=== PATIENT | female | born 1985 | race Caucasian/White ===

== ENCOUNTER 2022-09-01 16:30 | Outpatient (REF) | payer OTHER, SELFPAY | END 2022-09-01 16:31 | disposition home or self-care (01) | LOC: LAB 16:30 | PROVIDERS: Visit Provider Obstetrics & Gynecology | DX: N89.8 Other specified noninflammatory disorders of vagina (principal) | CPT/HCPCS: 88305 ==

== ENCOUNTER 2022-09-01 20:27 | Outpatient (REF) | payer OTHER, SELFPAY ==
[2022-09-10 13:08] LABS: Age Gdln ACOG Testing Note (.); HPV Aptima Negative (Negative); IGP, Aptima HPV, rfx 16/18,45 Note (.)
== END 2022-09-01 20:28 | disposition home or self-care (01) ==
LOC: LAB 20:27
PROVIDERS: Visit Provider Physician Assistant
DX: Z01.419 Encounter for gynecological examination (general) (routine) without abnormal findings (principal)
CPT/HCPCS: 87624; G0145

== ENCOUNTER 2023-10-20 19:05 | Outpatient (REF) | payer OTHER, SELFPAY ==
--- OUTSIDE RECORDS SUMMARY | 2023-10-20 19:11 | XMS_ITS | CCD ---
Author Organization [facility] Care Team Providers Care Machine Coremaker Name Role Phone Rafaela Arguello Unavailable [place] [id number], [facility] Unavailable Unavailable Rafaela Arguello Unavailable Unavailable Zackary Gomez E Unavailable Unavailable Rafaela Arguello E Unavailable Unavailable Rafaela Arguello E Unavailable Unavailable Zackary Gomez E Unavailable Unavailable Rafaela Arguello E Unavailable Unavailable Unavailable KRISTEN, DR DRIVER Admitting Unavailable KRISTEN, DR DRIVER Primary Care Unavailable KRISTEN, DR DRIVER Attending Unavailable KRISTEN, DR DRIVER Consulting Unavailable NarNoemi strauss Consulting Unavailable KRISTEN, DR DRIVER Admitting Unavailable KRISTEN, DR DRIVER Attending Unavailable KRISTEN, DR DRIVER Consulting Unavailable REQUEST, DR NONE LISTED Primary Care Unavaila ble KRISTEN, DR DRIVER Primary Care Unavailable KRISTEN, DR DRIVER Admitting Unavailable KRISTEN, DR DRIVER Attending Unavailable KRISTEN, DR DRIVER Consulting Unavailable REQUEST, DR NONE LISTED Primary Care Unavaila ble KRISTEN, DR DRIVER Admitting Unavailable KRISTEN, DR DRIVER Attending Unavailable KRISTEN, DR DRIVER Consulting Unavailable AGUBOSIM, ARYA Consulting Unavailable BEL BRICENO Consulting Unavailable DORKOSKGRAZYNA PISANO Consulting Unavailable KRISTEN, DR DRIVER Admitting Unavailable KRISTEN, DR DRIVER Attending Unavailable KRISTEN, DR DRIVER Consulting Unavailable KRISTEN, DR DRIVER Primary Care Unavailable Danielle Infante Primary Care Provider DO Danielle Infante Primary Care Provider [phone] DO Kp Alvares Attending Provider [phone] Hema, Ms. Rafaela Schultz Referring Aisha Arguello, Ms. Rafaela Schultz Primary Care Aisha Arguello, Ms. Rafaela Schultz Attending Aisha Arguello, Ms. Rafaela Schultz Primary Care Aisha Arguello, MsJonathan Schultz Attending Aisha Arguello, MsJonathan Schultz Referring Azaeli labtaryn Arguello, MsJonathan Schultz Referring Azaeli labtaryn Arguello, MsJonathan Schultz Primary Care Aisha Arguello, Ms. Rafaela Schultz Attending Aisha Arguello, MsJonathan Schultz Referring Aisha Arguello, MsJonathan Schultz Primary Care Aisha Aguilar, Luz Coombs Attending Unavailable Hema, Ms. Rafaela Schultz Primary Care Aisha Aguilar, Luz Malvin Attending Unavailable Lauren, Luz Malvin Referring Unavailable Bolivar Sherman Unavailable DO Danielle Infante Primary Care Provider [phone] SCOTT Sherman Attending Provider KAROLINA MAN Referring Unavailable DONOVAN, KAROLINA Cota Primary Care Unavailable DONOVAN, KAROLINA Cota Referring Unavailable DONOVAN, KAROLINA Cota Primary Care Unavailable Donovan SORIA, Karolina Cota Primary Care Provider Jhonny Lee MD Unavailable MATT STAPLETON Attending Unavailable Donovan , Karolina Cota Unavailable KAROLINA MAN Attending Unavailable DONOVAN, KAROLINA Cota Primary Care Unavailable LUIS MANUEL, JHONNY Schroeder Attending Unavailable KAROLINA MAN Referring Unavailable DONOVAN, KAROLINA Cota Primary Care Unavailable DONOVAN, KAROLINA Cota Attending Unavailable DONOVAN, KAROLINA Cota Primary Care Unavailable LUIS MANUEL, JHONNY Schroeder Attending Unavailable DONOVAN, KAROLINA Cota Primary Care Unavailable JHONNY LEE Attending Unavailable KAROLINA MAN Primary Care Unavailable Danielle Infante DO Primary Care [facility] ROULA BLEDSOE Attending Unavailable DANIELLE INFANTE Primary Care LAYNE Reyes Attending Provider NO FAMILY, PHYSICIAN Primary Care Unavailable Swetha Andersen Attending Unavailable Swetha Andersen Admitting Unavailable Allergies Allergy Classification Reported Allergen(s) Allergy Type Date of Onset Reaction(s) Facility Cephalosporins (antibiotic) (1 source) loracarbef Drug Allergy [facility] Work Phone: Latex (1 source) natural latex rubber Substance Allergy [facility] Work Phone: NSAIDs (1 source) NSAIDs Drug Allergy [facility] Work Phone: (20 sources) loracarbef; Translations: [loracarbef] Drug Allergy 3 Unknown [facility] 2 Repository (20 sources) natural latex rubber; Translations: [LATEX] Allergy to substance (finding) 3 Rash [facility] 2 Repository (20 sources) NSAIDs; Translations: [NSAIDs] Allergy to drug (finding) Unknown [facility] Work Phone: (20 sources) Animal dander - Cats Allergy to substance (finding) [facility] [facility] Work Phone: (2 sources) Latex Drug allergy (disorder) [facility] Repository (1 source) loracarbef Drug Allergy [facility] Repository (3 sources) NSAIDs; Translations: [NSAIDS (NON-STEROIDAL ANTI-INFLAMMATO RY DRUG)] Drug allergy (disorder) 7 [facility] Repository (6 sources) Non-steroidal anti-inflammato ry agent Propensity to adverse reactions to drug 7 Other: See Comments, Other [facility] (7 sources) Latex Propensity to adverse reactions 3 Unknown, Rash [facility]ev[facility] Other (8 sources) CAT DANDER; Translations: [CAT DANDER] Propensity to adverse reactions to drug (disorder) 3 Unknown, Itching [facility] 2 Repository (3 sources) NSAIDS (Non-Steroidal Anti-Inflamma; Translations: [NSAIDS (Non-Steroidal Anti-Inflamma] Allergy to substance 4 Itching [facility] (1 source) Latex Drug allergy (disorder) 4 [facility] Repository Medications Current Medications Medication Drug Class(es) Dates Sig (Normalized) Sig (Original) buPROPion (20 sources) Aminoketone Start: 09-05-2023 Bupropion Hcl Active MG PO September 05, 2023 12:00am Start: 10-08-2021 End: 08-31-2023 take 1 tablet by mouth once daily in the morning buPROPion XL (Wellbutrin XL) 150 mg 24 hr tablet Indications: Anxiety Take 1 tablet (150 mg) by mouth once daily in the morning. Do not crush, chew, or split. 90 tablet 3 03/04/2023 08/31/2023 Active Start: 10-08-2021 take 1 tablet by didi th once daily buPROPion HCl ER (XL) 300 MG Oral Tablet Extended Release 24 Hour TAKE 1 TABLET BY MOUTH EVERY DAY Quantity: 90 Refills: 2 Ordered: 17-Mar-2022 Rafaela Mejía Start : 08-Oct-2021 Active take 1 tablet by didi th twice daily Wellbutrin 100 MG 1 tablet Orally Twice a day Active cephalexin 500 mg oral capsule (2 sources) Cephalosporin Antibacterial Start: 09-05-2023 take 500 mg by mouth twice daily Cephalexin Active 500 MG PO Twice daily 14 7 September 05, 2023 12:00am cholecalciferol 0.05 mg oral capsule (6 sources) Vitamin D take 1 capsule by mouth in the morning cholecalciferol (Vitamin D-3) 50 mcg (2,000 unit) capsule Take 1 capsule (50 mcg) by mouth early in the morning.. Active 24 hr dexmethylphenidate hydrochloride 10 mg extended release oral capsule (20 sources) Central Nervous System Stimulant Start: 09-05-2023 Dexmethylphenidate Active MG PO September 05, 2023 12:00am Start: 02-19-2023 End: 10-20-2023 take 1 capsule by mouth once daily dexmethylphenidate XR (FOCALIN XR) 10 mg biphasic capsule TAKE 1 CAPSULE BY MOUTH EVERY DAY DO NOT CRUSH/CHEW/SPLIT 0 08/07/2023 Active Start: 02-19-2023 End: 10-20-2023 take 1 tablet by mouth twice daily dexmethylphenidate (Focalin) 5 mg tablet Indications: Attention deficit hyperactivity disorder (ADHD), predominantly inattentive type Take 1 tablet (5 mg) by mouth 2 times a day. 1-0 at 3 pm, and 6 pm as needed. Do not start before June 25, 2023. 60 tablet 06/25/2023 07/22/2023 Discontinued (Reorder) drospirenone / Ethinyl Estradiol / levomefolate (4 sources) Progestin, Estrogen Start: 07-18-2010 End: 03-04-2023 take 1 tablet by mouth once daily drospirenone-e.estradioL-lm.FA (Lalitha Roberts) 3-0.02-0.451 mg (24) (4) Take 1 tablet by mouth once daily. 0 07/18/2010 03/04/2023 Discontinued (Med List Cleanup) Start: 07-18-2010 take 1 tablet by didi th once daily drospirenone-e.estradioL-lm.FA (Lalitha Roberts) 3-0.02-0.451 mg (24) (4) Take 1 tablet by mouth once daily. 0 07/18/2010 Active Start: 07-18-2010 take 1 tablet by didi th once daily drospir-eth estra-levomefol Ca (BEYAZ) 3-0.02-0.451 mg (24) ORAL Tab Take 1 tablet by mouth once daily. 0 07/18/2010 Active Comment on above: Take 1 tablet by didi th once daily. MULTI-VITAMIN ORAL (2 sources) MULTI-VITAMIN OR AL Take by mouth. 0 Active Comment on above: Take by mouth. predniSONE 20 mg oral tablet (1 source) Start: 3 take 1 tablet by mouth every twelve hours predniSONE 20 MG 1 tablet Orally twice a day for 7 Jun, Active traZODone hydrochloride 50 mg oral tablet (20 sources) Serotonin Reuptake Inhibitor Start: 2 End: 4 take 1 tablet by mouth every twenty-four hours as needed traZODone (DESYREL) 50 mg tablet Take 50 mg by mouth at bedtime as needed. 0 10/02/2021 Active Comment on above: Take 50 mg by mouth at bedtime as needed. Completed/Discontinued Medications Medication Drug Class(es) Dates Sig (Normalized) Sig (Original) albuterol 0.83 mg/ml inhalant solution (4 sources) beta2-Adrenergic Agonist Start: 05-16-2019 Albuterol Sulfate (2.5 MG/3ML) 0.083% Inhalation Nebulization Solution USE 1 UNIT DOSE EVERY 4-6 HOURS NEEDED FOR WHEEZING . Quantity: 1 Refills: 3 Rafaela Bridges Start : 16-May-2019 Active 30 x 3 ML Plas Cont Start: 05-16-2019 take 1-2 puff(s) by inhalation every four to six hours as needed Ventolin HFA 108 (90 Base) MCG/ACT Inhalation Aerosol Solution INHALE 1 TO 2 PUFFS EVERY 4 TO 6 HOURS NEEDED. Quantity: 1 Refills: 4 Rafaela Bridges Start : 16-May-2019 Active 8 GM Inhaler azithromycin 250 mg oral tablet (2 sources) Macrolide Antimicrobial Start: 05-16-2019 take 2 tablets by mouth once daily, then take 1 tablet by mouth, then take 1 tablet by mouth once daily Azithromycin 250 MG Oral Tablet TAKE 2 TABLETS ON DAY 1 THEN TAKE 1 TABLET A DAY FOR 4 DAYS. Quantity: 1 Refills: 0 Rafaela Bridges Start : 16-May-2019 Active 6 Tablet Pack Probiotic CAPS (3 sources) Probiotic CAPS Refills: 0 Active Multiple Vitamins Oral Tablet (4 sources) Start: 07-17-2017 take 1 tablet by mouth once daily Multiple Vitamins Oral Tablet TAKE 1 TABLET DAILY. Refills: 0 Start : 17-Jul-2017 Active Multiple Vitamins Oral Tablet (20 sources) Start: 07-17-2017 take 1 tablet by mouth once daily Multiple Vitamins Oral Tablet TAKE 1 TABLET DAILY. Quantity: 0 Refills: 0 Ordered: 17-Jul-2017 DO Start : 17-Jul-2017 Active Start: 07-17-2017 take 1 tablet by didi th once daily Multiple Vitamins Oral Tablet TAKE 1 TABLET DAILY. 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] Episodic Anxiety disorders (20 sources) Anxiety; Translations: [Anxiety state, unspecified] Onset: 11-28-2022 11-28-2022 Chronic Attention-deficit, conduct, and disruptive behavior disorders (3 sources) Attention deficit hyperactivity disorder, predominantly inattentive type; Translations: [Attention-deficit hyperactivity disorder, predominantly inattentive type] 02-19-2023 Chronic Attention-deficit, conduct, and disruptive behavior disorders (2 sources) Attention-deficit hyperactivity disorder, predominantly inattentive type; Translations: [Attention-deficit hyperactivity disorder, predominantly inattentive type] Onset: 07-22-2023 Chronic Endometriosis (1 source) Endometriosis of pelvic peritoneum; Translations: [ENDOMETRIOSIS OF 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 Chronic Esophageal disorders (5 sources) Gastroesophageal reflux disease; Translations: [Gastro-esophageal reflux disease without esophagitis] Onset: 08-28-2022 02-10-2023 Chronic Melanomas of skin (13 sources) H/O Malignant melanoma; Translations: [Personal history of malignant melanoma of skin] Onset: 09-15-2019 Episodic Miscellaneous mental health disorders (1 source) Globus sensation; Translations: [Other somatoform disorders] Chronic Nutritional deficiencies (20 sources) Vitamin D deficiency; Translations: [Unspecified vitamin D deficiency] Onset: 11-28-2022 11-28-2022 Chronic Other and unspecified benign neoplasm (7 sources) Fibroadenoma of breast; Translations: [Benign neoplasm of breast] Episodic Other and unspecified benign neoplasm (8 sources) Multiple benign melanocytic nevi ; Translations: [Melanocytic nevi, unspecified] Onset: 09-15-2019 Episodic Other and unspecified benign neoplasm (2 sources) Senile angioma; Translations: [Hemangioma of skin and subcutaneous tissue] Episodic Other and unspecified benign neoplasm (2 sources) Dermatofibroma; Translations: [Other benign neoplasm of skin, unspecified] Episodic Other and unspecified benign neoplasm (1 source) Lipoma (clinical); Translations: [Lipoma] Episodic Other circulatory disease (5 sources) History of clinical finding in subject; Translations: [Personal history of other diseases of circulatory system] Episodic Other connective tissue disease (1 source) Pain in right foot Episodic Other female genital disorders (20 sources) Female deep pain on intercourse; Translations: [Dyspareunia] Onset: 11-28-2022 11-28-2022 Chronic Other female genital disorders (5 sources) Unspecified dyspareunia; Translations: [UNSPECIFIED DYSPAREUNIA] Onset: 07-11-2021 Chronic Other nervous system disorders (3 sources) Disorder of brain; Translations: [Encephalopathy, unspecified] 02-19-2023 Chronic Other nutritional; endocrine; and metabolic disorders (2 sources) Overweight; Translations: [Overweight] Chronic Other nutritional; endocrine; and metabolic disorders (1 source) Obese class I; Translations: [Body mass index (BMI) 33.0-33.9, adult] Chronic Other skin disorders (2 sources) Lentiginosis; Translations: [Other melanin hyperpigmentation] Episodic Other upper respiratory disease (4 sources) Chronic nasopharyngitis; Translations: [Chronic nasopharyngitis] Onset: 08-28-2022 02-10-2023 Chronic Other upper respiratory infections (1 source) Acute pharyngitis; Translations: [Sore throat (viral) NOS] Episodic Residual codes; unclassified (2 sources) Insomnia co-occurrent and due to medical condition; Translations: [Insomnia due to medical condition] 04-27-2023 Chronic Residual codes; unclassified (1 source) Acquired absence of other specified parts of digestive tract; Translations: [ACQ ABSENCE OTH PART DIGESTV TRACT] Onset: 07-17-2021 Episodic Residual codes; unclassified (1 source) Generalized aches and pains; Translations: [Body aches] Episodic Spondylosis; intervertebral disc disorders; other back problems (20 sources) Neck pain; Translations: [Cervicalgia] Episodic Urinary tract infections (4 sources) Urinary tract infectious disease; Translations: [Urinary tract infection, site not specified] 09-05-2023 Episodic Past or Other Problems Problem Classification Problem Date Documented Da te Episodic/Chronic Abdominal pain (20 sources) Pain in female pelvis; Translations: [Unspecified symptom associated with female genital organs] Onset: 06-21-2021 Episodic Acute bronchitis (20 sources) Acute bronchitis; Translations: [Acute bronchitis] Onset: 11-28-2022 11-28-2022 Episodic Diseases of mouth; excluding dental (4 sources) Sialoadenitis; Translations: [Sialoadenitis, unspecified] Onset: 08-28-2022 02-10-2023 Episodic E Codes: Other specified and classifiable (7 sources) Exposure to tanning bed, sequela; Translations: [Late effects of other accidents] Onset: 09-15-2019 Episodic Genitourinary symptoms and ill-defined conditions (20 sources) Increased frequency of urination; Translations: [Urinary frequency] Onset: 09-06-2021 11-28-2022 Episodic Neoplasms of unspecified nature or uncertain behavior (20 sources) 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; Translations: [Neoplasm of uncertain behavior of lip, oral cavity, and pharynx] Onset: 11-28-2022 11-28-2022 Episodic Nonmalignant breast conditions (20 sources) Breast lump; Translations: [Lump or mass in breast] Onset: 11-28-2022 Episodic Other and unspecified benign neoplasm (6 sources) Skin lesion; Translations: [Hemangioma of skin and subcutaneous tissue] Onset: 09-15-2019 09-15-2019 Episodic Other and unspecified benign neoplasm (6 sources) Fibroadenoma of right breast; Translations: [Benign neoplasm of right breast] Onset: 11-28-2022 11-28-2022 Episodic Other connective tissue disease (17 sources) Pelvic floor dysfunction; Translations: [Pelvic muscle wasting] Onset: 11-28-2022 11-28-2022 Episodic Other connective tissue disease (1 source) Other specified disorders of muscle; Translations: [Other specified disorders of muscle] Onset: 09-06-2021 Episodic Other nutritional; endocrine; and metabolic disorders (20 sources) Overweight; Translations: [Overweight] Onset: 11-28-2022 11-28-2022 Episodic Other screening for suspected conditions (not mental disorders or infectious disease) (20 sources) Mammography abnormal; Translations: [Abnormal mammogram, unspecified] Onset: 03-25-2021 Episodic Other skin disorders (20 sources) Mass of neck; Translations: [Swelling, mass, or lump in head and neck] Onset: 11-28-2022 11-28-2022 Episodic Other skin disorders (20 sources) Lesion of face; Translations: [Unspecified disorder of skin and subcutaneous tissue] Onset: 11-28-2022 11-28-2022 Episodic Other skin disorders (14 sources) Localized swelling, mass and lump, right upper limb; Translations: [Mass of right axilla] Onset: 11-28-2022 11-28-2022 Episodic Other skin disorders (6 sources) Solar lentigo; Translations: [Other melanin hyperpigmentation] Onset: 09-15-2019 09-15-2019 Episodic Other skin disorders (6 sources) Skin tag; Translations: [Other hypertrophic disorders of the skin] Onset: 09-15-2019 09-15-2019 Episodic Other skin disorders (4 sources) Lesion of face; Translations: [Facial lesion] Residual codes; unclassified (20 sources) Insomnia; Translations: [Insomnia, unspecified] Onset: 11-28-2022 11-28-2022 Episodic Skin and subcutaneous tissue infections (20 sources) Cellulitis; Translations: [Cellulitis and abscess of unspecified sites] Onset: 11-28-2022 11-28-2022 Episodic Unclassified (6 sources) Onset: 12-03-2022 Resolved: 07-22-2023 12-03-2022 NEGATED: Highlighted row has not occurred!Residual codes; unclassified (20 sources) Disease Episodic Results Test Name Value Interpretation Reference Range Facility Urine Cultureon 09-05-2023 Bacteria identified Cx Nom (U) <9,000 colonies/ml mixed bacterial skin contaminants 2 Days PERFORMED BY: [place] [address] PATHOLOGIST PICKED EDGE SEWING MACHINE OPERATOR DAVID CHILD M.D. Normal [facility] Comment on above: Performed By: #### C UU #### [address] CNOVon 09-01-2023 CNOV Office Visit (AMDERM ) MICHAEL WELLER ([id number]) 1985 F Date Time Provider Department 09/01/23 11:30 AM ROULA BLEDSOE AMDERM During your visit today, we recorded the following information about you: Roula Bledsoe APRN.CNP 09/01/2023 11:42 AM Signed SKIN EXAM ESTABLISHED LAST OFFICE VISIT: 10/17/2021 CC: This patient is a 37 year old female. Patient presents with: Full Body Skin Check HPI: Location: left lower leg Appearance (size, shape, color): pink spot Duration: at least 2 years Symptoms (growing, itching, bleeding, tender): change in color Treatments: none Was noted as DF at last OV Location: right 3rd toe Appearance (size, shape, color): mole Duration: a few months Symptoms (growing, itching, bleeding, tender): new Treatments: none -Personal history of skin cancer: Yes 08/2015 Melanoma: right lower leg -History of blistering sunburns:Yes -Family history of skin cancer: No -Personal history of tanning bed use: Yes, excessive use during teenage years SOC: Social History Tobacco Use Smoking status: Never Substance Use Topics Alcohol use: Yes Comment: occasional Drug use: No MEDS: Current outpatient prescriptions: Current Outpatient Medications on File Prior to Visit Medication Sig buPROPion XL (WELLBUTRIN XL) 150 mg 24 hr tablet TAKE 1 TABLET BY MOUTH ONCE DAILY IN THE MORNING. DO NOT CRUSH, CHEW, OR SPLIT. dexmethylphenidate XR (FOCALIN XR) 10 mg biphasic capsule TAKE 1 CAPSULE BY MOUTH EVERY DAY DO NOT CRUSH/CHEW/SPLIT MULTI-VITAMIN ORAL Take by mouth. traZODone (DESYREL) 50 mg tablet Take 50 mg by mouth at bedtime as needed. drospir-eth estra-levomefol Ca (BEYAZ) 3-0.02-0.451 mg (24) ORAL Tab Take 1 tablet by mouth once daily. No current facility-administered medications on file prior to visit. ALLERGY: ALLERGIES Allergen Reactions Nsaids (Non-Steroid* Other: See Comments Pt states adverse reaction of ulcers occurs advised not to take REVIEW OF SYSTEMS: Patient feels well and denies any recent fevers, chills, or nightsweats. PHYSICAL EXAM: The patient is a pleasant female in no distress. Patient appears healthy, well developed, well nourished and in otherwise good health. Alert and oriented x 3. A skin exam was done of the Scalp, face, ears, neck, chest, back, abdomen, bilateral upper extremities, bilateral lower extremities, buttocks, nails and hair. Robert Skin Type: II IMPRESSION: Left medial knee and left lateral lower leg light brown firm sq nodule Densely scattered light lamas macules noted on all sun exposed areas Regular and symmetric hyperpigmented macules and papules throughout Small becerril red papules throughout A/P: (D23.9) Dermatofibroma - also known as histiocytomas - common benign skin lesions - often times arises at site of trauma (bug bite etc) - may be tender or pruritic - very common on women's legs - common to have multiple Treatment: - no treatment is needed unless symptomatic (L81.4) Solar lentigines (D22.9) Multiple benign nevi (D18.01) Angiomas of skin -Discussed etiology and educated. -Reassured benign nature. -Continue to monitor (Z85.820) Hx of malignant melanoma - Reassured no obvious evidence of recurrence today - Continue monthly self exams - Recommend every 12 month skin exams - Contact office with any suspicious lesions in between follow up I counseled the patient after the exam about the ABCDEs of nevus evaluation, pre-cancer,skin cancer surveillance with monthly self skin exams. Sunscreen / sunblock protection reviewed. The patient is seen and examined by Roula Bledsoe CNP and the following reflects his/her service. Scribed by Karolina Alcantara LPN /Gini Hanna MA I agree with the Chief Complaint, ROS, and Past Histories independently gathered by the clinical application support technician and the remaining scribed note accurately describes my personal service to the patient. Roula Bledsoe APRN.CNP September 01, 2023 11:26 AM Medical Decision Making: Problems: Moderate: 2+ stable chronic illnesses Risk: Low: Low risk from testing/treatment Medical Decision Making Level: 3 - Low Allergies As of Date: 09/01/2023 Noted Allergy Reaction NSAIDS (NON-STEROIDAL ANTI-INFLAM* 7 14 - Other: See Comments Comments: Pt states adverse reaction of ulcers occurs advised not to take Date Reviewed: 09/01/2023 Reviewed by: Roula Bledsoe APRN.CNP - Fully Assessed Reason for Visit: Full Body Skin Check [1445] Primary Visit Diagnosis:Dermatofibr anna [D23.9] Other Visit Diagnoses:Lentigines [L81.4] Multiple benign nevi [D22.9] 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 DO NOT CRUSH, CHEW, OR SPLIT. - dexmethylphenidate (more content not included)... Normal [facility] Drugs of abuse screen W Refl ex confirm panel (U)on 02-19-2023 Amphetamines Screen Ql (U) Negative Normal Presumptive Negative [facility] Comment on above: Order Comment: Drug screen results are presumptive and should not be used to assess compliance with prescribed medication. Definitive confirmatory drug testing has been added to this sample for any positive screen result and will be reported separately. Toxicology screening results are reported qualitatively. The concentration must be greater than or equal to the cutoff to be reported as positive. The concentration at which the screening test can detect an individual drug or metabolite varies. The absence of expected drug(s) and/or drug metabolite(s) may indicate non-compliance, inappropriate timing of specimen collection relative to drug administration, poor drug absorption, diluted/adulterated urine, or limitations of testing. For medical purposes only; not valid for forensic use. Interpretive questions should be directed to the laboratory medical directors. Result Comment: CUTO FF LEVEL: 500 NG/ML Cross-reactivity has been reported with high concentrations of the following drugs: buproprion, chloroquine, chlorpromazine, ephedrine, mephentermine, fenfluramine, phentermine, phenylpropanolamine, pseudoephedrine, and propranolol. Performed By: #### 8 7428-9 #### ALEJANDRO RAMOS ([id number]) [facility] ([facility]) [address] [place] [address] Barbiturates Screen Ql (U) Negative Normal Presumptive Negative [facility] Comment on above: Order Comment: Drug screen results are presumptive and should not be used to assess compliance with prescribed medication. Definitive confirmatory drug testing has been added to this sample for any positive screen result and will be reported separately. Toxicology screening results are reported qualitatively. The concentration must be greater than or equal to the cutoff to be reported as positive. The concentration at which the screening test can detect an individual drug or metabolite varies. The absence of expected drug(s) and/or drug metabolite(s) may indicate non-compliance, inappropriate timing of specimen collection relative to drug administration, poor drug absorption, diluted/adulterated urine, or limitations of testing. For medical purposes only; not valid for forensic use. Interpretive questions should be directed to the laboratory medical directors. Result Comment: CUTO FF LEVEL: 200 NG/ML Performed By: #### 8 7428-9 #### ALEJANDRO RAMOS ([id number]) [facility] ([facility]) [address] [place] [address] Benzodiazepines Ql (U) Negative Normal Presumptive Negative [facility] Comment on above: Order Comment: Drug screen results are presumptive and should not be used to assess compliance with prescribed medication. Definitive confirmatory drug testing has been added to this sample for any positive screen result and will be reported separately. Toxicology screening results are reported qualitatively. The concentration must be greater than or equal to the cutoff to be reported as positive. The concentration at which the screening test can detect an individual drug or metabolite varies. The absence of expected drug(s) and/or drug metabolite(s) may indicate non-compliance, inappropriate timing of specimen collection relative to drug administration, poor drug absorption, diluted/adulterated urine, or limitations of testing. For medical purposes only; not valid for forensic use. Interpretive questions should be directed to the laboratory medical directors. Result Comment: CUTO FF LEVEL: 200 NG/ML Performed By: #### 8 7428-9 #### ALEJANDRO SUERO RIO REN ([id number]) [facility] ([facility]) [address] [place] [address] Benzoylecgonine Screen Ql (U) Negative Normal Presumptive Negative [facility] Comment on above: Order Comment: Drug screen results are presumptive and should not be used to assess compliance with prescribed medication. Definitive confirmatory drug testing has been added to this sample for any positive screen result and will be reported separately. Toxicology screening results are reported qualitatively. The concentration must be greater than or equal to the cutoff to be reported as positive. The concentration at which the screening test can detect an individual drug or metabolite varies. The absence of expected drug(s) and/or drug metabolite(s) may indicate non-compliance, inappropriate timing of specimen collection relative to drug administration, poor drug absorption, diluted/adulterated urine, or limitations of testing. For medical purposes only; not valid for forensic use. Interpretive questions should be directed to the laboratory medical directors. Result Comment: CUTO FF LEVEL: 150 NG/ML Performed By: #### 8 7428-9 #### ALEJANDRO RAMOS ([id number]) [facility] ([facility]) [address] [place] [address] Cannabinoids Screen Ql (U) Negative Normal Presumptive Negative [facility] Comment on above: Order Comment: Drug screen results are presumptive and should not be used to assess compliance with prescribed medication. Definitive confirmatory drug testing has been added to this sample for any positive screen result and will be reported separately. Toxicology screening results are reported qualitatively. The concentration must be greater than or equal to the cutoff to be reported as positive. The concentration at which the screening test can detect an individual drug or metabolite varies. The absence of expected drug(s) and/or drug metabolite(s) may indicate non-compliance, inappropriate timing of specimen collection relative to drug administration, poor drug absorption, diluted/adulterated urine, or limitations of testing. For medical purposes only; not valid for forensic use. Interpretive questions should be directed to the laboratory medical directors. Result Comment: CUTO FF LEVEL: 50 NG/ML Performed By: #### 8 7428-9 #### ALEJANDRO ALINE REN ([id number]) [facility] ([facility]) [address] [place] [address] fentaNYL+Norfentanyl Screen Ql (U) Negative Normal Presumptive Negative [facility] Comment on above: Order Comment: Drug screen results are presumptive and should not be used to assess compliance with prescribed medication. Definitive confirmatory drug testing has been added to this sample for any positive screen result and will be reported separately. Toxicology screening results are reported qualitatively. The concentration must be greater than or equal to the cutoff to be reported as positive. The concentration at which the screening test can detect an individual drug or metabolite varies. The absence of expected drug(s) and/or drug metabolite(s) may indicate non-compliance, inappropriate timing of specimen collection relative to drug administration, poor drug absorption, diluted/adulterated urine, or limitations of testing. For medical purposes only; not valid for forensic use. Interpretive questions should be directed to the laboratory medical directors. Result Comment: CUTO FF LEVEL: 5 NG/ML Performed By: #### 8 7428-9 #### ALEJANDRO SUERO RIO REN ([id number]) [facility] ([facility]) [address] [place] [address] [place] [address] Opiates Screen Ql (U) Negative Normal Presum ptive Negative [facility] Comment on above: Order Comment: Drug screen results are presumptive and should not be used to assess compliance with prescribed medication. Definitive confirmatory drug testing has been added to this sample for any positive screen result and will be reported separately. Toxicology screening results are reported qualitatively. The concentration must be greater than or equal to the cutoff to be reported as positive. The concentration at which the screening test can detect an individual drug or metabolite varies. The absence of expected drug(s) and/or drug metabolite(s) may indicate non-compliance, inappropriate timing of specimen collection relative to drug administration, poor drug absorption, diluted/adulterated urine, or limitations of testing. For medical purposes only; not valid for forensic use. Interpretive questions should be directed to the laboratory medical directors. Result Comment: CUTO FF LEVEL: 300 NG/ML The opiate screen does not detect fentanyl, meperidine, or tramadol. Oxycodone is not consistently detected (refer to Oxycodone Screen, Urine result). Performed By: #### 8 7428-9 #### ALEJANDRO RAMOS ([id number]) [facility] ([facility]) [address] [place] [address] oxyCODONE+oxyMORphone Screen Ql (U) Negative Normal Presumptive Negative [facility] Comment on above: Order Comment: Drug screen results are presumptive and should not be used to assess compliance with prescribed medication. Definitive confirmatory drug testing has been added to this sample for any positive screen result and will be reported separately. Toxicology screening results are reported qualitatively. The concentration must be greater than or equal to the cutoff to be reported as positive. The concentration at which the screening test can detect an individual drug or metabolite varies. The absence of expected drug(s) and/or drug metabolite(s) may indicate non-compliance, inappropriate timing of specimen collection relative to drug administration, poor drug absorption, diluted/adulterated urine, or limitations of testing. For medical purposes only; not valid for forensic use. Interpretive questions should be directed to the laboratory medical directors. Result Comment: CUTO FF LEVEL: 100 NG/ML This test will accurately detect both oxycodone and oxymorphone. Performed By: #### 8 7428-9 #### ALEJANDRO RAMOS ([id number]) [facility] ([facility]) [address] [place] [address] Phencyclidine Ql (U) Negative Normal Presump tive Negative [facility] Comment on above: Order Comment: Drug screen results are presumptive and should not be used to assess compliance with prescribed medication. Definitive confirmatory drug testing has been added to this sample for any positive screen result and will be reported separately. Toxicology screening results are reported qualitatively. The concentration must be greater than or equal to the cutoff to be reported as positive. The concentration at which the screening test can detect an individual drug or metabolite varies. The absence of expected drug(s) and/or drug metabolite(s) may indicate non-compliance, inappropriate timing of specimen collection relative to drug administration, poor drug absorption, diluted/adulterated urine, or limitations of testing. For medical purposes only; not valid for forensic use. Interpretive questions should be directed to the laboratory medical directors. Result Comment: CUTO FF LEVEL: 25 NG/ML Cross-reactivity has been reported with dextromethorphan. Performed By: #### 8 7428-9 #### ALEJANDRO RAMOS ([id number]) [facility] ([facility]) [address] [place] [address] BI MAMMO BILATERAL DIAGNOSTI C TOMOSYNTHESISon 12-19-2022 BI MAMMO BILATERAL DIAGNOSTIC TOMOSYNTHESIS Interpreted By: Mohan Romano and Avery Ross STUDY: BI MAMMO BILATERAL DIAGNOSTIC TOMOSYNTHESIS; BI US BREAST LIMITED LEFT; 12/19/2022 9:42 am; 12/19/2022 10:52 am ACCESSION NUMBER(S): [id number]; [id number] ORDERING CLINICIAN: KAROLINA MAN INDICATION: Annual screening and patient reports tender palpable left axillary lump for 1 month. Benign right breast core biopsy. COMPARISON: 12/19/2022, 06/21/2021, 07/06/2018, 01/08/2018. FINDINGS: MAMMOGRAPHY: 2D and tomosynthesis images were reviewed at 1 mm slice thickness. Density: The breast tissue is heterogeneously dense, which may obscure small masses. A radiopaque marker was placed on the skin at the site of the patient's palpable abnormality in the left axillary region. No focal mammographic abnormality is seen underneath the radiopaque marker. A stable irregular circumscribed equal density mass with coarse calcifications and migrated tissue marker is seen in the superolateral right breast at middle depth. No suspicious masses or calcifications are identified in either breast. ULTRASOUND: A targeted ultrasound in the area of the tender palpable left axillary abnormality was performed by a registered flame burner. No sonographic abnormalities are seen in the area of the patient's reported palpable lump or pain. 3 morphologically normal lymph nodes are incidentally seen. IMPRESSION: 1. No mammographic or targeted sonographic abnormality to explain the patient's palpable left axillary abnormality. Clinical follow-up is recommended. 2. No mammographic evidence of malignancy. The patient can begin mammographic annual screening at age 40 or sooner if she is considered high risk. BI-RADS CATEGORY: BI-RADS Category: 2 Benign. Recommendation: Clinical follow-up. Recommended Date: N/A. Laterality: Left. For any future breast imaging appointments, please call [phone] ([phone]). MACRO: None Signed by: Mohan Romano 12/19/2022 11:32 AM Dictation workstation: [id number] [facility] BI US BREAST LIMITED LEFTon 12-19-2022 BI US BREAST LIMITED LEFT Interpreted By: Mohan Romano and Avery Ross STUDY: BI MAMMO BILATERAL DIAGNOSTIC TOMOSYNTHESIS; BI US BREAST LIMITED LEFT; 12/19/2022 9:42 am; 12/19/2022 10:52 am ACCESSION NUMBER(S): [id number]; [id number] ORDERING CLINICIAN: KAROLINA MAN INDICATION: Annual screening and patient reports tender palpable left axillary lump for 1 month. Benign right breast core biopsy. COMPARISON: 12/19/2022, 06/21/2021, 07/06/2018, 01/08/2018. FINDINGS: MAMMOGRAPHY: 2D and tomosynthesis images were reviewed at 1 mm slice thickness. Density: The breast tissue is heterogeneously dense, which may obscure small masses. A radiopaque marker was placed on the skin at the site of the patient's palpable abnormality in the left axillary region. No focal mammographic abnormality is seen underneath the radiopaque marker. A stable irregular circumscribed equal density mass with coarse calcifications and migrated tissue marker is seen in the superolateral right breast at middle depth. No suspicious masses or calcifications are identified in either breast. ULTRASOUND: A targeted ultrasound in the area of the tender palpable left axillary abnormality was performed by a registered flame burner. No sonographic abnormalities are seen in the area of the patient's reported palpable lump or pain. 3 morphologically normal lymph nodes are incidentally seen. IMPRESSION: 1. No mammographic or targeted sonographic abnormality to explain the patient's palpable left axillary abnormality. Clinical follow-up is recommended. 2. No mammographic evidence of malignancy. The patient can begin mammographic annual screening at age 40 or sooner if she is considered high risk. BI-RADS CATEGORY: BI-RADS Category: 2 Benign. Recommendation: Clinical follow-up. Recommended Date: N/A. Laterality: Left. For any future breast imaging appointments, please call [phone] ([phone]). MACRO: None Signed by: Mohan Romano 12/19/2022 11:32 AM Dictation workstation: [id number] [facility] DBT Breast - bilateral diagn osticon 12-19-2022 Radiology Study observation (narrative) [facility] Work Phone: No Panel Informationon 12-19 1. No mammographic o r targeted sonographic abnormality to explain the patient's palpable left axillary abnormality. Clinical follow-up is recommended. 2. No mammographic evidence of malignancy. The patient can begin mammographic annual screening at age 40 or sooner if she is considered high risk. BI-RADS CATEGORY: BI-RADS Category: 2 Benign. Recommendation: Clinical follow-up. Recommended Date: N/A. Laterality: Left. For any future breast imaging appointments, please call [phone] ([phone]). MACRO: None Signed by: Mohan Romano 12/19/2022 11:32 AM Dictation workstation: [id number] MMODAL Interpreted By: Mohan Romano, and Jakob Wei STUDY: BI MAMMO BILATERAL DIAGNOSTIC TOMOSYNTHESIS; BI US BREAST LIMITED LEFT; 12/19/2022 9:42 am; 12/19/2022 10:52 am ACCESSION NUMBER(S): [id number]; [id number] ORDERING CLINICIAN: KAROLINA MAN INDICATION: Annual screening and patient reports tender palpable left axillary lump for 1 month. Benign right breast core biopsy. COMPARISON: 12/19/2022, 06/21/2021, 07/06/2018, 01/08/2018. FINDINGS: MAMMOGRAPHY: 2D and tomosynthesis images were reviewed at 1 mm slice thickness. Density: The breast tissue is heterogeneously dense, which may obscure small masses. A radiopaque marker was placed on the skin at the site of the patient's palpable abnormality in the left axillary region. No focal mammographic abnormality is seen underneath the radiopaque marker. A stable irregular circumscribed equal density mass with coarse calcifications and migrated tissue marker is seen in the superolateral right breast at middle depth. No suspicious masses or calcifications are identified in either breast. ULTRASOUND: A targeted ultrasound in the area of the tender palpable left axillary abnormality was performed by a registered flame burner. No sonographic abnormalities are seen in the area of the patient's reported palpable lump or pain. 3 morphologically normal lymph nodes are incidentally seen. MMODAL No Panel InformationOrdered By: Mohan Romano on 12-19-2022 [facility] Work Phone: US Breast - left limitedon 1 Radiology Study observation (narrative) [facility] Work Phone: COMPREHENSIVE PANELon 2022 Albumin [Mass/Vol] 4.6 g/dL Normal 3.4 - 5.0 [facility] Comment on above: Performed By: #### C MP #### [facility] [address] [place] [address] ALP [Catalytic activity/Vol] 63 U/L Normal 33 - 110 [facility] Comment on above: Performed By: #### C MP #### [place] [address] [place] [address] ALT [Catalytic activity/Vol] 23 U/L Normal 7 - 45 [facility] Comment on above: Result Comment: Lacie ents treated with Sulfasalazine may generate falsely decreased results for ALT. Performed By: #### C MP #### [facility] [address] [place] [address] Anion gap [Moles/Vol] 14 mmol/L Normal 10 - 20 [facility] Comment on above: Performed By: #### C MP #### [facility] [address] [place] [address] AST [Catalytic activity/Vol] 22 U/L Normal 9 - 39 [facility] Comment on above: Performed By: #### C MP #### [facility] [address] [place] [address] Bilirubin [Mass/Vol] 0.3 mg/dL Normal 0.0 - 1.2 [facility] Comment on above: Performed By: #### C MP #### [facility] [address] [place] [address] Calcium [Mass/Vol] 9.2 mg/dL Normal 8.6 - 10.6 [facility] Comment on above: Performed By: #### C MP #### [facility] [address] [place] [address] Chloride [Moles/Vol] 102 mmol/L Normal 98 - 107 [facility] Comment on above: Performed By: #### C MP #### [facility] [address] [place] [address] Creatinine [Mass/Vol] 0.66 mg/dL Normal 0.50 - 1.05 [facility] Comment on above: Performed By: #### C MP #### [facility] [address] [place] [address] eGFR FEMALE >90 Normal >90 [facility] Comment on above: Result Comment: CALC ULATIONS OF ESTIMATED GFR ARE PERFORMED USING THE 2020 CKD-EPI STUDY REFIT EQUATION WITHOUT THE RACE VARIABLE FOR THE IDMS-TRACEABLE CREATININE METHODS. https://jasn.asnjournals.org/content/early/ASN.170690 4494 Performed By: #### C MP #### [facility] [address] [place] [address] Glucose [Mass/Vol] 82 mg/dL Normal 74 - 99 [facility] Comment on above: Performed By: #### C MP #### [facility] [address] [place] [address] HCO3 (Bld) [Moles/Vol] 25 mmol/L Normal 21 - 32 [facility] Comment on above: Performed By: #### C MP #### [facility] [address] [place] [address] Potassium [Moles/Vol] 3.9 mmol/L Normal 3.5 - 5.3 [facility] Comment on above: Performed By: #### C MP #### [facility] [address] [place] [address] Protein [Mass/Vol] 7.2 g/dL Normal 6.4 - 8.2 [facility] Comment on above: Performed By: #### C MP #### [facility] [address] [place] [address] Sodium [Moles/Vol] 137 mmol/L Normal 136 - 145 [facility] Comment on above: Performed By: #### C MP #### [facility] [address] [place] [address] Urea nitrogen [Mass/Vol] 17 mg/dL Normal 6 - 23 [facility] Comment on above: Performed By: #### C MP #### [facility] [address] [place] [address] VITAMIN D, 25-HYDROXYon 11-08 VITAMIN D, 25-HYDROXY 36 ng/mL Normal [facility] Comment on above: Result Comment: . DEFICIENCY: < 20 NG/ML INSUFFICIENCY: 20-29 NG/ML SUFFICIENCY: 30-100 NG/ML THIS ASSAY ACCURATELY QUANTIFIES THE SUM OF VITAMIN D3, 25-HYDROXY AND VIT D2,25-HYDROXY. Performed By: #### V TDOH #### [facility] [address] [place] [address] COMPREHENSIVE PANELon 2022 Lab Specimen Source Normal [facility] Comment on above: Performed By: #### C MP #### [facility] [address] [place] [address] Performed By: #### V TDOH #### [facility] [address] [place] [address] XR foot RT min 3V*on 04-26-2 023 XR foot RT min 3V* [facility] [employer] Other XR foot RT min 3V* [facility] Main [facility] [employer] Other XR foot RT min 3V* [address] [facility] [employer] Other XR foot RT min 3V* ALEISHA Bernstein [address] [employer] Other XR foot RT min 3V* XRay Report [employer] Other XR foot RT min 3V* Signed [employer] Other XR foot RT min 3V* Patient: Michael Weller MR#: [id number] [employer] Other XR foot RT min 3V* [id number] [employer] Other XR foot RT min 3V* : 1985 Acct:[id number] [employer] Other XR foot RT min 3V* Age/Sex: 36 / F ADM Date: 07/02/22 [employer] Other XR foot RT min 3V* Loc: [id number] Room: Type: [facility] [employer] Other XR foot RT min 3V* Attending Dr: Bolivar Sherman [employer] Other XR foot RT min 3V* Copies to: Bolivar Sherman [employer] Other XR foot RT min 3V* Ordering Provider: Bolivar Sherman [employer] Other XR foot RT min 3V* Date of Service: 07/02/22 [employer] Other XR foot RT min 3V* XR/XR foot RT min 3V*: Right foot pain [employer] Other XR foot RT min 3V* 3 views RIGHT foot [employer] Other XR foot RT min 3V* COMPARISON:None [facility] [employer] Other XR foot RT min 3V* HISTORY: RIGHT 5th metatarsal pain for one week [employer] Other XR foot RT min 3V* Acute findings: None [employer] Other XR foot RT min 3V* Degenerative change: Unremarkable [employer] Other XR foot RT min 3V* Soft tissue findings : Unremarkable [employer] Other XR foot RT min 3V* Joint effusion: None [employer] Other XR foot RT min 3V* Postop changes: None [employer] Other XR foot RT min 3V* XR/XR foot RT min 3V* [employer] Other XR foot RT min 3V* IMPRESSION:No acute findings [employer] Other XR foot RT min 3V* Impression dictated by: Roddy Villegas M.D.07/02/2022 1:27 PM [employer] Other XR foot RT min 3V* Dictation Location: [place] [address] [employer] Other XR foot RT min 3V* Transcribed By: PWS 07/02/22 1327 [employer] Other XR foot RT min 3V* Dictated By: Roddy Villegas DO 07/02/22 1325 [employer] Other XR foot RT min 3V* Signed By: [employer] Other XR foot RT min 3V* 07/02/22 1327 [facility] [employer] Other Office Visit (Primary Care F orms)on 02-10-2022 Follow-up visit Diagnosis/Problems Assessed Anxiety (300.00) (F41.9) Increase Wellbutrin as prescribed. Follow up in 1-2 months or sooner as needed. Fasting labwork is ordered for patient to complete when able. Insomnia (780.52) (G47.00) Trazodone PRN. 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 Orders Anxiety Renew: buPROPion HCl ER (XL) 300 MG Oral Tablet Extended Release 24 Hour; TAKE 1 TABLET DAILY Rx By: Rafaela Arguello; Dispense: 30 Days ; #:30 Tablet; Refill: 2;For: Anxiety; YOEL = N; Verified Transmission to [facility]2348; Last Updated By: Bowen Olmedo; 02/10/2022 3:45:08 PM Chief Complaint An interactive audio and video telecommunication system which permits real time communications between the patient (at the originating site) and provider (at the distant site) was utilized to provide this telehealth service. Verbal consent was requested and obtained from MICHAEL WELLER on this date, 02/10/2022 03:10 PM , for a telehealth visit. virtual visit to discuss anxiety follow up History of Present IllnessThe patient is being seen for follow-up of insomnia. The patient reports no change in the condition. Comorbid Illnesses: anxiety. Interval symptoms: stable difficulty falling asleep, stable difficulty staying asleep, stable unrefreshing sleep, stable daytime sleepiness and stable fatigue. Associated symptoms: no depression, no snoring, no chronic pain, no nocturnal leg cramps, no restless legs and no hot flashes. Medications: the patient is adherent to her medication regimen, but she denies medication side effects. The patient sleeps 6 hours per night. The patient is being seen for follow-up of anxiety. The patient reports no change in the condition. Comorbid Illnesses: depression. Interval symptoms: stable anxiety, stable difficulty concentrating, stable restlessness, stable panic attacks, stable sleep disruption and denies depression. Associated symptoms: racing thoughts, but no grandiosity, no periods of euphoria, no hallucinations and no suicidal ideation. Medications: the patient is adherent to her medication regimen, but she denies medication side effects. Disease management: the patient is doing well with her goals. Started Wellbutrin in November 2021. She has noticed some change for the better since starting Wellbutrin. Feels like medication is helping with anxiety and focus, but still not where she wants to be. Still seems always overwhelmed with her to-do list. Tolerating well without side effects. Sleeping has been poor, but her son has been waking her up at night. She is taking Trazodone every night over the last month and this helps when she is able to sleep uninterrupted. Saw Dr. Morrissey, breast surgery for benign fibroadenoma. Labs ordered at previous visit. She has not been able to have these done yet. Review of Systems Constitutional: not feeling tired and no fever. Eyes: no eyesight problems, no eye redness and no eye pain. ENT: no ear pain, no swollen lymph nodes, no sore throat, no nose drainage and no nose congestion. Cardiovascular: no chest pain, no palpitations and no lower extremity edema. Respiratory: no cough, no dyspnea with exertion and no dyspnea at rest. Gastrointestinal: no abdominal pain, no constipation, no diarrhea, no heartburn and no nausea. Genitourinary: normal urine frequency, no incontinence. Musculoskeletal: no joint pain, no muscle pain and no joint swelling. Integumentary: no skin lesions and no rashes. Neurological: no headache, no dizziness and no numbness or tingling. Psychiatric: no mood changes and no sleep disturbances. Endocrine: no weight change and no temperature intolerance. Hematologic/Lymphatic : no easy bruising and no swollen glands. All other systems have been reviewed and are negative for complaint. 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 Normal [facility] ULTRASOUND LIMITED BREASTon 10-14-2021 ULTRASOUND LIMITED BREAST Patient Name: MICHAEL WELLER STUDY: BREAST ULTRASOUND; 10/14/2021 3:38 pm ACCESSION NUMBER(S): [id number] ORDERING CLINICIAN: GRAZYNA MORRISSEY INDICATION: Patient presents with right axillary painful palpable mass for the last 2 years. History of benign right breast mass with unknown pathology in right breast. COMPARISON: Mammogram 06/21/2021, 07/06/2018, 01/08/2018. Breast ultrasound 06/21/2021, 04/23/2020, 07/15/2019, 02/02/2019 FINDINGS: Targeted ultrasound was performed of the right axilla by a registered flame burner using elastography. Within the right axilla, no sonographic abnormality is present. The tissues are soft on elastography. Incidental note of normal appearing right axillary lymph node. IMPRESSION: No sonographic evidence of malignancy. Recommendation is clinical follow-up for patient's symptomatology. Screening mammogram in June 2022. BI-RADS CATEGORY: Category: 2 - Benign. Recommendation: Clinical follow-up for symptomatology. For any future breast imaging appointments, please call [phone]). I personally reviewed the images/study and I agree with the findings as stated by vice president of finance Brandt Camarillo MD. Electronically signed by: JAYME STEWART MD Normal [facility] [place] Ultrasound Limited Breaston 10-14-2021 MG Breast Screening Normal [facility] Work Phone: Albumin [Mass/volume] in Ser um or PlasmaOrdered By: Kp Alvares on 10-07-2021 Albumin [Mass/Vol] 3.9 g/dL 3.2-5.5 [facility] Basophils Auto (Bld) [#/Vol] Ordered By: Kp Alvares on 10-07-2021 Basophils (Bld) [#/Vol] 0.0 10*3/uL 0.0-0.2 [facility] Basophils/100 WBC Auto (Bld) Ordered By: Kp Alvares on 10-07-2021 Basophils/100 WBC (Bld) 0.6 % . [facility] Blood hemoglobin measurement (mass/volume)Ordered By: Kp Alvares on 10-07-2021 Hemoglobin (Bld) [Mass/Vol] 12.9 g/dL 11.8-15.4 [facility] Blood leukocytes automated c ount (number/volume)Ordered By: Kp Alvares on 10-07-2021 WBC (Bld) [#/Vol] 6.7 10*3/uL 4.5-11.0 [facility] Cholesterol [Mass/volume] in Serum or PlasmaOrdered By: Kp Alvares on 10-07-2021 Cholesterol [Mass/Vol] 192 mg/dL 140-200 [facility] Comment on above: Chol less than 200 m g/dl low risk Chol 201-239 mg/dl borderline risk Chol 240 mg/dl and greater high risk Cholesterol in LDL Calc [Mas s/Vol]Ordered By: Kp Alvares on 10-07-2021 Cholesterol in LDL [Mass/Vol] 104 mg/dL 0-100 [facility] Comment on above: LDL ATP III CLASSIFI CATION LDL less than 100 mg/dL Optimal LDL 100-129 mg/dL Near or above optimal LDL 130-159 mg/dL Borderline high LDL 160-189 mg/dL High LDL greater than 189 mg/dL Very high Cholesterol in VLDL Calc [Ma ss/Vol]Ordered By: Kp Alvares on 10-07-2021 Cholesterol in VLDL [Mass/Vol] 49 mg/dL [facility] Creatinine and Glomerular fi ltration rate.predicted panel (S/P/Bld)Ordered By: Kp Alvares on 10-07-2021 Creatinine [Mass/Vol] 0.60 mg/dL 0.44-1.03 [facility] Eosinophils Auto (Bld) [#/Vo l]Ordered By: Kp Alvares on 10-07-2021 Eosinophils (Bld) [#/Vol] 0.0 10*3/uL 0.0-0.45 [facility] Eosinophils/100 WBC Auto (Bl d)Ordered By: Kp Alvares on 10-07-2021 Eosinophils/100 WBC (Bld) 0.1 % . [facility] Erythrocyte distribution wid th Auto (RBC) [Ratio]Ordered By: Kp Alvares on 10-07-2021 Erythrocyte distribution width (RBC) [Ratio] 14.1 % 11.9-15.3 [facility] Estimated glomerular filtrat ion rate (GFR) non- AmericanOrdered By: Kp Alvares on 10-07-2021 GFR/1.73 sq M.predicted among non-blacks MDRD (S/P/Bld) [Vol rate/Area] > 60 mL/Min [facility] Globulin Calc (S) [Mass/Vol] Ordered By: Kp Alvares on 10-07-2021 Globulin (S) [Mass/Vol] 2.7 g/dL [facility] Hematocrit Auto (Bld) [Volum e fraction]Ordered By: Kp Alvares on 10-07-2021 Hematocrit (Bld) [Volume fraction] 39.2 % 34.0-46.4 [facility] Laboratory - Hematology and Cell countsOrdered By: Kp Alvares on 10-07-2021 Nucleated RBC/100 WBC (Bld) [Ratio] 0.0 % 0-0.5 [facility] Lymphocytes Auto (Bld) [#/Vo l]Ordered By: Kp Alvares on 10-07-2021 Lymphocytes (Bld) [#/Vol] 2.0 10*3/uL 1.00-4.8 [facility] Lymphocytes/100 WBC Auto (Bl d)Ordered By: Kp Alvares on 10-07-2021 Lymphocytes/100 WBC (Bld) 30.2 % . [facility] MCH Auto (RBC) [Entitic mass ]Ordered By: Kp Alvares on 10-07-2021 MCH (RBC) [Entitic mass] 28.2 pg 24.7-34.3 [facility] MCHC Auto (RBC) [Mass/Vol]Or dered By: Kp Alvares on 10-07-2021 MCHC (RBC) [Mass/Vol] 33.0 g/dL 32.0-35.0 [facility] MCV Auto (RBC) [Entitic vol] Ordered By: Kp Alvares on 10-07-2021 MCV (RBC) [Entitic vol] 85.5 fL 80-100 [facility] Monocytes Auto (Bld) [#/Vol] Ordered By: Kp Alvares on 10-07-2021 Monocytes (Bld) [#/Vol] 0.4 10*3/uL 0.0-0.8 [facility] Monocytes/100 WBC Auto (Bld) Ordered By: Kp Alvares on 10-07-2021 Monocytes/100 WBC (Bld) 5.4 % . [facility] Neutrophils Auto (Bld) [#/Vo l]Ordered By: Kp Alvares on 10-07-2021 Neutrophils (Bld) [#/Vol] 4.2 10*3/uL 1.8-7.7 [facility] Neutrophils/100 WBC Auto (Bl d)Ordered By: Kp Alvares on 10-07-2021 Neutrophils/100 WBC (Bld) 63.7 % . [facility] No Panel InformationOrdered By: Kp Alvares on 10-07-2021 Estimated GFR () > 60 mL/Min [facility] Comment on above: GFR estimated refere nce range: According to KDOQI guidelines, <60 ml/min/1.73m2 is sufficient to diagnose a patient with chronic kidney disease. Pharmacy Creatinine Clearance (Chem N/A [facility] Platelet mean volume Auto (B ld) [Entitic vol]Ordered By: Kp Alvares on 10-07-2021 Platelet mean volume (Bld) [Entitic vol] 11.4 fL 6.3-10.7 [facility] Platelets Auto (Bld) [#/Vol] Ordered By: Kp Alvares on 10-07-2021 Platelets (Bld) [#/Vol] 164 10*3/uL 150-450 [facility] Protein [Mass/volume] in Ser um or PlasmaOrdered By: Kp Alvares on 10-07-2021 Protein [Mass/Vol] 6.6 g/dL 6.1-7.9 [facility] RBC Auto (Bld) [#/Vol]Ordere d By: Kp Alvares on 10-07-2021 RBC (Bld) [#/Vol] 4.59 10*6/uL 3.60-5.00 [facility] Serum or plasma alanine bynum otransferase measurement without P-5'-P (enzymatic activiOrdered By: Kp Alvares on 10-07-2021 ALT No additional P-5'-P [Catalytic activity/Vol] 16 U/L 10-60 [facility] Serum or plasma albumin/glob ulin mass ratioOrdered By: Kp Alvares on 10-07-2021 Albumin/Globulin [Mass ratio] 1.4 {ratio} [facility] Serum or plasma alkaline jenn sphatase measurement (enzymatic activity/volume)Ordered By: Kp Alvares on 10-07-2021 ALP [Catalytic activity/Vol] 55 U/L 32-92 [facility] Serum or plasma aspartate am inotransferase measurement (enzymatic activity/volume)Ordered By: Kp Alvares on 10-07-2021 AST [Catalytic activity/Vol] 16 U/L 10-42 [facility] Serum or plasma calcium marlon urement (mass/volume)Ordered By: Kp Alvares on 10-07-2021 Calcium [Mass/Vol] 9.2 mg/dL 8.2-10.2 [facility] Serum or plasma chloride any surement (moles/volume)Ordered By: Kp Alvares on 10-07-2021 Chloride [Moles/Vol] 102 mmol/L 95-114 [facility] Serum or plasma glucose marlon urement (mass/volume)Ordered By: Kp Alvares on 10-07-2021 Glucose [Mass/Vol] 86 mg/dL 70-100 [facility] Comment on above: ADA recommended refe rence range Random Glucose Reference Range is dependent on time and content of last meal. Glucose of more than 200 mg/dL in a nonstressed, ambulatory subject supports the diagnosis of Diabetes Mellitus. Serum or plasma high density lipoprotein (HDL) cholesterol measurementOrdered By: Kp Alvares on 10-07-2021 Cholesterol in HDL [Mass/Vol] 39 mg/dL 35-85 [facility] Comment on above: HDL CHOL ATP-III CLA SSIFICATION Cardiovascular Risk HDL > or equal to 60 mg/dL LOW HDL < 40 mg/dL HIGH Serum or plasma potassium me asurement (moles/volume)Ordered By: Kp Alvares on 10-07-2021 Potassium [Moles/Vol] 4.1 mmol/L 3.5-5.1 [facility] Serum or plasma sodium measu rement (moles/volume)Ordered By: Kp Alvares on 10-07-2021 Sodium [Moles/Vol] 134 mmol/L 136-146 [facility] Serum or plasma total biliru bin measurement (mass/volume)Ordered By: Kp Alvares on 10-07-2021 Bilirubin [Mass/Vol] 0.6 mg/dL 0.3-1.2 [facility] Serum or plasma total carbon dioxide measurement (moles/volume)Ordered By: Kp Alvares on 10-07-2021 CO2 [Moles/Vol] 25.9 mmol/L 22.0-30.0 [facility] Serum or plasma total choles terol/high density lipoprotein (HDL) cholesterol mass ratOrdered By: Kp Alvares on 10-07-2021 Cholesterol.total/Cho lesterol in HDL [Mass ratio] 4.9 {ratio} <5.0 [facility] Serum or plasma urea nitroge n measurement (mass/volume)Ordered By: Kp Alvares on 10-07-2021 Urea nitrogen [Mass/Vol] 10 mg/dL 9-23 [facility] TSH DL <= 0.005 mIU/L QnOrde red By: Kp Alvares on 10-07-2021 TSH Qn 2.68 m[IU]/L 0.45-5.33 [facility] Triglyceride [Mass/volume] i n Serum or PlasmaOrdered By: Kp Alvares on 10-07-2021 Triglyceride [Mass/Vol] 246 mg/dL 35-149 [facility] Comment on above: TRIG ATP III CLASSIF ICATION TRIG less than 150 mg/dL Normal TRIG 150-199 mg/dL Borderline high TRIG 200-500 mg/dL High TRIG greater than 500 mg/dL Very high Standard traceable to the Center for Disease Conrtrol and Prevention (CDC) test method. CBC AUTO DIFFon 07-12-2021 BASO # 0.0 103/ul Normal 0.0-0.1 [facility] Comment on above: Performed By: #### C BC #### [facility] [address] [place] [address] Dr. Kalyn Gutierrez Basophils/100 WBC (Bld) 0.4 % Normal 0.2-2.0 [facility] Comment on above: Performed By: #### C BC #### [facility] [address] [place] [address] Dr. Kalyn Gutierrez EO # 0.0 103/ul Normal 0.0-0.7 [facility] Comment on above: Performed By: #### C BC #### [facility] [address] [place] [address] Dr. Kalyn Gutierrez Eosinophils/100 WBC (Bld) 0.0 % Critically low 0.9-7.0 [facility] Comment on above: Performed By: #### C BC #### [facility] [address] [place] [address] Dr. Kalyn Gutierrez Erythrocyte distribution width (RBC) [Ratio] 12.8 % Normal 11.0-15.0 [facility] Comment on above: Performed By: #### C BC #### [facility] [address] [place] [address] Dr. Kalyn Gutierrez Hematocrit (Bld) [Volume fraction] 38.8 % Normal 36.0-48.0 [facility] Comment on above: Performed By: #### C BC #### [facility] [address] [place] [address] Dr. Kalyn Gutierrez Hemoglobin (Bld) [Mass/Vol] 12.4 g/dL Normal 12.0-16.0 [facility] Comment on above: Performed By: #### C BC #### [facility] [address] [place] [address] Dr. Kalyn Gutierrez IG # 0.02 10e3/ul Normal 0.00-0.03 [facility] Comment on above: Performed By: #### C BC #### [facility] [address] [place] [address] Dr. Kalyn Gutierrez IG % 0.3 % Normal 0.0-0.5 [facility] Comment on above: Performed By: #### C BC #### [facility] [address] [place] [address] Dr. Kalyn Gutierrez LYMPH # 1.8 103/ul Normal 1.2-3.8 [facility] Comment on above: Performed By: #### C BC #### [facility] [address] [place] [address] Dr. Kalyn Gutierrez Lymphocytes/100 WBC (Bld) 25.0 % Normal 20.5-60.0 [facility] Comment on above: Performed By: #### C BC #### [facility] [address] [place] [address] Dr. Kalyn Gutierrez MANUAL DIFF REQ NO Normal [facility] Comment on above: Performed By: #### C BC #### [facility] [address] [place] [address] Dr. Kalyn Gutierrez MCH (RBC) [Entitic mass] 28.2 pg Normal 26.7-34.0 [facility] Comment on above: Performed By: #### C BC #### [facility] [address] [place] [address] Dr. Kalyn Gutierrez MCHC (RBC) [Mass/Vol] 32.0 g/dL Normal 29.9-35.2 [facility] Comment on above: Performed By: #### C BC #### [facility] [address] [place] [address] Dr. Kalyn Gutierrez MCV (RBC) [Entitic vol] 88.4 fL Normal 81.0-99.0 [facility] Comment on above: Performed By: #### C BC #### [facility] [address] [place] [address] Dr. Kalyn Gutierrez MONO # 0.6 103/ul Normal 0.3-0.8 [facility] Comment on above: Performed By: #### C BC #### [facility] [address] [place] [address] Dr. Kalyn Gutierrez Monocytes/100 WBC (Bld) 8.7 % Normal 1.7-12.0 [facility] Comment on above: Performed By: #### C BC #### [facility] [address] [place] [address] Dr. Kalyn Gutierrez NEUT # 4.8 103/ul Normal 1.4-6.5 [facility] Comment on above: Performed By: #### C BC #### [facility] [address] [place] [address] Dr. Kalyn Gutierrez Neutrophils/100 WBC (Bld) 65.6 % Normal 43.0-75.0 [facility] Comment on above: Performed By: #### C BC #### [facility] [address] [place] [address] Dr. Kalyn Gutierrez Platelet mean volume (Bld) [Entitic vol] 12.3 fL Normal 9.5-13.5 [facility] Comment on above: Performed By: #### C BC #### [facility] [address] [place] [address] Dr. Kalyn Gutierrez PLT 183 103/ul Normal 150-450 [facility] Comment on above: Performed By: #### C BC #### [facility] [address] [place] [address] Dr. Kalyn Gutierrez RBC 4.39 106/ul Normal 4.20-5.40 [facility] Comment on above: Performed By: #### C BC #### [facility] [address] [place] [address] Dr. Kalyn Gutierrez WBC 7.3 103/ul Normal 4.0-11.0 [facility] Comment on above: Performed By: #### C BC #### [facility] [address] [address] [address] Kalyn Gutierrez PREG QUANT HCGon 07-12-2021 HCG QUANT <1 Normal [facility] Comment on above: Performed By: #### P REGQNT #### [facility] [address] [address] [address] Kalyn Gutierrez HCG RANGE SEE BELOW Normal [facility] Comment on above: Result Comment: 5-50 0-1 WEEK 40-300 1-2 WEEKS 100-1,000 2-3 WEEKS 500-6,000 3-4 WEEKS 5,000-200,000 1-2 MONTHS 10,000-100,000 2-3 MONTHS 3,000-50,000 2ND TRIMESTER 1,000-50,000 3RD TRIMESTER Performed By: #### P REGQNT #### [facility] [address] [address] [address] Kalyn Gutierrez US PELVIS AND TRANSVAGon US PELVIS AND TRANSVAG EXAM: US PELVIS AND TRANSVAG HISTORY: Dyspareunia COMPARISON: None. TECHNIQUE: Pelvic sonography was performed utilizing both transabdominal and transvaginal techniques. FINDINGS: Anteverted uterus measures 8.1 cm in sagittal diameter x 5.7 cm in anteroposterior diameter x 4.2 cm in transverse diameter. Uterine endometrial stripe measures 0.7 cm in thickness. Small nabothian cysts. Right ovary measures 2.8 x 2.3 x 2.8 cm. Normal Doppler evaluation. No suspicious adnexal mass. Left ovary measures 3.1 x 2.5 x 2.8 cm. Normal Doppler evaluation. No suspicious adnexal mass. No sonographic evidence of free fluid within the pelvis. IMPRESSION: 1. Unremarkable sonographic evaluation of the uterus and ovaries. 2. No significant pelvic free fluid. 3. Thin endometrial stripe, likely due to phase of menstruation. Electronically authenticated by: NOEMI KRISHNA Date: 2021-06-22 09:10 Normal [facility] DIGITAL DIAG MAMM BILAT WITH TOMOon 06-21-2021 DIGITAL DIAG MAMM BILAT WITH SUSANA Patient Name: MICHAEL WELLER STUDY: DIGITAL DIAG MAMM BILAT WITH SUSANA; BREAST ULTRASOUND; 06/21/2021 3:05 pm; 06/21/2021 3:31 pm ACCESSION NUMBER(S): [id number]; [id number] ORDERING CLINICIAN: RAFAELA ARGUELLO INDICATION: Right breast palpable mass which was previously biopsied at an outside institution. Pathology is unknown. The patient notices recent growth. COMPARISON: 01/08/2018, 07/06/2018 FINDINGS: MAMMOGRAPHY: 2D and tomosynthesis images were reviewed at 1 mm slice thickness. The breast tissue is heterogeneously dense, which may obscure small masses. There is an irregular circumscribed equal density mass with coarse calcifications and an associated slightly migrated tissue marker in the upper outer right breast at middle depth consistent with the patient's enlarging palpable abnormality. On mammogram the mass measures approximately 3.2 x 1.7 x 3.1 cm in savana posterior, craniocaudal and transverse dimension. On the prior mammogram from 2018 the mass measures approximately 3.1 x 1.2 x 2.5 cm. No suspicious masses or calcifications are identified. ULTRASOUND: Targeted right breast ultrasound was performed by a registered flame burner utilizing elastography. The irregular hypoechoic parallel mass and palpable abnormality at the 10 o'clock position 4 cm from the nipple measures 3.0 x 1.1 x 1.8 cm. It demonstrates internal vascularity and intermediate elastography. Size comparison on prior ultrasounds is difficult given variability in scan technique. For instance on ultrasound 07/06/2018 it measures 3.0 x 1.0 x 1.3 cm and on the most recent prior ultrasound 04/23/2020 it measures 3.1 x 1.2 x 1.8 cm. No suspicious findings are noted. IMPRESSION: Benign previously biopsied right breast mass demonstrating overall interval growth when compared to prior studies on different modalities. Surgical consultation for possible excision is recommended. No mammographic or targeted sonographic evidence of malignancy in either breast. BI-RADS CATEGORY: Category: 2 - Benign. Recommendation: Surgical consultation. For any future breast imaging appointments, please call [phone]). Patient letter sent SAAP[facility] Electronically signed by: MOHAN ROMANO MD Normal [facility] [place] IO UA (automated w/o microsc opy)on 06-21-2021 Protein (U) [Mass/Vol] Negative [facility] Work Phone: IO UA (automated w/o microscopy) Negative [facility] Work Phone: IO UA (automated w/o microscopy) Normal (0.2-1.0 mg/dl) [facility] Work Phone: IO UA (automated w/o microscopy) 6.5 1 [facility] Work Phone: IO UA (automated w/o microscopy) 1.025 1 [facility] Work Phone: IO UA (automated w/o microscopy) Clear [facility] Work Phone: IO UA (automated w/o microscopy) Yellow [facility] Work Phone: IO Ultrasound, measurement p ost-void resid urine and/or bl cap; no imagon 06-21-2021 IO Ultrasound, measurement post-void resid urine and/or bl cap; no imag 0 mL [facility] Work Phone: Radiologyon 06-21-2021 MG Breast Diagnostic Please click on the link to view the study images Normal [facility] Work Phone: MG Breast Diagnostic Normal [facility] [address] Work Phone: Tobacco Screening.on 022 Fall risk assessment a) No falls within the last year [facility] Work Phone: Tobacco use status CPHS b) No [facility] Work Phone: ULTRASOUND LIMITED BREASTon 06-21-2021 ULTRASOUND LIMITED BREAST Patient Name: MICHAEL WELLER STUDY: DIGITAL DIAG MAMM BILAT WITH SUSANA; BREAST ULTRASOUND; 06/21/2021 3:05 pm; 06/21/2021 3:31 pm ACCESSION NUMBER(S): [id number]; [id number] ORDERING CLINICIAN: RAFAELA ARGUELLO INDICATION: Right breast palpable mass which was previously biopsied at an outside institution. Pathology is unknown. The patient notices recent growth. COMPARISON: 01/08/2018, 07/06/2018 FINDINGS: MAMMOGRAPHY: 2D and tomosynthesis images were reviewed at 1 mm slice thickness. The breast tissue is heterogeneously dense, which may obscure small masses. There is an irregular circumscribed equal density mass with coarse calcifications and an associated slightly migrated tissue marker in the upper outer right breast at middle depth consistent with the patient's enlarging palpable abnormality. On mammogram the mass measures approximately 3.2 x 1.7 x 3.1 cm in savana posterior, craniocaudal and transverse dimension. On the prior mammogram from 2018 the mass measures approximately 3.1 x 1.2 x 2.5 cm. No suspicious masses or calcifications are identified. ULTRASOUND: Targeted right breast ultrasound was performed by a registered flame burner utilizing elastography. The irregular hypoechoic parallel mass and palpable abnormality at the 10 o'clock position 4 cm from the nipple measures 3.0 x 1.1 x 1.8 cm. It demonstrates internal vascularity and intermediate elastography. Size comparison on prior ultrasounds is difficult given variability in scan technique. For instance on ultrasound 07/06/2018 it measures 3.0 x 1.0 x 1.3 cm and on the most recent prior ultrasound 04/23/2020 it measures 3.1 x 1.2 x 1.8 cm. No suspicious findings are noted. IMPRESSION: Benign previously biopsied right breast mass demonstrating overall interval growth when compared to prior studies on different modalities. Surgical consultation for possible excision is recommended. No mammographic or targeted sonographic evidence of malignancy in either breast. BI-RADS CATEGORY: Category: 2 - Benign. Recommendation: Surgical consultation. For any future breast imaging appointments, please call [phone]). Patient letter sent SAAPPR Electronically signed by: MOHAN ROMANO MD Normal [facility] [place] Ultrasound Limited Breaston 06-21-2021 MG Breast Screening Normal MP-WS -[facility] 200 Work Phone: IO UA (automated w/o microsc opy)on 06-04-2021 Protein (U) [Mass/Vol] Negative YC-WGSV-Qwmjai ke 200 Work Phone: IO UA (automated w/o microscopy) Negative IZ-OEDA-Zssops ke 200 Work Phone: IO UA (automated w/o microscopy) Normal TN-OQYA-Hmdgtb ke 200 Work Phone: IO UA (automated w/o microscopy) 7.0 1 OU-OVDW-Iyncnt ke 200 Work Phone: IO UA (automated w/o microscopy) 1.020 1 WE-AILF-Juhtsd ke 200 Work Phone: IO UA (automated w/o microscopy) Clear TN-ROKN-Ihalcd ke 200 Work Phone: IO UA (automated w/o microscopy) Yellow HR-UHRC-Gxwgoq ke 200 Work Phone: Tobacco Screening.on 022 Adult depression screening assessment No MP-WSPC-Luiz tla ke 200 Work Phone: Fall risk assessment a) No falls within the last year TR-WKEK-Ojphvm ke 200 Work Phone: Last menstrual period start date 14May2021 FY-GNFJ-Ilxqvm ke 200 Work Phone: Tobacco use status CPHS b) No RK-ILHQ-Srrcmw ke 200 Work Phone: PAP ACOG PANEL 2: 30 to 65on 03-28-2021 . . Normal [facility] Comment on above: Result Comment: Perf ormed at: WB Performed By: #### [id number] #### [facility] [address] [place] [address] Dr. Kalyn Gutierrez Age Gdln ACOG Testing - Normal [facility] Comment on above: Performed By: #### [id number] #### [facility] [address] [place] [address] Dr. Kalyn Gutierrez DIAGNOSIS: Comment Normal [facility] Comment on above: Result Comment: NEGA TIVE FOR INTRAEPITHELIAL LESION OR MALIGNANCY. Performed at: WB Performed By: #### [id number] #### [facility] [address] [address] [address] Kalyn Gutierrez HPV Aptima Negative Normal Negative [facility] Comment on above: Result Comment: This nucleic acid amplification test detects fourteen high-risk HPV types (16,18,31,33,35,39,45,51,52,56,58,59,66,68) without differentiation. Performed at: =G Performed By: #### [id number] #### [facility] [address] [place] [address] Dr. Kalyn Gutierrez Methodology: Comment Normal [facility] Comment on above: Result Comment: This liquid based ThinPrep(R) pap test was screened with the use of an image guided system. Performed at: WB Performed By: #### [id number] #### [facility] [address] [place] [address] Dr. Kalyn Gutierrez Note: Comment Normal [facility] Comment on above: Result Comment: The Pap smear is a screening test designed to aid in the detection of premalignant and malignant conditions of the uterine cervix. It is not a diagnostic procedure and should not be used as the sole means of detecting cervical cancer. Both false-positive and false-negative reports do occur. . Performed at: WB Performed By: #### [id number] #### [facility] [address] [place] [address] Dr. Kalyn Gutierrez Performed by: Comment Normal [facility] Comment on above: Result Comment: Tawnya Del Rio, Roller Stitcher (ASCP) Performed at: WB Performed By: #### [id number] #### [facility] [address] [place] [address] Dr. Kalyn Gutierrez Specimen adequacy: Comment Normal [facility] Comment on above: Result Comment: Sati sfactory for evaluation. Endocervical and/or squamous metaplastic cells (endocervical component) are present. Performed at: WB Performed By: #### [id number] #### [facility] [address] [place] [address] Dr. Kalyn Gutierrez Vital Signs Date Time Vital Sign Value Performing Clinician Facility 09-05-2023 13:24040 Body height 165.1 cm [facility] 09-05-2023 13: Body mass index (BMI) [Ratio] 29.2 kg/m2 [facility] 09-05-2023 13:24040 Body temperature 97.9 [degF] [facility] 09-05-2023 13:24 Body weight 79.83 kg [facility] 09-05-2023 13:24-0400 Diastolic blood pressure 85 mm[Hg] [facility] 09-05-2023 13:24-0400 Heart rate 106 /min [facility] 09-05-2023 13:24-0400 Respiratory rate 18 /min [facility] 09-05-2023 13:24-0400 SaO2% (BldA) [Mass fraction] 96 % [facility] 09-05-2023 13:24-0400 Systolic blood pressure 120 mm[Hg] [facility] 07-22-2023 14:37-0400 Body height 165.1 cm Jhonny Lee MD Work Phone: [facility] 07-22-2023 14:37-0400 Body mass index (BMI) [Ratio] 30.72 kg/m2 Jhonny Lee MD Work Phone: [facility] 07-22-2023 14:37-0400 Body weight 83.73 kg Jhonny Lee MD Work Phone: [facility] 07-22-2023 14:37-0400 Diastolic blood pressure 78 mm[Hg] Jhonny Lee MD Work Phone: [facility] 07-22-2023 14:37-0400 Heart rate 111 /min Jhonny Lee MD Work Phone: [facility] 07-22-2023 14:37-0400 Systolic blood pressure 118 mm[Hg] Jhonny Lee MD Work Phone: [facility] 04-27-2023 15:40-0500 Body height 165.1 cm Jhonny Lee MD Work Phone: [facility] 04-27-2023 15:40-0500 Body mass index (BMI) [Ratio] 34.15 kg/m2 Jhonny Lee MD Work Phone: [facility] 04-27-2023 15:40-0500 Body weight 93.08 kg Jhonny Lee MD Work Phone: [facility] 04-27-2023 15:40-0500 Diastolic blood pressure 60 mm[Hg] Jhonny Lee MD Work Phone: [facility] 04-27-2023 15:40-0500 Heart rate 123 /min Jhonny Lee MD Work Phone: [facility] 04-27-2023 15:40-0500 Respiratory rate 14 /min Jhonny Lee MD Work Phone: [facility] 04-27-2023 15:40-0500 Systolic blood pressure 104 mm[Hg] Jhonny Lee MD Work Phone: [facility] 02-19-2023 10:39-0500 Body height 165.1 cm Jhonny Lee MD Work Phone: [facility] 02-19-2023 10:39-0500 Body mass index (BMI) [Ratio] 36.08 kg/m2 Jhonny Lee MD Work Phone: [facility] 02-19-2023 10:39-0500 Body weight 98.34 kg Jhonny Lee MD Work Phone: [facility] 02-19-2023 10:39-0500 Diastolic blood pressure 83 mm[Hg] Jhonny Lee MD Work Phone: [facility] 02-19-2023 10:39-0500 Heart rate 94 /min Jhonny Lee MD Work Phone: [facility] 02-19-2023 10:39-0500 Systolic blood pressure 117 mm[Hg] Jhonny Lee MD Work Phone: [facility] 07-02-2022 13:20-0400 Body height 165.1 cm Bolivar Sherman Other [employer] Other 07-02-2022 13:20-0400 Body mass index (BMI) [Ratio] 33.28 kg/m2 Bolivar Sherman Other [employer] Other 07-02-2022 13:20-0400 Body weight 90.72 kg Bolivar Sherman Other [employer] Other 07-02-2022 13:20-0400 Diastolic blood pressure 78 mm[Hg] Bolivar Sherman Other [employer] Other 07-02-2022 13:20-0400 Respiratory rate 18 /min Bolivar Sherman Other [employer] Other 07-02-2022 13:20-0400 SaO2% (BldA) [Mass fraction] 99 % Bolivar Sherman Other [employer] Other 07-02-2022 13:20-0400 Systolic blood pressure 117 mm[Hg] Bolivar Sherman Other [employer] Other 10-14-2021 15:07-0400 Diastolic blood pressure 98 mm[Hg] Rafaela Arguello Work Phone: [facility] [employer] Work Phone: 10-14-2021 15:07-0400 Heart rate 103 /min Rafaela Arguello Work Phone: [facility] [place] Work Phone: 10-14-2021 15:07-0400 Systolic blood pressure 132 mm[Hg] Rafaela Arguello Work Phone: [facility] [place] Work Phone: 06-21-2021 08:13-0400 Body height 165.1 cm Rafaela Arguello Work Phone: [facility] Work Phone: 06-21-2021 08:13-0400 Body mass index (BMI) [Ratio] 33.28 kg/m2 Rafaela Arguello Work Phone: [facility] Work Phone: 06-21-2021 08:13-0400 Body surface area Derived from formula 1.98 m2 Rafaela Arguello Work Phone: [facility] Work Phone: 06-21-2021 08:13-0400 Body temperature 97.2 [degF] Rafaela Arguello Work Phone: 4(973)171-855699 [place] [address] Work Phone: 06-21-2021 08:13-0400 Body weight 90.72 kg Rafaelalaron Arguello Work Phone: 6(088)398-031599 [place] [address] Work Phone: 06-21-2021 08:13-0400 Diastolic blood pressure 82 mm[Hg] Rafaela Arguello Work Phone: 2(209)589-624299 [place] [address] Work Phone: 06-21-2021 08:13-0400 Heart rate 89 /min Rafaela Arguello Work Phone: 9(726)587-406399 [place] [address] Work Phone: 06-21-2021 08:13-0400 Systolic blood pressure 115 mm[Hg] Rafaela Arguello Work Phone: [facility] Work Phone: 06-04-2021 13:05-0400 Body height 167.64 cm Rafaelalaron Arguello Work Phone: OI-XDJP-Vxtujiqr 200 Work Phone: 06-04-2021 13:05-0400 Body mass index (BMI) [Ratio] 32.77 kg/m2 Rafaelalaron Arguello Work Phone: TS-WYND-Jypigceh 200 Work Phone: 06-04-2021 13:05-0400 Body surface area Derived from formula 2.01 m2 Rafaelalaron Arguello Work Phone: GS-IXJO-Fuaysdoh 200 Work Phone: 06-04-2021 13:05-0400 Body temperature 98.2 [degF] Rafaela Arguello Work Phone: XD-OBDD-Avcjfvyw 200 Work Phone: 06-04-2021 13:05-0400 Body weight 92.08 kg Rafaela Arguello Work Phone: CC-YFHB-Lhtwzybu 200 Work Phone: 06-04-2021 13:05-0400 Diastolic blood pressure 76 mm[Hg] Rafaela Arguello Work Phone: NB-KSCY-Bubdsmsd 200 Work Phone: 06-04-2021 13:05-0400 Heart rate 80 /min Rafaela Arguello Work Phone: UO-KOMI-Vxmdtxcx 200 Work Phone: 06-04-2021 13:05-0400 Respiratory rate 16 /min Rafaela Arguello Work Phone: HO-VAHA-Bapsvhjk 200 Work Phone: 06-04-2021 13:05-0400 Systolic blood pressure 122 mm[Hg] Rafaela Arguello Work Phone: IR-VXBU-Ihueclpm 200 Work Phone: 12-07-2019 11:03-0400 BMI (Body Mass Index) 31.95 kg/m2 Rafaela Arguello ZS-XWYG-Zlxucdvu 200 Work Phone: 12-07-2019 11:03-0400 Body Temperature 98.3 [degF] Rafaela Arguello RC-MASE-Hxgjjna e 200 Work Phone: Comment on above: Method: 12-07-2019 11:03-0400 Body weight 87.77 kg Rafaela Arguello LB-SVQI-Hbvsgxwd 200 Work Phone: 12-07-2019 11:03-0400 BP Diastolic 74 mm[Hg] Rafaela Arguello AR-SGVT-Ildqpvcq 200 Work Phone: 12-07-2019 11:03-0400 BP Systolic 118 mm[Hg] Rafaela Arguello MP-WSPC-[place] 200 Work Phone: 12-07-2019 11:03-0400 BSA (Body Surface Area) 1.96 m2 Rafaela Arguello AY-GNSD-Plnluono 200 Work Phone: 12-07-2019 11:03-0400 Height 165.74 cm Rafaela Arguello HW-AHJB-Waehjvpg 200 Work Phone: 12-07-2019 11:03-0400 Pulse (Heart Rate) 84 /min Rafaela Arguello MP-WSPC-West[place] mayur 200 Work Phone: 12-07-2019 11:03-0400 Respiratory Rate 16 /min Rafaela Arguello MP-WSPC-[place] 200 Work Phone: 05-16-2019 18:12-0400 BMI (Body Mass Index) 33.45 kg/m2 Rafaelalaron Arguello MP-WSPC-[place] [address] [facility] Work Phone: 05-16-2019 18:12-0400 Body Temperature 98.3 [degF] Rafaela Arguello MP-WSPC-[place] [address] [facility] Work Phone: 05-16-2019 18:12-0400 Body weight 91.17 kg Rafaelalaron Arguello MP-WSPC-[place] [address] [facility] Work Phone: 05-16-2019 18:12-0400 BP Diastolic 76 mm[Hg] Rafaela Hema ALCANTARMO-LVSQ-Bqhl [address] [facility] Work Phone: 05-16-2019 18:12-0400 BP Systolic 122 mm[Hg] Rafaelalaron Arguello MP-WSPC-[place] [address] [facility] Work Phone: 05-16-2019 18:12-0400 BSA (Body Surface Area) 1.98 m2 Rafaelalaron Arguello MP-WSPC-[place] [address] [facility] Work Phone: 05-16-2019 18:12-0400 Pulse (Heart Rate) 88 /min Rafaela Arguello OV-JXRF-Bykh [address] [facility] Work Phone: 05-16-2019 18:12-0400 Pulse Oximetry 98 % Rafaela Arguello GU-PFWD-Ktky [address] [facility] Work Phone: 05-16-2019 18:12-0400 Respiratory Rate 18 /min Rafaela Arguello ED-JWWG-Ysel 25 [address] [facility] Work Phone: Encounters Encounter Date Encounter Type Care Provider Facility Start: 09-05-2023 End: 09-05-2023 Departed Referred ENVIRONMENTAL ANALYST Swetha Andersen Work Phone: [facility] 250 Start: 09-05-2023 End: 09-05-[address] [facility] Work Phone: Start: 09-05-2023 End: 09-05-2023 Patient encounter procedure [facility] Amandeep Work Phone: Start: 09-01-2023 End: 09-01-2023 ambulatory ROULA BLEDSOE Facility:[facility] Start: 09-01-2023 End: 09-01-2023 Patient encounter procedure Roula Bledsoe ENVIRONMENTAL ANALYSTJonathanTELEPHONE CLEANER Work Phone: [facility] Comment on above: Dermatofibroma (Prim ottoniel Dx); Lentigines; Multiple benign nevi; Becerril angioma; Hx of malignant melanoma Start: 07-22-2023 End: 07-22-2023 ambulatory [facility] Start: 07-22-2023 End: 07-22-2023 Office outpatient visit 25 minutes Jhonny Lee MD Work Phone: [facility] Comment on above: Encephalopathy (Prim ottoniel Dx); Attention deficit hyperactivity disorder (ADHD), predominantly inattentive type; Insomnia due to medical condition; Anxiety Start: 07-02-2023 End: 07-02-2023 ambulatory MATT STAPLETON Not Available Start: 04-27-2023 End: 04-27-2023 ambulatory [facility] Start: 04-27-2023 End: 04-27-2023 Office outpatient visit 25 minutes Jhonny Lee MD Work Phone: [facility] Comment on above: Encephalopathy (Prim ottoniel Dx); Attention deficit hyperactivity disorder (ADHD), predominantly inattentive type; Insomnia due to medical condition; Anxiety Start: 03-04-2023 End: 03-04-2023 ambulatory KAROLINA Cota [facility] Ambulatory Start: 03-04-2023 End: 03-04-2023 Office outpatient visit 15 minutes Karolina Man DO Work Phone: [facility] Comment on above: Anxiety Start: 02-19-2023 End: 02-19-2023 ambulatory JHONNY Schroeder LEE [facility] Ambulatory Start: 02-19-2023 End: 02-19-2023 Office outpatient new 60 minutes Jhonny Lee MD Work Phone: [facility] Comment on above: Encephalopathy (Prim ottoniel Dx); Anxiety; Attention deficit hyperactivity disorder (ADHD), predominantly inattentive type Start: 12-19-2022 End: 12-20-2022 ambulatory KAROLINA Cota [facility] Start: 12-19-2022 End: 12-19-2022 ambulatory KAROLINA Cota [facility] Start: 12-19-2022 End: 12-19-2022 Subsequent hospital visit by physician Martha Breast Ultrasound 1 [facility] Comment on above: Lump in female breas t Start: 12-19-2022 End: 12-19-2022 Subsequent hospital visit by physician Martha Mammo 1 [facility] Comment on above: Abnormal mammogram Start: 12-03-2022 End: 12-03-2022 ambulatory KAROLINA Cota [facility] Ambulatory Start: 10-16-[address] Work Phone: [facility] Work Phone: Start: 07-02-2022 Office outpatient vi sit [facility] Start: 07-02-2022 End: 07-02-2022 ambulatory DO Danielle Infante Work Phone: [facility] Work Phone: Start: 07-02-2022 End: 07-02-2022 Patient encounter procedure DO Danielle Infante Work Phone: [facility] 250 Start: 04-14-2022 Rx Renewal Rafaela [address]abria rd Work Phone: YO-NPWO-Mzbomfig 200 Work Phone: Start: 03-17-2022 Rx Renewal Rafaela Sanabria rd Work Phone: CK-MUGU-Nheeslfz 200 Work Phone: Start: 02-10-2022 ambulatory Ms. Rafaela Arguello Facility:[id number] Start: 02-10-2022 Office outpatient vi sit 25 minutes Rafaela Arguello Work Phone: GF-OCWR-Nhevjsgz 200 Work Phone: Start: 10-30-2021 Rx Renewal Rafaela Sanabria rd Work Phone: EV-CZYB-Jlugdxge 200 Work Phone: Start: 10-17-2021 End: 10-17-2021 Patient encounter procedure Roula Bledsoe APRN.CNP Work Phone: [facility] [place] Comment on above: Lentigines (Primary Dx); Multiple benign nevi; Becerril angioma; Exposure to tanning bed, sequela; Hx of malignant melanoma; Dermatofibroma Start: 10-14-2021 Office consultation new/estab patient 60 min Rafaela Arguello Work Phone: [employer] Work Phone: Start: 10-14-2021 Patient encounter procedure Rafaela Arguello Work Phone: MP-FriendsEAT-Armando Work Phone: Start: 10-08-2021 Office outpatient vi sit 25 minutes Rafaela Arguello Work Phone: KP-BRHE-Lnqnvjue 200 Work Phone: Start: 10-08-2021 ambulatory Ms. Rafaela Arguello Facility:[id number] Start: 10-07-2021 End: 10-07-2021 Departed Referred DO Danielle Infante Work Phone: [facility] Start: 10-02-2021 Rx Renewal Rafaela Sanabria rd Work Phone: NA-TCRY-Dysjozen 200 Work Phone: Start: 09-06-2021 Patient encounter procedure Rafaela E Hema Work Phone: [facility] Work Phone: Start: 09-06-2021 ambulatory Ms. Rafaela Arguello Facility:[id number] Start: 07-12-2021 End: 07-12-[address] SHASHANK BARAJAS Facility:H1 Start: 07-11-2021 Encounter for preprocedural cardiovascular examination DR MATT STAPLETON [facility] Start: 07-10-2021 End: 07-11-[address] MATT STAPLETON Facility:H1 Start: 07-10-2021 End: 07-11-2021 Encounter for preprocedural cardiovascular examination DR MATT STAPLETON Facility:H1 Start: 07-09-[address] MATT STAPLETON Facility :H1 Start: 07-01-[address] Work Phone: KL-OCFE-Lemwucid 200 Work Phone: Start: 06-28-2021 Chart Update Rafaela Sanabria rd Work Phone: BI-CEBO-Zffncsxc 200 Work Phone: Start: 06-27-[address] Work Phone: AC-IFBZ-Hranelzo 200 Work Phone: Start: 06-21-2021 End: 06-22-[address] MATT STAPLETON Facility:H1 Start: 06-04-2021 Office outpatient vi sit 25 minutes Rafaela Arguello Work Phone: NF-NIEX-Gqfxyuto 200 Work Phone: Start: 06-04-2021 Patient encounter procedure Rafaela Arguello Work Phone: ME-RAGU-Fkupkmkb 200 Work Phone: Start: 06-04-2021 ambulatory Ms. Rafaela Arguello Facility:[id number] Start: 03-25-2021 End: 03-25-[address] MATT STAPLETON Facility:H1 Start: 12-07-2019 Patient encounter procedure Rafaela Arguello MH-SJAA-Uvhejwmy 200 Work Phone: Start: 05-16-2019 Patient encounter procedure Rafaela Arguello NG-LKZT-Tafn [facility] Work Phone: Start: 09-27-2018 Patient encounter procedure Rafaela Arguello JY-EESD-Vmlm [address] [facility] Work Phone: Start: 09-14-2018 Patient encounter procedure Rafaela Arguello VA-JNOL-Ykis [address] [facility] Work Phone: Start: 07-17-2017 Patient encounter procedure Rafaela Arguello BL-XUQA-Qufv [address] [facility] Work Phone: Procedures Date Procedure Procedure Detail Performing Clinician Start: 04-27-2023 Follow-up visit Follow-up JHONNY LEE Start: 02-19-2023 DRUG SCREEN, URINE W ITH REFLEX TO CONFIRMATION KAROLINA MAN Start: 02-19-2023 AMB REFERRAL TO NEUROLOGY KAROLINA MAN Start: 12-19-2022 BI US BREAST LIMITED LEFT KAROLINA MAN Start: 12-19-2022 BI MAMMO BILATERAL DIAGNOSTIC TOMOSYNTHESIS KAROLINA MAN Start: 12-19-2022 Us breast uni real t sharath with image limited Karolina Man DO Work Phone: Start: 12-19-2022 Diagnostic mammograp hy computer-aided detcj bi Karolina Man DO Work Phone: Start: 12-03-2022 Comprehensive metabo lic 2000 panel - Serum or Plasma KAROLINA MAN Start: 12-03-2022 VITAMIN D 25-HYDROXY,TOTAL KAROLINA MAN Start: 10-17-2022 Microscopic observat ion [Identifier] in Cervix by Cyto stain Jhonny Lee MD Work Phone: Start: 07-02-2022 X-ray of right foot DO Danielle Infante Work Phone: Start: 03-25-2021 Microscopic observat ion [Identifier] in Cervix by Cyto stain Stj 1 Start: 04-23-2020 Lipid 1996 panel - S mehul or Plasma Stj 1 Start: 12-07-2019 25 hydroxy includes fractions if performed Rafaela Arguello Start: 12-07-2019 CBC W Auto Different ial panel - Blood Rafaela Arguello Start: 12-07-2019 Comprehensive metabo lic 2000 panel Rafaela Arguello Start: 12-07-2019 FFD mammogram Breast screening Rafaela Arguello Start: 12-07-2019 Lipid panel Rafaela Kay chavira Start: 12-07-2019 TSH WITH REFLEX TO F REE T4 IF ABNORMAL Rafaela Arguello Adenoidectomy withou t tonsillectomy Rafaela Arguello History of Gallbl[place] er Surgery Rafaela Arguello Hyperlipidemia screening Tho francesca Sherman Other Procedure on back Rafaela croft Work Phone: Removal of suture Bolivar For anabell Other Tonsillectomy Rafaela Arguello Total replacement of hip Keaton Arguello Plan of Treatment Date Care Activity Detail Author Start: 10-26-2037 Zoster Vaccines (1 o f 2) Zoster Vaccines (1 of 2) [facility] Start: 10-17-2025 Screening for malignant neoplasm of cervix [facility] Start: 04-23-2025 Lipid panel Lipid Panel [facility] Start: 03-25-2024 Screening for malignant neoplasm of cervix [facility] Start: 11-08-2023 Influenza vaccination Influenz a Vaccine (Season Ended) [facility] Start: 10-14-2023 End: 10-14-2023 Patient encounter procedure 10/14/2023 3:15 PM EDT Office Visit [facility] [address] [place] [address] Jhonny Lee MD [address] [facility], [facility] [address] [place] [address] [facility] Start: 09-05-2023 Bacteria identified in Urine by Culture [facility] Start: 07-22-2023 End: 07-22-2023 Patient encounter procedure 07/22/2023 3:15 PM EDT Office Visit [facility] [address] [facility] [address] [place] [id number] Jhonny Lee MD [address] [facility], [facility] [address] [place], [place] [address] [facility] Start: 04-27-2023 End: 04-27-2023 Patient encounter procedure 04/27/2023 3:15 PM EST Office Visit [facility] [address] [id number] Jhonny Lee MD [address] [facility], [address] [id number] [facility] Start: 03-09-2023 Behavioral Health Screening Behavioral Health Screening [facility] Start: 03-04-2023 End: 03-04-2023 Patient encounter procedure 03/04/2023 8:40 AM EST Office Visit [facility] [id number] [address] [place] [address] [address] [facility] Start: 02-19-2023 End: 02-20-2024 Drugs of abuse screen W Reflex confirm panel - Urine [facility] Service Area Work Phone: Comment on above: Expected: 02/19/2023 (Approximate), Expires: 02/20/2024 Start: 02-19-2023 End: 02-19-2023 Patient encounter procedure 02/19/2023 10:15 AM EST Office Visit [facility] [address] [place] [address] Jhonny Lee MD [address] [facility], [address] [place] [address] [facility] Start: 11-07-2022 COVID-19 Vaccine () COVID-19 Vaccine () [facility] Start: 11-07-2022 Influenza vaccination Influenza Vacc ine (#1) [facility] Start: 01-21-2022 FUV, Provider: Luz Aguilar, Status: Pen, Time: 3:40 PM FUV, Provider: Luz Aguilar, Status: Pen, Time: 3:40 PM [id number] Work Phone: Start: 01-20-2022 [id number], Provider: Bisi Prabhakar, Status: Pen, Time: 5:00 PM [id number], Provider: Bisi Prabhakar, Status: Pen, Time: 5:00 PM [facility] Work Phone: Start: 01-13-2022 [id number], Provider: Bisi Prabhakar, Status: Pen, Time: 5:00 PM [id number], Provider: Bisi Prabhakar, Status: Pen, Time: 5:00 PM [facility] Work Phone: Start: 01-08-2022 [id number], Provider: Bisi Prabhakar, Status: Pen, Time: 4:00 PM [id number], Provider: Bisi Prabhakar, Status: Pen, Time: 4:00 PM [facility] Work Phone: Start: 01-01-2022 [id number], Provider: Bisi Prabhakar, Status: Pen, Time: 4:00 PM [id number], Provider: Bisi Prabhakar, Status: Pen, Time: 4:00 PM [facility] Work Phone: Start: 12-25-2021 [id number], Provider: Bisi Prabhakar, Status: Pen, Time: 4:00 PM [id number], Provider: Bisi Prabhakar, Status: Pen, Time: 4:00 PM [facility] Work Phone: Start: 12-17-2021 [id number], Provider: Bisi Prabhakar, Status: Pen, Time: 5:00 PM [id number], Provider: Bisi Prabhakar, Status: Pen, Time: 5:00 PM [facility] Work Phone: Start: 11-07-2021 Influenza vaccination INFLUENZA (#1) [facility] Start: 10-16-2021 NPV, Provider: Nafisa Bermudez, Status: Pen, Time: 1:00 PM NPV, Provider: Nafisa Bermudez, Status: Pen, Time: 1:00 PM [id number] Work Phone: Start: 10-08-2021 VIRFUVHOME, Provider : Rafaela Arguello, Status: Pen, Time: 11:40 AM VIRFUVHOME, Provider: Rafaela Arguello, Status: Pen, Time: 11:40 AM [id number] 200 Work Phone: Start: 09-30-2021 FUV, Provider: Luz Aguilar, Status: Pen, Time: 1:40 PM FUV, Provider: Luz Aguilar, Status: Pen, Time: 1:40 PM [facility] [place] [facility] Work Phone: Start: 09-18-2021 [id number], Provider: Bisi Prabhakar, Status: Pen, Time: 10:00 AM [id number], Provider: Bisi Prabhakar, Status: Pen, Time: 10:00 AM [facility] Work Phone: Start: 09-06-2021 [id number], Provider: Bisi Prabhakar, Status: Pen, Time: 8:00 AM [id number], Provider: Bisi Prabhakar, Status: Pen, Time: 8:00 AM [facility] Work Phone: Start: 08-02-2021 FUV, Provider: Luz Aguilar, Status: Pen, Time: 8:20 AM FUV, Provider: Luz Aguilar, Status: Pen, Time: 8:20 AM [facility] Work Phone: Start: 06-21-2021 NPV, Provider: Luz Aguilar, Status: Pen, Time: 8:00 AM NPV, Provider: Luz Aguilar, Status: Pen, Time: 8:00 AM [facility] Work Phone: Start: 03-27-2021 COVID-19 VACCINE (3 - Booster for Pfizer series) COVID-19 VACCINE (3 - Booster for Pfizer series) [facility] Start: 12-20-2020 COVID-19 Vaccine (3 - Pfizer series) COVID-19 Vaccine (3 - Pfizer series) [facility] Start: 01-09-2020 FFD mammogram Breast screening Mamm - Ultrasound of Breast [facility] 200 Work Phone: Start: 10-26-2017 HPV TESTING HPV TESTING [facility] Start: 10-26-2009 DTaP/Tdap/Td Vaccine s (1 - Tdap) DTaP/Tdap/Td Vaccines (1 - Tdap) [facility] Start: 10-26-2008 PAP TESTING PAP TESTING [facility] Start: 10-26-2008 Screening for malignant neoplasm of cervix [facility] Start: 10-26-2006 Hepatitis B Vaccine (1 of 3 - 19+ 3-dose series) Hepatitis B Vaccine (1 of 3 - 19+ 3-dose series) [facility] Start: 10-26-2006 Hepatitis B Vaccines (1 of 3 - 19+ 3-dose series) Hepatitis B Vaccines (1 of 3 - 19+ 3-dose series) [facility] Start: 10-26-2006 Urine microalbumin profile [facility] Start: 10-26-2005 HEPATITIS C SCREENING HEPATITIS C [facility] Start: 10-26-2005 Hepatitis C screening Hepatitis C [facility] Start: 10-26-2005 HIV SCREENING HIV SCREENING [facility] Start: 10-26-2005 HIV screening HIV Screening [facility] Start: 10-26-2000 Varicella vaccination Varicell a Vaccines (1 of 2 - 13+ 2-dose series) [facility] Start: 1999 Adult depression screening assessment DEPRESSION SCREENING [facility] Start: 10-26-1988 MMR Vaccines (1 of 1 - Standard series) MMR Vaccines (1 of 1 - Standard series) [facility] Start: 10-26-1988 Varicella vaccination Varicell a Vaccines (1 of 2 - 2-dose childhood series) [facility] Start: 1987 HEPATITIS B (1 of 3 - 3-dose series) HEPATITIS B (1 of 3 - 3-dose series) [facility] Start: 1987 Hepatitis B Vaccines (1 of 3 - 3-dose series) Hepatitis B Vaccines (1 of 3 - 3-dose series) [facility] Start: 1987 HIV screening HIV Screening [facility] Start: 1987 Yearly Adult Physical Yearly Adult P hysical [facility] [id number] 200 Work Phone: NEGATED: Highlighted row has been ruled out! Planned Goals not documented [id number] 200 Work Phone: Immunizations Immunization Date Immunization Notes Care Provider Elina flores 10-25-2020 Pfizer-BioNTech COVI D-19 Vacc 30 MCG/0.3ML Intramuscular Suspension Rafaela Arguello Work Phone: [id number] 200 Work Phone: 10-04-2020 Pfizer-BioNTech COVI D-19 Vacc 30 MCG/0.3ML Intramuscular Suspension Rafaela Arguello Work Phone: [id number] 200 Work Phone: Payers Date Payer Category Payer Self-pay [id number] 2020 Unknown 1987 Unknown [id number] 2.16.84 [id number] 1987 Unknown [id number] 2.16.84 [id number] 1987 Unknown [id number] 2.16.84 0.1.395066.3.579.2.593 1987 Unknown [id number] 2.16.84 0.1.640676.3.579.2.593 1987 Unknown [id number] 2.16.84 0.1.103644.3.579.2.593 1987 Unknown [id number] 2.16. 840.1.973884.3.579.2.356 1987 Unknown [id number] 2.16. 840.1.505830.3.579.2.356 1987 Unknown [id number] 2.16. 840.1.157237.3.579.2.356 1987 Unknown [id number] 2.16. 840.1.076382.3.579.2.356 1987 Unknown [id number] 2.16. 840.1.667865.3.579.2.356 1987 Unknown [id number] 2.16.84 0.1.530521.3.579.2.1243 1987 Unknown [id number] 2.16.84 0.1.579696.3.579.2.1243 1987 Unknown [id number] 2.16.84 0.1.639692.3.579.2.1259 1987 Unknown [id number] 2.16.8 40.1.907125.3.579.2.1244 1987 Unknown [id number] 2.16.8 40.1.917577.3.579.2.1244 1987 Unknown [id number] 2.16.8 40.1.861716.3.579.2.1244 1987 Unknown [id number] 2.16.8 40.1.133509.3.579.2.1244 1987 Unknown [id number] 2.16.8 40.1.823397.3.579.2.1244 1959 Unknown [id number] Unknown [id number] 2.16.8 40.1.931406.3.579.2.531 Social History Date Type Detail Facility Assertion Tobacco smoking consumption unknown (finding) [id number] Work Phone: Start: 12-03-2022 End: 09-01-2023 Non-smoker Non-smoker [facility] Start: 02-19-2023 End: 09-05-2023 Tobacco smoking status NHIS Never smoked tobacco [facility] Start: 10-17-2021 End: 09-01-2023 Alcohol intake Current drinker of alcohol (finding) [facility] Start: 05-14-2010 History SDOH Alcohol Comment occasional [facility] Start: 1987 Sex Assigned At Not on file C [facility] Start: 1987 Sex Assigned At Female F [facility] Start: 12-03-2022 End: 09-01-2023 Sex Assigned At [facility] Tobacco smoking stat us NHIS Tobacco smoking consumption unknown [facility] Work Phone: Start: 12-09-2022 End: 07-22-2023 Exposure to SARS-CoV-2 (event) Not sure [facility] Start: 02-19-2023 Tobacco use and exposure Smokeless tobacco non-user [facility] Work Phone: Start: 02-19-2023 End: 07-22-2023 Alcohol intake Defer [facility] Work Phone: National Score (1-100), lower number is lower risk 52 [facility] Functional Status Date Assessment Result Facility NEGATED: Highlighted row Functional performance Functional status health issues are not documented Disease [id number] Work Phone: Mental Status Date Assessment Result Facility NEGATED: Highlighted row Cognitive function [Interpretation] Cognitive status health issues are not documented Disease [id number] Work Phone: Clinical Notes 03-04-2012 to 09-01-2023 Roula Bledsoe APRN.TELEPHONE CLEANER - 09/01/2023 11:20 AM Miri Lee MD - 07/22/2023 3:15 PM Miri Lee MD - 04/27/2023 3:15 PM Elizabeth Cota DO [place] - 03/04/2023 8:40 AM EST Note Date & Type Note Facility 09-01-2023 Note HNO ID: [id number] Author: ROULA BLEDSOE APRN.TELEPHONE CLEANER Service: ? Author Type: Nurse Practitioner Type: Progress Notes Filed: 09/01/2023 11:42 Note Text: SKIN EXAM ESTABLISHED LAST OFFICE VISIT: 10/17/2021 CC: This patient is a 37 year old female. Patient presents with: Full Body Skin Check HPI: Location: left lower leg Appearance (size, shape, color): pink spot Duration: at least 2 years Symptoms (growing, itching, bleeding, tender): change in color Treatments: none Was noted as DF at last OV Location: right 3rd toe Appearance (size, shape, color): mole Duration: a few months Symptoms (growing, itching, bleeding, tender): new Treatments: none -Personal history of skin cancer: Yes 08/2015 Melanoma: right lower leg -History of blistering sunburns:Yes -Family history of skin cancer: No -Personal history of tanning bed use: Yes, excessive use during teenage years SOC: Social History Tobacco Use Smoking status: Never Substance Use Topics Alcohol use: Yes Comment: occasional Drug use: No MEDS: Current outpatient prescriptions: Current Outpatient Medications on File Prior to Visit Medication Sig buPROPion XL (WELLBUTRIN XL) 150 mg 24 hr tablet TAKE 1 TABLET BY MOUTH ONCE DAILY IN THE MORNING. DO NOT CRUSH, CHEW, OR SPLIT. dexmethylphenidate XR (FOCALIN XR) 10 mg biphasic capsule TAKE 1 CAPSULE BY MOUTH EVERY DAY DO NOT CRUSH/CHEW/SPLIT MULTI-VITAMIN ORAL Take by mouth. traZODone (DESYREL) 50 mg tablet Take 50 mg by mouth at bedtime as needed. drospir-eth estra-levomefol Ca (BEYAZ) 3-0.02-0.451 mg (24) ORAL Tab Take 1 tablet by mouth once daily. No current facility-administered medications on file prior to visit. ALLERGY: ALLERGIES Allergen Reactions Nsaids (Non-Steroid* Other: See Comments Pt states adverse reaction of ulcers occurs advised not to take REVIEW OF SYSTEMS: Patient feels well and denies any recent fevers, chills, or nightsweats. PHYSICAL EXAM: The patient is a pleasant female in no distress. Patient appears healthy, well developed, well nourished and in otherwise good health. Alert and oriented x 3. A skin exam was done of the Scalp, face, ears, neck, chest, back, abdomen, bilateral upper extremities, bilateral lower extremities, buttocks, nails and hair. Robert Skin Type: II IMPRESSION: Left medial knee and left lateral lower leg light brown firm sq nodule Densely scattered light lamas macules noted on all sun exposed areas Regular and symmetric hyperpigmented macules and papules throughout Small becerril red papules throughout A/P: (D23.9) Dermatofibroma - also known as histiocytomas - common benign skin lesions - often times arises at site of trauma (bug bite etc) - may be tender or pruritic - very common on women's legs - common to have multiple Treatment: - no treatment is needed unless symptomatic (L81.4) Solar lentigines (D22.9) Multiple benign nevi (D18.01) Angiomas of skin -Discussed etiology and educated. -Reassured benign nature. -Continue to monitor (Z85.820) Hx of malignant melanoma - Reassured no obvious evidence of recurrence today - Continue monthly self exams - Recommend every 12 month skin exams - Contact office with any suspicious lesions in between follow up I counseled the patient after the exam about the ABCDEs of nevus evaluation, pre-cancer,skin cancer surveillance with monthly self skin exams. Sunscreen / sunblock protection reviewed. The patient is seen and examined by Roula Bledsoe CNP and the following reflects his/her service. Scribed by Karolina Alcantara LPN /Gini Hanna MA I agree with the Chief Complaint, ROS, and Past Histories independently gathered by the clinical application support technician and the remaining scribed note accurately describes my personal service to the patient. Roula Bledsoe APRN.MARCELINA September 01, 2023 11:26 AM Medical Decision Making: Problems: Moderate: 2+ stable chronic illnesses Risk: Low: Low risk from testing/treatment Medical Decision Making Level: 3 - Low [facility] 09-01-2023 History of Present illness Narrative SKIN EXAM ESTABLISHED LAST OFFICE VISIT: 10/17/2021 CC: This patient is a 37 year old female. Patient presents with: Full Body Skin Check HPI: Location: left lower leg Appearance (size, shape, color): pink spot Duration: at least 2 years Symptoms (growing, itching, bleeding, tender): change in color Treatments: none Was noted as DF at last OV Location: right 3rd toe Appearance (size, shape, color): mole Duration: a few months Symptoms (growing, itching, bleeding, tender): new Treatments: none -Personal history of skin cancer: Yes 08/2015 Melanoma: right lower leg -History of blistering sunburns:Yes -Family history of skin cancer: No -Personal history of tanning bed use: Yes, excessive use during teenage years SOC: Social History Tobacco Use Smoking status: Never Substance Use Topics Alcohol use: Yes Comment: occasional Drug use: No MEDS: Current outpatient prescriptions: Current Outpatient Medications on File Prior to Visit Medication Sig buPROPion XL (WELLBUTRIN XL) 150 mg 24 hr tablet TAKE 1 TABLET BY MOUTH ONCE DAILY IN THE MORNING. DO NOT CRUSH, CHEW, OR SPLIT. dexmethylphenidate XR (FOCALIN XR) 10 mg biphasic capsule TAKE 1 CAPSULE BY MOUTH EVERY DAY DO NOT CRUSH/CHEW/SPLIT MULTI-VITAMIN ORAL Take by mouth. traZODone (DESYREL) 50 mg tablet Take 50 mg by mouth at bedtime as needed. drospir-eth estra-levomefol Ca (BEYAZ) 3-0.02-0.451 mg (24) ORAL Tab Take 1 tablet by mouth once daily. No current facility-administered medications on file prior to visit. ALLERGY: ALLERGIES Allergen Reactions Nsaids (Non-Steroid* Other: See Comments Pt states adverse reaction of ulcers occurs advised not to take REVIEW OF SYSTEMS: Patient feels well and denies any recent fevers, chills, or nightsweats. PHYSICAL EXAM: The patient is a pleasant female in no distress. Patient appears healthy, well developed, well nourished and in otherwise good health. Alert and oriented x 3. A skin exam was done of the Scalp, face, ears, neck, chest, back, abdomen, bilateral upper extremities, bilateral lower extremities, buttocks, nails and hair. Robert Skin Type: II IMPRESSION: Left medial knee and left lateral lower leg light brown firm sq nodule Densely scattered light lamas macules noted on all sun exposed areas Regular and symmetric hyperpigmented macules and papules throughout Small becerril red papules throughout A/P: (D23.9) Dermatofibroma - also known as histiocytomas - common benign skin lesions - often times arises at site of trauma (bug bite etc) - may be tender or pruritic - very common on women's legs - common to have multiple Treatment: - no treatment is needed unless symptomatic (L81.4) Solar lentigines (D22.9) Multiple benign nevi (D18.01) Angiomas of skin -Discussed etiology and educated. -Reassured benign nature. -Continue to monitor (Z85.820) Hx of malignant melanoma - Reassured no obvious evidence of recurrence today - Continue monthly self exams - Recommend every 12 month skin exams - Contact office with any suspicious lesions in between follow up I counseled the patient after the exam about the ABCDEs of nevus evaluation, pre-cancer,skin cancer surveillance with monthly self skin exams. Sunscreen / sunblock protection reviewed. The patient is seen and examined by Roula Bledsoe CNP and the following reflects his/her service. Scribed by Karolina Alcantara LPN /Gini Hanna MA I agree with the Chief Complaint, ROS, and Past Histories independently gathered by the clinical application support technician and the remaining scribed note accurately describes my personal service to the patient. Roula Bledsoe APRN.CNP September 01, 2023 11:26 AM Medical Decision Making: Problems: Moderate: 2+ stable chronic illnesses Risk: Low: Low risk from testing/treatment Medical Decision Making Level: 3 - Low documented in this encounter [facility] 07-22-2023 History of Present illness Narrative Michael Weller 37 y.o. SUBJECTIVE Encephalopathy Presenting symptoms: no confusion Associated symptoms: no abdominal pain, no agitation, no fever, no hallucinations, no headaches, no light-headedness, no nausea, no palpitations, no rash, no seizures, no vomiting and no weakness Michael is a 37-year-old young lady who was seen today for follow-up of her encephalopathy due to attention deficit disorder with a history of anxiety disorder. Since last seen she has been doing very well on Focalin XR 10 in the morning and takes 5 in the afternoon and evening as needed when she has long hours. She can tell a big difference when she is on medicine compared to off medicine. No side effects of medication. Today her physical and neurological examination was normal. I would like to continue her medicine the way she is taking and have discussed the controlled substance policy, visit potential risk benefit and see her back in 3 months. I did review the medication list. Due to technical limitations of voice recognition and human error, this note may not accurately reflect the care of the patient. Review of Systems Constitutional: Negative for fatigue, fever and unexpected weight change. HENT: Negative for dental problem, ear pain, hearing loss, sinus pressure, tinnitus and trouble swallowing. Eyes: Negative for photophobia, pain and visual disturbance. Respiratory: Negative for cough, shortness of breath and wheezing. Cardiovascular: Negative for chest pain, palpitations and leg swelling. Gastrointestinal: Negative for abdominal pain, nausea and vomiting. Genitourinary: Negative for difficulty urinating, enuresis and frequency. Musculoskeletal: Negative for arthralgias, back pain, joint swelling, neck pain and neck stiffness. Skin: Negative for pallor and rash. Allergic/Immunologic: Negative for food allergies. Neurological: Negative for dizziness, tremors, seizures, syncope, facial asymmetry, speech difficulty, weakness, light-headedness, numbness and headaches. Hematological: Negative for adenopathy. Does not bruise/bleed easily. Psychiatric/Behavioral: Negative for agitation, behavioral problems, confusion, hallucinations and sleep disturbance. The patient is not hyperactive. 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 Overweight Pelvic floor dysfunction Pelvic pain in female Vitamin D deficiency Angioma of skin Chronic nasopharyngitis Exposure to tanning bed Multiple benign nevi Personal history of malignant melanoma of skin Reflux esophagitis Skin tag Solar lentigo Submandibular gland infection Past Medical History: Diagnosis Date Personal history of malignant melanoma of skin History of malignant melanoma of skin Personal history of other diseases of the circulatory system History of cardiac murmur Past Surgical History: Procedure Laterality Date ADENOIDECTOMY 07/17/2017 Adenoidectomy GALLBLADDER SURGERY 07/17/2017 Gallbladder Surgery OTHER SURGICAL HISTORY 10/22/2021 Back surgery TONSILLECTOMY 07/17/2017 Tonsillectomy TOTAL HIP ARTHROPLASTY 07/17/2017 Hip Replacement reports that she has never smoked. She has never used smokeless tobacco. Alcohol use questions deferred to the physician. She reports that she does not use drugs. BP 118/78 (BP Location: Left arm, Patient Position: Sitting, BP Cuff Size: Large adult) Pulse (!) 111 Ht 1.651 m (5' 5 ) Wt 83.7 kg (184 lb 9.6 oz) BMI 30.72 kg/m OBJECTIVE Physical Exam/Neurological Exam Constitutional: General appearance: no acute distress Auscultation of Heart: Regular rate and rhythm, no murmurs, normal S1 and S2. Carotid Arteries: Intact without any bruits. Neck is supple. No lymph adenopathy. Peripheral Vascular Exam: Pulses +2 and equal in all extremities. No swelling, varicosities, edema or tenderness to palpations. Abdomen is soft, nondistended. No organomegaly. Mental status: The patient was in no distress, alert, interactive and cooperative. Affect is appropriate. Orientation: oriented to person, oriented to place and oriented to time. Memory: recent memory intact and remote memory intact. Attention: normal attention span and normal concentrating ability. Language: normal comprehension and no difficulty naming common objects. Fund of knowledge: Patient displays adequate knowledge of current events, adequate fund of knowledge regarding past history and adequate fund of knowledge regarding vocabulary. Eyes: The ophthalmoscopic examination was normal. The fundi are visualized with normal disc margins and without. Cranial nerve II: Visual corrales full to confrontation. Cranial nerves III, IV, and : Pupils round, equally reactive to light; no ptosis. EOMs intact. No nystagmus. Cranial Nerve V: Facial sensation intact bilaterally. Cranial nerve VII: Normal and symmetric facial strength. Cranial nerve VIII: Hearing is intact bilaterally to finger rub / whisper. Cranial nerves IX and X: Palate elevates symmetrically. Cranial nerve XI: Shoulder shrug and neck rotation strength are intact. Cranial nerve XII: Tongue midline with normal strength. Motor: Motor exam was normal. Muscle bulk was normal in both upper and lower extremities. Muscle tone was normal in both upper and lower extremities. Muscle strength was 5/5 throughout. no abnormal or adventitious movements were present. Deep Tendon Reflexes: left biceps 2+ , right biceps 2+, left triceps 2+, right triceps 2+, left brachioradialis 2+, right brachioradialis 2+, left patella 2+, right patella 2+, left ankle jerk 2+, right ankle jerk 2+ Plantar Reflex: Toes downgoing to plantar stimulation on the left. Toes downgoing to plantar stimulation on the right. Sensory Exam: Normal to light touch. Coordination: There is no limb dystaxia and rapid alternating movements are intact. Gait: Gait is normal without spasticity, ataxia or bradykinesia. Stance is stable with a negative Romberg. ASSESSMENT/PLAN Diagnoses and all orders for this visit: Encephalopathy Attention deficit hyperactivity disorder (ADHD), predominantly inattentive type - dexmethylphenidate XR (Focalin XR) 10 mg 24 hr capsule; Take 1 capsule (10 mg) by mouth once daily. Do not crush, chew, or split. - dexmethylphenidate XR (Focalin XR) 10 mg 24 hr capsule; Take 1 capsule (10 mg) by mouth once daily. Do not crush, chew, or split. Do not fill before August 21, 2023. - dexmethylphenidate XR (Focalin XR) 10 mg 24 hr capsule; Take 1 capsule (10 mg) by mouth once daily. Do not crush, chew, or split. Do not fill before September 20, 2023. - dexmethylphenidate (Focalin) 5 mg tablet; Take 1 tablet (5 mg) by mouth 2 times a day. At 3 pm and 6 pm as needed. - dexmethylphenidate (Focalin) 5 mg tablet; Take 1 tablet (5 mg) by mouth 2 times a day. 1-0 at 3 pm, and 6 pm as needed. Do not fill before August 21, 2023. - dexmethylphenidate (Focalin) 5 mg tablet; Take 1 tablet (5 mg) by mouth 2 times a day. At 3 pm and 6 pm as needed. Do not fill before September 20, 2023. Insomnia due to medical condition Anxiety Jhonny Lee MD 07/22/2023 3:01 PM documented in this encounter [facility] Work Phone: 04-27-2023 History of Present illness Narrative Michael Weller 37 y.o. SUBJECTIVE HPI Michael is a 37-year-old young lady who was seen today for follow-up of her encephalopathy due to attention deficit disorder with difficulty at work at home. Since last seen after starting her on Focalin XR 10 in the morning and 5 in the afternoon evening she is doing very well and has been sleeping a lot better. She was started on multiple other medication including Wellbutrin which she did not like and was keeping her up at night. Today her physical and neurological examination was normal. I would like to continue her Focalin the way she is taking and have discussed the controlled substance policy, abusive potential, risk benefit and the precautions to be taken and depending on how she does I might make future recommendation when she comes back to see me in 3 months. I did review the medication list. Due to technical limitations of voice recognition and human error, this note may not accurately reflect the care of the patient. Review of Systems Constitutional: Negative for fatigue, fever and unexpected weight change. HENT: Negative for dental problem, ear pain, hearing loss, sinus pressure, tinnitus and trouble swallowing. Eyes: Negative for photophobia, pain and visual disturbance. Respiratory: Negative for cough, shortness of breath and wheezing. Cardiovascular: Negative for chest pain, palpitations and leg swelling. Gastrointestinal: Negative for abdominal pain, nausea and vomiting. Genitourinary: Negative for difficulty urinating, enuresis and frequency. Musculoskeletal: Negative for arthralgias, back pain, joint swelling, neck pain and neck stiffness. Skin: Negative for pallor and rash. Allergic/Immunologic: Negative for food allergies. Neurological: Negative for dizziness, tremors, seizures, syncope, facial asymmetry, speech difficulty, weakness, light-headedness, numbness and headaches. Hematological: Negative for adenopathy. Does not bruise/bleed easily. Psychiatric/Behavioral: Negative for agitation, behavioral problems, confusion, hallucinations and sleep disturbance. The patient is not hyperactive. 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 Overweight Pelvic floor dysfunction Pelvic pain in female Vitamin D deficiency Angioma of skin Chronic nasopharyngitis Exposure to tanning bed Multiple benign nevi Personal history of malignant melanoma of skin Reflux esophagitis Skin tag Solar lentigo Submandibular gland infection Past Medical History: Diagnosis Date Personal history of malignant melanoma of skin History of malignant melanoma of skin Personal history of other diseases of the circulatory system History of cardiac murmur Past Surgical History: Procedure Laterality Date ADENOIDECTOMY 07/17/2017 Adenoidectomy GALLBLADDER SURGERY 07/17/2017 Gallbladder Surgery OTHER SURGICAL HISTORY 10/22/2021 Back surgery TONSILLECTOMY 07/17/2017 Tonsillectomy TOTAL HIP ARTHROPLASTY 07/17/2017 Hip Replacement reports that she has never smoked. She has never used smokeless tobacco. Alcohol use questions deferred to the physician. She reports that she does not use drugs. BP 104/60 (BP Location: Left arm, Patient Position: Sitting, BP Cuff Size: Large adult) Pulse (!) 123 Resp 14 Ht 1.651 m (5' 5 ) Wt 93.1 kg (205 lb 3.2 oz) BMI 34.15 kg/m OBJECTIVE Physical Exam/Neurological Exam Constitutional: General appearance: no acute distress Auscultation of Heart: Regular rate and rhythm, no murmurs, normal S1 and S2. Carotid Arteries: Intact without any bruits. Neck is supple. No lymph adenopathy. Peripheral Vascular Exam: Pulses +2 and equal in all extremities. No swelling, varicosities, edema or tenderness to palpations. Abdomen is soft, nondistended. No organomegaly. Mental status: The patient was in no distress, alert, interactive and cooperative. Affect is appropriate. Orientation: oriented to person, oriented to place and oriented to time. Memory: recent memory intact and remote memory intact. Attention: normal attention span and normal concentrating ability. Language: normal comprehension and no difficulty naming common objects. Fund of knowledge: Patient displays adequate knowledge of current events, adequate fund of knowledge regarding past history and adequate fund of knowledge regarding vocabulary. Eyes: The ophthalmoscopic examination was normal. The fundi are visualized with normal disc margins and without. Cranial nerve II: Visual corrales full to confrontation. Cranial nerves III, IV, and : Pupils round, equally reactive to light; no ptosis. EOMs intact. No nystagmus. Cranial Nerve V: Facial sensation intact bilaterally. Cranial nerve VII: Normal and symmetric facial strength. Cranial nerve VIII: Hearing is intact bilaterally to finger rub / whisper. Cranial nerves IX and X: Palate elevates symmetrically. Cranial nerve XI: Shoulder shrug and neck rotation strength are intact. Cranial nerve XII: Tongue midline with normal strength. Motor: Motor exam was normal. Muscle bulk was normal in both upper and lower extremities. Muscle tone was normal in both upper and lower extremities. Muscle strength was 5/5 throughout. no abnormal or adventitious movements were present. Deep Tendon Reflexes: left biceps 2+ , right biceps 2+, left triceps 2+, right triceps 2+, left brachioradialis 2+, right brachioradialis 2+, left patella 2+, right patella 2+, left ankle jerk 2+, right ankle jerk 2+ Plantar Reflex: Toes downgoing to plantar stimulation on the left. Toes downgoing to plantar stimulation on the right. Sensory Exam: Normal to light touch. Coordination: There is no limb dystaxia and rapid alternating movements are intact. Gait: Gait is normal without spasticity, ataxia or bradykinesia. Stance is stable with a negative Romberg. ASSESSMENT/PLAN Diagnoses and all orders for this visit: Encephalopathy Attention deficit hyperactivity disorder (ADHD), predominantly inattentive type - dexmethylphenidate XR (Focalin XR) 10 mg 24 hr capsule; Take 1 capsule (10 mg) by mouth once daily. Do not crush, chew, or split. - dexmethylphenidate XR (Focalin XR) 10 mg 24 hr capsule; Take 1 capsule (10 mg) by mouth once daily. Do not crush, chew, or split. Do not start before May 26, 2023. - dexmethylphenidate XR (Focalin XR) 10 mg 24 hr capsule; Take 1 capsule (10 mg) by mouth once daily. Do not crush, chew, or split. Do not start before June 26, 2023. - dexmethylphenidate (Focalin) 5 mg tablet; Take 1 tablet (5 mg) by mouth 2 times a day. At 3 pm and 6 pm as needed. - dexmethylphenidate (Focalin) 5 mg tablet; Take 1 tablet (5 mg) by mouth 2 times a day. At 3 pm and 6 pm as needed. Do not start before May 26, 2023. - dexmethylphenidate (Focalin) 5 mg tablet; Take 1 tablet (5 mg) by mouth 2 times a day. 1-0 at 3 pm, and 6 pm as needed. Do not start before June 25, 2023. Insomnia due to medical condition Anxiety Jhonny Lee MD 04/27/2023 4:18 PM documented in this encounter [facility] Work Phone: 03-04-2023 History of Present illness Narrative Subjective Patient ID: Michael Weller is a 37 y.o. female who presents for No chief complaint on file.. Virtual or Telephone Consent An interactive audio and video telecommunication system which permits real time communications between the patient (at the originating site) and provider (at the distant site) was utilized to provide this telehealth service. Verbal consent was requested and obtained from Michael Weller on this date, 03/04/23 for a telehealth visit. Pt presents for follow up: Exercise 3 days/ week, pilates, strength training Needs Wellbutrin refilled Feels well Denies SI/HI Review of Systems Constitutional: Negative. Psychiatric/Behavioral: Negative. Objective There were no vitals taken for this visit. Physical Exam Constitutional: Appearance: Normal appearance. Pulmonary: Effort: Pulmonary effort is normal. Neurological: General: No focal deficit present. Mental Status: She is alert and oriented to person, place, and time. Psychiatric: Mood and Affect: Mood normal. Behavior: Behavior normal. Thought Content: Thought content normal. Judgment: Judgment normal. Virtual Visit Duration: 8 min Assessment/Plan Diagnoses and all orders for this visit: Anxiety - buPROPion XL (Wellbutrin XL) 150 mg 24 hr tablet; Take 1 tablet (150 mg) by mouth once daily in the morning. Do not crush, chew, or split. History of axillary LAD Reviewed Breast US from 2021 and 2022 w/ pt Recc she follow up with breast surgeon, she has established with Follow up for well woman exam Spring 2023 Advised pt to call sooner with any questions or concerns Karolina Man DO documented in this encounter [facility] Work Phone: 02-19-2023 History of Present illness Narrative Michael Weller 37 y.o. SUBJECTIVE HPI Michael 37-year-old young lady who was seen today for evaluation of a possible attention deficit disorder difficulty at work at home. 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 On the diagnostic checklist is suggestive of inattentive type of ADHD. Today her physical and neurological examination was normal and I would like to try her on Focalin XR 10 mg in the morning and take 5 in the afternoon and in the evening as needed since she is still having issues falling asleep or when she is working long hours. I discussed the controlled substance policy, abuse potential, risk benefit and the precautions to be taken and depending on how she does I might make future recommendation when she comes back to see me in 2 to 3 months As you recall, Devaughn is a 37-year-old young lady has been having difficulty at work as well as at home according to her she is having hard time with her attention span concentration and focusing. She is having hard time falling asleep and has tried high energy drink which does seem to be helping her when she is working in the evening or even falling asleep. 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 Her sister had history of ADHD and anxiety and mom and dad only had 12 education She was diagnosed anxiety after she was going through some medical issues and with multiple surgeries and has been doing well on Wellbutrin. Due to technical limitations of voice recognition and human error, this note may not accurately reflect the care of the patient. Review of Systems Constitutional: Negative for fatigue, fever and unexpected weight change. HENT: Negative for dental problem, ear pain, hearing loss, sinus pressure, tinnitus and trouble swallowing. Eyes: Negative for photophobia, pain and visual disturbance. Respiratory: Negative for cough, shortness of breath and wheezing. Cardiovascular: Negative for chest pain, palpitations and leg swelling. Gastrointestinal: Negative for abdominal pain, nausea and vomiting. Genitourinary: Negative for difficulty urinating, enuresis and frequency. Musculoskeletal: Negative for arthralgias, back pain, joint swelling, neck pain and neck stiffness. Skin: Negative for pallor and rash. Allergic/Immunologic: Negative for food allergies. Neurological: Negative for dizziness, tremors, seizures, syncope, facial asymmetry, speech difficulty, weakness, light-headedness, numbness and headaches. Hematological: Negative for adenopathy. Does not bruise/bleed easily. Psychiatric/Behavioral: Positive for decreased concentration and sleep disturbance. Negative for agitation, behavioral problems, confusion and hallucinations. The patient is nervous/anxious. The patient is not hyperactive. 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 Overweight Pelvic floor dysfunction Pelvic pain in female Vitamin D deficiency Angioma of skin Chronic nasopharyngitis Exposure to tanning bed Multiple benign nevi Personal history of malignant melanoma of skin Reflux esophagitis Skin tag Solar lentigo Submandibular gland infection Past Medical History: Diagnosis Date Personal history of malignant melanoma of skin History of malignant melanoma of skin Personal history of other diseases of the circulatory system History of cardiac murmur Past Surgical History: Procedure Laterality Date ADENOIDECTOMY 07/17/2017 Adenoidectomy GALLBLADDER SURGERY 07/17/2017 Gallbladder Surgery OTHER SURGICAL HISTORY 10/22/2021 Back surgery TONSILLECTOMY 07/17/2017 Tonsillectomy TOTAL HIP ARTHROPLASTY 07/17/2017 Hip Replacement reports that she has never smoked. She has never used smokeless tobacco. Alcohol use questions deferred to the physician. She reports that she does not use drugs. BP 117/83 Pulse 94 Ht 1.651 m (5' 5 ) Wt 98.3 kg (216 lb 12.8 oz) BMI 36.08 kg/m OBJECTIVE Physical Exam/Neurological Exam Constitutional: General appearance: no acute distress Auscultation of Heart: Regular rate and rhythm, no murmurs, normal S1 and S2. Carotid Arteries: Intact without any bruits. Neck is supple. No lymph adenopathy. Peripheral Vascular Exam: Pulses +2 and equal in all extremities. No swelling, varicosities, edema or tenderness to palpations. Abdomen is soft, nondistended. No organomegaly. Mental status: The patient was in no distress, alert, interactive and cooperative. Affect is appropriate. Orientation: oriented to person, oriented to place and oriented to time. Memory: recent memory intact and remote memory intact. Attention: normal attention span and normal concentrating ability. Language: normal comprehension and no difficulty naming common objects. Fund of knowledge: Patient displays adequate knowledge of current events, adequate fund of knowledge regarding past history and adequate fund of knowledge regarding vocabulary. Eyes: The ophthalmoscopic examination was normal. The fundi are visualized with normal disc margins and without. Cranial nerve II: Visual corrales full to confrontation. Cranial nerves III, IV, and : Pupils round, equally reactive to light; no ptosis. EOMs intact. No nystagmus. Cranial Nerve V: Facial sensation intact bilaterally. Cranial nerve VII: Normal and symmetric facial strength. Cranial nerve VIII: Hearing is intact bilaterally to finger rub / whisper. Cranial nerves IX and X: Palate elevates symmetrically. Cranial nerve XI: Shoulder shrug and neck rotation strength are intact. Cranial nerve XII: Tongue midline with normal strength. Motor: Motor exam was normal. Muscle bulk was normal in both upper and lower extremities. Muscle tone was normal in both upper and lower extremities. Muscle strength was 5/5 throughout. no abnormal or adventitious movements were present. Deep Tendon Reflexes: left biceps 2+ , right biceps 2+, left triceps 2+, right triceps 2+, left brachioradialis 2+, right brachioradialis 2+, left patella 2+, right patella 2+, left ankle jerk 2+, right ankle jerk 2+ Plantar Reflex: Toes downgoing to plantar stimulation on the left. Toes downgoing to plantar stimulation on the right. Sensory Exam: Normal to light touch. Coordination: There is no limb dystaxia and rapid alternating movements are intact. Gait: Gait is normal without spasticity, ataxia or bradykinesia. Stance is stable with a negative Romberg. ASSESSMENT/PLAN Diagnoses and all orders for this visit: Encephalopathy Anxiety - Referral to Neurology - Drug Screen, Urine With Reflex to Confirmation; Future Attention deficit hyperactivity disorder (ADHD), predominantly inattentive type - dexmethylphenidate XR (Focalin XR) 10 mg 24 hr capsule; Take 1 capsule (10 mg) by mouth once daily. Do not crush, chew, or split. - dexmethylphenidate XR (Focalin XR) 10 mg 24 hr capsule; Take 1 capsule (10 mg) by mouth once daily. Do not crush, chew, or split. Do not start before March 21, 2023. - dexmethylphenidate XR (Focalin XR) 10 mg 24 hr capsule; Take 1 capsule (10 mg) by mouth once daily. Do not crush, chew, or split. Do not start before April 20, 2023. - dexmethylphenidate (Focalin) 5 mg tablet; Take 1 tablet (5 mg) by mouth 2 times a day. 1-0 at 3 pm, and 6 pm as needed. - dexmethylphenidate (Focalin) 5 mg tablet; Take 1 tablet (5 mg) by mouth 2 times a day. At 3 pm and 6 pm as needed. Do not start before March 21, 2023. - dexmethylphenidate (Focalin) 5 mg tablet; Take 1 tablet (5 mg) by mouth 2 times a day. At 3 pm and 6 pm as needed. Do not start before April 20, 2023. Jhonny Lee MD 02/19/2023 11:36 AM documented in this encounter [facility] Work Phone: 10-16-2022 Note Discharge Summary PHYSICAL THERAPY Referral/Discharge Information: Date of Discharge: 10-16-22 Date of Last Visit: 09-06-21 Date of Evaluation: 09-06-21 Reason for Discharge: Failed to schedule and/or to keep follow-up appointment(s). Signatures Electronically signed by : Bisi Prabhakar PT Reynold [facility]; Oct 16 2022 10:12AM EST (Author) [place] 07-02-2022 Evaluation note Encounter Date Diagnosis Assessment Notes Jun, Right foot pain (ICD-10 - M79.381) Rest, ice your foot for 15 minutes every hour, keep your foot elevated. Take the prednisone as prescribed. If your symptoms worsen or do not improve in 5-7 days, then follow up with sports medicine. I personally reviwed and interpreuted all of the xray images. There are no appreciable fractures. I suspect that she has an overuse injury in her foot, possible tendonitis in her foot. Will prescribe course of prednisone. Advised to RICE foot. She may need to follow up with pcp in 7-10 days if no improvement of pain. Given return precautions. Zevia Other 12-05-2022 Chief complaint Narrative - Reported* An interactive audio and video telecommunication system which permits real time communications between the patient (at the originating site) and provider (at the distant site) was utilized to providethis telehealth service. * Verbal consent was requested and obtained from MCIHAEL WELLER on this date, 02/10/2022 03:10 PM , for a telehealth visit. * virtual visit to discuss anxiety follow up [id number] Work Phone: [phone]) 660-173208-11-2022 History of Present illness Narrative* Roula Bledsoe APRN.TELEPHONE CLEANER - 10/17/2021 12:40 PM EDT SKIN EXAM ESTABLISHED LAST OFFICE VISIT: 07/06/2020 CC: This patient is a 35 year old female. Patient presents with: Full Body Skin Check HPI: Location: left calf Appearance (size, shape, color): bump Duration: months Symptoms (growing, itching, bleeding, tender): flaking Treatments: none Also complaining of : red spot Location scalp Present x months Itches: No Has been getting more raised -Personal history of skin cancer: Yes- right lower leg melanoma -History of blistering sunburns:Yes -Family history of skin cancer: No -Personal history of tanning bed use: Yes, excessive use during teenage years SOC: Social History Tobacco Use Smoking status: Never Substance Use Topics Alcohol use: Yes Comment: occasional Drug use: No MEDS: Current outpatient prescriptions: Current Outpatient Medications on File Prior to Visit Medication Sig traZODone (DESYREL) 50 mg tablet Take 50 mg by mouth at bedtime as needed. MULTI-VITAMIN ORAL Take by mouth. drospir-eth estra-levomefol Ca (BEYAZ) 3-0.02-0.451 mg (24) ORAL Tab Take 1 tablet by mouth once daily. No current facility-administered medications on file prior to visit. ALLERGY: ALLERGIES Allergen Reactions Nsaids (Non-Steroid* Other: See Comments Pt states adverse reaction of ulcers occurs advised not to take REVIEW OF SYSTEMS: Patient feels well and denies any recent fevers, chills, or nightsweats. PHYSICAL EXAM: The patient is a pleasant female in no distress. Patient appears healthy, well developed, well nourished and in otherwise good health. Alert and oriented x 3. A skin exam was done of the Scalp, face, ears, neck, chest, back, abdomen, bilateral upper extremities, bilateral lower extremities, buttocks, nails and hair. Robert Skin Type: II IMPRESSION: Densely scattered light lamas macules noted on all sun exposed areas Regular and symmetric hyperpigmented macules and papules throughout Small becerril red papules throughout Left medial knee and left lateral lower leg light brown firm sq nodule A/P: (L81.4) Solar lentigines (D22.9) Multiple benign nevi (D18.01) Angiomas of skin -Discussed etiology and educated. -Reassured benign nature. -Continue to monitor (W89.1XXA) Exposure to tanning bed, initial encounter (Z85.820) Personal history of malignant melanoma of skin - Reassured no obvious evidence of recurrence today - Continue monthly self exams - Recommend every 12 month skin exams - Contact office with any suspicious lesions in between follow up (D23.9) Dermatofibroma - also known as histiocytomas - common benign skin lesions - often times arises at site of trauma (bug bite etc) - may be tender or pruritic - very common on women's legs - common to have multiple Treatment: - no treatment is needed unless symptomatic I spent 25 minutes counseling patient after exam about the ABCDEs of nevus evaluation, pre-cancer,skin cancer surveillance with monthly self skin exams. I counseled the patient after the exam about the ABCDEs of nevus evaluation, pre-cancer,skin cancersurveillance with monthly self skin exams. The patient is seen and examined by Roula Bledsoe CNP and the following reflects his/her service. Scribed by Gini Hanna MA I agree with the Chief Complaint, ROS, and Past Histories independently gathered by the clinical application support technician and the remaining scribed note accurately describes my personal service to the patient. Roula Bledsoe APRN.CNP October 17, 2021 1:05 PM I spent a total of 15 minutes on the date of the service which included preparing to see the patient, [id number] patient care, completing clinical documentation, performing a medically appropriate examination, and counseling and educating the patient/family/caregiver. [facility] History of Present illness Narrative* MICHAEL WELLER is a 35 year female who presents today at the request of Rafaela Arguello with a right breast mass. * Patient has a mass in the right breast which had been biopsied in the past at revealing a benign per report. * Mass has enlarged in size on clinical exam and U/S recommended. * at 10:00 4cmFN there is a mass now measuring 3cm x 1.1cm x 1.8cm. Surgical consultation for possible excision recommended given interval growth. * Michael endorses pain in the breast mostly further in the axillary region. Historically, this region has been imaged with U/S with no underlying suspicious mass. * Targeted U/S performed for the patients area of palpable concern in her axilla revealing a normal appearing lymph node. * She denies any additional breast masses, skin thickening, erythema, nipple retraction or nipple discharge. * Prior breast history includes: * - breast biopsy: right breast biopsy 2018 at [facility]- fibroepithelial lesion consistent with fibroadenoma * - breast surgery: no * - breast cancer:no * Menarche: 15 * AFLB: 20 * Menopause: no * HRT:no * Family history: both grandfathers with lung cancer * no history of breast or ovarian cancer [facility] Work Phone: [phone]) 954-201508-08-2022 History of Present illness Narrative* MICHAEL WELLER is a 35 year female who presents today at the request of Rafaela Arguello with a right breast mass. * Patient has a mass in the right breast which had been biopsied in the past at revealing a benign per report. * Mass has enlarged in size on clinical exam and U/S recommended. * at 10:00 4cmFN there is a mass now measuring 3cm x 1.1cm x 1.8cm. Surgical consultation for possible excision recommended given interval growth. * She denies any additional breast masses, skin thickening, erythema, nipple retraction or nipple discharge. * Prior breast history includes: * - breast biopsy: right breast biopsy 2018 at [facility]- fibroepithelial lesion consistent with fibroadenoma * - breast surgery: no * - breast cancer:no * Menarche: 15 * AFLB: 22 * Menopause: no * HRT:no * Family history: both grandfathers with lung cancer * no history of breast or ovarian cancer Jori Laura Work Phone: [phone]) 949-321208-02-2022 Chief complaint Narrative - Reported* An interactive audio and video telecommunication system which permits real time communications between the patient (at the originating site) and provider (at the distant site) was utilized to providethis telehealth service. * Verbal consent was requested and obtained from MICHAEL WELLER on this date, 10/08/2021 11:40 AM , for a telehealth visit. * virtual visit to discuss insomnia, trazodone not helping [address] Work Phone: [phone]) 452-976108-02-2022 Chief complaint Narrative - Reported* An interactive audio and video telecommunication system which permits real time communications between the patient (at the originating site) and provider (at the distant site) was utilized to providethis telehealth service. * Verbal consent was requested and obtained from MICHAEL WELLER on this date, 10/08/2021 11:40 AM , for a telehealth visit. * virtual visit to discuss insomnia, trazodone not helping [facility] Work Phone: [phone]) [phone] [place]The [place], [place] NAME: MICHAEL WELLER Alexandre DATE OF : MEDICAL REC#: [id number] WOODWORKING MACHINIST: Addy [facility] DATE: 07/12/2021 09:46:00 PET NUTRITION SPECIALIST DATE: 07/13/2021 21:00 DICTATING PHYSICIAN: MATT STAPLETON DICTATION DATE: 07/12/2021 12:00 OPERATIVE NOTE OPERATION DATE: 07/12/2021 PROCEDURE: Diagnostic laparoscopy. PREOPERATIVE DIAGNOSIS: Dyspareunia. POSTOPERATIVE DIAGNOSIS: Dyspareunia. ANESTHESIA: General. SURGEON: Matt Stapleton D.O. FOURDRINIER MACHINE TENDER: CLIFF Durán URINE OUTPUT: Yellow and clear. BLOOD LOSS: 500 mL. FINDINGS: Normal appearing ovaries and tubes, slightly erythematous uterus and evidence of endometriosis in the posterior cul-de-sac. SPECIMEN: None. PROCEDURE: The patient was taken back to the Operating Room where she was placed in dorsal lithotomy position after given general anesthesia. The patient was prepped and draped in normal sterile fashion. A sponge stick was placed into the patient's vagina. Attention was turned to the patient's abdomen, where a small umbilical incision was made. The fascia was tented using Deanna clamps and the fascia was entered sharply. Confirmation of intraabdominal placement of the 10 mm port was confirmed under direct visualization using a laparoscope. The patient's abdomen was then insufflated using CO2 gas with approximately 4 liters. A second port was placed left laterally, this was done under direct visualization with a 5 mm port. Survey of the patient's abdomen demonstrated normal liver and gallbladder. Survey of the patient's pelvic anatomy demonstrated normal appearing ovaries and tubes as well as normal appearing uterus. No endometrial implants could be noted, no evidence of any pelvic disease was seen, normal appearing pelvic cavity. All instruments were removed from the patient's abdomen. The patient's abdomen was deinsufflated of CO2 gas. The patient tolerated the procedure well. Sponge stick was removed from the patient's vagina. The patient's infraumbilical fascia was closed using #0 Vicryl on a GI needle. The patient's skin was closed laterally and infraumbilically using 4-0 Vicryl. The patient tolerated the procedure well. Sponge, lap and needle counts were correct x 2. The patient taken to Recovery Room in stable condition. Electronically Authenticated and Edited by: Matt Stapleton DO on 07/15/2021 03:07 PM EDT IF Signed and Approved by: DR MATT STAPLETON . 07/15/2021 15:07:00[place] [id number] History general Narrative - Reported* Type Description Date Medical History 03-04-12 Pathology Report [facility] Surgical History left hip surgery Surgical History tonsillectomy and adenoidectomy Surgical History cholecystectomy Surgical History wisdom teeth Surgical History tumor Zevia Other Evaluation note* Diagnosis Lentigines- Primary Other dyschromia Multiple benign nevi Benign neoplasm of skin, site unspecified Becerril angioma Nevus, non-neoplastic Exposure to tanning bed, sequela Hx of malignant melanoma Personal history of malignant melanoma of skin Dermatofibroma Benign neoplasm of skin, site unspecified [facility] Work Phone: Evaluation note* Diagnosis Abnormal mammogram Abnormal mammogram, unspecified documented in this encounter [facility] Work Phone: Evaluation note* Diagnosis Lump in female breast Lump or mass in breast documented in this encounter [facility] Work Phone: Evaluation note* Diagnosis Encephalopathy- Primary Unspecified encephalopathy Anxiety Anxiety state, unspecified Attention deficit hyperactivity disorder (ADHD), predominantly inattentive type documented in this encounter [facility] Work Phone: Evaluation note* Diagnosis Anxiety Anxiety state, unspecified documented in this encounter [facility] Work Phone: Evaluation note* Diagnosis Encephalopathy- Primary Unspecified encephalopathy Attention deficit hyperactivity disorder (ADHD), 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, unspecified Anxiety Anxiety state, unspecified documented in this encounter [facility] Work Phone: Evaluation note* Diagnosis Dermatofibroma- Primary Benign neoplasm of skin, site unspecified Lentigines Other dyschromia Multiple benign nevi Benign neoplasm of skin, site unspecified Becerril angioma Nevus, non-neoplastic Hx of malignant melanoma Personal history of malignant melanoma of skin [facility] Diagnosis Onset Date Resolution Status UTI (urinary tract infection) [facility] Work Phone: History of Present illness Narrative* The last health maintenance visit was 2 year(s) ago. Concerns raised today include: urology referral. The patient's health since the last visit is described as good. There are no interval changes in the patient's PMH, PSH, and current medications. There are no interval changes in the patient's social and family history. She has regular dental visits. She denies vision problems. She denies hearingloss. Immunizations status: up to date. * Lifestyle: She consumes a diverse and healthy diet. She does not have any weight concerns. She exercises regularly. She does not use tobacco. She consumes alcohol. * Reproductive health: she reports abnormal menses. she uses no contraception. she is sexually active. * History: 3 full term. * Cervical cancer screening: cancer screening reviewed and current. * Breast cancer screening:. 2019. * Metabolic screening: lipid profile performed within the past five years. * Right breast lumps have been monitored with ultrasound and stable for 2 years. * No additional imaging needed, but the area has become more painful over the last 3-4 months. * OBGYN did a breast exam recently without new concerns. * Sometimes constant pain, but always worse with palpation or when the area gets bumped. * Sees OBGYN through [facility], who has ordered an ultrasound for evaluation of pelvic pain. Recommended urology referral to rule out bladder causes of pain. * Painful intercourse and suprapubic pain. Manipulation around her bladder causes her excessive discomfort. * No pain or burning with urination. * She has seen urologist in the past for recurrent UTIs. She was told she was allergic to latex. 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 * Now she is working one job and kids are older and more self sufficient. * Poor sleep quality. Mind racing. Having difficulty concentrating and fixating on one thing. * Having difficulty organizing tasks for her work and with 3 kids. * History of anxiety. She has done counseling for this. Usually more health related anxiety. * She has not taken any medications for anxiety. * No thoughts of hurting herself or others. * Feeling exhausted because she can't shut her mind. * She has always had difficulty sleeping. * She has tried Melatonin in the past, but this made her sleep worse. * Likes to go for walks, read books. No regular exercise. [id number] Work Phone: History of Present illness Narrative* The last health maintenance visit was 2 year(s) ago. Concerns raised today include: urology referral. The patient's health since the last visit is described as good. There are no interval changes in the patient's PMH, PSH, and current medications. There are no interval changes in the patient's social and family history. She has regular dental visits. She denies vision problems. She denies hearingloss. Immunizations status: up to date. * Lifestyle: She consumes a diverse and healthy diet. She does not have any weight concerns. She exercises regularly. She does not use tobacco. She consumes alcohol. * Reproductive health: she reports abnormal menses. she uses no contraception. she is sexually active. * History: 3 full term. * Cervical cancer screening: cancer screening reviewed and current. * Breast cancer screening:. 2019. * Metabolic screening: lipid profile performed within the past five years. * Right breast lumps have been monitored with ultrasound and stable for 2 years. * No additional imaging needed, but the area has become more painful over the last 3-4 months. * OBGYN did a breast exam recently without new concerns. * Sometimes constant pain, but always worse with palpation or when the area gets bumped. * Sees OBGYN through [facility], who has ordered an ultrasound for evaluation of pelvic pain. Recommended urology referral to rule out bladder causes of pain. * Painful intercourse and suprapubic pain. Manipulation around her bladder causes her excessive discomfort. * No pain or burning with urination. * She has seen urologist in the past for recurrent UTIs. She was told she was allergic to latex. 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 * Now she is working one job and kids are older and more self sufficient. * Poor sleep quality. Mind racing. Having difficulty concentrating and fixating on one thing. * Having difficulty organizing tasks for her work and with 3 kids. * History of anxiety. She has done counseling for this. Usually more health related anxiety. * She has not taken any medications for anxiety. * No thoughts of hurting herself or others. * Feeling exhausted because she can't shut her mind. * She has always had difficulty sleeping. * She has tried Melatonin in the past, but this made her sleep worse. * Likes to go for walks, read books. No regular exercise. [facility] Work Phone: History of Present illness Narrative* The last health maintenance visit was 2 year(s) ago. Concerns raised today include: urology referral. The patient's health since the last visit is described as good. There are no interval changes in the patient's PMH, PSH, and current medications. There are no interval changes in the patient's social and family history. She has regular dental visits. She denies vision problems. She denies hearingloss. Immunizations status: up to date. * Lifestyle: She consumes a diverse and healthy diet. She does not have any weight concerns. She exercises regularly. She does not use tobacco. She consumes alcohol. * Reproductive health: she reports abnormal menses. she uses no contraception. she is sexually active. * History: 3 full term. * Cervical cancer screening: cancer screening reviewed and current. * Breast cancer screening:. 2019. * Metabolic screening: lipid profile performed within the past five years. * Right breast lumps have been monitored with ultrasound and stable for 2 years. * No additional imaging needed, but the area has become more painful over the last 3-4 months. * OBGYN did a breast exam recently without new concerns. * Sometimes constant pain, but always worse with palpation or when the area gets bumped. * Sees OBGYN through [facility], who has ordered an ultrasound for evaluation of pelvic pain. Recommended urology referral to rule out bladder causes of pain. * Painful intercourse and suprapubic pain. Manipulation around her bladder causes her excessive discomfort. * No pain or burning with urination. * She has seen urologist in the past for recurrent UTIs. She was told she was allergic to latex. 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 * Now she is working one job and kids are older and more self sufficient. * Poor sleep quality. Mind racing. Having difficulty concentrating and fixating on one thing. * Having difficulty organizing tasks for her work and with 3 kids. * History of anxiety. She has done counseling for this. Usually more health related anxiety. * She has not taken any medications for anxiety. * No thoughts of hurting herself or others. * Feeling exhausted because she can't shut her mind. * She has always had difficulty sleeping. * She has tried Melatonin in the past, but this made her sleep worse. * Likes to go for walks, read books. No regular exercise. [id number] Work Phone: History of Present illness Narrative* The last health maintenance visit was 2 year(s) ago. Concerns raised today include: urology referral. The patient's health since the last visit is described as good. There are no interval changes in the patient's PMH, PSH, and current medications. There are no interval changes in the patient's social and family history. She has regular dental visits. She denies vision problems. She denies hearingloss. Immunizations status: up to date. * Lifestyle: She consumes a diverse and healthy diet. She does not have any weight concerns. She exercises regularly. She does not use tobacco. She consumes alcohol. * Reproductive health: she reports abnormal menses. she uses no contraception. she is sexually active. * History: 3 full term. * Cervical cancer screening: cancer screening reviewed and current. * Breast cancer screening:. 2019. * Metabolic screening: lipid profile performed within the past five years. * History of right breast lumps that have been monitored with ultrasound and stable for 2 years. * No additional imaging was recommended at last ultrasound, but the area has become more painful overthe last 3-4 months. * OBGYN did a breast exam recently without new concerns. * Sometimes constant pain, but always worse with palpation or when the area gets bumped. * Now she is having difficulty putting her arm down because of discomfort. * No redness or discharge from lumps. * Sees OBGYN through [facility], who has ordered an ultrasound for evaluation of pelvic pain. Recommended urology referral to rule out bladder causes of pain. * Painful intercourse and suprapubic pain. Manipulation around her bladder causes her excessive discomfort. * No pain or burning with urination. * She has seen urologist in the past for recurrent UTIs. She was told this was related to a latex allergy. 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 * Now she is working one job and kids are older and more self sufficient. * She is noticing more anxiety and sleep concerns since she has had more free time. * Having difficulty concentrating and fixating on one thing. * Having difficulty organizing tasks for her work and 3 kids. * History of anxiety, but in the past this has generally been focused around her health. She has donecounseling for this. * She has not taken any medications for anxiety. * No thoughts of hurting herself or others. * Likes to go for walks, read books. No regular exercise. * Complains of poor sleep quality. Mind racing. Feeling exhausted because she can't shut her mind off. * She has always had difficulty sleeping. * She has tried Melatonin in the past, but this made her sleep worse. [id number] Work Phone: History of Present illness Narrative* The last health maintenance visit was 2 year(s) ago. Concerns raised today include: urology referral. The patient's health since the last visit is described as good. There are no interval changes in the patient's PMH, PSH, and current medications. There are no interval changes in the patient's social and family history. She has regular dental visits. She denies vision problems. She denies hearingloss. Immunizations status: up to date. * Lifestyle: She consumes a diverse and healthy diet. She does not have any weight concerns. She exercises regularly. She does not use tobacco. She consumes alcohol. * Reproductive health: she reports abnormal menses. she uses no contraception. she is sexually active. * History: 3 full term. * Cervical cancer screening: cancer screening reviewed and current. * Breast cancer screening:. 2019. * Metabolic screening: lipid profile performed within the past five years. * History of right breast lumps that have been monitored with ultrasound and stable for 2 years. * No additional imaging was recommended at last ultrasound, but the area has become more painful overthe last 3-4 months. * OBGYN did a breast exam recently without new concerns. * Sometimes constant pain, but always worse with palpation or when the area gets bumped. * Now she is having difficulty putting her arm down because of discomfort. * No redness or discharge from lumps. * Sees OBGYN through [facility], who has ordered an ultrasound for evaluation of pelvic pain. Recommended urology referral to rule out bladder causes of pain. * Painful intercourse and suprapubic pain. Manipulation around her bladder causes her excessive discomfort. * No pain or burning with urination. * She has seen urologist in the past for recurrent UTIs. She was told this was related to a latex allergy. 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 * Now she is working one job and kids are older and more self sufficient. * She is noticing more anxiety and sleep concerns since she has had more free time. * Having difficulty concentrating and fixating on one thing. * Having difficulty organizing tasks for her work and 3 kids. * History of anxiety, but in the past this has generally been focused around her health. She has donecounseling for this. * She has not taken any medications for anxiety. * No thoughts of hurting herself or others. * Likes to go for walks, read books. No regular exercise. * Complains of poor sleep quality. Mind racing. Feeling exhausted because she can't shut her mind off. * She has always had difficulty sleeping. * She has tried Melatonin in the past, but this made her sleep worse. [facility] Work Phone: History of Present illness Narrative* Patient presents to clinic with complaints of pain during sex and mild Ricardo. Her assessment was significant for mild strength deficits and decreased movement of her pelvic floor. Patient will benefit from skilled PT to address these impairments. * Clinical Presentation: Stable and/or uncomplicated characteristics. * Level of Complexity: low [facility] Work Phone: History of Present illness Narrative* The patient is being seen for a routine clinic follow-up of insomnia. Symptoms: difficulty falling asleep, difficulty staying asleep, unrefreshing sleep, daytime sleepiness and anxiety upon awakening. The patient is currently experiencing symptoms. Associated symptoms: difficulty concentrating, butno irritability, no chronic pain, no alcohol abuse, no drug abuse, no restless legs, no periodic limb movements during sleep, no nocturnal leg cramps, no nightmares, no night terrors and no sleepwalking. Current treatment includes trazodone. By report, there is good compliance with treatment and poor symptom control. * Tried Trazodone for insomnia after last visit. * States the medication will eventually get her to sleep but takes hours to work. Still waking up around 4am and unable to fall back asleep due to racing thoughts and anxiety. * She is tolerating medication well without side effects. * Still having difficulty with mind racing and feeling overwhelmed with tasks. * has been supportive of her taking breaks and making more time for herself, but still feeling persistent anxiety. * She is currently attending grad school. * She has been off of work for the summer but starting back to school in her role as a school counselor in 2 weeks. * Complains of low motivation and fatigue, but no loss of interest or thoughts of hurting herself or others. * Having difficulty focusing and completing tasks because she is constantly feeling overwhelmed. * No panic attacks. * Saw urology for painful intercourse. Planning physical therapy. [id number] Work Phone: History of Present illness Narrative* The patient is being seen for a routine clinic follow-up of insomnia. Symptoms: difficulty falling asleep, difficulty staying asleep, unrefreshing sleep, daytime sleepiness and anxiety upon awakening. The patient is currently experiencing symptoms. Associated symptoms: difficulty concentrating, butno irritability, no chronic pain, no alcohol abuse, no drug abuse, no restless legs, no periodic limb movements during sleep, no nocturnal leg cramps, no nightmares, no night terrors and no sleepwalking. Current treatment includes trazodone. By report, there is good compliance with treatment and poor symptom control. * Tried Trazodone for insomnia after last visit. * States the medication will eventually get her to sleep but takes hours to work. Still waking up around 4am and unable to fall back asleep due to racing thoughts and anxiety. * She is tolerating medication well without side effects. * Still having difficulty with mind racing and feeling overwhelmed with tasks. * has been supportive of her taking breaks and making more time for herself, but still feeling persistent anxiety. * She is currently attending grad school. * She has been off of work for the summer but starting back to school in her role as a school counselor in 2 weeks. * Complains of low motivation and fatigue, but no loss of interest or thoughts of hurting herself or others. * Having difficulty focusing and completing tasks because she is constantly feeling overwhelmed. * No panic attacks. * Saw urology for painful intercourse. Planning physical therapy. [facility] Work Phone: History of Present illness Narrative* The patient is being seen for follow-up of insomnia. The patient reports no change in the condition. Comorbid Illnesses: anxiety. * Interval symptoms: stable difficulty falling asleep, stable difficulty staying asleep, stable unrefreshing sleep, stable daytime sleepiness and stable fatigue. * Associated symptoms: no depression, no snoring, no chronic pain, no nocturnal leg cramps, no restless legs and no hot flashes. * Medications: the patient is adherent to her medication regimen, but she denies medication side effects. The patient sleeps 6 hours per night. * The patient is being seen for follow-up of anxiety. The patient reports no change in the condition.Comorbid Illnesses: depression. * Interval symptoms: stable anxiety, stable difficulty concentrating, stable restlessness, stable panic attacks, stable sleep disruption and denies depression. * Associated symptoms: racing thoughts, but no grandiosity, no periods of euphoria, no hallucinationsand no suicidal ideation. * Medications: the patient is adherent to her medication regimen, but she denies medication side effects. * Disease management: the patient is doing well with her goals. * Started Wellbutrin in November 2021. * She has noticed some change for the better since starting Wellbutrin. * Feels like medication is helping with anxiety and focus, but still not where she wants to be. * Still seems always overwhelmed with her to-do list. * Tolerating well without side effects. * Sleeping has been poor, but her son has been waking her up at night. * She is taking Trazodone every night over the last month and this helps when she is able to sleep uninterrupted. * Saw Dr. Morrissey, breast surgery for benign fibroadenoma. * Labs ordered at previous visit. She has not been able to have these done yet. [facility] Work Phone: Instructions* Name Dates Details Instructions not documented [id number] Work Phone: Family History No Family History Records FoundUnknown Family Member Name Dates Details No pertinent family history( V49.89, Z78.9) Comments:Other Status:Active Unknown Family Member Name Dates Details No pertinent family history( V49.89, Z78.9) Comments:Other Status:Active Grandfather Name Dates Details Family history of diabetes m ellitus(V18.0, Z83.3) Status:Active Unknown Family Member Name Dates Details No pertinent family history( V49.89, Z78.9) Comments:Other Status:Active Grandfather Name Dates Details Family history of diabetes m ellitus(V18.0, Z83.3) Status:Active Unknown Family Member Name Dates Details No pertinent family history( V49.89, Z78.9) Comments:Other Status:Active Grandfather Name Dates Details Family history of diabetes m ellitus(V18.0, Z83.3) Status:Active Unknown Family Member Name Dates Details No pertinent family history: Other(V49.89, Z78.9) Status:Active Family history of diabetes m ellitus: Maternal Grandfather(V18.0, Z83.3) Status:Active Unknown Family Member Name Dates Details No pertinent family history: Other(V49.89, Z78.9) Status:Active Family history of diabetes m ellitus: Maternal Grandfather(V18.0, Z83.3) Status:Active Unknown Family Member Name Dates Details No pertinent family history: Other(V49.89, Z78.9) Status:Active Family history of diabetes m ellitus: Maternal Grandfather(V18.0, Z83.3) Status:Active Unknown Family Member Name Dates Details No pertinent family history: Other(V49.89, Z78.9) Status:Active Family history of diabetes m ellitus: Maternal Grandfather(V18.0, Z83.3) Status:Active Unknown Family Member Name Dates Details No pertinent family history: Other(V49.89, Z78.9) Status:Active Family history of diabetes m ellitus: Maternal Grandfather(V18.0, Z83.3) Status:Active Unknown Family Member Name Dates Details No pertinent family history: Other(V49.89, Z78.9) Status:Active Family history of diabetes m ellitus: Maternal Grandfather(V18.0, Z83.3) Status:Active Unknown Family Member Name Dates Details No pertinent family history: Other(V49.89, Z78.9) Status:Active Family history of diabetes m ellitus: Maternal Grandfather(V18.0, Z83.3) Status:Active Unknown Family Member Name Dates Details No pertinent family history: Other(V49.89, Z78.9) Status:Active Family history of diabetes m ellitus: Maternal Grandfather(V18.0, Z83.3) Status:Active Unknown Family Member Name Dates Details No pertinent family history: Other(V49.89, Z78.9) Status:Active Family history of diabetes m ellitus: Maternal Grandfather(V18.0, Z83.3) Status:Active Unknown Family Member Name Dates Details No pertinent family history: Other(V49.89, Z78.9) Status:Active Family history of diabetes m ellitus: Maternal Grandfather(V18.0, Z83.3) Status:Active Unknown Family Member Name Dates Details No pertinent family history: Other(V49.89, Z78.9) Status:Active Family history of diabetes m ellitus: Maternal Grandfather(V18.0, Z83.3) Status:Active Unknown Family Member Name Dates Details No pertinent family history: Other(V49.89, Z78.9) Status:Active Family history of diabetes m ellitus: Maternal Grandfather(V18.0, Z83.3) Status:Active Unknown Family Member Name Dates Details No pertinent family history: Other(V49.89, Z78.9) Status:Active Family history of diabetes m ellitus: Maternal Grandfather(V18.0, Z83.3) Status:Active Unknown Family Member Name Dates Details No pertinent family history: Other(V49.89, Z78.9) Status:Active Family history of diabetes m ellitus: Maternal Grandfather(V18.0, Z83.3) Status:Active Unknown Family Member Name Dates Details Family history of diabetes m ellitus: Maternal Grandfather(V18.0, Z83.3) Status:Active Family history of lung cance r: Maternal Grandfather, Paternal Grandfather(V16.1, Z80.1) Status:Active No pertinent family history: Other(V49.89, Z78.9) Status:Active Unknown Family Member Name Dates Details No pertinent family history: Other(V49.89, Z78.9) Status:Active Family history of diabetes m ellitus: Maternal Grandfather(V18.0, Z83.3) Status:Active Family history of lung cance r: Maternal Grandfather, Paternal Grandfather(V16.1, Z80.1) Status:Active Unknown Family Member Name Dates Details No pertinent family history: Other(V49.89, Z78.9) Status:Active Family history of diabetes m ellitus: Maternal Grandfather(V18.0, Z83.3) Status:Active Family history of lung cance r: Maternal Grandfather, Paternal Grandfather(V16.1, Z80.1) Status:Active Unknown Family Member Name Dates Details No pertinent family history: Other(V49.89, Z78.9) Status:Active Family history of diabetes m ellitus: Maternal Grandfather(V18.0, Z83.3) Status:Active Family history of lung cance r: Maternal Grandfather, Paternal Grandfather(V16.1, Z80.1) Status:Active Relationship Condition Age at Onset Recorded Date/T sharath grandparent Unknown Diabetes mellitus Unknown grandparent Family history of lung cancer Unknown Unknown Chief Complaint pt here for annual wellness exampt here for annual wellness exampt here for annual wellness exampt here for annual wellness exampt here with multiple concernspt here with multiple concernsright breast massright breast mass Summary Purpose Advance Directives No Advanced Directives Records Found Advance Directive Response Recorded Date/ Time Advance Directives No October 09 019 2:01pm Chief Complaint and Reason for Visit Chief Complaint Health Screening Chief Complaint foot pain Chief Complaint possible uti Reason for Visit UTI (urinary tract i nfection) Reason for Referral Specialty Diagnoses / Procedures Referred By Contsingh t Referred To Contact Radiology Diagnoses Lump in female breast Procedures [place] [address] [place] [address] Referral ID Status Reason Start Date Expiration Date Visits Requested Visits Authorized [id number] Pending Review Perform Procedure 3 06/17/2023 1 1 Additional Source Comments INFORMATION SOURCE (unrecogn ized section and content) DATE CREATED AUTHOR 07/19/2021 [facility] DATE CREATED AUTHOR AUTHOR'S ORGANIZ ATION 10/16/2021 [facility] DATE CREATED AUTHOR AUTHOR'S ORGANIZ ATION 03/02/2022 [facility] DATE CREATED AUTHOR AUTHOR'S ORGANIZ ATION 10/17/2022 [facility] DATE CREATED AUTHOR AUTHOR'S ORGANIZ ATION 12/11/2022 [facility] DATE CREATED AUTHOR AUTHOR'S ORGANIZ ATION 01/09/2023 [facility] DATE CREATED AUTHOR AUTHOR'S ORGANIZ ATION 07/03/2023 [facility] EPIC DATE CREATED AUTHOR AUTHOR'S ORGANIZ ATION 07/25/2023 [facility] DATE CREATED AUTHOR AUTHOR'S ORGANIZ ATION 09/03/2023 [facility] DATE CREATED AUTHOR AUTHOR'S ORGANIZ ATION 09/07/2023 [facility] Reason for Visit (unrecogniz ed section and content) Reason Comments Full Body Skin Check Specialty Diagnoses / Procedures Referred By Contac t Referred To Contact Radiology Diagnoses Abnormal mammogram Procedures BI mammo bilateral diagnostic tomosynthesis [place] [address] [place] [address] Referral ID Status Reason Start Date Expiration Date Visits Requested Visits Authorized [id number] Pending Review Perform Procedure 12/03/2022 06/01/2023 1 1 Specialty Diagnoses / Procedures Referred By Contac t Referred To Contact Radiology Diagnoses Lump in female breast Procedures BI [place] [address] [facility] [address] [place] [address] Referral ID Status Reason Start Date Expiration Date Visits Requested Visits Authorized [id number] Pending Review Perform Procedure 3 06/17/2023 1 1 Reason Comments New Patient Visit NPV- ADHD Specialty Diagnoses / Procedures Referred By Contsingh t Referred To Contact Neurology Diagnoses Anxiety Procedures RI OFFICE/OUTPATIENT NEW HIGH MDM 60-[place] [address] [place] [address] Jhonny Lee MD [address] [facility], [address] [place] [address] Referral ID Status Reason Start Date Expiration Date Visits Requested Visits Authorized [id number] Pending Review Specialty Services Required 12/03/2022 06/01/2023 1 1 Reason Comments Follow-up 3 month FU. Reason Comments Encephalopathy FU. Source Comments (unrecognize d section and content) In the event this informatio n is protected by the Federal Confidentiality of Alcohol and Drug Abuse Patient Records regulations: The Federal rules restrict any use of the information to criminally investigate or prosecute any alcohol or drug abuse patient.[facility] the event this information is protected by the Federal Confidentiality of Alcohol and Drug Abuse Patient Records regulations: The Federal rules restrict any use of the information to criminally investigate or prosecute any alcohol or drug abuse patient.[facility] Care Teams (unrecognized sec tion and content) Machine Coremaker Relationship Specialty Start Date End Date Danielle Infante [address] [place] [address] PCP - General Family Practice 06/10/16 Team Status: Inactive Member Role Status Dates Danielle Infante , Primary Care Provider Active Kp Alvares , DO [facility] Attending Provider Active Team Status: Active Member Role Status Dates Danielle Infante , Primary Care Provider Active Team Status: Inactive Member Role Status Dates Danielle Infante , Primary Care Provider Active Bolivar Sherman , [employer]-C Attending Provider Activ e Machine Coremaker Relationship Specialty [place] [address] [address] PCP - General Family Medicine 10/29/22 Machine Coremaker Relationship Specialty [place] [address] [address] PCP - General Family Medicine 10/29/22 Machine Coremaker Relationship Specialty [place] [address] [address] PCP - General Family Medicine 10/29/22 Machine Coremaker Relationship Specialty [place] [address] [address] PCP - General Family Medicine 10/29/22 Jhonny Lee MD [address] [facility], [address] [place] [address] Consulting Physician Neurology 02/19/23 Machine Coremaker Relationship Specialty [place] [address] [address] PCP - General Family Medicine 10/29/22 Jhonny Lee MD [address] [facility], [address] [place] [address] Consulting Physician Neurology 02/19/23 Machine Coremaker Relationship Specialty [place] [address] [facility] [address] [place] [address] PCP - General Family Medicine 10/29/22 [place] [address] [facility] [address] [place] [address] PCP - MMO ACO PCP 03/09/23 Jhonny Lee MD [address] [facility], [address] [place] [address] Consulting Physician Neurology 02/19/23 Machine Coremaker Relationship Specialty Start Date End Date Danielle Infante DO [address] [place] [address] PCP - General Family Medicine 06/10/16 Team Status: Inactive Member Role Status Dates Danielle Infante DO Primary Care Provider Active Start: September 05, 2023 End: September 05, 2023 Swetha Andersen APRN Attending Provider Active S tart: September 05, 2023 End: September 05, 2023 Team Status: Inactive Member Role Status Dates Swetha Andersen APRN Attending Provider Active S tart: September 05, 2023 End: September 05, 2023 Goals (unrecognized section and content) Goals may be documented in a n alternate sectionNo InformationGoals may be documented in an alternate sectionGoals may be documented in an alternate sectionGoals may be documented in an alternate section FOR RECORDS PERTAINING TO PATIENTS WHO ARE OR HAVE BEEN ENROLLED IN A CHEMICAL DEPENDENCY/SUBSTANCEABUSE PROGRAM, SOME INFORMATION MAY BE OMITTED. This clinical summary was aggregated from multiple sources. Caution should be exercised in using it in the provision of clinical care. This summary normalizes information from multiple sources, and as a consequence, information in this document may materially change the coding, format and clinical context of patient data. In addition, data may be omitted in some cases. CLINICAL DECISIONS SHOULD BE BASED ON THE PRIMARY CLINICAL RECORDS. [facility] [employer] [facility]. provides no warranty or guarantee of the accuracy or completeness of information in this document.
== END 2023-10-20 19:06 | disposition home or self-care (01) ==
LOC: LAB 19:05
PROVIDERS: Visit Provider Obstetrics & Gynecology
DX: Z01.419 Encounter for gynecological examination (general) (routine) without abnormal findings (principal)
CPT/HCPCS: 87624; 88175

== ENCOUNTER 2023-11-21 08:11 | Outpatient (OUT) | payer OTHER, SELFPAY ==
--- NOTE | 2023-11-21 | US_ITS ---
The [address] [address] Patient Name: MICHAEL ROQUE MRN: [id number] date: 1985 Sex: F Assigned Patient Location: Current Patient Location: Accession/Order Number: [id number] Exam Date: 11/21/2023 08:14 Report Date: 11/21/2023 09:17 At the request of: NEISHA PETERSON Procedure: US pelvis w/ transvaginal EXAMINATION: US pelvis w/ transvaginal HISTORY: Irregular menses N92.6 COMPARISON: No relevant comparison available. TECHNIQUE: Transabdominal and/or transvaginal sonographic examination was performed as indicated by examination type. FINDINGS: UTERUS: Normal size and appearance. Uterus size: 9.5 x 4.5 x 5.1 cm ENDOMETRIUM: Normal homogeneous appearance. Endometrial thickness: 8 mm RIGHT OVARY: Normal size and appearance. Duplex Doppler demonstrates normal waveform and flow; resistive index 0.6. Ovary size: 2.7 x 3.0 x 2.4 cm LEFT OVARY: Normal size and appearance. Duplex Doppler demonstrates normal waveform and flow; resistive index 0.5. Ovary size: 3.0 x 1.9 x 2.5 cm CUL-DE-SAC: Unremarkable. No significant free fluid. BLADDER: Unremarkable. OTHER: None. US/US pelvis w/ transvaginal IMPRESSION: 1. No abnormal or suspicious findings to account for patient's symptoms. Electronically authenticated by: NOEMI LOU Date: 11/21/2023 09:17
--- OUTSIDE RECORDS SUMMARY | 2023-11-21 08:14 | XMS_ITS | CCD ---
Author Organization [facility] Care Team Providers Care Employment Educational Coord Name Role Phone Rafaela Arguello Unavailable Unavailable [facility] [place] [id number], [employer] Unavailable Unavailable Rafaela Arguello Unavailable Unavailable Zackary Gomez Unavailable Unavailable Rafaela Arguello Unavailable Unavailable Rafaela Arguello Unavailable Unavailable Zackary Gomez Unavailable Unavailable Rafaela Arguello Unavailable Unavailable Unavailable KRISTEN, DR DRIVER Admitting Unavailable KRISTEN, DR DRIVER Primary Care Unavailable KRISTEN, DR DRIVER Attending Unavailable KRISTEN, DR DRIVER Consulting Unavailable Nardini Noemi Consulting Unavailable KRISTEN, DR DRIVER Admitting Unavailable [...] DRIVER Consulting Unavailable AGUBOSIM, ARYA Consulting Unavailable ANITA BRICENOREN Consulting Unavailable GRAZYNA MEZA Consulting Unavailable KRISTEN, DR DRIVER Admitting Unavailable KRISTEN, DR DRIVER Attending Unavailable KRISTEN, DR DRIVER Consulting Unavailable KRISTEN, DR DRIVER Primary Care Unavailable Danielle Infante Primary Care Provider DO Danielle Infante Primary Care Provider DO Kp Alvares Attending Provider [phone] Hema, Ms. Rafaela Schultz Referring Aisha Arguello, Ms. Rafaela Schultz Primary Care Aisha Arguello, Ms. Rafaela Schultz Attending Aisha Arguello, MsJonathan Schultz Primary Care Unavai labtaryn Arguello, MsJonathan Schultz Attending Yohanavai labtaryn Arguello, MsJonathan Schultz Referring Unavai labtaryn Arguello, MsJonathan Schultz Referring Unavai labtaryn Arguello, MsJonathan Schultz Primary Care Yohanavai labtaryn Arguello, MsJonathan Schultz Attending Aisha Arguello, MsJonathan Schultz Referring Yohanavai labtaryn Arguello, MsJonathan Schultz Primary Care Aisha Aguilar, Luz Coombs Attending Unavailable Arguello, MsJonathan Schultz Primary Care Aisha Aguilar, Luz Niharikaella Attending Unavailable Lauren, Luz Niharikaella Referring Unavailable Bolivar Sherman Unavailable DO Danielle Infante Primary Care Provider SCOTT Sherman Attending Provider Karolina Man DO Primary Care Provider Jhonny Lee MD Unavailable Karolina Man DO Unavailable KAROLINA MAN Attending Unavailable KAROLINA MAN Primary Care Unavailable JHONNY LEE Attending Unavailable KAROLINA MAN Referring Unavailable KAROLINA MAN Primary Care Unavailable KAROLINA MAN Attending Unavailable KAROLINA MAN Primary Care Unavailable JHONNY LEE Attending Unavailable KAROLINA MAN Primary Care Unavailable JHONNY LEE Attending Unavailable KAROLINA MAN Primary Care Unavailable Danielle Infante DO Primary Care Provid er ROULA BLEDSOE Attending Unavailable DANIELLE INFANTE Primary Care LAYNE Reyes Attending Provider [phone] NO FAMILY, PHYSICIAN Primary Care Unavailable Swetha Andersen Attending Unavailable Swetha Andersen Admitting Unavailable MATT STAPLETON Attending Unavailable MATT STAPLETON Attending Unavailable KAROLINA MAN Referring Unavailable KAROLINA MAN Primary Care Unavailable KAROLINA MAN Referring Unavailable KAROLINA MAN Primary Care Unavailable Allergies Allergy Classification Reported Allergen(s) Allergy Type Date of Onset Reaction(s) Facility Cephalosporins (antibiotic) (1 source) loracarbef Drug Allergy [facility] Work Phone: Latex (1 source) natural latex rubber Substance Allergy [facility] Work Phone: NSAIDs (1 source) NSAIDs Drug Allergy [facility] Work Phone: (20 sources) loracarbef; Translations: [loracarbef] Drug Allergy 08-29-19 23 Unknown [id number] [facility] Work Phone: (20 sources) natural latex rubber; Translations: [LATEX] Allergy to substance (finding) 08-29-19 [facility] 3 Repository (20 sources) NSAIDs; Translations: [NSAIDs] Allergy to drug (finding) Unknown [id number] [facility] Work Phone: (20 sources) Animal dander - Cats Allergy to substance (finding) [id number] [facility] Work Phone: (2 sources) Latex Drug allergy (disorder) [facility] Repository (1 source) loracarbef Drug Allergy [facility] Repository (4 sources) NSAIDs; Translations: [NSAIDS (NON-STEROIDAL ANTI-INFLAMMATOR Y DRUG)] Drug allergy (disorder) 06-11-19 17 [facility] Repository (6 sources) Non-steroidal anti-inflammator y agent Propensity to adverse reactions to drug 06-11-19 Other: See Comments, Other [facility] (7 sources) Latex Propensity to adverse reactions 08-29-19 23 Unknown, Rash [facility] Other (8 sources) Cat Dander; Translations: [CAT DANDER] Allergy to substance 11-29-19 23 Unknown, Itching [facility] (3 sources) NSAIDS (Non-Steroidal Anti-Inflamma; Translations: [NSAIDS (Non-Steroidal Anti-Inflamma] Allergy to substance 09-05-19 [facility] (1 source) Latex Drug allergy (disorder) 09-05-19 [facility] Repository (1 source) CAT HAIR STANDARDIZED ALLERGENIC EXTRACT; Translations: [CAT HAIR STANDARDIZED ALLERGENIC EXTRACT] Propensity to adverse reactions to drug (disorder) 11-29-19 [facility] 2 Repository Medications Current Medications Medication Drug Class(es) [...] FOR WHEEZING . Quantity: 1 Refills: 3 Hema Rafaela MARTINEZ Start : 16-May-2019 Active 30 x 3 ML Plas Cont Start: 05-16-2019 take 1-2 puff(s) by inhalation every four to six hours as needed Ventolin HFA 108 (90 Base) MCG/ACT Inhalation Aerosol Solution INHALE 1 TO 2 PUFFS EVERY 4 TO 6 HOURS NEEDED. Quantity: 1 Refills: 4 Arguello Rafaela MARTINEZ Start : 16-May-2019 Active 8 GM Inhaler azithromycin 250 mg oral tablet (2 sources) Macrolide Antimicrobial Start: 05-16-2019 take 2 tablets by mouth once daily, then take 1 tablet by mouth, then take 1 tablet by mouth once daily Azithromycin 250 MG Oral Tablet TAKE 2 TABLETS ON DAY 1 THEN TAKE 1 TABLET A DAY FOR 4 DAYS. Quantity: 1 Refills: 0 Hema Rafaela MARTINEZ Start : 16-May-2019 Active 6 Tablet Pack [...] [Lump or mass in breast] Onset: 11-28-2022 11-28-2022 Episodic Other and unspecified benign neoplasm [...] bacterial skin contaminants 2 Days PERFORMED BY: [place] [address] PATHOLOGIST JOINT SETTER DAVID CHILD M.D. Normal [facility] Comment on above: Performed By: #### C UU #### [address] CNOVon 09-01-2023 CNOV Office Visit (AMDERM ) MICHAEL WELLER ([id number]) 1985 F Date Time Provider Department 09/01/23 11:30 AM ROULA BLEDSOE During your visit today, we recorded the following information about you: Ayesha RoulaXU curran 09/01/2023 11:42 AM Signed SKIN EXAM ESTABLISHED [...] brown firm sq nodule Densely scattered light lamsa macules noted on all sun exposed areas [...] service. Scribed by Karolina Alcantara LPN /Gini Hanan MA I agree with the Chief Complaint, ROS, and Past Histories independently gathered by the clinical ict customer support officer and the remaining scribed note accurately describes [...] - dexmethylphenidate (more content not included)... Normal [facility] Drugs of abuse screen W Refl ex confirm panel (U)on 02-19-2023 Amphetamines Screen Ql (U) Negative Normal Presumptive Negative [facility] Comment on above: Order Comment: [...] By: #### 8 7428-9 #### ALEJANDRO RAMOS ([id number]) [facility] ([facility]) [address] [place] [address] Barbiturates Screen Ql (U) Negative Normal Presumptive Negative [facility] Comment on above: Order Comment: [...] By: #### 8 7428-9 #### ALEJANDRO RAMOS ([id number]) [facility] ([facility]) [address] [place] [address] Benzodiazepines Ql (U) Negative Normal Presumptive Negative [facility] Comment on above: Order Comment: [...] By: #### 8 7428-9 #### ALEJANDRO RAMOS ([id number]) [facility] ([facility]) [address] [place] [address] Benzoylecgonine Screen Ql (U) Negative Normal Presumptive Negative [facility] Comment on above: Order Comment: [...] By: #### 8 7428-9 #### ALEJANDRO RAMOS ([id number]) [facility] ([facility]) [address] [place] [address] Cannabinoids Screen Ql (U) Negative Normal Presumptive Negative [facility] Comment on above: Order Comment: [...] By: #### 8 7428-9 #### ALEJANDRO RAMOS ([id number]) [facility] ([facility]) [address] [place] [address] fentaNYL+Norfentanyl Screen Ql (U) Negative Normal Presumptive Negative [facility] Comment on above: Order Comment: [...] By: #### 8 7428-9 #### ALEJANDRO RAMOS ([id number]) [facility] (EM) [address] [place] [address] Opiates Screen Ql (U) Negative Normal Presum ptive Negative [facility] Comment on above: Order Comment: [...] By: #### 8 7428-9 #### ALEJANDRO RAMOS ([id number]) [facility] ([facility]) [address] [place] [address] oxyCODONE+oxyMORphone Screen Ql (U) Negative Normal Presumptive Negative [facility] Comment on above: Order Comment: [...] By: #### 8 7428-9 #### ALEJANDRO RAMOS ([id number]) [facility] ([facility]) [address] [place] [address] Phencyclidine Ql (U) Negative Normal Presump tive Negative [facility] Comment on above: Order Comment: [...] By: #### 8 7428-9 #### ALEJANDRO RAMOS ([id number]) [facility] ([facility]) [address] [place] [address] BI MAMMO BILATERAL DIAGNOSTI C TOMOSYNTHESISon 12-19-2022 BI MAMMO BILATERAL DIAGNOSTIC TOMOSYNTHESIS Interpreted By: Mohan Romano and Jakob Wei STUDY: BI MAMMO BILATERAL DIAGNOSTIC TOMOSYNTHESIS; BI US BREAST LIMITED LEFT; 12/19/2022 9:42 am; 12/19/2022 10:52 am ACCESSION NUMBER(S): [id number]; [id number] ORDERING CLINICIAN: KAROLINA MAN INDICATION: Annual screening [...] axillary abnormality was performed by a registered oil lease operator. No sonographic abnormalities are seen in the [...] any future breast imaging appointments, please call [phone] ([phone]). MACRO: None Signed by: Mohan Romano 12/19/2022 11:32 AM Dictation workstation: [id number] [facility] BI US BREAST LIMITED LEFTon 12-19-2022 BI US BREAST LIMITED LEFT Interpreted By: Mohan Romano, and Jakob Wei STUDY: BI MAMMO BILATERAL DIAGNOSTIC TOMOSYNTHESIS; BI US BREAST LIMITED LEFT; 12/19/2022 9:42 am; 12/19/2022 10:52 am ACCESSION NUMBER(S): [id number]; [id number] ORDERING CLINICIAN: KAROLINA MAN INDICATION: Annual screening [...] axillary abnormality was performed by a registered oil lease operator. No sonographic abnormalities are seen in the [...] any future breast imaging appointments, please call [phone] ([phone]). MACRO: None Signed by: Mohan Romano 12/19/2022 11:32 AM Dictation workstation: [id number] [facility] DBT Breast - bilateral diagn osticon 12-19-2022 Radiology Study observation (narrative) [facility] Work Phone: No Panel Informationon 12-19 [...] any future breast imaging appointments, please call [phone] ([phone]). MACRO: None Signed by: Mohan Romano 12/19/2022 11:32 AM Dictation workstation: [id number] MMODAL Interpreted By: Mohan Romano, and Jakob Wei STUDY: BI MAMMO BILATERAL DIAGNOSTIC TOMOSYNTHESIS; BI US BREAST LIMITED LEFT; 12/19/2022 9:42 am; 12/19/2022 10:52 am ACCESSION NUMBER(S): [id number]; [id number] ORDERING CLINICIAN: KAROLINA MAN INDICATION: Annual screening [...] axillary abnormality was performed by a registered oil lease operator. No sonographic abnormalities are seen in the area of the patient's reported palpable lump or pain. 3 morphologically normal lymph nodes are incidentally seen. MMODAL No Panel InformationOrdered By: Mohan Romano on 12-19-2022 [facility] Work Phone: US Breast - left limitedon 1 Radiology Study observation (narrative) [facility] Work Phone: COMPREHENSIVE PANELon 2022 Albumin [Mass/Vol] 4.6 g/dL Normal 3.4 - 5.0 [facility] Comment on above: Performed By: #### C MP #### [facility] [address] [place] [address] ALP [Catalytic activity/Vol] 63 U/L Normal 33 - 110 [facility] Comment on above: Performed By: #### C MP #### [facility] [address] [place] [address] ALT [Catalytic activity/Vol] 23 U/L Normal 7 - 45 [facility] Comment on above: Result Comment: Lacie ents treated with Sulfasalazine may generate falsely decreased results for ALT. Performed By: #### C MP #### [facility] [address] [place] [address] Anion gap [Moles/Vol] 14 mmol/L Normal 10 - 20 [facility] Comment on above: Performed By: #### C MP #### [facility] [address] [place] [address] AST [Catalytic activity/Vol] 22 U/L Normal 9 - 39 [facility] Comment on above: Performed By: #### C MP #### [place] [address] [place] [address] Bilirubin [Mass/Vol] 0.3 mg/dL Normal 0.0 - 1.2 [facility] Comment on above: Performed By: #### C MP #### [place] [address] [place] [address] Calcium [Mass/Vol] 9.2 mg/dL Normal 8.6 - 10.6 [facility] Comment on above: Performed By: #### C MP #### [facility] [address] [place] [address] Chloride [Moles/Vol] 102 mmol/L Normal 98 - 107 [facility] Comment on above: Performed By: #### C MP #### [facility] [address] [place] [address] Creatinine [Mass/Vol] 0.66 mg/dL Normal 0.50 - 1.05 [facility] Comment on above: Performed By: #### C MP #### [facility] [address] [place] [address] eGFR FEMALE >90 Normal >90 [facility] Comment on above: Result Comment: CALC ULATIONS OF ESTIMATED GFR ARE PERFORMED USING THE 2020 CKD-EPI STUDY REFIT EQUATION WITHOUT THE RACE VARIABLE FOR THE IDMS-TRACEABLE CREATININE METHODS. https://jasn.asnjournals.org/content//ASN.292778 3896 Performed By: #### C MP #### [facility] [address] [place] [address] Glucose [Mass/Vol] 82 mg/dL Normal 74 - 99 [facility] Comment on above: Performed By: #### C MP #### [facility] [address] [place] [address] HCO3 (Bld) [Moles/Vol] 25 mmol/L Normal 21 - 32 [facility] Comment on above: Performed By: #### C MP #### [facility] [address] [place] [address] Potassium [Moles/Vol] 3.9 mmol/L Normal 3.5 - 5.3 [facility] Comment on above: Performed By: #### C MP #### [facility] [address] [place] [address] Protein [Mass/Vol] 7.2 g/dL Normal 6.4 - 8.2 [facility] Comment on above: Performed By: #### C MP #### [facility] [address] [place] [address] Sodium [Moles/Vol] 137 mmol/L Normal 136 - 145 [facility] Comment on above: Performed By: #### C MP #### [facility] [address] [place] [address] Urea nitrogen [Mass/Vol] 17 mg/dL Normal 6 - 23 [facility] Comment on above: Performed By: #### C MP #### [facility] [address] [place] [address] VITAMIN D, 25-HYDROXYon 11-08 VITAMIN D, 25-HYDROXY 36 ng/mL Normal [facility] Comment on above: Result Comment: . DEFICIENCY: < 20 NG/ML INSUFFICIENCY: 20-29 NG/ML SUFFICIENCY: 30-100 NG/ML THIS ASSAY ACCURATELY QUANTIFIES THE SUM OF VITAMIN D3, 25-HYDROXY AND VIT D2,25-HYDROXY. Performed By: #### V TDOH #### [facility] [address] [place] [address] COMPREHENSIVE PANELon 2022 Lab Specimen Source Normal [facility] Comment on above: Performed By: #### C MP #### [facility] [address] [place] [address] Performed By: #### V TDOH #### [facility] [address] [place] [address] XR foot RT min 3V*on 023 XR foot RT min 3V* [facility] Other XR foot RT min 3V* [facility] [employer] Other XR foot RT min 3V* [address] [place] [address] [facility] Other XR foot RT min 3V* [place] [address] [facility] Other XR foot RT min 3V* XRay Report [facility] Other XR foot RT min 3V* Signed [facility] Other XR foot RT min 3V* Patient: Michael Weller MR#: [id number] [facility] Other XR foot RT min 3V* [id number] [facility] Other XR foot RT min 3V* : 1985 Acct:[id number] [facility] Other XR foot RT min 3V* Age/Sex: 36 / F ADM Date: 07/02/22 [facility] Other XR foot RT min 3V* Loc: [id number] Room: Type: [facility] Other XR foot RT min 3V* Attending Dr: Bolivar Sherman NPAmira [facility] Other XR foot RT min 3V* Cop[facility]: Bolivar Sherman [facility] Other XR foot RT min 3V* Ordering Provider: Bolivar Sherman MANAGER [employer] [facility] Other XR foot RT min 3V* Date of Service: 07/02/22 [facility] Other XR foot RT min 3V* XR/XR foot RT min 3V*: Right foot pain [facility] Other XR foot RT min 3V* 3 views RIGHT foot [facility] Other XR foot RT min 3V* COMPARISON:None N [facility] [employer] Other XR foot RT min 3V* HISTORY: RIGHT 5th metatarsal pain for one week [facility] Other XR foot RT min 3V* Acute findings: None [facility] Other XR foot RT min 3V* Degenerative change: Unremarkable [facility] Other XR foot RT min 3V* Soft tissue findings : Unremarkable [facility] Other XR foot RT min 3V* Joint effusion: None [facility] Other XR foot RT min 3V* Postop changes: None [facility] Other XR foot RT min 3V* XR/XR foot RT min 3V* [facility] Other XR foot RT min 3V* IMPRESSION:No acute findings [facility] Other XR foot RT min 3V* Impression dictated by: Roddy Villegas M.D.07/02/2022 1:27 PM [facility] Other XR foot RT min 3V* Dictation Location: [place] [address] [facility] Other XR foot RT min 3V* Transcribed By: LENY 07/02/22 [facility] [employer] [facility] Other XR foot RT min 3V* Dictated By: Roddy Villegas DO 07/02/22 [facility] Other XR foot RT min 3V* Signed By: [facility] [employer] Other XR foot RT min 3V* 07/02/22 1327 [facility] [employer] Other Office Visit (Primary Care F orms)on [...] Anxiety; YOEL = N; Verified Transmission to [id number]; Last Updated By: Shara[employer] [place]; 02/10/2022 3:45:08 PM Chief Complaint An interactive [...] BREAST ULTRASOUND; 10/14/2021 3:38 pm ACCESSION NUMBER(S): [id number] ORDERING CLINICIAN: GRAZYNA MORRISSEY INDICATION: Patient presents with right axillary painful palpable mass for the last 2 years. History of benign right breast mass with unknown pathology in right breast. COMPARISON: Mammogram 06/21/2021, 07/06/2018, 01/08/2018. Breast ultrasound 06/21/2021, 04/23/2020, 07/15/2019, 02/02/2019 FINDINGS: Targeted ultrasound was performed of the right axilla by a registered oil lease operator using elastography. Within the right axilla, no sonographic abnormality is present. The tissues are soft on elastography. Incidental note of normal appearing right axillary lymph node. IMPRESSION: No sonographic evidence of malignancy. Recommendation is clinical follow-up for patient's symptomatology. Screening mammogram in June 2022. BI-RADS CATEGORY: Category: 2 - Benign. Recommendation: Clinical follow-up for symptomatology. For any future breast imaging appointments, please call [phone]). I personally reviewed the images/study and I agree with the findings as stated by family medicine resident Brandt Camairllo MD. Electronically signed by: JAYME STEWART MD Normal [facility] Ultrasound Limited [place] 10-14-2021 MG Breast Screening Normal [facility] Work Phone: Albumin [Mass/volume] in Ser um or PlasmaOrdered By: Kp Alvares on 10-07-2021 Albumin [Mass/Vol] 3.9 g/dL 3.2-5.5 [facility] Basophils Auto (Bld) [#/Vol] Ordered By: Kp Alvares on 10-07-2021 Basophils (Bld) [#/Vol] 0.0 10*3/uL 0.0-0.2 [facility] Basophils/100 WBC Auto (Bld) Ordered By: Kp Alvares on 10-07-2021 Basophils/100 WBC (Bld) 0.6 % . [facility] Blood hemoglobin measurement (mass/volume)Ordered By: Kp Alvares on 10-07-2021 Hemoglobin (Bld) [Mass/Vol] 12.9 g/dL 11.8-15.4 [facility] Blood leukocytes automated c ount (number/volume)Ordered By: Kp Alvares on 10-07-2021 WBC (Bld) [#/Vol] 6.7 10*3/uL 4.5-11.0 [facility] Cholesterol [Mass/volume] in Serum or PlasmaOrdered By: Kp Alvares on 10-07-2021 Cholesterol [Mass/Vol] 192 mg/dL 140-200 [facility] Comment on above: Chol less than 200 m g/dl low risk Chol 201-239 mg/dl borderline risk Chol 240 mg/dl and greater high risk Cholesterol in LDL Calc [Mas s/Vol]Ordered By: Kp Alvares on 10-07-2021 Cholesterol in LDL [Mass/Vol] 104 mg/dL 0-100 [facility] Comment on above: LDL ATP III CLASSIFI CATION LDL less than 100 mg/dL Optimal LDL 100-129 mg/dL Near or above optimal LDL 130-159 mg/dL Borderline high LDL 160-189 mg/dL High LDL greater than 189 mg/dL Very high Cholesterol in VLDL Calc [Ma ss/Vol]Ordered By: Kp Alvares on 10-07-2021 Cholesterol in VLDL [Mass/Vol] 49 mg/dL [facility] Creatinine and Glomerular fi ltration rate.predicted panel (S/P/Bld)Ordered By: Kp Alvares on 10-07-2021 Creatinine [Mass/Vol] 0.60 mg/dL 0.44-1.03 [facility] Eosinophils Auto (Bld) [#/Vo l]Ordered By: Kp Alvares on 10-07-2021 Eosinophils (Bld) [#/Vol] 0.0 10*3/uL 0.0-0.45 [facility] Eosinophils/100 WBC Auto (Bl d)Ordered By: Kp Alvares on 10-07-2021 Eosinophils/100 WBC (Bld) 0.1 % . [facility] Erythrocyte distribution wid th Auto (RBC) [Ratio]Ordered By: Kp Alvares on 10-07-2021 Erythrocyte distribution width (RBC) [Ratio] 14.1 % 11.9-15.3 [facility] Estimated glomerular filtrat ion rate (GFR) non- AmericanOrdered By: Kp Alvares on 10-07-2021 GFR/1.73 sq M.predicted among non-blacks MDRD (S/P/Bld) [Vol rate/Area] > 60 mL/Min [facility] Globulin Calc (S) [Mass/Vol] Ordered By: Kp Alvares on 10-07-2021 Globulin (S) [Mass/Vol] 2.7 g/dL [facility] Hematocrit Auto (Bld) [Volum e fraction]Ordered By: Kp Alvares on 10-07-2021 Hematocrit (Bld) [Volume fraction] 39.2 % 34.0-46.4 [facility] Laboratory - Hematology and Cell countsOrdered By: Kp Alvares on 10-07-2021 Nucleated RBC/100 WBC (Bld) [Ratio] 0.0 % 0-0.5 [facility] Lymphocytes Auto (Bld) [#/Vo l]Ordered By: Kp Alvarse on 10-07-2021 Lymphocytes (Bld) [#/Vol] 2.0 10*3/uL 1.00-4.8 [facility] Lymphocytes/100 WBC Auto (Bl d)Ordered By: Kp Alvares on 10-07-2021 Lymphocytes/100 WBC (Bld) 30.2 % . [facility] MCH Auto (RBC) [Entitic mass ]Ordered By: Kp Alvares on 10-07-2021 MCH (RBC) [Entitic mass] 28.2 pg 24.7-34.3 [facility] MCHC Auto (RBC) [Mass/Vol]Or dered By: Kp Alvares on 10-07-2021 MCHC (RBC) [Mass/Vol] 33.0 g/dL 32.0-35.0 [facility] MCV Auto (RBC) [Entitic vol] Ordered By: Kp Alvares on 10-07-2021 MCV (RBC) [Entitic vol] 85.5 fL 80-100 [facility] Monocytes Auto (Bld) [#/Vol] Ordered By: Kp Alvares on 10-07-2021 Monocytes (Bld) [#/Vol] 0.4 10*3/uL 0.0-0.8 [facility] [facility] Monocytes/100 WBC Auto (Bld) Ordered By: Kp Alvares on 10-07-2021 Monocytes/100 WBC (Bld) 5.4 % . [facility] Neutrophils Auto (Bld) [#/Vo l]Ordered By: Kp Alvares on 10-07-2021 Neutrophils (Bld) [#/Vol] 4.2 10*3/uL 1.8-7.7 [facility] Neutrophils/100 WBC Auto (Bl d)Ordered By: Kp Alvares on 10-07-2021 Neutrophils/100 WBC (Bld) 63.7 % . [facility] No Panel InformationOrdered By: Kp Alvares on 10-07-2021 Estimated GFR () > 60 mL/Min [facility] Comment on above: GFR estimated refere nce range: According to KDOQI guidelines, <60 ml/min/1.73m2 is sufficient to diagnose a patient with chronic kidney disease. Pharmacy Creatinine Clearance (Chem N/A [facility] Platelet mean volume Auto (B ld) [Entitic vol]Ordered By: Kp Alvares on 10-07-2021 Platelet mean volume (Bld) [Entitic vol] 11.4 fL 6.3-10.7 [facility] Platelets Auto (Bld) [#/Vol] Ordered By: Kp Alvares on 10-07-2021 Platelets (Bld) [#/Vol] 164 10*3/uL 150-450 [facility] Protein [Mass/volume] in Ser um or PlasmaOrdered By: Kp Alvares on 10-07-2021 Protein [Mass/Vol] 6.6 g/dL 6.1-7.9 [facility] RBC Auto (Bld) [#/Vol]Ordere d By: Kp Alvares on 10-07-2021 RBC (Bld) [#/Vol] 4.59 10*6/uL 3.60-5.00 [facility] Serum or plasma alanine bynum otransferase measurement without P-5'-P (enzymatic activiOrdered By: Kp Alvares on 10-07-2021 ALT No additional P-5'-P [Catalytic activity/Vol] 16 U/L 10-60 [facility] Serum or plasma albumin/glob ulin mass ratioOrdered By: Kp Alvares on 10-07-2021 Albumin/Globulin [Mass ratio] 1.4 {ratio} [facility] Serum or plasma alkaline jenn sphatase measurement (enzymatic activity/volume)Ordered By: Kp Alvares on 10-07-2021 ALP [Catalytic activity/Vol] 55 U/L 32-92 [facility] Serum or plasma aspartate am inotransferase measurement (enzymatic activity/volume)Ordered By: Kp Alvares on 10-07-2021 AST [Catalytic activity/Vol] 16 U/L 10-42 [facility] Serum or plasma calcium marlon urement (mass/volume)Ordered By: Kp Alvares on 10-07-2021 Calcium [Mass/Vol] 9.2 mg/dL 8.2-10.2 [facility] Serum or plasma chloride any surement (moles/volume)Ordered By: Kp Alvares on 10-07-2021 Chloride [Moles/Vol] 102 mmol/L 95-114 [facility] Serum or plasma glucose marlon urement (mass/volume)Ordered By: Kp Alvares on 10-07-2021 Glucose [Mass/Vol] 86 mg/dL 70-100 [facility] Comment on above: ADA recommended refe rence range Random Glucose Reference Range is dependent on time and content of last meal. Glucose of more than 200 mg/dL in a nonstressed, ambulatory subject supports the diagnosis of Diabetes Mellitus. Serum or plasma high density lipoprotein (HDL) cholesterol measurementOrdered By: Kp Alvares on 10-07-2021 Cholesterol in HDL [Mass/Vol] 39 mg/dL 35-85 [facility] Comment on above: HDL CHOL ATP-III CLA SSIFICATION Cardiovascular Risk HDL > or equal to 60 mg/dL LOW HDL < 40 mg/dL HIGH Serum or plasma potassium me asurement (moles/volume)Ordered By: Kp Alvares on 10-07-2021 Potassium [Moles/Vol] 4.1 mmol/L 3.5-5.1 [facility] Serum or plasma sodium measu rement (moles/volume)Ordered By: Kp Alvares on 10-07-2021 Sodium [Moles/Vol] 134 mmol/L 136-146 [facility] Serum or plasma total biliru bin measurement (mass/volume)Ordered By: Kp Alvares on 10-07-2021 Bilirubin [Mass/Vol] 0.6 mg/dL 0.3-1.2 [facility] Serum or plasma total carbon dioxide measurement (moles/volume)Ordered By: Kp Alvares on 10-07-2021 CO2 [Moles/Vol] 25.9 mmol/L 22.0-30.0 [facility] Serum or plasma total choles terol/high density lipoprotein (HDL) cholesterol mass ratOrdered By: Kp Alvares on 10-07-2021 Cholesterol.total/Cho lesterol in HDL [Mass ratio] 4.9 {ratio} <5.0 [facility] Serum or plasma urea nitroge n measurement (mass/volume)Ordered By: Kp Alvares on 10-07-2021 Urea nitrogen [Mass/Vol] 10 mg/dL 9-23 [facility] TSH DL <= 0.005 mIU/L QnOrde red By: Kp Alvares on 10-07-2021 TSH Qn 2.68 m[IU]/L 0.45-5.33 [facility] Triglyceride [Mass/volume] i n Serum or PlasmaOrdered By: Kp Alvares on 10-07-2021 Triglyceride [Mass/Vol] 246 mg/dL 35-149 [facility] Comment on above: TRIG ATP III CLASSIF ICATION TRIG less than 150 mg/dL Normal TRIG 150-199 mg/dL Borderline high TRIG 200-500 mg/dL High TRIG greater than 500 mg/dL Very high Standard traceable to the Center for Disease Conrtrol and Prevention (CDC) test method. CBC AUTO DIFFon 07-12-2021 BASO # 0.0 103/ul Normal 0.0-0.[address] [facility] Comment on above: Performed By: #### C BC #### [facility] [address] [place] [address] Dr. Kalyn Gutierrez Basophils/100 WBC (Bld) 0.4 % Normal 0.2-2.[address] [facility] Comment on above: Performed By: #### C BC #### [facility] [address] [place] [address] Dr. Kalyn Gutierrez EO # 0.0 103/ul Normal 0.0-0.[address] [facility] Comment on above: Performed By: #### C BC #### [facility] [address] [address] [address] Kalyn Gutierrez Eosinophils/100 WBC (Bld) 0.0 % Critically low 0.9-7.0 [facility] Comment on above: Performed By: #### C BC #### [facility] [address] [address] [address] Kalyn Gutierrez Erythrocyte distribution width (RBC) [Ratio] 12.8 % Normal 11.0-15.[address] [facility] Comment on above: Performed By: #### C BC #### [facility] [address] [place] [address] Dr. Kalyn Gutierrez Hematocrit (Bld) [Volume fraction] 38.8 % Normal 36.0-48.[address] [facility] Comment on above: Performed By: #### C BC #### [facility] [address] [place] [address] Dr. Kalyn Gutierrez Hemoglobin (Bld) [Mass/Vol] 12.4 g/dL Normal 12.0-16.0 [facility] Comment on above: Performed By: #### C BC #### [facility] [address] [place] [address] Dr. Kalyn Gutierrez IG # 0.02 10e3/ul Normal 0.00-0.[address] [facility] Comment on above: Performed By: #### C BC #### [facility] [address] [place] [address] Dr. Kalyn Gutierrez IG % 0.3 % Normal 0.0-0.[address] [facility] Comment on above: Performed By: #### C BC #### [facility] [address] [place] [address] Dr. aKlyn Gutierrez LYMPH # 1.8 103/ul Normal 1.2-3.8 [facility] Comment on above: Performed By: #### C BC #### [facility] [address] [place] [address] Dr. Kalyn Gutierrez Lymphocytes/100 WBC (Bld) 25.0 % Normal 20.5-60.[address] [facility] Comment on above: Performed By: #### C BC #### [facility] [address] [place] [address] Dr. Kalyn Gutierrez MANUAL DIFF REQ NO Normal [facility] Comment on above: Performed By: #### C BC #### [facility] [address] [place] [address] Dr. Kalyn Gutierrez MCH (RBC) [Entitic mass] 28.2 pg Normal 26.7-34.[address] [facility] Comment on above: Performed By: #### C BC #### [facility] [address] [place] [address] Dr. Kalyn Gutierrez MCHC (RBC) [Mass/Vol] 32.0 g/dL Normal 29.9-35.[address] [facility] Comment on above: Performed By: #### C BC #### [facility] [address] [place] [address] Dr. Kalyn Gutierrez MCV (RBC) [Entitic vol] 88.4 fL Normal 81.0-99.[address] [facility] Comment on above: Performed By: #### C BC #### [facility] [address] [address] [address] Kalyn Gutierrez MONO # 0.6 103/ul Normal 0.3-0.[address] [facility] Comment on above: Performed By: #### C BC #### [facility] [address] [place] [address] Dr. Kalyn Gutierrez Monocytes/100 WBC (Bld) 8.7 % Normal 1.7-12.[address] [facility] Comment on above: Performed By: #### C BC #### [facility] [address] [place] [address] Dr. Kalyn Gutierrez NEUT # 4.8 103/ul Normal 1.4-6.[address] [facility] Comment on above: Performed By: #### C BC #### [facility] [address] [place] [address] Dr. Kalyn Gutierrez Neutrophils/100 WBC (Bld) 65.6 % Normal 43.0-75.[address] [facility] Comment on above: Performed By: #### C BC #### [facility] [address] [place] [address] Dr. Kalyn Gutierrez Platelet mean volume (Bld) [Entitic vol] 12.3 fL Normal 9.5-13.5 [facility] Comment on above: Performed By: #### C BC #### [facility] [address] [place] [address] Dr. Kalyn Gutierrez PLT 183 103/ul Normal 150-450 [facility] Comment on above: Performed By: #### C BC #### [facility] [address] [place] [address] Dr. Kalyn Gutierrez RBC 4.39 106/ul Normal 4.20-5.[address] [facility] Comment on above: Performed By: #### C BC #### [facility] [address] [address] [address] Kalyn Gutierrez WBC 7.3 103/ul Normal 4.0-11.[address] [facility] Comment on above: Performed By: #### C BC #### [facility] [address] [place], [place] [address] Dr. Kalyn Gutierrez PREG QUANT HCGon 07-12-2021 HCG QUANT <[address] [facility] Comment on above: Performed By: #### P REGQNT #### [facility] [address] [address] [address] Kalyn Gutierrez HCG RANGE SEE BELOW Normal [facility] Comment on above: Result Comment: 5-50 0-1 WEEK 40-300 1-2 WEEKS 100-1,000 2-3 WEEKS 500-6,000 3-4 WEEKS 5,000-200,000 1-2 MONTHS 10,000-100,000 2-3 MONTHS 3,000-50,000 2ND TRIMESTER 1,000-50,000 3RD TRIMESTER Performed By: #### P REGQNT #### [facility] [id number] Kalyn Gutierrez US PELVIS AND TRANSVAGon [...] NOEMI KRISHNA Date: 2021-06-22 09:10 Normal [facility] DIGITAL DIAG MAMM BILAT WITH TOMOon 06-21-2021 DIGITAL DIAG MAMM BILAT WITH SUSANA Patient Name: MICHAEL WELLER STUDY: DIGITAL DIAG MAMM BILAT WITH SUSANA; BREAST ULTRASOUND; 06/21/2021 3:05 pm; 06/21/2021 3:31 pm ACCESSION NUMBER(S): [id number]; [id number] ORDERING CLINICIAN: RAFAELA ARGUELLO INDICATION: Right breast [...] transverse dimension. On the prior mammogram from 2019 the mass measures approximately 3.1 x 1.2 x 2.5 cm. No suspicious masses or calcifications are identified. ULTRASOUND: Targeted right breast ultrasound was performed by a registered oil lease operator utilizing elastography. The irregular hypoechoic parallel mass [...] any future breast imaging appointments, please call [phone] ([phone]). Patient letter sent SAAPPR Electronically signed by: MOHAN ROMANO MD Normal [facility] IO UA (automated w/o microsc opy)on 06-21-2021 Protein (U) [Mass/Vol] Negative [facility] Work Phone: IO UA (automated w/o microscopy) Negative [facility] Work Phone: IO UA (automated w/o microscopy) Normal (0.2-1.0 mg/dl) [facility] Work Phone: IO UA (automated w/o microscopy) 6.[address] [facility] Work Phone: IO UA (automated w/o microscopy) 1.[address] [facility] Work Phone: IO UA (automated w/o microscopy) Clear [facility] Work Phone: IO UA (automated w/o microscopy) Yellow [facility] Work Phone: IO Ultrasound, measurement p ost-void resid urine and/or bl cap; no imagon 06-21-2021 IO Ultrasound, measurement post-void resid urine and/or bl cap; no imag [address] [facility] Work Phone: Radiologyon 06-21-2021 MG Breast Diagnostic Please click on the link to view the study images Normal [facility] Work Phone: MG Breast Diagnostic Normal MP-W SPC-[place] [facility] 200 Work Phone: Tobacco Screening.on 022 Fall risk assessment a) No falls within the last year [facility] Work Phone: Tobacco use status CPHS b) No [facility] Work Phone: ULTRASOUND LIMITED BREASTon 06-21-2021 ULTRASOUND LIMITED BREAST Patient Name: MICHAEL WELLER STUDY: DIGITAL DIAG MAMM BILAT WITH SUSANA; BREAST ULTRASOUND; 06/21/2021 3:05 pm; 06/21/2021 3:31 pm ACCESSION NUMBER(S): [id number]; [id number] ORDERING CLINICIAN: RAFAELA ARGUELLO INDICATION: Right breast [...] transverse dimension. On the prior mammogram from 2019 the mass measures approximately 3.1 x 1.2 x 2.5 cm. No suspicious masses or calcifications are identified. ULTRASOUND: Targeted right breast ultrasound was performed by a registered oil lease operator utilizing elastography. The irregular hypoechoic parallel mass [...] any future breast imaging appointments, please call [phone] ([phone]). Patient letter sent SAAPPR Electronically signed by: MOHAN ROMANO MD Normal [facility] Ultrasound Limited Breaston 06-21-2021 MG Breast Screening Normal MP-WS -[facility] ke 200 Work Phone: IO UA (automated w/o microsc opy)on 06-04-2021 Protein (U) [Mass/Vol] Negative JL-QXVE-Jfjxfo ke 200 Work Phone: IO UA (automated w/o microscopy) Negative WE-TTJJ-Dciuut ke 200 Work Phone: IO UA (automated w/o microscopy) Normal ZV-MYUB-Gcxnkw ke 200 Work Phone: IO UA (automated w/o microscopy) 7.0 1 GE-SDSV-Dmqwbu ke 200 Work Phone: IO UA (automated w/o microscopy) 1.020 1 QS-CVWB-Xbgauc ke 200 Work Phone: IO UA (automated w/o microscopy) Clear VG-GQHT-Csmkaz ke 200 Work Phone: IO UA (automated w/o microscopy) Yellow UB-HXJB-Avgrqd ke 200 Work Phone: Tobacco Screening.on 022 Adult depression screening assessment No MP-WSPC-Luiz tla ke 200 Work Phone: Fall risk assessment a) No falls within the last year IK-THIP-Nvxwsd ke 200 Work Phone: Last menstrual period start date 14May2021 FJ-GDXR-Zposie ke 200 Work Phone: Tobacco use status CPHS b) No OM-OFVD-Nbtsch ke 200 Work Phone: PAP ACOG PANEL 2: 30 to 65on 03-28-2021 . . Normal [facility] Comment on above: Result Comment: Perf ormed at: WB Performed By: #### [id number] #### [facility] [address] [place] [address] Dr. Kalyn Gutierrez Age Gdln ACOG Testing 30-[address] [facility] Comment on above: Performed By: #### [id number] #### [facility] [address] [place] [address] Dr. Kalyn Gutierrez DIAGNOSIS: Comment Normal [facility] Comment on above: Result Comment: NEGA TIVE FOR INTRAEPITHELIAL LESION OR MALIGNANCY. Performed at: WB Performed By: #### [id number] #### [facility] [address] [place] [address] Dr. Kalyn Gutierrez HPV Aptima Negative Normal Negative [facility] Comment on above: Result Comment: This nucleic acid amplification test detects fourteen high-risk HPV types (16,18,31,33,35,39,45,51,52,56,58,59,66,68) without differentiation. Performed at: =G Performed By: #### [id number] #### [facility] [address] [place] [address] Dr. Kalyn Gutierrez Methodology: Comment Normal [facility] Comment on above: Result Comment: This liquid based ThinPrep(R) pap test was screened with the use of an image guided system. Performed at: WB Performed By: #### [id number] #### [facility] [address] [place] [address] Dr. Kalyn Gutierrez Note: Comment Normal [facility] Comment on above: Result Comment: The Pap smear is a screening test designed to aid in the detection of premalignant and malignant conditions of the uterine cervix. It is not a diagnostic procedure and should not be used as the sole means of detecting cervical cancer. Both false-positive and false-negative reports do occur. . Performed at: WB Performed By: #### [id number] #### [facility] [address] [place] [address] Dr. Kalyn Gutierrez Performed by: Comment Normal [facility] Comment on above: Result Comment: Tawnya Del Rio, Marine Electronics Repairer (ASCP) Performed at: WB Performed By: #### [id number] #### [facility] [address] [place] [address] Dr. Kalyn Gutierrez Specimen adequacy: Comment Normal [facility] Comment on above: Result Comment: Sati sfactory for evaluation. Endocervical and/or squamous metaplastic cells (endocervical component) are present. Performed at: WB Performed By: #### [id number] #### [facility] [address] [place] [address] Dr. Kalyn Gutierrez Vital Signs Date Time Vital Sign Value Performing Clinician Facility 09-05-2023 13:24-0400 Body height 165.1 cm [facility] 09-05-2023 13:24-0400 Body mass index (BMI) [Ratio] 29.2 kg/m2 [facility] 09-05-2023 13:24-0400 Body temperature 97.9 [degF] [facility] 09-05-2023 13:24-0400 Body weight 79.83 kg [facility] 09-05-2023 13:24-0400 Diastolic blood pressure 85 mm[Hg] [facility] 09-05-2023 13:24-0400 Heart rate 106 /min [facility] 09-05-2023 13:24-0400 Respiratory rate 18 /min [facility] 09-05-2023 13:24-0400 SaO2% (BldA) [Mass fraction] 96 % [facility] 09-05-2023 13:24-0400 Systolic blood pressure 120 mm[Hg] [facility] 07-22-2023 14:37-0400 Body height 165.1 cm Jhonny Lee MD Work Phone: [facility] 07-22-2023 14:37-0400 Body mass index (BMI) [Ratio] 30.72 kg/m2 Jhonny Lee MD Work Phone: [facility] 07-22-2023 14:37-0400 Body weight 83.73 kg Jhonny Lee MD Work Phone: [facility] 07-22-2023 14:37-0400 Diastolic blood pressure 78 mm[Hg] Jhonny Lee MD Work Phone: [facility] 07-22-2023 14:37-0400 Heart rate 111 /min Jhonny Lee MD Work Phone: [facility] 07-22-2023 14:37-0400 Systolic blood pressure 118 mm[Hg] Jhonny Lee MD Work Phone: [facility] 04-27-2023 15:40-0500 Body height 165.1 cm Jhonny Lee MD Work Phone: [facility] 04-27-2023 15:40-0500 Body mass index (BMI) [Ratio] 34.15 kg/m2 Jhonny Lee MD Work Phone: [facility] 04-27-2023 15:40-0500 Body weight 93.08 kg Jhonny Lee MD Work Phone: [facility] 04-27-2023 15:40-0500 Diastolic blood pressure 60 mm[Hg] Jhonny Lee MD Work Phone: [facility] 04-27-2023 15:40-0500 Heart rate 123 /min Jhonny Lee MD Work Phone: [facility] 04-27-2023 15:40-0500 Respiratory rate 14 /min Jhonny Lee MD Work Phone: [facility] 04-27-2023 15:40-0500 Systolic blood pressure 104 mm[Hg] Jhonny Lee MD Work Phone: [facility] 02-19-2023 10:39-0500 Body height 165.1 cm Jhonny Lee MD Work Phone: [facility] 02-19-2023 10:39-0500 Body mass index (BMI) [Ratio] 36.08 kg/m2 Jhonny Lee MD Work Phone: [facility] 02-19-2023 10:39-0500 Body weight 98.34 kg Jhonny Lee MD Work Phone: [facility] 02-19-2023 10:39-0500 Diastolic blood pressure 83 mm[Hg] Jhonny Lee MD Work Phone: [facility] 02-19-2023 10:39-0500 Heart rate 94 /min Jhonny Lee MD Work Phone: [facility] 02-19-2023 10:39-0500 Systolic blood pressure 117 mm[Hg] Jhonny Lee MD Work Phone: [phone] [place] [address] 07-02-2022 13:20-0400 Body height 165.1 cm Bolivar Sherman Other [employer] Other 07-02-2022 13:20-0400 Body mass index (BMI) [Ratio] 33.28 kg/m2 Bolivar Sherman Other [employer] Other 07-02-2022 13:20-0400 Body weight 90.72 kg Bolivar Sherman Other [employer] Other 07-02-2022 13:20-0400 Diastolic blood pressure 78 mm[Hg] Bolivar Sherman Other [employer] Other 07-02-2022 13:20-0400 Respiratory rate 18 /min Bolivar Sherman Other [employer] Other 07-02-2022 13:20-0400 SaO2% (BldA) [Mass fraction] 99 % Bolivar Sherman Other [employer] Other 07-02-2022 13:20-0400 Systolic blood pressure 117 mm[Hg] Bolivar Sherman Other [employer] Other 10-14-2021 15:07-0400 Diastolic blood pressure 98 mm[Hg] Rafaela Arguello Work Phone: [employer] Work Phone: 10-14-2021 15:07-0400 Heart rate 103 /min Rafaela Arguello Work Phone: [employer] Work Phone: 10-14-2021 15:07-0400 Systolic blood pressure 132 mm[Hg] Rafaela Arguello Work Phone: [employer] Work Phone: 06-21-2021 08:13-0400 Body height 165.1 cm Rafaela Silva Hema Work Phone: [facility] Work Phone: 06-21-2021 08:13-0400 Body mass index (BMI) [Ratio] 33.28 kg/m2 Rafaela Silva Arguello Work Phone: [facility] Work Phone: 06-21-2021 08:13-0400 Body surface area Derived from formula 1.98 m2 Rafaela Silva Arguello Work Phone: [facility] Work Phone: 06-21-2021 08:13-0400 Body temperature 97.2 [degF] Rafaela Silva Arguello Work Phone: [phone] [place] [address] Work Phone: 06-21-2021 08:13-0400 Body weight 90.72 kg Rafaela Silva Arguello Work Phone: [facility] Work Phone: 06-21-2021 08:13-0400 Diastolic blood pressure 82 mm[Hg] Rafaela Silva Arguello Work Phone: [facility] Work Phone: 06-21-2021 08:13-0400 Heart rate 89 /min Rafaela Silva Arguello Work Phone: [facility] Work Phone: 06-21-2021 08:13-0400 Systolic blood pressure 115 mm[Hg] Rafaela Silva Arguello Work Phone: [facility] Work Phone: 06-04-2021 13:05-0400 Body height 167.64 cm Rafaela Arguello Work Phone: BD-LLTA-Tqbmfxzb 200 Work Phone: 06-04-2021 13:05-0400 Body mass index (BMI) [Ratio] 32.77 kg/m2 Rafaela Arguello Work Phone: [place]-ANBS-Hdsdhjdi 200 Work Phone: 06-04-2021 13:05-0400 Body surface area Derived from formula 2.01 m2 Rafaela Arguello Work Phone: KB-ZOHC-Modjvvqh 200 Work Phone: 06-04-2021 13:05-0400 Body temperature 98.2 [degF] Rafaela Arguello Work Phone: JK-SRDR-Cpenrqtj 200 Work Phone: 06-04-2021 13:05-0400 Body weight 92.08 kg Rafaela Arguello Work Phone: FV-OWDI-Sworctwh 200 Work Phone: 06-04-2021 13:05-0400 Diastolic blood pressure 76 mm[Hg] Rafaela Arguello Work Phone: GQ-ZEDX-Ziruexza 200 Work Phone: 06-04-2021 13:05-0400 Heart rate 80 /min Rafaela Arguello Work Phone: PC-KXNK-Tqlqurst 200 Work Phone: 06-04-2021 13:05-0400 Respiratory rate 16 /min Rafaela Arguello Work Phone: UJ-VMJR-Pbrugvlj 200 Work Phone: 06-04-2021 13:05-0400 Systolic blood pressure 122 mm[Hg] Rafaela Arguello Work Phone: HS-DCFA-Zbcpiunh 200 Work Phone: 12-07-2019 11:03-0400 BMI (Body Mass Index) 31.95 kg/m2 Rafaela Arguello XQ-IWYP-Iglpsygy 200 Work Phone: 12-07-2019 11:03-0400 Body Temperature 98.3 [degF] Rafaela Arguello OG-ZAJX-Wcjxriw e 200 Work Phone: Comment on above: Method: Temporal 12-07-2019 11:03-0400 Body weight 87.77 kg Rafaela Arguello QA-LQHW-Ldeooogh 200 Work Phone: 12-07-2019 11:03-0400 BP Diastolic 74 mm[Hg] Rafaela Arguello CR-KKPJ-Qswkwvmt 200 Work Phone: 12-07-2019 11:03-0400 BP Systolic 118 mm[Hg] Rafaela Arguello MP-WSPC-[place] 200 Work Phone: 12-07-2019 11:03-0400 BSA (Body Surface Area) 1.96 m2 Rafaela Arguello GL-HDIR-Gaktegzh 200 Work Phone: 12-07-2019 11:03-0400 Height 165.74 cm Rafaela Arguello QT-RNMH-Etxrhfyi 200 Work Phone: 12-07-2019 11:03-0400 Pulse (Heart Rate) 84 /min Rafaela Arguello KF-ZMHE-Uhzlr mayur 200 Work Phone: 12-07-2019 11:03-0400 Respiratory Rate 16 /min Rafaela Arguello MP-WSPC-[place] 200 Work Phone: 05-16-2019 18:12-0400 BMI (Body Mass Index) 33.45 kg/m2 Rafaela Arguello MP-WSPC-[place] [facility] [facility] Work Phone: 05-16-2019 18:12-0400 Body Temperature 98.3 [degF] Rafaela Arguello MP-WSPC-[place] 25 [address] [facility] Work Phone: 05-16-2019 18:12-0400 Body weight 91.17 kg Rafaela Arguello MP-WSPC-[place] 253 [address] [facility] Work Phone: 05-16-2019 18:12-0400 BP Diastolic 76 mm[Hg] Rafaela Arguello MP-WSPC-[place] [address] [facility] Work Phone: 05-16-2019 18:12-0400 BP Systolic 122 mm[Hg] Rafaela Arguello MP-WSPC-[place] [address] [facility] Work Phone: 05-16-2019 18:12-0400 BSA (Body Surface Area) 1.98 m2 Rafaela Arguello JC-GIPQ-Rjdt [address] [facility] Work Phone: 05-16-2019 18:12-0400 Pulse (Heart Rate) 88 /min Rafaela Arguello MP-WSPC-[place] [facility] [facility] Work Phone: 05-16-2019 18:12-0400 Pulse Oximetry 98 % Rafaela Arguello LT-VEBV-Cwww 253 [address] [facility] Work Phone: 05-16-2019 18:12-0400 Respiratory Rate 18 /min Rafaela Arguello MP-WSPC-[place] 25 [address] [facility] Work Phone: Encounters Encounter Date Encounter Type Care Provider Facility Start: 10-20-2023 End: 10-20-2023 ambulatory MATT STAPLETON Not Available Start: 09-05-2023 End: 09-05-2023 Departed Referred COMMERCIAL REAL ESTATE ASSISTANT Swetha Andersen Work Phone: [facility] 250 Start: 09-05-2023 End: 09-05-2023 ambulatory PHYSICIAN [facility] Work Phone: Start: 09-05-2023 End: 09-05-2023 Patient encounter procedure [facility] Physician [facility] Amandeep Work Phone: Start: 09-01-2023 End: 09-01-2023 ambulatory ROULA BLEDSOE Facility:[facility] Start: 09-01-2023 End: 09-01-2023 Patient encounter procedure Roula Bledsoe COMMERCIAL REAL ESTATE ASSISTANT.VAULT CLERK Work Phone: [facility] [place] Comment on above: Dermatofibroma (Prim ottoniel Dx); Lentigines; Multiple benign nevi; Becerril angioma; Hx of malignant melanoma Start: 07-22-2023 End: 07-22-[address] [facility] Ambulatory Start: 07-22-2023 End: 07-22-2023 Office outpatient visit 25 minutes Jhonny Lee MD Work Phone: [facility] Comment on above: Encephalopathy (Prim ottoniel Dx); Attention deficit hyperactivity disorder (ADHD), predominantly inattentive type; Insomnia due to medical condition; Anxiety Start: 07-02-2023 End: 07-02-2023 ambulatory MATT STAPLETON Not Available Start: 04-27-2023 End: 04-27-2023 ambulatory [facility] Ambulatory Start: 04-27-2023 End: 04-27-2023 Office outpatient visit 25 minutes Jhonny Lee MD Work Phone: [facility] Comment on above: Encephalopathy (Prim ottoniel Dx); Attention deficit hyperactivity disorder (ADHD), predominantly inattentive type; Insomnia due to medical condition; Anxiety Start: 03-04-2023 End: 03-04-2023 ambulatory [facility] Ambulatory Start: 03-04-2023 End: 03-04-2023 Office outpatient visit 15 minutes Karolina Man DO Work Phone: [facility] Comment on above: Anxiety Start: 02-19-2023 End: 02-19-2023 ambulatory [facility] Ambulatory Start: 02-19-2023 End: 02-19-2023 Office outpatient new 60 minutes Jhonny Lee MD Work Phone: [facility] Comment on above: Encephalopathy (Prim ottoniel Dx); Anxiety; Attention deficit hyperactivity disorder (ADHD), predominantly inattentive type Start: 12-19-2022 End: 12-19-2022 Subsequent hospital visit by physician Martha Breast Ultrasound 1 [facility] Comment on above: Lump in female breas t Start: 12-19-2022 End: 12-19-2022 ambulatory KAROLINA Cota [facility] Start: 12-19-2022 End: 12-19-2022 ambulatory KAROLINA Cota [facility] Start: 12-19-2022 End: 12-19-2022 Subsequent hospital visit by physician Martha Mammo 1 [facility] Comment on above: Abnormal mammogram Start: 12-03-2022 End: 12-03-2022 ambulatory [facility] Ambulatory Start: 10-16-[address] Work Phone: [facility] Work Phone: Start: 07-02-2022 Office outpatient vi sit 25 minutes Bolivar [facility] [address] Start: 07-02-2022 End: 07-02-2022 ambulatory DO Danielle Infante Work Phone: [facility] Work Phone: Start: 07-02-2022 End: 07-02-2022 Patient encounter procedure DO Danielle Infante Work Phone: [facility] 250 Start: 04-14-2022 Rx Renewal Rafaela Sanabria rd Work Phone: OT-PRLC-Wjfyprgw 200 Work Phone: Start: 03-17-2022 Rx Renewal Rafaela Sanabria rd Work Phone: RI-NLIK-Wnumjmyi 200 Work Phone: Start: 02-10-2022 ambulatory Ms. Rafaela Norton edmar Arguello Facility:[id number] Start: 02-10-2022 Office outpatient vi sit 25 minutes Rafaela Arguello Work Phone: BP-WAVO-Exwgjriw 200 Work Phone: Start: 10-30-2021 Rx Renewal Rafaela Sanabria rd Work Phone: XX-MRES-Rvpmkfnz 200 Work Phone: Start: 10-17-2021 End: 10-17-2021 Patient encounter procedure Roula Bledsoe VAULT CLERK Work Phone: [facility] [place] Comment on above: Lentigines (Primary Dx); Multiple benign nevi; Becerril angioma; Exposure to tanning bed, sequela; Hx of malignant melanoma; Dermatofibroma Start: 10-14-2021 Office consultation new/estab patient 60 min Rafaela Arguello Work Phone: -[facility] Work Phone: Start: 10-14-2021 Patient encounter procedure Rafaela Shira Hema Work Phone: -[facility] Work Phone: Start: 10-08-2021 Office outpatient vi sit 25 minutes Rafaela Arguello Work Phone: CE-NHOS-Ahxjdufb 200 Work Phone: Start: 10-08-2021 ambulatory Ms. Rafaela Arguello Facility:[id number] Start: 10-07-2021 End: 10-07-2021 Departed Referred DO Danielle Infante Work Phone: [facility] Start: 10-02-2021 Rx Renewal Rafaela Sanabria rd Work Phone: RS-ZIAW-Xkhsrilc 200 Work Phone: Start: 09-06-2021 Patient encounter procedure [facility] E Hema [facility] Work Phone: Start: 09-06-2021 ambulatory Ms. Rafaela Arguello Facility:[id number] Start: 07-12-2021 End: 07-12-[address] SHASHANK BARAJAS Facility:H1 Start: 07-11-2021 Encounter for preprocedural cardiovascular examination DR MATT STAPLETON [facility] Start: 07-10-2021 End: 07-11-[address] MATT STAPLETON Facility:H1 Start: 07-10-2021 End: 07-11-2021 Encounter for preprocedural cardiovascular examination DR MATT STAPLETON Facility:H1 Start: 07-09-[address] MATT STAPLETON Facility :H1 Start: 07-01-[address] Work Phone: DY-MIHJ-Ugrucehj 200 Work Phone: Start: 06-28-2021 Chart Update Rafaela Sanabria rd Work Phone: AH-TUAR-Cqkagrks 200 Work Phone: Start: 06-27-[address] Work Phone: FW-OMZK-Oyiccsuc 200 Work Phone: Start: 06-21-2021 End: 06-22-[address] MATT STAPLETON Facility:H1 Start: 06-04-2021 Office outpatient vi sit 25 minutes Rafaela Silva Hema Work Phone: GV-JOCG-Pbmtukhi 200 Work Phone: Start: 06-04-2021 Patient encounter procedure Rafaela Arguello Work Phone: HV-BFMB-Eihtyssp 200 Work Phone: Start: 06-04-2021 ambulatory Ms. Rafaela Arguello Facility:[id number] Start: 03-25-2021 End: 03-25-[address] MATT STAPLETON Facility:H1 Start: 12-07-2019 Patient encounter procedure Rafaela Arguello PT-RAQJ-Xxsfhxuz 200 Work Phone: Start: 05-16-2019 Patient encounter procedure Rafaela Arguello JD-RKDA-Kpju [facility] [facility] Work Phone: Start: 09-27-2018 Patient encounter procedure Rafaela Arguello KY-JPEN-Nhzj [address] [facility] Work Phone: Start: 09-14-2018 Patient encounter procedure Rafaela Arguello AE-LJRC-Gpfw [address] [facility] Work Phone: Start: 07-17-2017 Patient encounter procedure Rafaela Arguello JG-QYUB-Wdxv [address] [facility] Work Phone: Procedures Date [...] Surgery Rafaela Arguello Hyperlipidemia screening Tho francesca [place] Other Procedure on back Rafaela croft Work Phone: Removal of suture Bolivar For anabell Other Tonsillectomy Rafaela Arguello Total replacement of hip Keaton Arguello Plan of Treatment Date Care Activity Detail Author Start: 10-26-2037 Zoster Vaccines (1 o f 2) Zoster Vaccines (1 of 2) [facility] Start: 10-17-2025 Screening for malignant neoplasm of cervix [facility] Start: 04-23-2025 Lipid panel Lipid Panel [facility] Start: 03-25-2024 Screening for malignant neoplasm of cervix [facility] Start: 11-08-2023 Influenza vaccination Influenz a Vaccine (Season Ended) [facility] Start: 10-14-2023 End: 10-14-2023 Patient encounter procedure 10/14/2023 3:15 PM EDT Office Visit [facility] [address] [place] Tessy [facility] [place] [id number] Jhonny Lee MD [address] [facility], [address] [id number] [facility] Start: 09-05-2023 Bacteria identified in Urine by Culture [facility] Start: 07-22-2023 End: 07-22-2023 Patient encounter procedure 07/22/2023 3:15 PM EDT Office Visit [facility] [address] [place] Tess[place] [facility] [place] [phone] Jhonny Lee MD [address] [facility], [address] [address] [facility] Start: 04-27-2023 End: 04-27-2023 Patient encounter procedure 04/27/2023 3:15 PM EST Office Visit [facility] [address] [facility] Tessy [facility] [place] [phone] Jhonny Lee MD [address] [facility], [address] [id number] [facility] Start: 03-09-2023 Behavioral Health Screening Behavioral Health Screening [facility] Start: 03-04-2023 End: 03-04-2023 Patient encounter procedure 03/04/2023 8:40 AM EST Office Visit [facility] [id number] [facility] [address] [place] [address] [place] [address] [facility] [address] [place] [address] [facility] Start: 02-19-2023 End: 02-20-2024 Drugs of abuse screen W Reflex confirm panel - Urine [facility] Service Area Work Phone: Comment on above: Expected: 02/19/2023 (Approximate), Expires: 02/20/2024 Start: 02-19-2023 End: 02-19-2023 Patient encounter procedure 02/19/2023 10:15 AM EST Office Visit [facility] [address] [facility] [address] [facility] [place] [address] Jhonny Lee MD [address] [facility], [facility] [address] [place] [address] [facility] Start: 11-07-2022 COVID-19 Vaccine ( season) COVID-19 Vaccine ( season) [facility] Start: 11-07-2022 Influenza vaccination Influenza Vacc ine (#1) [facility] Start: 01-21-2022 FUV, Provider: Luz Aguilar, Status: Pen, Time: 3:40 PM FUV, Provider: Luz Aguilar, Status: Pen, Time: 3:40 PM TW-RNLG-Boxbkvzb 200 Work Phone: Start: 01-20-2022 [id number], Provider: Bisi Prabhakar, Status: Pen, Time: 5:00 PM [id number], Provider: Bisi Prabhakar, Status: Pen, Time: 5:00 PM [facility] Work Phone: Start: 01-13-2022 [id number], Provider: Bisi Prabhakar, Status: Pen, Time: 5:00 PM [id number], Provider: Bisi Prabhakar, Status: Pen, Time: 5:00 PM [facility] Work Phone: Start: 01-08-2022 [id number], Provider: Bisi Prabhakar, Status: Pen, Time: 4:00 PM [id number], Provider: Bisi Prabhakar, Status: Pen, Time: 4:00 PM [facility] [facility] Work Phone: Start: 01-01-2022 [id number], Provider: Bisi Prabhakar, Status: Pen, Time: 4:00 PM [id number], Provider: Bisi Prabhakar, Status: Pen, Time: 4:00 PM [facility] [facility] Work Phone: Start: 12-25-2021 [id number], Provider: Bisi Prabhakar, Status: Pen, Time: 4:00 PM [id number], Provider: Bisi Prabhakar, Status: Pen, Time: 4:00 PM [facility] Work Phone: Start: 12-17-2021 [id number], Provider: Bisi Prabhakar, Status: Pen, Time: 5:00 PM [id number], Provider: Bisi Prabhakar, Status: Pen, Time: 5:00 PM [facility] Work Phone: Start: 11-07-2021 Influenza vaccination INFLUENZA (#1) [facility] Start: 10-16-2021 NPV, Provider: Nafisa Bermudez, Status: Pen, Time: 1:00 PM NPV, Provider: Nafisa Bermudez, Status: Pen, Time: 1:00 PM EV-ZFOV-Uwrjwilf 200 Work Phone: Start: 10-08-2021 VIRFUVHOME, Provider : Rafaela Arguello, Status: Pen, Time: 11:40 AM VIRFUVHOME, Provider: Rafaela Arguello, Status: Pen, Time: 11:40 AM PW-SRXH-Xjnlhlna 200 Work Phone: Start: 09-30-2021 FUV, Provider: Luz Aguilar, Status: Pen, Time: 1:40 PM FUV, Provider: Luz Aguilar, Status: Pen, Time: 1:40 PM [facility] Work Phone: Start: 09-18-2021 [id number], Provider: Bisi Prabhakar, Status: Pen, Time: 10:00 AM [id number], Provider: Bisi Prabhakar, Status: Pen, Time: 10:00 AM [facility] Work Phone: Start: 09-06-2021 [id number], Provider: Bisi Prabhakar, Status: Pen, Time: 8:00 AM [id number], Provider: Bisi Prabhakar, Status: Pen, Time: 8:[address] [facility] Work Phone: Start: 08-02-2021 FUV, Provider: Luz Aguilar, Status: Pen, Time: 8:20 AM FUV, Provider: Luz Aguilar, Status: Pen, Time: 8:[address] [facility] Work Phone: Start: 06-21-2021 NPV, Provider: Luz Aguilar, Status: Pen, Time: 8:00 AM NPV, Provider: Luz Aguilar, Status: Pen, Time: 8:[address] [facility] Work Phone: Start: 03-27-2021 COVID-19 VACCINE (3 - Booster for Pfizer series) COVID-19 VACCINE (3 - Booster for Pfizer series) [facility] Start: 12-20-2020 COVID-19 Vaccine (3 - Pfizer series) COVID-19 Vaccine (3 - Pfizer series) [facility] Start: 01-09-2020 FFD mammogram Breast screening Mamm - Ultrasound of Breast [place] [address] Work Phone: Start: 10-26-2017 HPV TESTING HPV TESTING [facility] Start: 10-26-2009 DTaP/Tdap/Td Vaccine s (1 - Tdap) DTaP/Tdap/Td Vaccines (1 - Tdap) [facility] Start: 10-26-2008 PAP TESTING PAP TESTING [facility] Start: 10-26-2008 Screening for malignant neoplasm of cervix [facility] Start: 10-26-2006 Hepatitis B Vaccine (1 of 3 - 19+ 3-dose series) Hepatitis B Vaccine (1 of 3 - 19+ 3-dose series) [facility] Start: 10-26-2006 Hepatitis B Vaccines (1 of 3 - 19+ 3-dose series) Hepatitis B Vaccines (1 of 3 - 19+ 3-dose series) [facility] Start: 10-26-2006 Urine microalbumin profile [facility] Start: 10-26-2005 HEPATITIS C SCREENING HEPATITIS C [facility] Start: 10-26-2005 Hepatitis C screening Hepatitis C [facility] Start: 10-26-2005 HIV SCREENING HIV SCREENING [facility] Start: 10-26-2005 HIV screening HIV Screening [facility] Start: 10-26-2000 Varicella vaccination Varicell a Vaccines (1 of 2 - 13+ 2-dose series) [facility] Start: 1999 Adult depression screening assessment DEPRESSION SCREENING [facility] Start: 10-26-1988 MMR Vaccines (1 of 1 - Standard series) MMR Vaccines (1 of 1 - Standard series) [facility] Start: 10-26-1988 Varicella vaccination Varicell a Vaccines (1 of 2 - 2-dose childhood series) [facility] Start: 1987 HEPATITIS B (1 of 3 - 3-dose series) HEPATITIS B (1 of 3 - 3-dose series) [facility] Start: 1987 Hepatitis B Vaccines (1 of 3 - 3-dose series) Hepatitis B Vaccines (1 of 3 - 3-dose series) [facility] Start: 1987 HIV screening HIV Screening [facility] Start: 1987 Yearly Adult Physical Yearly Adult P hysical [facility] PX-OGEX-Axdcyox e 200 Work Phone: NEGATED: Highlighted row has been ruled out! Planned Goals not documented PB-HFYW-Uydiqfuj 200 Work Phone: Immunizations Immunization Date Immunization Notes Care Provider Fa cility 10-25-2020 Pfizer-BioNTech COVI D-19 Vacc 30 MCG/0.3ML Intramuscular Suspension Rafaela Arguello Work Phone: [employer] [address] Work Phone: 10-04-2020 Pfizer-BioNTech COVI D-19 Vacc 30 MCG/0.3ML Intramuscular Suspension Rafaela Arguello Work Phone: [employer] [address] Work Phone: Payers Date Payer Category Payer Self-pay [id number] 2020 Unknown 1987 Unknown [id number] 2.16.84 [id number] 1987 Unknown [id number] 2.16.84 0.1.253628.3.579.2.593 1987 Unknown [id number] 2.16.84 0.1.900375.3.579.2.593 1987 Unknown [id number] 2.16.84 0.1.971171.3.579.2.593 1987 Unknown [id number] 2.16.84 0.1.004879.3.579.2.593 1987 Unknown [id number] 2.16. 840.1.811096.3.579.2.356 1987 Unknown [id number] 2.16. 840.1.378886.3.579.2.356 1987 Unknown [id number] 2.16. 840.1.404283.3.579.2.356 1987 Unknown [id number] 2.16. 840.1.353492.3.579.2.356 1987 Unknown [id number] 2.16. 840.1.124488.3.579.2.356 1987 Unknown [id number] 2.16.8 40.1.046422.3.579.2.1244 1987 Unknown [id number] .16.8 40.1.193119.3.579.2.1244 1987 Unknown [id number] 2.16.8 40.1.414898.3.579.2.1244 1987 Unknown [id number] 2.16.8 40.1.286438.3.579.2.1244 1987 Unknown [id number] 2.16.8 40.1.374011.3.579.2.1244 1987 Unknown [id number] 2.16.84 0.1.607506.3.579.2.1259 1987 Unknown [id number] 2.16.84 0.1.503414.3.579.2.1259 1987 Unknown [id number] 2.16.8 40.1.189471.3.579.2.1243 1987 Unknown [id number] 2.16.8 40.1.951955.3.579.2.1243 1959 Unknown [id number] Unknown [id number] 2.16.8 40.1.804072.3.579.2.531 Social History Date Type Detail Facility Assertion Tobacco smoking consumption unknown (finding) [id number] [id number] [facility] Work Phone: Start: 12-03-2022 End: 09-01-2023 Non-smoker Non-smoker [facility] Start: 02-19-2023 End: 09-05-2023 Tobacco smoking status NHIS Never smoked tobacco [facility] Start: 10-17-2021 End: 09-01-2023 Alcohol intake Current drinker of alcohol (finding) [facility] Start: 05-14-2010 History SDOH Alcohol Comment occasional [facility] Start: 1987 Sex Assigned At Not on file [facility] Start: 1987 Sex Assigned At Female F [facility] Start: 12-03-2022 End: 09-01-2023 Sex Assigned At [facility] Tobacco smoking stat us NHIS Tobacco smoking consumption unknown [facility] Work Phone: Start: 12-09-2022 End: 07-22-2023 Exposure to SARS-CoV-2 (event) Not sure [facility] Start: 02-19-2023 Tobacco use and exposure Smokeless tobacco non-user [facility] Work Phone: Start: 02-19-2023 End: 07-22-2023 Alcohol intake Defer [facility] Work Phone: National Score (1-100), lower number is lower risk 52 [facility] Functional Status Date Assessment Result Facility NEGATED: Highlighted row Functional performance Functional status health issues are not documented Disease HW-DIYQ-Lkqs [facility] [facility] Work Phone: Mental Status Date Assessment Result Facility NEGATED: Highlighted row Cognitive function [Interpretation] Cognitive status health issues are not documented Disease XV-NEPK-[place] [address] [facility] Work Phone: Clinical Notes 03-04-2012 to 09-01-2023 Roula Bledsoe APRN.VAULT CLERK - 09/01/2023 11:20 AM Miri Lee MD - 07/22/2023 3:15 PM Miri Lee MD - 04/27/2023 3:15 PM Elizabeth Man DO - 03/04/2023 8:40 AM EST Note Date & Type Note Facility 09-01-2023 Note HNO ID: [id number] Author: ROULA BLEDSOE APRN.VAULT CLERK Service: ? Author Type: Nurse Practitioner Type: [...] Past Histories independently gathered by the clinical ict customer support officer and the remaining scribed note accurately describes my personal service to the patient. Roula Bledsoe APRN.MARCELINA September 01, 2023 11:26 AM Medical Decision Making: Problems: Moderate: 2+ stable chronic illnesses Risk: Low: Low risk from testing/treatment Medical Decision Making Level: 3 - Low [facility] 09-01-2023 History of Present illness Narrative SKIN [...] Past Histories independently gathered by the clinical ict customer support officer and the remaining scribed note accurately describes my personal service to the patient. Roula Bledsoe APRN.MARCELINA September 01, 2023 11:26 AM Medical Decision Making: Problems: Moderate: 2+ stable chronic illnesses Risk: Low: Low risk from testing/treatment Medical Decision Making Level: 3 - Low documented in this encounter [facility] 07-22-2023 History of Present illness [...] 07/22/2023 3:01 PM documented in this encounter [facility] Work Phone: 04-27-2023 History of Present illness Narrative Michael Schroeder Janee 37 y.o. SUBJECTIVE HPI Michael is a [...] 04/27/2023 4:18 PM documented in this encounter [facility] Work Phone: 03-04-2023 History of Present [...] Karolina Man DO documented in this encounter [facility] Work Phone: 02-19-2023 History of Present illness Narrative Michael Weller 37 y.o. SUBJECTIVE HPI Michael 37-year-old young lady who was seen today for evaluation of a possible attention deficit disorder difficulty at work at home. 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 Signatures Electronically signed by : Bisi Prabhakar PT [facility]; Oct 16 2022 10:12AM EST (Author) [employer] 07-02-2022 Evaluation note Encounter Date Diagnosis Assessment Notes Jun, Right foot pain (ICD-10 - M79.671) Rest, ice your foot for 15 minutes [...] no improvement of pain. Given return precautions. [employer] Other 12-05-2022 Chief complaint Narrative - Reported* [...] virtual visit to discuss anxiety follow up [facility] 200 Work Phone: 1(622) 712-388408-11-2022 History of Present illness Narrative* Roula Bledsoe, COMMERCIAL REAL ESTATE ASSISTANT.VAULT CLERK - 10/17/2021 12:40 PM EDT SKIN EXAM [...] Past Histories independently gathered by the clinical ict customer support officer and the remaining scribed note accurately describes my personal service to the patient. Roula Bledsoe APRN.CNP October 17, 2021 1:05 PM I spent a total of 15 minutes on the date of the service which included preparing to see the patient, mngi-rr-grmt patient care, completing clinical documentation, performing a medically appropriate examination, and counseling and educating the patient/family/caregiver. [facility] History of Present illness Narrative* [...] breast biopsy: right breast biopsy 2018 at [facility]- fibroepithelial lesion consistent with fibroadenoma * - breast surgery: no * - breast cancer:no * Menarche: 15 * AFLB: 20 * Menopause: no * HRT:no * Family history: both grandfathers with lung cancer * no history of breast or ovarian cancer [facility] Work Phone: 1(162) 340-822208-08-2022 History of Present illness Narrative* MICHAEL WELLER [...] breast biopsy: right breast biopsy 2018 at [facility]- fibroepithelial lesion consistent with fibroadenoma * - breast surgery: no * - breast cancer:no * Menarche: 15 * AFLB: 20 * Menopause: no * HRT:no * Family history: both grandfathers with lung cancer * no history of breast or ovarian cancer [facility] Work Phone: 1(998) 979-302208-02-2022 Chief complaint Narrative - Reported* An interactive [...] visit to discuss insomnia, trazodone not helping [id number]-[id number] 200 Work Phone: 1(367) 327-563008-02-2022 Chief complaint Narrative - Reported* An interactive audio and video telecommunication system which permits real time communications between the patient (at the originating site) and provider (at the distant site) was utilized to providethis telehealth service. * Verbal consent was requested and obtained from MICHAEL WELLER on this date, 10/08/2021 11:40 AM , for a telehealth visit. * virtual visit to discuss insomnia, dimitrisroberte not [facility] Work Phone: [phone]) 197-124305-06-2022 [place], [place] NAME: MICHAEL WELLER DATE OF : MEDICAL REC#: [id number] EXHIBITION ORGANISER: 1602 [facility], TRANSADMIT DATE: 07/12/2021 09:46:00 BARBER INSTRUCTOR DATE: 07/13/2021 21:00 DICTATING PHYSICIAN: MATT STAPLETON DICTATION DATE: 07/12/2021 12:00 OPERATIVE NOTE OPERATION DATE: 07/12/2021 PROCEDURE: Diagnostic laparoscopy. PREOPERATIVE DIAGNOSIS: Dyspareunia. POSTOPERATIVE DIAGNOSIS: Dyspareunia. ANESTHESIA: General. SURGEON: Matt Stapleton D.O. RETAIL INTERIOR DESIGNER: CLIFF Durán URINE OUTPUT: Yellow and clear. [...] was made. The fascia was tented using Edanna clamps and the fascia was entered sharply. [...] Stapleton DO on 07/15/2021 03:07 PM EDT [facility] Signed and Approved by: DR MATT STAPLETON . 07/15/2021 15:07:00[facility]12-27-2012 History general Narrative - Reported* Type Description Date Medical History 03-04-12 Pathology [place] [facility] [place] History left hip surgery Surgical History tonsillectomy and adenoidectomy Surgical History cholecystectomy Surgical History wisdom teeth Surgical History tumor The [employer] Other Evaluation note* Diagnosis Lentigines- Primary Other dyschromia Multiple benign nevi Benign neoplasm of skin, site unspecified Becerril angioma Nevus, non-neoplastic Exposure to tanning bed, sequela Hx of malignant melanoma Personal history of malignant melanoma of skin Dermatofibroma Benign neoplasm of skin, site unspecified [facility] Work Phone: Evaluation note* Diagnosis Abnormal mammogram Abnormal mammogram, unspecified documented in this encounter [facility] Work Phone: Evaluation note* Diagnosis Lump in female breast Lump or mass in breast documented in this encounter [facility] Work Phone: Evaluation note* Diagnosis Encephalopathy- Primary Unspecified encephalopathy Anxiety Anxiety state, unspecified Attention deficit hyperactivity disorder (ADHD), predominantly inattentive type documented in this encounter [facility] Work Phone: Evaluation note* Diagnosis Anxiety Anxiety state, unspecified documented in this encounter [facility] Work Phone: Evaluation note* Diagnosis Encephalopathy- Primary Unspecified encephalopathy Attention deficit hyperactivity disorder (ADHD), 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, unspecified Anxiety Anxiety state, unspecified documented in this encounter [facility] Work Phone: Evaluation note* Diagnosis Dermatofibroma- Primary Benign neoplasm of skin, site unspecified Lentigines Other dyschromia Multiple benign nevi Benign neoplasm of skin, site unspecified Becerril angioma Nevus, non-neoplastic Hx of malignant melanoma Personal history of malignant melanoma of skin [facility] encounter [facility] Diagnosis Onset Date Resolution Status UTI (urinary tract infection) [facility] Work Phone: History of Present illness Narrative* [...] area gets bumped. 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 [...] for walks, read books. No regular exercise. [id number] 200 Work Phone: History of Present illness [...] area gets bumped. 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 [...] for walks, read books. No regular exercise. [facility] Work Phone: History of Present illness [...] reviewed and current. * Breast cancer screening:. 2020. * Metabolic screening: lipid profile performed within [...] area gets bumped. 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 [...] for walks, read books. No regular exercise. [id number] 200 Work Phone: History of Present illness [...] discharge from lumps. 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 [...] past, but this made her sleep worse. IF-IQQI-Xiakatet 200 Work Phone: History of Present illness [...] reviewed and current. * Breast cancer screening:. 2020. * Metabolic screening: lipid profile performed within [...] discharge from lumps. 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 [...] past, but this made her sleep worse. [facility] Work Phone: History of Present illness Narrative* Patient presents to clinic with complaints of pain during sex and mild Ricardo. Her assessment was significant for mild strength deficits and decreased movement of her pelvic floor. Patient will benefit from skilled PT to address these impairments. * Clinical Presentation: Stable and/or uncomplicated characteristics. * Level of Complexity: low [facility] Work Phone: History of Present [...] urology for painful intercourse. Planning physical therapy. XC-LULL-Vmcqllih 200 Work Phone: History of Present illness [...] urology for painful intercourse. Planning physical therapy. [facility] Work Phone: History of Present illness [...] been able to have these done yet. KG-ECOA-Eydwesep 200 Work Phone: Instructions* Name Dates Details Instructions not documented [id number]-Hjmhblds Work Phone: Family History No Family History [...] Date/ Time Advance Directives No October 09 2:01pm Chief Complaint and Reason for Visit Chief Complaint Health Screening Chief Complaint foot pain Chief Complaint possible uti Reason for Visit UTI (urinary tract i nfection) Reason for Referral Specialty Diagnoses / Procedures Referred By Kezia gooden Referred To Contact Radiology Diagnoses Lump in female breast Procedures [place] [id number] [facility] [address] [place] [address] Referral ID Status Reason Start Date Expiration Date Visits Requested Visits Authorized [id number] Pending Review Perform Procedure 3 06/17/2023 1 1 Additional Source Comments INFORMATION SOURCE (unrecogn ized section and content) DATE CREATED AUTHOR 07/19/2021 [facility] DATE CREATED AUTHOR AUTHOR'S ORGANIZ ATION 10/16/2021 [facility] DATE CREATED AUTHOR AUTHOR'S ORGANIZ ATION 03/02/2022 [facility] DATE CREATED AUTHOR AUTHOR'S ORGANIZ ATION 10/17/2022 [facility] DATE CREATED AUTHOR AUTHOR'S ORGANIZ ATION 12/11/2022 [facility] DATE CREATED AUTHOR AUTHOR'S ORGANIZ ATION 07/25/2023 [facility] DATE CREATED AUTHOR AUTHOR'S ORGANIZ ATION 09/03/[address] [facility] DATE CREATED AUTHOR AUTHOR'S ORGANIZ ATION 09/07/2023 [facility] DATE CREATED AUTHOR AUTHOR'S ORGANIZ ATION 10/21/2023 [facility] EPIC DATE CREATED AUTHOR AUTHOR'S ORGANIZ ATION 11/14/2023 [facility] Reason for Visit (unrecogniz ed section and content) Reason Comments Full Body Skin Check Specialty Diagnoses / Procedures Referred By Contac t Referred To Contact Radiology Diagnoses Abnormal mammogram Procedures BI mammo bilateral diagnostic tomosynthesis BI [place] [id number] [facility] [address] [place] [address] Referral ID Status Reason Start Date Expiration Date Visits Requested Visits Authorized [id number] Pending Review Perform Procedure 12/03/2022 06/01/2023 1 1 Specialty Diagnoses / Procedures Referred By Contac t Referred To Contact Radiology Diagnoses Lump in female breast Procedures BI [place] [id number] [facility] [address] [place] [address] Referral ID Status Reason Start Date Expiration Date Visits Requested Visits Authorized [id number] Pending Review Perform Procedure 3 06/17/2023 1 1 Reason Comments New Patient Visit NPV- ADHD Specialty Diagnoses / Procedures Referred By Contac t Referred To Contact Neurology Diagnoses Anxiety Procedures MA OFFICE/OUTPATIENT NEW HIGH MDM 60-74 [place] [id number] [facility] [address] [place] [address] Jhonny Lee MD [address] [facility] [place] [address] [place] [address] Referral ID Status Reason Start Date Expiration Date Visits Requested Visits Authorized [id number] Pending Review Specialty Services Required 12/03/2022 06/01/2023 [...] or prosecute any alcohol or drug abuse patient.[facility] CenterIn the event this information is protected by the Federal Confidentiality of Alcohol and Drug Abuse Patient Records regulations: The Federal rules restrict any use of the information to criminally investigate or prosecute any alcohol or drug abuse patient.[facility] Care Teams (unrecognized sec tion and content) Employment Educational Coord Relationship Specialty Start Date End Date Danielle Infante [address] [facility] [address] [place] [address] PCP - General Family Practice 06/10/16 Team Status: Inactive Member Role Status Dates Danielle Infante , Primary Care Provider Active Kp Alvares DO [facility] Attending Provider Active Team Status: Active Member Role Status Dates Danielle Infante DO Primary Care Provider Active Team Status: Inactive Member Role Status Dates Danielle Infante , Primary Care Provider Active Bolivar Sherman , ADVERTISING COORDINATOR-C Attending Provider Activ e Employment Educational Coord Relationship Specialty [place] [id number] [facility] [address] [place] [address] PCP - General Family Medicine 10/29/22 Employment Educational Coord Relationship Specialty [place] [id number] [facility] [address] [place] [address] PCP - General Family Medicine 10/29/22 Employment Educational Coord Relationship Specialty [place] [id number] [facility] [address] [place] [address] PCP - General Family Medicine 10/29/22 Employment Educational Coord Relationship Specialty [place] [id number] [facility] [address] [place] [address] PCP - General Family Medicine 10/29/22 Jhonny Lee MD [address] [facility], [facility] [address] [place] [address] Consulting Physician Neurology 02/19/23 Employment Educational Coord Relationship Specialty [place] [address] [facility] [address] [place] [address] PCP - General Family Medicine 10/29/22 Jhonny Lee MD [address] [facility], [facility] [address] [place] [address] Consulting Physician Neurology 02/19/23 Employment Educational Coord Relationship Specialty Start [place] [id number] [facility] [address] [place] [address] PCP - General Family Medicine 10/29/22 [place] [id number] [facility] [address] [place] [address] PCP - MMO ACO PCP 03/09/23 Jhonny Lee MD [address] [facility], [address] [address] Consulting Physician Neurology 02/19/23 Employment Educational Coord Relationship Specialty Start Date End Date Danielle Infante DO [address] [facility] [address] [place] [address] PCP - General Family Medicine 06/10/16 Team Status: Inactive Member Role Status Dates Danielle Infante DO Primary Care Provider Active Start: September 05, 2023 End: September 05, 2023 Swetha M Nathaly , COMMERCIAL REAL ESTATE ASSISTANT Attending Provider Active S tart: September 05, 2023 End: September 05, 2023 Team Status: Inactive Member Role Status Dates Swetha Avila Nathaly , COMMERCIAL REAL ESTATE ASSISTANT Attending Provider Active S tart: September 05, [...] BE BASED ON THE PRIMARY CLINICAL RECORDS. [facility]. provides no warranty or guarantee of the accuracy or completeness of information in this document.
== END 2023-11-21 08:12 | disposition home or self-care (01) ==
LOC: US 08:11
PROVIDERS: Visit Provider Obstetrics & Gynecology
DX: N92.6 Irregular menstruation, unspecified (principal)
CPT/HCPCS: 76830; 76856

== ENCOUNTER 2024-01-26 16:14 | Outpatient (RCR) | payer OTHER, MEDICAID, SELFPAY ==
[2024-01-26 18:29] LABS: HCG Quantitative 5650 mIU/mL
[2024-01-28 17:11] LABS: HCG Quantitative 10499 mIU/mL
== END 2024-03-08 23:59 | disposition home or self-care (01) ==
LOC: LAB 16:14
PROVIDERS: Visit Provider Obstetrics & Gynecology
DX: Z34.91 Encounter for supervision of normal pregnancy, unspecified, first trimester (principal); N92.6 Irregular menstruation, unspecified
CPT/HCPCS: 36415; 84702

== ENCOUNTER 2024-01-29 16:01 | Outpatient (OUT) | payer OTHER, SELFPAY ==
--- NOTE | 2024-01-29 16:03 | US_ITS ---
[address] [address] Patient Name: MICHAEL ROQUE MRN: [id number] date: 1985 Sex: F Assigned Patient Location: US Current Patient Location: Accession/Order Number: [id number] Exam Date: 01/29/2024 16:10 Report Date: 01/30/2024 07:28 At the request of: NEISHA PETERSON Procedure: US OB transvaginal EXAMINATION: US OB transvaginal HISTORY: Missed Menses N92.6, History of miscarriage Z87.59 COMPARISON: No relevant comparison available. FINDINGS: GESTATIONAL SAC: Present YOLK SAC: Present POLE: Absent CARDIAC: Absent UTERUS: Normal size and appearance. OVARIES: Right: Slightly hypoechoic 1.3 cm area which may represent a corpus lutein cyst or complex cyst. Left: 0.9 cm cystic fluid collection adjacent to the left ovary, likely an incidental exophytic cyst. CERVIX: 3.6 cm in length and closed. CUL-DE-SAC: Normal. OTHER: None. AGE BY LMP: 6 weeks 0 days AMALIA BY LMP: 09/23/2024 AGE BY US SAC SIZE: 5 weeks 2 days AMALIA BY US SAC SIZE: 09/28/2024 US/US OB transvaginal IMPRESSION: 1. Very early intrauterine with no visible pole this time. Follow-up recommended. Electronically authenticated by: NOEMI LOU Date: 01/30/2024 07:28
--- OUTSIDE RECORDS SUMMARY | 2024-01-29 16:11 | XMS_ITS | CCD ---
Author Organization [facility] Care Team Providers Care Sales Representative [employer]ing Supplies Name Role Phone Rafaela Arguello Un[place] [id number], [facility] Unavailable Unavailable Rafaela Arguello Unavailable Unavailable Zackary Gomez Unavailable Unavailable Rafaela Arguello Unavailable Unavailable Rafaela Arguello Unavailable Unavailable Zackary Gomez Unavailable Unavailable Rafaela Arguello Unavailable Unavailable Unavailable DAYA, DR DRIVER Admitting Unavailable DAYA, DR DRIVER Primary Care Unavailable DAYA, DR DRIVER Attending Unavailable DAYA, DR DRIVER Consulting Unavailable NardiniNoemi Consulting Unavailable DAYA, DR DRIVER Admitting Unavailable DAYA, DR DRIVER Attending Unavailable DAYA, DR DRIVER Consulting Unavailable REQUEST, DR NONE LISTED Primary Care Unavaila ble DAYA, DR DRIVER Primary Care Unavailable DAYA, DR DRIVER Admitting Unavailable DAYA, DR DRIVER Attending Unavailable DAYA, DR DRIVER Consulting Unavailable REQUEST, DR SHASHANK LISTED Primary Care Unavaila ble DAYA, DR DRIVER Admitting Unavailable DAYA, DR DRIVER Attending Unavailable DAYA, DR DRIVER Consulting Unavailable AGUBOSIM, ARYA Consulting Unavailable BEL BRICENO Consulting Unavailable GRAZYNA MEZA Consulting Unavailable DAYA, DR DRIVER Admitting Unavailable DAYA, DR DRIVER Attending Unavailable DAYA, DR DRIVER Consulting Unavailable DAYA, DR DRIVER Primary Care Unavailable Danielle Infante Primary Care Provider DO Danielle Infante Primary Care Provider DO Kp Alvares Attending Provider Hema, Ms. Rafaela Schultz Referring Aisha Arguello, Ms. Rafaela Schultz Primary Care Unavai labtaryn Arguello, Ms. Rafaela Schultz Attending Unavai labtaryn Arguello, MsJonathan Schultz Primary Care Unavai lable Hema, MsJonathan Schultz Attending Unavai lable Hema, Ms. Rafaela Schultz Referring Unavai lable Arguello, MsJonathan Schultz Referring Unavai lable Arguello, Ms. Rafaela Schultz Primary Care Unavai labtaryn Arguello, Ms. Rafaela Schultz Attending Yohanavai kaye Arguello, MsJonathan Schultz Referring Unavai labtaryn Arguello, Ms. Rafaela Schultz Primary Care Unavaliliana Aguilar, Luz Coombs Attending Unavailable Hema, MsJonathan Schultz Primary Care Aisha Aguilar, Luzcipriano Coombs Attending Unavailable Lauren, Luz Coombs Referring Unavailable Bolivar Sherman Unavailable DO Danielle Infante Primary Care Provider [phone] SCOTT Sherman Attending Provider Karolina Man DO Primary Care Provider [phone] Jhonny Lee MD Unavailable Donovan SORIA, Karolina Cota Unavailable KAROLINA MAN Attending Unavailable KAROLINA MAN [...] INFANTE Primary Care LAYNE Reyes Attending Provider [phone] NO FAMILY, PHYSICIAN Primary Care Unavailable Swetha Andersen Attending Unavailable Swetha Andersen Admitting Unavailable MATT STAPLETON Attending Unavailable MATT STAPLETON Attending Unavailable KAROLINA MAN Referring Unavailable KAROLINA MAN Primary Care Unavailable KAROLINA MAN Referring Unavailable KAROLINA MAN Primary Care Unavailable MARYANN LEAL Attending Unava ilable Danielle Infante DO Primary Care Provider Allergies Allergy Classification Reported Allergen(s) Allergy Type Date of Onset Reaction(s) Facility Cephalosporins (antibiotic) (1 source) loracarbef Drug Allergy [facility] Work Phone: Latex (1 source) natural latex rubber Substance Allergy [facility] Work Phone: NSAIDs (1 source) NSAIDs Drug Allergy [facility] Work Phone: (20 sources) loracarbef; Translations: [loracarbef] Drug Allergy 08-29-19 23 Unknown [id number] Work Phone: (20 sources) natural latex rubber; Translations: [LATEX] Allergy to substance (finding) 08-29-19 [place] [address] Repository (20 sources) NSAIDs; Translations: [NSAIDs] Allergy to drug (finding) Unknown [id number] Work Phone: (20 sources) Animal dander - Cats Allergy to substance (finding) [id number] [facility] Work Phone: (2 sources) Latex Drug allergy (disorder) [facility] Repository (1 source) loracarbef Drug Allergy [facility] Repository (5 sources) NSAIDs; Translations: [NSAIDS (NON-STEROIDAL ANTI-INFLAMMATOR Y DRUG)] Drug allergy (disorder) 06-11-19 17 [facility] Repository (7 sources) Non-steroidal anti-inflammator y agent Propensity to adverse reactions to drug 06-11-19 Other: See Comments, Other [facility] (8 sources) Latex Propensity to adverse reactions 08-29-19 Unknown, Rash [employer] Other (10 sources) Cat Dander; Translations: [CAT DANDER] Allergy to substance 11-29-19 23 Unknown, Itching [facility] (3 sources) NSAIDS (Non-Steroidal Anti-Inflamma; Translations: [NSAIDS (Non-Steroidal Anti-Inflamma] Allergy to substance 09-05-19 Itching [facility] (1 source) Latex Drug allergy (disorder) 09-05-19 [facility] Repository (3 sources) CAT HAIR STANDARDIZED ALLERGENIC EXTRACT; Translations: [CAT HAIR STANDARDIZED ALLERGENIC EXTRACT] Propensity to adverse reactions to drug (disorder) 11-29-19 Itching [facility] Repository (1 source) Latex Allergy to substance 08-29-19 Rash [facility] (1 source) Non-steroidal anti-inflammator y agent Drug Allergy 06-11-19 Other, Unknown, Itching [facility] (1 source) Cat Hair Extract Allergy to substance 11-29-19 Itching [facility] Medications Current Medications Medication Drug Class(es) Dates Sig (Normalized) Sig (Original) buPROPion (20 sources) Aminoketone Start: 09-05-2023 Bupropion Hcl Active MG PO September 05, 2023 12:00am Start: 06-27-2022 take 1 tablet by didi th every twenty-four hours in the morning buPROPion XL (Wellbutrin XL) 300 MG 24 hr tablet Take 300 mg by mouth in the morning. 06/27/2022 Active Start: 10-08-2021 End: 08-31-2023 take 1 tablet by mouth once daily in the morning buPROPion XL (Wellbutrin XL) 150 mg 24 hr tablet Indications: Anxiety Take 1 tablet (150 mg) by mouth once daily in the morning. Do not crush, chew, or split. 90 tablet 3 03/04/2023 Active Start: 10-08-2021 take 1 tablet by mouth once da torres buPROPion HCl ER (XL) 300 MG Oral Tablet Extended Release 24 Hour TAKE 1 TABLET BY MOUTH EVERY DAY Quantity: 90 Refills: 2 Ordered: 17-Mar-2022 Rafaela Mejía Start : 08-Oct-2021 Active take 1 tablet by mouth twice melissa ly Wellbutrin 100 MG 1 tablet Orally Twice a day Active cephalexin 500 mg oral capsule (3 sources) Cephalosporin Antibacterial Start: 09-05-2023 take 1 capsule by mouth every twelve hours cephalexin (Keflex) 500 mg capsule Take 1 capsule (500 mg) by mouth every 12 hours. 09/05/2023 Active Start: 09-05-2023 take 500 mg by mouth twice daily Cephalexin Active 500 MG PO Twice daily 14 7 September 05, 2023 12:00am cholecalciferol 0.05 mg oral capsule (7 sources) Vitamin D take 1 capsule by mouth in the morning cholecalciferol (Vitamin D-3) 50 mcg (2,000 unit) capsule Take 1 capsule (50 mcg) by mouth early in the morning.. Active ciprofloxacin 500 mg oral tablet (1 source) Quinolone Antimicrobial Start: 2023 take 1 tablet by mouth at bedtime ciprofloxacin (Cipro) 500 mg tablet TAKE 1 TABLET (500 MG) BY MOUTH IN THE MORNING AND BEFORE BEDTIME FOR 7 DAYS 11/11/2023 Active dexmethylphenidate hydrochloride 5 mg oral tablet (20 sources) Central Nervous System Stimulant Start: 2023 Dexmethylphenidate Active MG PO September 05, 2023 12:00am Start: 02-19-2023 End: 10-20-2023 take 1 capsule by mouth once daily dexmethylphenidate XR (Focalin XR) 10 mg 24 hr capsule Indications: Attention deficit hyperactivity disorder (ADHD), predominantly inattentive type Take 1 capsule (10 mg) by mouth once daily. Do not crush, chew, or split. Do not fill before September 20, 2023. 30 capsule 09/20/2023 Active Start: 02-19-2023 End: 10-20-2023 take 1 tablet by mouth twice daily in the evening dexmethylphenidate (Focalin) 5 mg tablet Indications: Attention deficit hyperactivity disorder (ADHD), predominantly inattentive type Take 1 tablet (5 mg) by mouth 2 times a day. At 3 pm and 6 pm as needed. Do not fill before September 20, 2023. 60 tablet 09/20/2023 Active drospirenone / Ethinyl Estradiol / levomefolate (4 sources) Progestin, Estrogen Start: 07-18-2010 End: 03-04-2023 take 1 tablet by mouth once daily drospirenone-e.estradioL-lm.FA (Lalitha Roberts) 3-0.02-0.451 mg (24) (4) Take 1 tablet by mouth once daily. 0 07/18/2010 03/04/2023 Discontinued (Med List Cleanup) Start: 07-18-2010 take 1 tablet by didi once daily drospirenone-e.estradioL-lm.FA (Armando, Lalitha) 3-0.02-0.451 mg (24) (4) Take 1 tablet [...] Active Comment on above: Take by mouth. nitrofurantoin, macrocrystals 25 mg / nitrofurantoin, monohydrate 75 mg oral capsule (2 sources) Nitrofuran Antibacterial Start: 01-20-20 End: 01-27-20 take 1 capsule by mouth in the morning nitrofurantoin, macrocrystal-monohy drate, (Macrobid) 100 MG capsule Indications: Urinary tract infection without hematuria, site unspecified Take 1 capsule (100 mg) by mouth in the morning and 1 capsule (100 mg) before bedtime. Do all this for 7 days. 14 capsule 01/20/2024 01/27/2024 Active Start: 01-05-2024 End: 01-12-2024 take 1 capsule by mouth twice daily nitrofurantoin, macrocrystal-monohydrate , (Macrobid) 100 mg capsule Indications: Acute lower UTI Take 1 capsule (100 mg) by mouth 2 times a day for 7 days. 14 capsule 01/05/2024 01/12/2024 Active predniSONE 20 mg oral tablet (1 source) Start: 07-02-2022 take 1 tablet by mouth every twelve hours predniSONE 20 MG 1 tablet Orally twice a day for 7 Jun, Active Progesterone 200 MG suppository (1 source) Start: 01-26-2024 End: 02-25-2024 Progesterone 200 MG suppository Indications: History of miscarriage Insert 200 mg into the vagina at bedtime Insert suppository vaginally every night at bedtime until 12 weeks gestation 30 suppository 3 01/26/2024 02/25/2024 Active traZODone hydrochloride 50 mg oral tablet (20 sources) Serotonin Reuptake Inhibitor Start: 06-04-2021 End: 07-22-2023 traZODone (Desyrel) 50 MG tablet Take 50 mg by mouth as needed at bedtime. 06/27/2022 Active Comment on above: Take 50 mg [...] 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 Chronic Esophageal disorders (7 sources) Gastroesophageal reflux disease; Translations: [Gastro-esophageal reflux disease without esophagitis] Onset: 08-28-2022 02-10-2023 Chronic Genitourinary symptoms and ill-defined conditions (20 sources) Increased frequency of urination; Translations: [Urinary frequency] Onset: 09-06-2021 11-28-2022 Episodic Miscellaneous mental health disorders (1 source) Globus sensation; Translations: [Other somatoform disorders] Chronic Nutritional deficiencies (20 sources) Vitamin D deficiency; Translations: [Unspecified vitamin D deficiency] Onset: 11-28-2022 11-28-2022 Chronic Other and unspecified benign neoplasm (7 sources) Fibroadenoma of breast; Translations: [Benign neoplasm of breast] Episodic Other and unspecified benign neoplasm (2 [...] melanin hyperpigmentation] Episodic Other upper respiratory disease (6 sources) Chronic nasopharyngitis; Translations: [Chronic nasopharyngitis] Onset: [...] pain; Translations: [Cervicalgia] Episodic Urinary tract infections (6 sources) Urinary tract infectious disease; Translations: [Urinary tract infection, site not specified] Onset: 01-05-2024 09-05-2023 Episodic Past or Other Problems Problem Classification Problem Date Documented Da te Episodic/Chronic Abdominal pain (20 sources) Pain in female pelvis; Translations: [Unspecified symptom associated with female genital organs] Onset: 06-21-2021 Episodic Acute bronchitis (20 sources) Acute bronchitis; Translations: [Acute bronchitis] Onset: 11-28-2022 11-28-2022 Episodic Diseases of mouth; excluding dental (6 sources) Sialoadenitis; Translations: [Sialoadenitis, unspecified] Onset: 08-28-2022 02-10-2023 Episodic E Codes: Other specified and classifiable (8 sources) Exposure to tanning bed, sequela; Translations: [Late effects of other accidents] Onset: 09-15-2019 Episodic Melanomas of skin (14 sources) H/O Malignant melanoma; Translations: [Personal history of malignant melanoma of skin] Onset: 09-15-2019 Episodic Neoplasms of unspecified nature or uncertain behavior (20 sources) 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; Translations: [Neoplasm of uncertain behavior of lip, oral cavity, and pharynx] Onset: 11-28-2022 11-28-2022 Episodic Nonmalignant breast conditions (20 sources) Breast lump; Translations: [Lump or mass in breast] Onset: 11-28-2022 11-28-2022 Episodic Other and unspecified benign neoplasm (9 sources) Multiple benign melanocytic nevi ; Translations: [Melanocytic nevi, unspecified] Onset: 09-15-2019 Episodic Other and unspecified benign neoplasm (7 sources) Skin lesion; Translations: [Hemangioma of skin and subcutaneous tissue] Onset: 09-15-2019 09-15-2019 Episodic Other and unspecified benign neoplasm (7 sources) Fibroadenoma of right breast; Translations: [Benign neoplasm of right breast] Onset: 11-28-2022 11-28-2022 Episodic Other connective tissue disease (18 sources) Pelvic floor dysfunction; Translations: [Pelvic muscle [...] Onset: 11-28-2022 11-28-2022 Episodic Other skin disorders (15 sources) Localized swelling, mass and lump, right upper limb; Translations: [Mass of right axilla] Onset: 11-28-2022 11-28-2022 Episodic Other skin disorders (7 sources) Solar lentigo; Translations: [Other melanin hyperpigmentation] Onset: 09-15-2019 09-15-2019 Episodic Other skin disorders (7 sources) Skin tag; Translations: [Other hypertrophic disorders of the skin] Onset: 09-15-2019 09-15-2019 Episodic Other skin disorders (4 sources) Lesion of face; Translations: [Facial lesion] Residual codes; unclassified (20 sources) Insomnia; Translations: [Insomnia, unspecified] Onset: 11-28-2022 11-28-2022 Episodic Skin and subcutaneous tissue infections (20 sources) Cellulitis; Translations: [Cellulitis and abscess of unspecified sites] Onset: 11-28-2022 11-28-2022 Episodic Unclassified (7 sources) Onset: 12-03-2022 Resolved: 01-05-2024 12-03-2022 NEGATED: Highlighted row has not occurred!Residual codes; unclassified (20 sources) Disease Episodic Results Test Name Value Interpretation Reference Range Facility [facility] PREG QUANT HCGon 024 HCG QUANTITATIVE 5650 mIU/mL [facility] Comment on above: 5-50 0.2-1 WEEK 50-500 1-2 WEEKS 100-5,000 2-3 WEEKS 500-10,000 3-4 WEEKS 1,000-50,000 4-5 WEEKS 10,000-100,000 5-6 WEEKS 15,000-200,000 6-8 WEEKS 10,000-100,000 2-3 MONTHS [facility] HCG ( test) Ql (U)o n 01-05-2024 Interpretation and review of laboratory results [facility] Work Phone: Preg Test, Ur Negative Negative [facility] Work Phone: [facility] Work Phone: POCT UA Automated manually r esultedon 01-05-2024 Appearance (U) Cloudy Abnormal Clear [facility] Work Phone: Glucose Test strip (U) [Mass/Vol] Negative NEGATIVE mg/dl [facility] Work Phone: Hemoglobin Ql (U) Negative NEGATIVE [facility] Work Phone: Interpretation and review of laboratory results Abnormal [facility] Work Phone: Leukocyte esterase Test strip Ql (U) SMALL (1+) Abnormal NEGATIVE [facility] Work Phone: Nitrite Ql (U) Positive Abnormal NEGATIVE [facility] Work Phone: pH (U) 7.5 [pH] No Reference Range Established [facility] Work Phone: POC Bilirubin, Urine Negative NEGATIVE Univ [facility] Work Phone: POC Color, Urine Yellow Straw, [place] ow, Light-Yellow [facility] Work Phone: POC Ketones, Urine Negative NEGATIVE mg/dl [facility] Work [facility]: POC Protein, Urine Negative NEGATIVE, 30 (1+) mg/dl [facility] Work Phone: POC Specific [place], Urine 1.010 1.005 - 1.035 [facility] Work Phone: POC Urobilinogen, Urine 0.2 0.2, 1.0 EU/DL [facility] Work Phone: [facility] Work Phone: Urine Cultureon 09-05-2023 Bacteria identified Cx Nom (U) <9,000 colonies/ml mixed bacterial skin contaminants 2 Days PERFORMED BY: [place] [id number] PATHOLOGIST DIRECTOR REGULATORY AGENCY DAVID CHILD M.D. Normal [facility] Comment on above: Performed By: #### C UU #### [place] [id number] [facility] CNOVon 09-01-2023 CNOV Office Visit (AMDERM ) MICHAEL WELLER ([id number]) 1985 F Date Time Provider Department 09/01/23 [...] Past Histories independently gathered by the clinical production support supervisor and the remaining scribed note accurately describes [...] Date Reviewed: 09/01/2023 Reviewed by: Roula Bledsoe APRN.TECHNOLOGY DIRECTOR - Fully Assessed Reason for Visit: Full [...] - dexmethylphenidate (more content not included)... Normal [facility] Drugs of abuse screen W Refl ex confirm panel (U)on 02-19-2023 Amphetamines Screen Ql (U) Negative Normal Presumptive Negative [facility] Comment on above: Order Comment: Drug [...] By: #### 8 7428-9 #### ALEJANDRO RAMOS ([id number]) [facility] ([facility]) [address] [place] [address] Barbiturates Screen Ql (U) Negative Normal Presumptive Negative [facility] Comment on above: Order Comment: Drug [...] By: #### 8 7428-9 #### ALEJANDRO RAMOS ([id number]) [facility] ([facility]) [address] [place] [address] Benzodiazepines Ql (U) Negative Normal Presumptive Negative [facility] Comment on above: Order Comment: Drug [...] Performed By: #### 8 7428-9 #### ALEJANDRO [facility] ([id number]) [facility] ([facility]) [address] [place] [address] Benzoylecgonine Screen Ql (U) Negative Normal Presumptive Negative [facility] Comment on above: Order Comment: Drug [...] By: #### 8 7428-9 #### ALEJANDRO SUERO [facility] ([id number]) [facility] ([facility]) [address] [place] [address] Cannabinoids Screen Ql (U) Negative Normal Presumptive Negative [facility] Comment on above: Order Comment: Drug [...] Performed By: #### 8 7428-9 #### ALEJANDRO [facility] ([id number]) [facility] ([facility]) [address] [place] [address] fentaNYL+Norfentanyl Screen Ql (U) Negative Normal Presumptive Negative [facility] Comment on above: Order Comment: Drug [...] Performed By: #### 8 7428-9 #### ALEJANDRO [facility] ([id number]) [facility] ([facility]) [address] [place] [address] Opiates Screen Ql (U) Negative Normal Presum ptive Negative [facility] Comment on above: Order Comment: Drug [...] By: #### 8 7428-9 #### ALEJANDRO SUERO [facility] ([id number]) [facility] ([facility]) [address] [place] [address] oxyCODONE+oxyMORphone Screen Ql (U) Negative Normal Presumptive Negative [facility] Comment on above: Order Comment: Drug [...] By: #### 8 7428-9 #### ALEJANDRO SUERO [facility] ([id number]) [facility] ([facility]) [address] [place] [address] Phencyclidine Ql (U) Negative Normal Presump tive Negative [facility] Comment on above: Order Comment: Drug [...] dextromethorphan. Performed By: #### 8 7428-9 #### OCTAVIANOMERLINE RAMOS ([id number]) [facility] ([facility]) [address] [place] [address] BI MAMMO BILATERAL DIAGNOSTI C TOMOSYNTHESISon 12-19-2022 BI MAMMO BILATERAL DIAGNOSTIC TOMOSYNTHESIS Interpreted By: Mohan Romano, Jenn Wei STUDY: BI MAMMO BILATERAL DIAGNOSTIC TOMOSYNTHESIS; BI US BREAST LIMITED LEFT; 12/19/2022 9:42 am; 12/19/2022 10:52 am ACCESSION NUMBER(S): [id number]; [id number] ORDERING CLINICIAN: KAROLINA MAN INDICATION: Annual screening [...] axillary abnormality was performed by a registered wood heel cementer. No sonographic abnormalities are seen in the [...] any future breast imaging appointments, please call [phone] ([phone]). MACRO: None Signed by: Mohan Romano 12/19/2022 11:32 AM Dictation workstation: [id number] [facility] BI US BREAST LIMITED LEFTon 12-19-2022 BI US BREAST LIMITED LEFT Interpreted By: Mohan Romano, and Jakob Wei STUDY: BI MAMMO BILATERAL DIAGNOSTIC TOMOSYNTHESIS; BI US BREAST LIMITED LEFT; 12/19/2022 9:42 am; 12/19/2022 10:52 am ACCESSION NUMBER(S): [id number]; [id number] ORDERING CLINICIAN: KAROLINA MAN INDICATION: Annual screening [...] axillary abnormality was performed by a registered wood heel cementer. No sonographic abnormalities are seen in the [...] any future breast imaging appointments, please call [phone] ([phone]). MACRO: None Signed by: Mohan Romano 12/19/2022 11:32 AM Dictation workstation: [id number] [facility] DBT Breast - bilateral diagn osticon 12-19-2022 Radiology Study observation (narrative) [facility] Work Phone: No Panel Informationon 12-19 1. [...] any future breast imaging appointments, please call [phone] ([phone]). MACRO: None Signed by: Mohan Romano 12/19/2022 11:32 AM Dictation workstation: [id number] [facility]AL Interpreted By: Mohan Romano, and Jakob Wei STUDY: BI MAMMO BILATERAL DIAGNOSTIC TOMOSYNTHESIS; BI US BREAST LIMITED LEFT; 12/19/2022 9:42 am; 12/19/2022 10:52 am ACCESSION NUMBER(S): [id number]; [id number] ORDERING CLINICIAN: KAROLINA MAN INDICATION: Annual screening [...] axillary abnormality was performed by a registered wood heel cementer. No sonographic abnormalities are seen in the area of the patient's reported palpable lump or pain. 3 morphologically normal lymph nodes are incidentally seen. MMODAL No Panel InformationOrdered By: Mohan Romano on 12-19-2022 [facility] Work Phone: US Breast - left limitedon 1 Radiology Study observation (narrative) [facility] Work Phone: COMPREHENSIVE PANELon 2022 Albumin [Mass/Vol] 4.6 g/dL Normal 3.4 - 5.0 [facility] Comment on above: Performed By: #### C MP #### [facility] [address] [place] [address] ALP [Catalytic activity/Vol] 63 U/L Normal 33 - 110 [facility] Comment on above: Performed By: #### C MP #### [facility] [address] [place] [address] ALT [Catalytic activity/Vol] 23 U/L Normal 7 - 45 [facility] Comment on above: Result Comment: Lacie ents treated with Sulfasalazine may generate falsely decreased results for ALT. Performed By: #### C MP #### [facility] [address] [place] [address] Anion gap [Moles/Vol] 14 mmol/L Normal 10 - 20 [facility] Comment on above: Performed By: #### C MP #### [facility] [address] [place] [address] AST [Catalytic activity/Vol] 22 U/L Normal 9 - 39 [facility] Comment on above: Performed By: #### C MP #### [facility] [address] [place] [address] Bilirubin [Mass/Vol] 0.3 mg/dL Normal 0.0 - 1.[address] [facility] Comment on above: Performed By: #### C MP #### [facility] [address] [place] [address] Calcium [Mass/Vol] 9.2 mg/dL Normal 8.6 - 10.6 [facility] Comment on above: Performed By: #### C MP #### [facility] [address] [place] [address] Chloride [Moles/Vol] 102 mmol/L Normal 98 - 107 [facility] Comment on above: Performed By: #### C MP #### [facility] [address] [place] [address] Creatinine [Mass/Vol] 0.66 mg/dL Normal 0.50 - 1.05 [facility] Comment on above: Performed By: #### C MP #### [facility] [address] [place] [address] eGFR FEMALE >90 Normal >90 [facility] Comment on above: Result Comment: CALC ULATIONS OF ESTIMATED GFR ARE PERFORMED USING THE 2020 CKD-EPI STUDY REFIT EQUATION WITHOUT THE RACE VARIABLE FOR THE IDMS-TRACEABLE CREATININE METHODS. https://jasn.asnjournals.org/content//ASN.809719 6625 Performed By: #### C MP #### [facility] [address] [place] [address] Glucose [Mass/Vol] 82 mg/dL Normal 74 - 99 [facility] Comment on above: Performed By: #### C MP #### [facility] [address] [place] [address] HCO3 (Bld) [Moles/Vol] 25 mmol/L Normal 21 - 32 [facility] Comment on above: Performed By: #### C MP #### [facility] [address] [place] [address] Potassium [Moles/Vol] 3.9 mmol/L Normal 3.5 - 5.3 [facility] Comment on above: Performed By: #### C MP #### [facility] [address] [place] [address] Protein [Mass/Vol] 7.2 g/dL Normal 6.4 - 8.2 [facility] Comment on above: Performed By: #### C MP #### [facility] [address] [place] [address] Sodium [Moles/Vol] 137 mmol/L Normal 136 - 145 [facility] Comment on above: Performed By: #### C MP #### [facility] [address] [place] [address] Urea nitrogen [Mass/Vol] 17 mg/dL Normal 6 - 23 [facility] Comment on above: Performed By: #### C MP #### [facility] [address] [place] [address] VITAMIN D, 25-HYDROXYon 11-08 VITAMIN D, 25-HYDROXY 36 ng/mL Normal [facility] Comment on above: Result Comment: . DEFICIENCY: < 20 NG/ML INSUFFICIENCY: 20-29 NG/ML SUFFICIENCY: 30-100 NG/ML THIS ASSAY ACCURATELY QUANTIFIES THE SUM OF VITAMIN D3, 25-HYDROXY AND VIT D2,25-HYDROXY. Performed By: #### V TDOH #### [facility] [address] [place] [address] COMPREHENSIVE PANELon 2022 Lab Specimen Source Normal [facility] Comment on above: Performed By: #### C MP #### [facility] [address] [place] [address] Performed By: #### V TDOH #### [facility] [address] [place] [address] XR foot RT min 3V*on 023 XR foot RT min 3V* [facility] [employer] Other XR foot RT min 3V* [facility] [employer] Other XR foot RT min 3V* [address] [place] [address] [employer] Other XR foot RT min 3V* [place] [address] [employer] Other XR foot RT min 3V* XRay Report [employer] Other XR foot RT min 3V* Signed [employer] Other XR foot RT min 3V* Patient: Michael Weller MR#: [id number] [employer] Other XR foot RT min 3V* [id number] [employer] Other XR foot RT min 3V* : 1985 Acct:[id number] [employer] Other XR foot RT min 3V* Age/Sex: 36 / F ADM Date: 07/02/22 [employer] Other XR foot RT min 3V* Loc: [id number] Room: Type: [facility] [employer] Other XR foot RT min 3V* Attending Dr: Bolivar Sherman HAT LINER-C [employer] Other XR foot RT min 3V* Copies to: Bolivar Pereyra Lane [facility] [employer] Other XR foot RT min 3V* Ordering Provider: Bolivar Sherman WATER POLLUTION CONTROL INSPECTORQuickPlay Media Other XR foot RT min 3V* Date of Service: 07/02/22 [employer] Other XR foot RT min 3V* XR/XR foot RT min 3V*: Right foot pain [employer] Other XR foot RT min 3V* 3 views RIGHT foot [employer] Other XR foot RT min 3V* COMPARISON:None [employer] Other XR foot RT min 3V* HISTORY: RIGHT 5th metatarsal pain for one week [employer] Other XR foot RT min 3V* Acute findings: None [employer] Other XR foot RT min 3V* Degenerative change: Unremarkable [employer] Other XR foot RT min 3V* Soft tissue findings : Unremarkable [employer] Other XR foot RT min 3V* Joint effusion: None [employer] Other XR foot RT min 3V* Postop changes: None [employer] Other XR foot RT min 3V* XR/XR foot RT min 3V* [employer] Other XR foot RT min 3V* IMPRESSION:No acute findings [employer] Other XR foot RT min 3V* Impression dictated by: Roddy Villegas M.D.07/02/2022 1:27 PM [employer] Other XR foot RT min 3V* Dictation Location: [place] [address] [employer] Other XR foot RT min 3V* Transcribed By: LENY 07/02/22 1327 [employer] Other XR foot RT min 3V* Dictated By: Roddy Villegas DO 07/02/22 1323 [employer] Other XR foot RT min 3V* Signed By: [employer] Other XR foot RT min 3V* 07/02/22 1325 [facility] [employer] Other Office Visit (Primary Care F orms)on [...] YOEL = N; Verified Transmission to [id number]; Last Updated By: Bowen Olmedo; 02/10/2022 3:45:08 [...] Grandfather Famil (more content not included)... Normal [facility] ULTRASOUND LIMITED BREASTon 10-14-2021 ULTRASOUND LIMITED BREAST Patient Name: MICHAEL WELLER STUDY: BREAST ULTRASOUND; 10/14/2021 3:38 pm ACCESSION NUMBER(S): [id number] ORDERING CLINICIAN: GRAZYNA MORRISSEY INDICATION: Patient presents with right axillary painful palpable mass for the last 2 years. History of benign right breast mass with unknown pathology in right breast. COMPARISON: Mammogram 06/21/2021, 07/06/2018, 01/08/2018. Breast ultrasound 06/21/2021, 04/23/2020, 07/15/2019, 02/02/2019 FINDINGS: Targeted ultrasound was performed of the right axilla by a registered wood heel cementer using elastography. Within the right axilla, no sonographic abnormality is present. The tissues are soft on elastography. Incidental note of normal appearing right axillary lymph node. IMPRESSION: No sonographic evidence of malignancy. Recommendation is clinical follow-up for patient's symptomatology. Screening mammogram in June 2022. BI-RADS CATEGORY: Category: 2 - Benign. Recommendation: Clinical follow-up for symptomatology. For any future breast imaging appointments, please call [phone]). I personally reviewed the images/study and I agree with the findings as stated by radiology physician assistant Brandt Camarillo MD. Electronically signed by: JAYME STEWART MD Normal [facility] Ultrasound Limited Breaston 10-14-2021 MG Breast Screening [facility] Center[facility]idy merchant Work Phone: Albumin [Mass/volume] in Ser um or PlasmaOrdered By: Kp Alvares on 10-07-2021 Albumin [Mass/Vol] 3.9 g/dL 3.2-5.5 [facility] Basophils Auto (Bld) [#/Vol] Ordered By: Kp Alvares on 10-07-2021 Basophils (Bld) [#/Vol] 0.0 10*3/uL 0.0-0.2 [facility] Basophils/100 WBC Auto (Bld) Ordered By: Kp Alvares on 10-07-2021 Basophils/100 WBC (Bld) 0.6 % . [facility] Blood hemoglobin measurement (mass/volume)Ordered By: Kp Alvares on 10-07-2021 Hemoglobin (Bld) [Mass/Vol] 12.9 g/dL 11.8-15.4 [facility] Blood leukocytes automated c ount (number/volume)Ordered By: Kp Alvares on 10-07-2021 WBC (Bld) [#/Vol] 6.7 10*3/uL 4.5-11.0 [facility] Cholesterol [Mass/volume] in Serum or PlasmaOrdered By: Kp Alvares on 10-07-2021 Cholesterol [Mass/Vol] 192 mg/dL 140-200 [facility] Comment on above: Chol less than 200 m g/dl low risk Chol 201-239 mg/dl borderline risk Chol 240 mg/dl and greater high risk Cholesterol in LDL Calc [Mas s/Vol]Ordered By: Kp Alvares on 10-07-2021 Cholesterol in LDL [Mass/Vol] 104 mg/dL 0-100 [facility] Comment on above: LDL ATP III CLASSIFI CATION LDL less than 100 mg/dL Optimal LDL 100-129 mg/dL Near or above optimal LDL 130-159 mg/dL Borderline high LDL 160-189 mg/dL High LDL greater than 189 mg/dL Very high Cholesterol in VLDL Calc [Ma ss/Vol]Ordered By: pK Alvares on 10-07-2021 Cholesterol in VLDL [Mass/Vol] 49 mg/dL [facility] Creatinine and Glomerular fi ltration rate.predicted panel (S/P/Bld)Ordered By: Kp lAvares on 10-07-2021 Creatinine [Mass/Vol] 0.60 mg/dL 0.44-1.03 [facility] Eosinophils Auto (Bld) [#/Vo l]Ordered By: Kp Alvares on 10-07-2021 Eosinophils (Bld) [#/Vol] 0.0 10*3/uL 0.0-0.45 [facility] Eosinophils/100 WBC Auto (Bl d)Ordered By: Kp Alvares on 10-07-2021 Eosinophils/100 WBC (Bld) 0.1 % . [facility] Erythrocyte distribution wid th Auto (RBC) [Ratio]Ordered By: Kp Alvares on 10-07-2021 Erythrocyte distribution width (RBC) [Ratio] 14.1 % 11.9-15.3 [facility] Estimated glomerular filtrat ion rate (GFR) non- AmericanOrdered By: Kp Alvares on 10-07-2021 GFR/1.73 sq M.predicted among non-blacks MDRD (S/P/Bld) [Vol rate/Area] > 60 mL/Min [facility] Globulin Calc (S) [Mass/Vol] Ordered By: Kp Alvares on 10-07-2021 Globulin (S) [Mass/Vol] 2.7 g/dL [facility] Hematocrit Auto (Bld) [Volum e fraction]Ordered By: Kp Alvares on 10-07-2021 Hematocrit (Bld) [Volume fraction] 39.2 % 34.0-46.4 [facility] Laboratory - Hematology and Cell countsOrdered By: Kp Alvares on 10-07-2021 Nucleated RBC/100 WBC (Bld) [Ratio] 0.0 % 0-0.5 [facility] Lymphocytes Auto (Bld) [#/Vo l]Ordered By: Kp Alvares on 10-07-2021 Lymphocytes (Bld) [#/Vol] 2.0 10*3/uL 1.00-4.8 [facility] Lymphocytes/100 WBC Auto (Bl d)Ordered By: Kp Alvares on 10-07-2021 Lymphocytes/100 WBC (Bld) 30.2 % . [facility] MCH Auto (RBC) [Entitic mass ]Ordered By: Kp Alvares on 10-07-2021 MCH (RBC) [Entitic mass] 28.2 pg 24.7-34.3 [facility] MCHC Auto (RBC) [Mass/Vol]Or dered By: Kp Alvares on 10-07-2021 MCHC (RBC) [Mass/Vol] 33.0 g/dL 32.0-35.0 [facility] MCV Auto (RBC) [Entitic vol] Ordered By: Kp Alvares on 10-07-2021 MCV (RBC) [Entitic vol] 85.5 fL 80-100 [facility] Monocytes Auto (Bld) [#/Vol] Ordered By: Kp Alvares on 10-07-2021 Monocytes (Bld) [#/Vol] 0.4 10*3/uL 0.0-0.8 [facility] Monocytes/100 WBC Auto (Bld) Ordered By: Kp Alvares on 10-07-2021 Monocytes/100 WBC (Bld) 5.4 % . [facility] Neutrophils Auto (Bld) [#/Vo l]Ordered By: Kp Alvares on 10-07-2021 Neutrophils (Bld) [#/Vol] 4.2 10*3/uL 1.8-7.7 [facility] Neutrophils/100 WBC Auto (Bl d)Ordered By: Kp Alvares on 10-07-2021 Neutrophils/100 WBC (Bld) 63.7 % . [facility] No Panel InformationOrdered By: Kp Alvares on 10-07-2021 Estimated GFR () > 60 mL/Min [facility] Comment on above: GFR estimated refere nce range: According to KDOQI guidelines, <60 ml/min/1.73m2 is sufficient to diagnose a patient with chronic kidney disease. Pharmacy Creatinine Clearance (Chem N/A [facility] Platelet mean volume Auto (B ld) [Entitic vol]Ordered By: Kp Alvares on 10-07-2021 Platelet mean volume (Bld) [Entitic vol] 11.4 fL 6.3-10.7 [facility] Platelets Auto (Bld) [#/Vol] Ordered By: Kp Alvares on 10-07-2021 Platelets (Bld) [#/Vol] 164 10*3/uL 150-450 [facility] Protein [Mass/volume] in Ser um or PlasmaOrdered By: Kp Alvares on 10-07-2021 Protein [Mass/Vol] 6.6 g/dL 6.1-7.9 [facility] RBC Auto (Bld) [#/Vol]Ordere d By: Kp Alvares on 10-07-2021 RBC (Bld) [#/Vol] 4.59 10*6/uL 3.60-5.00 [facility] Serum or plasma alanine bynum otransferase measurement without P-5'-P (enzymatic activiOrdered By: Kp Alvares on 10-07-2021 ALT No additional P-5'-P [Catalytic activity/Vol] 16 U/L 10-60 [facility] Serum or plasma albumin/glob ulin mass ratioOrdered By: pK Alvares on 10-07-2021 Albumin/Globulin [Mass ratio] 1.4 {ratio} [facility] Serum or plasma alkaline jenn sphatase measurement (enzymatic activity/volume)Ordered By: Kp Alvares on 10-07-2021 ALP [Catalytic activity/Vol] 55 U/L 32-92 [facility] Serum or plasma aspartate am inotransferase measurement (enzymatic activity/volume)Ordered By: Kp Alvares on 10-07-2021 AST [Catalytic activity/Vol] 16 U/L 10-42 [facility] Serum or plasma calcium marlon urement (mass/volume)Ordered By: Kp Alvares on 10-07-2021 Calcium [Mass/Vol] 9.2 mg/dL 8.2-10.2 [facility] Serum or plasma chloride any surement (moles/volume)Ordered By: Kp Alvares on 10-07-2021 Chloride [Moles/Vol] 102 mmol/L 95-114 [facility] Serum or plasma glucose marlon urement (mass/volume)Ordered By: Kp Alvares on 10-07-2021 Glucose [Mass/Vol] 86 mg/dL 70-100 [facility] Comment on above: ADA recommended refe rence range Random Glucose Reference Range is dependent on time and content of last meal. Glucose of more than 200 mg/dL in a nonstressed, ambulatory subject supports the diagnosis of Diabetes Mellitus. Serum or plasma high density lipoprotein (HDL) cholesterol measurementOrdered By: Kp Alvares on 10-07-2021 Cholesterol in HDL [Mass/Vol] 39 mg/dL 35-85 [facility] Comment on above: HDL CHOL ATP-III CLA SSIFICATION Cardiovascular Risk HDL > or equal to 60 mg/dL LOW HDL < 40 mg/dL HIGH Serum or plasma potassium me asurement (moles/volume)Ordered By: Kp Alvares on 10-07-2021 Potassium [Moles/Vol] 4.1 mmol/L 3.5-5.1 [facility] Serum or plasma sodium measu rement (moles/volume)Ordered By: Kp Alvares on 10-07-2021 Sodium [Moles/Vol] 134 mmol/L 136-146 [facility] Serum or plasma total biliru bin measurement (mass/volume)Ordered By: Kp Alvares on 10-07-2021 Bilirubin [Mass/Vol] 0.6 mg/dL 0.3-1.2 [facility] Serum or plasma total carbon dioxide measurement (moles/volume)Ordered By: Kp Alvares on 10-07-2021 CO2 [Moles/Vol] 25.9 mmol/L 22.0-30.0 [facility] Serum or plasma total choles terol/high density lipoprotein (HDL) cholesterol mass ratOrdered By: Kp Alvares on 10-07-2021 Cholesterol.total/Cho lesterol in HDL [Mass ratio] 4.9 {ratio} <5.0 [facility] Serum or plasma urea nitroge n measurement (mass/volume)Ordered By: Kp Alvares on 10-07-2021 Urea nitrogen [Mass/Vol] 10 mg/dL 9-23 [facility] TSH DL <= 0.005 mIU/L QnOrde red By: Kp Alvares on 10-07-2021 TSH Qn 2.68 m[IU]/L 0.45-5.33 [facility] Triglyceride [Mass/volume] i n Serum or PlasmaOrdered By: Kp Alvares on 10-07-2021 Triglyceride [Mass/Vol] 246 mg/dL 35-149 [facility] Comment on above: TRIG ATP III CLASSIF ICATION TRIG less than 150 mg/dL Normal TRIG 150-199 mg/dL Borderline high TRIG 200-500 mg/dL High TRIG greater than 500 mg/dL Very high Standard traceable to the Center for Disease Conrtrol and Prevention (CDC) test method. CBC AUTO DIFFon 07-12-2021 BASO # 0.0 103/ul Normal 0.0-0.1 [facility] Comment on above: Performed By: #### C BC #### [facility] [address] [place] [address] [address] Kalyn Gutierrez Basophils/100 WBC (Bld) 0.4 % Normal 0.2-2.0 [facility] Comment on above: Performed By: #### C BC #### [facility] [address] [address] [address] Kalyn Gutierrez EO # 0.0 103/ul Normal 0.0-0.7 [facility] Comment on above: Performed By: #### C BC #### [facility] [address] [place] [address] Dr. Kalyn Gutierrez Eosinophils/100 WBC (Bld) 0.0 % Critically low 0.9-7.0 [facility] Comment on above: Performed By: #### C BC #### [facility] [address] [place] [address] Dr. Kalyn Gutierrez Erythrocyte distribution width (RBC) [Ratio] 12.8 % Normal 11.0-15.0 [facility] Comment on above: Performed By: #### C BC #### [facility] [address] [place] [address] Dr. Kalyn Gutierrez Hematocrit (Bld) [Volume fraction] 38.8 % Normal 36.0-48.0 [facility] Comment on above: Performed By: #### C BC #### [facility] [address] [place] [address] Dr. Kalyn Gutierrez Hemoglobin (Bld) [Mass/Vol] 12.4 g/dL Normal 12.0-16.0 [facility] Comment on above: Performed By: #### C BC #### [facility] [address] [place] [address] Dr. Kalyn Gutierrez IG # 0.02 10e3/ul Normal 0.00-0.03 [facility] Comment on above: Performed By: #### C BC #### [facility] [address] [place] [address] Dr. Kalyn Gutierrez IG % 0.3 % Normal 0.0-0.5 [facility] Comment on above: Performed By: #### C BC #### [facility] [address] [place] [address] Dr. Kalyn Gutierrez LYMPH # 1.8 103/ul Normal 1.2-3.8 [facility] Comment on above: Performed By: #### C BC #### [facility] [address] [place] [address] Dr. Kalyn Gutierrez Lymphocytes/100 WBC (Bld) 25.0 % Normal 20.5-60.0 [facility] Comment on above: Performed By: #### C BC #### [facility] [address] [place] [address] Dr. Kalyn Gutierrez MANUAL DIFF REQ NO Normal [facility] Comment on above: Performed By: #### C BC #### [facility] [address] [place] [address] Dr. Kalyn Gutierrez MCH (RBC) [Entitic mass] 28.2 pg Normal 26.7-34.0 [facility] Comment on above: Performed By: #### C BC #### [facility] [address] [place] [address] Dr. Kalyn Gutierrez MCHC (RBC) [Mass/Vol] 32.0 g/dL Normal 29.9-35.2 [facility] Comment on above: Performed By: #### C BC #### [facility] [address] [place] [address] Dr. Kalyn Gutierrez MCV (RBC) [Entitic vol] 88.4 fL Normal 81.0-99.0 [facility] Comment on above: Performed By: #### C BC #### [facility] [address] [place] [address] Dr. Kalyn Gutierrez MONO # 0.6 103/ul Normal 0.3-0.8 [facility] Comment on above: Performed By: #### C BC #### [facility] [address] [place] [address] Dr. Kalyn Gutierrez Monocytes/100 WBC (Bld) 8.7 % Normal 1.7-12.0 [facility] Comment on above: Performed By: #### C BC #### [facility] [address] [place] [address] Dr. Kalyn Gutierrez NEUT # 4.8 103/ul Normal 1.4-6.5 [facility] Comment on above: Performed By: #### C BC #### [facility] [address] [place] [address] Dr. Kalyn Gutierrez Neutrophils/100 WBC (Bld) 65.6 % Normal 43.0-75.0 [facility] Comment on above: Performed By: #### C BC #### [facility] [address] [place] [address] Dr. Kalyn Gutierrez Platelet mean volume (Bld) [Entitic vol] 12.3 fL Normal 9.5-13.5 [facility] Comment on above: Performed By: #### C BC #### [facility] [address] [place] [address] Dr. Kalyn Gutierrez PLT 183 103/ul Normal 150-450 [facility] Comment on above: Performed By: #### C BC #### [facility] [address] [place] [address] Dr. Kalyn Gutierrez RBC 4.39 106/ul Normal 4.20-5.40 [facility] Comment on above: Performed By: #### C BC #### [facility] [address] [place] [address] Dr. Kalyn Gutierrez WBC 7.3 103/ul Normal 4.0-11.0 [facility] Comment on above: Performed By: #### C BC #### [facility] [address] [place] [address] Dr. Kalyn Gutierrez PREG QUANT HCGon 07-12-2021 HCG QUANT <1 Normal [facility] Comment on above: Performed By: #### P REGQNT #### [facility] [address] [place] [address] Dr. Kalyn Gutierrez HCG RANGE SEE BELOW Normal [facility] Comment on above: Result Comment: 5-50 0-1 WEEK 40-300 1-2 WEEKS 100-1,000 2-3 WEEKS 500-6,000 3-4 WEEKS 5,000-200,000 1-2 MONTHS 10,000-100,000 2-3 MONTHS 3,000-50,000 2ND TRIMESTER 1,000-50,000 3RD TRIMESTER Performed By: #### P REGQNT #### [facility] [address] [place] [address] Dr. Kalyn Gutierrez US PELVIS AND TRANSVAGon [...] by: NOEMI KRISHNA Date: 2021-06-22 09:10 Normal [facility] DIGITAL DIAG MAMM BILAT WITH TOMOon 06-21-2021 DIGITAL DIAG MAMM BILAT WITH SUSANA Patient Name: MICHAEL WELLER STUDY: DIGITAL DIAG MAMM BILAT WITH SUSANA; BREAST ULTRASOUND; 06/21/2021 3:05 pm; 06/21/2021 3:31 pm ACCESSION NUMBER(S): [id number]; [id number] ORDERING CLINICIAN: RAFAELA ARGUELLO INDICATION: Right breast [...] breast ultrasound was performed by a registered wood heel cementer utilizing elastography. The irregular hypoechoic parallel mass [...] any future breast imaging appointments, please call [phone] ([phone]). Patient letter sent SAAPPR Electronically signed by: MOHAN ROMANO MD Normal [facility] IO UA (automated w/o microsc opy)on 06-21-2021 Protein (U) [Mass/Vol] Negative [facility] Work Phone: IO UA (automated w/o microscopy) Negative [facility] Work Phone: IO UA (automated w/o microscopy) Normal (0.2-1.0 mg/dl) [facility] Work Phone: IO UA (automated w/o microscopy) 6.5 1 [facility] Work Phone: IO UA (automated w/o microscopy) 1.025 1 [facility] Work Phone: IO UA (automated w/o microscopy) Clear [facility] Work Phone: IO UA (automated w/o microscopy) Yellow [facility] Work Phone: IO Ultrasound, measurement p ost-void resid urine and/or bl cap; no imagon 06-21-2021 IO Ultrasound, measurement post-void resid urine and/or bl cap; no imag 0 mL [facility] Work Phone: Radiologyon 06-21-2021 MG Breast Diagnostic Please click on the link to view the study images Normal [facility] Work Phone: MG Breast Diagnostic Normal MP-W [facility] [address] Work Phone: Tobacco Screening.on 022 Fall risk assessment a) No falls within the last year [facility] Work Phone: Tobacco use status CPHS b) No [facility] Work Phone: ULTRASOUND LIMITED BREASTon 06-21-2021 ULTRASOUND LIMITED BREAST Patient Name: MICHAEL WELLER STUDY: DIGITAL DIAG MAMM BILAT WITH SUSANA; BREAST ULTRASOUND; 06/21/2021 3:05 pm; 06/21/2021 3:31 pm ACCESSION NUMBER(S): [id number]; [id number] ORDERING CLINICIAN: RAFAELA ARGUELLO INDICATION: Right breast [...] breast ultrasound was performed by a registered wood heel cementer utilizing elastography. The irregular hypoechoic parallel mass [...] any future breast imaging appointments, please call [phone] ([phone]). Patient letter sent SAAPPR Electronically signed by: MOHAN ROMANO MD Normal [facility] Ultrasound Limited Breaston 06-21-2021 MG Breast Screening Normal MP-WS [facility] [address] Work Phone: IO UA (automated w/o microsc opy)on 06-04-2021 Protein (U) [Mass/Vol] Negative CV-ZMTH-Mdwtri ke [address] Work Phone: IO UA (automated w/o microscopy) Negative EV-MMUF-Kdmkxa [address] Work Phone: IO UA (automated w/o microscopy) Normal FJ-IBVC-Pmlpzk ke [address] Work Phone: IO UA (automated w/o microscopy) 7.0 1 QP-UDNW-Szsuxe [address] Work Phone: IO UA (automated w/o microscopy) 1.020 1 GU-XKMJ-Wwyatl [address] Work Phone: IO UA (automated w/o microscopy) Clear JH-HBCG-Udruaj [address] Work Phone: IO UA (automated w/o microscopy) Yellow QG-YOHK-Sfckua ke 200 Work Phone: Tobacco Screening.on 022 Adult depression screening assessment No MP-WSPC-Luiz tla [address] Work Phone: Fall risk assessment a) No falls within the last year JK-SAHS-Pbkyng [address] Work Phone: Last menstrual period start date 14May2021 RT-ZGBZ-Uqcybp ke [address] Work Phone: Tobacco use status CPHS b) No GY-YHDG-[place] [address] Work Phone: PAP ACOG PANEL 2: 30 to 65on 03-28-2021 . . Normal [facility] Comment on above: Result Comment: Perf ormed at: WB Performed By: #### [id number] #### [facility] [address] [place] [address] Dr. Kalyn Gutierrez Age Gdln ACOG Testing 30-65 [facility] Comment on above: Performed By: #### [id number] #### [facility] [address] [place] [address] Dr. Kalyn Gutierrez DIAGNOSIS: Comment [facility] Comment on above: Result Comment: NEGA TIVE FOR INTRAEPITHELIAL LESION OR MALIGNANCY. Performed at: WB Performed By: #### [id number] #### [facility] [address] [place] [address] Dr. Kalyn Gutierrez HPV Aptima Negative Normal [facility] Comment on above: Result Comment: This nucleic acid amplification test detects fourteen high-risk HPV types (16,18,31,33,35,39,45,51,52,56,58,59,66,68) without differentiation. Performed at: =G Performed By: #### [id number] #### [facility] [address] [place] [address] Dr. Kalyn Gutierrez Methodology: Comment [facility] Comment on above: Result Comment: This liquid based ThinPrep(R) pap test was screened with the use of an image guided system. Performed at: WB Performed By: #### [id number] #### [facility] [address] [place] [address] Dr. Kalyn Gutierrez Note: Comment [facility] Comment on above: Result Comment: The Pap smear is a screening test designed to aid in the detection of premalignant and malignant conditions of the uterine cervix. It is not a diagnostic procedure and should not be used as the sole means of detecting cervical cancer. Both false-positive and false-negative reports do occur. . Performed at: WB Performed By: #### [id number] #### [facility] [address] [place] [address] Dr. Kalyn Gutierrez Performed by: Comment Normal [facility] Comment on above: Result Comment: Tawnya Del Rio, Core Shaper (ASCP) Performed at: WB Performed By: #### [id number] #### [facility] [address] [address] [address] Kalyn Gutierrez Specimen adequacy: Comment Normal [facility] Comment on above: Result Comment: Sati sfactory for evaluation. Endocervical and/or squamous metaplastic cells (endocervical component) are present. Performed at: WB Performed By: #### [id number] #### [facility] [address] [address] [address] Kalyn Gutierrez Vital Signs Date Time Vital Sign Value Performing Clinician Facility 01-05-2024 11:51-0400 Body mass index (BMI) [Ratio] 30.45 kg/m2 Maryann Leal Work Phone: 0(703)[phone] [place] [address] 01-05-2024 11:51-0400 Body temperature 98.2 [degF] Maryann Leal Work Phone: 7(415)786-852953 [place] [address] 01-05-2024 11:51-0400 Body weight 83.01 kg Maryann Leal Work Phone: 5(982)096-760353 [place] [address] 01-05-2024 11:51-0400 Diastolic blood pressure 76 mm[Hg] Maryann Leal Work Phone: 3(003)[phone] [place] [address] 01-05-2024 11:51-0400 Heart rate 74 /min Maryannphuong Leal Work Phone: 7(279)843-305053 [place] [address] 01-05-2024 11:51-0400 Respiratory rate 18 /min Maryann Leal Work Phone: 5(769)[phone] [place] [address] 01-05-2024 11:51-0400 SaO2% (BldA) [Mass fraction] 98 % Maryann Leal Work Phone: 4(025)439-113483 [place] [address] 01-05-2024 11:51-0400 Systolic blood pressure 119 mm[Hg] Maryann MicMayank Work Phone: [facility] 09-05-2023 13:24-0400 Body height 165.1 cm [facility] 09-05-2023 13:24-0400 Body mass index (BMI) [Ratio] 29.2 kg/m2 [facility] 09-05-2023 13:24-0400 Body temperature 97.9 [degF] [facility] 09-05-2023 13:24-0400 Body weight 79.83 kg [facility] 09-05-2023 13:24-0400 Diastolic blood pressure 85 mm[Hg] [facility] 09-05-2023 13:24-0400 Heart rate 106 /min [facility] 09-05-2023 13:24-0400 Respiratory rate 18 /min [facility] 09-05-2023 13:24-0400 SaO2% (BldA) [Mass fraction] 96 % [facility] 09-05-2023 13:24-0400 Systolic blood pressure 120 mm[Hg] [facility] 07-22-2023 14:37-0400 Body height 165.1 cm Jhonny Lee MD Work Phone: [facility] 07-22-2023 14:37-0400 Body mass index (BMI) [Ratio] 30.72 kg/m2 Jhonny Lee MD Work Phone: [facility] 07-22-2023 14:37-0400 Body weight 83.73 kg Jhonny Lee MD Work Phone: [facility] 07-22-2023 14:37-0400 Diastolic blood pressure 78 mm[Hg] Jhonny Lee MD Work Phone: [facility] 07-22-2023 14:37-0400 Heart rate 111 /min Jhonny Lee MD Work Phone: [facility] 07-22-2023 14:37-0400 Systolic blood pressure 118 mm[Hg] Jhonny Lee MD Work Phone: [facility] 04-27-2023 15:40-0500 Body height 165.1 cm Jhonny Lee MD Work Phone: [facility] 04-27-2023 15:40-0500 Body mass index (BMI) [Ratio] 34.15 kg/m2 Jhonny Lee MD Work Phone: [facility] 04-27-2023 15:40-0500 Body weight 93.08 kg Jhonny Lee MD Work Phone: [facility] 04-27-2023 15:40-0500 Diastolic blood pressure 60 mm[Hg] Jhonny Lee MD Work Phone: [facility] 04-27-2023 15:40-0500 Heart rate 123 /min Jhonny Lee MD Work Phone: [facility] 04-27-2023 15:40-0500 Respiratory rate 14 /min Jhonny Lee MD Work Phone: [facility] 04-27-2023 15:40-0500 Systolic blood pressure 104 mm[Hg] Jhonny Lee MD Work Phone: [facility] 02-19-2023 10:39-0500 Body height 165.1 cm Jhonny Lee MD Work Phone: [facility] 02-19-2023 10:39-0500 Body mass index (BMI) [Ratio] 36.08 kg/m2 Jhonny Lee MD Work Phone: [facility] 02-19-2023 10:39-0500 Body weight 98.34 kg Jhonny Lee MD Work Phone: 4(425)[phone] [place] [address] 02-19-2023 10:39-0500 Diastolic blood pressure 83 mm[Hg] Jhonny Lee MD Work Phone: [facility] 02-19-2023 10:39-0500 Heart rate 94 /min Jhonny Lee MD Work Phone: [facility] 02-19-2023 10:39-0500 Systolic blood pressure 117 mm[Hg] Jhonny Lee MD Work Phone: [facility] 07-02-2022 13:20-0400 Body height 165.1 cm Bolivar Sherman Other [employer] Other 07-02-2022 13:20-0400 Body mass index (BMI) [Ratio] 33.28 kg/m2 Bolivar Sherman Other [employer] Other 07-02-2022 13:20-0400 Body weight 90.72 kg Bolivar Sherman Other [employer] Other 07-02-2022 13:20-0400 Diastolic blood pressure 78 mm[Hg] Bolivar Lane Other [employer] Other 07-02-2022 13:20-0400 Respiratory rate 18 /min Bolivar Sherman Other [employer] Other 07-02-2022 13:20-0400 SaO2% (BldA) [Mass fraction] 99 % Bolivar Sherman Other [employer] Other 07-02-2022 13:20-0400 Systolic blood pressure 117 mm[Hg] Bolivar Lane Other [employer] Other 10-14-2021 15:07-0400 Diastolic blood pressure 98 mm[Hg] Rafaela Arguello Work Phone: [facility] Work Phone: 10-14-2021 15:07-0400 Heart rate 103 /min Rafaela Arguello Work Phone: [facility] Work Phone: 10-14-2021 15:07-0400 Systolic blood pressure 132 mm[Hg] Rafaela Arguello Work Phone: [facility] Work Phone: 06-21-2021 08:13-0400 Body height 165.1 cm Rafaela Arguello Work Phone: [facility] Work Phone: 06-21-2021 08:13-0400 Body mass index (BMI) [Ratio] 33.28 kg/m2 Rafaela Arguello Work Phone: [facility] Work Phone: 06-21-2021 08:13-0400 Body surface area Derived from formula 1.98 m2 Rafaela Arguello Work Phone: [facility] Work Phone: 06-21-2021 08:13-0400 Body temperature 97.2 [degF] Rafaela Arguello Work Phone: [facility] Work Phone: 06-21-2021 08:13-0400 Body weight 90.72 kg Rafaela Arguello Work Phone: [facility] Work Phone: 06-21-2021 08:13-0400 Diastolic blood pressure 82 mm[Hg] Rafaela Arguello Work Phone: [facility] Work Phone: 06-21-2021 08:13-0400 Heart rate 89 /min Rafaela Arguello Work Phone: [facility] Work Phone: 06-21-2021 08:13-0400 Systolic blood pressure 115 mm[Hg] Rafaela Arguello Work Phone: [facility] Work Phone: 06-04-2021 13:05-0400 Body height 167.64 cm Rafaela Arguello Work Phone: GP-RHQZ-Htdilbtz 200 Work Phone: 06-04-2021 13:05-0400 Body mass index (BMI) [Ratio] 32.77 kg/m2 Rafaela Arguello Work Phone: SD-YLVA-Yozllpzf 200 Work Phone: 06-04-2021 13:05-0400 Body surface area Derived from formula 2.01 m2 Rafaela Arguello Work Phone: ZI-IJRH-Qkwzbiii 200 Work Phone: 06-04-2021 13:05-0400 Body temperature 98.2 [degF] Rafaela Arguello Work Phone: DD-RCJT-Hfhpvyii 200 Work Phone: 06-04-2021 13:05-0400 Body weight 92.08 kg Rafaela Arguello Work Phone: BU-UAPP-Inknjvlc 200 Work Phone: 06-04-2021 13:05-0400 Diastolic blood pressure 76 mm[Hg] Rafaela Arguello Work Phone: HH-EHJZ-Ikjgeidu 200 Work Phone: 06-04-2021 13:05-0400 Heart rate 80 /min Rafaela Arguello Work Phone: LW-VHOL-Ewpktoko 200 Work Phone: 06-04-2021 13:05-0400 Respiratory rate 16 /min Rafaela Arguello Work Phone: SC-NPZR-Bbxhsxvf 200 Work Phone: 06-04-2021 13:05-0400 Systolic blood pressure 122 mm[Hg] Rafaela Arguello Work Phone: GK-XNOO-Rsgcaksp 200 Work Phone: 12-07-2019 11:03-0400 BMI (Body Mass Index) 31.95 kg/m2 Rafaela Arguello SK-FGMJ-Fntklvbb 200 Work Phone: 12-07-2019 11:03-0400 Body Temperature 98.3 [degF] Rafaela Arguello MP-WSPC-[place] 200 Work Phone: Comment on above: Method: Temporal 12-07-2019 11:03-0400 Body weight 87.77 kg Rafaela Arguello RQ-BDGA-Zkswzskq 200 Work Phone: 12-07-2019 11:03-0400 BP Diastolic 74 mm[Hg] Rafaela Arguello VY-ODND-Jzoshxos 200 Work Phone: 12-07-2019 11:03-0400 BP Systolic 118 mm[Hg] Rafaela Arguello BG-HWHR-Axezeuno 200 Work Phone: 12-07-2019 11:03-0400 BSA (Body Surface Area) 1.96 m2 Rafaela Arguello MP-WSPC-[place] 200 Work Phone: 12-07-2019 11:03-0400 Height 165.74 cm Rafaela Arguello MP-WSPC-[place] 200 Work Phone: 12-07-2019 11:03-0400 Pulse (Heart Rate) 84 /min Rafaela Arguello MP-WSPC-West[place] mayur 200 Work Phone: 12-07-2019 11:03-0400 Respiratory Rate 16 /min Rafaela Arguello MP-WSPC-[place] 200 Work Phone: 05-16-2019 18:12-0400 BMI (Body Mass Index) 33.45 kg/m2 Rafaela Arguello MP-[facility]SP[facility]-[place] [facility] Work Phone: 05-16-2019 18:12-0400 Body Temperature 98.3 [degF] Rfaaela Arguello MP-[facility] [address] [facility] Work Phone: 05-16-2019 18:12-0400 Body weight 91.17 kg Rafaela Arguello MP-[facility]SP[facility]-[place] [address] [facility] Work Phone: 05-16-2019 18:12-0400 BP Diastolic 76 mm[Hg] Rafaela Arguello MP-[facility] [address] [facility] Work Phone: 05-16-2019 18:12-0400 BP Systolic 122 mm[Hg] Rafaela Arguello VJ-VVFQ-Mpos [address] [facility] Work Phone: 05-16-2019 18:12-0400 BSA (Body Surface Area) 1.98 m2 Rafaela Arguello MP-[facility] [facility] Work Phone: 05-16-2019 18:12-0400 Pulse (Heart Rate) 88 /min Rafaela Arguello MP-[facility] [facility] [facility] Work Phone: 05-16-2019 18:12-0400 Pulse Oximetry 98 % Rafaela Arguello MP-[facility] [address] [facility] Work Phone: 05-16-2019 18:12-0400 Respiratory Rate 18 /min Rafaela Arguello MP-[facility] [address] [facility] Work Phone: Encounters Encounter Date Encounter Type Care Provider Facility Start: 01-26-2024 End: 01-26-2024 Clinisync Result Encounter Matt Daya DO Work Phone: [facility] External [facility] Unsolicited Start: 01-26-2024 End: 01-26-2024 Clinisync Result Encounter Matt Daya DO Work Phone: [facility] External Department Unsolicited Start: 01-05-2024 End: 01-05-2024 Office outpatient visit 25 minutes Maryann Leal Work Phone: [facility] Comment on above: Acute lower UTI (Adrianna eulogio Dx); Urine frequency Start: 10-20-2023 End: 10-20-2023 ambulatory MATT DAYA Not Available Start: 09-05-2023 End: 09-05-2023 Departed Referred LAYNE Andersen Work Phone: [facility] 250 Start: 09-05-2023 End: 09-05-2023 ambulatory PHYSICIAN [facility] Work Phone: Start: 09-05-2023 End: 09-05-2023 Patient encounter procedure [facility] Amandeep Work Phone: Start: 09-01-2023 End: 09-01-2023 ambulatory ROULA BLEDSOE Facility:[facility] Start: 09-01-2023 End: 09-01-2023 Patient encounter procedure Roula Bledsoe AUTOMATIC [employer]AB[employer]IC CUTTER.TECHNOLOGY DIRECTOR Work Phone: [facility] [place] Comment on above: Dermatofibroma (Prim ottoniel Dx); Lentigines; Multiple benign nevi; Becerril angioma; Hx of malignant melanoma Start: 07-22-2023 End: 07-22-2023 ambulatory [facility] Start: 07-22-2023 End: 07-22-2023 Office outpatient visit 25 minutes Jhonny Lee MD Work Phone: [facility] Comment on above: Encephalopathy (Prim ottoniel Dx); Attention deficit hyperactivity disorder (ADHD), predominantly inattentive type; Insomnia due to medical condition; Anxiety Start: 07-02-2023 End: 07-02-2023 ambulatory MATT DAYA Not Available Start: 04-27-2023 End: 04-27-2023 ambulatory [facility] Start: 04-27-2023 End: 04-27-2023 Office outpatient visit 25 minutes Jhonny Lee MD Work Phone: [facility] Comment on above: Encephalopathy (Prim ottoniel Dx); Attention deficit hyperactivity disorder (ADHD), predominantly inattentive type; Insomnia due to medical condition; Anxiety Start: 03-04-2023 End: 03-04-2023 ambulatory [facility] Start: 03-04-2023 End: 03-04-2023 Office outpatient visit 15 minutes Karolina Man DO Work Phone: [facility] Comment on above: Anxiety Start: 02-19-2023 End: 02-19-2023 ambulatory [facility] Start: 02-19-2023 End: 02-19-2023 Office outpatient new 60 minutes Jhonny Lee MD Work Phone: [facility] Comment on above: Encephalopathy (Prim ottoniel Dx); Anxiety; Attention deficit hyperactivity disorder (ADHD), predominantly inattentive type Start: 12-19-2022 End: 12-19-2022 Subsequent hospital visit by physician Martha Breast Ultrasound 1 [facility] Comment on above: Lump in female breas t Start: 12-19-2022 End: 12-19-2022 ambulatory KAROLINA Cota [facility] Start: 12-19-2022 End: 12-19-2022 ambulatory KAROLINA Cota [facility] Start: 12-19-2022 End: 12-19-2022 Subsequent hospital visit by physician Martha Mammo 1 [facility] Comment on above: Abnormal mammogram Start: 12-03-2022 End: 12-03-2022 ambulatory KAROLINA Cota [facility] Ambulatory Start: 10-16-[address] Work Phone: [facility] Work Phone: Start: 07-02-2022 Office outpatient vi sit 25 minutes [facility] Start: 07-02-2022 End: 07-02-2022 ambulatory DO Danielle Infante Work Phone: [facility] Work Phone: Start: 07-02-2022 End: 07-02-2022 Patient encounter procedure DO Danielle Keenanzain Work Phone: [facility] 250 Start: 04-14-2022 Rx Renewal [address] Work Phone: [employer] 200 Work Phone: Start: 03-17-2022 Rx Renewal Rafaela Sanabria rd Work Phone: [employer] 200 Work Phone: Start: 02-10-2022 ambulatory Ms. Russo Cierra edmar Arguello Facility:[id number] Start: 02-10-2022 Office outpatient vi sit 25 minutes Rafaela Arguello Work Phone: YQ-FMEB-Craooych 200 Work Phone: Start: 10-30-2021 Rx Renewal Rafaela Sanabria rd Work Phone: TA-PXXW-Emtvxwbh 200 Work Phone: Start: 10-17-2021 End: 10-17-2021 Patient encounter procedure oRula Bledsoe LAYNE.TECHNOLOGY DIRECTOR Work Phone: [facility] [place] Comment on above: Lentigines (Primary Dx); Multiple benign nevi; Becerril angioma; Exposure to tanning bed, sequela; Hx of malignant melanoma; Dermatofibroma Start: 10-14-2021 Office consultation new/estab patient 60 min Rafaela Arguello Work Phone: [facility] Work Phone: Start: 10-14-2021 Patient encounter procedure Rafaela Arguello Work Phone: [facility] Work Phone: Start: 10-08-2021 Office outpatient vi sit 25 minutes Rafaela Arugello Work Phone: YW-PINL-Xgfytzrn 200 Work Phone: Start: 10-08-2021 ambulatory Ms. Russo Cierra Arguello Facility:[id number] Start: 10-07-2021 End: 10-07-2021 Departed Referred DO Danielle Infante Work Phone: [facility] Start: 10-02-2021 Rx Renewal Rafaela Sanabria rd Work Phone: AR-WQTR-Kxuknwaw 200 Work Phone: Start: 09-06-2021 Patient encounter procedure Rafaela Arguello Work Phone: [facility] Work Phone: Start: 09-06-2021 ambulatory Ms. Russo Cierra Arguello Facility:[id number] Start: 07-12-2021 End: 07-12-[address] ENCARNACION LISTED REQUEST Facility:H1 Start: 07-11-2021 Encounter for preprocedural cardiovascular examination DR MATT STAPLETON [facility] Start: 07-10-2021 End: 07-11-[address] MATT STAPLETON Facility:H1 Start: 07-10-2021 End: 07-11-2021 Encounter for preprocedural cardiovascular examination DR MATT STAPLETON Facility:H1 Start: 07-09-[address] MATT STAPLETON Facility :H1 Start: 07-01-[address] Work Phone: QR-ACYB-Saaytchx 200 Work Phone: Start: 06-28-2021 Chart Update Rafaela Sanabria rd Work Phone: ZN-NYZM-Snvuqzob 200 Work Phone: Start: 06-27-[address] Work Phone: UP-KPMN-Akkjertp 200 Work Phone: Start: 06-21-2021 End: 06-22-[address] MTAT STAPLETON Facility:H1 Start: 06-04-2021 Office outpatient vi sit 25 minutes Rafaela Arguello Work Phone: NG-LIHH-Mpwodqcg 200 Work Phone: Start: 06-04-2021 Patient encounter procedure Rafaela Arguello Work Phone: WB-NMBP-Rxuuyach 200 Work Phone: Start: 06-04-2021 ambulatory Rafaela Arguello Facility:[id number] Start: 03-25-2021 End: 03-25-[address] MATT STAPLETON Facility:H1 Start: 12-07-2019 Patient encounter procedure Rafaela Arguello TE-IDFT-Axrlmeyj 200 Work Phone: Start: 05-16-2019 Patient encounter procedure Rafaela Arguello ET-CDXB-Ffdw [facility] Work Phone: Start: 09-27-2018 Patient encounter procedure Rafaela Arguello MP-WSPC-[place] [facility] Work Phone: Start: 09-14-2018 Patient encounter procedure Rafaela Arguello LB-YUVY-Fejg [facility] Work Phone: Start: 07-17-2017 Patient encounter procedure Rafaela Arguello MP-WSPC-[place] [facility] Work Phone: Procedures Date Procedure Procedure Detail Performing Clinician Start: 01-26-2024 [facility] PREG QUANT HCG Core y Daya DO Work Phone: Start: 01-05-2024 End: 01-05-2024 Urine test visual color cmprsn meths Maryann Leal Work Phone: Start: 10-20-2023 Microscopic observat ion [Identifier] in Cervix by Cyto stain Maryann Leal Work Phone: Start: 04-27-2023 Follow-up visit Follow-up JHONNY LEE Start: 02-19-2023 DRUG SCREEN, URINE W ITH REFLEX TO CONFIRMATION KAROLINA MAN Start: 02-19-2023 AMB REFERRAL TO NEUROLOGY KAROLINA MAN Start: 12-19-2022 BI US BREAST LIMITED LEFT KAROLINA MAN Start: 12-19-2022 BI MAMMO BILATERAL DIAGNOSTIC TOMOSYNTHESIS KAROLINA MAN Start: 12-19-2022 Us breast uni real t sharath with image limited Karolina Cipriano Donovan DO Work Phone: Start: 12-19-2022 Diagnostic mammograp hy computer-aided detcj bi Karolina Man Work Phone: Start: 12-03-2022 Comprehensive metabo lic [...] Surgery Rafaela Arguello Hyperlipidemia screening Tho francesca Louisa Other Procedure on back Rafaela Silva Ingrid croft Work Phone: Removal of suture Bolivar For anabell Other Tonsillectomy Rafaela Arguello Total replacement of hip Keaton Arguello Plan of Treatment Date Care Activity Detail Author Start: 10-26-2037 Zoster Vaccines (1 o f 2) Zoster Vaccines (1 of 2) [facility] Start: 10-19-2028 Screening for malignant neoplasm of cervix [facility] Start: 10-19-2026 Screening for malignant neoplasm of cervix [facility] Start: 10-17-2025 Screening for malignant neoplasm of cervix [facility] Start: 04-23-2025 Lipid panel Lipid Panel [facility] Start: 10-26-2024 End: 10-26-2024 Patient encounter procedure 10/26/2024 4:00 PM EDT Office Visit [facility] [address] [place] [address] Matt Stapleton, DO [address] [place] [address] [facility] Start: 03-25-2024 Screening for malignant neoplasm of cervix [facility] Start: 02-16-2024 End: 02-16-2024 ambulatory 02/16/2024 8:30 AM EST Initial [facility] [address] [place] [phone] [facility] Start: 02-16-2024 End: 02-16-2024 Professional / ancillary services management 02/16/2024 8:00 AM EST Ancillary Procedure [facility] [address] [place] [phone] [facility] Start: 11-08-2023 COVID-19 Vaccine ( season) COVID-19 Vaccine () [facility] Start: 11-08-2023 Influenza vaccination U [facility] Start: 10-14-2023 End: 10-14-2023 Patient encounter procedure 10/14/2023 3:15 PM EDT Office Visit [facility] [address] [place] [phone] Jhonny Lee MD [address] [facility], [address] [id number] [facility] Start: 09-05-2023 Bacteria identified in Urine by Culture [facility] Start: 07-22-2023 End: 07-22-2023 Patient encounter procedure 07/22/2023 3:15 PM EDT Office Visit [facility] [address] [place] [address], [place] [phone] Jhonny Lee MD [address] [facility], [address] [phone] [facility] Start: 04-27-2023 End: 04-27-2023 Patient encounter procedure 04/27/2023 3:15 PM EST Office Visit [facility] [address] [place] [address], [place] [phone] Jhonny Lee MD [address] [facility], [address] [address] [facility] Start: 03-09-2023 Behavioral Health Screening Behavioral Health Screening [facility] Start: 03-04-2023 End: 03-04-2023 Patient encounter procedure 03/04/2023 8:40 AM EST Office Visit [facility] [address] [facility] [address] [place] [phone] [place] [address] [facility] [address] [place] [address] [facility] Start: 02-19-2023 End: 02-20-2024 Drugs of abuse screen W Reflex confirm panel - Urine [facility] Service Area Work Phone: Comment on above: Expected: 02/19/2023 (Approximate), Expires: 02/20/2024 Start: 02-19-2023 End: 02-19-2023 Patient encounter procedure 02/19/2023 10:15 AM EST Office Visit [facility] [address] [place] [phone] Jhonny Lee MD [address] [facility], [address] [address] [facility] Start: 11-07-2022 COVID-19 Vaccine ( season) COVID-19 Vaccine ( season) [facility] Start: 11-07-2022 Influenza vaccination Influenza Vacc ine (#1) [facility] Start: 01-21-2022 FUV, Provider: Luz Aguilar, Status: Pen, Time: 3:40 PM FUV, Provider: Luz Aguilar, Status: Pen, Time: 3:40 PM MB-GDNV-Ocfmlbpv 200 Work Phone: Start: 01-20-2022 [id number], Provider: Bisi Prabhakar, Status: Pen, Time: 5:00 PM [id number], Provider: Bisi Prabhakar, Status: Pen, Time: 5:00 PM [facility] Work Phone: Start: 01-13-2022 [id number], Provider: Bisi Prabhakar, Status: Pen, Time: 5:00 PM [id number], Provider: Bisi Prabhakar, Status: Pen, Time: 5:00 PM [facility] Work Phone: Start: 01-08-2022 [id number], Provider: Bisi Prabhakar, Status: Pen, Time: 4:00 PM [id number], Provider: Bisi Prabhakar, Status: Pen, Time: 4:00 PM [facility] Work Phone: Start: 01-01-2022 [id number], Provider: Bisi Prabhakar, Status: Pen, Time: 4:00 PM [id number], Provider: Bisi Prabhakar, Status: Pen, Time: 4:00 PM [facility] Work Phone: Start: 12-25-2021 [id number], Provider: Bisi Prabhakar, Status: Pen, Time: 4:00 PM [id number], Provider: Bisi Prabhakar, Status: Pen, Time: 4:00 PM [facility] Work Phone: Start: 12-17-2021 [id number], Provider: Bisi Prabhakar, Status: Pen, Time: 5:00 PM [id number], Provider: Bisi Prabhakar, Status: Pen, Time: 5:00 PM [facility] Work Phone: Start: 11-07-2021 Influenza vaccination INFLUENZA (#1) [facility] Start: 10-16-2021 NPV, Provider: Nafisa Bermudez, Status: Pen, Time: 1:00 PM NPV, Provider: Nafisa Bermudez, Status: Pen, Time: 1:00 PM [id number] 200 Work Phone: Start: 10-08-2021 [id number], Provider : Rafaela Arguello, Status: Pen, Time: 11:40 AM VIRFUVHOME, Provider: Rafaela Arguello, Status: Pen, Time: 11:40 AM [id number]-[id number] 200 Work Phone: Start: 09-30-2021 FUV, Provider: Luz Aguilar, Status: Pen, Time: 1:40 PM FUV, Provider: Luz Aguilar, Status: Pen, Time: 1:40 PM [facility] Work Phone: Start: 09-18-2021 [id number], Provider: Bisi Prabhakar, Status: Pen, Time: 10:00 AM [id number], Provider: Bisi Prabhakar, Status: Pen, Time: 10:00 AM [facility] Work Phone: Start: 09-06-2021 [id number], Provider: Bisi Prabhakar, Status: Pen, Time: 8:00 AM [id number], Provider: Bisi Prabhakar, Status: Pen, Time: 8:00 AM [facility] Work Phone: Start: 08-02-2021 FUV, Provider: Luz Aguilar, Status: Pen, Time: 8:20 AM FUV, Provider: Luz Aguilar, Status: Pen, Time: 8:20 AM [facility] Work Phone: Start: 06-21-2021 NPV, Provider: Luz Aguilar, Status: Pen, Time: 8:00 AM NPV, Provider: Luz Aguilar, Status: Pen, Time: 8:00 AM [facility] Work Phone: Start: 03-27-2021 COVID-19 VACCINE (3 - Booster for Pfizer series) COVID-19 VACCINE (3 - Booster for Pfizer series) [facility] Start: 12-20-2020 COVID-19 Vaccine (3 - Pfizer series) COVID-19 Vaccine (3 - Pfizer series) [facility] Start: 01-09-2020 FFD mammogram Breast screening Mamm - Ultrasound of Breast [id number] 200 Work Phone: Start: 10-26-2017 HPV TESTING HPV TESTING [facility] Start: 10-26-2009 DTaP/Tdap/Td Vaccine s (1 - Tdap) DTaP/Tdap/Td Vaccines (1 - Tdap) [facility] Start: 10-26-2008 PAP TESTING PAP TESTING [facility] Start: 10-26-2008 Screening for malignant neoplasm of cervix [facility] Start: 10-26-2006 Hepatitis B Vaccine (1 of 3 - 19+ 3-dose series) Hepatitis B Vaccine (1 of 3 - 19+ 3-dose series) [facility] Start: 10-26-2006 Hepatitis B Vaccines (1 of 3 - 19+ 3-dose series) Hepatitis B Vaccines (1 of 3 - 19+ 3-dose series) [facility] Start: 10-26-2006 Urine microalbumin profile [facility] Start: 10-26-2005 HEPATITIS C SCREENING HEPATITIS C [facility] Start: 10-26-2005 Hepatitis C screening Hepatitis C [place] Start: 10-26-2005 HIV SCREENING HIV SCREENING [facility] Start: 10-26-2005 HIV screening HIV Screening [facility] Start: 10-26-2000 Varicella vaccination Varicell a Vaccines (1 of 2 - 13+ 2-dose series) [facility] Start: 1999 Adult depression screening assessment DEPRESSION SCREENING [facility] Start: 10-26-1988 MMR Vaccines (1 of 1 - Standard series) MMR Vaccines (1 of 1 - Standard series) [facility] Start: 10-26-1988 Varicella vaccination Varicell a Vaccines (1 of 2 - 2-dose childhood series) [facility] Start: 1987 HEPATITIS B (1 of 3 - 3-dose series) HEPATITIS B (1 of 3 - 3-dose series) [facility] Start: 1987 Hepatitis B Vaccines (1 of 3 - 3-dose series) Hepatitis B Vaccines (1 of 3 - 3-dose series) [facility] Start: 1987 HIV screening HIV Screening [facility] Start: 1987 Yearly Adult Physical Yearly Adult P hysical [facility] [id number] e 200 Work Phone: NEGATED: Highlighted row has been ruled out! Planned Goals not documented [id number]-[id number] 200 Work Phone: Immunizations Immunization Date Immunization Notes Care Provider Elina flores 10-25-2020 Pfizer-BioNTech COVI D-19 Vacc 30 MCG/0.3ML Intramuscular Suspension Rafaela Arguello Work Phone: [id number]-[id number] 200 Work Phone: 10-04-2020 Pfizer-BioNTech COVI D-19 Vacc 30 MCG/0.3ML Intramuscular Suspension Rafaela Arguello Work Phone: [id number]-[id number] 200 Work Phone: Payers Date Payer Category Payer Self-pay [id number] [phone] [id number] 2022 Managed Care (Private) [facility] [id number] 2022 Private [facility] Insurance [place] [place] [id number] 2020 Unknown 1987 Unknown [id number] 2.16.840.1.222440.3.579.2. 593 1987 Unknown [id number] 2.16.840.1.340100.3.579.2. 593 1987 Unknown [id number] 2.16.840.1.837133.3.579.2. 593 1987 Unknown [id number] 2..840.1.570849.3.579.2. 593 1987 Unknown [id number] 2.16.840.1.292243.3.579.2. 593 1987 Unknown [id number] 2.840.1.663032.3.579.2. 356 1987 Unknown [id number] 2.840.1.078408.3.579.2. 356 1987 Unknown [id number] 2.840.1.409599.3.579.2. 356 1987 Unknown [id number] 2.840.1.270390.3.579.2. 356 1987 Unknown [id number] 2.840.1.339830.3.579.2. 356 1987 Unknown [id number] 2.840.1.616249.3.579.2. 1244 1987 Unknown [id number] 2.840.1.168652.3.579.2. 124 1987 Unknown [id number] 2.840.1.180457.3.579.2. 1244 1987 Unknown [id number] 2.840.1.591157.3.579.2. 1243 1987 Unknown [id number] 2.16840.1.152128.3.579.2. 1244 1987 Unknown [id number] 2.840.1.972965.3.579.2. 1259 1987 Unknown [id number] 2.16.840.1.105902.3.579.2. 1259 1987 Unknown [id number] 2.16.840.1.233986.3.579.2. 1243 1987 Unknown [id number] 2.16.840.1.689944.3.579.2. 1243 1987 Unknown [id number] 2.16.840.1.575852.3.579.2. 1243 1959 Unknown [id number] Unknown [id number] 2.16.840.1.183866.3.579.2. 531 Social History Date Type Detail Facility Assertion Tobacco smoking consumption unknown (finding) [id number] Work Phone: Start: 12-03-2022 End: 07-22-2023 Non-smoker Non-smoker [facility] Start: 02-19-2023 End: 09-05-2023 Tobacco smoking status OKIS Never smoked tobacco [facility] Start: 10-17-2021 End: 09-01-2023 Alcohol intake Current drinker of alcohol (finding) [facility] Start: 05-14-2010 History SDOH Alcohol Comment occasional [facility] Start: 1987 Sex Assigned At Not on file C [facility] Start: 1987 Sex Assigned At Female F [facility] Start: 12-03-2022 End: 07-22-2023 Sex Assigned At [facility] Tobacco smoking stat us NHIS Tobacco smoking consumption unknown [facility] Start: 12-09-2022 End: 01-05-2024 Exposure to SARS-CoV-2 (event) Not sure [facility] Start: 02-19-2023 Tobacco use and exposure Smokeless tobacco non-user [facility] Work Phone: Start: 02-19-2023 End: 01-05-2024 Alcohol intake Defer [facility] Work Phone: National Score (1-100), lower number is lower risk 52 [facility] Functional Status Date Assessment Result Facility NEGATED: Highlighted row Functional performance Functional status health issues are not documented Disease [id number] Work Phone: Mental Status Date Assessment Result Facility NEGATED: Highlighted row Cognitive function [Interpretation] Cognitive status health issues are not documented Disease [id number]-[id number] [facility] Work Phone: Clinical Notes 03-04-2012 to 01-05-2024 Maryann Leal - 01/05/2024 11:45 AM EDTPatient Roula Kaplan APRN.CNP - 09/01/2023 11:20 AM Miri Lee MD - 07/22/2023 3:15 PM EDT Note Date & Type Note Facility 01-05-2024 History of Present illness Narrative Subjective Patient ID: Michael Weller is a 38 y.o. female. They present today with a chief complaint of UTI (2 days). History of Present Illness HPI Patient describes her symptoms as odor in her urine, frequency and slight dysuria. No STI concerns. Patient states she did not take Azo but has some at home. Patient states she gets frequent UTIs. Past Medical History Allergies as of 01/05/2024 - Reviewed 01/05/2024 Allergen Reaction Noted Cat dander Itching 11/28/2022 Cat hair standardized allergenic extract Itching 11/28/2022 Latex Rash 08/28/2022 Loracarbef Unknown 08/28/2022 Nsaids (non-steroidal anti-inflammatory drug) Other 06/10/2016 (Not in a hospital admission) Past Medical History: Diagnosis Date Personal history [...] reports that she does not use drugs. Review of Systems Review of Systems Objective Vitals: 01/05/24 1151 BP: 119/76 Pulse: 74 Resp: 18 Temp: 36.8 C (98.2 F) SpO2: 98% Weight: 83 kg (183 lb) No LMP recorded. Physical Exam Constitutional: Vital signs reviewed. Well developed and well nourished. Patient alert and without distress. Abdomen: Normal bowel sounds. Non-distended, soft, mild left suprapubic tenderness without rebound or guarding. Bladder is nondistended. Negative CVA tenderness. Neurologic: Cortical function: Normal Lymphatic: Palpation of lymph nodes in groin: Normal. Procedures Point of Care Test & Imaging Results from this visit Results for orders placed or performed in visit on 01/05/24 POCT UA Automated manually resulted Result Value Ref Range POC Color, Urine Yellow Straw, Yellow, Light-Yellow POC Appearance, Urine Cloudy (A) Clear POC Glucose, Urine NEGATIVE NEGATIVE mg/dl POC Bilirubin, Urine NEGATIVE NEGATIVE POC Ketones, Urine NEGATIVE NEGATIVE mg/dl POC Specific [place], Urine 1.010 1.005 - 1.035 POC Blood, Urine NEGATIVE NEGATIVE POC PH, Urine 7.5 No Reference Range Established PH POC Protein, Urine NEGATIVE NEGATIVE, 30 (1+) mg/dl POC Urobilinogen, Urine 0.2 0.2, 1.0 EU/DL Poc Nitrite, Urine POSITIVE (A) NEGATIVE POC Leukocytes, Urine SMALL (1+) (A) NEGATIVE POCT , urine manually resulted Result Value Ref Range Preg Test, Ur Negative Negative No results found. Diagnostic study results (if any) were reviewed by Maryann Leal. Assessment/Plan Allergies, medications, history, and pertinent labs/EKGs/Imaging reviewed by Maryann Leal. Medical Decision Making No signs of acute pyelonephritis, Macrobid prescribed. She will take Azo [id number], acetaminophen, fluids, etc. Follow-up as needed. Patient declined urine culture after counseling. Orders and Diagnoses Diagnoses and all orders for this visit: Acute lower UTI - nitrofurantoin, macrocrystal-monohydrate, (Macrobid) 100 mg capsule; Take 1 capsule (100 mg) by mouth 2 times a day for 7 days. Urine frequency - POCT UA Automated manually resulted - POCT , urine manually resulted Medical Admin Record Patient disposition: Home documented in this encounter [facility] Work Phone: 01-05-2024 Instructions Maryann Leal - 01/05/2024 11:45 AM EDT No signs of acute pyelonephritis, Macrobid prescribed. She will take Azo rzjd-ipi-fqxwrpp, acetaminophen, fluids, etc. Follow-up as needed. Patient declined urine culture after counseling. documented in this encounter [facility] Work Phone: 09-01-2023 Note HNO ID: [id number] Author: ROULA BLEDSOE APRN.TECHNOLOGY DIRECTOR Service: ? Author Type: Nurse Practitioner Type: [...] Past Histories independently gathered by the clinical production support supervisor and the remaining scribed note accurately describes my personal service to the patient. Roula Bledsoe APRN.MARCELINA September 01, 2023 11:26 AM Medical Decision Making: Problems: Moderate: 2+ stable chronic illnesses Risk: Low: Low risk from testing/treatment Medical Decision Making Level: 3 - Low [facility] 09-01-2023 History of Present illness Narrative SKIN [...] Past Histories independently gathered by the clinical production support supervisor and the remaining scribed note accurately describes my personal service to the patient. Roula Bledsoe APRN.MARCELINA September 01, 2023 11:26 AM Medical Decision Making: Problems: Moderate: 2+ stable chronic illnesses Risk: Low: Low risk from testing/treatment Medical Decision Making Level: 3 - Low documented in this encounter [facility] 07-22-2023 History of Present illness Narrative Michael [...] 07/22/2023 3:01 PM documented in this encounter [facility] Work Phone: 04-27-2023 History of Present illness [...] 04/27/2023 4:18 PM documented in this encounter [facility] Work Phone: 03-04-2023 History of Present illness [...] Karolina Man DO documented in this encounter [facility] Work Phone: 02-19-2023 History of Present illness Narrative Michael Weller 37 y.o. SUBJECTIVE HPI Michael 37-year-old young lady who was seen today for evaluation of a possible attention deficit disorder difficulty at work at home. 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 Signatures Electronically signed by : Bisi Prabhakar PT T [facility]; Oct 16 2022 10:12AM EST (Author) [facility] 07-02-2022 Evaluation note Encounter Date Diagnosis Assessment [...] no improvement of pain. Given return precautions. [employer] Other 12-05-2022 Chief complaint Narrative - Reported* [...] anxiety follow up [address] 200 Work Phone: 1(416) 199-312408-11-2022 History of Present illness Narrative* Roula Ayesha, AUTOMATIC FABRIC CUTTER.TECHNOLOGY DIRECTOR - 10/17/2021 12:40 PM EDT SKIN EXAM [...] Past Histories independently gathered by the clinical production support supervisor and the remaining scribed note accurately describes my personal service to the patient. Roula Bledsoe APRN.CNP October 17, 2021 1:05 PM I spent a total of 15 minutes on the date of the service which included preparing to see the patient, xxnz-wo-evol patient care, completing clinical documentation, performing a medically appropriate examination, and counseling and educating the patient/family/caregiver. [facility] History of Present illness Narrative* MICHAEL WELLER [...] breast biopsy: right breast biopsy 2018 at [facility]- fibroepithelial lesion consistent with fibroadenoma * - breast surgery: no * - breast cancer:no * Menarche: 15 * AFLB: 22 * Menopause: no * HRT:no * Family history: both grandfathers with lung cancer * no history of breast or ovarian cancer [employer] [employer] Work Phone: [phone]) [phone] History of Present illness Narrative* MICHAEL WELLER [...] breast biopsy: right breast biopsy 2018 at [facility]- fibroepithelial lesion consistent with fibroadenoma * - breast surgery: no * - breast cancer:no * Menarche: 15 * AFLB: 22 * Menopause: no * HRT:no * Family history: both grandfathers with lung cancer * no history of breast or ovarian cancer [facility] Work Phone: 1([phone]) [phone] Chief complaint Narrative - Reported* An interactive [...] visit to discuss insomnia, trazodone not helping [facility] 200 Work Phone: 1(856) 803-934208-02-2022 Chief complaint Narrative - Reported* An interactive [...] visit to discuss insomnia, trazodone not helping [facility] Work Phone: 1(230) [phone] [place]The [place], [place] NAME: MICHAEL WELLER DATE OF : MEDICAL REC#: [id number] RESOURCE MANAGER FORESTER: [id number] DATE: 07/12/2021 09:46:00 ASSISTANT FOREMAN DATE: 07/13/2021 21:00 DICTATING PHYSICIAN: MATT STAPLETON DICTATION DATE: 07/12/2021 12:00 OPERATIVE NOTE OPERATION DATE: 07/12/2021 PROCEDURE: Diagnostic laparoscopy. PREOPERATIVE DIAGNOSIS: Dyspareunia. POSTOPERATIVE DIAGNOSIS: Dyspareunia. ANESTHESIA: General. SURGEON: Matt Stapleton D.O. COLLEGE SERVICE OFFICER: CLIFF Durán URINE OUTPUT: Yellow and clear. [...] Approved by: DR MATT STAPLETON . 07/15/2021 15:07:00[facility]12-27-2012 History general Narrative - Reported* Type Description Date Medical History 03-04-12 [place] [facility] [place] History left hip surgery Surgical History tonsillectomy and adenoidectomy Surgical History cholecystectomy Surgical History wisdom teeth Surgical History tumor [employer] Other Evaluation note* Diagnosis Lentigines- Primary Other dyschromia Multiple benign nevi Benign neoplasm of skin, site unspecified Becerril angioma Nevus, non-neoplastic Exposure to tanning bed, sequela Hx of malignant melanoma Personal history of malignant melanoma of skin Dermatofibroma Benign neoplasm of skin, site unspecified [facility] Work Phone: Evaluation note* Diagnosis Abnormal mammogram Abnormal mammogram, unspecified documented in this encounter [facility] Work Phone: Evaluation note* Diagnosis Lump in female breast Lump or mass in breast documented in this encounter [facility] Work Phone: Evaluation note* Diagnosis Encephalopathy- Primary Unspecified encephalopathy Anxiety Anxiety state, unspecified Attention deficit hyperactivity disorder (ADHD), predominantly inattentive type documented in this encounter [facility] Work Phone: Evaluation note* Diagnosis Anxiety Anxiety state, unspecified documented in this encounter [facility] Work Phone: Evaluation note* Diagnosis Encephalopathy- Primary Unspecified encephalopathy Attention deficit hyperactivity disorder (ADHD), 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, unspecified Anxiety Anxiety state, unspecified documented in this encounter [facility] Work Phone: Evaluation note* Diagnosis Dermatofibroma- Primary Benign neoplasm of skin, site unspecified Lentigines Other dyschromia Multiple benign nevi Benign neoplasm of skin, site unspecified Becerril angioma Nevus, non-neoplastic Hx of malignant melanoma Personal history of malignant melanoma of skin [facility] Diagnosis Onset Date Resolution Status UTI (urinary tract infection) acute [facility] Work Phone: Evaluation note* Diagnosis Acute lower UTI- Primary Urinary tract infection, site not specified Urine frequency documented in this encounter [facility] Work Phone: History of Present [...] area gets bumped. 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 [...] for walks, read books. No regular exercise. [employer] Work Phone: History of Present illness Narrative* [...] area gets bumped. 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 [...] for walks, read books. No regular exercise. [facility] Work Phone: History of Present illness Narrative* [...] area gets bumped. 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 [...] for walks, read books. No regular exercise. [id number]-YDIT-Pbfwissh 200 Work Phone: History of Present illness [...] discharge from lumps. 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 [...] past, but this made her sleep worse. OU-IOKH-Dhmlixso 200 Work Phone: History of Present illness [...] discharge from lumps. 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 [...] past, but this made her sleep worse. [facility] Work Phone: History of Present illness Narrative* Patient presents to clinic with complaints of pain during sex and mild Ricardo. Her assessment was significant for mild strength deficits and decreased movement of her pelvic floor. Patient will benefit from skilled PT to address these impairments. * Clinical Presentation: Stable and/or uncomplicated characteristics. * Level of Complexity: low [facility] Work Phone: History of Present illness [...] urology for painful intercourse. Planning physical therapy. GN-VDIZ-Jomkakhv 200 Work Phone: History of Present illness [...] urology for painful intercourse. Planning physical therapy. [facility] Work Phone: History of Present illness Narrative* [...] been able to have these done yet. BH-CXNG-Huippehn 200 Work Phone: Instructions* Name Dates Details Instructions not documented YR-Gufduaqufomfvi-Ojzalvfu Work Phone: Family History Unknown Family Member Name Dates Details No [...] massright breast mass Summary Purpose Advance Directives Advance Directive Response Recorded Date/ Time Advance Directives No October 09 019 2:01pm Chief Complaint and Reason for Visit Chief Complaint Health Screening Chief Complaint foot pain Chief Complaint possible uti Reason for Visit UTI (urinary tract i nfection) Reason for Referral Specialty Diagnoses / Procedures Referred By Contac t Referred To Contact Radiology Diagnoses Lump in female breast Procedures [place] [id number] [facility] [address] [id number] Referral ID Status Reason Start Date Expiration Date Visits Requested Visits Authorized [id number] Pending Review Perform Procedure 3 06/17/2023 1 1 Additional Source Comments INFORMATION SOURCE (unrecogn ized section and content) DATE CREATED AUTHOR 07/19/2021 [facility] DATE CREATED AUTHOR AUTHOR'S ORGANIZ ATION 10/16/2021 [facility] DATE CREATED AUTHOR AUTHOR'S ORGANIZ ATION 03/02/2022 [facility] DATE CREATED AUTHOR AUTHOR'S ORGANIZ ATION 10/17/2022 [employer] DATE CREATED AUTHOR AUTHOR'S ORGANIZ ATION 12/11/2022 [facility] DATE CREATED AUTHOR AUTHOR'S ORGANIZ ATION 07/25/2023 [facility] DATE CREATED AUTHOR AUTHOR'S ORGANIZ ATION 09/03/2023 [facility] DATE CREATED AUTHOR AUTHOR'S ORGANIZ ATION 09/07/2023 [facility] DATE CREATED AUTHOR AUTHOR'S ORGANIZ ATION 10/21/2023 [facility] EPIC DATE CREATED AUTHOR AUTHOR'S ORGANIZ ATION 11/14/2023 [facility] DATE CREATED AUTHOR AUTHOR'S ORGANIZ ATION 01/06/2024 Urgent Care Reason for Visit (unrecogniz ed section and content) Reason Comments Full Body Skin Check Specialty Diagnoses / Procedures Referred By Contac t Referred To Contact Radiology Diagnoses Abnormal mammogram Procedures BI mammo bilateral diagnostic tomosynthesis BI [place] [id number] [facility] [address] [place] [address] Referral ID Status Reason Start Date Expiration Date Visits Requested Visits Authorized [id number] Pending Review Perform Procedure 12/03/2022 06/01/2023 1 1 Specialty Diagnoses / Procedures Referred By Contac t Referred To Contact Radiology Diagnoses Lump in female breast Procedures [place] [address] [place] [facility] [address] [place] [address] Referral ID Status Reason Start Date Expiration Date Visits Requested Visits Authorized [id number] Pending Review Perform Procedure 3 06/17/2023 1 1 Reason Comments New Patient Visit NPV- ADHD Specialty Diagnoses / Procedures Referred By Contac t Referred To Contact Neurology Diagnoses Anxiety Procedures NH OFFICE/OUTPATIENT NEW HIGH MDM 60-74 MINUTES Karolina Man, [address] [facility] [address] [place] [address] Jhonny Lee MD [address] [facility], [address] [place] [address] Referral ID Status Reason Start Date Expiration Date Visits Requested Visits Authorized [id number] Pending Review Specialty Services Required 12/03/2022 06/01/2023 1 1 Reason Comments Follow-up 3 month FU. Reason Comments Encephalopathy FU. Reason Comments UTI 2 days Source Comments (unrecognize d section and content) In the event this informatio n is protected by the Federal Confidentiality of Alcohol and Drug Abuse Patient Records regulations: The Federal rules restrict any use of the information to criminally investigate or prosecute any alcohol or drug abuse patient.[facility] the event this information is protected by the Federal Confidentiality of Alcohol and Drug Abuse Patient Records regulations: The Federal rules restrict any use of the information to criminally investigate or prosecute any alcohol or drug abuse patient.[facility] Care Teams (unrecognized sec tion and content) Sales Representative [employer] Supp[employer] Relationship Specialty Start Date End Date Danielle Infante [address] [facility] [address] [place] [address] PCP - General Family Practice 06/10/16 Team Status: Inactive Member Role Status Dates Danielle Infante DO Primary Care Provider Active Kp Alvares DO [facility] Attending Provider Active Team Status: Active Member Role Status Dates Danielle Infante DO Primary Care Provider Active Team Status: Inactive Member Role Status Dates Danielle Infante DO Primary Care Provider Active Bolivar Sherman , ASHLY-C Attending Provider Activ e Sales Representative [employer] Relationship Specialty [place] [address] [facility] [address] [place] [address] PCP - General Family Medicine 10/29/22 Sales Representative [employer] Relationship Specialty [place] [address] [facility] [address] [place] [address] PCP - General Family Medicine 10/29/22 Sales Representative [employer] Relationship Specialty [place] [address] [facility] [address] [place] [address] PCP - General Family Medicine 10/29/22 Sales Representative [employer] Relationship Specialty [place] [address] [facility] [address] [place] [address] PCP - General Family Medicine 10/29/22 Jhonny Lee MD [address] [facility], [address] [address] Consulting Physician Neurology 02/19/23 Sales Representative [employer] Relationship Specialty [place] [address] [address] PCP - General Family Medicine 10/29/22 Jhonny Lee MD [address] [facility], [address] [address] Consulting Physician Neurology 02/19/23 Sales Representative [employer] Relationship Specialty [place] [address] [address] PCP - General Family Medicine 10/29/22 [place] [address] [address] PCP - MMO ACO PCP 03/09/23 Jhonny Lee MD [address] [facility], [address] [address] Consulting Physician Neurology 02/19/23 Sales Representative [employer] Relationship Specialty Start Date End Date Danielle Infante DO [address] [address] PCP - General Family Medicine 06/10/16 Team [...] September 05, 2023 End: September 05, 2023 Sales Representative [employer] Relationship Specialty Start Date End Date Jhonny Lee MD [address] [facility], [address] [place] [address] Consulting Physician Neurology 02/19/23 Sales Representative [employer] Relationship Specialty Start Date End Date Danielle Infante DO [address] [place] [address] PCP - General Family Medicine 07/15/22 Goals (unrecognized section and content) Goals may [...] BE BASED ON THE PRIMARY CLINICAL RECORDS. [facility] [employer] provides no warranty or guarantee of the accuracy or completeness of information in this document.
== END 2024-01-29 16:02 | disposition home or self-care (01) ==
LOC: US 16:01
PROVIDERS: Visit Provider Obstetrics & Gynecology
DX: R10.9 Unspecified abdominal pain (principal); Z87.59 Personal history of other complications of pregnancy, childbirth and the puerperium; Z3A.01 Less than 8 weeks gestation of pregnancy; N92.6 Irregular menstruation, unspecified
CPT/HCPCS: 76817

== ENCOUNTER 2024-02-09 09:01 | Outpatient (OUT) | payer OTHER, SELFPAY ==
--- NOTE | 2024-02-09 09:05 | US_ITS ---
[address] [address] Patient Name: MICHAEL ROQUE MRN: [id number] date: 1985 Sex: F Assigned Patient Location: [facility] Current Patient Location: [facility] Accession/Order Number: [id number] Exam Date: 02/09/2024 09:06 Report Date: 02/09/2024 10:09 At the request of: NEISHA PETERSON Procedure: US OB transvaginal EXAMINATION: US OB transvaginal HISTORY: VIABILITY COMPARISON: 01/29/2024 FINDINGS: Transvaginal images George intrauterine gestation Gestational sac: Normal morphology. 2.67 cm, 7 weeks 3 days CRL: 6.4 mm, 6 weeks 3 days Yolk sac: 3.7 mm Heart rate: 144 minute Cervix: Closed, 3.8 cm The uterus is normal, anteverted, anteflexed The ovaries are normal. Clinical age: 7 weeks 4 days Clinical AMALIA: 09/23/2024 Ultrasound age: 6 weeks 3 days Ultrasound AMALIA: 10/01/2024 US/US OB transvaginal IMPRESSION: Viable single intrauterine gestation measuring 6 weeks 3 days Electronically authenticated by: TREMAYNE OHARA Date: 02/09/2024 10:09
--- OUTSIDE RECORDS SUMMARY | 2024-02-09 09:17 | XMS_ITS | CCD ---
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 [...] Unavailable DO Danielle Infante Primary Care Provider [phone] SCOTT Sherman Attending Provider Karolina Man DO Primary Care Provider [phone] Jhonny Issa MD Unavailable Donovan SORIA, Karolina Cota Unavailable KAROLINA MAN Attending Unavailable KAROLINA MAN Primary Care Unavailable JHONNY ISSA Attending Unavailable KAROLINA MAN Referring Unavailable KAROLINA MAN Primary Care Unavailable KAROLINA MAN Attending Unavailable KAROLINA MAN Primary Care Unavailable JHONNY ISSA Attending Unavailable KAROLINA MAN Primary Care Unavailable JHONNY ISSA Attending Unavailable KAROLINA MAN Primary Care Unavailable Danielle Infante DO Primary Care Provid er ROULA BLEDSOE Attending Unavailable DANIELLE INFANTE Primary Care LAYNE Reyes Attending Provider [phone] NO FAMILY, PHYSICIAN Primary Care Unavailable Swetha Andersen Attending Unavailable Swetha Andersen Admitting Unavailable MATT STAPLETON Attending Unavailable MATT STAPLETON Attending Unavailable KAROLINA MAN Referring Unavailable KAROLINA MAN Primary Care Unavailable KAROLINA MAN Referring Unavailable KAROLINA MAN Primary Care Unavailable MARYANN DAVISON Attending Unava ilable Danielle Infante DO Primary Care Provider Allergies Allergy Classification Reported Allergen(s) Allergy Type Date of Onset Reaction(s) Facility Cephalosporins (antibiotic) (1 source) loracarbef Drug Allergy [facility] Work Phone: Latex (1 source) natural latex rubber Substance Allergy [facility] Work Phone: NSAIDs (1 source) NSAIDs Drug Allergy [facility] Work Phone: (20 sources) loracarbef; Translations: [loracarbef] Drug Allergy 08-29-19 23 Unknown [id number] Work Phone: (20 sources) natural latex rubber; Translations: [LATEX] Allergy to substance (finding) 08-29-19 [place] [address] Repository (20 sources) NSAIDs; Translations: [NSAIDs] Allergy to drug (finding) Unknown [id number] Work Phone: (20 sources) Animal dander - Cats Allergy to substance (finding) [id number]-ENBE-Bctv [facility] Work Phone: (2 sources) Latex Drug allergy (disorder) [facility] Repository (1 source) loracarbef Drug Allergy [facility] Repository (5 sources) NSAIDs; Translations: [NSAIDS (NON-STEROIDAL ANTI-INFLAMMATOR Y DRUG)] Drug allergy (disorder) 06-11-19 17 [facility] Repository (7 sources) Non-steroidal anti-inflammator y agent Propensity to adverse reactions to drug 06-11-19 Other: See Comments, Other [facility] (8 sources) Latex Propensity to adverse reactions 08-29-19 Unknown, Rash [employer] Other (10 sources) Cat Dander; Translations: [CAT DANDER] Allergy to substance 11-29-19 23 Unknown, Itching [facility] (3 sources) NSAIDS (Non-Steroidal Anti-Inflamma; Translations: [NSAIDS (Non-Steroidal Anti-Inflamma] Allergy to substance 09-05-19 Itching [facility] (1 source) Latex Drug allergy (disorder) 09-05-19 [facility] Repository (3 sources) CAT HAIR STANDARDIZED ALLERGENIC EXTRACT; Translations: [CAT HAIR STANDARDIZED ALLERGENIC EXTRACT] Propensity to adverse reactions to drug (disorder) 11-29-19 Itching [facility] Repository (2 sources) Latex Allergy to substance 08-29-19 Rash [facility] Healthcare (2 sources) Non-steroidal anti-inflammator y agent Drug Allergy 06-11-19 Other, Unknown, Itching [facility] Healthcare (2 sources) Cat Hair Extract Allergy to substance 11-29-19 Itching [facility] Medications Current Medications Medication Drug Class(es) Dates [...] 7 Jun, Active Progesterone 200 MG suppository (2 sources) Start: 01-26-2024 End: 02-25-2024 Progesterone 200 MG [...] 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 Chronic Esophageal disorders (8 sources) Gastroesophageal reflux disease; Translations: [Gastro-esophageal reflux [...] melanin hyperpigmentation] Episodic Other upper respiratory disease (7 sources) Chronic nasopharyngitis; Translations: [Chronic nasopharyngitis] Onset: [...] 11-28-2022 Episodic Diseases of mouth; excluding dental (7 sources) Sialoadenitis; Translations: [Sialoadenitis, unspecified] Onset: 08-28-2022 [...] Test Name Value Interpretation Reference Range Facility [facility] PREG QUANT HCGon 024 HCG QUANTITATIVE 65312 mIU/mL [facility] Comment on above: 5-50 0.2-1 WEEK 50-500 1-2 WEEKS 100-5,000 2-3 WEEKS 500-10,000 3-4 WEEKS 1,000-50,000 4-5 WEEKS 10,000-100,000 5-6 WEEKS 15,000-200,000 6-8 WEEKS 10,000-100,000 2-3 MONTHS [facility] PREG QUANT HCGon 024 HCG QUANTITATIVE 5650 mIU/mL [facility] Comment on above: 5-50 0.2-1 WEEK 50-500 1-2 WEEKS 100-5,000 2-3 WEEKS 500-10,000 3-4 WEEKS 1,000-50,000 4-5 WEEKS 10,000-100,000 5-6 WEEKS 15,000-200,000 6-8 WEEKS 10,000-100,000 2-3 MONTHS [facility] HCG ( test) Ql (U)o n 01-05-2024 Interpretation and review of laboratory results Normal [facility] Work Phone: Preg Test, Ur Negative Negative [facility] Work Phone: [facility] Work Phone: POCT UA Automated manually r esultedon 01-05-2024 Appearance (U) Cloudy Abnormal Clear [facility] Work Phone: Glucose Test strip (U) [Mass/Vol] Negative NEGATIVE mg/dl [facility] Work Phone: Hemoglobin Ql (U) Negative NEGATIVE [facility] Work Phone: Interpretation and review of laboratory results Abnormal [facility] Work Phone: Leukocyte esterase Test strip Ql (U) SMALL (1+) Abnormal NEGATIVE [facility] Work Phone: Nitrite Ql (U) Positive Abnormal NEGATIVE [facility] Work Phone: pH (U) 7.5 [pH] No Reference Range Established [facility] Work Phone: POC Bilirubin, Urine Negative NEGATIVE Univ [facility] Work Phone: POC Color, Urine Yellow Straw, [place] ow, Light-Yellow [facility] Work Phone: POC Ketones, Urine Negative NEGATIVE mg/dl Un [facility] Work Phone: POC Protein, Urine Negative NEGATIVE, 30 (1+) mg/dl [facility] Work Phone: POC Specific [place], Urine 1.010 1.005 - 1.035 [facility] Work Phone: POC Urobilinogen, Urine 0.2 0.2, 1.0 EU/DL [facility] Work Phone: [facility] Work Phone: Urine Cultureon 09-05-2023 Bacteria identified Cx Nom (U) <9,000 colonies/ml mixed bacterial skin contaminants 2 Days PERFORMED BY: [place] [address] PATHOLOGIST LUMP RECEIVER DAVID CHILD M.D. Normal [facility] Comment on above: Performed By: #### C UU #### [address] CNOVon 09-01-2023 CNOV Office Visit (AMDERM ) MICHAEL WELLER ([id number]) 1985 F Date Time Provider Department 09/01/23 11:30 AM ROULA BLEDSOE AMDERM During your visit today, we recorded the following information about you: Roula Bledsoe APRN.[facility] 09/01/2023 11:42 AM Signed SKIN EXAM ESTABLISHED [...] symmetric hyperpigmented macules and papules throughout [place] red papules throughout A/P: (D23.9) Dermatofibroma - [...] Past Histories independently gathered by the clinical support clerk and the remaining scribed note accurately describes [...] Visit Diagnoses:Lentigines [L81.4] Multiple benign nevi [D22.9] Valles angioma [D18.01] Hx of malignant melanoma [Z85.820] Prescriptions as of 09/01/2023 - buPROPion XL (WELLBUTRIN XL) 150 mg 24 hr tablet TAKE 1 TABLET BY MOUTH ONCE DAILY IN THE MORNING. DO NOT CRUSH, CHEW, OR SPLIT. - dexmethylphenidate (more content not included)... Normal [facility] Drugs of abuse screen W Refl ex confirm panel (U)on 02-19-2023 Amphetamines Screen Ql (U) Negative Normal Presumptive Negative [facility] Comment on above: Order Comment: Drug [...] By: #### 8 7428-9 #### ALEJANDRO RAMOS ([id number]) [facility] ([facility]) [address] [place] [address] Barbiturates Screen Ql (U) Negative Normal Presumptive Negative [facility] Comment on above: Order Comment: Drug [...] By: #### 8 7428-9 #### ALEJANDRO RAMOS ([id number]) [facility] ([facility]) [address] [place] [address] Benzodiazepines Ql (U) Negative Normal Presumptive Negative [facility] Comment on above: Order Comment: Drug [...] Performed By: #### 8 7428-9 #### [facility] ([id number]) [facility] ([facility]) [address] [place] [address] Benzoylecgonine Screen Ql (U) Negative Normal Presumptive Negative [facility] Comment on above: Order Comment: Drug [...] NG/ML Performed By: #### 8 7428-9 #### ANAIBELIMERLINE RAMOS ([id number]) [facility] ([facility]) [address] [place] [address] Cannabinoids Screen Ql (U) Negative Normal Presumptive Negative [facility] Comment on above: Order Comment: Drug [...] By: #### 8 7428-9 #### ALEJANDRO RAMOS ([id number]) [facility] ([facility]) [address] [place] [address] fentaNYL+Norfentanyl Screen Ql (U) Negative Normal Presumptive Negative [facility] Comment on above: Order Comment: Drug [...] By: #### 8 7428-9 #### ALEJANDRO RAMOS ([id number]) [facility] ([facility]) [address] [place] [address] Opiates Screen Ql (U) Negative Normal Presum ptive Negative [facility] Comment on above: Order Comment: Drug [...] By: #### 8 7428-9 #### ALEJANDRO RAMOS ([id number]) [facility] ([facility]) [address] [place] [address] oxyCODONE+oxyMORphone Screen Ql (U) Negative Normal Presumptive Negative [facility] Comment on above: Order Comment: Drug [...] By: #### 8 7428-9 #### ALEJANDRO RAMOS ([id number]) [facility] ([facility] [address] [place] [address] Phencyclidine Ql (U) Negative Normal Presump tive Negative [facility] Comment on above: Order Comment: Drug [...] By: #### 8 7428-9 #### ALEJANDRO RAMOS ([id number]) [facility] ([facility]) [address] [place] [address] BI MAMMO BILATERAL DIAGNOSTI C TOMOSYNTHESISon 12-19-2022 BI MAMMO BILATERAL DIAGNOSTIC TOMOSYNTHESIS Interpreted By: Mohan Romano and Avery Ross STUDY: BI MAMMO BILATERAL DIAGNOSTIC TOMOSYNTHESIS; BI US BREAST LIMITED LEFT; 12/19/2022 9:42 am; 12/19/2022 10:52 am ACCESSION NUMBER(S): [id number]; [id number] ORDERING CLINICIAN: KAROLINA MAN INDICATION: Annual screening [...] axillary abnormality was performed by a registered gas cutting machine operator. No sonographic abnormalities are seen in [...] any future breast imaging appointments, please call [phone] ([phone]). MACRO: None Signed by: Mohan Romano 12/19/2022 11:32 AM Dictation workstation: [id number] [facility] BI US BREAST LIMITED LEFTon 12-19-2022 BI US BREAST LIMITED LEFT Interpreted By: Mohan Romano, and Jakob Wei STUDY: BI MAMMO BILATERAL DIAGNOSTIC TOMOSYNTHESIS; BI US BREAST LIMITED LEFT; 12/19/2022 9:42 am; 12/19/2022 10:52 am ACCESSION NUMBER(S): [id number]; [id number] ORDERING CLINICIAN: KAROLINA MAN INDICATION: Annual screening [...] axillary abnormality was performed by a registered gas cutting machine operator. No sonographic abnormalities are seen in [...] any future breast imaging appointments, please call [phone] ([phone]). MACRO: None Signed by: Mohan Romano 12/19/2022 11:32 AM Dictation workstation: [id number] [facility] DBT Breast - bilateral diagn osticon 12-19-2022 Radiology Study observation (narrative) [facility] Work Phone: No Panel Informationon [...] any future breast imaging appointments, please call [phone]). MACRO: None Signed by: Mohan Romano 12/19/2022 11:32 AM Dictation workstation: [id number] MMODAL Interpreted By: Mohan Romano and Avery Ross STUDY: BI MAMMO BILATERAL DIAGNOSTIC TOMOSYNTHESIS; BI US BREAST LIMITED LEFT; 12/19/2022 9:42 am; 12/19/2022 10:52 am ACCESSION NUMBER(S): [id number]; [id number] ORDERING CLINICIAN: KAROLINA MAN INDICATION: Annual screening [...] axillary abnormality was performed by a registered gas cutting machine operator. No sonographic abnormalities are seen in the area of the patient's reported palpable lump or pain. 3 morphologically normal lymph nodes are incidentally seen. MMODAL No Panel InformationOrdered By: Mohan Romano on 12-19-2022 [facility] Work Phone: US Breast - left limitedon 1 Radiology Study observation (narrative) [facility] Work Phone: COMPREHENSIVE PANELon 2022 Albumin [Mass/Vol] 4.6 g/dL Normal 3.4 - 5.0 [facility] Comment on above: Performed By: #### C MP #### [facility] [address] [place] [address] ALP [Catalytic activity/Vol] 63 U/L Normal 33 - 110 [facility] Comment on above: Performed By: #### C MP #### [facility] [address] [place] [address] ALT [Catalytic activity/Vol] 23 U/L Normal 7 - 45 [facility] Comment on above: Result Comment: Lacie ents treated with Sulfasalazine may generate falsely decreased results for ALT. Performed By: #### C MP #### [facility] [address] [place] [address] Anion gap [Moles/Vol] 14 mmol/L Normal 10 - 20 [facility] Comment on above: Performed By: #### C MP #### [facility] [address] [place] [address] AST [Catalytic activity/Vol] 22 U/L Normal 9 - 39 [facility] Comment on above: Performed By: #### C MP #### [facility] [address] [place] [address] Bilirubin [Mass/Vol] 0.3 mg/dL Normal 0.0 - 1.2 [facility] Comment on above: Performed By: #### C MP #### [facility] [address] [place] [address] Calcium [Mass/Vol] 9.2 mg/dL Normal 8.6 - 10.6 [facility] Comment on above: Performed By: #### C MP #### [facility] [address] [place] [address] Chloride [Moles/Vol] 102 mmol/L Normal 98 - 107 [facility] Comment on above: Performed By: #### C MP #### [facility] [address] [place] [address] Creatinine [Mass/Vol] 0.66 mg/dL Normal 0.50 - 1.05 [facility] Comment on above: Performed By: #### C MP #### [facility] [address] [place] [address] eGFR FEMALE >90 Normal >90 [facility] Comment on above: Result Comment: CALC ULATIONS OF ESTIMATED GFR ARE PERFORMED USING THE 2020 CKD-EPI STUDY REFIT EQUATION WITHOUT THE RACE VARIABLE FOR THE IDMS-TRACEABLE CREATININE METHODS. https://jasn.asnjournals.org/content/early/ASN.703580 8393 Performed By: #### C MP #### [facility] [address] [place] [address] Glucose [Mass/Vol] 82 mg/dL Normal 74 - 99 [facility] Comment on above: Performed By: #### C MP #### [facility] [address] [place] [address] HCO3 (Bld) [Moles/Vol] 25 mmol/L Normal 21 - 32 [facility] Comment on above: Performed By: #### C MP #### [facility] [address] [place] [address] Potassium [Moles/Vol] 3.9 mmol/L Normal 3.5 - 5.3 [facility] Comment on above: Performed By: #### C MP #### [facility] [address] [place] [address] Protein [Mass/Vol] 7.2 g/dL Normal 6.4 - 8.2 [facility] Comment on above: Performed By: #### C MP #### [facility] [address] [place] [address] Sodium [Moles/Vol] 137 mmol/L Normal 136 - 145 [facility] Comment on above: Performed By: #### C MP #### [facility] [address] [place] [address] Urea nitrogen [Mass/Vol] 17 mg/dL Normal 6 - 23 [facility] Comment on above: Performed By: #### C MP #### [facility] [address] [place] [address] VITAMIN D, 25-HYDROXYon 11-08 VITAMIN D, 25-HYDROXY 36 ng/mL Normal [facility] Comment on above: Result Comment: . DEFICIENCY: < 20 NG/ML INSUFFICIENCY: 20-29 NG/ML SUFFICIENCY: 30-100 NG/ML THIS ASSAY ACCURATELY QUANTIFIES THE SUM OF VITAMIN D3, 25-HYDROXY AND VIT D2,25-HYDROXY. Performed By: #### V TDOH #### [facility] [address] [place] [address] COMPREHENSIVE PANELon 2022 Lab Specimen Source Normal [facility] Comment on above: Performed By: #### C MP #### [facility] [address] [place] [address] Performed By: #### V TDOH #### [facility] [address] [place] [address] XR foot RT min 3V*on 023 XR foot RT min 3V* [facility] [employer] Other XR foot RT min 3V* [facility] [employer] Other XR foot RT min 3V* [address] [place] [address] [employer] Other XR foot RT min 3V* [place] [address] [facility] [employer] Other XR foot RT min 3V* XRcarmen Mcclure [facility] [employer] Other XR foot RT min 3V* Signed [employer] Other XR foot RT min 3V* Patient: Michael Weller MR#: [id number] [employer] Other XR foot RT min 3V* [id number] [employer] Other XR foot RT min 3V* : 1985 Acct:[id number] [employer] Other XR foot RT min 3V* Age/Sex: 36 / F ADM Date: 07/02/22 [employer] Other XR foot RT min 3V* Loc: [id number] Room: Type: [facility] [employer] Other XR foot RT min 3V* Attending Dr: Bolivar Sherman [employer] Other XR foot RT min 3V* Copies to: Bolivar Sherman [employer] Other XR foot RT min 3V* Ordering Provider: Bolivar Sherman [employer] Other XR foot RT min 3V* Date of Service: 07/02/22 [employer] Other XR foot RT min 3V* XR/XR foot RT min 3V*: Right foot pain [employer] Other XR foot RT min 3V* 3 views RIGHT foot [employer] Other XR foot RT min 3V* COMPARISON:None [employer] Other XR foot RT min 3V* HISTORY: RIGHT 5th metatarsal pain for one week [employer] Other XR foot RT min 3V* Acute findings: None [employer] Other XR foot RT min 3V* Degenerative change: Unremarkable [employer] Other XR foot RT min 3V* Soft tissue findings : Unremarkable [employer] Other XR foot RT min 3V* Joint effusion: None [employer] Other XR foot RT min 3V* Postop changes: None [employer] Other XR foot RT min 3V* XR/XR foot RT min 3V* [employer] Other XR foot RT min 3V* IMPRESSION:No acute findings [employer] Other XR foot RT min 3V* Impression dictated by: Roddy Villegas M.D.07/02/2022 1:27 PM [employer] Other XR foot RT min 3V* Dictation Location: [place] [address] [employer] Other XR foot RT min 3V* Transcribed By: PWS 07/02/22 1327 [employer] Other XR foot RT min 3V* Dictated By: Roddy Villegas DO 07/02/22 1325 [employer] Other XR foot RT min 3V* Signed By: [employer] Other XR foot RT min 3V* 07/02/[address] [place] [address] [employer] Other Office Visit (Primary Care F orms)on [...] Hour; TAKE 1 TABLET DAILY Rx By: Arguello, Rafaela; Dispense: 30 Days ; #:30 Tablet; Refill: 2;For: Anxiety; YOEL = N; Verified [facility] to [id number]; Last Updated By: Bowen Olmedo; 02/10/2022 3:45:08 [...] is able to sleep uninterrupted. Saw Dr. Romano, breast surgery for benign fibroadenoma. Labs ordered [...] Grandfather Famil (more content not included)... Normal [facility] ULTRASOUND LIMITED BREASTon 10-14-2021 ULTRASOUND LIMITED BREAST Patient Name: MICHAEL WELLER STUDY: BREAST ULTRASOUND; 10/14/2021 3:38 pm ACCESSION NUMBER(S): [id number] ORDERING CLINICIAN: GRAZYNA ROMANO INDICATION: Patient presents with right axillary painful palpable mass for the last 2 years. History of benign right breast mass with unknown pathology in right breast. COMPARISON: Mammogram 06/21/2021, 07/06/2018, 01/08/2018. Breast ultrasound 06/21/2021, 04/23/2020, 07/15/2019, 02/02/2019 FINDINGS: Targeted ultrasound was performed of the right axilla by a registered gas cutting machine operator using elastography. Within the right axilla, [...] any future breast imaging appointments, please call [phone] ([phone]). I personally reviewed the images/study and I agree with the findings as stated by certified residential medication aide Brandt Camarillo MD. Electronically signed by: JAYME STEWART MD Normal [facility] Ultrasound Limited [place] 10-14-2021 MG Breast Screening Normal [facility] [employer] Work Phone: Albumin [Mass/volume] in Ser um or PlasmaOrdered By: Kp Alvares on 10-07-2021 Albumin [Mass/Vol] 3.9 g/dL 3.2-5.5 [facility] Basophils Auto (Bld) [#/Vol] Ordered By: Kp Alvares on 10-07-2021 Basophils (Bld) [#/Vol] 0.0 10*3/uL 0.0-0.2 [facility] Basophils/100 WBC Auto (Bld) Ordered By: Kp Alvares on 10-07-2021 Basophils/100 WBC (Bld) 0.6 % . [facility] Blood hemoglobin measurement (mass/volume)Ordered By: Kp Alvares on 10-07-2021 Hemoglobin (Bld) [Mass/Vol] 12.9 g/dL 11.8-15.4 [facility] Blood leukocytes automated c ount (number/volume)Ordered By: Kp Alvares on 10-07-2021 WBC (Bld) [#/Vol] 6.7 10*3/uL 4.5-11.0 [facility] Cholesterol [Mass/volume] in Serum or PlasmaOrdered By: Kp Alvares on 10-07-2021 Cholesterol [Mass/Vol] 192 mg/dL 140-200 [facility] Comment on above: Chol less than 200 m g/dl low risk Chol 201-239 mg/dl borderline risk Chol 240 mg/dl and greater high risk Cholesterol in LDL Calc [Mas s/Vol]Ordered By: Kp Alvares on 10-07-2021 Cholesterol in LDL [Mass/Vol] 104 mg/dL 0-100 [facility] Comment on above: LDL ATP III CLASSIFI CATION LDL less than 100 mg/dL Optimal LDL 100-129 mg/dL Near or above optimal LDL 130-159 mg/dL Borderline high LDL 160-189 mg/dL High LDL greater than 189 mg/dL Very high Cholesterol in VLDL Calc [Ma ss/Vol]Ordered By: Kp Alvares on 10-07-2021 Cholesterol in VLDL [Mass/Vol] 49 mg/dL [facility] Creatinine and Glomerular fi ltration rate.predicted panel (S/P/Bld)Ordered By: Kp Alvares on 10-07-2021 Creatinine [Mass/Vol] 0.60 mg/dL 0.44-1.03 [facility] Eosinophils Auto (Bld) [#/Vo l]Ordered By: Kp Alvares on 10-07-2021 Eosinophils (Bld) [#/Vol] 0.0 10*3/uL 0.0-0.45 [facility] Eosinophils/100 WBC Auto (Bl d)Ordered By: Kp Alvares on 10-07-2021 Eosinophils/100 WBC (Bld) 0.1 % . [facility] System Erythrocyte distribution wid th Auto (RBC) [Ratio]Ordered By: Kp Alvares on 10-07-2021 Erythrocyte distribution width (RBC) [Ratio] 14.1 % 11.9-15.3 [facility] Estimated glomerular filtrat ion rate (GFR) non- AmericanOrdered By: Kp Alvares on 10-07-2021 GFR/1.73 sq M.predicted among non-blacks MDRD (S/P/Bld) [Vol rate/Area] > 60 mL/Min [facility] Globulin Calc (S) [Mass/Vol] Ordered By: Kp Alvares on 10-07-2021 Globulin (S) [Mass/Vol] 2.7 g/dL [facility] Hematocrit Auto (Bld) [Volum e fraction]Ordered By: Kp Alvares on 10-07-2021 Hematocrit (Bld) [Volume fraction] 39.2 % 34.0-46.4 [facility] Laboratory - Hematology and Cell countsOrdered By: Kp Alvares on 10-07-2021 Nucleated RBC/100 WBC (Bld) [Ratio] 0.0 % 0-0.5 [facility] Lymphocytes Auto (Bld) [#/Vo l]Ordered By: Kp Alvares on 10-07-2021 Lymphocytes (Bld) [#/Vol] 2.0 10*3/uL 1.00-4.8 [facility] Lymphocytes/100 WBC Auto (Bl d)Ordered By: Kp Alvares on 10-07-2021 Lymphocytes/100 WBC (Bld) 30.2 % . [facility] MCH Auto (RBC) [Entitic mass ]Ordered By: Kp Alvares on 10-07-2021 MCH (RBC) [Entitic mass] 28.2 pg 24.7-34.3 [facility] MCHC Auto (RBC) [Mass/Vol]Or dered By: Kp Alvares on 10-07-2021 MCHC (RBC) [Mass/Vol] 33.0 g/dL 32.0-35.0 [facility] MCV Auto (RBC) [Entitic vol] Ordered By: Kp Alvares on 10-07-2021 MCV (RBC) [Entitic vol] 85.5 fL 80-100 [facility] Monocytes Auto (Bld) [#/Vol] Ordered By: Kp Alvares on 10-07-2021 Monocytes (Bld) [#/Vol] 0.4 10*3/uL 0.0-0.8 [facility] Monocytes/100 WBC Auto (Bld) Ordered By: Kp Alvares on 10-07-2021 Monocytes/100 WBC (Bld) 5.4 % . [facility] Neutrophils Auto (Bld) [#/Vo l]Ordered By: Kp Alvares on 10-07-2021 Neutrophils (Bld) [#/Vol] 4.2 10*3/uL 1.8-7.7 [facility] Neutrophils/100 WBC Auto (Bl d)Ordered By: Kp Alvares on 10-07-2021 Neutrophils/100 WBC (Bld) 63.7 % . [facility] No Panel InformationOrdered By: Kp Alvares on 10-07-2021 Estimated GFR () > 60 mL/Min [facility] Comment on above: GFR estimated refere nce range: According to KDOQI guidelines, <60 ml/min/1.73m2 is sufficient to diagnose a patient with chronic kidney disease. Pharmacy Creatinine Clearance (Chem N/A [facility] Platelet mean volume Auto (B ld) [Entitic vol]Ordered By: Kp Alvares on 10-07-2021 Platelet mean volume (Bld) [Entitic vol] 11.4 fL 6.3-10.7 [facility] Platelets Auto (Bld) [#/Vol] Ordered By: Kp Alvares on 10-07-2021 Platelets (Bld) [#/Vol] 164 10*3/uL 150-450 [facility] Protein [Mass/volume] in Ser um or PlasmaOrdered By: Kp Alvares on 10-07-2021 Protein [Mass/Vol] 6.6 g/dL 6.1-7.9 [facility] RBC Auto (Bld) [#/Vol]Ordere d By: Kp Alvares on 10-07-2021 RBC (Bld) [#/Vol] 4.59 10*6/uL 3.60-5.00 [facility] Serum or plasma alanine bynum otransferase measurement without P-5'-P (enzymatic activiOrdered By: Kp Alvares on 10-07-2021 ALT No additional P-5'-P [Catalytic activity/Vol] 16 U/L 10-60 [facility] Serum or plasma albumin/glob ulin mass ratioOrdered By: Kp Alvares on 10-07-2021 Albumin/Globulin [Mass ratio] 1.4 {ratio} [facility] Serum or plasma alkaline jenn sphatase measurement (enzymatic activity/volume)Ordered By: Kp Alvares on 10-07-2021 ALP [Catalytic activity/Vol] 55 U/L 32-92 [facility] Serum or plasma aspartate am inotransferase measurement (enzymatic activity/volume)Ordered By: Kp Alvares on 10-07-2021 AST [Catalytic activity/Vol] 16 U/L 10-42 [facility] Serum or plasma calcium marlon urement (mass/volume)Ordered By: Kp Alvares on 10-07-2021 Calcium [Mass/Vol] 9.2 mg/dL 8.2-10.2 [facility] Serum or plasma chloride any surement (moles/volume)Ordered By: Kp Alvares on 10-07-2021 Chloride [Moles/Vol] 102 mmol/L 95-114 [facility] Serum or plasma glucose marlon urement (mass/volume)Ordered By: Kp Alvares on 10-07-2021 Glucose [Mass/Vol] 86 mg/dL 70-100 [facility] Comment on above: ADA recommended refe rence range Random Glucose Reference Range is dependent on time and content of last meal. Glucose of more than 200 mg/dL in a nonstressed, ambulatory subject supports the diagnosis of Diabetes Mellitus. Serum or plasma high density lipoprotein (HDL) cholesterol measurementOrdered By: Kp Alvares on 10-07-2021 Cholesterol in HDL [Mass/Vol] 39 mg/dL 35-85 [facility] Comment on above: HDL CHOL ATP-III CLA SSIFICATION Cardiovascular Risk HDL > or equal to 60 mg/dL LOW HDL < 40 mg/dL HIGH Serum or plasma potassium me asurement (moles/volume)Ordered By: Kp Alvares on 10-07-2021 Potassium [Moles/Vol] 4.1 mmol/L 3.5-5.1 [facility] Serum or plasma sodium measu rement (moles/volume)Ordered By: Kp Alvares on 10-07-2021 Sodium [Moles/Vol] 134 mmol/L 136-146 [facility] Serum or plasma total biliru bin measurement (mass/volume)Ordered By: Kp Alvares on 10-07-2021 Bilirubin [Mass/Vol] 0.6 mg/dL 0.3-1.2 [facility] Serum or plasma total carbon dioxide measurement (moles/volume)Ordered By: Kp Alvares on 10-07-2021 CO2 [Moles/Vol] 25.9 mmol/L 22.0-30.0 [facility] Serum or plasma total choles terol/high density lipoprotein (HDL) cholesterol mass ratOrdered By: Kp Alvares on 10-07-2021 Cholesterol.total/Cho lesterol in HDL [Mass ratio] 4.9 {ratio} <5.0 [facility] Serum or plasma urea nitroge n measurement (mass/volume)Ordered By: Kp Alvares on 10-07-2021 Urea nitrogen [Mass/Vol] 10 mg/dL 9-23 [facility] TSH DL <= 0.005 mIU/L QnOrde red By: Kp Alvares on 10-07-2021 TSH Qn 2.68 m[IU]/L 0.45-5.33 [facility] Triglyceride [Mass/volume] i n Serum or PlasmaOrdered By: Kp Alvares on 10-07-2021 Triglyceride [Mass/Vol] 246 mg/dL 35-149 [facility] Comment on above: TRIG ATP III CLASSIF ICATION TRIG less than 150 mg/dL Normal TRIG 150-199 mg/dL Borderline high TRIG 200-500 mg/dL High TRIG greater than 500 mg/dL Very high Standard traceable to the Center for Disease Conrtrol and Prevention (CDC) test method. CBC AUTO DIFFon 05-06-2022 BASO # 0.0 103/ul Normal 0.0-0.1 [facility] Comment on above: Performed By: #### C BC #### [facility] [address] [place] [address] Dr. Kalyn Gutierrez Basophils/100 WBC (Bld) 0.4 % Normal 0.2-2.0 [facility] Comment on above: Performed By: #### C BC #### [facility] [address] [place] [address] Dr. Kalyn Gutierrez EO # 0.0 103/ul Normal 0.0-0.7 [facility] Comment on above: Performed By: #### C BC #### [facility] [address] [place] [address] Dr. Kalyn Gutierrez Eosinophils/100 WBC (Bld) 0.0 % Critically low 0.9-7.0 [facility] Comment on above: Performed By: #### C BC #### [facility] [address] [place] [address] Dr. Kalyn Gutierrez Erythrocyte distribution width (RBC) [Ratio] 12.8 % Normal 11.0-15.0 [facility] Comment on above: Performed By: #### C BC #### [facility] [address] [place] [address] Dr. Kalyn Gutierrez Hematocrit (Bld) [Volume fraction] 38.8 % Normal 36.0-48.0 [facility] Comment on above: Performed By: #### C BC #### [facility] [address] [place] [address] Dr. Kalyn Gutierrez Hemoglobin (Bld) [Mass/Vol] 12.4 g/dL Normal 12.0-16.0 [facility] Comment on above: Performed By: #### C BC #### [facility] [address] [place] [address] Dr. Kalyn Gutierrez IG # 0.02 10e3/ul Normal 0.00-0.03 [facility] Comment on above: Performed By: #### C BC #### [facility] [address] [place] [address] Dr. Kalyn Gutierrez IG % 0.3 % Normal 0.0-0.5 [facility] Comment on above: Performed By: #### C BC #### [facility] [address] [place] [address] Dr. Kalyn Gutierrez LYMPH # 1.8 103/ul Normal 1.2-3.8 [facility] Comment on above: Performed By: #### C BC #### [facility] [address] [place] [address] Dr. Kalyn Gutierrez Lymphocytes/100 WBC (Bld) 25.0 % Normal 20.5-60.0 [facility] Comment on above: Performed By: #### C BC #### [facility] [address] [place] [address] Dr. Kalyn Gutierrez MANUAL DIFF REQ NO Normal [facility] Comment on above: Performed By: #### C BC #### [facility] [address] [place] [address] Dr. Kalyn Gutierrez MCH (RBC) [Entitic mass] 28.2 pg Normal 26.7-34.0 [facility] Comment on above: Performed By: #### C BC #### [facility] [address] [place] [address] Dr. Kalyn Gutierrez MCHC (RBC) [Mass/Vol] 32.0 g/dL Normal 29.9-35.2 [facility] Comment on above: Performed By: #### C BC #### [facility] [address] [place] [address] Dr. Kalyn Gutierrez MCV (RBC) [Entitic vol] 88.4 fL Normal 81.0-99.0 [facility] Comment on above: Performed By: #### C BC #### [facility] [address] [place] [address] Dr. Kalyn Gutierrez MONO # 0.6 103/ul Normal 0.3-0.8 [facility] Comment on above: Performed By: #### C BC #### [facility] [address] [place] [address] Dr. Kalyn Gutierrez Monocytes/100 WBC (Bld) 8.7 % Normal 1.7-12.0 [facility] Comment on above: Performed By: #### C BC #### [facility] [address] [address] [address] Kalyn Gutierrez NEUT # 4.8 103/ul Normal 1.4-6.5 [facility] Comment on above: Performed By: #### C BC #### [facility] [address] [place] [address] Dr. Kalyn Gutierrez Neutrophils/100 WBC (Bld) 65.6 % Normal 43.0-75.0 [facility] Comment on above: Performed By: #### C BC #### [facility] [address] [place] [address] Dr. Kalyn Gutierrez Platelet mean volume (Bld) [Entitic vol] 12.3 fL Normal 9.5-13.5 [facility] Comment on above: Performed By: #### C BC #### [facility] [address] [place] [address] Dr. Kalyn Gutierrez PLT 183 103/ul Normal 150-450 [facility] Comment on above: Performed By: #### C BC #### [facility] [address] [place] [address] Dr. Kalyn Gutierrez RBC 4.39 106/ul Normal 4.20-5.40 [facility] Comment on above: Performed By: #### C BC #### [facility] [address] [place] [address] Dr. Kalyn Gutierrez WBC 7.3 103/ul Normal 4.0-11.0 [facility] Comment on above: Performed By: #### C BC #### [facility] [address] [place] [address] Dr. Kalyn Gutierrez PREG QUANT HCGon 07-12-2021 HCG QUANT <1 Normal [facility] Comment on above: Performed By: #### P REGQNT #### [facility] [address] [place] [address] Dr. Kalyn Gutierrez HCG RANGE SEE BELOW Normal [facility] Comment on above: Result Comment: 5-50 0-1 WEEK 40-300 1-2 WEEKS 100-1,000 2-3 WEEKS 500-6,000 3-4 WEEKS 5,000-200,000 1-2 MONTHS 10,000-100,000 2-3 MONTHS 3,000-50,000 2ND TRIMESTER 1,000-50,000 3RD TRIMESTER Performed By: #### P REGQNT #### [facility] [address] [address] [address] Kalyn Gutierrez US PELVIS AND TRANSVAGon [...] NOEMI KRISHNA Date: 2021-06-22 09:10 Normal [facility] DIGITAL DIAG MAMM BILAT WITH TOMOon 06-21-2021 DIGITAL DIAG MAMM BILAT WITH SUSANA Patient Name: MICHAEL WELLER STUDY: DIGITAL DIAG MAMM BILAT WITH SUSANA; BREAST ULTRASOUND; 06/21/2021 3:05 pm; 06/21/2021 3:31 pm ACCESSION NUMBER(S): [id number]; [id number] ORDERING CLINICIAN: RAFAELA ARGUELLO INDICATION: Right breast [...] breast ultrasound was performed by a registered gas cutting machine operator utilizing elastography. The irregular hypoechoic parallel [...] any future breast imaging appointments, please call [phone] ([phone]). Patient letter sent SAAPPR Electronically signed by: MOHAN ROMANO MD Normal [facility] IO UA (automated w/o microsc opy)on 06-21-2021 Protein (U) [Mass/Vol] Negative [facility] Work Phone: IO UA (automated w/o microscopy) Negative [facility] Work Phone: IO UA (automated w/o microscopy) Normal (0.2-1.0 mg/dl) [facility] Work Phone: IO UA (automated w/o microscopy) 6.5 1 [facility] Work Phone: IO UA (automated w/o microscopy) 1.025 1 [facility] Work Phone: IO UA (automated w/o microscopy) Clear [facility] Work Phone: IO UA (automated w/o microscopy) Yellow [facility] Work Phone: IO Ultrasound, measurement p ost-void resid urine and/or bl cap; no imagon 06-21-2021 IO Ultrasound, measurement post-void resid urine and/or bl cap; no imag 0 mL [facility] Work Phone: Radiologyon 06-21-2021 MG Breast Diagnostic Please click on the link to view the study images Normal [facility] Work Phone: MG Breast Diagnostic Normal MP-W SPC-Westla ke 200 Work Phone: Tobacco Screening.on 022 Fall risk assessment a) No falls within the last year [facility] Work Phone: Tobacco use status [facility]PHS b) [facility] Work Phone: ULTRASOUND LIMITED BREASTon 06-21-2021 ULTRASOUND LIMITED BREAST Patient Name: MICHAEL WELLER STUDY: DIGITAL DIAG MAMM BILAT WITH SUSANA; BREAST ULTRASOUND; 06/21/2021 3:05 pm; 06/21/2021 3:31 pm ACCESSION NUMBER(S): [id number]; [id number] ORDERING CLINICIAN: RAFAELA ARGUELLO INDICATION: Right breast [...] breast ultrasound was performed by a registered gas cutting machine operator utilizing elastography. The irregular hypoechoic parallel [...] any future breast imaging appointments, please call [phone] ([phone]). Patient letter sent SAAPPR Electronically signed by: MOHAN ROMANO MD Normal [facility] Ultrasound Limited Breaston 06-21-2021 MG Breast Screening Normal MP-WS PC-[facility]la ke [address] Work Phone: IO UA (automated w/o microsc opy)on 06-04-2021 Protein (U) [Mass/Vol] Negative PZ-YDXC-Qvkxzp ke 200 Work Phone: IO UA (automated w/o microscopy) Negative WC-OZOW-Igtsqn ke 200 Work Phone: IO UA (automated w/o microscopy) Normal WH-TQBN-Cwmswf ke 200 Work Phone: IO UA (automated w/o microscopy) 7.0 1 CE-QLRD-Ptbljx ke 200 Work Phone: IO UA (automated w/o microscopy) 1.020 1 JA-LDHA-Rsvlon ke 200 Work Phone: IO UA (automated w/o microscopy) Clear ET-IODL-Qyqylm ke 200 Work Phone: IO UA (automated w/o microscopy) Yellow BN-MFBC-Tgywfj ke 200 Work Phone: Tobacco Screening.on 022 Adult depression screening assessment No MP-WSPC-Luiz tla ke 200 Work Phone: Fall risk assessment a) No falls within the last year YF-EDHU-Iurdcg ke 200 Work Phone: Last menstrual period start date 14May2021 PQ-KPGN-Puwiky ke 200 Work Phone: Tobacco use status CPHS b) No SC-AJWS-Hwapfi ke 200 Work Phone: PAP ACOG PANEL 2: 30 to 65on 03-28-2021 . . Normal [facility] Comment on above: Result Comment: Perf ormed at: WB Performed By: #### [id number] #### [facility] [address] [place] [address] Dr. Kalyn Gutierrez Age Gdln ACOG Testing - [facility] Comment on above: Performed By: #### [id number] #### [facility] [address] [place] [address] Dr. Kalyn Gutierrez DIAGNOSIS: Comment Normal [facility] Comment on above: Result Comment: NEGA TIVE FOR INTRAEPITHELIAL LESION OR MALIGNANCY. Performed at: WB Performed By: #### [id number] #### [facility] [address] [place] [address] Dr. Kalyn Gutierrez HPV Aptima Negative Normal Negative [facility] Comment on above: Result Comment: This nucleic acid amplification test detects fourteen high-risk HPV types (16,18,31,33,35,39,45,51,52,56,58,59,66,68) without differentiation. Performed at: =G Performed By: #### [id number] #### [facility] [address] [place] [address] Dr. Kalyn Gutierrez Methodology: Comment Normal [facility] Comment on above: Result Comment: This liquid based ThinPrep(R) pap test was screened with the use of an image guided system. Performed at: WB Performed By: #### [id number] #### [facility] [address] [place] [address] Dr. Kalyn Gutierrez Note: Comment Normal [facility] Comment on above: Result Comment: The Pap smear is a screening test designed to aid in the detection of premalignant and malignant conditions of the uterine cervix. It is not a diagnostic procedure and should not be used as the sole means of detecting cervical cancer. Both false-positive and false-negative reports do occur. . Performed at: WB Performed By: #### [id number] #### [facility] [address] [address] [address] Kalyn Gutierrez Performed by: Comment Normal [facility] Comment on above: Result Comment: Tawnya Del Rio, Retrimmer (ASCP) Performed at: WB Performed By: #### [id number] #### [facility] [address] [address] [address] Kalyn Gutierrez Specimen adequacy: Comment Normal [facility] Comment on above: Result Comment: Sati sfactory for evaluation. Endocervical and/or squamous metaplastic cells (endocervical component) are present. Performed at: WB Performed By: #### [id number] #### [facility] [address] [address] [address] Kalyn Gutierrez Vital Signs Date Time Vital Sign Value Performing Clinician Facility 01-05-2024 11:51-0400 Body mass index (BMI) [Ratio] 30.45 kg/m2 Maryann Davison Work Phone: [facility] 01-05-2024 11:51-0400 Body temperature 98.2 [degF] Maryann Davison Work Phone: [facility] 01-05-2024 11:51-0400 Body weight 83.01 kg Maryann Davison Work Phone: [facility] 01-05-2024 11:51-0400 Diastolic blood pressure 76 mm[Hg] Maryann Davison Work Phone: [facility] 01-05-2024 11:51-0400 Heart rate 74 /min Maryann Davison Work Phone: [facility] 01-05-2024 11:51-0400 Respiratory rate 18 /min Maryann Nairdayo Work Phone: [facility] 01-05-2024 11:51-0400 SaO2% (BldA) [Mass fraction] 98 % Maryann Davison Work Phone: [facility] 01-05-2024 11:51-0400 Systolic blood pressure 119 mm[Hg] Maryann Davison Work Phone: [facility] 09-05-2023 13:24-0400 Body height 165.1 cm [facility] 09-05-2023 13:24-0400 Body mass index (BMI) [Ratio] 29.2 kg/m2 [facility] 09-05-2023 13:24-0400 Body temperature 97.9 [degF] [facility] 09-05-2023 13:24-0400 Body weight 79.83 kg [facility] 09-05-2023 13:24-0400 Diastolic blood pressure 85 mm[Hg] [facility] 09-05-2023 13:24-0400 Heart rate 106 /min [facility] 09-05-2023 13:24-0400 Respiratory rate 18 /min [facility] 09-05-2023 13:24-0400 SaO2% (BldA) [Mass fraction] 96 % [facility] 09-05-2023 13:24-0400 Systolic blood pressure 120 mm[Hg] [facility] 07-22-2023 14:37-0400 Body height 165.1 cm Jhonny Issa MD Work Phone: [facility] 07-22-2023 14:37-0400 Body mass index (BMI) [Ratio] 30.72 kg/m2 Jhonny Issa MD Work Phone: [facility] 07-22-2023 14:37-0400 Body weight 83.73 kg Jhonny Issa MD Work Phone: [facility] 07-22-2023 14:37-0400 Diastolic blood pressure 78 mm[Hg] Jhonny Issa MD Work Phone: [facility] 07-22-2023 14:37-0400 Heart rate 111 /min Jhonny Issa MD Work Phone: [facility] 07-22-2023 14:37-0400 Systolic blood pressure 118 mm[Hg] Jhonny Issa MD Work Phone: 7(485)264-292710 [place] [address] 04-27-2023 15:40-0500 Body height 165.1 cm Jhonny Issa MD Work Phone: 7(229)188-689810 [place] [address] 04-27-2023 15:40-0500 Body mass index (BMI) [Ratio] 34.15 kg/m2 Jhonny Issa MD Work Phone: 5(962)801-064610 [place] [address] 04-27-2023 15:40-0500 Body weight 93.08 kg Jhonny Issa MD Work Phone: 1(521)179-826910 [place] [address] 04-27-2023 15:40-0500 Diastolic blood pressure 60 mm[Hg] Jhonny Issa MD Work Phone: 3(667)961-366810 [place] [address] 04-27-2023 15:40-0500 Heart rate 123 /min Jhonny Issa MD Work Phone: 3(284)047-285710 [place] [address] 04-27-2023 15:40-0500 Respiratory rate 14 /min Jhonny Issa MD Work Phone: 8(709)475-946510 [place] [address] 04-27-2023 15:40-0500 Systolic blood pressure 104 mm[Hg] Jhonny Issa MD Work Phone: 8(851)693-746410 [place] [address] 02-19-2023 10:39-0500 Body height 165.1 cm Jhonny Issa MD Work Phone: 0(120)337-644310 [place] [address] 02-19-2023 10:39-0500 Body mass index (BMI) [Ratio] 36.08 kg/m2 Jhonny Issa MD Work Phone: [facility] 02-19-2023 10:39-0500 Body weight 98.34 kg Jhonny Issa MD Work Phone: [facility] 02-19-2023 10:39-0500 Diastolic blood pressure 83 mm[Hg] Jhonny Issa MD Work Phone: [facility] 02-19-2023 10:39-0500 Heart rate 94 /min Jhonny Issa MD Work Phone: [facility] 02-19-2023 10:39-0500 Systolic blood pressure 117 mm[Hg] Jhonny Issa MD Work Phone: [facility] 07-02-2022 13:20-0400 Body height 165.1 cm Bolivar Sherman Other [employer] Other 07-02-2022 13:20-0400 Body mass index (BMI) [Ratio] 33.28 kg/m2 Bolivar Sherman Other [employer] Other 07-02-2022 13:20-0400 Body weight 90.72 kg Bolivar Sherman Other [employer] Other 07-02-2022 13:20-0400 Diastolic blood pressure 78 mm[Hg] Bolivar Sherman Other [employer] Other 07-02-2022 13:20-0400 Respiratory rate 18 /min Bolivar Sherman Other [employer] Other 07-02-2022 13:20-0400 SaO2% (BldA) [Mass fraction] 99 % Bolivar Sherman Other [employer] Other 07-02-2022 13:20-0400 Systolic blood pressure 117 mm[Hg] [address] Other [facility] [employer] Other 10-14-2021 15:07-0400 Diastolic blood pressure 98 mm[Hg] Rafaela Arguello Work Phone: [facility] Work Phone: 10-14-2021 15:07-0400 Heart rate 103 /min Rafaela Arguello Work Phone: [facility] Work Phone: 10-14-2021 15:07-0400 Systolic blood pressure 132 mm[Hg] Rafaela Arguello Work Phone: [facility] Work Phone: 06-21-2021 08:13-0400 Body height 165.1 cm Rafaela Arguello Work Phone: [facility] Work Phone: 06-21-2021 08:13-0400 Body mass index (BMI) [Ratio] 33.28 kg/m2 Rafaela Arguello Work Phone: [facility] Work Phone: 06-21-2021 08:13-0400 Body surface area Derived from formula 1.98 m2 Rafaela Arguello Work Phone: [facility] Work Phone: 06-21-2021 08:13-0400 Body temperature 97.2 [degF] Rafaela Arguello Work Phone: [facility] Work Phone: 06-21-2021 08:13-0400 Body weight 90.72 kg Rafaela Arguello Work Phone: [facility] Work Phone: 06-21-2021 08:13-0400 Diastolic blood pressure 82 mm[Hg] Rafaela Arguello Work Phone: [facility] Work Phone: 06-21-2021 08:13-0400 Heart rate 89 /min Rafaela Arguello Work Phone: [facility] Work Phone: 06-21-2021 08:13-0400 Systolic blood pressure 115 mm[Hg] Rafaela Arguello Work Phone: [facility] Work Phone: 06-04-2021 13:05-0400 Body height 167.64 cm Rafaelalaron Arguello Work Phone: [facility]-Pjqaukxk 200 Work Phone: 06-04-2021 13:05-0400 Body mass index (BMI) [Ratio] 32.77 kg/m2 Rafaelalaron Arguello Work Phone: GL-CJTT-Bbbstkse 200 Work Phone: 06-04-2021 13:05-0400 Body surface area Derived from formula 2.01 m2 Rafaelalaron Arguello Work Phone: FF-TRYB-Daywbalh 200 Work Phone: 06-04-2021 13:05-0400 Body temperature 98.2 [degF] Rafaela Arguello Work Phone: WU-YOWW-Kmbseqqm 200 Work Phone: 06-04-2021 13:05-0400 Body weight 92.08 kg Rafaela Arguello Work Phone: TI-UCLK-Ditxkmty 200 Work Phone: 06-04-2021 13:05-0400 Diastolic blood pressure 76 mm[Hg] Rafaelalaron Arguello Work Phone: IK-QOOQ-Susxevrg 200 Work Phone: 06-04-2021 13:05-0400 Heart rate 80 /min Rafaelalaron Arguello Work Phone: GC-ZWMD-Yknpblyz 200 Work Phone: 06-04-2021 13:05-0400 Respiratory rate 16 /min Rafaela Shira Arguello Work Phone: YI-MKWL-Eljjnobq 200 Work Phone: 06-04-2021 13:05-0400 Systolic blood pressure 122 mm[Hg] Rafaela Arguello Work Phone: YG-YKRH-Pgjrqnsm 200 Work Phone: 12-07-2019 11:03-0400 BMI (Body Mass Index) 31.95 kg/m2 Rafaela Arguello VO-VMLQ-Wlnzatxe 200 Work Phone: 12-07-2019 11:03-0400 Body Temperature 98.3 [degF] Rafaela Arguello HI-PVFE-Wahoghd e 200 Work Phone: Comment on above: Method: Temporal 12-07-2019 11:03-0400 Body weight 87.77 kg Rafaela Arguello JY-PTMW-Rfidntac 200 Work Phone: 12-07-2019 11:03-0400 BP Diastolic 74 mm[Hg] Rafaela Arguello TV-POMT-Ikneljaq 200 Work Phone: 12-07-2019 11:03-0400 BP Systolic 118 mm[Hg] Rafaela Arguello QU-ONXR-Lrrbvojw 200 Work Phone: 12-07-2019 11:03-0400 BSA (Body Surface Area) 1.96 m2 Rafaela Arguello MP-WSPC-[place] 200 Work Phone: 12-07-2019 11:03-0400 Height 165.74 cm Rafaela Arguello EG-TRQW-Orrssagl 200 Work Phone: 12-07-2019 11:03-0400 Pulse (Heart Rate) 84 /min Rafaela Arguello MP-WSPC-West[place] mayur 200 Work Phone: 12-07-2019 11:03-0400 Respiratory Rate 16 /min Rafaela Arguello MP-WSPC-[place] 200 Work Phone: 05-16-2019 18:12-0400 BMI (Body Mass Index) 33.45 kg/m2 Rafaela Arguello MP-WSPC-[place] [facility] Work Phone: 05-16-2019 18:12-0400 Body Temperature 98.3 [degF] Rafaela Arguello VZ-UUJS-Wqjd 25 [facility] Work Phone: 05-16-2019 18:12-0400 Body weight 91.17 kg Rafaela Arguello ZP-XNLF-Iqvz 253 [facility] Work Phone: 05-16-2019 18:12-0400 BP Diastolic 76 mm[Hg] Rafaela Arguello CA-EDMA-Etop [address] [facility] Work Phone: 05-16-2019 18:12-0400 BP Systolic 122 mm[Hg] Rafaela Arguello EG-QGUY-Mdnl [address] [facility] Work Phone: 05-16-2019 18:12-0400 BSA (Body Surface Area) 1.98 m2 Rafaela Arguello MP-[facility] [facility] Work Phone: 05-16-2019 18:12-0400 Pulse (Heart Rate) 88 /min Rafaela Arguello MP-[facility]SPC[facility] [facility] Work Phone: 05-16-2019 18:12-0400 Pulse Oximetry 98 % Rafaela Arguello ER-VVDK-Sukp [address] [facility] Work Phone: 05-16-2019 18:12-0400 Respiratory Rate 18 /min Rafaela Arguello MP-WSPC-[place] [address] [facility] Work Phone: Encounters Encounter Date Encounter Type Care Provider Facility Start: 01-28-2024 End: 01-28-2024 Clinisync Result Encounter Matt Daya DO Work Phone: [facility] External [facility] Unsolicited Start: 01-28-2024 End: 01-28-2024 Clinisync Result Encounter Matt Daya DO Work Phone: [facility] External [facility] Unsolicited Start: 01-26-2024 End: 01-26-2024 Clinisync Result Encounter Matt Daya DO Work Phone: [facility] External Department Unsolicited Start: 01-26-2024 End: 01-26-2024 Clinisync Result Encounter Matt Daya DO Work Phone: [facility] External Department Unsolicited Start: 01-05-2024 End: 01-05-2024 Office outpatient visit 25 minutes Maryann Davison Work Phone: [facility] Comment on above: Acute lower UTI (Adrianna eulogio Dx); Urine frequency Start: 10-20-2023 End: 10-20-2023 ambulatory MATT DAYA Not Available Start: 09-05-2023 End: 09-05-2023 Departed Referred [employer]PER[employer]OR Swetha Andersen Work Phone: [facility] 250 Start: 09-05-2023 End: 09-05-2023 ambulatory PHYSICIAN [facility] Work Phone: Start: 09-05-2023 End: 09-05-2023 Patient encounter procedure On License Of [facility] Amandeep Work Phone: Start: 09-01-2023 End: 09-01-2023 ambulatory ROULA BLEDSOE Facility:[facility] Start: 09-01-2023 End: 09-01-2023 Patient encounter procedure Roula Bledsoe APRN.CNP Work Phone: [facility] [place] Comment on above: Dermatofibroma (Prim ottoniel Dx); Lentigines; Multiple benign nevi; Valles angioma; Hx of malignant melanoma Start: 07-22-2023 End: 07-22-2023 ambulatory JHONNY [facility] Ambulatory Start: 07-22-2023 End: 07-22-2023 Office outpatient visit 25 minutes Jhonny Issa MD Work Phone: [facility] Comment on above: Encephalopathy (Prim ottoniel Dx); Attention deficit hyperactivity disorder (ADHD), predominantly inattentive type; Insomnia due to medical condition; Anxiety Start: 07-02-2023 End: 07-02-2023 ambulatory MATT DAYA Not Available Start: 04-27-2023 End: 04-27-2023 ambulatory [facility] Ambulatory Start: 04-27-2023 End: 04-27-2023 Office outpatient visit 25 minutes Jhonny Issa MD Work Phone: [facility] Comment on above: Encephalopathy (Prim ottoniel Dx); Attention deficit hyperactivity disorder (ADHD), predominantly inattentive type; Insomnia due to medical condition; Anxiety Start: 03-04-2023 End: 03-04-2023 ambulatory KAROLINA Cota [facility] Ambulatory Start: 03-04-2023 End: 03-04-2023 Office outpatient visit 15 minutes Karolina Man Work Phone: [facility] Comment on above: Anxiety Start: 02-19-2023 End: 02-19-2023 ambulatory [facility] Ambulatory Start: 02-19-2023 End: 02-19-2023 Office outpatient new 60 minutes Jhonny Issa MD Work Phone: [facility] Comment on above: Encephalopathy (Prim ottoniel Dx); Anxiety; Attention deficit hyperactivity disorder (ADHD), predominantly inattentive type Start: 12-19-2022 End: 12-19-2022 Subsequent hospital visit by physician Martha Breast Ultrasound 1 [facility] Comment on above: Lump in female breas t Start: 12-19-2022 End: 12-19-2022 ambulatory KAROLINA Cota [facility] Start: 12-19-2022 End: 12-19-2022 ambulatory KAROLINA Cota [facility] Start: 12-19-2022 End: 12-19-2022 Subsequent hospital visit by physician Martha Mammo 1 [facility] Comment on above: Abnormal mammogram Start: 12-03-2022 End: 12-03-2022 ambulatory [place] Cipriano [facility] Ambulatory Start: 10-16-[address] Work Phone: [facility] Work Phone: Start: 07-02-2022 Office outpatient vi sit [facility] Start: 07-02-2022 End: 07-02-2022 ambulatory DO Danielle Infante Work Phone: [facility] Work Phone: Start: 07-02-2022 End: 07-02-2022 Patient encounter procedure DO Danielle Infante Work Phone: [facility] 250 Start: 04-14-2022 Rx Renewal Rafaela Sanabria rd Work Phone: BB-JYYE-Qzfhowhb 200 Work Phone: Start: 03-17-2022 Rx Renewal Rafaela Sanabria rd Work Phone: PY-QODP-Iiopimut 200 Work Phone: Start: 02-10-2022 ambulatory Ms. Rafaela Arguello Facility:[id number] Start: 02-10-2022 Office outpatient vi sit 25 minutes Rafaela Arguello Work Phone: XU-LLUH-Mcjdwpcp 200 Work Phone: Start: 10-30-2021 Rx Renewal Rafaela Sanabria rd Work Phone: HN-TVAQ-Bdazpobp 200 Work Phone: Start: 10-17-2021 End: 10-17-2021 Patient encounter procedure Roula Bledsoe OVERHEAD CLEANER Work Phone: [facility] [place] Comment on above: Lentigines (Primary Dx); Multiple benign nevi; Valles angioma; Exposure to tanning bed, sequela; Hx of malignant melanoma; Dermatofibroma Start: 10-14-2021 Office consultation new/estab patient 60 min Rafaela Arguello Work Phone: [employer] Work Phone: Start: 10-14-2021 Patient encounter procedure Rafaela Arguello Work Phone: [employer] Work Phone: Start: 10-08-2021 Office outpatient vi sit 25 minutes Rafaela Arguello Work Phone: FO-VVSS-Cbboqmix 200 Work Phone: Start: 10-08-2021 ambulatory Ms. Rafaela Arguello Facility:[id number] Start: 10-07-2021 End: 10-07-2021 Departed Referred DO Danielle Husseinochoanoble Work Phone: [facility] Start: 10-02-2021 Rx Renewal Rafaela Sanabria rd Work Phone: QT-TLTD-Wvsxgmay 200 Work Phone: Start: 09-06-2021 Patient encounter procedure Rafaela E Hema Work Phone: [facility] Work Phone: Start: 09-06-2021 ambulatory Ms. Rafaela Arguello Facility:[id number] Start: 07-12-2021 End: 07-12-[address] SHASHANK BARAJAS Facility:H1 Start: 07-11-2021 Encounter for preprocedural cardiovascular examination DR MATT STAPLETON [facility] Start: 07-10-2021 End: 07-11-[address] MATT STAPLETON Facility:H1 Start: 07-10-2021 End: 07-11-2021 Encounter for preprocedural cardiovascular examination DR MATT STAPLETON Facility:H1 Start: 07-09-[address] MATT STAPLETON Facility :H1 Start: 07-01-[address] Work Phone: FH-WUAN-Hcbtlmgy 200 Work Phone: Start: 06-28-2021 Chart Update Rafaela Sanabria rd Work Phone: SN-KFOS-Slgjlgrc 200 Work Phone: Start: 06-27-[address] Work Phone: YR-FKNW-Qtwigljh 200 Work Phone: Start: 06-21-2021 End: 06-22-[address] MATT STAPLETON Facility:H1 Start: 06-04-2021 Office outpatient vi sit 25 minutes Rafaela Arguello Work Phone: YG-XLLE-Nuukbyta 200 Work Phone: Start: 06-04-2021 Patient encounter procedure Rafaela Arguello Work Phone: LL-IFDO-Vbenajbs 200 Work Phone: Start: 06-04-2021 ambulatory Ms. Rafaela Arguello Facility:[id number] Start: 03-25-2021 End: 03-25-[address] MATT STAPLETON Facility:H1 Start: 12-07-2019 Patient encounter procedure Rafaela Arguello DQ-QXXQ-Lanxgjsv 200 Work Phone: Start: 05-16-2019 Patient encounter procedure Rafaela Arguello MP-WSPC-[place] [facility] Work Phone: Start: 09-27-2018 Patient encounter procedure Rafaela Arguello EH-EBLA-Hbag [facility] Work Phone: Start: 09-14-2018 Patient encounter procedure Rafaela Arguello LC-ELVR-Vhxx [facility] Work Phone: Start: 07-17-2017 Patient encounter procedure Rafaela Arguello NO-XZDN-Yqkr [facility] Work Phone: Procedures Date Procedure Procedure Detail Performing Clinician Start: 01-28-2024 [facility] PREG QUANT HCG Core y Daya DO Work Phone: Start: 01-26-2024 [facility] PREG QUANT HCG Core y Daya DO Work Phone: Start: 01-05-2024 End: 01-05-2024 Urine test visual color cmprsn meths Maryann Davison Work Phone: Start: 10-20-2023 Microscopic observat ion [Identifier] in Cervix by Cyto stain Maryann Davison Work Phone: Start: 04-27-2023 Follow-up visit Follow-up JHONNY ISSA Start: 02-19-2023 DRUG SCREEN, URINE W ITH [...] [Identifier] in Cervix by Cyto stain Jhonny Issa MD Work Phone: Start: 07-02-2022 X-ray of [...] croft Work Phone: Removal of suture Bolivar hung Other Tonsillectomy Rafaela Arguello Total replacement of hip Keaton Arguello Plan of Treatment Date Care Activity Detail Author Start: 10-26-2037 Zoster Vaccines (1 o f 2) Zoster Vaccines (1 of 2) [facility] Start: 10-19-2028 Screening for malignant neoplasm of cervix [facility] Start: 10-19-2026 Screening for malignant neoplasm of cervix [facility] Start: 10-17-2025 Screening for malignant neoplasm of cervix [facility] Start: 04-23-2025 Lipid panel Lipid Panel [facility] Start: 10-26-2024 End: 10-26-2024 Patient encounter procedure 10/26/2024 4:00 PM EDT Office Visit [facility] OB [address] [place] [address] [place] [phone] Matt Stapleton, DO [address] [place], [place] [address] [address] [facility] OB Start: 03-25-2024 Screening for malignant neoplasm of cervix [facility] Start: 02-16-2024 End: 02-16-2024 ambulatory 02/16/2024 8:30 AM EST Initial [facility] OB [address] [place], [place] [address] [place] [phone] [facility] Start: 02-16-2024 End: 02-16-2024 Professional / ancillary services management 02/16/2024 8:00 AM EST Ancillary Procedure [facility] OB [address] [place], [place] [address] [place] [phone] [facility] Start: 11-08-2023 COVID-19 Vaccine ( season) COVID-19 Vaccine ( season) [facility] Start: 11-08-2023 Influenza vaccination [facility] Start: 10-14-2023 End: 10-14-2023 Patient encounter procedure 10/14/2023 3:15 PM EDT Office Visit [facility] [address] [place] [phone] Jhonny Issa MD [address] [facility], [facility] [address] [place], [place] [phone] [facility] Start: 09-05-2023 Bacteria identified in Urine by Culture [facility] Start: 07-22-2023 End: 07-22-2023 Patient encounter procedure 07/22/2023 3:15 PM EDT Office Visit [facility] [address] [place] [phone] Jhonny Issa MD [address] [facility], [address] [id number] [facility] Start: 04-27-2023 End: 04-27-2023 Patient encounter procedure 04/27/2023 3:15 PM EST Office Visit [facility] [address] [place] [address] Jhonny Issa MD [address] [facility], [address] [address] [facility] Start: 03-09-2023 Behavioral Health Screening Behavioral Health Screening [facility] Start: 03-04-2023 End: 03-04-2023 Patient encounter procedure 03/04/2023 8:40 AM EST Office Visit [facility] [address] [phone] [place] [address] [phone] [facility] Start: 02-19-2023 End: 02-20-2024 Drugs of abuse screen W Reflex confirm panel - Urine [facility] Service Area Work Phone: Comment on above: Expected: 02/19/2023 (Approximate), Expires: 02/20/2024 Start: 02-19-2023 End: 02-19-2023 Patient encounter procedure 02/19/2023 10:15 AM EST Office Visit [facility] [address] [place] [address] Jhonny Issa MD [address] [facility], [address] [place] [address] [facility] Start: 11-07-2022 COVID-19 Vaccine ( season) COVID-19 Vaccine ( season) [facility] Start: 11-07-2022 Influenza vaccination Influenza Vacc ine (#1) [facility] Start: 01-21-2022 FUV, Provider: Luz Aguilar, Status: Pen, Time: 3:40 PM FUV, Provider: Luz Aguilar, Status: Pen, Time: 3:40 PM BU-LQPL-Ulzsghwc 200 Work Phone: Start: 01-20-2022 [id number], Provider: [...] Prabhakar, Status: Pen, Time: 4:00 PM [facility] Work Phone: Start: 01-01-2022 [id number], Provider: Bisi Prabhakar, Status: Pen, Time: 4:00 PM [id number], Provider: Bisi Prabhakar, Status: Pen, Time: 4:00 PM [facility] Work Phone: Start: 12-25-2021 [id number], Provider: Bisi Prabhakar, Status: Pen, Time: 4:00 PM [id number], Provider: Bisi Prabhakar, Status: Pen, Time: 4:00 PM [facility] Work Phone: Start: 12-17-2021 [id number], Provider: Bisi Prabhakar, Status: Pen, Time: 5:00 PM [id number], Provider: Bisi Prabhakar, Status: Pen, Time: 5:00 PM [facility] Work Phone: Start: 11-07-2021 Influenza vaccination INFLUENZA (#1) [facility] Start: 10-16-2021 NPV, Provider: Nafisa Bermudez, Status: Pen, Time: 1:00 PM NPV, Provider: Nafisa Bermudez, Status: Pen, Time: 1:00 PM BK-MMMH-Oogcdivy 200 Work Phone: Start: 10-08-2021 VIRFUVHOME, Provider : Rafaela Arguello, Status: Pen, Time: 11:40 AM VIRFUVHOME, Provider: Rafaela Arguello, Status: Pen, Time: 11:40 AM KU-TSIF-Eqozbzqs 200 Work Phone: Start: 09-30-2021 FUV, Provider: Luz Aguilar, Status: Pen, Time: 1:40 PM FUV, Provider: Luz Aguilar, Status: Pen, Time: 1:40 PM [facility] Work Phone: Start: 09-18-2021 [id number], Provider: Bisi Prabhakar, Status: Pen, Time: 10:00 AM [id number], Provider: Bisi Prabhakar, Status: Pen, Time: 10:00 AM [facility] Work Phone: Start: 09-06-2021 [id number], Provider: Bisi Prabhakar, Status: Pen, Time: 8:00 AM [id number], Provider: Bisi Prabhakar, Status: Pen, Time: 8:00 AM [facility] Work Phone: Start: 08-02-2021 FUV, Provider: Luz Aguilar, Status: Pen, Time: 8:20 AM FUV, Provider: Luz Aguilar, Status: Pen, Time: 8:20 AM [facility] Work Phone: Start: 06-21-2021 NPV, Provider: Luz Aguilar, Status: Pen, Time: 8:00 AM NPV, Provider: Luz Aguilar, Status: Pen, Time: 8:00 AM [facility] Work Phone: Start: 03-27-2021 COVID-19 VACCINE (3 - Booster for Pfizer series) COVID-19 VACCINE (3 - Booster for Pfizer series) [facility] Start: 12-20-2020 COVID-19 Vaccine (3 - Pfizer series) COVID-19 Vaccine (3 - Pfizer series) [facility] Start: 01-09-2020 FFD mammogram Breast screening Mamm - Ultrasound of Breast [facility] 200 Work Phone: Start: 10-26-2017 HPV TESTING HPV TESTING [facility] Start: 10-26-2009 DTaP/Tdap/Td Vaccine s (1 - Tdap) DTaP/Tdap/Td Vaccines (1 - Tdap) [facility] Start: 10-26-2008 PAP TESTING PAP TESTING [facility] Start: 10-26-2008 Screening for malignant neoplasm of cervix [facility] Start: 10-26-2006 Hepatitis B Vaccine (1 of 3 - 19+ 3-dose series) Hepatitis B Vaccine (1 of 3 - 19+ 3-dose series) [facility] Start: 10-26-2006 Hepatitis B Vaccines (1 of 3 - 19+ 3-dose series) Hepatitis B Vaccines (1 of 3 - 19+ 3-dose series) [facility] Start: 10-26-2006 Urine microalbumin profile [facility] Start: 10-26-2005 HEPATITIS C SCREENING HEPATITIS C [facility] Start: 10-26-2005 Hepatitis C screening Hepatitis C [facility] Start: 10-26-2005 HIV SCREENING HIV SCREENING [facility] Start: 10-26-2005 HIV screening HIV Screening [facility] Start: 10-26-2000 Varicella vaccination Varicell a Vaccines (1 of 2 - 13+ 2-dose series) [facility] Start: 1999 Adult depression screening assessment DEPRESSION SCREENING [facility] Start: 10-26-1988 MMR Vaccines (1 of 1 - Standard series) MMR Vaccines (1 of 1 - Standard series) [facility] Start: 10-26-1988 Varicella vaccination Varicell a Vaccines (1 of 2 - 2-dose childhood series) [facility] Start: 1987 HEPATITIS B (1 of 3 - 3-dose series) HEPATITIS B (1 of 3 - 3-dose series) [facility] Start: 1987 Hepatitis B Vaccines (1 of 3 - 3-dose series) Hepatitis B Vaccines (1 of 3 - 3-dose series) [facility] Start: 1987 HIV screening HIV Screening [facility] Start: 1987 Yearly Adult Physical Yearly Adult P hysical [facility] SV-FWTP-Ndtlacv e 200 Work Phone: NEGATED: Highlighted row has been ruled out! Planned Goals not documented IQ-ASAJ-Chnjrmez 200 Work Phone: Immunizations Immunization Date Immunization Notes Care Provider Fa ameenaty 10-25-2020 Pfizer-BioNTech COVI D-19 Vacc 30 MCG/0.3ML Intramuscular Suspension Rafaela Arguello Work Phone: DJ-KJYB-Gkrszthh 200 Work Phone: 10-04-2020 Pfizer-BioNTech COVI D-19 Vacc 30 MCG/0.3ML Intramuscular Suspension Rafaela Arguello Work Phone: PD-STWY-Solmtxsl 200 Work Phone: Payers Date Payer Category Payer Self-pay [id number] [phone] [id number] 2022 Managed Care (Private) [facility]ICAL [facility] [id number] 2022 Private Health Insurance [employer] [id number] 2020 Unknown 1987 Unknown [id number] 2.840.1.084542.3.579.2. 593 1987 Unknown [id number] 2.840.1.325568.3.579.2. 593 1987 Unknown [id number] 2.840.1.771056.3.579.2. 593 1987 Unknown [id number] 2.840.1.289793.3.579.2. 593 1987 Unknown [id number] 2.840.1.661472.3.579.2. 593 1987 Unknown [id number] 2.840.1.853189.3.579.2. 356 1987 Unknown [id number] 2.16840.1.864082.3.579.2. 356 1987 Unknown [id number] 2.16840.1.052666.3.579.2. 356 1987 Unknown [id number] 2.16840.1.049638.3.579.2. 356 1987 Unknown [id number] 2.16.840.1.402058.3.579.2. 356 1987 Unknown [id number] 2.16.840.1.922680.3.579.2. 4 1987 Unknown [id number] 2.16.840.1.089410.3.579.2. 1243 1987 Unknown [id number] 2.16.840.1.430716.3.579.2. 1243 1987 Unknown [id number] 2.16.840.1.573808.3.579.2. 1243 1987 Unknown [id number] 2.16.840.1.701451.3.579.2. 1243 1987 Unknown [id number] 2.16.840.1.181913.3.579.2. 9 1987 Unknown [id number] 2.16.840.1.053732.3.579.2. 9 1987 Unknown [id number] 2.16.840.1.387869.3.579.2. 1242 1987 Unknown [id number] 2.16.840.1.337315.3.579.2. 3 1987 Unknown [id number] 2.16.840.1.003939.3.579.2. 1243 1959 Unknown [id number] Unknown [id number] 2.16.840.1.584003.3.579.2. 531 Social History Date Type Detail Facility Assertion Tobacco smoking consumption unknown (finding) [id number] [id number] [facility] Work Phone: Start: 12-03-2022 End: 07-22-2023 Non-smoker Non-smoker [facility] Start: 02-19-2023 End: 09-05-2023 Tobacco smoking status NHIS Never smoked tobacco [facility] Start: 10-17-2021 End: 06-25-2024 Alcohol intake Current drinker of alcohol (finding) [facility] Start: 05-14-2010 History SDOH Alcohol Comment occasional [facility] Start: 1987 Sex Assigned At Not on file [facility] Start: 1987 [facility] Assigned At [facility] Start: 12-03-2022 End: 07-22-2023 Sex Assigned At [facility] Tobacco smoking stat us NHIS Tobacco smoking consumption unknown [facility] Start: 12-09-2022 End: 01-05-2024 Exposure to SARS-CoV-2 (event) Not sure [facility] Start: 02-19-2023 Tobacco use and exposure Smokeless tobacco non-user [facility] Work Phone: Start: 02-19-2023 End: 01-05-2024 Alcohol intake Defer [facility] Work Phone: National Score (1-100), lower number is lower risk 52 [facility] Functional Status Date Assessment Result Facility NEGATED: Highlighted row Functional performance Functional status health issues are not documented Disease [id number] [facility] Work Phone: Mental Status Date Assessment Result Facility NEGATED: Highlighted row Cognitive function [Interpretation] Cognitive status health issues are not documented Disease [id number] [facility] Work Phone: Clinical Notes 03-04-2012 to 01-05-2024 Maryann Davison - 01/05/2024 11:45 AM EDTPatient Roula Kaplan APRN.MARCELINA - 09/01/2023 11:20 AM Miri Issa MD - 07/22/2023 3:15 PM EDT Note [...] Ketones, Urine NEGATIVE NEGATIVE mg/dl POC Specific [place], Urine 1.010 1.005 - 1.035 POC Blood, [...] results (if any) were reviewed by Maryann Davison. Assessment/Plan Allergies, medications, history, and pertinent labs/EKGs/Imaging reviewed by Maryann Davison. Medical Decision Making No signs of acute pyelonephritis, Macrobid prescribed. She will take Azo [id number]-[id number], acetaminophen, fluids, etc. Follow-up as needed. Patient [...] resulted Medical Admin Record Patient disposition: Home Electronically signed by Maryann Davison 12:46 PM documented in this encounter [facility] Work Phone: 01-05-2024 Instructions Maryann Davison - 01/05/2024 11:45 AM EDT No signs of acute pyelonephritis, Macrobid prescribed. She will take Azo cujp-kmp-djbkrsk, acetaminophen, fluids, etc. Follow-up as needed. Patient declined urine culture after counseling. documented in this encounter [facility] Work Phone: 09-01-2023 Note HNO ID: [id number] Author: ROULA BLEDSOE APRN.OVERHEAD CLEANER Service: ? Author Type: Nurse Practitioner [...] symmetric hyperpigmented macules and papules throughout Small valles red papules throughout A/P: (D23.9) Dermatofibroma - [...] Past Histories independently gathered by the clinical support clerk and the remaining scribed note accurately describes my personal service to the patient. Roula Bledsoe APRN.MARCELINA September 01, 2023 11:26 AM Medical Decision Making: Problems: Moderate: 2+ stable chronic illnesses Risk: Low: Low risk from testing/treatment Medical Decision Making Level: 3 - Low [facility] 09-01-2023 History of Present illness Narrative [...] symmetric hyperpigmented macules and papules throughout [place] v[place]es red papules throughout A/P: (D23.9) Dermatofibroma - [...] Past Histories independently gathered by the clinical support clerk and the remaining scribed note accurately describes my personal service to the patient. Roula Bledsoe APRN.CNP September 01, 2023 11:26 AM Medical Decision Making: Problems: Moderate: 2+ stable chronic illnesses Risk: Low: Low risk from testing/treatment Medical Decision Making Level: 3 - Low documented in this encounter [facility] 07-22-2023 History of Present illness Narrative Michael [...] Insomnia due to medical condition Anxiety Jhonny Issa MD 07/22/2023 3:01 PM documented in this encounter [facility] Work Phone: 04-27-2023 History of Present illness Narrative Michael Alexandre Weller 37 y.o. SUBJECTIVE HPI Michael is [...] Insomnia due to medical condition Anxiety Jhonny Issa MD 04/27/2023 4:18 PM documented in this encounter [facility] Work Phone: 03-04-2023 History of [...] Karolina Man DO documented in this encounter [facility] Work Phone: 02-19-2023 History of Present illness Narrative Michael Weller 37 y.o. SUBJECTIVE HPI Michael 37-year-old young lady who was seen today for evaluation of a possible attention deficit disorder difficulty at work at home. 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 Jhonny Issa MD 02/19/2023 11:36 AM documented in this encounter [facility] Work Phone: 10-16-2022 Note Discharge Summary PHYSICAL THERAPY Referral/Discharge Information: Date of Discharge: 10-16-22 Date of Last Visit: 09-06-21 Date of Evaluation: 09-06-21 Reason for Discharge: Failed to schedule and/or to keep follow-up appointment(s). Signatures Electronically signed by : Bisi Prabhakar PT [facility]; Oct 16 2022 10:12AM EST (Author) [facility] 07-02-2022 Evaluation note Encounter Date Diagnosis Assessment [...] no improvement of pain. Given return precautions. [employer] Other 12-05-2022 Chief complaint Narrative - Reported* [...] virtual visit to discuss anxiety follow up [id number] 200 Work Phone: 1(937) 404-993108-11-2022 History of Present illness Narrative* Roula Bledsoe APRN.OVERHEAD CLEANER - 10/17/2021 12:40 PM EDT SKIN [...] symmetric hyperpigmented macules and papules throughout [place] valles red papules throughout Left medial knee and [...] Past Histories independently gathered by the clinical support clerk and the remaining scribed note accurately describes my personal service to the patient. Roula Bledsoe APRN.CNP October 17, 2021 1:05 PM I spent a total of 15 minutes on the date of the service which included preparing to see the patient, dnnc-pj-dxhj patient care, completing clinical documentation, performing a medically appropriate examination, and counseling and educating the patient/family/caregiver. [facility] History of Present illness Narrative* MICHAEL WELLER [...] * - breast biopsy: right breast biopsy 2017 at [facility]- fibroepithelial lesion consistent with fibroadenoma * - breast surgery: no * - breast cancer:no * Menarche: 15 * AFLB: 20 * Menopause: no * HRT:no * Family history: both grandfathers with lung cancer * no history of breast or ovarian cancer -[facility] Work Phone: 1(418) 977-689008-08-2022 History of Present illness Narrative* MICHALE WELLER is a 35 year female who [...] * - breast biopsy: right breast biopsy 2017 at [facility]- fibroepithelial lesion consistent with fibroadenoma * - breast surgery: no * - breast cancer:no * Menarche: 15 * AFLB: 20 * Menopause: no * HRT:no * Family history: both grandfathers with lung cancer * no history of breast or ovarian cancer [facility] Work Phone: 1(447) 933-238108-02-2022 Chief complaint Narrative - Reported* An interactive [...] visit to discuss insomnia, trazodone not helping [facility] [address] Work Phone: 1(272) 103-971608-02-2022 Chief complaint Narrative - Reported* An interactive [...] visit to discuss insomnia, trazodone not helping [facility] Work Phone: 1(510) 583-801405-06-2022 NoteThe [place], [place] NAME: MICHAEL WELLER DATE OF : MEDICAL REC#: [id number] TELEVISION ANNOUNCER: [address] [facility], TRANS[facility]MIT DATE: 07/12/2021 09:46:00 LIMOUSINE DRIVER DATE: 07/13/2021 21:00 DICTATING PHYSICIAN: MATT STAPLETON DICTATION DATE: 07/12/2021 12:00 OPERATIVE NOTE OPERATION DATE: 07/12/2021 PROCEDURE: Diagnostic laparoscopy. PREOPERATIVE DIAGNOSIS: Dyspareunia. POSTOPERATIVE DIAGNOSIS: Dyspareunia. ANESTHESIA: General. SURGEON: Matt Stapleton D.O. [employer]: [employer] [place] URINE OUTPUT: Yellow and clear. [...] Stapleton DO on 07/15/2021 03:07 PM EDT [facility] Signed and Approved by: DR MATT STAPLETON . 07/15/2021 15:07:00[facility]12-27-2012 History general Narrative - Reported* Type Description Date Medical History 03-04-12 [place]ology [place] [facility] [place] History left hip surgery Surgical History tonsillectomy and adenoidectomy Surgical History cholecystectomy Surgical History wisdom teeth Surgical History tumor [employer] Other Evaluation note* Diagnosis Lentigines- Primary Other dyschromia Multiple benign nevi Benign neoplasm of skin, site unspecified Valles angioma Nevus, non-neoplastic Exposure to tanning bed, sequela Hx of malignant melanoma Personal history of malignant melanoma of skin Dermatofibroma Benign neoplasm of skin, site unspecified [facility] Work Phone: Evaluation note* Diagnosis Abnormal mammogram Abnormal mammogram, unspecified documented in this encounter [facility] Work Phone: Evaluation note* Diagnosis Lump in female breast Lump or mass in breast documented in this encounter [facility] Work Phone: Evaluation note* Diagnosis Encephalopathy- Primary Unspecified encephalopathy Anxiety Anxiety state, unspecified Attention deficit hyperactivity disorder (ADHD), predominantly inattentive type documented in this encounter [facility] Work Phone: Evaluation note* Diagnosis Anxiety Anxiety state, unspecified documented in this encounter [facility] Work Phone: Evaluation note* Diagnosis Encephalopathy- Primary Unspecified encephalopathy Attention deficit hyperactivity disorder (ADHD), 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, unspecified Anxiety Anxiety state, unspecified documented in this encounter [facility] Work Phone: Evaluation note* Diagnosis Dermatofibroma- Primary Benign neoplasm of skin, site unspecified Lentigines Other dyschromia Multiple benign nevi Benign neoplasm of skin, site unspecified Valles angioma Nevus, non-neoplastic Hx of malignant melanoma Personal history of malignant melanoma of skin [facility] Diagnosis Onset Date Resolution Status UTI (urinary tract infection) [facility] Work Phone: Evaluation note* Diagnosis Acute lower UTI- Primary Urinary tract infection, site not specified Urine frequency documented in this encounter [facility] Work Phone: History of Present [...] area gets bumped. 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 [...] for walks, read books. No regular exercise. [id number] 200 Work Phone: History of Present illness [...] area gets bumped. 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 [...] for walks, read books. No regular exercise. [facility] Work Phone: History of Present illness Narrative* [...] area gets bumped. 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 [...] for walks, read books. No regular exercise. [id number]-[id number] 200 Work Phone: History of Present illness [...] discharge from lumps. 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 [...] past, but this made her sleep worse. PN-TWDB-Pzqinjeo momondo Work Phone: History of Present illness Narrative* [...] discharge from lumps. 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 [...] past, but this made her sleep worse. [facility] Work Phone: History of Present illness Narrative* Patient presents to clinic with complaints of pain during sex and mild Ricardo. Her assessment was significant for mild strength deficits and decreased movement of her pelvic floor. Patient will benefit from skilled PT to address these impairments. * Clinical Presentation: Stable and/or uncomplicated characteristics. * Level of Complexity: low [facility] Work Phone: History of Present illness Narrative* [...] urology for painful intercourse. Planning physical therapy. [place] [address] Work Phone: History of Present illness Narrative* [...] urology for painful intercourse. Planning physical therapy. [facility] Work Phone: History of Present illness Narrative* [...] able to sleep uninterrupted. * Saw Dr. Romano, breast surgery for benign fibroadenoma. * Labs ordered at previous visit. She has not been able to have these done yet. [id number]-[id number] 200 Work Phone: Instructions* Name Dates Details Instructions not documented [id number]-Vzkwoufn Work Phone: Family History Unknown Family Member [...] [place] [address] [place] [address] Referral ID Status Reason Start Date Expiration Date Visits Requested Visits Authorized [id number] Pending Review Perform Procedure 3 06/17/2023 1 1 Additional Source Comments INFORMATION SOURCE (unrecogn ized section and content) DATE CREATED AUTHOR 07/19/2021 Tameka sheikh DATE CREATED AUTHOR AUTHOR'S ORGANIZ ATION 10/16/2021 [facility] DATE CREATED AUTHOR AUTHOR'S ORGANIZ ATION 03/02/2022 [facility] DATE CREATED AUTHOR AUTHOR'S ORGANIZ ATION 10/17/2022 [employer] DATE CREATED AUTHOR AUTHOR'S ORGANIZ ATION 12/11/2022 [facility] DATE CREATED AUTHOR AUTHOR'S ORGANIZ ATION 07/25/2023 [facility] DATE CREATED AUTHOR AUTHOR'S ORGANIZ ATION 09/03/2023 [facility] DATE CREATED AUTHOR AUTHOR'S ORGANIZ ATION 09/07/2023 [facility] DATE CREATED AUTHOR AUTHOR'S ORGANIZ ATION 10/21/2023 [facility] DATE CREATED AUTHOR AUTHOR'S ORGANIZ ATION 11/14/2023 [facility] DATE CREATED AUTHOR AUTHOR'S ORGANIZ ATION 01/06/2024 Urgent Care Reason for Visit (unrecogniz ed section and content) Reason Comments Full Body Skin Check Specialty Diagnoses / Procedures Referred By Contac t Referred To Contact Radiology Diagnoses Abnormal mammogram Procedures BI mammo bilateral diagnostic tomosynthesis BI [place] [address] [place] [address] Referral ID Status Reason Start Date Expiration Date Visits Requested Visits Authorized [id number] Pending Review Perform Procedure 12/03/2022 06/01/2023 1 1 Specialty Diagnoses / Procedures Referred By Contac t Referred To Contact Radiology Diagnoses Lump in female breast Procedures BI [place] [address] [address] Referral ID Status Reason Start Date Expiration Date Visits Requested Visits Authorized [id number] Pending Review Perform Procedure 3 06/17/2023 1 1 Reason Comments New Patient Visit NPV- ADHD Specialty Diagnoses / Procedures Referred By Contac t Referred To Contact Neurology Diagnoses Anxiety Procedures NE OFFICE/OUTPATIENT NEW HIGH MDM 60-74 [place] [address] [address] Jhonny Issa MD [address] [facility], [place] [address] [place] [address] Referral ID Status Reason Start Date Expiration Date Visits Requested Visits Authorized [id number] Pending Review Specialty Services Required 12/03/2022 06/01/2023 [...] or prosecute any alcohol or drug abuse patient.[facility] the event this information is protected by the Federal Confidentiality of Alcohol and Drug Abuse Patient Records regulations: The Federal rules restrict any use of the information to criminally investigate or prosecute any alcohol or drug abuse patient.[facility] Care Teams (unrecognized sec tion and content) 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 Start Date End Date Danielle Infante [address] [address] PCP - General Family Practice 06/10/16 Team Status: Inactive Member Role Status Dates Danielle Infante DO Primary Care Provider Active Kp Alvares DO [facility] Attending Provider Active Team Status: Active Member Role Status Dates Danielle Infante DO Primary Care Provider Active Team Status: Inactive Member Role Status Dates Danielle Infante DO Primary Care Provider Active Bolivar Sherman , NURSING INFORMATION SYSTEMS COORDINATOR-C Attending Provider Activ e 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 [place] [address] [facility] [address] [place] [address] PCP - General Family Medicine 10/29/22 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 [place] [address] [address] PCP - General Family Medicine 10/29/22 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 [place] [address] [address] PCP - General Family Medicine 10/29/22 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 Start [place] [address] [address] PCP - General Family Medicine 10/29/22 Jhonny Issa MD [address] [facility], [address] [address] Consulting Physician Neurology 02/19/23 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 Start [place] [address] [address] PCP - General Family Medicine 10/29/22 Jhonny Issa MD [address] [facility], [address] [address] Consulting Physician Neurology 02/19/23 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 Start [place] [address] [address] PCP - General Family Medicine 10/29/22 [place] [address] [place] [address] [place] [address] PCP - MMO ACO PCP 03/09/23 Jhonny Issa MD [address] [facility], [facility] [address] [place] [address] Consulting Physician Neurology 02/19/23 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 Start Date End Date Danielle Infante DO [address] [facility] [place] [address] [place] [address] PCP - General Family Medicine 06/10/16 Team [...] September 05, 2023 End: September 05, 2023 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 Start Date End Date Jhonny Issa MD [address] [facility], [facility] [address] [place] [address] Consulting Physician Neurology 02/19/23 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 [employer] provides no warranty or guarantee of the accuracy or completeness of information in this document.
== END 2024-02-09 09:02 | disposition home or self-care (01) ==
LOC: NOMS 09:02
PROVIDERS: Visit Provider Obstetrics & Gynecology
DX: O36.80X0 Pregnancy with inconclusive fetal viability, not applicable or unspecified (principal); Z3A.08 8 weeks gestation of pregnancy
CPT/HCPCS: 76817

== ENCOUNTER 2024-02-26 17:12 | Emergency (ER) | payer OTHER, SELFPAY ==
[2024-02-26 17:16] VITALS: BP 129/77; PULSE 126; TEMP 37.7; O2SAT 97; BMI 33.3
--- OUTSIDE RECORDS SUMMARY | 2024-02-26 17:19 | XMS_ITS | CCD ---
Author Organization [facility] Care Team Providers Care Trip Motor Operator Name Role Phone Rafaela Arguello Unavailable Unavailable [facility] [place] [id number], WSP[facility] Unavailable Unavailable Rafaela Arguello Unavailable Unavailable [...] Unavai lable Arguello, MsJonathan Schultz Referring Unavai labtaryn Arguello, Ms. Rafaela Schultz Primary Care Unavai labtaryn Arguello, Ms. Rafaela Schultz Attending Yohanavai kaye Arguello, MsJonathan Schultz Referring Unavai labtaryn Arguello, Ms. Rafaela Schultz Primary Care Unavaliliana Aguilar, Luz Coombs Attending Unavailable Hema, MsJonathan Schultz Primary Care Aisha Aguilar, Luz Malvin Attending Unavailable Lauren, Luzcipriano Coombs Referring Unavailable Bolivar Sherman Unavailable DO Danielle Infante Primary Care Provider SCOTT Sherman Attending Provider Karolina Man DO Primary Care Provider [phone] Jhonny Issa MD Unavailable Donovan SORIA, Karolina [...] [place] Attending Unavailable DANIELLE INFANTE Primary Care Azael LAYNE Robles Attending Provider [phone] NO FAMILY, PHYSICIAN Primary Care Unavailable Swetha Andersen Attending Unavailable Swetha Andersen Admitting Unavailable KAROLINA MAN Referring Unavailable KAROLINA MAN Primary Care Unavailable KAROLINA MAN Referring Unavailable KAROLINA MAN Primary Care Unavailable MARYANN DAVISON Attending Unava ilable Danielle Infante DO Primary Care Provider MATT STAPLETON Attending Unavailable MATT STAPLETON Attending Unavailable Allergies Allergy Classification Reported Allergen(s) Allergy Type Date of Onset Reaction(s) Facility Cephalosporins (antibiotic) (1 source) loracarbef Drug Allergy [facility] Work Phone: Latex (1 source) natural latex rubber Substance Allergy [facility] Work Phone: NSAIDs (1 source) NSAIDs Drug Allergy [facility] Work Phone: (20 sources) loracarbef; Translations: [loracarbef] Drug Allergy 08-29-19 23 Unknown [id number] Work Phone: (20 sources) natural latex rubber; Translations: [LATEX] Allergy to substance (finding) 08-29-19 [place] [address] Repository (20 sources) NSAIDs; Translations: [NSAIDs] Allergy to drug (finding) Unknown [id number] Work Phone: (20 sources) Animal dander - Cats Allergy to substance (finding) [id number] Work Phone: (2 sources) Latex Drug allergy (disorder) [facility] Repository (1 source) loracarbef Drug Allergy [facility] Repository (5 sources) NSAIDs; Translations: [NSAIDS (NON-STEROIDAL ANTI-INFLAMMATOR Y DRUG)] Drug allergy (disorder) 06-11-19 17 [facility] Repository (7 sources) Non-steroidal anti-inflammator y agent Propensity to adverse reactions to drug 06-11-19 Other: See Comments, Other [facility] (8 sources) Latex Propensity to adverse reactions 08-29-19 Unknown, Rash [facility] Other (10 sources) Cat Dander; Translations: [CAT DANDER] Allergy to substance 11-29-19 23 Unknown, Itching [facility] (3 sources) NSAIDS (Non-Steroidal Anti-Inflamma; Translations: [NSAIDS (Non-Steroidal Anti-Inflamma] Allergy to substance 09-05-19 Itching [facility] (1 source) Latex Drug allergy (disorder) 09-05-19 [facility] Repository (3 sources) CAT HAIR STANDARDIZED ALLERGENIC EXTRACT; Translations: [CAT HAIR STANDARDIZED ALLERGENIC EXTRACT] Propensity to adverse reactions to drug (disorder) 11-29-19 [facility] (4 sources) Latex Allergy to substance 08-29-19 Rash [facility] (4 sources) Non-steroidal anti-inflammator y agent Drug Allergy 06-11-19 Other, Unknown, Itching [facility] (4 sources) Cat Hair Extract Allergy to substance 11-29-19 Itching [facility] Medications Current Medications Medication Drug Class(es) Dates Sig (Normalized) Sig (Original) buPROPion (20 sources) Aminoketone Start: 09-05-2023 Bupropion Hcl Active MG PO September 05, 2023 12:00am Start: 06-27-2022 End: 02-16-2024 take 1 tablet by mouth every twenty-four hours in the morning buPROPion XL (Wellbutrin XL) 300 MG 24 hr tablet Take 300 mg by mouth in the morning. 06/27/2022 02/16/2024 Discontinued (Other) Start: 10-08-2021 End: 08-31-2023 take 1 tablet [...] tablet by didi th once daily drospirenone-e.estradioL-lm.FA (Armando, Lalitha) 3-0.02-0.451 mg [...] 7 days. 14 capsule 01/05/2024 01/12/2024 Active ondansetron 4 mg disintegrating oral tablet (1 source) Serotonin-3 Receptor Antagonist Start: 02-12-2024 End: 03-13-2024 take 1 tablet by mouth every six hours for nausea ondansetron ODT (Zofran-ODT) 4 MG disintegrating tablet Indications: Nausea and vomiting in Take 1 tablet (4 mg) by mouth every 6 (six) hours if needed for nausea or vomiting 30 tablet 2 02/12/2024 03/13/2024 Active predniSONE 20 mg oral tablet (1 source) Start: 07-02-2022 take 1 tablet by mouth every twelve hours predniSONE 20 MG 1 tablet Orally twice a day for 7 Jun, Active Progesterone 200 MG suppository (3 sources) Start: 01-26-2024 End: 02-25-2024 Progesterone 200 MG suppository Indications: History of miscarriage Insert 200 mg into the vagina at bedtime Insert suppository vaginally every night at bedtime until 12 weeks gestation 30 suppository 3 01/26/2024 02/25/2024 Active traZODone hydrochloride 50 mg oral tablet (20 sources) Serotonin Reuptake Inhibitor Start: 06-04-2021 End: 02-16-2024 traZODone (Desyrel) 50 MG tablet Take 50 [...] 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 Chronic Esophageal disorders (10 sources) Gastroesophageal reflux disease; Translations: [Gastro-esophageal reflux disease without esophagitis] Onset: 08-28-2022 02-10-2023 Chronic Genitourinary symptoms and ill-defined conditions (20 sources) Increased frequency of urination; Translations: [Urinary frequency] Onset: 09-06-2021 11-28-2022 Episodic Menstrual disorders (1 source) Missed period; Translations: [Irregular menstruation, unspecified] 02-16-2024 Chronic Miscellaneous mental health disorders (1 source) Globus [...] mass index (BMI) 33.0-33.9, adult] Chronic Other and delivery including normal (2 sources) ; Translations: [Encounter for supervision of normal , unspecified, unspecified trimester] 02-16-2024 Episodic Other skin disorders (2 sources) Lentiginosis; Translations: [Other melanin hyperpigmentation] Episodic Other upper respiratory disease (9 sources) Chronic nasopharyngitis; Translations: [Chronic nasopharyngitis] Onset: [...] 11-28-2022 Episodic Diseases of mouth; excluding dental (9 sources) Sialoadenitis; Translations: [Sialoadenitis, unspecified] Onset: 08-28-2022 [...] Test Name Value Interpretation Reference Range Facility HCG ( test) Ql (U)o n 02-16-2024 Interpretation and review of laboratory results Abnormal [facility] Preg Test, Ur Positive Negative [facility] Urinalysis macro (dipstick) panel (U)on 02-16-2024 Bilirubin, UA Negative Negative - 4(70) +++ mg/dL [facility] Blood, UA Negative Negative - 50 Shaun/mcL [facility] Clarity, UA Clear [facility] Color, UA Yellow [facility] Glucose, UA Negative Negative - 1999(110) ++++ mg/dL [facility] Interpretation and review of laboratory results Normal [facility] Ketones, UA Negative Negative - 160(16) ++++ mg/dL [facility] Leukocytes, UA Negative Negative - 500+++ Denys/mcL [facility] Nitrite, UA Negative Negative - Positive [facility] pH, UA 6.5 5 - 9 [facility] Protein, UA Negative Negative - 1999(20) ++++ mg/dL [facility] Spec Grav, UA 1.02 1 - 1.03 [facility] Urobilinogen, UA 1.0 0.2 - 12 mg/dL [facility] TBH PREG QUANT HCGon 024 HCG QUANTITATIVE 94023 mIU/mL [facility] Comment on above: 5-50 0.2-1 WEEK 50-500 1-2 WEEKS 100-5,000 2-3 WEEKS 500-10,000 3-4 WEEKS 1,000-50,000 4-5 WEEKS 10,000-100,000 5-6 WEEKS 15,000-200,000 6-8 WEEKS 10,000-100,000 2-3 MONTHS [facility] PREG QUANT HCGon 024 HCG QUANTITATIVE 5650 mIU/mL [facility] Comment on above: 5-50 0.2-1 WEEK 50-500 1-2 WEEKS 100-5,000 2-3 WEEKS 500-10,000 3-4 WEEKS 1,000-50,000 4-5 WEEKS 10,000-100,000 5-6 WEEKS 15,000-200,000 6-8 WEEKS 10,000-100,000 2-3 MONTHS [facility] HCG ( test) Ql (U)o n [...] Work Phone: Hemoglobin Ql (U) Negative NEGATIVE [facility] Work Phone: Interpretation and review of laboratory [...] Phone: POC Bilirubin, Urine Negative NEGATIVE Univ [facility] Work Phone: POC Color, Urine Yellow Straw, [place] ow, Light-Yellow [facility] Work Phone: POC Ketones, Urine Negative NEGATIVE mg/dl [facility] Work Phone: POC Protein, Urine Negative NEGATIVE, 30 (1+) mg/dl [facility] Work Phone: POC Specific [place], Urine 1.010 1.005 - 1.035 [facility] Work Phone: POC Urobilinogen, Urine 0.2 0.2, 1.0 EU/DL [facility] Work Phone: [facility] Work Phone: IGP,APTIMA HPV,AGE GDLNon AGE GDLN ACOG TESTING Note . [facility] Comment on above: TESTS RESULT FLAG UN ITS REF RANGE LAB Clinician Provided Cytology Information Source.............Cervix;Endocervix No. of containers..01 ThinPrep Vial Age Algo ACOG Katherin... FLAG LEGEND: L-Low Normal,H-High Normal,LL-Alert Low,HH-Alert High <-Panic Low,>-Panic High,A-Abnormal,AA-Critical Abnormal Performed at: 01 =[address] [place] [address] Lacy Perez MD, HPV APTIMA Negative Negative [facility] Comment on above: This nucleic acid am plification test detects fourteen high- risk HPV types (16,18,31,33,35,39,45,51,52,56,58,59,66,68) without differentiation. Performed at: =[facility] [address] [id number] [employer] Boiler: Lacy Perez MD, Phone: [phone] Performed at: [address] [id number] [employer]: Lacy Perez MD, Phone: [phone] IGP, APTIMA HPV, RFX 16/18,45 Note . [facility] Comment on above: TESTS RESULT FLAG UN ITS REF RANGE LAB DIAGNOSIS: 02 NEGATIVE FOR INTRAEPITHELIAL LESION OR MALIGNANCY. Specimen adequacy: 02 Satisfactory for evaluation. Endocervical and/or squamous metaplastic cells (endocervical component) are present. Performed by: 02 Maryse Tang, Brokerage Office Manager (ASCP) . 02 Note: Note 02 The Pap smear is a screening test designed to aid in the detection of premalignant and malignant conditions of the uterine cervix. It is not a diagnostic procedure and should not be used as the sole means of detecting cervical cancer. Both false-positive and false-negative reports do occur. Test Methodology: Note 02 This liquid based ThinPrep(R) pap test was screened with the use of an image guided system. HPV Genotype Reflex Note 02 Criteria not met, HPV Genotype not performed. FLAG LEGEND: L-Low Normal,H-High Normal,LL-Alert Low,HH-Alert High <-Panic Low,>-Panic High,A-Abnormal,AA-Critical Abnormal Performed at: [address] [address] Lacy Perez MD, BRUSH-SPATULA CERVIX ENDOCERVIX [facility] Urine Cultureon 09-05-2023 Bacteria identified Cx Nom (U) <9,000 colonies/ml mixed bacterial skin contaminants 2 Days PERFORMED BY: [place] [id number] PATHOLOGIST MEDICAL ASST DAVID CHILD M.D. Normal [facility] Comment on above: Performed By: #### C UU #### [place] [id number] [facility] CNOVon 09-01-2023 CNOV Office Visit (AMDERM ) MICHAEL WELLER ([id number]) 1985 F Date Time Provider Department 09/01/23 [...] Past Histories independently gathered by the clinical community support associate and the remaining scribed note accurately describes [...] - dexmethylphenidate (more content not included)... Normal [facility] Drugs of abuse screen W Refl ex confirm panel (U)on 02-19-2023 Amphetamines Screen Ql (U) Negative Normal Presumptive Negative [facility] Comment on above: Order Comment: [...] 8 7428-9 #### ALEJANDRO SUERO RIO REN ([id number]) [facility] ([facility]) [address] [place] [address] Barbiturates Screen Ql (U) Negative Normal Presumptive Negative [facility] Comment on above: Order Comment: [...] By: #### 8 7428-9 #### ALEJANDRO RAMOS ([id number]) [facility] ([facility]) [address] [place] [address] Benzodiazepines Ql (U) Negative Normal Presumptive Negative [facility] Comment on above: Order Comment: [...] 8 7428-9 #### ALEJANDRO SUERO RIO REN ([id number]) [facility] ([facility]) [address] [place] [address] Benzoylecgonine Screen Ql (U) Negative Normal Presumptive Negative [facility] Comment on above: Order Comment: [...] 8 7428-9 #### ALEJANDRO SUERO RIO REN ([id number]) [facility] ([facility]) [address] [place] [address] Cannabinoids Screen Ql (U) Negative Normal Presumptive Negative [facility] Comment on above: Order Comment: [...] By: #### 8 7428-9 #### ALEJANDRO SUERO [facility] ([id number]) [facility] ([facility]) [address] [place] [address] fentaNYL+Norfentanyl Screen Ql (U) Negative Normal Presumptive Negative [facility] Comment on above: Order Comment: [...] 8 7428-9 #### ALEJANDRO SUERO RIO REN ([id number]) [facility] ([facility]) [address] [place] [address] Opiates Screen Ql (U) Negative Normal Presum ptive Negative [facility] Comment on above: Order Comment: [...] 8 7428-9 #### ALEJANDRO SUERO RIO REN ([id number]) [facility] ([facility]) [address] [place] [address] oxyCODONE+oxyMORphone Screen Ql (U) Negative Normal Presumptive Negative [facility] Comment on above: Order Comment: [...] Performed By: #### 8 7428-9 #### ALEJANDRO [facility] ([id number]) [facility] ([facility]) [address] [place] [address] Phencyclidine Ql (U) Negative Normal Presump tive Negative [facility] Comment on above: Order Comment: [...] Performed By: #### 8 7428-9 #### ALEJANDRO PIO MCCLURE ([id number]) [facility] ([facility]) [address] [place] [address] BI MAMMO BILATERAL DIAGNOSTI C TOMOSYNTHESISon 12-19-2022 BI MAMMO BILATERAL DIAGNOSTIC TOMOSYNTHESIS Interpreted By: Mohan Romano and Avery Ross STUDY: BI MAMMO BILATERAL DIAGNOSTIC TOMOSYNTHESIS; BI US BREAST LIMITED LEFT; 12/19/2022 9:42 am; 12/19/2022 10:52 am ACCESSION NUMBER(S): [id number]; [id number] ORDERING CLINICIAN: KAROLINA MAN INDICATION: Annual screening [...] axillary abnormality was performed by a registered account consultant. No sonographic abnormalities are seen in the [...] any future breast imaging appointments, please call [phone] ([phone]). MACRO: None Signed by: Mohan Romano 12/19/2022 11:32 AM Dictation workstation: [id number] [facility] BI US BREAST LIMITED LEFTon 12-19-2022 BI US BREAST LIMITED LEFT Interpreted By: Mohan Romano and Avery Ross STUDY: BI MAMMO BILATERAL DIAGNOSTIC TOMOSYNTHESIS; BI US BREAST LIMITED LEFT; 12/19/2022 9:42 am; 12/19/2022 10:52 am ACCESSION NUMBER(S): [id number]; [id number] ORDERING CLINICIAN: KAROLINA MAN INDICATION: Annual screening [...] axillary abnormality was performed by a registered account consultant. No sonographic abnormalities are seen in the [...] any future breast imaging appointments, please call [phone] ([phone]). MACRO: None Signed by: oMhan Romano 12/19/2022 11:32 AM Dictation workstation: [id number] [facility] DBT Breast - bilateral diagn osticon [...] any future breast imaging appointments, please call [phone] ([phone]). MACRO: None Signed by: Mohan Romano 12/19/2022 11:32 AM Dictation workstation: [id number] Interpreted By: Mohan Romano, and Jakob Wei STUDY: BI MAMMO BILATERAL DIAGNOSTIC TOMOSYNTHESIS; BI US BREAST LIMITED LEFT; 12/19/2022 9:42 am; 12/19/2022 10:52 am ACCESSION NUMBER(S): [id number]; [id number] ORDERING CLINICIAN: KAROLINA MAN INDICATION: Annual screening [...] axillary abnormality was performed by a registered account consultant. No sonographic abnormalities are seen in the [...] [Mass/Vol] 4.6 g/dL Normal 3.4 - 5.0 [facility] Comment on above: Performed By: #### C MP #### [facility] [address] [place] [address] ALP [Catalytic activity/Vol] 63 U/L Normal 33 - 110 [facility] Comment on above: Performed By: #### C MP #### [facility] [address] [place] [address] ALT [Catalytic activity/Vol] 23 U/L Normal 7 - 45 [facility] Comment on above: Result Comment: Lacie ents treated with Sulfasalazine may generate falsely decreased results for ALT. Performed By: #### C MP #### [facility] [address] [place] [address] Anion gap [Moles/Vol] 14 mmol/L Normal 10 - 20 [facility] Comment on above: Performed By: #### C MP #### [facility] [address] [place] [address] AST [Catalytic activity/Vol] 22 U/L Normal 9 - 39 [facility] Comment on above: Performed By: #### C MP #### [facility] [address] [place] [address] Bilirubin [Mass/Vol] 0.3 mg/dL Normal 0.0 - 1.2 [facility] Comment on above: Performed By: #### C MP #### [facility] [address] [place] [address] Calcium [Mass/Vol] 9.2 mg/dL Normal 8.6 - 10.6 [facility] Comment on above: Performed By: #### C MP #### [facility] [address] [place] [address] Chloride [Moles/Vol] 102 mmol/L Normal 98 - 107 [facility] Comment on above: Performed By: #### C MP #### [facility] [address] [place] [address] Creatinine [Mass/Vol] 0.66 mg/dL Normal 0.50 - 1.05 [facility] Comment on above: Performed By: #### C MP #### [facility] [address] [place] [address] eGFR FEMALE >90 Normal >90 [facility] Comment on above: Result Comment: CALC ULATIONS OF ESTIMATED GFR ARE PERFORMED USING THE 2020 CKD-EPI STUDY REFIT EQUATION WITHOUT THE RACE VARIABLE FOR THE IDMS-TRACEABLE CREATININE METHODS. https://jasn.asnjournals.org/content//ASN.935077 3268 Performed By: #### C MP #### [facility] [address] [place] [address] Glucose [Mass/Vol] 82 mg/dL Normal 74 - 99 [facility] Comment on above: Performed By: #### C MP #### [facility] [address] [place] [address] HCO3 (Bld) [Moles/Vol] 25 mmol/L Normal 21 - 32 [facility] Comment on above: Performed By: #### C MP #### [facility] [address] [place] [address] Potassium [Moles/Vol] 3.9 mmol/L Normal 3.5 - 5.3 [facility] Comment on above: Performed By: #### C MP #### [facility] [address] [place] [address] Protein [Mass/Vol] 7.2 g/dL Normal 6.4 - 8.2 [facility] Comment on above: Performed By: #### C MP #### [facility] [address] [place] [address] Sodium [Moles/Vol] 137 mmol/L Normal 136 - 145 [facility] Comment on above: Performed By: #### C MP #### [facility] [address] [place] [address] Urea nitrogen [Mass/Vol] 17 mg/dL Normal 6 - 23 [facility] Comment on above: Performed By: #### C MP #### [facility] [address] [place] [address] VITAMIN D, 25-HYDROXYon 11-08 VITAMIN D, 25-HYDROXY 36 ng/mL Normal [facility] Comment on above: Result Comment: . DEFICIENCY: < 20 NG/ML INSUFFICIENCY: 20-29 NG/ML SUFFICIENCY: 30-100 NG/ML THIS ASSAY ACCURATELY QUANTIFIES THE SUM OF VITAMIN D3, 25-HYDROXY AND VIT D2,25-HYDROXY. Performed By: #### V TDOH #### [facility] [address] [place] [address] COMPREHENSIVE PANELon 2022 Lab Specimen Source Normal [facility] Comment on above: Performed By: #### C MP #### [facility] [address] [place] Performed By: #### V TDOH #### [facility] [address] [place] [address] XR foot RT min 3V*on 023 XR foot RT min 3V* [facility] DNP [employer] Other XR foot RT min 3V* [facility] DNP [employer] Other XR foot RT min 3V* [address] [place] [address] DNP [employer] Other XR foot RT min 3V* [place] [address] [facility] D[facility] [employer] Other XR foot RT min 3V* XRay Report Directed Edge [facility] DNP [employer] Other XR foot RT min 3V* Signed [employer] Other XR foot RT min 3V* Patient: Michael Weller MR#: [id number] [facility] DNP [employer] Other XR foot RT min 3V* [id number] [place] [employer] Other XR foot RT min 3V* : 1985 Acct:[id number] [employer] Other XR foot RT min 3V* Age/Sex: 36 / F ADM Date: 07/02/22 [employer] Other XR foot RT min 3V* Loc: [id number] Room: Type: [facility] [employer] Other XR foot RT min 3V* Attending Dr: Bolivar Sherman [employer] Other XR foot RT min 3V* Copies to: Bolivar Pereyra Lane [employer] Other XR foot RT min 3V* Ordering Provider: Bolivar Pereyra [employer] Other XR foot RT min 3V* Date of Service: 07/02/22 [employer] Other XR foot RT min 3V* XR/XR foot RT min 3V*: Right foot pain [employer] Other XR foot RT min 3V* 3 views RIGHT foot [employer] Other XR foot RT min 3V* COMPARISON:None N [employer] Other XR foot RT min 3V* HISTORY: RIGHT 5th metatarsal pain for one week [employer] Other XR foot RT min 3V* Acute findings: None [employer] Other XR foot RT min 3V* Degenerative change: Unremarkable [employer] Other XR foot RT min 3V* Soft tissue findings : Unremarkable [employer] Other XR foot RT min 3V* Joint effusion: None [employer] Other XR foot RT min 3V* Postop changes: None [employer] Other XR foot RT min 3V* XR/XR foot RT min 3V* [employer] Other XR foot RT min 3V* IMPRESSION:No acute findings [employer] Other XR foot RT min 3V* Impression dictated by: Roddy Villegas M.D.07/02/2022 1:27 PM [employer] Other XR foot RT min 3V* Dictation Location: [place] [address] [employer] Other XR foot RT min 3V* Transcribed By: PWS 07/02/22 1327 [employer] Other XR foot RT min 3V* Dictated By: Roddy Villegas DO 07/02/22 1320 [employer] Other XR foot RT min 3V* Signed By: [employer] Other XR foot RT min 3V* 07/02/22 1325 [facility] [employer] Other Office Visit (Primary Care F orms)on [...] Anxiety; YOEL = N; Verified Transmission to [id number]; Last Updated By: Bowen Olmedo; 02/10/2022 3:45:08 [...] BREAST ULTRASOUND; 10/14/2021 3:38 pm ACCESSION NUMBER(S): [id number] ORDERING CLINICIAN: GRAZYNA ROMANO INDICATION: Patient presents with right axillary painful palpable mass for the last 2 years. History of benign right breast mass with unknown pathology in right breast. COMPARISON: Mammogram 06/21/2021, 07/06/2018, 01/08/2018. Breast ultrasound 06/21/2021, 04/23/2020, 07/15/2019, 02/02/2019 FINDINGS: Targeted ultrasound was performed of the right axilla by a registered account consultant using elastography. Within the right axilla, no sonographic abnormality is present. The tissues are soft on elastography. Incidental note of normal appearing right axillary lymph node. IMPRESSION: No sonographic evidence of malignancy. Recommendation is clinical follow-up for patient's symptomatology. Screening mammogram in June 2022. BI-RADS CATEGORY: Category: 2 - Benign. Recommendation: Clinical follow-up for symptomatology. For any future breast imaging appointments, please call [phone] ([phone]). I personally reviewed the images/study and I agree with the findings as stated by resident assistant Brandt Camarillo MD. Electronically signed by: JAYME STEWART MD Normal [facility] Ultrasound Limited [place] 10-14-2021 MG Breast Screening Normal - ljmd [employer] Work Phone: Albumin [Mass/volume] in Ser um or PlasmaOrdered By: Kp Alvares on 10-07-2021 Albumin [Mass/Vol] 3.9 g/dL 3.2-5.5 [facility] Basophils Auto (Bld) [#/Vol] Ordered By: Kp Alvares on 10-07-2021 Basophils (Bld) [#/Vol] 0.0 10*3/uL 0.0-0.2 [facility] Basophils/100 WBC Auto (Bld) Ordered By: Kp Alvares on 10-07-2021 Basophils/100 WBC (Bld) 0.6 % . [facility] Blood hemoglobin measurement (mass/volume)Ordered By: Kp Alvares on 10-07-2021 Hemoglobin (Bld) [Mass/Vol] 12.9 g/dL 11.8-15.4 [facility] Blood leukocytes automated c ount (number/volume)Ordered By: Kp Alvares on 10-07-2021 WBC (Bld) [#/Vol] 6.7 10*3/uL 4.5-11.0 [facility] Cholesterol [Mass/volume] in Serum or PlasmaOrdered By: Kp Alvares on 10-07-2021 Cholesterol [Mass/Vol] 192 mg/dL 140-200 [facility] Comment on above: Chol less than 200 m g/dl low risk Chol 201-239 mg/dl borderline risk Chol 240 mg/dl and greater high risk Cholesterol in LDL Calc [Mas s/Vol]Ordered By: Kp Alvares on 10-07-2021 Cholesterol in LDL [Mass/Vol] 104 mg/dL 0-100 [facility] Comment on above: LDL ATP III CLASSIFI CATION LDL less than 100 mg/dL Optimal LDL 100-129 mg/dL Near or above optimal LDL 130-159 mg/dL Borderline high LDL 160-189 mg/dL High LDL greater than 189 mg/dL Very high Cholesterol in VLDL Calc [Ma ss/Vol]Ordered By: Kp Alvares on 10-07-2021 Cholesterol in VLDL [Mass/Vol] 49 mg/dL [facility] Creatinine and Glomerular fi ltration rate.predicted panel (S/P/Bld)Ordered By: Kp Alvares on 10-07-2021 Creatinine [Mass/Vol] 0.60 mg/dL 0.44-1.03 [facility] Eosinophils Auto (Bld) [#/Vo l]Ordered By: Kp Alvares on 10-07-2021 Eosinophils (Bld) [#/Vol] 0.0 10*3/uL 0.0-0.45 [facility] Eosinophils/100 WBC Auto (Bl d)Ordered By: Kp Alvares on 10-07-2021 Eosinophils/100 WBC (Bld) 0.1 % . [facility] Erythrocyte distribution wid th Auto (RBC) [Ratio]Ordered By: Kp Alvares on 10-07-2021 Erythrocyte distribution width (RBC) [Ratio] 14.1 % 11.9-15.3 [facility] Estimated glomerular filtrat ion rate (GFR) non- AmericanOrdered By: Kp Alvares on 10-07-2021 GFR/1.73 sq M.predicted among non-blacks MDRD (S/P/Bld) [Vol rate/Area] > 60 mL/Min [facility] Globulin Calc (S) [Mass/Vol] Ordered By: Kp Alvares on 10-07-2021 Globulin (S) [Mass/Vol] 2.7 g/dL [facility] Hematocrit Auto (Bld) [Volum e fraction]Ordered By: Kp Alvares on 10-07-2021 Hematocrit (Bld) [Volume fraction] 39.2 % 34.0-46.4 [facility] Laboratory - Hematology and Cell countsOrdered By: Kp Alvares on 10-07-2021 Nucleated RBC/100 WBC (Bld) [Ratio] 0.0 % 0-0.5 [facility] Lymphocytes Auto (Bld) [#/Vo l]Ordered By: Kp Alvares on 10-07-2021 Lymphocytes (Bld) [#/Vol] 2.0 10*3/uL 1.00-4.8 [facility] Lymphocytes/100 WBC Auto (Bl d)Ordered By: Kp Alvares on 10-07-2021 Lymphocytes/100 WBC (Bld) 30.2 % . [facility] MCH Auto (RBC) [Entitic mass ]Ordered By: Kp Alvares on 10-07-2021 MCH (RBC) [Entitic mass] 28.2 pg 24.7-34.3 [facility] MCHC Auto (RBC) [Mass/Vol]Or dered By: Kp Alvares on 10-07-2021 MCHC (RBC) [Mass/Vol] 33.0 g/dL 32.0-35.0 [facility] MCV Auto (RBC) [Entitic vol] Ordered By: Kp Alvares on 10-07-2021 MCV (RBC) [Entitic vol] 85.5 fL 80-100 [facility] Monocytes Auto (Bld) [#/Vol] Ordered By: Kp Alvares on 10-07-2021 Monocytes (Bld) [#/Vol] 0.4 10*3/uL 0.0-0.8 [facility] Monocytes/100 WBC Auto (Bld) Ordered By: Kp Alvares on 10-07-2021 Monocytes/100 WBC (Bld) 5.4 % . [facility] Neutrophils Auto (Bld) [#/Vo l]Ordered By: Kp Alvares on 10-07-2021 Neutrophils (Bld) [#/Vol] 4.2 10*3/uL 1.8-7.7 [facility] Neutrophils/100 WBC Auto (Bl d)Ordered By: Kp Alvares on 10-07-2021 Neutrophils/100 WBC (Bld) 63.7 % . [facility] No Panel InformationOrdered By: Kp Alvares on 10-07-2021 Estimated GFR () > 60 mL/Min [facility] Comment on above: GFR estimated refere nce range: According to KDOQI guidelines, <60 ml/min/1.73m2 is sufficient to diagnose a patient with chronic kidney disease. Pharmacy Creatinine Clearance (Chem N/A [facility] Platelet mean volume Auto (B ld) [Entitic vol]Ordered By: Kp Alvares on 10-07-2021 Platelet mean volume (Bld) [Entitic vol] 11.4 fL 6.3-10.7 [facility] Platelets Auto (Bld) [#/Vol] Ordered By: Kp Alvares on 10-07-2021 Platelets (Bld) [#/Vol] 164 10*3/uL 150-450 [facility] Protein [Mass/volume] in Ser um or PlasmaOrdered By: Kp Alvares on 10-07-2021 Protein [Mass/Vol] 6.6 g/dL 6.1-7.9 [facility] RBC Auto (Bld) [#/Vol]Ordere d By: Kp Alvares on 10-07-2021 RBC (Bld) [#/Vol] 4.59 10*6/uL 3.60-5.00 [facility] Serum or plasma alanine bynum otransferase measurement without P-5'-P (enzymatic activiOrdered By: Kp Alvares on 10-07-2021 ALT No additional P-5'-P [Catalytic activity/Vol] 16 U/L 10-60 [facility] Serum or plasma albumin/glob ulin mass ratioOrdered By: Kp Alvares on 10-07-2021 Albumin/Globulin [Mass ratio] 1.4 {ratio} [facility] Serum or plasma alkaline jenn sphatase measurement (enzymatic activity/volume)Ordered By: Kp Alvares on 10-07-2021 ALP [Catalytic activity/Vol] 55 U/L 32-92 [facility] Serum or plasma aspartate am inotransferase measurement (enzymatic activity/volume)Ordered By: Kp Alvares on 10-07-2021 AST [Catalytic activity/Vol] 16 U/L 10-42 [facility] Serum or plasma calcium marlon urement (mass/volume)Ordered By: Kp Alvares on 10-07-2021 Calcium [Mass/Vol] 9.2 mg/dL 8.2-10.2 [facility] Serum or plasma chloride any surement (moles/volume)Ordered By: Kp Alvares on 10-07-2021 Chloride [Moles/Vol] 102 mmol/L 95-114 [facility] Serum or plasma glucose marlon urement (mass/volume)Ordered By: Kp Alvares on 10-07-2021 Glucose [Mass/Vol] 86 mg/dL 70-100 [facility] Comment on above: ADA recommended refe rence range Random Glucose Reference Range is dependent on time and content of last meal. Glucose of more than 200 mg/dL in a nonstressed, ambulatory subject supports the diagnosis of Diabetes Mellitus. Serum or plasma high density lipoprotein (HDL) cholesterol measurementOrdered By: Kp Alvares on 10-07-2021 Cholesterol in HDL [Mass/Vol] 39 mg/dL 35-85 [facility] Comment on above: HDL CHOL ATP-III CLA SSIFICATION Cardiovascular Risk HDL > or equal to 60 mg/dL LOW HDL < 40 mg/dL HIGH Serum or plasma potassium me asurement (moles/volume)Ordered By: Kp Alvares on 10-07-2021 Potassium [Moles/Vol] 4.1 mmol/L 3.5-5.1 [facility] Serum or plasma sodium measu rement (moles/volume)Ordered By: Kp Alvares on 10-07-2021 Sodium [Moles/Vol] 134 mmol/L 136-146 [facility] Serum or plasma total biliru bin measurement (mass/volume)Ordered By: Kp Alvares on 10-07-2021 Bilirubin [Mass/Vol] 0.6 mg/dL 0.3-1.2 [facility] Serum or plasma total carbon dioxide measurement (moles/volume)Ordered By: Kp Alvares on 10-07-2021 CO2 [Moles/Vol] 25.9 mmol/L 22.0-30.0 [facility] Serum or plasma total choles terol/high density lipoprotein (HDL) cholesterol mass ratOrdered By: Kp Alvares on 10-07-2021 Cholesterol.total/Cho lesterol in HDL [Mass ratio] 4.9 {ratio} <5.0 [facility] Serum or plasma urea nitroge n measurement (mass/volume)Ordered By: Kp Alvares on 10-07-2021 Urea nitrogen [Mass/Vol] 10 mg/dL 9-23 [facility] TSH DL <= 0.005 mIU/L QnOrde red By: Kp Alvares on 10-07-2021 TSH Qn 2.68 m[IU]/L 0.45-5.33 [facility] Triglyceride [Mass/volume] i n Serum or PlasmaOrdered By: Kp Alvares on 10-07-2021 Triglyceride [Mass/Vol] 246 mg/dL 35-149 [facility] Comment on above: TRIG ATP III CLASSIF ICATION TRIG less than 150 mg/dL Normal TRIG 150-199 mg/dL Borderline high TRIG 200-500 mg/dL High TRIG greater than 500 mg/dL Very high Standard traceable to the Center for Disease Conrtrol and Prevention (CDC) test method. CBC AUTO DIFFon 07-12-2021 BASO # 0.0 103/ul Normal 0.0-0.1 [facility] Comment on above: Performed By: #### C BC #### [facility] [address] [place], [place] [address] Dr. Kalyn Gutierrez Basophils/100 WBC (Bld) 0.4 % Normal 0.2-2.0 [facility] Comment on above: Performed By: #### C BC #### [facility] [address] [place] [address] Dr. Kalyn Gutierrez EO # 0.0 103/ul Normal 0.0-0.7 [facility] Comment on above: Performed By: #### C BC #### [facility] [address] [place] [address] Dr. Kalyn Gutierrez Eosinophils/100 WBC (Bld) 0.0 % Critically low 0.9-7.0 [facility] Comment on above: Performed By: #### C BC #### [facility] [address] [place] [address] Dr. Kalyn Gutierrez Erythrocyte distribution width (RBC) [Ratio] 12.8 % Normal 11.0-15.0 [facility] Comment on above: Performed By: #### C BC #### [facility] [address] [place] [address] Dr. Kalyn Gutierrez Hematocrit (Bld) [Volume fraction] 38.8 % Normal 36.0-48.0 [facility] Comment on above: Performed By: #### C BC #### [facility] [address] [place] [address] Dr. Kalyn Gutierrez Hemoglobin (Bld) [Mass/Vol] 12.4 g/dL Normal 12.0-16.0 [facility] Comment on above: Performed By: #### C BC #### [facility] [address] [place] [address] Dr. Kalyn Gutierrez IG # 0.02 10e3/ul Normal 0.00-0.03 [facility] Comment on above: Performed By: #### C BC #### [facility] [address] [place] [address] Dr. Kalyn Gutierrez IG % 0.3 % Normal 0.0-0.5 [facility] Comment on above: Performed By: #### C BC #### [facility] [address] [place] [address] Dr. Kalyn Gutierrez LYMPH # 1.8 103/ul Normal 1.2-3.8 [facility] Comment on above: Performed By: #### C BC #### [facility] [address] [place] [address] Dr. Kalyn Gutierrez Lymphocytes/100 WBC (Bld) 25.0 % Normal 20.5-60.0 [facility] Comment on above: Performed By: #### C BC #### [facility] [address] [place] [address] Dr. Kalyn Gutierrez MANUAL DIFF REQ NO Normal The [facility] Comment on above: Performed By: #### C BC #### [facility] [address] [place] [address] Dr. Kalyn Gutierrez MCH (RBC) [Entitic mass] 28.2 pg Normal 26.7-34.0 [facility] Comment on above: Performed By: #### C BC #### [facility] [address] [place] [address] Dr. Kalyn Gutierrez MCHC (RBC) [Mass/Vol] 32.0 g/dL Normal 29.9-35.2 [facility] Comment on above: Performed By: #### C BC #### [facility] [address] [place] [address] Dr. Kalyn Gutierrez MCV (RBC) [Entitic vol] 88.4 fL Normal 81.0-99.0 [facility] Comment on above: Performed By: #### C BC #### [facility] [address] [place] [address] Dr. Kalyn Gutierrez MONO # 0.6 103/ul Normal 0.3-0.8 [facility] Comment on above: Performed By: #### C BC #### [facility] [address] [place] [address] Dr. Kalyn Gutierrez Monocytes/100 WBC (Bld) 8.7 % Normal 1.7-12.0 [facility] Comment on above: Performed By: #### C BC #### [facility] [address] [place] [address] Dr. Kalyn Gutierrez NEUT # 4.8 103/ul Normal 1.4-6.5 [facility] Comment on above: Performed By: #### C BC #### [facility] [address] [place] [address] Dr. Kalyn Gutierrez Neutrophils/100 WBC (Bld) 65.6 % Normal 43.0-75.0 [facility] Comment on above: Performed By: #### C BC #### [facility] [address] [place] [address] Dr. Kalyn Gutierrez Platelet mean volume (Bld) [Entitic vol] 12.3 fL Normal 9.5-13.5 [facility] Comment on above: Performed By: #### C BC #### [facility] [address] [place] [address] Dr. Kalyn Gutierrez PLT 183 103/ul Normal 150-450 [facility] Comment on above: Performed By: #### C BC #### [facility] [address] [place] [address] Dr. Kalyn Gutierrez RBC 4.39 106/ul Normal 4.20-5.40 [facility] Comment on above: Performed By: #### C BC #### [facility] [address] [place] [address] Dr. Kalyn Gutierrez WBC 7.3 103/ul Normal 4.0-11.0 [facility] Comment on above: Performed By: #### C BC #### [facility] [address] [place] [address] Dr. Kalyn Gutierrez PREG QUANT HCGon 07-12-2021 HCG QUANT <1 Normal [facility] Comment on above: Performed By: #### P REGQNT #### [facility] [address] [place] [address] Dr. Kalyn Gutierrez HCG RANGE SEE BELOW Normal [facility] Comment on above: Result Comment: 5-50 0-1 WEEK 40-300 1-2 WEEKS 100-1,000 2-3 WEEKS 500-6,000 3-4 WEEKS 5,000-200,000 1-2 MONTHS 10,000-100,000 2-3 MONTHS 3,000-50,000 2ND TRIMESTER 1,000-50,000 3RD TRIMESTER Performed By: #### P REGQNT #### [facility] [address] [place] [address] Dr. Kalyn Gutierrez US PELVIS AND TRANSVAGon [...] by: NOEMI KRISHNA Date: 2021-06-22 09:10 Normal [facility] DIGITAL DIAG MAMM BILAT WITH TOMOon 06-21-2021 DIGITAL DIAG MAMM BILAT WITH SUSANA Patient Name: MICHAEL WELLER STUDY: DIGITAL DIAG MAMM BILAT WITH SUSANA; BREAST ULTRASOUND; 06/21/2021 3:05 pm; 06/21/2021 3:31 pm ACCESSION NUMBER(S): [id number]; [id number] ORDERING CLINICIAN: RAFAELA ARGUELLO INDICATION: Right breast [...] breast ultrasound was performed by a registered account consultant utilizing elastography. The irregular hypoechoic parallel mass [...] any future breast imaging appointments, please call [phone] ([phone]). Patient letter sent SAAPPR Electronically signed by: MOHAN ROMANO MD [facility] IO UA (automated w/o microsc opy)on 06-21-2021 Protein (U) [Mass/Vol] Negative [facility] Work Phone: IO UA (automated w/o microscopy) Negative [facility] Work Phone: IO UA (automated w/o microscopy) Normal (0.2-1.0 mg/dl) [facility] Work Phone: IO UA (automated w/o microscopy) 6.5 1 [facility] Work Phone: IO UA (automated w/o microscopy) 1.025 1 [facility] Work Phone: IO UA (automated w/o microscopy) Clear [facility] Work Phone: IO UA (automated w/o microscopy) Yellow [facility] Work Phone: IO Ultrasound, measurement p ost-void resid urine and/or bl cap; no imagon 06-21-2021 IO Ultrasound, measurement post-void resid urine and/or bl cap; no imag 0 mL [facility] Work Phone: Radiologyon 06-21-2021 MG Breast Diagnostic Please click on the link to view the study images Normal [facility] Work Phone: MG Breast Diagnostic Normal MP-W SPC-Westla ke [address] Work Phone: Tobacco Screening.on 022 Fall risk assessment a) No falls within the last year [facility] Work Phone: Tobacco use status CPHS b) No [facility] Work Phone: ULTRASOUND LIMITED BREASTon 06-21-2021 ULTRASOUND LIMITED BREAST Patient Name: MICHAEL WELLER STUDY: DIGITAL DIAG MAMM BILAT WITH SUSANA; BREAST ULTRASOUND; 06/21/2021 3:05 pm; 06/21/2021 3:31 pm ACCESSION NUMBER(S): [id number]; [id number] ORDERING CLINICIAN: RAFAELA ARGUELLO INDICATION: Right breast [...] breast ultrasound was performed by a registered account consultant utilizing elastography. The irregular hypoechoic parallel mass [...] any future breast imaging appointments, please call [phone] ([phone]). Patient letter sent SAAPPR Electronically signed by: MOHAN ROMANO MD Normal [facility] Ultrasound Limited [place] 06-21-2021 MG Breast Screening Normal MP-WS PC-[facility]la [address] Work Phone: IO UA (automated w/o microsc opy)on 06-04-2021 Protein (U) [Mass/Vol] Negative ED-LJND-Icqcqj ke [address] Work Phone: IO UA (automated w/o microscopy) Negative AY-MAOE-Lymddo ke [address] Work Phone: IO UA (automated w/o microscopy) Normal WR-ICRO-Menabu ke [address] Work Phone: IO UA (automated w/o microscopy) 7.0 1 PL-KWGK-Hloqlm ke [address] Work Phone: IO UA (automated w/o microscopy) 1.020 1 OB-RYXO-Iijvbb ke 200 Work Phone: IO UA (automated w/o microscopy) Clear BE-GUGP-Sdabni ke [address] Work Phone: IO UA (automated w/o microscopy) Yellow TG-KQHA-Xdcapy ke 200 Work Phone: Tobacco Screening.on 022 Adult depression screening assessment No MP-WSPC-Luiz tla ke [address] Work Phone: Fall risk assessment a) No falls within the last year KS-TUSX-Odwims ke [address] Work Phone: Last menstrual period start date 14May2021 PH-NVQX-Ubfxty ke 200 Work Phone: Tobacco use status CPHS b) No RY-IGZR-Glbwov ke 200 Work Phone: PAP ACOG PANEL 2: 30 to 65on 03-28-2021 . . Normal [facility] Comment on above: Result Comment: Perf ormed at: WB Performed By: #### [id number] #### [facility] [address] [place] [address] [address] Kalyn Gutierrez Age Gdln ACOG Testing 30-65 [facility] Comment on above: Performed By: #### [id number] #### [facility] [address] [place] [address] [address] Kalyn Gutierrez DIAGNOSIS: Comment Normal [facility] Comment on above: Result Comment: NEGA TIVE FOR INTRAEPITHELIAL LESION OR MALIGNANCY. Performed at: WB Performed By: #### [id number] #### [facility] [address] [place] [address] Dr. Kalyn Gutierrez HPV Aptima Negative Normal Negative [facility] Comment on above: Result Comment: This nucleic acid amplification test detects fourteen high-risk HPV types (16,18,31,33,35,39,45,51,52,56,58,59,66,68) without differentiation. Performed at: =G Performed By: #### [id number] #### [facility] [address] [place] [address] Dr. Kalyn Gutierrez Methodology: Comment [facility] Comment on above: Result Comment: This liquid based ThinPrep(R) pap test was screened with the use of an image guided system. Performed at: WB Performed By: #### [id number] #### [facility] [address] [place] [address] Dr. Kalyn Gutierrez Note: Comment [facility] Comment on above: Result Comment: The Pap smear is a screening test designed to aid in the detection of premalignant and malignant conditions of the uterine cervix. It is not a diagnostic procedure and should not be used as the sole means of detecting cervical cancer. Both false-positive and false-negative reports do occur. . Performed at: WB Performed By: #### [id number] #### [facility] [address] [place] [address] [address] Kalyn Gutierrez Performed by: Comment Normal [facility] Comment on above: Result Comment: Tawnya Del Rio, Brokerage Office Manager (ASCP) Performed at: WB Performed By: #### [id number] #### [facility] [address] [place] [address] [address] Kalyn Gutierrez Specimen adequacy: Comment Normal [facility] Comment on above: Result Comment: Sati sfactory for evaluation. Endocervical and/or squamous metaplastic cells (endocervical component) are present. Performed at: WB Performed By: #### [id number] #### [facility] [address] [place], [place] [address] Dr. Kalyn Gutierrez Vital Signs Date Time Vital Sign Value Performing Clinician Facility 01-05-2024 11:51-0400 Body mass index (BMI) [Ratio] 30.45 kg/m2 Maryann Davison Work Phone: [phone] [place] [address] 01-05-2024 11:51-0400 Body temperature 98.2 [degF] Maryann Davison Work Phone: 6(360)[phone] [place] [address] 01-05-2024 11:51-0400 Body weight 83.01 kg Maryann Davison Work Phone: 7(672)[phone] [place] [address] 01-05-2024 11:51-0400 Diastolic blood pressure 76 mm[Hg] Maryann Davison Work Phone: 3([phone])[phone] [place] [address] 01-05-2024 11:51-0400 Heart rate 74 /min Maryann Elvis Work Phone: [phone] [place] [address] 01-05-2024 11:51-0400 Respiratory rate 18 /min Maryanncipriano Davisno Work Phone: [phone])[phone] [place] [address] 01-05-2024 11:51-0400 SaO2% (BldA) [Mass fraction] 98 % Maryann Davison Work Phone: 0([phone] [place] [address] 01-05-2024 11:51-0400 Systolic blood pressure 119 mm[Hg] Maryann LemusSachin Work Phone: [facility] 09-05-2023 13:24-0400 Body height 165.1 cm [facility] 09-05-2023 13:24-0400 Body mass index (BMI) [Ratio] 29.2 kg/m2 [facility] 09-05-2023 13:24-0400 Body temperature 97.9 [degF] [facility] 09-05-2023 13:24-0400 Body weight 79.83 kg [facility] 09-05-2023 13:24-0400 Diastolic blood pressure 85 mm[Hg] [facility] 09-05-2023 13:24-0400 Heart rate 106 /min [facility] 09-05-2023 13:24-0400 Respiratory rate 18 /min [facility] 09-05-2023 13:24-0400 SaO2% (BldA) [Mass fraction] 96 % [facility] 09-05-2023 13:24-0400 Systolic blood pressure 120 mm[Hg] [facility] 07-22-2023 14:37-0400 Body height 165.1 cm Jhonny [...] 118 mm[Hg] Jhonny Issa MD Work Phone: [facility] 04-27-2023 15:40-0500 Body height 165.1 cm Jhonny Issa MD Work Phone: [facility] 04-27-2023 15:40-0500 Body mass index (BMI) [Ratio] 34.15 kg/m2 Jhonny Isas MD Work Phone: [facility] 04-27-2023 15:40-0500 Body weight 93.08 kg Jhonny Issa MD Work Phone: [facility] 04-27-2023 15:40-0500 Diastolic blood pressure 60 mm[Hg] Jhonny Issa MD Work Phone: [facility] 04-27-2023 15:40-0500 Heart rate 123 /min Jhonny Issa MD Work Phone: [facility] 04-27-2023 15:40-0500 Respiratory rate 14 /min Jhonny Issa MD Work Phone: [facility] 04-27-2023 15:40-0500 Systolic blood pressure 104 mm[Hg] Jhonny Issa MD Work Phone: [facility] 02-19-2023 10:39-0500 Body height 165.1 cm Jhonny Issa MD Work Phone: [facility] 02-19-2023 10:39-0500 Body mass index [...] Body height 165.1 cm Bolivar Sherman Other [employer] Other 07-02-2022 13:20-0400 Body mass index (BMI) [Ratio] 33.28 kg/m2 Bolivar Sherman Other [employer] Other 07-02-2022 13:20-0400 Body weight 90.72 kg Bolivar Sherman Other [employer] Other 07-02-2022 13:20-0400 Diastolic blood pressure 78 mm[Hg] [address] Other [employer] Other 07-02-2022 13:20-0400 Respiratory rate 18 /min Bolivar Sherman Other [employer] Other 07-02-2022 13:20-0400 SaO2% (BldA) [Mass fraction] 99 % [address] Other [employer] Other 07-02-2022 13:20-0400 Systolic blood pressure 117 mm[Hg] [address] Other [employer] Other 10-14-2021 15:07-0400 Diastolic blood pressure 98 mm[Hg] Rafaela Arguello [facility] Phone: [facility] Work Phone: 10-14-2021 15:07-0400 Heart rate 103 /min Rafaela Arguello Work Phone: [facility] Work Phone: 10-14-2021 15:07-0400 Systolic blood pressure 132 mm[Hg] Rafaela Arguello Work Phone: [facility] Work Phone: 06-21-2021 08:13-0400 Body height 165.1 cm Rafaela Arguello Work Phone: [facility] Work Phone: 06-21-2021 08:13-0400 Body mass index (BMI) [Ratio] 33.28 kg/m2 Rafaela Arguello Work Phone: [facility] Work Phone: 06-21-2021 08:13-0400 Body surface area Derived from formula 1.98 m2 Rafaela Arguello Work Phone: [facility] Work Phone: 06-21-2021 08:13-0400 Body temperature 97.2 [degF] Rafaela Arguello Work Phone: [facility] Work Phone: 06-21-2021 08:13-0400 Body weight 90.72 kg Rafaela Arguello Work Phone: [facility] Work Phone: 06-21-2021 08:13-0400 Diastolic blood pressure 82 mm[Hg] Rafaela Arguello Work Phone: [facility] Work Phone: 06-21-2021 08:13-0400 Heart rate 89 /min Rafaela Arguello Work Phone: [facility] Work Phone: 06-21-2021 08:13-0400 Systolic blood pressure 115 mm[Hg] Rafaela Arguello Work Phone: [facility] Work Phone: 06-04-2021 13:05-0400 Body height 167.64 cm Rafaela Arguello Work Phone: WT-MHJL-Xulwkxuq 200 Work Phone: 06-04-2021 13:05-0400 Body mass index (BMI) [Ratio] 32.77 kg/m2 Rafaela Arguello Work Phone: FZ-FYRI-Axduxjyd 200 Work Phone: 06-04-2021 13:05-0400 Body surface area Derived from formula 2.01 m2 Rafaela Arguello Work Phone: VY-VTZP-Kbpvdshc 200 Work Phone: 06-04-2021 13:05-0400 Body temperature 98.2 [degF] Rafaela Arguello Work Phone: YU-YLMD-Tysccjks 200 Work Phone: 06-04-2021 13:05-0400 Body weight 92.08 kg Rafaelalaron Arguello Work Phone: KK-PMQO-Devhtrpw 200 Work Phone: 06-04-2021 13:05-0400 Diastolic blood pressure 76 mm[Hg] Rafaela Arguello Work Phone: BF-CXZX-Qizczdqp 200 Work Phone: 06-04-2021 13:05-0400 Heart rate 80 /min Rafaela Arguello Work Phone: KV-FTJO-Jxevldou 200 Work Phone: 06-04-2021 13:05-0400 Respiratory rate 16 /min Rafaela Arguello Work Phone: KZ-UYUW-Aorgqkan 200 Work Phone: 06-04-2021 13:05-0400 Systolic blood pressure 122 mm[Hg] Rafaela Arguello Work Phone: SL-GPKH-Blyhtwnc 200 Work Phone: 12-07-2019 11:03-0400 BMI (Body Mass Index) 31.95 kg/m2 Rafaelalaron Arguello RC-VVYD-Zuuiahps 200 Work Phone: 12-07-2019 11:03-0400 Body Temperature 98.3 [degF] Rafaela Arguello MP-WSPC-[place] 200 Work Phone: Comment on above: Method: Temporal 12-07-2019 11:03-0400 Body weight 87.77 kg Rafaela Arguello MP-WSPC-[place] 200 Work Phone: 12-07-2019 11:03-0400 BP Diastolic 74 mm[Hg] Rafaela Arguello MP-[facility] 200 Work Phone: 12-07-2019 11:03-0400 BP Systolic [...] 18:12-0400 BP Diastolic 76 mm[Hg] Rafaela Arguello JB-BLVR-Gcqn 253 [facility] Work Phone: 05-16-2019 18:12-0400 BP Systolic 122 mm[Hg] Rafaela Arguello HH-IYDB-Twkz [address] [facility] Work Phone: 05-16-2019 18:12-0400 BSA (Body Surface Area) 1.98 m2 Rafaela Arguello MP-[facility] [facility] Work Phone: 05-16-2019 18:12-0400 Pulse (Heart Rate) 88 /min Rafaela Arguello KP-CZNZ-Ozgg [facility] Work Phone: 05-16-2019 18:12-0400 Pulse Oximetry 98 % Rafaela rAguello MP-[facility] [facility] Work Phone: 05-16-2019 18:12-0400 Respiratory Rate 18 /min Rafaela Arguello MP-[facility] 25 [facility] Work Phone: Encounters Encounter Date Encounter Type Care Provider Facility Start: 02-16-2024 End: 02-16-2024 Office outpatient visit 5 minutes [facility] Daya Nurse [facility] Comment on above: GA: 7w3d Start: 02-16-2024 End: 02-16-2024 ambulatory MATT DAYA Not Available Start: 01-28-2024 End: 01-28-2024 Clinisync Result Encounter [...] minutes Maryann Davison Work Phone: [facility] Comment on above: Acute lower UTI (Adrianna eulogio Dx); Urine frequency Start: 10-20-2023 End: 10-26-2023 Clinisync Result Encounter Matt Daya DO Work Phone: [facility] External Department Unsolicited Start: 10-20-2023 End: 10-26-2023 Clinisync Result Encounter Matt Daya DO Work Phone: [facility] External Department Unsolicited Start: 10-20-2023 End: 10-20-2023 ambulatory MATT DAYA Not Available Start: 09-05-2023 End: 09-05-2023 Departed Referred HAIR SPECIALIST Swetha Andersen Work Phone: [facility] 250 Start: 09-05-2023 End: 09-05-2023 ambulatory PHYSICIAN [facility] Work Phone: Start: 09-05-2023 End: 09-05-2023 Patient encounter procedure [facility] Physician [facility] Amandeep Work Phone: Start: 09-01-2023 End: 09-01-2023 ambulatory ROULA BLEDSOE Facility:[facility] Start: 09-01-2023 End: 09-01-2023 Patient encounter procedure Roula Bledsoe HAIR SPECIALIST.STONE CARRIAGE OPERATOR Work Phone: [facility] Comment on above: Dermatofibroma (Prim ottoniel Dx); Lentigines; Multiple benign nevi; Valles angioma; Hx of malignant melanoma Start: 07-22-2023 End: 07-22-2023 ambulatory [facility] Start: 07-22-2023 End: 07-22-2023 Office outpatient visit 25 minutes Jhonny Issa MD Work Phone: [facility] Comment on above: Encephalopathy (Prim ottoniel Dx); Attention deficit hyperactivity disorder (ADHD), predominantly inattentive type; Insomnia due to medical condition; Anxiety Start: 07-02-2023 End: 07-02-2023 ambulatory MATT STAPLETON Not Available Start: 04-27-2023 End: 04-27-2023 ambulatory [facility] Start: 04-27-2023 End: 04-27-2023 Office outpatient visit 25 minutes Jhonny Issa MD Work Phone: [facility] Comment on above: Encephalopathy (Prim ottoniel Dx); Attention deficit hyperactivity disorder (ADHD), predominantly inattentive type; Insomnia due to medical condition; Anxiety Start: 03-04-2023 End: 03-04-2023 ambulatory PRENTICE Cipriano [facility] Ambulatory Start: 03-04-2023 End: 03-04-2023 Office outpatient visit 15 minutes Karolina Man Work Phone: [facility] Comment on above: Anxiety Start: 02-19-2023 End: 02-19-2023 ambulatory [facility] Start: 02-19-2023 End: 02-19-2023 Office outpatient new 60 minutes Jhonny Issa MD Work Phone: [facility] Comment on above: Encephalopathy (Prim ottoniel Dx); Anxiety; Attention deficit hyperactivity disorder (ADHD), predominantly inattentive type Start: 12-19-2022 End: 12-19-2022 Subsequent hospital visit by physician Martha Breast Ultrasound 1 [facility] Comment on above: Lump in female breas t Start: 12-19-2022 End: 12-19-2022 ambulatory KAROLINA Cota [facility] Start: 12-19-2022 End: 12-19-2022 ambulatory KAROLINA Cota [facility] Start: 12-19-2022 End: 12-19-2022 Subsequent hospital visit by physician Martha Mammo 1 [facility] Comment on above: Abnormal mammogram Start: 12-03-2022 End: 12-03-2022 ambulatory PRENTICE Cipriano [facility] Ambulatory Start: 10-16-[address] Work Phone: [facility] Work Phone: Start: 07-02-2022 Office outpatient vi sit 25 minutes Bolivar Sherman [facility] [address] Start: 07-02-2022 End: 07-02-2022 ambulatory DO Danielle Infante Work Phone: [facility] Work Phone: Start: 07-02-2022 End: 07-02-2022 Patient encounter procedure DO Danielle Infnate Work Phone: [facility] 250 Start: 04-14-2022 Rx Renewal Rafaela [address]abria [address] Work Phone: OJ-PUGC-Pijwlfwt 200 Work Phone: Start: 03-17-2022 Rx Renewal Rafaela Sanabria rd Work Phone: OB-JRHZ-Gpkrjbbu 200 Work Phone: Start: 02-10-2022 ambulatory Ms. Rafaela hyatt Hema Facility:[id number] Start: 02-10-2022 Office outpatient vi sit 25 minutes Rafaela Arguello Work Phone: TO-PHJB-Mopcyzze 200 Work Phone: Start: 10-30-2021 Rx Renewal Rafaela Sanabria rd Work Phone: YM-YBKI-Fvcqbmmt 200 Work Phone: Start: 10-17-2021 End: 10-17-2021 Patient encounter procedure Roula Ayesha TILLMAN.STONE CARRIAGE OPERATOR Work Phone: [facility] Comment on above: Lentigines (Primary Dx); Multiple benign nevi; Valles angioma; Exposure to tanning bed, sequela; Hx of malignant melanoma; Dermatofibroma Start: 10-14-2021 Office consultation new/estab patient 60 min Rafaela Arguello Work Phone: [facility] Work Phone: Start: 10-14-2021 Patient encounter procedure Rafaela Arguello Work Phone: [facility] Work Phone: Start: 10-08-2021 Office outpatient vi sit 25 minutes Rafaela Shira Hema Work Phone: KZ-UVJR-Qolrknvo 200 Work Phone: Start: 10-08-2021 ambulatory Ms. Rafaela Arguello Facility:[id number] Start: 10-07-2021 End: 10-07-2021 Departed Referred DO Danielle Infante Work Phone: [facility] Start: 10-02-2021 Rx Renewal Rafaela Sanabria rd Work Phone: GY-FKIY-Utixzmon 200 Work Phone: Start: 09-06-2021 Patient encounter procedure Rafaela Shira Hema Work Phone: [facility] Work Phone: Start: 09-06-2021 ambulatory Ms. Rafaela Arguello Facility:[id number] Start: 07-12-2021 End: 07-12-[address] SHASHANK BARAJAS Facility:H1 Start: 07-11-2021 Encounter for preprocedural cardiovascular examination DR MATT STAPLETON [facility] Start: 07-10-2021 End: 07-11-[address] MATT STAPLETON Facility:H1 Start: 07-10-2021 End: 07-11-2021 Encounter for preprocedural cardiovascular examination DR MATT STAPLETON Facility:H1 Start: 07-09-[address] MATT STAPLETON Facility :H1 Start: 07-01-[address] Work Phone: ZF-WATJ-Ankobkeg 200 Work Phone: Start: 06-28-2021 Chart Update Rafaela Sanabria rd Work Phone: HS-JTYL-Gofyhuvv 200 Work Phone: Start: 06-27-[address] Work Phone: WF-INEA-Ytmsdgim 200 Work Phone: Start: 06-21-2021 End: 06-22-[address] MATT STAPLETON Facility:H1 Start: 06-04-2021 Office outpatient vi sit 25 minutes Rafaela E Hema Work Phone: SJ-QBYL-Lmajkogy 200 Work Phone: Start: 06-04-2021 Patient encounter procedure Rafaela Arguello Work Phone: AM-DQQA-Kqcaxpih 200 Work Phone: Start: 06-04-2021 ambulatory Ms. Rafaela Arguello Facility:[id number] Start: 03-25-2021 End: 03-25-[address] MATT STAPLETON Facility:H1 Start: 12-07-2019 Patient encounter procedure Rafaela Arguello DP-CLRL-Ynmachhg 200 Work Phone: Start: 05-16-2019 Patient encounter procedure Rafaela Arguello UA-GFOY-Zcle [facility] Work Phone: Start: 09-27-2018 Patient encounter procedure Rafaela Arguello BQ-NFET-Qsce [facility] Work Phone: Start: 09-14-2018 Patient encounter procedure Rafaela Arguello DC-TIOJ-Argl [facility] Work Phone: Start: 07-17-2017 Patient encounter procedure Rafaela Arguello AS-XDYY-Nmhu [facility] Work Phone: Procedures Date Procedure Procedure Detail Performing Clinician Start: 02-16-2024 Urnls dip stick/tabl et rgnt non-auto w/o micrscp Matt Daya DO Work Phone: Start: 01-28-2024 [facility] PREG QUANT HCG Core y Daya DO Work Phone: Start: 01-26-2024 [facility] PREG QUANT HCG Core y Daya DO Work Phone: Start: 01-05-2024 End: 01-05-2024 Urine test visual color cmprsn meths Maryann Davison Work Phone: Start: 10-20-2023 IGP,APTIMA HPV,AGE GDLN Matt Gambinoo DO Work Phone: Start: 10-20-2023 Microscopic observat ion [Identifier] in Cervix by Cyto stain Maryannphuong Davison Work Phone: Start: 04-27-2023 Follow-up visit [...] Rafaela Arguello Start: 12-07-2019 Lipid panel Rafaela chavira Start: 12-07-2019 TSH WITH REFLEX TO F REE T4 IF ABNORMAL Rafaela Arguello Adenoidectomy withou t tonsillectomy Rafaela Arguello History of [place] Surgery Rafaela Arguello Hyperlipidemia screening Tho mas [place] Other Procedure on back Rafaela yehfan Work Phone: Removal of suture [place] For [facility] Other Tonsillectomy Rafaela Arguello Total replacement of hip Keaton laron Arguello Plan of Treatment Date Care Activity Detail Author Start: 10-26-2037 Zoster Vaccines (1 o f 2) Zoster Vaccines (1 of 2) [facility] Start: 10-19-2028 Screening for malignant neoplasm of cervix [facility] Start: 10-18-2027 Screening for malignant neoplasm of cervix [facility] Start: 10-19-2026 Screening for malignant neoplasm of cervix [facility] Start: 10-17-2025 Screening for malignant neoplasm of cervix [facility] Start: 04-23-2025 Lipid panel Lipid Panel [facility] Start: 10-26-2024 End: 10-26-2024 Patient encounter procedure 10/26/2024 4:00 PM EDT [facility] [address] [facility] [place] [phone] aMtt [place], [address] [place] [address] [facility] Start: 03-25-2024 Screening for malignant neoplasm of cervix [facility] Start: 03-16-2024 End: 03-16-2024 Patient encounter procedure 03/16/2024 3:30 PM EST Routine [facility] [address] [place] [phone] Matt [place], [address], [place] [id number] [facility] Start: 02-16-2024 End: 02-15-2025 ABO/Rh ABO/Rh Lab Routine Missed menses , unspecified gestational age Expected: 02/16/2024 (Approximate), Expires: 02/15/2025 [facility] Comment on above: Expected: 02/16/2024 (Approximate), Expires: 02/15/2025 Start: 02-16-2024 End: 02-15-2025 Blood type and Indirect antibody screen panel - Blood Type and screen Lab Routine Missed menses , unspecified gestational age Expected: 02/16/2024 (Approximate), Expires: 02/15/2025 [facility] Work Phone: Comment on above: Expected: 02/16/2024 (Approximate), Expires: 02/15/2025 Start: 02-16-2024 End: 02-15-2025 Drugs of abuse panel - Urine by Screen method Rapid drug screen, urine Lab Routine , unspecified gestational age Encounter for supervision of normal first in first trimester Expected: 02/16/2024 (Approximate), Expires: 02/15/2025 [facility] Comment on above: Expected: 02/16/2024 (Approximate), Expires: 02/15/2025 Start: 02-16-2024 End: 02-16-2024 ambulatory 02/16/2024 8:30 AM EST Initial [facility] [address] [facility] [place] [address] [facility] Start: 02-16-2024 End: 02-16-2024 Professional / ancillary services management 02/16/2024 8:00 AM EST Ancillary Procedure [facility] [address] [facility] [address] [place] [address] [facility] Start: 11-08-2023 COVID-19 Vaccine ( season) COVID-19 Vaccine ( season) [facility] Start: 11-08-2023 Influenza vaccination [facility] Start: 10-14-2023 End: 10-14-2023 Patient encounter procedure 10/14/2023 3:15 PM EDT Office Visit [facility] [address] [place] [phone] Jhonny Issa MD [address] [facility], [facility] [address] [place] [address] [facility] Start: 09-05-2023 Bacteria identified in Urine by Culture [facility] Start: 07-22-2023 End: 07-22-2023 Patient encounter procedure 07/22/2023 3:15 PM EDT Office Visit [facility] [address] [place] [phone] Jhonny Issa MD [address] [facility], [facility] [address] [place], [place] [phone] [facility] Start: 04-27-2023 End: 04-27-2023 Patient encounter procedure 04/27/2023 3:15 PM EST Office Visit [facility] [address] [phone] Jhonny Issa MD [address] [facility], [facility] [address] [place], [place] [phone] [facility] Start: 03-09-2023 Behavioral Health Screening Behavioral Health Screening [facility] Start: 03-04-2023 End: 03-04-2023 Patient encounter procedure 03/04/2023 8:40 AM EST Office Visit [facility] [address] [phone] [place] [address] [address] [facility] Start: 02-19-2023 End: 02-20-2024 Drugs of abuse screen W Reflex confirm panel - Urine [facility] Service Area Work Phone: Comment on above: Expected: 02/19/2023 (Approximate), Expires: 02/20/2024 Start: 02-19-2023 End: 02-19-2023 Patient encounter procedure 02/19/2023 10:15 AM EST Office Visit [facility] [address] [facility] [address] [place] [address] Jhonny Issa MD [address] [facility], [place] [address] [place] [address] [facility] Start: 11-07-2022 COVID-19 Vaccine ( season) COVID-19 Vaccine () [facility] Start: 11-07-2022 Influenza vaccination Influenza Vacc ine (#1) [facility] Start: 01-21-2022 FUV, Provider: Luz Aguilar, Status: Pen, Time: 3:40 PM FUV, Provider: Luz Aguilar, Status: Pen, Time: 3:40 PM QM-[id number]-Biwpqwlt 200 Work Phone: Start: 01-20-2022 [id number], Provider: Bisi Prabhakar, Status: Pen, Time: 5:00 PM [id number], Provider: Bisi Prabhakar, Status: Pen, Time: 5:00 PM [facility] Work Phone: Start: 01-13-2022 [id number], Provider: Bisi Prabhakar, Status: Pen, Time: 5:00 PM [id number], Provider: Bisi Prabhakar, Status: Pen, Time: 5:00 PM [facility] Work Phone: Start: 01-08-2022 [id number], Provider: Bisi Prabhakar, Status: Pen, Time: 4:00 PM [id number], Provider: Bisi Prabhakar, Status: Pen, Time: 4:00 PM [facility] Work Phone: Start: 01-01-2022 [id number], Provider: Bisi Prabhakar, Status: Pen, Time: 4:00 PM [id number], Provider: Bisi Prabhakar, Status: Pen, Time: 4:00 PM [facility] Work Phone: Start: 12-25-2021 [id number], Provider: Bisi Prabhakar, Status: Pen, Time: 4:00 PM [id number], Provider: Bisi Prabhakar, Status: Pen, Time: 4:00 PM [facility] Work Phone: Start: 12-17-2021 [id number], Provider: Bisi Prabhakar, Status: Pen, Time: 5:00 PM [id number], Provider: Bisi Prabhakar, Status: Pen, Time: 5:00 PM [facility] Work Phone: Start: 11-07-2021 Influenza vaccination INFLUENZA (#1) [facility] Start: 10-16-2021 NPV, Provider: Nafisa Bermudez, Status: Pen, Time: 1:00 PM NPV, Provider: Nafisa Bermudez, Status: Pen, Time: 1:00 PM AO-QIEU-Ffdpyyii 200 Work Phone: Start: 10-08-2021 VIRFUVHOME, Provider : Rafaela Arguello, Status: Pen, Time: 11:40 AM VIRFUVHOME, Provider: Rafaela Arguello, Status: Pen, Time: 11:40 AM GZ-APEV-Sfpkthjk 200 Work Phone: Start: 09-30-2021 FUV, Provider: Luz Aguilar, Status: Pen, Time: 1:40 PM FUV, Provider: Luz Aguilar, Status: Pen, Time: 1:40 PM [facility] Work Phone: Start: 09-18-2021 [id number], Provider: Bisi Prabhakar, Status: Pen, Time: 10:00 AM [id number], Provider: Bisi Prabhakar, Status: Pen, Time: 10:00 AM [facility] Work Phone: Start: 09-06-2021 [id number], Provider: Bisi Prabhakar, Status: Pen, Time: 8:00 AM [id number], Provider: Bisi Prabhakar, Status: Pen, Time: 8:00 AM [facility] Work Phone: Start: 08-02-2021 FUV, Provider: Luz Aguilar, Status: Pen, Time: 8:20 AM FUV, Provider: Luz Aguilar, Status: Pen, Time: 8:20 AM [facility] Work Phone: Start: 06-21-2021 NPV, Provider: Luz Aguilar, Status: Pen, Time: 8:00 AM NPV, Provider: Luz Aguilar, Status: Pen, Time: 8:00 AM [facility] Work Phone: Start: 03-27-2021 COVID-19 VACCINE (3 - Booster for Pfizer series) COVID-19 VACCINE (3 - Booster for Pfizer series) [facility] Start: 12-20-2020 COVID-19 Vaccine (3 - Pfizer series) COVID-19 Vaccine (3 - Pfizer series) [facility] Start: 01-09-2020 FFD mammogram Breast screening Mamm - Ultrasound of Breast [place] [address] Work Phone: Start: 10-26-2017 HPV TESTING HPV TESTING [facility] Start: 10-26-2009 DTaP/Tdap/Td Vaccine s (1 - Tdap) DTaP/Tdap/Td Vaccines (1 - Tdap) [facility] Start: 10-26-2008 PAP TESTING PAP TESTING [facility] Start: 10-26-2008 Screening for malignant neoplasm of cervix [facility] Start: 10-26-2006 Hepatitis B Vaccine (1 of 3 - 19+ 3-dose series) Hepatitis B Vaccine (1 of 3 - 19+ 3-dose series) [facility] Start: 10-26-2006 Hepatitis B Vaccines (1 of 3 - 19+ 3-dose series) Hepatitis B Vaccines (1 of 3 - 19+ 3-dose series) [facility] Start: 10-26-2006 Urine microalbumin profile [facility] Start: 10-26-2005 HEPATITIS C SCREENING HEPATITIS C [facility] Start: 10-26-2005 Hepatitis C screening Hepatitis C [facility] Start: 10-26-2005 HIV SCREENING HIV SCREENING [facility] Start: 10-26-2005 [facility] Start: 10-26-2000 Varicella vaccination Varicell a Vaccines (1 of 2 - 13+ 2-dose series) [facility] Start: 1999 Adult depression screening assessment DEPRESSION SCREENING [facility] Start: 10-26-1988 MMR Vaccines (1 of 1 - Standard series) MMR Vaccines (1 of 1 - Standard series) [facility] Start: 10-26-1988 Varicella vaccination Varicell a Vaccines (1 of 2 - 2-dose childhood series) [facility] Start: 1987 HEPATITIS B (1 of 3 - 3-dose series) HEPATITIS B (1 of 3 - 3-dose series) [facility] Start: 1987 Hepatitis B Vaccines (1 of 3 - 3-dose series) Hepatitis B Vaccines (1 of 3 - 3-dose series) [facility] Start: 1987 HIV screening HIV Screening [facility] Start: 1987 Yearly Adult Physical Yearly Adult P hysical [facility] Bacteria identified in Urine by Culture Urine culture Microbiology Routine Missed menses Ordered: 02/16/2024 [facility] Comment on above: Ordered: 02/16/2024 CBC W Auto Differential panel - Blood CBC and differential Lab Routine Missed menses , unspecified gestational age Ordered: 02/16/2024 [facility] Comment on above: Ordered: 02/16/2024 Hemoglobin A1c/Hemoglobin.total in Blood Hemoglobin A1c Lab Routine Missed menses , unspecified gestational age Ordered: 02/16/2024 [facility] Comment on above: Ordered: 02/16/2024 Hepatitis B virus surface Ag [Presence] in Serum or Plasma by Immunoassay Hepatitis B surface antigen Lab Routine Missed menses , unspecified gestational age Ordered: 02/16/2024 [facility] Comment on above: Ordered: 02/16/2024 Hepatitis C virus Ab [Presence] in Serum or Plasma by Immunoassay Hepatitis C antibody Lab Routine Missed menses , unspecified gestational age Ordered: 02/16/2024 [facility] Comment on above: Ordered: 02/16/2024 HIV-1/HIV-2 antigen/antibody combination immunoassay HIV-1 and HIV-2 antibodies Lab Routine Missed menses , unspecified gestational age Ordered: 02/16/2024 [facility] Comment on above: Ordered: 02/16/2024 Reagin Ab [Presence] in Serum by RPR RPR Lab Routine Missed menses , unspecified gestational age Ordered: 02/16/2024 [facility] Comment on above: Ordered: 02/16/2024 Rubella antibody, IgG Rubella an tibody, IgG Lab Routine Missed menses , unspecified gestational age Ordered: 02/16/2024 [facility] Comment on above: Ordered: 02/16/2024 [id number]-Dcrhjry e 200 Work Phone: NEGATED: Highlighted row has been ruled out! Planned Goals not documented MT-EVYT-Ajcuvckn 200 Work Phone: Immunizations Immunization Date Immunization Notes Care Provider Elina flores 10-25-2020 Pfizer-BioNTech COVI D-19 Vacc 30 MCG/0.3ML Intramuscular Suspension Rafaela Arguello Work Phone: HM-PGYT-Sihrdmcu 200 Work Phone: 10-04-2020 Pfizer-BioNTech COVI D-19 Vacc 30 MCG/0.3ML Intramuscular Suspension Rafaela Arguello Work Phone: [id number]-RFCB-Ecdtbxpl 200 Work Phone: Payers Date Payer Category Payer Self-pay [id number] [phone] [id number] 2022 Managed Care ([facility]) [facility] [id number]. [id number] 2022 Private Health Insurance [employer] [id number]. [id number] 2020 Unknown 1987 Unknown [id number] 2.16840.1.332422.3.579.2. 593 1987 Unknown [id number] 2.16840.1.314358.3.579.2. 593 1987 Unknown [id number] 2.16840.1.436735.3.579.2. 593 1987 Unknown [id number] 2.16840.1.429813.3.579.2. 593 1987 Unknown [id number] 2.16840.1.794432.3.579.2. 593 1987 Unknown [id number] 2.16.840.1.378313.3.579.2. 356 1987 Unknown [id number] 2.16840.1.217871.3.579.2. 356 1987 Unknown [id number] 2.16.840.1.453915.3.579.2. 356 1987 Unknown [id number] 2.16840.1.434657.3.579.2. 356 1987 Unknown [id number] 2.16.840.1.239248.3.579.2. 356 1987 Unknown [id number] 2.16.840.1.496525.3.579.2. 1244 1987 Unknown [id number] 2.16.840.1.554538.3.579.2. 1244 1987 Unknown [id number] 2.16.840.1.905337.3.579.2. 1244 1987 Unknown [id number] 2.16.840.1.168300.3.579.2. 1244 1987 Unknown [id number] 2.16.840.1.844814.3.579.2. 1244 1987 Unknown [id number] 2.16.840.1.912167.3.579.2. 1243 1987 Unknown [id number] 2.16.840.1.632541.3.579.2. 1243 1987 Unknown [id number] 2.16.840.1.335749.3.579.2. 1243 1987 Unknown [id number] 2.16.840.1.376174.3.579.2. 9 1987 Unknown [id number] 2.16.840.1.349743.3.579.2. 9 1987 Unknown [id number] 2.16.840.1.945629.3.579.2. 1259 1959 Unknown [id number] Unknown [id number] 2.16.840.1.576399.3.579.2. 531 Social History Date Type Detail Facility Assertion Tobacco smoking consumption unknown (finding) [facility] [address] Work Phone: Start: 12-03-2022 End: 07-22-2023 Non-smoker Non-smoker [facility] Start: 02-19-2023 End: 09-05-2023 Tobacco smoking status NHIS Never smoked tobacco [facility] Start: 10-17-2021 End: 09-01-2023 Alcohol intake Current drinker of alcohol (finding) [facility] Start: 05-14-2010 History SDOH Alcohol Comment occasional [facility] Start: 1985 Sex Assigned At Not on file [facility] Start: 1985 Sex Assigned At Female F [facility] Start: 12-03-2022 End: 07-22-2023 Sex Assigned At [facility] Tobacco smoking stat us NHIS Tobacco smoking consumption unknown [facility] Start: 12-09-2022 End: 01-05-2024 Exposure to SARS-CoV-2 (event) Not sure [facility] Start: 02-19-2023 Tobacco use and exposure Smokeless tobacco non-user [facility] Work Phone: Start: 02-19-2023 End: 01-05-2024 Alcohol intake Defer [facility] Work Phone: National Score (1-100), lower number is lower risk 52 [facility] Start: 01-09-2024 [facility] Functional Status Date Assessment Result Facility NEGATED: Highlighted row Functional performance Functional status health issues are not documented Disease [id number] [address] Work Phone: Mental Status Date Assessment Result Facility NEGATED: Highlighted row Cognitive function [Interpretation] Cognitive status health issues are not documented Disease [id number] [address] Work Phone: Clinical Notes 03-04-2012 to 02-16-2024 Cathy Dick LPN - 02/16/2024 8:30 AM Renuka Davison - 01/05/2024 11:45 AM EDTPatient Roula Kaplan APRN.CNP - 09/01/2023 11:20 AM EDT Note Date & Type Note Facility 02-16-2024 History of Present illness Narrative Reason for Appointment: Patient ID: Michael Weller is a 38 y.o. female who presents for Amenorrhea Patient presents today for a Nurse OB Intake appointment. Patient is 7w3d with a Estimated Date of Delivery: 10/01/24 OB History Para Term AB Living 6 3 2 3 SAB IAB Ectopic Multiple Live Births 2 # Outcome Date GA Lbr Abdiaziz/2nd Weight Sex Type Anes PTL Lv 6 Current 5 SAB 4 SAB 3 Para 2 Para 1 Para Current Medications: has a current medication list which includes the following prescription(s): ondansetron odt and progesterone. Medical History: Active Ambulatory Problems Diagnosis Date Noted Chronic nasopharyngitis 08/28/2022 Reflux esophagitis 08/28/2022 Submandibular gland infection 08/28/2022 Resolved Ambulatory Problems Diagnosis Date Noted No Resolved Ambulatory Problems Past Medical History: Diagnosis Date Cervicitis Coxsackieviruses Cystitis Dyspareunia in female Lump of breast Pap smear abnormality of cervix with ASCUS favoring dysplasia Vaginal bleeding No family history on file. Social History Tobacco Use Smoking status: Not on file Smokeless tobacco: Not on file Substance Use Topics Alcohol use: Not on file Drug use: Not on file Past Surgical History: Procedure Laterality Date CHOLECYSTECTOMY 2009 CYST REMOVAL [address] IMAGING MELANOMA TONSILLECTOMY 1992 Allergies Allergen Reactions Cat Hair Extract Itching Latex Rash Loracarbef Unknown Other Reaction(s): Unknown Nsaids Other, Unknown and Itching Pt states adverse reaction of ulcers occurs advised not to take Other Reaction(s): Other Vitals: Estimated body mass index is 30.45 kg/m as calculated from the following: Height as of 05/30/21: 5' 5 . Weight as of 10/20/23: 183 lb. BP: Patient's last menstrual period was 12/18/2023. Assessment/Plan Diagnoses and all orders for this visit: Missed menses - Type and screen; Future - ABO/Rh; Future - CBC and differential - Hemoglobin A1c - RPR - Rubella antibody, IgG - Hepatitis B surface antigen - Hepatitis C antibody - HIV-1 and HIV-2 antibodies - Urine culture - POCT , urine manually resulted - POCT urinalysis dipstick manually resulted , unspecified gestational age - Type and screen; Future - ABO/Rh; Future - CBC and differential - Hemoglobin A1c - RPR - Rubella antibody, IgG - Hepatitis B surface antigen - Hepatitis C antibody - HIV-1 and HIV-2 antibodies - Rapid drug screen, urine; Future Encounter for supervision of normal first in first trimester - Rapid drug screen, urine; Future Nurse Note: OB Intake: Patient presents today for first OB visit. Patients history has been reviewed in great detail including any potential risks. Patient signed consent forms and patient desires testing in both trimesters. Patient currently has no complaints and has been advised to drink 6-8 glasses of water a day, eat no raw or undercooked meat, and stay away from [facility]. Patient has also been advised to not change litter boxes and eat 6 small meals a day. Patient has been consulted regarding the do's and don'ts of . Patient was given labs and all questions and concerns were answered. Follow Up: Patient is to return in 4 weeks for routine OB appointment. Follow Up: Patient is to have labs drawn at directed and return to office for initial OB appointment with provider. Patient may call office as needed with any concerns or questions. Nurse Visit Completed by: Cathy Dick LPN documented in this encounter [facility] 01-05-2024 History of Present illness Narrative Subjective [...] Ketones, Urine NEGATIVE NEGATIVE mg/dl POC Specific [place], Urine 1.010 1.005 - 1.035 POC Blood, [...] pyelonephritis, Macrobid prescribed. She will take Azo kxwm-bjo-btjyjbk, acetaminophen, fluids, etc. Follow-up as needed. Patient [...] [facility] Work Phone: 01-05-2024 Instructions Maryann Choudhuryselinatiff - 01/05/2024 11:45 AM EDT No signs of acute pyelonephritis, Macrobid prescribed. She will take Azo cvzn-qmc-zwqfmlb, acetaminophen, fluids, etc. Follow-up as needed. Patient declined urine culture after counseling. documented in this encounter [facility] Work Phone: 09-01-2023 Note HNO ID: [id number] Author: ROULA BLEDSOE APRN.STONE CARRIAGE OPERATOR Service: ? Author Type: Nurse Practitioner Type: [...] Past Histories independently gathered by the clinical community support associate and the remaining scribed note accurately describes my personal service to the patient. Roula Bledsoe APRN.STONE CARRIAGE OPERATOR September 01, 2023 11:26 AM Medical Decision Making: Problems: Moderate: 2+ stable chronic illnesses Risk: Low: Low risk from testing/treatment Medical Decision Making Level: 3 - Low [facility] 09-01-2023 History of Present illness [...] Past Histories independently gathered by the clinical community support associate and the remaining scribed note accurately describes my personal service to the patient. Roula Bledsoe APRN.CNP September 01, 2023 11:26 AM Medical Decision Making: Problems: Moderate: 2+ stable chronic illnesses Risk: Low: Low risk from testing/treatment Medical Decision Making Level: 3 - Low documented in this encounter [facility] 07-22-2023 History of Present illness Narrative Michael Fengelias 37 y.o. SUBJECTIVE Encephalopathy Presenting symptoms: no [...] 04-27-2023 History of Present illness Narrative Michael Fengelias 37 y.o. 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 Given return precautions. [employer] Other 12-05-2022 Chief complaint Narrative - Reported* [...] anxiety follow up [address] Work Phone: 1(748) 702-935808-11-2022 History of Present illness Narrative* Roula Bledsoe, HAIR SPECIALIST.STONE CARRIAGE OPERATOR - 10/17/2021 12:40 PM EDT SKIN EXAM [...] Past Histories independently gathered by the clinical community support associate and the remaining scribed note accurately describes my personal service to the patient. Roula Bledsoe APRN.CNP October 17, 2021 1:05 PM I spent a total of 15 minutes on the date of the service which included preparing to see the patient, gxkw-lz-wopm patient care, completing clinical documentation, performing a medically appropriate examination, and counseling and educating the patient/family/caregiver. [facility] History of Present illness Narrative* MICHAEL [...] breast biopsy: right breast biopsy 2018 at [facility]- fibroepithelial lesion consistent with fibroadenoma * - breast surgery: no * - breast cancer:no * Menarche: 15 * AFLB: 20 * Menopause: no * HRT:no * Family history: both grandfathers with lung cancer * no history of breast or ovarian cancer [facility] Work Phone: 1(699) 878-945908-08-2022 History of Present illness Narrative* MICHAEL WELLER [...] breast biopsy: right breast biopsy 2018 at [facility]- fibroepithelial lesion consistent with fibroadenoma * - breast surgery: no * - breast cancer:no * Menarche: 15 * AFLB: 20 * Menopause: no * HRT:no * Family history: both grandfathers with lung cancer * no history of breast or ovarian cancer [facility] Work Phone: 1(390) 979-497008-02-2022 Chief complaint Narrative - Reported* An interactive [...] visit to discuss insomnia, trazodone not helping [facility] [address] Work Phone: 1(556) 987-490908-02-2022 Chief complaint Narrative - Reported* An interactive [...] visit to discuss insomnia, trazodone not helping [facility] Work Phone: 1(752) 167-473805-06-2022 [place], [place] NAME: MICHAEL WELLER DATE OF : MEDICAL REC#: [id number] WHEEL INSPECTOR: [address], TRANSADMIT DATE: 07/12/2021 09:46:00 AIRCRAFT NAVIGATOR DATE: 07/13/2021 21:00 DICTATING PHYSICIAN: MATT STAPLETON DICTATION DATE: 07/12/2021 12:00 OPERATIVE NOTE OPERATION DATE: 07/12/2021 PROCEDURE: Diagnostic laparoscopy. PREOPERATIVE DIAGNOSIS: Dyspareunia. POSTOPERATIVE DIAGNOSIS: Dyspareunia. ANESTHESIA: General. SURGEON: Matt Stapleton D.O. CHAIN HOOKER: CLIFF Durán URINE OUTPUT: Yellow and clear. [...] Approved by: DR MATT STAPLETON . 07/15/2021 15:07:00[facility]12-27-2012 History general Narrative - Reported* Type Description Date Medical History 03-04-12 Pathology Report [facility] Surgical History left hip surgery Surgical History tonsillectomy and adenoidectomy Surgical History cholecystectomy Surgical History wisdom teeth Surgical History tumor [employer] Other Evaluation note* Diagnosis Lentigines- Primary Other dyschromia Multiple benign nevi Benign neoplasm of skin, site unspecified Valles angioma Nevus, non-neoplastic Exposure to tanning bed, sequela Hx of malignant melanoma Personal history of malignant melanoma of skin Dermatofibroma Benign neoplasm of skin, site unspecified [facility] Work [facility]: Evaluation note* Diagnosis Abnormal [...] melanoma of skin [facility] Diagnosis Onset Date Resolution Status UTI (urinary tract infection) acute [facility] Work Phone: Evaluation note* Diagnosis Acute lower UTI- Primary Urinary tract infection, site not specified Urine frequency documented in this encounter [facility] Work Phone: Evaluation note* Diagnosis Missed menses , unspecified gestational age Encounter for supervision of normal first in first trimester documented [facility]* The last health [...] area gets bumped. 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 [...] for walks, read books. No regular exercise. [facility] Work Phone: History of Present illness [...] area gets bumped. 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 [...] for walks, read books. No regular exercise. 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 [...] for walks, read books. No regular exercise. [facility] [address] Work Phone: History of Present illness [...] discharge from lumps. 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 [...] past, but this made her sleep worse. [facility] [address] Work Phone: History of Present illness [...] discharge from lumps. 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 [...] past, but this made her sleep worse. [facility] Work Phone: History of Present illness Narrative* Patient presents to clinic with complaints of pain during sex and mild Ricardo. Her assessment was significant for mild strength deficits and decreased movement of her pelvic floor. Patient will benefit from skilled PT to address these impairments. * Clinical Presentation: Stable and/or uncomplicated characteristics. * Level of Complexity: low [facility] Work Phone: History of Present [...] urology for painful intercourse. Planning physical therapy. ZQ[facility]ZTPW[facility]Obxnkcud [facility] Work Phone: History of Present illness [...] urology for painful intercourse. Planning physical therapy. [facility] Work Phone: History of Present illness [...] been able to have these done yet. FN-RYKS[facility]Pllgdsws [address] Work Phone: Instructions* Name Dates Details Instructions not documented [facility]xcd[facility]fc[facility]Ttyrszpb Work Phone: Family History Unknown Family Member [...] Recorded Date/ Time Advance Directives No October 09, 2 019 2:01pm Chief Complaint and Reason for Visit Chief Complaint Health Screening Chief Complaint foot pain Chief Complaint possible uti Reason for Visit UTI (urinary tract i nfection) Reason for Referral Specialty Diagnoses / Procedures Referred By Contac t Referred To Contact Radiology Diagnoses Lump in female breast Procedures [place] [address] [facility] [place] [address] [place] [id number] Referral ID Status Reason Start Date Expiration Date Visits Requested Visits Authorized [id number] Pending Review Perform Procedure 3 06/17/2023 1 1 Additional Source Comments INFORMATION SOURCE (unrecogn ized section and content) DATE CREATED AUTHOR 07/19/2021 [facility] DATE CREATED AUTHOR AUTHOR'S ORGANIZ ATION 10/16/2021 [facility] DATE CREATED AUTHOR AUTHOR'S ORGANIZ ATION 03/02/2022 [facility] DATE CREATED AUTHOR AUTHOR'S ORGANIZ ATION 10/17/2022 [facility] DATE CREATED AUTHOR AUTHOR'S ORGANIZ ATION 12/11/2022 [facility] DATE CREATED AUTHOR AUTHOR'S ORGANIZ ATION 07/25/2023 [facility] DATE CREATED AUTHOR AUTHOR'S ORGANIZ ATION 09/03/2023 [facility] DATE CREATED AUTHOR AUTHOR'S ORGANIZ ATION 09/07/2023 [facility] DATE CREATED AUTHOR AUTHOR'S ORGANIZ ATION 11/14/2023 [facility] DATE CREATED AUTHOR AUTHOR'S ORGANIZ ATION 01/06/2024 Urgent Care DATE CREATED AUTHOR AUTHOR'S ORGANIZ ATION 02/19/2024 [facility] EPIC Reason for Visit (unrecogniz ed section and content) Reason Comments Full Body Skin Check Specialty Diagnoses / Procedures Referred By Contac t Referred To Contact Radiology Diagnoses Abnormal mammogram Procedures BI mammo bilateral diagnostic tomosynthesis BI [place] [address] [facility] [place] [address] [place] [address] Referral ID Status Reason Start Date Expiration Date Visits Requested Visits Authorized [id number] Pending Review Perform Procedure 12/03/2022 06/01/2023 1 1 Specialty Diagnoses / Procedures Referred By Contac t Referred To Contact Radiology Diagnoses Lump in female breast Procedures [place] [address] [facility] [place] [address] [place] [address] Referral ID Status Reason Start Date Expiration Date Visits Requested Visits Authorized [id number] Pending Review Perform Procedure 3 06/17/2023 1 1 Reason Comments New Patient Visit NPV- ADHD Specialty Diagnoses / Procedures Referred By Contac t Referred To Contact Neurology Diagnoses Anxiety Procedures LA OFFICE/OUTPATIENT NEW HIGH MDM 60-[place] [address] [facility] [place] [address] [place] [address] Jhonny Issa MD [address] [facility] [place] [address] [place] [address] Referral ID Status Reason Start Date Expiration Date Visits Requested Visits Authorized [id number] Pending Review Specialty Services Required 12/03/2022 06/01/2023 1 1 Reason Comments Follow-up 3 month FU. Reason Comments Encephalopathy FU. Reason Comments UTI 2 days Reason Comments Amenorrhea Source Comments (unrecognize d section and content) In the event this informatio n is protected by the Federal Confidentiality of Alcohol and Drug Abuse Patient Records regulations: The Federal rules restrict any use of the information to criminally investigate or prosecute any alcohol or drug abuse patient.[facility] Hospital[facility] the event this information is protected by the Federal Confidentiality of Alcohol and Drug Abuse Patient Records regulations: The Federal rules restrict any use of the information to criminally investigate or prosecute any alcohol or drug abuse patient.[facility] Care Teams (unrecognized sec tion and content) Trip Motor Operator Relationship Specialty Start Date End Date Danielle Infante [address] [facility] [address] [place] [address] PCP - General Family Practice 06/10/16 Team Status: Inactive Member Role Status Dates Danielle Infante , Primary Care Provider Active Kp Alvares DO [facility] Attending Provider Active Team Status: Active Member Role Status Dates Danielle Infante DO Primary Care Provider Active Team Status: Inactive Member Role Status Dates Danielle Infante , Primary Care Provider Active Bolivar Sherman , SCHEDULE CLERK-C Attending Provider Activ e Trip Motor Operator Relationship Specialty [place] [address] [facility] [address] [place] [address] PCP - General Family Medicine 10/29/22 Trip Motor Operator Relationship Specialty [place] [address] [address] PCP - General Family Medicine 10/29/22 Trip Motor Operator Relationship Specialty [place] [address] [address] PCP - General Family Medicine 10/29/22 Trip Motor Operator Relationship Specialty [place] [address] [address] PCP - General Family Medicine 10/29/22 Jhonny Issa MD [address] [facility], [address] [address] Consulting Physician Neurology 02/19/23 Trip Motor Operator Relationship Specialty [place] [address] [address] PCP - General Family Medicine 10/29/22 Jhonny Issa MD [address] [facility], [address] [address] Consulting Physician Neurology 02/19/23 Trip Motor Operator Relationship Specialty Start [place] [address] [address] PCP - General Family Medicine 10/29/22 [place] [address] [address] PCP - MMO ACO PCP 03/09/23 Jhonny Issa MD [address] [facility], [address] [address] Consulting Physician Neurology 02/19/23 Trip Motor Operator Relationship Specialty Start Date End Date Danielle Infante DO [address] [address] PCP - General Family Medicine 06/10/16 Team [...] September 05, 2023 End: September 05, 2023 Trip Motor Operator Relationship Specialty Start Date End Date Jhonny Issa MD [address] [facility] [place] [address] [place] [address] Consulting Physician Neurology 02/19/23 Trip Motor Operator Relationship Specialty Start Date End Date Danielle Infante DO [address] [facility] [address] [place] [address] PCP - General Family Medicine 07/15/22 Trip Motor Operator Relationship Specialty Start Date End Date Danielle Infante DO [address] [facility] [address] [place] [address] PCP - General Family Medicine 07/15/22 Trip Motor Operator Relationship Specialty Start Date End Date Danielle Infante DO [address] [facility] [address] [place] [address] PCP - General Family Medicine 07/15/22 Trip Motor Operator Relationship Specialty Start Date End Date Danielle Infante DO [address] [facility] [address] [place] [address] PCP - General Family Medicine 07/15/22 Goals [...] BE BASED ON THE PRIMARY CLINICAL RECORDS. [employer] [facility]. provides no warranty or guarantee of the accuracy or completeness of information in this document.
[2024-02-26] MEDS: ONDANSETRON 4 MG RAPDIS TABLET SL (17:45)
[2024-02-26 18:02] LABS: Bilirubin Urine NEGATIVE (NEGATIVE); Blood Urine NEGATIVE (NEGATIVE); Clarity Urine CLEAR (CLEAR); Color Urine LT. YELLOW (YELLOW); Glucose Urine UA NEGATIVE (NEGATIVE); Ketones Urine NEGATIVE (NEGATIVE); Leukocyte Esterase Urine NEGATIVE (NEGATIVE); Nitrite Urine NEGATIVE (NEGATIVE); Protein Urine NEGATIVE (NEG/TRACE); Urobilinogen Urine 0.2 EU/dL (0.2-1.0)
--- NOTE | 2024-02-26 18:10 | ECG_ITS ---
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
[2024-02-26 18:12] LABS: Bacteria Urine TRACE #/HPF (NONE SEEN); Mucus Urine TRACE (NONE SEEN); RBC Urine 0-2 #/HPF (0-2); WBC Urine NONE SEEN #/HPF (NONE SEEN)
[2024-02-26 18:13] LABS: Cast Seen? NONE SEEN #/LPF (NONE SEEN); Crystals Seen? None Seen #/HPF (None Seen); Influenza Virus A Antigen Negative; Influenza Virus B Antigen Negative; Internal Control Within Normal Limits; Squamous Epithelial Cell Urine FEW #/LPF (NONE/RARE)
[2024-02-26 18:14] LABS: SARS-CoV-2 Ag POSITIVE (NEGATIVE)
--- NOTE | 2024-02-26 18:23 | ED_ITS ---
HPI HPI - General Adult General Chief complaint: Upper Respiratory Infection Stated complaint: body aches, sob, 9 weeks preg Time Seen by Provider: 02/26/24 17:14 Source: patient Mode of arrival: walk-in Limitations: no limitations History of Present Illness HPI narrative: Patient is a who is presenting today with chief complaint of myalgia, arthralgias, right-sided frontal parietal occipital headache along with right- sided neck pain. Patient has been having almost daily nausea and vomiting throughout this . Patient has been on several different antiemetics from Dr. Stapleton, her [employer]. Patient is currently using Phenergan at home. 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 No significant stressors at this time. Patient has a fever, she been using Tylenol to help with her fever, aches and pains today. Patient was in the shower, she was using a lot of warm water hot water in her back because it felt good initially. Then patient became short of breath, had an episode of nausea and vomiting and shower, and then turned the water off and the shortness of breath episode only lasted for a minute or 2. Patient was also coming to the ER with her mother, the car was warm, patient felt warm, flushed, and again had another episode of shortness of breath that lasted for few minutes, patient rolled the windows down, and the shortness of breath improved. Patient has no sick contacts. Patient has no history of blood clots. Patient's sister had blood clots but she is uncertain how or when or why. Patient does not have any shortness of breath here. Patient has shortness of breath at home in the shower and then sitting in the car on the way here during the episodes explained above. Patient did not have any shortness of breath with short exertion today. Patient had a mild right earache last night when she went to bed, felt slightly achy last night but no significant findings. Patient has 3 live children, 2 miscarriages, this is her 8 . No head injury. No recent trauma. All systems are negative except as noted/marked. All systems reviewed and otherwise negative. Nurses note and vital signs reviewed and patient is not hypoxic. General: The patient appears well and in no apparent distress. Patient is resting comfortably on cart. Patient is not toxic, lethargic, or listless Skin: Warm, dry, no pallor noted. There is no rash noted. No petechiae, purpura. Head: Normocephalic, atraumatic, patient is having photophobia, patient has no significant tenderness palpation to bilateral frontal and maxillary sinuses. Patient does have mild tenderness to palpation that is reproducible to the right paracervical muscle/soft tissue. Patient has full rotation and sidebending flexion extension with no significant difficulty, no meningeal signs or symptoms. Eye: Normal conjunctiva, no drainage, EOMI. PERRL pupils are 4/2, equal, bilateral.. Ears, Nose, Mouth, and Throat: oral mucosa is moist. Nares patent. Mouth without vesicles. Cardiovascular: Regular Rate and Rhythm, no murmur, gallop, rub Respiratory: Patient is in no distress, no accessory muscle use, lungs are clear to auscultation, no wheezing, rales or rhonchi Back: non-tender, no CVA tenderness bilaterally to percussion. No CT LS midline pain GI: no tenderness to palpation, no masses appreciated. No rebound, guarding, or rigidity noted. No distention. Minimal periumbilical tenderness to palpation. No peritoneal signs. Musculoskeletal: Patient has full range of motion of all of the extremities, no motor, sensory, or focal neurological deficits. No pitting edema noted. No unilateral swelling. Neurological: A&O x4, normal speech Psychiatric: Cooperative Related Data Previous Rx's ?Medication ?Instructions ?Recorded promethazine 25 mg rectal 25 mg MN Q6H PRN nausea and 02/26/24 suppository vomiting #6 ea Allergies Allergy/AdvReac Type Severity Reaction Status Date / Time loracarbef (From Lorabid) Allergy Severe infection Verified 02/26/24 17:23 in hip NSAIDS (Non-Steroidal AdvReac Severe medical Verified 02/26/24 17:23 Anti-Inflamma Opioid HPI Opioid Management Most Recent Opioid Data: No Data to Display PFSH PFSH Social History Little interest or pleasure in doing things: not at all Feeling down, depressed, or hopeless: not at all Exam Constitutional Vital Signs, click to edit/add: Last Vital Signs Temp 99.8 F 02/26/24 17:16 Pulse 109 H 02/26/24 19:25 Resp 16 02/26/24 19:25 BP 118/72 02/26/24 19:25 Pulse Ox 96 02/26/24 19:25 O2 Del Method Room Air 02/26/24 19:25 Course Vital Signs Vital signs: Vital Signs Temperature 99.8 F 02/26/24 17:16 Pulse Rate 126 H 02/26/24 17:16 Respiratory Rate 20 02/26/24 17:16 Blood Pressure 129/77 02/26/24 17:16 Pulse Oximetry 97 02/26/24 17:16 Oxygen Delivery Method Room Air 02/26/24 17:16 Temperature 99.8 F 02/26/24 17:16 Pulse Rate 109 H 02/26/24 19:25 Respiratory Rate 16 02/26/24 19:25 Blood Pressure 118/72 02/26/24 19:25 Pulse Oximetry 96 02/26/24 19:25 Oxygen Delivery Method Room Air 02/26/24 19:25 Medical Decision Making MDM Narrative Medical decision making narrative: Patient is COVID-positive. I discussed at length with performing CT of the head because of right sided unilateral headache and also CTA of the chest secondary to acute shortness of breath at rest. Risk and benefits were discussed of performing CAT scan while she is . Patient did not have any shortness of breath with exertion today, she only had the 2 episodes in the shower and of the car ride here where she was very warm and hot and flushed. Patient did not have any shortness of breath with exertion. Patient is not hypoxic. Patient is tachycardic. Patient also did have a fever at home earlier today. Shared decision making was done at bedside with patient, myself and mother. Austin fletcher has elected not to have any CT scans at this time, she would rather do a [id number] approach to see what lab testing shows, and how her symptoms are in the next day or 2. Patient was given Zofran ODT initially. Patient will be given IV Compazine to help with nausea vomiting and headache as well. Patient had a nonrebreather that was placed at 15 L for 20 minutes to help with her headache as well. Patient did have IV, lab work, urine check. Patient had influenza and COVID done. Patient was tachycardic when she initially arrived. Patient was given IV fluids. Patient urine shows no signs of infection, no significant signs of dehydration, ketones negative. Lab work shows no significant abnormalities, her COVID test was positive. Does not have any significant agitation, anxiety since Compazine was given, however she stated that she felt like this when she entered the ER. Patient does have endings history of anxiety. Patient was given Benadryl to help more with the headache. The oxygen did not help. IV fluids and a help. Patient wanted to be discharged. After Benadryl was given, patient wanted the IV out and she wanted to be discharged. Patient did not want additional medication to help with her headache, she wanted to be discharged. Patient has Phenergan tablets at home. She was prescribed Phenergan suppositories to help. No questions at discharge. Lab Data Labs: Lab Results 02/26/24 02/26/24 Range/Units 17:50 18:20 WBC 6.8 (4.0-11.0) 10^3/uL RBC 3.95 L (4.20-5.40) 10^6/uL Hgb 11.2 L (12.0-16.0) g/dL Hct 34.3 L (36.0-48.0) % MCV 86.8 (81.0-99.0) fL MCH 28.4 (26.7-34.0) pg MCHC 32.7 (29.9-35.2) g/dL RDW 13.1 (11.0-15.0) % Plt Count 139 L (150-450) 10^3/uL MPV 12.1 (9.5-13.5) fL Seg Neuts % (Manual) 88.0 H (43.0-75.0) Lymphocytes % (Manual) 5.0 L (20.5-60.0) % Monocytes % (Manual) 7.0 (1.7-12.0) % Eosinophils % (Manual) 0.0 L (0.9-7.0) % Basophils % (Manual) 0.0 L (0.2-2.0) % Neutrophils # (Manual) 5.98 (1.4-6.5) 10^3/uL Lymphocytes # (Manual) 0.34 L (1.20-3.80) 10^3/uL Monocytes # (Manual) 0.47 (0.30-0.80) 10^3/uL Eosinophils # (Manual) 0.00 (0.00-0.70) 10^3/uL Basophils # (Manual) 0.00 (0.00-0.10) 10^3/uL Sodium 135 L (136-145) mmol/L Potassium 3.9 (3.5-5.1) mmol/L Chloride 100 (98-107) mmol/L Carbon Dioxide 24.5 (21.0-32.0) mmol/L Anion Gap 14.4 BUN 10.0 (7.0-18.0) mg/dL Creatinine 0.53 L (0.55-1.02) mg/dL Est GFR ( Amer) >60 (>=60 mL/min/1.73m^2) Est GFR (Non-Af Amer) >60 (>=60 mL/min/1.73m^2) BUN/Creatinine Ratio 18.9 Glucose 88 (74-106) mg/dL Calcium 8.6 (8.5-10.1) mg/dL Total Bilirubin 0.3 (0.2-1.0) mg/dL AST 28 (15-37) U/L ALT 42 (14-59) U/L Alkaline Phosphatase 56 (46-116) U/L Total Creatine Kinase 39 (26-192) U/L Troponin I High Sens 9.6 (4.0-51.3) pg/mL Total Protein 6.6 (6.4-8.2) g/dL Albumin 3.0 L (3.4-5.0) g/dL Globulin 3.6 g/dL Albumin/Globulin Ratio 0.8 Urine Color Lt. yellow (YELLOW) Urine Clarity Clear (CLEAR) Urine pH 7.0 (5.0-9.0) Ur Specific [place] 1.020 (1.005-1.025) Urine Protein Negative (NEG/TRACE) mg/dL Urine Glucose (UA) Negative (NEGATIVE) mg/dL Urine Ketones Negative (NEGATIVE) mg/dL Urine Occult Blood Negative (NEGATIVE) Urine Nitrite Negative (NEGATIVE) Urine Bilirubin Negative (NEGATIVE) Urine Urobilinogen 0.2 (0.2-1.0) EU/dL Ur Leukocyte Esterase Negative (NEGATIVE) Urine RBC 0-2 (0-2) #/HPF Urine WBC None seen (NONE SEEN) #/HPF Ur Squamous Epith Cells Few A (NONE/RARE) #/LPF Urine Crystals None seen (None Seen) #/HPF Urine Bacteria Trace A (NONE SEEN) #/HPF Urine Casts None seen (NONE SEEN) #/LPF Urine Mucus Trace A (NONE SEEN) Influenza Type A Ag Negative Influenza Type B Ag Negative SARS-CoV-2 Ag (CV2AG) Positive A (NEGATIVE) ECG Data Attestation: I personally reviewed and interpreted this ECG as follows: (EKG interpretation. Sinus tachycardia at 116. Normal axis deviation. No acute ST elevation, no acute ectopy. QTc of 391.) Discharge Plan Discharge Chief Complaint: Upper Respiratory Infection Clinical Impression: COVID, Dyspnea, Mild dehydration, Headache Patient Disposition: Home, Self-Care Time of Disposition Decision: 19:09 Condition: Fair Mode of Transportation: Private Vehicle Prescriptions / Home Meds: New promethazine 25 mg suppository 25 mg MN Q6H PRN (Reason: nausea and vomiting) Qty: 6 0RF Print Language: Urdu Instructions: Nausea and Vomiting in (ED), Acute Headache (ED), Cold Symptoms (ED), Face Coverings (Masks) and COVID-19 (ED) Additional Instructions: Increase fluids at home, Gatorade, Powerade, water. Continue symptomatic treatment for flulike symptoms, COVID at home. Follow-up with Dr. Stapleton next week if Phenergan is not helping. I did prescribe Phenergan suppositories to use if needed. Use Tylenol as needed for body aches, headache, myalgia and arthralgia. Return back to the ER for intractable nausea, vomiting, or any other acute complaints Referrals: Physician,Non-Staff, MD [Primary Care Provider] - 1 week Discharge Date/Time: 02/26/24 19:30
[2024-02-26] MEDS: 0.9 % SODIUM CHLORIDE 500 ML IV (18:29)
[2024-02-26] MEDS: ACETAMINOPHEN 500 MG TABLET PO (18:30)
[2024-02-26] MEDS: PROCHLORPERAZINE 10 MG/2 ML VIAL IV (18:31)
[2024-02-26 18:35] LABS: Hematocrit 34.3 % (36.0-48.0); Hemoglobin 11.2 g/dL (12.0-16.0); Mean Corpuscular HGB Conc 32.7 g/dL (29.9-35.2); Mean Corpuscular Hemoglobin 28.4 pg (26.7-34.0); Mean Corpuscular Volume 86.8 fL (81.0-99.0); Mean Platelet Volume 12.1 fL (9.5-13.5); Platelet Count 139 10^3/uL (150-450); Red Blood Count 3.95 10^6/uL (4.20-5.40); Red Cell Distribution Width 13.1 % (11.0-15.0); White Blood Count 6.8 10^3/uL (4.0-11.0)
[2024-02-26 18:40] VITALS: PULSE 121
[2024-02-26 18:50] VITALS: PULSE 114
[2024-02-26 18:56] LABS: Alanine Aminotransferase 42 U/L (14-59); Albumin Globulin Ratio 0.8; Alkaline Phosphatase 56 U/L (46-116); Anion Gap 14.4; Aspartate Amino Transferase 28 U/L (15-37); BUN Creatinine Ratio 18.9; Bilirubin Total 0.3 mg/dL (0.2-1.0); Calcium 8.6 mg/dL (8.5-10.1); Carbon Dioxide 24.5 mmol/L (21.0-32.0); Chloride 100 mmol/L (98-107); Creatine Kinase 39 U/L (26-192); Estimated GFR (African America >60 (>=60 mL/min/1.73m^2); Estimated GFR (Non-African Ame >60 (>=60 mL/min/1.73m^2); Globulin 3.6 g/dL; Glucose 88 mg/dL (74-106); Lymphocytes Absolute Manual 0.34 10^3/uL (1.20-3.80); Monocytes Absolute Manual 0.47 10^3/uL (0.30-0.80); Potassium 3.9 mmol/L (3.5-5.1); Segmented Neut Absolute Manual 5.98 10^3/uL (1.4-6.5); Sodium 135 mmol/L (136-145); Total Protein 6.6 g/dL (6.4-8.2); Troponin I High Sensitivity 9.6 pg/mL (4.0-51.3)
[2024-02-26] MEDS: DIPHENHYDRAMINE HCL 50 MG/ML VIAL 25 MG IV (19:12)
[2024-02-26 19:25] VITALS: BP 118/72; PULSE 109; O2SAT 96
== END 2024-02-26 19:30 | disposition home or self-care (01) ==
PROVIDERS: Emergency Provider Emergency Medicine
DX: O98.511 Other viral diseases complicating pregnancy, first trimester (principal); U07.1 COVID-19; Z3A.09 9 weeks gestation of pregnancy; R06.00 Dyspnea, unspecified; E86.0 Dehydration; R51.9 Headache, unspecified
CPT/HCPCS: 36415; 80053; 81001; 82550; 84484; 85007; 85027; 87804; 87811; 93005; 96374; 96375; 99285; J0780; J1200; Q0162

== ENCOUNTER 2024-03-08 11:28 | Outpatient (OUT) | payer OTHER, SELFPAY ==
--- OUTSIDE RECORDS SUMMARY | 2024-03-08 11:55 | XMS_ITS | CCD ---
Author Organization [facility] Care Team Providers Care Shot Peen Operator Name Role Phone Rafaela Arguello Un[place] [id number], [facility] Unavailable Unavailable Rafaela Arguello Unavailable Unavailable [...] Unavaliliana Aguilar, Luz Coombs Attending Unavailable Hema, MsJoanthan Schultz Primary Care Aisha Aguilar, Luz Malvin Attending Unavailable Lauren, Luzcipriano Coombs Referring Unavailable Bolivar Sherman Unavailable DO Danielle Infante Primary Care Provider SCOTT Sherman Attending Provider Karolina Man DO Primary Care Provider Jhonny Issa MD Unavailable [phone] Donovan SORIA, Karolina Cota Unavailable KAROLINA MAN [...] Primary Care Azael LAYNE Robles Attending Provider [phone] NO FAMILY, PHYSICIAN Primary Care Unavailable Swetha Andersen Attending Unavailable Swetha Andersen Admitting Unavailable KAROLINA MAN Referring Unavailable KAROLINA MAN Primary Care Unavailable KAROLINA MAN Referring Unavailable KAROLINA MAN Primary Care Unavailable MARYANN DAVSION Attending Unava ilable Danielle Infante DO Primary Care Provider MATT STAPLETON Attending Unavailable MATT STAPLETON Attending Unavailable Allergies Allergy Classification Reported Allergen(s) Allergy Type Date of Onset Reaction(s) Facility Cephalosporins (antibiotic) (1 source) loracarbef Drug Allergy [facility] Work Phone: Latex (1 source) natural latex rubber Substance Allergy [facility] Work Phone: NSAIDs (1 source) NSAIDs Drug Allergy [facility] Work Phone: (20 sources) loracarbef; Translations: [loracarbef] Drug Allergy 08-29-19 23 Unknown [id number] Work Phone: (20 sources) natural latex rubber; Translations: [LATEX] Allergy to substance (finding) 08-29-19 [place] [address] Repository (20 sources) NSAIDs; Translations: [NSAIDs] Allergy to drug (finding) Unknown [id number] Work Phone: (20 sources) Animal dander - Cats Allergy to substance (finding) [id number] Work Phone: (2 sources) Latex Drug allergy (disorder) [facility] Repository (1 source) loracarbef Drug Allergy [facility] Repository (5 sources) NSAIDs; Translations: [NSAIDS (NON-STEROIDAL ANTI-INFLAMMATOR Y DRUG)] Drug allergy (disorder) 06-11-19 17 [facility] Repository (7 sources) Non-steroidal anti-inflammator y agent Propensity to adverse reactions to drug 06-11-19 Other: See Comments, Other [facility] (8 sources) Latex Propensity to adverse reactions 08-29-19 Unknown, Rash [facility] Other (10 sources) Cat Dander; Translations: [CAT DANDER] Allergy to substance 11-29-19 23 Unknown, Itching [facility] (3 sources) NSAIDS (Non-Steroidal Anti-Inflamma; Translations: [NSAIDS (Non-Steroidal Anti-Inflamma] Allergy to substance 09-05-19 Itching [facility] (1 source) Latex Drug allergy (disorder) 09-05-19 [facility] Repository (3 sources) CAT HAIR STANDARDIZED ALLERGENIC EXTRACT; Translations: [CAT HAIR STANDARDIZED ALLERGENIC EXTRACT] Propensity to adverse reactions to drug (disorder) 11-29-19 [facility] Rep[facility] (4 sources) Latex Allergy to substance 08-29-19 Rash [facility] (4 sources) Non-steroidal anti-inflammator y agent Drug Allergy 06-11-19 Other, Unknown, Itching [facility] Healthcare (4 sources) Cat Hair Extract Allergy to substance 11-29-19 Itching [facility] Medications Current Medications Medication Drug Class(es) Dates [...] Interpretation and review of laboratory results Abnormal [facility] Preg Test, Ur Positive Negative [facility] Urinalysis macro (dipstick) panel (U)on 02-16-2024 Bilirubin, UA Negative Negative - 4(70) +++ mg/dL [facility] Blood, UA Negative Negative - 50 Shaun/mcL [facility] Clarity, UA Clear [facility] Color, UA Yellow [facility] Glucose, UA Negative Negative - 1999(110) ++++ mg/dL [facility] Interpretation and review of laboratory results Normal [facility] Ketones, UA Negative Negative - 160(16) ++++ mg/dL [facility] Leukocytes, UA Negative Negative - 500+++ Denys/mcL [facility] Nitrite, UA Negative Negative - Positive [facility] pH, UA 6.5 5 - 9 [facility] Protein, UA Negative Negative - 1999(20) ++++ mg/dL [facility] Spec Grav, UA 1.02 1 - 1.03 [facility] Urobilinogen, UA 1.0 0.2 - 12 mg/dL [facility] PREG QUANT HCGon 024 HCG QUANTITATIVE 57026 mIU/mL [facility] Comment on above: 5-50 0.2-1 WEEK 50-500 1-2 WEEKS 100-5,000 2-3 WEEKS 500-10,000 3-4 WEEKS 1,000-50,000 4-5 WEEKS 10,000-100,000 5-6 WEEKS 15,000-200,000 6-8 WEEKS 10,000-100,000 2-3 MONTHS [facility] PREG QUANT HCGon 024 HCG QUANTITATIVE 5650 mIU/mL [facility] Comment on above: 5-50 0.2-1 WEEK 50-500 1-2 WEEKS 100-5,000 2-3 WEEKS 500-10,000 3-4 WEEKS 1,000-50,000 4-5 WEEKS 10,000-100,000 5-6 WEEKS 15,000-200,000 6-8 WEEKS 10,000-100,000 2-[address] [facility] HCG ( test) Ql (U)o n 01-05-2024 Interpretation and review of laboratory results Normal [facility] Work Phone: Preg Test, Ur Negative Negative [facility] Work Phone: [facility] Work Phone: POCT UA Automated manually r esultedon 01-05-2024 Appearance (U) Cloudy Abnormal Clear [facility] Work Phone: Glucose Test strip (U) [Mass/Vol] Negative NEGATIVE mg/dl [facility] Work Phone: Hemoglobin Ql (U) Negative NEGATIVE [facility] Work Phone: Interpretation and review of laboratory results Abnormal [facility] Work Phone: Leukocyte esterase Test strip Ql (U) SMALL (1+) Abnormal NEGATIVE [facility] Work Phone: Nitrite Ql (U) Positive Abnormal NEGATIVE [facility] Work Phone: pH (U) 7.5 [pH] No Reference Range Established [facility] Work Phone: POC Bilirubin, Urine Negative NEGATIVE [facility] Work Phone: POC Color, Urine Yellow Straw, [place] ow, Light-Yellow [facility] Work Phone: POC Ketones, Urine Negative NEGATIVE mg/dl [facility] Work [facility]: POC Protein, Urine Negative NEGATIVE, 30 (1+) mg/dl [facility] Work Phone: POC Specific [place], Urine 1.010 1.005 - 1.035 [facility] Work Phone: POC Urobilinogen, Urine 0.2 0.2, 1.0 EU/DL [facility] Work Phone: [facility] Work Phone: IGP,APTIMA HPV,AGE GDLNon AGE GDLN ACOG TESTING Note . [facility] Comment on above: TESTS RESULT FLAG UN ITS REF RANGE LAB Clinician Provided Cytology Information Source.............Cervix;Endocervix No. of containers..01 ThinPrep Vial Age Algo ACOG Katherin... FLAG LEGEND: L-Low Normal,H-High Normal,LL-Alert Low,HH-Alert High <-Panic Low,>-Panic High,A-Abnormal,AA-Critical Abnormal Performed at: 01 =[address] [place] [address] Lacy Perez MD, HPV APTIMA Negative Negative [facility] Comment on above: This nucleic acid am plification test detects fourteen high- risk HPV types (16,18,31,33,35,39,45,51,52,56,58,59,66,68) without differentiation. Performed at: =[facility] [address] [id number] Supervisor Cloth Winding: Lacy Perez MD, Phone: [phone] Performed at: [address] [id number] Supervisor Cloth Winding: Lacy Perez MD, Phone: [phone] IGP, APTIMA HPV, RFX 16/18,45 Note . [facility] Comment on above: TESTS RESULT FLAG UN ITS REF RANGE LAB DIAGNOSIS: 02 NEGATIVE FOR INTRAEPITHELIAL LESION OR MALIGNANCY. Specimen adequacy: 02 Satisfactory for evaluation. Endocervical and/or squamous metaplastic cells (endocervical component) are present. Performed by: 02 Maryse Tang, Tower Observer (ASCP) . 02 Note: Note 02 The [...] Low,>-Panic High,A-Abnormal,AA-Critical Abnormal Performed at: [address] [address] Lacy Perez MD, BRUSH-SPATULA CERVIX ENDOCERVIX [facility] Urine Cultureon 09-05-2023 Bacteria identified Cx Nom (U) <9,000 colonies/ml mixed bacterial skin contaminants 2 Days PERFORMED BY: [place] [id number] PATHOLOGIST COUNSELING CASE MANAGER ADVID CHILD M.D. Normal [facility] Comment on above: Performed By: #### C UU #### [place] [id number] [facility] CNOVon 09-01-2023 CNOV Office Visit (AMDERM ) MICHAEL WELLER ([id number]) 1985 F Date Time Provider Department 09/01/23 [...] Past Histories independently gathered by the clinical senior technical support analyst and the remaining scribed note accurately describes [...] - dexmethylphenidate (more content not included)... Normal [facility] Drugs of abuse screen W Refl ex confirm panel (U)on 02-19-2023 Amphetamines Screen Ql (U) Negative Normal Presumptive Negative [facility] Comment on above: Order Comment: [...] 8 7428-9 #### ALEJANDRO SUERO RIO REN ([id number]) [facility] ([facility]) [address] [place] [address] Barbiturates Screen Ql (U) Negative Normal Presumptive Negative [facility] Comment on above: Order Comment: [...] By: #### 8 7428-9 #### ALEJANDRO RAMOS ([id number]) [facility] ([facility]) [address] [place] [address] Benzodiazepines Ql (U) Negative Normal Presumptive Negative [facility] Comment on above: Order Comment: [...] 8 7428-9 #### ALEJANDRO SUERO RIO REN ([id number]) [facility] ([facility]) [address] [place] [address] Benzoylecgonine Screen Ql (U) Negative Normal Presumptive Negative [facility] Comment on above: Order Comment: [...] 8 7428-9 #### ALEJANDRO SUERO RIO REN ([id number]) [facility] ([facility]) [address] [place] [address] Cannabinoids Screen Ql (U) Negative Normal Presumptive Negative [facility] Comment on above: Order Comment: [...] By: #### 8 7428-9 #### ALEJANDRO SUERO [facility] ([id number]) [facility] ([facility]) [address] [place] [address] fentaNYL+Norfentanyl Screen Ql (U) Negative Normal Presumptive Negative [facility] Comment on above: Order Comment: [...] 8 7428-9 #### ALEJANDRO SUERO RIO REN ([id number]) [facility] ([facility]) [address] [place] [address] Opiates Screen Ql (U) Negative Normal Presum ptive Negative [facility] Comment on above: Order Comment: [...] 8 7428-9 #### ALEJANDRO SUERO RIO REN ([id number]) [facility] ([facility]) [address] [place] [address] oxyCODONE+oxyMORphone Screen Ql (U) Negative Normal Presumptive Negative [facility] Comment on above: Order Comment: [...] Performed By: #### 8 7428-9 #### ALEJANDRO [facility] ([id number]) [facility] ([facility]) [address] [place] [address] Phencyclidine Ql (U) Negative Normal Presump tive Negative [facility] Comment on above: Order Comment: [...] #### 8 7428-9 #### ALEJANDRO PIO MCCLURE ([id number]) [facility] ([facility]) [address] [place] [address] BI MAMMO BILATERAL DIAGNOSTI C TOMOSYNTHESISon 12-19-2022 BI MAMMO BILATERAL DIAGNOSTIC TOMOSYNTHESIS Interpreted By: Mohan Romano and Avery Ross STUDY: BI MAMMO BILATERAL DIAGNOSTIC TOMOSYNTHESIS; BI US BREAST LIMITED LEFT; 12/19/2022 9:42 am; 12/19/2022 10:52 am ACCESSION NUMBER(S): [id number]; [id number] ORDERING CLINICIAN: KAROLINA MAN INDICATION: Annual screening [...] axillary abnormality was performed by a registered plan manager. No sonographic abnormalities are seen in the [...] any future breast imaging appointments, please call [phone] ([phone]). MACRO: None Signed by: Mohan Romano 12/19/2022 11:32 AM Dictation workstation: [id number] [facility] BI US BREAST LIMITED LEFTon 12-19-2022 BI US BREAST LIMITED LEFT Interpreted By: Mohan Romano and Avery Ross STUDY: BI MAMMO BILATERAL DIAGNOSTIC TOMOSYNTHESIS; BI US BREAST LIMITED LEFT; 12/19/2022 9:42 am; 12/19/2022 10:52 am ACCESSION NUMBER(S): [id number]; [id number] ORDERING CLINICIAN: KAROLINA MAN INDICATION: Annual screening [...] axillary abnormality was performed by a registered plan manager. No sonographic abnormalities are seen in the [...] any future breast imaging appointments, please call [phone] ([phone]). MACRO: None Signed by: Mohan Romano 12/19/2022 11:32 AM Dictation workstation: [id number] [facility] DBT Breast - bilateral diagn osticon 12-19-2022 Radiology Study observation (narrative) [facility] Work Phone: No Panel Informationon 12-19 1. [...] any future breast imaging appointments, please call [phone]). MACRO: None Signed by: Mohan Romano 12/19/2022 11:32 AM Dictation workstation: [id number] [facility] Interpreted By: Mohan Romano, and Jakob Wei STUDY: BI MAMMO BILATERAL DIAGNOSTIC TOMOSYNTHESIS; BI US BREAST LIMITED LEFT; 12/19/2022 9:42 am; 12/19/2022 10:52 am ACCESSION NUMBER(S): [id number]; [id number] ORDERING CLINICIAN: KAROLINA MAN INDICATION: Annual screening [...] axillary abnormality was performed by a registered plan manager. No sonographic abnormalities are seen in the area of the patient's reported palpable lump or pain. 3 morphologically normal lymph nodes are incidentally seen. MMODAL No Panel InformationOrdered By: Mohan Romano on 12-19-2022 [facility] Work Phone: US Breast - left limitedon 1 Radiology Study observation (narrative) [facility] Work Phone: COMPREHENSIVE PANELon 2022 Albumin [Mass/Vol] 4.6 g/dL Normal 3.4 - 5.0 [facility] Comment on above: Performed By: #### C MP #### [facility] [address] [place] [address] ALP [Catalytic activity/Vol] 63 U/L Normal 33 - 110 [facility] Comment on above: Performed By: #### C MP #### [facility] [address] [place] [address] ALT [Catalytic activity/Vol] 23 U/L Normal 7 - 45 [facility] Comment on above: Result Comment: Lacie ents treated with Sulfasalazine may generate falsely decreased results for ALT. Performed By: #### C MP #### [facility] [address] [place] [address] Anion gap [Moles/Vol] 14 mmol/L Normal 10 - 20 [facility] Comment on above: Performed By: #### C MP #### [facility] [address] [place] [address] AST [Catalytic activity/Vol] 22 U/L Normal 9 - 39 [facility] Comment on above: Performed By: #### C MP #### [facility] [address] [place] [address] Bilirubin [Mass/Vol] 0.3 mg/dL Normal 0.0 - 1.2 [facility] Comment on above: Performed By: #### C MP #### [facility] [address] [place] [address] Calcium [Mass/Vol] 9.2 mg/dL Normal 8.6 - 10.6 [facility] Comment on above: Performed By: #### C MP #### [facility] [address] [place] [address] Chloride [Moles/Vol] 102 mmol/L Normal 98 - 107 [facility] Comment on above: Performed By: #### C MP #### [facility] [address] [place] [address] Creatinine [Mass/Vol] 0.66 mg/dL Normal 0.50 - 1.05 [facility] Comment on above: Performed By: #### C MP #### [facility] [address] [place] [address] eGFR FEMALE >90 Normal >90 [facility] Comment on above: Result Comment: CALC ULATIONS OF ESTIMATED GFR ARE PERFORMED USING THE 2020 CKD-EPI STUDY REFIT EQUATION WITHOUT THE RACE VARIABLE FOR THE IDMS-TRACEABLE CREATININE METHODS. https://jasn.asnjournals.org/content//ASN.321224 1479 Performed By: #### C MP #### [facility] [address] [place] [address] Glucose [Mass/Vol] 82 mg/dL Normal 74 - 99 [facility] Comment on above: Performed By: #### C MP #### [facility] [address] [place] [address] HCO3 (Bld) [Moles/Vol] 25 mmol/L Normal 21 - 32 [facility] Comment on above: Performed By: #### C MP #### [facility] [address] [place] [address] Potassium [Moles/Vol] 3.9 mmol/L Normal 3.5 - 5.3 [facility] Comment on above: Performed By: #### C MP #### [facility] [address] [place] [address] Protein [Mass/Vol] 7.2 g/dL Normal 6.4 - 8.2 [facility] Comment on above: Performed By: #### C MP #### [facility] [address] [place] [address] Sodium [Moles/Vol] 137 mmol/L Normal 136 - 145 [facility] Comment on above: Performed By: #### C MP #### [facility] [address] [place] [address] Urea nitrogen [Mass/Vol] 17 mg/dL Normal 6 - 23 [facility] Comment on above: Performed By: #### C MP #### [facility] [address] [place] [address] VITAMIN D, 25-HYDROXYon 11-08 VITAMIN D, 25-HYDROXY 36 ng/mL Normal [facility] Comment on above: Result Comment: . DEFICIENCY: < 20 NG/ML INSUFFICIENCY: 20-29 NG/ML SUFFICIENCY: 30-100 NG/ML THIS ASSAY ACCURATELY QUANTIFIES THE SUM OF VITAMIN D3, 25-HYDROXY AND VIT D2,25-HYDROXY. Performed By: #### V TDOH #### [facility] [address] [place] [address] COMPREHENSIVE PANELon 2022 Lab Specimen Source Normal [facility] Comment on above: Performed By: #### C MP #### [facility] [address] [place], [place] Performed By: #### V TDOH #### [facility] [address] [place] [address] XR foot RT min 3V*on 023 XR foot RT min 3V* [facility] Other XR foot RT min 3V* [facility] Other XR foot RT min 3V* [address] [place] [address] [facility] Other XR foot RT min 3V* [place] [address] [facility] [employer] Other XR foot RT min 3V* XRay Report [facility] Other XR foot RT min 3V* Signed [employer] Other XR foot RT min 3V* Patient: Michael Weller MR#: [id number] [facility] [employer] Other XR foot RT min 3V* [id number] [place] [employer] Other XR foot RT min 3V* : 1985 Acct:[id number] [employer] Other XR foot RT min 3V* Age/Sex: 36 / F ADM Date: 07/02/22 [employer] Other XR foot RT min 3V* Loc: [id number] Room: Type: [facility] [employer] Other XR foot RT min 3V* Attending Dr: Bolivar Sherman [employer] Other XR foot RT min 3V* Copies to: Bolivar Pereyra Lane STATE MANAGERProximetry Other XR foot RT min 3V* Ordering Provider: Bolivar Pereyra [place] [employer] Other XR foot RT min 3V* Date of Service: 07/02/22 [employer] Other XR foot RT min 3V* XR/XR foot RT min 3V*: Right foot pain [employer] Other XR foot RT min 3V* 3 views RIGHT foot [employer] Other XR foot RT min 3V* COMPARISON:None N [employer] Other XR foot RT min 3V* HISTORY: RIGHT 5th metatarsal pain for one week [employer] Other XR foot RT min 3V* Acute findings: None [employer] Other XR foot RT min 3V* Degenerative change: Unremarkable [employer] Other XR foot RT min 3V* Soft tissue findings : Unremarkable [employer] Other XR foot RT min 3V* Joint effusion: None [employer] Other XR foot RT min 3V* Postop changes: None [employer] Other XR foot RT min 3V* XR/XR foot RT min 3V* [employer] Other XR foot RT min 3V* IMPRESSION:No acute findings [employer] Other XR foot RT min 3V* Impression dictated by: Roddy Villegas M.D.07/02/2022 1:27 PM [employer] Other XR foot RT min 3V* Dictation Location: [place] [address] [employer] Other XR foot RT min 3V* Transcribed By: PWS 07/02/22 1327 [employer] Other XR foot RT min 3V* Dictated By: Roddy Villegas DO 07/02/22 1328 [employer] Other XR foot RT min 3V* Signed By: [employer] Other XR foot RT min 3V* 07/02/22 1320 [facility] [employer] Other Office Visit (Primary Care F orms)on [...] Anxiety; YOEL = N; Verified Transmission to [id number]; Last Updated By: Bowen Olmedo; 02/10/2022 3:45:08 [...] BREAST ULTRASOUND; 10/14/2021 3:38 pm ACCESSION NUMBER(S): [id number] ORDERING CLINICIAN: GRAZYNA ROMANO INDICATION: Patient presents with right axillary painful palpable mass for the last 2 years. History of benign right breast mass with unknown pathology in right breast. COMPARISON: Mammogram 06/21/2021, 07/06/2018, 01/08/2018. Breast ultrasound 06/21/2021, 04/23/2020, 07/15/2019, 02/02/2019 FINDINGS: Targeted ultrasound was performed of the right axilla by a registered plan manager using elastography. Within the right axilla, no sonographic abnormality is present. The tissues are soft on elastography. Incidental note of normal appearing right axillary lymph node. IMPRESSION: No sonographic evidence of malignancy. Recommendation is clinical follow-up for patient's symptomatology. Screening mammogram in June 2022. BI-RADS CATEGORY: Category: 2 - Benign. Recommendation: Clinical follow-up for symptomatology. For any future breast imaging appointments, please call [phone]). I personally reviewed the images/study and I agree with the findings as stated by radiology special procedure tech Brandt Camarillo MD. Electronically signed by: JAYME STEWART MD Normal [facility] [place] 10-14-2021 MG Breast Screening Normal - ljmt [employer] Work Phone: Albumin [Mass/volume] in Ser um or PlasmaOrdered By: Kp Alvares on 10-07-2021 Albumin [Mass/Vol] 3.9 g/dL 3.2-5.5 [facility] Basophils Auto (Bld) [#/Vol] Ordered By: Kp Alvares on 10-07-2021 Basophils (Bld) [#/Vol] 0.0 10*3/uL 0.0-0.2 [facility] Basophils/100 WBC Auto (Bld) Ordered By: Kp Alvares on 10-07-2021 Basophils/100 WBC (Bld) 0.6 % . [facility] Blood hemoglobin measurement (mass/volume)Ordered By: Kp Alvares on 10-07-2021 Hemoglobin (Bld) [Mass/Vol] 12.9 g/dL 11.8-15.4 [facility] Blood leukocytes automated c ount (number/volume)Ordered By: Kp Alvares on 10-07-2021 WBC (Bld) [#/Vol] 6.7 10*3/uL 4.5-11.0 [facility] Cholesterol [Mass/volume] in Serum or PlasmaOrdered By: Kp Alvares on 10-07-2021 Cholesterol [Mass/Vol] 192 mg/dL 140-200 [facility] Comment on above: Chol less than 200 m g/dl low risk Chol 201-239 mg/dl borderline risk Chol 240 mg/dl and greater high risk Cholesterol in LDL Calc [Mas s/Vol]Ordered By: Kp Alvares on 10-07-2021 Cholesterol in LDL [Mass/Vol] 104 mg/dL 0-100 [facility] Comment on above: LDL ATP III CLASSIFI CATION LDL less than 100 mg/dL Optimal LDL 100-129 mg/dL Near or above optimal LDL 130-159 mg/dL Borderline high LDL 160-189 mg/dL High LDL greater than 189 mg/dL Very high Cholesterol in VLDL Calc [Ma ss/Vol]Ordered By: Kp Alvares on 10-07-2021 Cholesterol in VLDL [Mass/Vol] 49 mg/dL [facility] Creatinine and Glomerular fi ltration rate.predicted panel (S/P/Bld)Ordered By: Kp Alvares on 10-07-2021 Creatinine [Mass/Vol] 0.60 mg/dL 0.44-1.03 [facility] Eosinophils Auto (Bld) [#/Vo l]Ordered By: Kp Alvares on 10-07-2021 Eosinophils (Bld) [#/Vol] 0.0 10*3/uL 0.0-0.45 [facility] Eosinophils/100 WBC Auto (Bl d)Ordered By: Kp Alvares on 10-07-2021 Eosinophils/100 WBC (Bld) 0.1 % . [facility] Erythrocyte distribution wid th Auto (RBC) [Ratio]Ordered By: Kp Alvares on 10-07-2021 Erythrocyte distribution width (RBC) [Ratio] 14.1 % 11.9-15.3 [facility] Estimated glomerular filtrat ion rate (GFR) non- AmericanOrdered By: Kp Alvares on 10-07-2021 GFR/1.73 sq M.predicted among non-blacks MDRD (S/P/Bld) [Vol rate/Area] > 60 mL/Min [facility] Globulin Calc (S) [Mass/Vol] Ordered By: Kp Alvares on 10-07-2021 Globulin (S) [Mass/Vol] 2.7 g/dL [facility] Hematocrit Auto (Bld) [Volum e fraction]Ordered By: Kp Alvares on 10-07-2021 Hematocrit (Bld) [Volume fraction] 39.2 % 34.0-46.4 [facility] - Hematology and Cell countsOrdered By: Kp Alvares on 10-07-2021 Nucleated RBC/100 WBC (Bld) [Ratio] 0.0 % 0-0.5 [facility] Lymphocytes Auto (Bld) [#/Vo l]Ordered By: Kp Alvares on 10-07-2021 Lymphocytes (Bld) [#/Vol] 2.0 10*3/uL 1.00-4.8 [facility] Lymphocytes/100 WBC Auto (Bl d)Ordered By: Kp Alvares on 10-07-2021 Lymphocytes/100 WBC (Bld) 30.2 % . [facility] MCH Auto (RBC) [Entitic mass ]Ordered By: Kp Alvares on 10-07-2021 MCH (RBC) [Entitic mass] 28.2 pg 24.7-34.3 [facility] MCHC Auto (RBC) [Mass/Vol]Or dered By: Kp Alvares on 10-07-2021 MCHC (RBC) [Mass/Vol] 33.0 g/dL 32.0-35.0 [facility] MCV Auto (RBC) [Entitic vol] Ordered By: Kp Alvares on 10-07-2021 MCV (RBC) [Entitic vol] 85.5 fL 80-100 [facility] Monocytes Auto (Bld) [#/Vol] Ordered By: Kp Alvares on 10-07-2021 Monocytes (Bld) [#/Vol] 0.4 10*3/uL 0.0-0.8 [facility] Monocytes/100 WBC Auto (Bld) Ordered By: Kp Alvares on 10-07-2021 Monocytes/100 WBC (Bld) 5.4 % . [facility] Neutrophils Auto (Bld) [#/Vo l]Ordered By: Kp Alvares on 10-07-2021 Neutrophils (Bld) [#/Vol] 4.2 10*3/uL 1.8-7.7 [facility] Neutrophils/100 WBC Auto (Bl d)Ordered By: Kp Alvares on 10-07-2021 Neutrophils/100 WBC (Bld) 63.7 % . [facility] No Panel InformationOrdered By: Kp Alvares on 10-07-2021 Estimated GFR () > 60 mL/Min [facility] Comment on above: GFR estimated refere nce range: According to KDOQI guidelines, <60 ml/min/1.73m2 is sufficient to diagnose a patient with chronic kidney disease. Pharmacy Creatinine Clearance (Chem N/A [facility] Platelet mean volume Auto (B ld) [Entitic vol]Ordered By: Kp Alvares on 10-07-2021 Platelet mean volume (Bld) [Entitic vol] 11.4 fL 6.3-10.7 [facility] Platelets Auto (Bld) [#/Vol] Ordered By: Kp Alvares on 10-07-2021 Platelets (Bld) [#/Vol] 164 10*3/uL 150-450 [facility] Protein [Mass/volume] in Ser um or PlasmaOrdered By: Kp Alvares on 10-07-2021 Protein [Mass/Vol] 6.6 g/dL 6.1-7.9 [facility] RBC Auto (Bld) [#/Vol]Ordere d By: Kp Alvares on 10-07-2021 RBC (Bld) [#/Vol] 4.59 10*6/uL 3.60-5.00 [facility] Serum or plasma alanine bynum otransferase measurement without P-5'-P (enzymatic activiOrdered By: Kp Alvares on 10-07-2021 ALT No additional P-5'-P [Catalytic activity/Vol] 16 U/L 10-60 [facility] Serum or plasma albumin/glob ulin mass ratioOrdered By: Kp Alvares on 10-07-2021 Albumin/Globulin [Mass ratio] 1.4 {ratio} [facility] Serum or plasma alkaline jenn sphatase measurement (enzymatic activity/volume)Ordered By: Kp Alvares on 10-07-2021 ALP [Catalytic activity/Vol] 55 U/L 32-92 [facility] Serum or plasma aspartate am inotransferase measurement (enzymatic activity/volume)Ordered By: Kp Alvares on 10-07-2021 AST [Catalytic activity/Vol] 16 U/L 10-42 [facility] Serum or plasma calcium marlon urement (mass/volume)Ordered By: Kp Alvares on 10-07-2021 Calcium [Mass/Vol] 9.2 mg/dL 8.2-10.2 [facility] Serum or plasma chloride any surement (moles/volume)Ordered By: Kp Alvares on 10-07-2021 Chloride [Moles/Vol] 102 mmol/L 95-114 [facility] Serum or plasma glucose amrlon urement (mass/volume)Ordered By: Kp Alvares on 10-07-2021 Glucose [Mass/Vol] 86 mg/dL 70-100 [facility] Comment on above: ADA recommended refe rence range Random Glucose Reference Range is dependent on time and content of last meal. Glucose of more than 200 mg/dL in a nonstressed, ambulatory subject supports the diagnosis of Diabetes Mellitus. Serum or plasma high density lipoprotein (HDL) cholesterol measurementOrdered By: Kp Alvares on 10-07-2021 Cholesterol in HDL [Mass/Vol] 39 mg/dL 35-85 [facility] Comment on above: HDL CHOL ATP-III CLA SSIFICATION Cardiovascular Risk HDL > or equal to 60 mg/dL LOW HDL < 40 mg/dL HIGH Serum or plasma potassium me asurement (moles/volume)Ordered By: Kp Alvares on 10-07-2021 Potassium [Moles/Vol] 4.1 mmol/L 3.5-5.1 [facility] Serum or plasma sodium measu rement (moles/volume)Ordered By: Kp Alvares on 10-07-2021 Sodium [Moles/Vol] 134 mmol/L 136-146 [facility] Serum or plasma total biliru bin measurement (mass/volume)Ordered By: Kp Alvares on 10-07-2021 Bilirubin [Mass/Vol] 0.6 mg/dL 0.3-1.2 [facility] Serum or plasma total carbon dioxide measurement (moles/volume)Ordered By: Kp Alvares on 10-07-2021 CO2 [Moles/Vol] 25.9 mmol/L 22.0-30.0 [facility] Serum or plasma total choles terol/high density lipoprotein (HDL) cholesterol mass ratOrdered By: Kp Alvares on 10-07-2021 Cholesterol.total/Cho lesterol in HDL [Mass ratio] 4.9 {ratio} <5.0 [facility] Serum or plasma urea nitroge n measurement (mass/volume)Ordered By: Kp Alvares on 10-07-2021 Urea nitrogen [Mass/Vol] 10 mg/dL 9-23 [facility] TSH DL <= 0.005 mIU/L QnOrde red By: Kp Alvares on 10-07-2021 TSH Qn 2.68 m[IU]/L 0.45-5.33 [facility] Triglyceride [Mass/volume] i n Serum or PlasmaOrdered By: Kp Alvares on 10-07-2021 Triglyceride [Mass/Vol] 246 mg/dL 35-149 [facility] Comment on above: TRIG ATP III CLASSIF ICATION TRIG less than 150 mg/dL Normal TRIG 150-199 mg/dL Borderline high TRIG 200-500 mg/dL High TRIG greater than 500 mg/dL Very high Standard traceable to the Center for Disease Conrtrol and Prevention (CDC) test method. CBC AUTO DIFFon 07-12-2021 BASO # 0.0 103/ul Normal 0.0-0.1 [facility] Comment on above: Performed By: #### C BC #### [facility] [address] [place], [place] [address] Dr. Kalyn Gutierrez Basophils/100 WBC (Bld) 0.4 % Normal 0.2-2.0 [facility] Comment on above: Performed By: #### C BC #### [facility] [address] [place] [address] Dr. Kalyn Gutierrez EO # 0.0 103/ul Normal 0.0-0.7 [facility] Comment on above: Performed By: #### C BC #### [facility] [address] [place] [address] Dr. Kalyn Gutierrez Eosinophils/100 WBC (Bld) 0.0 % Critically low 0.9-7.0 [facility] Comment on above: Performed By: #### C BC #### [facility] [address] [place] [address] Dr. Kalyn Gutierrez Erythrocyte distribution width (RBC) [Ratio] 12.8 % Normal 11.0-15.0 [facility] Comment on above: Performed By: #### C BC #### [facility] [address] [place] [address] Dr. Kalyn Gutierrez Hematocrit (Bld) [Volume fraction] 38.8 % Normal 36.0-48.0 [facility] Comment on above: Performed By: #### C BC #### [facility] [address] [place] [address] Dr. aKlyn Gutierrez Hemoglobin (Bld) [Mass/Vol] 12.4 g/dL Normal 12.0-16.0 [facility] Comment on above: Performed By: #### C BC #### [facility] [address] [place] [address] Dr. Kalyn Gutierrez IG # 0.02 10e3/ul Normal 0.00-0.03 [facility] Comment on above: Performed By: #### C BC #### [facility] [address] [place] [address] Dr. Kalyn Gutierrez IG % 0.3 % Normal 0.0-0.5 [facility] Comment on above: Performed By: #### C BC #### [facility] [address] [place] [address] Dr. Kalyn Gutierrez LYMPH # 1.8 103/ul Normal 1.2-3.8 [facility] Comment on above: Performed By: #### C BC #### [facility] [address] [place] [address] Dr. Kalyn Gutierrez Lymphocytes/100 WBC (Bld) 25.0 % Normal 20.5-60.0 [facility] Comment on above: Performed By: #### C BC #### [facility] [address] [place] [address] Dr. Kalyn Gutierrez MANUAL DIFF REQ NO Normal [facility] Comment on above: Performed By: #### C BC #### [facility] [address] [place] [address] Dr. Kalyn Gutierrez MCH (RBC) [Entitic mass] 28.2 pg Normal 26.7-34.0 [facility] Comment on above: Performed By: #### C BC #### [facility] [address] [place] [address] Dr. Kalyn Gutierrez MCHC (RBC) [Mass/Vol] 32.0 g/dL Normal 29.9-35.2 [facility] Comment on above: Performed By: #### C BC #### [facility] [address] [place] [address] Dr. Kalyn Gutierrez MCV (RBC) [Entitic vol] 88.4 fL Normal 81.0-99.0 [facility] Comment on above: Performed By: #### C BC #### [facility] [address] [place] [address] Dr. Kalyn Gutierrez MONO # 0.6 103/ul Normal 0.3-0.8 [facility] Comment on above: Performed By: #### C BC #### [facility] [address] [place] [address] Dr. Kalyn Gutierrez Monocytes/100 WBC (Bld) 8.7 % Normal 1.7-12.0 [facility] Comment on above: Performed By: #### C BC #### [facility] [address] [place] [address] Dr. Kalyn Gutierrez NEUT # 4.8 103/ul Normal 1.4-6.5 [facility] Comment on above: Performed By: #### C BC #### [facility] [address] [place] [address] Dr. Kalyn Gutierrez Neutrophils/100 WBC (Bld) 65.6 % Normal 43.0-75.0 [facility] Comment on above: Performed By: #### C BC #### [facility] [address] [place] [address] Dr. Kalyn Gutierrez Platelet mean volume (Bld) [Entitic vol] 12.3 fL Normal 9.5-13.5 [facility] Comment on above: Performed By: #### C BC #### [facility] [address] [place] [address] Dr. Kalyn Gutierrez PLT 183 103/ul Normal 150-450 [facility] Comment on above: Performed By: #### C BC #### [facility] [address] [place] [address] Dr. Kalyn Gutierrez RBC 4.39 106/ul Normal 4.20-5.40 [facility] Comment on above: Performed By: #### C BC #### [facility] [address] [place] [address] Dr. Kalyn Gutierrez WBC 7.3 103/ul Normal 4.0-11.0 [facility] Comment on above: Performed By: #### C BC #### [facility] [address] [place] [address] Dr. Kalyn Gutierrez PREG QUANT HCGon 07-12-2021 HCG QUANT <1 Normal [facility] Comment on above: Performed By: #### P REGQNT #### [facility] [address] [place] [address] Dr. Kalyn Gutierrez HCG RANGE SEE BELOW Normal [facility] Comment on above: Result Comment: 5-50 0-1 WEEK 40-300 1-2 WEEKS 100-1,000 2-3 WEEKS 500-6,000 3-4 WEEKS 5,000-200,000 1-2 MONTHS 10,000-100,000 2-3 MONTHS 3,000-50,000 2ND TRIMESTER 1,000-50,000 3RD TRIMESTER Performed By: #### P REGQNT #### [facility] [address] [place] [address] Dr. Kalyn Gutierrez US PELVIS AND TRANSVAGon [...] by: NOEMI KRISHNA Date: 2021-06-22 09:10 Normal [facility] DIGITAL DIAG MAMM BILAT WITH TOMOon 06-21-2021 DIGITAL DIAG MAMM BILAT WITH SUSANA Patient Name: MICHAEL WELLER STUDY: DIGITAL DIAG MAMM BILAT WITH SUSANA; BREAST ULTRASOUND; 06/21/2021 3:05 pm; 06/21/2021 3:31 pm ACCESSION NUMBER(S): [id number]; [id number] ORDERING CLINICIAN: RAFAELA ARGUELLO INDICATION: Right breast [...] 3.2 x 1.7 x 3.1 cm in savnaa posterior, craniocaudal and transverse dimension. On the prior mammogram from 2019 the mass measures approximately 3.1 x 1.2 x 2.5 cm. No suspicious masses or calcifications are identified. ULTRASOUND: Targeted right breast ultrasound was performed by a registered plan manager utilizing elastography. The irregular hypoechoic parallel mass [...] any future breast imaging appointments, please call [phone] ([phone]). Patient letter sent SAAPPR Electronically signed by: MOHAN ROMANO MD [facility] IO UA (automated w/o microsc opy)on 06-21-2021 Protein (U) [Mass/Vol] Negative [facility] Work Phone: IO UA (automated w/o microscopy) Negative [facility] Work Phone: IO UA (automated w/o microscopy) Normal (0.2-1.0 mg/dl) [facility] Work Phone: IO UA (automated w/o microscopy) 6.[address] [facility] Work Phone: IO UA (automated w/o microscopy) 1.[address] [facility] Work Phone: IO UA (automated w/o microscopy) Clear [facility] Work Phone: IO UA (automated w/o microscopy) Yellow [facility] Work Phone: IO Ultrasound, measurement p ost-void resid urine and/or bl cap; no imagon 06-21-2021 IO Ultrasound, measurement post-void resid urine and/or bl cap; no imag [address] [facility] Work Phone: Radiologyon 06-21-2021 MG Breast Diagnostic Please click on the link to view the study images Normal [facility] Work Phone: MG Breast Diagnostic Normal MP-W SPC-Westla ke 200 Work Phone: Tobacco Screening.on 022 Fall risk assessment a) No falls within the last year [facility] Work Phone: Tobacco use status CPHS b) No [facility] Work Phone: ULTRASOUND LIMITED BREASTon 06-21-2021 ULTRASOUND LIMITED BREAST Patient Name: MICHAEL WELLER STUDY: DIGITAL DIAG MAMM BILAT WITH SUSANA; BREAST ULTRASOUND; 06/21/2021 3:05 pm; 06/21/2021 3:31 pm ACCESSION NUMBER(S): [id number]; [id number] ORDERING CLINICIAN: RAFAELA ARGUELLO INDICATION: Right breast [...] breast ultrasound was performed by a registered plan manager utilizing elastography. The irregular hypoechoic parallel mass [...] any future breast imaging appointments, please call [phone] ([phone]). Patient letter sent SAAPPR Electronically signed by: MOHAN ROMANO MD Normal [facility] Ultrasound Limited Breaston 06-21-2021 MG Breast Screening Normal MP-WS PC-Westla [address] Work Phone: IO UA (automated w/o microsc opy)on 06-04-2021 Protein (U) [Mass/Vol] Negative QM-HCNV-Nltzdt ke [address] Work Phone: IO UA (automated w/o microscopy) Negative RD-MOLX-Yeymso ke [address] Work Phone: IO UA (automated w/o microscopy) Normal HW-QGGU-Jzpztp ke [address] Work Phone: IO UA (automated w/o microscopy) 7.0 1 XT-SMQL-Xowghx ke [address] Work Phone: IO UA (automated w/o microscopy) 1.020 1 YM-VTQJ-Oeydsy ke [address] Work Phone: IO UA (automated w/o microscopy) Clear SK-NPQV-Efdsoq ke [address] Work Phone: IO UA (automated w/o microscopy) Yellow IK-NVLQ-Sqbggi ke 200 Work Phone: Tobacco Screening.on 022 Adult depression screening assessment No MP-WSPC-Luiz tla ke [address] Work Phone: Fall risk assessment a) No falls within the last year LJ-KHYO-Ewytwf ke [address] Work Phone: Last menstrual period start date 14May2021 EL-IBKD-Jkvpzh ke 200 Work Phone: Tobacco use status CPHS b) No PC-HLFN-Qhkoyq ke 200 Work Phone: PAP ACOG PANEL 2: 30 to 65on 03-28-2021 . . Normal [facility] Comment on above: Result Comment: Perf ormed at: WB Performed By: #### [id number] #### [facility] [address] [place] [address] [address] Kalyn Gutierrez Age Gdln ACOG Testing 30-65 [facility] Comment on above: Performed By: #### [id number] #### [facility] [address] [address] [address] Kalyn Gutierrez DIAGNOSIS: Comment Normal [facility] Comment on above: Result Comment: NEGA TIVE FOR INTRAEPITHELIAL LESION OR MALIGNANCY. Performed at: WB Performed By: #### [id number] #### [facility] [address] [place] [address] Dr. Kalyn Gutierrez HPV Aptima Negative Normal Negative [facility] Comment on above: Result Comment: This nucleic acid amplification test detects fourteen high-risk HPV types (16,18,31,33,35,39,45,51,52,56,58,59,66,68) without differentiation. Performed at: =G Performed By: #### [id number] #### [facility] [address] [place] [address] Dr. Kalyn Gutierrez Methodology: Comment [facility] Comment on above: Result Comment: This liquid based ThinPrep(R) pap test was screened with the use of an image guided system. Performed at: WB Performed By: #### [id number] #### [facility] [address] [place] [address] Dr. Kalyn Gutierrez Note: Comment [facility] Comment on above: Result Comment: The Pap smear is a screening test designed to aid in the detection of premalignant and malignant conditions of the uterine cervix. It is not a diagnostic procedure and should not be used as the sole means of detecting cervical cancer. Both false-positive and false-negative reports do occur. . Performed at: WB Performed By: #### [id number] #### [facility] [address] [address] [address] Kalyn Gutierrez Performed by: Comment Normal [facility] Comment on above: Result Comment: Tawyna Del Rio, Tower Observer (ASCP) Performed at: WB Performed By: #### [id number] #### [facility] [address] [address] [address] Kalyn Gutierrez Specimen adequacy: Comment Normal [facility] Comment on above: Result Comment: Sati sfactory for evaluation. Endocervical and/or squamous metaplastic cells (endocervical component) are present. Performed at: WB Performed By: #### [id number] #### [facility] [address] [place], [place] [address] Dr. Kalyn Gutierrez Vital Signs Date Time Vital Sign Value Performing Clinician Facility 01-05-2024 11:51-0400 Body mass index (BMI) [Ratio] 30.45 kg/m2 Maryann Davison Work Phone: 4(018)[phone] [place] [address] 01-05-2024 11:51-0400 Body temperature 98.2 [degF] Maryann Davison Work Phone: [phone])[phone] [place] [address] 01-05-2024 11:51-0400 Body weight 83.01 kg Maryann Davison Work Phone: 4(716)[phone] [place] [address] 01-05-2024 11:51-0400 Diastolic blood pressure 76 mm[Hg] Maryann Davison Work Phone: 0(267)[phone] [place] [address] 01-05-2024 11:51-0400 Heart rate 74 /min Maryann Elvis Work Phone: 9(171)[phone] [place] [address] 01-05-2024 11:51-0400 Respiratory rate 18 /min Maryanncipriano Davison Work Phone: 3(766)[phone] [place] [address] 01-05-2024 11:51-0400 SaO2% (BldA) [Mass fraction] 98 % Maryann Davison Work Phone: 1(013)[phone] [place] [address] 01-05-2024 11:51-0400 Systolic blood pressure 119 mm[Hg] Maryann LemusSachin Work Phone: [facility] 09-05-2023 13:24-0400 Body height 165.1 cm [facility] 09-05-2023 13:24-0400 Body mass index (BMI) [Ratio] 29.2 kg/m2 [facility] 09-05-2023 13:24-0400 Body temperature 97.9 [degF] [facility] [place] 09-05-2023 13:24-0400 Body weight 79.83 kg [facility] 09-05-2023 13:24-0400 Diastolic blood pressure 85 mm[Hg] [facility] 09-05-2023 13:24-0400 Heart rate 106 /min [facility] 09-05-2023 13:24-0400 Respiratory rate 18 /min [facility] [place] 09-05-2023 13:24-0400 SaO2% (BldA) [Mass fraction] 96 % [facility] 09-05-2023 13:24-0400 Systolic blood pressure 120 mm[Hg] [facility] 07-22-2023 14:37-0400 Body height 165.1 cm Jhonny Issa MD Work Phone: [facility] 07-22-2023 14:37-0400 Body mass index (BMI) [Ratio] 30.72 kg/m2 Jhonny Issa MD Work Phone: [facility] 07-22-2023 14:37-0400 Body weight 83.73 kg Jhonny Issa MD Work Phone: [facility] 07-22-2023 14:37-0400 Diastolic blood pressure 78 mm[Hg] Jhonny Issa MD Work Phone: [facility] 07-22-2023 14:37-0400 Heart rate 111 /min Jhonny Issa MD Work Phone: [facility] 07-22-2023 14:37-0400 Systolic blood pressure 118 mm[Hg] Jhonny Issa MD Work Phone: [facility] 04-27-2023 15:40-0500 Body height 165.1 cm Jhonny Issa MD Work Phone: [facility] 04-27-2023 15:40-0500 Body mass index (BMI) [Ratio] 34.15 kg/m2 Jhonny Issa MD Work Phone: [facility] 04-27-2023 15:40-0500 Body weight 93.08 kg Jhonny Issa MD Work Phone: [facility] 04-27-2023 15:40-0500 Diastolic blood pressure 60 mm[Hg] Jhonny Issa MD Work Phone: [facility] 04-27-2023 15:40-0500 Heart rate 123 /min Jhonny Issa MD Work Phone: [facility] 04-27-2023 15:40-0500 Respiratory rate 14 /min Jhonny Issa MD Work Phone: [facility] 04-27-2023 15:40-0500 Systolic blood pressure 104 mm[Hg] Jhonny Issa MD Work Phone: [facility] 02-19-2023 10:39-0500 Body height 165.1 cm Jhonny Issa MD Work Phone: [facility] 02-19-2023 10:39-0500 Body mass index (BMI) [Ratio] 36.08 kg/m2 Jhonny Issa MD Work Phone: [facility] 02-19-2023 10:39-0500 Body weight 98.34 kg Jhonny Issa MD Work Phone: [facility] 02-19-2023 10:39-0500 Diastolic blood pressure 83 mm[Hg] Jhonny Issa MD Work Phone: [facility] 02-19-2023 10:39-0500 Heart rate 94 /min Jhonny Issa MD Work Phone: [facility] 02-19-2023 10:39-0500 Systolic blood pressure 117 mm[Hg] Jhonny Issa MD Work Phone: [facility] 07-02-2022 13:20-0400 Body height 165.1 cm Bolivar Sherman Other [facility] Other 07-02-2022 13:20-0400 Body mass index (BMI) [Ratio] 33.28 kg/m2 Bolivar Sherman Other [facility] Other 07-02-2022 13:20-0400 Body weight 90.72 kg Bolivar Sherman Other [facility] Other 07-02-2022 13:20-0400 Diastolic blood pressure 78 mm[Hg] [address] Other [facility] Other 07-02-2022 13:20-0400 Respiratory rate 18 /min Bolivar Sherman Other [facility] Other 07-02-2022 13:20-0400 SaO2% (BldA) [Mass fraction] 99 % [address] Other [facility] Other 07-02-2022 13:20-0400 Systolic blood pressure 117 mm[Hg] [address] Other [place] Other 10-14-2021 15:07-0400 Diastolic blood pressure 98 mm[Hg] Rafaela [facility]guello [facility] Work Phone: 10-14-2021 15:07-0400 Heart rate 103 /min Rafaela Arguello Work Phone: [facility] Work Phone: 10-14-2021 15:07-0400 Systolic blood pressure 132 mm[Hg] Rafaela Arguello Work Phone: [facility] Work Phone: 06-21-2021 08:13-0400 Body height 165.1 cm Rafaela Arguello Work Phone: [facility] Work Phone: 06-21-2021 08:13-0400 Body mass index (BMI) [Ratio] 33.28 kg/m2 Rafaela Arguello Work Phone: [facility] Work Phone: 06-21-2021 08:13-0400 Body surface area Derived from formula 1.98 m2 Rafaela Arguello Work Phone: [facility] Work Phone: 06-21-2021 08:13-0400 Body temperature 97.2 [degF] Rafaela Arguello Work Phone: [facility] Work Phone: 06-21-2021 08:13-0400 Body weight 90.72 kg Rafaela Arguello Work Phone: [facility] Work Phone: 06-21-2021 08:13-0400 Diastolic blood pressure 82 mm[Hg] Rafaela Arguello Work Phone: [facility] Work Phone: 06-21-2021 08:13-0400 Heart rate 89 /min Rafaela Arguello Work Phone: [facility] Work Phone: 06-21-2021 08:13-0400 Systolic blood pressure 115 mm[Hg] Rafaela Arguello Work Phone: [facility] Work Phone: 06-04-2021 13:05-0400 Body height 167.64 cm Rafaela Arguello Work Phone: ZX-DRWL-Kvulclib 200 Work Phone: 06-04-2021 13:05-0400 Body mass index (BMI) [Ratio] 32.77 kg/m2 Rafaela Arguello Work Phone: KN-JBFB-Qztpebrp 200 Work Phone: 06-04-2021 13:05-0400 Body surface area Derived from formula 2.01 m2 Rafaela Arguello Work Phone: AT-VDAP-Jxvwgcrs 200 Work Phone: 06-04-2021 13:05-0400 Body temperature 98.2 [degF] Rafaela Arguello Work Phone: RE-EDPY-Czczgorn 200 Work Phone: 06-04-2021 13:05-0400 Body weight 92.08 kg Rafaelalaron Arguello Work Phone: DF-JEFE-Zarwlibt 200 Work Phone: 06-04-2021 13:05-0400 Diastolic blood pressure 76 mm[Hg] Rafaela Arguello Work Phone: TP-ZFCU-Brviojjb 200 Work Phone: 06-04-2021 13:05-0400 Heart rate 80 /min Rafaela Arguello Work Phone: HB-IBEJ-Iabcuofl 200 Work Phone: 06-04-2021 13:05-0400 Respiratory rate 16 /min Rafaela Arguello Work Phone: SR-MEPW-Gsreelwv 200 Work Phone: 06-04-2021 13:05-0400 Systolic blood pressure 122 mm[Hg] Rafaela Arguello Work Phone: SH-LQVO-Rfmfvkwq 200 Work Phone: 12-07-2019 11:03-0400 BMI (Body Mass Index) 31.95 kg/m2 Rafaelalaron Arguello YW-ASXT-Hnuwujam 200 Work Phone: 12-07-2019 11:03-0400 Body Temperature [...] Phone: 05-16-2019 18:12-0400 Body Temperature 98.3 [degF] Rafaeal Arguello MP-[facility]SP[facility]-[place] [address] [facility] Work Phone: 05-16-2019 18:12-0400 Body weight 91.17 kg Rafaela Arguello MP-[facility]SP[facility]-[place] [address] [facility] Work Phone: 05-16-2019 18:12-0400 BP Diastolic 76 mm[Hg] Rafaela Arguello KY-CWJG-Qdar [address] [facility] Work Phone: 05-16-2019 18:12-0400 BP Systolic 122 mm[Hg] Rafaela Arguello MI-LMBA-Ngwz [address] [facility] Work Phone: 05-16-2019 18:12-0400 BSA (Body Surface Area) 1.98 m2 Rafaela Arguello MP-[facility]SP[facility] [address] [facility] Work Phone: 05-16-2019 18:12-0400 Pulse (Heart Rate) 88 /min Rafaela Arguello VX-AHLL-Ysly [address] [facility] Work Phone: 05-16-2019 18:12-0400 [...] minutes Maryann Davison Work Phone: [facility] Comment on above: Acute lower UTI (Adrianna eulogio Dx); Urine frequency Start: 10-20-2023 End: 10-26-2023 Clinisync Result Encounter Matt Daya DO Work Phone: [facility] External [facility] Unsolicited Start: 10-20-2023 End: 10-26-2023 Clinisync Result Encounter Matt Daya DO Work Phone: [facility] External Department Unsolicited Start: 10-20-2023 End: 10-20-2023 ambulatory MATT DAYA Not Available Start: 09-05-2023 End: 09-05-2023 Departed Referred EMPLOYEE BENEFITS ATTORNEY Swetha Andersen Work Phone: [facility] 250 Start: 09-05-2023 End: 09-05-2023 ambulatory PHYSICIAN [facility] Work Phone: Start: 09-05-2023 End: 09-05-2023 Patient encounter procedure [facility] Amandeep Work Phone: Start: 09-01-2023 End: 09-01-2023 ambulatory ROULA BLEDSOE Facility:[facility] Start: 09-01-2023 End: 09-01-2023 Patient encounter procedure Roula Bledsoe EMPLOYEE BENEFITS ATTORNEY.COSMETIC MANAGER Work Phone: [facility] [place] Comment on above: Dermatofibroma (Prim ottoniel Dx); Lentigines; Multiple benign nevi; Valles angioma; Hx of malignant melanoma Start: 07-22-2023 End: 07-22-2023 ambulatory [facility] Ambulatory Start: 07-22-2023 End: 07-22-2023 Office outpatient visit 25 minutes Jhonny Issa MD Work Phone: [facility] Comment on above: Encephalopathy (Prim ottoniel Dx); Attention deficit hyperactivity disorder (ADHD), predominantly inattentive type; Insomnia due to medical condition; Anxiety Start: 07-02-2023 End: 07-02-2023 ambulatory MATT STAPLETON Not Available Start: 04-27-2023 End: 04-27-2023 ambulatory [facility] Ambulatory Start: 04-27-2023 End: 04-27-2023 Office outpatient visit 25 minutes Jhonny Issa MD Work Phone: [facility] Comment on above: Encephalopathy (Prim ottoniel Dx); Attention deficit hyperactivity disorder (ADHD), predominantly inattentive type; Insomnia due to medical condition; Anxiety Start: 03-04-2023 End: 03-04-2023 ambulatory [place] Cipriano [facility] Ambulatory Start: 03-04-2023 End: 03-04-2023 Office outpatient visit 15 minutes Karolina Man Work Phone: [facility] Comment on above: Anxiety Start: 02-19-2023 End: 02-19-2023 ambulatory [facility] Ambulatory Start: 02-19-2023 End: 02-19-2023 Office outpatient new 60 minutes Jhonny Issa MD Work Phone: [facility] Comment on above: Encephalopathy (Prim ottoniel Dx); Anxiety; Attention deficit hyperactivity disorder (ADHD), predominantly inattentive type Start: 12-19-2022 End: 12-19-2022 Subsequent hospital visit by physician [place] [facility] [place] on above: Lump in female breas t Start: 12-19-2022 End: 12-19-2022 ambulatory KAROLINA Cota [facility] Start: 12-19-2022 End: 12-19-2022 ambulatory KAROLINA Cota [facility] Start: 12-19-2022 End: 12-19-2022 Subsequent hospital visit by physician [place] [facility] [place] on above: Abnormal mammogram Start: 12-03-2022 End: 12-03-2022 ambulatory [place] Cipriano [facility] Ambulatory Start: 10-16-[address] Work Phone: [facility] Work Phone: Start: 07-02-2022 Office outpatient vi sit 25 minutes Bolivar Sherman [facility] [address] Start: 07-02-2022 End: 07-02-2022 ambulatory DO Danielle Infante Work Phone: [facility] Work Phone: Start: 07-02-2022 End: 07-02-2022 Patient encounter procedure DO Danielle Infante Work Phone: [facility] 250 Start: 04-14-2022 Rx Renewal [address]a Sanabria [address] Work Phone: QG-SYNO-Sycnosei 200 Work Phone: Start: 03-17-2022 Rx Renewal Rafaela Sanabria rd Work Phone: RA-IJPU-Nqvdzmuk 200 Work Phone: Start: 02-10-2022 ambulatory Ms. Rafaela hyatt Hema Facility:[id number] Start: 02-10-2022 Office outpatient vi sit 25 minutes Rafaela Arguello Work Phone: SH-GOGI-Lbewcnxp 200 Work Phone: Start: 10-30-2021 Rx Renewal Rafaela Sanabria rd Work Phone: ZP-BULX-Qpztfhjc 200 Work Phone: Start: 10-17-2021 End: 10-17-2021 Patient encounter procedure Roula Ayesha TILLMAN.COSMETIC MANAGER Work Phone: [facility] [place] Comment on above: Lentigines (Primary Dx); Multiple benign nevi; Valles angioma; Exposure to tanning bed, sequela; Hx of malignant melanoma; Dermatofibroma Start: 10-14-2021 Office consultation new/estab patient 60 min Rafaela Arguello Work Phone: [employer] [facility] Work Phone: Start: 10-14-2021 Patient encounter procedure Rafaela Arguello Work Phone: [facility] Work Phone: Start: 10-08-2021 Office outpatient vi sit 25 minutes Rafaela Shira Hema Work Phone: JN-LRTH-Ladzvjsz 200 Work Phone: Start: 10-08-2021 ambulatory Ms. Rafaela Arguello Facility:[id number] Start: 10-07-2021 End: 10-07-2021 Departed Referred DO Danielle Infante Work Phone: [facility] Start: 10-02-2021 Rx Renewal Rafaela Sanabria rd Work Phone: TK-MJAI-Uendudht 200 Work Phone: Start: 09-06-2021 Patient encounter procedure Rafaela Shira Hema Work Phone: [facility] Work Phone: Start: 09-06-2021 ambulatory Ms. Rafaela Arguello Facility:[id number] Start: 07-12-2021 End: 07-12-[address] SHASHANK BARAJAS Facility:H1 Start: 07-11-2021 Encounter for preprocedural cardiovascular examination DR MATT STAPLETON [facility] Start: 07-10-2021 End: 07-11-[address] MATT STAPLETON Facility:H1 Start: 07-10-2021 End: 07-11-2021 Encounter for preprocedural cardiovascular examination DR MATT STAPLETON Facility:H1 Start: 07-09-[address] MATT STAPLETON Facility :H1 Start: 07-01-[address] Work Phone: WX-PVCX-Hrsypslt 200 Work Phone: Start: 06-28-2021 Chart Update Rafaela Sanabria rd Work Phone: WP-BEYE-Dvdcjaco 200 Work Phone: Start: 06-27-[address] Work Phone: XJ-IVJO-Xzkgjqme 200 Work Phone: Start: 06-21-2021 End: 06-22-[address] MATT STAPLETON Facility:H1 Start: 06-04-2021 Office outpatient vi sit 25 minutes Rafaela E Hema Work Phone: JT-LAMG-Ymmzyxmc 200 Work Phone: Start: 06-04-2021 Patient encounter procedure Rafaela Arguello Work Phone: FK-RTYN-Cskyesga 200 Work Phone: Start: 06-04-2021 ambulatory Ms. Rafaela Arguello Facility:[id number] Start: 03-25-2021 End: 03-25-[address] MATT STAPLETON Facility:H1 Start: 12-07-2019 Patient encounter procedure Rafaela Arguello FX-COPJ-Fzwmtohd 200 Work Phone: Start: 05-16-2019 Patient encounter procedure Rafaela Arguello RI-FKEA-Fmpz [facility] [facility] Work Phone: Start: 09-27-2018 Patient encounter procedure Rafaela Arguello EC-KAXQ-Psxy [address] [facility] Work Phone: Start: 09-14-2018 Patient encounter procedure Rafaela Arguello BO-FHUX-Dzzn [address] [facility] Work Phone: Start: 07-17-2017 Patient encounter procedure Rafaela Arguello RG-APUW-Rgvy [address] [facility] Work Phone: Procedures Date [...] Surgery Rafaela Arguello Hyperlipidemia screening Tho mas [place] Other Procedure on back Rafaela yehfan Work Phone: Removal of suture Bolivar For anabell Other Tonsillectomy Rafaela Arguello Total replacement of hip Keaton laron Arguello Plan of Treatment Date Care Activity Detail Author Start: 10-26-2037 Zoster Vaccines (1 o f 2) Zoster Vaccines (1 of 2) [facility] Start: 10-19-2028 Screening for malignant neoplasm of cervix [facility] Start: 10-18-2027 Screening for malignant neoplasm of cervix [facility] Start: 10-19-2026 Screening for malignant neoplasm of cervix [facility] Start: 10-17-2025 Screening for malignant neoplasm of cervix [facility] Start: 04-23-2025 Lipid panel Lipid Panel [facility] Start: 10-26-2024 End: 10-26-2024 Patient encounter procedure 10/26/2024 4:00 PM EDT Office Visit [facility] [address] [facility] [place] [id number] Matt Stapleton, [address] [place] [address] [facility] Start: 03-25-2024 Screening for malignant neoplasm of cervix [facility] Start: 03-16-2024 End: 03-16-2024 Patient encounter procedure 03/16/2024 3:30 PM EST Routine [facility] [address] [place] [id number] Matt Stapleton, [address] [place], [place] [id number] [facility] Start: 02-16-2024 End: 02-15-2025 ABO/Rh ABO/Rh Lab Routine Missed menses , unspecified gestational age Expected: 02/16/2024 (Approximate), Expires: 02/15/2025 [facility] Comment on above: Expected: 02/16/2024 (Approximate), [...] AM EST Initial [facility] [address] [facility] [address] [facility] Start: 02-16-2024 End: 02-16-2024 Professional / ancillary services management 02/16/2024 8:00 AM EST Ancillary Procedure [facility] [address] [facility] [place] [address] [address] [facility] Start: 11-08-2023 COVID-19 Vaccine ( season) COVID-19 Vaccine ( season) [facility] Start: 11-08-2023 Influenza vaccination [facility] Start: 10-14-2023 End: 10-14-2023 Patient encounter procedure 10/14/2023 3:15 PM EDT Office Visit [facility] [address] [place] [id number] Jhonny Issa MD [address] [facility], [address] [place] [address] [facility] Start: 09-05-2023 Bacteria identified in Urine by Culture [facility] Start: 07-22-2023 End: 07-22-2023 Patient encounter procedure 07/22/2023 3:15 PM EDT Office Visit [facility] [address] [place] [phone] Jhonny Issa MD [address] [facility], [address] [place], [place] [id number] [facility] Start: 04-27-2023 End: 04-27-2023 Patient encounter procedure 04/27/2023 3:15 PM EST Office Visit [facility] [address] [phone] Jhonny Issa MD [address] [facility], [address] [place], [place] [id number] [facility] Start: 03-09-2023 Behavioral Health Screening Behavioral Health Screening [facility] Start: 03-04-2023 End: 03-04-2023 Patient encounter procedure 03/04/2023 8:40 AM EST Office Visit [facility] [address] [address] [place] [address] [address] [facility] Start: 02-19-2023 End: 02-20-2024 Drugs of abuse screen W Reflex confirm panel - Urine [facility] Service Area Work Phone: Comment on above: Expected: 02/19/2023 (Approximate), Expires: 02/20/2024 Start: 02-19-2023 End: 02-19-2023 Patient encounter procedure 02/19/2023 10:15 AM EST Office Visit [facility] [address] [facility] [place] [address] Jhonny Issa MD [address] [facility], [place] [address] [place] [address] [facility] Start: 11-07-2022 COVID-19 Vaccine ( season) COVID-19 Vaccine () [facility] Start: 11-07-2022 Influenza vaccination Influenza Vacc ine (#1) [facility] Start: 01-21-2022 FUV, Provider: Luz Aguilar, Status: Pen, Time: 3:40 PM FUV, Provider: Luz Aguilar, Status: Pen, Time: 3:40 PM [id number]-Jpnmngeo 200 Work Phone: Start: 01-20-2022 [id number], Provider: Bisi Prabhakar, Status: Pen, Time: 5:00 PM [id number], Provider: Bisi Prabhakar, Status: Pen, Time: 5:00 PM [facility] Work Phone: Start: 01-13-2022 [id number], Provider: Bisi Prabhakar, Status: Pen, Time: 5:00 PM [id number], Provider: Bisi Prabhakar, Status: Pen, Time: 5:00 PM [facility] Work Phone: Start: 01-08-2022 [id number], Provider: Bsii Prabhakar, Status: Pen, Time: 4:00 PM [id number], Provider: Bisi Prabhakar, Status: Pen, Time: 4:00 PM [facility] Work Phone: Start: 01-01-2022 [id number], Provider: Bisi Prabhakar, Status: Pen, Time: 4:00 PM [id number], Provider: Bisi Prabhakar, Status: Pen, Time: 4:00 PM [facility] Work Phone: Start: 12-25-2021 [id number], Provider: Bisi Prabhakar, Status: Pen, Time: 4:00 PM [id number], Provider: Bisi Prabhakar, Status: Pen, Time: 4:00 PM [facility] Work Phone: Start: 12-17-2021 [id number], Provider: Bisi Prabhakar, Status: Pen, Time: 5:00 PM [id number], Provider: Bisi Prabhakar, Status: Pen, Time: 5:00 PM [facility] Work Phone: Start: 11-07-2021 Influenza vaccination INFLUENZA (#1) [facility] Start: 10-16-2021 NPV, Provider: Nafisa Bermudez, Status: Pen, Time: 1:00 PM NPV, Provider: Nafisa Bermudez, Status: Pen, Time: 1:00 PM MQ-TBIN-Ankjhcck 200 Work Phone: Start: 10-08-2021 VIRFUVHOME, Provider : Rafaela Arguello, Status: Pen, Time: 11:40 AM VIRFUVHOME, Provider: Rafaela Arguello, Status: Pen, Time: 11:40 AM KV-ZWLJ-Wgnjuxyo 200 Work Phone: Start: 09-30-2021 FUV, Provider: Luz Aguilar, Status: Pen, Time: 1:40 PM FUV, Provider: Luz Aguilar, Status: Pen, Time: 1:40 PM [facility] Work Phone: Start: 09-18-2021 [id number], Provider: Bisi Prabhakar, Status: Pen, Time: 10:00 AM [id number], Provider: Bisi Prabhakar, Status: Pen, Time: 10:00 AM [facility] Work Phone: Start: 09-06-2021 [id number], Provider: Bisi Prabhakar, Status: Pen, Time: 8:00 AM [id number], Provider: Bisi Prabhakar, Status: Pen, Time: 8:[address] [facility] Work Phone: Start: 08-02-2021 FUV, Provider: Luz Aguilar, Status: Pen, Time: 8:20 AM FUV, Provider: Luz Aguilar, Status: Pen, Time: 8:[address] [facility] Work Phone: Start: 06-21-2021 NPV, Provider: Luz Aguilar, Status: Pen, Time: 8:00 AM NPV, Provider: Luz Aguilar, Status: Pen, Time: 8:[address] [facility] Work Phone: Start: 03-27-2021 COVID-19 VACCINE (3 - Booster for Pfizer series) COVID-19 VACCINE (3 - Booster for Pfizer series) [facility] Start: 12-20-2020 COVID-19 Vaccine (3 - Pfizer series) COVID-19 Vaccine (3 - Pfizer series) [facility] Start: 01-09-2020 FFD mammogram Breast screening Mamm - Ultrasound of Breast [place] [address] Work Phone: Start: 10-26-2017 HPV TESTING HPV TESTING [facility] Start: 10-26-2009 DTaP/Tdap/Td Vaccine s (1 - Tdap) DTaP/Tdap/Td Vaccines (1 - Tdap) [facility] Start: 10-26-2008 PAP TESTING PAP TESTING [facility] Start: 10-26-2008 Screening for malignant neoplasm of cervix [facility] Start: 10-26-2006 Hepatitis B Vaccine (1 of 3 - 19+ 3-dose series) Hepatitis B Vaccine (1 of 3 - 19+ 3-dose series) [facility] Start: 10-26-2006 Hepatitis B Vaccines (1 of 3 - 19+ 3-dose series) Hepatitis B Vaccines (1 of 3 - 19+ 3-dose series) [facility] Start: 10-26-2006 Urine microalbumin profile [facility] Start: 10-26-2005 HEPATITIS C SCREENING HEPATITIS C [facility] Start: 10-26-2005 Hepatitis C screening Hepatitis C [facility] Start: 10-26-2005 HIV SCREENING HIV SCREENING [facility] Start: 10-26-2005 HIV screening [facility] Start: 10-26-2000 Varicella vaccination Varicell a Vaccines (1 of 2 - 13+ 2-dose series) [facility] Start: 1999 Adult depression screening assessment DEPRESSION SCREENING [facility] Start: 10-26-1988 MMR Vaccines (1 of 1 - Standard series) MMR Vaccines (1 of 1 - Standard series) [facility] Start: 10-26-1988 Varicella vaccination Varicell a Vaccines (1 of 2 - 2-dose childhood series) [facility] Start: 1987 HEPATITIS B (1 of 3 - 3-dose series) HEPATITIS B (1 of 3 - 3-dose series) [facility] Start: 1987 Hepatitis B Vaccines (1 of 3 - 3-dose series) Hepatitis B Vaccines (1 of 3 - 3-dose series) [facility] Start: 1987 HIV screening HIV Screening [facility] Start: 1987 Yearly Adult Physical Yearly Adult P hysical [facility] Bacteria identified in Urine by Culture Urine culture Microbiology Routine Missed menses Ordered: 02/16/2024 [facility] Comment on above: Ordered: 02/16/2024 CBC W Auto Differential panel - Blood CBC and differential Lab Routine Missed menses , unspecified gestational age Ordered: 02/16/2024 [facility] Comment on above: Ordered: 02/16/2024 Hemoglobin A1c/Hemoglobin.total in Blood Hemoglobin A1c Lab Routine Missed menses , unspecified gestational age Ordered: 02/16/2024 [facility] Comment on above: Ordered: 02/16/2024 Hepatitis B virus surface Ag [Presence] in Serum or Plasma by Immunoassay Hepatitis B surface antigen Lab Routine Missed menses , unspecified gestational age Ordered: 02/16/2024 [facility] Comment on above: Ordered: 02/16/2024 Hepatitis C virus Ab [Presence] in Serum or Plasma by Immunoassay Hepatitis C antibody Lab Routine Missed menses , unspecified gestational age Ordered: 02/16/2024 [facility] Comment on above: Ordered: 02/16/2024 HIV-1/HIV-2 antigen/antibody combination immunoassay HIV-1 and HIV-2 antibodies Lab Routine Missed menses , unspecified gestational age Ordered: 02/16/2024 [facility] Comment on above: Ordered: 02/16/2024 Reagin Ab [Presence] in Serum by RPR RPR Lab Routine Missed menses , unspecified gestational age Ordered: 02/16/2024 [facility] Comment on above: Ordered: 02/16/2024 Rubella antibody, IgG Rubella an tibody, IgG Lab Routine Missed menses , unspecified gestational age Ordered: 02/16/2024 [facility] Comment on above: Ordered: 02/16/2024 TC-JMUW-Jjpylke e 200 Work Phone: NEGATED: Highlighted row has been ruled out! Planned Goals not documented SB-BYCB-Kuvnntmu 200 Work Phone: Immunizations Immunization Date Immunization Notes Care Provider Elina flores 10-25-2020 Pfizer-BioNTech COVI D-19 Vacc 30 MCG/0.3ML Intramuscular Suspension Rafaela Arguello Work Phone: WM-RHMQ-Rruwgojv 200 Work Phone: 10-04-2020 Pfizer-BioNTech COVI D-19 Vacc 30 MCG/0.3ML Intramuscular Suspension Rafaela Arguello Work Phone: QZ-IZXN-Vwknkspn 200 Work Phone: Payers Date Payer Category Payer Self-pay [id number] [id number] 2022 Managed Care ([facility]) [facility] [id number] 2022 Private Health Insurance [employer] [id number] 2020 Unknown 1987 Unknown [id number] 2.16840.1.862123.3.579.2. 593 1987 Unknown [id number] 2.16840.1.196774.3.579.2. 593 1987 Unknown [id number] 2.16840.1.165740.3.579.2. 593 1987 Unknown [id number] 2.16840.1.749539.3.579.2. 593 1987 Unknown [id number] 2.16840.1.196848.3.579.2. 593 1987 Unknown [id number] 2.16.840.1.204914.3.579.2. 356 1987 Unknown [id number] 2.16840.1.911498.3.579.2. 356 1987 Unknown [id number] 2.16.840.1.069691.3.579.2. 356 1987 Unknown [id number] 2.16840.1.181026.3.579.2. 356 1987 Unknown [id number] 2.16.840.1.337907.3.579.2. 356 1987 Unknown [id number] 2.16.840.1.444542.3.579.2. 1244 1987 Unknown [id number] 2.16.840.1.061201.3.579.2. 1244 1987 Unknown [id number] 2.16.840.1.784200.3.579.2. 1244 1987 Unknown [id number] 2.16.840.1.146936.3.579.2. 1244 1987 Unknown [id number] 2.16.840.1.538197.3.579.2. 1244 1987 Unknown [id number] 2.16.840.1.515763.3.579.2. 1243 1987 Unknown [id number] 2.16.840.1.137086.3.579.2. 1243 1987 Unknown [id number] 2.16.840.1.466710.3.579.2. 1243 1987 Unknown [id number] 2.16.840.1.061452.3.579.2. 9 1987 Unknown [id number] 2.16.840.1.279365.3.579.2. 9 1987 Unknown [id number] 2.16.840.1.276581.3.579.2. 1259 1959 Unknown [id number] Unknown [id number] 2.16.840.1.111404.3.579.2. 531 Social History Date Type Detail Facility Assertion Tobacco smoking consumption unknown (finding) [facility] [address] [facility] Work Phone: Start: 12-03-2022 End: 07-22-2023 Non-smoker Non-smoker [facility] Start: 02-19-2023 End: 09-05-2023 Tobacco smoking status NHIS Never smoked tobacco [facility] Start: 10-17-2021 End: 09-01-2023 Alcohol intake Current drinker of alcohol (finding) [facility] Start: 05-14-2010 History SDOH Alcohol Comment occasional [facility] Start: 1985 Sex Assigned At Not on file [facility] Start: 1985 Sex Assigned At Female F [facility] Start: 12-03-2022 End: 07-22-2023 Sex Assigned At [facility] Tobacco smoking stat us NHIS Tobacco smoking consumption unknown [facility] Start: 12-09-2022 End: 01-05-2024 Exposure to SARS-CoV-2 (event) Not sure [facility] Start: 02-19-2023 Tobacco use and exposure Smokeless tobacco non-user [facility] Work Phone: Start: 02-19-2023 End: 01-05-2024 Alcohol intake Defer [facility] Work Phone: National Score (1-100), lower number is lower risk 52 [facility] Start: 01-09-2024 [facility] Functional Status Date Assessment Result Facility NEGATED: Highlighted row Functional performance Functional status health issues are not documented Disease [id number] Work Phone: Mental Status Date Assessment Result Facility NEGATED: Highlighted row Cognitive function [Interpretation] Cognitive status health issues are not documented Disease UV[facility]IHAZ[facility] Work Phone: Clinical Notes 03-04-2012 to 02-16-2024 Cathy Dick LPN - 02/16/2024 8:30 AM Renuka Davison - 01/05/2024 11:45 AM EDTPatient Roual Kaplan APRN.CNP - 09/01/2023 11:20 AM EDT [...] or undercooked meat, and stay away from formerly [facility]. Patient has also been advised to not [...] Cathy Dick LPN documented in this encounter [facility] 01-05-2024 History of Present illness Narrative Subjective [...] Ketones, Urine NEGATIVE NEGATIVE mg/dl POC Specific [place], Urine 1.010 1.005 - 1.035 POC Blood, [...] pyelonephritis, Macrobid prescribed. She will take Azo [id number], acetaminophen, fluids, etc. Follow-up as needed. Patient [...] Davison 12:46 PM documented in this encounter [facility] Work Phone: 01-05-2024 Instructions Maryann Choudhuryselinatiff - 01/05/2024 11:45 AM EDT No signs of acute pyelonephritis, Macrobid prescribed. She will take Azo [id number]-[id number], acetaminophen, fluids, etc. Follow-up as needed. Patient declined urine culture after counseling. documented in this encounter [facility] Work Phone: 09-01-2023 Note HNO ID: [id number] Author: ROULA BLEDSOE APRN.COSMETIC MANAGER Service: ? Author Type: Nurse Practitioner Type: [...] Past Histories independently gathered by the clinical senior technical support analyst and the remaining scribed note accurately describes my personal service to the patient. Roula Bledsoe APRN.COSMETIC MANAGER September 01, 2023 11:26 AM Medical Decision Making: Problems: Moderate: 2+ stable chronic illnesses Risk: Low: Low risk from testing/treatment Medical Decision Making Level: 3 - Low [facility] 09-01-2023 History of Present illness Narrative [...] Past Histories independently gathered by the clinical senior technical support analyst and the remaining scribed note accurately describes my personal service to the patient. Roula Bledsoe APRN.CNP September 01, 2023 11:26 AM Medical Decision Making: Problems: Moderate: 2+ stable chronic illnesses Risk: Low: Low risk from testing/treatment Medical Decision Making Level: 3 - Low documented in this encounter [facility] 07-22-2023 History of Present illness Narrative [...] 07/22/2023 3:01 PM documented in this encounter [facility] Work Phone: 04-27-2023 History of Present illness [...] 04/27/2023 4:18 PM documented in this encounter [facility] Work Phone: 03-04-2023 History of Present illness [...] Karolina Man DO documented in this encounter [facility] Work Phone: 02-19-2023 History of Present illness Narrative Michael Weller 37 y.o. SUBJECTIVE HPI Michael 37-year-old young lady who was seen today for evaluation of a possible attention deficit disorder difficulty at work at home. 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 Signatures Electronically signed by : Bisi Prabhakar PT [facility]; Oct 16 2022 10:12AM EST (Author) [facility] Evaluation note Encounter Date Diagnosis Assessment [...] no improvement of pain. Given return precautions. [facility] Other 12-05-2022 Chief complaint Narrative - Reported* An interactive audio and video telecommunication system which permits real time communications between the patient (at the originating site) and provider (at the distant site) was utilized to providethis telehealth service. * Verbal consent was requested and obtained from MICHAEL WELLRE on this date, 02/10/2022 03:10 PM , for a telehealth visit. * virtual visit to discuss anxiety follow up [facility] [address] Work Phone: 1(320) 528-334708-11-2022 History of Present illness Narrative* Roula Bledsoe, EMPLOYEE BENEFITS ATTORNEY.COSMETIC MANAGER - 10/17/2021 12:40 PM EDT SKIN EXAM [...] Past Histories independently gathered by the clinical senior technical support analyst and the remaining scribed note accurately describes my personal service to the patient. Roula Bledsoe APRN.CNP October 17, 2021 1:05 PM I spent a total of 15 minutes on the date of the service which included preparing to see the patient, hbdu-nz-[id number] patient care, completing clinical documentation, performing a medically appropriate examination, and counseling and educating the patient/family/caregiver. [facility] History of Present illness Narrative* MICHAEL [...] breast biopsy: right breast biopsy 2018 at [facility]- fibroepithelial lesion consistent with fibroadenoma * - breast surgery: no * - breast cancer:no * Menarche: 15 * AFLB: 20 * Menopause: no * HRT:no * Family history: both grandfathers with lung cancer * no history of breast or ovarian cancer [facility] Work Phone: 1(504) 852-979908-08-2022 History of Present illness Narrative* MICHAEL WELLER [...] breast biopsy: right breast biopsy 2018 at [facility]- fibroepithelial lesion consistent with fibroadenoma * - breast surgery: no * - breast cancer:no * Menarche: 15 * AFLB: 20 * Menopause: no * HRT:no * Family history: both grandfathers with lung cancer * no history of breast or ovarian cancer [facility] Work Phone: 1(300) 524-414108-02-2022 Chief complaint Narrative - Reported* An interactive [...] visit to discuss insomnia, trazodone not helping [facility] [address] Work Phone: 1(898) 963-285108-02-2022 Chief complaint Narrative - Reported* An interactive [...] visit to discuss insomnia, trazodone not helping [facility] Work Phone: 1(303) 361-445305-06-2022 NoteThe [place], [place] NAME: MICHAEL WELLER DATE OF : MEDICAL REC#: [id number] CREW LEADER: [address]ORE, TRANSADMIT DATE: 07/12/2021 09:46:00 IRRADIATED FUEL HANDLER DATE: 07/13/2021 21:00 DICTATING PHYSICIAN: MATT STAPLETON DICTATION DATE: 07/12/2021 12:00 OPERATIVE NOTE OPERATION DATE: 07/12/2021 PROCEDURE: Diagnostic laparoscopy. PREOPERATIVE DIAGNOSIS: Dyspareunia. POSTOPERATIVE DIAGNOSIS: Dyspareunia. ANESTHESIA: General. SURGEON: Matt Stapleton D.O. COMMERCIAL INSURANCE UNDERWRITER: CLIFF Durán URINE OUTPUT: Yellow and clear. [...] by: DR MATT STAPLETON . 07/15/2021 15:07:00[facility]12-27-2012 History general Narrative - Reported* Type Description Date Medical History 03-04-12 Pathology Report [facility] Surgical History left hip surgery Surgical History tonsillectomy and adenoidectomy Surgical History cholecystectomy Surgical History wisdom teeth Surgical History tumor [facility] Other Evaluation note* Diagnosis Lentigines- Primary Other dyschromia Multiple benign nevi Benign neoplasm of skin, site unspecified Valles angioma Nevus, non-neoplastic Exposure to tanning bed, sequela Hx of malignant melanoma Personal history of malignant melanoma of skin Dermatofibroma Benign neoplasm of skin, site unspecified [facility] Work Phone: Evaluation note* Diagnosis Abnormal mammogram Abnormal mammogram, unspecified documented in this encounter [facility] Work Phone: Evaluation note* Diagnosis Lump in female breast Lump or mass in breast documented in this encounter [facility] Work Phone: Evaluation note* Diagnosis Encephalopathy- Primary Unspecified encephalopathy Anxiety Anxiety state, unspecified Attention deficit hyperactivity disorder (ADHD), predominantly inattentive type documented in this encounter [facility] Work Phone: Evaluation note* Diagnosis Anxiety Anxiety state, unspecified documented in this encounter [facility] Work Phone: Evaluation note* Diagnosis Encephalopathy- Primary Unspecified encephalopathy Attention deficit hyperactivity disorder (ADHD), 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, unspecified Anxiety Anxiety state, unspecified documented in this encounter [facility] Work Phone: Evaluation note* Diagnosis Dermatofibroma- Primary Benign neoplasm of skin, site unspecified Lentigines Other dyschromia Multiple benign nevi Benign neoplasm of skin, site unspecified Valles angioma Nevus, non-neoplastic Hx of malignant melanoma Personal history of malignant melanoma of skin [facility] Onset Date Resolution Status UTI (urinary tract infection) acute [facility] Work Phone: Evaluation note* Diagnosis Acute lower UTI- Primary Urinary tract infection, site not specified Urine frequency documented in this encounter [facility] Work Phone: Evaluation note* Diagnosis Missed menses [...] area gets bumped. 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 [...] for walks, read books. No regular exercise. [id number] Work Phone: History of Present illness [...] area gets bumped. 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 [...] for walks, read books. No regular exercise. 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 [...] for walks, read books. No regular exercise. [id number] Work Phone: History of Present illness [...] discharge from lumps. 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 [...] past, but this made her sleep worse. [id number] [facility] Work Phone: History of Present illness [...] discharge from lumps. 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 [...] past, but this made her sleep worse. [facility] Work Phone: History of Present illness Narrative* Patient presents to clinic with complaints of pain during sex and mild Ricardo. Her assessment was significant for mild strength deficits and decreased movement of her pelvic floor. Patient will benefit from skilled PT to address these impairments. * Clinical Presentation: Stable and/or uncomplicated characteristics. * Level of Complexity: low [facility] Work Phone: History of Present illness [...] urology for painful intercourse. Planning physical therapy. [facility] Work Phone: History of Present illness [...] urology for painful intercourse. Planning physical therapy. [facility] Work Phone: History of Present illness [...] been able to have these done yet. [id number] [address] Work Phone: Instructions* Name Dates Details Instructions not documented BX-Jctwlhwzvnoflz-Bdonoajq Work Phone: Family History Unknown Family Member [...] [place] [address] [facility] [address] [place] [id number] Referral ID Status Reason Start Date Expiration Date Visits Requested Visits Authorized [id number] Pending Review Perform Procedure 3 06/17/2023 1 1 Additional Source Comments INFORMATION SOURCE (unrecogn ized section and content) DATE CREATED AUTHOR 07/19/2021 [facility] DATE CREATED AUTHOR AUTHOR'S ORGANIZ ATION 10/16/2021 [facility] DATE CREATED AUTHOR AUTHOR'S ORGANIZ ATION 03/02/2022 [facility] DATE CREATED AUTHOR AUTHOR'S ORGANIZ ATION 10/17/2022 [facility] DATE CREATED AUTHOR AUTHOR'S ORGANIZ ATION 12/11/2022 [facility] DATE CREATED AUTHOR AUTHOR'S ORGANIZ ATION 07/25/2023 [facility] DATE CREATED AUTHOR AUTHOR'S ORGANIZ ATION 09/03/2023 [facility] DATE CREATED AUTHOR AUTHOR'S ORGANIZ ATION 09/07/2023 [facility] DATE CREATED AUTHOR AUTHOR'S ORGANIZ ATION 11/14/2023 [facility] DATE CREATED AUTHOR AUTHOR'S ORGANIZ ATION 01/06/2024 [facility] DATE CREATED AUTHOR AUTHOR'S ORGANIZ ATION 02/19/2024 [facility] EPIC Reason for Visit (unrecogniz ed section and content) Reason Comments Full Body Skin Check Specialty Diagnoses / Procedures Referred By Contac t Referred To Contact Radiology Diagnoses Abnormal mammogram Procedures BI mammo bilateral diagnostic tomosynthesis [place] [address] [facility] [address] [place] [address] Referral ID Status Reason Start Date Expiration Date Visits Requested Visits Authorized [id number] Pending Review Perform Procedure 12/03/2022 06/01/2023 1 1 Specialty Diagnoses / Procedures Referred By Contac t Referred To Contact Radiology Diagnoses Lump in female breast Procedures [place] [address] [facility] [address] [place] [address] Referral ID Status Reason Start Date Expiration Date Visits Requested Visits Authorized [id number] Pending Review Perform Procedure 3 06/17/2023 1 1 Reason Comments New Patient Visit NPV- ADHD Specialty Diagnoses / Procedures Referred By Contac t Referred To Contact Neurology Diagnoses Anxiety Procedures OR OFFICE/OUTPATIENT NEW HIGH MDM 60-74 [place] [address] [facility] [address] [place] [address] Jhonny Issa MD [address] [facility], [address] [place] [address] Referral ID Status Reason Start Date Expiration Date Visits Requested Visits Authorized [id number] Pending Review Specialty Services Required 12/03/2022 06/01/2023 [...] or prosecute any alcohol or drug abuse patient.[facility] the event this information is protected by the Federal Confidentiality of Alcohol and Drug Abuse Patient Records regulations: The Federal rules restrict any use of the information to criminally investigate or prosecute any alcohol or drug abuse patient.[facility] Care Teams (unrecognized sec tion and content) Shot Peen Operator Relationship Specialty Start Date End Date Danielle Infante [address] [facility] [address] [place] [address] PCP - General Family Practice 06/10/16 Team Status: Inactive Member Role Status Dates Danielle Infante , Primary Care Provider Active Kp Alvares DO [facility] Attending Provider Active Team Status: Active Member Role Status Dates Danielle Infante DO Primary Care Provider Active Team Status: Inactive Member Role Status Dates Danielle Infante , Primary Care Provider Active Bolivar Sherman , VETERINARY TECHNICIAN-C Attending Provider Activ e Shot Peen Operator Relationship Specialty [place] [address] [facility] [address] [place] [address] PCP - General Family Medicine 10/29/22 Shot Peen Operator Relationship Specialty [place] [address] [address] PCP - General Family Medicine 10/29/22 Shot Peen Operator Relationship Specialty [place] [address] [address] PCP - General Family Medicine 10/29/22 Shot Peen Operator Relationship Specialty [place] [address] [address] PCP - General Family Medicine 10/29/22 Jhonny Issa MD [address] [facility], [address] [address] Consulting Physician Neurology 02/19/23 Shot Peen Operator Relationship Specialty Start [place] [address] [address] PCP - General Family Medicine 10/29/22 Jhonny Issa MD [address] [facility], [address] [address] Consulting Physician Neurology 02/19/23 Shot Peen Operator Relationship Specialty Start [place] [address] [address] PCP - General Family Medicine 10/29/22 [place] [address] [address] PCP - MMO ACO PCP 03/09/23 Jhonny Issa MD [address] [facility], [address] [address] Consulting Physician Neurology 02/19/23 Shot Peen Operator Relationship Specialty Start Date End Date Danielle Infante DO [address] [address] PCP - General Family Medicine 06/10/16 Team [...] September 05, 2023 End: September 05, 2023 Shot Peen Operator Relationship Specialty Start Date End Date Jhonny Issa MD [address] [facility], [address] [place] [address] Consulting Physician Neurology 02/19/23 Shot Peen Operator Relationship Specialty Start Date End Date Danielle Infante DO [address] [facility] [address] [place] [address] PCP - General Family Medicine 07/15/22 Shot Peen Operator Relationship Specialty Start Date End Date Danielle Infante DO [address] [facility] [address] [place] [address] PCP - General Family Medicine 07/15/22 Shot Peen Operator Relationship Specialty Start Date End Date Danielle Infante DO [address] [facility] [address] [place] [address] PCP - General Family Medicine 07/15/22 Shot Peen Operator Relationship Specialty Start Date End Date Danielle Infante DO [address] [facility] [address] [place] [address] PCP - General Family Medicine 07/15/22 Goals [...] BE BASED ON THE PRIMARY CLINICAL RECORDS. [employer] [facility]. provides no warranty or guarantee of the accuracy or completeness of information in this document.
[2024-03-08 12:32] LABS: Estimated Average Glucose 105 mg/dL; Glycohemoglobin A1C 5.3 % (4.5-6.2)
[2024-03-08 12:33] LABS: BOX Test Reference Lab FIRELANDS
[2024-03-08 12:33] LABS: BOX Test Reference Lab UNITY; BOX Test Sent Out UNITY
[2024-03-08 13:11] LABS: Amphetamine Screen Urine NEGATIVE (NEGATIVE); Barbiturates Screen Urine NEGATIVE (NEGATIVE); Benzodiazepines Screen Urine NEGATIVE (NEGATIVE); Buprenorphine Screen Urine NEGATIVE (NEGATIVE); Cannabinoid Screen Urine NEGATIVE (NEGATIVE); Cocaine Screen Urine NEGATIVE (NEGATIVE); Methadone Screen Urine NEGATIVE (NEGATIVE); Methamphetamines Screen Urine NEGATIVE (NEGATIVE); Opiate Screen Urine NEGATIVE (NEGATIVE); Oxycodone Screen Urine NEGATIVE (NEGATIVE); Phencyclidine Screen Urine NEGATIVE (NEGATIVE); Tricyclic Antidepressant Urine NEGATIVE (NEGATIVE)
[2024-03-08 13:12] LABS: Basophils Percent Auto 0.4 % (0.2-2.0); Hematocrit 38.7 % (36.0-48.0); Hemoglobin 12.6 g/dL (12.0-16.0); Immature Granulocytes Abs Auto 0.05 10^3/uL (0.00-0.03); Immature Granulocytes Pct Auto 0.6 % (0.0-0.5); Lymphocytes Absolute Auto 1.5 10^3/uL (1.2-3.8); Lymphocytes Percent Auto 18.2 % (20.5-60.0); Mean Corpuscular HGB Conc 32.6 g/dL (29.9-35.2); Mean Corpuscular Hemoglobin 27.7 pg (26.7-34.0); Mean Corpuscular Volume 85.1 fL (81.0-99.0); Mean Platelet Volume 11.8 fL (9.5-13.5); Monocytes Absolute Auto 0.4 10^3/uL (0.3-0.8); Monocytes Percent Auto 5.3 % (1.7-12.0); Neutrophils Absolute Auto 6.2 10^3/uL (1.4-6.5); Neutrophils Percent Auto 75.5 % (43.0-75.0); Platelet Count 200 10^3/uL (150-450); Red Blood Count 4.55 10^6/uL (4.20-5.40); Red Cell Distribution Width 12.9 % (11.0-15.0); White Blood Count 8.2 10^3/uL (4.0-11.0)
[2024-03-09 06:17] LABS: HBsAg Screen Negative (Negative); HCV Ab Non Reactive (Non Reactive); HIV Ab/p24 Ag Screen Non Reactive (Non Reactive)
[2024-03-09 11:07] LABS: Rapid Plasma Reagin, Quant Non Reactive titer (NonRea<1:1)
== END 2024-03-08 11:29 | disposition home or self-care (01) ==
PROVIDERS: Visit Provider Obstetrics & Gynecology
DX: Z34.01 Encounter for supervision of normal first pregnancy, first trimester (principal); Z36.0 Encounter for antenatal screening for chromosomal anomalies; N92.6 Irregular menstruation, unspecified
CPT/HCPCS: 36415; 80307; 83036; 85025; 86592; 86762; 86803; 86850; 86900; 86901; 87086; 87340; 87389

== ENCOUNTER 2024-03-31 16:54 | Emergency (ER) | payer OTHER, SELFPAY ==
[2024-03-31 17:18] VITALS: BP 132/74; PULSE 98; TEMP 36.6; O2SAT 97; BMI 25.0
--- OUTSIDE RECORDS SUMMARY | 2024-03-31 17:20 | XMS_ITS | CCD ---
Author Organization [facility] Care Team Providers Care User Experience Lead Name Role Phone Rafaela Arguello Unavailable [id number], [facility] Unavailable Unavailable Rafaela Arguello Unavailable Unavailable [...] Ms. Rafaela Schultz Primary Care Unavai labtaryn Argeullo, Ms. Rafaela Schultz Attending Unavai lable Hema, MsJonathan Schultz Primary Care Unavai lable Hema, [...] Aguilar, Luz Malvin Attending Unavailable Lauren, Luz Coombs Referring Unavailable Bolivar Sherman Unavailable DO Danielle Infante Primary Care Provider [phone] SCOTT Sherman Attending Provider Karolina Man DO Primary Care Provider [phone] Jhonny Issa MD Unavailable Donovan SORIA, Karolina [...] Attending Unavailable DANIELLE INFANTE Primary Care Azael kaye Andersen, LAYNE Avila Attending Provider [phone] KAROLINA MAN Referring Unavailable KAROLINA MAN Primary Care Unavailable KAROLINA MAN Referring Unavailable KAROLINA MAN Primary Care Unavailable MARYANN DAVISNO Attending Unava ilDanielle Villalobos DO Primary Care Provider Matt Stapleton Attending Unavailable Matt Stapleton Admitting Unavailable NO FAMILY, PHYSICIAN Primary Care Unavailable Swetha Andersen Attending Unavailable Swetha Andersen Admitting Unavailable Matt Stapleton DO Attending Provider MATT STAPLETON Attending Unavailable MATT STAPLETON Attending Unavailable MATT STAPLETON Attending Unavailable Allergies Allergy Classification Reported Allergen(s) Allergy Type Date of Onset Reaction(s) Facility Cephalosporins (antibiotic) (1 source) loracarbef Drug Allergy [facility] Work Phone: Latex (1 source) natural latex rubber Substance Allergy [facility] Work Phone: NSAIDs (1 source) NSAIDs Drug Allergy [facility] Work Phone: (20 sources) loracarbef; Translations: [loracarbef] Drug Allergy 08-29-19 23 Unknown [id number] Work Phone: (20 sources) natural latex rubber; Translations: [LATEX] Allergy to substance (finding) 08-29-19 [place] [address] Repository (20 sources) NSAIDs; Translations: [NSAIDs] Allergy to drug (finding) Unknown [id number] Work Phone: (20 sources) Animal dander - Cats Allergy to substance (finding) [id number][id number] Work Phone: (2 sources) Latex Drug allergy (disorder) [facility] Repository (1 source) loracarbef Drug Allergy [facility] Repository (5 sources) NSAIDs; Translations: [NSAIDS (NON-STEROIDAL ANTI-INFLAMMATOR Y DRUG)] Drug allergy (disorder) 06-11-19 17 [facility] Repository (7 sources) Non-steroidal anti-inflammator y agent Propensity to adverse reactions to drug 06-11-19 Other: See Comments, Other [facility] (8 sources) Latex Propensity to adverse reactions 08-29-19 Unknown, Rash [facility] Other (13 sources) Cat Dander; Translations: [CAT DANDER] Allergy to substance 09-22-20 23 Unknown, Itching [facility] (4 sources) NSAIDS (Non-Steroidal Anti-Inflamma; Translations: [NSAIDS (Non-Steroidal Anti-Inflamma] Allergy to substance 09-05-19 Itching [facility] (3 sources) CAT HAIR STANDARDIZED ALLERGENIC EXTRACT; Translations: [CAT HAIR STANDARDIZED ALLERGENIC EXTRACT] Propensity to adverse reactions to drug (disorder) 11-29-19 Itching [place] [address] Repository (8 sources) Latex Allergy to substance 08-29-19 23 Rash [facility] (8 sources) Non-steroidal anti-inflammator y agent Drug Allergy 06-11-19 Other, Unknown, Itching [facility] (5 sources) Cat Hair Extract Allergy to substance 11-29-19 Itching [facility] (1 source) Latex Drug allergy (disorder) 09-05-19 [facility] Repository Medications Current Medications Medication Drug Class(es) Dates Sig (Normalized) Sig (Original) 12 hr buPROPion hydrochloride 150 mg extended release oral tablet (20 sources) Aminoketone Start: 09-05-2023 take 1 tablet by mouth every twenty-four hours Bupropion Hcl 150 mg tablet extended release 24 hr Active MG PO September 04, 2023 11:00pm Start: 09-05-2023 Bupropion Hcl Active MG PO [...] DAY Quantity: 90 Refills: 2 Ordered: 17-Mar-2022 Hernan CARTOGRAPHY TECHNICIAN-PROJECT MANAGEMENT IT SPECIALIST, Rafaela Start : 08-Oct-2021 Active take 1 tablet by didi twice daily Wellbutrin 100 MG 1 tablet Orally Twice a day Active cephalexin 500 mg oral capsule (4 sources) Cephalosporin Antibacterial Start: 09-05-2023 take 1 capsule by mouth every twelve hours cephalexin (Keflex) 500 mg capsule Take 1 capsule (500 mg) by mouth every 12 hours. 09/05/2023 Active Start: 09-05-2023 take 1 capsule by mo [facility] twice daily Cephalexin 500 mg capsule Active 500 MG PO Twice daily 14 September 04, 2023 11:00pm cholecalciferol 0.05 mg oral capsule (7 sources) [...] BEFORE BEDTIME FOR 7 DAYS 11/11/2023 Active 24 hr dexmethylphenidate hydrochloride 10 mg extended release oral capsule (20 sources) Central Nervous System Stimulant Start: 2023 Dexmethylphenidate 10 mg capsule,ER biphasic 50-50 Active MG PO September 04, 2023 11:00pm Start: 02-19-2023 End: 10-20-2023 take 1 capsule [...] 1 tablet by mouth once daily drospirenone-e.estradioL-lm.FA (RonakazLalitha) 3-0.02-0.451 mg (24) (4) Take 1 tablet by mouth once daily. 0 07/18/2010 03/04/2023 Discontinued (Med List Cleanup) Start: 07-18-2010 take 1 tablet by didi th once daily drospirenone-e.estradioL-lm.FA (Ronakaz, Lalitha) 3-0.02-0.451 mg (24) (4) Take 1 [...] Active ondansetron 4 mg disintegrating oral tablet (6 sources) Serotonin-3 Receptor Antagonist Start: 02-12-2024 End: 03-13-2024 take 1 tablet by mouth every six hours for nausea ondansetron ODT (Zofran-ODT) 4 MG disintegrating tablet Indications: Nausea and vomiting in Take 1 tablet (4 mg) by mouth every 6 (six) hours if needed for nausea or vomiting for up to 30 doses 30 tablet 2 02/29/2024 Active predniSONE 20 mg oral tablet (1 [...] gestation 30 suppository 3 01/26/2024 02/25/2024 Active promethazine hydrochloride 12.5 mg oral tablet (8 sources) Phenothiazine Start: 02-16-2024 End: 05-16-2024 take 1 tablet by mouth every six hours as needed for nausea and nausea, then take 1 tablet by mouth every six hours as needed for nausea and nausea promethazine (Phenergan) 12.5 MG tablet Indications: Nausea and vomiting in Take 1 tablet (12.5 mg) by mouth every 6 (six) hours if needed for nausea or vomiting for up to 30 doses Take 1 tablet by mouth every 6 hours as needed for nausea. 30 tablet 2 02/29/2024 Active traZODone hydrochloride 50 mg oral tablet [...] 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 Chronic Esophageal disorders (14 sources) Gastroesophageal reflux disease; Translations: [Gastro-esophageal reflux disease without esophagitis] Onset: 08-28-2022 02-10-2023 Chronic Menstrual disorders (1 source) Missed period; Translations: [...] other diseases of circulatory system] Episodic Other complications of (2 sources) Multigravida of advanced maternal age; Translations: [Supervision of elderly multigravida, unspecified trimester] 03-16-2024 Episodic Other connective tissue disease (1 source) [...] adult] Chronic Other and delivery including normal (4 sources) ; Translations: [Encounter for supervision of normal , unspecified, unspecified trimester] 02-16-2024 Episodic Other skin disorders (2 sources) Lentiginosis; Translations: [Other melanin hyperpigmentation] Episodic Other upper respiratory disease (13 sources) Chronic nasopharyngitis; Translations: [Chronic nasopharyngitis] Onset: [...] aches and pains; Translations: [Body aches] Episodic Residual codes; unclassified (2 sources) Gestation period, 11 weeks; Translations: [11 weeks gestation of ] 03-16-2024 Episodic Spondylosis; intervertebral disc disorders; other back problems (20 sources) Neck pain; Translations: [Cervicalgia] Episodic Urinary tract infections (7 sources) Urinary tract infectious disease; Translations: [Urinary [...] 11-28-2022 Episodic Diseases of mouth; excluding dental (13 sources) Sialoadenitis; Translations: [Sialoadenitis, unspecified] Onset: 08-28-2022 02-10-2023 Episodic E Codes: Other specified and classifiable (8 sources) Exposure to tanning bed, sequela; Translations: [Late effects of other accidents] Onset: 09-15-2019 Episodic Genitourinary symptoms and ill-defined conditions (20 sources) Increased frequency of urination; Translations: [Urinary frequency] Onset: 09-06-2021 11-28-2022 Episodic Melanomas of skin (14 sources) H/O [...] Test Name Value Interpretation Reference Range Facility Urinalysis macro (dipstick) panel (U)on 03-16-2024 Bilirubin, UA Negative Negative - 4(70) +++ mg/dL [facility] Blood, UA Negative Negative - 50 Shaun/mcL [facility] Clarity, UA Clear [facility] Color, UA Yellow [facility] Glucose, UA Negative Negative - 2000(110) ++++ mg/dL [facility] Interpretation and review of laboratory results Normal [facility] Ketones, UA Negative Negative - 160(16) ++++ mg/dL [facility] Leukocytes, UA Negative Negative - 500+++ Denys/mcL [facility] Nitrite, UA Negative Negative - Positive [facility] pH, UA 5.5 5 - 9 [facility] Protein, UA Negative Negative - 1999(20) ++++ mg/dL [facility] Spec Grav, UA 1.025 1 - 1.03 [facility] Urobilinogen, UA 1.0 0.2 - 12 mg/dL [facility] MLR HEMOGLOBIN A1Con 024 Glucose [Mass/Vol] 105 mg/dL [facility] HbA1c (Bld) [Mass fraction] 5.3 % 4.5 - 6.2 % [facility] Comment on above: ADA RECOMMENDED LIMI T 4.0 - 6.0 ADA THERAPEUTIC TARGET < 7.0 ACTION SUGGESTED > 7.0 [facility] Urine Cultureon 03-08-2024 Bacteria identified Cx Nom (U) 75,000 colonies/ml mixed bacterial skin contaminants 2 Days PERFORMED BY: [place] [address] PATHOLOGIST CEMETERY MANAGER LASHONDA HARMON M.D. Normal [facility] Comment on above: Performed By: #### C UU #### [address] HCG ( test) Ql (U)o n 02-16-2024 Interpretation and review of laboratory results Abnormal [facility] Preg Test, Ur Positive Negative [facility] Urinalysis macro (dipstick) panel (U)on 02-16-2024 Bilirubin, UA Negative Negative - 4(70) +++ mg/dL [facility] Blood, UA Negative Negative - 50 Shaun/mcL [facility] Clarity, UA Clear [facility] Color, UA Yellow [facility] Glucose, UA Negative Negative - 1999(110) ++++ mg/dL [facility] Interpretation and review of laboratory results Normal [facility] Ketones, UA Negative Negative - 160(16) ++++ mg/dL [facility] Leukocytes, UA Negative Negative - 500+++ Denys/mcL [facility] Nitrite, UA Negative Negative - Positive [facility] pH, UA 6.5 5 - 9 [facility] Protein, UA Negative Negative - 1999(20) ++++ mg/dL [facility] Spec Grav, UA 1.02 1 - 1.03 [facility] Urobilinogen, UA 1.0 0.2 - 12 mg/dL [facility] PREG QUANT HCGon 01-27- 024 HCG QUANTITATIVE 97608 mIU/mL [facility] Comment on above: 5-50 0.2-1 WEEK 50-500 1-2 WEEKS 100-5,000 2-3 WEEKS 500-10,000 3-4 WEEKS 1,000-50,000 4-5 WEEKS 10,000-100,000 5-6 WEEKS 15,000-200,000 6-8 WEEKS 10,000-100,000 2-[facility]REG QUANT HCGon 024 HCG QUANTITATIVE 5650 mIU/mL [facility] Comment on above: 5-50 0.2-1 WEEK 50-500 1-2 WEEKS 100-5,000 2-3 WEEKS 500-10,000 3-4 WEEKS 1,000-50,000 4-5 WEEKS 10,000-100,000 5-6 WEEKS 15,000-200,000 6-8 WEEKS 10,000-100,000 2[facility] test[facility] Ql (U)o n 01-05-2024 Interpretation and review of laboratory results Normal [facility] Work Phone: Preg Test, Ur Negative Negative [facility] Work Phone: [facility] Work Phone: POCT UA Automated manually r esultedon 01-05-2024 Appearance (U) Cloudy Abnormal Clear [facility] Work Phone: Glucose Test strip (U) [Mass/Vol] Negative NEGATIVE mg/dl [facility] Work Phone: Hemoglobin Ql (U) Negative NEGATIVE [facility] Work Phone: Interpretation and review of laboratory results Abnormal [facility] Work Phone: Leukocyte esterase Test strip Ql (U) SMALL (1+) Abnormal NEGATIVE [facility] Work Phone: Nitrite Ql (U) Positive Abnormal NEGATIVE [facility] Work Phone: pH (U) 7.5 [pH] No Reference Range Established [facility] Work Phone: POC Bilirubin, Urine Negative NEGATIVE [facility] Work Phone: POC Color, Urine Yellow Straw, [place] ow, Light-Yellow [facility] Work Phone: POC Ketones, Urine Negative NEGATIVE mg/dl Un [facility] Work Phone: POC Protein, Urine Negative NEGATIVE, 30 (1+) mg/dl [facility] Work Phone: POC Specific [place], Urine 1.010 1.005 - 1.035 [facility] Work Phone: POC Urobilinogen, Urine 0.2 0.2, 1.0 EU/DL [facility] Work Phone: [facility] Work Phone: IGP,APTIMA HPV,AGE GDLNon AGE GDLN ACOG TESTING Note . [facility] Comment on above: TESTS RESULT FLAG UN ITS REF RANGE LAB Clinician Provided Cytology Information Source.............Cervix;Endocervix No. of containers..01 ThinPrep Vial Age Algo ACOG Katherin... 32 FLAG LEGEND: L-Low Normal,H-High Normal,LL-Alert Low,HH-Alert High <-Panic Low,>-Panic High,A-Abnormal,AA-Critical Abnormal Performed at: 01 =[address] [place] [address] Lacy Perez MD, HPV APTIMA Negative Negative [facility] Comment on above: This nucleic acid am plification test detects fourteen high- risk HPV types (16,18,31,33,35,39,45,51,52,56,58,59,66,68) without differentiation. Performed at: =[facility] [id number] Professional Nursing Assistant: Lacy Perez MD, Phone: [phone] Performed at: [address] [id number] Professional Nursing Assistant: Lacy Perez MD, Phone: [phone] IGP, APTIMA HPV, RFX 16/18,45 Note . [facility] Comment on above: TESTS RESULT FLAG UN ITS REF RANGE LAB DIAGNOSIS: 02 NEGATIVE FOR INTRAEPITHELIAL LESION OR MALIGNANCY. Specimen adequacy: 02 Satisfactory for evaluation. Endocervical and/or squamous metaplastic cells (endocervical component) are present. Performed by: Jose Maria Tang, Sheet Metal Assembler (ASCP) . 02 Note: Note 02 The [...] Low,>-Panic High,A-Abnormal,AA-Critical Abnormal Performed at: 02 [facility] [address] [place] [address] Lacy Perez MD, BRUSH-SPATULA CERVIX ENDOCERVIX [facility] Urine Cultureon 09-05-2023 Bacteria identified Cx Nom (U) <9,000 colonies/ml mixed bacterial skin contaminants 2 Days PERFORMED BY: [facility] [address] [place] [address] PATHOLOGIST CEMETERY MANAGER DAVID CHILD M.D. Normal [facility] Comment on above: Performed By: #### C UU #### [facility] [address] CNOVon 09-01-2023 CNOV Office Visit (AMDERM ) MICHAEL WELLER ([id number]) 1985 F Date Time Provider Department 09/01/23 [...] Past Histories independently gathered by the clinical family support worker and the remaining scribed note accurately describes [...] - dexmethylphenidate (more content not included)... Normal [facility] Drugs of abuse screen W Refl ex confirm panel (U)on 02-19-2023 Amphetamines Screen Ql (U) Negative Normal Presumptive Negative [facility] Comment on above: Order [...] By: #### 8 7428-9 #### ALEJANDRO RAMOS ([id number]) [facility] ([facility] [address] [place] [address] Barbiturates Screen Ql (U) Negative Normal Presumptive Negative [facility] Comment on above: Order [...] NG/ML Performed By: #### 8 7428-9 #### ALEAJNDRO SUERO RIO REN ([id number]) [facility] ([facility] [address] [place] [address] Benzodiazepines Ql (U) Negative Normal Presumptive Negative [facility] Comment on above: Order [...] By: #### 8 7428-9 #### ALEJANDRO RAMOS ([id number]) [facility] ([facility] [address] [place] [address] Benzoylecgonine Screen Ql (U) Negative Normal Presumptive Negative [facility] Comment on above: Order [...] By: #### 8 7428-9 #### ALEJANDRO RAMOS ([id number]) [facility] ([facility] [address] [place] [address] Cannabinoids Screen Ql (U) Negative Normal Presumptive Negative [facility] Comment on above: Order [...] By: #### 8 7428-9 #### ALEJANDRO RAMOS ([id number]) [facility] ([facility] [address] [place] [address] fentaNYL+Norfentanyl Screen Ql (U) Negative Normal Presumptive Negative [facility] Comment on above: Order [...] By: #### 8 7428-9 #### ALEJANDRO RAMOS ([id number]) [facility] ([facility]) [address] [place] [address] Opiates Screen Ql (U) Negative Normal Presum ptive Negative [facility] Comment on above: Order [...] By: #### 8 7428-9 #### ALEJANDRO RAMOS ([id number]) [facility] ([facility]) [address] [place] [address] oxyCODONE+oxyMORphone Screen Ql (U) Negative Normal Presumptive Negative [facility] Comment on above: Order [...] By: #### 8 7428-9 #### ALEJANDRO RAMOS ([id number]) [facility] ([facility]) [address] [place] [address] Phencyclidine Ql (U) Negative Normal Presump tive Negative [facility] Comment on above: Order [...] By: #### 8 7428-9 #### ALEJANDRO RAMOS ([id number]) [facility] ([facility]) [address] [place] [address] BI MAMMO BILATERAL DIAGNOSTI C TOMOSYNTHESISon 12-19-2022 BI MAMMO BILATERAL DIAGNOSTIC TOMOSYNTHESIS Interpreted By: Mohan Romano and Avery Ross STUDY: BI MAMMO BILATERAL DIAGNOSTIC TOMOSYNTHESIS; BI US BREAST LIMITED LEFT; 12/19/2022 9:42 am; 12/19/2022 10:52 am ACCESSION NUMBER(S): [id number]; [id number] ORDERING CLINICIAN: KAROLINA MAN INDICATION: Annual screening [...] axillary abnormality was performed by a registered net programmer. No sonographic abnormalities are seen in the [...] any future breast imaging appointments, please call [phone] ([phone]). MACRO: None Signed by: Mohan Romano 12/19/2022 11:32 AM Dictation workstation: [id number] [facility] BI US BREAST LIMITED LEFTon 12-19-2022 BI US BREAST LIMITED LEFT Interpreted By: Mohan Romano and Avery Ross STUDY: BI MAMMO BILATERAL DIAGNOSTIC TOMOSYNTHESIS; BI US BREAST LIMITED LEFT; 12/19/2022 9:42 am; 12/19/2022 10:52 am ACCESSION NUMBER(S): [id number]; [id number] ORDERING CLINICIAN: KAROLINA MAN INDICATION: Annual screening [...] axillary abnormality was performed by a registered net programmer. No sonographic abnormalities are seen in the [...] any future breast imaging appointments, please call [phone] ([phone]). MACRO: None Signed by: Mohan Romano 12/19/2022 11:32 AM Dictation workstation: [id number] [facility] DBT Breast - bilateral diagn osticon 12-19-2022 Radiology Study observation (narrative) [facility] Work Phone: No Panel Informationon 12-19 1. [...] any future breast imaging appointments, please call [phone] ([phone]). MACRO: None Signed by: Mohan Romano 12/19/2022 11:32 AM Dictation workstation: [id number] [facility] Interpreted By: Mohan Romano and Avery Ross STUDY: BI MAMMO BILATERAL DIAGNOSTIC TOMOSYNTHESIS; BI US BREAST LIMITED LEFT; 12/19/2022 9:42 am; 12/19/2022 10:52 am ACCESSION NUMBER(S): [id number]; [id number] ORDERING CLINICIAN: KAROLINA MAN INDICATION: Annual screening [...] axillary abnormality was performed by a registered net programmer. No sonographic abnormalities are seen in the area of the patient's reported palpable lump or pain. 3 morphologically normal lymph nodes are incidentally seen. MMODAL No Panel InformationOrdered By: Mohan Romano on 12-19-2022 [facility] Work Phone: US Breast - left limitedon 1 Radiology Study observation (narrative) [facility] Work Phone: COMPREHENSIVE PANELon 2022 Albumin [Mass/Vol] 4.6 g/dL Normal 3.4 - 5.0 [facility] Comment on above: Performed By: #### C MP #### [facility] [address] [place] [address] ALP [Catalytic activity/Vol] 63 U/L Normal 33 - 110 [facility] Comment on above: Performed By: #### C MP #### [facility] [address] [place] [address] ALT [Catalytic activity/Vol] 23 U/L Normal 7 - 45 [facility] Comment on above: Result Comment: Lacie ents treated with Sulfasalazine may generate falsely decreased results for ALT. Performed By: #### C MP #### [facility] [address] [place] [address] Anion gap [Moles/Vol] 14 mmol/L Normal 10 - 20 [facility] Comment on above: Performed By: #### C MP #### [facility] [address] [place] [address] AST [Catalytic activity/Vol] 22 U/L Normal 9 - 39 [facility] Comment on above: Performed By: #### C MP #### [facility] [address] [place] [address] Bilirubin [Mass/Vol] 0.3 mg/dL Normal 0.0 - 1.2 [facility] Comment on above: Performed By: #### C MP #### [facility] [address] [place] [address] Calcium [Mass/Vol] 9.2 mg/dL Normal 8.6 - 10.6 [facility] Comment on above: Performed By: #### C MP #### [facility] [address] [place] [address] Chloride [Moles/Vol] 102 mmol/L Normal 98 - 107 [facility] Comment on above: Performed By: #### C MP #### [facility] [address] [place] [address] Creatinine [Mass/Vol] 0.66 mg/dL Normal 0.50 - 1.05 [facility] Comment on above: Performed By: #### C MP #### [facility] [address] [place] [address] eGFR FEMALE >90 Normal >90 [facility] Comment on above: Result Comment: CALC ULATIONS OF ESTIMATED GFR ARE PERFORMED USING THE 2020 CKD-EPI STUDY REFIT EQUATION WITHOUT THE RACE VARIABLE FOR THE IDMS-TRACEABLE CREATININE METHODS. https://jasn.asnjournals.org/content/early//ASN.192329 4313 Performed By: #### C MP #### [facility] [address] [place] [address] Glucose [Mass/Vol] 82 mg/dL Normal 74 - 99 [facility] Comment on above: Performed By: #### C MP #### [facility] [address] [place] [address] HCO3 (Bld) [Moles/Vol] 25 mmol/L Normal 21 - 32 [facility] Comment on above: Performed By: #### C MP #### [facility] [address] [place] [address] Potassium [Moles/Vol] 3.9 mmol/L Normal 3.5 - 5.3 [facility] Comment on above: Performed By: #### C MP #### [facility] [address] [place] [address] Protein [Mass/Vol] 7.2 g/dL Normal 6.4 - 8.2 [facility] Comment on above: Performed By: #### C MP #### [facility] [address] [place] [address] Sodium [Moles/Vol] 137 mmol/L Normal 136 - 145 [facility] Comment on above: Performed By: #### C MP #### [facility] [address] [place] [address] Urea nitrogen [Mass/Vol] 17 mg/dL Normal 6 - 23 [facility] Comment on above: Performed By: #### C MP #### [facility] [address] [place] [address] VITAMIN D, 25-HYDROXYon 11-08 VITAMIN D, 25-HYDROXY 36 ng/mL Normal [facility] Comment on above: Result Comment: . DEFICIENCY: < 20 NG/ML INSUFFICIENCY: 20-29 NG/ML SUFFICIENCY: 30-100 NG/ML THIS ASSAY ACCURATELY QUANTIFIES THE SUM OF VITAMIN D3, 25-HYDROXY AND VIT D2,25-HYDROXY. Performed By: #### V TDOH #### [facility] [address] [place] [address] COMPREHENSIVE PANELon 2022 Lab Spec[address] Normal [facility] Comment on above: Performed By: #### C MP #### [facility] [facility] [address] [place] [address] Performed By: #### V TDOH #### [facility] [address] [place] [address] XR foot RT min 3V*on 023 XR foot RT min 3V* [facility] Jascha Other XR foot RT min 3V* [facility] Main [place] [employer] Other XR foot RT min 3V* [address] [facility] [employer] Other XR foot RT min 3V* ALEISHA Guzman [address] [employer] Other XR foot RT min 3V* XRay Report [employer] Other XR foot RT min 3V* Signed [employer] Other XR foot RT min 3V* Patient: Michael Weller MR#: [id number] [employer] Other XR foot RT min 3V* [id number] [employer] Other XR foot RT min 3V* : 1985 Acct:[id number] [employer] Other XR foot RT min 3V* Age/Sex: 36 / F ADM Date: 07/02/22 [employer] Other XR foot RT min 3V* Loc: [id number] Room: Type: [facility] [employer] Other XR foot RT min 3V* Attending Dr: Bolivar Sherman CAP MAKER-C [employer] Other XR foot RT min 3V* Copies to: Bolivar Sherman PER DIEM NURSEThird Age Other XR foot RT min 3V* Ordering Provider: Bolivar Sherman [employer] Other XR foot RT min 3V* Date of Service: 07/02/22 [employer] Other XR foot RT min 3V* XR/XR foot RT min 3V*: Right foot pain [employer] Other XR foot RT min 3V* 3 views RIGHT foot [employer] Other XR foot RT min 3V* COMPARISON:None N [facility] [employer] Other XR foot RT min 3V* HISTORY: RIGHT 5th metatarsal pain for one week [employer] Other XR foot RT min 3V* Acute findings: None [employer] Other XR foot RT min 3V* Degenerative change: Unremarkable [employer] Other XR foot RT min 3V* Soft tissue findings : Unremarkable [employer] Other XR foot RT min 3V* Joint effusion: None [employer] Other XR foot RT min 3V* Postop changes: None [employer] Other XR foot RT min 3V* XR/XR foot RT min 3V* [employer] Other XR foot RT min 3V* IMPRESSION:No acute findings [employer] Other XR foot RT min 3V* Impression dictated by: Roddy Villegas M.D.07/02/2022 1:27 PM [employer] Other XR foot RT min 3V* Dictation Location: [place] [address] [employer] Other XR foot RT min 3V* Transcribed By: PWS 07/02/22 [address] [employer] Other XR foot RT min 3V* Dictated By: Roddy Villegas DO 07/02/22 1325 [employer] Other XR foot RT min 3V* Signed By: [employer] Other XR foot RT min 3V* 07/02/[address] [place] [address] [employer] Other Office Visit (Primary Care F orms)on [...] Anxiety; YOEL = N; Verified Transmission to [id number]; Last Updated By: Shara AOBiome; 02/10/2022 3:45:08 PM Chief Complaint An interactive [...] Grandfather Famil (more content not included)... Normal [facility] ULTRASOUND LIMITED BREASTon 10-14-2021 ULTRASOUND LIMITED BREAST Patient Name: MICHAEL WELLER STUDY: BREAST ULTRASOUND; 10/14/2021 3:38 pm ACCESSION NUMBER(S): [id number] ORDERING CLINICIAN: GRAZYNA ROMANO INDICATION: Patient presents with right axillary painful palpable mass for the last 2 years. History of benign right breast mass with unknown pathology in right breast. COMPARISON: Mammogram 06/21/2021, 07/06/2018, 01/08/2018. Breast ultrasound 06/21/2021, 04/23/2020, 07/15/2019, 02/02/2019 FINDINGS: Targeted ultrasound was performed of the right axilla by a registered net programmer using elastography. Within the right axilla, no sonographic abnormality is present. The tissues are soft on elastography. Incidental note of normal appearing right axillary lymph node. IMPRESSION: No sonographic evidence of malignancy. Recommendation is clinical follow-up for patient's symptomatology. Screening mammogram in June 2022. BI-RADS CATEGORY: Category: 2 - Benign. Recommendation: Clinical follow-up for symptomatology. For any future breast imaging appointments, please call [phone]). I personally reviewed the images/study and I agree with the findings as stated by residential worker rBandt Camarillo MD. Electronically signed by: JAYME STEWART MD [facility] Ultrasound Limited Breaston 10-14-2021 MG Breast Screening Normal [facility] Work Phone: Albumin [Mass/volume] in Ser um or PlasmaOrdered By: Kp Alvares on 10-07-2021 Albumin [Mass/Vol] 3.9 g/dL 3.2-5.5 [facility] Basophils Auto (Bld) [#/Vol] Ordered By: Kp Alvares on 10-07-2021 Basophils (Bld) [#/Vol] 0.0 10*3/uL 0.0-0.2 [facility] Basophils/100 WBC Auto (Bld) Ordered By: Kp Alvares on 10-07-2021 Basophils/100 WBC (Bld) 0.6 % . [facility] Blood hemoglobin measurement (mass/volume)Ordered By: Kp Alvares on 10-07-2021 Hemoglobin (Bld) [Mass/Vol] 12.9 g/dL 11.8-15.4 [facility] Blood leukocytes automated c ount (number/volume)Ordered By: Kp Alvares on 10-07-2021 WBC (Bld) [#/Vol] 6.7 10*3/uL 4.5-11.0 [facility] Cholesterol [Mass/volume] in Serum or PlasmaOrdered By: Kp Alvares on 10-07-2021 Cholesterol [Mass/Vol] 192 mg/dL 140-200 [facility] Comment on above: Chol less than 200 m g/dl low risk Chol 201-239 mg/dl borderline risk Chol 240 mg/dl and greater high risk Cholesterol in LDL Calc [Mas s/Vol]Ordered By: Kp Alvares on 10-07-2021 Cholesterol in LDL [Mass/Vol] 104 mg/dL 0-100 [facility] Comment on above: LDL ATP III CLASSIFI CATION LDL less than 100 mg/dL Optimal LDL 100-129 mg/dL Near or above optimal LDL 130-159 mg/dL Borderline high LDL 160-189 mg/dL High LDL greater than 189 mg/dL Very high Cholesterol in VLDL Calc [Ma ss/Vol]Ordered By: Kp Alvares on 10-07-2021 Cholesterol in VLDL [Mass/Vol] 49 mg/dL [facility] Creatinine and Glomerular fi ltration rate.predicted panel (S/P/Bld)Ordered By: Kp Alvares on 10-07-2021 Creatinine [Mass/Vol] 0.60 mg/dL 0.44-1.[address] [facility] Eosinophils Auto (Bld) [#/Vo l]Ordered By: Kp Alvares on 10-07-2021 Eosinophils (Bld) [#/Vol] 0.0 10*3/uL 0.0-0.45 [facility] Eosinophils/100 WBC Auto (Bl d)Ordered By: Kp Alvares on 10-07-2021 Eosinophils/100 WBC (Bld) 0.1 % . [facility] Erythrocyte distribution wid th Auto (RBC) [Ratio]Ordered By: Kp Alvares on 10-07-2021 Erythrocyte distribution width (RBC) [Ratio] 14.1 % 11.9-15.3 [facility] Estimated glomerular filtrat ion rate (GFR) non- AmericanOrdered By: Kp Alvares on 10-07-2021 GFR/1.73 sq M.predicted among non-blacks MDRD (S/P/Bld) [Vol rate/Area] > 60 mL/Min [facility] Globulin Calc (S) [Mass/Vol] Ordered By: Kp Alvares on 10-07-2021 Globulin (S) [Mass/Vol] 2.7 g/dL [facility] Hematocrit Auto (Bld) [Volum e fraction]Ordered By: Kp Alvares on 10-07-2021 Hematocrit (Bld) [Volume fraction] 39.2 % 34.0-46.4 [facility] Laboratory - Hematology and Cell countsOrdered By: Kp Alvares on 10-07-2021 Nucleated RBC/100 WBC (Bld) [Ratio] 0.0 % 0-0.5 [facility] Lymphocytes Auto (Bld) [#/Vo l]Ordered By: Kp Alvares on 10-07-2021 Lymphocytes (Bld) [#/Vol] 2.0 10*3/uL 1.00-4.8 [facility] Lymphocytes/100 WBC Auto (Bl d)Ordered By: Kp Alvares on 10-07-2021 Lymphocytes/100 WBC (Bld) 30.2 % . [facility] MCH Auto (RBC) [Entitic mass ]Ordered By: Kp Alvares on 10-07-2021 MCH (RBC) [Entitic mass] 28.2 pg 24.7-34.3 [facility] MCHC Auto (RBC) [Mass/Vol]Or dered By: Kp Alvares on 10-07-2021 MCHC (RBC) [Mass/Vol] 33.0 g/dL 32.0-35.[address] [facility] MCV Auto (RBC) [Entitic vol] Ordered By: Kp Alvares on 10-07-2021 MCV (RBC) [Entitic vol] 85.5 fL 80-100 [facility] Monocytes Auto (Bld) [#/Vol] Ordered By: Kp Alvares on 10-07-2021 Monocytes (Bld) [#/Vol] 0.4 10*3/uL 0.0-0.8 [facility] Monocytes/100 WBC Auto (Bld) Ordered By: Kp Alvares on 10-07-2021 Monocytes/100 WBC (Bld) 5.4 % . [facility] Neutrophils Auto (Bld) [#/Vo l]Ordered By: Kp Alvares on 10-07-2021 Neutrophils (Bld) [#/Vol] 4.2 10*3/uL 1.8-7.7 [facility] Neutrophils/100 WBC Auto (Bl d)Ordered By: Kp Alvares on 10-07-2021 Neutrophils/100 WBC (Bld) 63.7 % . [facility] No Panel InformationOrdered By: Kp Alvares on 10-07-2021 Estimated GFR () > 60 mL/Min [facility] Comment on above: GFR estimated refere nce range: According to KDOQI guidelines, <60 ml/min/1.73m2 is sufficient to diagnose a patient with chronic kidney disease. Pharmacy Creatinine Clearance (Chem N/A [facility] Platelet mean volume Auto (B ld) [Entitic vol]Ordered By: Kp Alvares on 10-07-2021 Platelet mean volume (Bld) [Entitic vol] 11.4 fL 6.3-10.7 [facility] Platelets Auto (Bld) [#/Vol] Ordered By: Kp Alvares on 10-07-2021 Platelets (Bld) [#/Vol] 164 10*3/uL 150-450 [facility] Protein [Mass/volume] in Ser um or PlasmaOrdered By: Kp Alvares on 10-07-2021 Protein [Mass/Vol] 6.6 g/dL 6.1-7.9 [facility] RBC Auto (Bld) [#/Vol]Ordere d By: Kp Alvares on 10-07-2021 RBC (Bld) [#/Vol] 4.59 10*6/uL 3.60-5.00 [facility] Serum or plasma alanine bynum otransferase measurement without P-5'-P (enzymatic activiOrdered By: Kp Alvares on 10-07-2021 ALT No additional P-5'-P [Catalytic activity/Vol] 16 U/L 10-60 [facility] Serum or plasma albumin/glob ulin mass ratioOrdered By: Kp Alvares on 10-07-2021 Albumin/Globulin [Mass ratio] 1.4 {ratio} [facility] Serum or plasma alkaline jenn sphatase measurement (enzymatic activity/volume)Ordered By: Kp Alvares on 10-07-2021 ALP [Catalytic activity/Vol] 55 U/L 32-92 [facility] Serum or plasma aspartate am inotransferase measurement (enzymatic activity/volume)Ordered By: Kp Alvares on 10-07-2021 AST [Catalytic activity/Vol] 16 U/L 10-42 [facility] Serum or plasma calcium marlon urement (mass/volume)Ordered By: Kp Alvares on 10-07-2021 Calcium [Mass/Vol] 9.2 mg/dL 8.2-10.2 [facility] Serum or plasma chloride any surement (moles/volume)Ordered By: Kp Alvares on 10-07-2021 Chloride [Moles/Vol] 102 mmol/L 95-[address] [facility] Serum or plasma glucose marlon urement (mass/volume)Ordered By: Kp Alvares on 10-07-2021 Glucose [Mass/Vol] 86 mg/dL 70-100 [facility] Comment on above: ADA recommended refe rence range Random Glucose Reference Range is dependent on time and content of last meal. Glucose of more than 200 mg/dL in a nonstressed, ambulatory subject supports the diagnosis of Diabetes Mellitus. Serum or plasma high density lipoprotein (HDL) cholesterol measurementOrdered By: Kp Alvares on 10-07-2021 Cholesterol in HDL [Mass/Vol] 39 mg/dL 35-85 [facility] Comment on above: HDL CHOL ATP-III CLA SSIFICATION Cardiovascular Risk HDL > or equal to 60 mg/dL LOW HDL < 40 mg/dL HIGH Serum or plasma potassium me asurement (moles/volume)Ordered By: Kp Alvares on 10-07-2021 Potassium [Moles/Vol] 4.1 mmol/L 3.5-5.[address] [facility] Serum or plasma sodium measu rement (moles/volume)Ordered By: Kp Alvares on 10-07-2021 Sodium [Moles/Vol] 134 mmol/L 136-146 [facility] Serum or plasma total biliru bin measurement (mass/volume)Ordered By: Kp Alvares on 10-07-2021 Bilirubin [Mass/Vol] 0.6 mg/dL 0.3-1.[address] [facility] Serum or plasma total carbon dioxide measurement (moles/volume)Ordered By: Kp Alvares on 10-07-2021 CO2 [Moles/Vol] 25.9 mmol/L 22.0-30.0 [facility] Serum or plasma total choles terol/high density lipoprotein (HDL) cholesterol mass ratOrdered By: Kp Alvares on 10-07-2021 Cholesterol.total/Cho lesterol in HDL [Mass ratio] 4.9 {ratio} <5.0 [facility] Serum or plasma urea nitroge n measurement (mass/volume)Ordered By: Kp Alvares on 10-07-2021 Urea nitrogen [Mass/Vol] 10 mg/dL 9- [facility] TSH DL <= 0.005 mIU/L QnOrde red By: Kp Alvares on 10-07-2021 TSH Qn 2.68 m[IU]/L 0.45-5.33 [facility] Triglyceride [Mass/volume] i n Serum or PlasmaOrdered By: Kp Alvares on 10-07-2021 Triglyceride [Mass/Vol] 246 mg/dL 35-149 [facility] Comment on above: TRIG ATP III CLASSIF ICATION TRIG less than 150 mg/dL Normal TRIG 150-199 mg/dL Borderline high TRIG 200-500 mg/dL High TRIG greater than 500 mg/dL Very high Standard traceable to the Center for Disease Conrtrol and Prevention (CDC) test method. CBC AUTO DIFFon 07-12-2021 BASO # 0.0 103/ul Normal 0.0-0.1 [facility] Comment on above: Performed By: #### C BC #### [facility] [address] [place] [address] Dr. Kalyn Gutierrez Basophils/100 WBC (Bld) 0.4 % Normal 0.2-2.0 [facility] Comment on above: Performed By: #### C BC #### [facility] [address] [place] [address] Dr. Kalyn Gutierrez EO # 0.0 103/ul Normal 0.0-0.7 [facility] Comment on above: Performed By: #### C BC #### [facility] [address] [place] [address] Dr. Kalyn Gutierrez Eosinophils/100 WBC (Bld) 0.0 % Critically low 0.9-7.0 [facility] Comment on above: Performed By: #### C BC #### [facility] [address] [place] [address] Dr. Kalyn Gutierrez Erythrocyte distribution width (RBC) [Ratio] 12.8 % Normal 11.0-15.0 [facility] Comment on above: Performed By: #### C BC #### [facility] [address] [place] [address] Dr. Kalyn Gutierrez Hematocrit (Bld) [Volume fraction] 38.8 % Normal 36.0-48.0 [facility] Comment on above: Performed By: #### C BC #### [facility] [address] [place] [address] Dr. Kalyn Gutierrez Hemoglobin (Bld) [Mass/Vol] 12.4 g/dL Normal 12.0-16.0 [facility] Comment on above: Performed By: #### C BC #### [facility] [address] [place] [address] Dr. Kalyn Gutierrez IG # 0.02 10e3/ul Normal 0.00-0.03 [facility] Comment on above: Performed By: #### C BC #### [facility] [address] [place] [address] Dr. Kalyn Gutierrez IG % 0.3 % Normal 0.0-0.5 [facility] Comment on above: Performed By: #### C BC #### [facility] [address] [place] [address] Dr. Kalyn Gutierrez LYMPH # 1.8 103/ul Normal 1.2-3.8 [facility] Comment on above: Performed By: #### C BC #### [facility] [address] [place] [address] Dr. Kalyn Gutierrez Lymphocytes/100 WBC (Bld) 25.0 % Normal 20.5-60.0 [facility] Comment on above: Performed By: #### C BC #### [facility] [address] [place] [address] Dr. Kalyn Gutierrez MANUAL DIFF REQ NO Normal [facility] Comment on above: Performed By: #### C BC #### [facility] [address] [place] [address] Dr. Kalyn Gutierrez MCH (RBC) [Entitic mass] 28.2 pg Normal 26.7-34.0 [facility] Comment on above: Performed By: #### C BC #### [facility] [address] [place] [address] Dr. Kalyn Gutierrez MCHC (RBC) [Mass/Vol] 32.0 g/dL Normal 29.9-35.2 [facility] Comment on above: Performed By: #### C BC #### [facility] [address] [place] [address] Dr. Kalyn Gutierrez MCV (RBC) [Entitic vol] 88.4 fL Normal 81.0-99.0 [facility] Comment on above: Performed By: #### C BC #### [facility] [address] [place] [address] [address] Kalyn Gutierrez MONO # 0.6 103/ul Normal 0.3-0.8 [facility] Comment on above: Performed By: #### C BC #### [facility] [address] [place] [address] Dr. Kalyn Gutierrez Monocytes/100 WBC (Bld) 8.7 % Normal 1.7-12.0 [facility] Comment on above: Performed By: #### C BC #### [facility] [address] [place] [address] Dr. Kalyn Gutierrez NEUT # 4.8 103/ul Normal 1.4-6.5 [facility] Comment on above: Performed By: #### C BC #### [facility] [address] [place] [address] Dr. Kalyn Gutierrez Neutrophils/100 WBC (Bld) 65.6 % Normal 43.0-75.0 [facility] Comment on above: Performed By: #### C BC #### [facility] [address] [place] [address] Dr. Kalyn Gutierrez Platelet mean volume (Bld) [Entitic vol] 12.3 fL Normal 9.5-13.5 [facility] Comment on above: Performed By: #### C BC #### [facility] [address] [place] [address] Dr. Kalyn Gutierrez PLT 183 103/ul Normal 150-450 [facility] Comment on above: Performed By: #### C BC #### [facility] [address] [place] [address] Dr. Kalyn Gutierrez RBC 4.39 106/ul Normal 4.20-5.40 [facility] Comment on above: Performed By: #### C BC #### [facility] [address] [place] [address] Dr. Kalyn Gutierrez WBC 7.3 103/ul Normal 4.0-11.0 [facility] Comment on above: Performed By: #### C BC #### [facility] [address] [place], [place] [address] Dr. Kalyn Gutierrez PREG QUANT HCGon 07-12-2021 HCG QUANT <1 Normal [facility] Comment on above: Performed By: #### P REGQNT #### [facility] [id number] Kalyn Gutierrez HCG RANGE SEE BELOW Normal [facility] Comment on above: Result Comment: 5-50 0-1 WEEK 40-300 1-2 WEEKS 100-1,000 2-3 WEEKS 500-6,000 3-4 WEEKS 5,000-200,000 1-2 MONTHS 10,000-100,000 2-3 MONTHS 3,000-50,000 2ND TRIMESTER 1,000-50,000 3RD TRIMESTER Performed By: #### P REGQNT #### [facility] [id number] Kalyn Gutierrez US PELVIS AND TRANSVAGon [...] NOEMI KRISHNA Date: 2021-06-22 09:10 Normal [facility] DIGITAL DIAG MAMM BILAT WITH TOMOon 06-21-2021 DIGITAL DIAG MAMM BILAT WITH SUSANA Patient Name: MICHAEL WELLER STUDY: DIGITAL DIAG MAMM BILAT WITH SUSANA; BREAST ULTRASOUND; 06/21/2021 3:05 pm; 06/21/2021 3:31 pm ACCESSION NUMBER(S): [id number]; [id number] ORDERING CLINICIAN: RAFAELA ARGUELLO INDICATION: Right breast [...] breast ultrasound was performed by a registered net programmer utilizing elastography. The irregular hypoechoic parallel mass [...] any future breast imaging appointments, please call [phone] ([phone]). Patient letter sent SAAPPR Electronically signed by: MOHAN ROMANO MD Normal [facility] IO UA (automated w/o microsc opy)on 06-21-2021 Protein (U) [Mass/Vol] Negative [facility] Work Phone: IO UA (automated w/o microscopy) Negative [facility] Work Phone: IO UA (automated w/o microscopy) Normal (0.2-1.0 mg/dl) [facility] Work Phone: IO UA (automated w/o microscopy) 6.5 1 [facility] Work Phone: IO UA (automated w/o microscopy) 1.025 1 [facility] Work Phone: IO UA (automated w/o microscopy) Clear [facility] Work Phone: IO UA (automated w/o microscopy) Yellow [facility] Work Phone: IO Ultrasound, measurement p ost-void resid urine and/or bl cap; no imagon 06-21-2021 IO Ultrasound, measurement post-void resid urine and/or bl cap; no imag 0 mL [facility] Work Phone: Radiologyon 06-21-2021 MG Breast Diagnostic Please click on the link to view the study images Normal [facility] Work Phone: MG Breast Diagnostic Normal [facility] [address] Work Phone: Tobacco Screening.on 022 Fall risk assessment a) No falls within the last year [facility] Work Phone: Tobacco use status CPHS b) No [facility] Work Phone: ULTRASOUND LIMITED BREASTon 06-21-2021 ULTRASOUND LIMITED BREAST Patient Name: MICHAEL WELLER STUDY: DIGITAL DIAG MAMM BILAT WITH SUSANA; BREAST ULTRASOUND; 06/21/2021 3:05 pm; 06/21/2021 3:31 pm ACCESSION NUMBER(S): [id number]; [id number] ORDERING CLINICIAN: RAFAELA ARGUELLO INDICATION: Right breast [...] breast ultrasound was performed by a registered net programmer utilizing elastography. The irregular hypoechoic parallel mass [...] any future breast imaging appointments, please call [phone] ([phone]). Patient letter sent SAAPPR Electronically signed by: MOHAN ROMANO MD Normal [facility] Ultrasound Limited Breaston 06-21-2021 MG Breast Screening Normal [facility] [address] Work Phone: IO UA (automated w/o microsc opy)on 06-04-2021 Protein (U) [Mass/Vol] Negative LU-ALLZ-Anfsiz [address] Work Phone: IO UA (automated w/o microscopy) Negative JI-OVZV-Fvvzcc ke [address] Work Phone: IO UA (automated w/o microscopy) Normal RG-GZLR-Xjluao ke [address] Work Phone: IO UA (automated w/o microscopy) 7.0 1 QR-SOHV-Tsdphw ke [address] Work Phone: IO UA (automated w/o microscopy) 1.020 1 NS-BEHR-Tmtxxi ke [address] Work Phone: IO UA (automated w/o microscopy) Clear UQ-KGNP-Xmzqto ke [address] Work Phone: IO UA (automated w/o microscopy) Yellow NS-KIBT-Ysdvfw ke [address] Work Phone: Tobacco Screening.on 022 Adult depression screening assessment No MP-WSPC-[facility] tla [address] Work Phone: Fall risk assessment a) No falls within the last year ZX-NYQE-Qzmphf ke [address] Work Phone: Last menstrual period start date 14May2021 FS-RUGL-Vlhokn ke [address] Work Phone: Tobacco use status CPHS b) No JQ-OORZ-Qrldqt ke 200 Work Phone: PAP ACOG PANEL 2: 30 to 65on 03-28-2021 . . Normal [facility] Comment on above: Result Comment: Perf ormed at: WB Performed By: #### [id number] #### [facility] [address] [address] [address] Kalyn Gutierrez Age Gdln ACOG Testing 30-65 Normal [facility] Comment on above: Performed By: #### [id number] #### [facility] [address] [address] [address] Kalyn Gutierrez DIAGNOSIS: Comment Normal [facility] Comment on above: Result Comment: NEGA TIVE FOR INTRAEPITHELIAL LESION OR MALIGNANCY. Performed at: WB Performed By: #### [id number] #### [facility] [address] [address] [address] Kalyn Gutierrez HPV Aptima Negative Normal Negative [facility] Comment on above: Result Comment: This nucleic acid amplification test detects fourteen high-risk HPV types (16,18,31,33,35,39,45,51,52,56,58,59,66,68) without differentiation. Performed at: =G Performed By: #### [id number] #### [facility] [address] [place] [address] Dr. Kalyn Gutierrez Methodology: Comment Normal [facility] Comment on above: Result Comment: This liquid based ThinPrep(R) pap test was screened with the use of an image guided system. Performed at: WB Performed By: #### [id number] #### [facility] [address] [place] [address] Dr. Kalyn Gutierrez Note: Comment Normal [facility] Comment on above: Result Comment: The Pap smear is a screening test designed to aid in the detection of premalignant and malignant conditions of the uterine cervix. It is not a diagnostic procedure and should not be used as the sole means of detecting cervical cancer. Both false-positive and false-negative reports do occur. . Performed at: WB Performed By: #### [id number] #### [facility] [address] [place] [address] Dr. Kalyn Gutierrez Performed by: Comment Normal [facility] Comment on above: Result Comment: Tawnya Del Rio, Sheet Metal Assembler (ASCP) Performed at: WB Performed By: #### [id number] #### [facility] [address] [place] [address] Dr. Kalyn Gutierrez Specimen adequacy: Comment Normal [facility] Comment on above: Result Comment: Sati sfactory for evaluation. Endocervical and/or squamous metaplastic cells (endocervical component) are present. Performed at: [facility] Performed By: #### [id number] #### [facility] [address] [place] [address] Dr. Kalyn Gutierrez Vital Signs Date Time Vital Sign Value Performing Clinician Facility 03-16-2024 16:18-0500 Body mass index (BMI) [Ratio] 34.58 kg/m2 [facility] Work Phone: [facility] 03-16-2024 16:18-0500 Body weight 94.26 kg [facility] Work Phone: [facility] 03-16-2024 16:18-0500 Diastolic blood pressure 72 mm[Hg] [facility] Work Phone: [facility] 03-16-2024 16:18-0500 Systolic blood pressure 116 mm[Hg] Matt Stapleton DO Work Phone: [facility] 01-05-2024 11:51-0400 Body mass index (BMI) [Ratio] 30.45 kg/m2 Maryann Haile-Sachin Work Phone: 4(988)619-032401 [place] [address] 01-05-2024 11:51-0400 Body temperature 98.2 [degF] Maryann Haile-Sachin Work Phone: 7(931)[phone] [place] [address] 01-05-2024 11:51-0400 Body weight 83.01 kg Maryann Haile-Sachin Work Phone: 7(628)469-080201 [place] [address] 01-05-2024 11:51-0400 Diastolic blood pressure 76 mm[Hg] Maryann Mic-Sachin Work Phone: 5(791)622-882001 [place] [address] 01-05-2024 11:51-0400 Heart rate 74 /min Maryann Haile-Sachin Work Phone: 1(744)567-049501 [place] [address] 01-05-2024 11:51-0400 Respiratory rate 18 /min Maryann Haile-Sachin Work Phone: 0(700)293-482501 [place] [address] 01-05-2024 11:51-0400 SaO2% (BldA) [Mass fraction] 98 % Maryann Haile-Sachin Work Phone: 0(026)938-293701 [place] [address] 01-05-2024 11:51-0400 Systolic blood pressure 119 mm[Hg] Maryann Mic-Sachin Work Phone: 4(817)328-000701 [place] [address] 09-05-2023 13:24-0400 Body height 165.1 cm [facility] 09-05-2023 13:24-0400 Body mass index (BMI) [Ratio] 29.2 kg/m2 [facility] 09-05-2023 13:24-0400 Body temperature 97.9 [degF] [facility] 09-05-2023 13:24-0400 Body weight 79.83 kg [facility] 09-05-2023 13:24-0400 Diastolic blood pressure 85 mm[Hg] [facility] 09-05-2023 13:24-0400 Heart rate 106 /min [facility] 09-05-2023 13:24-0400 Respiratory rate 18 /min [facility] 09-05-2023 13:24-0400 SaO2% (BldA) [Mass fraction] 96 % [facility] 09-05-2023 13:24-0400 Systolic blood pressure 120 mm[Hg] [facility] 07-22-2023 14:37-0400 Body height 165.1 cm Jhonny Issa MD Work Phone: [facility] 07-22-2023 14:37-0400 Body mass index (BMI) [Ratio] 30.72 kg/m2 Jhonny Issa MD Work Phone: [facility] 07-22-2023 14:37-0400 Body weight 83.73 kg Jhonny Issa MD Work Phone: [facility] 07-22-2023 14:37-0400 Diastolic blood pressure 78 mm[Hg] Jhonny Issa MD Work Phone: [facility] 07-22-2023 14:37-0400 Heart rate 111 /min Jhonny Issa MD Work Phone: [facility] 07-22-2023 14:37-0400 Systolic blood pressure 118 mm[Hg] Jhonny Issa MD Work Phone: [facility] 04-27-2023 15:40-0500 Body height 165.1 cm Jhonny Issa MD Work Phone: [facility] 04-27-2023 15:40-0500 Body mass index (BMI) [Ratio] 34.15 kg/m2 Jhonny Issa MD Work Phone: [facility] 04-27-2023 15:40-0500 Body weight 93.08 kg Jhonny Issa MD Work Phone: [facility] 04-27-2023 15:40-0500 Diastolic blood pressure 60 mm[Hg] Jhonny Issa MD Work Phone: [facility] 04-27-2023 15:40-0500 Heart rate 123 /min Jhonny Issa MD Work Phone: [facility] 04-27-2023 15:40-0500 Respiratory rate 14 /min Jhonny Issa MD Work Phone: [facility] 04-27-2023 15:40-0500 Systolic blood pressure 104 mm[Hg] Jhonny Issa MD Work Phone: [facility] 02-19-2023 10:39-0500 Body height 165.1 cm Jhonny Issa MD Work Phone: [facility] 02-19-2023 10:39-0500 Body mass index (BMI) [Ratio] 36.08 kg/m2 Jhonny Issa MD Work Phone: [facility] 02-19-2023 10:39-0500 Body weight 98.34 kg Jhonny Issa MD Work Phone: [facility] 02-19-2023 10:39-0500 Diastolic blood pressure 83 mm[Hg] Jhonny Issa MD Work Phone: [facility] 02-19-2023 10:39-0500 Heart rate 94 /min Jhonny Issa MD Work Phone: [facility] 02-19-2023 10:39-0500 Systolic blood pressure 117 mm[Hg] Jhonny Issa MD Work Phone: [facility] 07-02-2022 13:20-0400 Body height 165.1 cm [facility] Other [employer] Other 07-02-2022 13:20-0400 Body mass index (BMI) [Ratio] 33.28 kg/m2 Bolivar Sherman Other [employer] Other 07-02-2022 13:20-0400 Body weight 90.72 kg Bolivar Sherman Other [employer] Other 07-02-2022 13:20-0400 Diastolic blood pressure 78 mm[Hg] Bolivar Sherman Other [employer] Other 07-02-2022 13:20-0400 Respiratory rate 18 /min Bolivar Sherman Other [employer] Other 07-02-2022 13:20-0400 SaO2% (BldA) [Mass fraction] 99 % Bolivar Sherman Other [employer] Other 07-02-2022 13:20-0400 Systolic blood pressure 117 mm[Hg] Bolivar Sherman Other [employer] Other 10-14-2021 15:07-0400 Diastolic blood pressure 98 mm[Hg] Rafaela Arguello Work Phone: [employer] Work Phone: 10-14-2021 15:07-0400 Heart rate 103 /min Rafaela Arguello Work Phone: [employer] Work Phone: 10-14-2021 15:07-0400 Systolic blood pressure 132 mm[Hg] Rafaela Arguello Work Phone: [employer] Work Phone: 06-21-2021 08:13-0400 Body height 165.1 cm Rafaela Arguello Work Phone: [facility] Work Phone: 06-21-2021 08:13-0400 Body mass index (BMI) [Ratio] 33.28 kg/m2 Rafaela Silva Hema Work Phone: [facility] Work Phone: 06-21-2021 08:13-0400 Body surface area Derived from formula 1.98 m2 Rafaela Silva Hema Work Phone: 4(243)[phone] [address] [place] [address] Work Phone: 06-21-2021 08:13-0400 Body temperature 97.2 [degF] Rafaela Silva Hema Work Phone: 1(462)983-230259 [place] [address] Work Phone: 06-21-2021 08:13-0400 Body weight 90.72 kg Rafaela Silva Hema Work Phone: 1(138)403-822359 [place] [address] Work Phone: 06-21-2021 08:13-0400 Diastolic blood pressure 82 mm[Hg] Rafaela Silva Hema Work Phone: 6(006)916-731292 [address] [place] [address] Work Phone: 06-21-2021 08:13-0400 Heart rate 89 /min Rafaela Silva Hema Work Phone: 7(977)656-743659 [place] [address] Work Phone: 06-21-2021 08:13-0400 Systolic blood pressure 115 mm[Hg] Rafaela Silva Hema Work Phone: 9(044)070-670292 [address] [place] [address] Work Phone: 06-04-2021 13:05-0400 Body height 167.64 cm Rafaela Arguello Work Phone: KC-MTPZ-Droetxuq 200 Work Phone: 06-04-2021 13:05-0400 Body mass index (BMI) [Ratio] 32.77 kg/m2 Rafaela Silva Arguello Work Phone: ZP-UOGV-Xifkifvx 200 Work Phone: 06-04-2021 13:05-0400 Body surface area Derived from formula 2.01 m2 Rafaela Arguello Work Phone: GF-ABOG-Tcbxhekm 200 Work Phone: 06-04-2021 13:05-0400 Body temperature 98.2 [degF] Rafaela Arguello Work Phone: DI-PIEB-Qugmdyzc 200 Work Phone: 06-04-2021 13:05-0400 Body weight 92.08 kg Rafaela Arguello Work Phone: WJ-XBZW-Ntqlvlpz 200 Work Phone: 06-04-2021 13:05-0400 Diastolic blood pressure 76 mm[Hg] Rafaela Agruello Work Phone: OP-YSES-Hvcsshtn 200 Work Phone: 06-04-2021 13:05-0400 Heart rate 80 /min Rafaela Arguello Work Phone: RH-EBJP-Bkowohwz 200 Work Phone: 06-04-2021 13:05-0400 Respiratory rate 16 /min Rafaela Arguello Work Phone: YU-YFRK-Qzzanftb 200 Work Phone: 06-04-2021 13:05-0400 Systolic blood pressure 122 mm[Hg] Rafaela Arguello Work Phone: HC-KRPR-Xnaozjxn 200 Work Phone: 12-07-2019 11:03-0400 BMI (Body Mass Index) 31.95 kg/m2 Rafaela Arguello MV-UDII-Ogrluhtm 200 Work Phone: 12-07-2019 11:03-0400 Body Temperature 98.3 [degF] Rafaela Arguello AI-XELM-Nshzooq e 200 Work Phone: Comment on above: Method: Temporal 12-07-2019 11:03-0400 Body weight 87.77 kg Rafaela Arguello FM-LHSX-Iafgmukh 200 Work Phone: 12-07-2019 11:03-0400 BP Diastolic 74 mm[Hg] Rafaela Arguello QI-WFGI-Vhsnhthd 200 Work Phone: 12-07-2019 11:03-0400 BP Systolic 118 mm[Hg] Rafaela Arguello HC-TFAU-Fppzbcja 200 Work Phone: 12-07-2019 11:03-0400 BSA (Body Surface Area) 1.96 m2 Rafaela Arguello MJ-EVNG-Fxugmnpe 200 Work Phone: 12-07-2019 11:03-0400 Height 165.74 cm Rafaela Arguello TU-DMFD-Njxrvdks 200 Work Phone: 12-07-2019 11:03-0400 Pulse (Heart Rate) 84 /min Rafaela Arguello OA-ABUA-Lbxvz mayur 200 Work Phone: 12-07-2019 11:03-0400 Respiratory [...] Pulse (Heart Rate) 88 /min Rafaela Arguello PF-IYFK-Toub [facility] Work Phone: 05-16-2019 18:12-0400 Pulse Oximetry 98 % Rafaela Arguello RM-UUXD-Iflg 253 [facility] Work Phone: 05-16-2019 18:12-0400 Respiratory Rate 18 /min Rafaela Arguello MP-WSPC-[place] [address] [facility] Work Phone: Encounters Encounter Date Encounter Type Care Provider Facility Start: 03-16-2024 End: 03-16-2024 flow sheet Matt Daya DO Work Phone: [facility] Comment on above: First trimester preg isabella; 11 weeks gestation of ; Antepartum multigravida of advanced maternal age Start: 03-16-2024 End: 03-16-2024 ambulatory MATT DAYA Not Available Start: 03-16-2024 End: 03-16-2024 Bamboo flowsheet Matt Daya DO Work Phone: [facility] Start: 03-16-2024 End: 03-16-2024 Bamboo flowsheet Matt Daya DO Work Phone: [facility] Start: 03-08-2024 End: 03-08-2024 Clinisync Result Encounter Matt Daya DO Work Phone: [facility] Unsolicited Start: 03-08-2024 End: 03-08-2024 Clinisync Result Encounter Matt Daya DO Work Phone: [facility] Unsolicited Start: 03-08-2024 End: 03-08-2024 ambulatory Matt Daya Facility:[facility] Start: 03-08-2024 End: 03-08-2024 Departed Referred Matt Daya DO Work Phone: [facility] Start: 02-16-2024 End: 02-16-2024 Office outpatient visit [...] minutes Maryann Davison Work Phone: [facility] Comment on above: Acute lower UTI (Adrianna eulogio Dx); Urine frequency Start: 10-20-2023 End: 10-26-2023 Clinisync Result Encounter Matt Daya DO Work Phone: [facility] Unsolicited Start: 10-20-2023 End: 10-26-2023 Clinisync Result Encounter Matt Daya DO Work Phone: [facility] Unsolicited Start: 10-20-2023 End: 10-20-2023 ambulatory MATT DAYA Not Available Start: 09-05-2023 End: 09-05-2023 Departed Referred LAYNE Andersen Work Phone: [facility] 250 Start: 09-05-2023 End: 09-05-2023 ambulatory PHYSICIAN NO [facility] Work Phone: Start: 09-05-2023 End: 09-05-2023 Patient encounter procedure [facility] Amandeep Work Phone: Start: 09-01-2023 End: 09-01-2023 ambulatory ROULA BLEDSOE Facility:[facility] Start: 09-01-2023 End: 09-01-2023 Patient encounter procedure Roula Bledsoe CARTOGRAPHY TECHNICIAN.PROJECT MANAGEMENT IT SPECIALIST Work Phone: [facility] Comment on above: Dermatofibroma (Prim ottoniel Dx); Lentigines; Multiple benign nevi; Valles angioma; Hx of malignant melanoma Start: 07-22-2023 End: 07-22-2023 ambulatory [facility] Ambulatory Start: 07-22-2023 End: 07-22-2023 Office outpatient visit 25 minutes Jhonny Issa MD Work Phone: [facility] Comment on above: Encephalopathy (Prim ottoniel Dx); Attention deficit hyperactivity disorder (ADHD), predominantly inattentive type; Insomnia due to medical condition; Anxiety Start: 07-02-2023 End: 07-02-2023 ambulatory MATT STAPLETON Not Available Start: 04-27-2023 End: 04-27-2023 ambulatory [facility] Ambulatory Start: 04-27-2023 End: 04-27-2023 Office outpatient visit 25 minutes Jhonny Issa MD Work Phone: [facility] Comment on above: Encephalopathy (Prim ottoniel Dx); Attention deficit hyperactivity disorder (ADHD), predominantly inattentive type; Insomnia due to medical condition; Anxiety Start: 03-04-2023 End: 03-04-2023 ambulatory KAROLINA Cota [facility] Ambulatory Start: 03-04-2023 End: 03-04-2023 Office outpatient visit 15 minutes Karolina Man DO Work Phone: [facility] Comment on above: Anxiety Start: 02-19-2023 End: 02-19-2023 ambulatory [facility] Ambulatory Start: 02-19-2023 End: 02-19-2023 Office outpatient new 60 minutes Jhonny Issa MD Work Phone: [facility] Comment on above: Encephalopathy (Prim ottoniel Dx); Anxiety; Attention deficit hyperactivity disorder (ADHD), predominantly inattentive type Start: 12-19-2022 End: 12-19-2022 Subsequent hospital visit by physician Martha Breast Ultrasound 1 [facility] Comment on above: Lump in female breas t Start: 12-19-2022 End: 12-19-2022 ambulatory KAROLINA Cota [facility] Start: 12-19-2022 End: 12-19-2022 ambulatory KAROLINA Cota [facility] Start: 12-19-2022 End: 12-19-2022 Subsequent hospital visit by physician Martha Mammo 1 [facility] Comment on above: Abnormal mammogram Start: 12-03-2022 End: 12-03-2022 ambulatory KAROLINA Cota [facility] Ambulatory Start: 10-16-[address] Work Phone: [facility] Work Phone: Start: 07-02-2022 Office outpatient vi sit 25 minutes Bolivar [facility] Start: 07-02-2022 End: 07-02-2022 ambulatory DO Danielle Infante Work Phone: [facility] Work Phone: Start: 07-02-2022 End: 07-02-2022 Patient encounter procedure DO Danielle Infante Work Phone: [facility] 250 Start: 04-14-2022 Rx Renew[address] Work Phone: JC-ATMK-Uebijzth 200 Work Phone: Start: 03-17-2022 Rx Renewal Rafaela Sanabria rd Work Phone: FG-LOIY-Rswdeeqc 200 Work Phone: Start: 02-10-2022 ambulatory Rafaela Cierra Arguello Facility:[id number] Start: 02-10-2022 Office outpatient vi sit 25 minutes Rafaela Arguello Work Phone: KI-PLQS-Npyjbomn 200 Work Phone: Start: 10-30-2021 Rx Renewal Rafaela Sanabria rd Work Phone: QM-LYSW-Bidhytdd 200 Work Phone: Start: 10-17-2021 End: 10-17-2021 Patient encounter procedure Roula Bledsoe PROJECT MANAGEMENT IT SPECIALIST Work Phone: [facility] [place] Comment on above: Lentigines (Primary Dx); Multiple benign nevi; Valles angioma; Exposure to tanning bed, sequela; Hx of malignant melanoma; Dermatofibroma Start: 10-14-2021 Office consultation new/estab patient 60 min [facility]: Start: 10-14-2021 Patient encounter procedure [facility]gu[facility] Work [facility]: Start: 10-08-2021 Office outpatient vi sit 25 minutes Rafaela Arguello Work Phone: VG-OBNC-Xcsnapgs 200 Work Phone: Start: 10-08-2021 ambulatory Rafaela Arguello Facility:[id number] Start: 10-07-2021 End: 10-07-2021 Departed Referred DO Danielle Infante Work Phone: [facility] Start: 10-02-2021 Rx Renewal Rafaela Sanabria rd Work Phone: PO-RWTM-Jjhwkiia 200 Work Phone: Start: 09-06-2021 Patient encounter procedure Rafaela Arguello Work Phone: [facility] Work Phone: Start: 09-06-2021 ambulatory Ms. Russo Cierra Arguello Facility:[id number] Start: 07-12-2021 End: 07-12-2021 ambulatory NONE LISTED REQUEST Facility:H1 Start: 07-11-2021 Encounter for preprocedural cardiovascular examination DR MATT STAPLETON [facility] Start: 07-10-2021 End: 07-11-[address] MATT STAPLETON Facility:H1 Start: 07-10-2021 End: 07-11-2021 Encounter for preprocedural cardiovascular examination DR MATT STAPLETON Facility:H1 Start: 07-09-[address] MATT STAPLETON Facility :[facility]1 Start: 07-01-[address] Work Phone: CH-DIUU-Wqnllwdi 200 Work Phone: Start: 06-28-2021 Chart Update Rafaela Sanabria rd Work Phone: AU-TQYR-Oprprvyo 200 Work Phone: Start: 06-27-[address] Work Phone: AK-VKLJ-Ctucaltb 200 Work Phone: Start: 06-21-2021 End: 06-22-[address] MATT STAPLETON Facility:H1 Start: 06-04-2021 Office outpatient vi sit 25 minutes Rafaela Arguello Work Phone: OA-MZRJ-Xbjdvznr 200 Work Phone: Start: 06-04-2021 Patient encounter procedure Rafaela Arguello Work Phone: GV-FMTU-Jlynqrhk 200 Work Phone: Start: 06-04-2021 ambulatory Rafaela Arguello Facility:[id number] Start: 03-25-2021 End: 03-25-[address] MATT STAPLETON Facility:H1 Start: 12-07-2019 Patient encounter procedure Rafaela Arguello SM-ROEZ-Rrjnctkh 200 Work Phone: Start: 05-16-2019 Patient encounter procedure Rafaela Arguello VH-HRGH-Pbdb [facility] Work Phone: Start: 09-27-2018 Patient encounter procedure Rafaela Arguello MP-WSPC-[place] [facility] Work Phone: Start: 09-14-2018 Patient encounter procedure Rafaela Arguello MP-WSPC-[place] [facility] Work Phone: Start: 07-17-2017 Patient encounter procedure Rafaela Arguello ZC-CDNN-Vuyx [facility] Work Phone: Procedures Date Procedure Procedure Detail Performing Clinician Start: 03-16-2024 Urnls dip stick/tabl et rgnt non-auto w/o micrscp Matt Daya DO Work Phone: Start: 03-08-2024 MLR HEMOGLOBIN A1C Core y Daya DO Work Phone: Start: 02-16-2024 Urnls dip stick/tabl et rgnt non-auto w/o micrscp Matt Daya DO Work Phone: Start: 01-28-2024 [facility] PREG QUANT HCG Core y Daya DO Work Phone: Start: 01-26-2024 [facility] PREG QUANT HCG Core y Daya DO Work Phone: Start: 01-05-2024 End: 01-05-2024 Urine test visual color cmprsn meths Maryann Davison Work Phone: Start: 10-20-2023 IGP,APTIMA HPV,AGE GDLN Matt Daya DO Work Phone: Start: 10-20-2023 Microscopic observat [...] Surgery Rafaela Arguello Hyperlipidemia screening Tho francesca King Other Procedure on back Rafaela croft Work Phone: Removal of suture Bolivar For anabell Other Tonsillectomy Rafaela Arguello Total replacement of hip Keaton Arguello Plan of Treatment Date Care Activity Detail Author Start: 10-26-2037 Zoster Vaccines (1 o f 2) Zoster Vaccines (1 of 2) [facility] Start: 10-19-2028 Screening for malignant neoplasm of cervix [facility] Start: 10-18-2027 Screening for malignant neoplasm of cervix [facility] Start: 10-19-2026 Screening for malignant neoplasm of cervix [facility] Start: 10-17-2025 Screening for malignant neoplasm of cervix [facility] Start: 04-23-2025 Lipid panel Lipid Panel [facility] Start: 10-26-2024 End: 10-26-2024 Patient encounter procedure 10/26/2024 4:00 PM EDT Office Visit [facility] [address] [place] [phone] Matt Stapleton DO [address] [place], [place] [address] [facility] Start: 04-14-2024 End: 04-14-2024 Patient encounter procedure 04/14/2024 3:50 PM EST Routine [facility] [address] [place] [phone] Merary Wilcox PA [address] [place], [place] [phone] [facility] Start: 03-25-2024 Screening for malignant neoplasm of cervix [facility] Start: 03-16-2024 End: 03-16-2024 Patient encounter procedure [facility] Comment on above: Arrived Start: 03-08-2024 Bacteria identified in Urine by Culture Urine Culture [facility] Start: 03-08-2024 Urine culture [facility] Start: 02-16-2024 End: 02-15-2025 ABO/Rh ABO/Rh Lab [...] AM EST Initial [facility] [address] [facility] [place] [address] [facility] Start: 02-16-2024 End: 02-16-2024 Professional / ancillary services management 02/16/2024 8:00 AM EST Ancillary Procedure [facility] [address] [facility] [place] [address] [facility] Start: 11-08-2023 COVID-19 Vaccine ( season) COVID-19 Vaccine ( season) [facility] Start: 11-08-2023 Influenza vaccination [facility] Start: 10-14-2023 End: 10-14-2023 Patient encounter procedure 10/14/2023 3:15 PM EDT Office Visit [facility] [address] [place] [phone] Jhonny Issa MD [address] [facility], [address] [address] [facility] Start: 09-05-2023 Bacteria identified in Urine by Culture [facility] Start: 07-22-2023 End: 07-22-2023 Patient encounter procedure 07/22/2023 3:15 PM EDT Office Visit [facility] [address] [phone] Jhonny Issa MD [address] [facility], [facility] [address] [facility] [place] [address] [facility] Start: 04-27-2023 End: 04-27-2023 Patient encounter procedure 04/27/2023 3:15 PM EST Office Visit [facility] [address] [phone] Jhonny Issa MD [address] [facility], [facility] [address] [place] [address] [facility] Start: 03-09-2023 Behavioral Health Screening Behavioral Health Screening [facility] Start: 03-04-2023 End: 03-04-2023 Patient encounter procedure 03/04/2023 8:40 AM EST Office Visit [facility] [address] [facility] [address] [place] [phone] [place] [address] [facility] [address] [place], [place] [phone] [facility] Start: 02-19-2023 End: 02-20-2024 Drugs of abuse screen W Reflex confirm panel - Urine [facility] Service Area Work Phone: Comment on above: Expected: 02/19/2023 (Approximate), Expires: 02/20/2024 Start: 02-19-2023 End: 02-19-2023 Patient encounter procedure 02/19/2023 10:15 AM EST Office Visit [facility] [address] [place] [address] Jhonny Issa MD [address] [facility], [facility] [address] [facility] [place] [address] [facility] Start: 11-07-2022 COVID-19 Vaccine () COVID-19 Vaccine () [facility] Start: 11-07-2022 Influenza vaccination Influenza Vacc ine (#1) [facility] Start: 01-21-2022 FUV, Provider: Luz Aguilar, Status: Pen, Time: 3:40 PM FUV, Provider: Luz Aguilar, Status: Pen, Time: 3:40 PM XY-PNTE-Sfdgdjly 200 Work Phone: Start: 01-20-2022 [id number], Provider: Bisi Prabhakar, Status: Pen, Time: 5:00 PM [id number], Provider: Bisi Prabhakar, Status: Pen, Time: 5:00 PM [facility] Work Phone: Start: 01-13-2022 [id number], Provider: Bisi Prabhakar, Status: Pen, Time: 5:00 PM [id number], Provider: Bisi Prabhakar, Status: Pen, Time: 5:00 PM [facility] Work Phone: Start: 01-08-2022 [id number], Provider: Bisi Prabhakar, Status: Pen, Time: 4:00 PM [id number], Provider: Bisi Prabhakar, Status: Pen, Time: 4:00 PM [facility] Work Phone: Start: 01-01-2022 [id number], Provider: [...] Prabhakar, Status: Pen, Time: 5:00 PM [facility] Work Phone: Start: 11-07-2021 Influenza vaccination INFLUENZA (#1) [facility] Start: 10-16-2021 NPV, Provider: Nafisa Bermudez, Status: Pen, Time: 1:00 PM NPV, Provider: Nafisa Bermudez, Status: Pen, Time: 1:00 PM UU-HMHD-Gnokmjyp 200 Work Phone: Start: 10-08-2021 VIRFUVHOME, Provider : Rafaela Arguello, Status: Pen, Time: 11:40 AM VIRFUVHOME, Provider: Rafaela Arguello, Status: Pen, Time: 11:40 AM VL-NYGN-Nmcncphe 200 Work Phone: Start: 09-30-2021 FUV, Provider: Luz Aguilar, Status: Pen, Time: 1:40 PM FUV, Provider: Luz Aguilar, Status: Pen, Time: 1:40 PM [facility] Work Phone: Start: 09-18-2021 [id number], Provider: Bisi Prabhakar, Status: Pen, Time: 10:00 AM [id number], Provider: Bisi Prabhakar, Status: Pen, Time: 10:00 AM [facility] Work Phone: Start: 09-06-2021 [id number], Provider: Bisi Prabhakar, Status: Pen, Time: 8:00 AM [id number], Provider: Bisi Prabhakar, Status: Pen, Time: 8:00 AM [facility] Work Phone: Start: 08-02-2021 FUV, Provider: Luz Aguilar, Status: Pen, Time: 8:20 AM FUV, Provider: Luz Aguilar, Status: Pen, Time: 8:20 AM [facility] Work Phone: Start: 06-21-2021 NPV, Provider: Luz Aguilar, Status: Pen, Time: 8:00 AM NPV, Provider: Luz Aguilar, Status: Pen, Time: 8:00 AM [facility] Work Phone: Start: 03-27-2021 COVID-19 VACCINE (3 - Booster for Pfizer series) COVID-19 VACCINE (3 - Booster for Pfizer series) [facility] Start: 12-20-2020 COVID-19 Vaccine (3 - Pfizer series) COVID-19 Vaccine (3 - Pfizer series) [facility] Start: 01-09-2020 FFD mammogram Breast screening Mamm - Ultrasound of Breast [id number]-[id number] 200 Work Phone: Start: 10-26-2017 HPV TESTING HPV TESTING [facility] Start: 10-26-2009 DTaP/Tdap/Td Vaccine s (1 - Tdap) DTaP/Tdap/Td Vaccines (1 - Tdap) [facility] Start: 10-26-2008 PAP TESTING PAP TESTING [facility] Start: 10-26-2008 Screening for malignant neoplasm of cervix [facility] Start: 10-26-2006 Hepatitis B Vaccine (1 of 3 - 19+ 3-dose series) Hepatitis B Vaccine (1 of 3 - 19+ 3-dose series) [facility] Start: 10-26-2006 Hepatitis B Vaccines (1 of 3 - 19+ 3-dose series) Hepatitis B Vaccines (1 of 3 - 19+ 3-dose series) [facility] Start: 10-26-2006 Urine microalbumin profile [facility] Start: 10-26-2005 HEPATITIS C SCREENING HEPATITIS C [facility] Start: 10-26-2005 Hepatitis C screening Hepatitis C [facility] Start: 10-26-2005 HIV SCREENING HIV SCREENING [facility] Start: 10-26-2005 HIV screening HIV Screening [facility] Start: 10-26-2000 Varicella vaccination Varicell a Vaccines (1 of 2 - 13+ 2-dose series) [facility] Start: 1999 Adult depression screening assessment DEPRESSION SCREENING [facility] Start: 10-26-1988 MMR Vaccines (1 of 1 - Standard series) MMR Vaccines (1 of 1 - Standard series) [facility] Start: 10-26-1988 Varicella vaccination Varicell a Vaccines (1 of 2 - 2-dose childhood series) [facility] Start: 1987 HEPATITIS B (1 of 3 - 3-dose series) HEPATITIS B (1 of 3 - 3-dose series) [facility] Start: 1987 Hepatitis B Vaccines (1 of 3 - 3-dose series) Hepatitis B Vaccines (1 of 3 - 3-dose series) [facility] Start: 1987 HIV screening HIV Screening [facility] Start: 1987 Yearly Adult Physical Yearly Adult P [facility] Bacteria identified in Urine by Culture Urine culture Microbiology Routine Missed menses Ordered: 02/16/2024 [facility] Comment on above: Ordered: 02/16/2024 CBC W Auto Differential panel - Blood CBC and differential Lab Routine Missed menses , unspecified gestational age Ordered: 02/16/2024 [facility] Comment on above: Ordered: 02/16/2024 Hemoglobin A1c/Hemoglobin.total in Blood Hemoglobin A1c Lab Routine Missed menses , unspecified gestational age Ordered: 02/16/2024 [facility] Comment on above: Ordered: 02/16/2024 Hepatitis B virus surface Ag [Presence] in Serum or Plasma by Immunoassay Hepatitis B surface antigen Lab Routine Missed menses , unspecified gestational age Ordered: 02/16/2024 [facility] Comment on above: Ordered: 02/16/2024 Hepatitis C virus Ab [Presence] in Serum or Plasma by Immunoassay Hepatitis C antibody Lab Routine Missed menses , unspecified gestational age Ordered: 02/16/2024 [facility] Comment on above: Ordered: 02/16/2024 HIV-1/HIV-2 antigen/antibody combination immunoassay HIV-1 and HIV-2 antibodies Lab Routine Missed menses , unspecified gestational age Ordered: 02/16/2024 [facility] Comment on above: Ordered: 02/16/2024 Reagin Ab [Presence] in Serum by RPR RPR Lab Routine Missed menses , unspecified gestational age Ordered: 02/16/2024 [facility] Comment on above: Ordered: 02/16/2024 Rubella antibody, IgG Rubella an tibody, IgG Lab Routine Missed menses , unspecified gestational age Ordered: 02/16/2024 [facility] Comment on above: Ordered: 02/16/2024 UL-HHHQ-Umzonok e 200 Work Phone: NEGATED: Highlighted row has been ruled out! Planned Goals not documented JP-[id number]-Dmmudvyb 200 Work Phone: Immunizations Immunization Date Immunization Notes Care Provider Elina flores 10-25-2020 Pfizer-BioNTech COVI D-19 Vacc 30 MCG/0.3ML Intramuscular Suspension Rafaela Arguello Work Phone: [id number]-Yanutscs 200 Work Phone: 10-04-2020 Pfizer-BioNTech COVI D-19 Vacc 30 MCG/0.3ML Intramuscular Suspension Rafaela Arguello Work Phone: [id number]-Ywneppzh 200 Work Phone: Payers Date Payer Category Payer Self-pay [id number] [phone] [id number] 2022 Managed Care (Private) [facility] [id number] 2022 Private [facility] Insurance [employer] [place] [id number] 2020 Unknown 1987 Unknown [id number] 2.16.840.1.152662.3.579.2. 593 1987 Unknown [id number] 2.16.840.1.777326.3.579.2. 593 1987 Unknown [id number] 2.16.840.1.088231.3.579.2. 593 1987 Unknown [id number] 2.16.840.1.247104.3.579.2. 593 1987 Unknown [id number] 2.16.840.1.446259.3.579.2. 593 1987 Unknown [id number] 2.840.1.360725.3.579.2. 356 1987 Unknown [id number] 2.840.1.428529.3.579.2. 356 1987 Unknown [id number] 2.840.1.571872.3.579.2. 356 1987 Unknown [id number] 2.840.1.717811.3.579.2. 356 1987 Unknown [id number] 2.840.1.204618.3.579.2. 356 1987 Unknown [id number] 2.16.840.1.739677.3.579.2. 1244 1987 Unknown [id number] 2.840.1.394449.3.579.2. 124 1987 Unknown [id number] 2.840.1.927577.3.579.2. 1244 1987 Unknown [id number] 2.16840.1.363911.3.579.2. 1243 1987 Unknown [id number] 2.16840.1.341455.3.579.2. 1244 1987 Unknown [id number] 2.16840.1.504724.3.579.2. 124 1987 Unknown [id number] 2.16.840.1.981503.3.579.2. 1243 1987 Unknown [id number] 2.16.840.1.172042.3.579.2. 1243 1987 Unknown [id number] 2.16.840.1.837298.3.579.2. 1259 1987 Unknown [id number] 2.16.840.1.122412.3.579.2. 1259 1987 Unknown [id number] 2.16.840.1.783123.3.579.2. 1259 1987 Unknown [id number] 2.16.840.1.179833.3.579.2. 1259 1959 Unknown [id number] Unknown [id number] 2.16.840.1.073155.3.579.2. 531 Unknown [id number] 2.16.840.1.342128.3.579.2. 531 Social History Date Type Detail Facility Assertion Tobacco smoking consumption unknown (finding) [facility] [address] Work Phone: Start: 12-03-2022 End: 07-22-2023 Non-smoker Non-smoker [facility] Start: 02-19-2023 End: 09-05-2023 Tobacco smoking status NHIS Never smoked tobacco [facility] Start: 10-17-2021 End: 09-01-2023 Alcohol intake Current drinker of alcohol (finding) [facility] Start: 05-14-2010 History SDOH Alcohol Comment occasional [facility] Start: 1987 Sex Assigned At Not on file [facility] Start: 1987 Sex Assigned At Female [facility] Start: 12-03-2022 End: 07-22-2023 Sex Assigned At [facility] Tobacco smoking stat us NHIS Tobacco smoking consumption unknown [facility] Start: 12-09-2022 End: 01-05-2024 Exposure to SARS-CoV-2 (event) Not sure [facility] Start: 02-19-2023 Tobacco use and exposure Smokeless tobacco non-user [facility] Work Phone: Start: 02-19-2023 End: 01-05-2024 Alcohol intake Defer [facility] Work Phone: National Score (1-100), lower number is lower risk 52 [facility] Start: 01-09-2024 [facility] Start: 03-09-2024 Sex Female (finding) [facility] Functional Status Date Assessment Result Facility NEGATED: Highlighted row Functional performance Functional status health issues are not documented Disease [id number]-[id number]-Bpkg [address] [facility] Work Phone: Mental Status Date Assessment Result Facility NEGATED: Highlighted row Cognitive function [Interpretation] Cognitive status health issues are not documented Disease PS-NBIS-Sdmy [address] Work Phone: Clinical Notes 03-04-2012 to 03-16-2024 Bisi Nixon, SUZY - 03/16/2024 3:30 PM Filemon Dick, STABLE HELPER - 02/16/2024 8:30 AM Renuka Davison - 01/05/2024 11:45 AM EDTPatient Anil Man DO - 03/04/2023 8:40 AM EST Note Date & Type Note Facility 03-16-2024 History of Present illness Narrative Reason for Appointment: Patient ID: Michael Weller is a 38 y.o. female who presents for Routine Visit Patient presents today for Return OB appointment. MEDICATIONS Current Outpatient Medications Medication Instructions ondansetron ODT (ZOFRAN-ODT) 4 mg, Oral, Every 6 hours PRN promethazine (PHENERGAN) 12.5 mg, Oral, Every 6 hours PRN promethazine (PHENERGAN) 12.5 mg, Oral, Every 6 hours PRN, Take 1 tablet by mouth every 6 hours as needed for nausea. 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 SURGICAL HISTORY Past Surgical History: Procedure Laterality Date CHOLECYSTECTOMY 2009 CYST REMOVAL [address] IMAGING MELANOMA TONSILLECTOMY 1992 REVIEW OF SYSTEMS Review of Systems: Review of Systems Constitutional: Negative. HENT: Negative. Eyes: Negative. Respiratory: Negative. Cardiovascular: Negative. Gastrointestinal: Negative. Genitourinary: Negative. Musculoskeletal: Negative. Skin: Negative. Neurological: Negative. All other systems reviewed and are negative. Hematological: Negative. Endocrine: Negative. Allergic/Immunologic: Negative. OBJECTIVE Objective: Physical Exam Constitutional: Appearance: Normal appearance. She is well-developed. Cardiovascular: Rate and Rhythm: Normal rate and regular rhythm. Pulmonary: Effort: Pulmonary effort is normal. Breath sounds: Normal breath sounds. Abdominal: General: Bowel sounds are normal. There is no distension. Palpations: Abdomen is soft. Tenderness: There is no abdominal tenderness. There is no guarding or rebound. Musculoskeletal: General: No swelling. Normal range of motion. Right lower leg: No edema. Left lower leg: No edema. Neurological: Mental Status: She is alert and oriented to person, place, and time. Skin: General: Skin is warm and dry. Psychiatric: Mood and Affect: Mood normal. Behavior: Behavior normal. Vitals and nursing note reviewed. Exam conducted with a on line csr present. Vitals: Estimated body mass index is 34.58 kg/m as calculated from the following: Height as of 05/30/21: 5' 5 . Weight as of this encounter: 207 lb 12.8 oz. BP: 116/72 Patient's last menstrual period was 12/18/2023. ASSESSMENT & PLAN ICD-10-CM 1. First trimester Z34.91 POCT urinalysis dipstick manually resulted 2. 11 weeks gestation of Z3A.11 POCT urinalysis dipstick manually resulted 3. Antepartum multigravida of advanced maternal age O09.529 New OB: Patient presents today for 1st time obstetrics appointment with provider. Patient is currently 11w4d . Patients history has been reviewed in great detail including any potential risks. Patient stated she currently has no complaints. Expectations throughout regarding labs, ultrasounds, and appointments have been discussed with the patient in detail. It was reiterated that the patient is to drink 6-8 glasses of water a day, eat 6 small meals a day, do not consume raw or undercooked meat, and stay away from [facility]. Patient has been consulted regarding any further do's and don'ts of . Patient voiced understanding and all questions and concerns were answered. Pt was offered M referral for AMA, pt considering. Orders Placed This Encounter Procedures POCT urinalysis dipstick manually resulted Follow Up: Patient is to return in 4 weeks for routine OB appointment. Documented by Bisi Nixon LPN on behalf of: Matt Stapleton DO documented in this encounter [facility] 02-16-2024 History of Present illness Narrative Reason [...] [address]ING MELANOMA TONSILLECTOMY 1993 Allergies Allergen Reactions Cat Hair Extract Itching [...] or undercooked meat, and stay away from [facility]. Patient has also been advised to [...] Cathy Dick LPN documented in this encounter [facility] 01-05-2024 History of Present illness Narrative [...] Ketones, Urine NEGATIVE NEGATIVE mg/dl POC Specific [place], Urine 1.010 1.005 - 1.035 POC Blood, [...] pyelonephritis, Macrobid prescribed. She will take Azo beuh-aku-edcyrzk, acetaminophen, fluids, etc. Follow-up as needed. Patient [...] Davison 12:46 PM documented in this encounter [facility] Work Phone: 01-05-2024 Instructions Maryann Davison - 01/05/2024 11:45 AM EDT No signs of acute pyelonephritis, Macrobid prescribed. She will take Azo rsdr-yfi-rqvdflt, acetaminophen, fluids, etc. Follow-up as needed. Patient declined urine culture after counseling. documented in this encounter [facility] Work Phone: 09-01-2023 Note HNO ID: [id number] Author: ROULA BLEDSOE APRN.PROJECT MANAGEMENT IT SPECIALIST Service: ? Author Type: Nurse Practitioner Type: [...] Past Histories independently gathered by the clinical family support worker and the remaining scribed note accurately describes my personal service to the patient. Roula Bledsoe APRN.MARCELINA September 01, 2023 11:26 AM Medical Decision Making: Problems: Moderate: 2+ stable chronic illnesses Risk: Low: Low risk from testing/treatment Medical Decision Making Level: 3 - Low [facility] 09-01-2023 History of Present illness Narrative [...] brown firm sq nodule Densely scattered light almas macules noted on all sun exposed areas [...] Past Histories independently gathered by the clinical family support worker and the remaining scribed note accurately describes my personal service to the patient. Roula Bledsoe APRN.CNP September 01, 2023 11:26 AM Medical Decision Making: Problems: Moderate: 2+ stable chronic illnesses Risk: Low: Low risk from testing/treatment Medical Decision Making Level: 3 - Low documented in this encounter [facility] 07-22-2023 History of Present illness Narrative [...] 07/22/2023 3:01 PM documented in this encounter [facility] Work Phone: 04-27-2023 History of Present illness [...] 04/27/2023 4:18 PM documented in this encounter [facility] Work Phone: 03-04-2023 History of Present illness [...] LAD Reviewed Breast US from 2021 and 2023 w/ pt Recc she follow up with breast surgeon, she has established with Follow up for well woman exam Spring 2023 Advised pt to call sooner with any questions or concerns Karolina Man DO documented in this encounter [facility] Work Phone: 02-19-2023 History of Present illness Narrative Michael Weller 37 y.o. SUBJECTIVE HPI Michael 37-year-old young lady who was seen today for evaluation of a possible attention deficit disorder difficulty at work at home. 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 Signatures Electronically signed by : Bisi Prabhakar PT Reynold [facility]; Oct 16 2022 10:12AM EST (Author) [employer] 07-02-2022 Evaluation note Encounter Date Diagnosis Assessment [...] no improvement of pain. Given return precautions. [employer] Other 12-05-2022 Chief complaint Narrative - Reported* [...] virtual visit to discuss anxiety follow up CO-NYBY-Kzzviknx 200 Work Phone: 1(957) 749-338408-11-2022 History of Present illness Narrative* Roula Bledsoe APRN.PROJECT MANAGEMENT IT SPECIALIST - 10/17/2021 12:40 PM EDT SKIN EXAM [...] Past Histories independently gathered by the clinical family support worker and the remaining scribed note accurately describes my personal service to the patient. Roula Bledsoe APRN.CNP October 17, 2021 1:05 PM I spent a total of 15 minutes on the date of the service which included preparing to see the patient, khpb-ro-vloj patient care, completing clinical documentation, performing a medically appropriate examination, and counseling and educating the patient/family/caregiver. [facility] History of Present illness Narrative* MICHAEL [...] breast biopsy: right breast biopsy 2018 at [facility]- fibroepithelial lesion consistent with fibroadenoma * - breast surgery: no * - breast cancer:no * Menarche: 15 * AFLB: 22 * Menopause: no * HRT:no * Family history: both grandfathers with lung cancer * no history of breast or ovarian cancer [facility] Work Phone: 1(649) 972-547508-08-2022 History of Present illness Narrative* MICHAEL WELLER [...] breast biopsy: right breast biopsy 2018 at [facility]- fibroepithelial lesion consistent with fibroadenoma * - breast surgery: no * - breast cancer:no * Menarche: 15 * AFLB: 22 * Menopause: no * HRT:no * Family history: both grandfathers with lung cancer * no history of breast or ovarian cancer [facility] Work Phone: 1(884) 524-264608-02-2022 Chief complaint Narrative - Reported* An interactive [...] trazodone not helping Jose [address] Work Phone: 1(916) 964-888808-02-2022 Chief complaint Narrative - Reported* An interactive [...] visit to discuss insomnia, trazodone not helping [facility] Work Phone: 1([phone]) 612-638605-06-2022 [place]The [place], [place] NAME: JANEE MICHAEL Schroeder DATE OF : MEDICAL REC#: [id number] CATTLE BROKER: Addy [facility] DATE: 07/12/2021 09:46:00 VISUAL BASIC PROGRAMMER DATE: 07/13/2021 21:00 DICTATING PHYSICIAN: MATT STAPLETON DICTATION DATE: 07/12/2021 12:00 OPERATIVE NOTE OPERATION DATE: 07/12/2021 PROCEDURE: Diagnostic laparoscopy. PREOPERATIVE DIAGNOSIS: Dyspareunia. POSTOPERATIVE DIAGNOSIS: Dyspareunia. ANESTHESIA: General. SURGEON: Matt Stapleton D.O. SPLITTER HAND: CLIFF Durán URINE OUTPUT: Yellow and clear. [...] Stapleton DO on 07/15/2021 03:07 PM EDT [facility] Signed and Approved by: DR MATT STAPLETON . 07/15/2021 15:07:00[facility]12-27-2012 History general Narrative - Reported* Type Description Date Medical History 03-04-12 Pathology Report [facility] Surgical History left hip surgery Surgical History tonsillectomy and adenoidectomy Surgical History cholecystectomy Surgical History wisdom teeth Surgical History tumor [employer] Other Evaluation note* Diagnosis Lentigines- Primary Other dyschromia Multiple benign nevi Benign neoplasm of skin, site unspecified Valles angioma Nevus, non-neoplastic Exposure to tanning bed, sequela Hx of malignant melanoma Personal history of malignant melanoma of skin Dermatofibroma Benign neoplasm of skin, site unspecified documented in this encounter [facility]No assessment [facility] Work Phone: Evaluation note* Diagnosis Abnormal mammogram Abnormal mammogram, unspecified documented in this encounter [facility] Work Phone: Evaluation note* Diagnosis Lump in female breast Lump or mass in breast documented in this encounter [facility] Work Phone: Evaluation note* Diagnosis Encephalopathy- Primary Unspecified encephalopathy Anxiety Anxiety state, unspecified Attention deficit hyperactivity disorder (ADHD), predominantly inattentive type documented in this encounter [facility] Work Phone: Evaluation note* Diagnosis Anxiety Anxiety state, unspecified documented in this encounter [facility] Work Phone: Evaluation note* Diagnosis Encephalopathy- Primary Unspecified encephalopathy Attention deficit hyperactivity disorder (ADHD), 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, unspecified Anxiety Anxiety state, unspecified documented in this encounter [facility] Work Phone: Evaluation note* Diagnosis Dermatofibroma- Primary Benign neoplasm of skin, site unspecified Lentigines Other dyschromia Multiple benign nevi Benign neoplasm of skin, site unspecified Valles angioma Nevus, non-neoplastic Hx of malignant melanoma Personal history of malignant melanoma of skin [facility] Diagnosis Onset Date Resolution Status UTI (urinary tract infection) [facility] Work Phone: Evaluation note* Diagnosis Acute lower UTI- Primary Urinary tract infection, site not specified Urine frequency documented in this encounter [facility] Work Phone: Evaluation note* Diagnosis Missed menses , unspecified gestational age Encounter for supervision of normal first in first trimester [facility] Diagnosis First trimester state, incidental 11 weeks gestation of Antepartum multigravida of advanced maternal age documented in this encounter [facility] Healthcare[facility] of [...] area gets bumped. 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 [...] for walks, read books. No regular exercise. UH-IIGU-Mogcginr 200 Work Phone: History of Present illness [...] area gets bumped. 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 [...] for walks, read books. No regular exercise. [facility] Work Phone: History of Present [...] area gets bumped. 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 [...] for walks, read books. No regular exercise. [employer] Work Phone: History of Present illness Narrative* [...] redness or discharge from lumps. 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 [...] past, but this made her sleep worse. IG-IPAI-Puwcmzov 200 Work Phone: History of Present illness [...] discharge from lumps. 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 [...] past, but this made her sleep worse. [facility] Work Phone: History of Present illness Narrative* Patient presents to clinic with complaints of pain during sex and mild Ricardo. Her assessment was significant for mild strength deficits and decreased movement of her pelvic floor. Patient will benefit from skilled PT to address these impairments. * Clinical Presentation: Stable and/or uncomplicated characteristics. * Level of Complexity: low [facility] Work Phone: History of Present illness [...] urology for painful intercourse. Planning physical therapy. II-TTWD-Lvvigoow 200 Work Phone: History of Present illness [...] urology for painful intercourse. Planning physical therapy. [facility] Work Phone: History of Present [...] been able to have these done yet. VD-BBKB-Fgissren 200 Work Phone: Instructions* Name Dates Details Instructions not documented LP-Ttkuuhkwwdfiiu-Clnttynw Work Phone: Family History No Family History [...] Time Advance Directives No October 09 2:01pm Advance Directive Response Recorded Date/ Time Advance Directives No October 09 1:01pm Chief Complaint and Reason for Visit Chief Complaint Health Screening Chief Complaint foot pain Chief Complaint possible uti Reason for Visit UTI (urinary tract i nfection) Chief Complaint Admit Date Unknown March 08, 2024 11:35am Reason for Referral Specialty Diagnoses / Procedures Referred By Contac t Referred To Contact Radiology Diagnoses Lump in female breast Procedures [place] [address] [place] [address] Referral ID Status Reason Start Date Expiration Date Visits Requested Visits Authorized [id number] Pending Review Perform Procedure 3 06/17/2023 1 1 Additional Source Comments INFORMATION SOURCE (unrecogn ized section and content) DATE CREATED AUTHOR [facility]/19/2021 [facility] DATE CREATED AUTHOR AUTHOR'S ORGANIZ ATION 10/16/2021 [facility] DATE CREATED AUTHOR AUTHOR'S ORGANIZ ATION 03/02/2022 [facility] DATE CREATED AUTHOR AUTHOR'S ORGANIZ ATION 10/17/2022 [facility] DATE CREATED AUTHOR AUTHOR'S ORGANIZ ATION 12/11/2022 [facility] DATE CREATED AUTHOR AUTHOR'S ORGANIZ ATION 07/25/2023 [facility] DATE CREATED AUTHOR AUTHOR'S ORGANIZ ATION 09/03/2023 [facility] DATE CREATED AUTHOR AUTHOR'S ORGANIZ ATION 11/14/2023 [facility] DATE CREATED AUTHOR AUTHOR'S ORGANIZ ATION 01/06/2024 [facility] DATE CREATED AUTHOR AUTHOR'S ORGANIZ ATION 03/10/2024 [facility] DATE CREATED AUTHOR AUTHOR'S ORGANIZ ATION 03/22/2024 [facility] EPIC Reason for Visit (unrecogniz ed section and content) Reason Comments Full Body Skin Check Specialty Diagnoses / Procedures Referred By Contac t Referred To Contact Radiology Diagnoses Abnormal mammogram Procedures BI mammo bilateral diagnostic tomosynthesis [place] [address] [facility] [address] [place] [address] Referral ID Status Reason Start Date Expiration Date Visits Requested Visits Authorized [id number] Pending Review Perform Procedure 12/03/2022 06/01/2023 1 1 Specialty Diagnoses / Procedures Referred By Contac t Referred To Contact Radiology Diagnoses Lump in female breast Procedures [place] [address] [facility] [address] [place] [id number] Referral ID Status Reason Start Date Expiration Date Visits Requested Visits Authorized [id number] Pending Review Perform Procedure 3 06/17/2023 1 1 Reason Comments New Patient Visit NPV- ADHD Specialty Diagnoses / Procedures Referred By Contac t Referred To Contact Neurology Diagnoses Anxiety Procedures SD OFFICE/OUTPATIENT NEW HIGH MDM 60-[place] [address] [place] [phone] Jhonny Issa MD [address] [facility], [address] [place] [address] Referral ID Status Reason Start Date Expiration Date Visits Requested Visits Authorized [id number] Pending Review Specialty Services Required 12/03/2022 06/01/2023 1 1 Reason Comments Follow-up 3 month FU. Reason Comments Encephalopathy FU. Reason Comments UTI 2 days Reason Comments Amenorrhea Reason Comments Routine Visit Source Comments (unrecognize d section and content) In the event this informatio n is protected by the Federal Confidentiality of Alcohol and Drug Abuse Patient Records regulations: The Federal rules restrict any use of the information to criminally investigate or prosecute any alcohol or drug abuse patient.[facility] the event this information is protected by the Federal Confidentiality of Alcohol and Drug Abuse Patient Records regulations: The Federal rules restrict any use of the information to criminally investigate or prosecute any alcohol or drug abuse patient.[facility] Care Teams (unrecognized sec tion and content) User Experience Lead Relationship Specialty Start Date End Date Danielle Infante [address] [facility] [address] [place] [address] PCP - General Family Practice 06/10/16 Team Status: Inactive Member Role Status Dates Danielle Infante DO Primary Care Provider Active Kp Alvares DO [facility] Attending Provider Active Team Status: Active Member Role Status Dates Danielle Infante DO Primary Care Provider Active Team Status: Inactive Member Role Status Dates Danielle Infante , Primary Care Provider Active Bolivar Sherman , ASHLY-C Attending Provider Activ e User Experience Lead Relationship Specialty [place] [address] [facility] [address] [place] [address] PCP - General Family Medicine 10/29/22 User Experience Lead Relationship Specialty [place] [id number] [facility] [address] [place] [address] PCP - General Family Medicine 10/29/22 User Experience Lead Relationship Specialty [place] [address] [facility] [address] [place] [address] PCP - General Family Medicine 10/29/22 User Experience Lead Relationship Specialty [place] [address] [facility] [address] [place] [address] PCP - General Family Medicine 10/29/22 Jhonny Issa MD [address] [facility], [address] [address] Consulting Physician Neurology 02/19/23 User Experience Lead Relationship Specialty [place] [address] [facility] [address] [place] [address] PCP - General Family Medicine 10/29/22 Jhonny Issa MD [address] [facility], [address] [address] Consulting Physician Neurology 02/19/23 User Experience Lead Relationship Specialty [place] [address] [facility] [address] [place] [address] PCP - General Family Medicine 10/29/22 [place] [address] [facility] [address] [place] [address] PCP - MMO ACO PCP 03/09/23 Jhonny Issa MD [address] [facility], [address] [address] Consulting Physician Neurology 02/19/23 User Experience Lead Relationship Specialty Start Date End Date Danielle Infante, [address] [facility] [address] [place] [address] PCP - General Family Medicine 06/10/16 Team [...] September 05, 2023 End: September 05, 2023 User Experience Lead Relationship Specialty Start Date End Date Jhonny Issa MD [address] [facility], [address] [place] [address] Consulting Physician Neurology 02/19/23 User Experience Lead Relationship Specialty Start Date End Date Danielle Infante DO [address] [facility] [address] [place] [address] PCP - General Family Medicine 07/15/22 User Experience Lead Relationship Specialty Start Date End Date Danielle Infante DO [address] [facility] [address] [place] [address] PCP - General Family Medicine 07/15/22 User Experience Lead Relationship Specialty Start Date End Date Danielle Infante DO [address] [facility] [address] [place] [address] PCP - General Family Medicine 07/15/22 User Experience Lead Relationship Specialty Start Date End Date Danielle Infante DO [address] [facility] [address] [place] [address] PCP - General Family Medicine 07/15/22 User Experience Lead Relationship Specialty Start Date End Date Danielle Infante DO [address] [facility] [address] [place] [address] PCP - General Family Medicine 07/15/22 User Experience Lead Relationship Specialty Start Date End Date Danielle Infante DO [address] [place] [address] PCP - General Family Medicine 07/15/22 Team Status: Inactive Member Role Status Dates Matt Stapleton DO Attending Provider Active Start : March 08, 2024 End: March 08, 2024 User Experience Lead Relationship Specialty Start Date End Date Danielle Infante DO [address] [place] [address] PCP - General Family Medicine 07/15/22 Goals [...] BE BASED ON THE PRIMARY CLINICAL RECORDS. [employer] provides no warranty or guarantee of the accuracy or completeness of information in this document.
--- NOTE | 2024-03-31 17:31 | US_ITS ---
The [address] [address] Patient Name: MICHAEL ROQUE MRN: [id number] date: 1985 Sex: F Assigned Patient Location: ER Current Patient Location: ER Accession/Order Number: [id number] Exam Date: 03/31/2024 18:09 Report Date: 03/31/2024 20:23 At the request of: BRANDEN COURTNEY Procedure: US OB <= 14 weeks fetus EXAMINATION: US OB <= 14 weeks fetus HISTORY: Abd pain; 14 wks COMPARISON: No relevant comparison available. FINDINGS: GESTATIONAL SAC: Present and normal appearing. YOLK SAC: Absent POLE: Present and normal appearing. CARDIAC: 155 bpm UTERUS: Normal size and appearance. Unremarkable placenta; no abruption or subchorionic hematoma. OVARIES: Right: Not seen. Left: Not seen. CUL-DE-SAC: Normal. OTHER: None. AGE BY LMP: 13 weeks 5 days AMALIA BY LMP: 10/01/2024 AGE BY US CRL: 14 weeks 1 day AMALIA BY US CRL: 09/28/2024 US/US OB <= 14 weeks fetus IMPRESSION: 1. Single live intrauterine . 2. No acute or suspicious findings to account for patient's symptoms. Electronically authenticated by: NOEMI LOU Date: 03/31/2024 20:23
--- NOTE | 2024-03-31 17:32 | US_ITS ---
[address] [address] Patient Name: MICHAEL ROQUE MRN: [id number] date: 1985 Sex: F Assigned Patient Location: ER Current Patient Location: [facility] Accession/Order Number: [id number] Exam Date: 03/31/2024 18:09 Report Date: 03/31/2024 20:19 At the request of: BRANDEN COURTNEY Procedure: US right upper quadrant EXAMINATION: US right upper quadrant HISTORY: RUQ pain; hx cholecystectomy COMPARISON: No relevant comparison available. TECHNIQUE: Transabdominal evaluation of the right upper quadrant. FINDINGS: LIVER: Incidental 1.2 cm cyst within right hepatic lobe. Color Doppler demonstrates patent hepatic veins. PORTAL VEIN: Duplex Doppler demonstrates normal hepatopetal flow pattern with flow velocity averaging 56 cm/s. GALLBLADDER: Cholecystectomy. BILIARY: No abnormal dilation or stones. Common bile duct diameter is within normal limits. PANCREAS: Limited evaluation. No visible mass, abnormal atrophy, or duct dilation. KIDNEY: No hydronephrosis. No visible mass or stones. Size: 11.8 x 5.7 x 4.9 cm US/US right upper quadrant IMPRESSION: 1. No acute or suspicious findings to account for patient's symptoms. 2. Prior cholecystectomy. No abnormal duct dilation. Electronically authenticated by: NOEMI LOU Date: 03/31/2024 20:19
--- NOTE | 2024-03-31 17:36 | ED.ABDPAIN1 ---
HPI - Abdominal Pain General Chief Complaint: Abdominal Pain Stated Complaint: 14 wks,cramping/gallbladder type pain-d.w. [facility] ed seen Time Seen by Provider: 03/31/24 17:28 Source: patient Mode of arrival: walk-in History of Present Illness HPI narrative: 38 year old female presents to the ED for RUQ pain. Onset was this afternoon. States it feels like a gallbladder attack. She has had a cholecystectomy. Reports she is 14 weeks . She is . Denies fever, chills, injury, diarrhea, urinary sx. Denies vaginal bleeding or discharge. Reports intermittent N/V which has been ongoing with this . Related Data Home Medications ?Medication ?Instructions ?Recorded ?Confirmed ondansetron 4 mg disintegrating mg PO Q6H PRN nausea and vomiting 03/31/24 tablet promethazine 12.5 mg tablet 12.5 mg PO Q6H PRN nausea and 03/31/24 03/31/24 vomiting Allergies Allergy/AdvReac Type Severity Reaction Status Date / Time loracarbef (From Lorabid) Allergy Severe infection Verified 02/26/24 17:23 in hip NSAIDS (Non-Steroidal AdvReac Severe medical Verified 02/26/24 17:23 Anti-Inflamma Review of Systems ROS Constitutional Denies: fever or chills Ears, nose, mouth, and throat Denies: neck pain Cardiovascular Denies: chest pain Respiratory Denies: shortness of breath Gastrointestinal Reports: abdominal pain, nausea and vomiting; Denies: diarrhea Genitourinary Denies: painful urination, urinary frequency, urinary urgency, urinary incontinence, blood in urine, vaginal bleeding or vaginal discharge Musculoskeletal Denies: back pain or neck pain Integumentary/Breast Denies: rash Neurological Denies: headache, weakness in extremities or dizziness PFSH PFSH Social History Little interest or pleasure in doing things: not at all Feeling down, depressed, or hopeless: not at all Exam Constitutional Vital Signs, click to edit/add: Last Vital Signs Temp 97.9 F 03/31/24 17:18 Pulse 96 H 03/31/24 20:41 Resp 16 03/31/24 20:41 BP 137/63 03/31/24 20:41 Pulse Ox 99 03/31/24 20:41 O2 Del Method Room Air 03/31/24 20:41 Common normals: no apparent distress and oriented x3 General appearance: cooperative Eye Common normals: conjunctivae normal and no scleral icterus Neck & C-Spine Common normals: supple Chest Chest: symmetrical chest wall rise Respiratory Common normals: normal respiratory effort Effort & inspection: able to speak in complete sentences and symmetric chest movement Auscultation: no wheezes Cardio Common normals: regular rate and regular rhythm GI Common normals: soft to palpation and non-tender Neuro Common normals: oriented x3 and moves all extremities Sensorium/orientation: awake and alert Course Vital Signs Vital signs: Vital Signs Temperature 97.9 F 03/31/24 17:18 Pulse Rate 98 H 03/31/24 17:18 Respiratory Rate 18 03/31/24 17:18 Blood Pressure 132/74 03/31/24 17:18 Pulse Oximetry 97 03/31/24 17:18 Oxygen Delivery Method Room Air 03/31/24 17:18 Temperature 97.9 F 03/31/24 17:18 Pulse Rate 96 H 03/31/24 20:41 Respiratory Rate 16 03/31/24 20:41 Blood Pressure 137/63 03/31/24 20:41 Pulse Oximetry 99 03/31/24 20:41 Oxygen Delivery Method Room Air 03/31/24 20:41 MDM - Abdominal Pain MDM Narrative Medical decision making narrative: Urinalysis, CBC, and CMP were unremarkable. heart tones were obtained and were unremarkable. RUQ and OB ultrasound showed no acute or suspicious findings to account for patient's symptoms. Findings were discussed. She was encouraged to follow up with her INSURANCE ASSOCIATE for a recheck, further evaluation and treatment. Differential Diagnosis Differential diagnosis: Likely abdominal pain and other Medical Records Attestation: I reviewed the patient's medical records. Lab Data Attestation: I reviewed the patient's lab results. Labs: Lab Results 03/31/24 03/31/24 Range/Units 17:40 17:43 WBC 11.4 H (4.0-11.0) 10^3/uL RBC 4.00 L (4.20-5.40) 10^6/uL Hgb 11.4 L (12.0-16.0) g/dL Hct 34.2 L (36.0-48.0) % MCV 85.5 (81.0-99.0) fL MCH 28.5 (26.7-34.0) pg MCHC 33.3 (29.9-35.2) g/dL RDW 13.3 (11.0-15.0) % Plt Count 178 (150-450) 10^3/uL MPV 12.3 (9.5-13.5) fL Neut % (Auto) 77.9 H (43.0-75.0) % Lymph % (Auto) 16.1 L (20.5-60.0) % Castro % (Auto) 5.3 (1.7-12.0) % Eos % (Auto) 0.0 L (0.9-7.0) % Baso % (Auto) 0.3 (0.2-2.0) % Neut # (Auto) 8.8 H (1.4-6.5) 10^3/uL Lymph # (Auto) 1.8 (1.2-3.8) 10^3/uL Castro # (Auto) 0.6 (0.3-0.8) 10^3/uL Eos # (Auto) 0.0 (0.0-0.7) 10^3/uL Baso # (Auto) 0.0 (0.0-0.1) 10^3/uL Abs Immat Gran (auto) 0.05 H (0.00-0.03) 10^3/uL Imm/Tot Granulo (auto) 0.4 (0.0-0.5) % Sodium 136 (136-145) mmol/L Potassium 3.6 (3.5-5.1) mmol/L Chloride 100 (98-107) mmol/L Carbon Dioxide 27.7 (21.0-32.0) mmol/L Anion Gap 11.9 BUN 7.0 (7.0-18.0) mg/dL Creatinine 0.51 L (0.55-1.02) mg/dL Est GFR ( Amer) >60 (>=60 mL/min/1.73m^2) Est GFR (Non-Af Amer) >60 (>=60 mL/min/1.73m^2) BUN/Creatinine Ratio 13.7 Glucose 110 H (74-106) mg/dL Calcium 8.5 (8.5-10.1) mg/dL Total Bilirubin 0.2 (0.2-1.0) mg/dL AST 16 (15-37) U/L ALT 29 (14-59) U/L Alkaline Phosphatase 60 (46-116) U/L Total Protein 6.7 (6.4-8.2) g/dL Albumin 2.9 L (3.4-5.0) g/dL Globulin 3.8 g/dL Albumin/Globulin Ratio 0.8 Lipase 31.0 (16.0-77.0) U/L Urine Color Yellow (YELLOW) Urine Clarity Clear (CLEAR) Urine pH 6.0 (5.0-9.0) Ur Specific [place] 1.025 (1.005-1.025) Urine Protein Negative (NEG/TRACE) mg/dL Urine Glucose (UA) Negative (NEGATIVE) mg/dL Urine Ketones Negative (NEGATIVE) mg/dL Urine Occult Blood Negative (NEGATIVE) Urine Nitrite Negative (NEGATIVE) Urine Bilirubin Negative (NEGATIVE) Urine Urobilinogen 0.2 (0.2-1.0) EU/dL Ur Leukocyte Esterase Negative (NEGATIVE) Urine RBC 0-2 (0-2) #/HPF Urine WBC None seen (NONE SEEN) #/HPF Ur Squamous Epith Cells Few A (NONE/RARE) #/LPF Urine Crystals None seen (None Seen) #/HPF Urine Bacteria Trace A (NONE SEEN) #/HPF Urine Casts None seen (NONE SEEN) #/LPF Urine Mucus Trace A (NONE SEEN) Imaging Data US: Attestation: I have reviewed the pertinent imaging results. Radiologist's impression: ITS Impressions Ultrasound 03/31/24 17:31 IMPRESSION: 1. Single live intrauterine . 2. No acute or suspicious findings to account for patient's symptoms. Electronically authenticated by: NOEMI LOU Date: 03/31/2024 20:23 Upper Quadrant Ultrasound 03/31/24 17:32 IMPRESSION: 1. No acute or suspicious findings to account for patient's symptoms. 2. Prior cholecystectomy. No abnormal duct dilation. Electronically authenticated by: NOEMI LOU Date: 03/31/2024 20:19 Discharge Plan Discharge Chief Complaint: Abdominal Pain Clinical Impression: Abdominal pain during Patient Disposition: Home, Self-Care Time of Disposition Decision: 20:35 Condition: Good Mode of Transportation: Private Vehicle Prescriptions / Home Meds: No Action promethazine 12.5 mg tablet 12.5 mg PO Q6H PRN (Reason: nausea and vomiting) ondansetron 4 mg tablet,disintegrating PO Q6H PRN (Reason: nausea and vomiting) Print Language: Japanese Instructions: Abdominal Pain in (ED) Additional Instructions: Return to the ER for worsening symptoms. Referrals: Matt Stapleton DO [Primary Care Provider] - 1 week Physician,Non-Staff, [Physician] - 1 week Discharge Date/Time: 03/31/24 20:42
[2024-03-31] MEDS: 0.9 % SODIUM CHLORIDE 1,000 ML 1000 ML IV (17:49)
[2024-03-31 18:06] LABS: Bilirubin Urine NEGATIVE (NEGATIVE); Blood Urine NEGATIVE (NEGATIVE); Clarity Urine CLEAR (CLEAR); Color Urine YELLOW (YELLOW); Glucose Urine UA NEGATIVE (NEGATIVE); Ketones Urine NEGATIVE (NEGATIVE); Leukocyte Esterase Urine NEGATIVE (NEGATIVE); Nitrite Urine NEGATIVE (NEGATIVE); Protein Urine NEGATIVE (NEG/TRACE); Specific Gravity Urine 1.025 (1.005-1.025); Urobilinogen Urine 0.2 EU/dL (0.2-1.0)
[2024-03-31 18:06] LABS: Basophils Percent Auto 0.3 % (0.2-2.0); Hematocrit 34.2 % (36.0-48.0); Hemoglobin 11.4 g/dL (12.0-16.0); Immature Granulocytes Abs Auto 0.05 10^3/uL (0.00-0.03); Immature Granulocytes Pct Auto 0.4 % (0.0-0.5); Lymphocytes Absolute Auto 1.8 10^3/uL (1.2-3.8); Lymphocytes Percent Auto 16.1 % (20.5-60.0); Mean Corpuscular HGB Conc 33.3 g/dL (29.9-35.2); Mean Corpuscular Hemoglobin 28.5 pg (26.7-34.0); Mean Corpuscular Volume 85.5 fL (81.0-99.0); Mean Platelet Volume 12.3 fL (9.5-13.5); Monocytes Absolute Auto 0.6 10^3/uL (0.3-0.8); Monocytes Percent Auto 5.3 % (1.7-12.0); Neutrophils Absolute Auto 8.8 10^3/uL (1.4-6.5); Neutrophils Percent Auto 77.9 % (43.0-75.0); Platelet Count 178 10^3/uL (150-450); Red Cell Distribution Width 13.3 % (11.0-15.0); White Blood Count 11.4 10^3/uL (4.0-11.0)
[2024-03-31 18:15] LABS: Bacteria Urine TRACE #/HPF (NONE SEEN); Cast Seen? NONE SEEN #/LPF (NONE SEEN); Crystals Seen? None Seen #/HPF (None Seen); Mucus Urine TRACE (NONE SEEN); RBC Urine 0-2 #/HPF (0-2); Squamous Epithelial Cell Urine FEW #/LPF (NONE/RARE); WBC Urine NONE SEEN #/HPF (NONE SEEN)
[2024-03-31 18:21] LABS: Alanine Aminotransferase 29 U/L (14-59); Albumin Globulin Ratio 0.8; Albumin Level 2.9 g/dL (3.4-5.0); Alkaline Phosphatase 60 U/L (46-116); Anion Gap 11.9; Aspartate Amino Transferase 16 U/L (15-37); BUN Creatinine Ratio 13.7; Bilirubin Total 0.2 mg/dL (0.2-1.0); Calcium 8.5 mg/dL (8.5-10.1); Carbon Dioxide 27.7 mmol/L (21.0-32.0); Chloride 100 mmol/L (98-107); Estimated GFR (African America >60 (>=60 mL/min/1.73m^2); Estimated GFR (Non-African Ame >60 (>=60 mL/min/1.73m^2); Globulin 3.8 g/dL; Glucose 110 mg/dL (74-106); Potassium 3.6 mmol/L (3.5-5.1); Sodium 136 mmol/L (136-145); Total Protein 6.7 g/dL (6.4-8.2)
[2024-03-31 19:08] VITALS: BP 115/44; PULSE 61; O2SAT 97
[2024-03-31 20:41] VITALS: BP 137/63; PULSE 96; O2SAT 99
== END 2024-03-31 20:42 | disposition home or self-care (01) ==
PROVIDERS: Nurse Practitioner Family; Emergency Provider Emergency Medicine; PCP Obstetrics & Gynecology
DX: O99.891 Other specified diseases and conditions complicating pregnancy (principal); R10.11 Right upper quadrant pain; Z3A.14 14 weeks gestation of pregnancy; Z90.49 Acquired absence of other specified parts of digestive tract
CPT/HCPCS: 36415; 76705; 76801; 80053; 81001; 83690; 85025; 99285

== ENCOUNTER 2024-05-03 16:31 | Outpatient (OUT) | payer OTHER, MEDICAID, SELFPAY ==
--- OUTSIDE RECORDS SUMMARY | 2024-05-03 16:39 | XMS_ITS | CCD ---
Author Organization [facility] Care Team Providers Care Clin Nurse Name Role Phone Rafaela Arguello Unavailable [place] [id number], [facility] Unavailable Unavailable Rafaela Arguello Unavailable Unavailable Zackary Goemz Unavailable Unavailable Rafaela Arguello Unavailable Unavailable Rafaela [...] Care Provider DO Kp Alvares Attending Provider [phone] Hema, Ms. Rafaela Schultz Referring Aisha Arguello, Ms. Rafaela Schultz Primary Care Unavai labtaryn Arguello, Ms. Rafaela Schultz Attending Unavai lable Hema, [...] Aguilar, Luz Coombs Attending Unavailable Hema, MsJonathan Schulzt Primary Care Aisha Aguilar, Luz Malvin Attending Unavailable Lauren, Luz Coombs Referring Unavailable Bolivar Sherman Unavailable DO Danielle Infante Primary Care Provider SCOTT Sherman Attending Provider Karolina Man DO Primary Care Provider Jhonny Issa MD Unavailable Donovan SORIA, Karolina [...] Azael kaye Andersen, LAYNE Avila Attending Provider [phone] KAROLINA MAN Referring Unavailable KAROLINA MAN Primary Care Unavailable KAROLINA MAN Referring Unavailable KAROLINA MAN Primary Care Unavailable MARYANN DAVISON Attending Unava ilDanielle Villalobos DO Primary Care Provider Matt Stapleton Attending Unavailable Matt Stapleton Admitting Unavailable NO FAMILY, PHYSICIAN Primary Care Unavailable Swetha Andersen Attending Unavailable Swetha Andersen Admitting Unavailable Matt Stapleton DO Attending Provider MERARY WILCOX Attending Unavailable MATT STAPLETON Attending Unavailable MATT STAPLETON Attending Unavailable MATT STAPLETON Attending Unavailable Allergies Allergy Classification Reported Allergen(s) Allergy Type Date of Onset Reaction(s) Facility Cephalosporins (antibiotic) (1 source) loracarbef Drug Allergy [facility] Work Phone: Latex (1 source) natural latex rubber Substance Allergy [facility] Work Phone: NSAIDs (1 source) NSAIDs Drug Allergy [facility] Work Phone: (20 sources) loracarbef; Translations: [loracarbef] Drug Allergy 08-29-19 23 Unknown [id number] Work Phone: (20 sources) natural latex rubber; Translations: [LATEX] Allergy to substance (finding) 08-29-19 23 [facility] 3 Repository (20 sources) NSAIDs; Translations: [NSAIDs] Allergy to drug (finding) Unknown [id number] [facility] Work Phone: (20 sources) Animal dander - Cats Allergy to substance (finding) [id number] Work Phone: (2 sources) Latex Drug allergy (disorder) [facility] Repository (1 source) loracarbef Drug Allergy [facility] Repository (5 sources) NSAIDs; Translations: [NSAIDS (NON-STEROIDAL ANTI-INFLAMMATOR Y DRUG)] Drug allergy (disorder) 06-11-19 17 [facility] Repository (7 sources) Non-steroidal anti-inflammator y agent Propensity to adverse reactions to drug 06-11-19 17 Other: See Comments, Other [facility] (8 sources) Latex Propensity to adverse reactions 08-29-19 23 Unknown, Rash [employer] Other (16 sources) Cat Dander; Translations: [CAT DANDER] Allergy to substance 11-29-19 Unknown, Itching [facility] (4 sources) NSAIDS (Non-Steroidal Anti-Inflamma; Translations: [NSAIDS (Non-Steroidal Anti-Inflamma] Allergy to substance 09-05-19 Itching [facility] (3 sources) CAT HAIR STANDARDIZED ALLERGENIC EXTRACT; Translations: [CAT HAIR STANDARDIZED ALLERGENIC EXTRACT] Propensity to adverse reactions to drug (disorder) 11-29-19 Itching [place] [address] Repository (11 sources) Latex Allergy to substance 08-29-19 Rash [facility] (11 sources) Non-steroidal anti-inflammator y agent Drug Allergy 06-11-19 Other, Unknown, Itching [facility] (5 sources) Cat Hair Extract Allergy to substance 11-29-19 Itching [facility] (1 source) Latex Drug allergy (disorder) 09-05-19 [facility] Repository Medications Current Medications Medication Drug Class(es) [...] DAY Quantity: 90 Refills: 2 Ordered: 17-Mar-2022 [id number] LAYNE-MARCELINARafaela Start : 08-Oct-2021 Active take 1 tablet [...] Start: 09-05-2023 take 1 capsule by mo uth twice daily Cephalexin 500 mg capsule Active [...] 1 tablet by mouth once daily drospirenone-e.estradioL-lm.FA (Ronakaz, Lalitha) 3-0.02-0.451 mg (24) (4) Take 1 tablet by mouth once daily. 0 07/18/2010 03/04/2023 Discontinued (Med List Cleanup) Start: 07-18-2010 take 1 tablet by didi th once daily drospirenone-e.estradioL-lm.FA (Bayaz, Lalitha) 3-0.02-0.451 mg (24) (4) Take 1 tablet by mouth once daily. 0 07/18/2010 Active Start: 07-18-2010 take 1 tablet by didi th once daily drospir-eth estra-levomefol Ca (BEYAZ) 3-0.02-0.451 mg (24) ORAL Tab Take 1 tablet by mouth once daily. 0 07/18/2010 Active Comment on above: Take 1 tablet by diid th once daily. metoclopramide 10 mg oral tablet (2 sources) Dopamine-2 Receptor Antagonist Start: End: metoclopramide (Reglan) 10 MG tablet Indications: Nausea Take 1 tablet (10 mg) by mouth in the morning and 1 tablet (10 mg) at noon and 1 tablet (10 mg) in the evening. Take before meals. Take 1 tablet by mouth 30 minutes prior to meals 3 times daily as needed for nausea.. 90 tablet 3 04/14/2024 05/14/2024 Active MULTI-VITAMIN ORAL (2 sources) MULTI-VITAMIN OR AL Take by mouth. 0 Active Comment on above: Take by mouth. nitrofurantoin, macrocrystals 25 mg / nitrofurantoin, monohydrate 75 mg oral capsule (2 sources) Nitrofuran Antibacterial Start: End: take 1 capsule by mouth in the morning nitrofurantoin, macrocrystal-monohydr ate, (Macrobid) 100 MG capsule Indications: Urinary tract [...] DAILY. Refills: 0 Start : 17-Jul-2017 Active ondansetron 4 mg disintegrating oral tablet (9 sources) Serotonin-3 Receptor Antagonist Start: 02-12-2024 End: 04-14-2024 take 1 tablet by mouth every six hours for nausea ondansetron ODT (Zofran-ODT) 4 MG disintegrating tablet Indications: Nausea and vomiting in Take 1 tablet (4 mg) by mouth every 6 (six) hours if needed for nausea or vomiting for up to 30 doses 30 tablet 2 02/29/2024 04/14/2024 Discontinued Probiotic CAPS (20 sources) Probiotic CAPS Quantity: 0 Refills: 0 Ordered: 07-Dec-2019 DO Active promethazine hydrochloride 12.5 mg oral tablet (14 sources) Phenothiazine Start: 02-16-2024 End: 05-16-2024 take [...] needed for nausea. 30 tablet 2 02/29/2024 04/14/2024 Discontinued Vitamin E GEL (2 sources) Vitamin E GEL Refills: 0 Active Vitamin E GEL (20 sources) Vitamin E GEL Quantity: 0 Refills: 0 Ordered: 07-Dec-2019 DO Active [...] 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 Chronic Esophageal disorders (17 sources) Gastroesophageal reflux disease; Translations: [Gastro-esophageal reflux disease without esophagitis] Onset: 08-28-2022 02-10-2023 Chronic Immunizations and screening for infectious disease (2 sources) Exposure to sexually transmissible disorder; Translations: [Contact with and (suspected) exposure to infections with a predominantly sexual mode of transmission] 04-14-2024 Episodic Menstrual disorders (1 source) Missed period; Translations: [Irregular menstruation, unspecified] 02-16-2024 Chronic Miscellaneous mental health disorders (1 source) Globus sensation; Translations: [Other somatoform disorders] Chronic Nausea and vomiting (2 sources) Nausea; Translations: [Nausea] 04-14-2024 Episodic Nutritional deficiencies (20 sources) Vitamin D deficiency; [...] Translations: [UNSPECIFIED DYSPAREUNIA] Onset: 07-11-2021 Chronic Other female genital disorders (2 sources) Vaginal discharge; Translations: [Other specified noninflammatory disorders of vagina] 04-14-2024 Episodic Other nervous system disorders (3 sources) Disorder of brain; Translations: [Encephalopathy, unspecified] 02-19-2023 Chronic Other nutritional; endocrine; and metabolic disorders (2 sources) Overweight; Translations: [Overweight] Chronic Other nutritional; endocrine; and metabolic disorders (1 source) Obese class I; Translations: [Body mass index (BMI) 33.0-33.9, adult] Chronic Other and delivery including normal (6 sources) ; Translations: [Encounter for supervision of normal , unspecified, unspecified trimester] 02-16-2024 Episodic Other screening for suspected conditions (not mental disorders or infectious disease) (20 sources) Mammography abnormal; Translations: [Abnormal mammogram, unspecified] Onset: 03-25-2021 Episodic Other skin disorders (2 sources) Lentiginosis; Translations: [Other melanin hyperpigmentation] Episodic Other upper respiratory disease (16 sources) Chronic nasopharyngitis; Translations: [Chronic nasopharyngitis] Onset: [...] [11 weeks gestation of ] 03-16-2024 Episodic Residual codes; unclassified (2 sources) Gestation period, 15 weeks; Translations: [15 weeks gestation of ] 04-14-2024 Episodic Spondylosis; intervertebral disc disorders; other back problems (20 sources) Neck pain; Translations: [Cervicalgia] Episodic Unclassified (3 sources) OB Reminders Onset: 04-14-2024 04-14-2024 Urinary tract infections (7 sources) Urinary tract [...] 11-28-2022 Episodic Diseases of mouth; excluding dental (16 sources) Sialoadenitis; Translations: [Sialoadenitis, unspecified] Onset: 08-28-2022 [...] Translations: [Overweight] Onset: 11-28-2022 11-28-2022 Episodic Other skin disorders (20 sources) Mass [...] Range Facility Urinalysis macro (dipstick) panel (U)on 04-14-2024 Bilirubin, UA Negative Negative - 4(70) +++ mg/dL [facility] Blood, UA Positive Negative - 50 Shaun/mcL [facility] Comment on above: trace-intact Clarity, UA Clear [facility] Color, UA Yellow [facility] Glucose, UA Positive Negative - 1999(110) ++++ mg/dL [facility] Comment on above: 100 Interpretation and review of laboratory results Abnormal [facility] Ketones, UA Negative Negative - 160(16) ++++ mg/dL [facility] Leukocytes, UA Trace Negative - 500+++ Denys/mcL [facility] Nitrite, UA Negative Negative - Positive [facility] pH, UA 5.5 5 - 9 [facility] Protein, UA Negative Negative - 2000(20) ++++ mg/dL [facility] Spec Grav, UA 1.025 1 - 1.03 [facility] Urobilinogen, UA 0.2 0.2 - 12 mg/dL [facility] Urinalysis macro (dipstick) panel (U)on 03-16-2024 Bilirubin, UA Negative Negative - 4(70) +++ mg/dL [facility] Blood, UA Negative Negative - 50 Shaun/mcL [facility] Clarity, UA Clear [facility] Color, UA Yellow [facility] Glucose, UA Negative Negative - 2000(110) ++++ mg/dL [facility] Interpretation and review of laboratory results Normal [facility] Ketones, UA Negative Negative - 160(16) ++++ mg/dL [facility] Leukocytes, UA Negative Negative - 500+++ Denys/mcL [facility] Nitrite, UA Negative Negative - Positive [facility] pH, UA 5.5 5 - 9 [facility] Protein, UA Negative Negative - 1999(20) ++++ mg/dL [facility] Spec Grav, UA 1.025 1 - 1.03 [facility] Urobilinogen, UA 1.0 0.2 - 12 mg/dL [facility] HEMOGLOBIN A1Con 024 Glucose [Mass/Vol] 105 mg/dL [facility] HbA1c (Bld) [Mass fraction] 5.3 % 4.5 - 6.2 % [facility] Comment on above: ADA RECOMMENDED LIMI T 4.0 - 6.0 ADA THERAPEUTIC TARGET < 7.0 ACTION SUGGESTED > 7.0 [facility] Urine Cultureon 03-08-2024 Bacteria identified Cx Nom (U) 75,000 colonies/ml mixed bacterial skin contaminants 2 Days PERFORMED BY: [place] [address] PATHOLOGIST BRICK SETTER LASHONDA HARMON M.D. Normal [facility] Comment on above: Performed By: #### C UU #### [facility] [address] HCG ( test) Ql (U)o n 02-16-2024 Interpretation and review of laboratory results Abnormal [facility] Preg Test, Ur Positive Negative [facility] Urinalysis macro (dipstick) panel (U)on 02-16-2024 Bilirubin, UA Negative Negative - (70) +++ mg/dL [facility] Blood, UA Negative Negative - 50 Shaun/mcL [facility] Clarity, UA Clear [facility] Color, UA Yellow [facility] Glucose, UA Negative Negative - 1999(110) ++++ mg/dL [facility] Interpretation and review of laboratory results Normal [facility] Ketones, UA Negative Negative - 160(16) ++++ mg/dL [facility] Leukocytes, UA Negative Negative - 500+++ Denys/mcL [facility] Nitrite, UA Negative Negative - Positive [facility] pH, UA 6.5 5 - 9 [facility] Protein, UA Negative Negative - 1999(20) ++++ mg/dL [facility] Spec Grav, UA 1.02 1 - 1.03 [facility] Urobilinogen, UA 1.0 0.2 - 12 mg/dL [facility] PREG QUANT HCGon 024 HCG QUANTITATIVE 72478 mIU/mL [facility] Comment on above: 5-50 0.2-1 WEEK 50-500 1-2 WEEKS 100-5,000 2-3 WEEKS 500-10,000 3-4 WEEKS 1,000-50,000 4-5 WEEKS 10,000-100,000 5-6 WEEKS 15,000-200,000 6-8 WEEKS 10,000-100,000 2-3 MONTHS [facility] PREG QUANT HCGon 024 HCG QUANTITATIVE 5650 mIU/mL [facility] Comment on above: 5-50 0.2-1 WEEK 50-500 1-2 WEEKS 100-5,000 2-3 WEEKS 500-10,000 3-4 WEEKS 1,000-50,000 4-5 WEEKS 10,000-100,000 5-6 WEEKS 15,000-200,000 6-8 WEEKS 10,000-100,000 2-3 MONTHS [facility] HCG ( test) Ql (U)o n 01-05-2024 Interpretation and review of laboratory results Normal [facility] Work Phone: Preg Test, Ur Negative Negative [facility] Work Phone: [facility] Work Phone: POCT UA Automated manually r esultedon 01-05-2024 Appearance (U) Cloudy Abnormal Clear [facility] Work Phone: Glucose Test strip (U) [Mass/Vol] Negative NEGATIVE mg/dl [facility] Work Phone: Hemoglobin Ql (U) Negative NEGATIVE [facility] Work Phone: Interpretation and review of laboratory results Abnormal [facility] Work Phone: Leukocyte esterase Test strip Ql (U) SMALL (1+) Abnormal NEGATIVE [facility] Work Phone: Nitrite Ql (U) Positive Abnormal NEGATIVE [facility] Work Phone: pH (U) 7.5 [pH] No Reference Range Established [facility] Work Phone: POC Bilirubin, Urine Negative NEGATIVE [facility] Work Phone: POC Color, Urine Yellow Straw, [place] ow, Light-Yellow [facility] Work Phone: POC Ketones, Urine Negative NEGATIVE mg/dl [facility] Work Phone: POC Protein, Urine Negative NEGATIVE, 30 (1+) mg/dl [facility] Work Phone: POC Specific [place], Urine 1.010 1.005 - 1.035 [facility] Work Phone: POC Urobilinogen, Urine 0.2 0.2, 1.0 EU/DL [facility] Work Phone: [facility] Work Phone: IGP,APTIMA HPV,AGE GDLNon -2023 AGE GDLN ACOG TESTING Note . [facility] Comment on above: TESTS RESULT FLAG UN ITS REF RANGE LAB Clinician Provided Cytology Information Source.............Cervix;Endocervix No. of containers..01 ThinPrep Vial Age Algo ACOG Katherin... 32 FLAG LEGEND: L-Low Normal,H-High Normal,LL-Alert Low,HH-Alert High <-Panic Low,>-Panic High,A-Abnormal,AA-Critical Abnormal Performed at: 01 =[address] [place] [address] Lacy Perez MD, HPV APTIMA Negative Negative [facility] Comment on above: This nucleic acid am plification test detects fourteen high- risk HPV types (16,18,31,33,35,39,45,51,52,56,58,59,66,68) without differentiation. Performed at: =[address] [id number] Tubing Machine Operator: Lacy Perez MD, Phone: [phone] Performed at: [address] [id number] Tubing Machine Operator: Lacy Perez MD, Phone: [phone] IGP, APTIMA HPV, RFX 16/18,45 Note . [facility] Comment on above: TESTS RESULT FLAG UN ITS REF RANGE LAB DIAGNOSIS: 02 NEGATIVE FOR INTRAEPITHELIAL LESION OR MALIGNANCY. Specimen adequacy: 02 Satisfactory for evaluation. Endocervical and/or squamous metaplastic cells (endocervical component) are present. Performed by: 02 Maryse Tang, Stringed Instrument Repairer (ASCP) . 02 Note: Note 02 The [...] High,A-Abnormal,AA-Critical Abnormal Performed at: [address] [facility] [address] [address] Lacy Perez MD, BRUSH-SPATULA CERVIX ENDOCERVIX [facility] Urine Cultureon 09-05-2023 Bacteria identified Cx Nom (U) <9,000 colonies/ml mixed bacterial skin contaminants 2 Days PERFORMED BY: [facility] [address] [place] [address] PATHOLOGIST BRICK SETTER DAVID CHILD M.D. Normal [facility] Comment on above: Performed By: #### C UU #### [address] CNOVon 09-01-2023 CNOV Office Visit (AMDERM ) MICHAEL WELLER ([id number]) 1985 F Date Time Provider Department 09/01/23 [...] Past Histories independently gathered by the clinical academic support director and the remaining scribed note accurately describes [...] - dexmethylphenidate (more content not included)... Normal [facility] Drugs of abuse screen W Refl ex confirm panel (U)on 02-19-2023 Amphetamines Screen Ql (U) Negative Normal Presumptive Negative [facility] Comment on above: Order [...] By: #### 8 7428-9 #### ALEJANDRO RAMOS ([id number]) [facility]) [address] [place] [address] Barbiturates Screen Ql (U) Negative Normal Presumptive Negative [facility] Comment on above: Order [...] By: #### 8 7428-9 #### ALEJANDRO RAMOS ([id number]) [facility] ([facility] [address] [place] [address] Benzodiazepines Ql (U) Negative Normal Presumptive Negative [facility] Comment on above: Order [...] By: #### 8 7428-9 #### ALEJANDRO RAMOS ([id number]) [facility] ([facility] [address] [place] [address] Benzoylecgonine Screen Ql (U) Negative Normal Presumptive Negative [facility] Comment on above: Order [...] 8 7428-9 #### ALEJANDRO SUERO RIO REN ([id number]) [facility] ([facility] [address] [place] [address] Cannabinoids Screen Ql (U) Negative Normal Presumptive Negative [facility] Comment on above: Order [...] 8 7428-9 #### ALEJANDRO SUERO RIO REN ([id number]) [facility] ([facility] [address] [place] [address] fentaNYL+Norfentanyl Screen Ql (U) Negative Normal Presumptive Negative [facility] Comment on above: Order [...] 8 7428-9 #### ALEJANDRO SUERO RIO REN ([id number]) [facility] ([facility] [address] [place] [address] Opiates Screen Ql (U) Negative Normal Presum ptive Negative [facility] Comment on above: Order [...] By: #### 8 7428-9 #### ALEJANDRO RAMOS ([id number]) [facility] ([facility] [address] [place] [address] oxyCODONE+oxyMORphone Screen Ql (U) Negative Normal Presumptive Negative [facility] Comment on above: Order [...] By: #### 8 7428-9 #### ALEJANDRO RAMOS ([id number]) [facility]) [address] [place] [address] Phencyclidine Ql (U) Negative Normal Presump tive Negative [facility] Comment on above: Order [...] By: #### 8 7428-9 #### ALEJANDRO RAMOS ([id number]) [facility]) [address] [place] [address] BI MAMMO BILATERAL DIAGNOSTI C TOMOSYNTHESISon 12-19-2022 BI MAMMO BILATERAL DIAGNOSTIC TOMOSYNTHESIS Interpreted By: Mohan Romano and Avery Ross STUDY: BI MAMMO BILATERAL DIAGNOSTIC TOMOSYNTHESIS; BI US BREAST LIMITED LEFT; 12/19/2022 9:42 am; 12/19/2022 10:52 am ACCESSION NUMBER(S): [id number]; [id number] ORDERING CLINICIAN: KAROLINA MAN INDICATION: Annual screening [...] axillary abnormality was performed by a registered supervisor blasting. No sonographic abnormalities are seen in the [...] any future breast imaging appointments, please call [phone] ([phone]). MACRO: None Signed by: Mohan Romano 12/19/2022 11:32 AM Dictation workstation: [id number] [facility] BI US BREAST LIMITED LEFTon 12-19-2022 BI US BREAST LIMITED LEFT Interpreted By: Mohan Romano, and Jakob Wei STUDY: BI MAMMO BILATERAL DIAGNOSTIC TOMOSYNTHESIS; BI US BREAST LIMITED LEFT; 12/19/2022 9:42 am; 12/19/2022 10:52 am ACCESSION NUMBER(S): [id number]; [id number] ORDERING CLINICIAN: KAROLINA MAN INDICATION: Annual screening [...] axillary abnormality was performed by a registered supervisor blasting. No sonographic abnormalities are seen in the [...] any future breast imaging appointments, please call [phone] ([phone]). MACRO: None Signed by: Mohan Romano 12/19/2022 11:32 AM Dictation workstation: [id number] [facility] DBT Breast - bilateral diagn osticon 12-19-2022 Radiology Study observation (narrative) [facility] Work Phone: No Panel Informationon 12-19 1. [...] any future breast imaging appointments, please call [phone] ([phone]). MACRO: None Signed by: Mohan Romano 12/19/2022 11:32 AM Dictation workstation: [id number] MM[facility]AL Interpreted By: Mohan Romano and Avery Ross STUDY: BI MAMMO BILATERAL DIAGNOSTIC TOMOSYNTHESIS; BI US BREAST LIMITED LEFT; 12/19/2022 9:42 am; 12/19/2022 10:52 am ACCESSION NUMBER(S): [id number]; [id number] ORDERING CLINICIAN: KAROLINA MAN INDICATION: Annual screening [...] axillary abnormality was performed by a registered supervisor blasting. No sonographic abnormalities are seen in the area of the patient's reported palpable lump or pain. 3 morphologically normal lymph nodes are incidentally seen. MMODAL No Panel InformationOrdered By: Mohan Romano on 12-19-2022 [facility] Work Phone: US Breast - left limitedon 1 Radiology Study observation (narrative) [facility] Work Phone: COMPREHENSIVE PANELon 2022 Albumin [Mass/Vol] 4.6 g/dL Normal 3.4 - 5.0 [facility] Comment on above: Performed By: #### C MP #### [facility] [address] [place] [address] ALP [Catalytic activity/Vol] 63 U/L Normal 33 - 110 [facility] Comment on above: Performed By: #### C MP #### [facility] [address] [place] [address] ALT [Catalytic activity/Vol] 23 U/L Normal 7 - 45 [facility] Comment on above: Result Comment: Lacie ents treated with Sulfasalazine may generate falsely decreased results for ALT. Performed By: #### C MP #### [facility] [address] [place] [address] Anion gap [Moles/Vol] 14 mmol/L Normal 10 - 20 [facility] Comment on above: Performed By: #### C MP #### [facility] [address] [place] [address] AST [Catalytic activity/Vol] 22 U/L Normal 9 - 39 [facility] Comment on above: Performed By: #### C MP #### [facility] [address] [place] [address] Bilirubin [Mass/Vol] 0.3 mg/dL Normal 0.0 - 1.2 [facility] Comment on above: Performed By: #### C MP #### [facility] [address] [place] [address] Calcium [Mass/Vol] 9.2 mg/dL Normal 8.6 - 10.6 [facility] Comment on above: Performed By: #### C MP #### [facility] [address] [place] [address] Chloride [Moles/Vol] 102 mmol/L Normal 98 - 107 [facility] Comment on above: Performed By: #### C MP #### [facility] [address] [place] [address] Creatinine [Mass/Vol] 0.66 mg/dL Normal 0.50 - 1.05 [facility] Comment on above: Performed By: #### C MP #### [facility] [address] [place] [address] eGFR FEMALE >90 Normal >90 [facility] Comment on above: Result Comment: CALC ULATIONS OF ESTIMATED GFR ARE PERFORMED USING THE 2020 CKD-EPI STUDY REFIT EQUATION WITHOUT THE RACE VARIABLE FOR THE IDMS-TRACEABLE CREATININE METHODS. https://jasn.asnjournals.org/content/early//ASN.949821 2823 Performed By: #### C MP #### [facility] [address] [place] [address] Glucose [Mass/Vol] 82 mg/dL Normal 74 - 99 [facility] Comment on above: Performed By: #### C MP #### [facility] [address] [place] [address] HCO3 (Bld) [Moles/Vol] 25 mmol/L Normal 21 - 32 [facility] Comment on above: Performed By: #### C MP #### [facility] [address] [place] [address] Potassium [Moles/Vol] 3.9 mmol/L Normal 3.5 - 5.3 [facility] Comment on above: Performed By: #### C MP #### [facility] [address] [place] [address] Protein [Mass/Vol] 7.2 g/dL Normal 6.4 - 8.2 [facility] Comment on above: Performed By: #### C MP #### [facility] [address] [place] [address] Sodium [Moles/Vol] 137 mmol/L Normal 136 - 145 [facility] Comment on above: Performed By: #### C MP #### [facility] [address] [place] [address] Urea nitrogen [Mass/Vol] 17 mg/dL Normal 6 - 23 [facility] Comment on above: Performed By: #### C MP #### [facility] [address] [place] [address] VITAMIN D, 25-HYDROXYon 11-08 VITAMIN D, 25-HYDROXY 36 ng/mL Normal [facility] Comment on above: Result Comment: . DEFICIENCY: < 20 NG/ML INSUFFICIENCY: 20-29 NG/ML SUFFICIENCY: 30-100 NG/ML THIS ASSAY ACCURATELY QUANTIFIES THE SUM OF VITAMIN D3, 25-HYDROXY AND VIT D2,25-HYDROXY. Performed By: #### V TDOH #### [facility] [address] [place] [address] COMPREHENSIVE PANELon 2022 Lab Specimen Source Normal [facility] Comment on above: Performed By: #### C MP #### [facility] [address] [place] [address] Performed By: #### V TDOH #### [facility] [address] [place] XR foot RT min 3V*on 023 XR foot RT min 3V* [facility] [employer] Other XR foot RT min 3V* [facility] [employer] Other XR foot RT min 3V* [facility] [facility] [employer] Other XR foot RT min 3V* AELISHA Guzman [address] [employer] Other XR foot RT min 3V* XRay Report [employer] Other XR foot RT min 3V* Signed [employer] Other XR foot RT min 3V* Patient: Michael Weller MR#: [id number] [employer] Other XR foot RT min 3V* [id number] [employer] Other XR foot RT min 3V* : 1985 Acct:[id number] [employer] Other XR foot RT min 3V* Age/Sex: 36 / F ADM Date: 07/02/22 [employer] Other XR foot RT min 3V* Loc: [id number] Room: Type: [facility] [employer] Other XR foot RT min 3V* Attending Dr: Bolivar Sherman [facility] [employer] Other XR foot RT min 3V* Copies to: Bolivar Sherman [employer] Other XR foot RT min 3V* Ordering Provider: Bolivar Sherman [employer] Other XR foot RT min 3V* Date of Service: 07/02/22 [employer] Other XR foot RT min 3V* XR/XR foot RT min 3V*: Right foot pain [employer] Other XR foot RT min 3V* 3 views RIGHT foot [employer] Other XR foot RT min 3V* COMPARISON:None [facility] [employer] Other XR foot RT min 3V* HISTORY: RIGHT 5th metatarsal pain for one week [employer] Other XR foot RT min 3V* Acute findings: None [employer] Other XR foot RT min 3V* Degenerative change: Unremarkable [employer] Other XR foot RT min 3V* Soft tissue findings : Unremarkable [employer] Other XR foot RT min 3V* Joint effusion: None [employer] Other XR foot RT min 3V* Postop changes: None [employer] Other XR foot RT min 3V* XR/XR foot RT min 3V* [employer] Other XR foot RT min 3V* IMPRESSION:No acute findings [employer] Other XR foot RT min 3V* Impression dictated by: Roddy Villegas M.D.07/02/2022 1:27 PM [employer] Other XR foot RT min 3V* Dictation Location: [place] [address] [employer] Other XR foot RT min 3V* Transcribed By: PWS 07/02/22 [facility] [employer] Other XR foot RT min 3V* Dictated By: Roddy Villegas DO 07/02/22 1325 [employer] Other XR foot RT min 3V* Signed By: [employer] Other XR foot RT min 3V* 07/02/[address] [place] [address] [employer] Other Office Visit (Primary Care F orms)on [...] Anxiety; YOEL = N; Verified Transmission to [id number]; Last Updated By: Bowen Olmedo; 02/10/2022 3:45:08 [...] BREAST ULTRASOUND; 10/14/2021 3:38 pm ACCESSION NUMBER(S): [id number] ORDERING CLINICIAN: GRAZYNA ROMANO INDICATION: Patient presents with right axillary painful palpable mass for the last 2 years. History of benign right breast mass with unknown pathology in right breast. COMPARISON: Mammogram 06/21/2021, 07/06/2018, 01/08/2018. Breast ultrasound 06/21/2021, 04/23/2020, 07/15/2019, 02/02/2019 FINDINGS: Targeted ultrasound was performed of the right axilla by a registered supervisor blasting using elastography. Within the right axilla, no sonographic abnormality is present. The tissues are soft on elastography. Incidental note of normal appearing right axillary lymph node. IMPRESSION: No sonographic evidence of malignancy. Recommendation is clinical follow-up for patient's symptomatology. Screening mammogram in June 2022. BI-RADS CATEGORY: Category: 2 - Benign. Recommendation: Clinical follow-up for symptomatology. For any future breast imaging appointments, please call [phone] ([phone]). I personally reviewed the images/study and I agree with the findings as stated by human resources vice president Brandt Camarillo MD. Electronically signed by: JAYME STEWART MD Normal [facility] Ultrasound Limited Breaston 10-14-2021 MG Breast Screening Normal [facility] Work Phone: Albumin [Mass/volume] in Ser um or PlasmaOrdered By: Kp Alvares on 10-07-2021 Albumin [Mass/Vol] 3.9 g/dL 3.2-5.5 [facility] Basophils Auto (Bld) [#/Vol] Ordered By: Kp Alvares on 10-07-2021 Basophils (Bld) [#/Vol] 0.0 10*3/uL 0.0-0.2 [facility] Basophils/100 WBC Auto (Bld) Ordered By: Kp Alvares on 10-07-2021 Basophils/100 WBC (Bld) 0.6 % . [facility] Blood hemoglobin measurement (mass/volume)Ordered By: Kp Alvares on 10-07-2021 Hemoglobin (Bld) [Mass/Vol] 12.9 g/dL 11.8-15.4 [facility] Blood leukocytes automated c ount (number/volume)Ordered By: Kp Alvares on 10-07-2021 WBC (Bld) [#/Vol] 6.7 10*3/uL 4.5-11.0 [facility] Cholesterol [Mass/volume] in Serum or PlasmaOrdered By: Kp Alvares on 10-07-2021 Cholesterol [Mass/Vol] 192 mg/dL 140-200 [facility] Comment on above: Chol less than 200 m g/dl low risk Chol 201-239 mg/dl borderline risk Chol 240 mg/dl and greater high risk Cholesterol in LDL Calc [Mas s/Vol]Ordered By: Kp Alvares on 10-07-2021 Cholesterol in LDL [Mass/Vol] 104 mg/dL 0-100 [facility] Comment on above: LDL ATP III CLASSIFI CATION LDL less than 100 mg/dL Optimal LDL 100-129 mg/dL Near or above optimal LDL 130-159 mg/dL Borderline high LDL 160-189 mg/dL High LDL greater than 189 mg/dL Very high Cholesterol in VLDL Calc [Ma ss/Vol]Ordered By: Kp Alvares on 10-07-2021 Cholesterol in VLDL [Mass/Vol] 49 mg/dL [facility] Creatinine and Glomerular fi ltration rate.predicted panel (S/P/Bld)Ordered By: Kp Alvares on 10-07-2021 Creatinine [Mass/Vol] 0.60 mg/dL 0.44-1.03 [facility] Eosinophils Auto (Bld) [#/Vo l]Ordered By: Kp Alvares on 10-07-2021 Eosinophils (Bld) [#/Vol] 0.0 10*3/uL 0.0-0.45 [facility] Eosinophils/100 WBC Auto (Bl d)Ordered By: Kp Alvares on 10-07-2021 Eosinophils/100 WBC (Bld) 0.1 % . [facility] Erythrocyte distribution wid th Auto (RBC) [Ratio]Ordered By: Kp Alvares on 10-07-2021 Erythrocyte distribution width (RBC) [Ratio] 14.1 % 11.9-15.3 [facility] Estimated glomerular filtrat ion rate (GFR) non- AmericanOrdered By: Kp Alvares on 10-07-2021 GFR/1.73 sq M.predicted among non-blacks MDRD (S/P/Bld) [Vol rate/Area] > 60 mL/Min [facility] Globulin Calc (S) [Mass/Vol] Ordered By: Kp Alvares on 10-07-2021 Globulin (S) [Mass/Vol] 2.7 g/dL [facility] Hematocrit Auto (Bld) [Volum e fraction]Ordered By: Kp Alvares on 10-07-2021 Hematocrit (Bld) [Volume fraction] 39.2 % 34.0-46.4 [facility] Laboratory - Hematology and Cell countsOrdered By: Kp Alvares on 10-07-2021 Nucleated RBC/100 WBC (Bld) [Ratio] 0.0 % 0-0.5 [facility] Lymphocytes Auto (Bld) [#/Vo l]Ordered By: Kp Alvares on 10-07-2021 Lymphocytes (Bld) [#/Vol] 2.0 10*3/uL 1.00-4.8 [facility] Lymphocytes/100 WBC Auto (Bl d)Ordered By: Kp Alvares on 10-07-2021 Lymphocytes/100 WBC (Bld) 30.2 % . [facility] MCH Auto (RBC) [Entitic mass ]Ordered By: Kp Alvares on 10-07-2021 MCH (RBC) [Entitic mass] 28.2 pg 24.7-34.3 [facility] MCHC Auto (RBC) [Mass/Vol]Or dered By: Kp Alvares on 10-07-2021 MCHC (RBC) [Mass/Vol] 33.0 g/dL 32.0-35.0 [facility] MCV Auto (RBC) [Entitic vol] Ordered By: Kp Alvares on 10-07-2021 MCV (RBC) [Entitic vol] 85.5 fL 80-100 [facility] Monocytes Auto (Bld) [#/Vol] Ordered By: Kp Alvares on 10-07-2021 Monocytes (Bld) [#/Vol] 0.4 10*3/uL 0.0-0.8 [facility] Monocytes/100 WBC Auto (Bld) Ordered By: Kp Alvares on 10-07-2021 Monocytes/100 WBC (Bld) 5.4 % . [facility] Neutrophils Auto (Bld) [#/Vo l]Ordered By: Kp Alvares on 10-07-2021 Neutrophils (Bld) [#/Vol] 4.2 10*3/uL 1.8-7.7 [facility] Neutrophils/100 WBC Auto (Bl d)Ordered By: Kp Alvares on 10-07-2021 Neutrophils/100 WBC (Bld) 63.7 % . [facility] No Panel InformationOrdered By: Kp Alvares on 10-07-2021 Estimated GFR () > 60 mL/Min [facility] Comment on above: GFR estimated refere nce range: According to KDOQI guidelines, <60 ml/min/1.73m2 is sufficient to diagnose a patient with chronic kidney disease. Pharmacy Creatinine Clearance (Chem N/A [facility] Platelet mean volume Auto (B ld) [Entitic vol]Ordered By: Kp Alvares on 10-07-2021 Platelet mean volume (Bld) [Entitic vol] 11.4 fL 6.3-10.7 [facility] Platelets Auto (Bld) [#/Vol] Ordered By: Kp Alvares on 10-07-2021 Platelets (Bld) [#/Vol] 164 10*3/uL 150-450 [facility] Protein [Mass/volume] in Ser um or PlasmaOrdered By: Kp Alvares on 10-07-2021 Protein [Mass/Vol] 6.6 g/dL 6.1-7.9 [facility] RBC Auto (Bld) [#/Vol]Ordere d By: Kp Alvares on 10-07-2021 RBC (Bld) [#/Vol] 4.59 10*6/uL 3.60-5.00 [facility] Serum or plasma alanine bynum otransferase measurement without P-5'-P (enzymatic activiOrdered By: Kp Alvares on 10-07-2021 ALT No additional P-5'-P [Catalytic activity/Vol] 16 U/L 10-60 [facility] Serum or plasma albumin/glob ulin mass ratioOrdered By: Kp Alvares on 10-07-2021 Albumin/Globulin [Mass ratio] 1.4 {ratio} [facility] Serum or plasma alkaline jenn sphatase measurement (enzymatic activity/volume)Ordered By: Kp Alvares on 10-07-2021 ALP [Catalytic activity/Vol] 55 U/L 32-92 [facility] Serum or plasma aspartate am inotransferase measurement (enzymatic activity/volume)Ordered By: Kp Alvares on 10-07-2021 AST [Catalytic activity/Vol] 16 U/L 10-42 [facility] Serum or plasma calcium marlon urement [...] Cholesterol in HDL [Mass/Vol] 39 mg/dL 35-85 [facility] Comment on above: HDL CHOL ATP-III CLA SSIFICATION Cardiovascular Risk HDL > or equal to 60 mg/dL LOW HDL < 40 mg/dL HIGH Serum or plasma potassium me asurement (moles/volume)Ordered By: Kp Alvares on 10-07-2021 Potassium [Moles/Vol] 4.1 mmol/L 3.5-5.1 [facility] Serum or plasma sodium measu rement (moles/volume)Ordered By: Kp Alvares on 10-07-2021 Sodium [Moles/Vol] 134 mmol/L 136-146 [facility] Serum or plasma total biliru bin measurement (mass/volume)Ordered By: Kp Alvares on 10-07-2021 Bilirubin [Mass/Vol] 0.6 mg/dL 0.3-1.2 [facility] Serum or plasma total carbon dioxide measurement (moles/volume)Ordered By: Kp Alvares on 10-07-2021 CO2 [Moles/Vol] 25.9 mmol/L 22.0-30.0 [facility] Serum or plasma total choles terol/high density lipoprotein (HDL) cholesterol mass ratOrdered By: Kp Alvares on 10-07-2021 Cholesterol.total/Cho lesterol in HDL [Mass ratio] 4.9 {ratio} <5.0 [facility] Serum or plasma urea nitroge n measurement (mass/volume)Ordered By: Kp Alvares on 10-07-2021 Urea nitrogen [Mass/Vol] 10 mg/dL 9-23 [facility] TSH DL <= 0.005 mIU/L QnOrde red By: Kp Alvares on 10-07-2021 TSH Qn 2.68 m[IU]/L 0.45-5.33 [facility] Triglyceride [Mass/volume] i n Serum or PlasmaOrdered By: Kp Alvares on 10-07-2021 Triglyceride [Mass/Vol] 246 mg/dL 35-149 [facility] Comment on above: TRIG ATP III CLASSIF ICATION TRIG less than 150 mg/dL Normal TRIG 150-199 mg/dL Borderline high TRIG 200-500 mg/dL High TRIG greater than 500 mg/dL Very high Standard traceable to the Center for Disease Conrtrol and Prevention (CDC) test method. CBC AUTO DIFFon 07-12-2021 BASO # 0.0 103/ul Normal 0.0-0.1 [facility] Comment on above: Performed By: #### C BC #### [facility] [address] [place] [address] Dr. Kalyn Gutierrez Basophils/100 WBC (Bld) 0.4 % Normal 0.2-2.0 [facility] Comment on above: Performed By: #### C BC #### [facility] [address] [place] [address] Dr. Kalyn Gutierrez EO # 0.0 103/ul Normal 0.0-0.7 [facility] Comment on above: Performed By: #### C BC #### [facility] [address] [place] [address] Dr. Kalyn Gutierrez Eosinophils/100 WBC (Bld) 0.0 % Critically low 0.9-7.0 [facility] Comment on above: Performed By: #### C BC #### [facility] [address] [place] [address] Dr. Kalyn Gutierrez Erythrocyte distribution width (RBC) [Ratio] 12.8 % Normal 11.0-15.0 [facility] Comment on above: Performed By: #### C BC #### [facility] [address] [place] [address] Dr. Kalyn Gutierrez Hematocrit (Bld) [Volume fraction] 38.8 % Normal 36.0-48.0 [facility] Comment on above: Performed By: #### C BC #### [facility] [address] [place] [address] Dr. Kalyn Gutierrez Hemoglobin (Bld) [Mass/Vol] 12.4 g/dL Normal 12.0-16.0 [facility] Comment on above: Performed By: #### C BC #### [facility] [address] [place] [address] Dr. Kalyn Gutierrez IG # 0.02 10e3/ul Normal 0.00-0.03 [facility] Comment on above: Performed By: #### C BC #### [facility] [address] [place] [address] Dr. Kalyn Gutierrez IG % 0.3 % Normal 0.0-0.5 [facility] Comment on above: Performed By: #### C BC #### [facility] [address] [place] [address] Dr. Kalyn Gutierrez LYMPH # 1.8 103/ul Normal 1.2-3.8 [facility] Comment on above: Performed By: #### C BC #### [facility] [address] [place] [address] Dr. Kalyn Gutierrez Lymphocytes/100 WBC (Bld) 25.0 % Normal 20.5-60.0 [facility] Comment on above: Performed By: #### C BC #### [facility] [address] [place] [address] Dr. Kalyn Gutierrez MANUAL DIFF REQ NO Normal [facility] Comment on above: Performed By: #### C BC #### [facility] [address] [place] [address] Dr. Kalyn Gutierrez MCH (RBC) [Entitic mass] 28.2 pg Normal 26.7-34.0 [facility] Comment on above: Performed By: #### C BC #### [facility] [address] [place] [address] Dr. Kalyn Gutierrez MCHC (RBC) [Mass/Vol] 32.0 g/dL Normal 29.9-35.2 [facility] Comment on above: Performed By: #### C BC #### [facility] [address] [place] [address] Dr. Kalyn Gutierrez MCV (RBC) [Entitic vol] 88.4 fL Normal 81.0-99.0 [facility] Comment on above: Performed By: #### C BC #### [facility] [address] [place] [address] Dr. Kalyn Gutierrez MONO # 0.6 103/ul Normal 0.3-0.8 [facility] Comment on above: Performed By: #### C BC #### [facility] [address] [place] [address] Dr. Kalyn Gutierrez Monocytes/100 WBC (Bld) 8.7 % Normal 1.7-12.0 [facility] Comment on above: Performed By: #### C BC #### [facility] [address] [place] [address] Dr. Kalyn Gutierrez NEUT # 4.8 103/ul Normal 1.4-6.5 [facility] Comment on above: Performed By: #### C BC #### [facility] [address] [place] [address] Dr. Kalyn Gutierrez Neutrophils/100 WBC (Bld) 65.6 % Normal 43.0-75.0 [facility] Comment on above: Performed By: #### C BC #### [facility] [address] [place] [address] Dr. Kalyn Gutierrez Platelet mean volume (Bld) [Entitic vol] 12.3 fL Normal 9.5-13.5 [facility] Comment on above: Performed By: #### C BC #### [facility] [address] [place] [address] Dr. Kalyn Gutierrez PLT 183 103/ul Normal 150-450 [facility] Comment on above: Performed By: #### C BC #### [facility] [address] [place] [address] Dr. Kalyn Gutierrez RBC 4.39 106/ul Normal 4.20-5.40 [facility] Comment on above: Performed By: #### C BC #### [facility] [address] [place] [address] Dr. Kalyn Gutierrez WBC 7.3 103/ul Normal 4.0-11.0 [facility] Comment on above: Performed By: #### C BC #### [facility] [address] [place] [address] [address] Kalyn Gutierrez PREG QUANT HCGon 07-12-2021 HCG QUANT <1 [facility] Comment on above: Performed By: #### P REGQNT #### [facility] [address] [place] [address] [address] Kalyn Gutierrez HCG RANGE SEE BELOW Normal [facility] Comment on above: Result Comment: 5-50 0-1 WEEK 40-300 1-2 WEEKS 100-1,000 2-3 WEEKS 500-6,000 3-4 WEEKS 5,000-200,000 1-2 MONTHS 10,000-100,000 2-3 MONTHS 3,000-50,000 2ND TRIMESTER 1,000-50,000 3RD TRIMESTER Performed By: #### P REGQNT #### [facility] [address] [place] [address] [address] Kalyn Gutierrez US PELVIS AND TRANSVAGon [...] NOEMI KRISHNA Date: 2021-06-22 09:10 Normal [facility] DIGITAL DIAG MAMM BILAT WITH TOMOon 06-21-2021 DIGITAL DIAG MAMM BILAT WITH SUSANA Patient Name: MICHAEL WELLER STUDY: DIGITAL DIAG MAMM BILAT WITH SUSANA; BREAST ULTRASOUND; 06/21/2021 3:05 pm; 06/21/2021 3:31 pm ACCESSION NUMBER(S): [id number]; [id number] ORDERING CLINICIAN: RAFAELA ARGUELLO INDICATION: Right breast [...] breast ultrasound was performed by a registered supervisor blasting utilizing elastography. The irregular hypoechoic parallel mass [...] any future breast imaging appointments, please call [phone] ([phone]). Patient letter sent SAAPPR Electronically signed by: MOHAN ROMANO MD Normal [facility] IO UA (automated w/o microsc opy)on 06-21-2021 Protein (U) [Mass/Vol] Negative [facility] Work Phone: IO UA (automated w/o microscopy) Negative [facility] Work Phone: IO UA (automated w/o microscopy) Normal (0.2-1.0 mg/dl) [facility] Work Phone: IO UA (automated w/o microscopy) 6.5 1 [facility] Work Phone: IO UA (automated w/o microscopy) 1.025 1 [facility] Work Phone: IO UA (automated w/o microscopy) Clear [facility] Work Phone: IO UA (automated w/o microscopy) Yellow [facility] Work Phone: IO Ultrasound, measurement p ost-void resid urine and/or bl cap; no imagon 06-21-2021 IO Ultrasound, measurement post-void resid urine and/or bl cap; no imag 0 mL [facility] Work Phone: Radiologyon 06-21-2021 MG Breast Diagnostic Please click on the link to view the study images Normal [facility] Work Phone: MG Breast Diagnostic Normal [facility] [address] Work Phone: Tobacco Screening.on 022 Fall risk assessment a) No falls within the last year [facility] Work Phone: Tobacco use status [facility] b) No [facility] Work Phone: ULTRASOUND LIMITED BREASTon 06-21-2021 ULTRASOUND LIMITED BREAST Patient Name: MICHAEL WELLER STUDY: DIGITAL DIAG MAMM BILAT WITH SUSANA; BREAST ULTRASOUND; 06/21/2021 3:05 pm; 06/21/2021 3:31 pm ACCESSION NUMBER(S): [id number]; [id number] ORDERING CLINICIAN: RAFAELA ARGUELLO INDICATION: Right breast [...] breast ultrasound was performed by a registered supervisor blasting utilizing elastography. The irregular hypoechoic parallel mass [...] any future breast imaging appointments, please call [phone] ([phone]). Patient letter sent SAAPPR Electronically signed by: MOHAN ROMANO MD Normal [facility] Ultrasound Limited [place] 06-21-2021 MG Breast Screening Normal [facility] [address] Work Phone: IO UA (automated w/o microsc opy)on 06-04-2021 Protein (U) [Mass/Vol] Negative DL-JMBT-Mzvudq ke 200 Work Phone: IO UA (automated w/o microscopy) Negative CT-TBXD-Uotqfw ke 200 Work Phone: IO UA (automated w/o microscopy) Normal EU-GRTQ-[facility]ox ke [address] Work Phone: IO UA (automated w/o microscopy) 7.0 1 FW-NSEC-Hyimny ke [address] Work Phone: IO UA (automated w/o microscopy) 1.020 1 PR-VONO-Pdadfm ke 200 Work Phone: IO UA (automated w/o microscopy) Clear HH-LQIQ-Faburd ke [address] Work Phone: IO UA (automated w/o microscopy) Yellow WK-ZGQL-Tavexf ke 200 Work Phone: Tobacco Screening.on 022 Adult depression screening assessment No MP-WSPC-Luiz tla ke [address] Work Phone: Fall risk assessment a) No falls within the last year PU-HUOM-Darblx ke [address] Work Phone: Last menstrual period start date 14May2021 ML-XGMV-Jwailf ke 200 Work Phone: Tobacco use status CPHS b) No JJ-RPPQ-Jzsuvf ke 200 Work Phone: PAP ACOG PANEL 2: 30 to 65on 03-28-2021 . . Normal [facility] Comment on above: Result Comment: Perf ormed at: WB Performed By: #### [id number] #### [facility] [address] [place] [address] Dr. Kalyn Gutierrez Age Gdln ACOG Testing 30-65 Normal [facility] Comment on above: Performed By: #### [id number] #### [facility] [address] [place] [address] Dr. Kalyn Gutierrez DIAGNOSIS: Comment Normal [facility] Comment on above: Result Comment: NEGA TIVE FOR INTRAEPITHELIAL LESION OR MALIGNANCY. Performed at: WB Performed By: #### [id number] #### [facility] [address] [place] [address] Dr. Kalyn Gutierrez HPV Aptima Negative Normal Negative [facility] Comment on above: Result Comment: This nucleic acid amplification test detects fourteen high-risk HPV types (16,18,31,33,35,39,45,51,52,56,58,59,66,68) without differentiation. Performed at: =G Performed By: #### [id number] #### [facility] [address] [place] [address] Dr. Kalyn Gutierrez Methodology: Comment Normal [facility] Comment on above: Result Comment: This liquid based ThinPrep(R) pap test was screened with the use of an image guided system. Performed at: WB Performed By: #### [id number] #### [facility] [address] [place] [address] Dr. Kalyn Gutierrez Note: Comment Normal [facility] Comment on above: Result Comment: The Pap smear is a screening test designed to aid in the detection of premalignant and malignant conditions of the uterine cervix. It is not a diagnostic procedure and should not be used as the sole means of detecting cervical cancer. Both false-positive and false-negative reports do occur. . Performed at: WB Performed By: #### [id number] #### [facility] [address] [place] [address] Dr. Kalyn Gutierrez Performed by: Comment Normal [facility] Comment on above: Result Comment: Tawnya Del Rio, Stringed Instrument Repairer (ASCP) Performed at: WB Performed By: #### [id number] #### [facility] [address] [place] [address] Dr. Kalyn Gutierrez Specimen adequacy: Comment Normal [facility] Comment on above: Result Comment: Sati sfactory for evaluation. Endocervical and/or squamous metaplastic cells (endocervical component) are present. Performed at: WB Performed By: #### [id number] #### [facility] [address] [place] [address] Dr. Kalyn Gutierrez Vital Signs Date Time Vital Sign Value Performing Clinician Facility 04-14-2024 15:19-0500 Body mass index (BMI) [Ratio] 35.91 kg/m2 Merary MCBRIDE Work Phone: [facility] 04-14-2024 15:19-0500 Body weight 97.89 kg Merary MCBRIDE Work Phone: [facility] 04-14-2024 15:19-0500 Diastolic blood pressure 70 mm[Hg] Merary MCBRIDE Work Phone: [facility] 04-14-2024 15:19-0500 Systolic blood pressure 110 mm[Hg] Merary MCBRIDE Work Phone: [facility] 03-16-2024 16:18-0500 Body mass index (BMI) [Ratio] 34.58 kg/m2 Matt Daya DO Work Phone: [facility] 03-16-2024 16:18-0500 Body weight 94.26 kg Matt Daya DO Work Phone: [facility] 03-16-2024 16:18-0500 Diastolic blood pressure 72 mm[Hg] Matt Daya DO Work Phone: [facility] 03-16-2024 16:18-0500 Systolic blood pressure 116 mm[Hg] Matt Daya DO Work Phone: [facility] 01-05-2024 11:51-0400 Body mass index (BMI) [Ratio] 30.45 kg/m2 Maryann Mic-Sachin Work Phone: 3(870)853-477667 [place] [address] 01-05-2024 11:51-0400 Body temperature 98.2 [degF] Maryann Mic-Baciliowicz Work Phone: [facility] 01-05-2024 11:51-0400 Body weight 83.01 kg Maryann Mic-Sachin Work Phone: 3(415)291-640767 [place] [address] 01-05-2024 11:51-0400 Diastolic blood pressure 76 mm[Hg] Maryann Mic-Fletchersharmeetcz Work Phone: 7(320)430-069167 [place] [address] 01-05-2024 11:51-0400 Heart rate 74 /min Maryann Mic-Lobocz Work Phone: [facility] 01-05-2024 11:51-0400 Respiratory rate 18 /min Maryann Mic-Sachin Work Phone: 9(536)822-084267 [place] [address] 01-05-2024 11:51-0400 SaO2% (BldA) [Mass fraction] 98 % Maryann LemusSachin Work Phone: [facility] 01-05-2024 11:51-0400 Systolic blood pressure 119 mm[Hg] Maryann LemusSachin Work Phone: [facility] 09-05-2023 13:24-0400 Body height 165.1 cm [facility] 09-05-2023 13:24-0400 Body mass index (BMI) [Ratio] 29.2 kg/m2 [facility] 09-05-2023 13:24-0400 Body temperature 97.9 [degF] [facility] 09-05-2023 13:24-0400 Body weight 79.83 kg [facility] 09-05-2023 13:24-0400 Diastolic blood pressure 85 mm[Hg] [facility] 09-05-2023 13:24-0400 Heart rate 106 /min [facility] 09-05-2023 13:24-0400 Respiratory rate 18 /min [facility] 09-05-2023 13:24-0400 SaO2% (BldA) [Mass fraction] 96 % [facility] 09-05-2023 13:24-0400 Systolic blood pressure 120 mm[Hg] [facility] 07-22-2023 14:37-0400 Body height 165.1 cm Jhonny Issa MD Work Phone: [facility] 07-22-2023 14:37-0400 Body mass index (BMI) [Ratio] 30.72 kg/m2 Jhonny Issa MD Work Phone: [facility] 07-22-2023 14:37-0400 Body weight 83.73 kg Jhonny Issa MD Work Phone: [facility] 07-22-2023 14:37-0400 Diastolic blood pressure 78 mm[Hg] Jhonny Issa MD Work Phone: 4(175)737-913830 [place] [address] 07-22-2023 14:37-0400 Heart rate 111 /min Jhonny Issa MD Work Phone: 2(585)063-404630 [place] [address] 07-22-2023 14:37-0400 Systolic blood pressure 118 mm[Hg] Jhonny Issa MD Work Phone: 1(913)858-087630 [place] [address] 04-27-2023 15:40-0500 Body height 165.1 cm Jhonny Issa MD Work Phone: 9(748)275-958130 [place] [address] 04-27-2023 15:40-0500 Body mass index (BMI) [Ratio] 34.15 kg/m2 Jhonny Issa MD Work Phone: 6(925)851-877830 [place] [address] 04-27-2023 15:40-0500 Body weight 93.08 kg Jhonny Issa MD Work Phone: 7(529)942-870030 [place] [address] 04-27-2023 15:40-0500 Diastolic blood pressure 60 mm[Hg] Jhonny Issa MD Work Phone: 8(020)738-808430 [place] [address] 04-27-2023 15:40-0500 Heart rate 123 /min Jhonny Issa MD Work Phone: 1(444)804-048930 [place] [address] 04-27-2023 15:40-0500 Respiratory rate 14 /min Jhonny Issa MD Work Phone: 3(541)180-398930 [place] [address] 04-27-2023 15:40-0500 Systolic blood pressure 104 mm[Hg] Jhonny Issa MD Work Phone: 3(652)552-523330 [place] [address] 02-19-2023 10:39-0500 Body height 165.1 cm Jhonny Issa MD Work Phone: 6(661)278-053230 [place] [address] 02-19-2023 10:39-0500 Body mass index (BMI) [Ratio] 36.08 kg/m2 Jhonny Issa MD Work Phone: 1(220)376-688630 [place] [address] 02-19-2023 10:39-0500 Body weight 98.34 kg Jhonny Issa MD Work Phone: 7(942)757-800630 [place] [address] 02-19-2023 10:39-0500 Diastolic blood pressure 83 mm[Hg] Jhonny Issa MD Work Phone: [facility] 02-19-2023 10:39-0500 Heart rate 94 /min Jhonny Issa MD Work Phone: [facility] 02-19-2023 10:39-0500 Systolic blood pressure 117 mm[Hg] Jhonny Issa MD Work Phone: [facility] 07-02-2022 13:20-0400 Body height 165.1 cm Bolivar Sherman Other [employer] Other 07-02-2022 13:20-0400 Body mass index (BMI) [Ratio] 33.28 kg/m2 Bolivar Sherman Other [employer] Other 07-02-2022 13:20-0400 Body weight 90.72 kg Bolivar Sherman Other [employer] Other 07-02-2022 13:20-0400 Diastolic blood pressure 78 mm[Hg] Bolivar [address] Other [employer] Other 07-02-2022 13:20-0400 Respiratory rate 18 /min Bolivar Sherman Other [employer] Other 07-02-2022 13:20-0400 SaO2% (BldA) [Mass fraction] 99 % [address] Other [employer] Other 07-02-2022 13:20-0400 Systolic blood pressure 117 mm[Hg] Bolivar Sherman Other [employer] Other 10-14-2021 15:07-0400 Diastolic blood pressure 98 mm[Hg] Rafaela Arguello Work Phone: [facility] Work Phone: 10-14-2021 15:07-0400 Heart rate 103 /min Rafaela Arguello Work Phone: [facility] Work Phone: 10-14-2021 15:07-0400 Systolic blood pressure 132 mm[Hg] Rafaela Arguello Work Phone: [facility] Work Phone: 06-21-2021 08:13-0400 Body height 165.1 cm Rafaela Arguello Work Phone: [facility] Work Phone: 06-21-2021 08:13-0400 Body mass index (BMI) [Ratio] 33.28 kg/m2 Rafaela Arguello Work Phone: [facility] Work Phone: 06-21-2021 08:13-0400 Body surface area Derived from formula 1.98 m2 Rafaela Arguello Work Phone: [facility] Work Phone: 06-21-2021 08:13-0400 Body temperature 97.2 [degF] Rafaela Arguello Work Phone: [facility] Work Phone: 06-21-2021 08:13-0400 Body weight 90.72 kg Rafaela Arguello Work Phone: [facility] Work Phone: 06-21-2021 08:13-0400 Diastolic blood pressure 82 mm[Hg] Rafaela Arguello Work Phone: [facility] Work Phone: 06-21-2021 08:13-0400 Heart rate 89 /min Rafaela Arguello Work Phone: [facility] Work Phone: 06-21-2021 08:13-0400 Systolic blood pressure 115 mm[Hg] Rafaela Arguello Work Phone: [facility] Work Phone: 06-04-2021 13:05-0400 Body height 167.64 cm Rafaela Silva Arguello Work Phone: XG-JOHQ-Bufuwqcd 200 Work Phone: 06-04-2021 13:05-0400 Body mass index (BMI) [Ratio] 32.77 kg/m2 Rafaela Silva Arguello Work Phone: ZM-IEVO-Zcyqpwps 200 Work Phone: 06-04-2021 13:05-0400 Body surface area Derived from formula 2.01 m2 Rafaela Arguello Work Phone: QU-VQJZ-Mabeyiox 200 Work Phone: 06-04-2021 13:05-0400 Body temperature 98.2 [degF] Rafaela Arguello Work Phone: VE-FXCO-Mdmturql 200 Work Phone: 06-04-2021 13:05-0400 Body weight 92.08 kg Rafaela Silva Arguello Work Phone: VQ-CZXK-Gkzobulr 200 Work Phone: 06-04-2021 13:05-0400 Diastolic blood pressure 76 mm[Hg] Rafaela Arguello Work Phone: US-NVPY-Bhrxtacj 200 Work Phone: 06-04-2021 13:05-0400 Heart rate 80 /min Rafaela Silva Arguello Work Phone: NK-WODU-Lztziczc 200 Work Phone: 06-04-2021 13:05-0400 Respiratory rate 16 /min Rafaela Arguello Work Phone: AS-YXQJ-Ibdxgvne 200 Work Phone: 06-04-2021 13:05-0400 Systolic blood pressure 122 mm[Hg] Rafaela Arguello Work Phone: HC-JLTS-Cbkccscw 200 Work Phone: 12-07-2019 11:03-0400 BMI (Body Mass Index) 31.95 kg/m2 Rafaela Arguello MP-WSPC-[place] 200 Work Phone: 12-07-2019 11:03-0400 Body Temperature 98.3 [degF] Rafaela Arguello MP-WSPC-[place] 200 Work Phone: Comment on above: Method: Temporal 12-07-2019 11:03-0400 Body weight 87.77 kg Rafaela Arguello KW-ZHTZ-Ggvkulja 200 Work Phone: 12-07-2019 11:03-0400 BP Diastolic 74 mm[Hg] Rafaela Arguello OA-GZJY-Icqhvcoj 200 Work Phone: 12-07-2019 11:03-0400 BP Systolic [...] 05-16-2019 18:12-0400 Body Temperature 98.3 [degF] Rafaela [facility] [facility] Work Phone: 05-16-2019 [...] Date Encounter Type Care Provider Facility Start: 04-14-2024 End: 04-14-2024 ambulatory MERARY WILCOX Not Available Start: 04-14-2024 End: 04-14-2024 Patient encounter procedure Merary MCBRIDE Work Phone: [facility] Start: 04-14-2024 End: 04-14-2024 Periodic preventive med est patient 18-39 yrs Merary MCBRIDE Work Phone: [facility] Comment on above: 15 weeks gestation o f ; Second trimester ; Well woman exam with routine gynecological exam; Screening, , for anatomic survey; Exposure to STD; Vaginal discharge; Nausea Start: 04-14-2024 End: 04-14-2024 Bamboo flowsheet Merary MCBRIDE Work Phone: [facility] Start: 04-14-2024 End: 04-14-2024 Bamboo flowsheet Merary Wilcox PA Work Phone: [facility] Start: 03-16-2024 End: 03-16-2024 flow sheet Matt [...] Start: 03-08-2024 End: 03-08-2024 ambulatory Matt Daya Facility:[facility] Start: 03-08-2024 End: 03-08-2024 Departed Referred Matt Daya DO Work Phone: [facility] Start: 02-16-2024 End: 02-16-2024 Office outpatient visit 5 minutes [facility] Daya Nurse [facility] Comment on above: GA: 7w3d Start: 02-16-2024 End: 02-16-2024 ambulatory MERARY WILCOX Not Available Start: 01-28-2024 End: 01-28-2024 Clinisync [...] minutes Maryann Davison Work Phone: [facility] [place] Comment on above: Acute lower UTI (Adrianna eulogio Dx); Urine frequency Start: 10-20-2023 End: 10-26-2023 Clinisync Result Encounter Matt Daya DO Work Phone: [facility] Unsolicited Start: 10-20-2023 End: 10-26-2023 Clinisync Result Encounter Matt Daya DO Work Phone: [facility] Unsolicited Start: 10-20-2023 End: 10-20-2023 ambulatory MATT DAYA Not Available Start: 09-05-2023 End: 09-05-2023 Departed Referred AUTOMATION DEVELOPER Swetha Andersen Work Phone: [facility] 250 Start: 09-05-2023 End: 09-05-2023 ambulatory PHYSICIAN NO [facility] Work Phone: Start: 09-05-2023 End: 09-05-2023 Patient encounter procedure [facility] Physician [facility] Amandeep Work Phone: Start: 09-01-2023 End: 09-01-2023 ambulatory ROULA BLEDSOE Facility:[facility] Start: 09-01-2023 End: 09-01-2023 Patient encounter procedure Roula Bledsoe AUTOMATION DEVELOPER.MARCELINA Work Phone: [facility] [place] Comment on above: Dermatofibroma (Prim ottoniel Dx); Lentigines; Multiple benign nevi; Valles angioma; Hx of malignant melanoma Start: 07-22-2023 End: 07-22-2023 ambulatory [facility] Start: 07-22-2023 End: 07-22-2023 Office outpatient visit 25 minutes Jhonny Issa MD Work Phone: [facility] Comment on above: Encephalopathy (Prim ottoniel Dx); Attention deficit hyperactivity disorder (ADHD), predominantly inattentive type; Insomnia due to medical condition; Anxiety Start: 07-02-2023 End: 07-02-2023 ambulatory MATT STAPLETON Not Available Start: 04-27-2023 End: 04-27-2023 ambulatory [facility] Start: 04-27-2023 End: 04-27-2023 Office outpatient visit 25 minutes Jhonny Issa MD Work Phone: [facility] Comment on above: Encephalopathy (Prim ottoniel Dx); Attention deficit hyperactivity disorder (ADHD), predominantly inattentive type; Insomnia due to medical condition; Anxiety Start: 03-04-2023 End: 03-04-2023 ambulatory [facility] Start: 03-04-2023 End: 03-04-2023 Office outpatient visit 15 minutes Karolina Cipriano Donovan SORIA Work Phone: [facility] Comment on above: Anxiety Start: 02-19-2023 End: 02-19-2023 ambulatory [facility] Start: 02-19-2023 End: 02-19-2023 Office outpatient new 60 minutes Jhonny Issa MD Work Phone: [facility] Comment on above: Encephalopathy (Prim ottoniel Dx); Anxiety; Attention deficit hyperactivity disorder (ADHD), predominantly inattentive type Start: 12-19-2022 End: 12-19-2022 Subsequent hospital visit by physician Martha Breast Ultrasound 1 [facility] Comment on above: Lump in female breas t Start: 12-19-2022 End: 12-19-2022 ambulatory [facility] Start: 12-19-2022 End: 12-19-2022 ambulatory KAROLINA Cota [facility] Start: 12-19-2022 End: 12-19-2022 Subsequent hospital visit by physician Martha Harris 1 [facility] Comment on above: Abnormal mammogram Start: 12-03-2022 End: 12-03-2022 ambulatory KAROLINA Cota [facility] Start: 10-16-[address] Work Phone: [facility] Work Phone: Start: 07-02-2022 Office outpatient vi sit 25 minutes [facility] Start: 07-02-2022 End: 07-02-2022 ambulatory DO Dnaielle Infante Work Phone: [facility] Work Phone: Start: 07-02-2022 End: 07-02-2022 Patient encounter procedure DO Danielle Infante Work Phone: [facility] 250 Start: 04-14-2022 Rx Renewal [address] Work Phone: XU-UEMD-Rrbxnoto 200 Work Phone: Start: 03-17-2022 Rx Renewal Rafaela Sanabria rd Work Phone: SB-UQRM-Oguhlugh 200 Work Phone: Start: 02-10-2022 ambulatory Ms. Rafaela Norton edmar Arguello Facility:[id number] Start: 02-10-2022 Office outpatient vi sit 25 minutes Rafaela Arguello Work Phone: OG-OLMU-Xapaunur 200 Work Phone: Start: 10-30-2021 Rx Renewal Rafaela Sanabria rd Work Phone: NW-UEJE-Cjmxtboh 200 Work Phone: Start: 10-17-2021 End: 10-17-2021 Patient encounter procedure Roula Bledsoe APRN.BETTING AGENCY MANAGER Work Phone: [facility] [place] Comment on above: Lentigines (Primary Dx); Multiple benign nevi; Valles angioma; Exposure to tanning bed, sequela; Hx of malignant melanoma; Dermatofibroma Start: 10-14-2021 Office consultation new/estab patient 60 min Rafaela Arguello Work Phone: [facility] Work Phone: Start: 10-14-2021 Patient encounter procedure Rafael[facility]guello [facility] Work Phone: Start: 10-08-2021 Office outpatient vi sit 25 minutes Rafaela Arguello Work Phone: [facility] 200 Work Phone: Start: 10-08-2021 ambulatory Ms. Russo Cierra Arguello Facility:[id number] Start: 10-07-2021 End: 10-07-2021 Departed Referred DO Danielle Infante Work Phone: [facility] Start: 10-02-2021 Rx Renewal Rafaela Sanabria rd Work Phone: DG-JINC-Ycbuycwc 200 Work Phone: Start: 09-06-2021 Patient encounter procedure Rafaela Arguello Work Phone: [facility] Work Phone: Start: 09-06-2021 ambulatory Ms. Rafaela hyatt Hema Facility:[id number] Start: 07-12-2021 End: 07-12-2021 ambulatory NONE LISTED REQUEST Facility:H1 Start: 07-11-2021 Encounter for preprocedural cardiovascular examination DR MATT [facility]AP[facility] Start: 07-10-2021 End: 07-11-[address] MATT STAPLETON Facility:H1 Start: 07-10-2021 End: 07-11-2021 Encounter for preprocedural cardiovascular examination DR MATT STAPLETON Facility:H1 Start: 07-09-[address] MATT STAPLETON Facility :H1 Start: 07-01-[address] Work Phone: MY-CJWU-Srhkzteh 200 Work Phone: Start: 06-28-2021 Chart Update Rafaela E Elly avalos Work Phone: BG-STQU-Sdgdvzlj 200 Work Phone: Start: 06-27-[address] Work Phone: US-XUCC-Hspqovos 200 Work Phone: Start: 06-21-2021 End: 06-22-[address] MATT STAPLETON Facility:H1 Start: 06-04-2021 Office outpatient vi sit 25 minutes Rafaela Arguello Work Phone: GS-MNXF-Yibyzisl 200 Work Phone: Start: 06-04-2021 Patient encounter procedure Rafaela Arguello Work Phone: TK-LXNG-Tygznrfe 200 Work Phone: Start: 06-04-2021 ambulatory Rafaela Arguello Facility:[id number] Start: 03-25-2021 End: 03-25-[address] MATT STAPLETON Facility:H1 Start: 12-07-2019 Patient encounter procedure Rafaela Arguello PI-EUUS-Vlrgyyzs 200 Work Phone: Start: 05-16-2019 Patient encounter procedure Rafaela Arguello UY-IIXN-Fwwb [facility] Work Phone: Start: 09-27-2018 Patient encounter procedure Rafaela Arguello BF-ZTKQ-Wvti [facility] Work Phone: Start: 09-14-2018 Patient encounter procedure Rafaela Hema YJ-CPNJ-Sify [facility] Work Phone: Start: 07-17-2017 Patient encounter procedure Rafaela Arguello KY-ZOVN-Ujgg [facility] Work Phone: Procedures Date Procedure Procedure Detail Performing Clinician Start: 04-14-2024 Urnls dip stick/tabl et rgnt non-auto w/o micrscp Merary MCBRIDE Work Phone: Start: 03-16-2024 Urnls dip stick/tabl et rgnt [...] Start: 12-19-2022 Diagnostic mammograp hy computer-aided detcj gopal Man DO Work Phone: Start: 12-03-2022 Comprehensive metabo lic 1999 panel - Serum or Plasma KAROLINA MAN [...] Surgery Rafaela Arguello Hyperlipidemia screening Tho francesca [place] Other Procedure on back Rafaela crotf Work Phone: Removal of suture Bolivar For anabell Other Tonsillectomy Rafaela Arguello Total replacement of hip Keaton Arguello Plan of Treatment Date Care Activity Detail Author Start: 10-26-2037 Zoster Vaccines (1 o f 2) Zoster Vaccines (1 of 2) [facility] Start: 10-19-2028 Screening for malignant neoplasm of cervix [facility] Start: 10-18-2027 Screening for malignant neoplasm of cervix [facility] Start: 10-19-2026 Screening for malignant neoplasm of cervix [facility] Start: 10-17-2025 Screening for malignant neoplasm of cervix [facility] Start: 04-23-2025 Lipid panel Lipid Panel [facility] Start: 10-26-2024 End: 10-26-2024 Patient encounter procedure 10/26/2024 4:00 PM EDT Office Visit [facility] [address] [place] [address] Matt Stapleton, DO [address] [place] [address] [facility] Start: 05-23-2024 End: 05-23-2024 Patient encounter procedure 05/23/2024 8:50 AM EDT Routine [facility] [address] [place] [address] Matt Stapleton, DO [address] [place] [address] [facility] Start: 05-23-2024 End: 05-23-2024 Professional / ancillary services management 05/23/2024 8:00 AM EDT Ancillary Procedure [facility] [address] [place] [address] [facility] Start: 04-14-2024 End: 04-14-2024 Patient encounter procedure 04/14/2024 3:50 PM EST Routine [facility] [address] [place] [id number] Merary Wilcox PA [address] [place] [address] [facility] Start: 04-14-2024 End: 05-12-2024 Alpha fetoprotein, maternal Alpha fetoprotein, maternal Lab Routine 15 weeks gestation of Second trimester Expected: 04/14/2024 (Approximate), Expires: 05/12/2024 [facility] Comment on above: Expected: 04/14/2024 (Approximate), Expires: 05/12/2024 Start: 04-14-2024 End: 04-14-2025 US for US OB 14+ weeks anatomy scan Imaging Routine Screening, , for anatomic survey Expected: 04/14/2024, Expires: 04/14/2025 [facility] Comment on above: Expected: 04/14/2024 , Expires: 04/14/2025 Start: 03-25-2024 Screening for malignant neoplasm of cervix [facility] Start: 03-16-2024 End: 03-16-2024 Patient encounter procedure [facility] Comment on above: Arrived Start: 03-08-2024 Bacteria identified in Urine by Culture Urine Culture [facility] Start: 03-08-2024 Urine culture [facility] Start: 02-16-2024 End: 02-15-2025 ABO/Rh ABO/Rh Lab Routine Missed menses , unspecified gestational age Expected: 02/16/2024 (Approximate), Expires: 02/15/2025 [facility] Comment on above: Expected: 02/16/2024 (Approximate), Expires: 02/15/2025 Start: 02-16-2024 End: 02-15-2025 Blood type and Indirect antibody screen panel - Blood Type and screen Lab Routine Missed menses , unspecified gestational age Expected: 02/16/2024 (Approximate), Expires: 02/15/2025 [facility] Work Phone: Comment on above: Expected: 02/16/2024 (Approximate), Expires: 02/15/2025 Start: 02-16-2024 End: 02-15-2025 Drugs of abuse panel - Urine by Screen method Rapid drug screen, urine Lab Routine , unspecified gestational age Encounter for supervision of normal first in first trimester Expected: 02/16/2024 (Approximate), Expires: 02/15/2025 [facility] Comment on above: Expected: 02/16/2024 (Approximate), Expires: 02/15/2025 Start: 02-16-2024 End: 02-16-2024 ambulatory 02/16/2024 8:30 AM EST Initial [facility] [address] [place] [address] [facility] Start: 02-16-2024 End: 02-16-2024 Professional / ancillary services management 02/16/2024 8:00 AM EST Ancillary Procedure [facility] [address] [place] [address] [facility] Start: 11-08-2023 COVID-19 Vaccine ( season) COVID-19 Vaccine () [facility] Start: 11-08-2023 Influenza vaccination [facility] Start: 10-14-2023 End: 10-14-2023 Patient encounter procedure 10/14/2023 3:15 PM EDT Office Visit [facility] [address] [place] [id number] Jhonny Issa MD [address] [facility] [address] [place], [place] [id number] [facility] Start: 09-05-2023 Bacteria identified in Urine by Culture [facility] Start: 07-22-2023 End: 07-22-2023 Patient encounter procedure 07/22/2023 3:15 PM EDT Office Visit [facility] [address] [place] [phone] Jhonny Issa MD [address] [facility] [address] [place], [place] [id number] [facility] Start: 04-27-2023 End: 04-27-2023 Patient encounter procedure 04/27/2023 3:15 PM EST Office Visit [facility] [address] [place] [phone] Jhonny Issa MD [address] [facility] [address] [place], [place] [phone] [facility] Start: 03-09-2023 Behavioral Health Screening Behavioral Health Screening [facility] Start: 03-04-2023 End: 03-04-2023 Patient encounter procedure 03/04/2023 8:40 AM EST Office Visit [facility] [address] [address] Karolina Man DO [address] [place] [address] [facility] Start: 02-19-2023 End: 02-20-2024 Drugs of abuse screen W Reflex confirm panel - Urine [facility] Service Area Work Phone: Comment on above: Expected: 02/19/2023 (Approximate), Expires: 02/20/2024 Start: 02-19-2023 End: 02-19-2023 Patient encounter procedure 02/19/2023 10:15 AM EST Office Visit [facility] [address] [facility] [address] [facility] [place] [id number] Jhonny Issa MD [address] [facility], [facility] [address] [place], [place] [id number] [facility] Start: 11-07-2022 COVID-19 Vaccine ( season) COVID-19 Vaccine ( season) [facility] Start: 11-07-2022 Influenza vaccination Influenza Vacc ine (#1) [facility] Start: 01-21-2022 FUV, Provider: Luz Aguilar, Status: Pen, Time: 3:40 PM FUV, Provider: Luz Aguilar, Status: Pen, Time: 3:40 PM [id number] 200 Work Phone: Start: 01-20-2022 [id number], Provider: Bisi Prabhakar, Status: Pen, Time: 5:00 PM [id number], Provider: Bisi Prabhakar, Status: Pen, Time: 5:00 PM [facility] Work Phone: Start: 01-13-2022 [id number], Provider: Bisi Prabhakar, Status: Pen, Time: 5:00 PM [id number], Provider: Bisi Prabhakar, Status: Pen, Time: 5:00 PM [facility] Work Phone: Start: 01-08-2022 [id number], Provider: Bisi Prabhakar, Status: Pen, Time: 4:00 PM [id number], Provider: Bisi Prabhakar, Status: Pen, Time: 4:00 PM [facility] Work Phone: Start: 01-01-2022 [id number], Provider: Bisi Prabhakar, Status: Pen, Time: 4:00 PM [id number], Provider: Bisi Prabhakar, Status: Pen, Time: 4:00 PM [facility] Work Phone: Start: 12-25-2021 [id number], Provider: Bisi Prabhakar, Status: Pen, Time: 4:00 PM [id number], Provider: Bisi Prabhakar, Status: Pen, Time: 4:00 PM [facility] Work Phone: Start: 12-17-2021 [id number], Provider: Bisi Prabhakar, Status: Pen, Time: 5:00 PM [id number], Provider: Bisi Prabhakar, Status: Pen, Time: 5:00 PM [facility] Work Phone: Start: 11-07-2021 Influenza vaccination INFLUENZA (#1) [facility] Start: 10-16-2021 NPV, Provider: Nafisa Bermudez, Status: Pen, Time: 1:00 PM NPV, Provider: Nafisa Bermudez, Status: Pen, Time: 1:00 PM [id number] 200 Work Phone: Start: 10-08-2021 [id number], Provider : Rafaela Arguello, Status: Pen, Time: 11:40 AM VIRFUVHOME, Provider: Rafaela Arguello, Status: Pen, Time: 11:40 AM [id number] 200 Work Phone: Start: 09-30-2021 FUV, Provider: Luz Aguilar, Status: Pen, Time: 1:40 PM FUV, Provider: Luz Aguilar, Status: Pen, Time: 1:40 PM [facility] Work Phone: Start: 09-18-2021 [id number], Provider: Bisi Prabhakar, Status: Pen, Time: 10:00 AM [id number], Provider: Bisi Prabhakar, Status: Pen, Time: 10:[address] [facility] Work Phone: Start: 09-06-2021 [id number], Provider: Biis Prabhakar, Status: Pen, Time: 8:00 AM [id number], Provider: Bisi Prabhakar, Status: Pen, Time: 8:00 AM [facility] Work Phone: Start: 08-02-2021 FUV, Provider: Luz Aguilar, Status: Pen, Time: 8:20 AM FUV, Provider: Luz Aguilar, Status: Pen, Time: 8:20 AM [facility] Work Phone: Start: 06-21-2021 NPV, Provider: Luz Aguilar, Status: Pen, Time: 8:00 AM NPV, Provider: Luz Aguilar, Status: Pen, Time: 8:00 AM [facility] Work Phone: Start: 03-27-2021 COVID-19 VACCINE (3 - Booster for Pfizer series) COVID-19 VACCINE (3 - Booster for Pfizer series) [facility] Start: 12-20-2020 COVID-19 Vaccine (3 - Pfizer series) COVID-19 Vaccine (3 - Pfizer series) [facility] Start: 01-09-2020 FFD mammogram Breast screening Mamm - Ultrasound of Breast [place] [id number] Work Phone: Start: 10-26-2017 HPV TESTING HPV TESTING [facility] Start: 10-26-2009 DTaP/Tdap/Td Vaccine s (1 - Tdap) DTaP/Tdap/Td Vaccines (1 - Tdap) [facility] Start: 10-26-2008 PAP TESTING PAP TESTING [facility] Start: 10-26-2008 Screening for malignant neoplasm of cervix [facility] Start: 10-26-2006 Hepatitis B Vaccine (1 of 3 - 19+ 3-dose series) Hepatitis B Vaccine (1 of 3 - 19+ 3-dose series) [facility] Start: 10-26-2006 Hepatitis B Vaccines (1 of 3 - 19+ 3-dose series) Hepatitis B Vaccines (1 of 3 - 19+ 3-dose series) [facility] Start: 10-26-2006 Urine microalbumin profile [facility] Start: 10-26-2005 HEPATITIS C SCREENING HEPATITIS C [facility] Start: 10-26-2005 Hepatitis C screening Hepatitis C [facility] Start: 10-26-2005 HIV [facility] Start: 10-26-2005 HIV screening [facility] Start: 10-26-2000 Varicella vaccination Varicell a Vaccines (1 of 2 - 13+ 2-dose series) [facility] Start: 1999 Adult depression screening assessment DEPRESSION SCREENING [facility] Start: 10-26-1988 MMR Vaccines (1 of 1 - Standard series) MMR Vaccines (1 of 1 - Standard series) [facility] Start: 10-26-1988 Varicella vaccination Varicell a Vaccines (1 of 2 - 2-dose childhood series) [facility] Start: 1987 HEPATITIS B (1 of 3 - 3-dose series) HEPATITIS B (1 of 3 - 3-dose series) [facility] Start: 1987 Hepatitis B Vaccines (1 of 3 - 3-dose series) Hepatitis B Vaccines (1 of 3 - 3-dose series) [facility] Start: 1987 HIV screening HIV Screening [facility] Start: 1987 Yearly Adult Physical Yearly Adult P hysical [facility] Bacteria identified in Urine by Culture Urine culture Microbiology Routine Missed menses Ordered: 02/16/2024 [facility] Comment on above: Ordered: 02/16/2024 CBC W Auto Differential panel - Blood CBC and differential Lab Routine Missed menses , unspecified gestational age Ordered: 02/16/2024 [facility] Comment on above: Ordered: 02/16/2024 CHLAMYDIA TRACHOMATI S (GENITO/STI) CHLAMYDIA TRACHOMATIS (GENITO/STI) Lab Routine Exposure to STD Ordered: 04/14/2024 [facility] Comment on above: Ordered: 04/14/2024 Hemoglobin A1c/Hemoglobin.total in Blood Hemoglobin A1c Lab Routine Missed menses , unspecified gestational age Ordered: 02/16/2024 [facility] Comment on above: Ordered: 02/16/2024 Hepatitis B virus surface Ag [Presence] in Serum or Plasma by Immunoassay Hepatitis B surface antigen Lab Routine Missed menses , unspecified gestational age Ordered: 02/16/2024 [facility] Comment on above: Ordered: 02/16/2024 Hepatitis C virus Ab [Presence] in Serum or Plasma by Immunoassay Hepatitis C antibody Lab Routine Missed menses , unspecified gestational age Ordered: 02/16/2024 [facility] Comment on above: Ordered: 02/16/2024 HIV-1/HIV-2 antigen/antibody combination immunoassay HIV-1 and HIV-2 antibodies Lab Routine Missed menses , unspecified gestational age Ordered: 02/16/2024 [facility] Comment on above: Ordered: 02/16/2024 Human papilloma viru s DNA [Presence] in Unspecified specimen by Probe with amplification HPV DNA probe, amplified Microbiology Routine Well woman exam with routine gynecological exam Ordered: 04/14/2024 [facility] Work Phone: Comment on above: Ordered: 04/14/2024 Neisseria gonorrhoea e DNA [Presence] in Unspecified specimen by GENTRY with probe detection Neisseria gonorrhea DNA probe, direct Lab Routine Exposure to STD Ordered: 04/14/2024 [facility] Comment on above: Ordered: 04/14/2024 Reagin Ab [Presence] in Serum by RPR RPR Lab Routine Missed menses , unspecified gestational age Ordered: 02/16/2024 [facility] Comment on above: Ordered: 02/16/2024 Rubella antibody, IgG Rubella an tibody, IgG Lab Routine Missed menses , unspecified gestational age Ordered: 02/16/2024 [facility] Comment on above: Ordered: 02/16/2024 SURESWAB(R) ADVANCED VAGINITIS PLUS, TMA SURESWAB(R) ADVANCED VAGINITIS PLUS, TMA Pathology and Cytology Routine Vaginal discharge Ordered: 04/14/2024 [facility] Comment on above: Ordered: 04/14/2024 [id number] e 200 Work Phone: NEGATED: Highlighted row has been ruled out! Planned Goals not documented [id number] 200 Work Phone: Immunizations Immunization Date Immunization Notes Care Provider Fa cility 10-25-2020 Pfizer-BioNTech COVI D-19 Vacc 30 MCG/0.3ML Intramuscular Suspension Rafaela Shira Arguello Work Phone: [id number] 200 Work Phone: 10-04-2020 Pfizer-BioNTech COVI D-19 Vacc 30 MCG/0.3ML Intramuscular Suspension Rafaela E Hema Work Phone: [id number] 200 Work Phone: Payers Date Payer Category Payer Self-pay [id number] [phone] [id number] 2022 Managed Care (Private) [facility] [id number] 2022 Private [facility] Insurance [employer] [id number] 2020 Unknown 1987 Unknown [id number] 2.16840.1.055484.3.579.2. 593 1987 Unknown [id number] 2.16.840.1.908406.3.579.2. 593 1987 Unknown [id number] 2.16.840.1.703756.3.579.2. 593 1987 Unknown [id number] 2.16840.1.469603.3.579.2. 593 1987 Unknown [id number] 2.16.840.1.164829.3.579.2. 593 1987 Unknown [id number] 2.840.1.718366.3.579.2. 356 1987 Unknown [id number] 2.840.1.410237.3.579.2. 356 1987 Unknown [id number] 2.0.1.498378.3.579.2. 356 1987 Unknown [id number] 2.840.1.689004.3.579.2. 356 1987 Unknown [id number] 2.840.1.600367.3.579.2. 356 1987 Unknown [id number] 2.840.1.927477.3.579.2. 1244 1987 Unknown [id number] 2.840.1.293352.3.579.2. 1243 1987 Unknown [id number] 2.840.1.458408.3.579.2. 1244 1987 Unknown [id number] 2.840.1.479908.3.579.2. 1243 1987 Unknown [id number] 2.840.1.876290.3.579.2. 124 1987 Unknown [id number] 2.840.1.515295.3.579.2. 1242 1987 Unknown [id number] 2.16.840.1.043629.3.579.2. 1243 1987 Unknown [id number] 2.16.840.1.334864.3.579.2. 1243 1987 Unknown [id number] 2.16.840.1.325309.3.579.2. 1259 1987 Unknown [id number] 2.16.840.1.716784.3.579.2. 1259 1987 Unknown [id number] 2.16.840.1.262803.3.579.2. 1259 1987 Unknown [id number] 2.16.840.1.626061.3.579.2. 1259 1987 Unknown [id number] 2.16.840.1.899331.3.579.2. 1259 1959 Unknown [id number] Unknown [id number] 2.16.840.1.723817.3.579.2. 531 Unknown [id number] 2.16.840.1.691571.3.579.2. 531 Social History Date Type Detail Facility Assertion Tobacco smoking consumption unknown (finding) [id number] Work Phone: Start: 12-03-2022 End: 07-22-2023 Non-smoker Non-smoker [facility] Start: 02-19-2023 End: 09-05-2023 Tobacco smoking status ILIS Never smoked tobacco [facility] Start: 10-17-2021 End: 09-01-2023 Alcohol intake Current drinker of alcohol (finding) [facility] Start: 05-14-2010 History SDOH Alcohol Comment occasional [facility] Start: 1987 Sex Assigned At Not on file [facility] Start: 1987 Sex Assigned At Female F [facility] Start: 12-03-2022 End: 07-22-2023 Sex Assigned At [facility] consumption unknown [facility] Start: 12-09-2022 End: 01-05-2024 Exposure to SARS-CoV-2 (event) Not sure [facility] Start: 02-19-2023 Tobacco use and exposure Smokeless tobacco non-user [facility] Work Phone: Start: 02-19-2023 End: 01-05-2024 Alcohol intake Defer [facility] Work Phone: National Score (1-100), lower number is lower risk 52 [facility] Start: 01-09-2024 [facility] Start: 03-09-2024 Sex Female (finding) [facility] Goals Date Patient Goal Desired Activity /State Personal health goal Functional Status Date Assessment Result Facility NEGATED: Highlighted row Functional performance Functional status health issues are not documented Disease [id number] [facility] Work Phone: Mental Status Date Assessment Result Facility NEGATED: Highlighted row Cognitive function [Interpretation] Cognitive status health issues are not documented Disease [id number] [facility] [facility] Work Phone: Clinical Notes 03-04-2012 to 04-14-2024 Keren Hopper, SUZY - 04/14/2024 2:50 PM Sandra Nixon LPN - 03/16/2024 3:30 PM Filemon Dick, NUMERICAL CONTROL MACHINE TOOL OPERATOR - 02/16/2024 8:30 AM Renuka Davison - 01/05/2024 11:45 AM EDTPatient Instructions Note Date & Type Note Facility 04-14-2024 History of Present illness Narrative Reason for Appointment: Patient ID: Michael Weller is a 38 y.o. female who presents for Routine Visit Patient presents today for Return OB appointment. MEDICATIONS Current Outpatient Medications Medication Instructions promethazine (PHENERGAN) 12.5 mg, Oral, Every 6 hours PRN ALLERGIES Allergies Allergen Reactions Cat Dander Itching [...] SYSTEMS Review of Systems: Review of Systems All other systems reviewed and are negative. OBJECTIVE Objective: Physical Exam Constitutional: Appearance: Normal [...] nursing note reviewed. Exam conducted with a dyeing machine tender present. Vitals: Estimated body mass index is 35.91 kg/m as calculated from the following: Height as of 05/30/21: 5' 5 . Weight as of this encounter: 215 lb 12.8 oz. BP: 110/70 Patient's last menstrual period was 12/18/2023. ASSESSMENT & PLAN ICD-10-CM 1. 15 weeks gestation of Z3A.15 POCT urinalysis dipstick manually resulted Alpha fetoprotein, maternal Alpha fetoprotein, maternal CANCELED: POCT urinalysis dipstick manually resulted 2. Second trimester Z34.92 POCT urinalysis dipstick manually resulted Alpha fetoprotein, maternal Alpha fetoprotein, maternal CANCELED: POCT urinalysis dipstick manually resulted 3. Well woman exam with routine gynecological exam Z01.419 HPV DNA probe, amplified CANCELED: Pap Smear 4. Screening, , for anatomic survey Z36.89 US OB 14+ weeks anatomy scan 5. Exposure to STD Z20.2 CHLAMYDIA TRACHOMATIS (GENITO/STI) Neisseria gonorrhea DNA probe, direct 6. Vaginal discharge N89.8 SURESWAB(R) ADVANCED VAGINITIS PLUS, TMA Return OB: Return OB/Annual Exam: Patient presents today for an annual exam/routine obstetrics appointment. Patient is currently 15w5d . Patient is doing well and states she has no complaints. Cultures was obtained without difficulty and patient was given [facility] order to have obtained. Orders Placed This Encounter Procedures HPV DNA probe, amplified US OB 14+ weeks anatomy scan CHLAMYDIA TRACHOMATIS (GENITO/STI) Neisseria gonorrhea DNA probe, direct Alpha fetoprotein, maternal POCT urinalysis dipstick manually resulted Follow Up: Patient is to return to our office in 4 weeks for routine OB appointment Documented by Keren Hopper LPN on behalf of: RAE Teixeira documented in this encounter [facility] 03-16-2024 History of Present illness Narrative Reason [...] nursing note reviewed. Exam conducted with a dyeing machine tender present. Vitals: Estimated body mass index is [...] or undercooked meat, and stay away from [facility]. Patient has been consulted regarding any further do's and don'ts of . Patient voiced understanding and all questions and concerns were answered. Pt was offered [facility] referral for AMA, pt considering. Orders Placed This Encounter Procedures POCT urinalysis dipstick manually resulted Follow Up: Patient is to return in 4 weeks for routine OB appointment. Documented by Bisi Nixon LPN on behalf of: Matt Stapleton DO documented in this encounter [facility] 02-16-2024 History of Present illness Narrative Reason [...] or undercooked meat, and stay away from [facility]. Patient has also been advised to [...] Cathy Dick LPN documented in this encounter [facility] 01-05-2024 History of Present illness Narrative Subjective [...] Ketones, Urine NEGATIVE NEGATIVE mg/dl POC Specific [place], Urine 1.010 1.005 - 1.035 POC Blood, [...] pyelonephritis, Macrobid prescribed. She will take Azo uwdh-frn-qrxozqh, acetaminophen, fluids, etc. Follow-up as needed. Patient [...] Davison 12:46 PM documented in this encounter [facility] Work Phone: 01-05-2024 Instructions Maryann Davison - 01/05/2024 11:45 AM EDT No signs of acute pyelonephritis, Macrobid prescribed. She will take Azo xirm-iqp-yyvnxsc, acetaminophen, fluids, etc. Follow-up as needed. Patient declined urine culture after counseling. documented in this encounter [facility] Work Phone: 09-01-2023 Note HNO ID: [id number] Author: ROULA BLEDSOE APRN.BETTING AGENCY MANAGER Service: ? Author Type: Nurse Practitioner [...] Past Histories independently gathered by the clinical academic support director and the remaining scribed note accurately describes my personal service to the patient. Roula Bledsoe APRN.MARCELINA September 01, 2023 11:26 AM Medical Decision Making: Problems: Moderate: 2+ stable chronic illnesses Risk: Low: Low risk from testing/treatment Medical Decision Making Level: 3 - Low [facility] 09-01-2023 History of Present illness Narrative [...] The patient is seen and examined by oRula Bledsoe CNP and the following reflects his/her service. Scribed by Karolina Alcantara LPN /Gini Hanna MA I agree with the Chief Complaint, ROS, and Past Histories independently gathered by the clinical academic support director and the remaining scribed note accurately describes my personal service to the patient. Roula Bledsoe APRN.CNP September 01, 2023 11:26 AM Medical Decision Making: Problems: Moderate: 2+ stable chronic illnesses Risk: Low: Low risk from testing/treatment Medical Decision Making Level: 3 - Low documented in this encounter [facility] 07-22-2023 History of Present illness Narrative [...] 07/22/2023 3:01 PM documented in this encounter [facility] Work Phone: 04-27-2023 History of Present illness [...] 04/27/2023 4:18 PM documented in this encounter [facility] Work Phone: 03-04-2023 History of Present illness [...] sooner with any questions or concerns Karolina A Donovan, DO documented in this encounter [facility] Work Phone: 02-19-2023 History of Present illness Narrative Michael Weller 37 y.o. SUBJECTIVE HPI Michael 37-year-old young lady who was seen today for evaluation of a possible attention deficit disorder difficulty at work at home. She has been having the symptoms since offc spec but was never diagnosed completely she is [...] 02/19/2023 11:36 AM documented in this encounter [facility] Work Phone: 10-16-2022 Note Discharge Summary PHYSICAL THERAPY Referral/Discharge Information: Date of Discharge: 10-16-22 Date of Last Visit: 09-06-21 Date of Evaluation: 09-06-21 Reason for Discharge: Failed to schedule and/or to keep follow-up appointment(s). Signatures Electronically signed by : Bisi Prabhakar PT Reynold [facility]; Oct 16 2022 10:12AM EST (Author) [employer] 07-02-2022 Evaluation note Encounter Date Diagnosis Assessment [...] no improvement of pain. Given return precautions. [employer] Other 12-05-2022 Chief complaint Narrative - Reported* [...] visit to discuss anxiety follow up [facility] Work Phone: 1(377) 143-934508-11-2022 History of Present illness Narrative* Roula Bledsoe, LAYNE.BETTING AGENCY MANAGER - 10/17/2021 12:40 PM EDT SKIN [...] Past Histories independently gathered by the clinical academic support director and the remaining scribed note accurately describes my personal service to the patient. Roula Bledsoe APRN.CNP October 17, 2021 1:05 PM I spent a total of 15 minutes on the date of the service which included preparing to see the patient, kfje-gs-ntdu patient care, completing clinical documentation, performing a medically appropriate examination, and counseling and educating the patient/family/caregiver. [facility] History of Present illness Narrative* MICHAEL [...] breast biopsy: right breast biopsy 2018 at [facility]- fibroepithelial lesion consistent with fibroadenoma * - breast surgery: no * - breast cancer:no * Menarche: 15 * AFLB: 22 * Menopause: no * HRT:no * Family history: both grandfathers with lung cancer * no history of breast or ovarian cancer [facility] Work Phone: 1(663) 273-345608-08-2022 History of Present illness Narrative* MICHAEL WELLER [...] breast biopsy: right breast biopsy 2018 at [facility]- fibroepithelial lesion consistent with fibroadenoma * - breast surgery: no * - breast cancer:no * Menarche: 15 * AFLB: 22 * Menopause: no * HRT:no * Family history: both grandfathers with lung cancer * no history of breast or ovarian cancer [facility] Work Phone: 1(394) 446-137508-02-2022 Chief complaint Narrative - Reported* An interactive [...] visit to discuss insomnia, trazodone not helping [id number] 200 Work Phone: 1(830) 870-151708-02-2022 Chief complaint Narrative - Reported* An interactive [...] visit to discuss insomnia, trazodone not helping [facility] Work Phone: 1(631) 782-379305-06-2022 [place], [place] NAME: JUDEMICHAEL DATE OF : MEDICAL REC#: [id number] PROGRAM DIRECTOR: [id number], TRANSADMIT DATE: 07/12/2021 09:46:00 INTERVENTIONIST DATE: 07/13/2021 21:00 DICTATING PHYSICIAN: MATT STAPLETON DICTATION DATE: 07/12/2021 12:00 OPERATIVE NOTE OPERATION DATE: 07/12/2021 PROCEDURE: Diagnostic laparoscopy. PREOPERATIVE DIAGNOSIS: Dyspareunia. POSTOPERATIVE DIAGNOSIS: Dyspareunia. ANESTHESIA: General. SURGEON: Matt Stapleton D.O. CAGE CLERK: CLIFF Durán URINE OUTPUT: Yellow and clear. [...] Approved by: DR MATT STAPLETON . 07/15/2021 15:07[facility]00[facility] History general Narrative - Reported* Type Description Date Medical History 03-04-12 Pathology Report [facility] Surgical History left hip surgery Surgical History tonsillectomy and adenoidectomy Surgical History cholecystectomy Surgical History wisdom teeth Surgical History tumor [employer] Other Evaluation note* Diagnosis Lentigines- Primary Other dyschromia Multiple benign nevi Benign neoplasm of skin, site unspecified Valles angioma Nevus, non-neoplastic Exposure to tanning bed, sequela Hx of malignant melanoma Personal history of malignant melanoma of skin Dermatofibroma Benign neoplasm of skin, site unspecified [facility] noteNo assessment [facility] Work Phone: Evaluation note* Diagnosis Abnormal mammogram Abnormal mammogram, unspecified documented in this encounter [facility] Work Phone: Evaluation note* Diagnosis Lump in female breast Lump or mass in breast documented in this encounter [facility] Work Phone: Evaluation note* Diagnosis Encephalopathy- Primary Unspecified encephalopathy Anxiety Anxiety state, unspecified Attention deficit hyperactivity disorder (ADHD), predominantly inattentive type documented in this encounter [facility] Work Phone: Evaluation note* Diagnosis Anxiety Anxiety state, unspecified documented in this encounter [facility] Work Phone: Evaluation note* Diagnosis Encephalopathy- Primary Unspecified encephalopathy Attention deficit hyperactivity disorder (ADHD), 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, unspecified Anxiety Anxiety state, unspecified documented in this encounter [facility] Work Phone: Evaluation note* Diagnosis Dermatofibroma- Primary Benign neoplasm of skin, site unspecified Lentigines Other dyschromia Multiple benign nevi Benign neoplasm of skin, site unspecified Valles angioma Nevus, non-neoplastic Hx of malignant melanoma Personal history of malignant melanoma of skin documented in this encounter [facility] Diagnosis Onset Date Resolution Status UTI (urinary tract infection) acute [facility] Work Phone: Evaluation note* Diagnosis Acute lower UTI- Primary Urinary tract infection, site not specified Urine frequency documented in this encounter [facility] Work Phone: Evaluation note* Diagnosis Missed menses , unspecified gestational age Encounter for supervision of normal first in first trimester [facility] Diagnosis First trimester state, incidental 11 weeks gestation of Antepartum multigravida of advanced maternal age documented in this encounter [facility]* Diagnosis 15 weeks gestation of Second trimester state, incidental Well woman exam with routine gynecological exam Routine gynecological examination Screening, , for anatomic survey Encounter for anatomic survey Exposure to STD Vaginal discharge Leukorrhea, not specified as infective Nausea Nausea alone documented in this encounter [facility] [...] area gets bumped. 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 [...] for walks, read books. No regular exercise. [id number] 200 Work Phone: History of Present illness [...] area gets bumped. * Sees OBGYN through 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 [...] for walks, read books. No regular exercise. [facility] Work Phone: History of Present [...] area gets bumped. 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 [...] for walks, read books. No regular exercise. [id number] 200 Work Phone: History of Present illness [...] discharge from lumps. 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 [...] past, but this made her sleep worse. [id number] 200 Work Phone: History of Present illness [...] discharge from lumps. 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 [...] past, but this made her sleep worse. [facility] Work Phone: History of Present illness Narrative* Patient presents to clinic with complaints of pain during sex and mild Ricardo. Her assessment was significant for mild strength deficits and decreased movement of her pelvic floor. Patient will benefit from skilled PT to address these impairments. * Clinical Presentation: Stable and/or uncomplicated characteristics. * Level of Complexity: low [facility] Work Phone: History of Present illness [...] urology for painful intercourse. Planning physical therapy. [id number] 200 Work Phone: History of Present illness [...] urology for painful intercourse. Planning physical therapy. [facility] Work Phone: History of Present [...] been able to have these done yet. [id number] 200 Work Phone: Instructions* Name Dates Details Instructions not documented [id number] Work Phone: Family History Unknown Family Member [...] Referral Specialty Diagnoses / Procedures Referred By Kezai gooden Referred To Contact Radiology Diagnoses Lump in female breast Procedures [place] [address] [facility] [address] [place] [address] Referral ID Status Reason Start Date Expiration Date Visits Requested Visits Authorized [id number] Pending Review Perform Procedure 3 06/17/2023 1 1 Additional Source Comments INFORMATION SOURCE (unrecogn ized section and content) DATE CREATED AUTHOR 07/19/2021 [facility] DATE CREATED AUTHOR AUTHOR'S ORGANIZ ATION 10/16/2021 [facility] DATE CREATED AUTHOR AUTHOR'S ORGANIZ ATION 03/02/2022 [facility] DATE CREATED AUTHOR AUTHOR'S ORGANIZ ATION 10/17/2022 [facility] DATE CREATED AUTHOR AUTHOR'S ORGANIZ ATION 12/11/2022 [facility] DATE CREATED AUTHOR AUTHOR'S ORGANIZ ATION 07/25/2023 [facility] DATE CREATED AUTHOR AUTHOR'S ORGANIZ ATION 09/03/2023 [facility] DATE CREATED AUTHOR AUTHOR'S ORGANIZ ATION 11/14/2023 [facility] DATE CREATED AUTHOR AUTHOR'S ORGANIZ ATION 01/06/2024 [facility] DATE CREATED AUTHOR AUTHOR'S ORGANIZ ATION 03/10/2024 [facility] DATE CREATED AUTHOR AUTHOR'S ORGANIZ ATION 04/17/2024 [facility] EPIC Reason for Visit (unrecogniz ed section and content) Reason Comments Full Body Skin Check Specialty Diagnoses / Procedures Referred By Contsingh t Referred To Contact Radiology Diagnoses Abnormal mammogram Procedures BI mammo bilateral diagnostic tomosynthesis [place] [address] [facility] [address] [place] [address] Referral ID Status Reason Start Date Expiration Date Visits Requested Visits Authorized [id number] Pending Review Perform Procedure 12/03/2022 06/01/2023 1 1 Specialty Diagnoses / Procedures Referred By Contac t Referred To Contact Radiology Diagnoses Lump in female breast Procedures [place] [address] [facility] [address] [place] [id number] Referral ID Status Reason Start Date Expiration Date Visits Requested Visits Authorized [id number] Pending Review Perform Procedure 3 06/17/2023 1 1 Reason Comments New Patient Visit NPV- ADHD Specialty Diagnoses / Procedures Referred By Contac t Referred To Contact Neurology Diagnoses Anxiety Procedures [place] OFFICE/OUTPATIENT NEW HIGH MDM 60-74 [place] [address] [place] [address] Jhonny Issa MD [address] [facility], [address] [place] [address] Referral ID Status Reason Start Date Expiration Date Visits Requested Visits Authorized [id number] Pending Review Specialty Services Required 12/03/2022 06/01/2023 [...] or prosecute any alcohol or drug abuse patient.[facility] HospitalIn the event this information is protected by the Federal Confidentiality of Alcohol and Drug Abuse Patient Records regulations: The Federal rules restrict any use of the information to criminally investigate or prosecute any alcohol or drug abuse patient.[facility] Care Teams (unrecognized sec tion and content) Clin Nurse Relationship Specialty Start Date End Date Danielle Infante [address] [facility] [address] [place] [address] PCP - General Family Practice 06/10/16 Team Status: Inactive Member Role Status Dates Danielle Infante , Primary Care Provider Active Kp Alvares DO [facility] Attending Provider Active Team Status: Active Member Role Status Dates Danielle Infante , Primary Care Provider Active Team Status: Inactive Member Role Status Dates Danielle Infante , Primary Care Provider Active HINA ReddyC Attending Provider Activ e Clin Nurse Relationship Specialty [place] [address] [facility] [address] [place] [address] PCP - General Family Medicine 10/29/22 Clin Nurse Relationship Specialty [place] [address] [facility] [address] [place] [address] PCP - General Family Medicine 10/29/22 Clin Nurse Relationship Specialty [place] [address] [facility] [address] [place] [address] PCP - General Family Medicine 10/29/22 Clin Nurse Relationship Specialty [place] [address] [facility] [address] [place] [address] PCP - General Family Medicine 10/29/22 Jhonny Issa MD [address] [facility], [address] [address] Consulting Physician Neurology 02/19/23 Clin Nurse Relationship Specialty [place] [address] [facility] [address] [place] [address] PCP - General Family Medicine 10/29/22 Jhonny Issa MD [address] [facility], [address] [address] Consulting Physician Neurology 02/19/23 Clin Nurse Relationship Specialty [place] [address] [facility] [address] [place] [address] PCP - General Family Medicine 10/29/22 [place] [address] [address] PCP - MMO ACO PCP 03/09/23 Jhonny Issa MD [address] [facility], [address] [address] Consulting Physician Neurology 02/19/23 Clin Nurse Relationship Specialty Start Date End Date Danielle Infante DO [address] [facility] [address] [place] [address] PCP - General Family Medicine 06/10/16 Team [...] September 05, 2023 End: September 05, 2023 Clin Nurse Relationship Specialty Start Date End Date Jhonny Issa MD [address] [facility], [address] [place] [address] Consulting Physician Neurology 02/19/23 Clin Nurse Relationship Specialty Start Date End Date Danielle Infante DO [address] [place], [facility] PCP - General Family Medicine 07/15/22 Clin Nurse Relationship Specialty Start Date End Date Danielle Infante DO [address] [place], [facility] PCP - General Family Medicine 07/15/22 Clin Nurse Relationship Specialty Start Date End Date Danielle Infante DO [address] [place] [address] PCP - General Family Medicine 07/15/22 Clin Nurse Relationship Specialty Start Date End Date Danielle Infante DO [address] [place], [facility] PCP - General Family Medicine 07/15/22 Clin Nurse Relationship Specialty Start Date End Date Danielle Infante DO [address] [place] [address] PCP - General Family Medicine 07/15/22 Clin Nurse Relationship Specialty Start Date End Date Danielle Infante DO [address] [place] [address] PCP - General Family Medicine 07/15/22 Team Status: Inactive Member Role Status Dates Matt Stapleton DO Attending Provider Active Start : March 08, 2024 End: March 08, 2024 Clin Nurse Relationship Specialty Start Date End Date Danielle Infante [address] [place] [address] PCP - General Family Medicine 07/15/22 Clin Nurse Relationship Specialty Start Date End Date Danielle Infante [address] [place] [address] PCP - General Family Medicine 07/15/22 Goals [...] BE BASED ON THE PRIMARY CLINICAL RECORDS. [employer] provides no warranty or guarantee of the accuracy or completeness of information in this document.
[2024-05-06 01:08] LABS: AFP Value 65.1 ng/mL (.); Gest. Age on Collection Date 18.4 weeks (.); Gestat. Age Based On Ultrasound (.); Insulin Dep Diabetes No (.); Maternal Age At EDD 36.9 yr (.); OSBR Risk 1 IN 1278 (.); Results Report (.)
== END 2024-05-03 16:32 | disposition home or self-care (01) ==
LOC: LAB 16:32
PROVIDERS: Visit Provider Physician Assistant
DX: Z34.92 Encounter for supervision of normal pregnancy, unspecified, second trimester (principal)
CPT/HCPCS: 36415; 82105

== ENCOUNTER 2024-06-30 09:19 | Outpatient (OUT) | payer OTHER, MEDICAID, SELFPAY ==
[2024-06-30 10:33] LABS: Basophils Percent Auto 0.2 % (0.2-2.0); Hematocrit 32.1 % (36.0-48.0); Hemoglobin 10.3 g/dL (12.0-16.0); Immature Granulocytes Abs Auto 0.06 10^3/uL (0.00-0.03); Immature Granulocytes Pct Auto 0.7 % (0.0-0.5); Lymphocytes Absolute Auto 1.5 10^3/uL (1.2-3.8); Lymphocytes Percent Auto 16.1 % (20.5-60.0); Mean Corpuscular HGB Conc 32.1 g/dL (29.9-35.2); Mean Corpuscular Hemoglobin 27.8 pg (26.7-34.0); Mean Corpuscular Volume 86.5 fL (81.0-99.0); Mean Platelet Volume 12.2 fL (9.5-13.5); Monocytes Absolute Auto 0.6 10^3/uL (0.3-0.8); Monocytes Percent Auto 6.2 % (1.7-12.0); Neutrophils Absolute Auto 7.1 10^3/uL (1.4-6.5); Neutrophils Percent Auto 76.8 % (43.0-75.0); Platelet Count 152 10^3/uL (150-450); Red Blood Count 3.71 10^6/uL (4.20-5.40); Red Cell Distribution Width 14.1 % (11.0-15.0); White Blood Count 9.2 10^3/uL (4.0-11.0)
[2024-06-30 10:55] LABS: Glucose 1 Hour 160 mg/dL (<130)
== END 2024-06-30 09:20 | disposition home or self-care (01) ==
LOC: LAB 09:20
PROVIDERS: Visit Provider Obstetrics & Gynecology
DX: Z13.1 Encounter for screening for diabetes mellitus (principal)
CPT/HCPCS: 36415; 82950; 85025

== ENCOUNTER 2024-08-05 15:57 | Outpatient (OUT) | payer OTHER, SELFPAY ==
[2024-08-05 16:05] VITALS: BP 141/84; PULSE 120
--- NOTE | 2024-08-05 16:42 | US_ITS ---
[facility] [place] [id number] Patient Name: MICHAEL ROQUE MRN: [id number] date: 1985 Sex: F Assigned Patient Location: US Current Patient Location: Accession/Order Number: [id number] Exam Date: 08/06/2024 12:11 Report Date: 08/06/2024 12:12 At the request of: NEISHA PETERSON DO Procedure: US OB BPP w non-stress Ultrasound biophysical profile HISTORY: Gestational diabetes There is adequate breathing movement, gross body movement, tone and amniotic fluid volume for total score of 8 out of 8. The amniotic fluid index is 14.6 cm within normal limits. The heart rate 144 bpm. US/US OB BPP w non-stress IMPRESSION: Adequate ultrasound biophysical profile Impression dictated by: Roddy Villegas M.D. 08/06/2024 12:12 PM Dictation Location: [employer] Electronically authenticated by: [id number] Date: 08/06/2024 12:12
== END 2024-08-05 17:08 | disposition home or self-care (01) ==
LOC: US 15:57 → FBC 15:59
PROVIDERS: Visit Provider Obstetrics & Gynecology
DX: O24.419 Gestational diabetes mellitus in pregnancy, unspecified control (principal); Z3A.31 31 weeks gestation of pregnancy
CPT/HCPCS: 76818

== ENCOUNTER 2024-08-09 14:13 | Outpatient (OUT) | payer OTHER, SELFPAY ==
--- OUTSIDE RECORDS SUMMARY | 2024-08-02 09:10 | XMS_ITS | Encounter Summary ---
Author Organization [facility] Address [address] [place] [address] Care Team Providers Care Analog Ic Design Architect Name Role Phone Juaquin Rae DO Primary Care Provider +1- [phone] Reason for Visit * Reason Comments Routine Visit Encounter Details Date Type Department Care Team (Late Contact Info) Description 08/02/2024 9:10 AM EDT Routine [facility] [address] [facility] [phone] Matt Stapleton DO [address] [facility] [address] [place], [facility] 31 weeks gestation of ; Third trimester [...] this encounter Progress Notes * Bisi Nixon, MANUFACTURER'S SERVICE REPRESENTATIVE - 08/02/2024 9:10 AM EDT Reason for [...] nursing note reviewed. Exam conducted with a chief of anesthesiology present. Vitals: Estimated body mass index is [...] Care Team (Late st Contact Info) Description 08/09/2024 3:00 PM EDT Ancillary Procedure [facility] [address] [facility] [place] [address] 08/17/2024 11:00 AM EDT Routine [facility] B[facility] [place] [address] [place] [address] Matt Stapleton, [address] [place] [address] 10/26/2024 4:00 PM EDT Office Visit [facility] [address] [facility] [place] [address] Matt Stapleton, [address] [place], [place] [address] [address] Scheduled Orders Name Type Priority Associated Diagnoses [...] documented as of this encounter Care Teams Analog Ic Design Architect Relationship Specialty Start Date End Date Juaquin Rae DO [address] [facility] [address] [place] [id number] PCP - General Family Medicine 07/15/22 documented as of this encounter
--- OUTSIDE RECORDS SUMMARY | 2024-08-09 10:30 | XMS_ITS | Encounter Summary ---
Author Organization [facility] tem Address [id number] [address] [place] [address] Care Team Providers Care Die Turner Name Role Phone Unavailable Primary Care Provider Unavailabl e Reason for Visit * Reason Comments Gestational Diabetes * Consultation (Routine) - Pending Review Specialty Diagnoses / Procedures Referred By Contac t Referred To Contact Maternal and Medicine Diagnoses Gestational diabetes mellitus (GDM) in third trimester, gestational diabetes method of control unspecified Matt Stapleton R, DO [address] [place] [address] [place] [address] Phone: tel: fax: Maternal- Medicine at [facility] [address] [place] [address] Phone: tel: fax: Referral ID Status Reason Start Date Expiration Date Visits Requested Visits Authorized [id number] Pending Review Specialty Services Required 08/03/2024 08/03/2025 1 1 Encounter Details Date Type Department Care Team (Late st Contact Info) Description 08/09/2024 10:30 AM EDT Support Visit Maternal- Medicine at [facility] [address] [place] [phone] Noelle Johnston RN [address] [address] Ignacia Carvalho LD [address] [place] [address] Gestational diabetes mellitus (GDM) in third trimester, gestational diabetes method of control unspecified Social History Tobacco Use Types Packs/Day Years Used Date Smoking Tobacco: Never Assessed Hunger Screening Answer Date Recorded Within the past 12 months we worried whether our food would run out before we got money to buy more. Never True 08/09/2024 Within the past 12 months th e food we bought just didn't last and we didn't have money to get more. Never True 08/09/2024 Estimated Date of Delivery Comme nts Yes 10/01/2024 Based on Ultraso und Sex and Gender Information Value Date Recorded Sex Assigned at Not on file Legal Sex Female 12:47 PM EDT Gender Identity Not on file Sexual Orientation Not on file documented as of this encounter Last Filed Vital Signs Vital Sign Reading Time Taken Comments Blood Pressure - - Pulse - - Temperature - - Respiratory Rate - - Oxygen Saturation - - Inhaled Oxygen Concentration - - Weight 104.2 kg (229 lb 12.8 oz) 2024 12:09 PM EDT Height - - Body Mass Index - - documented in this encounter Progress Notes * Noelle Johnston RN - 08/09/2024 10:30 AM EDT DIABETES AND ASSESSMENT Type of diabetes: GDM Age at onset: 38 Duration: during this Still : OB History Para Term AB Living 6 3 0 0 2 0 SAB IAB Ectopic Multiple Live Births 2 0 0 0 0 Patient's last menstrual period was 12/18/2023. 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 Matt Stapleton Name: No primary care provider on file. Name: City: City: City: Last time seen: 08/02/24 Last time seen: Last time seen: Eye Doctor Dentist Other Doctors Name: Name: Name: City: City: City: Last time seen: Last time seen: Last time seen: OB History Para Term AB Living 6 3 2 SAB IAB Ectopic Multiple Live Births 2 # Outcome Date GA Lbr Abdiaziz/2nd Weight Sex Type Anes PTL Lv 6 Current 5 SAB 4 SAB 3 Para 2 Para 1 Para Allergies Allergen Reactions Cat Dander Latex Loracarbef Nsaids (Non-Steroidal Anti-Inflammatory Drug) Current Outpatient Medications Medication Sig Dispense Refill polysaccharide iron complex 180 mg iron capsule Take 1 tablet by mouth in the morning. promethazine (PHENERGAN) 12.5 mg tablet Take 1 tablet (12.5 mg total) by mouth every 6 (six) hours as needed for nausea or vomiting. insulin NPH (HumuLIN N,NovoLIN N) 100 unit/mL injection Inject under the skin in the morning and inthe evening. Inject with meals. (Patient not taking: Reported on 08/09/2024) metoclopramide (REGLAN) 10 mg tablet Take 1 tablet (10 mg total) by mouth in the morning and 1 tablet (10 mg total) at noon and 1 tablet (10 mg total) in the evening and 1 tablet (10 mg total) beforebedtime. (Patient not taking: Reported on 08/09/2024) ondansetron ODT (ZOFRAN ODT) 4 mg disintegrating tablet Dissolve 1 tablet (4 mg total) on tongue every 8 (eight) hours as needed for nausea or vomiting. (Patient not taking: Reported on 08/09/2024) No current facility-administered medications for this visit. Previous Hospitalizations Childbirth X 3 Past Surgical History: Procedure Laterality Date CHOLECYSTECTOMY 2009 CYST REMOVAL 2012 BACK TONSILLECTOMY 1993 Personal diabetes history: Gestational Diabetes Unanswered Diabetes mellitus Unanswered Family History of diabetes: pertinent family history is not on file. ROS: Constitutional: No problems Head and Neck: Wears glasses or contact lens and Other: Spots in vision when standing/ dizziness Lungs and breathing: No problems Heart:: High cholesterol Blood disorders and other conditions: Anemia and Cancer Mental health: Depression/anxiety Kidney, Bladder, and Sexual History: Genital herpes, Fertility issues, and Other: UTIs Circulation and Nerves: Swelling and Other: stiff joints Endocrine and Diabetes Conditions: Other: Endrometriosis Stomach and Intestines: Nausea/vomiting, Abdominal pain, and Gall bladder disease Educational Level: Preferred Methods for Learning: Listening/Verbal directions, Reading, Watching someome do it first, and Hands on demonstration Is there anything about your culture, adventist, or personal beliefs we need to know about to care for you: Other None Primary Language spoken: East Timorese [22] Primary Language for learning: East Timorese Are you currently in a relationship where you are physically hurt, threatened or made to fee afraid? [] Yes [] No Public Speaking Teacher needed? [] Yes [] No Marital status/Living arrangements [] [] Single [x] Partner [] Father of baby [] Friend [] Parent(s) [x] Other family member [] Self Social History Social History Socioeconomic History Marital status: Legally Spouse name: Not on file Number of children: Not on file Years of education: Not on file Highest education level: Not on file Occupational History Not on file Tobacco Use Smoking status: Not on file Smokeless tobacco: Not on file Substance and Sexual Activity Alcohol use: Not on file Drug use: Not on file Sexual activity: Not on file Other Topics Concern Not on file Social History Narrative Not on file Social Drivers of Health Financial Resource Strain: Not on file Food Insecurity: No Food Insecurity (08/09/2024) Hunger Screening Food Insecurity - Worry: Never True Food Insecurity - Inability: Never True Transportation Needs: Not on file Physical Activity: Not on file Stress: Not on file Social Connections: Not on file Interpersonal Safety: Not on file Housing Instability: Not on file Eating Schedule - What time do you: See Schedule Work day Day off Other (including weekends) Start your day Eat breakfast Eat lunch Eat dinner Eat snacks Go to bed Exercise Everyday Stress Level Stress Scale [x] 1 Low [] 2 [] 3 [] 4 [] 5 High Stress related to: work Support systems: Good Comfort Level Are you currently experiencing any pain? [x] Yes []No If yes, where: Lower abdominal On thge following scale, modoc the number, which describes your current level of pain. [] 0 [x] 1 [] 2 [] 3 [] 4 [] 5 [] 6 [] 7 [] 8 [] 9 [] 10 No Pain Worst Pain Possible How long does the pain last?: What do you do to help the pain go away? Baby not moving PLEASE COMPLETE THE FOLLOWING QUESTIONS - IF YOU HAVE DIABETES NOW OR HAVE HAD WITH A PREVIOUS HAVE YOU HAD ANY OF THE FOLLOWING SYMPTOMS OF LOW BLOOD SUGARS - Denies Shaky [] Yes [] No Irritability [] Yes [] No Heart Palpitations [] Yes [] No Nervousness [] Yes [] No Cold sweats [] Yes [] No Headache [] Yes [] No Passed out [] Yes [] No Dizzy [] Yes [] No Confusion [] Yes [] No Seizures [] Yes [] No What do you use to treat your low blood sugars? Diabetes Testing and Medication Use Yes No Do you currently use a glucose testing meter? If yes, how often do you test? Three or four times or more daily [x] [] Did you take insulin during any of these previous pregnancies? [] [x] Have your insulin reactions (low blood sugars) changed in any way recently? N/A If yes, please describe how they have changed. [] [] Do you have a Glucagon kit and are you familiar with its use? [] [] Have you been told told that you have any complications from diabetes? If yes, please describe: [] [] Do you check your feet? If yes, how often? [] [] Do you have foot problems? If yes, what kind? [] [] Have you ever received any diabetic education? If yes, where and when: [] [x] . * IVONNE Villalobos - 08/09/2024 10:30 AM EDT Nutritional Assessment Form Date: 08/09/2024 AMALIA: Estimated Date of Delivery: 10/01/24 EGA: 32w3d History reviewed. No pertinent past medical history. OB History 6 Para 3 Term AB 2 Living SAB 2 IAB Ectopic Multiple Live Births Current Outpatient Medications Medication Sig Dispense Refill polysaccharide iron complex 180 mg iron capsule Take 1 tablet by mouth in the morning. promethazine (PHENERGAN) 12.5 mg tablet Take 1 tablet (12.5 mg total) by mouth every 6 (six) hours as needed for nausea or vomiting. insulin NPH (HumuLIN N,NovoLIN N) 100 unit/mL injection Inject under the skin in the morning and inthe evening. Inject with meals. (Patient not taking: Reported on 08/09/2024) metoclopramide (REGLAN) 10 mg tablet Take 1 tablet (10 mg total) by mouth in the morning and 1 tablet (10 mg total) at noon and 1 tablet (10 mg total) in the evening and 1 tablet (10 mg total) beforebedtime. (Patient not taking: Reported on 08/09/2024) ondansetron ODT (ZOFRAN ODT) 4 mg disintegrating tablet Dissolve 1 tablet (4 mg total) on tongue every 8 (eight) hours as needed for nausea or vomiting. (Patient not taking: Reported on 08/09/2024) No current facility-administered medications for this visit. Present MNT Therapy: Regular Insulin Therapy: Date started: Anthropometric Data: Height: Ht Readings from Last 1 Encounters: No data found for Ht Pre- Wt: Pregravid weight not on file Pre- BMI: Could not be calculated Current BMI: There is no height or weight on file to calculate BMI. Pre Wt. Category: Overweight Current Weight: Wt Readings from Last 1 Encounters: 08/09/24 104.2 kg (229 lb 12.8 oz) Weight Gain Goals: 15-25 pounds Lab Data: BP BP Readings from Last 1 Encounters: No data found for BP Hgb Hct OGCT OGTT HgA1C SMBG: Frequency : Testing Times: Glucose meter: Records Kept? [] Yes [] No Lifestyle Factors: Occupation of the mother: Substance Abuse: Living Conditions Hours worked per week 40 hours weekly Educational Level Masters Family issues stable Cultural/ethnic/methodist influences denies Exercise approved by MD? Yes Current Exercise program walking Who prepares the meal Spouse Who purchase food at your home? Both Equipment use for cooking/food storage Has everything Food Assistance(Ex.WIC, Food [place]) Declined Dining out Yes Lunch everyday during the school year, once a week Appetite/Appetite changes Eats because she has to Weight History Lost quite a bit of weight prior to but has gained weight now Do you have cats at home? Infant Feeding Plans Formula Feeding If you have cats, who cleans the litter box? Cravings/Aversions/Pica Craves IC, Aversions- eats because she has to Nutrition Assessment Worksheet: Week/Weekend Food Recall Breakfast Eggs, antunez, sausage, potatoes, water Snack Not snacking Lunch Chicken landers salad or 3 taco's water or a small pop Snack fruit Dinner Grilled chicken, salad, and baked fries, water Snack No snack Snack Time 7:30 AM Noon 4 PM 6-7 PM Jonna Weller presents for diet instruction per doctor order secondary to diagnosis of gestational diabetes insulin requiring. Food recall suggests patient typically consumes a lower carbohydratediet and is not eating a lot of vegetables. Pt has gained 69.8 pounds to date reporting her pre weight as 160 pounds. Jonna said that she had lost a lot of weight by eating healthier and exercising prior to getting . Based on patient's stated pre- weight, weight gain goalis 15-25 pounds. Nutrition diagnosis: inconsistent carbohydrate intake related to lack of nutritionknowledge as evidenced by patient's food recall. Instructed patient on a 1900 kcal meal plan of 3 meals and 3 snacks, carbohydrate counting, label reading, dining out, and portion control. Encouragedpatient to measure food for 2 days and record two day's worth of food records. Pt expressed understanding with counting carbohydrates and agreed to send RD a 2 day food log. Please refer to [facility] its for other goals. Reviewed the Diabetes Self Management Support Plan, discussed using apps/websites to help manage her diabetes. Patient understands that we will follow up weekly with a phone callto review progress. Breakfast 7-9 AM 15-25 grams of CHO, Snack 10 AM 15-30 grams of CHO, Lunch Noon 45 grams of CHO, Snack 4 PM 15-30 grams of CHO, Dinner 6-7 PM 45 grams of CHO, HS Snack 8 PM 15-30 grams of CHO. Face to face time 50 minutes. documented in this encounter Plan of Treatment Upcoming Encounters Date Type Department Care Team (Late st Contact Info) Description 08/15/2024 1:30 PM EDT Telemedicine Maternal- Medicine at [facility] [address] [place] [address] Lucretia Art PA-C [address] [address] documented as of this encounter Visit Diagnoses Diagnosis Gestational diabetes mellitus (GDM) in third trimester, gestational diabetes method of control unspecified documented in this encounter
[2024-08-09 14:18] VITALS: BP 131/78; PULSE 114
--- OUTSIDE RECORDS SUMMARY | 2024-08-09 14:18 | XMS_ITS | Encounter Summary ---
Author Organization [facility] tem Address [id number] [address] [place] [address] Care Team Providers Care Graphic Technician Name Role Phone Unavailable Primary Care Provider Unavailabl e Encounter Details Date Type Department Care Team (Late Contact Info) Description 08/03/2024 Orders Only Maternal- Medicine at [facility] [address] [place] [phone] Ref Prov, [place] [address] Social History Tobacco Use Types Packs/Day Years Used Date Smoking Tobacco: Never Assessed Estimated Date of Delivery Comme nts Yes 10/01/2024 Based on Ultraso und Sex and Gender Information Value Date Recorded Sex Assigned at Not on file Legal Sex Female 12:47 PM EDT Gender Identity Not on file Sexual Orientation Not on file documented as of this encounter Plan of Treatment Upcoming Encounters Date Type Department Care Team (Late Contact Info) Description 08/15/2024 1:30 PM EDT Telemedicine Maternal- Medicine at [facility] [address] [place] [phone] Lucretia Art PA-C [address] [phone] documented as of this encounter Procedures Procedure Name Priority Date/Time Associated Diagnosis Comments ULTRASOUND OFFICE Routine 08/03/2024 4:04 PM EDT ULTRASOUND OFFICE Routine 08/03/2024 4:02 PM EDT UNLISTED GENETIC TEST Routine 08/03/2024 4:00 PM EDT documented in this encounter Results * Ultrasound - Office (08/03/2024 4:04 PM EDT) Anatomical Region Laterality Modality AMB Ultrasound us Not In System Ref Prov IMG US ORDERABLES Final R esult * Ultrasound - Office (08/03/2024 4:02 PM EDT) Anatomical Region Laterality Modality AMB Ultrasound us Not In System Ref Prov IMG US ORDERABLES Final R esult * Unlisted Genetic Test (08/03/2024 4:00 PM EDT) us Not In System Ref Prov LAB BLOOD ORDERABLES Melanie herrera Result MANUALLY TRANSCRIBED RESULTS documented in this encounter Visit Diagnoses Not on filedocumented in this encounter
--- OUTSIDE RECORDS SUMMARY | 2024-08-09 14:18 | XMS_ITS | Clinical Summary ---
Author Organization [facility] tem Address [id number] [address] [place] [address] Care Team Providers Care Mechanics Handyman Name Role Phone Unavailable Primary Care Provider Unavailabl e Allergies Active Allergy Reactions Criticality Noted Date Comments Cat Dander 08/03/2024 Latex 08/03/2024 Loracarbef 08/03/2024 Nsaids (Non-Steroidal Anti-I nflammatory Drug) 08/03/2024 Medications promethazine (PHENERGAN) 12.5 mg tablet Take 1 tablet (12.5 mg total) by mouth every 6 (six) hours as needed for nausea or vomiting. Active insulin NPH (HumuLIN N,NovoLIN N) 100 unit/mL injection Inject under the skin in the morning and in the evening. Inject with meals. Active polysaccharide iron complex 180 mg iron capsule Take 1 tablet by mouth in the morning. Active metoclopramide (REGLAN) 10 mg tablet Take 1 tablet (10 mg total) by mouth in the morning and 1 tablet (10 mg total) at noon and 1 tablet (10 mg total) in the evening and 1 tablet (10 mg total) before bedtime. Active ondansetron ODT (ZOFRAN ODT) 4 mg disintegrating tablet Dissolve 1 tablet (4 mg total) on tongue every 8 (eight) hours as needed for nausea or vomiting. Active insulin NPH and regular human (HumuLIN 70-30,NovoLIN 70-30) 100 unit/mL (70-30) injection Inject under the skin in the morning and in the evening. Inject before meals. 025 Discontin ued(Error ) Encounters Date Type Department Care Team Description 08/09/2024 10:30 AM EDT Support Visit Maternal- Medicine at [facility] [address] [place] [address] Noelle Johnston, RN Ignacia Carvalho, IVONNE Gestational diabetes mellitus (GDM) in third trimester, gestational diabetes method of control unspecified 08/09/2024 Travel 08/04/2024 Orders Only Maternal- Medicine at [place] [address] [place] [address] Ref Prov, Not In System 08/03/2024 Orders Only Maternal- Medicine at [place] [address] [place] [address] Ref Prov, Not In System 08/03/2024 Abstract Maternal- Medicine at [address] [address] External, Scanning Provider from Last 3 Months Family History Medical History Relation Name Comments Diabetes Maternal Grandfather Diabetes Maternal Grandmother Gestational diabetes Sister Relation Name Status Comments Maternal Grandfather Maternal Grandmother Sister Social History Tobacco Use Types Packs/Day Years [...] on file Sexual Orientation Not on file Last Filed Vital Signs Vital Sign Reading Time Taken Comments Blood Pressure - - Pulse - - Temperature - - Respiratory Rate - - Oxygen Saturation - - Inhaled Oxygen Concentration - - Weight 104.2 kg (229 lb 12.8 oz) 2024 12:09 PM EDT Height - - Body Mass Index - - Plan of Treatment Upcoming Encounters Date Type Department Care Team (Late st Contact Info) Description 08/15/2024 1:30 PM EDT Telemedicine Maternal- Medicine at [facility] [address] [place] [phone] Lucretia Art PA-C [address] [place] [address] Health Maintenance Due Date Last Done Comments Depression Screening 1999 Tobacco Screening 1999 Adult BMI Screening 10/26/2005 DTaP,Tdap and Td Vaccines (1 - Tdap) 10/26/2006 COVID-19 Vaccine ( season) 2023, 10/04/2020 Influenza Vaccine 11/07/2024 Pap Smear 10/19/2026 10/20/2023 Medical Devices Not on file Procedures Procedure Name Priority Date/Time Associated Diagnosis Comments ULTRASOUND OFFICE Routine 08/04/2024 9:1 6 AM EDT ULTRASOUND OFFICE Routine 08/03/2024 4:0 4 PM EDT ULTRASOUND OFFICE Routine 08/03/2024 4:0 2 PM EDT UNLISTED GENETIC TEST Routine 08/03/2024 4:00 PM EDT PLATELET COUNT Routine 06/30/2024 from Last 3 Months Results * Ultrasound - Office (08/04/2024 9:16 AM EDT) Only the most recent of3 resultswithin the time period is included. Anatomical Region Laterality Modality AMB Ultrasound us Not In System Ref Prov IMG US ORDERABLES Final R esult * Unlisted Genetic Test (08/03/2024 4:00 PM EDT) us Not In System Ref Prov LAB BLOOD ORDERABLES Melanie l Result MANUALLY TRANSCRIBED RESULTS * Platelet count (06/30/2024) Platelets 152 MANUALLY TRANSCRIBED RESULTS Blood Venous blood / Unknown us Not In System Ref Prov LAB BLOOD ORDERABLES Melanie l Result MANUALLY TRANSCRIBED RESULTS from Last 3 Months Insurance [employer]
--- OUTSIDE RECORDS SUMMARY | 2024-08-09 14:18 | XMS_ITS | Encounter Summary ---
Author Organization [facility] tem Address [id number] [address] [place] [address] Care Team Providers Care Storage Brine Worker Name Role Phone Unavailable Primary Care Provider Unavailabl e Encounter Details Date Type Department Care Team (Late Contact Info) Description 08/04/2024 Orders Only Maternal- Medicine at [facility] [address] [place] [phone] Ref Prov, [place] [address] Social History Tobacco Use Types Packs/Day Years [...] 1:30 PM EDT Telemedicine Maternal- Medicine at [facility] [address] [place] [phone] Lucretia Art PA-C [address] [phone] documented as of this encounter Procedures Procedure Name Priority Date/Time Associated Diagnosis Comments ULTRASOUND OFFICE Routine 08/04/2024 9:16 AM EDT documented in this encounter Results * Ultrasound - Office (08/04/2024 9:16 AM EDT) Anatomical Region Laterality Modality AMB Ultrasound us Not In System Ref Prov IMG US ORDERABLES Final R esult documented in this encounter Visit Diagnoses Not on filedocumented in this encounter
--- OUTSIDE RECORDS SUMMARY | 2024-08-09 14:18 | XMS_ITS | Encounter Summary ---
[facility] tem Address [id number] [address] [place] [address] Care Team Providers Care Upper Doubler Name Role Phone Unavailable Primary Care Provider Unavailabl e Encounter Details Date Type Department Care Team (Late st Contact Info) Description 08/03/2024 Abstract Maternal- Medicine at [facility] [address] [place] [phone] External, Scanning Provider Social History Tobacco Use Types Packs/Day Years [...] 1:30 PM EDT Telemedicine Maternal- Medicine at [facility] [address] [place] [phone] Lucretia Art PA-C [address] [phone] documented as of this encounter Procedures Procedure Name Priority Date/Time Associated Diagnosis Comments PLATELET COUNT Routine 06/30/2024 HIV 1&2 AB/AG SCREEN (P24 AG) Routine 03/08/2024 RUBELLA IGG IMMUNE STATUS Routine 03/08/2024 SYPHILIS TOTAL(UNKNOWN SYPHILIS STATUS) Routine 03/08/2024 HEPATITIS C(HCV) ANTIBODY W/REFLEX TO PCR Routine 03/08/2024 DRUG SCREEN, URINE Routine 03/08/2024 HEPATITIS B SURFACE ANTIGEN Routine 03/08/2024 CBC (NO DIFF) Routine 03/08/2024 CBC (NO DIFF) Routine 03/08/2024 TYPE AND SCREEN Routine 03/08/2024 documented in this encounter Results * Platelet count (06/30/2024) Platelets 152 MANUALLY TRANSCRIBED RESULTS Blood Venous blood / Unknown us Not In System Ref Prov LAB BLOOD ORDERABLES Melanie l Result Performing Organization Address City/[facility]/ZIP Co de Phone Number MANUALLY TRANSCRIBED RESULTS * Hepatitis B surface antigen (03/08/2024) Hepatitis B Surface Antigen NEGATIVE MANUALLY TRANSCRIBED RESULTS Blood Venous blood / Unknown us Not In System Ref Prov LAB BLOOD ORDERABLES Melanie l Result MANUALLY TRANSCRIBED RESULTS * Hepatitis C(HCV) Ab w/ Reflex to PCR (03/08/2024) Hepatitis C Antibody NEGATIVE MANUALLY TRANSCRIBED RESULTS Blood Venous blood / Unknown us Not In System Ref Prov LAB BLOOD ORDERABLES Melanie l Result MANUALLY TRANSCRIBED RESULTS * Drug Screen, Urine (03/08/2024) Methadone NEGATIVE MANUALLY TRANSCRIBED RESULTS Opiates NEGATIVE MANUALLY TRANSCRIBED RESULTS Amphetamine/Methamp hetamine NEGATIVE MANUALLY TRANSCRIBED RESULTS Cocaine Metabolite NEGATIVE M ANUALLY TRANSCRIBED RESULTS Phencyclidine NEGATIVE MANUAL LY TRANSCRIBED RESULTS Thc Marijuana, Urine NEGATIVE MANUALLY TRANSCRIBED RESULTS Oxycodone NEGATIVE MANUALLY TRANSCRIBED RESULTS Barbiturates NEGATIVE MANUALL Y TRANSCRIBED RESULTS Benzodiazepines NEGATIVE MANU ALLY TRANSCRIBED RESULTS Urine us Not In System Ref Prov URINE ORDERABLES Final Re sult Performing Organization Address [facility] de Phone Number MANUALLY TRANSCRIBED RESULTS * CBC without diff (03/08/2024) Rbc Mcv (Fl) By Automated Count 85.1 MANUALLY TRANSCRIBED RESULTS Platelets 200 MANUALLY TRANSCRIBED RESULTS Blood Venous blood / Unknown us Not In System Ref Prov LAB BLOOD ORDERABLES Melanie l Result Performing Organization Address [facility] de Phone Number MANUALLY TRANSCRIBED RESULTS * HIV 1&2 AB/AG Screen (P24 AG) (03/08/2024) HIV 1&2 AB/AG NON REACTIVE MAN UALLY TRANSCRIBED RESULTS Blood Venous blood / Unknown us Not In System Ref Prov LAB BLOOD ORDERABLES Melanie l Result Performing Organization Address [facility] de Phone Number MANUALLY TRANSCRIBED RESULTS * Type and screen (03/08/2024) Abo/Rh(D) O Positive MANUALLY TRANSCRIBED RESULTS Blood Venous blood / Unknown us Not In System Ref Prov BLOOD BANK TEST ORDERABLE S Final Result Performing Organization Address [facility] de Phone Number MANUALLY TRANSCRIBED RESULTS * Rubella IGG immune status (03/08/2024) Rubella immune IgG IMMUNE MANUALLY TRANSCRIBED RESULTS Blood Venous blood / Unknown us Not In System Ref Prov LAB BLOOD ORDERABLES Melanie l Result MANUALLY TRANSCRIBED RESULTS * Syphilis Total (Unknown Syphilis Status) (03/08/2024) Syphilis NONREACTIVE MANUALLY TRANSCRIBED RESULTS Blood Venous blood / Unknown us Not In System Ref Prov LAB BLOOD ORDERABLES Melanie l Result Performing Organization Address [facility] Co de Phone Number MANUALLY TRANSCRIBED RESULTS * CBC without diff (03/08/2024) Hemoglobin 12.6 MANUALLY TRANSCRIBED RESULTS Hematocrit 38.7 MANUALLY TRANSCRIBED RESULTS Blood Venous blood / Unknown us Not In System Ref Prov LAB BLOOD ORDERABLES Melanie l Result Performing Organization Address [facility] Co de Phone Number MANUALLY TRANSCRIBED RESULTS documented in this encounter Visit Diagnoses Not on filedocumented in this encounter
--- OUTSIDE RECORDS SUMMARY | 2024-08-09 14:18 | XMS_ITS | Encounter Summary ---
Author Organization [facility] Address [address] [place] [place] [address] Care Team Providers Care Education Intern Name Role Phone Juaquin Rae Primary Care Provider [phone] Encounter Details Date Type Department Care Team (Late st Contact Info) Description 11/21/2023 Clinisync Result Encounter [facility] External Department Unsolicited Neisha Stapleton, DO [address] [place] [address] Dr [address]ett [place], [place] [phone] Social History Tobacco Use Types Packs/Day Years Used Date Smoking Tobacco: Never Assessed Comments No Sex and Gender Information Value Date Recorded Sex Assigned at Not on file Legal Sex Female 6:59 PM EDT Gender Identity Not on file Sexual Orientation Not on file documented as of this encounter Plan of Treatment Upcoming Encounters Date Type Department Care Team (Late st Contact Info) Description 08/09/2024 3:00 PM EDT Ancillary Procedure [facility] [address] [place] [phone] 08/17/2024 11:00 AM EDT Routine [facility] [address] [place] [phone] Neisha Stapleton DO [address] [place], [place] [address] [address] 10/26/2024 4:00 PM EDT Office Visit [facility] [address] [facility] [place] [address] Neisha Stapleton DO [address] [facility] [place] [address] documented as of this encounter Procedures Procedure Name Priority Date/Time Associated Diagnosis Comments US PELVIS W/ TRANSVAGINAL 11/21/2023 9:17 AM EDT documented in this encounter Results * US PELVIS W/ TRANSVAGINAL (11/21/2023 9:17 AM EDT) Anatomical Region Laterality Modality Other 11/21/2023 9:17 AM EDT Narrative 11/21/2023 9:20 AM EDT [address] [address] Ultrasound Report Signed Patient: MICHAEL WELLER MR#: [id number] : 1985 Acct:[id number] Age/Sex: 38 / F ADM Date: 11/21/23 Loc: US Attending Dr: Neisha Stapleton D.O. Ordering Physician: Neisha Stapleton D.O. Date of Service: 11/21/23 Procedure(s): US pelvis w/ transvaginal Accession Number(s): [id number] cc: Neisha Stapleton D.O.; Physician,Non-Staff M.D. The [address] [address] Patient Name: MICHAEL WELLER MRN: [id number] date: 1985 Sex: F Assigned Patient Location: US Current Patient Location: US Accession/Order Number: [id number] Exam Date: 11/21/2023 08:14 Report Date: 11/21/2023 09:17 At the request of: NEISHA STAPLETON Procedure: US pelvis w/ transvaginal EXAMINATION: US pelvis w/ transvaginal HISTORY: Irregular menses N92.6 COMPARISON: No relevant comparison available. TECHNIQUE: Transabdominal and/or transvaginal sonographic examination was performed as indicated by examination type. FINDINGS: UTERUS: Normal size and appearance. Uterus size: 9.5 x 4.5 x 5.1 cm ENDOMETRIUM: Normal homogeneous appearance. Endometrial thickness: 8 mm RIGHT OVARY: Normal size and appearance. Duplex Doppler demonstrates normal waveform and flow; resistive index 0.6. Ovary size: 2.7 x 3.0 x 2.4 cm LEFT OVARY: Normal size and appearance. Duplex Doppler demonstrates normal waveform and flow; resistive index 0.5. Ovary size: 3.0 x 1.9 x 2.5 cm CUL-DE-SAC: Unremarkable. No significant free fluid. BLADDER: Unremarkable. OTHER: None. US/US pelvis w/ transvaginal IMPRESSION: 1. No abnormal or suspicious findings to account for patient's symptoms. Electronically authenticated by: CASH WOLFF Date: 11/21/2023 09:17 Dictated By: Cash Wolff M.D. Signed By: 11/21/23919 DD/ 6 TD/TT: Irish Moss Operator: Procedure Note Radiology, Radiologist, MD - 11/21/2023 [place] [address] Ultrasound Report Signed Patient: MICHAEL WELLER RMR#: [id number] : 1985Acct:[id number] Age/Sex: 38 / FADM Date: 11/21/23 Loc: US Attending Dr: Neisha Stapleton D.O. Ordering Physician: Neisha Stapleton D.O. Date of Service: 11/21/23 Procedure(s): US pelvis w/ transvaginal Accession Number(s): [id number] cc: Neisha Stapleton D.O.; Physician,Non-Staff [place] The [place] [id number] Patient Name: MICHAEL WELLER MRN: [id number] date: 1985 Sex: F Assigned Patient Location: US Current Patient Location: US Accession/Order Number: [id number] Exam Date: 11/21/2023 08:14 Report Date: 11/21/2023 09:17 At the request of: NEISHA STAPLETON Procedure: US pelvis w/ transvaginal EXAMINATION: US pelvis w/ transvaginal HISTORY: Irregular menses N92.6 COMPARISON: No relevant comparison available. TECHNIQUE: Transabdominal and/or transvaginal sonographic examination was performed as indicated by examination type. FINDINGS: UTERUS: Normal size and appearance. Uterus size: 9.5 x 4.5 x 5.1 cm ENDOMETRIUM: Normal homogeneous appearance. Endometrial thickness: 8 mm RIGHT OVARY: Normal size and appearance. Duplex Doppler demonstratesnormal waveform and flow; resistive index 0.6. Ovary size: 2.7 x 3.0 x 2.4 cm LEFT OVARY: Normal size and appearance. Duplex Doppler demonstrates normal waveform and flow; resistive index 0.5. Ovary size: 3.0 x 1.9 x 2.5 cm CUL-DE-SAC: Unremarkable. No significant free fluid. BLADDER: Unremarkable. OTHER: None. US/US pelvis w/ transvaginal IMPRESSION: 1. No abnormal or suspicious findings to account for patient's symptoms. Electronically authenticated by: CASH WOLFF Date: 11/21/2023 09:17 Dictated By: Cash Wolff M.D. Signed By:11/21/23919 DD/ 6 TD/TT: Irish Moss Operator: us Neisha Stapleton DO [facility] Final Result documented in this encounter Visit Diagnoses Not on filedocumented in this encounter Care Teams Education Intern Relationship Specialty Start Date End Date Juaquin Rae DO [address] [facility] [address] [place] [address] PCP - General Family Medicine 07/15/22 documented as of this encounter
--- OUTSIDE RECORDS SUMMARY | 2024-08-09 14:18 | XMS_ITS | Encounter Summary ---
Author Organization [facility] Address [address] [place] [address] Care Team Providers Care Manager Meeting Name Role Phone Juaquin Rae DO Primary Care Provid er Source Comments In the event this information is protected by the Federal Confidentiality of Alcohol and Drug AbusePatient Records regulations: The Federal rules restrict any use of the information to criminally investigate or prosecute any alcohol or drug abuse patient.[facility] Encounter Details Date Type Department Care Team (Late st Contact Info) Description 10/01/2017 Patient Msg Internal Medicine [facility] [place] [address] Renee Sawyer MD [address] [place] [address] RE: Appointment Cancellation Request Social History Tobacco Use Types Packs/Day Years Used Date Smoking Tobacco: Never Alcohol Use Standard Drinks/Week Comments Yes 0 (1 standard drink = 0.6 oz pur e alcohol) occasional Comments No Sex and Gender Information Value Date Recorded Sex Assigned at Not on file Legal Sex Female 8:34 AM EST Gender Identity Not on file Sexual Orientation Not on file documented as of this encounter Plan of Treatment Not on file documented as of this encounter Visit Diagnoses Not on filedocumented in this encounter Care Teams Manager Meeting Relationship Specialty Start Date End Date Juaquin Rae DO [address] [facility] [address] [place] [address] PCP - General Family Medicine 06/10/16 documented as of this encounter
--- OUTSIDE RECORDS SUMMARY | 2024-08-09 14:18 | XMS_ITS | Clinical Summary ---
Author Organization [facility] Address [facility] [place] [address] Care Team Providers Care Roof Service Technician Name Role Phone Juaquin Rae DO Primary Care Provid er Allergies Active Allergy Reactions Criticality Noted Date Comments Nsaids (Non-Steroidal Anti-Inflammatory Drug) Other: See Comments 06/10/2016 Pt states adverse reaction of ulcers occurs advised not to take Medications drospir-eth estra-levomefol Ca (BEYAZ) 3-0.02-0.451 mg (24) ORAL Tab Take 1 tablet by mouth once daily. 0 07/18/2010 Active MULTI-VITAMIN ORAL Take by mouth. Active traZODone (DESYREL) 50 mg tablet Take 50 mg by mouth at bedtime as needed. 10/02/2021 Active buPROPion XL (WELLBUTRIN XL) 150 mg 24 hr tablet TAKE 1 TABLET BY MOUTH ONCE DAILY IN THE MORNING. DO NOT CRUSH, CHEW, OR SPLIT. Active dexmethylphenid ate XR (FOCALIN XR) 10 mg biphasic capsule TAKE 1 CAPSULE BY MOUTH EVERY DAY DO NOT CRUSH/CHEW/S PLIT 08/07/2023 Active Active Problems Problem Noted Date Diagnosed Date Personal history of malignant melanoma of skin 0 09/15/2019 Multiple benign nevi 09/15/2019 Solar lentigo 09/15/2019 Exposure to tanning bed 09/15/2019 Angioma of skin 09/15/2019 Skin tag 09/15/2019 Encounters Date Type Department Care Team Description 05/24/2024 Patient [facility] -[address] [place] [address] Sobeida Berrios RPh At your next appointment, choose [facility]. from Last 3 Months Social History Tobacco Use Types Packs/Day Years Used Date Smoking Tobacco: Never Alcohol Use Standard Drinks/Week Comments Yes 0 (1 standard drink = 0.6 oz pur e alcohol) occasional Area Deprivation Index Answer Date Renaldo rded National Score (1-100), lower number is lower ri sk 52 09/01/2023 State Score (1-10), lower number is lower risk 3 09/01/2023 Data from: https://www.neighborhoodatlas.[facility]/. Last address used for calculation [address] 09/01/2023 Comments No Sex and Gender Information Value Date Recorded Sex Assigned at Not on file Legal Sex Female 8:34 AM EST Gender Identity Not on file Sexual Orientation Not on file Last Filed Vital Signs Vital Sign Reading Time Taken Comments Blood Pressure 108/67 06/10/2016 6:16 PM EDT Pulse 82 06/10/2016 6:16 PM EDT Temperature 37.1 C (98.8 F) 12/26/2019 2:06 PM EDT Respiratory Rate 18 06/10/2016 6:16 PM EDT Oxygen Saturation 99% 06/10/2016 6:16 PM EDT Inhaled Oxygen Concentration - - Weight 88 kg (194 lb) 06/10/2016 4:20 PM EDT Height 165.1 cm (5' 5 ) 06/10/2016 4:20 PM EDT Body Mass Index 32.28 06/10/2016 4:20 PM EDT Plan of Treatment Health Maintenance Due Date Last Done Comments Anxiety Screening 10/26/2005 Depression Screening 10/26/2005 HIV Screening 10/26/2005 Hepatitis C Screening 10/26/2005 DTaP,Tdap,Td Vaccine (1 - Tdap) 10/26/2006 Hepatitis B Vaccine (1 of 3 - 19+ 3-dose series) 10/26/2006 Cervical Cancer Screening 10/26/2008 Covid-19 Vaccine (2023- season) 2023, 10/04/2020 Influenza Vaccine (Season Ended) 2024 Insurance [facility] PPO Care Teams Roof Service Technician Relationship Specialty Start Date End Date Juaquin Rae DO [address] [facility] [address] [place] [address] PCP - General Family Medicine 06/10/16
--- OUTSIDE RECORDS SUMMARY | 2024-08-09 14:18 | XMS_ITS | Encounter Summary ---
Author Organization [facility] Address [address] [place] [address] Care Team Providers Care Physical Therapist Center Manager Name Role Phone Juaquin Rae DO Primary Care Provider +1- [phone] Encounter Details Date Type Department Care Team (Late st Contact Info) Description 04/05/2024 Abstract [facility] [address] ANTHONY [address] [place] [address] Juaquin Rae, DO [address] Anthony [address] [place] [address] Social History Tobacco Use Types Packs/Day Years [...] EDT Ancillary Procedure [facility] OB [address] [place] [address] 08/17/2024 11:00 AM EDT Routine [facility] OB [address] [place] [address] Matt Stapleton, DO [address] [place] [address] 10/26/2024 4:00 PM EDT Office Visit [facility] OB [address] [facility] [place] [address] Matt Stapleton DO [address] [facility] [address] [place], [place] [id number] documented as of this encounter Visit Diagnoses Not on filedocumented in this encounter Care Teams Physical Therapist Center Manager Relationship Specialty Start Date End Date Juaquin Rae DO [address] [facility] 230 [place] [address] PCP - General Family Medicine 07/15/22 documented as of this encounter
--- OUTSIDE RECORDS SUMMARY | 2024-08-09 14:18 | XMS_ITS | Encounter Summary ---
Author Organization [facility] Address [address] [place] [address] Care Team Providers Care Consumer Attorney Name Role Phone Juaquin Rae Primary Care Provider +1- [phone] Encounter Details Date Type Department Care Team (Late st Contact Info) Description 01/30/2024 Clinisync Result Encounter [facility] External Department Unsolicited Neisha Stapleton, DO [address] [place] [address] Dr [place]ett [place], [place] [id number] Social History Tobacco Use Types Packs/Day Years [...] Ancillary Procedure [facility] OB [address] [place] [address] 08/17/2024 11:00 AM EDT Routine [facility] OB [address] [place] [address] Neisha Stapleton DO [address] [place], [place] [address] [address] 10/26/2024 4:00 PM EDT Office Visit [facility] OB [address] [facility] [place] [address] Neisha Stapleton DO [address] [place] [address] [place] [address] documented as of this encounter Procedures Procedure Name Priority Date/Time Associated Diagnosis Comments US OB TRANSVAGINAL 01/30/2024 7: 28 AM EST documented in this encounter Results * US OB TRANSVAGINAL (01/30/2024 7:28 AM EST) Anatomical Region Laterality Modality Other 01/30/2024 7:28 AM EST Narrative 01/30/2024 7:31 AM EST [address] [address] Ultrasound Report Signed Patient: MICHAEL WELLER MR#: [id number] : 1985 Acct:[id number] Age/Sex: 38 / F ADM Date: 01/29/24 Loc: US Attending Dr: Neisha Stapleton D.O. Ordering Physician: Neisha Stapleton D.O. Date of Service: 01/29/24 Procedure(s): US OB transvaginal Accession Number(s): [id number] cc: Neisha Stapleton D.O.; Physician,Non-Staff MRajeev The [address] [address] Patient Name: MICHAEL WELLER MRN: [id number] date: 1985 Sex: F Assigned Patient Location: US Current Patient Location: Accession/Order Number: [id number] Exam Date: 01/29/2024 16:10 Report Date: 01/30/2024 07:28 At the request of: NEISHA STAPLETON Procedure: US OB transvaginal EXAMINATION: US OB transvaginal HISTORY: Missed Menses N92.6, History of miscarriage Z87.59 COMPARISON: No relevant comparison available. FINDINGS: GESTATIONAL SAC: Present YOLK SAC: Present POLE: Absent CARDIAC: Absent UTERUS: Normal size and appearance. OVARIES: Right: Slightly hypoechoic 1.3 cm area which may represent a corpus lutein cyst or complex cyst. Left: 0.9 cm cystic fluid collection adjacent to the left ovary, likely an incidental exophytic cyst. CERVIX: 3.6 cm in length and closed. CUL-DE-SAC: Normal. OTHER: None. AGE BY LMP: 6 weeks 0 days AMALIA BY LMP: 09/23/2024 AGE BY US SAC SIZE: 5 weeks 2 days AMALIA BY US SAC SIZE: 09/28/2024 US/US OB transvaginal IMPRESSION: 1. Very early intrauterine with no visible pole this time. Follow-up recommended. Electronically authenticated by: CASH WOLFF Date: 01/30/2024 07:28 Dictated By: Cash Wolff M.D. Signed By: 01/30/2431 DD/ 7 TD/TT: Balancing Machine Set Up Worker: Procedure Note Radiology, Radiologist, MD - 01/30/2024 [place] [address] Ultrasound Report Signed Patient: MICHAEL WELLER RMR#: [id number] : 1985Acct:[id number] Age/Sex: 38 / FADM Date: 01/29/24 Loc: US Attending Dr: Neisha Stapleton D.O. Ordering Physician: Neisha Stapleton D.O. Date of Service: 01/29/24 Procedure(s): US OB transvaginal Accession Number(s): [id number] cc: Neisha Stapleton D.O.; Physician,Non-Staff Ramiro The [place] [address] Patient Name: MICHAEL WELLER MRN: [id number] date: 1985 Sex: F Assigned Patient Location: US Current Patient Location: Accession/Order Number: [id number] Exam Date: 01/29/2024 16:10 Report Date: 01/30/2024 07:28 At the request of: NEISHA STAPLETON Procedure: US OB transvaginal EXAMINATION: US OB transvaginal HISTORY: Missed Menses N92.6, History of miscarriage Z87.59 COMPARISON: No relevant comparison available. FINDINGS: GESTATIONAL SAC: Present YOLK SAC: Present POLE: Absent CARDIAC: Absent UTERUS: Normal size and appearance. OVARIES: Right: Slightly hypoechoic 1.3 cm area which may represent acorpus lutein cyst or complex cyst. Left: 0.9 cm cystic fluid collection adjacentto the left ovary, likely an incidental exophytic cyst. CERVIX: 3.6 cm in length and closed. CUL-DE-SAC: Normal. OTHER: None. AGE BY LMP: 6 weeks 0 days AMALIA BY LMP: 09/23/2024 AGE BY US SAC SIZE: 5 weeks 2 days AMALIA BY US SAC SIZE: 09/28/2024 US/US OB transvaginal IMPRESSION: 1. Very early intrauterine with no visible pole this time. Follow-up recommended. Electronically authenticated by: CASH WOLFF Date: 01/30/2024 07:28 Dictated By: Cash Wolff M.D. Signed By:01/30/2431 DD/ 7 TD/TT: Balancing Machine Set Up Worker: us Neisha Stapleton DO [facility] Final Result documented in this encounter Visit Diagnoses Not on filedocumented in this encounter Care Teams Consumer Attorney Relationship Specialty Start Date End Date Juaquin Rae DO [address] [address] PCP - General Family Medicine 07/15/22 documented as of this encounter
--- OUTSIDE RECORDS SUMMARY | 2024-08-09 14:18 | XMS_ITS | Encounter Summary ---
Author Organization [facility] Address [address] [place] [address] Care Team Providers Care J2Ee Java Developer Name Role Phone Juaquin Rae Primary Care Provider +1- [phone] Encounter Details Date Type Department Care Team (Late st Contact Info) Description 02/09/2024 Clinisync Result Encounter [facility] External Department Unsolicited Neisha Stapleton, DO [address] [place] [address] Dr [place]ett [place], [place] [id number] Social History Tobacco Use Types Packs/Day Years [...] EDT Ancillary Procedure [facility] [address] [facility] [place] [address] 08/17/2024 11:00 AM EDT Routine [facility] BCP OB [address] [place] [address] Neisha Stapleton DO [address] [place], [place] [address] [address] 10/26/2024 4:00 PM EDT Office Visit [facility] OB [address] [facility] [place] [address] Neisha Stapleton DO [address] [facility] [place] [address] documented as of this encounter Procedures Procedure Name Priority Date/Time Associated Diagnosis Comments US OB TRANSVAGINAL 02/09/2024 10 :09 AM EST documented in this encounter Results * US OB TRANSVAGINAL (02/09/2024 10:09 AM EST) Anatomical Region Laterality Modality Other 02/09/2024 10:0 9 AM EST Narrative 02/09/2024 10:12 AM EST [address] [address] Ultrasound Report Signed Patient: MICHAEL WELLER MR#: [id number] : 1985 Acct:[id number] Age/Sex: 38 / F ADM Date: 02/09/24 Loc: [facility]OM[facility] Attending Dr: Neisha Stapleton D.O. Ordering Physician: Neisha Stapleton D.O. Date of Service: 02/09/24 Procedure(s): US OB transvaginal Accession Number(s): [id number] cc: Neisha Stapleton D.O.; Physician,Non-Staff M.Cristal [address] [address] Patient Name: MICHAEL WELLER MRN: [id number] date: 1985 Sex: F Assigned Patient Location: [facility] Current Patient Location: [facility] Accession/Order Number: [id number] Exam Date: 02/09/2024 09:06 Report Date: 02/09/2024 10:09 At the request of: NEISHA STAPLETON Procedure: US OB transvaginal EXAMINATION: US OB transvaginal HISTORY: VIABILITY COMPARISON: 01/29/2024 FINDINGS: Transvaginal images George intrauterine gestation Gestational sac: Normal morphology. 2.67 cm, 7 weeks 3 days CRL: 6.4 mm, 6 weeks 3 days Yolk sac: 3.7 mm Heart rate: 144 minute Cervix: Closed, 3.8 cm The uterus is normal, anteverted, anteflexed The ovaries are normal. Clinical age: 7 weeks 4 days Clinical AMALIA: 09/23/2024 Ultrasound age: 6 weeks 3 days Ultrasound AMALIA: 10/01/2024 US/US OB transvaginal IMPRESSION: Viable single intrauterine gestation measuring 6 weeks 3 days Electronically authenticated by: TREMAYNE OHARA Date: 02/09/2024 10:09 Dictated By: Tremayne Ohara M.D. Signed By: 02/09/24 1012 DD/ 1009 TD/TT: Document Review Attorney: Procedure Note Radiology, Radiologist, MD - 02/09/2024 [place] [address] Ultrasound Report Signed Patient: MICHAEL WELLER RMR#: [id number] : 1985Acct:[id number] Age/Sex: 38 / FADM Date: 02/09/24 Loc: [facility] Attending Dr: Neisha Stapleton D.O. Ordering Physician: Neisha Stapleton D.O. Date of Service: 02/09/24 Procedure(s): US OB transvaginal Accession Number(s): [id number] cc: Neisha Stapleton D.O.; Physician,Non-Staff Ramiro The [place] [id number] Patient Name: MICHAEL WELLER MRN: [id number] date: 1985 Sex: F Assigned Patient Location: [facility] Current Patient Location: [facility] Accession/Order Number: [id number] Exam Date: 02/09/2024 09:06 Report Date: 02/09/2024 10:09 At the request of: NEISHA STAPLETON Procedure: US OB transvaginal EXAMINATION: US OB transvaginal HISTORY: VIABILITY COMPARISON: 01/29/2024 FINDINGS: Transvaginal images George intrauterine gestation Gestational sac: Normal morphology. 2.67 cm, 7 weeks 3 days CRL: 6.4 mm, 6 weeks 3 days Yolk sac: 3.7 mm Heart rate: 144 minute Cervix: Closed, 3.8 cm The uterus is normal, anteverted, anteflexed The ovaries are normal. Clinical age: 7 weeks 4 days Clinical AMALIA: 09/23/2024 Ultrasound age: 6 weeks 3 days Ultrasound AMALIA: 10/01/2024 US/US OB transvaginal IMPRESSION: Viable single intrauterine gestation measuring 6 weeks 3 days Electronically authenticated by: TREMAYNE OHARA Date: 02/09/2024 10:09 Dictated By: Tremayne Ohara M.D. Signed By:02/09/24 1012 DD/ 1009 TD/TT: Document Review Attorney: us Neisha Stapleton DO [facility] Final Result documented in this encounter Visit Diagnoses Not on filedocumented in this encounter Care Teams J2Ee Java Developer Relationship Specialty Start Date End Date Juaquin Rae DO [address] [place] [id number] PCP - General Family Medicine 07/15/22 documented as of this encounter
--- OUTSIDE RECORDS SUMMARY | 2024-08-09 14:18 | XMS_ITS | Encounter Summary ---
Author Organization [facility] Address [address] [place] [address] Care Team Providers Care Sander Hand Name Role Phone Juaquin Rae Primary Care Provider +1- [phone] Encounter Details Date Type Department Care Team (Late st Contact Info) Description 2023 Orders Only [facility] OB [address] [place] [address] Susi Hurtado [address] [place] [address] Social History Tobacco Use Types Packs/Day Years [...] 08/09/2024 3:00 PM EDT Ancillary Procedure [facility] OB [address] [place] [address] 08/17/2024 11:00 AM EDT Routine [facility] OB [address] [facility] [place] [address] Matt Stapleton DO [address] [place] [address] [place] [address] 10/26/2024 4:00 PM EDT Office Visit [facility] OB [address] [place] [address] Matt Stapleton DO [address] [facility] [place] [address] documented as of this encounter Procedures Procedure Name Priority Date/Time Associated Diagnosis Comments PAP SMEAR Routine 10/20/2023 12:00 AM EDT documented in this encounter Results * Pap Smear (10/20/2023 12:00 AM EDT) Swab Cervical swab / Unknown us Matt Stapleton DO LAB CYTOLOGY ORDERABLES Final Re sult EXTERNAL LAB documented in this encounter Visit Diagnoses Not on filedocumented in this encounter Care Teams Sander Hand Relationship Specialty Start Date End Date Juaquin Rae DO [address] [facility] 230 [place] [address] PCP - General Family Medicine 07/15/22 documented as of this encounter
--- OUTSIDE RECORDS SUMMARY | 2024-08-09 14:18 | XMS_ITS ---
Author Organization [facility] Source Produ ction (ClinicalSummary Clone) Address Unknown Care Team Providers Care Sign Builder Supervisor Name Role Phone Unavailable Primary Care Physician Unavailab le Results * [UNITY] ANEUPLOIDY NIPT Performed by: [employer] Value Range Date Fraction 5.2% 03/13/2024 07 :21 am [facility] Sex Chromosome Aneuploidy NOT DETECTED 07:21 am [facility] Monosomy X LOW RISK <1 in 10,000 2024 07:21 am [place] Trisomy 13 LOW RISK <1 in 10,000 2024 07:21 am [facility] Trisomy 18 LOW RISK <1 in 10,000 2024 07:21 am [place] Trisomy 21 LOW RISK <1 in 10,000 2024 07:21 am [facility] Sex MALE 03/13/2024 07:2 1 am [facility] Gestation LEON 03/13/19 07:21 am [facility] For detailed report, see PDF See PDF 03/13/2024 07:21 am [facility] 03/13/2024 07:2 1 am [facility] Social History Observation Value Start Date End Date
--- OUTSIDE RECORDS SUMMARY | 2024-08-09 14:18 | XMS_ITS | Encounter Summary ---
Author Organization [facility] Address [id number] [address] [place] [address] Care Team Providers Care Marketing Representative Name Role Phone Unavailable Primary Care Provider Unavailabl e Encounter Details Date Type Department Care Team (Latest Contact Info) Description 08/09/2024 Travel Social History Tobacco Use Types Packs/Day Years [...] 1:30 PM EDT Telemedicine Maternal- Medicine at [facility] [address] [place] [address] Lucretia Art PA-C [address] [address] documented as of this encounter Visit Diagnoses Not on filedocumented in this encounter
--- OUTSIDE RECORDS SUMMARY | 2024-08-09 14:18 | XMS_ITS | Encounter Summary ---
Author Organization [facility] Address [address] [place] [address] Care Team Providers Care Dictating Machine Mechanic Name Role Phone Juaquin Rae Amira SORIA Primary Care Provider +1- [phone] Encounter Details Date Type Department Care Team (Late st Contact Info) Description 02/16/2024 Abstract [facility] OB [address] [place] [address] Matt Stapleton [facility] [address] [place], [place] [address] Social History Tobacco Use Types Packs/Day Years [...] 08/09/2024 3:00 PM EDT Ancillary Procedure [facility] OB [facility] [place] [address] 08/17/2024 11:00 AM EDT Routine [facility] OB [address] [place] [address] Matt Stapleton DO [facility] [place] [address] 10/26/2024 4:00 PM EDT Office Visit [facility] B[facility] OB [address] [place] [address] Matt Stapleton DO [address] [facility] [address] [place], [place] [phone] documented as of this encounter Visit Diagnoses Not on filedocumented in this encounter Care Teams Dictating Machine Mechanic Relationship Specialty Start Date End Date Juaquin Rae DO [address] [facility] [address] [place] [address] PCP - General Family Medicine 07/15/22 documented as of this encounter
--- OUTSIDE RECORDS SUMMARY | 2024-08-09 14:18 | XMS_ITS | Encounter Summary ---
Author Organization [facility] Address [address] [place] [address] Care Team Providers Care Income Tax Investigator Name Role Phone Juaquin Rae Amira SORIA Primary Care Provider +1- [phone] Encounter Details Date Type Department Care Team (Late st Contact Info) Description 03/11/2024 Abstract [facility] OB [address] [place] [address] Matt Stapleton [facility] [address] [place], [place] [address] Social History Tobacco Use Types Packs/Day Years [...] 08/09/2024 3:00 PM EDT Ancillary Procedure [facility] OB [facility] [place] [address] 08/17/2024 11:00 AM EDT Routine [facility] OB [address] [place] [address] Matt Stapleton DO [facility] [place] [address] 10/26/2024 4:00 PM EDT Office Visit [facility] BCP OB [address] [facility] [place] [address] Matt Stapleton DO [address] [facility] [address] [place], [place] [address] documented as of this encounter Visit Diagnoses Not on filedocumented in this encounter Care Teams Income Tax Investigator Relationship Specialty Start Date End Date Juaquin Rae DO [address] [facility] 230 [place] [address] PCP - General Family Medicine 07/15/22 documented as of this encounter
--- OUTSIDE RECORDS SUMMARY | 2024-08-09 14:18 | XMS_ITS | Encounter Summary ---
Author Organization [facility] Address [address] [place] [address] Care Team Providers Care Music Publicist Name Role Phone Juaquin Rae DO Primary Care Provid er Source Comments In the event this information is protected by the Federal Confidentiality of Alcohol and Drug AbusePatient Records regulations: The Federal rules restrict any use of the information to criminally investigate or prosecute any alcohol or drug abuse patient.[facility] Encounter Details Date Type Department Care Team (Late st Contact Info) Description 02/08/2018 Patient Msg Dermatology [address] [place] [address] Provider, [facility] Appointment tomorrow Social History Tobacco Use Types Packs/Day Years [...] on filedocumented in this encounter Care Teams Music Publicist Relationship Specialty Start Date End Date Juaquin Rae DO [address] [facility] [address] [place] [address] PCP - General Family Medicine 06/10/16 documented as of this encounter
--- OUTSIDE RECORDS SUMMARY | 2024-08-09 14:18 | XMS_ITS | Encounter Summary ---
Author Organization [facility] Address [address] [place] [address] Care Team Providers Care Gathering Machine Feeder Name Role Phone Juaquin Rae Amira SORIA Primary Care Provider +1- [phone] Encounter Details Date Type Department Care Team (Late st Contact Info) Description 03/14/2024 Abstract [facility] OB [address] [place] [address] Matt Stapleton [facility] [address] [place], [place] [address] Social History Tobacco Use Types Packs/Day Years [...] 08/09/2024 3:00 PM EDT Ancillary Procedure [facility] OB [facility] [place] [address] 08/17/2024 11:00 AM EDT Routine [facility] OB [address] [place] [address] Matt Stapleton DO [facility] [place] [address] 10/26/2024 4:00 PM EDT Office Visit [facility] B[facility] OB [address] [facility] [address] Matt Stapleton DO [address] [facility] [address] [place], [place] [address] documented as of this encounter Visit Diagnoses Not on filedocumented in this encounter Care Teams Gathering Machine Feeder Relationship Specialty Start Date End Date Juaquin Rae DO [address] [facility] 230 [place] [address] PCP - General Family Medicine 07/15/22 documented as of this encounter
--- OUTSIDE RECORDS SUMMARY | 2024-08-09 14:19 | XMS_ITS | Encounter Summary ---
Author Organization [facility] Address [address] [place] [address] Care Team Providers Care Corporate Development Analyst Name Role Phone Juaquin Rae Primary Care Provider [phone] Encounter Details Date Type Department Care Team (Late st Contact Info) Description 08/06/2024 Clinisync Result Encounter [facility] External Department Unsolicited Neisha Stapleton, DO [address] [place] [address] [address] [place], [place] [id number] Social History Tobacco Use Types Packs/Day Years [...] EDT Ancillary Procedure [facility] [address] [place] [address] 08/17/2024 11:00 AM EDT Routine [facility] [address] [place] [id number] Neisha Stapleton [facility] [address] [place], [place] [id number] 10/26/2024 4:00 PM EDT Office Visit [facility] [address] [facility] [place] [address] Neisha Stapleton DO [address] [facility] [place] [address] documented as of this encounter Goals Goal Patient Goal Type Associated Problems Recent Progress Patient-Stated? Author Reminders Care Plan OB Reminders No Open Scheduling, Background documented as of this encounter Procedures Procedure Name Priority Date/Time Associated Diagnosis Comments US OB BPP W NON-STRESS 08/06/2024 12:12 PM EDT documented in this encounter Results * US OB BPP W NON-STRESS (08/06/2024 12:12 PM EDT) Anatomical Region Laterality Modality Other 08/06/2024 12:1 2 PM EDT Narrative 08/06/2024 12:14 [place] [address] Ultrasound Report Signed Patient: MICHAEL ROQUE MR#: [id number] : 1985 Acct:[id number] Age/Sex: 38 / F ADM Date: 08/05/24 Loc: US Attending Dr: Neisha Stapleton D.O. Ordering Physician: Neisha Stapleton D.O. Date of Service: 08/05/24 Procedure(s): US OB BPP w non-stress Accession Number(s): [id number] cc: Neisha Stapleton D.O.; Physician,Non-Staff M.DJonathan The [address] [address] Patient Name: MICHAEL ROQUE MRN: [id number] date: 1985 Sex: F Assigned Patient Location: US Current Patient Location: Accession/Order Number: [id number] Exam Date: 08/06/2024 12:11 Report Date: 08/06/2024 12:12 At the request of: NEISHA DAYA DO Procedure: US OB BPP w non-stress Ultrasound biophysical profile HISTORY: Gestational diabetes There is adequate breathing movement, gross body movement, tone and amniotic fluid volume for total score of 8 out of 8. The amniotic fluid index is 14.6 cm within normal limits. The heart rate 144 bpm. US/US OB BPP w non-stress IMPRESSION: Adequate ultrasound biophysical profile Impression dictated by: Roddy Villegas M.D. 08/06/2024 12:12 PM Dictation Location: [employer] Electronically authenticated by: [id number] Y Date: 08/06/2024 12:12 Dictated By: Roddy Villegas D.O. Signed By: 08/06/24 1214 DD/ 1212 TD/TT: Research Management Associate: Procedure Note Radiology, Radiologist, - 08/06/2024 [place] [address] Ultrasound Report Signed Patient: MICHAEL ROQUE RMR#: [id number] : 1985Acct:[id number] Age/Sex: 38 / FADM Date: 08/05/24 Loc: US Attending Dr: Neisha Stapleton D.O. Ordering Physician: Neisha Stapleton D.O. Date of Service: 08/05/24 Procedure(s): US OB BPP w non-stress Accession Number(s): [id number] cc: Neisha Stapleton D.O.; Physician,Non-Staff MRajeev [place] [id number] Patient Name: MICHAEL ROQUE MRN: [id number] date: 1985 Sex: F Assigned Patient Location: US Current Patient Location: Accession/Order Number: [id number] Exam Date: 08/06/2024 12:11 Report Date: 08/06/2024 12:12 At the request of: NEISHA STAPLETON DO Procedure: US OB BPP w non-stress Ultrasound biophysical profile HISTORY: Gestational diabetes There is adequate breathing movement, gross body movement, fetaltone and amniotic fluid volume for total score of 8 out of 8. The amnioticfluid index is 14.6 cm within normal limits. The heart rate 144 bpm. US/US OB BPP w non-stress IMPRESSION: Adequate ultrasound biophysical profile Impression dictated by: Roddy Villegas M.D. 08/06/2024 12:12 PM Dictation Location: [employer] Electronically authenticated by: [id number] Y Date: 2:12 Dictated By: Roddy Villegas D.O. Signed By:08/06/24 1214 DD/ 1212 TD/TT: Research Management Associate: us Neisha Daya DO [facility] Final Result documented in this encounter Visit Diagnoses Not on filedocumented in this encounter Additional Health Concerns Active Problems Noted Date Diagnosed Date OB Reminders 04/14/2024 documented as of this encounter Care Teams Corporate Development Analyst Relationship Specialty Start Date End Date Juaquin Rae DO [address] [address] PCP - General Family Medicine 07/15/22 documented as of this encounter
--- OUTSIDE RECORDS SUMMARY | 2024-08-09 14:19 | XMS_ITS | Encounter Summary ---
Author Organization [facility] Address [address] [place] [address] Care Team Providers Care Fiberglass Container Winding Operator Name Role Phone Juaquin Rae DO Primary Care Provid er Source Comments In the event this information is protected by the Federal Confidentiality of Alcohol and Drug AbusePatient Records regulations: The Federal rules restrict any use of the information to criminally investigate or prosecute any alcohol or drug abuse patient.[facility] Encounter Details Date Type Department Care Team (Late st Contact Info) Description 12/08/2022 Patient Msg Dermatology [place] [address] [place] [address] Roula Hodge APRN.CHIP MIXER [address] [place] [address] Appointment Request Social History Tobacco Use Types Packs/Day Years Used Date Smoking Tobacco: Never Alcohol Use Standard Drinks/Week Comments Yes 0 (1 standard drink = 0.6 oz pur e alcohol) occasional Area Deprivation Index Answer Date Renaldo rded National Score (1-100), lower number is lower ri sk 48 03/28/2022 State Score (1-10), lower number is lower risk N ot on file 03/28/2022 Data from: https://www.neighborhoodatlas.medicine.[facility].edu/. Last address used for calculation [address] [place]pp[address] Eugene Martinez 03/28/2022 Comments No Sex and Gender Information Value Date Recorded Sex Assigned at Not on file Legal Sex Female 8:34 AM EST Gender Identity Not on file Sexual Orientation Not on file documented as of this encounter Plan of Treatment Not on file documented as of this encounter Visit Diagnoses Not on filedocumented in this encounter Care Teams Fiberglass Container Winding Operator Relationship Specialty Start Date End Date Juaquin Rae DO [address] [facility] [address] [place] [id number] PCP - General Family Medicine 06/10/16 documented as of this encounter
--- OUTSIDE RECORDS SUMMARY | 2024-08-09 14:19 | XMS_ITS | Encounter Summary ---
Author Organization [facility] Address [address] [place] [address] Care Team Providers Care Special Events Assistant Name Role Phone Juaquin Rae DO Primary Care Provid er Source Comments In the event this information is protected by the Federal Confidentiality of Alcohol and Drug AbusePatient Records regulations: The Federal rules restrict any use of the information to criminally investigate or prosecute any alcohol or drug abuse patient.[facility] Encounter Details Date Type Department Care Team (Late st Contact Info) Description 05/24/2024 Patient [facility] [place] [address] Sobeida Berrios RPh At your next appointment, choose [facility]. Social History Tobacco Use Types Packs/Day Years Used Date Smoking Tobacco: Never Alcohol Use Standard Drinks/Week Comments Yes 0 (1 standard drink = 0.6 oz pur e alcohol) occasional Area Deprivation Index Answer Date Renaldo rded National Score (1-100), lower number is lower ri sk 52 09/01/2023 State Score (1-10), lower number is lower risk 3 09/01/2023 Data from: https://www.neighborhoodatlas.medicine.[facility].edu/. Last address used for calculation [address] [...] on filedocumented in this encounter Care Teams Special Events Assistant Relationship Specialty Start Date End Date Juaquin Rae DO [address] [facility] [address] [place] [address] PCP - General Family Medicine 06/10/16 documented as of this encounter
--- OUTSIDE RECORDS SUMMARY | 2024-08-09 14:19 | XMS_ITS | Encounter Summary ---
Author Organization [facility] Address [address] [place] [address] Care Team Providers Care Patrol Lady Name Role Phone Juaquin Rae DO Primary Care Provid er Source Comments In the event this information is protected by the Federal Confidentiality of Alcohol and Drug AbusePatient Records regulations: The Federal rules restrict any use of the information to criminally investigate or prosecute any alcohol or drug abuse patient.[facility] Encounter Details Date Type Department Care Team (Late st Contact Info) Description 04/20/2024 Patient Msg Dermatology [place] [address] [place] [address] Roula Hodge APRN.INTERNET MARKETING EXECUTIVE [address] [place] [address] Appointment Request Social History Tobacco Use Types Packs/Day Years Used Date Smoking Tobacco: Never Alcohol Use Standard Drinks/Week Comments Yes 0 (1 standard drink = 0.6 oz pur e alcohol) occasional Area Deprivation Index Answer Date Renaldo rded National Score (1-100), lower number is lower ri sk 52 09/01/2023 State Score (1-10), lower number is lower risk 3 09/01/2023 Data from: https://www.neighborhoodatlas.medicine.[facility].edu/. Last address used for calculation [address] Knight 09/01/2023 Comments No Sex and Gender Information Value Date Recorded Sex Assigned at Not on file Legal Sex Female 8:34 AM EST Gender Identity Not on file Sexual Orientation Not on file documented as of this encounter Plan of Treatment Not on file documented as of this encounter Visit Diagnoses Not on filedocumented in this encounter Care Teams Patrol Lady Relationship Specialty Start Date End Date Juaquin Rae DO [address] [place] [address] [place] [address] PCP - General Family Medicine 06/10/16 documented as of this encounter
--- OUTSIDE RECORDS SUMMARY | 2024-08-09 14:19 | XMS_ITS | Encounter Summary ---
Author Organization [facility] Address [address] [place] [address] Phone Care Team Providers Care Rail Signal Worker Name Role Phone Rafaela Garrido Primary Care Provider Unavailable Rafaela Garrido Unavailable Unava ilable Trever Lee MD Unavailable Gina Man DO Unavailable Encounter Details Date Type Department Care Team (Late st Contact Info) Description 10/09/2018 Orders Only [facility] [address] [place] [address] Conversion, Onbase Social History Tobacco Use Types Packs/Day Years Used Date Smoking Tobacco: Never Assessed Comments Unknown Sex and Gender Information Value Date Recorded Sex Assigned at Not on file Legal Sex Female 2:46 PM EST Gender Identity Not on file Sexual Orientation Not on file documented as of this encounter Plan of Treatment Scheduled Orders Name Type Priority Associated Diagnoses Orde r Schedule OUTSIDE LAB SCAN Lab Ordered: 10/09/2018 documented as of this encounter Visit Diagnoses Not on filedocumented in this encounter Care Teams Rail Signal Worker Relationship Specialty Start Date End Date Rafaela Garrido APRN-CNP PCP - General 07/06/18 10/28/22 Rafaela Garrido APRN-CNP Office Address Unavailable as of 08/07/2022 PCP - [facility]CO PCP 03/09/21 10/06/22 [place] [address] [facility] [address] [place] [address] PCP - MMO ACO PCP 03/09/23 10/07/23 Trever Lee MD [address] [facility], [address] [place] [address] Consulting Physician Neurology 02/19/23 documented as of this encounter
--- OUTSIDE RECORDS SUMMARY | 2024-08-09 14:19 | XMS_ITS | Encounter Summary ---
Author Organization [facility] Address [address] [place] [address] Care Team Providers Care Cyber Security Engineer Name Role Phone Juaquin Rae DO Primary Care Provid er Source Comments In the event this information is protected by the Federal Confidentiality of Alcohol and Drug AbusePatient Records regulations: The Federal rules restrict any use of the information to criminally investigate or prosecute any alcohol or drug abuse patient.[facility] Encounter Details Date Type Department Care Team (Late st Contact Info) Description 08/13/2023 Patient Msg Dermatology [place] [address] [place] [address] Roula Hodge APRN.REFRIGERATION PERSON [address] [place] [address] Appointment Request Social History Tobacco [...] N ot on file 03/28/2022 Data from: https://www.neighborhoodatlas.medicine.[facility].edu/. Last address used for calculation [place] [...] on filedocumented in this encounter Care Teams Cyber Security Engineer Relationship Specialty Start Date End Date Juaquin Rae DO [address] [facility] [address] [place] [id number] PCP - General Family Medicine 06/10/16 documented as of this encounter
--- OUTSIDE RECORDS SUMMARY | 2024-08-09 14:19 | XMS_ITS | Clinical Summary ---
Author Organization [facility] Address [address] [place] [address] Phone Care Team Providers Care Alumina Refinery Operator Name Role Phone Trever Lee MD Unavailable [phone] Allergies Active Allergy Reactions Criticality Noted Date Comments Cat Dander Itching Low 11/28/2022 Cat Hair Standardized Allergenic Extract Itching Low 11/28/2022 Latex Rash Low 08/28/2022 Loracarbef Unknown Low 08/28/2022 Other Reaction(s): Unknown Nsaids (Non-Steroidal Anti-Inflammatory Drug) Other Low 06/10/2016 Pt states adverse reaction of ulcers occurs advised not to take Medications cholecalciferol (Vitamin D-3) 50 mcg (2,000 unit) capsule Take 1 capsule (50 mcg) by mouth early in the morning.. Active buPROPion XL (Wellbutrin XL) 150 mg 24 hr tabletIndications: Anxiety Take 1 tablet (150 mg) by mouth once daily in the morning. Do not crush, chew, or split. 90 tablet 3 3 Active dexmethylphenidate XR (Focalin XR) 10 mg 24 hr capsuleIndications :Attention deficit hyperactivity disorder (ADHD), predominantly inattentive type Take 1 capsule (10 mg) by mouth once daily. Do not crush, chew, or split. 30 capsule 4 Active dexmethylphenidate XR (Focalin XR) 10 mg 24 hr capsuleIndications :Attention deficit hyperactivity disorder (ADHD), predominantly inattentive type Take 1 capsule (10 mg) by mouth once daily. Do not crush, chew, or split. Do not fill before August 21, 2023. 30 capsule 4 Active dexmethylphenidate XR (Focalin XR) 10 mg 24 hr capsuleIndications :Attention deficit hyperactivity disorder (ADHD), predominantly inattentive type Take 1 capsule (10 mg) by mouth once daily. Do not crush, chew, or split. Do not fill before September 20, 2023. 30 capsule 4 Active dexmethylphenidate (Focalin) 5 mg tabletIndications: Attention deficit hyperactivity disorder (ADHD), predominantly inattentive type Take 1 tablet (5 mg) by mouth 2 times a day. At 3 pm and 6 pm as needed. 60 tablet 4 Active dexmethylphenidate (Focalin) 5 mg tabletIndications: Attention deficit hyperactivity disorder (ADHD), predominantly inattentive type Take 1 tablet (5 mg) by mouth 2 times a day. 1-0 at 3 pm, and 6 pm as needed. Do not fill before August 21, 2023. 60 tablet 4 Active dexmethylphenidate (Focalin) 5 mg tabletIndications: Attention deficit hyperactivity disorder (ADHD), predominantly inattentive type Take 1 tablet (5 mg) by mouth 2 times a day. At 3 pm and 6 pm as needed. Do not fill before September 20, 2023. 60 tablet 4 Active cephalexin (Keflex) 500 mg capsule Take 1 capsule (500 mg) by mouth every 12 hours. 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 Overweight 11/28/2022 Pelvic floor dysfunction 11/28/2022 Pelvic pain in female 11/28/2022 Vitamin D deficiency 11/28/2022 Chronic nasopharyngitis 08/28/2022 Reflux esophagitis 08/28/2022 Submandibular gland infection 08/28/2022 Angioma of skin 09/15/2019 Exposure to tanning bed 09/15/2019 Multiple benign nevi 09/15/2019 Personal history of malignant melanoma of skin 0 09/15/2019 Skin tag 09/15/2019 Solar lentigo 09/15/2019 Social History Tobacco Use Types Packs/Day Years Used Date Smoking Tobacco: Never Smokeless Tobacco: Never Tobacco Cessation:Counseling Given: Not Answered Alcohol Use Standard Drinks/Week Comments Defer 0 (1 standard drink = 0.6 oz pur e alcohol) PHQ-2 Answer Date Recorded Patient Health Questionnaire-2 Score 0 01/05/2024 Comments No Sex and Gender Information Value Date Recorded Sex Assigned at Not on file Legal Sex Female 2:46 PM EST Gender Identity Not on file Sexual Orientation Not on file Last Filed Vital Signs Vital Sign Reading Time Taken Comments Blood Pressure 119/76 01/05/2024 11:51 AM EDT Pulse 74 01/05/2024 11:51 AM EDT Temperature 36.8 C (98.2 F) 01/05/2024 11:51 AM EDT Respiratory Rate 18 01/05/2024 11:51 AM EDT Oxygen Saturation 98% 01/05/2024 11:51 AM EDT Inhaled Oxygen Concentration - - Weight 83 kg (183 lb) 01/05/2024 11:51 AM EDT Height 165.1 cm (5' 5 ) 07/22/2023 2:37 PM EDT Body Mass Index 30.45 07/22/2023 2:37 PM EDT Plan of Treatment Health Maintenance Due Date Last Done Comments HIV Screening 1985 Yearly Adult Physical 1985 MMR Vaccines (1 of 1 - Standard series) 10/26/1988 Varicella Vaccines (1 of 2 - 13+ 2-dose series) 10/26/2000 Hepatitis C Screening 10/26/2005 Hepatitis B Vaccines (1 of 3 - 19+ 3-dose series) 10/26/2006 HPV/Cotest 10/26/2008 DTaP/Tdap/Td Vaccines (1 - Tdap) 10/26/2009 COVID-19 Vaccine (3 - season) 2023 10/25/2020, 10/04/2020 Influenza Vaccine (Season Ended) 2024 Lipid Panel 04/23/2025 04/23/2020 Cervical Cancer Screening 10/19/2026 Pap Smear 10/19/2026 10/20/2023, 10/07, 09/01/2022, Additional history exists Zoster Vaccines (1 of 2) 10/26/2037 HIB Vaccines Aged Out No longer eligi ble based on patient's age to complete this topic HPV Vaccines Aged Out No longer eligi ble based on patient's age to complete this topic Hepatitis A Vaccines Aged Out No long er eligible based on patient's age to complete this topic IPV Vaccines Aged Out No longer eligi ble based on patient's age to complete this topic Meningococcal Vaccine Aged Out No clovis benjamin eligible based on patient's age to complete this topic Pneumococcal Vaccine: Pediatrics and At-Risk Adult Patients Aged Out No longer eligible based on patient's age to complete this topic Rotavirus Vaccines Aged Out No longer eligible based on patient's age to complete this topic Procedures Procedure Name Priority Date/Time Associated Diagnosis Comments LIPID PANEL Routine 04/23/2020 10:53 AM EST from Last 3 Months or Most Recently Relevant to Health Maintenance Results * (ABNORMAL) Lipid Panel (04/23/2020 10:53 AM EST) Cholesterol 135 0 - 199 mg/dL [facility] Comment: . AGE DESIRABLE BORDERLINE HIGH HIGH 0-19 Y 0 - 169 170 - 199 >/= 200 20-24 Y 0 - 189 190 - 224 >/= 225 >24 Y 0 - 199 200 - 239 >/= 240 All ranges are based on fasting samples. Specific therapeutic targets will vary based on patient-specific cardiac risk. . Pediatric guidelines reference:Pediatrics 2011, 128(S5). Adult guidelines reference: NCEP ATPIII Guidelines, NANCY 2001, 258:2486-97 . Venipuncture immediately after or during the administration of Metamizole may lead to falsely low results. Testing should be performed immediately prior to Metamizole dosing. HDL 34.0(A) mg/dL [facility] Comment: . AGE VERY LOW LOW NORMAL HIGH 0-19 Y < 35 < 40 40-45 ---- 20-24 Y ---- < 40 >45 ---- >24 Y ---- < 40 40-60 >60 . Cholesterol/HDL Ratio 4.0 [facility] Comment: REF VALUES DESIRABLE < 3.4 HIGH RISK > 5.0 LDL 70 0 - 99 mg/dL [facility] Comment: . NEAR BORD AGE DESIRABLE OPTIMAL HIGH HIGH VERY HIGH 0-19 Y 0 - 109 --- 110-129 >/= 130 ---- 20-24 Y 0 - 119 --- 120-159 >/= 160 ---- >24 Y 0 - 99 100-129 130-159 160-189 >/=190 . VLDL 31 0 - 40 mg/dL [facility] Triglycerides 154(H) 0 - 149 mg/dL [facility] Comment: . AGE DESIRABLE BORDERLINE HIGH HIGH VERY HIGH 0 D-90 D 19 - 174 ---- ---- ---- 91 D- 9 Y 0 - 74 75 - 99 >/= 100 ---- 10-19 Y 0 - 89 90 - 129 >/= 130 ---- 20-24 Y 0 - 114 115 - 149 >/= 150 ---- >24 Y 0 - 149 150 - 199 200- 499 >/= 500 . Venipuncture immediately after or during the administration of Metamizole may lead to falsely low results. Testing should be performed immediately prior to Metamizole dosing. 04/23/2020 10:5 3 AM EST 04/23/2020 11:14 AM EST Rafaela Garrido TIE TAMPER-REVERSE LOGISTICS ANALYST LAB BLOOD ORDERABLES F inal Result [facility] from Last 3 Months or Most Recently Relevant to Health Maintenance Insurance * Guarantor: Jonna Weller Account Type Relation to Patient Date of Phone Billing Address Personal/Family Self 1985 [facility] [place] [address] [facility] Care Teams Alumina Refinery Operator Relationship Specialty Start Date End Date Trever Lee MD [address] [facility] [place] [address] Consulting Physician Neurology 02/19/23
--- OUTSIDE RECORDS SUMMARY | 2024-08-09 14:19 | XMS_ITS | Encounter Summary ---
Author Organization [facility] Address [address] [place] [address] Phone Care Team Providers Care Rapid Outsole Stitcher Name Role Phone Trever Lee MD Unavailable Encounter Details Date Type Department Care Team (Late st Contact Info) Description 11/11/2023 Patient Risk Score [facility] Care Management [address] [place] [id number] Social History Tobacco Use Types Packs/Day Years Used Date Smoking Tobacco: Never Smokeless Tobacco: Never Alcohol Use Standard Drinks/Week Comments Defer 0 (1 standard drink = 0.6 oz pur e alcohol) PHQ-2 Answer Date Recorded Patient Health Questionnaire-2 Score 0 07/22/2023 Comments No Sex and Gender Information Value Date Recorded Sex Assigned at Not on file Legal Sex Female 2:46 PM EST Gender Identity Not on file Sexual Orientation Not on file documented as of this encounter Plan of Treatment Not on file documented as of this encounter Visit Diagnoses Not on filedocumented in this encounter Additional Health Concerns Assessment Noted Time A fall risk assessment has been complete d for the patient 07/22/2023 2:38 PM EDT documented as of this encounter Care Teams Rapid Outsole Stitcher Relationship Specialty Start Date End Date Trever Lee MD [address] [facility], [address] [place] [address] Consulting Physician Neurology 02/19/23 documented as of this encounter
--- OUTSIDE RECORDS SUMMARY | 2024-08-09 14:19 | XMS_ITS | Encounter Summary ---
Author Organization [facility] Address [address] [place] [address] Care Team Providers Care Pathology Technician Name Role Phone KeenanJuaquin pittman Amira SORIA Primary Care Provider +1- [phone] Encounter Details Date Type Department Care Team (Late st Contact Info) Description 07/01/2024 Results Follow-Up [facility] [address] [facility] [place] [phone] Cathy Dick LPN [address] [facility] [place] [address] Social History Tobacco Use Types Packs/Day Years Used Date Smoking Tobacco: Never Assessed Estimated Date of Delivery Comme nts Yes 10/01/2024 Based on Ultraso und Sex and Gender Information Value Date Recorded Sex Assigned at Not on file Legal Sex Female 6:59 PM EDT Gender Identity Not on file Sexual Orientation Not on file documented as of this encounter Miscellaneous Notes * Result Encounter Note - Cathy Dick LPN - 07/01/2024 10:28 AM EDT Left detailed voicemail for pt and orders were sent documented in this encounter Plan of Treatment Upcoming Encounters Date Type Department Care Team (Late st Contact Info) Description 08/09/2024 3:00 PM EDT Ancillary Procedure [facility] [address] [place] [address] 08/17/2024 11:00 AM EDT Routine [facility] OB [address] [place] [address] [place] [address] Matt Stapleton, DO [address] [place] [address] [place] [address] 10/26/2024 4:00 PM EDT Office Visit [facility] OB [address] [place] [address] [place] [address] Matt Stapleton, DO [address] [facility] [place] [address] documented as of this encounter Goals Goal Patient Goal Type Associated Problems Recent Progress Patient-Stated? Author Reminders Care Plan OB Reminders No Open Scheduling, Background documented as of this encounter Visit Diagnoses Not on filedocumented in this encounter Additional Health Concerns Active Problems Noted Date Diagnosed Date OB Reminders 04/14/2024 documented as of this encounter Care Teams Pathology Technician Relationship Specialty Start Date End Date Juaquin Rae DO [address] [place] [address] PCP - General Family Medicine 07/15/22 documented as of this encounter
--- OUTSIDE RECORDS SUMMARY | 2024-08-09 14:19 | XMS_ITS | Encounter Summary ---
Author Organization [facility] Address [address] [place] [address] Phone Care Team Providers Care Label Fuser Tender Name Role Phone Trever Lee MD Unavailable Gina Man DO Unavailable Encounter Details Date Type Department Care Team (Late st Contact Info) Description 06/11/2023 Patient Risk Score [facility] Care Management [address] [place] [address] Social History Tobacco Use Types Packs/Day Years Used Date Smoking Tobacco: Never Smokeless Tobacco: Never Alcohol Use Standard Drinks/Week Comments Defer 0 (1 standard drink = 0.6 oz pur e alcohol) PHQ-2 Answer Date Recorded Patient Health Questionnaire-2 Score 0 04/27/2023 Comments No Sex and Gender Information Value [...] has been complete d for the patient 04/27/2023 3:41 PM EST documented as of this encounter Care Teams Label Fuser Tender Relationship Specialty [place] [address] [place] [address] PCP - MMO ACO PCP 03/09/23 10/07/23 Trever Lee MD [address] [facility], [address] [place], [place] [phone] Consulting Physician Neurology 02/19/23 documented as of this encounter
--- OUTSIDE RECORDS SUMMARY | 2024-08-09 14:19 | XMS_ITS | Encounter Summary ---
Author Organization [facility] Address [address] [place] [address] Care Team Providers Care Toll Line Repairer Name Role Phone Juaquin Rae DO Primary Care Provid er Source Comments In the event this information is protected by the Federal Confidentiality of Alcohol and Drug AbusePatient Records regulations: The Federal rules restrict any use of the information to criminally investigate or prosecute any alcohol or drug abuse patient.[facility] Encounter Details Date Type Department Care Team (Late st Contact Info) Description 08/13/2023 Patient Msg Dermatology [place] [address] [place] [address] Roula Hodge APRN.FEEDER SWITCHBOARD OPERATOR [address] [place] [address] Appointment Request Social History Tobacco [...] ot on file 03/28/2022 Data from: https://www.neighborhoodatlas.medicine.[facility].edu/. Last address used for calculation Felix Shepp[address] [...] on filedocumented in this encounter Care Teams Toll Line Repairer Relationship Specialty Start Date End Date Juaquin Rae DO [address] [facility] [address] [place] [id number] PCP - General Family Medicine 06/10/16 documented as of this encounter
--- OUTSIDE RECORDS SUMMARY | 2024-08-09 14:19 | XMS_ITS | Encounter Summary ---
Author Organization [facility] Address [address] [place] [address] Care Team Providers Care Case Monitor Name Role Phone Juaquin Rae Amira SORIA Primary Care Provider +1- [phone] Encounter Details Date Type Department Care Team (Late st Contact Info) Description 04/14/2024 Abstract [facility] OB [address] [place] [id number] Matt Stapleton [facility] [address] [place], [place] [address] Social History Tobacco Use Types Packs/Day Years [...] 08/09/2024 3:00 PM EDT Ancillary Procedure [facility] OB [facility] [place] [address] 08/17/2024 11:00 AM EDT Routine [facility] OB [address] [place] [address] Matt Stapleton DO [facility] [place] [address] 10/26/2024 4:00 PM EDT Office Visit [facility] [address] [facility] [place] [address] Matt Stapleton DO [address] [facility] [place] [address] documented as of this encounter Goals Goal Patient Goal Type Associated Problems Recent Progress Patient-Stated? Author Reminders Care Plan OB Reminders No Open Scheduling, Background documented as of this encounter Visit Diagnoses Not on filedocumented in this encounter Additional Health Concerns Active Problems Noted Date Diagnosed Date OB Reminders 04/14/2024 documented as of this encounter Care Teams Case Monitor Relationship Specialty Start Date End Date Juaquin Rae DO [address] [facility] [address] [place] [address] PCP - General Family Medicine 07/15/22 documented as of this encounter
--- OUTSIDE RECORDS SUMMARY | 2024-08-09 14:19 | XMS_ITS | Encounter Summary ---
Author Organization [facility] Address [address] [place] [address] Care Team Providers Care Tufting Supervisor Name Role Phone Juaquin Rae DO Primary Care Provid er Source Comments In the event this information is protected by the Federal Confidentiality of Alcohol and Drug AbusePatient Records regulations: The Federal rules restrict any use of the information to criminally investigate or prosecute any alcohol or drug abuse patient.[facility] Encounter Details Date Type Department Care Team (Late st Contact Info) Description 06/02/2020 Patient Msg Dermatology [place] [address] [place] [address] Roula Hodge, MAIL PROCESSING EQUIPMENT MECHANIC.MANAGER OF EXHIBITIONS AND COLLECTIONS [address] [place] [address] RE: Request an Appointment Social History Tobacco Use Types Packs/Day Years Used Date Smoking Tobacco: Never Alcohol Use Standard Drinks/Week Comments Yes 0 (1 standard drink = 0.6 oz pur e alcohol) occasional Area Deprivation Index Answer Date Renaldo rded National Score (1-100), lower number is lower ri Not on file 02/13/2020 State Score (1-10), lower number is lower risk N ot on file 02/13/2020 Data from: https://www.neighborhoodatlas.medicine.[facility].edu/. Last address used for calculation Not on file 02/13/2020 Comments No Sex and Gender Information Value Date Recorded Sex Assigned at Not on file Legal Sex Female 8:34 AM EST Gender Identity Not on file Sexual Orientation Not on file COVID-19 Exposure Response Date Recorded In the last month, have you been in contact with someone who was confirmed or suspected to have Coronavirus / COVID-19? No / Unsure 06/04/2020 7:29 AM EDT documented as of this encounter Plan of Treatment Not on file documented as of this encounter Visit Diagnoses Not on filedocumented in this encounter Care Teams Tufting Supervisor Relationship Specialty Start Date End Date Juaquin Rae DO [address] [place] [address] PCP - General Family Medicine 06/10/16 documented as of this encounter
--- OUTSIDE RECORDS SUMMARY | 2024-08-09 14:19 | XMS_ITS | Encounter Summary ---
Author Organization [facility] Address [address] [place] [address] Care Team Providers Care Design Engineer Products Name Role Phone Juaquin Rae DO Primary Care Provid er Source Comments In the event this information is protected by the Federal Confidentiality of Alcohol and Drug AbusePatient Records regulations: The Federal rules restrict any use of the information to criminally investigate or prosecute any alcohol or drug abuse patient.[facility] Encounter Details Date Type Department Care Team (Late st Contact Info) Description 02/21/2024 Patient Msg Dermatology [place] [address] [place] [address] Roula Hodge APRN.V BELT CURER [address] [place] [address] Appointment Request Social History Tobacco Use Types Packs/Day Years Used Date Smoking Tobacco: Never Alcohol Use Standard Drinks/Week Comments Yes 0 (1 standard drink = 0.6 oz pur e alcohol) occasional Area Deprivation Index Answer Date Renaldo rded National Score (1-100), lower number is lower ri sk 52 09/01/2023 State Score (1-10), lower number is lower risk 3 09/01/2023 Data from: https://www.neighborhoodatlas.medicine.[facility].edu/. Last address used for calculation Felix [address] [...] on filedocumented in this encounter Care Teams Design Engineer Products Relationship Specialty Start Date End Date Juaquin Rae DO [address] [place] [address] PCP - General Family Medicine 06/10/16 documented as of this encounter
--- OUTSIDE RECORDS SUMMARY | 2024-08-09 14:19 | XMS_ITS | Encounter Summary ---
Author Organization [facility] Address [address] [place] [address] Phone Care Team Providers Care Loader Helper Sorting Yard Name Role Phone Trever Lee MD Unavailable Gina Man DO Unavailable Encounter Details Date Type Department Care Team (Late st Contact Info) Description 02/20/2023 Scanned Document [facility] [address] [facility] [address] [place] [address] Trever Lee MD [address] [facility] [place], [facility] [address] [place] [address] Social History Tobacco Use Types Packs/Day Years Used Date Smoking Tobacco: Never Smokeless Tobacco: Never Alcohol Use Standard Drinks/Week Comments Defer 0 (1 standard drink = 0.6 oz pur e alcohol) PHQ-2 Answer Date Recorded Patient Health Questionnaire-2 Score 0 02/19/2023 Comments No Sex and Gender Information Value [...] has been complete d for the patient 02/19/2023 10:41 AM EST documented as of this encounter Care Teams Loader Helper Sorting Yard Relationship Specialty [place] [address] [facility] [address] [place], [place] [address] PCP - MMO ACO PCP 03/09/23 10/07/23 Trever Lee MD [address] [facility] [place], [address] [place] [address] Consulting Physician Neurology 02/19/23 documented as of this encounter
--- OUTSIDE RECORDS SUMMARY | 2024-08-09 14:19 | XMS_ITS | Encounter Summary ---
Author Organization [facility] Address [address] [place] [address] Care Team Providers Care Mirror Polisher Name Role Phone Juaquin Rae Primary Care Provider +1- [phone] Encounter Details Date Type Department Care Team (Late st Contact Info) Description 08/02/2024 Bamboo flowsheet [facility] OB [address] [place] [address] Matt Stapleton [facility] [address] [place], [facility]11 Social History Tobacco Use Types Packs/Day Years [...] 08/09/2024 3:00 PM EDT Ancillary Procedure [facility] OB [facility] [place] [address] 08/17/2024 11:00 AM EDT Routine [facility] [address] [place] [address] Matt Stapleton [facility] [address] [place], [facility] 10/26/2024 4:00 PM EDT Office Visit [facility] [address] [facility] [place] [address] Matt Stapleton DO [address] [facility] [place] [address] documented as of this encounter Goals Goal Patient Goal Type Associated Problems Recent Progress Patient-Stated? Author Reminders Care Plan OB Reminders No Open Scheduling, Background documented as of this encounter Visit Diagnoses Not on filedocumented in this encounter Additional Health Concerns Active Problems Noted Date Diagnosed Date OB Reminders 04/14/2024 documented as of this encounter Care Teams Mirror Polisher Relationship Specialty Start Date End Date Juaquin Rae DO [address] [facility] [address] [place] [address] PCP - General Family Medicine 07/15/22 documented as of this encounter
--- OUTSIDE RECORDS SUMMARY | 2024-08-09 14:19 | XMS_ITS | Encounter Summary ---
Author Organization [facility] Address [address] [place] [address] Phone Care Team Providers Care Photographic Artist Name Role Phone Trever Lee MD Unavailable Gina Man DO Unavailable Encounter Details Date Type Department Care Team (Late st Contact Info) Description 07/11/2023 Patient [facility] Care [facility] [address] [place] [address] Social History Tobacco Use Types [...] documented as of this encounter Care Teams Photographic Artist Relationship Specialty [place] [address] [place] [address] PCP - MMO ACO PCP 03/09/23 10/07/23 Trever Lee MD [address] [facility], [address] [place], [place] [phone] Consulting Physician Neurology 02/19/23 documented as of this encounter
--- OUTSIDE RECORDS SUMMARY | 2024-08-09 14:19 | XMS_ITS | Encounter Summary ---
Author Organization [facility] Address [address] [place] [address] Phone Care Team Providers Care Aoc Plans Intelligence Officer Chief Name Role Phone Trever Lee MD Unavailable Gina Man DO Unavailable Encounter Details Date Type Department Care Team (Late st Contact Info) Description 08/11/2023 Patient Risk Score [facility] Care Management [address] [place] [address] Social History Tobacco Use Types [...] Exposure Response Date Recorded In the last 10 days, have yo u been in contact with someone who was confirmed or suspected to have Coronavirus/COVID-19? No / Unsure 07/22/2023 2:23 PM EDT documented as of this encounter Plan of Treatment Not on file documented as of this encounter Visit Diagnoses Not on filedocumented in this encounter Additional Health Concerns Assessment Noted Time A fall risk assessment has been complete d for the patient 07/22/2023 2:38 PM EDT documented as of this encounter Care Teams Aoc Plans Intelligence Officer Chief Relationship Specialty [place] [address] [place] [address] PCP - MMO ACO PCP 03/09/23 10/07/23 Trever Lee MD [address] [facility], [address] [place] [address] Consulting Physician Neurology 02/19/23 documented as of this encounter
--- OUTSIDE RECORDS SUMMARY | 2024-08-09 14:19 | XMS_ITS | Encounter Summary ---
Author Organization [facility] Address [address] [place] [address] Phone Care Team Providers Care Enterprise Resource Analyst Name Role Phone Trever Lee MD Unavailable Gina Man DO Unavailable Encounter Details Date Type Department Care Team (Late st Contact Info) Description 11/09/2022 Patient Risk Score [facility] Care Management [address] [facility] [address] [place] [address] Social History Tobacco Use Types [...] on filedocumented in this encounter Care Teams Enterprise Resource Analyst Relationship Specialty [place] [address] [facility] [address] [place] [address] PCP - MMO ACO PCP 03/09/23 10/07/23 Trever Lee MD [address] [facility], [address] [place], [place] [phone] Consulting Physician Neurology 02/19/23 documented as of this encounter
--- OUTSIDE RECORDS SUMMARY | 2024-08-09 14:19 | XMS_ITS | Encounter Summary ---
Author Organization [facility] Address [address] [place] [address] Phone Care Team Providers Care Director Volunteer Services Name Role Phone Trever Lee MD Unavailable [phone] Encounter Details Date Type Department Care Team (Late st Contact Info) Description 10/11/2023 Patient Risk Score [facility] Care Management [address] [place] [address] Social History Tobacco Use Types Packs/Day Years [...] documented as of this encounter Care Teams Director Volunteer Services Relationship Specialty Start Date End Date Trever Lee MD [address] [facility], [address] [place] [address] Consulting Physician Neurology 02/19/23 documented as of this encounter
--- OUTSIDE RECORDS SUMMARY | 2024-08-09 14:19 | XMS_ITS | Encounter Summary ---
Author Organization [facility] Address [address] [place] [address] Phone Care Team Providers Care Quotation Clerk Name Role Phone Trever Lee MD Unavailable [phone] Gina Man DO Unavailable Encounter Details Date Type Department Care Team (Late st Contact Info) Description 02/20/2023 Scanned Document [facility] [address] [facility] [address] [place] [address] Trever Lee MD [address] [facility], [facility] [address] [place] [address] Social History Tobacco Use Types Packs/Day Years [...] documented as of this encounter Care Teams Quotation Clerk Relationship Specialty [place] [address] [facility] [address] [place], [place] [phone] PCP - MMO ACO PCP 03/09/23 10/07/23 Trever Lee MD [address] [facility], [address] [place] [address] Consulting Physician Neurology 02/19/23 documented as of this encounter
--- OUTSIDE RECORDS SUMMARY | 2024-08-09 14:19 | XMS_ITS | Encounter Summary ---
Author Organization [facility] Address [address] [place] [address] Care Team Providers Care Hat Trimmer Name Role Phone Juaquin Rae mAira SORIA Primary Care Provider [phone]- [phone] Encounter Details Date Type Department Care Team (Late st Contact Info) Description 06/06/2024 Abstract [facility] OB [address] [facility] [place] [address] Maria Victoria Zelaya LPN Social History Tobacco Use Types Packs/Day Years [...] 08/09/2024 3:00 PM EDT Ancillary Procedure [facility] OB [address] [place] [address] 08/17/2024 11:00 AM EDT Routine [facility] OB [address] [place] [address] Matt Stapleton DO [facility] [address] [place], [place] [address] 10/26/2024 4:00 PM EDT Office Visit [facility] [address] [facility] [place] [address] Matt Stapleton, DO [address] [facility] [place] [address] documented as of this encounter Goals Goal Patient Goal Type Associated Problems Recent Progress Patient-Stated? Author Reminders Care Plan OB Reminders No Open Scheduling, Background documented as of this encounter Visit Diagnoses Not on filedocumented in this encounter Additional Health Concerns Active Problems Noted Date Diagnosed Date OB Reminders 04/14/2024 documented as of this encounter Care Teams Hat Trimmer Relationship Specialty Start Date End Date Juaquin Rae DO [address] [facility] [address] [place] [address] PCP - General Family Medicine 07/15/22 documented as of this encounter
--- OUTSIDE RECORDS SUMMARY | 2024-08-09 14:19 | XMS_ITS | Clinical Summary ---
Author Organization [facility] Address [address] [place] [address] Care Team Providers Care Rnp Name Role Phone Juaquin Rae Amira SORIA Primary Care Provider [phone] Allergies Active Allergy Reactions Criticality Noted Date Comments Cat Dander Itching Low 11/28/2022 Latex Rash Low 08/28/2022 Loracarbef Unknown Low 08/28/2022 Other Reaction(s): Unknown Nsaids Other,Unknown,Itching Low 06/10/2016 Pt states adverse reaction of ulcers occurs advised not to take Other Reaction(s): Other Medications iron polysaccharides (ProFe) 391.3 (180 Fe) MG capsuleIndications :Low serum iron Take 1 capsule (391.3 mg) by mouth Daily 30 capsule 11 025 2025 Active promethazine (Phenergan) 12.5 MG tablet TAKE 1 TABLET (12.5 MG) BY MOUTH EVERY 6 HOURS IF NEEDED FOR NAUSEA OR VOMITING 025 Active Lancets Ultra Thin miscIndications:Ge stational diabetes mellitus (GDM), antepartum, gestational diabetes method of control unspecified,Elevat ed glucose tolerance test 1 each by In Vitro route Daily Use to check FSBS four times daily 150 each 3 025 2024 Active Alcohol Swabs (Alcohol Prep Pad) 70 % padsIndications:Ge stational diabetes mellitus (GDM), antepartum, gestational diabetes method of control unspecified,Elevat ed glucose tolerance test Apply 1 Pad topically Daily Use four times daily to check FSBS. 150 each 3 Active Glucose Blood (Blood Glucose Test) stripIndications:G estational diabetes mellitus (GDM), antepartum, gestational diabetes method of control unspecified,Elevat ed glucose tolerance test 1 strip by In Vitro route Daily Use in the morning prior to breakfast, 1 hour after each meal for a total of 4times daily. 150 strip 3 025 2024 Active Blood Glucose Monitoring Suppl (D-MyDocTime Glucometer) w/Device kitIndications:Ges tational diabetes mellitus (GDM), antepartum, gestational diabetes method of control unspecified,Elevat ed glucose tolerance test 1 kit Daily Use four times daily to check FSBS. In the morning prior to breakfast & 1 hour after each meal for a total of 4times daily. 1 kit 025 2025 Active insulin NPH-insulin regular (NovoLIN) (70-30) 100 UNIT/ML injectionIndicatio ns:Gestational Diabetes Inject 5 Units under the skin in the morning and 5 Units in the evening. Inject before meals. 3 mL 025 2024 Active insulin NPH, Isophane, (HumuLIN N,NovoLIN N) 100 UNIT/ML injectionIndicatio ns:Gestational Diabetes Inject 5 Units under the skin in the morning and 5 Units in the evening. Inject before meals. 3 mL 025 2024 Active insulin syringe 29G X 1/2 0.5 mL miscIndications:Ge stational diabetes mellitus (GDM), antepartum, gestational diabetes method of control unspecified Use as instructed 100 each 4 Active metoclopramide (Reglan) 10 MG tabletIndications: Nausea Take 1 tablet (10 mg) by mouth in the morning and 1 tablet (10 mg) at noon and 1 tablet (10 mg) in the evening. Take before meals. Take 1 tablet by mouth 30 minutes prior to meals 3 times daily as needed for nausea.. 90 tablet 3 025 2024 Discontinued Active Problems Problem Noted Date Diagnosed Date Chronic nasopharyngitis 08/28/2022 Reflux esophagitis 08/28/2022 Submandibular gland infection 08/28/2022 Estimated Date of Delivery Comme nts Yes 10/01/2024 Based on Ultraso und Encounters Date Type Department Care Team Description 08/06/2024 Clinisync Result Encounter [facility] External Department Unsolicited Neisha Stapleton, 08/02/2024 9:10 AM EDT Routine [facility] [address] [place] [phone] Neisha Stapleton, 31 weeks gestation of ; Third trimester ; Gestational diabetes mellitus (GDM), antepartum, gestational diabetes method of control unspecified 08/02/2024 Abstract [facility] [address] [place] [address] Neisha Stapleton, 08/02/2024 Abstract [facility] [address] [place] [address] Neisha Stapleton, DO 08/02/2024 Bamboo flowsheet [facility] [address] [place] [address] Neisha Stapleton, 07/12/2024 11:10 AM EDT Routine [facility] [address] [place] [address] Neisha Stapleton, Third trimester ; 28 weeks gestation of ; Multigravida of advanced maternal age in third trimester; Gestational diabetes mellitus (GDM), antepartum, gestational diabetes method of control unspecified; Elevated glucose tolerance test 07/12/2024 10:30 AM EDT Ancillary Procedure [facility] [address] [place] [address] Antepartum multigravida of advanced maternal age 0407/01/2024 Results Follow-Up [facility] [address] [place] [address] Cathy Dick LPN 07/01/[address] [facility] [address] [place] [address] Cathy Dikc LPN 06/30/2024 Clinisync Result Encounter [facility] External Department Unsolicited Neisha Stapleton DO 06/20/2024 9:40 AM EDT Routine [facility] [address] [place] [address] Neisha Stapleton DO Diabetes mellitus screening; 25 weeks gestation of ; Second trimester ; Antepartum multigravida of advanced maternal age 0406/20/2024 Bamboo flowsheet [facility] [address] [place] [address] Neisha Stapleton DO 06/06/2024 Abstract [facility] [address] [place] [address] Maria Victoria Zelaya LPN 06/02/[address] [facility] [address] [place] [phone] Neisha Stapleton, 05/23/2024 8:50 AM EDT Routine [facility] [address] [place] [address] Neisha Stapleton DO Second trimester ; 21 weeks gestation of 05/23/2024 8:00 AM EDT Ancillary Procedure [facility] [address] [place] [address] Screening, , for anatomic survey from Last 3 Months Social History Tobacco [...] (237 lb) 08/02/2024 9:22 AM EDT Height 165.1 cm (5' 5 ) 05/30/2021 12:00 PM EDT Body Mass Index 39.44 05/30/2021 12:00 PM EDT Plan of Treatment Upcoming Encounters Date Type Department Care Team (Late st Contact Info) Description 08/09/2024 3:00 PM EDT Ancillary Procedure [facility] [address] [place], [place] [address] [phone] 08/17/2024 11:00 AM EDT Routine [facility] [place] [address] Neisha Stapleton, DO [address] [place], [place] [id number] 10/26/2024 4:00 PM EDT Office Visit [facility] [address] [place], [place] [address] [address] Neisha Stapleton, DO [address] [place], [place] [id number] Health Maintenance Due Date Last Done Comments Influenza Vaccine (Season Ended) 2024 Cervical Cancer Screening 10/19/2028 HPV/Cotest 10/19/2028 10/17/2022, 08/27/2017 Pap Smear 10/19/2028 10/20/2023, 10/07, 03/25/2021 Goals Goal Patient Goal Type Associated Problems Recent Progress Patient-Stated? Author Reminders Care Plan OB Reminders No Open Scheduling, Background Procedures Procedure Name Priority Date/Time Associated Diagnosis Comments US OB BPP W NON-STRESS 08/06/2024 12:12 PM EDT POCT URINALYSIS DIPSTICK Routine 08/02/2024 9:27 AM EDT 31 weeks gestation of Third trimester POCT URINALYSIS DIPSTICK Routine 07/12/2024 11:33 AM EDT Third trimester US OB FOLLOW UP TRANSABDOMINAL APPROACH Routine 07/12/2024 10:42 AM EDT Antepartum multigravida of advanced maternal age GLUCOSE 1 HOUR Routine 06/30/2024 10:26 AM EDT ALL CBC WITH AUTO DIFF Routine 10:26 AM EDT POCT URINALYSIS DIPSTICK Routine 06/20/2024 10:30 AM EDT 25 weeks gestation of POCT URINALYSIS DIPSTICK Routine 05/23/2024 9:16 AM EDT Second trimester US OB 14+ WEEKS ANATOMY SCAN Routine 05/23/2024 8:56 AM EDT Screening, , for anatomic survey PAP SMEAR Routine 10/20/2023 12:00 AM EDT THINPREP PAP AND HPV MRNA E6/E7 W/RFL HPV 16,18/45 Routine 10/17/2022 8:40 AM EDT Well woman exam with routine gynecological exam from Last 3 Months or Most Recently Relevant to Health Maintenance Results * US OB BPP W NON-STRESS (08/06/2024 12:12 PM EDT) Anatomical Region Laterality Modality Other 08/06/2024 12:1 2 PM EDT Narrative 08/06/2024 12:14 [place] [address] Ultrasound Report Signed Patient: MICHAEL WELLER MR#: [id number] : 1985 Acct:[id number] Age/Sex: 38 / F ADM Date: 08/05/24 Loc: US Attending Dr: Neisha Stapleton D.O. Ordering Physician: Neisha Stapleton D.O. Date of Service: 08/05/24 Procedure(s): US OB BPP w non-stress Accession Number(s): [id number] cc: Neisha Stapleton D.O.; Physician,Non-Staff M.DJonathan The [address] [address] Patient Name: MICHAEL WELLER MRN: [id number] date: 1985 Sex: F Assigned Patient Location: US Current Patient Location: Accession/Order Number: [id number] Exam Date: 08/06/2024 12:11 Report Date: 08/06/2024 [...] Villegas M.D. 08/06/2024 12:12 PM Dictation Location: [facility] Electron[facility] authenticated by: [id number] Y Date: 08/06/2024 12:12 Dictated By: Roddy Villegas D.O. Signed By: 08/06/24 1214 DD/ 1212 TD/TT: Pond Scaler: Procedure Note Radiology, Radiologist, MD - 08/06/2024 [place] [address] Ultrasound Report Signed Patient: MICHAEL WELLER RMR#: [id number] : 1985Acct:[id number] Age/Sex: 38 / FADM Date: 08/05/24 Loc: US Attending Dr: Neisha Stapleton D.O. Ordering Physician: Neisha Stapleton D.O. Date of Service: 08/05/24 Procedure(s): US OB BPP w non-stress Accession Number(s): [id number] cc: Neisha Stapleton D.O.; Physician,Non-Staff Ramiro The [place] [id number] Patient Name: MICHAEL WELLER MRN: [id number] date: 1985 Sex: F Assigned Patient Location: US Current Patient Location: Accession/Order Number: [id number] Exam Date: 08/06/2024 12:11 Report Date: 08/06/2024 [...] Villegas M.D. 08/06/2024 12:12 PM Dictation Location: [employer] Electronically authenticated by: [id number] Y Date: 2:12 Dictated By: Roddy Villegas D.O. Signed By:08/06/24 1214 DD/ 121 TD/TT: Pond Scaler: Neisha Stapleton DO [facility] IMAG[facility] Final Result * (ABNORMAL) POCT urinalysis dipstick manually resulted (08/02/2024 9:27 AM EDT) Only the most recent of4 resultswithin the time period is included. Color, UA Straw Clarity, UA Cloudy Glucose, [...] - Positive Urine 08/02/2024 9:27 AM EDT Neisha Stapleton DO POINT OF CARE TEST ENTER/EDIT OR DERABLES Final Result * US OB follow up transabdominal approach (07/12/2024 10:42 AM EDT) Anatomical Region Laterality Modality Body Ultrasound 07/13/2024 8:44 AM EDT Narrative 07/13/2024 8:44 AM EDT EXAM: US OB FOLLOW UP TRANSABDOMINAL APPROACH HISTORY: AMA. AMALIA 10/01/2024. A2. COMPARISON: U/S Ob 05/23/2024, 03/31/2024 TECHNIQUE: Two-dimensional transabdominal grayscale ultrasound imaging of the pelvis was performed. FINDINGS: Gestation: Single Presentation: Cephalic Cardiac Activity: 158 beats per minute Placental Location: Posterior with no sonographic abnormalities identified. Distance from Placental Tip to Cervix: Not visualized Cervical Length: Obscured by overlying fetus Amniotic Fluid Index: 19.4 cm; MVP 6.4 cm MEASUREMENTS: BPD: 8.2 cm EGA: 32 weeks 5 days HC: 28.4 cm EGA: 31 weeks 1 days AC: 26.5 cm EGA: 30 weeks 4 days FL: 5.5 cm EGA: 29 weeks 0 days HC/AC Ratio: 1.07 (0.96-1.17) Gestational age by today's ultrasound is 30 weeks 6 days (+/- 14 days gestation). Estimated Weight: 1542 grams, +/- 231 grams ( 3 lb 6 oz). Weight Percentile for gestational age: 95% IMPRESSION: 1. Single, live intrauterine gestation 28 weeks, 3 days by LMP. Today's ultrasound measurements correlate with a gestational age of 30 weeks 6 days. Fetus is in the 95th percentile for weight. Interpreted by: Electronically signed by BELA HILLS II, MD, PHD at 13-Jul-2024 08:42:46 AM [facility] Procedure Note Bela Hills MD - 07/13/2024 EXAM: US OB FOLLOW UP TRANSABDOMINAL APPROACH HISTORY: AMA. AMALIA 10/01/2024. A2. COMPARISON: U/S Ob 05/23/2024, 03/31/2024 TECHNIQUE: Two-dimensional transabdominal grayscale ultrasound imaging ofthe pelvis was performed. FINDINGS: Gestation: Single Presentation: Cephalic Cardiac Activity: 158 beats per minute Placental Location: Posterior with no sonographic abnormalitiesidentified. Distance from Placental Tip to Cervix: Not visualized Cervical Length: Obscured by overlying fetus Amniotic Fluid Index: 19.4 cm; MVP 6.4 cm MEASUREMENTS: BPD: 8.2 cm EGA: 32 weeks 5 days HC: 28.4 cm EGA: 31 weeks 1 days AC: 26.5 cm EGA: 30 weeks 4 days FL: 5.5 cm EGA: 29 weeks 0 days HC/AC Ratio: 1.07 (0.96-1.17) Gestational age by today's ultrasound is 30 weeks 6 days (+/- 14 daysgestation). Estimated Weight: 1542 grams, +/- 231 grams ( 3 lb 6 oz). Weight Percentile for gestational age: 95% IMPRESSION: 1. Single, live intrauterine gestation 28 weeks, 3 days by LMP. Today'sultrasound measurements correlate with a gestational age of 30 weeks 6days. Fetus is in the 95th percentile for weight. Interpreted by: Electronically signed by BELA HILLS II, MD, PHD [id number] 08:42:46 AM [facility] us Pham Fragoso COMMUNICATIONS TECH IMG OB US PROCEDURES Final Re sult * (ABNORMAL) GLUCOSE 1 HOUR (06/30/2024 10:26 AM EDT) Pathologist [facility] GLUCOSE 1 HOUR 160(H) <130 mg/dL [facility] 06/30/2024 10:2 6 AM EDT 06/30/2024 10:30 AM EDT Narrative [facility] - 06/30/2024 11:03 AM EDT us Neisha Daya DO LAB BLOOD ORDERABLES Final Resul t [facility] * (ABNORMAL) ALL CBC WITH AUTO DIFF (06/30/2024 10:26 AM EDT) TB WBC 9.2 4.0 - 11.0 10 3/uL TBH TBH RBC 3.71(L) 4.20 - 5.40 10 6/uL TBH TBH HGB 10.3(L) 12.0 - 16.0 g/dL TBH TBH HCT 32.1(L) 36.0 - 48.0 % TBH TBH MCV 86.5 81.0 - 99.0 fL TBH TBH MCH 27.8 26.7 - 34.0 pg TBH TBH MCHC 32.1 29.9 - 35.2 g/dL TBH TBH RDW 14.1 11.0 - 15.0 % TBH TBH PLT 152 150 - 450 10 3/uL TBH TBH MPV 12.2 9.5 - 13.5 fL TBH NEUTROPHILS PERCENT AUTO 76.8(H) 43.0 - 75.0 % TBH LYMPHOCYTES PERCENT AUTO 16.1(L) 20.5 - 60.0 % TBH MONOCYTES PERCENT AUTO 6.2 1.7 - 12.0 % TBH TBH EO % 0.0(L) 0.9 - 7.0 % TBH BASOPHILS PERCENT AUTO 0.2 0.2 - 2.0 % TBH IMMATURE GRANULOCYTES PCT AUTO 0.7(H) 0.0 - 0.5 % TBH NEUTROPHILS ABSOLUTE AUTO 7.1(H) 1.4 - 6.5 10 3/uL TBH LYMPHOCYTES ABSOLUTE AUTO 1.5 1.2 - 3.8 10 3/uL TBH MONOCYTES ABSOLUTE AUTO 0.6 0.3 - 0.8 10 3/uL TBH TBH EO # 0.0 0.0 - 0.7 10 3/uL TBH BASOPHILS ABSOLUTE AUTO 0.0 0.0 - 0.1 10 3/uL TBH IMMATURE GRANULOCYTES ABS AUTO 0.06(H) 0.00 - 0.03 10 3/uL TBH 06/30/2024 10:2 6 AM EDT 06/30/2024 10:30 AM EDT Narrative [facility] - 06/30/2024 10:36 AM EDT us Neisha Daya DO [facility] Final Result [facility] TB * US OB 14+ weeks anatomy scan (05/23/2024 8:56 AM EDT) Anatomical Region Laterality Modality Body Ultrasound 05/24/2024 12:3 4 AM EDT Narrative 05/24/2024 12:34 AM EDT EXAM: US OB 14+ WEEKS ANATOMY SCAN HISTORY: anatomy. COMPARISON: None available. TECHNIQUE: Two-dimensional transabdominal grayscale ultrasound imaging of the pelvis was performed. FINDINGS: Gestation: Single Presentation: Transverse Cardiac Activity: 151 beats per minute Placental Location: Posterior with no sonographic abnormalities identified. Distance from Placental Tip to Cervix: 3.2 cm Cervical Length: 5.1 cm Amniotic Fluid: Appears adequate MEASUREMENTS: BPD: 5.4 cm EGA: 22 weeks 2 days HC: 19.8 cm EGA: 22 weeks 0 days AC: 18.0 cm EGA: 22 weeks 6 days FL: 3.7 cm EGA: 21 weeks 6 days HC/AC Ratio: 1.10 The gestational age by today's ultrasound is 22 weeks 2 days (+/- 11 days gestation). Estimated Weight: 498 grams, +/- 75 grams ( 1 lb 2 oz). Weight Percentile for gestational age: 93 % ANATOMY C-Spine: Unremarkable T-Spine: Unremarkable L-Spine: Unremarkable Sacrum: Unremarkable Four Chamber Heart: Unremarkable LVOT: Unremarkable RVOT: Unremarkable Stomach: Unremarkable Kidneys: Unremarkable Bladder: Unremarkable Diaphragm: Unremarkable Cord insertion: Unremarkable Cord vessels: Three Lateral Ventricles: Unremarkable Cerebellum: Unremarkable Cisterna Magna: Unremarkable Posterior Fossa: Unremarkable Right Femur: Unremarkable Left Femur: Unremarkable Right Tib/Fib: Unremarkable Left Tib/Fib: Unremarkable Right Rad/Ulnar: Unremarkable Left Rad/Ulnar: Unremarkable Right Humerus: Unremarkable Left Humerus: Unremarkable Nose/Lips: Unremarkable Profile: Unremarkable Orbits: Unremarkable IMPRESSION: 1. Single, live intrauterine gestation 21 weeks, 2 days by LMP. Today's ultrasound measurements correlate with a gestational age of 22 weeks 2 days. Estimated weight is 498 grams, +/- 75 grams ( 1 lb 2 oz) which correlates to 93 %. AMALIA is 09/24/2024. 2. growth is large for gestational age. 3. Unremarkable ultrasound of the anatomy. Electronically Signed:Electronically signed by BELA HILLS II, MD, PHD at 24-May-2024 12:33:10 AM [facility] Procedure Note Bela Hills MD - 05/24/2024 EXAM: US OB 14+ WEEKS ANATOMY SCAN HISTORY: anatomy. COMPARISON: None available. TECHNIQUE: Two-dimensional transabdominal grayscale ultrasound imaging ofthe pelvis was performed. FINDINGS: Gestation: Single Presentation: Transverse Cardiac Activity: 151 beats per minute Placental Location: Posterior with no sonographic abnormalitiesidentified. Distance from Placental Tip to Cervix: 3.2 cm Cervical Length: 5.1 cm Amniotic Fluid: Appears adequate MEASUREMENTS: BPD: 5.4 cm EGA: 22 weeks 2 days HC: 19.8 cm EGA: 22 weeks 0 days AC: 18.0 cm EGA: 22 weeks 6 days FL: 3.7 cm EGA: 21 weeks 6 days HC/AC Ratio: 1.10 The gestational age by today's ultrasound is 22 weeks 2 days (+/- 11 daysgestation). Estimated Weight: 498 grams, +/- 75 grams ( 1 lb 2 oz). Weight Percentile for gestational age: 93 % ANATOMY C-Spine: Unremarkable T-Spine: Unremarkable L-Spine: Unremarkable Sacrum: Unremarkable Four Chamber Heart: Unremarkable LVOT: Unremarkable RVOT: Unremarkable Stomach: Unremarkable Kidneys: Unremarkable Bladder: Unremarkable Diaphragm: Unremarkable Cord insertion: Unremarkable Cord vessels: Three Lateral Ventricles: Unremarkable Cerebellum: Unremarkable Cisterna Magna: Unremarkable Posterior Fossa: Unremarkable Right Femur: Unremarkable Left Femur: Unremarkable Right Tib/Fib: Unremarkable Left Tib/Fib: Unremarkable Right Rad/Ulnar: Unremarkable Left Rad/Ulnar: Unremarkable Right Humerus: Unremarkable Left Humerus: Unremarkable Nose/Lips: Unremarkable Profile: Unremarkable Orbits: Unremarkable IMPRESSION: 1. Single, live intrauterine gestation 21 weeks, 2 days by LMP. Today'sultrasound measurements correlate with a gestational age of 22 weeks 2days. Estimated weight is 498 grams, +/- 75 grams ( 1 lb 2 oz) whichcorrelates to 93 %. AMALIA is 09/24/2024. 2. growth is large for gestational age. 3. Unremarkable ultrasound of the anatomy. Electronically Signed:Electronically signed by BELA HILLS II, MD, PHDat 24-May-2024 12:33:10 AM [facility] us Merary MCBRIDE IMG OB US PROCEDURES Final Resul t * Pap Smear (10/20/2023 12:00 AM EDT) Swab Cervical swab / Unknown us Neisha Stapleton DO LAB CYTOLOGY ORDERABLES Final Re sult EXTERNAL LAB * THINPREP PAP AND HPV MRNA E6/E7 W/RFL HPV 16,18/45 (10/17/2022 8:40 AM EDT) us Merary Wilcox PA LAB BLOOD ORDERABLES Final Resul t EXTERNAL LAB from Last 3 Months or Most Recently Relevant to Health Maintenance Additional Health Concerns Active Problems Noted Date Diagnosed Date OB Reminders 04/14/[address] [place] [address] [employer] Care Teams Rnp Relationship Specialty Start Date End Date Juaquin Rae DO [address] [place] [address] PCP - General Family Medicine 07/15/22
--- OUTSIDE RECORDS SUMMARY | 2024-08-09 14:19 | XMS_ITS | Encounter Summary ---
Author Organization [facility] Address [address] [place] [address] Phone Care Team Providers Care Package Dyeing Machine Operator Name Role Phone Rafaela Garrido APRN-WARP SCOURING VAT TENDER Primary Care Provider Unavailable Trever Lee MD Unavailable [phone] Gina Man DO Unavailable Encounter Details Date Type Department Care Team (Late st Contact Info) Description 10/09/2022 Patient Risk Score [facility] Care Management [address] [facility] [address] [place] [phone] Social History Tobacco Use Types Packs/Day Years [...] on filedocumented in this encounter Care Teams Package Dyeing Machine Operator Relationship Specialty Start Date End Date Rafaela Garrido APRN-CNP PCP - General 07/06/18 10/28/22 [place] [address] [facility] [address] [place] [address] PCP - MMO ACO PCP 03/09/23 10/07/23 Trever Lee MD [address] [facility], [address] [place] [address] Consulting Physician Neurology 02/19/23 documented as of this encounter
--- OUTSIDE RECORDS SUMMARY | 2024-08-09 14:19 | XMS_ITS | Encounter Summary ---
Author Organization [facility] Address [address] [place] [address] Phone Care Team Providers Care Inspector Semiconductor Wafer Name Role Phone Rafaela Garrido APRN-HAIR DRESSER Primary Care Provider Unavailable Trever Lee MD Unavailable Gina Man DO Unavailable Encounter Details Date Type Department Care Team (Late st Contact Info) Description 10/16/2022 Scanned Document [facility] LEGACY [address] [place] [address] Conversion, Onbase Social History Tobacco Use Types [...] on filedocumented in this encounter Care Teams Inspector Semiconductor Wafer Relationship Specialty Start Date End Date Rafaela Garrido APRN-CNP PCP - General 07/06/18 10/28/22 [place] [address] [facility] [address] [place] [address] PCP - MMO ACO PCP 03/09/23 10/07/23 Trever Lee MD [address] [facility], [address] [place] [address] Consulting Physician Neurology 02/19/23 documented as of this encounter
--- OUTSIDE RECORDS SUMMARY | 2024-08-09 14:19 | XMS_ITS | Encounter Summary ---
Author Organization [facility] Address [address] [place] [address] Care Team Providers Care Garment Manufacturing Supervisor Name Role Phone Juaquin Rae Amira SORIA Primary Care Provider [phone] Encounter Details Date Type Department Care Team (Late st Contact Info) Description 08/02/2024 Abstract [facility] [address] [place] [phone] Matt Stapleton [facility] [address] [place], [place] [address] Social History Tobacco Use Types Packs/Day Years [...] 08/09/2024 3:00 PM EDT Ancillary Procedure [facility] [place] [address] 08/17/2024 11:00 AM EDT Routine [facility] [address] [place] [address] Matt Stapleton [place] [place] [address] 10/26/2024 4:00 PM EDT Office Visit [facility] OB [address] [facility] [place] [address] Matt Stapleton DO [address] [facility] [place] [address] documented as of this encounter Goals Goal Patient Goal Type Associated Problems Recent Progress Patient-Stated? Author Reminders Care Plan OB Reminders No Open Scheduling, Background documented as of this encounter Visit Diagnoses Not on filedocumented in this encounter Additional Health Concerns Active Problems Noted Date Diagnosed Date OB Reminders 04/14/2024 documented as of this encounter Care Teams Garment Manufacturing Supervisor Relationship Specialty Start Date End Date Juaquin Rae DO [address] [facility] [address] [place] [address] PCP - General Family Medicine 07/15/22 documented as of this encounter
--- OUTSIDE RECORDS SUMMARY | 2024-08-09 14:19 | XMS_ITS | Encounter Summary ---
Author Organization [facility] Address [address] [place] [address] Phone Care Team Providers Care Records And Information Manager Name Role Phone Rafaela Garrido Primary Care Provider Unavailable Rafaela Garrido Unavailable Unava ilable Trever Lee MD Unavailable [phone] Gina Man DO Unavailable Encounter Details Date Type Department Care Team (Late st Contact Info) Description 09/08/2022 Patient Risk Score ACO Care Management [address] [facility] [address] [place] [id number] Social History Tobacco Use Types Packs/Day Years [...] on filedocumented in this encounter Care Teams Records And Information Manager Relationship Specialty Start Date End Date Rafaela Garrido APRN-CNP PCP - General 07/06/18 10/28/22 Rafaela Garrido APRN-CNP Office Address Unavailable as of 08/07/2022 PCP - MMO ACO PCP 03/09/21 10/06/22 [place] [address] [place] [address] PCP - MMO ACO PCP 03/09/23 10/07/23 Trever Lee MD [address] [facility], [address] [place] [address] Consulting Physician Neurology 02/19/23 documented as of this encounter
--- OUTSIDE RECORDS SUMMARY | 2024-08-09 14:19 | XMS_ITS | Encounter Summary ---
Author Organization [facility] Address [address] [place] [address] Care Team Providers Care Clinical Appeals Auditor Name Role Phone Juaquin Rae DO Primary Care Provid er Source Comments In the event this information is protected by the Federal Confidentiality of Alcohol and Drug AbusePatient Records regulations: The Federal rules restrict any use of the information to criminally investigate or prosecute any alcohol or drug abuse patient.[facility] Encounter Details Date Type Department Care Team (Late st Contact Info) Description 09/02/2021 Patient Msg Dermatology [place] [address] [place] [address] Roula Hodge APRN.RECOVERY RN [address] [place] [address] Appointment Request Social History Tobacco Use Types Packs/Day Years Used Date Smoking Tobacco: Never Alcohol Use Standard Drinks/Week Comments Yes 0 (1 standard drink = 0.6 oz pur e alcohol) occasional Area Deprivation Index Answer Date Renaldo rded National Score (1-100), lower number is lower ri sk Not on file 02/13/2020 State Score (1-10), lower number is lower risk N ot on file 02/13/2020 Data from: https://www.neighborhoodatlas.medicine.[facility].edu/. Last address used for calculation Not [...] on filedocumented in this encounter Care Teams Clinical Appeals Auditor Relationship Specialty Start Date End Date Juaquin Rae DO [address] [place] [address] PCP - General Family Medicine 06/10/16 documented as of this encounter
--- OUTSIDE RECORDS SUMMARY | 2024-08-09 14:19 | XMS_ITS | Encounter Summary ---
Author Organization [facility] Address [address] [place] [address] Phone Care Team Providers Care Batch Mixer Operator Name Role Phone Trever Lee MD Unavailable Gina Man DO Unavailable Encounter Details Date Type Department Care Team (Late st Contact Info) Description 09/10/[address] [facility] [address] [place] [address] Social History Tobacco Use Types [...] documented as of this encounter Care Teams Batch Mixer Operator Relationship Specialty [place] [address] [place] [address] PCP - MMO ACO PCP 03/09/23 10/07/23 Trever Lee MD [address] [facility], [address] [place], [place] [id number] Consulting Physician Neurology 02/19/23 documented as of this encounter
--- OUTSIDE RECORDS SUMMARY | 2024-08-09 14:19 | XMS_ITS | Encounter Summary ---
Author Organization [facility] Address [address] [place] [address] Care Team Providers Care Spd Manager Name Role Phone Juaquin Rae Amira SORIA Primary Care Provider [phone] Encounter Details Date Type Department Care Team (Late st Contact Info) Description 08/02/2024 Abstract [facility] [address] [place] [id number] Matt Stapleton [facility] [address] [place], [place] [address] Social History Tobacco Use Types Packs/Day Years [...] 08/09/2024 3:00 PM EDT Ancillary Procedure [facility] OB [facility] [place] [address] 08/17/2024 11:00 AM EDT Routine [facility] [address] [place] [address] Matt Stapleton DO [facility] [place] [address] 10/26/2024 4:00 PM EDT Office Visit [facility] OB [address] [facility] [place] [address] Matt Stapleton DO [address] [place] [address] documented as of this encounter Goals Goal Patient Goal Type Associated Problems Recent Progress Patient-Stated? Author Reminders Care Plan OB Reminders No Open Scheduling, Background documented as of this encounter Visit Diagnoses Not on filedocumented in this encounter Additional Health Concerns Active Problems Noted Date Diagnosed Date OB Reminders 04/14/2024 documented as of this encounter Care Teams Spd Manager Relationship Specialty Start Date End Date Juaquin Rae DO [address] [facility] [address] [place] [address] PCP - General Family Medicine 07/15/22 documented as of this encounter
== END 2024-08-09 14:44 ==
LOC: FBCO 14:13 → FBC 14:15
PROVIDERS: Visit Provider Obstetrics & Gynecology
DX: O24.419 Gestational diabetes mellitus in pregnancy, unspecified control (principal); Z3A.32 32 weeks gestation of pregnancy
CPT/HCPCS: 59025

== ENCOUNTER 2024-08-12 15:34 | Outpatient (OUT) | payer OTHER, SELFPAY ==
[2024-08-12 15:47] LABS: Basophils Percent Auto 0.2 % (0.2-2.0); Eosinophils Percent Auto 0.1 % (0.9-7.0); Hematocrit 32.6 % (36.0-48.0); Hemoglobin 10.6 g/dL (12.0-16.0); Immature Granulocytes Abs Auto 0.07 10^3/uL (0.00-0.03); Immature Granulocytes Pct Auto 0.8 % (0.0-0.5); Lymphocytes Absolute Auto 1.4 10^3/uL (1.2-3.8); Lymphocytes Percent Auto 16.3 % (20.5-60.0); Mean Corpuscular HGB Conc 32.5 g/dL (29.9-35.2); Mean Corpuscular Hemoglobin 27.1 pg (26.7-34.0); Mean Corpuscular Volume 83.4 fL (81.0-99.0); Mean Platelet Volume 12.1 fL (9.5-13.5); Monocytes Absolute Auto 0.7 10^3/uL (0.3-0.8); Monocytes Percent Auto 7.9 % (1.7-12.0); Neutrophils Absolute Auto 6.3 10^3/uL (1.4-6.5); Neutrophils Percent Auto 74.7 % (43.0-75.0); Platelet Count 148 10^3/uL (150-450); Red Blood Count 3.91 10^6/uL (4.20-5.40); Red Cell Distribution Width 14.9 % (11.0-15.0); White Blood Count 8.5 10^3/uL (4.0-11.0)
--- NOTE | 2024-08-12 15:52 | US_ITS ---
[place] [id number] Patient Name: MICHAEL ROQUE MRN: [id number] date: 1985 Sex: F Assigned Patient Location: [facility] Current Patient Location: [facility] Accession/Order Number: [id number] Exam Date: 08/12/2024 16:37 Report Date: 08/12/2024 16:38 At the request of: NEISHA PETERSON DO Procedure: US OB BPP w non-stress Ultrasound biophysical profile HISTORY: Gestational diabetes Adequate breathing movement, gross body movement, tone and amniotic fluid volume for total score of 8 out of 8. The amniotic fluid index is 11.3 cm within normal limits. The heart rate 152 bpm. US/US OB BPP w non-stress IMPRESSION: Adequate ultrasound biophysical profile Impression dictated by: Roddy Villegas M.D. 08/12/2024 4:38 PM Dictation Location: [place] [address] Electronically authenticated by: [id number] Y Date: 08/12/2024 16:38
[2024-08-12 16:06] LABS: Partial Thromboplastin Time 27.1 sec (22.3-36.2); Prothrombin Time 9.8 sec (9.0-11.6)
[2024-08-12 16:20] LABS: INR <0.93
[2024-08-12 16:21] LABS: Aspartate Amino Transferase 13 U/L (15-37); Estimated GFR (African America >60 (>=60 mL/min/1.73m^2); Estimated GFR (Non-African Ame >60 (>=60 mL/min/1.73m^2); Lactate Dehydrogenase 131 U/L (81-234); Uric Acid 2.8 mg/dL (2.6-6.0)
[2024-08-12 16:30] VITALS: BP 140/77; PULSE 104
== END 2024-08-12 16:59 | disposition home or self-care (01) ==
LOC: US 15:34 → FBC 15:47
PROVIDERS: Visit Provider Obstetrics & Gynecology
DX: Z34.93 Encounter for supervision of normal pregnancy, unspecified, third trimester (principal); H53.9 Unspecified visual disturbance; M79.89 Other specified soft tissue disorders
CPT/HCPCS: 36415; 76818; 82565; 83615; 84450; 84520; 84550; 85025; 85610; 85730

== ENCOUNTER 2024-08-14 13:00 | Outpatient (REF) | payer OTHER, SELFPAY ==
--- OUTSIDE RECORDS SUMMARY | 2024-08-14 13:03 | XMS_ITS | CCD ---
Author Organization [facility] Care Team Providers Care Sole Tier Name Role Phone Rafaela Arguello [place] [id number], [facility] Unavailable Unavailable Rafaela Arguello Unavailable Unavailable [...] DAYA, DR DRIVER Attending Unavailable DAYA, DR DRIEVR Consulting Unavailable REQUEST, DR NONE LISTED Primary [...] Care Provider DO Kp Alvares Attending Provider [phone] Hema, Ms. Rafaela Schultz Referring Aisha [...] Provider Karolina Man DO Primary Care Provider [phone] Jhonny Issa MD Unavailable [phone] Donovan SORIA, Karolina Cota Unavailable KAROLINA MAN [...] Azael kaye Andersen, LAYNE Avila Attending Provider KAROLINA MAN Referring Unavailable KAROLINA MAN Primary Care Unavailable KAROLINA MAN Referring Unavailable KAROLINA MAN Primary Care Unavailable MARYANN DAVISON Attending Unava ilDanielle Villalobos DO Primary Care Provider Matt Stapleton Attending Unavailable Matt Stapleton Admitting Unavailable NO FAMILY, PHYSICIAN Primary Care Unavailable Swetha Andersen Attending Unavailable Swetha Andersen Admitting Unavailable Daya DO, Matt Attending Provider Unavailable Primary Care Provider UnavailIGNACIA Quiñones Attending Unavailable DAYA, MATT R Referring Unavailable NAKULMERARY GARNETT Attending Unavailable NAKULMERARY GARNETT Referring Unavailable DAYA, MATT Attending Unavailable DAYA, MATT Attending Unavailable BENTLEY FUCHS Referring Unavailable DAYA, MATT Attending Unavailable DAYA, MATT Attending Unavailable DAYA, MATT Referring Unavailable DAYA, MATT Attending Unavailable DAYA, MATT Attending Unavailable Allergies Allergy Classification Reported Allergen(s) Allergy Type Date of Onset Reaction(s) Facility Cephalosporins (antibiotic) (1 source) loracarbef Drug Allergy [facility] Work Phone: Latex (1 source) natural latex rubber Substance Allergy [facility] Work Phone: NSAIDs (1 source) NSAIDs Drug Allergy [facility] Work Phone: (20 sources) loracarbef; Translations: [loracarbef] Drug Allergy 08-29-19 23 Unknown [id number] Work Phone: (20 sources) natural latex rubber; Translations: [LATEX] Allergy to substance (finding) 08-29-19 [facility] 3 Repository (20 sources) NSAIDs; Translations: [NSAIDs] Allergy to drug (finding) Unknown [id number] Work Phone: (20 sources) Animal dander - Cats Allergy to substance (finding) [id number] Work Phone: (2 sources) Latex Drug allergy (disorder) [facility] Repository (1 source) loracarbef Drug Allergy [facility] Repository (7 sources) NSAIDs; Translations: [NSAIDS (NON-STEROIDAL ANTI-INFLAMMATOR Y DRUG)] Drug allergy (disorder) 06-11-19 17 [facility] Repository (7 sources) Non-steroidal anti-inflammator y agent Propensity to adverse reactions to drug 06-11-19 Other: See Comments, Other [facility] (9 sources) Latex Propensity to adverse reactions 08-29-19 Unknown, Rash [facility] Other (20 sources) Cat Dander; Translations: [CAT DANDER] Allergy to substance 11-29-19 Unknown, Itching [facility] (4 sources) NSAIDS (Non-Steroidal Anti-Inflamma; Translations: [NSAIDS (Non-Steroidal Anti-Inflamma] Allergy to substance 09-05-19 Itching [facility] (3 sources) CAT HAIR STANDARDIZED ALLERGENIC EXTRACT; Translations: [CAT HAIR STANDARDIZED ALLERGENIC EXTRACT] Propensity to adverse reactions to drug (disorder) 11-29-19 Itching [facility] 2 Repository (20 sources) Latex Allergy to substance 08-29-19 Rash [facility] (20 sources) Non-steroidal anti-inflammator y agent Drug Allergy 06-11-19 Other, [facility] Hair Extract Allergy to substance [facility] Latex Drug allergy (disorder) 09-05-19 [facility] Repository Medications Current Medications Medication Drug Class(es) Dates Sig (Normalized) Sig (Original) Blood Glucose Monitoring Suppl ([facility]-Care Glucometer) w/Device kit (8 sources) Start: 07-12-2024 End: 07-12-2025 Blood Glucose Monitoring Suppl ([facility]-Care Glucometer) w/Device kit Indications: Gestational diabetes mellitus (GDM), antepartum, gestational diabetes method of control unspecified , Elevated glucose tolerance test 1 kit Daily Use four times daily to check FSBS. In the morning prior to breakfast & 1 hour after each meal for a total of 4times daily. 1 kit 07/12/2024 07/12/2025 Active 12 hr buPROPion hydrochloride 150 mg extended [...] DAY Quantity: 90 Refills: 2 Ordered: 17-Mar-2022 [id number] APRN-[employer] WORKER [employer]aela Start : 08-Oct-2021 Active take 1 tablet [...] MG PO Twice daily 14 7 September 04, 2023 11:00pm cholecalciferol 0.05 mg [...] 1 tablet by didi th once daily. insulin isophane, human 100 unt/ml injectable suspension (6 sources) Start: 5 End: 5 inject 5 [IU] by subcutaneous injection in the morning insulin NPH, Isophane, (HumuLIN N,NovoLIN N) 100 UNIT/ML injection Indications: Gestational Diabetes Inject 5 Units under the skin in the morning and 5 Units in the evening. Inject before meals. 3 mL 08/02/2024 09/01/2024 Active inject 100 [IU] by s ubcutaneous injection at mealtime insulin NPH (HumuLIN N,NovoLIN N) 100 unit/mL injection Inject under the skin in the morning and in the evening. Inject with meals. Active insulin isophane, human 70 unt/ml / insulin, regular, human 30 unt/ml injectable suspension (6 sources) Insulin Start: 08-02-2024 End: 09-01-2024 inject 5 [IU] by subcutaneous injection in the morning insulin NPH-insulin regular (NovoLIN) (70-30) 100 UNIT/ML injection Indications: Gestational Diabetes Inject 5 Units under the skin in the morning and 5 Units in the evening. Inject before meals. 3 mL 08/02/2024 09/01/2024 Active insulin NPH and regular human (HumuLIN 70-30,NovoLIN 70-30) 100 unit/mL (70- 30) injection Inject under the skin in the morning and in the evening. Inject before meals. Active isopropyl alcohol 0.7 ml/ml medicated pad (8 sources) Start: 07-12-2024 Alcohol Swabs (Alcohol Prep Pad) 70 % pads Indications: Gestational diabetes mellitus (GDM), antepartum, gestational diabetes method of control unspecified , Elevated glucose tolerance test Apply 1 Pad topically Daily Use four times daily to check FSBS. 150 each 3 07/12/2024 Active MULTI-VITAMIN ORAL (2 sources) MULTI-VITAMIN OR AL Take by mouth. 0 Active Comment on above: Take by mouth. nitrofurantoin, macrocrystals 25 mg / nitrofurantoin, monohydrate 75 mg oral capsule (2 sources) Nitrofuran Antibacterial Start: 01-20-2024 End: 01-27-2024 take 1 capsule by mouth in the morning nitrofurantoin, macrocrystal-monoh ydrate, (Macrobid) 100 MG capsule Indications: Urinary tract [...] 7 days. 14 capsule 01/05/2024 01/12/2024 Active polysaccharide iron complex 391 mg oral capsule (9 sources) Start: 07-01-2024 End: 07-01-2025 take 1 capsule by mouth once daily iron polysaccharides (ProFe) 391.3 (180 Fe) MG capsule Indications: Low serum iron Take 1 capsule (391.3 mg) by mouth Daily 30 capsule 11 07/01/2024 07/01/2025 Active take 1 tablet by mouth in the mo rning polysaccharide iron complex 180 mg iron capsule Take 1 tablet by mouth in the morning. Active predniSONE 20 mg oral tablet (1 [...] Active promethazine hydrochloride 12.5 mg oral tablet (20 sources) Phenothiazine Start: 05-26-2024 take 1 tablet by mouth every six hours for nausea promethazine (Phenergan) 12.5 MG tablet TAKE 1 TABLET (12.5 MG) BY MOUTH EVERY 6 HOURS IF NEEDED FOR NAUSEA OR VOMITING 05/26/2024 Active Start: 02-16-2024 End: 05-16-2024 take 1 tablet by mouth every six hours for nausea promethazine (Phenergan) 12.5 MG tablet Indications: Nausea and vomiting in Take 1 tablet (12.5 mg) by mouth every 6 (six) hours if needed for nausea or vomiting 180 tablet 1 02/16/2024 05/16/2024 Active traZODone hydrochloride 50 mg oral tablet [...] (3 sources) Probiotic CAPS Refills: 0 Active metoclopramide 10 mg oral tablet (13 sources) Dopamine-2 Receptor Antagonist Start: 04-14-2024 End: 08-02-2024 metoclopramide (Reglan) 10 MG tablet Indications: Nausea Take 1 tablet (10 mg) by mouth in the morning and 1 tablet (10 mg) at noon and 1 tablet (10 mg) in the evening. Take before meals. Take 1 tablet by mouth 30 minutes prior to meals 3 times daily as needed for nausea.. 90 tablet 3 04/14/2024 08/02/2024 Discontinued Multiple Vitamins Oral Tablet (4 sources) Start: [...] Active ondansetron 4 mg disintegrating oral tablet (10 sources) Serotonin-3 Receptor Antagonist Start: 02-12-2024 End: 04-14-2024 take 1 tablet by mouth every six hours for nausea ondansetron ODT (Zofran-ODT) 4 MG disintegrating tablet Indications: Nausea and vomiting in Take 1 tablet (4 mg) by mouth every 6 (six) hours if needed for nausea or vomiting for up to 30 doses 30 tablet 2 02/29/2024 04/14/2024 Discontinued take 1 tablet by didi th every eight hours as needed for nausea and vomiting ondansetron ODT (ZOFRAN ODT) 4 mg disintegrating tablet Dissolve 1 tablet (4 mg total) on tongue every 8 (eight) hours as needed for nausea or vomiting. Active Probiotic CAPS (20 sources) Probiotic CAPS [...] disorder, predominantly inattentive type] Onset: 07-22-2023 Chronic Diabetes mellitus without complication (2 sources) Abnormal glucose tolerance test; Translations: [Other abnormal glucose] 07-12-2024 Episodic Diabetes or abnormal glucose tolerance complicating ; childbirth; or the puerperium (5 sources) Gestational diabetes mellitus; Translations: [Gestational diabetes mellitus in , unspecified control] Onset: 08-09-2024 07-12-2024 Episodic Endometriosis (1 source) Endometriosis of pelvic peritoneum; Translations: [ENDOMETRIOSIS OF 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 Chronic Esophageal disorders (20 sources) Gastroesophageal reflux disease; Translations: [Gastro-esophageal reflux [...] of circulatory system] Episodic Other complications of (6 sources) Multigravida of advanced maternal age; Translations: [...] adult] Chronic Other and delivery including normal (12 sources) ; Translations: [Encounter for supervision of normal , unspecified, unspecified trimester] 02-16-2024 Episodic Other screening for suspected conditions (not mental disorders or infectious disease) (20 sources) Mammography abnormal; Translations: [Abnormal mammogram, unspecified] Onset: 03-25-2021 Episodic Other skin disorders (2 sources) Lentiginosis; Translations: [Other melanin hyperpigmentation] Episodic Other upper respiratory disease (20 sources) Chronic nasopharyngitis; Translations: [Chronic nasopharyngitis] Onset: [...] [15 weeks gestation of ] 04-14-2024 Episodic Residual codes; unclassified (2 sources) Gestation period, 25 weeks; Translations: [25 weeks gestation of ] 06-20-2024 Episodic Residual codes; unclassified (2 sources) Gestation period, 28 weeks; Translations: [28 weeks gestation of ] 07-12-2024 Episodic Residual codes; unclassified (2 sources) Gestation period, 31 weeks; Translations: [31 weeks gestation of ] 08-02-2024 Episodic Spondylosis; intervertebral disc disorders; other back problems (20 sources) Neck pain; Translations: [Cervicalgia] Episodic Unclassified (16 sources) OB Reminders Onset: 04-14-2024 04-14-2024 Unclassified (1 source) Gestational Diabetes Onset: 08-09-2024 Urinary tract infections (7 sources) Urinary tract [...] 11-28-2022 Episodic Diseases of mouth; excluding dental (20 sources) Sialoadenitis; Translations: [Sialoadenitis, unspecified] Onset: 08-28-2022 [...] Test Name Value Interpretation Reference Range Facility ALL CBC WITH AUTO DIFFon BASOPHILS ABSOLUTE AUTO 0 [facility] Basophils/100 WBC (Bld) 0.2 % 0.2 - 2.0 % [facility] Eosinophils/100 WBC (Bld) 0.1 % Low 0.9 - 7.0 % [facility] Erythrocyte distribution width (RBC) [Ratio] 14.9 % 11.0 - 15.0 % [facility] Hematocrit (Bld) [Volume fraction] 32.6 % Low 36.0 - 48.0 % [facility] Hemoglobin (Bld) [Mass/Vol] 10.6 g/dL Low 12.0 - 16.0 g/dL [facility] IMMATURE GRANULOCYTES ABS AUTO 0.07 High [facility] Immature granulocytes/100 WBC (Bld) 0.8 % High 0.0 - 0.5 % [facility] Interpretation and review of laboratory results Abnormal [facility] LYMPHOCYTES ABSOLUTE AUTO 1.4 [facility] Lymphocytes/100 WBC (Bld) 16.3 % Low 20.5 - 60.0 % [facility] MCH (RBC) [Entitic mass] 27.1 pg 26.7 - 34.0 pg [facility] MCHC (RBC) [Mass/Vol] 32.5 g/dL 29.9 - 35.2 g/dL [facility] MCV (RBC) [Entitic vol] 83.4 fL 81.0 - 99.0 fL [facility] MONOCYTES ABSOLUTE AUTO 0.7 [facility] Monocytes/100 WBC (Bld) 7.9 % 1.7 - 12.0 % [facility] NEUTROPHILS ABSOLUTE AUTO 6.3 [facility] Neutrophils/100 WBC (Bld) 74.7 % 43.0 - 75.0 % [facility] Platelet mean volume (Bld) [Entitic vol] 12.1 fL 9.5 - 13.5 fL [facility] EO # 0 [facility] Healthcare TB PLT 148 Low [facility] TB RBC 3.91 Low [facility] Healthcare [facility] WBC 8.5 [facility] US OB BPP W NON-STRESS on 08-12-2024 [place] [address] Ultrasound Report Signed Patient: MICHAEL WELLER MR#: [id number] : 1985 Acct:[id number] Age/Sex: 38 / F ADM Date: 08/12/24 Loc: [facility] 254-[address]: Matt Stapleton D.O. Ordering Physician: Matt Stapleton D.O. Date of Service: 08/12/24 Procedure(s): US OB BPP w non-stress Accession Number(s): [id number] cc: Matt Stapleton D.O.; Physician,Non-Staff [facility] [place] [address] Patient Name: MICHAEL WELLER MRN: [facility]:[id number] date: 1985 Sex: F Assigned Patient Location: [facility] Current Patient Location: [facility] Accession/Order Number: [id number] Exam Date: 08/12/2024 16:37 Report Date: 08/12/2024 16:38 At the request of: MATT STAPLETON DO Procedure: US OB BPP w non-stress Ultrasound biophysical profile HISTORY: Gestational diabetes Adequate breathing movement, gross body movement, tone and amniotic fluid volume for total score of 8 out of 8. The amniotic fluid index is 11.3 cm within normal limits. The heart rate 152 bpm. US/US OB BPP w non-stress IMPRESSION: Adequate ultrasound biophysical profile Impression dictated by: Roddy Villegas M.D. 08/12/2024 4:38 PM Dictation Location: [email or web address] Electronically authenticated by: [id number] Y Date: 08/12/2024 16:38 Dictated By: Roddy Villegas D.O. Signed By: 08/12/24 1641 DD/ 37 TD/TT: Lab Support Service Tech: [facility] Radiology, Radiologist, - 08/12/2024 The [place] [id number] Ultrasound Report Signed Patient: MICHAEL WELLER MR#: [id number] : 1985 Acct:[id number] Age/Sex: 38 / F ADM Date: 08/12/24 Loc: [facility] 254-[address]: Matt Stapleton D.O. Ordering Physician: Matt Stapleton D.O. Date of Service: 08/12/24 Procedure(s): US OB BPP w non-stress Accession Number(s): [id number] cc: Matt Stapleton D.O.; Physician,Non-Staff [facility] [place] [id number] Patient Name: MICHAEL WELLER MRN: [facility]:[id number] date: 1985 Sex: F Assigned Patient Location: [facility] Current Patient Location: [facility] Accession/Order Number: [id number] Exam Date: 08/12/2024 16:37 Report Date: 08/12/2024 16:38 At the request of: MATT STAPLETON DO Procedure: US OB BPP w non-stress Ultrasound biophysical profile HISTORY: Gestational diabetes Adequate breathing movement, gross body movement, tone and amniotic fluid volume for total score of 8 out of 8. The amniotic fluid index is 11.3 cm within normal limits. The heart rate 152 bpm. US/US OB BPP w non-stress IMPRESSION: Adequate ultrasound biophysical profile Impression dictated by: Roddy Villegas M.D. 08/12/2024 4:38 PM Dictation Location: [place] [address] Electronically authenticated by: [id number] Y Date: 08/12/2024 16:38 Dictated By: Roddy Villegas D.O. Signed By: 08/12/24 1641 DD/ TD/TT: Lab Support Service Tech: [facility] Rad[facility] Study observation (narrative) [facility] US OB BPP W NON-STRESS Ordered By: Radiologist Radiology on 08-12-2024 [facility] Work Phone: US OB FOLLOW UP TRANSABDOMIN AL APPROACHon 08-09-2024 US OB FOLLOW UP TRANSABDOMINAL APPROACH EXAM: US OB FOLLOW UP TRANSABDOMINAL APPROACH [...] II, MD, PHD at 11-Aug-2024 08:51:27 AM [facility] Normal Not Available Comment on above: Order Comment: US OB SCAN FOR GROWTH Estimated Date of Delivery: 10/01/24 Gestational Age as of 07/12/2024: 28w3d US OB BPP W NON-STRESS on 08-06-[address] [address] Ultrasound Report Signed Patient: MICHAEL WELLER MR#: [id number] : 1985 Acct:[id number] Age/Sex: 38 / F ADM Date: 08/05/24 Loc: US Attending Dr: Matt Stapleton D.O. Ordering Physician: Matt Stapleton D.O. Date of Service: 08/05/24 Procedure(s): US OB BPP w non-stress Accession Number(s): [id number] cc: Matt Stapleton D.O.; Physician,Non-Staff [place] [facility] [address] [address] Patient Name: MICHAEL WELLER MRN: [facility]:[id number] date: 1985 Sex: F Assigned Patient Location: US Current Patient Location: Accession/Order Number: [id number] Exam Date: 08/06/2024 12:11 Report Date: 08/06/2024 12:12 At the request of: MATT STAPLETON DO Procedure: US OB BPP w [...] Villegas M.D. 08/06/2024 12:12 PM Dictation Location: [place] [address] Electronically authenticated by: [id number] Y Date: 08/06/2024 12:12 Dictated By: Roddy Villegas D.O. Signed By: 08/06/24 1214 DD/ 1212 TD/TT: Lab Support Service Tech: [facility] Radiology, Radiologist, MD - 08/06/2024 [facility] [place] [id number] Ultrasound Report Signed Patient: MICHAEL WELLER MR#: [id number] : 1985 Acct:[id number] Age/Sex: 38 / F ADM Date: 08/05/24 Loc: US Attending Dr: Matt Stapleton D.O. Ordering Physician: Matt Stapleton D.O. Date of Service: 08/05/24 Procedure(s): US OB BPP w non-stress Accession Number(s): [id number] cc: Matt Stapleton D.O.; Physician,Non-Staff [facility] [place] [id number] Patient Name: MICHAEL WELLER MRN: [id number]:[id number] date: 1985 Sex: F Assigned Patient Location: US Current Patient Location: Accession/Order Number: [id number] Exam Date: 08/06/2024 12:11 Report Date: 08/06/2024 12:12 At the request of: MATT STAPLETON DO Procedure: US OB BPP w [...] Villegas M.D. 08/06/2024 12:12 PM Dictation Location: [facility] Electronically authenticated by: [id number] Y Date: 08/06/2024 12:12 Dictated By: Roddy Villegas D.O. Signed By: 08/06/24 1214 DD/ 1212 TD/TT: Lab Support Service Tech: [facility] Radiology Study observation (narrative) [facility] US OB BPP W NON-STRESS Ordered By: Radiologist Radiology on 08-06-2024 [facility] Work Phone: Urinalysis macro (dipstick) panel (U)on 08-02-2024 Bilirubin, UA Negative Negative - 4(70) +++ mg/dL [facility] Blood, UA Negative Negative - 50 Shaun/mcL [facility] Clarity, UA Cloudy [facility] Color, UA Straw [facility] Glucose, UA Negative Negative - 2000(110) ++++ mg/dL [facility] Interpretation and review of laboratory results Abnormal [facility] Ketones, UA Positive Negative - 160(16) ++++ mg/dL [facility] Leukocytes, UA Negative Negative - 500+++ Denys/mcL [facility] Nitrite, UA Negative Negative - Positive [facility] pH, UA 6 5 - 9 [facility] Protein, UA Trace Negative - 1999(20) ++++ mg/dL [facility] Comment on above: 15 Spec Grav, UA 1.025 1 - 1.03 [facility] Urobilinogen, UA 0.2 0.2 - 12 mg/dL [facility] US OB FOLLOW UP TRANSABDOMIN AL APPROACHon 07-12-2024 US OB FOLLOW UP TRANSABDOMINAL APPROACH EXAM: US OB FOLLOW UP TRANSABDOMINAL APPROACH [...] weight. Interpreted by: Electronically signed by BELA MARIA II, MD, PHD at 13-Jul-2024 08:42:46 AM [facility] Normal Not Available Comment on above: Order Comment: US OB SCAN FOR GROWTH Estimated Date of Delivery: 10/01/24 Gestational Age as of 06/20/2024: 25w2d Urinalysis macro (dipstick) panel (U)on 07-12-2024 Bilirubin, UA Negative Negative - 4(70) +++ mg/dL [facility] Blood, UA Negative Negative - 50 Shaun/mcL [facility] Clarity, UA Clear [facility] Color, UA Yellow [facility] Glucose, UA Positive Negative - 1999(110) ++++ mg/dL [facility] Comment on above: 100 Interpretation and review of laboratory results Abnormal [facility] Ketones, UA Negative Negative - 160(16) ++++ mg/dL [facility] Leukocytes, UA Positive Negative - 500+++ Denys/mcL [facility] Comment on above: small Nitrite, UA Negative Negative - Positive [facility] pH, UA 6 5 - 9 [facility] Protein, UA Positive Negative - 1999(20) ++++ mg/dL [facility] Comment on above: 30 Spec Grav, UA 1.03 1 - 1.03 [facility] Urobilinogen, UA 0.2 0.2 - 12 mg/dL [facility] ALL CBC WITH AUTO DIFFon BASOPHILS ABSOLUTE AUTO 0 [facility] Basophils/100 WBC (Bld) 0.2 % 0.2 - 2.0 % [facility] Eosinophils/100 WBC (Bld) 0 % Low 0.9 - 7.0 % [facility] Erythrocyte distribution width (RBC) [Ratio] 14.1 % 11.0 - 15.0 % [facility] Hematocrit (Bld) [Volume fraction] 32.1 % Low 36.0 - 48.0 % [facility] Hemoglobin (Bld) [Mass/Vol] 10.3 g/dL Low 12.0 - 16.0 g/dL [facility] IMMATURE GRANULOCYTES ABS AUTO 0.06 High [facility] Immature granulocytes/100 WBC (Bld) 0.7 % High 0.0 - 0.5 % [facility] Interpretation and review of laboratory results Abnormal [facility] LYMPHOCYTES ABSOLUTE AUTO 1.5 [facility] Lymphocytes/100 WBC (Bld) 16.1 % Low 20.5 - 60.0 % [facility] MCH (RBC) [Entitic mass] 27.8 pg 26.7 - 34.0 pg [facility] MCHC (RBC) [Mass/Vol] 32.1 g/dL 29.9 - 35.2 g/dL [facility] MCV (RBC) [Entitic vol] 86.5 fL 81.0 - 99.0 fL [facility] MONOCYTES ABSOLUTE AUTO 0.6 [facility] Monocytes/100 WBC (Bld) 6.2 % 1.7 - 12.0 % [facility] NEUTROPHILS ABSOLUTE AUTO 7.1 High [facility] Neutrophils/100 WBC (Bld) 76.8 % High 43.0 - 75.0 % [facility] Platelet mean volume (Bld) [Entitic vol] 12.2 fL 9.5 - 13.5 fL [facility] EO # 0 [facility] PLT 152 [facility] RBC 3.71 Low [facility] WBC 9.2 [facility] No Panel Informationon 06-30 [facility] Platelet counton 06-30-2024 Platelets (Bld) [#/Vol] 152 10*3/uL [facility] Urinalysis macro (dipstick) panel (U)on 06-20-2024 Bilirubin, UA Negative Negative - 4(70) +++ mg/dL [facility] Blood, UA Negative Negative - 50 Shaun/mcL [facility] Clarity, UA Clear [facility] Color, UA Yellow [facility] Glucose, UA Positive Negative - 1999(110) ++++ mg/dL [facility] Comment on above: 100mg/dL Interpretation and review of laboratory results Abnormal [facility] Ketones, UA Negative Negative - 160(16) ++++ mg/dL [facility] Leukocytes, UA Positive Negative - 500+++ Denys/mcL [facility] Comment on above: small Nitrite, UA Negative Negative - Positive [facility] pH, UA 6 5 - 9 [facility] Protein, UA Positive Negative - 2000(20) ++++ mg/dL [facility] Comment on above: 30mg/dL Spec Grav, UA 1.03 1 - 1.03 [facility] Urobilinogen, UA 0.2 0.2 - 12 mg/dL [facility] US OB 14+ WEEKS ANATOMY SCAN on 05-23-2024 US OB 14+ WEEKS ANATOMY SCAN EXAM: US OB 14+ WEEKS ANATOMY SCAN [...] the anatomy. Electronically Signed:Electronically signed by BELA MARIA II, MD, PHD at 24-May-2024 12:33:10 AM [facility] Normal Not Available Comment on above: Order Comment: US OB ANATOMY SINGLE W US OB CERVICAL LENGTH Estimated Date of Delivery: 10/01/24 Gestational Age as of 04/14/2024: 15w5d AFP, SERUM, OPEN SPINA BIFID Aon 05-06-2024 AFP MOM 1.80 . [facility] AFP VALUE 65.1 ng/mL . [facility] COMMENT: Comment . [facility] Comment on above: Annalee Akhtar , Ph.D., [facility] Director References: Available Upon Request. Multiples Of Median Cutoffs For AFP Elevations George 2.5 Black 2.8 IDD 2.0 Twins 4.5 Abbreviation Definitions IDD - Insulin Dep Diabetes OSBR - Open Spina Bifida Risk For further inquiries contact [facility] [employer] [facility] at [phone]. This test was developed and its performance characteristics determined by [facility]. It has not been cleared or approved by the Food and Drug Administration. Performed at: [facility] RTP [address] [facility], [place], [place] [id number] Convertible Sofa Bedspring Tester: Yaneli Sandoval [facility], Phone: [phone] GEST. AGE ON COLLECTION DATE 18.4 . weeks [facility] GESTAT. AGE BASED ON Ultrasound . [facility] Comment on above: 15.7 on 04/14/2024 Recalculations are not recommended when gestational dating by LMP and ultrasound are within 10 days. INSULIN DEP DIABETES No . [facility] INTERPRETATION Comment . [facility] Comment on above: Interpretation: Scre en Negative This result is screen negative for OSB. The AFP MoM calculated is based on the gestational age provided. MS-AFP can identify up to 80% of open neural tube defects. Closed neural tube defects and some open defects may not be detected by this test. This test does not screen for Down Syndrome or Trisomy 18. If screening for Down Syndrome or Trisomy 18 is desired, contact [employer] to discuss available options. The [employer] recommends amniocentesis be offered to women age 35 and older. [age] [facility] MULTIPLE GESTATION No . [facility] OSBR RISK 1 IN 1278 . [facility] RACE . [facility] RESULTS Report . [facility] TEST RESULTS: Negative . [facility] WEIGHT 216 . lbs [facility] N N ULTRASOUND [id number] 5 15 N 1 216 N N N N N White/ [facility] Urinalysis macro (dipstick) panel (U)on 04-14-2024 Bilirubin, UA Negative Negative - 4(70) +++ mg/dL [facility] Blood, UA Positive Negative - 50 Shaun/mcL [facility] Comment on above: trace-intact Clarity, UA Clear [facility] Color, UA Yellow [facility] Glucose, UA Positive Negative - 2000(110) ++++ mg/dL [facility] Comment on above: 100 Interpretation and review of laboratory results Abnormal [facility] Ketones, UA Negative Negative - 160(16) ++++ mg/dL [facility] Leukocytes, UA Trace Negative - 500+++ Denys/mcL [facility] Nitrite, UA Negative Negative - Positive [facility] pH, UA 5.5 5 - 9 [facility] Protein, UA Negative Negative - 1999(20) ++++ mg/dL [facility] Spec Grav, UA 1.025 1 - 1.03 [facility] Urobilinogen, UA 0.2 0.2 - 12 mg/dL [facility] Urinalysis macro (dipstick) panel (U)on 03-16-2024 Bilirubin, UA Negative Negative - 4(70) +++ mg/dL [facility] Blood, UA Negative Negative - 50 Shaun/mcL [facility] Clarity, UA Clear [facility] Color, UA Yellow [facility] Glucose, UA Negative Negative - 1999(110) ++++ mg/dL [facility] Interpretation and review of laboratory results Normal [facility] Ketones, UA Negative Negative - 160(16) ++++ mg/dL [facility] Leukocytes, UA Negative Negative - 500+++ Denys/mcL [facility] Nitrite, UA Negative Negative - Positive [facility] pH, UA 5.5 5 - 9 [facility] Protein, UA Negative Negative - 1999(20) ++++ mg/dL [facility] Spec Grav, UA 1.025 1 - 1.03 [facility] Urobilinogen, UA 1.0 0.2 - 12 mg/dL [facility] CBC without diffon 4 Hematocrit (Bld) [Volume fraction] 38.7 % [facility] Hemoglobin (Bld) [Mass/Vol] 12.6 g/dL [facility] Platelets (Bld) [#/Vol] 200 10*3/uL [facility] Rbc Mcv (Fl) By Automated Count 85.[address] [facility] Drug Screen, Urineon 024 Amphetamine/Methamphe tamine Negative [facility] Barbiturates Negative [facility] Benzodiazepines Negative [facility] Cocaine Metabolite Negative [facility] Methadone Negative [facility] Opiates Negative [facility] Oxycodone Negative [facility] Phencyclidine Negative [facility] Thc Marijuana, Urine Negative [facility] HBV surface Ag IA Qlon 03-08 Hepatitis B Surface Antigen Negative [facility] HCV Ab IA Qlon 03-08-2024 HCV Ab Ql (S) Negative [facility] HIV 1+2 Ab+HIV1 p24 Ag IA Ql on 03-08-2024 HIV 1&2 AB/AG Non-Reactive [facility] MLR HEMOGLOBIN A1Con 024 Glucose [Mass/Vol] 105 mg/dL [facility] HbA1c (Bld) [Mass fraction] 5.3 % 4.5 - 6.2 % [facility] Comment on above: ADA RECOMMENDED LIMI T 4.0 - 6.0 ADA THERAPEUTIC TARGET < 7.0 ACTION SUGGESTED > 7.0 [facility] No Panel Informationon 03-08 [facility] Rubella IGG immune statuson 03-08-2024 Rubella immune IgG IMMUNE [facility] T. pallidum IgG+IgM IA Ql (S )on 03-08-2024 Syphilis Non-Reactive [facility] Type and screenon 03-08-2024 Abo/Rh(D) Positive [facility] Urine Cultureon 03-08-2024 Bacteria identified Cx Nom (U) 75,000 colonies/ml mixed bacterial skin contaminants 2 Days PERFORMED BY: [place] [address] PATHOLOGIST REDYE HAND LASHONDA HARMON M.D. Normal The Counts Include 234 Beds At [facility] Comment on above: Performed By: #### C UU #### [address] HCG ( test) Ql (U)o n 02-16-2024 Interpretation and review of laboratory results Abnormal [facility] Preg Test, Ur Positive Negative [facility] Urinalysis macro (dipstick) panel (U)on 02-16-2024 Bilirubin, UA Negative Negative - 4(70) +++ mg/dL [facility] Blood, UA Negative Negative - 50 Shaun/mcL [facility] Clarity, UA Clear [facility] Color, UA Yellow [facility] Glucose, UA Negative Negative - 2000(110) ++++ mg/dL [facility] Interpretation and review of laboratory results Normal [facility] Ketones, UA Negative Negative - 160(16) ++++ mg/dL [facility] Leukocytes, UA Negative Negative - 500+++ Denys/mcL [facility] Nitrite, UA Negative Negative - Positive [facility] pH, UA 6.5 5 - 9 [facility] Protein, UA Negative Negative - 2000(20) ++++ mg/dL [facility] Spec Grav, UA 1.02 1 - 1.03 [facility] Urobilinogen, UA 1.0 0.2 - 12 mg/dL [facility] PREG QUANT HCGon 01-27- 024 HCG QUANTITATIVE 71685 mIU/mL [facility] Comment on above: 5-50 0.2-1 WEEK 50-500 1-2 WEEKS 100-5,000 2-3 WEEKS 500-10,000 3-4 WEEKS 1,000-50,000 4-5 WEEKS 10,000-100,000 5-6 WEEKS 15,000-200,000 6-8 WEEKS 10,000-100,000 [facility] 024 HCG QUANTITATIVE 5650 mIU/mL [facility] Comment on above: 5-50 0.2-1 WEEK 50-500 1-2 WEEKS 100-5,000 2-3 WEEKS 500-10,000 3-4 WEEKS 1,000-50,000 4-5 WEEKS 10,000-100,000 5-6 WEEKS 15,000-200,000 6-8 WEEKS 10,000-100,000 2[facility] ( test) Ql (U)o n 01-05-2024 Interpretation and review of laboratory results Normal [facility] Work Phone: Preg Test, Ur Negative Negative [facility] Work Phone: [facility] Work Phone: POCT UA Automated manually r esultedon 01-05-2024 Appearance (U) Cloudy Abnormal Clear [facility] Work Phone: Glucose Test strip (U) [Mass/Vol] Negative NEGATIVE mg/dl [facility] Work Phone: Hemoglobin Ql (U) Negative NEGATIVE [facility] Work Phone: Interpretation and review of laboratory results Abnormal [facility] Work Phone: Leukocyte esterase Test strip Ql (U) SMALL (1+) Abnormal NEGATIVE [facility] Work Phone: Nitrite Ql (U) Positive Abnormal NEGATIVE [facility] Work Phone: pH (U) 7.5 [pH] No Reference Range Established [facility] Work Phone: POC Bilirubin, Urine Negative NEGATIVE [facility] Work Phone: POC Color, Urine Yellow Straw, [place] ow, Light-Yellow [facility] Work Phone: POC Ketones, Urine Negative NEGATIVE mg/dl [facility] Work Phone: POC Protein, Urine Negative NEGATIVE, 30 (1+) mg/dl [facility] Work Phone: POC Specific [place], Urine 1.010 1.005 - 1.035 [facility] Work Phone: POC Urobilinogen, Urine 0.2 0.2, 1.0 EU/DL [facility] Work Phone: [facility] Work Phone: IGP,APTIMA HPV,AGE GDLNon AGE GDLN ACOG TESTING Note . [facility] Comment on above: TESTS RESULT FLAG UN ITS REF RANGE LAB Clinician Provided Cytology Information Source.............Cervix;Endocervix No. of containers..01 ThinPrep Vial Age Algo ACOG Katherin... FLAG LEGEND: L-Low Normal,H-High Normal,LL-Alert Low,HH-Alert High <-Panic Low,>-Panic High,A-Abnormal,AA-Critical Abnormal Performed at: 01 =[address] [address] Lacy Perez MD, HPV APTIMA Negative Negative [facility] Comment on above: This nucleic acid am plification test detects fourteen high- risk HPV types (16,18,31,33,35,39,45,51,52,56,58,59,66,68) without differentiation. Performed at: =[address] [id number] Convertible Sofa Bedspring Tester: Lacy Perez MD, Phone: [phone] Performed at: [address] [id number] Convertible Sof[employer] Bedspring Tester: Lacy Perez MD, Phone: [phone] IGP, APTIMA HPV, RFX 16/18,45 Note . [facility] Comment on above: TESTS RESULT FLAG UN ITS REF RANGE LAB DIAGNOSIS: 02 NEGATIVE FOR INTRAEPITHELIAL LESION OR MALIGNANCY. Specimen adequacy: 02 Satisfactory for evaluation. Endocervical and/or squamous metaplastic cells (endocervical component) are present. Performed by: 02 Maryse Tang Senior Clinical Data Manager (OMIDP) . 02 Note: Note 02 The Pap [...] High,A-Abnormal,AA-Critical Abnormal Performed at: 02 [address] [facility] [address] [address] Lacy Perez MD, BRUSH-SPATULA CERVIX ENDOCERVIX [facility] Urine Cultureon 09-05-2023 Bacteria identified Cx Nom (U) <9,000 colonies/ml mixed bacterial skin contaminants 2 Days PERFORMED BY: [place] [address] PATHOLOGIST REDYE HAND DAVID CHILD M.D. Normal The Counts Include 234 Beds At [facility] Comment on above: Performed By: #### C UU #### [address] CNOVon 09-01-2023 CNOV Office Visit (AMDERM ) MICHAEL WELLER ([id number]) 1985 F Date Time Provider Department 09/01/23 [...] Past Histories independently gathered by the clinical business support associate and the remaining scribed note [...] Date Reviewed: 09/01/2023 Reviewed by: Roula Bledsoe APRN.[employer] - Fully Assessed Reason for Visit: Full [...] - dexmethylphenidate (more content not included)... Normal [facility] Drugs of abuse screen W Refl ex confirm panel (U)on 02-19-2023 Amphetamines Screen Ql (U) Negative Normal Presumptive Negative [facility] Comment on above: Order Comment: [...] By: #### 8 7428-9 #### ALEJANDRO RAMOS ([id number]) [facility] ([facility]) [address] [place] [address] Barbiturates Screen Ql (U) Negative Normal Presumptive Negative [facility] Comment on above: Order Comment: [...] By: #### 8 7428-9 #### ALEJANDRO RAMOS ([id number]) [facility] ([facility] [address] [place] [address] Benzodiazepines Ql (U) Negative Normal Presumptive Negative [facility] Comment on above: Order Comment: [...] By: #### 8 7428-9 #### ALEJANDRO RAMOS ([id number]) [facility] (EM) [address] [place] [address] Benzoylecgonine Screen Ql (U) Negative Normal Presumptive Negative [facility] Comment on above: Order Comment: [...] By: #### 8 7428-9 #### ALEJANDRO RAMOS ([id number]) [facility] ([facility] [address] [place] [address] Cannabinoids Screen Ql (U) Negative Normal Presumptive Negative [facility] Comment on above: Order Comment: [...] By: #### 8 7428-9 #### ALEJANDRO RAMOS ([id number]) [facility] ([facility] [address] [place] [address] fentaNYL+Norfentanyl Screen Ql (U) Negative Normal Presumptive Negative [facility] Comment on above: Order Comment: [...] By: #### 8 7428-9 #### ALEJANDRO RAMOS ([id number]) [facility] ([facility] [address] [place], [place] [id number] Opiates Screen Ql (U) Negative Normal Presum ptive Negative [facility] Comment on above: Order Comment: [...] By: #### 8 7428-9 #### ALEJANDRO RAMOS ([id number]) [facility] ([facility] [address] [place] [address] oxyCODONE+oxyMORphone Screen Ql (U) Negative Normal Presumptive Negative [facility] Comment on above: Order Comment: [...] By: #### 8 7428-9 #### ALEJANDRO RAMOS ([id number]) [facility] ([facility]) [address] [place] [address] Phencyclidine Ql (U) Negative Normal Presump tive Negative [facility] Comment on above: Order Comment: [...] By: #### 8 7428-9 #### ALEJANDRO RAMOS ([id number]) [facility] ([facility]) [address] [place], [place] [address] BI MAMMO BILATERAL DIAGNOSTI C TOMOSYNTHESISon 12-19-2022 BI MAMMO BILATERAL DIAGNOSTIC TOMOSYNTHESIS Interpreted By: Mohan Romano and Jakob Wei STUDY: BI MAMMO BILATERAL DIAGNOSTIC TOMOSYNTHESIS; BI US BREAST LIMITED LEFT; 12/19/2022 9:42 am; 12/19/2022 10:52 am ACCESSION NUMBER(S): [id number]; [id number] ORDERING CLINICIAN: KAROLINA MAN INDICATION: Annual screening [...] axillary abnormality was performed by a registered trailer steerer. No sonographic abnormalities are seen in the [...] any future breast imaging appointments, please call [phone] ([phone]). MACRO: None Signed by: Mohan Romano 12/19/2022 11:32 AM Dictation workstation: [id number] [facility] BI US BREAST LIMITED LEFTon 12-19-2022 BI US BREAST LIMITED LEFT Interpreted By: Mohan Romano, and Jakob Wei STUDY: BI MAMMO BILATERAL DIAGNOSTIC TOMOSYNTHESIS; BI US BREAST LIMITED LEFT; 12/19/2022 9:42 am; 12/19/2022 10:52 am ACCESSION NUMBER(S): [id number]; [id number] ORDERING CLINICIAN: KAROLINA MAN INDICATION: Annual screening [...] axillary abnormality was performed by a registered trailer steerer. No sonographic abnormalities are seen in the [...] any future breast imaging appointments, please call [phone] ([phone]). MACRO: None Signed by: Mohan Romano 12/19/2022 11:32 AM Dictation workstation: [id number] [facility] DBT Breast - bilateral diagn osticon 12-19-2022 Radiology Study observation ([facility]) [facility] Work Phone: No Panel Informationon 12-19 1. [...] any future breast imaging appointments, please call [phone] ([phone]). MACRO: None Signed by: Mohan Romano 12/19/2022 11:32 AM Dictation workstation: [id number] [facility]AL Interpreted By: Mohan Romano, and Jakob Wei STUDY: BI MAMMO BILATERAL DIAGNOSTIC TOMOSYNTHESIS; BI US BREAST LIMITED LEFT; 12/19/2022 9:42 am; 12/19/2022 10:52 am ACCESSION NUMBER(S): [id number]; [id number] ORDERING CLINICIAN: KAROLINA MAN INDICATION: Annual screening [...] axillary abnormality was performed by a registered trailer steerer. No sonographic abnormalities are seen in the area of the patient's reported palpable lump or pain. 3 morphologically normal lymph nodes are incidentally seen. MMODAL No Panel InformationOrdered By: Mohan Romano on 12-19-2022 [facility] Work Phone: US Breast - left limitedon 1 Radiology Study observation (narrative) [facility] Work Phone: COMPREHENSIVE PANELon 2022 Albumin [Mass/Vol] 4.6 g/dL Normal 3.4 - 5.0 [facility] Comment on above: Performed By: #### C MP #### [facility] [address] [place] [address] ALP [Catalytic activity/Vol] 63 U/L Normal 33 - 110 [facility] Comment on above: Performed By: #### C MP #### [facility] [address] [place] [address] ALT [Catalytic activity/Vol] 23 U/L Normal 7 - 45 [facility] Comment on above: Result Comment: Lacie ents treated with Sulfasalazine may generate falsely decreased results for ALT. Performed By: #### C MP #### [facility] [address] [place] [address] Anion gap [Moles/Vol] 14 mmol/L Normal 10 - 20 [facility] Comment on above: Performed By: #### C MP #### [facility] [address] [place] [address] AST [Catalytic activity/Vol] 22 U/L Normal 9 - 39 [facility] Comment on above: Performed By: #### C MP #### [facility] [address] [place] [address] Bilirubin [Mass/Vol] 0.3 mg/dL Normal 0.0 - 1.2 [facility] Comment on above: Performed By: #### C MP #### [facility] [address] [place] [address] Calcium [Mass/Vol] 9.2 mg/dL Normal 8.6 - 10.6 [facility] Comment on above: Performed By: #### C MP #### [facility] [address] [place] [address] Chloride [Moles/Vol] 102 mmol/L Normal 98 - 107 [facility] Comment on above: Performed By: #### C MP #### [facility] [address] [place] [address] Creatinine [Mass/Vol] 0.66 mg/dL Normal 0.50 - 1.05 [facility] Comment on above: Performed By: #### C MP #### [facility] [address] [place] [address] eGFR FEMALE >90 Normal >90 [facility] Comment on above: Result Comment: CALC ULATIONS OF ESTIMATED GFR ARE PERFORMED USING THE 2020 CKD-EPI STUDY REFIT EQUATION WITHOUT THE RACE VARIABLE FOR THE IDMS-TRACEABLE CREATININE METHODS. https://jasn.asnjournals.org/content//ASN.933706 4132 Performed By: #### C MP #### [facility] [address] [place] [address] Glucose [Mass/Vol] 82 mg/dL Normal 74 - 99 [facility] Comment on above: Performed By: #### C MP #### [facility] [address] [place] [address] HCO3 (Bld) [Moles/Vol] 25 mmol/L Normal 21 - 32 [facility] Comment on above: Performed By: #### C MP #### [facility] [address] [place] [address] Potassium [Moles/Vol] 3.9 mmol/L Normal 3.5 - 5.3 [facility] Comment on above: Performed By: #### C MP #### [facility] [address] [place] [address] Protein [Mass/Vol] 7.2 g/dL Normal 6.4 - 8.2 [facility] Comment on above: Performed By: #### C MP #### [facility] [address] [place] [address] Sodium [Moles/Vol] 137 mmol/L Normal 136 - 145 [facility] Comment on above: Performed By: #### C MP #### [facility] [address] [place] [address] Urea nitrogen [Mass/Vol] 17 mg/dL Normal 6 - 23 [facility] Comment on above: Performed By: #### C MP #### [facility] [address] [place] [address] VITAMIN D, 25-HYDROXYon 11-08 VITAMIN D, 25-HYDROXY 36 ng/mL Normal [facility] Comment on above: Result Comment: . DEFICIENCY: < 20 NG/ML INSUFFICIENCY: 20-29 NG/ML SUFFICIENCY: 30-100 NG/ML THIS ASSAY ACCURATELY QUANTIFIES THE SUM OF VITAMIN D3, 25-HYDROXY AND VIT D2,25-HYDROXY. Performed By: #### V TDOH #### [facility] [address] [place] [address] COMPREHENSIVE PANELon 2022 Lab Specimen Source Normal [facility] Comment on above: Performed By: #### C MP #### [facility] [address] [place] [address] Performed By: #### V TDOH #### [facility] [address] [place] [address] XR foot RT min 3V*on 023 XR foot RT min 3V* [facility] [employer] Other XR foot RT min 3V* [facility] [place] [employer] Other XR foot RT min 3V* [address] [place] [address] [employer] Other XR foot RT min 3V* [place] [address] [employer] Other XR foot RT min 3V* XRay Report [employer] Other XR foot RT min 3V* Signed [employer] Other XR foot RT min 3V* Patient: Michael Weller MR#: [id number] [employer] Other XR foot RT min 3V* [id number] [employer] Other XR foot RT min 3V* : 1985 Acct:[id number] [employer] Other XR foot RT min 3V* Age/Sex: 36 / F ADM Date: 07/02/22 [employer] Other XR foot RT min 3V* Loc: [id number] Room: Type: [facility] [employer] Other XR foot RT min 3V* Attending Dr: Bolivar Sherman NP-C [employer] Other XR foot RT min 3V* Copies to: Bolivar KRISHNAN-C [employer] Other XR foot RT min 3V* Ordering Provider: Bolivar PALOMARESC [employer] Other XR foot RT min 3V* Date of Service: 07/02/22 [employer] Other XR foot RT min 3V* XR/XR foot RT min 3V*: Right foot pain [employer] Other XR foot RT min 3V* 3 views RIGHT foot [employer] Other XR foot RT min 3V* COMPARISON:None N [facility] [employer] Other XR foot RT min 3V* HISTORY: RIGHT 5th metatarsal pain for one week [employer] Other XR foot RT min 3V* Acute findings: None [employer] Other XR foot RT min 3V* Degenerative change: Unremarkable [employer] Other XR foot RT min 3V* Soft tissue findings : Unremarkable [employer] Other XR foot RT min 3V* Joint effusion: None [employer] Other XR foot RT min 3V* Postop changes: None [employer] Other XR foot RT min 3V* XR/XR foot RT min 3V* [employer] Other XR foot RT min 3V* IMPRESSION:No acute findings [employer] Other XR foot RT min 3V* Impression dictated by: Roddy Villegas M.D.07/02/2022 1:27 PM [employer] Other XR foot RT min 3V* Dictation Location: [place] [address] [employer] Other XR foot RT min 3V* Transcribed By: LENY 07/02/22 1327 [employer] Other XR foot RT min 3V* Dictated By: Roddy Villegas DO 07/02/22 1325 [facility] [employer] Other XR foot RT min 3V* Signed By: [place] [employer] Other XR foot RT min 3V* 07/02/[address] [facility] Other Office Visit (Primary Care F orms)on [...] YOEL = N; Verified Transmission to [id number]; Last Updated By: [facility]; 02/10/2022 3:45:08 PM Chief Complaint An interactive [...] BREAST ULTRASOUND; 10/14/2021 3:38 pm ACCESSION NUMBER(S): [id number] ORDERING CLINICIAN: GRAZYNA ROMANO INDICATION: Patient presents with right axillary painful palpable mass for the last 2 years. History of benign right breast mass with unknown pathology in right breast. COMPARISON: Mammogram 06/21/2021, 07/06/2018, 01/08/2018. Breast ultrasound 06/21/2021, 04/23/2020, 07/15/2019, 02/02/2019 FINDINGS: Targeted ultrasound was performed of the right axilla by a registered trailer steerer using elastography. Within the right axilla, no sonographic abnormality is present. The tissues are soft on elastography. Incidental note of normal appearing right axillary lymph node. IMPRESSION: No sonographic evidence of malignancy. Recommendation is clinical follow-up for patient's symptomatology. Screening mammogram in June 2022. BI-RADS CATEGORY: Category: 2 - Benign. Recommendation: Clinical follow-up for symptomatology. For any future breast imaging appointments, please call [phone] ([phone]). I personally reviewed the images/study and I agree with the findings as stated by microarray operations vice president Brandt Camarillo MD. Electronically signed by: JAYME STEWART MD Normal [facility] Limited [place] 10-14-2021 MG Breast Screening Normal [facility] Work Phone: Albumin [Mass/volume] in Ser um or PlasmaOrdered By: Kp Alvares on 10-07-2021 Albumin [Mass/Vol] 3.9 g/dL 3.2-5.[address] [facility] Basophils Auto (Bld) [#/Vol] Ordered By: Kp Alvares on 10-07-2021 Basophils (Bld) [#/Vol] 0.0 10*3/uL 0.0-0.2 [facility] Basophils/100 WBC Auto (Bld) Ordered By: Kp Alvares on 10-07-2021 Basophils/100 WBC (Bld) 0.6 % . [facility] Blood hemoglobin measurement (mass/volume)Ordered By: Kp Alvares on 10-07-2021 Hemoglobin (Bld) [Mass/Vol] 12.9 g/dL 11.8-15.4 [facility] Blood leukocytes automated c ount (number/volume)Ordered By: Kp Alvares on 10-07-2021 WBC (Bld) [#/Vol] 6.7 10*3/uL 4.5-11.[address] [facility] Cholesterol [Mass/volume] in Serum or PlasmaOrdered By: Kp Alvares on 10-07-2021 Cholesterol [Mass/Vol] 192 mg/dL 140-200 [facility] Comment on above: Chol less than 200 m g/dl low risk Chol 201-239 mg/dl borderline risk Chol 240 mg/dl and greater high risk Cholesterol in LDL Calc [Mas s/Vol]Ordered By: Kp Alvares on 10-07-2021 Cholesterol in LDL [Mass/Vol] 104 mg/dL 0-100 [facility] Comment on above: LDL ATP III CLASSIFI CATION LDL less than 100 mg/dL Optimal LDL 100-129 mg/dL Near or above optimal LDL 130-159 mg/dL Borderline high LDL 160-189 mg/dL High LDL greater than 189 mg/dL Very high Cholesterol in VLDL Calc [Ma ss/Vol]Ordered By: Kp Alvares on 10-07-2021 Cholesterol in VLDL [Mass/Vol] 49 mg/dL [facility] Creatinine and Glomerular fi ltration rate.predicted panel (S/P/Bld)Ordered By: Kp Alvares on 10-07-2021 Creatinine [Mass/Vol] 0.60 mg/dL 0.44-1.03 [facility] Eosinophils Auto (Bld) [#/Vo l]Ordered By: Kp Alvares on 10-07-2021 Eosinophils (Bld) [#/Vol] 0.0 10*3/uL 0.0-0.45 [facility] Eosinophils/100 WBC Auto (Bl d)Ordered By: Kp Alvares on 10-07-2021 Eosinophils/100 WBC (Bld) 0.1 % . [facility] Erythrocyte distribution wid th Auto (RBC) [Ratio]Ordered By: Kp Alvares on 10-07-2021 Erythrocyte distribution width (RBC) [Ratio] 14.1 % 11.9-15.3 [facility] Estimated glomerular filtrat ion rate (GFR) non- AmericanOrdered By: Kp Alvares on 10-07-2021 GFR/1.73 sq M.predicted among non-blacks MDRD (S/P/Bld) [Vol rate/Area] > 60 mL/Min [facility] Globulin Calc (S) [Mass/Vol] Ordered By: Kp Alvares on 10-07-2021 Globulin (S) [Mass/Vol] 2.7 g/dL [facility] Hematocrit Auto (Bld) [Volum e fraction]Ordered By: Kp Alvares on 10-07-2021 Hematocrit (Bld) [Volume fraction] 39.2 % 34.0-46.4 [facility] Laboratory - Hematology and Cell countsOrdered By: Kp Alvares on 10-07-2021 Nucleated RBC/100 WBC (Bld) [Ratio] 0.0 % 0-0.5 [facility] Lymphocytes Auto (Bld) [#/Vo l]Ordered By: Kp Alvares on 10-07-2021 Lymphocytes (Bld) [#/Vol] 2.0 10*3/uL 1.00-4.8 [facility] Lymphocytes/100 WBC Auto (Bl d)Ordered By: Kp Alvares on 10-07-2021 Lymphocytes/100 WBC (Bld) 30.2 % . [facility] MCH Auto (RBC) [Entitic mass ]Ordered By: Kp Alvares on 10-07-2021 MCH (RBC) [Entitic mass] 28.2 pg 24.7-34.3 [facility] MCHC Auto (RBC) [Mass/Vol]Or dered By: Kp Alvares on 10-07-2021 MCHC (RBC) [Mass/Vol] 33.0 g/dL 32.0-35.0 [facility] MCV Auto (RBC) [Entitic vol] Ordered By: Kp Alvares on 10-07-2021 MCV (RBC) [Entitic vol] 85.5 fL 80-100 [facility] Monocytes Auto (Bld) [#/Vol] Ordered By: Kp Alvares on 10-07-2021 Monocytes (Bld) [#/Vol] 0.4 10*3/uL 0.0-0.8 [facility] Monocytes/100 WBC Auto (Bld) Ordered By: Kp Alvares on 10-07-2021 Monocytes/100 WBC (Bld) 5.4 % . [facility] Neutrophils Auto (Bld) [#/Vo l]Ordered By: Kp Alvares on 10-07-2021 Neutrophils (Bld) [#/Vol] 4.2 10*3/uL 1.8-7.7 [facility] Neutrophils/100 WBC Auto (Bl d)Ordered By: Kp Alvares on 10-07-2021 Neutrophils/100 WBC (Bld) 63.7 % . [facility] No Panel InformationOrdered By: Kp Alvares on 10-07-2021 Estimated GFR () > 60 mL/Min [facility] Comment on above: GFR estimated refere nce range: According to KDOQI guidelines, <60 ml/min/1.73m2 is sufficient to diagnose a patient with chronic kidney disease. Pharmacy Creatinine Clearance (Chem N/A [facility] Platelet mean volume Auto (B ld) [Entitic vol]Ordered By: Kp Alvares on 10-07-2021 Platelet mean volume (Bld) [Entitic vol] 11.4 fL 6.3-10.7 [facility] Platelets Auto (Bld) [#/Vol] Ordered By: Kp Alvares on 10-07-2021 Platelets (Bld) [#/Vol] 164 10*3/uL 150-450 [facility] Protein [Mass/volume] in Ser um or PlasmaOrdered By: Kp Alvares on 10-07-2021 Protein [Mass/Vol] 6.6 g/dL 6.1-7.[address] [facility] RBC Auto (Bld) [#/Vol]Ordere d By: Kp Alvares on 10-07-2021 RBC (Bld) [#/Vol] 4.59 10*6/uL 3.60-5.00 [facility] Serum or plasma alanine bynum otransferase measurement without P-5'-P (enzymatic activiOrdered By: Kp Alvares on 10-07-2021 ALT No additional P-5'-P [Catalytic activity/Vol] 16 U/L 10-60 [facility] Serum or plasma albumin/glob ulin mass ratioOrdered By: Kp Alvares on 10-07-2021 Albumin/Globulin [Mass ratio] 1.4 {ratio} [facility] Serum or plasma alkaline jenn sphatase measurement (enzymatic activity/volume)Ordered By: Kp Alvares on 10-07-2021 ALP [Catalytic activity/Vol] 55 U/L 32-92 [facility] Serum or plasma aspartate am inotransferase measurement (enzymatic activity/volume)Ordered By: Kp Alvares on 10-07-2021 AST [Catalytic activity/Vol] 16 U/L 10-42 [facility] Serum or plasma calcium marlon urement (mass/volume)Ordered By: Kp Alvares on 10-07-2021 Calcium [Mass/Vol] 9.2 mg/dL 8.2-10.[address] [facility] Serum or plasma chloride any surement (moles/volume)Ordered By: Kp Alvares on 10-07-2021 Chloride [Moles/Vol] 102 mmol/L 95-114 [facility] Serum or plasma glucose marlon urement (mass/volume)Ordered By: Kp Alvares on 10-07-2021 Glucose [Mass/Vol] 86 mg/dL 70-[address] [facility] Comment on above: ADA recommended refe rence range Random Glucose Reference Range is dependent on time and content of last meal. Glucose of more than 200 mg/dL in a nonstressed, ambulatory subject supports the diagnosis of Diabetes Mellitus. Serum or plasma high density lipoprotein (HDL) cholesterol measurementOrdered By: Kp Alvares on 10-07-2021 Cholesterol in HDL [Mass/Vol] 39 mg/dL 35-85 [facility] Comment on above: HDL CHOL ATP-III CLA SSIFICATION Cardiovascular Risk HDL > or equal to 60 mg/dL LOW HDL < 40 mg/dL HIGH Serum or plasma potassium me asurement (moles/volume)Ordered By: Kp Alvares on 10-07-2021 Potassium [Moles/Vol] 4.1 mmol/L 3.5-5.1 [facility] Serum or plasma sodium measu rement (moles/volume)Ordered By: Kp Alvares on 10-07-2021 Sodium [Moles/Vol] 134 mmol/L 136-[address] [facility] Serum or plasma total biliru bin measurement (mass/volume)Ordered By: Kp Alvares on 10-07-2021 Bilirubin [Mass/Vol] 0.6 mg/dL 0.3-1.2 [facility] Serum or plasma total carbon dioxide measurement (moles/volume)Ordered By: Kp Alvares on 10-07-2021 CO2 [Moles/Vol] 25.9 mmol/L 22.0-30.0 [facility] Serum or plasma total choles terol/high density lipoprotein (HDL) cholesterol mass ratOrdered By: Kp Alvares on 10-07-2021 Cholesterol.total/Cho lesterol in HDL [Mass ratio] 4.9 {ratio} <5.0 [facility] Serum or plasma urea nitroge n measurement (mass/volume)Ordered By: Kp Alvares on 10-07-2021 Urea nitrogen [Mass/Vol] 10 mg/dL 9-23 [facility] TSH DL <= 0.005 mIU/L QnOrde red By: Kp Alvares on 10-07-2021 TSH Qn 2.68 m[IU]/L 0.45-5.33 [facility] Triglyceride [Mass/volume] i n Serum or PlasmaOrdered By: Kp Alvares on 10-07-2021 Triglyceride [Mass/Vol] 246 mg/dL 35-149 [facility] Comment on above: TRIG ATP III CLASSIF ICATION TRIG less than 150 mg/dL Normal TRIG 150-199 mg/dL Borderline high TRIG 200-500 mg/dL High TRIG greater than 500 mg/dL Very high Standard traceable to the Center for Disease Conrtrol and Prevention (CDC) test method. CBC AUTO DIFFon 07-12-2021 BASO # 0.0 103/ul Normal 0.0-0.1 [facility] Comment on above: Performed By: #### C BC #### [facility] [address] [place] [address] Dr. Kalyn Gutierrez Basophils/100 WBC (Bld) 0.4 % Normal 0.2-2.0 [facility] Comment on above: Performed By: #### C BC #### [facility] [address] [address] [address] Kalyn Gutierrez EO # 0.0 103/ul Normal 0.0-0.7 [facility] Comment on above: Performed By: #### C BC #### [facility] [address] [address] [address] Kalyn Gutierrez Eosinophils/100 WBC (Bld) 0.0 % Critically low 0.9-7.0 [facility] Comment on above: Performed By: #### C BC #### [facility] [address] [place] [address] Dr. Kalyn Gutierrez Erythrocyte distribution width (RBC) [Ratio] 12.8 % Normal 11.0-15.0 [facility] Comment on above: Performed By: #### C BC #### [facility] [address] [place] [address] Dr. Kalyn Gutierrez Hematocrit (Bld) [Volume fraction] 38.8 % Normal 36.0-48.0 [facility] Comment on above: Performed By: #### C BC #### [facility] [address] [place] [address] Dr. Kalyn Gutierrez Hemoglobin (Bld) [Mass/Vol] 12.4 g/dL Normal 12.0-16.0 [facility] Comment on above: Performed By: #### C BC #### [facility] [address] [place] [address] Dr. Kalyn Gutierrez IG # 0.02 10e3/ul Normal 0.00-0.03 [facility] Comment on above: Performed By: #### C BC #### [facility] [address] [place] [address] Dr. Kalyn Gutierrez IG % 0.3 % Normal 0.0-0.5 [facility] Comment on above: Performed By: #### C BC #### [facility] [address] [place] [address] Dr. Kalyn Gutierrez LYMPH # 1.8 103/ul Normal 1.2-3.8 [facility] Comment on above: Performed By: #### C BC #### [facility] [address] [place] [address] Dr. Kalyn Gutierrez Lymphocytes/100 WBC (Bld) 25.0 % Normal 20.5-60.0 [facility] Comment on above: Performed By: #### C BC #### [facility] [address] [place] [address] Dr. Kalyn Gutierrez MANUAL DIFF REQ NO Normal [facility] Comment on above: Performed By: #### C BC #### [facility] [address] [place] [address] Dr. Kalyn Gutierrez MCH (RBC) [Entitic mass] 28.2 pg Normal 26.7-34.0 [facility] Comment on above: Performed By: #### C BC #### [facility] [address] [place] [address] Dr. Kalyn Gutierrez MCHC (RBC) [Mass/Vol] 32.0 g/dL Normal 29.9-35.2 [facility] Comment on above: Performed By: #### C BC #### [facility] [address] [place] [address] Dr. Kalyn Gutierrez MCV (RBC) [Entitic vol] 88.4 fL Normal 81.0-99.0 [facility] Comment on above: Performed By: #### C BC #### [facility] [address] [place] [address] Dr. Kalyn Gutierrez MONO # 0.6 103/ul Normal 0.3-0.8 [facility] Comment on above: Performed By: #### C BC #### [facility] [address] [place] [address] Dr. Kalyn Gutierrez Monocytes/100 WBC (Bld) 8.7 % Normal 1.7-12.0 [facility] Comment on above: Performed By: #### C BC #### [facility] [address] [place] [address] Dr. Kalyn Gutierrez NEUT # 4.8 103/ul Normal 1.4-6.5 [facility] Comment on above: Performed By: #### C BC #### [facility] [address] [place] [address] Dr. Kalyn Gutierrez Neutrophils/100 WBC (Bld) 65.6 % Normal 43.0-75.0 [facility] Comment on above: Performed By: #### C BC #### [facility] [address] [place] [address] Dr. Kalyn Gutierrez Platelet mean volume (Bld) [Entitic vol] 12.3 fL Normal 9.5-13.5 [facility] Comment on above: Performed By: #### C BC #### [facility] [address] [place] [address] Dr. Kalyn Gutierrez PLT 183 103/ul Normal 150-450 [facility] Comment on above: Performed By: #### C BC #### [facility] [address] [place] [address] Dr. Kalyn Gutierrez RBC 4.39 106/ul Normal 4.20-5.40 [facility] Comment on above: Performed By: #### C BC #### [facility] [address] [address] [address] Kalyn Gutierrez WBC 7.3 103/ul Normal 4.0-11.0 [facility] Comment on above: Performed By: #### C BC #### [facility] [address] [address] [address] Kalyn Gutierrez PREG QUANT HCGon 07-12-2021 HCG QUANT <1 Normal [facility] Comment on above: Performed By: #### P REGQNT #### [facility] [address] [address] [address] Kalyn Gutierrez HCG RANGE SEE BELOW Normal [facility] Comment on above: Result Comment: 5-50 0-1 WEEK 40-300 1-2 WEEKS 100-1,000 2-3 WEEKS 500-6,000 3-4 WEEKS 5,000-200,000 1-2 MONTHS 10,000-100,000 2-3 MONTHS 3,000-50,000 2ND TRIMESTER 1,000-50,000 3RD TRIMESTER Performed By: #### P REGQNT #### [facility] [address] [place] [address] Dr. Kalyn Gutierrez US PELVIS AND TRANSVAGon [...] NOEMI KRISHNA Date: 2021-06-22 09:10 Normal [facility] DIGITAL DIAG MAMM BILAT WITH TOMOon 06-21-2021 DIGITAL DIAG MAMM BILAT WITH SUSANA Patient Name: MICHAEL WELLER STUDY: DIGITAL DIAG MAMM BILAT WITH SUSANA; BREAST ULTRASOUND; 06/21/2021 3:05 pm; 06/21/2021 3:31 pm ACCESSION NUMBER(S): [id number]; [id number] ORDERING CLINICIAN: RAFAELA ARGUELLO INDICATION: Right breast [...] breast ultrasound was performed by a registered trailer steerer utilizing elastography. The irregular hypoechoic parallel mass [...] any future breast imaging appointments, please call [phone] ([phone]). Patient letter sent SAAPPR Electronically signed by: MOHAN ROMANO MD Normal [facility] IO UA (automated w/o microsc opy)on 06-21-2021 Protein (U) [Mass/Vol] Negative [facility] Work Phone: IO UA (automated w/o microscopy) Negative [facility] Work Phone: IO UA (automated w/o microscopy) Normal (0.2-1.0 mg/dl) [facility] Work Phone: IO UA (automated w/o microscopy) 6.5 1 [facility] Work Phone: IO UA (automated w/o microscopy) 1.025 1 [facility] Work Phone: IO UA (automated w/o microscopy) Clear [facility] Work Phone: IO UA (automated w/o microscopy) Yellow [facility] Work Phone: IO Ultrasound, measurement p ost-void resid urine and/or bl cap; no imagon 06-21-2021 IO Ultrasound, measurement post-void resid urine and/or bl cap; no imag 0 mL [facility] Work Phone: Radiologyon 06-21-2021 MG Breast Diagnostic Please click on the link to view the study images Normal [facility] Work Phone: MG Breast Diagnostic Normal [facility] 200 Work Phone: Tobacco Screening.on 022 Fall risk assessment a) No falls within the last year [facility] Work Phone: Tobacco use status CPHS b) No [facility] Work Phone: ULTRASOUND LIMITED BREASTon 06-21-2021 ULTRASOUND LIMITED BREAST Patient Name: MICHAEL WELLER STUDY: DIGITAL DIAG MAMM BILAT WITH SUSANA; BREAST ULTRASOUND; 06/21/2021 3:05 pm; 06/21/2021 3:31 pm ACCESSION NUMBER(S): [id number]; [id number] ORDERING CLINICIAN: RAFAELA ARGUELLO INDICATION: Right breast [...] breast ultrasound was performed by a registered trailer steerer utilizing elastography. The irregular hypoechoic parallel mass [...] any future breast imaging appointments, please call [phone] ([phone]). Patient letter sent SAAPPR Electronically signed by: MOHAN ROMANO MD Normal [facility] [place] 06-21-2021 MG Breast Screening Normal [facility] Work Phone: IO UA (automated w/o microsc opy)on 06-04-2021 Protein (U) [Mass/Vol] Negative IT-WNTG-Hdvxbb ke 200 Work Phone: IO UA (automated w/o microscopy) Negative KI-OQLN-Pnwhwo ke 200 Work Phone: IO UA (automated w/o microscopy) Normal [facility]-Pwhnbg ke 200 Work Phone: IO UA (automated w/o microscopy) 7.0 1 GD-SXNP-Ihimnu ke 200 Work Phone: IO UA (automated w/o microscopy) 1.020 1 UX-ONMU-Mqladt ke 200 Work Phone: IO UA (automated w/o microscopy) Clear VL-XCFT-Ocngqq ke 200 Work Phone: IO UA (automated w/o microscopy) Yellow KB-IZPR-Dzvwbx ke 200 Work Phone: Tobacco Screening.on 022 Adult depression screening assessment No [facility]-Luiz broussarda ke [address] Work Phone: Fall risk assessment a) No falls within the last year KG-EHLB-Vmdncb ke 200 Work Phone: Last menstrual period start date 14May2021 FE-ZXXL-Umdhlf ke 200 Work Phone: Tobacco use status CPHS b) No BR-OSBV-Rdmmea ke 200 Work Phone: PAP ACOG PANEL 2: 30 to 65on 03-28-2021 . . Normal [facility] Comment on above: Result Comment: Perf ormed at: WB Performed By: #### [id number] #### [facility] [address] [place] [address] Dr. Kalyn Gutierrez Age Gdln ACOG Testing 30-65 Normal [facility] Comment on above: Performed By: #### [id number] #### [facility] [address] [place] [address] Dr. Kalyn Gutierrez DIAGNOSIS: Comment [facility] Comment on above: Result Comment: NEGA TIVE FOR INTRAEPITHELIAL LESION OR MALIGNANCY. Performed at: WB Performed By: #### [id number] #### [facility] [address] [place] [address] Dr. Kalyn Gutierrez HPV Aptima Negative Normal Negative [facility] Comment on above: Result Comment: This nucleic acid amplification test detects fourteen high-risk HPV types (16,18,31,33,35,39,45,51,52,56,58,59,66,68) without differentiation. Performed at: =G Performed By: #### [id number] #### [facility] [address] [place] [address] Dr. Kalyn Gutierrez Methodology: Comment Normal [facility] Comment on above: Result Comment: This liquid based ThinPrep(R) pap test was screened with the use of an image guided system. Performed at: WB Performed By: #### [id number] #### [facility] [address] [place] [address] Dr. Kalyn Gutierrez Note: Comment Normal [facility] Comment on above: Result [...] Performed at: WB Performed By: #### [id number] #### [facility] [address] [place] [address] Dr. Kalyn Gutierrez Performed by: Comment Normal [facility] Comment on above: Result Comment: Tawnya Del Rio, Senior Clinical Data Manager (ASCP) Performed at: WB Performed By: #### [id number] #### [facility] [address] [place] [address] Dr. Kalyn Gutierrez Specimen adequacy: Comment Normal [facility] Comment on above: Result Comment: Sati sfactory for evaluation. Endocervical and/or squamous metaplastic cells (endocervical component) are present. Performed at: WB Performed By: #### [id number] #### [facility] [address] [place] [address] Dr. Kalyn Gutierrez Vital Signs Date Time Vital Sign Value Performing Clinician Facility 08-02-2024 09:22-0400 Body mass index (BMI) [Ratio] 39.44 kg/m2 Matt Daya DO Work Phone: [facility] 08-02-2024 09:22-0400 Body weight 107.5 kg Matt Daya DO Work Phone: [facility] 08-02-2024 09:22-0400 Diastolic blood pressure 82 mm[Hg] Matt Daya DO Work Phone: [facility] 08-02-2024 09:22-0400 Systolic blood pressure 120 mm[Hg] Matt Daya DO Work Phone: [facility] 07-12-2024 11:14-0400 Body mass index (BMI) [Ratio] 39.61 kg/m2 Matt Daya DO Work Phone: [facility] 07-12-2024 11:14-0400 Body weight 107.96 kg Matt Daya DO Work Phone: [facility] 07-12-2024 11:14-0400 Diastolic blood pressure 74 mm[Hg] Matt Daya DO Work Phone: [facility] 07-12-2024 11:14-0400 Systolic blood pressure 122 mm[Hg] Matt Daay DO Work Phone: [facility] 06-20-2024 10:21-0400 Body mass index (BMI) [Ratio] 39.11 kg/m2 Matt Daya DO Work Phone: [facility] 06-20-2024 10:21-0400 Body weight 106.59 kg Matt Daya DO Work Phone: [facility] 06-20-2024 10:21-0400 Diastolic blood pressure 72 mm[Hg] Matt Daya DO Work Phone: [facility] 06-20-2024 10:21-0400 Systolic blood pressure 120 mm[Hg] Matt Daya DO Work Phone: [facility] 04-14-2024 15:19-0500 Body mass index (BMI) [Ratio] 35.91 kg/m2 Merary Wilcox PA Work Phone: [facility] 04-14-2024 15:19-0500 Body weight 97.89 kg Merary Wilcox PA Work Phone: [facility] 04-14-2024 15:19-0500 Diastolic blood pressure 70 mm[Hg] Merary Wilcox PA Work Phone: [facility] 04-14-2024 15:19-0500 Systolic blood pressure 110 mm[Hg] Merary Wilcox PA Work Phone: [facility] 03-16-2024 16:18-0500 Body mass index (BMI) [Ratio] 34.58 kg/m2 Matt Daya DO Work Phone: [facility] 03-16-2024 16:18-0500 Body weight 94.26 kg Matt Daya DO Work Phone: [facility] 03-16-2024 16:18-0500 Diastolic blood pressure 72 mm[Hg] Matt Daya DO Work Phone: [facility] 03-16-2024 16:18-0500 Systolic blood pressure 116 mm[Hg] Matt Daya DO Work Phone: [facility] 01-05-2024 11:51-0400 Body mass index (BMI) [Ratio] 30.45 kg/m2 Maryann Davison Work Phone: [facility] 01-05-2024 11:51-0400 Body temperature 98.2 [degF] Maryann Mic-Sachin Work Phone: [facility] 01-05-2024 11:51-0400 Body weight 83.01 kg Maryann Mic-Sachin Work Phone: [facility] 01-05-2024 11:51-0400 Diastolic blood pressure 76 mm[Hg] Maryann Mic-Sachin Work Phone: [facility] 01-05-2024 11:51-0400 Heart rate 74 /min Maryann Davison Work Phone: [facility] 01-05-2024 11:51-0400 Respiratory rate 18 /min Maryann Davison Work Phone: [facility] 01-05-2024 11:51-0400 SaO2% (BldA) [Mass fraction] 98 % Maryann Davison Work Phone: [facility] 01-05-2024 11:51-0400 Systolic blood pressure 119 mm[Hg] Maryann Davison Work Phone: [facility] 09-05-2023 13:24-0400 Body height 165.1 cm [facility] 09-05-2023 13:24-0400 Body mass index (BMI) [Ratio] 29.2 kg/m2 [facility] 09-05-2023 13:24-0400 Body temperature 97.9 [degF] [facility] 09-05-2023 13:24-0400 Body weight 79.83 kg [facility] 09-05-2023 13:24-0400 Diastolic blood pressure 85 mm[Hg] [facility] 09-05-2023 13:24-0400 Heart rate 106 /min [facility] 09-05-2023 13:24-0400 Respiratory rate 18 /min [facility] 09-05-2023 13:24-0400 SaO2% (BldA) [Mass fraction] 96 % [facility] 09-05-2023 13:24-0400 Systolic blood pressure 120 mm[Hg] [facility] 07-22-2023 14:37-0400 Body height 165.1 cm Jhonny Issa MD Work Phone: [facility] 07-22-2023 14:37-0400 Body mass index (BMI) [Ratio] 30.72 kg/m2 Jhonny Issa MD Work Phone: [facility] 07-22-2023 14:37-0400 Body weight 83.73 kg Jhonny Issa MD Work Phone: [facility] 07-22-2023 14:37-0400 Diastolic blood pressure 78 mm[Hg] Jhonny Issa MD Work Phone: [facility] 07-22-2023 14:37-0400 Heart rate 111 /min Jhonny Issa MD Work Phone: [facility] 07-22-2023 14:37-0400 Systolic blood pressure 118 mm[Hg] Jhonny Issa MD Work Phone: [facility] 04-27-2023 15:40-0500 Body height 165.1 cm Jhonny Issa MD Work Phone: [facility] 04-27-2023 15:40-0500 Body mass index (BMI) [Ratio] 34.15 kg/m2 Jhonny Issa MD Work Phone: [facility] 04-27-2023 15:40-0500 Body weight 93.08 kg Jhonny Issa MD Work Phone: [facility] 04-27-2023 15:40-0500 Diastolic blood pressure 60 mm[Hg] Jhonny Issa MD Work Phone: [facility] 04-27-2023 15:40-0500 Heart rate 123 /min Jhonny Issa MD Work Phone: [facility] 04-27-2023 15:40-0500 Respiratory rate 14 /min Jhonny Issa MD Work Phone: [facility] 04-27-2023 15:40-0500 Systolic blood pressure 104 mm[Hg] Jhonny Issa MD Work Phone: [facility] 02-19-2023 10:39-0500 Body height 165.1 cm Jhonny Issa MD Work Phone: [facility] 02-19-2023 10:39-0500 Body mass index (BMI) [Ratio] 36.08 kg/m2 Jhonny Issa MD Work Phone: [facility] 02-19-2023 10:39-0500 Body weight 98.34 kg Jhonny Issa MD Work Phone: [facility] 02-19-2023 10:39-0500 Diastolic blood pressure 83 mm[Hg] Jhonny Issa MD Work Phone: [facility] 02-19-2023 10:39-0500 Heart rate 94 /min Jhonny Issa MD Work Phone: [facility] 02-19-2023 10:39-0500 Systolic blood pressure 117 mm[Hg] Jhonny Issa MD Work Phone: [facility] 07-02-2022 13:20-0400 Body height 165.1 cm Bolivar Sherman Other [employer] Other 07-02-2022 13:20-0400 Body mass index (BMI) [Ratio] 33.28 kg/m2 Bolivar Sherman Other [employer] Other 07-02-2022 13:20-0400 Body weight 90.72 kg Bolivar Sherman Other [employer] Other 07-02-2022 13:20-0400 Diastolic blood pressure 78 mm[Hg] Bolivar Sherman Other [employer] Other 07-02-2022 13:20-0400 Respiratory rate 18 /min Bolivar Sherman Other [employer] Other 07-02-2022 13:20-0400 SaO2% (BldA) [Mass fraction] 99 % Bolivar Sherman Other [employer] Other 07-02-2022 13:20-0400 Systolic blood pressure 117 mm[Hg] Bolivar Sherman Other [employer] Other 10-14-2021 15:07-0400 Diastolic blood pressure 98 mm[Hg] [facility] Work Phone: 10-14-2021 15:07-0400 Heart rate 103 /min [facility] Work Phone: 10-14-2021 15:07-0400 Systolic blood pressure 132 mm[Hg] [facility] Work Phone: 06-21-2021 08:13-0400 Body height 165.1 cm Rafaela Arguello Work Phone: [facility] Work Phone: 06-21-2021 08:13-0400 Body mass index (BMI) [Ratio] 33.28 kg/m2 Rafaela Arguello Work Phone: [facility] Work Phone: 06-21-2021 08:13-0400 Body surface area Derived from formula 1.98 m2 Rafaela Arguello Work Phone: [facility] Work Phone: 06-21-2021 08:13-0400 Body temperature 97.2 [degF] Rafaela Arguello Work Phone: [facility] Work Phone: 06-21-2021 08:13-0400 Body weight 90.72 kg Rafaela Arguello Work Phone: [facility] Work Phone: 06-21-2021 08:13-0400 Diastolic blood pressure 82 mm[Hg] Rafaela Arguello Work Phone: [facility] Work Phone: 06-21-2021 08:13-0400 Heart rate 89 /min Rafaela Arguello Work Phone: [facility] Work Phone: 06-21-2021 08:13-0400 Systolic blood pressure 115 mm[Hg] Rafaela Arguello Work Phone: [facility] Work Phone: 06-04-2021 13:05-0400 Body height 167.64 cm Rafaela Arguello Work Phone: CC-KBMB-Lzokaixd 200 Work Phone: 06-04-2021 13:05-0400 Body mass index (BMI) [Ratio] 32.77 kg/m2 Rafeala Arguello Work Phone: ZS-CKJG-Hjnzonvo 200 Work Phone: 06-04-2021 13:05-0400 Body surface area Derived from formula 2.01 m2 Rafaela Arguello Work Phone: AC-HVJL-Kvsfukzb 200 Work Phone: 06-04-2021 13:05-0400 Body temperature 98.2 [degF] Rafaela Arguello Work Phone: VC-SHLD-Piyhncnt 200 Work Phone: 06-04-2021 13:05-0400 Body weight 92.08 kg Rafaela Arguello Work Phone: PD-VMAM-Ffcnyhqe 200 Work Phone: 06-04-2021 13:05-0400 Diastolic blood pressure 76 mm[Hg] Rafaela Arguello Work Phone: UX-HSUQ-Wkermham 200 Work Phone: 06-04-2021 13:05-0400 Heart rate 80 /min Rafaelalaron Arguello Work Phone: PR-TSVQ-Kkvrgmhr 200 Work Phone: 06-04-2021 13:05-0400 Respiratory rate 16 /min Rafaela Arguello Work Phone: QL-LQZG-Vfjxqmte 200 Work Phone: 06-04-2021 13:05-0400 Systolic blood pressure 122 mm[Hg] Rafaela Arguello Work Phone: UG-ERUE-Ylszujof 200 Work Phone: 12-07-2019 11:03-0400 BMI (Body Mass Index) 31.95 kg/m2 Rafaela Arguello FN-ETXW-Sezdrhah 200 Work Phone: 12-07-2019 11:03-0400 Body Temperature 98.3 [degF] Rafaela Arguello XE-IJTW-Bndemiy e 200 Work Phone: Comment on above: Method: 12-07-2019 11:03-0400 Body weight 87.77 kg Rafaela Arguello ZA-FREV-Aeayzywl 200 Work Phone: 12-07-2019 11:03-0400 BP Diastolic 74 mm[Hg] Rafaela Arguello LK-SBEJ-Rawqmxuv 200 Work Phone: 12-07-2019 11:03-0400 BP Systolic 118 mm[Hg] Rafaela Arguello NG-WRQP-Bmtvxhgh 200 Work Phone: 12-07-2019 11:03-0400 BSA (Body Surface Area) 1.96 m2 Rafaela Arguello BG-CQJC-Itblwsfx 200 Work Phone: 12-07-2019 11:03-0400 Height 165.74 cm Rafaela Arguello RP-ARSD-Qefwazyc 200 Work Phone: 12-07-2019 11:03-0400 Pulse (Heart Rate) 84 /min Rafaela Arguello CZ-JWPI-Uepqo mayur 200 Work Phone: 12-07-2019 11:03-0400 Respiratory [...] Date Encounter Type Care Provider Facility Start: 08-12-2024 End: 08-12-2024 Clinisync Result Encounter Matt Daya DO Work Phone: [facility] External [facility] Unsolicited Start: 08-12-2024 End: 08-12-2024 Clinisync Result Encounter Matt Daya DO Work Phone: [facility] External Department Unsolicited Start: 08-09-2024 End: 08-09-2024 ambulatory MATT DAYA Not Available Start: 08-09-2024 End: 08-09-2024 ambulatory IGNACIA DAVE [facility] Start: 08-06-2024 End: 08-06-2024 Clinisync Result Encounter Matt Daya DO Work Phone: [facility] External Department Unsolicited Start: 08-06-2024 End: 08-06-2024 Clinisync Result Encounter Matt Daya DO Work Phone: [facility] External Department Unsolicited Start: 08-03-2024 End: 08-04-2024 Chart abstracting Scanning Provider External [facility]- Medicine at [facility] Start: 08-02-2024 End: 08-02-2024 Bamboo flowsheet Matt Daya DO Work Phone: [facility] Start: 08-02-2024 End: 08-02-2024 Bamboo flowsheet Matt Daya DO Work Phone: [facility] Start: 08-02-2024 End: 08-02-2024 flow sheet Matt Daya DO Work Phone: [facility] Comment on above: 31 weeks gestation o f ; Third trimester ; Gestational diabetes mellitus (GDM), antepartum, gestational diabetes method of control unspecified Start: 08-02-2024 End: 08-02-2024 ambulatory MATT DAYA Not Available Start: 07-12-2024 End: 07-12-2024 flow sheet Matt Daya DO Work Phone: [facility] Comment on above: Third trimester preg isabella; 28 weeks gestation of ; Multigravida of advanced maternal age in third trimester; Gestational diabetes mellitus (GDM), antepartum, gestational diabetes method of control unspecified; Elevated glucose tolerance test Start: 07-12-2024 End: 07-12-2024 ambulatory MATT DAYA Not Available Start: 06-30-2024 End: 06-30-2024 Clinisync Result Encounter Matt Daya DO Work Phone: [facility] External Department Unsolicited Start: 06-30-2024 End: 06-30-2024 Clinisync Result Encounter Matt Daya DO Work Phone: [facility] External Department Unsolicited Start: 06-20-2024 End: 06-20-2024 Bamboo flowsheet Matt Daya DO Work Phone: [facility] Start: 06-20-2024 End: 06-20-2024 Bamboo flowsheet Matt Daya DO Work Phone: [facility] Start: 06-20-2024 End: 06-20-2024 ambulatory MATT DAYA Not Available Start: 06-20-2024 End: 06-20-2024 flow sheet Matt Daya DO Work Phone: [facility] Comment on above: Diabetes mellitus sc reening; 25 weeks gestation of ; Second trimester ; Antepartum multigravida of advanced maternal age Start: 05-23-2024 End: 05-23-2024 ambulatory MATT DAYA Not Available Start: 05-03-2024 End: 05-06-2024 Clinisync Result Encounter Merary MCBRIDE Work Phone: [facility] External Department Unsolicited Start: 05-03-2024 End: 05-06-2024 Clinisync Result Encounter Merary MCBRIDE Work Phone: [facility] External Department Unsolicited Start: 04-14-2024 End: 04-14-2024 ambulatory MERARY WILCOX Not Available Start: 04-14-2024 End: 04-14-2024 Patient encounter procedure Merary MCBRIDE Work Phone: [facility] Start: 04-14-2024 End: 04-14-2024 Periodic preventive med est patient 18-39 yrs Merary MCBRIDE Work Phone: [facility] Comment on above: 15 weeks gestation o f ; Second trimester ; Well woman exam with routine gynecological exam; Screening, , for anatomic survey; Exposure to STD; Vaginal discharge; Nausea Start: 04-14-2024 End: 04-14-2024 Bamboo flowsheet Merary MCBRIDE Work Phone: [facility] Start: 04-14-2024 End: 04-14-2024 Bamboo flowsheet Merary MCBRIDE Work Phone: [facility] Start: 03-16-2024 [...] Start: 03-08-2024 End: 03-08-2024 ambulatory Matt Daya Facility:[facility] Start: 03-08-2024 End: 03-08-2024 Departed Referred Matt Daya DO Work Phone: [facility] Start: [...] minutes Maryann Davison Work Phone: [facility] [place] Comment on above: Acute lower UTI (Adrianna eulogio Dx); Urine frequency Start: 10-20-2023 End: 10-26-2023 Clinisync Result Encounter Matt Daya DO Work Phone: [facility] External [facility] Unsolicited Start: 10-20-2023 End: 10-26-2023 Clinisync Result Encounter Matt Daya DO Work Phone: [facility] External Department Unsolicited Start: 10-20-2023 End: 10-20-2023 ambulatory MATT DAYA Not Available Start: 09-05-2023 End: 09-05-2023 Departed Referred DISH ROOM WORKER Swetha Andersen Work Phone: [facility] 250 Start: 09-05-2023 End: 09-05-2023 ambulatory PHYSICIAN NO [facility] Work Phone: Start: 09-05-2023 End: 09-05-2023 Patient encounter procedure Counts Include [facility] Amandeep Work Phone: Start: 09-01-2023 End: 09-01-2023 ambulatory ROULA BLEDSOE Facility:[facility] Start: 09-01-2023 End: 09-01-2023 Patient encounter procedure Roula Bledsoe [employer] Work Phone: [facility] [place] Comment on above: Dermatofibroma (Prim ottoniel Dx); Lentigines; Multiple benign nevi; Valles angioma; Hx of malignant melanoma Start: 07-22-2023 End: 07-22-2023 ambulatory [facility] Ambulatory Start: 07-22-2023 End: 07-22-2023 Office outpatient visit 25 minutes Jhonny Issa MD Work Phone: [facility] Comment on above: Encephalopathy (Prim ottoniel Dx); Attention deficit hyperactivity disorder (ADHD), predominantly inattentive type; Insomnia due to medical condition; Anxiety Start: 04-27-2023 End: 04-27-2023 ambulatory [facility] Ambulatory Start: 04-27-2023 End: 04-27-2023 Office outpatient visit 25 minutes Jhonny Issa MD Work Phone: [facility] Comment on above: Encephalopathy (Prim ottoniel Dx); Attention deficit hyperactivity disorder (ADHD), predominantly inattentive type; Insomnia due to medical condition; Anxiety Start: 03-04-2023 End: 03-04-2023 ambulatory [facility] Ambulatory Start: 03-04-2023 End: 03-04-2023 Office outpatient visit 15 minutes Karolina Man DO Work Phone: [facility] Comment on above: Anxiety Start: 02-19-2023 End: 02-19-2023 ambulatory [facility] Ambulatory Start: 02-19-2023 End: 02-19-2023 Office outpatient new 60 minutes Jhonny Issa MD Work Phone: [facility] Comment on above: Encephalopathy (Prim ottoniel Dx); Anxiety; Attention deficit hyperactivity disorder (ADHD), predominantly inattentive type Start: 12-19-2022 End: 12-19-2022 Subsequent hospital visit by physician Martha Breast Ultrasound [facility] Comment on above: Lump in female breas t Start: 12-19-2022 End: 12-19-2022 ambulatory [facility] Start: 12-19-2022 End: 12-19-2022 ambulatory KAROLINA Cota [facility] Start: 12-19-2022 End: 12-19-2022 Subsequent hospital visit by physician Martha Harris 1 [facility] Comment on above: Abnormal mammogram Start: 12-03-2022 End: 12-03-2022 ambulatory KAROLINA Cota [facility] Ambulatory Start: 10-16-[address] Work Phone: [facility] Work Phone: Start: 07-02-2022 Office outpatient vi sit 25 minutes [facility] Start: 07-02-2022 End: 07-02-2022 ambulatory DO Danielle Infante Work Phone: [facility] Work Phone: Start: 07-02-2022 End: 07-02-2022 Patient encounter procedure DO Danielle Infante Work Phone: [facility] 250 Start: 04-14-2022 Rx Renew[address] Work Phone: ZH-OXJP-Hrlmdbbh 200 Work Phone: Start: 03-17-2022 Rx Renewal Rafaela [address]abria rd Work Phone: KC-KIFB-Iyopwezz 200 Work Phone: Start: 02-10-2022 ambulatory Ms. Rafaela hyatt Hema Facility:[id number] Start: 02-10-2022 Office outpatient vi sit 25 minutes Rafaela Arguello Work Phone: FT-HRLY-Xbetzzrq 200 Work Phone: Start: 10-30-2021 Rx Renewal Rafaela Sanabria rd Work Phone: TO-XNOC-Hnvkzcje 200 Work Phone: Start: 10-17-2021 End: 10-17-2021 Patient encounter procedure Roula Bledsoe APRN.[employer] Work Phone: [facility] [place] Comment on above: Lentigines (Primary Dx); Multiple benign nevi; Valles angioma; Exposure to tanning bed, sequela; Hx of malignant melanoma; Dermatofibroma Start: 10-14-2021 Office consultation new/estab patient 60 min Rafalea Arguello Work Phone: [facility] Work Phone: Start: 10-14-2021 Patient encounter procedure Rafaela Arguello Work Phone: [facility] Work Phone: Start: 10-08-2021 Office outpatient vi sit 25 minutes Rafaela Arguello Work Phone: [facility] 200 Work Phone: Start: 10-08-2021 ambulatory Ms. Russo Cierra Arguello Facility:[id number] Start: 10-07-2021 End: 10-07-2021 Departed Referred DO Danielle Infante Work Phone: [facility] Start: 10-02-2021 Rx Renewal Rafaela Sanabria rd Work Phone: TA-FLRT-Dwbdudit 200 Work Phone: Start: 09-06-2021 Patient encounter procedure [facility]guello [facility] Work Phone: Start: 09-06-2021 ambulatory Ms. Rafaela Norton edmar Arguello Facility:[id number] Start: 07-12-2021 End: 07-12-2021 ambulatory NONE LISTED REQUEST Facility:H1 Start: 07-11-2021 Encounter for preprocedural cardiovascular examination DR MATT STAPLETON [facility] Start: 07-10-2021 End: 07-11-[address] MATT STAPLETON Facility:H1 Start: 07-10-2021 End: 07-11-2021 Encounter for preprocedural cardiovascular examination DR MATT STAPLETON Facility:H1 Start: 07-09-[address] MATT STAPLETON Facility :H1 Start: 07-01-[address] Work Phone: JN-DZCM-Ypwxevcv 200 Work Phone: Start: 06-28-2021 Chart Update Rafaela E Elly avalos Work Phone: EA-WAPH-Jqcyyxwd 200 Work Phone: Start: 06-27-2021 AUDIT Rafaela Shira Elly avalos Work Phone: AJ-OXSO-Xmiimcuo 200 Work Phone: Start: 06-21-2021 End: 06-22-[address] MATT STAPLETON Facility:H1 Start: 06-04-2021 Office outpatient vi sit 25 minutes Rafaela Arguello Work Phone: BA-ZCMT-Rgpzskob 200 Work Phone: Start: 06-04-2021 Patient encounter procedure Rafaela Arguello Work Phone: BH-JLOG-Awunnutx 200 Work Phone: Start: 06-04-2021 ambulatory Ms. Rafaela hyatt Hema Facility:[id number] Start: 03-25-2021 End: 03-25-[address] MATT STAPLETON Facility:H1 Start: 12-07-2019 Patient encounter procedure Rafaela Hema JR-QOOK-Mepsuxvw 200 Work Phone: Start: 05-16-2019 Patient encounter procedure Rafaela Arguello JH-YPVH-Puch [facility] Work Phone: Start: 09-27-2018 Patient encounter procedure Rafaelalaron Arguello HG-GOTM-Zvkx [facility] Work Phone: Start: 09-14-2018 Patient encounter procedure Rafaela Arguello GB-TVWZ-Gnin [facility] Work Phone: Start: 07-17-2017 Patient encounter procedure Rafaela Arguello XB-HXOM-Iiej [facility] Work Phone: Procedures Date Procedure Procedure Detail Performing Clinician Start: 08-12-2024 OB BPP W NON-STRESS Matt Daya DO Work Phone: Start: 08-12-2024 ALL CBC WITH AUTO DIFF Matt Daya DO Work Phone: Start: 08-06-2024 OB BPP W NON-STRESS Matt Daya DO Work Phone: Start: 08-02-2024 Urnls dip stick/tabl et rgnt non-auto w/o micrscp Matt Daya DO Work Phone: Start: 07-12-2024 Urnls dip stick/tabl et rgnt non-auto w/o micrscp Matt Daya DO Work Phone: Start: 06-30-2024 Blood count platelet automated Not In System Ref Prov Start: 06-30-2024 ALL CBC WITH AUTO DIFF Matt Daya DO Work Phone: Start: 06-20-2024 Urnls dip stick/tabl et rgnt non-auto w/o micrscp Matt Daya DO Work Phone: Start: 05-03-2024 AFP, SERUM, OPEN SPI NA BIFIDA Merary MCBRIDE Work Phone: Start: 04-14-2024 Urnls dip stick/tabl et rgnt non-auto w/o micrscp Merary MCBRIDE Work Phone: Start: 03-16-2024 Urnls dip stick/tabl et rgnt non-auto w/o micrscp Matt Daya DO Work Phone: Start: 03-08-2024 Blood count complete automated Not In System Ref Prov Start: 03-08-2024 Drug scrn 1+ class nonchromo Not In System Ref Prov Start: 03-08-2024 Hepatitis c antibody No t In System Ref Prov Start: 03-08-2024 HIV 1&2 AB/AG SCREEN (P24 AG) Not In System Ref Prov Start: 03-08-2024 Iaad ia hepatitis b surface antigen Not In System Ref Prov Start: 03-08-2024 SYPHILIS TOTAL(UNKNO WN SYPHILIS STATUS) Not In System Ref Prov Start: 03-08-2024 TYPE AND SCREEN Not In System Ref Prov Start: 03-08-2024 MLR HEMOGLOBIN A1C Core y [...] Start: 12-19-2022 Diagnostic mammograp hy computer-aided detcj ogpal Man DO Work Phone: Start: 12-03-2022 Comprehensive [...] f 2) Zoster Vaccines (1 of 2) [facility] Start: 10-19-2028 Screening for malignant neoplasm [facility] cervix [facility] Start: 10-18-2027 Screening for malignant neoplasm of cervix [facility] Start: 10-19-2026 Screening for malignant neoplasm of cervix [facility] Start: 10-17-2025 Screening for malignant neoplasm of cervix [facility] Start: 04-23-2025 Lipid panel Lipid Panel [facility] Start: 11-07-2024 Influenza vaccination [facility] Start: 10-26-2024 End: 10-26-2024 Patient encounter procedure 10/26/2024 4:00 PM EDT Office Visit [facility] [address] [place] [address] Matt Stapleton, DO [address] [place] [address] [facility] Start: 08-17-2024 End: 08-17-2024 Patient encounter procedure 08/17/2024 11:00 AM EDT Routine [facility] [address] [facility] [address] [place] [id number] Matt Stapleton, [address] [place] [address] [facility] Start: 08-09-2024 End: 08-09-2024 Professional / ancillary services management 08/09/2024 3:00 PM EDT Ancillary Procedure [facility] [address] [phone] [facility] Start: 08-09-2024 End: 08-09-2024 ambulatory 08/09/2024 10:30 AM EDT Support Visit Maternal- Medicine at [facility] [address] [place] [address] Noelle Johnston RN [address] [place] [address] Ignacia Dave, [place] [address] [place] [address] [facility] at [facility] Start: 08-02-2024 End: 02-02-2025 US biophysical profile w non stress test US biophysical profile w non stress test Imaging Routine Gestational diabetes mellitus (GDM), antepartum, gestational diabetes method of control unspecified Expected: 08/02/2024 (Approximate), Expires: 02/02/2025 [facility] Work Phone: Comment on above: Expected: 08/02/2024 (Approximate), Expires: 02/02/2025 Start: 08-02-2024 End: 08-02-2024 Patient encounter procedure [facility] Comment on above: Arrived Start: 07-12-2024 End: 11-12-2024 US for US OB follow up transabdominal approach Imaging Routine 28 weeks gestation of Multigravida of advanced maternal age in third trimester Expected: 07/12/2024 (Approximate), Expires: 11/12/2024 [facility] Work Phone: Comment on above: Expected: 07/12/2024 (Approximate), Expires: 11/12/2024 Start: 07-12-2024 End: 07-12-2024 Patient encounter procedure 07/12/2024 11:10 AM EDT Routine [facility] [address] [place] [address] Matt Stapleton, [address] [place], [place] [id number] [facility] Start: 07-12-2024 End: 07-12-2024 Professional / ancillary services management 07/12/2024 10:30 AM EDT Ancillary Procedure [facility] [address] [place] [address] [facility] Start: 06-20-2024 End: 06-20-2025 CBC panel - Blood by Automated count CBC Lab Routine Diabetes mellitus screening Expected: 06/20/2024 (Approximate), Expires: 06/20/2025 [facility] Healthcare Work Phone: Comment on above: Expected: 06/20/2024 (Approximate), Expires: 06/20/2025 Start: 06-20-2024 End: 06-20-2025 Measurement of glucose 1 hour after glucose challenge for glucose tolerance test Glucose tolerance, 1 hour Lab Routine Diabetes mellitus screening Expected: 06/20/2024 (Approximate), Expires: 06/20/2025 [facility] Comment on above: Expected: 06/20/2024 (Approximate), Expires: 06/20/2025 Start: 06-20-2024 End: 10-20-2024 US for US OB follow up transabdominal approach Imaging Routine Antepartum multigravida of advanced maternal age Expected: 06/20/2024, Expires: 10/20/2024 [facility] Work Phone: Comment on above: Expected: 06/20/2024 , Expires: 10/20/2024 Start: 05-23-2024 End: 05-23-2024 Patient encounter procedure 05/23/2024 8:50 AM EDT Routine [facility] [address] [place] [address] Matt Stapleton DO [address] [facility] [address] [place], [place] [id number] [facility] Start: 05-23-2024 End: 05-23-2024 Professional / ancillary services management 05/23/2024 8:00 AM EDT Ancillary Procedure [facility] [address] [place] [address] [facility] Start: 04-14-2024 End: 04-14-2024 Patient encounter procedure 04/14/2024 3:50 PM EST Routine [facility] [address] [place] [address] Merary Wilcox PA [address] [place] [address] [facility] Start: 04-14-2024 End: 05-12-2024 [...] 03-25-2024 Screening for malignant neoplasm of cervix [facility] Start: 03-16-2024 End: 03-16-2024 Patient encounter procedure [facility] Comment on above: Arrived Start: 03-08-2024 Bacteria identified in Urine by Culture Urine Culture [facility] Start: 03-08-2024 Urine culture [facility] Start: 02-16-2024 End: 02-15-2025 ABO/Rh ABO/Rh Lab Routine Missed menses , unspecified gestational age Expected: 02/16/2024 (Approximate), Expires: 02/15/2025 [facility] Comment on above: Expected: 02/16/2024 (Approximate), Expires: 02/15/2025 Start: 02-16-2024 End: 02-15-2025 Blood type and Indirect antibody screen panel - Blood Type and screen Lab Routine Missed menses , unspecified gestational age Expected: 02/16/2024 (Approximate), Expires: 02/15/2025 [facility] Healthcare Work Phone: Comment on above: Expected: [...] Initial [facility] [address] [place] [address] [facility] Start: 02-16-2024 End: 02-16-2024 Professional / ancillary services management 02/16/2024 8:00 AM EST Ancillary Procedure [facility] [address] [place] [address] [facility] Start: 11-08-2023 COVID-19 Vaccine (3 - 2024-25 season) COVID-19 Vaccine ( season) [facility] Start: 11-08-2023 Influenza vaccination [facility] Start: 10-14-2023 End: 10-14-2023 Patient encounter procedure 10/14/2023 3:15 PM EDT Office Visit [facility] [address] [place] [phone] Jhonny Issa MD [address] [facility], [facility] [address] [place], [place] [phone] [facility] Start: 09-05-2023 Bacteria identified in Urine by Culture [facility] Start: 07-22-2023 End: 07-22-2023 Patient encounter procedure 07/22/2023 3:15 PM EDT Office Visit [facility] [address] [place] [phone] Jhonny Issa MD [address] [facility], [facility] [address] [place], [place] [phone] [facility] Start: 04-27-2023 End: 04-27-2023 Patient encounter procedure 04/27/2023 3:15 PM EST Office Visit [facility] [address] [facility] [address] [place] [phone] Jhonny Issa MD [address] [facility], [facility] [address] [place], [place] [phone] [facility] Start: 03-09-2023 Behavioral Health Screening Behavioral Health Screening [facility] Start: 03-04-2023 End: 03-04-2023 Patient encounter procedure 03/04/2023 8:40 AM EST Office Visit [facility] [id number] [phone] [place] [address] [facility] [address] [place] [address] [facility] Start: 02-19-2023 End: 02-20-2024 Drugs of abuse screen W Reflex confirm panel - Urine [facility] Service Area Work Phone: Comment on above: Expected: 02/19/2023 (Approximate), Expires: 02/20/2024 Start: 02-19-2023 End: 02-19-2023 Patient encounter procedure 02/19/2023 10:15 AM EST Office Visit [facility] [address] [facility] [address] [place] [address] Jhonny Issa MD [address] [facility], [facility] [address] [place], [place] [phone] [facility] Start: 11-07-2022 COVID-19 Vaccine ( season) COVID-19 Vaccine ( season) [facility] Start: 11-07-2022 Influenza vaccination Influenza Vacc ine (#1) [facility] Start: 01-21-2022 FUV, Provider: Luz Aguilar, Status: Pen, Time: 3:40 PM FUV, Provider: Luz Aguilar, Status: Pen, Time: 3:40 PM [id number] 200 Work Phone: Start: 01-20-2022 [id number], Provider: Bisi Prabhakar, Status: Pen, Time: 5:00 PM [id number], Provider: Bisi Prabhakar, Status: Pen, Time: 5:00 PM [facility] Work Phone: Start: 01-13-2022 [id number], Provider: Bisi Prabhakar, Status: Pen, Time: 5:00 PM [id number], Provider: Bisi Prabhakar, Status: Pen, Time: 5:00 PM [facility] [facility] Work Phone: Start: 01-08-2022 [id number], Provider: Bisi Prabhakar, Status: Pen, Time: 4:00 PM [id number], Provider: Bisi Prabhakar, Status: Pen, Time: 4:00 PM [facility] [facility] Work Phone: Start: 01-01-2022 [id number], Provider: [...] Phone: Start: 11-07-2021 Influenza vaccination INFLUENZA (#1) [facility] Start: 10-16-2021 NPV, Provider: Nafisa Bermudez, Status: Pen, Time: 1:00 PM NPV, Provider: Nafisa Bermudez, Status: Pen, Time: 1:00 PM [id number] 200 Work Phone: Start: 10-08-2021 [id number], Provider : Rafaela Arguello, Status: Pen, Time: 11:40 AM VIRFUVHOME, Provider: Rafaela Arguello, Status: Pen, Time: 11:40 AM [id number] 200 Work Phone: Start: 09-30-2021 FUV, Provider: Luz Aguilar, Status: Pen, Time: 1:40 PM FUV, Provider: Luz Aguilar, Status: Pen, Time: 1:40 PM [facility]hab [facility] Work Phone: Start: 09-18-2021 [id number], Provider: Bisi Prabhakar, Status: Pen, Time: 10:00 AM [id number], Provider: Bisi Prabhakar, Status: Pen, Time: 10:00 AM [facility] Work Phone: Start: 09-06-2021 [id number], Provider: Bisi Prabhakar, Status: Pen, Time: 8:00 AM [id number], Provider: Bisi Prabhakar, Status: Pen, Time: 8:00 AM [facility] Work Phone: Start: 08-02-2021 FUV, Provider: Luz Aguilar, Status: Pen, Time: 8:20 AM FUV, Provider: Luz Aguilar, Status: Pen, Time: 8:20 AM [facility] Work Phone: Start: 06-21-2021 NPV, Provider: Luz Aguilar, Status: Pen, Time: 8:00 AM NPV, Provider: Luz Aguilar, Status: Pen, Time: 8:00 AM [facility] Work Phone: Start: 03-27-2021 COVID-19 VACCINE (3 - Booster for Pfizer series) COVID-19 VACCINE (3 - Booster for Pfizer series) [facility] Start: 12-20-2020 COVID-19 Vaccine (3 - Pfizer series) COVID-19 Vaccine (3 - Pfizer series) [facility] Start: 01-09-2020 FFD mammogram Breast screening Mamm - Ultrasound of Breast [place] [address] Work Phone: Start: 10-26-2017 HPV TESTING HPV TESTING [facility] Start: 10-26-2009 DTaP/Tdap/Td Vaccine s (1 - Tdap) DTaP/Tdap/Td Vaccines (1 - Tdap) [facility] Start: 10-26-2008 PAP TESTING PAP TESTING [facility] Start: 10-26-2008 Screening for malignant neoplasm of cervix [facility] Start: 10-26-2006 DTaP,Tdap and Td Vaccines (1 - Tdap) DTaP,Tdap and Td Vaccines (1 - Tdap) [facility] Start: 10-26-2006 Hepatitis B Vaccine (1 of 3 - 19+ 3-dose series) Hepatitis B Vaccine (1 of 3 - 19+ 3-dose series) [facility] Start: 10-26-2006 Hepatitis B Vaccines (1 of 3 - 19+ 3-dose series) Hepatitis B Vaccines (1 of 3 - 19+ 3-dose series) [facility] Start: 10-26-2006 Urine microalbumin profile [facility] Start: 10-26-2005 Adult BMI Screening Adult BMI Screen ing [facility] Start: 10-26-2005 HEPATITIS C SCREENING HEPATITIS C [facility] Start: 10-26-2005 Hepatitis C screening Hepatitis C [facility] Start: 10-26-2005 HIV SCREENING HIV SCREENING [facility] Start: 10-26-2005 HIV screening HIV Screening [facility] Start: 10-26-2000 Varicella vaccination Varicell a Vaccines (1 of 2 - 13+ 2-dose series) [facility] Start: 1999 Adult depression screening assessment DEPRESSION SCREENING [facility] Start: 1999 Tobacco Screening Tobacco Screening [facility] Start: 10-26-1988 MMR Vaccines (1 of 1 - Standard series) MMR Vaccines (1 of 1 - Standard series) [facility] Start: 10-26-1988 Varicella vaccination Varicell a Vaccines (1 of 2 - 2-dose childhood series) [facility] Start: 1987 HEPATITIS B (1 of 3 - 3-dose series) HEPATITIS B (1 of 3 - 3-dose series) [facility] Start: 1987 Hepatitis B Vaccines (1 of 3 - 3-dose series) Hepatitis B Vaccines (1 of 3 - 3-dose series) [facility] Start: 1987 HIV screening HIV Screening [facility] Start: 1987 Yearly Adult Physical Yearly Adult P [facility] Bacteria identified in Urine by Culture Urine culture Microbiology Routine Missed menses Ordered: 02/16/2024 [facility] Comment on above: Ordered: 02/16/2024 CBC W Auto Differential panel - Blood CBC and differential Lab Routine Missed menses , unspecified gestational age Ordered: 02/16/2024 [facility] Comment on above: Ordered: 02/16/2024 CHLAMYDIA TRACHOMATI S (GENITO/STI) CHLAMYDIA TRACHOMATIS (GENITO/STI) Lab Routine Exposure to STD Ordered: 04/14/2024 [facility] Comment on above: Ordered: 04/14/2024 Hemoglobin A1c/Hemoglobin.total in Blood Hemoglobin A1c Lab Routine Missed menses , unspecified gestational age Ordered: 02/16/2024 [facility] Comment on above: Ordered: 02/16/2024 Hepatitis B virus surface Ag [Presence] in Serum or Plasma by Immunoassay Hepatitis B surface antigen Lab Routine Missed menses , unspecified gestational age Ordered: 02/16/2024 [facility] Comment on above: Ordered: 02/16/2024 Hepatitis C virus Ab [Presence] in Serum or Plasma by Immunoassay Hepatitis C antibody Lab Routine Missed menses , unspecified gestational age Ordered: 02/16/2024 [facility] Comment on above: Ordered: 02/16/2024 HIV-1/HIV-2 antigen/antibody combination immunoassay HIV-1 and HIV-2 antibodies Lab Routine Missed menses , unspecified gestational age Ordered: 02/16/2024 [facility] Comment on above: Ordered: 02/16/2024 Human papilloma viru s DNA [Presence] in Unspecified specimen by Probe with amplification HPV DNA probe, amplified Microbiology Routine Well woman exam with routine gynecological exam Ordered: 04/14/2024 [facility] Work Phone: Comment on above: Ordered: 04/14/2024 Neisseria gonorrhoea e DNA [Presence] in Unspecified specimen by GENTRY with probe detection Neisseria gonorrhea DNA probe, direct Lab Routine Exposure to STD Ordered: 04/14/2024 [facility] Comment on above: Ordered: 04/14/2024 Reagin Ab [Presence] in Serum by RPR RPR Lab Routine Missed menses , unspecified gestational age Ordered: 02/16/2024 [facility] Comment on above: Ordered: 02/16/2024 Rubella antibody, IgG Rubella an tibody, IgG Lab Routine Missed menses , unspecified gestational age Ordered: 02/16/2024 [facility] Comment on above: Ordered: 02/16/2024 SURESWAB(R) ADVANCED VAGINITIS PLUS, TMA SURESWAB(R) ADVANCED VAGINITIS PLUS, TMA Pathology and Cytology Routine Vaginal discharge Ordered: 04/14/2024 [facility] Healthcare Comment on above: Ordered: 04/14/2024 [id number] e 200 Work Phone: NEGATED: Highlighted row has been ruled out! Planned Goals not documented [id number]-[id number] 200 Work Phone: Immunizations Immunization Date Immunization Notes Care Provider Fa mark 10-25-2020 Pfizer-BioNTech COVI D-19 Vacc 30 MCG/0.3ML Intramuscular Suspension Rafaela Arguello Work Phone: [id number] 200 Work Phone: 10-04-2020 Pfizer-BioNTech COVI D-19 Vacc 30 MCG/0.3ML Intramuscular Suspension Rafaela Arguello Work Phone: [id number] 200 Work Phone: Payers Date Payer Category Payer Medicaid [id number] 2023 Medicaid [place]ICA[place] [id number] 2023 Medicaid [id number] 2023 Self-pay [id number] [id number] 2022 Managed Care (Private) [facility] Member Subscriber Plan / Payer (Effective 2022-Present) Name: Michael Weller Relation to Subscriber: Self Name: Michael Weller Payer ID: Not on file Type: Not on file Address: [address] [place] [address] [id number] 2022 Private Health Insurance [id number] 2020 Unknown 1987 Unknown [id number] 2.16840.1.722985.3.579.2. 593 1987 Unknown [id number] 2.16840.1.964967.3.579.2. 593 1987 Unknown [id number] 2.16840.1.977940.3.579.2. 593 1987 Unknown [id number] 2.840.1.204960.3.579.2. 593 1987 Unknown [id number] 2.840.1.879600.3.579.2. 593 1987 Unknown [id number] 2.16840.1.544883.3.579.2. 356 1987 Unknown [id number] 2.16840.1.270281.3.579.2. 356 1987 Unknown [id number] 2.16840.1.366746.3.579.2. 356 1987 Unknown [id number] 2.16840.1.087023.3.579.2. 356 1987 Unknown [id number] 2.16840.1.508579.3.579.2. 356 1987 Unknown [id number] 2.16840.1.338458.3.579.2. 1244 1987 Unknown [id number] 2.16840.1.948345.3.579.2. 1244 1987 Unknown [id number] 2.16.840.1.558906.3.579.2. 1244 1987 Unknown [id number] 2.16.840.1.441122.3.579.2. 4 1987 Unknown [id number] 2.16.840.1.134670.3.579.2. 1244 1987 Unknown [id number] 2.16840.1.750881.3.579.2. 1243 1987 Unknown [id number] 2.16.840.1.480652.3.579.2. 124 1987 Unknown [id number] 2.840.1.890094.3.579.2. 1242 1987 Unknown [id number] 2.16840.1.522511.3.579.2. 1286 1987 Unknown [id number] 2.840.1.902952.3.579.2. 1258 1987 Unknown [id number] 2.840.1.371361.3.579.2. 1258 1987 Unknown [id number] 2.840.1.758220.3.579.2. 1258 1987 Unknown [id number] 2.840.1.000849.3.579.2. 1258 1987 Unknown [id number] 2.840.1.680635.3.579.2. 9 1987 Unknown [id number] 2.16840.1.714364.3.579.2. 1259 1987 Unknown [id number] 2.16840.1.994202.3.579.2. 1258 1987 Unknown [id number] 2.16840.1.675046.3.579.2. 9 1987 Unknown [id number] 2.16840.1.632054.3.579.2. 1259 1987 Unknown [id number] 2.16.840.1.433592.3.579.2. 1259 1987 Unknown [id number] 2.16.840.1.793778.3.579.2. 1259 1959 Unknown [id number] Unknown [id number] 2.16.840.1.510563.3.579.2. 531 Unknown [id number] 2.16.840.1.278735.3.579.2. 531 Social History Date Type Detail Facility Assertion Tobacco smoking consumption unknown (finding) [id number] [facility] Work Phone: Start: 12-03-2022 End: 07-22-2023 Non-smoker Non-smoker [facility] Start: 02-19-2023 End: 09-05-2023 Tobacco smoking status NHIS Never smoked tobacco [facility] Start: 10-17-2021 End: 09-01-2023 Alcohol intake Current drinker of alcohol (finding) [facility] Start: 05-14-2010 History SDOH Alcohol Comment occasional [facility] Start: 1987 Sex Assigned At Not on file C [facility] Start: 1987 Sex Assigned At Female F [facility] Start: 12-03-2022 End: 07-22-2023 Sex Assigned At [facility] Tobacco smoking stat NHIS Tobacco smoking consumption unknown [facility] Start: 12-09-2022 End: 01-05-2024 Exposure to SARS-CoV-2 (event) Not sure [facility] Start: 02-19-2023 Tobacco use and exposure Smokeless tobacco non-user [facility] Work Phone: Start: 02-19-2023 End: 01-05-2024 Alcohol intake Defer [facility] Work Phone: National Score (1-100), lower number is lower risk 52 [facility] Start: 01-09-2024 [facility] Start: 03-09-2024 End: 08-03-2024 Sex Female (finding) [facility] Medical Equipment Procedure Code Equipment Code Equipment Origin al Text Equipment Identifier Dates 1 strip by In Vi tro route Daily Use in the morning prior to breakfast, 1 hour after each meal for a total of 4times daily. [id number] Start: 07-12-2024 End: 08-11-2024 1 each by In Vit ro route Daily Use to check FSBS four times daily [id number] Start: 07-12-2024 End: 08-11-2024 Use as instructed [id number] Start: 08-02-2024 Goals Date Patient Goal Desired Activity /State Personal health goal Functional Status Date Assessment Result Facility NEGATED: Highlighted row Functional performance Functional status health issues are not documented Disease [id number] [address] [facility] Work Phone: Mental Status Date Assessment Result Facility NEGATED: Highlighted row Cognitive function [Interpretation] Cognitive status health issues are not documented Disease [id number] [facility] Work Phone: Clinical Notes 03-04-2012 to 08-02-2024 Bisi Nixon, [employer] - 08/02/2024 9:10 AM Elfego Nixon, [facility] - 07/12/2024 11:10 AM Gerardo Zelaya, [facility] - 06/20/2024 9:40 AM Nohemy Hopper [facility] - 04/14/2024 2:50 PM ESTPatient Instructions Note Date & Type Note Facility 08-02-2024 History of Present illness Narrative Reason for [...] nursing note reviewed. Exam conducted with a loading checker present. Vitals: Estimated body mass index is 39.44 kg/m as calculated from the following: Height [...] Matt Stapleton DO documented in this encounter [facility] 07-12-2024 History of Present illness Narrative Reason for [...] Use to check FSBS four times daily metoclopramide (REGLAN) 10 mg, Oral, 3 times daily before meals, Take 1 tablet by mouth 30 minutes prior to meals 3 times daily as needed for nausea. promethazine (Phenergan) 12.5 MG tablet TAKE 1 [...] Laterality Date CHOLECYSTECTOMY 2009 CYST REMOVAL [address] IMAGING MELANOMA TONSILLECTOMY 1992 [...] nursing note reviewed. Exam conducted with a loading checker present. Vitals: Estimated body mass index is 39.61 kg/m as calculated from the following: Height as of 05/30/21: 5' 5 . Weight as of this encounter: 238 lb. BP: 122/74 Patient's last menstrual period was 12/18/2023. ASSESSMENT & PLAN ICD-10-CM 1. Third trimester Z34.93 POCT urinalysis dipstick manually resulted 2. 28 weeks gestation of Z3A.28 US OB follow up transabdominal approach 3. Multigravida of advanced maternal age in third trimester O09.523 US OB follow up transabdominal approach 4. Gestational diabetes mellitus (GDM), antepartum, gestational diabetes method of control unspecified O24.419 Lancets Ultra Thin misc Alcohol Swabs (Alcohol Prep Pad) 70 % pads Glucose Blood (Blood Glucose Test) strip Blood Glucose Monitoring Suppl (D-Care Glucometer) w/Device kit 5. Elevated glucose tolerance test R73.09 Lancets Ultra Thin misc Alcohol Swabs (Alcohol Prep Pad) 70 % pads Glucose Blood (Blood Glucose Test) strip Blood Glucose Monitoring Suppl (D-Care Glucometer) w/Device kit Return OB: Patient presents today for a routine obstetrics appointment. Patient is currently 28w3d . Patient states she is doing well but has complaints of being tired due to current . Patient has verbalizes frequent movement. labor precautions was discussed/given and patient was instructed to perform kick counts three times a day. Orders Placed This Encounter Procedures US OB follow up transabdominal approach POCT urinalysis dipstick manually resulted Follow Up: Patient is to return to office in 2 week for routine OB appointment. Documented by Bisi Nixon LPN on behalf of: Matt Stapleton DO documented in this encounter [facility] 06-20-2024 History of Present illness Narrative Reason for Appointment: Patient ID: Michael Weller is a 38 y.o. female who presents for Routine Visit Patient presents today for Return OB appointment. MEDICATIONS Current Outpatient Medications Medication Instructions metoclopramide (REGLAN) 10 mg, Oral, 3 times daily before meals, Take 1 tablet by mouth 30 minutes prior to meals 3 times daily as needed for nausea. ALLERGIES Allergies Allergen [...] Laterality Date CHOLECYSTECTOMY 2009 CYST REMOVAL [address] IMAGING MELANOMA TONSILLECTOMY 1992 [...] nursing note reviewed. Exam conducted with a loading checker present. Vitals: Estimated body mass index is 39.11 kg/m as calculated from the following: Height as of 05/30/21: 5' 5 . Weight as of this encounter: 235 lb. BP: 120/72 Patient's last menstrual period was 12/18/2023. ASSESSMENT & PLAN ICD-10-CM 1. Diabetes mellitus screening Z13.1 CBC Glucose tolerance, 1 hour CBC Glucose tolerance, 1 hour 2. 25 weeks gestation of Z3A.25 POCT urinalysis dipstick manually resulted 3. Second trimester Z34.92 4. Antepartum multigravida of advanced maternal age O09.529 Patient presents today for a routine obstetrics appointment. Patient is currently 25w2d with a Estimated Date of Delivery: 10/01/24. Patient complaints of occasional lower extremity swelling. Patient voiced some spots with vision and dizziness. Discussed increasing oral hydration & slow movements. Patient voiced that when she was younger she had spells of passing out (around 8th grade). Ordered growth scan to have obtained at 28 weeks gestation. Patient to return to clinic for routine OB appointment in 2-3 weeks. Documented by Maria Victoria Zelaya LPN on behalf of: ARIELLA Duran documented in this encounter [facility] 04-14-2024 History of Present illness Narrative Reason [...] Laterality Date CHOLECYSTECTOMY 2009 CYST REMOVAL [address] IMAGING MELANOMA TONSILLECTOMY 1992 [...] nursing note reviewed. Exam conducted with a loading checker present. Vitals: Estimated body mass index is [...] obtained without difficulty and patient was given [facility] order to have obtained. Orders Placed This [...] of: RAE Teixeira documented in this encounter [facility] 03-16-2024 History of Present illness Narrative Reason [...] nursing note reviewed. Exam conducted with a loading checker present. Vitals: Estimated body mass index is [...] or undercooked meat, and stay away from [facility]. Patient has been consulted regarding any further do's and don'ts of . Patient voiced understanding and all questions and concerns were answered. Pt was offered [facility] referral for AMA, pt considering. Orders Placed This Encounter Procedures POCT urinalysis dipstick manually resulted Follow Up: Patient is to return in 4 weeks for routine OB appointment. Documented by Bisi Nixon LPN on behalf of: Matt Stapleton DO documented in this encounter [facility] 02-16-2024 History of Present illness Narrative [...] or undercooked meat, and stay away from [facility]. Patient has also been advised to [...] Cathy Dick LPN documented in this encounter [facility] 01-05-2024 History of Present illness Narrative [...] Ketones, Urine NEGATIVE NEGATIVE mg/dl POC Specific [place], Urine 1.010 1.005 - 1.035 POC Blood, [...] pyelonephritis, Macrobid prescribed. She will take Azo [id number]-gpxqjcr, acetaminophen, fluids, etc. Follow-up as needed. Patient [...] Davison 12:46 PM documented in this encounter [facility] Work Phone: 01-05-2024 Instructions Maryann HaileMayank - 01/05/2024 11:45 AM EDT No signs of acute pyelonephritis, Macrobid prescribed. She will take Azo ihaw-dxa-tymwhiq, acetaminophen, fluids, etc. Follow-up as needed. Patient declined urine culture after counseling. documented in this encounter [facility] Work Phone: 09-01-2023 Note HNO ID: [id number] Author: ROULA BLEDSOE APRN.[employer] Service: ? Author Type: Nurse Practitioner Type: [...] Past Histories independently gathered by the clinical business support associate and the remaining scribed note accurately describes my personal service to the patient. Roula Bledsoe APRN.[employer] September 01, 2023 11:26 AM Medical Decision Making: Problems: Moderate: 2+ stable chronic illnesses Risk: Low: Low risk from testing/treatment Medical Decision Making Level: 3 - Low [facility] 09-01-2023 History of Present illness Narrative [...] Past Histories independently gathered by the clinical business support associate and the remaining scribed note accurately describes my personal service to the patient. Roula Bledsoe APRN.CNP September 01, 2023 11:26 AM Medical Decision Making: Problems: Moderate: 2+ stable chronic illnesses Risk: Low: Low risk from testing/treatment Medical Decision Making Level: 3 - Low documented in this encounter [facility] 07-22-2023 History of Present illness [...] 07/22/2023 3:01 PM documented in this encounter [facility] Work Phone: 04-27-2023 History of Present illness [...] 04/27/2023 4:18 PM documented in this encounter [facility] Work Phone: 03-04-2023 History of Present illness [...] Karolina Man DO documented in this encounter [facility] Work Phone: 02-19-2023 History of Present illness Narrative Michael Weller 37 y.o. SUBJECTIVE HPI Michael 37-year-old young lady who was seen today for evaluation of a possible attention deficit disorder difficulty at work at home. 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 Signatures Electronically signed by : Bisi Prabhakar PT [facility]; Aug 10 2023 10:12AM EST (Author) Aracel[facility] 07-02-2022 Evaluation note [...] no improvement of pain. Given return precautions. PlastiPure Other 12-05-2022 Chief complaint Narrative - Reported* [...] virtual visit to discuss anxiety follow up [id number] Work Phone: 1(450) 585-130008-11-2022 History of Present illness Narrative* Roula Donahuetz, [employer] - 10/17/2021 12:40 PM EDT SKIN EXAM [...] Past Histories independently gathered by the clinical business support associate and the remaining scribed note accurately describes my personal service to the patient. Roula Bledsoe APRN.CNP October 17, 2021 1:05 PM I spent a total of 15 minutes on the date of the service which included preparing to see the patient, [id number] patient care, completing clinical documentation, performing a medically appropriate examination, and counseling and educating the patient/family/caregiver. documented in this encounter[facility]08-[facility] History of Present illness Narrative* [...] breast biopsy: right breast biopsy 2018 at [facility]- fibroepithelial lesion consistent with fibroadenoma * - breast surgery: no * - breast cancer:no * Menarche: 15 * AFLB: 22 * Menopause: no * HRT:no * Family history: both grandfathers with lung cancer * no history of breast or ovarian cancer [facility] [place] Work Phone: [phone]) [phone] History of Present illness Narrative* MICHAEL WELLER [...] breast biopsy: right breast biopsy 2018 at [facility]- fibroepithelial lesion consistent with fibroadenoma * - breast surgery: no * - breast cancer:no * Menarche: 15 * AFLB: 20 * Menopause: no * HRT:no * Family history: both grandfathers with lung cancer * no history of breast or ovarian cancer [facility] Work Phone: 1(481) 848-335408-02-2022 Chief complaint Narrative - Reported* An interactive [...] visit to discuss insomnia, trazodone not helping [facility] 200 Work Phone: 1(550) 668-597908-02-2022 Chief complaint Narrative - Reported* An interactive [...] visit to discuss insomnia, trazodone not helping [facility] Work Phone: 1(798) 688-617105-06-2022 [place]The [place], [place] NAME: MICHAEL WELLER DATE OF : MEDICAL REC#: [id number] FAMILY SERVICE ASSISTANT: [address], TRANSADMIT DATE: 07/12/2021 09:46:00 RADIATION ONCOLOGY MANAGER DATE: 07/13/2021 21:00 DICTATING PHYSICIAN: MATT STAPLETON DICTATION DATE: 07/12/2021 12:00 OPERATIVE NOTE OPERATION DATE: 07/12/2021 PROCEDURE: Diagnostic laparoscopy. PREOPERATIVE DIAGNOSIS: Dyspareunia. POSTOPERATIVE DIAGNOSIS: Dyspareunia. ANESTHESIA: General. SURGEON: Matt Stapleton D.O. NEUROSURGERY SPINE PHYSICIAN: CLIFF Durán URINE OUTPUT: Yellow and clear. [...] Stapleton DO on 07/15/2021 03:07 PM EDT [facility] Signed and Approved by: DR MATT STAPLETON . 07/15/2021 15:07:00[facility]12-27-2012 History general Narrative - Reported* Type Description Date Medical History 03-04-12 Pathology Report [facility] Surgical History left hip surgery Surgical History tonsillectomy and adenoidectomy Surgical History cholecystectomy Surgical History wisdom teeth Surgical History tumor PlastiPure Other Evaluation note* Diagnosis Lentigines- Primary Other dyschromia Multiple benign nevi Benign neoplasm of skin, site unspecified Valles angioma Nevus, non-neoplastic Exposure to tanning bed, sequela Hx of malignant melanoma Personal history of malignant melanoma of skin Dermatofibroma Benign neoplasm of skin, site unspecified documented [facility] this encounter [facility] [place] noteNo assessment information availableOhio[facility] Work Phone: Evaluation note* Diagnosis Abnormal mammogram Abnormal mammogram, unspecified documented in this encounter [facility] Work Phone: Evaluation note* Diagnosis Lump in female breast Lump or mass in breast documented in this encounter [facility] Work Phone: Evaluation note* Diagnosis Encephalopathy- Primary Unspecified encephalopathy Anxiety Anxiety state, unspecified Attention deficit hyperactivity disorder (ADHD), predominantly inattentive type documented in this encounter [facility] Work Phone: Evaluation note* Diagnosis Anxiety Anxiety state, unspecified documented in this encounter [facility] Work Phone: Evaluation note* Diagnosis Encephalopathy- Primary Unspecified encephalopathy Attention deficit hyperactivity disorder (ADHD), 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, unspecified Anxiety Anxiety state, unspecified documented in this encounter [facility] Work Phone: Evaluation note* Diagnosis Dermatofibroma- Primary Benign neoplasm of skin, site unspecified Lentigines Other dyschromia Multiple benign nevi Benign neoplasm of skin, site unspecified Valles angioma Nevus, non-neoplastic Hx of malignant melanoma Personal history of malignant melanoma of skin [facility] Diagnosis Onset Date Resolution Status UTI (urinary tract infection) acute [facility] Work Phone: Evaluation note* Diagnosis Acute lower UTI- Primary Urinary tract infection, site not specified Urine frequency documented in this encounter [facility] Work Phone: Evaluation note* Diagnosis Missed menses [...] Nausea alone [facility] Diagnosis Diabetes mellitus screening Screening for diabetes mellitus 25 weeks gestation of Second trimester state, incidental Antepartum multigravida of advanced maternal age [facility] Diagnosis Third trimester state, incidental 28 weeks gestation of Multigravida of advanced maternal age in third trimester Gestational diabetes mellitus (GDM), antepartum, gestational diabetes method of control unspecified Elevated glucose tolerance test Impaired glucose tolerance test [facility] Diagnosis 31 weeks gestation of Third trimester state, incidental Gestational diabetes mellitus (GDM), antepartum, gestational diabetes method of control unspecified documented in this encounter [facility] [...] area gets bumped. 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 No regular exercise. [id number] Work Phone: History of Present illness [...] area gets bumped. 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 No regular exercise. [facility] Work Phone: History of Present illness [...] area gets bumped. 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 No regular exercise. [facility] Work Phone: History of Present illness [...] discharge from lumps. 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 [id number] 200 Work Phone: History of Present illness [...] discharge from lumps. 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 [facility] Work Phone: History of Present illness Narrative* Patient presents to clinic with complaints of pain during sex and mild Ricardo. Her assessment was significant for mild strength deficits and decreased movement of her pelvic floor. Patient will benefit from skilled PT to address these impairments. * Clinical Presentation: Stable and/or uncomplicated characteristics. * Level of Complexity: low [facility] Work Phone: History of Present illness Narrative* [...] urology for painful intercourse. Planning physical therapy. [place] [address] Work Phone: History of Present illness Narrative* [...] urology for painful intercourse. Planning physical therapy. [facility] Work Phone: History of Present illness [...] been able to have these done yet. [facility] 200 Work Phone: Instructions* Name Dates Details Instructions not documented [facility] Work Phone: InstructionsNot on filedocumented in this encounter [facility] Family History Unknown Family Member Name Dates [...] Specialty Diagnoses / Procedures Referred By Kezia t Referred To Contact Radiology Diagnoses Lump in female breast Procedures [place] [id number] [facility] [address] [place] [id number] Referral ID Status Reason Start Date Expiration Date Visits Requested Visits Authorized [id number] Pending Review Perform Procedure 3 06/17/2023 1 1 Additional Source Comments INFORMATION SOURCE (unrecogn ized section and content) DATE CREATED AUTHOR 07/19/2021 Tameka sheikh DATE CREATED AUTHOR AUTHOR'S ORGANIZ ATION 10/16/2021 [facility] DATE CREATED AUTHOR AUTHOR'S ORGANIZ ATION 03/02/2022 [facility] DATE CREATED AUTHOR AUTHOR'S ORGANIZ ATION 10/17/2022 [facility] DATE CREATED AUTHOR AUTHOR'S ORGANIZ ATION 12/11/2022 [facility] DATE CREATED AUTHOR AUTHOR'S ORGANIZ ATION 07/25/2023 [facility] DATE CREATED AUTHOR AUTHOR'S ORGANIZ ATION 09/03/2023 [facility] DATE CREATED AUTHOR AUTHOR'S ORGANIZ ATION 11/14/2023 [facility] DATE CREATED AUTHOR AUTHOR'S ORGANIZ ATION 01/06/2024 [facility] DATE CREATED AUTHOR AUTHOR'S ORGANIZ ATION 03/10/2024 [facility] DATE CREATED AUTHOR AUTHOR'S ORGANIZ ATION 08/10/2024 [facility] DATE CREATED AUTHOR AUTHOR'S ORGANIZ ATION 08/12/2024 [facility] Special[facility] EPIC Reason for Visit (unrecogniz ed section and content) Reason Comments Full Body Skin Check Specialty Diagnoses / Procedures Referred By Contac t Referred To Contact Radiology Diagnoses Abnormal mammogram Procedures BI mammo bilateral diagnostic tomosynthesis [place] [address] [place] [address] Referral ID Status Reason Start Date Expiration Date Visits Requested Visits Authorized [id number] Pending Review Perform Procedure 12/03/2022 06/01/2023 1 1 Specialty Diagnoses / Procedures Referred By Contac t Referred To Contact Radiology Diagnoses Lump in female breast Procedures BI [place] [address] [place] [address] Referral ID Status Reason Start Date Expiration Date Visits Requested Visits Authorized [id number] Pending Review Perform Procedure 3 06/17/2023 1 1 Reason Comments New Patient Visit NPV- ADHD Specialty Diagnoses / Procedures Referred By Contac t Referred To Contact Neurology Diagnoses Anxiety Procedures VA OFFICE/OUTPATIENT NEW HIGH MDM 60-74 [place] [address] [facility] [address] [phone] Jhonny Issa MD [address] [facility], [address] [place] [address] Referral ID Status Reason Start Date Expiration Date Visits Requested Visits Authorized [id number] Pending Review Specialty Services Required 12/03/2022 06/01/2023 [...] or prosecute any alcohol or drug abuse patient.[facility] HospitalIn the event this information is protected by the Federal Confidentiality of Alcohol and Drug Abuse Patient Records regulations: The Federal rules restrict any use of the information to criminally investigate or prosecute any alcohol or drug abuse patient.[facility] Care Teams (unrecognized sec tion and content) Sole Tier Relationship Specialty Start Date End Date Danielle Infante [address] [facility] [address] [place] [address] PCP - General Family Practice 06/10/16 Team Status: Inactive Member Role Status Dates Danielle Infante , DO Primary Care Provider Active Kp Alvares DO [facility] Attending Provider Active Team Status: Active Member Role Status Dates Danielle Infante DO Primary Care Provider Active Team Status: Inactive Member Role Status Dates Danielle Infante DO Primary Care Provider Active Bolivar Sherman , MAILROOM PERSONNEL-C Attending Provider Activ e Sole Tier Relationship Specialty [place] [address] [facility] [address] [place] [address] PCP - General Family Medicine 10/29/22 Sole Tier Relationship Specialty [place] [address] [facility] [address] [place] [address] PCP - General Family Medicine 10/29/22 Sole Tier Relationship Specialty [place] [address] [address] PCP - General Family Medicine 10/29/22 Sole Tier Relationship Specialty [place] [address] [address] PCP - General Family Medicine 10/29/22 Jhonny Issa MD [address] [facility], [address] [address] Consulting Physician Neurology 02/19/23 Sole Tier Relationship Specialty [place] [address] [address] PCP - General Family Medicine 10/29/22 Jhonny Issa MD [address] [facility], [address] [address] Consulting Physician Neurology 02/19/23 Sole Tier Relationship Specialty [place] [address] [facility] [address] [place] [address] PCP - General Family Medicine 10/29/22 [place] [address] [facility] [address] [place] [address] PCP - MMO ACO PCP 03/09/23 Jhonny Issa MD [address] [facility], [facility] [address] [place] [address] Consulting Physician Neurology 02/19/23 Sole Tier Relationship Specialty Start Date End Date Danielle Infante DO [address] [facility] [address] [place] [address] PCP - General Family Medicine 06/10/16 Team [...] September 05, 2023 End: September 05, 2023 Sole Tier Relationship Specialty Start Date End Date Jhonny Issa MD [address] [facility], [facility] [address] [place] [address] Consulting Physician Neurology 02/19/23 Sole Tier Relationship Specialty Start Date End Date Danielle Infante DO [address] [facility] [address] [place] [address] PCP - General Family Medicine 07/15/22 Sole Tier Relationship Specialty Start Date End Date Danielle Infante DO [address] [place] [address] PCP - General Family Medicine 07/15/22 Sole Tier Relationship Specialty Start Date End Date Danielle Infante DO [address] [place] [address] PCP - General Family Medicine 07/15/22 Sole Tier Relationship Specialty Start Date End Date Danielle Infante DO [address] [place] [address] PCP - General Family Medicine 07/15/22 Sole Tier Relationship Specialty Start Date End Date Danielle Infante DO [address] [place] [address] PCP - General Family Medicine 07/15/22 Sole Tier Relationship Specialty Start Date End Date Danielle Infante DO [address] [place] [address] PCP - General Family Medicine 07/15/22 Team Status: Inactive Member Role Status Christoph Stapleton DO Attending Provider Active Start : March 08, 2024 End: March 08, 2024 Sole Tier Relationship Specialty Start Date End Date Danielle Infante DO [address] [place] [address] PCP - General Family Medicine 07/15/22 Sole Tier Relationship Specialty Start Date End Date Danielle Infante DO [address] [place] [address] PCP - General Family Medicine 07/15/22 Sole Tier Relationship Specialty Start Date End Date Danielle Infante, DO [address] [place] [address] PCP - General Family Medicine 07/15/22 Sole Tier Relationship Specialty Start Date End Date Danielle Infante, DO [address] [place] [address] PCP - General Family Medicine 07/15/22 Sole Tier Relationship Specialty Start Date End Date Danielle Infante, DO [address] [place] [address] PCP - General Family Medicine 07/15/22 Sole Tier Relationship Specialty Start Date End Date Danielle Infante DO [address] [place] [address] PCP - General Family Medicine 07/15/22 Sole Tier Relationship Specialty Start Date End Date Danielle Infante DO [address] [place] [address] PCP - General Family Medicine 07/15/22 Sole Tier Relationship Specialty Start Date End Date Danielle Infante DO [address] [place] [address] PCP - General Family Medicine 07/15/22 Sole Tier Relationship Specialty Start Date End Date Danielle Infante DO [address] [place] [address] PCP - General Family Medicine 07/15/22 Goals (unrecognized section and content) Goals may be documented in a n alternate sectionNo InformationGoals may be documented in an alternate sectionGoals may be documented in an alternate sectionGoals may be documented in an alternate sectionGoals may be documented in an alternate sectionNot on filedocumented as of this encounter FOR RECORDS PERTAINING TO PATIENTS WHO ARE [...] BE BASED ON THE PRIMARY CLINICAL RECORDS. [facility]. provides no warranty or guarantee of the accuracy or completeness of information in this document.
[2024-08-14 13:19] LABS: Total Protein Urine Random 20.8 mg/dL (<=11.9)
[2024-08-14 13:38] LABS: Total Protein 24 Hour Urine 322.4 mg/24hr (<=149.1); Total Volume 24 Hour Urine 1550 mL/24hr
== END 2024-08-14 13:01 | disposition home or self-care (01) ==
LOC: LAB 13:00
PROVIDERS: Visit Provider Obstetrics & Gynecology
DX: Z34.93 Encounter for supervision of normal pregnancy, unspecified, third trimester (principal); M79.89 Other specified soft tissue disorders; H53.9 Unspecified visual disturbance
CPT/HCPCS: 84156

== ENCOUNTER 2024-08-15 16:16 | Observation (INO) | payer OTHER, SELFPAY ==
--- OUTSIDE RECORDS SUMMARY | 2024-08-02 09:10 | XMS_ITS | Encounter Summary ---
Author Organization [facility] Address [address] [place] [address] Care Team Providers Care High School Science Tutor Name Role Phone Juaquin Rae DO Primary Care Provider +1- [phone] Reason for Visit * Reason Comments Routine Visit Encounter Details Date Type Department Care Team (Late Contact Info) Description 08/02/2024 9:10 AM EDT Routine [facility] [address] [facility] [place] [phone] Matt Stapleton DO [address] [facility] [address] [place], [facility] 31 weeks gestation of ; Third trimester ; Gestational diabetes mellitus (GDM), antepartum, gestational diabetes method of control unspecified Social History Tobacco Use Types Packs/Day Years Used Date Smoking Tobacco: Never Assessed Estimated Date of Delivery Comme nts Yes 10/01/2024 Based on Ultraso und Sex and Gender Information Value Date Recorded Sex Assigned at Not on file Legal Sex Female 6:59 PM EDT Gender Identity Not on file Sexual Orientation Not on file documented as of this encounter Last Filed Vital Signs Vital Sign Reading Time Taken Comments Blood Pressure 120/82 08/02/2024 9:22 AM EDT Pulse - - Temperature - - Respiratory Rate - - Oxygen Saturation - - Inhaled Oxygen Concentration - - Weight 108 kg (237 lb) 08/02/2024 9:22 AM EDT Height - - Body Mass Index 39.44 05/30/2021 12:00 PM EDT documented in this encounter Progress Notes * Bisi Nixon, PASTRYCOOK - 08/02/2024 9:10 AM EDT Reason for Appointment: Patient ID: Jonna Weller is a 38 y.o. female who presents for Routine Visit Patient presents today for Return OB appointment. MEDICATIONS Current Outpatient Medications Medication Instructions Alcohol Swabs (Alcohol Prep Pad) 70 % pads 1 Pad, Topical, Daily, Use four times daily to check FSBS. Blood Glucose Monitoring Suppl (D-Care Glucometer) w/Device kit 1 kit, Does not apply, Daily, Use four times daily to check FSBS. In the morning prior to breakfast & 1 hour after each meal for a total of 4times daily. Glucose Blood (Blood Glucose Test) strip 1 strip, In Vitro, Daily, Use in the morning prior to breakfast, 1 hour after each meal for a total of 4times daily. iron polysaccharides (PROFE) 391.3 mg, Oral, Daily Lancets Ultra Thin misc 1 each, In Vitro, Daily, Use to check FSBS four times daily promethazine (Phenergan) 12.5 MG tablet TAKE 1 TABLET (12.5 MG) BY MOUTH EVERY 6 HOURS IF NEEDED FOR NAUSEA OR VOMITING ALLERGIES Allergies Allergen Reactions Cat Dander Itching [...] back [place] LN IMAGING MELANOMA TONSILLECTOMY 1993 REVIEW OF SYSTEMS Review of Systems: Review [...] nursing note reviewed. Exam conducted with a interior paneler present. Vitals: Estimated body mass index is 39.44 kg/m?? as calculated from the following: Height as of 05/30/21: 5' 5 . Weight as of this encounter: 237 lb. BP: 120/82 Patient's last menstrual period was 12/18/2023. ASSESSMENT & PLAN ICD-10-CM 1. 31 weeks gestation of Z3A.31 POCT urinalysis dipstick manually resulted 2. Third trimester Z34.93 POCT urinalysis dipstick manually resulted Return OB: Patient presents today for a routine obstetrics appointment. Patient is currently 31w3d . Patient states she is doing well but has complaints of being tired due to current . Patient has verbalizes frequent movement. labor precautions was discussed/given and patient was instructed to perform kick counts three times a day. Pt being referred to [facility] for insulin instruction. Pt to start 5units NPH and regular in am and pm. Pt given NST/BPP. Orders Placed This Encounter Procedures POCT urinalysis dipstick manually resulted Follow Up: Patient is to return to office in 2 week for routine OB appointment. Documented by Bisi Nixon LPN on behalf of: Matt Stapleton DO documented in this encounter Plan of Treatment Upcoming Encounters Date Type Department Care Team (Late st Contact Info) Description 08/17/2024 11:00 AM EDT Routine [facility] [address] [place] [address] Matt Stapleton, [address] [place] [address] 10/26/2024 4:00 PM EDT Office Visit [facility] [address] [place] [phone] Matt Stapleton, DO [address] [place], [place] [id number] Scheduled Orders Name Type Priority Associated Diagnoses Orde r Schedule US biophysical profile w non stress test Imaging Routine Gestational diabetes mellitus (GDM), antepartum, gestational diabetes method of control unspecified Expected: 08/02/2024 (Approximate), Expires: 02/02/2025 documented as of this encounter Goals Goal Patient Goal Type Associated Problems Recent Progress Patient-Stated? Author Reminders Care Plan OB Reminders No Open Scheduling, Background documented as of this encounter Procedures Procedure Name Priority Date/Time Associated Diagnosis Comments POCT URINALYSIS DIPSTICK Routine 08/02/2024 9:27 AM EDT 31 weeks gestation of Third trimester documented in this encounter Results * (ABNORMAL) POCT urinalysis dipstick manually resulted (08/02/2024 9:27 AM EDT) Color, UA Straw Clarity, UA Cloudy Glucose, UA Negative Negative - 2000(110) ++++ mg/dL Bilirubin, UA Negative Negative - 4(70) +++ mg/dL Ketones, UA Positive Negative - 160(16) ++++ mg/dL Spec Grav, UA 1.025 1 - 1.03 Blood, UA Negative Negative - 50 Shaun/mcL pH, UA 6.0 5 - 9 Protein, UA Trace Negative - 2000(20) ++++ mg/dL Comment:15 Urobilinogen, UA 0.2 0.2 - 12 mg/dL Leukocytes, UA Negative Negative - 500+++ Denys/mcL Nitrite, UA Negative Negative - Positive Urine 08/02/2024 9:27 AM EDT Matt Stapleton DO POINT OF CARE TEST ENTER/EDIT OR DERABLES Final Result documented in this encounter Visit Diagnoses Diagnosis 31 weeks gestation of Third trimester state, incidental Gestational diabetes mellitus (GDM), antepartum, gestational diabetes method of control unspecified documented in this encounter Additional Health Concerns Active Problems Noted Date Diagnosed Date OB Reminders 04/14/2024 documented as of this encounter Care Teams High School Science Tutor Relationship Specialty Start Date End Date Juaquin Rae DO [address] [facility] [address] [place] [address] PCP - General Family Medicine 07/15/22 documented as of this encounter
--- OUTSIDE RECORDS SUMMARY | 2024-08-09 10:30 | XMS_ITS | Encounter Summary ---
Author Organization [facility] tem Address [facility] [id number] [address] [place] [address] Care Team Providers Care Computer Programming Manager Name Role Phone Unavailable Primary Care Provider Unavailabl e Reason for Visit * Reason Comments Gestational Diabetes * Consultation (Routine) - Pending Review Specialty Diagnoses / Procedures Referred By Contac t Referred To Contact Maternal and Medicine Diagnoses Gestational diabetes mellitus (GDM) in third trimester, gestational diabetes method of control unspecified Matt Stapleton R, DO [address] [place] [address] [place] [address] Phone: tel: fax: Maternal- Medicine at [facility] [address] [place] [address] Phone: tel: fax: Referral ID Status Reason Start Date Expiration Date Visits Requested Visits Authorized [id number] Pending Review Specialty Services Required 08/03/2024 08/03/2025 1 1 Encounter Details Date Type Department Care Team (Late st Contact Info) Description 08/09/2024 10:30 AM EDT Support Visit Maternal- Medicine at [facility] [address] [place] [phone] Noelle Johnston RN [address] [address] Ignacia Carvalho LD [address] [place] [address] Gestational diabetes mellitus (GDM) in third trimester, [...] Index - - documented in this encounter Patient Instructions * Patient Instructions* Noelle Johnston RN - 08/09/2024 10:30 AM EDT Daily Schedule - Diet and Insulin [] GET UP 5:30 am - 8 am [] Check sugar and record 5:30 am - 8 am [] EAT BREAKFAST 7 am - 9 am [] Check sugar 1 hour after start of meal and record 8 am - 10 am [] Eat morning snack (10 am) only if more than 4 hours between meals [] EAT LUNCH 12 pm [] Check sugar 1 hour after start of meal and record 1 pm [] Eat afternoon snack 4 pm [] Take insulin Lantus 5 pm [] EAT DINNER 6 pm - 7 pm [] Check sugar 1 hour after start of meal and record 7 pm - 8 pm [] Eat bedtime snack (HS) 8 pm BLOOD SUGAR GOALS: Before breakfast: 60-95 1 hours after meals 60-130 REMEMBER: EAT EVERY 3- 4 HOURS WHILE AWAKE documented in this encounter Progress Notes * [...] Testing: Results A1C results and date: 5.3% 03/08/24 Pre- BMI: Could not be calculated Calorie [...] care for you: OB Provider Family Doctor Bottom Sander Name: Dr. Matt Stapleton Name: No primary [...] Procedure Laterality Date CHOLECYSTECTOMY 2009 CYST REMOVAL 2011 BACK TONSILLECTOMY 1992 Personal diabetes history: Gestational Diabetes Unanswered Diabetes [...] demonstration Is there anything about your culture, religious, or personal beliefs we need to know about to care for you: Other None Primary Language spoken: Cook Islander [22] Primary Language for learning: Cook Islander Are you currently in a relationship where you are physically hurt, threatened or made to fee afraid? [] Yes [] No Registered Safety Engineer needed? [] Yes [] No Marital status/Living [...] where: Lower abdominal On thge following scale, three affiliated the number, which describes your current level [...] describe how they have changed. [] [] Have you ever received any diabetic education? If yes, where and when: [] [x] Patient and significant other present for Diabetes Education. Given schedule to spread meals and snacks out throughout the day. Glucometer brought to appointment; demonstrated good knowledge base using glucometer and reviewed proper sharps disposal. Reviewed BG log from 08/04/24-08/09/24; noted 4 of 4FBS and 3 of 6 PP elevated. Recently diagnosed with GDM; currently managed blood sugars with diet and physical activity. Prescribed insulin by Dr. Allen Stapleton; however, has not obtained insulin vials and syringes from pharmacy. Requesting insulin pen and pen needles in place of insulin vials and syringes. Reported family history of diabetes. Discussed complications for mom and baby related to GDM. Ra ndom BG 75 today 08/09/24. Reviewed rapid and long acting insulin action times and recommended administration sites, timing and site rotation. Demonstrated and reviewed insulin pen and vial and syringeadministration steps. Able to demonstrate correct insulin pen administration steps. Referred to Diabetes Self- Management Support Plan in folder. Discussed plan to check blood sugar four times daily, fasting and 1 hour after meals including sending them to weekly on Thursday night/Thursday and being active 30 minutes most days of the week with logging this on BG log weekly. Noted will contact weekly regarding BG log being reviewed and instructions/recommendations. Face to face time 75 minutes. . * IVONNE Villalobos - 08/09/2024 10:30 [...] weekly Educational Level Masters Family issues stable Cultural/ethnic/yazdanism influences denies Exercise approved by MD? Yes Current Exercise program walking Who prepares the meal Spouse Who purchase food at your home? Both Equipment use for cooking/food storage Has everything Food Assistance(Ex.WIC, Food [place]) Declined Dining out Yes Lunch everyday during the school year, once a week Appetite/Appetite changes Eats because she has to Weight History Lost quite a bit of weight prior to but has gained weight now Do you have cats at home? Feeding Plans Formula Feeding If you have [...] reporting her pre weight as 160 pounds. oJnna said that she had lost a lot [...] 2 day food log. Please refer to [employer] its for other goals. Reviewed the Diabetes [...] documented in this encounter Plan of Treatment Not on file documented as of this encounter Visit Diagnoses Diagnosis Gestational diabetes mellitus (GDM) in third trimester, gestational diabetes method of control unspecified documented in this encounter
--- OUTSIDE RECORDS SUMMARY | 2024-08-09 15:00 | XMS_ITS | Encounter Summary ---
Author Organization [facility] Address [address] [place] [address] Care Team Providers Care Switch Tender Name Role Phone Juaquin Rae Amira SORIA Primary Care Provider [phone] Encounter Details Date Type Department Care Team (Latest Contact Info) Description 08/09/2024 3:00 PM EDT Ancillary Procedure [facility] [address] [place] [address] 28 weeks gestation of ; Multigravida of advanced maternal age in third trimester Social History Tobacco Use Types Packs/Day Years [...] Description 08/17/2024 11:00 AM EDT Routine [facility] [address] [place] [address] Matt Stapleton DO [facility] [address] [place], [place] [id number] 10/26/2024 4:00 PM EDT Office Visit [facility] [address] [place] [address] Matt Stapleton, DO [address] [facility] [place] [address] documented as of this encounter Goals Goal Patient Goal Type Associated Problems Recent Progress Patient-Stated? Author Reminders Care Plan OB Reminders No Open Scheduling, Background documented as of this encounter Procedures Procedure Name Priority Date/Time Associated Diagnosis Comments US OB FOLLOW UP TRANSABDOMINAL APPROACH Routine 08/09/2024 3:32 PM EDT 28 weeks gestation of Multigravida of advanced maternal age in third trimester documented in this encounter Results * US OB follow up transabdominal approach (08/09/2024 3:32 PM EDT) Anatomical Region Laterality Modality Body Ultrasound 08/11/2024 8:53 AM EDT Narrative 08/11/2024 8:53 AM EDT EXAM: US OB FOLLOW UP TRANSABDOMINAL APPROACH HISTORY: AMA. COMPARISON: Ob ultrasound 07/12/2024. TECHNIQUE: Two-dimensional transabdominal grayscale ultrasound imaging of the pelvis was performed. FINDINGS: Gestation: Single Presentation: Cephalic Cardiac Activity: 145 beats per minute Amniotic Fluid Index: 16.6 cm MEASUREMENTS: BPD: 9.1 cm EGA: 36 weeks 6 days HC: 31.8 cm EGA: 35 weeks 5 days AC: 32.6 cm EGA: 36 weeks 4 days FL: 6.3 cm EGA: 32 weeks 5 days HC/AC Ratio: 0.97 The gestational age by today's ultrasound is 35 weeks 3 days (+/- 17 days gestation). Estimated Weight: 2695 grams, +/- 404 grams ( 5 lb 15 oz). Weight Percentile for gestational age: > 97 % IMPRESSION: 1. Single, live intrauterine gestation 32 weeks, 3 days by LMP. Today's ultrasound measurements correlate with a gestational age of 35 weeks 3 days. Estimated weight is 2695 grams, +/- 404 grams ( 5 lb 15 oz) which correlates to > 97 %. AMALIA is 09/10/2024. 2. growth is large for gestational age. Interpreted by: Electronically signed by BELA MARIA II, MD, PHD at 11-Aug-2024 08:51:27 AM [facility] Procedure Note Bela Maria MD - 08/11/2024 EXAM: US OB FOLLOW UP TRANSABDOMINAL APPROACH HISTORY: AMA. COMPARISON: Ob ultrasound 07/12/2024. TECHNIQUE: Two-dimensional transabdominal grayscale ultrasound imaging ofthe pelvis was performed. FINDINGS: Gestation: Single Presentation: Cephalic Cardiac Activity: 145 beats per minute Amniotic Fluid Index: 16.6 cm MEASUREMENTS: BPD: 9.1 cm EGA: 36 weeks 6 days HC: 31.8 cm EGA: 35 weeks 5 days AC: 32.6 cm EGA: 36 weeks 4 days FL: 6.3 cm EGA: 32 weeks 5 days HC/AC Ratio: 0.97 The gestational age by today's ultrasound is 35 weeks 3 days (+/- 17 daysgestation). Estimated Weight: 2695 grams, +/- 404 grams ( 5 lb 15 oz). Weight Percentile for gestational age: > 97 % IMPRESSION: 1. Single, live intrauterine gestation 32 weeks, 3 days by LMP. Today'sultrasound measurements correlate with a gestational age of 35 weeks 3days. Estimated weight is 2695 grams, +/- 404 grams ( 5 lb 15 oz)which correlates to > 97 %. AMALIA is 09/10/2024. 2. growth is large for gestational age. Interpreted by: Electronically signed by BELA MARIA II, MD, PHD [id number] 08:51:27 AM [facility] Matt Stapleton DO [facility] OB US PROCEDURES Final Resul t documented in this encounter Visit Diagnoses Diagnosis 28 weeks gestation of Multigravida of advanced maternal age in third trimester documented in this encounter Additional Health Concerns Active Problems Noted Date Diagnosed Date OB Reminders 04/14/2024 documented as of this encounter Care Teams Switch Tender Relationship Specialty Start Date End Date Juaquin Rae DO [address] [place] [address] PCP - General Family Medicine 07/15/22 documented as of this encounter
--- OUTSIDE RECORDS SUMMARY | 2024-08-15 13:30 | XMS_ITS | Encounter Summary ---
Author Organization [facility] tem Address [id number] [address] [place] [address] Care Team Providers Care Grades 9 12 Tutor Name Role Phone Unavailable Primary Care Provider Unavailabl e Encounter Details Date Type Department Care Team (Late st Contact Info) Description 08/15/2024 1:30 PM EDT Telemedicine Maternal- Medicine at [facility] [address] [place] [phone] Lucretia Art PA-C [address] [address] Gestational diabetes requiring insulin (Primary Dx) Social History Tobacco Use Types Packs/Day Years Used Date Smoking Tobacco: Never Smokeless Tobacco: Never Tobacco Cessation:Counseling Given: Not Answered Alcohol Use Standard Drinks/Week Comments Not Currently 0 (1 standard drink = 0.6 oz pur e alcohol) Hunger Screening Answer Date Recorded Within the [...] on file documented as of this encounter Progress Notes * Lucretia Art PA-C - 08/15/2024 1:30 PM EDT Maternal- Medicine Consultation VIDEO Patient is present at work, provider present at [facility] HISTORY OF PRESENT ILLNESS: Jonna Weller is a 38 y.o. female at 33w2d due on Estimated Date of Delivery: 10/01/24 complicated by GDMA2, and recently elevated BP in . Patient is feeling well today. She denies contractions, vaginal bleeding, leaking fluid. She appreciates movement. Patient has been having intermittent headaches, also having spots in eyes. Has noticed increasing swelling in her feet/legs, also some tightness in her fingers. No chest pain, SOB. Had elevated BP of140 at her NST Thursday, had pre-e labs drawn by her OB today and reports that her 24hr urine proteinwas 322, Plts were 148, Cr 0.4, AST 13, unable to find ALT, uric acid 2.8 BG log review since starting insulin: F: 95-99 PPB:156-187 - had breakfast burrito with eggs, meat PPL: 99, 178 PPD: 138, 119 Denies any values <60 day or night Now taking PO Fe LMP 12/18/2023 PAST OBSTETRICAL HISTORY: OB History 6 Para 3 Term 3 AB 2 Living SAB 2 IAB Ectopic Multiple Live Births SURGICAL HISTORY: Past Surgical History: Procedure Laterality Date CHOLECYSTECTOMY 2009 CYST REMOVAL 2012 BACK TONSILLECTOMY 1992 ALLERGIES: Allergies Allergen Reactions Cat Dander Latex Loracarbef Nsaids (Non-Steroidal Anti-Inflammatory Drug) CURRENT MEDICATIONS: Current Outpatient Medications: insulin glargine (LANTUS SOLOSTAR U-100 INSULIN) 100 unit/mL (3 mL) insulin pen, Inject 10 units, subq, every evening. Prime with 2 units before each injection., Disp: 15 mL, Rfl: 2 metoclopramide (REGLAN) 10 mg tablet, Take 1 tablet (10 mg total) by mouth in the morning and 1 tablet (10 mg total) at noon and 1 tablet (10 mg total) in the evening and 1 tablet (10 mg total) before bedtime. (Patient not taking: Reported on 08/09/2024), Disp: , Rfl: ondansetron ODT (ZOFRAN ODT) 4 mg disintegrating tablet, Dissolve 1 tablet (4 mg total) on tongue every 8 (eight) hours as needed for nausea or vomiting. (Patient not taking: Reported on 08/09/2024), Disp: , Rfl: pen needle, diabetic 32 gauge x needle, Use to inject insulin once daily as prescribed. Use anew pen needle for each insulin pen injection., Disp: 100 each, Rfl: 1 polysaccharide iron complex 180 mg iron capsule, Take 1 tablet by mouth in the morning., Disp: , Rfl: promethazine (PHENERGAN) 12.5 mg tablet, Take 1 tablet (12.5 mg total) by mouth every 6 (six) hoursas needed for nausea or vomiting., Disp: , Rfl: LABS: No results found for: TSH , T3 , TOTALT4 , THYROIDAB No components found for: UPRC No results found for: CREATININE , BUN , NA , K , CL , CO2 No results found for: ALT , AST , GGT , ALKPHOS , LABBILI No results found for: HGBA1C No components found for: POCA1C REVIEW OF SYSTEMS: Head and Neck: Negative for any dizziness and headaches. Cardiovascular and Respiratory System: Denies any chest pain, shortness of breath, and coughing. Abdominal and System: Denies any abdominal pain, nausea, vomiting, vaginal bleeding, and vaginaldischarge PHYSICAL EXAMINATION: Gen: NAD DISCUSSION Gestational diabetes is a is a state of carbohydrate intolerance with subsequently insulin resistance and hyperglycemia. This is a malfunction or dysfunction of glucose sensors in the liver with inappropriate release of glucose followed by hyperinsulinemia followed by normal insulin secretion and th en relatively deficiency in insulin secretion resulting in both hyperglycemia and associated hypertriglyceridemia. This along with placental hormones such as human placental lactogen and TNF alpha cause hyperglycemia. The patient eventually develops insulin resistance and hyperglycemia Thus the patient's insulin is not sufficient to achieve a normal glycemic state. I informed the patient that maternal hyperglycemia results in hyperglycemia leading to adverse outcomes in the growth and development. We reviewed the implications and risks of diabetes in . Diabetes in is associated with poorer outcomes if blood glucose levels are not well controlled. Potential effects of uncontrolled diabetes , or hyperglycemia, include: macrosomia, hypoglycemia, shoulder dystocia, delivery by section, polyhydramnios, and demise. In addition, women with diabetes in are at increased risk of developing hypertension diseases in ,such as gestational hypertension, or preeclampsia. Patient was explained that the high risk of shoulder dystocia in fetuses with EFW 4500 gm or higher. Long-term risk to offspring from poor maternal glycemic control include: obesity, cardiovascular disease, impaired glucose tolerance and Type 2 diabetes. Glucose goals in : Fasting 60 - 95: Mean fasting glucose values are important in managing diabetes in women because they provide overall glycemic estimate, and are predictive of increased fat mass in the women???s offspring. Increased fat mass has been shown to be associated with the development of childhood obesity, and diabetes. One hour postprandial 90 - 140: Postprandial measurements are important in management of diabetes in because they are associated with incidence of large for gestational age infants, and lower rates of delivery for cephalopelvic disproportion when well controlled. Discussed monitoring for hypogylcemia, signs/symptoms of hypoglycemia, and examples of treatment ofhypoglycemia (1515 rule). Discussed her current diet and her awareness of grams of carbohydrate per meal. Reviewed recommendations - 30g carbohydrate for breakfast, 45-60g carbohydrate for lunch and dinner, 15g carbohydrate for snacks, incorporating sufficient protein with each meal and ideally having half of plate be fruits and vegetables (with awareness of which fruits typically spike blood glucose). Encouraged her to be aware of carbohydrate intake and note which foods causing values above goal. Encouraged her on diet modifications. PLAN - Current blood glucose control: elevated fastings and PPB levels - Medication: - Lanuts 10 units - increase to 14 units - discussed probable need for rapid insulin with breakfast, however given my concern for her newly diagnosed preeclampsia, I recommend she focus on getting to OB triage, and we will readdress her BG levels pending her evaluation today - Labs - A1c - recommend - growth ultrasounds every 4 weeks after 28 weeks - Last growth done 08/11, EFW >97th at outside OB - Recommend the following for testing, which can be done with primary OB: - NST and SHIVANI once weekly at 32 weeks - NST twice weekly and SHIVANI once weekly at 36 weeks - Delivery recommendations : - From what patient tells me were her blood pressures and lab results, I discussed she has met criteria for preeclampsia without severe features, and recommended timing of delivery is 37 weeks. She is at risk to develop preeclampsia with severe features, which if diagnosed, would alter timing of del sheila - Discuss delivery if estimated weight is >4500g - Use 1/2 dose of insulin the night before her planned delivery - Given GDMA2, can monitor patient's BG every 4hrs during latent labor, every 1 hr during active labor with goal BG to be less than 140mg/dl. Can use insulin sliding scale prn hyperglycemia. Once delivered, checked blood glucose fasting and 1hr post prandial, with goal of 100-130mg/dl for fasting and <180mg/dl for random or post prandial blood glucose levels - Obtain a 2-hour GTT 6-8 weeks . Also recommend yearly evaluation of blood glucose as patient is at an increased risk of developing diabetes later on Patient advised to go to OB triage as soon as she can - patient has met criteria for preeclampsia without severe features per reported BP of 140 at NST on 08/12, 24hrs protein results of 322. It also appears her Plts have dropped from 200 on initial labs to 148 today. She is having LE edema,headaches, and spots in vision. Stressed importance she go to nearest OB triage - she said she would do so. Called patient's OB office - I left a voicemail Follow up with Maternal- Medicine pending patient's evaluation today I asked her to keep sending values to us weekly by e-mail to: or by fax to: [phone] Lucretia Art PA-C Maternal- Medicine Office phone: [phone] Lucretia Art PA-C 08/15/24 2905 documented in this encounter Plan of Treatment Scheduled Orders Name Type Priority Associated Diagnoses Orde r Schedule Hemoglobin A1c Lab Routine Gestational diabetes requiring insulin 1 Occurrences starting 08/15/2024 until 08/15/2025 documented as of this encounter Visit Diagnoses Diagnosis Gestational diabetes requiring insulin- Primary Abnormal maternal glucose tolerance, complicating , childbirth, or the puerperium, unspecified as to episode of care documented in this encounter
--- OUTSIDE RECORDS SUMMARY | 2024-08-15 16:19 | XMS_ITS | Encounter Summary ---
Author Organization [facility] Address [address] [place] [address] Care Team Providers Care Admitting Officer Name Role Phone Juaquin Rae DO Primary Care Provid er Source Comments In the event this information is protected by the Federal Confidentiality of Alcohol and Drug AbusePatient Records regulations: The Federal rules restrict any use of the information to criminally investigate or prosecute any alcohol or drug abuse patient.[facility] Encounter Details Date Type Department Care Team (Late st Contact Info) Description 02/08/2018 Patient Msg Dermatology [address] [place] [address] Provider, Ccf Appointment tomorrow Social [...] on filedocumented in this encounter Care Teams Admitting Officer Relationship Specialty Start Date End Date Juaquin Rae DO [address] [facility] [address] [place] [address] PCP - General Family Medicine 06/10/16 documented as of this encounter
--- OUTSIDE RECORDS SUMMARY | 2024-08-15 16:19 | XMS_ITS | Encounter Summary ---
Author Organization [facility] Address [address] [place] [address] Care Team Providers Care Crisis Nurse Name Role Phone Juaquin Rae Primary Care Provider +1- [phone] Encounter Details Date Type Department Care Team (Late st Contact Info) Description 11/21/2023 Clinisync Result Encounter [facility] External Department Unsolicited Neisha Stapleton, DO [address] [place], [facility] Social History Tobacco Use Types Packs/Day Years [...] Routine [facility] OB [address] [place] [address] Neisha Stapleton DO [address] [place], [facility] 10/26/2024 4:00 PM EDT Office Visit [facility] [address] [place] [address] Neisha Stapleton, DO [address] [place] [address] documented as of this encounter Procedures Procedure Name Priority Date/Time Associated Diagnosis Comments US PELVIS W/ TRANSVAGINAL 11/21/2023 9:17 AM EDT documented in this encounter Results * US PELVIS W/ TRANSVAGINAL (11/21/2023 9:17 AM EDT) Anatomical Region Laterality Modality Other 11/21/2023 9:17 AM EDT Narrative 11/21/2023 9:20 AM EDT [place] [id number] Ultrasound Report Signed Patient: MICHAEL ROQUE MR#: [id number] : 1985 Acct:[id number] Age/Sex: 38 / F ADM Date: 11/21/23 Loc: US Attending Dr: Neisha Stapleton D.O. Ordering Physician: Neisha Stapleton D.O. Date of Service: 11/21/23 Procedure(s): US pelvis w/ transvaginal Accession Number(s): [id number] cc: Neisha Stapleton D.O.; Physician,Non-Staff M.DJonathan [address] [address] Patient Name: MICHAEL ROQUE MRN: [id number] date: 1985 Sex: F Assigned Patient Location: US Current Patient Location: US Accession/Order Number: [id number] Exam Date: 11/21/2023 08:14 Report Date: 11/21/2023 [...] M.D. Signed By: 11/21/23919 DD/ 6 TD/TT: Customer Technical Services Manager: Procedure Note Radiology, Radiologist, MD - 11/21/2023 [place] [address] Ultrasound Report Signed Patient: MICHAEL ROQUE RMR#: [id number] : 1985Acct:[id number] Age/Sex: 38 / FADM Date: 11/21/23 Loc: US Attending Dr: Neisha Stapleton D.O. Ordering Physician: Neisha Stapleton D.O. Date of Service: 11/21/23 Procedure(s): US pelvis w/ transvaginal Accession Number(s): [id number] cc: Neisha Stapleton D.O.; Physician,Non-Staff [place] [facility] [place] [id number] Patient Name: MICHAEL ROQUE MRN: [id number] date: 1985 Sex: F Assigned Patient Location: US Current Patient Location: US Accession/Order Number: [id number] Exam Date: 11/21/2023 08:14 Report Date: 11/21/2023 [...] Wolff M.D. Signed By:11/21/23919 DD/ 6 TD/TT: Customer Technical Services Manager: us Neisha Daya DO [facility] Final Result documented in this encounter Visit Diagnoses Not on filedocumented in this encounter Care Teams Crisis Nurse Relationship Specialty Start Date End Date Juaquin Rae DO [address] [facility] [address] [place] [address] PCP - General Family Medicine 07/15/22 documented as of this encounter
--- OUTSIDE RECORDS SUMMARY | 2024-08-15 16:20 | XMS_ITS | Encounter Summary ---
Author Organization [facility] Address [address] [place] [address] Care Team Providers Care Leadership Program Internship Name Role Phone Juaquin Rae DO Primary Care Provider +1- [phone] Encounter Details Date Type Department Care Team (Late st Contact Info) Description 04/05/2024 Abstract [facility] [address] [place] [address] [place] [phone] Juaquin Rae, DO [address] [place] [address] [place] [address] Social History Tobacco Use Types Packs/Day Years [...] [facility] B[facility] OB [address] [place] [phone] Matt Stapleton DO [address] [place] [address] 10/26/2024 4:00 PM EDT Office Visit [facility] [address] [place] [address] Matt Stapleton, [address] [facility] [place] [address] documented as of this encounter Visit Diagnoses Not on filedocumented in this encounter Care Teams Leadership Program Internship Relationship Specialty Start Date End Date Juaquin Rae DO [address] [facility] [address] [place] [address] PCP - General Family Medicine 07/15/22 documented as of this encounter
--- OUTSIDE RECORDS SUMMARY | 2024-08-15 16:20 | XMS_ITS | Encounter Summary ---
Author Organization [facility] Address [address] [place] [address] Care Team Providers Care Director Of Financial Aid Name Role Phone KeenanJuaquin pittman Amira SORIA Primary Care Provider +1- [phone] Encounter Details Date Type Department Care Team (Late st Contact Info) Description 03/11/2024 Abstract [facility] OB [address] [place] [phone] Matt Stapleton [facility] [address] [place], [place] [address] Social History Tobacco Use Types Packs/Day Years [...] Description 08/17/2024 11:00 AM EDT Routine [facility] OB [address] [place] [address] Matt Stapleton DO [facility] [address] [place], [place] [address] 10/26/2024 4:00 PM EDT Office Visit [facility] [address] Matt Stapleton, [address] [facility] [place] [address] documented as of this encounter Visit Diagnoses Not on filedocumented in this encounter Care Teams Director Of Financial Aid Relationship Specialty Start Date End Date Juaquin Rae DO [address] [facility] [address] [place] [address] PCP - General Family Medicine 07/15/22 documented as of this encounter
--- OUTSIDE RECORDS SUMMARY | 2024-08-15 16:20 | XMS_ITS | Encounter Summary ---
Author Organization [facility] Address [address] [place] [address] Care Team Providers Care Credit Card Clerk Name Role Phone ButchJuaquin Amira SORIA Primary Care Provider +1- [phone] Encounter Details Date Type Department Care Team (Late st Contact Info) Description 08/11/2024 Telephone [facility] OB [address] [place] [address] [place] [phone] Maria Victoria Zelaya LPN Social History Tobacco [...] as of this encounter Miscellaneous Notes * Telephone Encounter - Maria Victoria Zelaya LPN - 08/11/2024 2:45 PM EDT 1:02pm Patient called and LMOM stating that she had a few concerns she would like to discuss and would like for a nurse to return her call. 2:46pm Called patient and patient voiced that she is having lower extremity swelling and she is no longer able to bend her ankles. Patient would like to know at what point does this become concerning? Patient stated that she is having visual changes as well with seeing spots. Patient history of BP reads have been within normal limits, but patient voiced that readings are higher than her normal. Informed patient that with the heat increasing along with humidity she will see an increase in swelling and that hydration is important. Patient voiced that she is hydrated and that would not be one ofthe causes. Informed patient that labs along with 24 hour urine could be ordered and sent to [facility] lab and [facility] scheduling. PVU and will continue to monitor symptoms and also continue with her NST/BPPs.Maria Victoria Jennings LPN documented in this encounter Plan of Treatment Upcoming Encounters Date Type Department Care Team (Late st Contact Info) Description 08/17/2024 11:00 AM EDT Routine [facility] B[facility] OB [address] [facility] [place] [address] Matt Stapleton, DO [address] [place] [address] [place] [address] 10/26/2024 4:00 PM EDT Office Visit [facility] [address] [facility] [address] Matt Stapleton, DO [address] [facility] [place] [address] Scheduled Orders Name Type Priority Associated Diagnoses Orde r Schedule Creatinine Lab Routine Localized swelling of both lower extremities Visual changes Third trimester Expected: 08/11/2024 (Approximate), Expires: 08/11/2025 Protein, urine, 24 hour Lab Routine Localized swelling of both lower extremities Visual changes Third trimester Expected: 08/11/2024 (Approximate), Expires: 08/11/2025 Pt and ptt Lab Routine Localized swelling of both lower extremities Visual changes Third trimester Expected: 08/11/2024, Expires: 08/11/2025 CBC and differential Lab Routine Localized swelling of both lower extremities Visual changes Third trimester Expected: 08/11/2024 (Approximate), Expires: 08/11/2025 Uric acid Lab Routine Localized swelling of both lower extremities Visual changes Third trimester Expected: 08/11/2024 (Approximate), Expires: 08/11/2025 Lactate dehydrogenase Lab Routine Localized swelling of both lower extremities Visual changes Third trimester Expected: 08/11/2024, Expires: 08/11/2025 ALT Lab Routine Localized swelling of both lower extremities Visual changes Third trimester Expected: 08/11/2024 (Approximate), Expires: 08/11/2025 AST Lab Routine Localized swelling of both lower extremities Visual changes Third trimester Expected: 08/11/2024 (Approximate), Expires: 08/11/2025 BUN Lab Routine Localized swelling of both lower extremities Visual changes Third trimester Expected: 08/11/2024, Expires: 08/11/2025 documented as of this encounter Goals Goal Patient Goal Type Associated Problems Recent Progress Patient-Stated? Author Reminders Care Plan OB Reminders No Open Scheduling, Background documented as of this encounter Visit Diagnoses Diagnosis Localized swelling of both lower extremities Visual changes Third trimester state, incidental documented in this encounter Additional Health Concerns Active Problems Noted Date Diagnosed Date OB Reminders 04/14/2024 documented as of this encounter Care Teams Credit Card Clerk Relationship Specialty Start Date End Date uJaquin Rae DO [address] [address] PCP - General Family Medicine 07/15/22 documented as of this encounter
--- OUTSIDE RECORDS SUMMARY | 2024-08-15 16:20 | XMS_ITS | Continuity of Care Document ---
Author Organization [facility] Address [address] [place] [address] Insurance Providers Payer Plan Claims Address Claims Phone Policy Number Group Number Relation Employer Guarantor Name Guarantor Guarantor Address Guarantor Phone [employer] [address], [place] [address] [id number] Self Jonna Rodriguez [address] [place] [id number] [employer] [place] [address] [id number] Self Jonna Rodriguez 1985 [address] [place] [address] Problems Unknown Problems Results No Results Allergies, adverse reactions, alerts No known allergies and adverse reactions Medications No administered medications reported Vital Signs Date Vital Result Comment 11/30/2022 Body Height 1.750894093150 m Body Weight 92.034417366062 kg Body Mass Index 34.11 kg/m2 Social History No smoking Hx information available
--- OUTSIDE RECORDS SUMMARY | 2024-08-15 16:20 | XMS_ITS | Encounter Summary ---
Author Organization [facility] Address [address] [place] [address] Care Team Providers Care Numerical Control Drill Press Operator Name Role Phone KeenanJuaquin pittman Amira SORIA Primary Care Provider +1- [phone] Encounter Details Date Type Department Care Team (Late st Contact Info) Description 02/16/2024 Abstract [facility] OB [address] [place] [phone] Matt Stapleton [facility] [address] [place], [place] [address] Social History Tobacco Use Types Packs/Day Years [...] Description 08/17/2024 11:00 AM EDT Routine [facility] OB [address] [place] [address] Matt Stapleton DO [facility] [address] [place], [place] [address] 10/26/2024 4:00 PM EDT Office Visit [facility] [address] Matt Stapleton, [address] [facility] [place] [address] documented as of this encounter Visit Diagnoses Not on filedocumented in this encounter Care Teams Numerical Control Drill Press Operator Relationship Specialty Start Date End Date Juaquin Rae DO [address] [facility] [address] [place] [address] PCP - General Family Medicine 07/15/22 documented as of this encounter
--- OUTSIDE RECORDS SUMMARY | 2024-08-15 16:20 | XMS_ITS | Encounter Summary ---
Author Organization [facility] Address [address] [place] [address] Care Team Providers Care Credit Reporting Clerk Name Role Phone Juaquin Rae Primary Care Provider +1- [phone] Encounter Details Date Type Department Care Team (Late st Contact Info) Description 08/14/2024 Clinisync Result Encounter [facility] External Department Unsolicited Matt Stapleton [facility] [address] [place], [place] [id number] Social History Tobacco Use Types Packs/Day Years [...] Routine [facility] BCP OB [address] [place] [address] Matt Stapleton DO [facility] [address] [place], [place] [id number] 10/26/2024 4:00 PM EDT Office Visit [facility] BCP OB [address] [place] [address] Matt Stapleton DO [address] [facility] [place] [address] documented as of this encounter Goals Goal Patient Goal Type Associated Problems Recent Progress Patient-Stated? Author Reminders Care Plan OB Reminders No Open Scheduling, Background documented as of this encounter Procedures Procedure Name Priority Date/Time Associated Diagnosis Comments TBH TOTAL PROTEIN 24 HOUR URINE Routine 08/14/2024 7:54 AM EDT documented in this encounter Results * (ABNORMAL) TBH TOTAL PROTEIN 24 HOUR URINE (08/14/2024 7:54 AM EDT) TOTAL PROTEIN URINE RANDOM 20.8(H) <=11.9 mg/dL TBH TOTAL VOLUME 24 HOUR URINE 1,550 mL/24hr TBH TBH TOTAL PROTEIN 24 HOUR URINE 322.4(H) <=149.1 mg/24hr TBH 08/14/2024 7:54 AM EDT 08/14/2024 1:02 PM EDT Narrative [facility] - 08/14/2024 1:39 PM EDT START TIME:0754 END TIME:45 TOTAL VOLUME:1550 Matt Stapleton DO [facility] Final Result [facility] documented in this encounter Visit Diagnoses Not on filedocumented in this encounter Additional Health Concerns Active Problems Noted Date Diagnosed Date OB Reminders 04/14/2024 documented as of this encounter Care Teams Credit Reporting Clerk Relationship Specialty Start Date End Date Juaquin Rae DO [address] [place] [address] PCP - General Family Medicine 07/15/22 documented as of this encounter
--- OUTSIDE RECORDS SUMMARY | 2024-08-15 16:20 | XMS_ITS | Encounter Summary ---
Author Organization [facility] Address [address] [place] [address] Care Team Providers Care Neuropsychology Medical Consultant Name Role Phone KeenanJuaquin pittman Amira SORIA Primary Care Provider +1- [phone] Encounter Details Date Type Department Care Team (Late st Contact Info) Description 03/14/2024 Abstract [facility] [address] [place] [address] Matt Stapleton [facility] [address] [place], [place] [address] Social History Tobacco Use Types Packs/Day Years [...] BEHAVIORAL HEALTH OB [address] [place] [address] Matt Stapleton DO [facility] [address] [place], [place] [address] 10/26/2024 4:00 PM EDT Office Visit [facility] [address] Matt Stapleton, [address] [facility] [place] [address] documented as of this encounter Visit Diagnoses Not on filedocumented in this encounter Care Teams Neuropsychology Medical Consultant Relationship Specialty Start Date End Date Juaquin Rae DO [address] [facility] [address] [place] [address] PCP - General Family Medicine 07/15/22 documented as of this encounter
--- OUTSIDE RECORDS SUMMARY | 2024-08-15 16:20 | XMS_ITS | Encounter Summary ---
Author Organization [facility] Address [address] [place] [address] Care Team Providers Care Steam Engineer Name Role Phone Juaquin Rae Primary Care Provider +1- [phone] Encounter Details Date Type Department Care Team (Late st Contact Info) Description 2023 Orders Only [facility] OB [address] [place] [address] Susi Hurtado [address] [place] [address] Social History Tobacco Use Types Packs/Day Years [...] Description 08/17/2024 11:00 AM EDT Routine [facility] OB [address] [place] [address] Matt Stapleton DO [address] [place], [place] [address] 10/26/2024 4:00 PM EDT Office Visit [facility] BCP OB [address] [place] [address] Matt Stapleton, [address] [place] [address] documented as of this encounter Procedures Procedure Name Priority Date/Time Associated Diagnosis Comments PAP SMEAR Routine 10/20/2023 12:00 AM EDT documented in this encounter Results * Pap Smear (10/20/2023 12:00 AM EDT) Swab Cervical swab / Unknown us Matt Stapleton DO LAB CYTOLOGY ORDERABLES Final Re sult EXTERNAL LAB documented in this encounter Visit Diagnoses Not on filedocumented in this encounter Care Teams Steam Engineer Relationship Specialty Start Date End Date Juaquin Rae DO [address] [place] [address] PCP - General Family Medicine 07/15/22 documented as of this encounter
--- OUTSIDE RECORDS SUMMARY | 2024-08-15 16:20 | XMS_ITS | Clinical Summary ---
Author Organization [facility] [employer] tem Address [id number] [address] [place] [address] Care Team Providers Care Nuclear Physics Teacher Name Role Phone Unavailable Primary Care Provider Unavailabl e Allergies Active Allergy Reactions Criticality Noted Date Comments Cat Dander 08/03/2024 Latex 08/03/2024 Loracarbef 08/03/2024 Nsaids (Non-Steroidal Anti-I nflammatory Drug) 08/03/2024 Medications promethazine (PHENERGAN) 12.5 mg tablet Take 1 tablet (12.5 mg total) by mouth every 6 (six) hours as needed for nausea or vomiting. Active polysaccharide iron complex 180 mg iron [...] needed for nausea or vomiting. Active insulin glargine (LANTUS SOLOSTAR U-100 INSULIN) 100 unit/mL (3 mL) insulin penIndications:Ins ulin controlled gestational diabetes mellitus (GDM) in third trimester Inject 10 units, subq, every evening. Prime with 2 units before each injection. 15 mL 2 Active pen needle, diabetic 32 gauge x needleIndications: Insulin controlled gestational diabetes mellitus (GDM) in third trimester Use to inject insulin once daily as prescribed. Use a new pen needle for each insulin pen injection. 100 each 1 5 Active insulin NPH (HumuLIN N,NovoLIN N) 100 unit/mL injection Inject under the skin in the morning and in the evening. Inject with meals. 025 Discontin ued(Alter eder therapy) insulin NPH and regular human (HumuLIN 70-30,NovoLIN 70-30) 100 unit/mL (70-30) injection Inject under the skin in the morning and in the evening. Inject before meals. 025 Discontin ued(Error ) insulin NPH and regular human (HumuLIN 70-30,NovoLIN 70-30) 100 unit/mL (70-30) injection Inject under the skin in the morning and in the evening. Inject before meals. Stated not taking . 025 Discontin ued(Pregn monika) Active Problems Problem Noted Date Diagnosed Date Gestational diabetes requiring insulin Estimated Date of Delivery Comme nts Yes 10/01/2024 Based on Ultraso und Encounters Date Type Department Care Team Description 08/15/2024 1:30 PM EDT Telemedicine Maternal- Medicine at [facility] [address] [place] [address] Lucretia Art PA-C Gestational diabetes requiring insulin (Primary Dx) 08/15/2024 Travel 08/09/2024 10:30 AM EDT Support Visit Maternal- Medicine at [facility] [address] [place] [address] Noelle Johnston, RN Ignacia Carvalho LD Gestational diabetes mellitus (GDM) in third trimester, gestational diabetes method of control unspecified 08/09/2024 Telephone Maternal- Medicine at [facility] [address] [place] [address] Noelle Johnston RN 08/09/2024 Orders Only Maternal- Medicine at [facility] [address] [place] [address] Noelle Johnston RN Insulin controlled gestational diabetes mellitus (GDM) in third trimester (Primary Dx) 08/09/2024 Orders Only Maternal- Medicine at [facility] [address] [place] [address] Bárbara Canas, CRATE OPENER-CNM Insulin controlled gestational diabetes mellitus (GDM) in third trimester (Primary Dx) 08/09/2024 Travel 08/04/2024 Orders Only Maternal- Medicine at [facility] [address] [place] [address] Ref Prov, Not In System 08/03/2024 Orders Only Maternal- Medicine at [facility] [address] [place] [address] Ref Prov, Not In System 08/03/2024 Abstract Maternal- Medicine at [facility] [address] [place] [address] External, Scanning Provider from Last 3 Months Family History Medical History Relation Name Comments Diabetes Maternal Grandfather Gestational diabetes Sister Relation Name Status Comments [...] Mass Index - - Plan of Treatment Health Maintenance Due Date Last Done Comments Depression Screening 1999 Tobacco Screening 1999 Adult BMI Screening 10/26/2005 DTaP,Tdap and Td Vaccines (1 - Tdap) 10/26/2006 COVID-19 Vaccine (3 - season) 2023, 10/04/2020 Influenza Vaccine 11/07/2024 Pap [...] ORDERABLES Melanie l Result Performing Organization Address City/[facility]/ZIP Co de Phone Number MANUALLY TRANSCRIBED RESULTS * Platelet count (06/30/2024) Platelets 152 MANUALLY TRANSCRIBED RESULTS Blood Venous blood / Unknown us Not In System Ref Prov LAB BLOOD ORDERABLES Melanie l Result Performing Organization Address City/[facility] Co de Phone Number MANUALLY TRANSCRIBED RESULTS from Last 3 Months Insurance [employer]
--- OUTSIDE RECORDS SUMMARY | 2024-08-15 16:20 | XMS_ITS | Encounter Summary ---
Author Organization [facility] Address [address] [place] [address] Care Team Providers Care Venetian Blind Assembler Name Role Phone KeenanJuaquin pittman Amira SORIA Primary Care Provider +1- [phone] Encounter Details Date Type Department Care Team (Late st Contact Info) Description 08/02/2024 Abstract [facility] OB [address] [place] [address] Matt Stapleton [facility] [place], [place] [address] Social History Tobacco Use Types Packs/Day Years [...] Description 08/17/2024 11:00 AM EDT Routine [facility] [address] [place] [address] Matt Stapleton DO [facility] [address] [place], [place] [address] 10/26/2024 4:00 PM EDT Office Visit [facility] [address] Matt Stapleton, DO [address] [facility] [place] [address] documented as of this encounter Goals Goal Patient Goal Type Associated Problems Recent Progress Patient-Stated? Author Reminders Care Plan OB Reminders No Open Scheduling, Background documented as of this encounter Visit Diagnoses Not on filedocumented in this encounter Additional Health Concerns Active Problems Noted Date Diagnosed Date OB Reminders 04/14/2024 documented as of this encounter Care Teams Venetian Blind Assembler Relationship Specialty Start Date End Date Juaquin Rae DO [address] [facility] [address] [place] [address] PCP - General Family Medicine 07/15/22 documented as of this encounter
--- OUTSIDE RECORDS SUMMARY | 2024-08-15 16:20 | XMS_ITS | Encounter Summary ---
Author Organization [facility] Address [id number] [address] [place] [address] Care Team Providers Care Rn Ent Name Role Phone Unavailable Primary Care Provider [...]
--- OUTSIDE RECORDS SUMMARY | 2024-08-15 16:20 | XMS_ITS | Encounter Summary ---
Author Organization [facility] Address [address] [place] [address] Care Team Providers Care Granite Setter Name Role Phone Juaquin Rae Amira SORIA Primary Care Provider +1- [phone] Encounter Details Date Type Department Care Team (Late st Contact Info) Description 02/09/2024 Clinisync Result Encounter [facility] External Department Unsolicited Neisha Stapleton, DO [address] [place], [facility] Social History Tobacco Use Types Packs/Day Years [...] Routine [facility] BCP OB [address] [place] [address] Neisha Stapleton DO [address] [place], [facility] 10/26/2024 4:00 PM EDT Office Visit [facility] BCP OB [address] [place] [address] Neisha Stapleton, DO [address] [place] [address] [phone] (work) documented as of this encounter Procedures Procedure Name Priority Date/Time Associated Diagnosis Comments US OB TRANSVAGINAL 02/09/2024 10 :09 AM EST documented in this encounter Results * US OB TRANSVAGINAL (02/09/2024 10:09 AM EST) Anatomical Region Laterality Modality Other 02/09/2024 10:0 9 AM EST Narrative 02/09/2024 10:12 AM EST [address] [address] Ultrasound Report Signed Patient: MICHAEL ROQUE MR#: [id number] : 1985 Acct:[id number] Age/Sex: 38 / F ADM Date: 02/09/24 Loc: [facility] Attending Dr: Neisha Stapleton D.O. Ordering Physician: Neisha Stapleton D.O. Date of Service: 02/09/24 Procedure(s): US OB transvaginal Accession Number(s): [id number] cc: Neisha Stapleton D.O.; Physician,Non-Staff M.Cristal [address] [address] Patient Name: MICHAEL ROQUE MRN: [id number] date: 1985 Sex: F Assigned Patient Location: [facility] Current Patient Location: [facility] Accession/Order Number: [id number] Exam Date: 02/09/2024 09:06 Report Date: 02/09/2024 [...] Signed By: 02/09/24 1012 DD/ 1009 TD/TT: Hub Inventory Specialist: Procedure Note Radiology, Radiologist, MD - 02/09/2024 [place] [address] Ultrasound Report Signed Patient: MICHAEL ROQUE RMR#: [id number] : 1985Acct:[id number] Age/Sex: 38 / FADM Date: 02/09/24 Loc: [facility] Attending Dr: Neisha Stapleton D.O. Ordering Physician: Neisha Stapleton D.O. Date of Service: 02/09/24 Procedure(s): US OB transvaginal Accession Number(s): [id number] cc: Neisha Stapleton D.O.; Physician,Non-Staff Ramiro The [address] [address] Patient Name: MICHAEL ROQUE MRN: [id number] date: 1985 Sex: F Assigned Patient Location: [facility] Current Patient Location: [facility] Accession/Order Number: [id number] Exam Date: 02/09/2024 09:06 Report Date: 02/09/2024 [...] M.D. Signed By:02/09/24 1012 DD/ 1009 TD/TT: Hub Inventory Specialist: us Neisha Stapleton DO [facility] Final Result documented in this encounter Visit Diagnoses Not on filedocumented in this encounter Care Teams Granite Setter Relationship Specialty Start Date End Date Juaquin Rae DO [address] [place] [address] PCP - General Family Medicine 07/15/22 documented as of this encounter
--- OUTSIDE RECORDS SUMMARY | 2024-08-15 16:20 | XMS_ITS | Encounter Summary ---
Author Organization [facility] Address [address] [place] [address] Care Team Providers Care Mold Setter Name Role Phone Juaquin Rae Primary Care Provider +1- [phone] Encounter Details Date Type Department Care Team (Late st Contact Info) Description 08/12/2024 Clinisync Result Encounter N[facility] External Department Unsolicited Neisha Stapleton [facility] [place], [place] [address] Social History Tobacco Use Types Packs/Day Years [...] Routine [facility] BCP OB [address] [place] [address] Neisha Stapleton DO [facility] [address] [place], [place] [address] 10/26/2024 4:00 PM EDT Office Visit [facility] BCP OB [address] [place] [address] Neisha Stapleton DO [address] [facility] [place] [address] documented as of this encounter Goals Goal Patient Goal Type Associated Problems Recent Progress Patient-Stated? Author Reminders Care Plan OB Reminders No Open Scheduling, Background documented as of this encounter Procedures Procedure Name Priority Date/Time Associated Diagnosis Comments US OB BPP W NON-STRESS 08/12/2024 4:38 PM EDT documented in this encounter Results * US OB BPP W NON-STRESS (08/12/2024 4:38 PM EDT) Anatomical Region Laterality Modality Other 08/12/2024 4:38 PM EDT Narrative 08/12/2024 4:41 [place] [address] Ultrasound Report Signed Patient: MICHAEL ROQUE MR#: [id number] : 1985 Acct:[id number] Age/Sex: 38 / F ADM Date: 08/12/24 Loc: [facility] 254-[address]: Neisha Stapleton D.O. Ordering Physician: Neisha Stapleton D.O. Date of Service: 08/12/24 Procedure(s): US OB BPP w non-stress Accession Number(s): [id number] cc: Neisha Stapleton D.O.; Physician,Non-Staff M.D. The [address] [address] Patient Name: MICHAEL ROQUE MRN: [id number] date: 1985 Sex: F Assigned Patient Location: [facility] Current Patient Location: [facility] Accession/Order Number: [id number] Exam Date: 08/12/2024 16:37 Report Date: 08/12/2024 16:38 At the request of: NEISHA STAPLETON DO [...] Villegas M.D. 08/12/2024 4:38 PM Dictation Location: [place] [address] Electronically authenticated by: [id number] Y Date: 08/12/2024 16:38 Dictated By: Roddy Villegas D.O. Signed By: 08/12/24 1641 DD/ 1638 TD/TT: Rehabilitation Liaison: Procedure Note Radiology, Radiologist, - 08/12/2024 [place] [address] Ultrasound Report Signed Patient: MICHAEL ROQUE RMR#: [id number] : 1985Acct:[id number] Age/Sex: 38 / FADM Date: 08/12/24 Loc: [facility] 254-[address]: Neisha Stapleton D.O. Ordering Physician: Neisha Stapleton D.O. Date of Service: 08/12/24 Procedure(s): US OB BPP w non-stress Accession Number(s): [id number] cc: Neisha Stapleton D.O.; Physician,Non-Staff Ramiro The [place] [id number] Patient Name: MICHAEL ROQUE MRN: [id number] date: 1985 Sex: F Assigned Patient Location: [facility] Current Patient Location: [facility] Accession/Order Number: [id number] Exam Date: 08/12/2024 16:37 Report Date: 08/12/2024 16:38 At the request of: NEISHA STAPLETON DO Procedure: US OB BPP w non-stress Ultrasound biophysical profile HISTORY: Gestational diabetes Adequate breathing movement, gross body movement, tone and amniotic fluid volume for total score of 8 out of 8. The amniotic fluidindex is 11.3 cm within normal limits. The heart rate 152 bpm. US/US OB BPP w non-stress IMPRESSION: Adequate ultrasound biophysical profile Impression dictated by: Roddy Villegas M.D. 08/12/2024 4:38 PM Dictation Location: [place] [address] Electronically authenticated by: [id number] Y Date: 6:38 Dictated By: Roddy Villegas D.O. Signed By:08/12/24 1641 DD/ 1638 TD/TT: Rehabilitation Liaison: us Neisha Daya DO [facility] Final Result documented in this encounter Visit Diagnoses Not on filedocumented in this encounter Additional Health Concerns Active Problems Noted Date Diagnosed Date OB Reminders 04/14/2024 documented as of this encounter Care Teams Mold Setter Relationship Specialty Start Date End Date Juaquin Rae DO [address] [place] [address] PCP - General Family Medicine 07/15/22 documented as of this encounter
--- OUTSIDE RECORDS SUMMARY | 2024-08-15 16:20 | XMS_ITS | Encounter Summary ---
Author Organization [facility] Address [address] [place] [address] Care Team Providers Care Machine Heel Sprayer Name Role Phone Juaquin Rae Primary Care Provider +1- [phone] Encounter Details Date Type Department Care Team (Late st Contact Info) Description 01/30/2024 Clinisync Result Encounter [facility] External Department Unsolicited Neisha Stapleton, DO [address] [place], [facility] Social History Tobacco Use Types [...] Routine [facility] BCP OB [address] [place] [address] Neisha Stapleton DO [address] [place], [facility] 10/26/2024 4:00 PM EDT Office Visit [facility] BCP OB [address] [place] [address] Neisha Stapleton, DO [address] [place] [address] documented as of this encounter Procedures Procedure Name Priority Date/Time Associated Diagnosis Comments US OB TRANSVAGINAL 01/30/2024 7: 28 AM EST documented in this encounter Results * US OB TRANSVAGINAL (01/30/2024 7:28 AM EST) Anatomical Region Laterality Modality Other 01/30/2024 7:28 AM EST Narrative 01/30/2024 7:31 AM EST The [address] [address] Ultrasound Report Signed Patient: MICHAEL ROQUE MR#: [id number] : 1985 Acct:[id number] Age/Sex: 38 / F ADM Date: 01/29/24 Loc: US Attending Dr: Neisha Stapleton D.O. Ordering Physician: Neisha Stapleton D.O. Date of Service: 01/29/24 Procedure(s): US OB transvaginal Accession Number(s): [id number] cc: Neisha Stapleton D.O.; Physician,Non-Staff M.Cristal The [address] [address] Patient Name: MICHAEL ROQUE MRN: [id number] date: 1985 Sex: F Assigned Patient Location: US Current Patient Location: Accession/Order Number: [id number] Exam Date: 01/29/2024 16:10 Report Date: 01/30/2024 [...] Dictated By: Cash Wolff M.D. Signed By: 01/30/24730 DD/ 7 TD/TT: Leave Coordinator: Procedure Note Radiology, Radiologist, MD - 01/30/2024 [place] [address] Ultrasound Report Signed Patient: MICHAEL ROQUE RMR#: [id number] : 1985Acct:[id number] Age/Sex: 38 / FADM Date: 01/29/24 Loc: US Attending Dr: Neisha Stapleton D.O. Ordering Physician: Neisha Stapleton D.O. Date of Service: 01/29/24 Procedure(s): US OB transvaginal Accession Number(s): [id number] cc: Neisha Stapleton D.O.; Physician,Non-Staff Ramiro The [place] [address] Patient Name: MICHAEL ROQUE MRN: [id number] date: 1985 Sex: F Assigned Patient Location: US Current Patient Location: Accession/Order Number: [id number] Exam Date: 01/29/2024 16:10 Report Date: 01/30/2024 [...] 07:28 Dictated By: Cash Wolff M.D. Signed By:01/30/24730 DD/ 7 TD/TT: Leave Coordinator: us Neisha Stapleton DO [facility] Final Result documented in this encounter Visit Diagnoses Not on filedocumented in this encounter Care Teams Machine Heel Sprayer Relationship Specialty Start Date End Date Juaquin Rae DO [address] [address] PCP - General Family Medicine 07/15/22 documented as of this encounter
--- OUTSIDE RECORDS SUMMARY | 2024-08-15 16:20 | XMS_ITS | Encounter Summary ---
Author Organization [facility] Address [address] [place] [address] Phone Care Team Providers Care Teradata Solution Architect Name Role Phone Trever Lee MD Unavailable [phone] Encounter Details Date Type Department Care Team (Late st Contact Info) Description 11/11/2023 Patient Risk Score [facility] Care Management [address] [place] [address] Social History Tobacco Use Types Packs/Day Years [...] documented as of this encounter Care Teams Teradata Solution Architect Relationship Specialty Start Date End Date Trever Lee MD [address] [facility], [address] [place] [address] Consulting Physician Neurology 02/19/23 documented as of this encounter
--- OUTSIDE RECORDS SUMMARY | 2024-08-15 16:20 | XMS_ITS | Encounter Summary ---
Author Organization [facility] tem Address [id number] [address] [place] [address] Care Team Providers Care Wheat And Oats Flake Miller Name Role Phone Unavailable Primary Care Provider Unavailabl e Encounter Details Date Type Department Care Team (Late st Contact Info) Description 08/04/2024 Orders Only Maternal- Medicine at [facility] [address] [place] [address] Ref Prov, [place] [address] Social History Tobacco Use Types Packs/Day Years [...] on file documented as of this encounter Procedures Procedure [...]
--- OUTSIDE RECORDS SUMMARY | 2024-08-15 16:20 | XMS_ITS | Encounter Summary ---
Author Organization [facility] Address [address] [place] [address] Care Team Providers Care Size Marker Name Role Phone KeenanJuaquin pittman Amira SORIA Primary Care Provider +1- [phone] Encounter Details Date Type Department Care Team (Late st Contact Info) Description 07/01/2024 Results Follow-Up [facility] [address] [place] [phone] Cathy Dick LPN [address] [place] [address] Social History Tobacco Use Types [...] AM EDT Routine [facility] [address] [facility] [place] [address] Matt Stapleton, DO [address] [facility] [place] [address] 10/26/2024 4:00 PM EDT Office Visit [facility] OB [address] [facility] [place] [phone] Matt Stapleton, DO [address] [facility] [place] [address] documented as of this encounter Goals Goal Patient Goal Type Associated Problems Recent Progress Patient-Stated? Author Reminders Care Plan OB Reminders No Open Scheduling, Background documented as of this encounter Visit Diagnoses Not on filedocumented in this encounter Additional Health Concerns Active Problems Noted Date Diagnosed Date OB Reminders 04/14/2024 documented as of this encounter Care Teams Size Marker Relationship Specialty Start Date End Date Juaquin Rae DO [address] [facility] [address] [place] [address] PCP - General Family Medicine 07/15/22 documented as of this encounter
--- OUTSIDE RECORDS SUMMARY | 2024-08-15 16:20 | XMS_ITS | Encounter Summary ---
Author Organization [facility] [employer] [facility] tem Address [id number] [address] [place] [address] Care Team Providers Care Head Doffer Name Role Phone Unavailable Primary Care Provider Unavailabl e Encounter Details Date Type Department Care Team (Late st Contact Info) Description 08/03/2024 Abstract Maternal- Medicine at [facility] [address] [place] [phone] External, Scanning Provider Social History Tobacco Use [...] l Result MANUALLY TRANSCRIBED RESULTS * Hepatitis B surface [...] ORDERABLES Final Re sult Performing Organization Address City/[facility]/[place] [employer] de Phone Number MANUALLY TRANSCRIBED RESULTS * CBC without diff (03/08/2024) Rbc Mcv (Fl) By Automated Count 85.1 MANUALLY TRANSCRIBED RESULTS Platelets 200 MANUALLY TRANSCRIBED RESULTS Blood Venous blood / Unknown us Not In System Ref Prov LAB BLOOD ORDERABLES Melanie l Result Performing Organization Address City/[facility]/[place] [employer] de Phone Number MANUALLY TRANSCRIBED RESULTS * HIV 1&2 AB/AG Screen (P24 AG) (03/08/2024) HIV 1&2 AB/AG NON REACTIVE MAN UALLY TRANSCRIBED RESULTS Blood Venous blood / Unknown us Not In System Ref Prov LAB BLOOD ORDERABLES Melanie l Result Performing Organization Address [facility]/[place] [employer] de Phone Number MANUALLY TRANSCRIBED RESULTS * Type and screen (03/08/2024) Abo/Rh(D) O Positive MANUALLY TRANSCRIBED RESULTS Blood Venous blood / Unknown us Not In System Ref Prov BLOOD BANK TEST ORDERABLE S Final Result Performing Organization Address [facility]/[place] [employer] de Phone Number MANUALLY TRANSCRIBED RESULTS [...] In System Ref Prov LAB BLOOD ORDERABLES Mleanie l Result MANUALLY TRANSCRIBED RESULTS * CBC without diff (03/08/2024) Hemoglobin 12.6 MANUALLY TRANSCRIBED RESULTS Hematocrit 38.7 MANUALLY TRANSCRIBED RESULTS Blood Venous blood / Unknown us Not In System Ref Prov LAB BLOOD ORDERABLES Melanie l Result MANUALLY TRANSCRIBED RESULTS documented in this encounter Visit Diagnoses Not on filedocumented in this encounter
--- OUTSIDE RECORDS SUMMARY | 2024-08-15 16:20 | XMS_ITS | Encounter Summary ---
Author Organization [facility] Address [address] [place] [address] Care Team Providers Care Classroom Teacher Name Role Phone Juaquin Rae Amira SORIA Primary Care Provider +1- [phone] Encounter Details Date Type Department Care Team (Late st Contact Info) Description 06/06/2024 Abstract [facility] OB [address] [place] [address] Maria Victoria Zelaya LPN Social History [...] Description 08/17/2024 11:00 AM EDT Routine [facility] OB [address] [place] [address] Matt Stapleton DO [address] [place], [id number] 10/26/2024 4:00 PM EDT Office Visit [facility] OB [address] [place] [address] Matt Stapleton, [address] [place] [address] documented as of this encounter Goals Goal Patient Goal Type Associated Problems Recent Progress Patient-Stated? Author Reminders Care Plan OB Reminders No Open Scheduling, Background documented as of this encounter Visit Diagnoses Not on filedocumented in this encounter Additional Health Concerns Active Problems Noted Date Diagnosed Date OB Reminders 04/14/2024 documented as of this encounter Care Teams Classroom Teacher Relationship Specialty Start Date End Date Juaquin Rae DO [address] [place] [address] PCP - General Family Medicine 07/15/22 documented as of this encounter
--- OUTSIDE RECORDS SUMMARY | 2024-08-15 16:20 | XMS_ITS | Encounter Summary ---
Author Organization [facility] Address [address] [place] [address] Care Team Providers Care Environmental Engineer Name Role Phone Juaquin Rae Primary Care Provider +1- [phone] Encounter Details Date Type Department Care Team (Late st Contact Info) Description 08/06/2024 Clinisync Result Encounter [facility] External Department Unsolicited Neisha Stapleton [facility] [place], [place] [id number] Social History Tobacco Use Types Packs/Day Years [...] Routine [facility] OB [address] [place] [address] Neisha Stapleton DO [facility] [address] [place], [place] [id number] 10/26/2024 4:00 PM EDT Office Visit [facility] OB [address] [place] [address] Neisha Stapleton DO [address] [facility] [address] [place] [id number] documented as of this encounter Goals Goal [...] EDT Narrative 08/06/2024 12:14 PM EDT The [address] [address] Ultrasound Report Signed Patient: MICHAEL ROQUE MR#: [id number] : 1985 Acct:[id number] Age/Sex: 38 / F ADM Date: 08/05/24 Loc: US Attending Dr: Neisha Stapleton D.O. Ordering Physician: Neisha Stapleton D.O. Date of Service: 08/05/24 Procedure(s): US OB BPP w non-stress Accession Number(s): [id number] cc: Neisha Stapleton D.O.; Physician,Non-Staff M.D. The [address] [address] Patient Name: MICHAEL ROQUE MRN: [id number] date: 1985 Sex: F Assigned Patient Location: US Current Patient Location: Accession/Order Number: [id number] Exam Date: 08/06/2024 12:11 Report Date: 08/06/2024 [...] Villegas M.D. 08/06/2024 12:12 PM Dictation Location: [place] [address] Electronically authenticated by: [id number] Y Date: 08/06/2024 12:12 Dictated By: Roddy Villegas D.O. Signed By: 08/06/24 1214 DD/ 1212 TD/TT: Route Deliverer: Procedure Note Radiology, Radiologist, MD - 08/06/2024 [place] [address] Ultrasound Report Signed Patient: MICHAEL ROQUE RMR#: [id number] : 1985Acct:[id number] Age/Sex: 38 / FADM Date: 08/05/24 Loc: US Attending Dr: Neisha Stapleton D.O. Ordering Physician: Neisha Stapleton D.O. Date of Service: 08/05/24 Procedure(s): US OB BPP w non-stress Accession Number(s): [id number] cc: Neisha Stapleton D.O.; Physician,Non-Staff Ramiro The [address] [address] Patient Name: MICHAEL ROQUE MRN: [facility]:[id number] date: 1985 Sex: F Assigned Patient Location: Current Patient Location: Accession/Order Number: [id number] Exam Date: 08/06/2024 12:11 Report Date: 08/06/2024 [...] Villegas M.D. 08/06/2024 12:12 PM [facility]ictation [facility] Electronically authenticated by: [id number] Y Date: 2:12 Dictated By: Roddy Villegas D.O. Signed By:08/06/24 1214 DD/ 1212 TD/TT: Route Deliverer: us Neisha Daya DO [facility] Final Result documented in this encounter Visit Diagnoses Not on filedocumented in this encounter Additional Health Concerns Active Problems Noted Date Diagnosed Date OB Reminders 04/14/2024 documented as of this encounter Care Teams Environmental Engineer Relationship Specialty Start Date End Date Juaquin Rae DO [address] [place] [address] PCP - General Family Medicine 07/15/22 documented as of this encounter
--- OUTSIDE RECORDS SUMMARY | 2024-08-15 16:20 | XMS_ITS | Encounter Summary ---
Author Organization [facility] Address [address] [place] [address] Care Team Providers Care Telephone Assembler Name Role Phone Juaquin Rae Primary Care Provider +1- [phone] Encounter Details Date Type Department Care Team (Late st Contact Info) Description 08/02/2024 Bamboo flowsheet [facility] OB [address] [facility] [phone] Matt Stapleton [address] [place], [id number] Social History Tobacco Use Types Packs/Day Years [...] Description 08/17/2024 11:00 AM EDT Routine [facility] OB [address] [place] [phone] Matt Stapleton [address] [place], [id number] 10/26/2024 4:00 PM EDT Office Visit [facility] [place] [address] Matt Stapleton, DO [address] [facility] [place] [address] documented as of this encounter Goals Goal Patient Goal Type Associated Problems Recent Progress Patient-Stated? Author Reminders Care Plan OB Reminders No Open Scheduling, Background documented as of this encounter Visit Diagnoses Not on filedocumented in this encounter Additional Health Concerns Active Problems Noted Date Diagnosed Date OB Reminders 04/14/2024 documented as of this encounter Care Teams Telephone Assembler Relationship Specialty Start Date End Date Juaquin Rae DO [address] [facility] [address] [place] [address] PCP - General Family Medicine 07/15/22 documented as of this encounter
--- OUTSIDE RECORDS SUMMARY | 2024-08-15 16:20 | XMS_ITS | Encounter Summary ---
Author Organization [facility] Address [address] [place] [address] Care Team Providers Care Silk Weaver Name Role Phone Juaquin Rae DO Primary Care Provid er Source Comments In the event this information is protected by the Federal Confidentiality of Alcohol and Drug AbusePatient Records regulations: The Federal rules restrict any use of the information to criminally investigate or prosecute any alcohol or drug abuse patient.[facility] Encounter Details Date Type Department Care Team (Late st Contact Info) Description 10/01/2017 Patient Msg Internal Medicine [facility] [place] [address] Renee Sawyer MD [address] [place] [address] RE: Appointment Cancellation Request Social [...] on filedocumented in this encounter Care Teams Silk Weaver Relationship Specialty Start Date End Date Juaquin Rae DO [address] [facility] [address] [place] [address] PCP - General Family Medicine 06/10/16 documented as of this encounter
--- OUTSIDE RECORDS SUMMARY | 2024-08-15 16:20 | XMS_ITS | Encounter Summary ---
Author Organization [facility] Address [address] [place] [address] Care Team Providers Care Crab Steamer Name Role Phone Juaquin aRe DO Primary Care Provid er Source Comments In the event this information is protected by the Federal Confidentiality of Alcohol and Drug AbusePatient Records regulations: The Federal rules restrict any use of the information to criminally investigate or prosecute any alcohol or drug abuse patient.[facility] Encounter Details Date Type Department Care Team (Late st Contact Info) Description 08/13/2023 Patient Msg Dermatology [place] [address] [place] [address] Roula Hodge APRN.GEOINT ANALYST [address] [place] [address] Appointment Request Social History Tobacco [...] N ot on file 03/28/2022 Data from: https://www.neighborhoodatlas.medicine.[facility].edu/. Last address used for calculation Felix [...] on filedocumented in this encounter Care Teams Crab Steamer Relationship Specialty Start Date End Date Juaquin Rae DO [address] [facility] [address] [place] [phone] PCP - General Family Medicine 06/10/16 documented as of this encounter
--- OUTSIDE RECORDS SUMMARY | 2024-08-15 16:20 | XMS_ITS | Encounter Summary ---
Author Organization [facility] Address [address] [place] [address] Care Team Providers Care Wreath Machine Tender Name Role Phone Juaquin Rae Primary Care Provider +1- [phone] Encounter Details Date Type Department Care Team (Late st Contact Info) Description 08/12/2024 Clinisync Result Encounter [facility] External Department Unsolicited Matt tSapleton [facility] [place], [place] [id number] Social History Tobacco Use Types Packs/Day Years [...] Routine [facility] B[facility] OB [address] [place] [address] Matt Stapleton DO [facility] [address] [place], [place] [id number] 10/26/2024 4:00 PM EDT Office Visit [facility] OB [address] [place] [address] Matt Stapleton, DO [address] [facility] [address] [place], [facility]11 documented as of this encounter Goals Goal Patient Goal Type Associated Problems Recent Progress Patient-Stated? Author Reminders Care Plan OB Reminders No Open Scheduling, Background documented as of this encounter Procedures Procedure Name Priority Date/Time Associated Diagnosis Comments TBH CREATININE Routine 08/12/2024 3:40 PM EDT [facility] PROTHROMBIN TIME INR W/O COUM Routine 08/12/2024 3:40 PM EDT [facility] AST Routine 08/12/2024 3:40 PM EDT [facility] APTT Routine 08/12/2024 3:40 PM EDT ALL URIC ACID Routine 08/12/2024 3:40 PM EDT ALL LDH Routine 08/12/2024 3:40 PM EDT ALL CBC WITH AUTO DIFF Routine 08/12/2024 3:40 PM EDT ALL BUN Routine 08/12/2024 3:40 PM EDT documented in this encounter Results * ALL LDH (08/12/2024 3:40 PM EDT) LACTATE DEHYDROGENASE 131 81 - 234 U/L [facility] 08/12/2024 3:40 PM EDT 08/12/2024 3:42 PM EDT Narrative [facility] - 08/12/2024 4:47 PM EDT us Matt Stapleton DO [facility] Final Result [facility] * (ABNORMAL) [facility] AST (08/12/2024 3:40 PM EDT) ASPARTATE AMINO TRANSFERASE 13(L) 15 - 37 U/L [facility] 08/12/2024 3:40 PM EDT 08/12/2024 3:42 PM EDT Narrative [facility] - 08/12/2024 4:47 PM EDT us Matt Daya DO [facility] Final Result [facility] TB * ALL URIC ACID (08/12/2024 3:40 PM EDT) URIC ACID 2.8 2.6 - 6.0 mg/dL [facility] 08/12/2024 3:40 PM EDT 08/12/2024 3:42 PM EDT Narrative [facility] - 08/12/2024 4:47 PM EDT us Matt Daya DO [facility] Final Result Performing Organization Address [facility]/ZIP Co de Phone Number [facility] * (ABNORMAL) [facility] CREATININE (08/12/2024 3:40 PM EDT) CREATININE 0.40(L) 0.55 - 1.02 mg/dL TBH TBH EGFR-AF MAURITANIAN >60 >=60 mL/min/1.7 3m 2 TBH TBH EGFR-NON AF MAURITANIAN >60 >=60 mL/min/1.7 3m 2 [facility] 08/12/2024 3:4 0 PM EDT 08/12/2024 3:42 PM EDT Narrative [facility] - 08/12/2024 4:47 PM EDT us Matt Daya DO [facility] Final Result [facility] * ALL BUN (08/12/2024 3:40 PM EDT) BLOOD UREA NITROGEN 10.0 7.0 - 18.0 mg/dL [facility] 08/12/2024 3:40 PM EDT 08/12/2024 3:42 PM EDT Narrative [facility] - 08/12/2024 4:47 PM EDT Matt Daya DO [facility] Final Result [facility] * [facility] APTT (08/12/2024 3:40 PM EDT) PARTIAL THROMBOPLASTIN TIME 27.1 22.3 - 36.2 sec TB 08/12/2024 3:40 PM EDT 08/12/2024 3:42 PM EDT Narrative [facility] - 08/12/2024 4:20 PM EDT Matt Daya DO [facility] Final Result Performing Organization Address City/[facility]/ZIP Co de Phone Number [facility] * [facility] PROTHROMBIN TIME INR W/O COUM (08/12/2024 3:40 PM EDT) PROTHROMBIN TIME 9.8 9.0 - 11.6 sec TB TBH INR <0.93 TBH Comment: DESIRED INR: 2.0-3.0 CONDITIONS NOT LISTED BELOW 2.5-3.5 FOR PROSTHETIC HEART VALVE REPLACEMENT 2.5-3.5 RECURRENT THROMBOSIS 08/12/2024 3:40 PM EDT 08/12/2024 3:42 PM EDT Narrative [facility] - 08/12/2024 4:20 PM EDT Group[employer] DO [facility] Final Result [facility] * (ABNORMAL) ALL CBC WITH AUTO DIFF (08/12/2024 3:40 PM EDT) TBH WBC 8.5 4.0 - 11.0 10 3/uL TBH TBH RBC 3.91(L) 4.20 - 5.40 10 6/uL TBH TBH HGB 10.6(L) 12.0 - 16.0 g/dL TBH TBH HCT 32.6(L) 36.0 - 48.0 % TBH TBH MCV 83.4 81.0 - 99.0 fL TBH TBH MCH 27.1 26.7 - 34.0 pg TBH TBH MCHC 32.5 29.9 - 35.2 g/dL TBH TBH RDW 14.9 11.0 - 15.0 % TBH TBH PLT 148(L) 150 - 450 10 3/uL TBH TBH MPV 12.1 9.5 - 13.5 fL TBH NEUTROPHILS PERCENT AUTO 74.7 43.0 - 75.0 % TBH LYMPHOCYTES PERCENT AUTO 16.3(L) 20.5 - 60.0 % TBH MONOCYTES PERCENT AUTO 7.9 1.7 - 12.0 % TBH TBH EO % 0.1(L) 0.9 - 7.0 % TBH BASOPHILS PERCENT AUTO 0.2 0.2 - 2.0 % TBH IMMATURE GRANULOCYTES PCT AUTO 0.8(H) 0.0 - 0.5 % TBH NEUTROPHILS ABSOLUTE AUTO 6.3 1.4 - 6.5 10 3/uL TBH LYMPHOCYTES ABSOLUTE AUTO 1.4 1.2 - 3.8 10 3/uL TBH MONOCYTES ABSOLUTE AUTO 0.7 0.3 - 0.8 10 3/uL TBH TBH EO # 0.0 0.0 - 0.7 10 3/uL TBH BASOPHILS ABSOLUTE AUTO 0.0 0.0 - 0.1 10 3/uL TBH IMMATURE GRANULOCYTES ABS AUTO 0.07(H) 0.00 - 0.03 10 3/uL [facility] 08/12/2024 3:40 PM EDT 08/12/2024 3:42 PM EDT Narrative [facility] - 08/12/2024 3:56 PM EDT us Matt Stapleton DO [facility] Final Result [facility] documented in this encounter Visit Diagnoses Not on filedocumented in this encounter Additional Health Concerns Active Problems Noted Date Diagnosed Date OB Reminders 04/14/2024 documented as of this encounter Care Teams Wreath Machine Tender Relationship Specialty Start Date End Date Juaquin Rae DO [address] [facility] [address] [place] [address] PCP - General Family Medicine 07/15/22 documented as of this encounter
--- OUTSIDE RECORDS SUMMARY | 2024-08-15 16:20 | XMS_ITS | Clinical Summary ---
Author Organization [facility] Address [facility] [place] [address] Care Team Providers Care Circus Artist Name Role Phone Juaquin Rae DO Primary [...] Type Department Care Team Description 05/24/2024 Patient [facility] -[facility] [address] [place] [address] Sobeida Berrios RPh At your next appointment, choose [facility]. from Last 3 Months Social History [...] is lower risk 3 09/01/2023 Data from: https://www.neighborhoodatlas.[facility]/. Last address used for calculation [address] [...] Influenza Vaccine (Season Ended) 2024 Insurance [facility] Care Teams Circus Artist Relationship Specialty Start Date End Date Juaquin Rae DO [address] [address] [place] [address] PCP - General Family Medicine 06/10/16
--- OUTSIDE RECORDS SUMMARY | 2024-08-15 16:20 | XMS_ITS | Clinical Summary ---
Author Organization [facility] Address [address] [place] [address] Care Team Providers Care Furnace Maintenance Name Role Phone Juaquin Rae Amira SORIA Primary Care Provider +1- [phone] Allergies Active Allergy Reactions Criticality Noted Date [...] NEEDED FOR NAUSEA OR VOMITING 025 Active Alcohol Swabs (Alcohol Prep Pad) 70 % padsIndications:Ge stational diabetes mellitus (GDM), antepartum, gestational diabetes method of control unspecified,Elevat ed glucose tolerance test Apply 1 Pad topically Daily Use four times daily to check FSBS. 150 each 3 025 Active Blood Glucose Monitoring Suppl (D-Care Glucometer) w/Device kitIndications:Ges tational diabetes mellitus (GDM), [...] nausea.. 90 tablet 3 025 2024 Discontinued Lancets Ultra Thin miscIndications:Ge stational diabetes mellitus (GDM), antepartum, gestational diabetes method of control unspecified,Elevat ed glucose tolerance test 1 each by In Vitro route Daily Use to check FSBS four times daily 150 each 3 025 2024 Glucose Blood (Blood Glucose Test) stripIndications:G estational diabetes mellitus (GDM), antepartum, gestational diabetes method of control unspecified,Elevat ed glucose tolerance test 1 strip by In Vitro route Daily Use in the morning prior to breakfast, 1 hour after each meal for a total of 4times daily. 150 strip 3 025 2024 Active Problems Problem Noted Date Diagnosed Date Chronic nasopharyngitis 08/28/2022 Reflux esophagitis 08/28/2022 Submandibular gland infection 08/28/2022 Estimated Date of Delivery Comme nts Yes 10/01/2024 Based on Ultraso und Encounters Date Type Department Care Team Description 08/14/2024 Clinisync Result Encounter [facility] External Department Unsolicited Neisha Stapleton, DO 08/12/2024 Clinisync Result Encounter NOMS External Department Unsolicited Neisha Stapleton, DO 08/12/2024 Clinisync Result Encounter [facility]OMS External Department Unsolicited Neisha Stapleton, DO 08/11/2024 Telephone [facility] [address] [place] [address] Maria Victoria Zelaya LPN 08/09/2024 3:00 PM EDT Ancillary Procedure [facility] [address] [place] [address] 28 weeks gestation of ; Multigravida of advanced maternal age in third trimester 08/06/2024 Clinisync Result Encounter NOMS External Department Unsolicited Neisha Stapleton, DO 08/02/2024 9:10 AM EDT Routine [facility] [address] [place] [address] Neisha Stapleton, 31 weeks gestation of ; Third trimester ; Gestational diabetes mellitus (GDM), antepartum, gestational diabetes method of control unspecified 08/02/2024 Abstract [facility] [address] [place] [address] Neisha Stapleton, DO 08/02/2024 Abstract [facility] [address] [place] [address] Neisha Stapleton, DO 08/02/2024 Bamboo flowsheet [facility] [address] [place] [address] Neisha Stapleton, DO 07/12/2024 11:10 AM EDT Routine [facility] [address] [place] [address] Neisha Stapleton, Third trimester ; 28 weeks gestation of ; Multigravida of advanced maternal age in third trimester; Gestational diabetes mellitus (GDM), antepartum, gestational diabetes method of control unspecified; Elevated glucose tolerance test 07/12/2024 10:30 AM EDT Ancillary Procedure [facility] [address] [place] [address] Antepartum multigravida of advanced maternal age 0407/01/2024 Results Follow-Up [facility] [address] [place] [address] Cathy Dick, CHIEF CRNA 07/01/2024 Telephone [facility] [address] [place] [address] Cathy Dick, CHIEF CRNA 06/30/2024 Clinisync Result Encounter NOMS External Department Unsolicited Neisha Stapleton, 06/20/2024 9:40 AM EDT Routine [facility] [address] [place] [address] Neisha Stapleton, Diabetes mellitus screening; 25 weeks gestation of ; Second trimester ; Antepartum multigravida of advanced maternal age 0406/20/2024 Bamboo flowsheet [facility] [address] [place] [address] Neisha Stapleton, 06/06/2024 Abstract [facility] [address] [place] [address] Maria Victoria Zelaya, CHIEF CRNA 06/02/2024 Telephone [facility] [address] [place] [address] Neisha Stapleton, 05/23/2024 8:50 AM EDT Routine [facility] [address] [place] [address] Neisha Stapleton DO Second trimester ; 21 weeks gestation of 05/23/2024 8:00 AM EDT Ancillary Procedure [facility] [address] [place] [address] Screening, , for anatomic survey from Last [...] Description 08/17/2024 11:00 AM EDT Routine [facility] [address] [facility] [place] [address] Neisha Stapleton, [address] [place] [address] 10/26/2024 4:00 PM EDT Office Visit [facility] OB [address] [place] [address] [place] [address] Neisha Stapleton, [address] [place], [place] [address] Health Maintenance Due Date Last Done Comments [...] HOUR URINE Routine 08/14/2024 7:54 AM EDT US OB BPP W NON-STRESS 08/12/2024 4:38 PM EDT ALL LDH Routine 08/12/2024 3:40 PM EDT CCF AST Routine 08/12/2024 3:40 PM EDT ALL URIC ACID Routine 08/12/2024 3:40 PM EDT TBH CREATININE Routine 08/12/2024 3:40 PM EDT ALL BUN Routine 08/12/2024 3:40 PM EDT CCF APTT Routine 08/12/2024 3:40 PM EDT SRMCO[facility] PROTHROMBIN TIME INR W/O COUM Routine 08/12/2024 3:40 PM EDT ALL CBC WITH AUTO DIFF Routine 3:40 PM EDT US OB FOLLOW UP TRANSABDOMINAL APPROACH Routine 08/09/2024 3:32 PM EDT 28 weeks gestation of Multigravida of advanced maternal age in third trimester US OB BPP W NON-STRESS 08/06/2024 12:12 [...] Relevant to Health Maintenance Results * (ABNORMAL) TBH TOTAL PROTEIN 24 HOUR URINE (08/14/2024 7:54 AM EDT) TOTAL PROTEIN URINE RANDOM 20.8(H) <=11.9 mg/dL TBH TOTAL VOLUME 24 HOUR URINE 1,550 mL/24hr TBH TBH TOTAL PROTEIN 24 HOUR URINE 322.4(H) <=149.1 mg/24hr TBH 08/14/2024 7:54 AM EDT 08/14/2024 1:02 PM EDT Narrative CLINISYNC - 08/14/2024 1:39 PM EDT START TIME:0754 END TIME:0745 TOTAL VOLUME:1550 us Neisha Daya DO CLINISYNC Final Result [facility] * US OB BPP W NON-STRESS (08/12/2024 4:38 PM EDT) Only the most recent of2 resultswithin the time period is included. Anatomical Region Laterality Modality Other 08/12/2024 4:38 PM EDT Narrative 08/12/2024 4:41 [place] [address] Ultrasound Report Signed Patient: MICHAEL WELLER MR#: [id number] : 1985 Acct:[id number] Age/Sex: 38 / F ADM Date: 08/12/24 Loc: [facility] 254-[address]: Neisha Stapleton D.O. Ordering Physician: Neisha Stapleton D.O. Date of Service: 08/12/24 Procedure(s): US OB BPP w non-stress Accession Number(s): [id number] cc: Neisha Stapleton D.O.; Physician,Non-Staff [place] [id number] Patient Name: MICHAEL WELLER MRN: [id number] date: 1985 Sex: F Assigned Patient Location: [facility] Current Patient Location: [facility] Accession/Order Number: [id number] Exam Date: 08/12/2024 16:37 Report Date: 08/12/2024 [...] Villegas M.D. 08/12/2024 4:38 PM Dictation Location: [place] [address] Electronically authenticated by: [id number] Y Date: 08/12/2024 16:38 Dictated By: Roddy Villegas D.O. Signed By: 08/12/24 1643 DD/ 1638 TD/TT: Inspector Filter Tip: Procedure Note Radiology, Radiologist, - 08/12/2024 The [place] [id number] Ultrasound Report Signed Patient: MICHAEL WELLER RMR#: [id number] : 1985Acct:[id number] Age/Sex: 38 / FADM Date: 08/12/24 Loc: [facility] 254-[address]: Neisha Stapleton D.O. Ordering Physician: Neisha Stapleton D.O. Date of Service: 08/12/24 Procedure(s): US OB BPP w non-stress Accession Number(s): [id number] cc: Neisha Stapleton D.O.; Physician,Non-Staff [place] [address] Patient Name: MICHAEL WELLER MRN: [facility]:[id number] date: 1985 Sex: F Assigned Patient Location: [facility] Current Patient Location: [facility] Accession/Order Number: [id number] Exam Date: 08/12/2024 16:37 Report Date: 08/12/2024 [...] Villegas M.D. 08/12/2024 4:38 PM Dictation Location: [place] [address] Electronically authenticated by: [id number] Y Date: 6:38 Dictated By: Roddy Villegas D.O. Signed By:08/12/24 1641 DD/ 1638 TD/TT: Inspector Filter Tip: us Neisha Stapleton DO CLINIS[facility]NC [facility] Final Result * (ABNORMAL) TB CREATININE (08/12/2024 3:40 PM EDT) CREATININE 0.40(L) 0.55 - 1.02 mg/dL TBH TBH EGFR-AF DUTCH >60 >=60 mL/min/1.7 3m 2 TBH TBH EGFR-NON AF DUTCH >60 >=60 mL/min/1.7 3m 2 TBH 08/12/2024 3:40 PM EDT 08/12/2024 3:42 PM EDT Narrative CLINISYNC - 08/12/2024 4:47 PM EDT [facility] Final Result Performing Organization Address [facility]/ZIP Co de Phone Number [facility] * [facility] PROTHROMBIN TIME INR W/O COUM (08/12/2024 3:40 PM EDT) PROTHROMBIN TIME 9.8 9.0 - 11.6 sec TBH TBH INR <0.93 TBH Comment: DESIRED INR: 2.0-3.0 CONDITIONS NOT LISTED BELOW 2.5-3.5 FOR PROSTHETIC HEART VALVE REPLACEMENT 2.5-3.5 RECURRENT THROMBOSIS 08/12/2024 3:40 PM EDT 08/12/2024 3:42 PM EDT Narrative CLINISYNC - 08/12/2024 4:20 PM EDT Neisha Daya DO CLINISYNC Final Result Performing Organization Address [facility] Co de Phone Number [facility] * (ABNORMAL) [facility] AST (08/12/2024 3:40 PM EDT) ASPARTATE AMINO TRANSFERASE 13(L) 15 - 37 U/L TBH 08/12/2024 3:40 PM EDT 08/12/2024 3:42 PM EDT Narrative CLINISYNC - 08/12/2024 4:47 PM EDT Neisha Daya DO CLINISYNC Final Result Performing Organization Address [facility]/ZIP Co de Phone Number [facility] * [facility]CF APTT (08/12/2024 3:40 PM EDT) [facility] PARTIAL THROMBOPLASTIN TIME 27.1 22.3 - 36.2 sec TB 08/12/2024 3:40 PM EDT 08/12/2024 3:42 PM EDT Narrative CLINISYNC - 08/12/2024 4:20 PM EDT [facility] Final Result Performing Organization Address [facility]/ZIP Co de Phone Number [facility] * ALL URIC ACID (08/12/2024 3:40 PM EDT) [facility] URIC ACID 2.8 2.6 - 6.0 mg/dL TB 08/12/2024 3:40 PM EDT 08/12/2024 3:42 PM EDT Narrative CLINISYNC - 08/12/2024 4:47 PM EDT [facility] Final Result Performing Organization Address [facility] Co de Phone Number [facility] * ALL LDH (08/12/2024 3:40 PM EDT) [facility] LACTATE DEHYDROGENASE 131 81 - 234 U/L TB 08/12/2024 3:40 PM EDT 08/12/2024 3:42 PM EDT Narrative CLINISYNC - 08/12/2024 4:47 PM EDT [facility] Final Result Performing Organization Address [facility] Co de Phone Number [facility] * (ABNORMAL) ALL CBC WITH AUTO DIFF (08/12/2024 3:40 PM EDT) Only the most recent of2 resultswithin the time period is included. [facility] WBC 8.5 4.0 - 11.0 10 3/uL [...] Narrative CLINISYNC - 08/12/2024 3:56 PM EDT Neisha Stapleton DO CLINISYNC Final Result [facility] * ALL BUN (08/12/2024 3:40 PM EDT) BLOOD UREA NITROGEN 10.0 7.0 - 18.0 mg/dL TBH 08/12/2024 3:40 PM EDT 08/12/2024 3:42 PM EDT Narrative CLINISYNC - 08/12/2024 4:47 PM EDT us Neisha Daya DO CLINISYLOIDA Final Result [facility] * US OB follow up transabdominal approach (08/09/2024 3:32 PM EDT) Only the most recent of2 resultswithin the time period is included. Anatomical Region Laterality Modality Body Ultrasound 08/11/2024 [...] age. Interpreted by: Electronically signed by BELA HILLS II, MD, PHD at 11-Aug-2024 08:51:27 AM [facility] Procedure Note Bela Hills MD - 08/11/2024 EXAM: US OB FOLLOW [...] age. Interpreted by: Electronically signed by BELA HILLS II, MD, PHD [id number] 08:51:27 AM [facility] us Neisha Stapleton DO [facility] OB US PROCEDURES Final Resul t * (ABNORMAL) POCT urinalysis dipstick manually resulted [...] - 9 Protein, UA Trace Negative - 1999(20) ++++ mg/dL Comment:15 Urobilinogen, UA 0.2 0.2 - 12 mg/dL Leukocytes, UA Negative Negative - 500+++ Denys/mcL Nitrite, UA Negative Negative - Positive Urine 08/02/2024 9:27 AM EDT us Neisha Daya DO POINT OF CARE TEST ENTER/EDIT OR DERABLES Final Result * (ABNORMAL) GLUCOSE 1 HOUR (06/30/2024 10:26 AM EDT) GLUCOSE 1 HOUR 160(H) <130 mg/dL TB 06/30/2024 10:2 6 AM EDT 06/30/2024 10:30 AM EDT Narrative [facility] - 06/30/2024 11:03 AM EDT Neisha Daya DO LAB BLOOD ORDERABLES Final Resul t [facility] * US OB 14+ weeks anatomy scan [...] II, MD, PHD at 24-May-2024 12:33:10 AM [facility] Procedure Note Bela Hills MD - [...] HILLS II, MD, PHDat 24-May-2024 12:33:10 AM [facility] us [facility] OB US PROCEDURES Final Resul t * Pap Smear (10/20/2023 12:00 AM EDT) Swab Cervical swab / Unknown us Neisha Stapleton DO LAB CYTOLOGY ORDERABLES Final Re sult EXTERNAL LAB * THINPREP PAP AND HPV MRNA E6/E7 W/RFL HPV 16,18/45 (10/17/2022 8:40 AM EDT) us Merary [facility] LAB BLOOD ORDERABLES Final Resul t EXTERNAL LAB from Last 3 Months or Most Recently Relevant to Health Maintenance Additional Health Concerns Active Problems Noted Date Diagnosed Date OB Reminders 04/14/2024 Insurance [employer] Care Teams Furnace Maintenance Relationship Specialty Start Date End Date Juaquin Rae DO [address] [facility] [address] [place] [address] PCP - General Family Medicine 07/15/22
--- OUTSIDE RECORDS SUMMARY | 2024-08-15 16:20 | XMS_ITS | Encounter Summary ---
Author Organization [facility] tem Address [facility] [address] [place] [address] Care Team Providers Care Guide Name Role Phone Unavailable Primary Care Provider Unavailabl e Encounter Details Date Type Department Care Team (Late st Contact Info) Description 08/03/2024 Orders Only Maternal- Medicine at [facility] [address] [place] [address] Ref Prov, [place] [address] Social History Tobacco Use Types Packs/Day Years [...]
--- OUTSIDE RECORDS SUMMARY | 2024-08-15 16:20 | XMS_ITS | Encounter Summary ---
Author Organization [facility] Address [address] [place] [address] Phone Care Team Providers Care Employment Program Representative Name Role Phone Rafaela Garrido Primary Care Provider Unavailable Rafaela Garrido Unavailable Unava ilable Trever Lee MD Unavailable Gina Man DO Unavailable Encounter Details Date Type Department Care Team (Late st Contact Info) Description 10/09/2018 Orders Only [facility] [address] [place] [address] Conversion, Onbase Social History Tobacco Use Types [...] on filedocumented in this encounter Care Teams Employment Program Representative Relationship Specialty Start Date End Date Rafaela Garrido APRN-CNP PCP - General 07/06/18 10/28/22 Rafaela Garrido APRN-CNP Office Address Unavailable as of 08/07/2022 PCP - MMO ACO PCP 03/09/21 10/06/22 [place] [address] [facility] [address] [place] [address] PCP - MMO ACO PCP 03/09/23 10/07/23 Trever Lee MD [address] [facility] [address] [place] [address] Consulting Physician Neurology 02/19/23 documented as of this encounter
--- OUTSIDE RECORDS SUMMARY | 2024-08-15 16:20 | XMS_ITS | Encounter Summary ---
Author Organization [facility] Address [address] [place] [address] Care Team Providers Care Ophthalmic Assistant Name Role Phone KeenanJuaquin pittman Amira SORIA Primary Care Provider [phone]- [phone] Encounter Details Date Type Department Care Team (Late st Contact Info) Description 08/02/2024 Abstract [facility] [address] [place] [address] Matt Stapleton [facility] [address] [place], [place] [address] Social History Tobacco Use Types Packs/Day Years [...] Description 08/17/2024 11:00 AM EDT Routine [facility] [address] [place] [address] Matt Stapleton DO [facility] [address] [place], [place] [address] 10/26/2024 4:00 PM EDT Office Visit [facility] [address] Matt Stapleton, DO [address] [facility] [place] [address] documented as of this encounter Goals Goal Patient Goal Type Associated Problems Recent Progress Patient-Stated? Author Reminders Care Plan OB Reminders No Open Scheduling, Background documented as of this encounter Visit Diagnoses Not on filedocumented in this encounter Additional Health Concerns Active Problems Noted Date Diagnosed Date OB Reminders 04/14/2024 documented as of this encounter Care Teams Ophthalmic Assistant Relationship Specialty Start Date End Date Juaquin Rae DO [address] [facility] [address] [place] [address] PCP - General Family Medicine 07/15/22 documented as of this encounter
--- OUTSIDE RECORDS SUMMARY | 2024-08-15 16:20 | XMS_ITS | Encounter Summary ---
Author Organization [facility] Address [address] [place] [address] Care Team Providers Care Trench Shovel Operator Name Role Phone KeenanJuaquin pittman Amira SORIA Primary Care Provider [phone]- [phone] Encounter Details Date Type Department Care Team (Late st Contact Info) Description 04/14/[address] [facility] OB [address] [place] [address] Matt Stapleton [employer] [address] [place], [place] [address] Social History Tobacco Use Types Packs/Day Years [...] Description 08/17/2024 11:00 AM EDT [facility]ine [facility] OB [address] [place] [address] Matt Stapleton DO [facility] [address] [place], [place] [address] 10/26/2024 4:00 PM EDT Office Visit [facility] [address] Matt Stapleton, DO [address] [facility] [place] [address] documented as of this encounter Goals Goal Patient Goal Type Associated Problems Recent Progress Patient-Stated? Author Reminders Care Plan OB Reminders No Open Scheduling, Background documented as of this encounter Visit Diagnoses Not on filedocumented in this encounter Additional Health Concerns Active Problems Noted Date Diagnosed Date OB Reminders 04/14/2024 documented as of this encounter Care Teams Trench Shovel Operator Relationship Specialty Start Date End Date Juaquin Rae DO [address] [facility] [address] [place] [address] PCP - General Family Medicine 07/15/22 documented as of this encounter
--- OUTSIDE RECORDS SUMMARY | 2024-08-15 16:21 | XMS_ITS | Encounter Summary ---
Author Organization [facility] Address [address] [place] [address] Phone Care Team Providers Care Lineman A Class Name Role Phone Trever Lee MD Unavailable [phone] Gina Man DO Unavailable Encounter Details Date Type Department Care Team (Late st Contact Info) Description 11/09/2022 Patient Risk Score [facility] [place] Management [address] [facility] [address] [place] [address] Social History Tobacco Use Types [...] on filedocumented in this encounter Care Teams Lineman A Class Relationship Specialty [place] [address] [facility] [address] [place] [address] PCP - MMO ACO PCP 03/09/23 10/07/23 Trever Lee MD [address] [facility], [address] [place], [place] [id number] Consulting Physician Neurology 02/19/23 documented as of this encounter
--- OUTSIDE RECORDS SUMMARY | 2024-08-15 16:21 | XMS_ITS | Encounter Summary ---
Author Organization [facility] Address [address] [place] [address] Phone Care Team Providers Care Podiatry Assistant Name Role Phone Trever Lee MD Unavailable Gina Man DO Unavailable Encounter Details Date Type Department Care Team (Late st Contact Info) Description 02/20/2023 Scanned Document [facility] [address] [facility] [address] [place] [address] Trever Lee MD [address] [facility], [facility] [address] [place] [address] Social History Tobacco Use Types Packs/Day Years [...] documented as of this encounter Care Teams Podiatry Assistant Relationship Specialty [place] [address] [facility] [address] [place], [place] [id number] PCP - MMO ACO PCP 03/09/23 10/07/23 Trever Lee MD [address] [facility], [address] [place] [address] Consulting Physician Neurology 02/19/23 documented as of this encounter
--- OUTSIDE RECORDS SUMMARY | 2024-08-15 16:21 | XMS_ITS | Encounter Summary ---
Author Organization [facility] Address [address] [place] [address] Care Team Providers Care Crop Duster Name Role Phone Juaquin Rae DO Primary Care Provid er Source Comments In the event this information is protected by the Federal Confidentiality of Alcohol and Drug AbusePatient Records regulations: The Federal rules restrict any use of the information to criminally investigate or prosecute any alcohol or drug abuse patient.[facility] Encounter Details Date Type Department Care Team (Late st Contact Info) Description 09/02/2021 Patient Msg Dermatology [facility] [address] [place] [address] Roula Hodge APRN.SHOVEL MECHANIC [address] [place] [address] Appointment Request Social History Tobacco [...] N ot on file 02/13/2020 Data from: https://www.neighborhoodatlas.medicine.[facility].edu/. Last address used for calculation Not [...] on filedocumented in this encounter Care Teams Crop Duster Relationship Specialty Start Date End Date Juaquin Rae DO [address] [place] [address] [place] [address] PCP - General Family Medicine 06/10/16 documented as of this encounter
--- OUTSIDE RECORDS SUMMARY | 2024-08-15 16:21 | XMS_ITS | Encounter Summary ---
Author Organization [facility] Address [address] [place] [address] Phone Care Team Providers Care School Psychologist Name Role Phone Rafaela Garrido Primary Care Provider Unavailable Rafaela Garrido Unavailable Unava ilable Trever Lee MD Unavailable [phone] Gina Man DO Unavailable Encounter Details Date Type Department Care Team (Late st Contact Info) Description 09/08/2022 Patient Risk Score [facility]CO Care Management [address] [facility] [address] [place] [address] Social History Tobacco Use Types Packs/Day Years [...] on filedocumented in this encounter Care Teams School Psychologist Relationship Specialty Start Date End Date Rafaela Garrido APRN-CNP PCP - General 07/06/18 10/28/22 Rafaela Garrido APRN-CNP Office Address Unavailable as of 08/07/2022 PCP - MMO ACO PCP 03/09/21 10/06/22 [place] [address] [place] [address] PCP - MMO ACO PCP 03/09/23 10/07/23 Trever Lee MD [address] [facility], [address] [place] [address] Consulting Physician Neurology 02/19/23 documented as of this encounter
--- OUTSIDE RECORDS SUMMARY | 2024-08-15 16:21 | XMS_ITS | Encounter Summary ---
Author Organization [facility] Address [address] [place] [address] Care Team Providers Care University Archivist Name Role Phone Juaquin Rae DO Primary Care Provid er Source Comments In the event this information is protected by the Federal Confidentiality of Alcohol and Drug AbusePatient Records regulations: The Federal rules restrict any use of the information to criminally investigate or prosecute any alcohol or drug abuse patient.[facility] Encounter Details Date Type Department Care Team (Late st Contact Info) Description 06/02/2020 Patient Msg Dermatology [place] [address] [place] [address] Roula Hodge, OWNER/OPERATOR.EDUCATION GENERAL MANAGER [address] [place] [address] RE: Request an Appointment Social [...] N ot on file 02/13/2020 Data from: https://www.neighborhoodatlas.medicine.[facility].edu/. Last address used for calculation Not on [...] on filedocumented in this encounter Care Teams University Archivist Relationship Specialty Start Date End Date Juaquin Rae DO [address] [place] [address] PCP - General Family Medicine 06/10/16 documented as of this encounter
--- OUTSIDE RECORDS SUMMARY | 2024-08-15 16:21 | XMS_ITS | Encounter Summary ---
Author Organization [facility] Address [address] [place] [address] Care Team Providers Care Java Application Developer Name Role Phone Juaquin Rae DO Primary Care Provid er Source Comments In the event this information is protected by the Federal Confidentiality of Alcohol and Drug AbusePatient Records regulations: The Federal rules restrict any use of the information to criminally investigate or prosecute any alcohol or drug abuse patient.[facility] Encounter Details Date Type Department Care Team (Late st Contact Info) Description 08/13/2023 Patient Msg Dermatology [place] [address] [place] [address] Roula Hodge APRN.COCOA BEAN CLEANER [address] [place] [address] Appointment Request Social History Tobacco [...] on file 03/28/2022 Data from: https://www.neighborhoodatlas.medicine.[facility].edu/. Last address used for calculation Felix Shepp[address] [...] on filedocumented in this encounter Care Teams Java Application Developer Relationship Specialty Start Date End Date Juaquin Rae DO [address] [facility] [address] [place] [id number] PCP - General Family Medicine 06/10/16 documented as of this encounter
--- OUTSIDE RECORDS SUMMARY | 2024-08-15 16:21 | XMS_ITS | Encounter Summary ---
Author Organization [facility] Address [address] [place] [address] Phone Care Team Providers Care Director Of Academic Name Role Phone Trever Lee MD Unavailable [phone] Encounter Details Date Type Department Care Team (Late st Contact Info) Description 10/11/2023 Patient Risk Score [facility] [place] Care Management [address] [place] [phone] Social History Tobacco Use Types Packs/Day Years [...] as of this encounter Care Teams Director Of Academic Relationship Specialty Start Date End Date Trever Lee MD [address] [facility], [address] [place] [address] Consulting Physician Neurology 02/19/23 documented as of this encounter
--- OUTSIDE RECORDS SUMMARY | 2024-08-15 16:21 | XMS_ITS | Encounter Summary ---
Author Organization [facility] tem Address [facility] [id number] [address] [place] [address] Care Team Providers Care Bead Machine Operator Name Role Phone Unavailable Primary Care Provider Unavailabl e Encounter Details Date Type Department Care Team (Late st Contact Info) Description 08/09/2024 Telephone Maternal- Medicine at [facility] [address] [place] [phone] Noelle Johnston, RN [address] [facility], [address] [place] [address] Social History Tobacco Use Types Packs/Day Years [...] encounter Miscellaneous Notes * Telephone Encounter - Noelle Johnston RN - 08/09/2024 3:49 PM EDTSummary: MFM Blood Glucose Log & Insulin Dose Change Called and spoke with Jonna regarding Bárbara Canas CNM reviewed BG log and changed insulin orders to Lantus insulin pen 10 Units in the evening daily. Verbalized understanding. documented in this encounter Plan of Treatment Not on file documented as of this encounter Visit Diagnoses Not on filedocumented in this encounter
--- OUTSIDE RECORDS SUMMARY | 2024-08-15 16:21 | XMS_ITS | Encounter Summary ---
Author Organization [facility] Address [address] [place] [address] Phone Care Team Providers Care Early Childhood Assistant Name Role Phone Trever Lee MD Unavailable Gina Man DO Unavailable Encounter Details Date Type Department Care Team (Late st Contact Info) Description 06/11/2023 Patient Risk Score [facility] [place] [address] [place] [address] Social History Tobacco Use Types [...] documented as of this encounter Care Teams Early Childhood Assistant Relationship Specialty [place] [address] [place] [address] PCP - MMO ACO PCP 03/09/23 10/07/23 Trever Lee MD [address] [facility], [address] [place], [place] [phone] Consulting Physician Neurology 02/19/23 documented as of this encounter
--- OUTSIDE RECORDS SUMMARY | 2024-08-15 16:21 | XMS_ITS | Encounter Summary ---
Author Organization [facility] Address [address] [place] [address] Phone Care Team Providers Care Neurobiologist Name Role Phone Rafaela Garrido APRN-PASTE UP WORKER Primary Care Provider Unavailable Trever Lee MD Unavailable Gina Man DO Unavailable Encounter Details Date Type Department Care Team (Late st Contact Info) Description 10/09/2022 Patient Risk Score [facility] [place] [address] [facility] [address] [place] [phone] Social History Tobacco Use Types Packs/Day Years [...] on filedocumented in this encounter Care Teams Neurobiologist Relationship Specialty Start Date End Date Rafaela Garrido APRN-CNP PCP - General 07/06/18 10/28/22 [place] [address] [facility] [address] [place] [address] PCP - MMO ACO PCP 03/09/23 10/07/23 Trever Lee MD [address] [facility], [address] [place] [address] Consulting Physician Neurology 02/19/23 documented as of this encounter
--- OUTSIDE RECORDS SUMMARY | 2024-08-15 16:21 | XMS_ITS | Clinical Summary ---
Author Organization [facility] Address [address] [place] [address] Phone Care Team Providers Care Groundman Name Role Phone Trever Lee MD Unavailable [phone] Allergies Active Allergy Reactions Criticality Noted [...] EST) Cholesterol 135 0 - 199 mg/dL [facility] Comment: . AGE DESIRABLE BORDERLINE HIGH [...] prior to Metamizole dosing. HDL 34.0(A) mg/dL [facility] Comment: . AGE VERY LOW LOW NORMAL HIGH 0-19 Y < 35 < 40 40-45 ---- 20-24 Y ---- < 40 >45 ---- >24 Y ---- < 40 40-60 >60 . Cholesterol/HDL Ratio 4.0 [facility] Comment: REF VALUES DESIRABLE < 3.4 HIGH RISK > 5.0 LDL 70 0 - 99 mg/dL [facility] Comment: . NEAR BORD AGE DESIRABLE OPTIMAL HIGH HIGH VERY HIGH 0-19 Y 0 - 109 --- 110-129 >/= 130 ---- 20-24 Y 0 - 119 --- 120-159 >/= 160 ---- >24 Y 0 - 99 100-129 130-159 160-189 >/=190 . VLDL 31 0 - 40 mg/dL [facility] Triglycerides 154(H) 0 - 149 mg/dL [facility] Comment: . AGE DESIRABLE BORDERLINE HIGH [...] EST 04/23/2020 11:14 AM EST Rafaela Garrido NURSE AIDE EVALUATOR-PHOTOGRAPHIC REPRODUCTION TECHNICIAN LAB BLOOD ORDERABLES F inal Result [facility] from Last 3 Months or Most Recently Relevant to Health Maintenance Insurance [facility] Care Teams Groundman Relationship Specialty Start Date End Date Trever Lee MD [address] [facility], [address] [place] [address] Consulting Physician Neurology 02/19/23
--- OUTSIDE RECORDS SUMMARY | 2024-08-15 16:21 | XMS_ITS | Encounter Summary ---
Author Organization [facility] Address [address] [place] [address] Phone Care Team Providers Care Cooling Tower Technician Name Role Phone Trever Lee MD Unavailable [phone] Gina Man DO Unavailable Encounter Details Date Type Department Care Team (Late st Contact Info) Description 02/20/2023 Scanned Document [facility] [address] [facility] [address] [place] [address] Trever Lee MD [address] [facility], [facility] [address] [place] [address] Social History Tobacco Use Types Packs/Day Years [...] documented as of this encounter Care Teams Cooling Tower Technician Relationship Specialty [place] [address] [facility] [address] [place], [place] [phone] PCP - MMO ACO PCP 03/09/23 10/07/23 Trever Lee MD [address] [facility], [address] [place] [address] Consulting Physician Neurology 02/19/23 documented as of this encounter
--- OUTSIDE RECORDS SUMMARY | 2024-08-15 16:21 | XMS_ITS | Encounter Summary ---
Author Organization [facility] Address [address] [place] [address] Phone Care Team Providers Care Plug Overwrap Machine Tender Name Role Phone Trever Lee MD Unavailable Gina Man DO Unavailable Encounter Details Date Type Department Care Team (Late st Contact Info) Description 07/11/2023 Patient Risk Score [facility] Care Management [address] [place] [address] Social History Tobacco Use Types [...] documented as of this encounter Care Teams Plug Overwrap Machine Tender Relationship Specialty [place] [address] [place] [address] PCP - MMO ACO PCP 03/09/23 10/07/23 Trever Lee MD [address] [facility], [address] [place], [place] [phone] Consulting Physician Neurology 02/19/23 documented as of this encounter
--- OUTSIDE RECORDS SUMMARY | 2024-08-15 16:21 | XMS_ITS | Encounter Summary ---
Author Organization [facility] Address [address] [place] [address] Phone Care Team Providers Care Cutlet Maker Pork Name Role Phone Rafaela Garrido APRN-RECTANGULAR TANK COOPER Primary Care Provider Unavailable Trever Lee MD Unavailable Gina Man DO Unavailable Encounter Details Date Type Department Care Team (Late st Contact Info) Description 10/16/2022 Scanned Document [facility] [address] [place] [address] Conversion, Onbase Social History Tobacco Use Types [...] on filedocumented in this encounter Care Teams Cutlet Maker Pork Relationship Specialty Start Date End Date Rafaela Garrido APRN-CNP PCP - General 07/06/18 10/28/22 [place] [address] [facility] [address] [place] [address] PCP - MMO ACO PCP 03/09/23 10/07/23 Trever Lee MD [address] [facility], [address] [place] [address] Consulting Physician Neurology 02/19/23 documented as of this encounter
--- OUTSIDE RECORDS SUMMARY | 2024-08-15 16:21 | XMS_ITS | Encounter Summary ---
Author Organization [facility] Address [address] [place] [address] Care Team Providers Care Machine Operations Supervisor Name Role Phone Juaquin Rae DO Primary Care Provid er Source Comments In the event this information is protected by the Federal Confidentiality of Alcohol and Drug AbusePatient Records regulations: The Federal rules restrict any use of the information to criminally investigate or prosecute any alcohol or drug abuse patient.[facility] Encounter Details Date Type Department Care Team (Late st Contact Info) Description 04/20/2024 Patient Msg Dermatology [place] [address] [place] [address] Roula Hodge APRN.IRRIGATION DISTRICT MANAGER [address] [place] [address] Appointment Request Social History Tobacco Use Types Packs/Day Years Used Date Smoking Tobacco: Never Alcohol Use Standard Drinks/Week Comments Yes 0 (1 standard drink = 0.6 oz pur e alcohol) occasional Area Deprivation Index Answer Date Renaldo rded National Score (1-100), lower number is lower ri sk 52 09/01/2023 State Score (1-10), lower number is lower risk 3 09/01/2023 Data from: https://www.neighborhoodatlas.medicine.[facility].edu/. Last address used for calculation Felix [address] [...] filedocumented in this encounter Care Teams Machine Operations Supervisor Relationship Specialty Start Date End Date Juaquin Rae DO [address] [place] [address] PCP - General Family Medicine 06/10/16 documented as of this encounter
--- OUTSIDE RECORDS SUMMARY | 2024-08-15 16:21 | XMS_ITS | Encounter Summary ---
Author Organization [facility] Address [address] [place] [address] Phone Care Team Providers Care Bank Sales And Service Manager Name Role Phone Trever Lee MD Unavailable [phone] Gina Man DO Unavailable Encounter Details Date Type Department Care Team (Late st Contact Info) Description 09/10/2023 Patient Risk Score [facility] Care [place] [address] [place] [address] Social History Tobacco Use Types [...] documented as of this encounter Care Teams Bank Sales And Service Manager Relationship Specialty [place] [address] [place] [address] PCP - MMO ACO PCP 03/09/23 10/07/23 Trever Lee MD [address] [facility], [address] [place], [place] [phone] Consulting Physician Neurology 02/19/23 documented as of this encounter
--- OUTSIDE RECORDS SUMMARY | 2024-08-15 16:21 | XMS_ITS | Encounter Summary ---
Author Organization [facility] Address [address] [place] [address] Phone Care Team Providers Care Environmental Science Program Director Name Role Phone Trever Lee MD Unavailable [phone] Gina Man DO Unavailable Encounter Details Date Type Department Care Team (Late st Contact Info) Description 08/11/2023 Patient Risk Score [facility] Care Management [address] [place] [address] Social History Tobacco Use Types [...] as of this encounter Care Teams Environmental Science Program Director Relationship Specialty [place] [address] [place] [address] PCP - MMO ACO PCP 03/09/23 10/07/23 Trever Lee MD [address] [facility], [address] [place] [address] Consulting Physician Neurology 02/19/23 documented as of this encounter
--- OUTSIDE RECORDS SUMMARY | 2024-08-15 16:21 | XMS_ITS | Encounter Summary ---
Author Organization [facility] tem Address [id number] [address] [place] [address] Care Team Providers Care Care Professionals Name Role Phone Unavailable Primary Care Provider Unavailabl e Encounter Details Date Type Department Care Team (Late st Contact Info) Description 08/09/2024 Orders Only Maternal- Medicine at [facility] [address] [place] [phone] Noelle Johnston, RN [address] [facility], [address] [place] [address] Insulin controlled gestational diabetes mellitus (GDM) in third trimester (Primary Dx) Social History Tobacco Use Types [...] as of this encounter Visit Diagnoses Diagnosis Insulin controlled gestational diabetes mellitus (GDM) in third trimester- Primary documented in this encounter
--- OUTSIDE RECORDS SUMMARY | 2024-08-15 16:21 | XMS_ITS | Encounter Summary ---
Author Organization [facility] tem Address [id number] [address] [place] [address] Care Team Providers Care Showcase Trimmer Name Role Phone Unavailable Primary Care Provider Unavailabl e Encounter Details Date Type Department Care Team (Latest Contact Info) Description 08/15/2024 Travel Social History Tobacco Use Types Packs/Day Years Used Date Smoking Tobacco: Never Smokeless Tobacco: Never Alcohol Use Standard Drinks/Week Comments Not Currently [...]
--- OUTSIDE RECORDS SUMMARY | 2024-08-15 16:21 | XMS_ITS | Encounter Summary ---
Author Organization [facility] tem Address [id number] [address] [place] [address] Care Team Providers Care Automatic Machine Attendant Name Role Phone Unavailable Primary Care Provider Unavailabl e Encounter Details Date Type Department Care Team (Late st Contact Info) Description 08/09/2024 Orders Only Maternal- Medicine at [facility] [address] [place] [phone] Bárbara Canas, AGRICULTURE DEPARTMENT CHAIR-[facility] [address] [place] [address] Insulin controlled gestational diabetes mellitus (GDM) in [...]
--- OUTSIDE RECORDS SUMMARY | 2024-08-15 16:21 | XMS_ITS | Encounter Summary ---
Author Organization [facility] Address [address] [place] [address] Care Team Providers Care Printing Assistant Name Role Phone Juaquin Rae DO Primary Care Provid er Source Comments In the event this information is protected by the Federal Confidentiality of Alcohol and Drug AbusePatient Records regulations: The Federal rules restrict any use of the information to criminally investigate or prosecute any alcohol or drug abuse patient.[facility] Encounter Details Date Type Department Care Team (Late st Contact Info) Description 05/24/2024 Patient [facility] -[address] [place] [address] Sobeida Berrios RPh At your next appointment, choose [facility]. Social History Tobacco Use Types Packs/Day Years Used Date Smoking Tobacco: Never Alcohol Use Standard Drinks/Week Comments Yes 0 (1 standard drink = 0.6 oz pur e alcohol) occasional Area Deprivation Index Answer Date Renaldo rded National Score (1-100), lower number is lower ri sk 52 09/01/2023 State Score (1-10), lower number is lower risk 3 09/01/2023 Data from: https://www.neighborhoodatlas.medicine.[facility].edu/. Last address used for calculation [address] [...] on filedocumented in this encounter Care Teams Printing Assistant Relationship Specialty Start Date End Date Juaquin Rae DO [address] [facility] [address] [place] [address] PCP - General Family Medicine 06/10/16 documented as of this encounter
--- OUTSIDE RECORDS SUMMARY | 2024-08-15 16:21 | XMS_ITS | Encounter Summary ---
Author Organization [facility] Address [address] [place] [address] Care Team Providers Care Restaurant Front Manager Name Role Phone Juaquin Rae DO Primary Care Provid er Source Comments In the event this information is protected by the Federal Confidentiality of Alcohol and Drug AbusePatient Records regulations: The Federal rules restrict any use of the information to criminally investigate or prosecute any alcohol or drug abuse patient.[facility] Encounter Details Date Type Department Care Team (Late st Contact Info) Description 02/21/2024 Patient Msg Dermatology [place] [address] [place] [address] Roula Hodge APRN.ENGAGEMENT QUALITY CONSULTANT [address] [place] [address] Appointment Request Social History Tobacco Use Types Packs/Day Years Used Date Smoking Tobacco: Never Alcohol Use Standard Drinks/Week Comments Yes 0 (1 standard drink = 0.6 oz pur e alcohol) occasional Area Deprivation Index Answer Date Renaldo rded National Score (1-100), lower number is lower ri sk 52 09/01/2023 State Score (1-10), lower number is lower risk 3 09/01/2023 Data from: https://www.neighborhoodatlas.medicine.[facility].edu/. Last address used for calculation Felix [...] on filedocumented in this encounter Care Teams Restaurant Front Manager Relationship Specialty Start Date End Date Juaquin Rae DO [address] [place] [address] PCP - General Family Medicine 06/10/16 documented as of this encounter
--- OUTSIDE RECORDS SUMMARY | 2024-08-15 16:21 | XMS_ITS | Encounter Summary ---
Author Organization [facility] Address [address] [place] [address] Care Team Providers Care Electromechanical Assembly Technician Name Role Phone Juaquin Rae DO Primary Care Provid er Source Comments In the event this information is protected by the Federal Confidentiality of Alcohol and Drug AbusePatient Records regulations: The Federal rules restrict any use of the information to criminally investigate or prosecute any alcohol or drug abuse patient.[facility] Encounter Details Date Type Department Care Team (Late st Contact Info) Description 12/08/2022 Patient Msg Dermatology [place] [address] [place] [address] Roula Hodge APRN.ROTARY VENEER MACHINE OPERATOR [address] [place] [address] Appointment Request Social History Tobacco [...] N ot on file 03/28/2022 Data from: https://www.neighborhoodatlas.medicine.[facility].edu/. Last address used for calculation Felix [...] on filedocumented in this encounter Care Teams Electromechanical Assembly Technician Relationship Specialty Start Date End Date Juaquin Rae DO [address] [facility] [address] [place] [phone] PCP - General Family Medicine 06/10/16 documented as of this encounter
[2024-08-15 16:30] VITALS: BP 128/63; PULSE 110
[2024-08-15 16:45] LABS: Bilirubin Urine NEGATIVE (NEGATIVE); Blood Urine NEGATIVE (NEGATIVE); Clarity Urine SL CLOUDY (CLEAR); Color Urine YELLOW (YELLOW); Glucose Urine UA 100 mg/dL (NEGATIVE); Ketones Urine TRACE mg/dL (NEGATIVE); Leukocyte Esterase Urine NEGATIVE (NEGATIVE); Nitrite Urine NEGATIVE (NEGATIVE); Protein Urine TRACE mg/dL (NEG/TRACE); Specific Gravity Urine >=1.030 (1.005-1.025); Urine Microscopic Indicated NO
[2024-08-15 16:50] VITALS: BP 121/71; PULSE 100
== END 2024-08-15 17:11 | disposition home or self-care (01) ==
PROVIDERS: Admitting Provider Obstetrics & Gynecology; Visit Provider Obstetrics & Gynecology
DX: O13.3 Gestational [pregnancy-induced] hypertension without significant proteinuria, third trimester (principal); Z3A.33 33 weeks gestation of pregnancy
CPT/HCPCS: 59025; 81003; G0378; G0379

== ENCOUNTER 2024-08-16 15:03 | Outpatient (OUT) | payer OTHER, SELFPAY ==
[2024-08-16 15:12] VITALS: BP 130/68; PULSE 109
== END 2024-08-16 15:36 | disposition home or self-care (01) ==
LOC: FBCO 15:06 → FBC 15:06
PROVIDERS: Visit Provider Obstetrics & Gynecology
DX: O24.419 Gestational diabetes mellitus in pregnancy, unspecified control (principal); Z3A.33 33 weeks gestation of pregnancy
CPT/HCPCS: 59025

== ENCOUNTER 2024-08-19 15:42 | Outpatient (OUT) | payer OTHER, SELFPAY ==
[2024-08-19 16:00] VITALS: BP 110/69; PULSE 98
--- NOTE | 2024-08-19 16:17 | US_ITS ---
[place] [id number] Patient Name: MICHAEL ROQUE MRN: [id number] date: 1985 Sex: F Assigned Patient [facility]: [facility] Current Patient Location: Accession/Order Number: [id number] Exam Date: 08/19/2024 18:44 Report Date: 08/19/2024 18:46 At the request of: NEISHA PETERSON DO Procedure: US OB BPP w non-stress Ultrasound biophysical profile HISTORY: Gestational diabetes Adequate breathing movement, gross body movement, tone and amniotic fluid volume for total score of 8 out of 8. The amniotic fluid index is 11.8cm within normal limits. The heart rate 163 bpm. US/US OB BPP w non-stress IMPRESSION: Adequate ultrasound biophysical profile Impression dictated by: Roddy Villegas M.D. 08/19/2024 6:46 PM Dictation Location: [place] [address] Electronically authenticated by: [id number] Y Date: 08/19/2024 18:46
== END 2024-08-19 17:07 | disposition home or self-care (01) ==
LOC: US 15:44 → FBC 15:45
PROVIDERS: Visit Provider Obstetrics & Gynecology
DX: O24.419 Gestational diabetes mellitus in pregnancy, unspecified control (principal)
CPT/HCPCS: 59025; 76818

== ENCOUNTER 2024-08-22 09:57 | Outpatient (OUT) | payer OTHER, SELFPAY ==
--- OUTSIDE RECORDS SUMMARY | 2024-08-09 10:30 | XMS_ITS | Encounter Summary ---
Author Organization [facility] tem Address [id number] [address] [place] [address] Care Team Providers Care Templer Head Name Role Phone Unavailable Primary Care Provider Unavailabl e Reason for Visit * Reason Comments Gestational Diabetes * Consultation (Routine) - Pending Review Specialty Diagnoses / Procedures Referred By Contac t Referred To Contact Maternal and Medicine Diagnoses Gestational diabetes mellitus (GDM) in third trimester, gestational diabetes method of control unspecified Matt Stapleton R, DO [address] [place] [address] [place] [address] Phone: tel: fax: Maternal- Medicine at [facility] [address] [place] [address] Phone: tel: fax: Referral ID Status Reason Start Date Expiration Date Visits Requested Visits Authorized [id number] Pending Review Specialty Services Required 08/03/2024 08/03/2025 1 1 Encounter Details Date Type Department Care Team (Late st Contact Info) Description 08/09/2024 10:30 AM EDT Support Visit Maternal- Medicine at [facility] [address] [place] [phone] Noelle Johnston RN [address] [address] Ignacia Carvalho LD [address] [place] [address] Gestational diabetes mellitus (GDM) in third trimester, [...] care for you: OB Provider Family Doctor Supervisor Reactor Fueling Name: Dr. Matt Stapleton Name: No primary [...] demonstration Is there anything about your culture, worship, or personal beliefs we need to know about to care for you: Other None Primary Language spoken: Serbian [22] Primary Language for learning: Serbian Are you currently in a relationship where you are physically hurt, threatened or made to fee afraid? [] Yes [] No Employee Relation Manager needed? [] Yes [] No Marital status/Living [...] where: Lower abdominal On thge following scale, [place] the number, which describes your current level [...] weekly Educational Level Masters Family issues stable Cultural/ethnic/advent influences denies Exercise approved by MD? Yes Current Exercise program walking Who prepares the meal Spouse Who purchase food at your home? Both Equipment use for cooking/food storage Has everything Food Assistance(Ex.WIC, Food [place]) Declined Dining out Yes Lunch everyday during [...] 2 day food log. Please refer to [employer] its for other goals. Reviewed the Diabetes [...]
--- OUTSIDE RECORDS SUMMARY | 2024-08-09 15:00 | XMS_ITS | Encounter Summary ---
Author Organization [facility] Address [address] [place] [address] Care Team Providers Care Blood Bank Specialist Name Role Phone Juaquin Rae Amira SORIA Primary Care Provider [phone]- [phone] Encounter Details Date Type Department Care Team (Latest Contact Info) Description 08/09/2024 3:00 PM EDT Ancillary Procedure [facility] [address] [place] [address] 28 weeks gestation of ([facility]); Multigravida of advanced maternal age in third trimester ([facility]) Social History Tobacco Use Types Packs/Day Years [...] Care Team (Late st Contact Info) Description 08/31/2024 11:20 AM EDT Routine [facility] [address] [place] [address] Matt Stapleton, DO [facility] [address], [place] [address] 10/26/2024 4:00 PM EDT Office Visit [facility] [address] Matt Stapleton, DO [address] [facility] [place] [address] documented as of this encounter Goals Goal Patient Goal Type Associated Problems Recent Progress Patient-Stated? Author Reminders Care Plan OB Reminders No Open Scheduling, Background documented as of this encounter Procedures Procedure Name Priority Date/Time Associated Diagnosis Comments US OB FOLLOW UP TRANSABDOMINAL APPROACH Routine 08/09/2024 3:32 PM EDT 28 weeks gestation of ([facility]) Multigravida of advanced maternal age in third trimester ([facility]) documented in this encounter Results * US [...] II, MD, PHD at 11-Aug-2024 08:51:27 AM [facility] Procedure Note Bela Maria MD - [...] signed by BELA MARIA II, MD, PHD [id number] 08:51:27 AM [facility] Matt Stapleton DO [facility] OB US PROCEDURES Final Resul t documented in this encounter Visit Diagnoses Diagnosis 28 weeks gestation of ([facility]) Multigravida of advanced maternal age in third trimester ([facility]) documented in this encounter Additional Health Concerns Active Problems Noted Date Diagnosed Date OB Reminders 04/14/2024 documented as of this encounter Care Teams Blood Bank Specialist Relationship Specialty Start Date End Date Juaquin Rae DO [address] [place] [address] PCP - General Family Medicine 07/15/22 documented as of this encounter
--- OUTSIDE RECORDS SUMMARY | 2024-08-15 13:30 | XMS_ITS | Encounter Summary ---
Author Organization [facility] tem Address [id number] [address] [place] [address] Care Team Providers Care Audiology Assistant Name Role Phone Unavailable Primary Care Provider Unavailabl e Encounter Details Date Type Department Care Team (Late st Contact Info) Description 08/15/2024 1:30 PM EDT Telemedicine Maternal- Medicine at [facility] [address] [place] [phone] Lucretia Art PA-C [address] [address] Gestational diabetes requiring insulin (Primary Dx) Social [...] is present at work, provider present at [facility] HISTORY OF PRESENT ILLNESS: Jonna Weller is [...] by e-mail to: or by fax to: [phone] Lucretia Art PA-C Maternal- Medicine Office phone: [phone] Lucretia Art PA-C 08/15/24 8659 documented in this encounter Plan of Treatment [...]
--- OUTSIDE RECORDS SUMMARY | 2024-08-17 11:00 | XMS_ITS | Encounter Summary ---
Author Organization [facility] Address [address] [place] [address] Care Team Providers Care Vacuum Closing Machine Operator Name Role Phone Juaquin Rae DO Primary Care Provider +1- [phone] Reason for Visit * Reason Comments Routine Visit Encounter Details Date Type Department Care Team (Late Contact Info) Description 08/17/2024 11:00 AM EDT Routine [facility] [address] [place] [phone] Matt Stapleton DO [address] [facility] [address] Jett [place], [facility] Third trimester ([facility]); 33 weeks gestation of ([facility]) Social History Tobacco Use Types Packs/Day Years [...] Sign Reading Time Taken Comments Blood Pressure 116/76 08/17/2024 11:20 AM EDT Pulse - - Temperature - - Respiratory Rate - - Oxygen Saturation - - Inhaled Oxygen Concentration - - Weight 109 kg (240 lb 6.4 oz) 08/17/2024 11:20 A M EDT Height - - Body Mass Index 40 05/30/2021 12:00 PM EDT documented in this encounter Progress Notes * Bisi Nixon, COTTON BREEDER - 08/17/2024 11:00 AM EDT Reason for Appointment: Patient ID: Jonna Weller is a 38 y.o. female who presents for Routine Visit Patient presents today for Return OB appointment. MEDICATIONS Current Outpatient Medications Medication Instructions Alcohol Swabs (Alcohol Prep Pad) 70 % pads 1 Pad, Topical, Daily, Use four times daily to check FSBS. Blood Glucose Monitoring Suppl (D-Apto Glucometer) w/Device kit 1 kit, Does not apply, Daily, Use four times daily to check FSBS. In the morning prior to breakfast & 1 hour after each meal for a total of 4times daily. insulin NPH (Isophane) (HUMULIN N,NOVOLIN N) 5 Units, Subcutaneous, 2 times daily before meals insulin NPH-insulin regular (NovoLIN) (70-30) 100 UNIT/ML injection 5 Units, Subcutaneous, 2 times daily before meals insulin syringe 29G X 1/2 0.5 mL misc Use as instructed iron polysaccharides (PROFE) 391.3 mg, Oral, Daily Lantus SoloStar 14 Units promethazine (Phenergan) 12.5 MG tablet TAKE 1 TABLET (12.5 MG) BY MOUTH EVERY 6 HOURS IF NEEDED FOR NAUSEA OR VOMITING ALLERGIES Allergies Allergen Reactions Cat Dander Itching Latex Rash Loracarbef Unknown Other Reaction(s): Unknown Nsaids Itching, Other and Unknown Pt states adverse reaction of ulcers occurs [...] nursing note reviewed. Exam conducted with a erecting crane operator present. Vitals: Estimated body mass index is 40 kg/m?? as calculated from the following: Height as of 05/30/21: 5' 5 . Weight as of this encounter: 240 lb 6.4 oz. BP: 116/76 Patient's last menstrual period was 12/18/2023. ASSESSMENT & PLAN ICD-10-CM 1. Third trimester Z34.93 2. 33 weeks gestation of Z3A.33 Return OB: Patient presents today for a routine obstetrics appointment. Patient is currently 33w4d . Patient states she is doing well but has complaints of being tired due to current . Pt has elevated blood pressure, will deliver on 09/14/24. Reviewed labs with pt in detail. Patient has verbalizes frequent movement. labor precautions was discussed/given and patient was instructed to perform kick counts three times a day. Pt to come off work now until 12 weeks after delivery for elevated blood pressures and glucose control. Pt seeing M for glucose and insulin control. No orders of the defined types were placed in this encounter. Follow Up: Patient is to return to office in 2 week for routine OB appointment. Documented by iBsi Nixon LPN on behalf of: Matt Stapleton DO documented in this encounter Plan of Treatment Upcoming Encounters Date Type Department Care Team (Late st Contact Info) Description 08/31/2024 11:20 AM EDT Routine [facility] OB [address] [facility] [place] [address] Matt Stapleton DO [address] [place] [address] Dr Jett [place], [facility] 10/26/2024 4:00 PM EDT Office Visit [facility] OB [address] [facility] [place] [address] Matt Stapleton, [address] [place] [address] Dr Jett [place], [facility] documented as of this encounter Goals Goal Patient Goal Type Associated Problems Recent Progress Patient-Stated? Author Reminders Care Plan OB Reminders No Open Scheduling, Background documented as of this encounter Visit Diagnoses Diagnosis Third trimester ([facility]) state, incidental 33 weeks gestation of ([facility]) documented in this encounter Additional Health Concerns Active Problems Noted Date Diagnosed Date OB Reminders 04/14/2024 documented as of this encounter Care Teams Vacuum Closing Machine Operator Relationship Specialty Start Date End Date Juaquin Rae DO [address] [facility] [address] [place] [address] PCP - General Family Medicine 07/15/22 documented as of this encounter
--- OUTSIDE RECORDS SUMMARY | 2024-08-22 09:59 | XMS_ITS | Encounter Summary ---
Author Organization [facility] Address [address] [place] [address] Care Team Providers Care Punch Press Operator Name Role Phone Juaquin Rae DO Primary Care Provider +1- [phone] Encounter Details Date Type Department Care Team (Late st Contact Info) Description 04/05/2024 Abstract [facility] [address] [place] [address] [place] [phone] Juaquin Rae, DO [address] [place] [address] [place] [address] Social History Tobacco Use Types Packs/Day Years [...] AM EDT Routine [facility] OB [address] [place] [phone] Matt Stapleton DO [address] [place] [address] 10/26/2024 4:00 PM EDT Office Visit [facility] B[facility] OB [address] [place] [address] Matt Stapleton, [address] [facility] [place] [address] documented as of this encounter Visit Diagnoses Not on filedocumented in this encounter Care Teams Punch Press Operator Relationship Specialty Start Date End Date Juaquin Rae DO [address] [facility] [address] [place] [address] PCP - General Family Medicine 07/15/22 documented as of this encounter
--- OUTSIDE RECORDS SUMMARY | 2024-08-22 09:59 | XMS_ITS | Encounter Summary ---
Author Organization [facility] Address [address] [place] [address] Care Team Providers Care House Shorer Name Role Phone Juaquin Rae DO Primary Care Provid er Source Comments In the event this information is protected by the Federal Confidentiality of Alcohol and Drug AbusePatient Records regulations: The Federal rules restrict any use of the information to criminally investigate or prosecute any alcohol or drug abuse patient.[facility] Encounter Details Date Type Department Care Team (Late st Contact Info) Description 02/09/2018 Patient Msg Dermatology [address] [place], [place] [id number] Provider, Ccf Reschedule 02/09/2018 appointment Social History Tobacco Use Types Packs/Day Years [...] on filedocumented in this encounter Care Teams House Shorer Relationship Specialty Start Date End Date Juaquin Rae DO [address] [place] [address] PCP - General Family Medicine 06/10/16 documented as of this encounter
--- OUTSIDE RECORDS SUMMARY | 2024-08-22 09:59 | XMS_ITS | Encounter Summary ---
Author Organization [facility] Address [address] [place] [address] Care Team Providers Care Personal Service Workers Name Role Phone Juaquin Rae Primary Care Provider +1- [phone] Encounter Details Date Type Department Care Team (Late st Contact Info) Description 2023 Orders Only [facility] OB [address] [place] [address] Susi Hurtado [address] [place] [address] Social History Tobacco Use Types Packs/Day Years [...] Description 08/31/2024 11:20 AM EDT Routine [facility] OB [address] [place] [address] Matt Stapleton DO [address] [place], [place] [address] 10/26/2024 4:00 PM EDT Office Visit [facility] OB [address] [place] [address] Matt Stapleton, [address] [place] [address] documented as of this encounter Procedures Procedure Name Priority Date/Time Associated Diagnosis Comments PAP SMEAR Routine 10/20/2023 12:00 AM EDT documented in this encounter Results * Pap Smear (10/20/2023 12:00 AM EDT) Swab Cervical swab / Unknown us Matt Stapleton DO LAB CYTOLOGY ORDERABLES Final Re sult EXTERNAL LAB documented in this encounter Visit Diagnoses Not on filedocumented in this encounter Care Teams Personal Service Workers Relationship Specialty Start Date End Date Juaquin Rae DO [address] [place] [address] [place] [address] PCP - General Family Medicine 07/15/22 documented as of this encounter
--- OUTSIDE RECORDS SUMMARY | 2024-08-22 09:59 | XMS_ITS | Encounter Summary ---
Author Organization [facility] tem Address [id number] [address] [place] [address] Care Team Providers Care Collar Packer Name Role Phone Unavailable Primary Care Provider Unavailabl e Encounter Details Date Type Department Care Team (Late st Contact Info) Description 08/04/2024 Orders Only Maternal- Medicine at [facility] [address] [place] [address] Ref Prov, [place] [address] Social History Tobacco Use Types Packs/Day Years [...]
--- OUTSIDE RECORDS SUMMARY | 2024-08-22 09:59 | XMS_ITS | Encounter Summary ---
Author Organization [facility] Address [address] [place] [address] Care Team Providers Care Direct Care Staffer Name Role Phone KeenanJuaquin pittman Amira SORIA Primary Care Provider +1- [phone] Encounter Details Date Type Department Care Team (Late st Contact Info) Description 03/14/2024 Abstract [facility] OB [address] [place] [address] Matt Stapleton [facility] [address] [place], [place] [address] Social History Tobacco Use Types Packs/Day Years [...] Description 08/31/2024 11:20 AM EDT Routine [facility] OB [address] [place] [address] Matt Stapleton DO [facility] [address] [place], [place] [address] 10/26/2024 4:00 PM EDT Office Visit [facility] [address] Matt Stapleton, [address] [facility] [place] [address] documented as of this encounter Visit Diagnoses Not on filedocumented in this encounter Care Teams Direct Care Staffer Relationship Specialty Start Date End Date Juaquin Rae DO [address] [facility] [address] [place] [address] PCP - General Family Medicine 07/15/22 documented as of this encounter
--- OUTSIDE RECORDS SUMMARY | 2024-08-22 09:59 | XMS_ITS | Encounter Summary ---
Author Organization [facility] Address [address] [place] [address] Care Team Providers Care Sales Contract Administrator Name Role Phone Juaquin Rae Primary Care Provider +1- [phone] Encounter Details Date Type Department Care Team (Late st Contact Info) Description 08/15/2024 Clinisync Result Encounter N[facility] External Department Unsolicited Matt Stapleton [facility] [place], [place] [id number] Social History Tobacco Use Types Packs/Day Years [...] Routine [facility] B[facility] OB [address] [place] [address] Matt Stapleton DO [facility] Yusuf [place], [place] [address] 10/26/2024 4:00 PM EDT Office Visit [facility] OB [address] [place] [address] Matt Stapleton DO [address] [facility] [place] [address] documented as of this encounter Goals Goal Patient Goal Type Associated Problems Recent Progress Patient-Stated? Author Reminders Care Plan OB Reminders No Open Scheduling, Background documented as of this encounter Procedures Procedure Name Priority Date/Time Associated Diagnosis Comments TBH UA (CLEAN/CATCH) AGER TENDER/MICRO IF IND. Routine 08/15/2024 4:25 PM EDT documented in this encounter Results * (ABNORMAL) [facility] UA (CLEAN/CATCH) AGER TENDER/MICRO IF IND. (08/15/2024 4:25 PM EDT) COLOR URINE YELLOW YELLOW TBH CLARITY URINE SL CLOUDY CLEAR TBH SPECIFIC GRAVITY URINE >=1.030(A) 1.005 - 1.025 TBH PH URINE 6.0 5.0 - 9.0 TBH PROTEIN URINE TRACE NEG/TRACE mg/dL TBH GLUCOSE URINE UA 100(A) NEGATIVE mg/dL [facility] BILIRUBIN URINE NEGATIVE NEGATIVE TBH KETONES URINE TRACE(A) NEGATIVE mg/dL TBH BLOOD URINE NEGATIVE NEGATIVE TBH NITRITE URINE NEGATIVE NEGATIVE TBH UROBILINOGEN URINE 1.0 0.2 - 1.0 EU/dL TBH LEUKOCYTE ESTERASE URINE NEGATIVE NEGATIVE TBH URINE MICROSCOPIC INDICATED NO TBH 08/15/2024 4:25 PM EDT 08/15/2024 4:39 PM EDT Narrative [facility] - 08/15/2024 4:45 PM EDT Matt Stapleton DO [facility] Final Result [facility] documented in this encounter Visit Diagnoses Not on filedocumented in this encounter Additional Health Concerns Active Problems Noted Date Diagnosed Date OB Reminders 04/14/2024 documented as of this encounter Care Teams Sales Contract Administrator Relationship Specialty Start Date End Date Juaquin Rae DO [address] [place] [address] [place] [address] PCP - General Family Medicine 07/15/22 documented as of this encounter
--- OUTSIDE RECORDS SUMMARY | 2024-08-22 09:59 | XMS_ITS | Encounter Summary ---
Author Organization [facility] Address [address] [place] [address] Care Team Providers Care Stationary Engineer Supervisor Name Role Phone Juaquin Rae Primary Care Provider +1- [phone] Encounter Details Date Type Department Care Team (Late st Contact Info) Description 11/21/2023 Clinisync Result Encounter [facility] External Department Unsolicited Neisha Stapleton, DO [address] [place] [place], [facility] Social History Tobacco Use Types Packs/Day [...] Routine [facility] B[facility] OB [address] [place] [address] Neisha Stapleton DO [address] [place], [place] [address] 10/26/2024 4:00 PM EDT Office Visit [facility] B[facility] OB [address] [place] [address] Neisha Stapleton, DO [address] [place] [address] documented as of this encounter Procedures Procedure Name Priority Date/Time Associated Diagnosis Comments US PELVIS W/ TRANSVAGINAL 11/21/2023 9:17 AM EDT documented in this encounter Results * US PELVIS W/ TRANSVAGINAL (11/21/2023 9:17 AM EDT) Anatomical Region Laterality Modality Other 11/21/2023 9:17 AM EDT Narrative 11/21/2023 9:20 AM EDT [place] [id number] Ultrasound Report Signed Patient: MICHAEL ROQUE MR#: [id number] : 1985 Acct:[id number] Age/Sex: 38 / F ADM Date: 11/21/23 Loc: US Attending Dr: Neisha Stapleton D.O. Ordering Physician: Neisha Stapleton D.O. Date of Service: 11/21/23 Procedure(s): US pelvis w/ transvaginal Accession Number(s): [id number] cc: Neisha Stapleton D.O.; Physician,Non-Staff M.DJonathan [address] [address] Patient Name: MICHAEL ROQUE MRN: [id number] date: 1985 Sex: F Assigned Patient Location: US Current Patient Location: US Accession/Order Number: [id number] Exam Date: 11/21/2023 08:14 Report Date: 11/21/2023 [...] M.D. Signed By: 11/21/23919 DD/ 6 TD/TT: Cephalometric Analyst: Procedure Note Radiology, Radiologist, MD - 11/21/2023 [place] [address] Ultrasound Report Signed Patient: MICHAEL ROQUE RMR#: [id number] : 1985Acct:[id number] Age/Sex: 38 / FADM Date: 11/21/23 Loc: US Attending Dr: Neisha Stapleton D.O. Ordering Physician: Neisha Stapleton D.O. Date of Service: 11/21/23 Procedure(s): US pelvis w/ transvaginal Accession Number(s): [id number] cc: Neisha Stapleton D.O.; Physician,Non-Staff Ramiro The [place] [address] Patient Name: MICHAEL ROQUE MRN: [id number] date: 1985 Sex: F Assigned Patient Location: US Current Patient Location: US Accession/Order Number: [id number] Exam Date: 11/21/2023 08:14 Report Date: 11/21/2023 [...] Wolff M.D. Signed By:11/21/23919 DD/ 6 TD/TT: Cephalometric Analyst: us Neisha Daya DO [facility] Final Result documented in this encounter Visit Diagnoses Not on filedocumented in this encounter Care Teams Stationary Engineer Supervisor Relationship Specialty Start Date End Date Juaquin Rae DO [address] [facility] [address] [place] [address] PCP - General Family Medicine 07/15/22 documented as of this encounter
--- OUTSIDE RECORDS SUMMARY | 2024-08-22 09:59 | XMS_ITS | Encounter Summary ---
Author Organization [facility] tem Address [id number] [address] [place] [address] Care Team Providers Care Drama Critic Name Role Phone Unavailable Primary Care Provider Unavailabl e Encounter Details Date Type Department Care Team (Late st Contact Info) Description 08/03/2024 Orders Only Maternal- Medicine at [facility] [address] [place] [address] Ref Prov, [place] [address] Social History Tobacco Use Types Packs/Day Years [...]
--- OUTSIDE RECORDS SUMMARY | 2024-08-22 09:59 | XMS_ITS | Encounter Summary ---
Author Organization [facility] Address [facility]-[id number] [address] [place] [address] Care Team Providers Care Quoter Name Role Phone Unavailable Primary Care Provider [...]
--- OUTSIDE RECORDS SUMMARY | 2024-08-22 09:59 | XMS_ITS | Encounter Summary ---
Author Organization [facility] Address [address] [place] [address] Care Team Providers Care General Maintenance Helper Name Role Phone Juaquin Rae DO Primary Care Provid er Source Comments In the event this information is protected by the Federal Confidentiality of Alcohol and Drug AbusePatient Records regulations: The Federal rules restrict any use of the information to criminally investigate or prosecute any alcohol or drug abuse patient.[facility] Encounter Details Date Type Department Care Team (Late st Contact Info) Description 10/01/2017 Patient Msg Internal Medicine [facility] [place] [address] Renee Sawyer MD [address] [place] [address] RE: Appointment Cancellation Request Social [...] on filedocumented in this encounter Care Teams General Maintenance Helper Relationship Specialty Start Date End Date Juaquin Rae DO [address] [facility] [address] [place] [address] PCP - General Family Medicine 06/10/16 documented as of this encounter
--- OUTSIDE RECORDS SUMMARY | 2024-08-22 09:59 | XMS_ITS | Encounter Summary ---
Author Organization [facility] Address [address] [place] [address] Care Team Providers Care Supervisory Lifeguard Name Role Phone Juaquin Rae DO Primary Care Provid er Source Comments In the event this information is protected by the Federal Confidentiality of Alcohol and Drug AbusePatient Records regulations: The Federal rules restrict any use of the information to criminally investigate or prosecute any alcohol or drug abuse patient.[facility] Encounter Details Date Type Department Care Team (Late st Contact Info) Description 02/08/2018 Patient Msg Dermatology [address] [place] [address] Provider, Ccf Appointment tomorrow Social [...] on filedocumented in this encounter Care Teams Supervisory Lifeguard Relationship Specialty Start Date End Date Juaquin Rae DO [address] [facility] [address] [place] [address] PCP - General Family Medicine 06/10/16 documented as of this encounter
--- OUTSIDE RECORDS SUMMARY | 2024-08-22 09:59 | XMS_ITS | Encounter Summary ---
Author Organization [facility] Address [address] [place] [address] Care Team Providers Care Traffic Signal Repairer Name Role Phone KeenanJuaquin pittman Amira SORIA Primary Care Provider +1- [phone] Encounter Details Date Type Department Care Team (Late st Contact Info) Description 03/11/2024 Abstract [facility] OB [address] [place] [address] Matt Stapleton [facility] [address], [place] [address] Social History Tobacco Use Types Packs/Day Years [...] Description 08/31/2024 11:20 AM EDT Routine [facility] OB [address] [place] [address] Matt Stapleton DO [facility] [address] [place], [place] [address] 10/26/2024 4:00 PM EDT Office Visit [facility] [address] Matt Stapleton, [address] [facility] [place] [address] documented as of this encounter Visit Diagnoses Not on filedocumented in this encounter Care Teams Traffic Signal Repairer Relationship Specialty Start Date End Date Juaquin Rae DO [address] [facility] [address] [place] [address] PCP - General Family Medicine 07/15/22 documented as of this encounter
--- OUTSIDE RECORDS SUMMARY | 2024-08-22 10:00 | XMS_ITS | Encounter Summary ---
Author Organization [facility] Address [address] [place] [address] Care Team Providers Care Hand Ii Thermal Cutter Name Role Phone Juaquin Rae Amira SORIA Primary Care Provider +1- [phone] Encounter Details Date Type Department Care Team (Late st Contact Info) Description 06/06/2024 Abstract [facility] OB [address] [place] [address] Maria Victoria Zelaya LPN Social History [...] Description 08/31/2024 11:20 AM EDT Routine [facility] OB [address] [place] [address] Matt Stapleton DO [address] [place], [facility] 10/26/2024 4:00 PM EDT Office Visit [facility] B[facility] OB [address] [place] [address] Matt Stapleton, [address] [place] [address] documented as of this encounter Goals Goal Patient Goal Type Associated Problems Recent Progress Patient-Stated? Author Reminders Care Plan OB Reminders No Open Scheduling, Background documented as of this encounter Visit Diagnoses Not on filedocumented in this encounter Additional Health Concerns Active Problems Noted Date Diagnosed Date OB Reminders 04/14/2024 documented as of this encounter Care Teams Hand Ii Thermal Cutter Relationship Specialty Start Date End Date Juaquin Rae DO [address] [place] [address] PCP - General Family Medicine 07/15/22 documented as of this encounter
--- OUTSIDE RECORDS SUMMARY | 2024-08-22 10:00 | XMS_ITS | Encounter Summary ---
Author Organization [facility] Address [address] [place] [address] Care Team Providers Care Director Of Sports Performance Name Role Phone Juaquin Rae Amira SORIA Primary Care Provider +1- [phone] Encounter Details Date Type Department Care Team (Late st Contact Info) Description 02/09/2024 Clinisync Result Encounter [facility] External Department Unsolicited Neisha Stapleton, DO [address] [place], [facility] Social History Tobacco Use Types Packs/Day [...] BCP [place] [address] [place] [address] Neisha Stapleton DO [address] [place], [facility] 10/26/2024 4:00 PM EDT Office Visit [facility] BCP [place] [address] [place] [address] Neisha Stapleton, DO [address] [place] [address] [phone] (work) documented as of this encounter Procedures Procedure Name Priority Date/Time Associated Diagnosis Comments US OB TRANSVAGINAL 02/09/2024 10 :09 AM EST documented in this encounter Results * US OB TRANSVAGINAL (02/09/2024 10:09 AM EST) Anatomical Region Laterality Modality Other 02/09/2024 10:0 9 AM EST Narrative 02/09/2024 10:12 AM EST [address] [address] Ultrasound Report Signed Patient: MICHAEL ROQUE MR#: [id number] : 1985 Acct:[id number] Age/Sex: 38 / F ADM Date: 02/09/24 Loc: [facility] Attending Dr: Neisha Stapleton D.O. Ordering Physician: Neisha Stapleton D.O. Date of Service: 02/09/24 Procedure(s): US OB transvaginal Accession Number(s): [id number] cc: Neisha Stapleton D.O.; Physician,Non-Staff M.Cristal [address] [address] Patient Name: MICHAEL ROQUE MRN: [id number] date: 1985 Sex: F Assigned Patient Location: [facility] Current Patient Location: [facility] Accession/Order Number: [id number] Exam Date: 02/09/2024 09:06 Report Date: 02/09/2024 [...] Signed By: 02/09/24 1012 DD/ 1009 TD/TT: Collator Hand: Procedure Note Radiology, Radiologist, MD - 02/09/2024 [place] [address] Ultrasound Report Signed Patient: MICHAEL ROQUE RMR#: [id number] : 1985Acct:[id number] Age/Sex: 38 / FADM Date: 02/09/24 Loc: [facility] Attending Dr: Neisha Stapleton D.O. Ordering Physician: Neisha Stapleton D.O. Date of Service: 02/09/24 Procedure(s): US OB transvaginal Accession Number(s): [id number] cc: Neisha Stapleton D.O.; Physician,Non-Staff Ramiro The [address] [address] Patient Name: MICHAEL ROQUE MRN: [id number] date: 1985 Sex: F Assigned Patient Location: [facility] Current Patient Location: [facility] Accession/Order Number: [id number] Exam Date: 02/09/2024 09:06 Report Date: 02/09/2024 [...] Ultrasound age: 6 weeks 3 days Ultrasound AAMLIA: 10/01/2024 US/US OB transvaginal IMPRESSION: Viable single intrauterine gestation measuring 6 weeks 3 days Electronically authenticated by: TREMAYNE OHARA Date: 02/09/2024 10:09 Dictated By: Tremayne Ohara M.D. Signed By:02/09/24 1012 DD/ 1009 TD/TT: Collator Hand: us Neisha Stapleton DO [facility] Final Result documented in this encounter Visit Diagnoses Not on filedocumented in this encounter Care Teams Director Of Sports Performance Relationship Specialty Start Date End Date Juaquin Rae DO [address] [place] [address] PCP - General Family Medicine 07/15/22 documented as of this encounter
--- OUTSIDE RECORDS SUMMARY | 2024-08-22 10:00 | XMS_ITS | Encounter Summary ---
Author Organization [facility] Address [address] [place] [address] Care Team Providers Care Resist Coater Developer Name Role Phone Juaquin Rae DO Primary Care Provid er Source Comments In the event this information is protected by the Federal Confidentiality of Alcohol and Drug AbusePatient Records regulations: The Federal rules restrict any use of the information to criminally investigate or prosecute any alcohol or drug abuse patient.[facility] Encounter Details Date Type Department Care Team (Late st Contact Info) Description 09/02/2021 Patient Msg Dermatology [place] [address] [place] [address] Roula Hodge APRN.TRAILER TECHNICIAN [address] [place] [address] Appointment Request Social History Tobacco [...] N ot on file 02/13/2020 Data from: https://www.neighborhoodatlas.medicine.[facility].edu/. Last address used for calculation Not on [...] on filedocumented in this encounter Care Teams Resist Coater Developer Relationship Specialty Start Date End Date Juaquin Rae DO [address] [place] [address] PCP - General Family Medicine 06/10/16 documented as of this encounter
--- OUTSIDE RECORDS SUMMARY | 2024-08-22 10:00 | XMS_ITS | Clinical Summary ---
Author Organization [facility] Address [facility] [place] [address] Care Team Providers Care Financial Agent Name Role Phone Juaquin Rae DO Primary [...] Type Department Care Team Description 05/24/2024 Patient [facility] -[address] [place] [address] Sobeida Berrios RPh At your next appointment, choose [facility]. from Last 3 Months Social History [...] is lower risk 3 09/01/2023 Data from: https://www.neighborhoodatlas.[facility]/. Last address used for calculation [address] [...] Influenza Vaccine (Season Ended) 2024 [facility] Care Teams Financial Agent Relationship Specialty Start Date End Date Juaquin Rae DO [address] [place] [address] PCP - General Family Medicine 06/10/16
--- OUTSIDE RECORDS SUMMARY | 2024-08-22 10:00 | XMS_ITS | Encounter Summary ---
Author Organization [facility] Address [address] [place] [address] Phone Care Team Providers Care Transportation Aid Name Role Phone Trever Lee MD Unavailable Gina Man DO Unavailable Encounter Details Date Type Department Care Team (Late st Contact Info) Description 07/11/2023 Patient Risk Score [facility] Care Management [address] [place] [address] Social History Tobacco Use Types [...] documented as of this encounter Care Teams Transportation Aid Relationship Specialty [place] [address] [place] [address] PCP - MMO ACO PCP 03/09/23 10/07/23 Trever Lee MD [address] [facility], [address] [place], [place] [id number] Consulting Physician Neurology 02/19/23 documented as of this encounter
--- OUTSIDE RECORDS SUMMARY | 2024-08-22 10:00 | XMS_ITS | Encounter Summary ---
Author Organization [facility] Address [address] [place] [address] Care Team Providers Care Airborne Operations Superintendent Name Role Phone Juaquin Rae Primary Care Provider +1- [phone] Encounter Details Date Type Department Care Team (Late st Contact Info) Description 08/12/2024 Clinisync Result Encounter [facility] External Department Unsolicited Neihsa Stapleton [facility] [place] [address] [place], [place] [id number] Social History Tobacco Use Types Packs/Day Years [...] Routine [facility] BCP OB [address] [place] [address] Neisha Stapleton DO [facility] [address] [place], [place] [address] 10/26/2024 4:00 PM EDT Office Visit [facility] BCP OB [address] [place] [address] Neisha Stapleton DO [address] [facility] [place] [address] documented as of this encounter Goals Goal [...] PM EDT Narrative 08/12/2024 4:41 [place] [address] Ultrasound Report Signed Patient: MICHAEL ROQUE MR#: [id number] : 1985 Acct:[id number] Age/Sex: 38 / F ADM Date: 08/12/24 Loc: [facility] 254-[address]: Neisha Stapleton D.O. Ordering Physician: Neisha Stapleton D.O. Date of Service: 08/12/24 Procedure(s): US OB BPP w non-stress Accession Number(s): [id number] cc: Neisha Stapleton D.O.; Physician,Non-Staff M.D. The [address] [address] Patient Name: MICHAEL ROQUE MRN: [id number] date: 1985 Sex: F Assigned Patient Location: [facility] Current Patient Location: [facility] Accession/Order Number: [id number] Exam Date: 08/12/2024 16:37 Report Date: 08/12/2024 [...] Villegas M.D. 08/12/2024 4:38 PM Dictation Location: [place] [address] Electronically authenticated by: [id number] Y Date: 08/12/2024 16:38 Dictated By: Roddy Villegas D.O. Signed By: 08/12/24 1641 DD/ 1638 TD/TT: Rn Residential: Procedure Note Radiology, Radiologist, - 08/12/2024 [place] [address] Ultrasound Report Signed Patient: MICHAEL ROQUE RMR#: [id number] : 1985Acct:[id number] Age/Sex: 38 / FADM Date: 08/12/24 Loc: [facility] 254-[address]: Neisha Stapleton D.O. Ordering Physician: Neisha Stapleton D.O. Date of Service: 08/12/24 Procedure(s): US OB BPP w non-stress Accession Number(s): [id number] cc: Neisha Stapleton D.O.; Physician,Non-Staff Ramiro The [place] [id number] Patient Name: MICHAEL ROQUE MRN: [id number] date: 1985 Sex: F Assigned Patient Location: [facility] Current Patient Location: [facility] Accession/Order Number: [id number] Exam Date: 08/12/2024 16:37 Report Date: 08/12/2024 [...] Villegas M.D. 08/12/2024 4:38 PM Dictation Location: [place] [address] Electronically authenticated by: [id number] Y Date: 6:38 Dictated By: Roddy Villegas D.O. Signed By:08/12/24 1641 DD/ 1638 TD/TT: Rn Residential: us Neisha Daya DO [facility] Final Result documented in this encounter Visit Diagnoses Not on filedocumented in this encounter Additional Health Concerns Active Problems Noted Date Diagnosed Date OB Reminders 04/14/2024 documented as of this encounter Care Teams Airborne Operations Superintendent Relationship Specialty Start Date End Date Juqauin Rae DO [address] [place] [address] PCP - General Family Medicine 07/15/22 documented as of this encounter
--- OUTSIDE RECORDS SUMMARY | 2024-08-22 10:00 | XMS_ITS | Encounter Summary ---
Author Organization [facility] Address [address] [place] [address] Care Team Providers Care Food And Beverage Service Manager Name Role Phone Juaquin Rae Primary Care Provider +1- [phone] Encounter Details Date Type Department Care Team (Late st Contact Info) Description 08/14/2024 Clinisync Result Encounter [facility] External Department Unsolicited Matt Stapleton [facility] [place] [address] [place], [place] [address] Social History Tobacco Use Types Packs/Day Years [...] [facility] BCP OB [address] [place] [address] Matt Stapleton DO [facility] [address] [place], [place] [address] 10/26/2024 4:00 PM EDT Office Visit [facility] BCP OB [address] [place] [address] Matt Stapleton DO [address] [facility] [address] [place] [place] [address] documented as of this encounter Goals Goal [...] Matt Stapleton DO [facility] Final Result [facility] documented in this encounter Visit Diagnoses Not on filedocumented in this encounter Additional Health Concerns Active Problems Noted Date Diagnosed Date OB Reminders 04/14/2024 documented as of this encounter Care Teams Food And Beverage Service Manager Relationship Specialty Start Date End Date Juaquin Rae DO [address] [place] [address] PCP - General Family Medicine 07/15/22 documented as of this encounter
--- OUTSIDE RECORDS SUMMARY | 2024-08-22 10:00 | XMS_ITS | Encounter Summary ---
Author Organization [facility] Address [address] [place] [address] Care Team Providers Care Basket Weaver Name Role Phone Juaquin Rae Amira SORIA Primary Care Provider +1- [phone] Encounter Details Date Type Department Care Team (Late st Contact Info) Description 08/17/2024 Bamboo flowsheet N[facility] OB [address] [facility] [place] [address] Matt Stapleton [address] [place], [place] [address] Social History Tobacco Use Types Packs/Day Years [...] Description 08/31/2024 11:20 AM EDT Routine N[facility] OB [address] [place] [address] Matt Stapleton [address] [place], [facility] 10/26/2024 4:00 PM EDT Office Visit [facility] [place] [address] Matt Stapleton, DO [address] [facility] [place] [address] documented as of this encounter Goals Goal Patient Goal Type Associated Problems Recent Progress Patient-Stated? Author Reminders Care Plan OB Reminders No Open Scheduling, Background documented as of this encounter Visit Diagnoses Not on filedocumented in this encounter Additional Health Concerns Active Problems Noted Date Diagnosed Date OB Reminders 04/14/2024 documented as of this encounter Care Teams Basket Weaver Relationship Specialty Start Date End Date Juaquin Rae DO [address] [facility] [address] [place] [address] PCP - General Family Medicine 07/15/22 documented as of this encounter
--- OUTSIDE RECORDS SUMMARY | 2024-08-22 10:00 | XMS_ITS | Encounter Summary ---
Author Organization [facility] Address [address] [place] [address] Phone Care Team Providers Care Women'S Swim Coach Name Role Phone Trever Lee MD Unavailable Gina Man DO Unavailable Encounter Details Date Type Department Care Team (Late st Contact Info) Description 09/10/2023 Patient Risk Score [facility] [place] [place] Care Management [address] [place] [address] Social History Tobacco Use Types [...] documented as of this encounter Care Teams Women'S Swim Coach Relationship Specialty [place] [address] [place] [address] PCP - MMO ACO PCP 03/09/23 10/07/23 Trever Lee MD [address] [facility], [address] [place], [place] [address] Consulting Physician Neurology 02/19/23 documented as of this encounter
--- OUTSIDE RECORDS SUMMARY | 2024-08-22 10:00 | XMS_ITS | Encounter Summary ---
Author Organization [facility] tem Address [id number] [address] [place] [address] Care Team Providers Care Complaints Coordinator Name Role Phone Unavailable Primary Care Provider Unavailabl e Encounter Details Date Type Department Care Team (Late st Contact Info) Description 08/17/2024 Telephone Maternal- Medicine at [facility] [address] [facility] [place] [address] Charlene Nguyen CMA Social History Tobacco Use Types Packs/Day Years [...] encounter Miscellaneous Notes * Telephone Encounter - Charlene Nguyen CMA - 08/17/2024 11:31 AM EDT BUTTON STATION WORKER CALLED PATIENT. NO ANSWER. LEFT VOICEMAIL ASKING THE PATIENT TO CALL US TO GET SCHEDULED FORHER 1-2 WEEK FOLLOW UP WITH [facility]UM[facility] VILLAFA[facility] AT THE PROVIDER'S REQUEST. LEFT NUMBER [phone] AND INSTRUCTED HER TO SELECT OPTION 3 TO REACH ONE OF OUR SCHEDULERS TO GET SCHEDULED. documented in this encounter Plan of Treatment Not on file documented as of this encounter Visit Diagnoses Not on filedocumented in this encounter
--- OUTSIDE RECORDS SUMMARY | 2024-08-22 10:00 | XMS_ITS | Encounter Summary ---
Author Organization [facility] Address [address] [place] [address] Care Team Providers Care Prosthetic Lab Technician Name Role Phone Juaquin Rae DO Primary Care Provid er Source Comments In the event this information is protected by the Federal Confidentiality of Alcohol and Drug AbusePatient Records regulations: The Federal rules restrict any use of the information to criminally investigate or prosecute any alcohol or drug abuse patient.[facility] Encounter Details Date Type Department Care Team (Late st Contact Info) Description 12/08/2022 Patient Msg Dermatology [place] [address] [place] [address] Roula Hodge APRN.FURNACE OPERATOR AND TENDER [address] [place] [address] Appointment Request Social History Tobacco [...] N ot on file 03/28/2022 Data from: https://www.neighborhoodatlas.medicine.[facility].edu/. Last address used for calculation Felix Sheppard [...] on filedocumented in this encounter Care Teams Prosthetic Lab Technician Relationship Specialty Start Date End Date Juaquin Rae DO [address] [facility] [address] [place] [id number] PCP - General Family Medicine 06/10/16 documented as of this encounter
--- OUTSIDE RECORDS SUMMARY | 2024-08-22 10:00 | XMS_ITS | Clinical Summary ---
Author Organization [employer] tem Address [id number] [address] [place] [address] Care Team Providers Care Lace Pinner Name Role Phone Unavailable Primary Care Provider [...] each insulin pen injection. 100 each 1 Active insulin NPH (HumuLIN N,NovoLIN N) 100 [...] Encounters Date Type Department Care Team Description 08/17/2024 Telephone Maternal- Medicine at [facility] [address] [place] [address] Charlene Nguyen CMA 08/15/2024 1:30 PM EDT Telemedicine Maternal- Medicine at [facility] [address] [place] [address] Lucretia Art, KIYA Gestational diabetes requiring insulin (Primary Dx) 08/15/2024 Travel 08/09/2024 10:30 AM EDT Support Visit Maternal- Medicine at [facility] [address] [place] [address] Noelle Johnston, Ignacia Mayorga LD Gestational diabetes mellitus (GDM) in third trimester, gestational diabetes method of control unspecified 08/09/2024 Telephone Maternal- Medicine at [facility] [address] [place] [address] Noelle Johnston RN 08/09/2024 Orders Only Maternal- Medicine at [facility] [address] [place] [address] Noelle Johnston RN Insulin controlled gestational diabetes mellitus (GDM) in third trimester (Primary Dx) 08/09/2024 Orders Only Maternal- Medicine at [facility] [address] [place] [address] Bárbara Canas, FLATWORK PRESSER-CNM Insulin controlled gestational diabetes mellitus (GDM) in third trimester (Primary Dx) 08/09/2024 Travel 08/04/2024 Orders Only Maternal- Medicine at [facility] [address] [place] [address] Ref Prov, Not In System 08/03/2024 Orders Only Maternal- Medicine at [facility] [address] [place] [address] Ref Prov, Not In System 08/03/2024 Abstract Maternal- Medicine at [facility] [address] [place] [address] External, Scanning Provider from Last 3 Months [...] - Tdap) 10/26/2006 COVID-19 Vaccine (3 - 2023- season) 2023, 10/04/2020 Influenza Vaccine 11/07/2024 Pap [...]
--- OUTSIDE RECORDS SUMMARY | 2024-08-22 10:00 | XMS_ITS | Encounter Summary ---
Author Organization [facility] Address [address] [place] [address] Phone Care Team Providers Care Subscription Crew Leader Name Role Phone Trever Lee MD Unavailable [phone] Encounter Details Date Type Department Care Team (Late st Contact Info) Description 11/11/2023 Patient Risk Score [facility] Care Management [address] [place] [address] Social History Tobacco Use Types Packs/Day Years [...] documented as of this encounter Care Teams Subscription Crew Leader Relationship Specialty Start Date End Date Trever Lee MD [address] [facility], [address] [place] [address] Consulting Physician Neurology 02/19/23 documented as of this encounter
--- OUTSIDE RECORDS SUMMARY | 2024-08-22 10:00 | XMS_ITS | Encounter Summary ---
Author Organization [facility] Address [address] [place] [address] Care Team Providers Care Marketing Regional Consultant Name Role Phone KeenanJuaquin pittman Amira SORIA Primary Care Provider +1- [phone] Encounter Details Date Type Department Care Team (Late st Contact Info) Description 04/14/2024 Abstract [facility] OB [address] [place] [address] Matt Stapleton [facility] [address] [place], [place] [address] Social History Tobacco Use Types Packs/Day Years [...] Description 08/31/2024 11:20 AM EDT Routine [facility] OB [address] [place] [address] Matt Stapleton DO [facility] [address] [place], [place] [address] 10/26/2024 4:00 PM EDT Office Visit [facility] [address] Matt Stapleton, DO [address] [facility] [place] [address] documented as of this encounter Goals Goal Patient Goal Type Associated Problems Recent Progress Patient-Stated? Author Reminders Care Plan OB Reminders No Open Scheduling, Background documented as of this encounter Visit Diagnoses Not on filedocumented in this encounter Additional Health Concerns Active Problems Noted Date Diagnosed Date OB Reminders 04/14/2024 documented as of this encounter Care Teams Marketing Regional Consultant Relationship Specialty Start Date End Date Juaquin Rae DO [address] [facility] [address] [place] [address] PCP - General Family Medicine 07/15/22 documented as of this encounter
--- OUTSIDE RECORDS SUMMARY | 2024-08-22 10:00 | XMS_ITS | Encounter Summary ---
Author Organization [facility] Address [address] [place] [address] Care Team Providers Care Billing Department Supervisor Name Role Phone KeenanJuaquin pittman Amira SORIA Primary Care Provider +1- [phone] Encounter Details Date Type Department Care Team (Late st Contact Info) Description 07/01/2024 Results Follow-Up [facility] [address] [facility] [place] [address] Cathy Dick LPN [address] [place] [address] Social History Tobacco Use Types [...] AM EDT Routine [facility] BCP OB [address] [place] [address] Matt Stapleton, DO [address] [facility] [place] [address] 10/26/2024 4:00 PM EDT Office Visit [facility] OB [address] [place] [address] Matt Stapleton, DO [address] [facility] [place] [address] documented as of this encounter Goals Goal Patient Goal Type Associated Problems Recent Progress Patient-Stated? Author Reminders Care Plan OB Reminders No Open Scheduling, Background documented as of this encounter Visit Diagnoses Not on filedocumented in this encounter Additional Health Concerns Active Problems Noted Date Diagnosed Date OB Reminders 04/14/2024 documented as of this encounter Care Teams Billing Department Supervisor Relationship Specialty Start Date End Date Juaquin Rae DO [address] [facility] [address] [place] [address] PCP - General Family Medicine 07/15/22 documented as of this encounter
--- OUTSIDE RECORDS SUMMARY | 2024-08-22 10:00 | XMS_ITS | Encounter Summary ---
Author Organization [facility] Address [address] [place] [address] Care Team Providers Care Carpentry Instructor Name Role Phone Juaquin Rae Primary Care Provider [phone]- [phone] Encounter Details Date Type Department Care Team (Late st Contact Info) Description 08/19/2024 Clinisync Result Encounter [facility] External Department Unsolicited Neisha Stapleton [facility] [place], [place] [id number] Social History Tobacco Use Types Packs/Day Years [...] Routine [facility] [address] [place] [address] Neisha Stapleton DO [facility] [address] [place], [place] [id number] 10/26/2024 4:00 PM EDT Office Visit [facility] [address] [place] [address] Neisha Stapleton DO [address] [facility] [place] [address] documented as of this encounter Goals Goal Patient Goal Type Associated Problems Recent Progress Patient-Stated? Author Reminders Care Plan OB Reminders No Open Scheduling, Background documented as of this encounter Procedures Procedure Name Priority Date/Time Associated Diagnosis Comments US OB BPP W NON-STRESS 08/19/2024 6:46 PM EDT documented in this encounter Results * US OB BPP W NON-STRESS (08/19/2024 6:46 PM EDT) Anatomical Region Laterality Modality Other 08/19/2024 6:46 PM EDT Narrative 08/19/2024 6:49 [place] [address] Ultrasound Report Signed Patient: MICHAEL ROQUE MR#: [id number] : 1985 Acct:[id number] Age/Sex: 38 / F ADM Date: 08/19/24 Loc: US Attending Dr: Neisha Stapleton D.O. Ordering Physician: Neisha Stapleton D.O. Date of Service: 08/19/24 Procedure(s): US OB BPP w non-stress Accession Number(s): [id number] cc: Neisha Stapleton D.O.; Physician,Non-Staff M.D. The [address] [address] Patient Name: MICHAEL ROQUE MRN: [id number] date: 1985 Sex: F Assigned Patient Location: [facility] Current Patient Location: Accession/Order Number: [id number] Exam Date: 08/19/2024 18:44 Report Date: 08/19/2024 18:46 At the request of: NEISHA STAPLETON DO Procedure: US OB BPP w non-stress Ultrasound biophysical profile HISTORY: Gestational diabetes Adequate breathing movement, gross body movement, tone and amniotic fluid volume for total score of 8 out of 8. The amniotic fluid index is 11.8cm within normal limits. The heart rate 163 bpm. US/US OB BPP w non-stress IMPRESSION: Adequate ultrasound biophysical profile Impression dictated by: Roddy Villegas M.D. 08/19/2024 6:46 PM Dictation Location: [place] [address] Electronically authenticated by: [id number] Y Date: 08/19/2024 18:46 Dictated By: Roddy Villegas D.O. Signed By: 08/19/241848 DD/ 45 TD/TT: Manufacturing Engineer: Procedure Note Radiology, Radiologist, MD - 08/19/2024 [place] [address] Ultrasound Report Signed Patient: MICHAEL ROQUE RMR#: [id number] : 1985Acct:[id number] Age/Sex: 38 / FADM Date: 08/19/24 Loc: US Attending Dr: Neisha Stapleton D.O. Ordering Physician: Neisha Stapleton D.O. Date of Service: 08/19/24 Procedure(s): US OB BPP w non-stress Accession Number(s): [id number] cc: Neisha Stapleton D.O.; Physician,Non-Staff [place] The [place] [id number] Patient Name: MICHAEL ROQUE MRN: [facility]:[id number] date: 1985 Sex: F Assigned Patient Location: [facility] Current Patient Location: Accession/Order Number: [id number] Exam Date: 08/19/2024 18:44 Report Date: 08/19/2024 18:46 At the request of: NEISHA STAPLETON DO Procedure: US OB BPP w non-stress Ultrasound biophysical profile HISTORY: Gestational diabetes Adequate breathing movement, gross body movement, tone and amniotic fluid volume for total score of 8 out of 8. The amniotic fluidindex is 11.8cm within normal limits. The heart rate 163 bpm. US/US OB BPP w non-stress IMPRESSION: Adequate ultrasound biophysical profile Impression dictated by: Roddy Villegas M.D. 08/19/2024 6:46 PM [facility] by: [id number] Y Date: 8:46 Dictated By: Roddy Villegas D.O. Signed By:08/19/241848 DD/ 45 TD/TT: Manufacturing Engineer: us Neisha Daya DO [facility] Final Result documented in this encounter Visit Diagnoses Not on filedocumented in this encounter Additional Health Concerns Active Problems Noted Date Diagnosed Date OB Reminders 04/14/2024 documented as of this encounter Care Teams Carpentry Instructor Relationship Specialty Start Date End Date Juaquin Rae DO [address] [address] PCP - General Family Medicine 07/15/22 documented as of this encounter
--- OUTSIDE RECORDS SUMMARY | 2024-08-22 10:00 | XMS_ITS | Encounter Summary ---
Author Organization [facility] Address [address] [place] [address] Care Team Providers Care Vest Presser Name Role Phone ButchJuaquin Amira SORIA Primary Care Provider [phone]- [phone] Encounter Details Date Type Department Care Team (Late st Contact Info) Description 08/11/2024 Telephone [facility] OB [address] [place] [address] [place] [id number] Maria Victoria Zelaya LPN Social History Tobacco [...] urine could be ordered and sent to [facility] lab and [facility] scheduling. PVU and will continue to monitor symptoms and also continue with her NST/BPPs.Maria Victoria Jennings LPN documented in this encounter Plan of Treatment Upcoming Encounters Date Type Department Care Team (Late st Contact Info) Description 08/31/2024 11:20 AM EDT Routine [facility] OB [address] [facility] [address] Matt Stapleton, DO [address] [facility] [place] [address] 10/26/2024 4:00 PM EDT Office Visit [facility] [address] [facility] [place] [address] Matt Stapleton, DO [address] [facility] [place] [address] Scheduled Orders Name Type Priority Associated Diagnoses Orde r Schedule Creatinine Lab Routine Localized swelling of both lower extremities Visual changes Third trimester ([facility]) Expected: 08/11/2024 (Approximate), Expires: 08/11/2025 Protein, urine, 24 hour Lab Routine Localized swelling of both lower extremities Visual changes Third trimester ([facility]) Expected: 08/11/2024 (Approximate), Expires: 08/11/2025 Pt and ptt Lab Routine Localized swelling of both lower extremities Visual changes Third trimester ([facility]) Expected: 08/11/2024, Expires: 08/11/2025 CBC and differential Lab Routine Localized swelling of both lower extremities Visual changes Third trimester ([facility]) Expected: 08/11/2024 (Approximate), Expires: 08/11/2025 Uric acid Lab Routine Localized swelling of both lower extremities Visual changes Third trimester ([facility]) Expected: 08/11/2024 (Approximate), Expires: 08/11/2025 Lactate dehydrogenase Lab Routine Localized swelling of both lower extremities Visual changes Third trimester ([facility]) Expected: 08/11/2024, Expires: 08/11/2025 ALT Lab Routine Localized swelling of both lower extremities Visual changes Third trimester ([facility]) Expected: 08/11/2024 (Approximate), Expires: 08/11/2025 AST Lab Routine Localized swelling of both lower extremities Visual changes Third trimester ([facility]) Expected: 08/11/2024 (Approximate), Expires: 08/11/2025 BUN Lab Routine Localized swelling of both lower extremities Visual changes Third trimester ([facility]) Expected: 08/11/2024, Expires: 08/11/2025 documented as of this encounter Goals Goal Patient Goal Type Associated Problems Recent Progress Patient-Stated? Author Reminders Care Plan OB Reminders No Open Scheduling, Background documented as of this encounter Visit Diagnoses Diagnosis Localized swelling of both lower extremities Visual changes Third trimester ([facility]) state, incidental documented in this encounter Additional Health Concerns Active Problems Noted Date Diagnosed Date OB Reminders 04/14/2024 documented as of this encounter Care Teams Vest Presser Relationship Specialty Start Date End Date Juaquin Rae DO [address] [address] PCP - General Family Medicine 07/15/22 documented as of this encounter
--- OUTSIDE RECORDS SUMMARY | 2024-08-22 10:00 | XMS_ITS | Encounter Summary ---
Author Organization [facility] Address [address] [place] [address] Phone Care Team Providers Care Turkey Boner Name Role Phone Trever Lee MD Unavailable [phone] Gina Man DO Unavailable Encounter Details Date Type Department Care Team (Late st Contact Info) Description 02/20/2023 Scanned Document [facility] [address] [facility] [address] [place] [address] Trever Lee MD [address] [facility], [facility] [address] [place] [address] Social History Tobacco Use Types Packs/Day Years [...] documented as of this encounter Care Teams Turkey Boner Relationship Specialty [place] [address] [facility] [address] [place], [place] [id number] PCP - MMO ACO PCP 03/09/23 10/07/23 Trever Lee MD [address] [facility], [place] [address] [place] [address] Consulting Physician Neurology 02/19/23 documented as of this encounter
--- OUTSIDE RECORDS SUMMARY | 2024-08-22 10:00 | XMS_ITS | Encounter Summary ---
Author Organization [facility] Address [address] [place] [address] Care Team Providers Care Brazer Helper Induction Name Role Phone Juaquin Rae DO Primary [...] Contact Info) Description 08/13/2023 Patient Msg Dermatology [facility] [address] [place] [address] Roula Hodge APRN.ENVIRONMENTAL SOLUTIONS ENGINEER [address] [place] [address] Appointment Request Social History Tobacco [...] N ot on file 03/28/2022 Data from: [email or web address] Last address used for calculation Felix Sheppard [...] on filedocumented in this encounter Care Teams Brazer Helper Induction Relationship Specialty Start Date End Date Juaquin Rae DO [address] [facility] [address] [place] [id number] PCP - General Family Medicine 06/10/16 documented as of this encounter
--- OUTSIDE RECORDS SUMMARY | 2024-08-22 10:00 | XMS_ITS | Clinical Summary ---
Author Organization [facility] Address [address] [place] [address] Care Team Providers Care Twist Packer Name Role Phone Juaquin Rae Amira SORIA Primary Care Provider [phone]- [phone] Allergies Active Allergy Reactions Criticality Noted Date Comments Cat Dander Itching Low 11/28/2022 Latex Rash Low 08/28/2022 Loracarbef Unknown Low 08/28/2022 Other Reaction(s): Unknown Nsaids Itching,Other,Unknown Low 06/10/2016 Pt states adverse reaction of [...] antepartum, gestational diabetes method of control unspecified ([facility]HS-HCC),Elevated glucose tolerance test Apply 1 Pad topically Daily Use four times daily to check FSBS. 150 each 3 025 Active Blood Glucose Monitoring Suppl (D-Care Glucometer) w/Device kitIndications:Ges tational diabetes mellitus (GDM), antepartum, gestational diabetes method of control unspecified (HHS-HCC),Elevated glucose tolerance test 1 kit Daily Use [...] 025 2024 Active insulin syringe 29G X 1/ 0.5 mL miscIndications:Ge stational diabetes mellitus (GDM), antepartum, gestational diabetes method of control unspecified ([facility]) Use as instructed 100 each 4 Active Lantus SoloStar 100 UNIT/ML pen Inject 14 Units under the skin Active metoclopramide (Reglan) 10 MG tabletIndications: Nausea [...] antepartum, gestational diabetes method of control unspecified ([facility]),Elevated glucose tolerance test 1 each by In Vitro route Daily Use to check FSBS four times daily 150 each 3 025 2024 Glucose Blood (Blood Glucose Test) stripIndications:G estational diabetes mellitus (GDM), antepartum, gestational diabetes method of control unspecified ([facility]),Elevated glucose tolerance test 1 strip by In [...] Encounters Date Type Department Care Team Description 08/19/2024 Clinisync Result Encounter NOMS External Department Unsolicited Neisha Stapleton, DO 08/17/2024 11:00 AM EDT Routine [facility] [address] [place] [address] Neisha Stapleton, DO Third trimester ([facility]); 33 weeks gestation of ([facility]) 08/17/2024 Bamboo flowsheet [facility] [address] [place] [address] Neisha Stapleton, DO 08/15/2024 Clinisync Result Encounter NOMS External Department Unsolicited Neisha Stapleton, DO 08/14/2024 Clinisync Result Encounter NOMS External Department Unsolicited Neisha Stapleton, DO 08/12/2024 Clinisync Result Encounter NOMS External Department Unsolicited Neisha Stapleton, DO 08/12/2024 Clinisync Result Encounter NOMS External Department Unsolicited Neisha Stapleton, DO 08/11/2024 Telephone [facility] [address] [place] [address] Maria Victoria Zelaya LPN 08/09/2024 3:00 PM EDT Ancillary Procedure [facility] [address] [place] [id number] 28 weeks gestation of ([facility]); Multigravida of advanced maternal age in third trimester ([facility]) 08/06/2024 Clinisync Result Encounter NOMS External Department Unsolicited Neisha Stapleton, DO 08/02/2024 9:10 AM EDT Routine [facility] [address] [place] [address] Neisha Stapleton, DO 31 weeks gestation of ([facility]); Third trimester ([facility]); Gestational diabetes mellitus (GDM), antepartum, gestational diabetes method of control unspecified ([facility]) 08/02/2024 Abstract [facility] [address] [place] [address] Neisha Stapleton, DO 08/02/2024 Abstract [facility] [address] [place] [address] Neisha Stapleton, DO 08/02/2024 Bamboo flowsheet [facility] [address] [place] [address] Neisha Stapleton, DO 07/12/2024 11:10 AM EDT Routine [facility] [address] [place] [address] Neisha Stapleton, Third trimester ([facility]); 28 weeks gestation of ([facility]); Multigravida of advanced maternal age in third trimester ([facility]); Gestational diabetes mellitus (GDM), antepartum, gestational diabetes method of control unspecified ([facility]); Elevated glucose tolerance test 07/12/2024 10:30 AM EDT Ancillary Procedure [facility] [address] [place] [address] Antepartum multigravida of advanced maternal age ([facility]) 07/01/2024 Results Follow-Up [facility] [address] [place] [address] Cathy Dick LPN 07/01/20[address] Telephone [facility] [address] [place] [address] Cathy Dick LPN 06/30/2024 Clinisync Result Encounter NOMS External Department Unsolicited Neisha Stapleton, 06/20/2024 9:40 AM EDT Routine [facility] [address] [place] [address] Neisha Stapleton, Diabetes mellitus screening; 25 weeks gestation of ([facility]); Second trimester ([facility]); Antepartum multigravida of advanced maternal age ([facility]) 06/20/2024 Bamboo flowsheet [facility] [address] [place] [address] Neisha Stapleton DO 06/06/2024 Abstract [facility] [address] [place] [address] Maria Victoria Zelaya LPN 06/02/2024 Telephone [facility] [address] [place] [address] Neisha Stapleton DO 05/23/2024 8:50 AM EDT Routine [facility] [address] [place] [address] Neisha Stapleton DO Second trimester ([facility]); 21 weeks gestation of ([facility]) 05/23/2024 8:00 AM EDT Ancillary Procedure [facility] [address] [place] [address] Screening, , for anatomic survey ([facility]) from Last 3 Months Social History Tobacco [...] oz) 08/17/2024 11:20 A M EDT Height 165.1 cm (5' 5 ) 05/30/2021 12:00 PM EDT Body Mass Index 40 05/30/2021 12:00 PM EDT Plan of Treatment Upcoming Encounters Date Type Department Care Team (Late st Contact Info) Description 08/31/2024 11:20 AM EDT Routine [facility] OB [address] [facility] [place] [phone] Neisha Stapleton, DO [address] [place] [address] 10/26/2024 4:00 PM EDT Office Visit [facility] BCP OB [address] [facility] [place] [address] Neisha Stapleton, DO [address] [facility] [place] [address] Health Maintenance Due Date Last Done Comments Influenza Vaccine (Season Ended) 2024 Cervical Cancer Screening 10/19/2028 HPV/Cotest 10/19/2028 10/17/2022, 08/27/2017 Pap Smear 10/19/2028 10/20/2023, 10/07, 03/25/2021 Goals Goal Patient Goal Type Associated Problems Recent Progress Patient-Stated? Author Reminders Care Plan OB Reminders No Open Scheduling, Background Procedures Procedure Name Priority Date/Time Associated Diagnosis Comments US OB BPP W NON-STRESS 08/19/2024 6:46 PM EDT TBH UA (CLEAN/CATCH) ELIGIBILITY ANALYST/MICRO IF IND. Routine 08/15/2024 4:25 PM EDT TBH TOTAL PROTEIN 24 HOUR URINE Routine [...] 3:32 PM EDT 28 weeks gestation of ([facility]) Multigravida of advanced maternal age in third trimester ([facility]) US OB BPP W NON-STRESS 08/06/2024 12:12 PM EDT POCT URINALYSIS DIPSTICK Routine 08/02/2024 9:27 AM EDT 31 weeks gestation of ([facility]) Third trimester ([facility]) POCT URINALYSIS DIPSTICK Routine 07/12/2024 11:33 AM EDT Third trimester ([facility]) US OB FOLLOW UP TRANSABDOMINAL APPROACH Routine 07/12/2024 10:42 AM EDT Antepartum multigravida of advanced maternal age ([facility]-HCC) GLUCOSE 1 HOUR Routine 06/30/2024 10:26 AM EDT ALL CBC WITH AUTO DIFF Routine 10:26 AM EDT POCT URINALYSIS DIPSTICK Routine 06/20/2024 10:30 AM EDT 25 weeks gestation of ([facility]) POCT URINALYSIS DIPSTICK Routine 05/23/2024 9:16 AM EDT Second trimester ([facility]) US OB 14+ WEEKS ANATOMY SCAN Routine 05/23/2024 8:56 AM EDT Screening, , for anatomic survey ([facility]) PAP SMEAR Routine 10/20/2023 12:00 AM EDT THINPREP PAP AND HPV MRNA E6/E7 W/RFL HPV 16,18/45 Routine 10/17/2022 8:40 AM EDT Well woman exam with routine gynecological exam from Last 3 Months or Most Recently Relevant to Health Maintenance Results * US OB BPP W NON-STRESS (08/19/2024 6:46 PM EDT) Only the most recent of3 resultswithin the time period is included. Anatomical Region Laterality Modality Other 08/19/2024 6:46 PM EDT Narrative 08/19/2024 6:49 [place] [address] Ultrasound Report Signed Patient: MICHAEL WELLER MR#: [id number] : 1985 Acct:[id number] Age/Sex: 38 / F ADM Date: 08/19/24 Loc: US Attending Dr: Neisha Stapleton D.O. Ordering Physician: Neisha Stapleton D.O. Date of Service: 08/19/24 Procedure(s): US OB BPP w non-stress Accession Number(s): [id number] cc: Neisha Stapleton D.O.; Physician,Non-Staff M.D. The [address] [address] Patient Name: MICHAEL WELLER MRN: [id number] date: 1985 Sex: F Assigned Patient Location: [facility] Current Patient Location: Accession/Order Number: [id number] Exam Date: 08/19/2024 18:44 Report Date: 08/19/2024 [...] Villegas M.D. 08/19/2024 6:46 PM [facility]ictation [facility] Electronically authenticated by: [id number] Y Date: 08/19/2024 18:46 Dictated By: Roddy Villegas D.O. Signed By: 08/19/241848 DD/ 45 TD/TT: Airset Caster: Procedure Note Radiology, Radiologist, - 08/19/2024 [place] [address] Ultrasound Report Signed Patient: MICHAEL WELLER RMR#: [id number] : 1985Acct:[id number] Age/Sex: 38 / FADM Date: 08/19/24 Loc: US Attending Dr: Neisha Stapleton D.O. Ordering Physician: Neisha Stapleton D.O. Date of Service: 08/19/24 Procedure(s): US OB BPP w non-stress Accession Number(s): [id number] cc: Neisha Stapleton D.O.; Physician,Non-Staff M.Cristal The [place] [address] Patient Name: MICHAEL WELLER MRN: [id number] date: 1985 Sex: F Assigned Patient Location: [facility] Current Patient Location: Accession/Order Number: [id number] Exam Date: 08/19/2024 18:44 Report Date: 08/19/2024 [...] Villegas M.D. 08/19/2024 6:46 PM Dictation [facility] Electronically authenticated by: [id number] Y Date: 8:46 Dictated By: Roddy Villegas D.O. Signed By:08/19/241848 DD/ 45 TD/TT: Airset Caster: us Neisha Daya DO [facility] Final Result * (ABNORMAL) TBH UA (CLEAN/CATCH) ELIGIBILITY ANALYST/MICRO IF IND. (08/15/2024 4:25 PM EDT) COLOR [...] Narrative [facility] - 08/15/2024 4:45 PM EDT us Neisha Daya DO [facility] Final Result [facility] TB * (ABNORMAL) TBH TOTAL PROTEIN 24 HOUR URINE (08/14/2024 7:54 AM EDT) TOTAL PROTEIN URINE RANDOM 20.8(H) <=11.9 mg/dL TBH TOTAL VOLUME 24 HOUR URINE 1,550 mL/24hr TBH TBH TOTAL PROTEIN 24 HOUR URINE 322.4(H) <=149.1 mg/24hr TBH 08/14/2024 7:54 AM EDT 08/14/2024 1:02 PM EDT Narrative [facility] - 08/14/2024 1:39 PM EDT START TIME:4 END TIME:0745 TOTAL VOLUME:1550 Neisha Daya DO [facility] Final Result Performing Organization Address [facility] de Phone Number [facility] * (ABNORMAL) TBH CREATININE (08/12/2024 3:40 PM EDT) CREATININE 0.40(L) 0.55 - 1.02 mg/dL TBH TBH EGFR-AF PRYDEINIG >60 >=60 mL/min/1.7 3m 2 TBH TBH EGFR-NON AF PRYDEINIG >60 >=60 mL/min/1.7 3m 2 TBH 08/12/2024 3:40 PM EDT 08/12/2024 3:42 PM EDT Narrative [facility] - 08/12/2024 4:47 PM EDT Neishazhang Stapleton DO [facility] Final Result Performing Organization Address [facility] Phone Number [facility] * SRMCOH PROTHROMBIN TIME INR W/O COUM (08/12/2024 3:40 PM EDT) PROTHROMBIN TIME 9.8 9.0 - 11.6 sec TBH TBH INR <0.93 TBH Comment: DESIRED INR: 2.0-3.0 CONDITIONS NOT LISTED BELOW 2.5-3.5 FOR PROSTHETIC HEART VALVE REPLACEMENT 2.5-3.5 RECURRENT THROMBOSIS 08/12/2024 3:40 PM EDT 08/12/2024 3:42 PM EDT Narrative [facility] - 08/12/2024 4:20 PM EDT Neishazhang Gambinoo DO [facility] Final Result Performing Organization Address [facility]/State/ZIP Co de Phone Number [facility] * (ABNORMAL) [facility] AST (08/12/2024 3:40 PM EDT) ASPARTATE AMINO TRANSFERASE 13(L) 15 - 37 U/L TB 08/12/2024 3:40 PM EDT 08/12/2024 3:42 PM EDT Narrative [facility] - 08/12/2024 4:47 PM EDT us Neisha Daya DO [facility] Final Result Performing Organization Address [facility] de Phone Number [facility] * [facility] APTT (08/12/2024 3:40 PM EDT) PARTIAL THROMBOPLASTIN TIME 27.1 22.3 - 36.2 sec TB 08/12/2024 3:40 PM EDT 08/12/2024 3:42 PM EDT Narrative [facility] - 08/12/2024 4:20 PM EDT Neisha Daya DO [facility] Final Result Performing Organization Address [facility] Phone Number [facility] * ALL URIC ACID (08/12/2024 3:40 PM EDT) URIC ACID 2.8 2.6 - 6.0 mg/dL TB 08/12/2024 3:40 PM EDT 08/12/2024 3:42 PM EDT Narrative [facility] - 08/12/2024 4:47 PM EDT VinPerfectzio DO [facility] Final Result Performing Organization Address [facility] de Phone Number [facility] * ALL LDH (08/12/2024 3:40 PM EDT) LACTATE DEHYDROGENASE 131 81 - 234 U/L TB 08/12/2024 3:40 PM EDT 08/12/2024 3:42 PM EDT Narrative [facility] - 08/12/2024 4:47 PM EDT us Neisha Stapleton DO [facility] Final Result [facility] * (ABNORMAL) ALL CBC WITH AUTO DIFF (08/12/2024 3:40 PM EDT) Only the most recent of2 resultswithin the time period is included. TBH WBC 8.5 4.0 - 11.0 10 [...] [facility] - 08/12/2024 3:56 PM EDT us Neisha Daya DO [facility] Final Result Performing Organization Address [facility]/ZIP Co de Phone Number [facility] * ALL BUN (08/12/2024 3:40 PM EDT) BLOOD UREA NITROGEN 10.0 7.0 - 18.0 mg/dL TBH 08/12/2024 3:40 PM EDT 08/12/2024 3:42 PM EDT Narrative [facility] - 08/12/2024 4:47 PM EDT us Neisha Daya DO [facility] Final Result Performing Organization Address [facility] Co de Phone Number [facility] * US OB follow up transabdominal approach [...] II, MD, PHD at 11-Aug-2024 08:51:27 AM [facility] Procedure Note Bela Maria MD - [...] signed by BELA MARIA II, MD, PHD [id number] 08:51:27 AM [facility] us Neisha Daya DO IM OB US PROCEDURES Final Resul t * [...] Narrative SHAMIKA - 06/30/2024 11:03 AM EDT us Neisha Daya DO LAB BLOOD ORDERABLES Final Resul t [facility] TB * US OB 14+ weeks [...] II, MD, PHD at 24-May-2024 12:33:10 AM [facility] Procedure Note Bela Maria MD - 05/24/2024 EXAM: US OB 14+ [...] Signed:Electronically signed by BELA MARIA II, MD, PHDat 24-May-2024 12:33:10 AM [facility] us Merary MCBRIDE IMG OB US [...] Diagnosed Date OB Reminders 04/14/2024 Insurance [employer] Care Teams Twist Packer Relationship Specialty Start Date End Date Juaquin Rae DO [address] [place] [address] PCP - General Family Medicine 07/15/22
--- OUTSIDE RECORDS SUMMARY | 2024-08-22 10:00 | XMS_ITS | Encounter Summary ---
Author Organization [facility] Address [address] [place] [address] Phone Care Team Providers Care Forms Examiner Name Role Phone Rafaela Garrido Primary Care Provider Unavailable Rafaela Garrido Unavailable Unava ilable Trever Lee MD Unavailable [phone] Gina Man DO Unavailable Encounter Details Date Type Department Care Team (Late st Contact Info) Description 10/09/2018 Orders Only [facility] [address] [place] [address] Conversion, Onbase Social History Tobacco Use Types [...] on filedocumented in this encounter Care Teams Forms Examiner Relationship Specialty Start Date End Date Rafaela Garrido APRN-CNP PCP - General 07/06/18 10/28/22 Rafaela Garrido APRN-CNP Office Address Unavailable as of 08/07/2022 PCP - MMO ACO PCP 03/09/21 10/06/22 [place] [address] [facility] [address] [place] [address] PCP - MMO ACO PCP 03/09/23 10/07/23 Trever Lee MD [address] [facility], [address] [place] [address] Consulting Physician Neurology 02/19/23 documented as of this encounter
--- OUTSIDE RECORDS SUMMARY | 2024-08-22 10:00 | XMS_ITS | Encounter Summary ---
Author Organization [facility] Address [address] [place] [address] Phone Care Team Providers Care Shade Cutter Name Role Phone Trever Lee MD Unavailable Gina Man DO Unavailable Encounter Details Date Type Department Care Team (Late st Contact Info) Description 08/11/2023 Patient Risk Score ACO Care Management [address] [place] [address] Social History Tobacco Use Types [...] documented as of this encounter Care Teams Shade Cutter Relationship Specialty [place] [address] [place] [address] PCP - MMO ACO PCP 03/09/23 10/07/23 Trever Lee MD [address] [facility], [address] [place] [address] Consulting Physician Neurology 02/19/23 documented as of this encounter
--- OUTSIDE RECORDS SUMMARY | 2024-08-22 10:00 | XMS_ITS | Encounter Summary ---
Author Organization [facility] Address [address] [place] [address] Care Team Providers Care Actuarial Internship Name Role Phone Juaquin Rae Primary Care Provider [phone] Encounter Details Date Type Department Care Team (Late st Contact Info) Description 01/30/2024 Clinisync Result Encounter NOMS External Department Unsolicited Neisha Stapleton, DO [address] [place] [address] [place], [facility] Social History Tobacco Use Types Packs/Day Years [...] Routine [facility] BCP OB [address] [place] [address] Neisha Stapleton DO [address] [place], [facility] 10/26/2024 4:00 PM EDT Office Visit [facility] BCP OB [address] [place] [address] Neisha Stapleton, DO [address] [place] [address] documented as of this encounter Procedures Procedure Name Priority Date/Time Associated Diagnosis Comments US OB TRANSVAGINAL 01/30/2024 7: 28 AM EST documented in this encounter Results * US OB TRANSVAGINAL (01/30/2024 7:28 AM EST) Anatomical Region Laterality Modality Other 01/30/2024 7:28 AM EST Narrative 01/30/2024 7:31 AM EST The [address] [address] Ultrasound Report Signed Patient: MICHAEL ROQUE MR#: [id number] : 1985 Acct:[id number] Age/Sex: 38 / F ADM Date: 01/29/24 Loc: US Attending Dr: Neisha Stapleton D.O. Ordering Physician: Neisha Stapleton D.O. Date of Service: 01/29/24 Procedure(s): US OB transvaginal Accession Number(s): [id number] cc: Neisha Stapleton D.O.; Physician,Non-Staff M.Cristal The [address] [address] Patient Name: MICHAEL ROQUE MRN: [id number] date: 1985 Sex: F Assigned Patient Location: US Current Patient Location: Accession/Order Number: [id number] Exam Date: 01/29/2024 16:10 Report Date: 01/30/2024 [...] M.D. Signed By: 01/30/24730 DD/ 7 TD/TT: Sharepoint Trainer: Procedure Note Radiology, Radiologist, MD - 01/30/2024 [place] [address] Ultrasound Report Signed Patient: MICHAEL ROQUE RMR#: [id number] : 1985Acct:[id number] Age/Sex: 38 / FADM Date: 01/29/24 Loc: US Attending Dr: Neisha Stapleton D.O. Ordering Physician: Neisha Stapleton D.O. Date of Service: 01/29/24 Procedure(s): US OB transvaginal Accession Number(s): [id number] cc: Neisha Stapleton D.O.; Physician,Non-Staff Ramiro The [place] [id number] Patient Name: MICHAEL ROQUE MRN: [id number] date: 1985 Sex: F Assigned Patient Location: US Current Patient Location: Accession/Order Number: [id number] Exam Date: 01/29/2024 16:10 Report Date: 01/30/2024 [...] Wolff M.D. Signed By:01/30/24730 DD/ 7 TD/TT: Sharepoint Trainer: us Neisha Stapleton DO [facility] Final Result documented in this encounter Visit Diagnoses Not on filedocumented in this encounter Care Teams Actuarial Internship Relationship Specialty Start Date End Date Juaquin Rae DO [address] [address] PCP - General Family Medicine 07/15/22 documented as of this encounter
--- OUTSIDE RECORDS SUMMARY | 2024-08-22 10:00 | XMS_ITS | Encounter Summary ---
Author Organization [facility] Address [address] [place] [address] Phone Care Team Providers Care Student Success Counselor Name Role Phone Trever Lee MD Unavailable Gina Man DO Unavailable Encounter Details Date Type Department Care Team (Late st Contact Info) Description 02/20/2023 Scanned Document [facility] [address] [facility] [address] [place] [address] Trever Lee MD [address] [facility], [facility] [address] [place] [address] Social History Tobacco Use Types Packs/Day Years [...] documented as of this encounter Care Teams Student Success Counselor Relationship Specialty [place] [address] [facility] [address] [place], [place] [id number] PCP - MMO ACO PCP 03/09/23 10/07/23 Trever Lee MD [address] [facility], [address] [place] [address] Consulting Physician Neurology 02/19/23 documented as of this encounter
--- OUTSIDE RECORDS SUMMARY | 2024-08-22 10:00 | XMS_ITS | Encounter Summary ---
Author Organization [facility] Address [address] [place] [address] Care Team Providers Care Repairer Finished Metal Name Role Phone KeenanJuaquin pittman Amira SORIA Primary Care Provider [phone]- [phone] Encounter Details Date Type Department Care Team (Late st Contact Info) Description 02/16/2024 Abstract [facility] OB [address] [place] [id number] Matt Stapleton [facility] [address] [place], [place] [address] Social History Tobacco Use Types Packs/Day Years [...] Description 08/31/2024 11:20 AM EDT Routine [facility] OB [address] [place] [phone] Matt Stapleton DO [facility] [address] [place], [place] [id number] 10/26/2024 4:00 PM EDT Office Visit [facility] [address] Matt Stapleton, [address] [facility] [place] [address] documented as of this encounter Visit Diagnoses Not on filedocumented in this encounter Care Teams Repairer Finished Metal Relationship Specialty Start Date End Date Juaquin Rae DO [address] [facility] [address] [place] [address] PCP - General Family Medicine 07/15/22 documented as of this encounter
--- OUTSIDE RECORDS SUMMARY | 2024-08-22 10:00 | XMS_ITS ---
Author Organization [facility] Source Produ ction (ClinicalSummary Clone) Address Unknown Care Team Providers Care Manager Inside Name Role Phone Unavailable Primary Care Physician Unavailab le Results * [UNITY] ANEUPLOIDY NIPT Performed by: [facility] Component Value Range Date Fraction 5.2% 03/13/2024 07 :21 am [facility] Sex Chromosome Aneuploidy NOT DETECTED 07:21 am [facility] Monosomy X LOW RISK <1 in 10,000 2024 07:21 am [facility] Trisomy 13 LOW RISK <1 in 10,000 2024 07:21 am [facility] Trisomy 18 LOW RISK <1 in 10,000 2024 07:21 am [facility] Trisomy 21 LOW RISK <1 in 10,000 2024 07:21 am [facility] Sex MALE 03/13/2024 07:2 1 am [facility] Gestation LEON 03/13/19 07:21 am [facility] For detailed report, see PDF See PDF 03/13/2024 07:21 am [facility] 03/13/2024 07:2 1 am [facility] Social History Observation Value Start Date End Date
--- OUTSIDE RECORDS SUMMARY | 2024-08-22 10:00 | XMS_ITS | Encounter Summary ---
Author Organization [facility] Address [address] [place] [address] Phone Care Team Providers Care Stockholder Name Role Phone Trever Lee MD Unavailable Gina Man DO Unavailable Encounter Details Date Type Department Care Team (Late st Contact Info) Description 06/11/2023 Patient Risk Score [facility] Care Management [address] [place] [address] Social History Tobacco Use Types [...] documented as of this encounter Care Teams Stockholder Relationship Specialty [place] [address] [place] [address] PCP - MMO ACO PCP 03/09/23 10/07/23 Trever Lee MD [address] [facility], [address] [place], [place] [phone] Consulting Physician Neurology 02/19/23 documented as of this encounter
--- OUTSIDE RECORDS SUMMARY | 2024-08-22 10:00 | XMS_ITS | Encounter Summary ---
Author Organization [facility] Address [address] [place] [address] Care Team Providers Care Stitch Bonding Machine Drawer In Name Role Phone KeenanJuaqiun pittman Amira SORIA Primary Care Provider [phone]- [phone] Encounter Details Date Type Department Care Team (Late st Contact Info) Description 08/02/2024 Abstract [facility] [address] [place] [phone] Matt Stapleton [facility] [address] [place], [place] [address] Social History Tobacco Use Types Packs/Day Years [...] Description 08/31/2024 11:20 AM EDT Routine [facility] [address] [place] [phone] Matt Stapleton DO [facility] [address] [place], [place] [id number] 10/26/2024 4:00 PM EDT Office Visit [facility] [place] [address] Matt Stapleton, DO [address] [facility] [place] [address] documented as of this encounter Goals Goal Patient Goal Type Associated Problems Recent Progress Patient-Stated? Author Reminders Care Plan OB Reminders No Open Scheduling, Background documented as of this encounter Visit Diagnoses Not on filedocumented in this encounter Additional Health Concerns Active Problems Noted Date Diagnosed Date OB Reminders 04/14/2024 documented as of this encounter Care Teams Stitch Bonding Machine Drawer In Relationship Specialty Start Date End Date Juaquin Rae DO [address] [facility] [address] [place] [address] PCP - General Family Medicine 07/15/22 documented as of this encounter
--- OUTSIDE RECORDS SUMMARY | 2024-08-22 10:00 | XMS_ITS | Encounter Summary ---
Author Organization [facility] Address [address] [place] [address] Care Team Providers Care Surgical Clinical Reviewer Name Role Phone Juaquin Rae Primary Care Provider +1- [phone] Encounter Details Date Type Department Care Team (Late st Contact Info) Description 08/12/2024 Clinisync Result Encounter [facility] External Department Unsolicited Matt Stapleton [facility] [place], [place] [id number] Social History Tobacco Use Types Packs/Day Years [...] [place] [address] Matt Stapleton DO [facility] [address] [place], [place] [id number] 10/26/2024 4:00 PM EDT Office Visit [facility] BCP OB [address] [place] [address] Matt Stapleton, DO [address] [facility] [address] Frausto Amira [place], [facility]11 documented as of this encounter Goals Goal [...] LACTATE DEHYDROGENASE 131 81 - 234 U/L [facility] 08/12/2024 3:40 PM EDT 08/12/2024 3:42 PM EDT Narrative CLINISYNC - 08/12/2024 4:47 PM EDT us Matt Stapleton DO [facility] Final Result [facility] * (ABNORMAL) [facility] AST (08/12/2024 3:40 PM EDT) ASPARTATE AMINO TRANSFERASE 13(L) 15 - 37 U/L [facility] 08/12/2024 3:40 PM EDT 08/12/2024 3:42 PM EDT Narrative CLINISYNC - 08/12/2024 4:47 PM EDT us Matt Daya DO CLINISYNC Final Result CLINISYAK TB * ALL URIC ACID (08/12/2024 3:40 PM EDT) URIC ACID 2.8 2.6 - 6.0 mg/dL [facility] 08/12/2024 3:40 PM EDT 08/12/2024 3:42 PM EDT Narrative CLINISYNC - 08/12/2024 4:47 PM EDT us Matt Daya DO CLINISYNC Final Result Performing Organization Address [facility]/ZIP Co de Phone Number [facility] * (ABNORMAL) [facility] CREATININE (08/12/2024 3:40 PM EDT) CREATININE 0.40(L) 0.55 - 1.02 mg/dL [facility] EGFR-AF VIETNAMESE >60 >=60 mL/min/1.7 3m 2 TBH [facility]H EGFR-NON AF VIETNAMESE >60 >=60 mL/min/1.7 3m 2 [facility] 08/12/2024 3:4 0 PM EDT 08/12/2024 3:42 PM EDT Narrative CLINISYNC - 08/12/2024 4:47 PM EDT us Matt Daya DO [facility] Final [facility] * ALL BUN (08/12/2024 3:40 PM EDT) BLOOD UREA NITROGEN 10.0 7.0 - 18.0 mg/dL [facility] 08/12/2024 3:40 PM EDT 08/12/2024 3:42 PM EDT Narrative CLINISYNC - 08/12/2024 4:47 PM EDT Matt Daya DO CLINISYNC Final Result [facility] * [facility] APTT (08/12/2024 3:40 PM EDT) PARTIAL THROMBOPLASTIN TIME 27.1 22.3 - 36.2 sec TB 08/12/2024 3:40 PM EDT 08/12/2024 3:42 PM EDT Narrative CLINISYNC - 08/12/2024 4:20 PM EDT Matt Daya DO CLINISYNC Final Result Performing Organization Address City[facility]/ZIP Co de Phone Number [facility] * SRMCOH PROTHROMBIN TIME INR W/O COUM (08/12/2024 3:40 PM EDT) PROTHROMBIN TIME 9.8 9.0 - 11.6 sec TB [facility] INR <0.93 [facility] Comment: DESIRED INR: 2.0-3.0 CONDITIONS NOT LISTED BELOW 2.5-3.5 FOR PROSTHETIC HEART VALVE REPLACEMENT 2.5-3.5 RECURRENT THROMBOSIS 08/12/2024 3:40 PM EDT 08/12/2024 3:42 PM EDT Narrative CLINISYNC - 08/12/2024 4:20 PM EDT [employer] DO CLINISYNC Final Result [facility] * (ABNORMAL) ALL CBC WITH AUTO DIFF [...] us Matt Stapleton DO [facility] Final [facility] documented in this encounter Visit Diagnoses Not on filedocumented in this encounter Additional Health Concerns Active Problems Noted Date Diagnosed Date OB Reminders 04/14/2024 documented as of this encounter Care Teams Surgical Clinical Reviewer Relationship Specialty Start Date End Date Juaquin Rae DO [address] [facility] [address] [place] [address] PCP - General Family Medicine 07/15/22 documented as of this encounter
--- OUTSIDE RECORDS SUMMARY | 2024-08-22 10:00 | XMS_ITS | Encounter Summary ---
Author Organization [facility] Address [address] [place] [address] Phone Care Team Providers Care Railroad Car Painter Name Role Phone Trever Lee MD Unavailable [phone] Encounter Details Date Type Department Care Team (Late st Contact Info) Description 10/11/2023 Patient Risk Score [facility] Care Management [address] [place] [phone] Social History Tobacco Use Types Packs/Day Years [...] documented as of this encounter Care Teams Railroad Car Painter Relationship Specialty Start Date End Date Trever Lee MD [address] [facility], [address] [place] [address] Consulting Physician Neurology 02/19/23 documented as of this encounter
--- OUTSIDE RECORDS SUMMARY | 2024-08-22 10:00 | XMS_ITS | Encounter Summary ---
Author Organization [facility] Address [address] [place] [address] Care Team Providers Care Compliance Tester Name Role Phone KeenanJuaquin pittman Amira SORIA Primary Care Provider [phone]- [phone] Encounter Details Date Type Department Care Team (Late st Contact Info) Description 08/02/2024 Abstract [facility] [address] [place] [phone] Matt Stapleton [facility] [address], [place] [address] Social History Tobacco Use Types Packs/Day Years [...] Description 08/31/2024 11:20 AM EDT Routine [facility] [address] [place] [phone] Matt Stapleton DO [facility] [address] [place], [place] [id number] 10/26/2024 4:00 PM EDT Office Visit [facility] [address] Matt Stapleton, DO [address] [facility] [place] [address] documented as of this encounter Goals Goal Patient Goal Type Associated Problems Recent Progress Patient-Stated? Author Reminders Care Plan OB Reminders No Open Scheduling, Background documented as of this encounter Visit Diagnoses Not on filedocumented in this encounter Additional Health Concerns Active Problems Noted Date Diagnosed Date OB Reminders 04/14/2024 documented as of this encounter Care Teams Compliance Tester Relationship Specialty Start Date End Date Juaquin Rae DO [address] [facility] [address] [place] [address] PCP - General Family Medicine 07/15/22 documented as of this encounter
--- OUTSIDE RECORDS SUMMARY | 2024-08-22 10:00 | XMS_ITS | Encounter Summary ---
Author Organization [facility] Address [address] [place] [address] Care Team Providers Care Tooling Mechanic Name Role Phone Juaquin Rae DO Primary Care Provid er Source Comments In the event this information is protected by the Federal Confidentiality of Alcohol and Drug AbusePatient Records regulations: The Federal rules restrict any use of the information to criminally investigate or prosecute any alcohol or drug abuse patient.[facility] Encounter Details Date Type Department Care Team (Late st Contact Info) Description 08/13/2023 Patient Msg Dermatology [place] [address] [place] [address] Roula Hodge APRN.TRAVEL SPECIALIST [address] [place] [address] Appointment Request Social History Tobacco [...] N ot on file 03/28/2022 Data from: https://www.neighborhoodatlas.medicine.[facility].edu/. Last address used for calculation [...] on filedocumented in this encounter Care Teams Tooling Mechanic Relationship Specialty Start Date End Date Juaquin Rae DO [address] [facility] [address] [place] [id number] PCP - General Family Medicine 06/10/16 documented as of this encounter
--- OUTSIDE RECORDS SUMMARY | 2024-08-22 10:01 | XMS_ITS | Encounter Summary ---
Author Organization [facility] tem Address [facility]-[id number] [address] [place] [address] Care Team Providers Care Dried Fruit Washer Name Role Phone Unavailable Primary Care Provider Unavailabl e Encounter Details Date Type Department Care Team (Late st Contact Info) Description 08/09/2024 Telephone Maternal- Medicine at [facility] [address] [place] [address] Noelle Johnston, RN [address] [facility], [address] [place] [address] Social History Tobacco Use Types Packs/Day Years [...]
--- OUTSIDE RECORDS SUMMARY | 2024-08-22 10:01 | XMS_ITS | Encounter Summary ---
Author Organization [facility] Address [address] [place] [address] Phone Care Team Providers Care Manager Of Revenue Name Role Phone Trever Lee MD Unavailable Gina Man DO Unavailable Encounter Details Date Type Department Care Team (Late st Contact Info) Description 11/09/2022 Patient Risk Score [facility] Care Management [address] [facility] [address] [place] [address] Social History Tobacco Use Types [...] filedocumented in this encounter Care Teams Manager Of Revenue Relationship Specialty [place] [address] [facility] [address] [place] [address] PCP - MMO ACO PCP 03/09/23 10/07/23 Trever Lee MD [address] [facility], [address] [place], [place] [phone] Consulting Physician Neurology 02/19/23 documented as of this encounter
--- OUTSIDE RECORDS SUMMARY | 2024-08-22 10:01 | XMS_ITS | Encounter Summary ---
Author Organization [facility] Address [address] [place] [address] Care Team Providers Care Radio Division Captain Name Role Phone Juaquin Rae DO Primary Care Provid er Source Comments In the event this information is protected by the Federal Confidentiality of Alcohol and Drug AbusePatient Records regulations: The Federal rules restrict any use of the information to criminally investigate or prosecute any alcohol or drug abuse patient.[facility] Encounter Details Date Type Department Care Team (Late st Contact Info) Description 06/02/2020 Patient Msg Dermatology [place] [address] [place] [address] Roula Hodge, PRIVATE SECURITY GUARD.PHONOGRAPH CARTRIDGE ASSEMBLER [address] [place] [address] RE: Request an Appointment Social [...] N ot on file 02/13/2020 Data from: https://www.neighborhoodatlas.medicine.[facility].edu/. Last address used for calculation [...] on filedocumented in this encounter Care Teams Radio Division Captain Relationship Specialty Start Date End Date Juaquin Rae DO [address] [place] [address] PCP - General Family Medicine 06/10/16 documented as of this encounter
--- OUTSIDE RECORDS SUMMARY | 2024-08-22 10:01 | XMS_ITS | Encounter Summary ---
Author Organization [facility] tem Address [facility][id number] [address] [place] [address] Care Team Providers Care Development Administrator Name Role Phone Unavailable Primary Care Provider [...]
--- OUTSIDE RECORDS SUMMARY | 2024-08-22 10:01 | XMS_ITS | Encounter Summary ---
Author Organization [facility] Address [address] [place] [address] Phone Care Team Providers Care Broadcast Checker Name Role Phone Rafaela Garrido Primary Care Provider Unavailable Rafaela Garrido Unavailable Unava ilable Trever Lee MD Unavailable Gina Man DO Unavailable Encounter Details Date Type Department Care Team (Late st Contact Info) Description 09/08/2022 Patient Risk Score [facility] Care Management [address] [facility] [address] [place] [address] Social History Tobacco Use Types Packs/Day Years [...] on filedocumented in this encounter Care Teams Broadcast Checker Relationship Specialty Start Date End Date Rafaela Garrido APRN-CNP PCP - General 07/06/18 10/28/22 Rafaela Garrido APRN-CNP Office Address Unavailable as of 08/07/2022 PCP - MMO ACO PCP 03/09/21 10/06/22 [place] [address] [place] [address] PCP - MMO ACO PCP 03/09/23 10/07/23 Trever Lee MD [address] [facility], [address] [place] [address] Consulting Physician Neurology 02/19/23 documented as of this encounter
--- OUTSIDE RECORDS SUMMARY | 2024-08-22 10:01 | XMS_ITS | Encounter Summary ---
Author Organization [facility] Address [address] [place] [address] Phone Care Team Providers Care Communications Media Professor Name Role Phone Rafaela Garrido APRN-FRUIT COORDINATOR Primary Care Provider Unavailable Trever Lee MD Unavailable [phone] Gina Man DO Unavailable Encounter Details Date Type Department Care Team (Late st Contact Info) Description 10/09/2022 Patient Risk Score [facility] Care Management [address] [facility] [address] [place] [phone] Social History Tobacco Use Types Packs/Day Years [...] on filedocumented in this encounter Care Teams Communications Media Professor Relationship Specialty Start Date End Date Rafaela Garrido APRN-CNP PCP - General 07/06/18 10/28/22 [place] [address] [facility] [address] [place] [address] PCP - MMO ACO PCP 03/09/23 10/07/23 Trever Lee MD [address] [facility], [address] [place] [address] Consulting Physician Neurology 02/19/23 documented as of this encounter
--- OUTSIDE RECORDS SUMMARY | 2024-08-22 10:01 | XMS_ITS | Encounter Summary ---
Author Organization [facility] Address [address] [place] [address] Care Team Providers Care Firebrick Layer Helper Name Role Phone Juaquin Rae DO Primary Care Provid er Source Comments In the event this information is protected by the Federal Confidentiality of Alcohol and Drug AbusePatient Records regulations: The Federal rules restrict any use of the information to criminally investigate or prosecute any alcohol or drug abuse patient.[facility] Encounter Details Date Type Department Care Team (Late st Contact Info) Description 04/20/2024 Patient Msg Dermatology [place] [address] [place] [address] Roula Hodge APRN.CHAIRMAN OF THE BOARD [address] [place] [address] Appointment Request Social History Tobacco Use Types Packs/Day Years Used Date Smoking Tobacco: Never Alcohol Use Standard Drinks/Week Comments Yes 0 (1 standard drink = 0.6 oz pur e alcohol) occasional Area Deprivation Index Answer Date Renaldo rded National Score (1-100), lower number is lower ri sk 52 09/01/2023 State Score (1-10), lower number is lower risk 3 09/01/2023 Data from: https://www.neighborhoodatlas.medicine.[facility].edu/. Last address used for calculation [address] [...] on filedocumented in this encounter Care Teams Firebrick Layer Helper Relationship Specialty Start Date End Date Juaquin Rae DO [address] [place] [address] PCP - General Family Medicine 06/10/16 documented as of this encounter
--- OUTSIDE RECORDS SUMMARY | 2024-08-22 10:01 | XMS_ITS | Encounter Summary ---
Author Organization [facility] Address [address] [place] [address] Care Team Providers Care Uptwister Tender Name Role Phone Juaquin Rae DO Primary Care Provid er Source Comments In the event this information is protected by the Federal Confidentiality of Alcohol and Drug AbusePatient Records regulations: The Federal rules restrict any use of the information to criminally investigate or prosecute any alcohol or drug abuse patient.[facility] Encounter Details Date Type Department Care Team (Late st Contact Info) Description 05/24/2024 Patient [facility] -[address] [place] [address] Sobeida Berrios RPh At your next appointment, choose [facility]. Social History Tobacco Use Types Packs/Day Years Used Date Smoking Tobacco: Never Alcohol Use Standard Drinks/Week Comments Yes 0 (1 standard drink = 0.6 oz pur e alcohol) occasional Area Deprivation Index Answer Date Renaldo rded National Score (1-100), lower number is lower ri sk 52 09/01/2023 State Score (1-10), lower number is lower risk 3 09/01/2023 Data from: https://www.neighborhoodatlas.medicine.[facility].edu/. Last address used for calculation [address] [...] on filedocumented in this encounter Care Teams Uptwister Tender Relationship Specialty Start Date End Date Juaquin Rae DO [address] [facility] [address] [place] [address] PCP - General Family Medicine 06/10/16 documented as of this encounter
--- OUTSIDE RECORDS SUMMARY | 2024-08-22 10:01 | XMS_ITS | Encounter Summary ---
Author Organization [facility] Address [address] [place] [address] Care Team Providers Care Associate Product Manager Name Role Phone Juaquin Rae DO Primary Care Provid er Source Comments In the event this information is protected by the Federal Confidentiality of Alcohol and Drug AbusePatient Records regulations: The Federal rules restrict any use of the information to criminally investigate or prosecute any alcohol or drug abuse patient.[facility] Encounter Details Date Type Department Care Team (Late st Contact Info) Description 02/21/2024 Patient Msg Dermatology [place] [address] [place] [address] Roula Hodge APRN.MANAGEMENT INSTRUCTOR [address] [place] [address] Appointment Request Social History [...] is lower risk 3 09/01/2023 Data from: https://www.neighborhoodatlas.medicine.[facility].edu/. Last address used for calculation [...] on filedocumented in this encounter Care Teams Associate Product Manager Relationship Specialty Start Date End Date Juaquin Rae DO [address] [place] [address] PCP - General Family Medicine 06/10/16 documented as of this encounter
--- OUTSIDE RECORDS SUMMARY | 2024-08-22 10:01 | XMS_ITS | Clinical Summary ---
Author Organization [facility] Address [address] [place] [address] Phone Care Team Providers Care Pension Adviser Name Role Phone Trever Lee MD Unavailable [phone] Allergies Active Allergy Reactions Criticality Noted [...] EST) Cholesterol 135 0 - 199 mg/dL [facility] Comment: . AGE DESIRABLE BORDERLINE HIGH [...] prior to Metamizole dosing. HDL 34.0(A) mg/dL [facility] Comment: . AGE VERY LOW LOW NORMAL HIGH 0-19 Y < 35 < 40 40-45 ---- 20-24 Y ---- < 40 >45 ---- >24 Y ---- < 40 40-60 >60 . Cholesterol/HDL Ratio 4.0 [facility] Comment: REF VALUES DESIRABLE < 3.4 HIGH RISK > 5.0 LDL 70 0 - 99 mg/dL [facility] Comment: . NEAR BORD AGE DESIRABLE OPTIMAL HIGH HIGH VERY HIGH 0-19 Y 0 - 109 --- 110-129 >/= 130 ---- 20-24 Y 0 - 119 --- 120-159 >/= 160 ---- >24 Y 0 - 99 100-129 130-159 160-189 >/=190 . VLDL 31 0 - 40 mg/dL [facility] Triglycerides 154(H) 0 - 149 mg/dL [facility] Comment: . AGE DESIRABLE BORDERLINE HIGH [...] EST 04/23/2020 11:14 AM EST Rafaela Garrido ASSIGNMENT AGENT-HOT MILL OPERATOR LAB BLOOD ORDERABLES F inal Result [facility] from Last 3 Months or Most Recently Relevant to Health Maintenance Insurance [facility] Care Teams Pension Adviser Relationship Specialty Start Date End Date Trever Lee MD [address] [facility], [address] [place] [address] Consulting Physician Neurology 02/19/23
--- OUTSIDE RECORDS SUMMARY | 2024-08-22 10:01 | XMS_ITS | Encounter Summary ---
Author Organization [facility] Address [address] [place] [address] Phone Care Team Providers Care Hammerer Name Role Phone Rafaela Garrido APRN-DIGITAL CARTOGRAPHIC TECHNICIAN Primary Care Provider Unavailable Trever Lee MD Unavailable [phone] Gina Man DO Unavailable Encounter Details Date Type Department Care Team (Late st Contact Info) Description 10/16/2022 Scanned Document [facility] [address] [place] [address] Conversion, Onbase Social History Tobacco Use Types [...] on filedocumented in this encounter Care Teams Hammerer Relationship Specialty Start Date End Date Rafaela Garrido APRN-CNP PCP - General 07/06/18 10/28/22 [place] [address] [facility] [address] [place] [address] PCP - MMO ACO PCP 03/09/23 10/07/23 Trever Lee MD [address] [facility], [address] [place] [address] Consulting Physician Neurology 02/19/23 documented as of this encounter
--- OUTSIDE RECORDS SUMMARY | 2024-08-22 10:01 | XMS_ITS | Encounter Summary ---
Author Organization [facility] tem Address [facility]-[id number] [address] [place] [address] Care Team Providers Care Aircraft Structural Fitter Name Role Phone Unavailable Primary Care Provider Unavailabl e Encounter Details Date Type Department Care Team (Late st Contact Info) Description 08/09/2024 Orders Only Maternal- Medicine at [facility] [address] [place] [phone] Bárbara Canas, WILDLIFE BIOLOGY TECHNICIAN-[facility] [address] [place] [address] Insulin controlled gestational diabetes mellitus (GDM) in [...]
--- OUTSIDE RECORDS SUMMARY | 2024-08-22 10:01 | XMS_ITS | Encounter Summary ---
Author Organization [facility] tem Address [id number] [address] [place] [address] Care Team Providers Care Information Management Specialist Name Role Phone Unavailable Primary Care Provider Unavailabl e Encounter Details Date Type Department Care Team (Late st Contact Info) Description 08/09/2024 Orders Only Maternal- Medicine at [facility], [place] [address] [place] [id number] Noelle Johnston, RN [address] [facility], [address] [place] [id number] Insulin controlled gestational diabetes mellitus (GDM) in [...]
[2024-08-22 10:09] VITALS: BP 134/85; PULSE 130
--- OUTSIDE RECORDS SUMMARY | 2024-08-22 10:21 | XMS_ITS | CCD ---
Author Organization [facility] Care Team Providers Care Interior Decorator Name Role Phone Rafaela Arguelol [place] [address], [facility] Unavailable Unavailable Rafaela Arguello Unavailable Unavailable [...] Admitting Unavailable DAYA, DR DRIVER Attending Unavailable DYAA, DR DRIVER Consulting Unavailable REQUEST, DR SHASHANK LISTED Primary Care Unavaila ble DAYA, DR DRIVER Admitting Unavailable DAYA, DR DRIVER Attending Unavailable DAYA, DR DRIVER Consulting Unavailable AGUBOSIM, ARYA Consulting Unavailable BEL BRIECNO Consulting Unavailable GRAZYNA MEZA Consulting Unavailable DAYA, DR DRIVER Admitting Unavailable DAYA, DR DRIVER Attending Unavailable DAYA, DR DRIVER Consulting Unavailable DAYA, DR DRIVER Primary Care Unavailable Danielle Infante Primary Care Provider DO Danielle Infante Primary Care Provider [phone] DO Kp Alvares Attending Provider Hema, Ms. [...] Azael kaye Andersen, LAYNE Avila Attending Provider [phone] KAROLINA MAN Referring Unavailable KAROLINA MAN Primary Care Unavailable KAROLINA MAN Referring Unavailable KAROLINA MAN Primary Care Unavailable MARYANN DAVISON Attending Unava ilDanielle Villalobos DO Primary Care Provider [phone] Matt Stapleton Attending Unavailable Matt Stapleton Admitting Unavailable NO FAMILY, PHYSICIAN Primary Care Unavailable Nathaly, Sewtha M Attending Unavailable Swetha Andersen M Admitting Unavailable Daya DO, Matt Attending Provider Unavailable Primary Care Provider UnavailIGNACIA Quiñones Attending Unavailable DAYA, MATT R Referring Unavailable LUCRETIA VILLAFANA Attending Unavailable DAYA, MATT R Referring Unavailable MERARY WILCOX Attending Unavailable NAKUL, MERARY Referring Unavailable DAYA, MATT Attending Unavailable DAYA, MATT Attending Unavailable BENTLEY FUCHS Referring Unavailable DAYA, MATT Attending Unavailable DAYA, MATT Attending Unavailable DAYA, MATT Referring Unavailable DAYA, MATT Attending Unavailable DAYA, MATT Attending Unavailable DAYA, MATT Attending Unavailable Allergies Allergy Classification Reported Allergen(s) Allergy Type Date of Onset Reaction(s) Facility Cephalosporins (antibiotic) (1 source) loracarbef Drug Allergy [facility] Work Phone: Latex (1 source) natural latex rubber Substance Allergy [facility] Work Phone: NSAIDs (1 source) NSAIDs Drug Allergy [facility] Work Phone: (20 sources) loracarbef; Translations: [loracarbef] Drug Allergy 08-29-19 23 Unknown [id number] Work Phone: (20 sources) natural latex rubber; Translations: [LATEX] Allergy to substance (finding) 08-29-19 [facility] 3 Repository (20 sources) NSAIDs; Translations: [NSAIDs] Allergy to drug (finding) Unknown [id number] Work Phone: (20 sources) Animal dander - Cats Allergy to substance (finding) [id number] Work Phone: (2 sources) Latex Drug allergy (disorder) [facility] Repository (1 source) loracarbef Drug Allergy [facility] Repository (9 sources) NSAIDs; Translations: [NSAIDS (NON-STEROIDAL ANTI-INFLAMMATOR Y DRUG)] Drug allergy (disorder) 06-11-19 [facility] Repository (7 sources) Non-steroidal anti-inflammator y agent Propensity to adverse reactions to drug 06-11-19 Other: See Comments, Other [facility] (11 sources) Latex Propensity to adverse reactions 08-29-19 23 Unknown, Rash 0-[facility] Other (20 sources) Cat Dander; Translations: [CAT DANDER] Allergy to substance 11-29-19 Unknown, Itching [facility] (4 sources) NSAIDS (Non-Steroidal Anti-Inflamma; Translations: [NSAIDS (Non-Steroidal Anti-Inflamma] Allergy to substance 09-05-19 Itching [facility] (3 sources) CAT HAIR STANDARDIZED ALLERGENIC EXTRACT; Translations: [CAT HAIR STANDARDIZED ALLERGENIC EXTRACT] Propensity to adverse reactions to drug (disorder) 11-29-19 Itching [facility] 2 Repository (20 sources) Latex Allergy to substance 08-29-[address] [facility] (20 sources) Non-steroidal anti-inflammator y agent Drug Allergy 06-11-19 Other, Unknown, Itching [facility] (5 sources) Cat Hair Extract Allergy to substance 11-29-[address] [facility] (1 source) Latex Drug allergy (disorder) 09-05-19 [facility] Repository Medications Current Medications Medication Drug Class(es) Dates Sig (Normalized) Sig (Original) Blood Glucose Monitoring Suppl ([facility]-Care Glucometer) w/Device kit (14 sources) Start: 07-12-2024 End: 07-12-2025 Blood Glucose Monitoring Suppl (D-Care Glucometer) w/Device kit Indications: Gestational diabetes mellitus (GDM), antepartum, gestational diabetes method of control unspecified ([facility]) , Elevated glucose tolerance test 1 kit Daily Use four times daily to check FSBS. In the morning prior to breakfast & 1 hour after each meal for a total of 4times daily. 1 kit 07/12/2024 07/12/2025 Active Start: 07-12-2024 End: 07-12-2025 [address] Monitoring Sup pl (D-Care Glucometer) w/Device kit Indications: Gestational diabetes [...] Start: 10-08-2021 take 1 tablet by didi once daily buPROPion HCl ER (XL) 300 [...] Start: 09-05-2023 take 1 capsule by mo [facility] twice daily Cephalexin 500 mg capsule Active [...] 1 tablet by didi th once daily. 3 ml insulin glargine 100 unt/ml pen injector (5 sources) Insulin Analog Start: 08-09-2024 Lantus SoloStar 100 UNIT/ML pen Inject 14 Units under the skin 08/09/2024 Active Start: 08-09-2024 insulin glargi ne (LANTUS SOLOSTAR U-100 INSULIN) 100 unit/mL (3 mL) insulin pen Indications: Insulin controlled gestational diabetes mellitus (GDM) in third trimester Inject 10 units, subq, every evening. Prime with 2 units before each injection. 15 mL 2 08/09/2024 Active insulin isophane, human 100 unt/ml injectable suspension (12 sources) Start: 08-02-2024 End: 09-01-2024 inject 5 [IU] [...] insulin, regular, human 30 unt/ml injectable suspension (12 sources) Insulin Start: 08-02-2024 End: 09-01-2024 inject [...] Active isopropyl alcohol 0.7 ml/ml medicated pad (14 sources) Start: 07-12-2024 Alcohol Swabs (Alcohol Prep Pad) 70 % pads Indications: Gestational diabetes mellitus (GDM), antepartum, gestational diabetes method of control unspecified ([facility]) , Elevated glucose tolerance test Apply 1 [...] polysaccharide iron complex 391 mg oral capsule (17 sources) Start: 07-01-2024 End: 07-01-2025 take 1 [...] 0 Active metoclopramide 10 mg oral tablet (15 sources) Dopamine-2 Receptor Antagonist Start: 04-14-2024 End: [...] Active ondansetron 4 mg disintegrating oral tablet (12 sources) Serotonin-3 Receptor Antagonist Start: 02-12-2024 End: [...] tolerance complicating ; childbirth; or the puerperium (8 sources) Gestational diabetes mellitus; Translations: [Gestational diabetes [...] adult] Chronic Other and delivery including normal (14 sources) ; Translations: [Encounter for supervision of [...] [31 weeks gestation of ] 08-02-2024 Episodic Residual codes; unclassified (2 sources) Gestation period, 33 weeks; Translations: [33 weeks gestation of ] 08-17-2024 Episodic Spondylosis; intervertebral disc disorders; other back problems (20 sources) Neck pain; Translations: [Cervicalgia] Episodic Unclassified (20 sources) OB Reminders Onset: 04-14-2024 04-14-2024 Unclassified [...] Test Name Value Interpretation Reference Range Facility US OB BPP W NON-STRESS on 08-19-[address] [address] Ultrasound Report Signed Patient: MICHAEL WELLER MR#: [id number] : 1985 Acct:[id number] Age/Sex: 38 / F ADM Date: 08/19/24 Loc: US Attending Dr: Matt Stapleton D.O. Ordering Physician: Matt Stapleton D.O. Date of Service: 08/19/24 Procedure(s): US OB BPP w non-stress Accession Number(s): [id number] cc: Matt Stapleton D.O.; Physician,Non-Staff [facility] The [address] [address] Patient Name: MICHAEL WELLER MRN: [facility]:[id number] date: 1985 Sex: F Assigned Patient Location: [facility] Current Patient Location: Accession/Order Number: [id number] Exam Date: 08/19/2024 18:44 Report Date: 08/19/2024 18:46 At the request of: MATT STAPLETON DO [...] Villegas M.D. 08/19/2024 6:46 PM Dictation Location: [place] [address] Electronically authenticated by: [id number] Y Date: 08/19/2024 18:46 Dictated By: Roddy Villegas D.O. Signed By: 08/19/241848 DD/ 45 TD/TT: Legal Project Manager: [facility] Radiology, Radiologist, MD - 08/19/2024 The [place] [id number] Ultrasound Report Signed Patient: MICHAEL WELLER MR#: [id number] : 1985 Acct:[id number] Age/Sex: 38 / F ADM Date: 08/19/24 Loc: US Attending Dr: Matt Stapleton D.O. Ordering Physician: Matt Stapleton D.O. Date of Service: 08/19/24 Procedure(s): US OB BPP w non-stress Accession Number(s): [id number] cc: Matt Stapleton D.O.; Physician,Non-Staff [facility] [address] Patient Name: MICHAEL WELLER MRN: [facility]:[id number] date: 1985 Sex: F Assigned Patient Location: [facility] Current Patient Location: Accession/Order Number: [id number] Exam Date: 08/19/2024 18:44 Report Date: 08/19/2024 18:46 At the request of: MATT STAPLETON DO [...] Villegas M.D. 08/19/2024 6:46 PM Dictation Location: [place] [address] Electronically authenticated by: [id number] Y Date: 08/19/2024 18:46 Dictated By: Roddy Villegas D.O. Signed By: 08/19/241848 DD/ 45 TD/TT: Legal Project Manager: [facility] Radiology Study observation (narrative) [facility] US OB BPP W NON-STRESS Ordered By: Radiologist Radiology on 08-19-2024 [facility] Work Phone: TB UA (CLEAN/CATCH) ACCOUNT SUPERVISOR/TODD RO IF IND.on 08-15-2024 BILIRUBIN URINE Negative NEGATIVE [facility] Healthcare BLOOD URINE Negative NEGATIVE [facility] Clarity (U) SL CLOUDY CLEAR [facility] Color (U) YELLOW YELLOW [facility] GLUCOSE URINE UA 100 mg/dL Abnormal NEGATIVE [facility] Interpretation and review of laboratory results Abnormal [facility] Ketones Ql (U) TRACE Abnormal NEGATIVE mg/dL [facility] Leukocyte esterase Test strip Ql (U) Negative NEGATIVE [facility] NITRITE URINE Negative NEGATIVE [facility] pH (U) 6.0 [pH] 5.0 - 9.0 [facility] PROTEIN URINE TRACE NEG/TRACE mg/dL [facility] SPECIFIC GRAVITY URINE >=1.030 Abnormal 1.005 - 1.025 [facility] URINE MICROSCOPIC INDICATED NO [facility] UROBILINOGEN URINE 1.0 EU/dL 0.2 - 1.0 EU/dL [facility] CLINIS[facility] TBH TOTAL PROTEIN 24 HOUR UR INEon 08-14-2024 Interpretation and review of laboratory results Abnormal [facility] Protein (U) [Mass/Vol] 20.8 mg/dL High NINF - 11.9 mg/dL [facility] TBH TOTAL PROTEIN 24 HOUR URINE 322.[address] [facility] TOTAL VOLUME 24 HOUR URINE 1550 mL/24hr [facility] START TIME:0754 END TIME:744 [facility]ME:[facility] WITH AUTO DIFFon BASOPHILS ABSOLUTE AUTO 0 [facility] Basophils/100 WBC (Bld) 0.2 % 0.2 - 2.0 % [facility] Eosinophils/100 WBC (Bld) 0.1 % Low 0.9 - 7.0 % [facility] Erythrocyte distribution width (RBC) [Ratio] 14.9 % 11.0 - 15.0 % [facility] Hematocrit (Bld) [Volume fraction] 32.6 % Low 36.0 - 48.0 % [facility] Hemoglobin (Bld) [Mass/Vol] 10.6 g/dL Low 12.0 - 16.0 g/dL [facility] IMMATURE GRANULOCYTES ABS AUTO 0.[address] [facility] Immature granulocytes/100 WBC (Bld) 0.8 % High 0.0 - 0.5 % [facility] Interpretation and review of laboratory results Abnormal [facility] LYMPHOCYTES ABSOLUTE AUTO 1.4 [facility] Lymphocytes/100 WBC (Bld) 16.3 % Low 20.5 - 60.0 % [facility] MCH (RBC) [Entitic mass] 27.1 pg 26.7 - 34.[address] [facility] MCHC (RBC) [Mass/Vol] 32.5 g/dL 29.9 - 35.2 g/dL [facility] MCV (RBC) [Entitic vol] 83.4 fL 81.0 - 99.[address] [facility] MONOCYTES ABSOLUTE AUTO 0.7 [facility] Monocytes/100 WBC (Bld) 7.9 % 1.7 - 12.0 % [facility] NEUTROPHILS ABSOLUTE AUTO 6.3 [facility] Healthcare Neutrophils/100 WBC (Bld) 74.7 % 43.0 - 75.0 % [facility] Platelet mean volume (Bld) [Entitic vol] 12.1 fL 9.5 - 13.[address] [facility] TBH EO # 0 [facility] TB[facility] PLT [address] [facility] TB[facility] RBC 3.[address] [facility] TBH WBC 8.5 [facility] US OB BPP W NON-STRESS on 08-12-2024 [place] [address] Ultrasound Report Signed Patient: MICHAEL WELLER MR#: [id number] : 1985 Acct:[id number] Age/Sex: 38 / F ADM Date: 08/12/24 Loc: [facility] 254-[address]: Matt Stapleton D.O. Ordering Physician: Matt Stapleton D.O. Date of Service: 08/12/24 Procedure(s): US OB BPP w non-stress Accession Number(s): [id number] cc: Matt Stapleton D.O.; Physician,Non-Staff [facility] The [place] [address] Patient Name: MICHAEL WELLER MRN: [facility]:[id number] date: 1985 Sex: F Assigned Patient Location: [facility] Current Patient Location: [facility] Accession/Order Number: [id number] Exam Date: 08/12/2024 16:37 Report Date: 08/12/2024 [...] Villegas M.D. 08/12/2024 4:38 PM Dictation Location: [place] Electronically authenticated by: [id number] Y Date: 08/12/2024 16:38 Dictated By: Roddy Villegas D.O. Signed By: 08/12/24 1641 DD/ 1638 TD/TT: Legal Project Manager: [facility] Radiology, Radiologist, MD - 08/12/2024 [place] [address] Ultrasound Report Signed Patient: MICHAEL WELLER MR#: [id number] : 1985 Acct:[id number] Age/Sex: 38 / F ADM Date: 08/12/24 Loc: [facility] 254-[address]: Matt Stapleton D.O. Ordering Physician: Matt Stapleton D.O. Date of Service: 08/12/24 Procedure(s): US OB BPP w non-stress Accession Number(s): [id number] cc: Matt Stapleton D.O.; Physician,Non-Staff [facility] The [place] [address] Patient Name: MICHAEL WELLER MRN: [facility]:[id number] date: 1985 Sex: F Assigned Patient Location: [facility] Current Patient Location: [facility] Accession/Order Number: [id number] Exam Date: 08/12/2024 16:37 Report Date: 08/12/2024 [...] Villegas M.D. 08/12/2024 4:38 PM Dictation Location: [place] Electronically authenticated by: [id number] Y Date: 08/12/2024 16:38 Dictated By: Roddy Villegas D.O. Signed By: 08/12/24 1641 DD/ 1638 TD/TT: Legal Project Manager: [facility] Radiology Study observation (narrative) [facility] US OB BPP W NON-STRESS Ordered By: Radiologist Radiology on 08-12-2024 [facility] Work Phone: US OB FOLLOW UP TRANSABDOMIN [...] II, MD, PHD at 11-Aug-2024 08:51:27 AM [facility] Normal Not Available Comment on above: Order Comment: US OB SCAN FOR GROWTH Estimated Date of Delivery: 10/01/24 Gestational Age as of 07/12/2024: 28w3d US OB BPP W NON-STRESS on 08-06-2024 [place] [address] Ultrasound Report Signed Patient: MICHAEL WELLER MR#: [id number] : 1985 Acct:[id number] Age/Sex: 38 / F ADM Date: 08/05/24 Loc: US Attending Dr: Matt Stapleton D.O. Ordering Physician: Matt Stapleton D.O. Date of Service: 08/05/24 Procedure(s): US OB BPP w non-stress Accession Number(s): [id number] cc: Matt Stapleton D.O.; Physician,Non-Staff [facility] The [place] [id number] Patient Name: MICHAEL WELLER MRN: [facility]:[id number] date: 1985 Sex: F Assigned Patient Location: US Current Patient Location: Accession/Order Number: [id number] Exam Date: 08/06/2024 12:11 Report Date: 08/06/2024 [...] Villegas M.D. 08/06/2024 12:12 PM Dictation Location: [place] [address] Electronically authenticated by: [id number] Y Date: 08/06/2024 12:12 Dictated By: Roddy Villegas D.O. Signed By: 08/06/24 1214 DD/ 1212 TD/TT: Legal Project Manager: [facility] Radiology, Radiologist, MD - 08/06/2024 The [place] [id number] Ultrasound Report Signed Patient: MICHAEL WELLER MR#: [id number] : 1985 Acct:[id number] Age/Sex: 38 / F ADM Date: 08/05/24 Loc: US Attending Dr: Matt Stapleton D.O. Ordering Physician: Matt Stapleton D.O. Date of Service: 08/05/24 Procedure(s): US OB BPP w non-stress Accession Number(s): [id number] cc: Matt Stapleton D.O.; Physician,Non-Staff [facility] [place] [address] Patient Name: MICHAEL WELLER MRN: [facility]:[id number] date: 1985 Sex: F Assigned Patient Location: US Current Patient Location: Accession/Order Number: [id number] Exam Date: 08/06/2024 12:11 Report Date: 08/06/2024 [...] Adequate ultrasound biophysical profile Impression dictated by: Rodyd Villegas M.D. 08/06/2024 12:12 PM Dictation Location: [place] [address] Electronically authenticated by: [id number] Y Date: 08/06/2024 12:12 Dictated By: Roddy Villegas D.O. Signed By: 08/06/24 1214 DD/ 1212 TD/TT: Legal Project Manager: [facility] Radiology Study observation (narrative) [facility] US OB BPP W NON-STRESS Ordered By: Radiologist Radiology on 08-06-2024 [facility] Work Phone: Urinalysis macro (dipstick) panel (U)on 08-02-2024 Bilirubin, UA Negative Negative - 4(70) +++ mg/dL [facility] Blood, UA Negative Negative - 50 Shaun/mcL [facility] Clarity, UA Cloudy [facility] Color, UA Straw [facility] Glucose, UA Negative Negative - 1999(110) ++++ mg/dL [facility] Interpretation and review of laboratory results Abnormal [facility] Ketones, UA Positive Negative - 160(16) ++++ mg/dL [facility] Leukocytes, UA Negative Negative - 500+++ Denys/mcL [facility] Nitrite, UA Negative Negative - Positive [facility] pH, UA 6 5 - 9 [facility] Protein, UA Trace Negative - 1999(20) ++++ mg/dL [facility] Comment on above: 15 Spec Grav, UA 1.025 1 - 1.03 [facility] Urobilinogen, UA 0.2 0.2 - 12 mg/dL [facility] US OB FOLLOW UP TRANSABDOMIN AL APPROACHon [...] II, MD, PHD at 13-Jul-2024 08:42:46 AM [facility] Normal Not Available Comment on above: Order Comment: US OB SCAN FOR GROWTH Estimated Date of Delivery: 10/01/24 Gestational Age as of 06/20/2024: 25w2d Urinalysis macro (dipstick) panel (U)on 07-12-2024 Bilirubin, UA Negative Negative - 4(70) +++ mg/dL [facility] Blood, UA Negative Negative - 50 Shaun/mcL [facility] Clarity, UA Clear [facility] Color, UA Yellow [facility] Glucose, UA Positive Negative - 1999(110) ++++ mg/dL [facility] Comment on above: 100 Interpretation and review of laboratory results Abnormal [facility] Ketones, UA Negative Negative - 160(16) ++++ mg/dL [facility] Leukocytes, UA Positive Negative - 500+++ Denys/mcL [facility] Comment on above: small Nitrite, UA Negative Negative - Positive [facility] pH, UA 6 5 - 9 [facility] Protein, UA Positive Negative - 2000(20) ++++ mg/dL [facility] Comment on above: 30 Spec Grav, UA 1.03 1 - 1.03 [facility] Urobilinogen, UA 0.2 0.2 - 12 mg/dL [facility] ALL CBC WITH AUTO DIFFon BASOPHILS ABSOLUTE AUTO 0 [facility] Basophils/100 WBC (Bld) 0.2 % 0.2 - 2.0 % [facility] Eosinophils/100 WBC (Bld) 0 % Low 0.9 - 7.0 % [facility] Erythrocyte distribution width (RBC) [Ratio] 14.1 % 11.0 - 15.0 % [facility] Hematocrit (Bld) [Volume fraction] 32.1 % Low 36.0 - 48.0 % [facility] Hemoglobin (Bld) [Mass/Vol] 10.3 g/dL Low 12.0 - 16.0 g/dL [facility] IMMATURE GRANULOCYTES ABS AUTO 0.[address] [facility] Immature granulocytes/100 WBC (Bld) 0.7 % High 0.0 - 0.5 % [facility] Interpretation and review of laboratory results Abnormal [facility] LYMPHOCYTES ABSOLUTE AUTO 1.5 [facility] Lymphocytes/100 WBC (Bld) 16.1 % Low 20.5 - 60.0 % [facility] MCH (RBC) [Entitic mass] 27.8 pg 26.7 - 34.[address] [facility] MCHC (RBC) [Mass/Vol] 32.1 g/dL 29.9 - 35.2 g/dL [facility] MCV (RBC) [Entitic vol] 86.5 fL 81.0 - 99.[address] [facility] MONOCYTES ABSOLUTE AUTO 0.6 [facility] Monocytes/100 WBC (Bld) 6.2 % 1.7 - 12.0 % [facility] NEUTROPHILS ABSOLUTE AUTO 7.[address] [facility] Neutrophils/100 WBC (Bld) 76.8 % High 43.0 - 75.0 % [facility] Platelet mean volume (Bld) [Entitic vol] 12.2 fL 9.5 - 13.[address] [facility] TBH EO # 0 [facility] TB PLT 152 [facility] RBC 3.71 Low [facility] WBC 9.2 [facility] No Panel Informationon 06-30 [facility] Platelet counton 06-30-2024 Platelets (Bld) [#/Vol] 152 10*3/uL [facility] Urinalysis macro (dipstick) panel (U)on 06-20-2024 Bilirubin, UA Negative Negative - 4(70) +++ mg/dL [facility] Blood, UA Negative Negative - 50 Shaun/mcL [facility] Clarity, UA Clear [facility] Color, UA Yellow [facility] Glucose, UA Positive Negative - 1999(110) ++++ mg/dL [facility] Comment on above: 100mg/dL Interpretation and review of laboratory results Abnormal [facility] Ketones, UA Negative Negative - 160(16) ++++ mg/dL [facility] Leukocytes, UA Positive Negative - 500+++ Denys/mcL [facility] Comment on above: small Nitrite, UA Negative Negative - Positive [facility] pH, UA 6 5 - 9 [facility] Protein, UA Positive Negative - 1999(20) ++++ mg/dL [facility] Comment on above: 30mg/dL Spec Grav, UA 1.03 1 - 1.03 [facility] Urobilinogen, UA 0.2 0.2 - 12 mg/dL [facility] US OB 14+ WEEKS ANATOMY SCAN on [...] II, MD, PHD at 24-May-2024 12:33:10 AM [facility] Normal Not Available Comment on above: Order Comment: US OB ANATOMY SINGLE W US OB CERVICAL LENGTH Estimated Date of Delivery: 10/01/24 Gestational Age as of 04/14/2024: 15w5d AFP, SERUM, OPEN SPINA BIFID Aon 05-06-[address] [facility] AFP VALUE 65.1 ng/mL . [facility] COMMENT: Comment . [facility] Comment on above: Annalee Akhtar , Ph.D., [facility] Director References: Available Upon Request. Multiples Of Median Cutoffs For AFP Elevations George 2.5 Black 2.8 IDD 2.0 Twins 4.5 Abbreviation Definitions IDD - Insulin Dep Diabetes OSBR - Open Spina Bifida Risk For further inquiries contact [facility] [facility] at [phone]. This test was developed and its performance characteristics determined by [employer]. It has not been cleared or approved by the Food and Drug Administration. Performed at: [facility] [place], [place] [id number] Journeyman Powerhouse Operator: Yaneli Sandoval [facility], Phone: [phone] GEST. AGE ON COLLECTION DATE 18.[address] [facility] GESTAT. AGE BASED ON Ultrasound . [facility] Comment on above: 15.7 on 04/14/2024 Recalculations are not recommended when gestational dating by LMP and ultrasound are within 10 days. INSULIN DEP DIABETES No . [facility] INTERPRETATION Comment . [facility] Comment on above: Interpretation: Scre en Negative [...] Customer Services to discuss available options. The [employer] recommends amniocentesis be offered to women age 35 and older. MATERNAL AGE [age] AMALIA 38[address] [facility] MULTIPLE GESTATION No . [facility] OSBR RISK [address] [place] [address] [facility] RACE . [facility] RESULTS Report . [facility] TEST RESULTS: Negative . [facility] WEIGHT [address] [facility] N N ULTRASOUND [id number] 5 15 N 1 216 N N N N N White/ CLINISYNC [facility] Urinalysis macro (dipstick) panel (U)on 04-14-2024 Bilirubin, UA Negative Negative - 4(70) +++ mg/dL [facility] Blood, UA Positive Negative - 50 Shaun/mcL [facility] Comment on above: trace-intact Clarity, UA Clear [facility] Color, UA Yellow [facility] Glucose, UA Positive Negative - 1999(110) ++++ mg/dL [facility] Comment on above: 100 Interpretation and review of laboratory results Abnormal [facility] Ketones, UA Negative Negative - 160(16) ++++ mg/dL [facility] Leukocytes, UA Trace Negative - 500+++ Denys/mcL [facility] Nitrite, UA Negative Negative - Positive [facility] pH, UA 5.5 5 - 9 [facility] Protein, UA Negative Negative - 1999(20) ++++ mg/dL [facility] Spec Grav, UA 1.025 1 - 1.03 [facility] Urobilinogen, UA 0.2 0.2 - 12 mg/dL [facility] Urinalysis macro (dipstick) panel (U)on 03-16-2024 Bilirubin, UA Negative Negative - 4(70) +++ mg/dL [facility] Blood, UA Negative Negative - 50 Shaun/mcL [facility] Clarity, UA Clear [facility] Color, UA Yellow [facility] Glucose, UA Negative Negative - 1999(110) ++++ mg/dL [facility] Interpretation and review of laboratory results Normal [facility] Ketones, UA Negative Negative - 160(16) ++++ mg/dL [facility] Leukocytes, UA Negative Negative - 500+++ Denys/mcL [facility] Nitrite, UA Negative Negative - Positive [facility] pH, UA 5.5 5 - 9 [facility] Protein, UA Negative Negative - 1999(20) ++++ mg/dL [facility] Spec Grav, UA 1.025 1 - 1.03 [facility] Urobilinogen, UA 1.0 0.2 - 12 mg/dL [facility] CBC without diffon Hematocrit (Bld) [Volume fraction] 38.7 % [facility] Hemoglobin (Bld) [Mass/Vol] 12.6 g/dL [facility] Platelets (Bld) [#/Vol] 200 10*3/uL [facility] Rbc Mcv (Fl) By Automated Count 85.1 [facility] Drug Screen, Urineon 024 Amphetamine/Methamphe tamine Negative [facility] Barbiturates Negative [facility] Benzodiazepines Negative [facility] Cocaine Metabolite Negative [facility] Methadone Negative [facility] Opiates Negative [facility] Oxycodone Negative [facility] Phencyclidine Negative [facility] Thc Marijuana, Urine Negative [facility] HBV surface Ag IA Qlon 03-08 Hepatitis B Surface Antigen Negative [facility] HCV Ab IA Qlon 03-08-2024 HCV Ab Ql (S) Negative [facility] HIV 1+2 Ab+HIV1 p24 Ag IA Ql on 03-08-2024 HIV 1&2 AB/AG Non-Reactive [facility] MLR HEMOGLOBIN A1Con 024 Glucose [Mass/Vol] 105 mg/dL [facility] HbA1c (Bld) [Mass fraction] 5.3 % 4.5 - 6.2 % [facility] Comment on above: ADA RECOMMENDED LIMI T 4.0 - 6.0 ADA THERAPEUTIC TARGET < 7.0 ACTION SUGGESTED > 7.0 [facility] No Panel Informationon 03-08 [facility] Rubella IGG immune statuson 03-08-2024 Rubella immune IgG IMMUNE [facility] T. pallidum IgG+IgM IA Ql (S )on 03-08-2024 Syphilis Non-Reactive [facility] Type and screenon 03-08-2024 Abo/Rh(D) Positive [facility] Urine Cultureon 03-08-2024 Bacteria identified Cx Nom (U) 75,000 colonies/ml mixed bacterial skin contaminants 2 Days PERFORMED BY: [place] [address] PATHOLOGIST COKE INSPECTOR LASHONDA HARMON M.D. Normal [facility] Comment on above: Performed By: #### C UU #### [address] HCG ( test) Ql (U)o n 02-16-2024 Interpretation and review of laboratory results Abnormal [facility] Preg Test, Ur Positive Negative [facility] Urinalysis macro (dipstick) panel (U)on 02-16-2024 Bilirubin, UA Negative Negative - 4(70) +++ mg/dL [facility] Blood, UA Negative Negative - 50 Shaun/mcL [facility] Clarity, UA Clear [facility] Color, UA Yellow [facility] Glucose, UA Negative Negative - 1999(110) ++++ mg/dL [facility] Interpretation and review of laboratory results Normal [facility] Ketones, UA Negative Negative - 160(16) ++++ mg/dL [facility] Leukocytes, UA Negative Negative - 500+++ Denys/mcL [facility] Nitrite, UA Negative Negative - Positive [facility] pH, UA 6.5 5 - 9 [facility] Protein, UA Negative Negative - 1999(20) ++++ mg/dL [facility] Spec Grav, UA 1.02 1 - 1.03 [facility] Urobilinogen, UA 1.0 0.2 - 12 mg/dL [facility] TB PREG QUANT HCGon 024 HCG QUANTITATIVE 29574 mIU/mL [facility] Comment on above: 5-50 0.2-1 WEEK 50-500 1-2 WEEKS 100-5,000 2-3 WEEKS 500-10,000 3-4 WEEKS 1,000-50,000 4-5 WEEKS 10,000-100,000 5-6 WEEKS 15,000-200,000 6-8 WEEKS 10,000-100,000 2-3 [facility] HCGon 024 HCG QUANTITATIVE 5650 mIU/mL [facility] Comment on above: 5-50 0.2-1 WEEK 50-500 1-2 WEEKS 100-5,000 2-3 WEEKS 500-10,000 3-4 WEEKS 1,000-50,000 4-5 WEEKS 10,000-100,000 5-6 WEEKS 15,000-200,000 6-8 WEEKS 10,000-100,000 2[facility] ( test) Ql (U)o n 01-05-2024 Interpretation and review of laboratory results Normal [facility] Work Phone: Preg Test, Ur Negative Negative [facility] Work Phone: [facility] Work Phone: POCT UA Automated manually r esultedon 01-05-2024 Appearance (U) Cloudy Abnormal Clear [facility] Work Phone: Glucose Test strip (U) [Mass/Vol] Negative NEGATIVE mg/dl [facility] Work Phone: Hemoglobin Ql (U) Negative NEGATIVE [facility] Work Phone: Interpretation and review of laboratory results Abnormal [facility] Work Phone: Leukocyte esterase Test strip Ql (U) SMALL (1+) Abnormal NEGATIVE [facility] Work Phone: Nitrite Ql (U) Positive Abnormal NEGATIVE [facility] Work Phone: pH (U) 7.5 [pH] No Reference Range Established [facility] Work Phone: POC Bilirubin, Urine Negative NEGATIVE [facility] Work Phone: POC Color, Urine Yellow Straw, Amelia ow, Light-Yellow [facility] Work Phone: POC Ketones, Urine Negative NEGATIVE mg/dl [facility]: POC Protein, Urine Negative NEGATIVE, 30 (1+) mg/dl [facility] Work Phone: POC Specific Powell, Urine 1.010 1.005 - 1.035 [facility] Work Phone: POC Urobilinogen, Urine 0.2 0.2, 1.0 EU/DL [facility] Work Phone: [facility] Work Phone: IGP,APTIMA HPV,AGE GDLNon AGE GDLN ACOG TESTING Note . [facility] Comment on above: TESTS RESULT FLAG UN ITS REF RANGE LAB Clinician Provided Cytology Information Source.............Cervix;Endocervix No. of containers..01 ThinPrep Vial Age Emily VARELA Katherin... 32 FLAG LEGEND: L-Low Normal,H-High Normal,LL-Alert Low,HH-Alert High <-Panic Low,>-Panic High,A-Abnormal,AA-Critical Abnormal Performed at: 01 =[address] [address] Lacy Perez MD, HPV APTIMA Negative Negative [facility] Comment on above: This nucleic acid am plification test detects fourteen high- risk HPV types (16,18,31,33,35,39,45,51,52,56,58,59,66,68) without differentiation. Performed at: =[address] [id number] Journeyman Powerhouse Operator: Lacy Perez MD, Phone: [phone] Performed at: - [address] [id number] Journeyman Powerhouse Operator: Lacy Perez MD, Phone: [phone] IGP, APTIMA HPV, RFX 16/18,[address] [facility] Comment on above: TESTS RESULT FLAG UN ITS REF RANGE LAB DIAGNOSIS: 02 NEGATIVE FOR INTRAEPITHELIAL LESION OR MALIGNANCY. Specimen adequacy: 02 Satisfactory for evaluation. Endocervical and/or squamous metaplastic cells (endocervical component) are present. Performed by: 02 Maryse Tang Singe Machine Operator (ASCP) . 02 Note: Note 02 The [...] <-Panic Low,>-Panic High,A-Abnormal,AA-Critical Abnormal Performed at: [address] [address] Layc Perez MD, BRUSH-SPATULA CERVIX ENDOCERVIX [facility] Urine Cultureon 09-05-2023 Bacteria identified Cx Nom (U) <9,000 colonies/ml mixed bacterial skin contaminants 2 Days PERFORMED BY: [place] [address] PATHOLOGIST COKE INSPECTOR DAVID CHILD M.D. Normal [facility] Comment on above: Performed By: #### C UU #### [address] CNOVon 09-01-2023 CNOV Office Visit (AMDERM ) MICHAEL WELLER ([id number]) 1985 F Date Time Provider Department 09/01/23 11:30 AM ROULA BLEDSOE AMDERM During your visit today, we recorded the following information about you: Roula Bledsoe APRN.[employer] 09/01/2023 11:42 AM Signed SKIN EXAM ESTABLISHED [...] Past Histories independently gathered by the clinical respiratory support technician and the remaining scribed note [...] Date Reviewed: 09/01/2023 Reviewed by: Roula Bledsoe APRN.[employer] - Fully Assessed Reason for Visit: Full [...] - dexmethylphenidate (more content not included)... Normal [facility] Drugs of abuse screen W Refl ex confirm panel (U)on 02-19-2023 Amphetamines Screen Ql (U) Negative Normal Presumptive Negative [facility] Comment on above: Order Comment: [...] By: #### 8 7428-9 #### ALEJANDRO RAMOS ([id number]) [facility] (EM) [address] [place] [address] Barbiturates Screen Ql (U) Negative Normal Presumptive Negative [facility] Comment on above: Order Comment: [...] By: #### 8 7428-9 #### ALEJANDRO RAMOS ([id number]) [facility] ([facility]) [address] [place] [address] Benzodiazepines Ql (U) Negative Normal Presumptive Negative [facility] Comment on above: Order Comment: [...] By: #### 8 7428-9 #### ALEJANDRO RAMOS ([id number]) [facility] (EM) [address] [place] [address] Benzoylecgonine Screen Ql (U) Negative Normal Presumptive Negative [facility] Comment on above: Order Comment: [...] By: #### 8 7428-9 #### ALEJANDRO RAMOS ([id number]) [facility] ([facility]) [address] [place] [address] Cannabinoids Screen Ql (U) Negative Normal Presumptive Negative [facility] Comment on above: Order Comment: [...] By: #### 8 7428-9 #### ALEJANDRO RAMOS ([id number]) [facility] ([facility]) [address] [place] [address] fentaNYL+Norfentanyl Screen Ql (U) Negative Normal Presumptive Negative [facility] Comment on above: Order Comment: [...] By: #### 8 7428-9 #### ALEJANDRO RAMOS ([id number]) [facility] ([facility]) [address] [place] [address] Opiates Screen Ql (U) Negative Normal Presum ptive Negative [facility] Comment on above: Order Comment: [...] By: #### 8 7428-9 #### ALEJANDRO RAMOS ([id number]) [facility] (EM) [address] [place], [place] [id number] oxyCODONE+oxyMORphone Screen Ql (U) Negative Normal Presumptive Negative [facility] Comment on above: Order Comment: [...] By: #### 8 7428-9 #### ALEJANDRO RAMOS ([id number]) [facility] (EM) [address] [place] [address] Phencyclidine Ql (U) Negative Normal Presump tive Negative [facility] Comment on above: Order Comment: [...] By: #### 8 7428-9 #### ALEJANDRO RAMOS ([id number]) [facility] ([facility]) [address] [place], [place] [id number] BI MAMMO BILATERAL DIAGNOSTI C TOMOSYNTHESISon 12-19-2022 BI MAMMO BILATERAL DIAGNOSTIC TOMOSYNTHESIS Interpreted By: Mohan Romano and Jakob Wei STUDY: BI MAMMO BILATERAL DIAGNOSTIC TOMOSYNTHESIS; BI US BREAST LIMITED LEFT; 12/19/2022 9:42 am; 12/19/2022 10:52 am ACCESSION NUMBER(S): [id number]; [id number] ORDERING CLINICIAN: KAROLINA MAN INDICATION: Annual screening [...] axillary abnormality was performed by a registered can vacuum tester. No sonographic abnormalities are seen in the [...] any future breast imaging appointments, please call [phone] ([phone]). MACRO: None Signed by: Mohan Romano 12/19/2022 11:32 AM Dictation workstation: [id number] [facility] BI US BREAST LIMITED LEFTon 12-19-2022 BI US BREAST LIMITED LEFT Interpreted By: Mohan Romano, and Jakob Wei STUDY: BI MAMMO BILATERAL DIAGNOSTIC TOMOSYNTHESIS; BI US BREAST LIMITED LEFT; 12/19/2022 9:42 am; 12/19/2022 10:52 am ACCESSION NUMBER(S): [id number]; [id number] ORDERING CLINICIAN: KAROLINA MAN INDICATION: Annual screening [...] axillary abnormality was performed by a registered can vacuum tester. No sonographic abnormalities are seen in the [...] any future breast imaging appointments, please call [phone] ([phone]). MACRO: None Signed by: Mohan Romano 12/19/2022 11:32 AM Dictation workstation: [id number] [facility] DBT Breast - bilateral diagn osticon 12-19-2022 Radiology Study observation (narrative) [facility] Work Phone: No Panel Informationon 12-19 1. [...] any future breast imaging appointments, please call [phone] ([phone]). MACRO: None Signed by: Mohan Romano 12/19/2022 11:32 AM Dictation workstation: [id number] [facility] Interpreted By: Mohan Romano, and Jakob Wei STUDY: BI MAMMO BILATERAL DIAGNOSTIC TOMOSYNTHESIS; BI US BREAST LIMITED LEFT; 12/19/2022 9:42 am; 12/19/2022 10:52 am ACCESSION NUMBER(S): [id number]; [id number] ORDERING CLINICIAN: KAROLINA MAN INDICATION: Annual screening [...] axillary abnormality was performed by a registered can vacuum tester. No sonographic abnormalities are seen in the area of the patient's reported palpable lump or pain. 3 morphologically normal lymph nodes are incidentally seen. MMODAL No Panel InformationOrdered By: Mohan Romano on 12-19-2022 [facility] Work Phone: US Breast - left limitedon 1 Radiology Study observation (narrative) [facility] Work Phone: COMPREHENSIVE PANELon 2022 Albumin [Mass/Vol] 4.6 g/dL Normal 3.4 - 5.0 [facility] Comment on above: Performed By: #### C MP #### [facility] [address] [place] [address] ALP [Catalytic activity/Vol] 63 U/L Normal 33 - 110 [facility] Comment on above: Performed By: #### C MP #### [facility] [address] [place] [address] ALT [Catalytic activity/Vol] 23 U/L Normal 7 - 45 [facility] Comment on above: Result Comment: Lacie ents treated with Sulfasalazine may generate falsely decreased results for ALT. Performed By: #### C MP #### [facility] [address] [place] [address] Anion gap [Moles/Vol] 14 mmol/L Normal 10 - 20 [facility] Comment on above: Performed By: #### C MP #### [facility] [address] [place] [address] AST [Catalytic activity/Vol] 22 U/L Normal 9 - 39 [facility] Comment on above: Performed By: #### C MP #### [facility] [address] [place] [address] Bilirubin [Mass/Vol] 0.3 mg/dL Normal 0.0 - 1.2 [facility] Comment on above: Performed By: #### C MP #### [facility] [address] [place] [address] Calcium [Mass/Vol] 9.2 mg/dL Normal 8.6 - 10.6 [facility] Comment on above: Performed By: #### C MP #### [facility] [address] [place] [address] Chloride [Moles/Vol] 102 mmol/L Normal 98 - 107 [facility] Comment on above: Performed By: #### C MP #### [facility] [address] [place] [address] Creatinine [Mass/Vol] 0.66 mg/dL Normal 0.50 - 1.05 [facility] Comment on above: Performed By: #### C MP #### [facility] [address] [place] [address] eGFR FEMALE >90 Normal >90 [facility] Comment on above: Result Comment: CALC ULATIONS OF ESTIMATED GFR ARE PERFORMED USING THE 2020 CKD-EPI STUDY REFIT EQUATION WITHOUT THE RACE VARIABLE FOR THE IDMS-TRACEABLE CREATININE METHODS. https://jasn.asnjournals.org/content//ASN.311350 9365 Performed By: #### C MP #### [facility] [address] [place] [address] Glucose [Mass/Vol] 82 mg/dL Normal 74 - 99 [facility] Comment on above: Performed By: #### C MP #### [facility] [address] [place] [address] HCO3 (Bld) [Moles/Vol] 25 mmol/L Normal 21 - 32 [facility] Comment on above: Performed By: #### C MP #### [facility] [address] [place] [address] Potassium [Moles/Vol] 3.9 mmol/L Normal 3.5 - 5.3 [facility] Comment on above: Performed By: #### C MP #### [facility] [address] [place] [address] Protein [Mass/Vol] 7.2 g/dL Normal 6.4 - 8.2 [facility] Comment on above: Performed By: #### C MP #### [place] [address] [place] [address] Sodium [Moles/Vol] 137 mmol/L Normal 136 - 145 [facility] Comment on above: Performed By: #### C MP #### [facility] [address] [place] [address] Urea nitrogen [Mass/Vol] 17 mg/dL Normal 6 - 23 [facility] Comment on above: Performed By: #### C MP #### [facility] [address] [place] [address] VITAMIN D, 25-HYDROXYon 11-08 VITAMIN D, 25-HYDROXY 36 ng/mL Normal [facility] Comment on above: Result Comment: . DEFICIENCY: < 20 NG/ML INSUFFICIENCY: 20-29 NG/ML SUFFICIENCY: 30-100 NG/ML THIS ASSAY ACCURATELY QUANTIFIES THE SUM OF VITAMIN D3, 25-HYDROXY AND VIT D2,25-HYDROXY. Performed By: #### V TDOH #### [facility] [address] [place] [address] COMPREHENSIVE PANELon 2022 Lab Specimen Source Normal [facility] Comment on above: Performed By: #### C MP #### [facility] [address] [place] [address] Performed By: #### V TDOH #### [facility] [address] [place] [address] XR foot RT min 3V*on 023 XR foot RT min 3V* [facility] [email or web address] Other XR foot RT min 3V* [facility] Main [place] [email or web address] Other XR foot RT min 3V* [address] [place] [address] [email or web address] Other XR foot RT min 3V* [place] [address] [email or web address] Other XR foot RT min 3V* XRay Report [email or web address] Other XR foot RT min 3V* Signed [email or web address] Other XR foot RT min 3V* Patient: Michael Weller MR#: [id number] [email or web address] Other XR foot RT min 3V* [id number] [email or web address] Other XR foot RT min 3V* : 1985 Acct:[id number] [email or web address] Other XR foot RT min 3V* Age/Sex: 36 / F ADM Date: 07/02/22 [email or web address] Other XR foot RT min 3V* Loc: [id number] Room: Type: [facility] [email or web address] Other XR foot RT min 3V* Attending Dr: Bolivar Sherman HUMAN DEVELOPMENT PROFESSOR-C [email or web address] Other XR foot RT min 3V* Copies to: Bolivar Sherman [facility] [email or web address] Other XR foot RT min 3V* Ordering Provider: Bolivar Sherman [facility] [email or web address] Other XR foot RT min 3V* Date of Service: 07/02/22 [email or web address] Other XR foot RT min 3V* XR/XR foot RT min 3V*: Right foot pain [email or web address] Other XR foot RT min 3V* 3 views RIGHT foot [email or web address] Other XR foot RT min 3V* COMPARISON:None N [facility] [employer] Other XR foot RT min 3V* HISTORY: RIGHT 5th metatarsal pain for one week [email or web address] Other XR foot RT min 3V* Acute findings: None [email or web address] Other XR foot RT min 3V* Degenerative change: Unremarkable [email or web address] Other XR foot RT min 3V* Soft tissue findings : Unremarkable [email or web address] Other XR foot RT min 3V* Joint effusion: None [email or web address] Other XR foot RT min 3V* Postop changes: None [email or web address] Other XR foot RT min 3V* XR/XR foot RT min 3V* [email or web address] Other XR foot RT min 3V* IMPRESSION:No acute findings [email or web address] Other XR foot RT min 3V* Impression dictated by: Roddy Villegas M.D.07/02/2022 1:27 PM [email or web address] Other XR foot RT min 3V* Dictation Location: [facility] Other XR foot RT min 3V* Transcribed By: LENY 07/02/22 1326 [facility] Other XR foot RT min 3V* Dictated By: Roddy Villegas DO 07/02/22 1321 [facility] Other XR foot RT min 3V* Signed By: [email or web address] Other XR foot RT min 3V* 07/02/22 1328 [facility] [employer] Other Office Visit (Primary Care F orms)on [...] Anxiety; YOEL = N; Verified Transmission to [id number]; Last Updated By: Bowen Olmedo; 02/10/2022 3:45:08 [...] Grandfather Famil (more content not included)... Normal 3LM ULTRASOUND LIMITED BREASTon 10-14-2021 ULTRASOUND LIMITED BREAST Patient Name: MICHAEL WELLER STUDY: BREAST ULTRASOUND; 10/14/2021 3:38 pm ACCESSION NUMBER(S): [id number] ORDERING CLINICIAN: GRAZYNA ROMANO INDICATION: Patient presents with right axillary painful palpable mass for the last 2 years. History of benign right breast mass with unknown pathology in right breast. COMPARISON: Mammogram 06/21/2021, 07/06/2018, 01/08/2018. Breast ultrasound 06/21/2021, 04/23/2020, 07/15/2019, 02/02/2019 FINDINGS: Targeted ultrasound was performed of the right axilla by a registered can vacuum tester using elastography. Within the right axilla, no sonographic abnormality is present. The tissues are soft on elastography. Incidental note of normal appearing right axillary lymph node. IMPRESSION: No sonographic evidence of malignancy. Recommendation is clinical follow-up for patient's symptomatology. Screening mammogram in June 2022. BI-RADS CATEGORY: Category: 2 - Benign. Recommendation: Clinical follow-up for symptomatology. For any future breast imaging appointments, please call [phone] ([phone]). I personally reviewed the images/study and I agree with the findings as stated by residential director Brandt Camarlilo MD. Electronically signed by: JAYME STEWART MD Normal [facility] Ultrasound Limited [place] 10-14-2021 MG Breast Screening Normal [facility] Work Phone: Albumin [Mass/volume] in Ser um or PlasmaOrdered By: Kp Alvares on 10-07-2021 Albumin [Mass/Vol] 3.9 g/dL 3.2-5.5 [facility] Basophils Auto (Bld) [#/Vol] Ordered By: Kp Alvares on 10-07-2021 Basophils (Bld) [#/Vol] 0.0 10*3/uL 0.0-0.2 [facility] Basophils/100 WBC Auto (Bld) Ordered By: Kp Alvares on 10-07-2021 Basophils/100 WBC (Bld) 0.6 % . [facility] Blood hemoglobin measurement (mass/volume)Ordered By: Kp Alvares on 10-07-2021 Hemoglobin (Bld) [Mass/Vol] 12.9 g/dL 11.8-15.4 [facility] Blood leukocytes automated c ount (number/volume)Ordered By: Kp Alvares on 10-07-2021 WBC (Bld) [#/Vol] 6.7 10*3/uL 4.5-11.0 [facility] Cholesterol [Mass/volume] in Serum or PlasmaOrdered By: Kp Alvares on 10-07-2021 Cholesterol [Mass/Vol] 192 mg/dL 140-200 [facility] Comment on above: Chol less than 200 m g/dl low risk Chol 201-239 mg/dl borderline risk Chol 240 mg/dl and greater high risk Cholesterol in LDL Calc [Mas s/Vol]Ordered By: Kp Alvares on 10-07-2021 Cholesterol in LDL [Mass/Vol] 104 mg/dL 0-100 [facility] Comment on above: LDL ATP III CLASSIFI CATION LDL less than 100 mg/dL Optimal LDL 100-129 mg/dL Near or above optimal LDL 130-159 mg/dL Borderline high LDL 160-189 mg/dL High LDL greater than 189 mg/dL Very high Cholesterol in VLDL Calc [Ma ss/Vol]Ordered By: Kp Alvares on 10-07-2021 Cholesterol in VLDL [Mass/Vol] 49 mg/dL [facility] Creatinine and Glomerular fi ltration rate.predicted panel (S/P/Bld)Ordered By: Kp Alvares on 10-07-2021 Creatinine [Mass/Vol] 0.60 mg/dL 0.44-1.[address] [facility] Eosinophils Auto (Bld) [#/Vo l]Ordered By: Kp Alvares on 10-07-2021 Eosinophils (Bld) [#/Vol] 0.0 10*3/uL 0.0-0.45 [facility] Eosinophils/100 WBC Auto (Bl d)Ordered By: Kp Alvares on 10-07-2021 Eosinophils/100 WBC (Bld) 0.1 % . [facility] Erythrocyte distribution wid th Auto (RBC) [Ratio]Ordered By: Kp Alvares on 10-07-2021 Erythrocyte distribution width (RBC) [Ratio] 14.1 % 11.9-15.3 [facility] Estimated glomerular filtrat ion rate (GFR) non- AmericanOrdered By: Kp Alvares on 10-07-2021 GFR/1.73 sq M.predicted among non-blacks MDRD (S/P/Bld) [Vol rate/Area] > 60 mL/Min [facility] Globulin Calc (S) [Mass/Vol] Ordered By: Kp Alvares on 10-07-2021 Globulin (S) [Mass/Vol] 2.7 g/dL [facility] Hematocrit Auto (Bld) [Volum e fraction]Ordered By: Kp Alvares on 10-07-2021 Hematocrit (Bld) [Volume fraction] 39.2 % 34.0-46.4 [facility] Laboratory - Hematology and Cell countsOrdered By: Kp Alvares on 10-07-2021 Nucleated RBC/100 WBC (Bld) [Ratio] 0.0 % 0-0.5 [facility] Lymphocytes Auto (Bld) [#/Vo l]Ordered By: Kp Alvares on 10-07-2021 Lymphocytes (Bld) [#/Vol] 2.0 10*3/uL 1.00-4.8 [facility] Lymphocytes/100 WBC Auto (Bl d)Ordered By: Kp Alvares on 10-07-2021 Lymphocytes/100 WBC (Bld) 30.2 % . [facility] MCH Auto (RBC) [Entitic mass ]Ordered By: Kp Alvares on 10-07-2021 MCH (RBC) [Entitic mass] 28.2 pg 24.7-34.3 [facility] MCHC Auto (RBC) [Mass/Vol]Or dered By: Kp Alvares on 10-07-2021 MCHC (RBC) [Mass/Vol] 33.0 g/dL 32.0-35.[address] [facility] MCV Auto (RBC) [Entitic vol] Ordered By: Kp Alvares on 10-07-2021 MCV (RBC) [Entitic vol] 85.5 fL 80-100 [facility] Monocytes Auto (Bld) [#/Vol] Ordered By: Kp Alvares on 10-07-2021 Monocytes (Bld) [#/Vol] 0.4 10*3/uL 0.0-0.8 [facility] Monocytes/100 WBC Auto (Bld) Ordered By: Kp Alvares on 10-07-2021 Monocytes/100 WBC (Bld) 5.4 % . [facility] Neutrophils Auto (Bld) [#/Vo l]Ordered By: Kp Alvares on 10-07-2021 Neutrophils (Bld) [#/Vol] 4.2 10*3/uL 1.8-7.7 [facility] Neutrophils/100 WBC Auto (Bl d)Ordered By: pK Alvares on 10-07-2021 Neutrophils/100 WBC (Bld) 63.7 % . [facility] No Panel InformationOrdered By: Kp Alvares on 10-07-2021 Estimated GFR () > 60 mL/Min [facility] Comment on above: GFR estimated refere nce range: According to KDOQI guidelines, <60 ml/min/1.73m2 is sufficient to diagnose a patient with chronic kidney disease. Pharmacy Creatinine Clearance (Chem N/A [facility] Platelet mean volume Auto (B ld) [Entitic vol]Ordered By: Kp Alvares on 10-07-2021 Platelet mean volume (Bld) [Entitic vol] 11.4 fL 6.3-10.7 [facility] Platelets Auto (Bld) [#/Vol] Ordered By: Kp Alvares on 10-07-2021 Platelets (Bld) [#/Vol] 164 10*3/uL 150-450 [facility] Protein [Mass/volume] in Ser um or PlasmaOrdered By: Kp Alvares on 10-07-2021 Protein [Mass/Vol] 6.6 g/dL 6.1-7.9 [facility] RBC Auto (Bld) [#/Vol]Ordere d By: Kp Alvares on 10-07-2021 RBC (Bld) [#/Vol] 4.59 10*6/uL 3.60-5.00 [facility] Serum or plasma alanine bynum otransferase measurement without P-5'-P (enzymatic activiOrdered By: Kp Alvares on 10-07-2021 ALT No additional P-5'-P [Catalytic activity/Vol] 16 U/L 10-60 [facility] Serum or plasma albumin/glob ulin mass ratioOrdered By: Kp Alvares on 10-07-2021 Albumin/Globulin [Mass ratio] 1.4 {ratio} [facility] Serum or plasma alkaline jenn sphatase measurement (enzymatic activity/volume)Ordered By: Kp Alvares on 10-07-2021 ALP [Catalytic activity/Vol] 55 U/L 32-92 [facility] Serum or plasma aspartate am inotransferase measurement (enzymatic activity/volume)Ordered By: Kp Alvares on 10-07-2021 AST [Catalytic activity/Vol] 16 U/L 10-42 [facility] Serum or plasma calcium marlon urement (mass/volume)Ordered By: Kp Alvares on 10-07-2021 Calcium [Mass/Vol] 9.2 mg/dL 8.2-10.2 [facility] Serum or plasma chloride any surement (moles/volume)Ordered By: Kp Alvares on 10-07-2021 Chloride [Moles/Vol] 102 mmol/L 95-114 [facility] Serum or plasma glucose marlon urement (mass/volume)Ordered By: Kp Alvares on 10-07-2021 Glucose [Mass/Vol] 86 mg/dL 70-100 [facility] Comment on above: ADA recommended refe rence range Random Glucose Reference Range is dependent on time and content of last meal. Glucose of more than 200 mg/dL in a nonstressed, ambulatory subject supports the diagnosis of Diabetes Mellitus. Serum or plasma high density lipoprotein (HDL) cholesterol measurementOrdered By: Kp Alvares on 10-07-2021 Cholesterol in HDL [Mass/Vol] 39 mg/dL 35-85 [facility] Comment on above: HDL CHOL ATP-III CLA SSIFICATION Cardiovascular Risk HDL > or equal to 60 mg/dL LOW HDL < 40 mg/dL HIGH Serum or plasma potassium me asurement (moles/volume)Ordered By: Kp Alvares on 10-07-2021 Potassium [Moles/Vol] 4.1 mmol/L 3.5-5.[address] [facility] Serum or plasma sodium measu rement (moles/volume)Ordered By: Kp Alvares on 10-07-2021 Sodium [Moles/Vol] 134 mmol/L 136-146 [facility] Serum or plasma total biliru bin measurement (mass/volume)Ordered By: Kp Alvares on 10-07-2021 Bilirubin [Mass/Vol] 0.6 mg/dL 0.3-1.2 [facility] Serum or plasma total carbon dioxide measurement (moles/volume)Ordered By: Kp Alvares on 10-07-2021 CO2 [Moles/Vol] 25.9 mmol/L 22.0-30.0 [facility] Serum or plasma total choles terol/high density lipoprotein (HDL) cholesterol mass ratOrdered By: Kp Alvares on 10-07-2021 Cholesterol.total/Cho lesterol in HDL [Mass ratio] 4.9 {ratio} <5.0 [facility] Serum or plasma urea nitroge n measurement (mass/volume)Ordered By: Kp Alvares on 10-07-2021 Urea nitrogen [Mass/Vol] 10 mg/dL 9- [facility] TSH DL <= 0.005 mIU/L QnOrde red By: Kp Alvares on 10-07-2021 TSH Qn 2.68 m[IU]/L 0.45-5.33 [facility] Triglyceride [Mass/volume] i n Serum or PlasmaOrdered By: Kp Alvares on 10-07-2021 Triglyceride [Mass/Vol] 246 mg/dL 35-149 [facility] Comment on above: TRIG ATP III CLASSIF ICATION TRIG less than 150 mg/dL Normal TRIG 150-199 mg/dL Borderline high TRIG 200-500 mg/dL High TRIG greater than 500 mg/dL Very high Standard traceable to the Center for Disease Conrtrol and Prevention (CDC) test method. CBC AUTO DIFFon 07-12-2021 BASO # 0.0 103/ul Normal 0.0-0.1 [facility] Comment on above: Performed By: #### C BC #### [facility] [address] [address] [address] Kalyn Gutierrez Basophils/100 WBC (Bld) 0.4 % Normal 0.2-2.0 [facility] Comment on above: Performed By: #### C BC #### [facility] [address] [address] [address] Kalyn Gutierrez EO # 0.0 103/ul Normal 0.0-0.7 [facility] Comment on above: Performed By: #### C BC #### [facility] [address] [address] [address] Kalyn Gutierrez Eosinophils/100 WBC (Bld) 0.0 % Critically low 0.9-7.0 [facility] Comment on above: Performed By: #### C BC #### [facility] [address] [place] [address] Dr. Kalyn Gutierrez Erythrocyte distribution width (RBC) [Ratio] 12.8 % Normal 11.0-15.0 [facility] Comment on above: Performed By: #### C BC #### [facility] [address] [place] [address] Dr. Kalyn Gutierrez Hematocrit (Bld) [Volume fraction] 38.8 % Normal 36.0-48.0 [facility] Comment on above: Performed By: #### C BC #### [facility] [address] [place] [address] Dr. Kalyn Gutierrez Hemoglobin (Bld) [Mass/Vol] 12.4 g/dL Normal 12.0-16.0 [facility] Comment on above: Performed By: #### C BC #### [facility] [address] [place] [address] Dr. Kalyn Gutierrez IG # 0.02 10e3/ul Normal 0.00-0.03 [facility] Comment on above: Performed By: #### C BC #### [facility] [address] [place] [address] Dr. Kalyn Gutierrez IG % 0.3 % Normal 0.0-0.5 [facility] Comment on above: Performed By: #### C BC #### [facility] [address] [place] [address] Dr. Kalyn Gutierrez LYMPH # 1.8 103/ul Normal 1.2-3.8 [facility] Comment on above: Performed By: #### C BC #### [facility] [address] [place] [address] Dr. Kalyn Gutierrez Lymphocytes/100 WBC (Bld) 25.0 % Normal 20.5-60.0 [facility] Comment on above: Performed By: #### C BC #### [facility] [address] [place] [address] Dr. Kalyn Gutierrez MANUAL DIFF REQ NO Normal [facility] Comment on above: Performed By: #### C BC #### [facility] [address] [place] [address] Dr. Kalyn Gutierrez MCH (RBC) [Entitic mass] 28.2 pg Normal 26.7-34.0 [facility] Comment on above: Performed By: #### C BC #### [facility] [address] [place] [address] Dr. Kalyn Gutierrez MCHC (RBC) [Mass/Vol] 32.0 g/dL Normal 29.9-35.2 [facility] Comment on above: Performed By: #### C BC #### [facility] [address] [place] [address] Dr. Kalyn Gutierrez MCV (RBC) [Entitic vol] 88.4 fL Normal 81.0-99.0 [facility] Comment on above: Performed By: #### C BC #### [facility] [address] [place] [address] Dr. Kalyn Gutierrez MONO # 0.6 103/ul Normal 0.3-0.8 [facility] Comment on above: Performed By: #### C BC #### [facility] [address] [place] [address] Dr. Kalyn Gutierrez Monocytes/100 WBC (Bld) 8.7 % Normal 1.7-12.0 [facility] Comment on above: Performed By: #### C BC #### [facility] [address] [place] [address] Dr. Kalyn Gutierrez NEUT # 4.8 103/ul Normal 1.4-6.5 [facility] Comment on above: Performed By: #### C BC #### [facility] [address] [place] [address] Dr. Kalyn Gutierrez Neutrophils/100 WBC (Bld) 65.6 % Normal 43.0-75.0 [facility] Comment on above: Performed By: #### C BC #### [facility] [address] [place] [address] Dr. Kalyn Gutierrez Platelet mean volume (Bld) [Entitic vol] 12.3 fL Normal 9.5-13.5 [facility] Comment on above: Performed By: #### C BC #### [facility] [address] [address] [address] Kalyn Gutierrez PLT 183 103/ul Normal 150-450 [facility] Comment on above: Performed By: #### C BC #### [facility] [id number] Kalyn Gutierrez RBC 4.39 106/ul Normal 4.20-5.40 [facility] Comment on above: Performed By: #### C BC #### [facility] [address] [address] [address] Kalyn Gutierrez WBC 7.3 103/ul Normal 4.0-11.0 [facility] Comment on above: Performed By: #### C BC #### [facility] [address] [place] [address] Dr. Kalyn Gutierrez PREG QUANT HCGon 07-12-2021 HCG QUANT <1 Normal [facility] Comment on above: Performed By: #### P REGQNT #### [facility] [address] [place] [address] Dr. Kalyn Gutierrez HCG RANGE SEE BELOW Normal [facility] Comment on above: Result Comment: 5-50 0-1 WEEK 40-300 1-2 WEEKS 100-1,000 2-3 WEEKS 500-6,000 3-4 WEEKS 5,000-200,000 1-2 MONTHS 10,000-100,000 2-3 MONTHS 3,000-50,000 2ND TRIMESTER 1,000-50,000 3RD TRIMESTER Performed By: #### P REGQNT #### [facility] [address] [place] [address] Dr. Kalyn Gutierrez US PELVIS AND TRANSVAGon [...] by: NOEMI KRISHNA Date: 2021-06-22 09:10 Normal [facility] DIGITAL DIAG MAMM BILAT WITH TOMOon 06-21-2021 DIGITAL DIAG MAMM BILAT WITH SUSANA Patient Name: MICHAEL WELLER STUDY: DIGITAL DIAG MAMM BILAT WITH SUSANA; BREAST ULTRASOUND; 06/21/2021 3:05 pm; 06/21/2021 3:31 pm ACCESSION NUMBER(S): [id number]; [id number] ORDERING CLINICIAN: RAFAELA ARGUELLO INDICATION: Right breast [...] breast ultrasound was performed by a registered can vacuum tester utilizing elastography. The irregular hypoechoic parallel mass [...] any future breast imaging appointments, please call [phone]). Patient letter sent SAAPPR Electronically signed by: MOHAN ROMANO MD Normal [facility] IO UA (automated w/o microsc opy)on 06-21-2021 Protein (U) [Mass/Vol] Negative [facility] Work Phone: IO UA (automated w/o microscopy) Negative [facility] Work Phone: IO UA (automated w/o microscopy) Normal (0.2-1.0 mg/dl) [facility] Work Phone: IO UA (automated w/o microscopy) 6.5 1 [facility] Work Phone: IO UA (automated w/o microscopy) 1.025 1 [facility] Work Phone: IO UA (automated w/o microscopy) Clear [facility] Work Phone: IO UA (automated w/o microscopy) Yellow [facility] Work Phone: IO Ultrasound, measurement p ost-void resid urine and/or bl cap; no imagon 06-21-2021 IO Ultrasound, measurement post-void resid urine and/or bl cap; no imag 0 mL [facility] Work Phone: Radiologyon 06-21-2021 MG Breast Diagnostic Please click on the link to view the study images Normal [facility] Work Phone: MG Breast Diagnostic Normal MP-W SPC-Westla ke 200 Work Phone: Tobacco Screening.on 022 Fall risk assessment a) No falls within the last year [facility] Work Phone: Tobacco use status CPHS b) No [facility] Work Phone: ULTRASOUND LIMITED BREASTon 06-21-2021 ULTRASOUND LIMITED BREAST Patient Name: MICHAEL WELLER STUDY: DIGITAL DIAG MAMM BILAT WITH SUSANA; BREAST ULTRASOUND; 06/21/2021 3:05 pm; 06/21/2021 3:31 pm ACCESSION NUMBER(S): [id number]; [id number] ORDERING CLINICIAN: RAFAELA ARGUELLO INDICATION: Right breast [...] breast ultrasound was performed by a registered can vacuum tester utilizing elastography. The irregular hypoechoic parallel mass [...] any future breast imaging appointments, please call [phone] ([phone]). Patient letter sent SAAPPR Electronically signed by: MOHAN ROMANO MD Normal [facility] Ultrasound Limited Breaston 06-21-2021 MG Breast Screening Normal MP-WS PC-Westla ke [address] Work Phone: IO UA (automated w/o microsc opy)on 06-04-2021 Protein (U) [Mass/Vol] Negative BQ-RIOA-Nqkcot ke 200 Work Phone: IO UA (automated w/o microscopy) Negative EI-VUGO-Diyffa ke 200 Work Phone: IO UA (automated w/o microscopy) Normal MU-IGHU-Vmntix ke 200 Work Phone: IO UA (automated w/o microscopy) 7.0 1 PB-JFKS-Yfyjul ke 200 Work Phone: IO UA (automated w/o microscopy) 1.020 1 HJ-LNZY-Yaaizo ke 200 Work Phone: IO UA (automated w/o microscopy) Clear PB-GFKF-Lkhuuw ke 200 Work Phone: IO UA (automated w/o microscopy) Yellow PM-LNJJ-Qdehyd ke 200 Work Phone: Tobacco Screening.on 022 Adult depression screening assessment No MP-WSPC-Luiz tla ke [address] Work Phone: Fall risk assessment a) No falls within the last year IS-XNBW-Rtewjt ke 200 Work Phone: Last menstrual period start date 14May2021 WN-QBGT-Pnoqbz ke 200 Work Phone: Tobacco use status CPHS b) No KO-HGOT-Hwbjnk ke 200 Work Phone: PAP ACOG PANEL 2: 30 to 65on 03-28-2021 . . Normal [facility] Comment on above: Result Comment: Perf ormed at: WB Performed By: #### [id number] #### [facility] [address] [place] [address] Dr. Kalyn Gutierrez Age Gdln ACOG Testing 30-65 Normal [facility] Comment on above: Performed By: #### [id number] #### [facility] [address] [address] [address] Kalyn Gutierrez DIAGNOSIS: Comment Normal [facility] Comment on above: Result Comment: NEGA TIVE FOR INTRAEPITHELIAL LESION OR MALIGNANCY. Performed at: WB Performed By: #### [id number] #### [facility] [address] [place] [address] Dr. Kalyn Gutierrez HPV Aptima Negative Normal Negative [facility] Comment on above: Result Comment: This nucleic acid amplification test detects fourteen high-risk HPV types (16,18,31,33,35,39,45,51,52,56,58,59,66,68) without differentiation. Performed at: =G Performed By: #### [id number] #### [facility] [address] [place] [address] Dr. Kalyn Gutierrez Methodology: Comment Normal [facility] Comment on above: Result Comment: This liquid based ThinPrep(R) pap test was screened with the use of an image guided system. Performed at: WB Performed By: #### [id number] #### [facility] [address] [place] [address] Dr. Kalyn Gutierrez Note: Comment Normal [facility] [...] Performed at: WB Performed By: #### [id number] #### [facility] [address] [place] [address] Dr. Kalyn Gutierrez Performed by: Comment Normal [facility] Comment on above: Result Comment: Tawnya Del [place], Singe Machine Operator (ASCP) Performed at: WB Performed By: #### [id number] #### [facility] [address] [place] [address] Dr. Kalyn Gutierrez Specimen adequacy: Comment Normal [facility] Comment on above: Result Comment: Sati sfactory for evaluation. Endocervical and/or squamous metaplastic cells (endocervical component) are present. Performed at: WB Performed By: #### [id number] #### [facility] [address] [place] [address] Dr. Kalyn Gutierrez Vital Signs Date Time Vital Sign Value Performing Clinician Facility 08-17-2024 11:20-0400 Body mass index (BMI) [Ratio] 40 kg/m2 Matt Daya DO Work Phone: [facility] 08-17-2024 11:20-0400 Body weight 109.05 kg Matt Daya DO Work Phone: [facility] 08-17-2024 11:20-0400 Diastolic blood pressure 76 mm[Hg] Matt Daya DO Work Phone: [facility] 08-17-2024 11:20-0400 Systolic blood pressure 116 mm[Hg] Matt Daya DO Work Phone: [facility] 08-02-2024 09:22-0400 Body mass index (BMI) [Ratio] 39.44 kg/m2 Matt Daya DO Work Phone: [facility] 08-02-2024 09:22-0400 Body weight 107.5 kg Matt Daya DO Work Phone: [facility] 08-02-2024 09:22-0400 Diastolic blood pressure 82 mm[Hg] Matt Daya DO Work Phone: [facility] 08-02-2024 09:22-0400 Systolic blood pressure 120 mm[Hg] Matt Daya DO Work Phone: [facility] 07-12-2024 11:14-0400 Body mass index (BMI) [Ratio] 39.61 kg/m2 Matt Daya DO Work Phone: [facility] 07-12-2024 11:14-0400 Body weight 107.96 kg Matt Daya DO Work Phone: [facility] 07-12-2024 11:14-0400 Diastolic blood pressure 74 mm[Hg] Matt Daya DO Work Phone: [facility] 07-12-2024 11:14-0400 Systolic blood pressure 122 mm[Hg] Matt Daya DO Work Phone: [facility] 06-20-2024 10:21-0400 Body mass index (BMI) [Ratio] 39.11 kg/m2 Matt Daya DO Work Phone: [facility] 06-20-2024 10:21-0400 Body weight 106.59 kg Matt Daya DO Work Phone: [facility] 06-20-2024 10:21-0400 Diastolic blood pressure 72 mm[Hg] Matt Daya DO Work Phone: [facility] 06-20-2024 10:21-0400 Systolic blood pressure 120 mm[Hg] Matt Daya DO Work Phone: [facility] 04-14-2024 15:19-0500 Body mass index (BMI) [Ratio] 35.91 kg/m2 Merary MCBRIDE Work Phone: [facility] 04-14-2024 15:19-0500 Body weight 97.89 kg Merary MCBRIDE Work Phone: [facility] 04-14-2024 15:19-0500 Diastolic blood pressure 70 mm[Hg] Merary Wilcox PA Work Phone: [facility] 04-14-2024 15:19-0500 Systolic blood pressure 110 mm[Hg] Merary Wilcox PA Work Phone: [facility] 03-16-2024 16:18-0500 Body mass index (BMI) [Ratio] 34.58 kg/m2 Matt Daya DO Work Phone: [facility] 03-16-2024 16:18-0500 Body weight 94.26 kg Matt Daya DO Work Phone: [facility] 03-16-2024 16:18-0500 Diastolic blood pressure 72 mm[Hg] Matt Daya DO Work Phone: [facility] 03-16-2024 16:18-0500 Systolic blood pressure 116 mm[Hg] Matt Stapleton DO Work Phone: [facility] 01-05-2024 11:51-0400 Body mass index (BMI) [Ratio] 30.45 kg/m2 Maryannphuong Haile-Sachin Work Phone: 5(774)100-[address] [place] [address] 01-05-2024 11:51-0400 Body temperature 98.2 [degF] Maryann Haile-Sachin Work Phone: 8(193)187-398675 [place] [address] 01-05-2024 11:51-0400 Body weight 83.01 kg Maryannphuong Haile-Sachin Work Phone: 3(720)440-887075 [place] [address] 01-05-2024 11:51-0400 Diastolic blood pressure 76 mm[Hg] Maryann Mic-Sachin Work Phone: 4(105)094-406575 [place] [address] 01-05-2024 11:51-0400 Heart rate 74 /min Maryann Haile-Fletcherrogers Work Phone: 3(773)592-233175 [place] [address] 01-05-2024 11:51-0400 Respiratory rate 18 /min Maryann Haile-Lobopedro luis Work Phone: 7(431)903-936375 [place] [address] 01-05-2024 11:51-0400 SaO2% (BldA) [Mass fraction] 98 % Maryannphuong Haile-Sachin Work Phone: 7(900)745-736975 [place] [address] 01-05-2024 11:51-0400 Systolic blood pressure 119 mm[Hg] Maryann Mic-Sachin Work Phone: 1(230)168-661675 [place] [address] 09-05-2023 13:24-0400 Body height 165.1 cm [facility] 09-05-2023 13:24-0400 Body mass index (BMI) [Ratio] 29.2 kg/m2 [facility] 09-05-2023 13:24-0400 Body temperature 97.9 [degF] [facility] 09-05-2023 13:24-0400 Body weight 79.83 kg [facility] 09-05-2023 13:24-0400 Diastolic blood pressure 85 mm[Hg] [facility] 09-05-2023 13:24-0400 Heart rate 106 /min [facility] 09-05-2023 13:24-0400 Respiratory rate 18 /min [facility] 09-05-2023 13:24-0400 SaO2% (BldA) [Mass fraction] 96 % [facility] 09-05-2023 13:24-0400 Systolic blood pressure 120 mm[Hg] [facility] 07-22-2023 14:37-0400 Body height 165.1 cm Jhonny Issa MD Work Phone: [facility] 07-22-2023 14:37-0400 Body mass index (BMI) [Ratio] 30.72 kg/m2 Jhonny Issa MD Work Phone: [facility] 07-22-2023 14:37-0400 Body weight 83.73 kg Jhonny Issa MD Work Phone: [facility] 07-22-2023 14:37-0400 Diastolic blood pressure 78 mm[Hg] Jhonny Issa MD Work Phone: [facility] 07-22-2023 14:37-0400 Heart rate 111 /min Jhonny Issa MD Work Phone: [facility] 07-22-2023 14:37-0400 Systolic blood pressure 118 mm[Hg] Jhonny Issa MD Work Phone: [facility] 04-27-2023 15:40-0500 Body height 165.1 cm Jhonny Issa MD Work Phone: [facility] 04-27-2023 15:40-0500 Body mass index (BMI) [Ratio] 34.15 kg/m2 Jhonny Issa MD Work Phone: [facility] 04-27-2023 15:40-0500 Body weight 93.08 kg Jhonny Issa MD Work Phone: [facility] 04-27-2023 15:40-0500 Diastolic blood pressure 60 mm[Hg] Jhonny Issa MD Work Phone: [facility] 04-27-2023 15:40-0500 Heart rate 123 /min Jhonny Issa MD Work Phone: [facility] 04-27-2023 15:40-0500 Respiratory rate 14 /min Jhonny Issa MD Work Phone: [facility] 04-27-2023 15:40-0500 Systolic blood pressure 104 mm[Hg] Jhonny Issa MD Work Phone: [facility] 02-19-2023 10:39-0500 Body height 165.1 cm Jhonny Issa MD Work Phone: [facility] 02-19-2023 10:39-0500 Body mass index (BMI) [Ratio] 36.08 kg/m2 Jhonny Issa MD Work Phone: [facility] 02-19-2023 10:39-0500 Body weight 98.34 kg Jhonny Issa MD Work Phone: [facility] 02-19-2023 10:39-0500 Diastolic blood pressure 83 mm[Hg] Jhonny Issa MD Work Phone: [facility] 02-19-2023 10:39-0500 Heart rate 94 /min Jhonny Issa MD Work Phone: [facility] 02-19-2023 10:39-0500 Systolic blood pressure 117 mm[Hg] Jhonny Issa MD Work Phone: [facility] 07-02-2022 13:20-0400 Body height 165.1 cm Bolivar Sherman Other [email or web address] Other 07-02-2022 13:20-0400 Body mass index (BMI) [Ratio] 33.28 kg/m2 Bolivar Sherman Other [email or web address] Other 07-02-2022 13:20-0400 Body weight 90.72 kg Bolivar Sherman Other [email or web address] Other 07-02-2022 13:20-0400 Diastolic blood pressure 78 mm[Hg] Bolivar Sherman Other [email or web address] Other 07-02-2022 13:20-0400 Respiratory rate 18 /min Bolivar Sherman Other [email or web address] Other 07-02-2022 13:20-0400 SaO2% (BldA) [Mass fraction] 99 % Bolivar Sherman Other [email or web address] Other 07-02-2022 13:20-0400 Systolic blood pressure 117 mm[Hg] Boilvar Sherman Other [email or web address] Other 10-14-2021 15:07-0400 Diastolic blood pressure 98 mm[Hg] Rafaela Arguello Work Phone: [employer] Work Phone: 10-14-2021 15:07-0400 Heart rate 103 /min Rafaela Arguello Work Phone: [employer] Work Phone: 10-14-2021 15:07-0400 Systolic blood pressure 132 mm[Hg] Rafaela Arguello Work Phone: [employer] Work Phone: 06-21-2021 08:13-0400 Body height 165.1 cm Rafaela Arguello Work Phone: [facility] Work Phone: 06-21-2021 08:13-0400 Body mass index (BMI) [Ratio] 33.28 kg/m2 Rafaela Silva Arguello Work Phone: [facility] Work Phone: 06-21-2021 08:13-0400 Body surface area Derived from formula 1.98 m2 Rafaela Arguello Work Phone: [facility] Work Phone: 06-21-2021 08:13-0400 Body temperature 97.2 [degF] Rafaela Silva Hema Work Phone: 0(834)[phone] [place] [address] Work Phone: 06-21-2021 08:13-0400 Body weight 90.72 kg Rafaela Arguello Work Phone: 6(928)[phone] [place] [address] Work Phone: 06-21-2021 08:13-0400 Diastolic blood pressure 82 mm[Hg] Rafaela Silva Arguello Work Phone: [facility] Work Phone: 06-21-2021 08:13-0400 Heart rate 89 /min Rafaela Silva Hema Work Phone: 9(175)[phone] [place] [address] Work Phone: 06-21-2021 08:13-0400 Systolic blood pressure 115 mm[Hg] Rafaela Silva Arguello Work Phone: [facility] Work Phone: 06-04-2021 13:05-0400 Body height 167.64 cm Rafaela Arguello Work Phone: CK-XXMC-Ggsqjami 200 Work Phone: 06-04-2021 13:05-0400 Body mass index (BMI) [Ratio] 32.77 kg/m2 Rafaela Arguello Work Phone: AO-TRPS-Fnhmrxnn 200 Work Phone: 06-04-2021 13:05-0400 Body surface area Derived from formula 2.01 m2 Rafaela Arguello Work Phone: PC-XTZP-Cdhtowic 200 Work Phone: 06-04-2021 13:05-0400 Body temperature 98.2 [degF] Rafaela Arguello Work Phone: UD-BRUJ-Bmgwskye 200 Work Phone: 06-04-2021 13:05-0400 Body weight 92.08 kg Rafaela Arguello Work Phone: AQ-YDBM-Ftqwfssl 200 Work Phone: 06-04-2021 13:05-0400 Diastolic blood pressure 76 mm[Hg] Rafaela Arguello Work Phone: DK-PXUD-Moalucnx 200 Work Phone: 06-04-2021 13:05-0400 Heart rate 80 /min Rafaela Arguello Work Phone: LS-FPZV-Fasevoax 200 Work Phone: 06-04-2021 13:05-0400 Respiratory rate 16 /min Rafaela Arguello Work Phone: LP-UAZW-Tywlcsys 200 Work Phone: 06-04-2021 13:05-0400 Systolic blood pressure 122 mm[Hg] Rafaela Arguello Work Phone: NK-SPBG-Phkzadlp 200 Work Phone: 12-07-2019 11:03-0400 BMI (Body Mass Index) 31.95 kg/m2 Rafaela Arguello ZH-KMHN-Ymmpggoy 200 Work Phone: 12-07-2019 11:03-0400 Body Temperature 98.3 [degF] Rafaela Arguello YV-ATMY-Vwqfvrr e 200 Work Phone: Comment on above: Method: Temporal 12-07-2019 11:03-0400 Body weight 87.77 kg Rafaela Arguello NF-MEVW-Jujogcsz 200 Work Phone: 12-07-2019 11:03-0400 BP Diastolic 74 mm[Hg] Rafaela Arguello MP-WSPC-[place] 200 Work Phone: 12-07-2019 11:03-0400 BP Systolic 118 mm[Hg] Rafaela Arguello UV-COYS-Qmvlejlj 200 Work Phone: 12-07-2019 11:03-0400 BSA (Body Surface Area) 1.96 m2 Rafaela Arguello MP-WSPC-[place] 200 Work Phone: 12-07-2019 11:03-0400 Height 165.74 cm Rafaela Arguello IY-ZELF-Qlzhkyba 200 Work Phone: 12-07-2019 11:03-0400 Pulse (Heart Rate) 84 /min Rafaela Arguello MP-WSPC-Westl mayur 200 Work Phone: 12-07-2019 11:03-0400 Respiratory Rate 16 /min Rafaela Arguello MP-WSPC-Westlak e 200 Work Phone: 05-16-2019 18:12-0400 BMI (Body Mass Index) 33.45 kg/m2 Rafaela Arguello EQ-EDYG-Ycsv [facility] Work Phone: 05-16-2019 18:12-0400 [...] Pulse (Heart Rate) 88 /min Rafaela Arguello NL-JXKC-Zieh [facility] Work Phone: 05-16-2019 18:12-0400 Pulse Oximetry 98 % Rafaela Arguello WA-SUZW-Mbgs 253 [facility] Work Phone: 05-16-2019 18:12-0400 Respiratory Rate 18 /min Rafaela Arguello FT-YFOG-Ghug 25 [facility] Work Phone: Encounters Encounter Date Encounter Type Care Provider Facility Start: 08-19-2024 End: 08-19-2024 Clinisync Result Encounter Matt Daya DO Work Phone: [facility] Unsolicited Start: 08-19-2024 End: 08-19-2024 Clinisync Result Encounter Matt Daya DO Work Phone: [facility] Unsolicited Start: 08-17-2024 End: 08-17-2024 Bamboo flowsheet Matt Daya DO Work Phone: [facility] Start: 08-17-2024 End: 08-17-2024 Bamboo flowsheet Matt Daya DO Work Phone: [facility] Start: 08-17-2024 End: 08-17-2024 Telephone encounter Charlene Nguyen [facility] [address] M[facility]- Medicine at [facility] Start: 08-17-2024 End: 08-17-2024 ambulatory MATT DAYA Not Available Start: 08-17-2024 End: 08-17-2024 flow sheet Matt Daya DO Work Phone: [facility] Comment on above: Third trimester preg isabella; 33 weeks gestation of Start: 08-15-2024 End: 08-15-2024 Clinisync Result Encounter Matt Daya DO Work Phone: [facility] Unsolicited Start: 08-15-2024 End: 08-15-2024 Clinisync Result Encounter Matt Daya DO Work Phone: [facility] Unsolicited Start: 08-15-2024 End: 08-15-2024 Office outpatient visit 25 minutes Lucretia Villafana PA-C Work Phone: [facility]- [facility] at [facility] Comment on above: Gestational diabetes requiring insulin (Primary Dx) Start: 08-15-2024 End: 08-15-2024 ambulatory LUCRETIA VILLAFANA [facility] Start: 08-14-2024 End: 08-14-2024 Clinisync Result Encounter Matt Daya DO Work Phone: [facility] Unsolicited Start: 08-14-2024 End: 08-14-2024 Clinisync Result Encounter Matt Daya DO Work Phone: [facility] Unsolicited Start: 08-12-2024 End: 08-12-2024 Clinisync Result Encounter Matt Daya DO Work Phone: [facility] Unsolicited Start: 08-12-2024 End: 08-12-2024 Clinisync Result Encounter Matt Daya DO Work Phone: [facility] Unsolicited Start: 08-09-2024 End: 08-09-2024 ambulatory MATT DAYA Not Available Start: 08-09-2024 End: 08-09-2024 ambulatory IGNACIA DAVE [facility] Start: 08-06-2024 End: 08-06-2024 Clinisync Result Encounter Matt Daya DO Work Phone: [facility] Unsolicited Start: 08-06-2024 End: 08-06-2024 Clinisync Result Encounter Matt Daya DO Work Phone: [facility] Unsolicited Start: 08-03-2024 End: 08-04-2024 Chart abstracting Scanning Provider External [facility]- [facility] at [facility] Start: 08-02-2024 End: 08-02-2024 Bamboo flowsheet Matt Daya DO Work Phone: [facility] Start: 08-02-2024 End: 08-02-2024 Bamboo flowsheet Matt Daya DO Work Phone: [facility] Start: 08-02-2024 End: 08-02-2024 flow sheet Matt Daya DO Work Phone: [facility] Comment on above: 31 weeks gestation o f ; Third trimester ; Gestational diabetes mellitus (GDM), antepartum, gestational diabetes method of control unspecified Start: 08-02-2024 End: 08-02-2024 ambulatory MATT DAYA Not Available Start: 07-12-2024 End: 07-12-2024 flow sheet Matt Daya DO Work Phone: [facility] Comment on above: Third trimester preg isabella; 28 weeks gestation of ; Multigravida of advanced maternal age in third trimester; Gestational diabetes mellitus (GDM), antepartum, gestational diabetes method of control unspecified; Elevated glucose tolerance test Start: 07-12-2024 End: 07-12-2024 ambulatory MATT DAYA Not Available Start: 06-30-2024 End: 06-30-2024 Clinisync Result Encounter Matt Daya DO Work Phone: [facility] Unsolicited Start: 06-30-2024 End: 06-30-2024 Clinisync Result Encounter Matt Daya DO Work Phone: [facility] Unsolicited Start: 06-20-2024 End: 06-20-2024 Bamboo flowsheet Matt Daya DO Work Phone: [facility] Start: 06-20-2024 End: 06-20-2024 Bamboo flowsheet Matt Daya DO Work Phone: [facility] Start: 06-20-2024 End: 06-20-2024 ambulatory MATT DAYA Not Available Start: 06-20-2024 End: 06-20-2024 flow sheet Matt Daya DO Work Phone: [facility] Comment on above: Diabetes mellitus sc reening; 25 weeks gestation of ; Second trimester ; Antepartum multigravida of advanced maternal age Start: 05-23-2024 End: 05-23-2024 ambulatory MATT DAYA Not Available Start: 05-03-2024 End: 05-06-2024 Clinisync Result Encounter Merary MCBRIDE Work Phone: [facility] External Department Unsolicited Start: 05-03-2024 End: 05-06-2024 Clinisync Result Encounter Merary MCBRIDE Work Phone: [facility] External Department Unsolicited Start: 04-14-2024 End: 04-14-2024 ambulatory MERARY WILCOX Not Available Start: 04-14-2024 End: 04-14-2024 Patient encounter procedure Merary MCBRIDE Work Phone: [facility] Start: 04-14-2024 End: 04-14-2024 Periodic preventive med est patient 18-39 yrs Merary MCBRIDE Work Phone: [facility] Comment on above: 15 weeks gestation o f ; Second trimester ; Well woman exam with routine gynecological exam; Screening, , for anatomic survey; Exposure to STD; Vaginal discharge; Nausea Start: 04-14-2024 End: 04-14-2024 Bamboo flowsheet Merary MCBRIDE Work Phone: [facility] Start: 04-14-2024 End: 04-14-2024 Bamboo flowsheet Merary MCBRIDE Work Phone: [facility] Start: 03-16-2024 End: 03-16-2024 flow sheet Matt Daya DO Work Phone: [facility] Comment on above: First trimester [...] Start: 03-08-2024 End: 03-08-2024 ambulatory Matt Daya Facility:[facility] Start: 03-08-2024 End: 03-08-2024 Departed Referred Matt Daya DO Work Phone: [facility] Start: 02-16-2024 End: 02-16-2024 Office outpatient [...] minutes Maryann Davison Work Phone: [facility] Comment on above: Acute lower UTI (Adrianna eulogio Dx); Urine frequency Start: 10-20-2023 End: 10-26-2023 Clinisync Result Encounter Matt Gambiono DO Work Phone: [facility] Unsolicited Start: 10-20-2023 End: 10-26-2023 Clinisync Result Encounter Matt Daya DO Work Phone: [facility] Unsolicited Start: 10-20-2023 End: 10-20-2023 ambulatory MATT DAYA Not Available Start: 09-05-2023 End: 09-05-2023 Departed Referred HOSPITALIST NOCTURNIST PHYSICIAN Swetha Andersen Work Phone: [facility] 250 Start: 09-05-2023 End: 09-05-2023 ambulatory PHYSICIAN [facility] Work Phone: Start: 09-05-2023 End: 09-05-2023 Patient encounter procedure [facility] Amandeep Work Phone: Start: 09-01-2023 End: 09-01-2023 ambulatory ROULA BLEDSOE Facility:[facility] Start: 09-01-2023 End: 09-01-2023 Patient encounter procedure Roula Ayeshajeanette MCNAIR Work Phone: [facility] [place] Comment on above: Dermatofibroma (Prim ottoniel Dx); Lentigines; Multiple benign nevi; Valles angioma; Hx of malignant melanoma Start: 07-22-2023 End: 07-22-2023 ambulatory [facility] Ambulatory Start: 07-22-2023 End: 07-22-2023 Office outpatient visit 25 minutes Jhonny Issa MD Work Phone: [facility] Comment on above: Encephalopathy (Prim ottoniel Dx); Attention deficit hyperactivity disorder (ADHD), predominantly inattentive type; Insomnia due to medical condition; Anxiety Start: 04-27-2023 End: 04-27-2023 ambulatory [facility] Ambulatory Start: 04-27-2023 End: 04-27-2023 Office outpatient visit 25 minutes Jhonny Issa MD Work Phone: [facility] Comment on above: Encephalopathy (Prim ottoniel Dx); Attention deficit hyperactivity disorder (ADHD), predominantly inattentive type; Insomnia due to medical condition; Anxiety Start: 03-04-2023 End: 03-04-2023 ambulatory KAROLINA Cota [facility] Ambulatory Start: 03-04-2023 End: 03-04-2023 Office outpatient visit 15 minutes Karolina Man DO Work Phone: [facility] Comment on above: Anxiety Start: 02-19-2023 End: 02-19-2023 ambulatory [facility] Alexandre [facility] Ambulatory Start: 02-19-2023 End: 02-19-2023 Office outpatient new 60 minutes Jhonny Issa MD Work Phone: [facility] Comment on above: Encephalopathy (Prim ottoniel Dx); Anxiety; Attention deficit hyperactivity disorder (ADHD), predominantly inattentive type Start: 12-19-2022 End: 12-19-2022 Subsequent hospital visit by physician Martha Breast Ultrasound [facility] Comment on above: Lump in female breas t Start: 12-19-2022 End: 12-19-2022 ambulatory KAROLINA Cota [facility] Start: 12-19-2022 End: 12-19-2022 ambulatory KAROLINA Cota [facility] Start: 12-19-2022 End: 12-19-2022 Subsequent hospital visit by physician Martha Mammo [facility] Comment on above: Abnormal mammogram Start: 12-03-2022 End: 12-03-2022 ambulatory KAROLINA Cipriano [facility] Ambulatory Start: 10-16-[address] Work Phone: [facility] Work Phone: Start: 07-02-2022 Office outpatient vi sit 25 minutes Bolivar Sherman [facility] Ur[facility] Start: 07-02-2022 End: 07-02-2022 ambulatory DO Danielle Infante Work Phone: [facility] Work Phone: Start: 07-02-2022 End: 07-02-2022 Patient encounter procedure DO Danielle Infante Work Phone: [facility] 250 Start: 04-14-[address] Work Phone: VQ-BIPV-Ydavlvzd 200 Work Phone: Start: 03-17-2022 Rx Renewal Rafaela Sanabria rd Work Phone: GU-MFGQ-Kedlkqce 200 Work Phone: Start: 02-10-2022 ambulatory Ms. Rafaela Arguello Facility:[id number] Start: 02-10-2022 Office outpatient vi sit 25 minutes Rafaela Arguello Work Phone: CJ-VJTS-Uhycwimx 200 Work Phone: Start: 10-30-2021 Rx Renewal Rafaela Sanabria rd Work Phone: YD-YVDN-Bbdbdtzl 200 Work Phone: Start: 10-17-2021 End: 10-17-2021 Patient encounter procedure Roula Bledsoe APRN.CNP Work Phone: [facility] [place] Comment on above: Lentigines (Primary Dx); Multiple benign nevi; Valles angioma; Exposure to tanning bed, sequela; Hx of malignant melanoma; Dermatofibroma Start: 10-14-2021 Office consultation new/estab patient 60 min Rafaela Arguello Work Phone: [facility] Work Phone: Start: 10-14-2021 Patient encounter procedure Rafaela Arguello Work Phone: [facility] Work Phone: Start: 10-08-2021 Office outpatient vi sit 25 minutes Rafaela Arguello Work Phone: WA-TEVQ-Othnjtit 200 Work Phone: Start: 10-08-2021 ambulatory Ms. Rafaela Arguello Facility:[id number] Start: 10-07-2021 End: 10-07-2021 Departed Referred DO Danielle Infante Work Phone: [facility] Start: 10-02-2021 Rx Renewal Rafaela Sanabria rd Work Phone: NE-LSYF-Gnyshruj 200 Work Phone: Start: 09-06-2021 Patient encounter procedure Rafaela E Hema Work Phone: [facility] Work Phone: Start: 09-06-2021 ambulatory Ms. Rafaela Arguello Facility:[id number] Start: 07-12-2021 End: 07-12-[address] SHASHANK BARAJAS Facility:H1 Start: 07-11-2021 Encounter for preprocedural cardiovascular examination DR MATT STAPLETON [facility] Start: 07-10-2021 End: 07-11-[address] MATT STAPLETON Facility:H1 Start: 07-10-2021 End: 07-11-2021 Encounter for preprocedural cardiovascular examination DR MATT STAPLETON Facility:[facility]1 Start: 07-09-[address] MATT STAPLETON Facility :H1 Start: 07-01-[address] Work Phone: TS-FSIA-Mlsvuhwk 200 Work Phone: Start: 06-28-2021 Chart Update Rafaela Sanabria rd Work Phone: MF-PHUM-Dozzrhdm 200 Work Phone: Start: 06-27-[address] Work Phone: AT-ATSU-Jbggsazo 200 Work Phone: Start: 06-21-2021 End: 06-22-[address] MATT STAPLETON Facility:H1 Start: 06-04-2021 Office outpatient vi sit 25 minutes Rafaela Arguello Work Phone: JV-NQHR-Oxampnln 200 Work Phone: Start: 06-04-2021 Patient encounter procedure Rafaela Arguello Work Phone: NF-ZPHM-Vgyamvaj 200 Work Phone: Start: 06-04-2021 ambulatory Ms. Rafaela Arguello Facility:[id number] Start: 03-25-2021 End: 03-25-[address] MATT STAPLETON Facility:H1 Start: 12-07-2019 Patient encounter procedure Rafaela Arguello CB-IVPJ-Vzydjjyi 200 Work Phone: Start: 05-16-2019 Patient encounter procedure Rafaela Arguello JM-NAZQ-Gorl [facility] Work Phone: Start: 09-27-2018 Patient encounter procedure Rafaela Arguello CW-CINP-Txjq [facility] Work Phone: Start: 09-14-2018 Patient encounter procedure Rafaela Arguello HB-PDUX-Wkuc [facility] Work Phone: Start: 07-17-2017 Patient encounter procedure Rafaela Arguello JY-DCUO-Nfvx [facility] Work Phone: Procedures Date Procedure Procedure Detail Performing Clinician Start: 08-19-2024 US OB BPP W NON-STRESS Matt Daya DO Work Phone: Start: 08-15-2024 [facility] UA (CLEAN/CATCH) ACCOUNT SUPERVISOR/MICRO IF IND. Matt Daya DO Work Phone: Start: 08-14-2024 [facility] TOTAL PROTEIN 24 HOUR URINE Matt Daya DO Work Phone: Start: 08-12-2024 US OB BPP W NON-STRESS Matt Daya DO Work Phone: Start: 08-12-2024 ALL CBC WITH AUTO DIFF Matt Daya DO Work Phone: Start: 08-06-2024 US OB BPP W NON-STRESS Matt Daya DO [...] KAROLINA MAN Start: 12-03-2022 VITAMIN D 25-HYDROXY,TOTAL KARLOINA MAN Start: 10-17-2022 Microscopic observat ion [Identifier] [...] Surgery Rafaela Arguello Hyperlipidemia screening Tho mas [place] Other Procedure on back Rafaela Silva Ingrid croft Work Phone: Removal of suture Bolivar For anabell Other Tonsillectomy Rafaelalaron Arguello Total replacement of hip Keaton laron Arguello Plan of Treatment Date Care Activity Detail Author Start: 10-26-2037 Zoster Vaccines (1 o f 2) Zoster Vaccines (1 of 2) [facility] Start: 10-19-2028 Screening for malignant neoplasm of cervix [facility] Start: 10-18-2027 Screening for malignant neoplasm of cervix [facility] Start: 10-19-2026 Screening for malignant neoplasm of cervix [facility] Start: 10-17-2025 Screening for malignant neoplasm of cervix [facility] Start: 04-23-2025 Lipid panel Lipid Panel [facility] Start: 11-07-2024 Influ[facility] Start: 10-26-2024 End: 10-26-2024 Patient encounter procedure 10/26/2024 4:00 PM EDT Office Visit [facility] [address] [place] [address] Matt Stapleton, DO [address] [place], [place] [id number] [facility] Start: 08-31-2024 End: 08-31-2024 Patient encounter procedure 08/31/2024 11:20 AM EDT Routine [facility] [address] [place] [address] Matt Stapleton, DO [address] [place] [address] [facility] Start: 08-17-2024 End: 08-17-2024 Patient encounter procedure 08/17/2024 11:00 AM EDT Routine [facility] [address] [place] [id number] Matt Stapleton, DO [address] [place] [address] [facility] Start: 08-09-2024 End: 08-09-2024 Professional / ancillary services management 08/09/2024 3:00 PM EDT Ancillary Procedure [facility] [address] [place] [phone] [facility] Start: 08-09-2024 End: 08-09-2024 ambulatory 08/09/2024 10:30 AM EDT Support Visit Maternal- Medicine at [facility] [address] [place] [id number] Noelle Johnston RN [address] [address] Ignacia Dave, IVONNE [address] [place] [address] [facility]- Medicine at [facility] Start: 08-02-2024 End: 02-02-2025 US biophysical profile [...] third trimester Expected: 07/12/2024 (Approximate), Expires: 11/12/2024 [facility] Work Phone: Comment on above: Expected: 07/12/2024 (Approximate), Expires: 11/12/2024 Start: 07-12-2024 End: 07-12-2024 Patient encounter procedure 07/12/2024 11:10 AM EDT Routine [facility] [address] [place] [address] Matt Stapleton, DO [address] [place], [place] [id number] [facility] Start: 07-12-2024 End: 07-12-2024 Professional / ancillary services management 07/12/2024 10:30 AM EDT Ancillary Procedure [facility] [address] [place] [address] [facility] Start: 06-20-2024 End: 06-20-2025 CBC panel - Blood by Automated count CBC Lab Routine Diabetes mellitus screening Expected: 06/20/2024 (Approximate), Expires: 06/20/2025 [facility] Healthcare Work Phone: Comment on above: Expected: 06/20/2024 (Approximate), Expires: 06/20/2025 Start: 06-20-2024 End: 06-20-2025 Measurement of glucose 1 hour after glucose challenge for glucose tolerance test Glucose tolerance, 1 hour Lab Routine Diabetes mellitus screening Expected: 06/20/2024 (Approximate), Expires: 06/20/2025 [facility] Healthcare Comment on above: Expected: 06/20/2024 (Approximate), Expires: 06/20/2025 Start: 06-20-2024 End: 10-20-2024 US for US OB follow up transabdominal approach Imaging Routine Antepartum multigravida of advanced maternal age Expected: 06/20/2024, Expires: 10/20/2024 [facility] Work Phone: Comment on above: Expected: 06/20/2024 , Expires: 10/20/2024 Start: 05-23-2024 End: 05-23-2024 Patient encounter procedure 05/23/2024 8:50 AM EDT Routine [facility] [address] [place] [phone] Matt Stapleton DO [address] [place], [place] [id number] [facility] Start: 05-23-2024 End: 05-23-2024 Professional / ancillary services management 05/23/2024 8:00 AM EDT Ancillary Procedure [facility] [address] [place] [phone] [facility] Start: 04-14-2024 End: 04-14-2024 Patient encounter procedure 04/14/2024 3:50 PM EST Routine [facility] [address] [place] [phone] Merary Wilcox PA [address] [place] [address] [facility] Start: 04-14-2024 End: 05-12-2024 Alpha fetoprotein, maternal Alpha fetoprotein, maternal Lab Routine 15 weeks gestation of Second trimester Expected: 04/14/2024 (Approximate), Expires: 05/12/2024 [facility] Healthcare Comment on above: Expected: 04/14/2024 (Approximate), Expires: 05/12/2024 Start: 04-14-2024 End: 04-14-2025 US for US OB 14+ weeks anatomy scan Imaging Routine Screening, , for anatomic survey Expected: 04/14/2024, Expires: 04/14/2025 [facility] Healthcare Comment on above: Expected: 04/14/2024 , Expires: 04/14/2025 Start: 03-25-2024 Screening for malignant neoplasm of cervix [facility] Start: 03-16-2024 End: 03-16-2024 Patient encounter procedure [facility] Comment on above: Arrived Start: 03-08-2024 Bacteria identified in Urine by Culture Urine Culture [facility] System Start: 03-08-2024 Urine culture [facility] Start: 02-16-2024 End: 02-15-2025 ABO/Rh ABO/Rh Lab Routine Missed menses , unspecified gestational age Expected: 02/16/2024 (Approximate), Expires: 02/15/2025 [facility] Healthcare Comment on above: Expected: 02/16/2024 (Approximate), Expires: 02/15/2025 Start: 02-16-2024 End: 02-15-2025 Blood type and Indirect antibody screen panel - Blood Type and screen Lab Routine Missed menses , unspecified gestational age Expected: 02/16/2024 (Approximate), Expires: 02/15/2025 [facility] Healthcare Work Phone: Comment on above: Expected: 02/16/2024 (Approximate), Expires: 02/15/2025 Start: 02-16-2024 End: 02-15-2025 Drugs of abuse panel - Urine by Screen method Rapid drug screen, urine Lab Routine , unspecified gestational age Encounter for supervision of normal first in first trimester Expected: 02/16/2024 (Approximate), Expires: 02/15/2025 [facility] Healthcare Comment on above: Expected: 02/16/2024 (Approximate), Expires: 02/15/2025 Start: 02-16-2024 End: 02-16-2024 ambulatory 02/16/2024 8:30 AM EST Initial [facility] [address] [place] [id number] [facility] Start: 02-16-2024 End: 02-16-2024 Professional / ancillary services management 02/16/2024 8:00 AM EST Ancillary Procedure [facility] [address] [place] [id number] [facility] Start: 11-08-2023 COVID-19 Vaccine ( season) COVID-19 Vaccine () [facility] Start: 11-08-2023 Influenza vaccination [facility] Start: 10-14-2023 End: 10-14-2023 Patient encounter procedure 10/14/2023 3:15 PM EDT Office Visit [facility] [address] [place] [phone] Jhonny Issa MD [address] [facility], [address] [phone] [facility] Start: 09-05-2023 Bacteria identified in Urine by Culture [facility] Start: 07-22-2023 End: 07-22-2023 Patient encounter procedure 07/22/2023 3:15 PM EDT Office Visit [facility] [address] [place] [phone] Jhonny Issa MD [address] [facility], [address] [id number] [facility] Start: 04-27-2023 End: 04-27-2023 Patient encounter procedure 04/27/2023 3:15 PM EST Office Visit [facility] [address] [place] [address] [phone] Jhonny Issa MD [address] [facility], [address] [id number] [facility] Start: 03-09-2023 Behavioral Health Screening Behavioral Health Screening [facility] Start: 03-04-2023 End: 03-04-2023 Patient encounter procedure 03/04/2023 8:40 AM EST Office Visit [facility] [id number] [place] [phone] [place] [address] [facility] [address] [place] [address] [facility] Start: 02-19-2023 End: 02-20-2024 Drugs of abuse screen W Reflex confirm panel - Urine [facility] Service Area Work Phone: Comment on above: Expected: 02/19/2023 (Approximate), Expires: 02/20/2024 Start: 02-19-2023 End: 02-19-2023 Patient encounter procedure 02/19/2023 10:15 AM EST Office Visit [facility] [address] [facility] [address] [facility] [phone] Jhonny Issa MD [address] [facility], [facility] [address] [place] [address] [facility] Start: 11-07-2022 COVID-19 Vaccine ( season) COVID-19 Vaccine ( season) [facility] Start: 11-07-2022 Influenza vaccination Influenza Vacc ine (#1) [facility] Start: 01-21-2022 FUV, Provider: Luz Aguilar, Status: Pen, Time: 3:40 PM FUV, Provider: Luz Aguilar, Status: Pen, Time: 3:40 PM [id number] 200 Work Phone: Start: 01-20-2022 [id number], Provider: Bisi Prabhakar, Status: Pen, Time: 5:00 PM [id number], Provider: Bisi Prabhakar, Status: Pen, Time: 5:00 PM [facility] Work Phone: Start: 01-13-2022 [id number], Provider: Bisi Prabhakar, Status: Pen, Time: 5:00 PM [id number], Provider: Bisi Prabhakar, Status: Pen, Time: 5:00 PM [facility] Work Phone: Start: 01-08-2022 [id number], Provider: Bisi Prabhakar, Status: Pen, Time: 4:00 PM [id number], Provider: Bisi Prabhakar, Status: Pen, Time: 4:00 PM [facility] Work Phone: Start: 01-01-2022 [id number], Provider: Bisi Prabhakar, Status: Pen, Time: 4:00 PM [id number], Provider: Bisi Prabhakar, Status: Pen, Time: 4:00 PM [facility] Work Phone: Start: 12-25-2021 [id number], Provider: Bisi Prabhakar, Status: Pen, Time: 4:00 PM [id number], Provider: Bisi Prabhakar, Status: Pen, Time: 4:00 PM [facility] Work Phone: Start: 12-17-2021 [id number], Provider: Bisi Prabhakar, Status: Pen, Time: 5:00 PM [id number], Provider: Bisi Prabhakar, Status: Pen, Time: 5:00 PM [facility] Work Phone: Start: 11-07-2021 Influenza vaccination INFLUENZA (#1) [facility] Start: 10-16-2021 NPV, Provider: Nafisa Bermudez, Status: Pen, Time: 1:00 PM NPV, Provider: Nafisa Bermudez, Status: Pen, Time: 1:00 PM [id number] 200 Work Phone: Start: 10-08-2021 [id number], Provider : Rafaela Arguello, Status: Pen, Time: 11:40 AM VIRFUVHOME, Provider: Rafaela Arguello, Status: Pen, Time: 11:40 AM [id number] 200 Work Phone: Start: 09-30-2021 FUV, Provider: Luz Aguilar, Status: Pen, Time: 1:40 PM FUV, Provider: Luz Aguilar, Status: Pen, Time: 1:40 PM [facility] Work Phone: Start: 09-18-2021 [id number], Provider: Bisi Prabhakar, Status: Pen, Time: 10:00 AM [id number], Provider: Bisi Prabhakar, Status: Pen, Time: 10:00 AM [facility] Work Phone: Start: 09-06-2021 [id number], Provider: Bisi Prabhakar, Status: Pen, Time: 8:00 AM [id number], Provider: Bisi Prabhakar, Status: Pen, Time: 8:00 AM [facility] Work Phone: Start: 08-02-2021 FUV, Provider: Luz Aguilar, Status: Pen, Time: 8:20 AM FUV, Provider: Luz Aguilar, Status: Pen, Time: 8:20 AM [facility] Work Phone: Start: 06-21-2021 NPV, Provider: Luz Aguilar, Status: Pen, Time: 8:00 AM NPV, Provider: Luz Aguilar, Status: Pen, Time: 8:00 AM [facility] Work Phone: Start: 03-27-2021 COVID-19 VACCINE (3 - Booster for Pfizer series) COVID-19 VACCINE (3 - Booster for Pfizer series) [facility] Start: 12-20-2020 COVID-19 Vaccine (3 - Pfizer series) COVID-19 Vaccine (3 - Pfizer series) [facility] Start: 01-09-2020 FFD mammogram Breast screening Mamm - Ultrasound of Breast [place] [address] Work Phone: Start: 10-26-2017 HPV TESTING HPV TESTING [facility] Start: 10-26-2009 DTaP/Tdap/Td Vaccine s (1 - Tdap) DTaP/Tdap/Td Vaccines (1 - Tdap) [facility] Start: 10-26-2008 PAP TESTING PAP TESTING [facility] Start: 10-26-2008 Screening for malignant neoplasm of cervix [facility] Start: 10-26-2006 DTaP,Tdap and Td Vaccines (1 - Tdap) DTaP,Tdap and Td Vaccines (1 - Tdap) [facility] Start: 10-26-2006 Hepatitis B Vaccine (1 of 3 - 19+ 3-dose series) Hepatitis B Vaccine (1 of 3 - 19+ 3-dose series) [facility] Start: 10-26-2006 Hepatitis B Vaccines (1 of 3 - 19+ 3-dose series) Hepatitis B Vaccines (1 of 3 - 19+ 3-dose series) [facility] Start: 10-26-2006 Urine microalbumin profile [facility] Start: 10-26-2005 Adult BMI Screening Adult BMI Screen ing [facility] Start: 10-26-2005 [facility] Start: 10-26-2005 Hepatitis C screening Hepatitis C [facility] Start: 10-26-2005 HIV SCREENING HIV SCREENING [facility] Start: 10-26-2005 HIV screening HIV Screening [facility] Start: 10-26-2000 Varicella vaccination Varicell a Vaccines (1 of 2 - 13+ 2-dose series) [facility] Start: 1999 Adult depression screening assessment DEPRESSION SCREENING [facility] Start: 1999 Tobacco Screening Tobacco Screening [facility] Start: 10-26-1988 MMR Vaccines (1 of 1 - Standard series) MMR Vaccines (1 of 1 - Standard series) [facility] Start: 10-26-1988 Varicella vaccination Varicell a Vaccines (1 of 2 - 2-dose childhood series) [facility] Start: 1987 HEPATITIS B (1 of 3 - 3-dose series) HEPATITIS B (1 of 3 - 3-dose series) [facility] Start: 1987 Hepatitis B Vaccines (1 of 3 - 3-dose series) Hepatitis B Vaccines (1 of 3 - 3-dose series) [facility] Start: 1987 HIV screening HIV Screening [facility] Start: 1987 Yearly Adult Physical Yearly Adult P [facility] Bacteria identified in Urine by Culture Urine culture Microbiology Routine Missed menses Ordered: 02/16/2024 [facility] Comment on above: Ordered: 02/16/2024 CBC W Auto Differential panel - Blood CBC and differential Lab Routine Missed menses , unspecified gestational age Ordered: 02/16/2024 [facility] Comment on above: Ordered: 02/16/2024 CHLAMYDIA TRACHOMATI S (GENITO/STI) CHLAMYDIA TRACHOMATIS (GENITO/STI) Lab Routine Exposure to STD Ordered: 04/14/2024 [facility] Comment on above: Ordered: 04/14/2024 Hemoglobin A1c/Hemoglobin.total in Blood Hemoglobin A1c Lab Routine Missed menses , unspecified gestational age Ordered: 02/16/2024 [facility] Comment on above: Ordered: 02/16/2024 End: 08-15-2025 Hemoglobin A1c/Hemoglobin.total in Blood Hemoglobin A1c Lab Routine Gestational diabetes requiring insulin 1 Occurrences starting 08/15/2024 until 08/15/2025 [facility] Work Phone: Comment on above: 1 Occurrences starti ng 08/15/2024 until 08/15/2025 Hepatitis B virus surface Ag [Presence] in Serum or Plasma by Immunoassay Hepatitis B surface antigen Lab Routine Missed menses , unspecified gestational age Ordered: 02/16/2024 [facility] Comment on above: Ordered: 02/16/2024 Hepatitis C virus Ab [Presence] in Serum or Plasma by Immunoassay Hepatitis C antibody Lab Routine Missed menses , unspecified gestational age Ordered: 02/16/2024 [facility] Comment on above: Ordered: 02/16/2024 HIV-1/HIV-2 antigen/antibody combination immunoassay HIV-1 and HIV-2 antibodies Lab Routine Missed menses , unspecified gestational age Ordered: 02/16/2024 [facility] Comment on above: Ordered: 02/16/2024 Human papilloma viru s DNA [Presence] in Unspecified specimen by Probe with amplification HPV DNA probe, amplified Microbiology Routine Well woman exam with routine gynecological exam Ordered: 04/14/2024 [facility] Work Phone: Comment on above: Ordered: 04/14/2024 Neisseria gonorrhoea e DNA [Presence] in Unspecified specimen by GENTRY with probe detection Neisseria gonorrhea DNA probe, direct Lab Routine Exposure to STD Ordered: 04/14/2024 [facility] Comment on above: Ordered: 04/14/2024 Reagin Ab [Presence] in Serum by RPR RPR Lab Routine Missed menses , unspecified gestational age Ordered: 02/16/2024 [facility] Comment on above: Ordered: 02/16/2024 Rubella antibody, IgG Rubella an tibody, IgG Lab Routine Missed menses , unspecified gestational age Ordered: 02/16/2024 [facility] Comment on above: Ordered: 02/16/2024 SURESWAB(R) ADVANCED VAGINITIS PLUS, TMA SURESWAB(R) ADVANCED VAGINITIS PLUS, TMA Pathology and Cytology Routine Vaginal discharge Ordered: 04/14/2024 [facility] Comment on above: Ordered: 04/14/2024 [id number] 200 Work Phone: NEGATED: Highlighted row has been ruled out! Planned Goals not documented [id number] 200 Work Phone: Immunizations Immunization Date Immunization Notes Care Provider Elina flores 10-25-2020 Pfizer-BioNTech COVI D-19 Vacc 30 MCG/0.3ML Intramuscular Suspension Rafaela Arguello Work Phone: [id number] 200 Work Phone: 10-04-2020 Pfizer-BioNTech COVI D-19 Vacc 30 MCG/0.3ML Intramuscular Suspension Rafaela Arguello Work Phone: [id number] 200 Work Phone: Payers Date Payer Category Payer Medicaid [facility] [id number] 2024 Medicaid [id number] 2024 Commercial Managed C [facility] [employer] [employer] [id number] 2023 Medicaid MEDICAID [facility] [id number] 2023 Medicaid [id number] 2023 Self-pay [id number] 2022 Managed Care (Private) [facility] [id number] 2022 Private Health Insurance [id number]. [id number] 2020 Unknown 1987 Unknown [id number] 2.16.840.1.841474.3.579.2. 593 1987 Unknown [id number] 2.16.840.1.984130.3.579.2. 593 1987 Unknown [id number] 2.16.840.1.863301.3.579.2. 593 1987 Unknown [id number] 2.16.840.1.579292.3.579.2. 593 1987 Unknown [id number] 2.16.840.1.717489.3.579.2. 593 1987 Unknown [id number] 2.16.840.1.479688.3.579.2. 356 1987 Unknown [id number] 2..840.1.638950.3.579.2. 356 1987 Unknown [id number] 2.16.840.1.189858.3.579.2. 356 1987 Unknown [id number] 2.16.840.1.092510.3.579.2. 356 1987 Unknown [id number] 2.16.840.1.085211.3.579.2. 356 1987 Unknown [id number] 2.16.840.1.105490.3.579.2. 1244 1987 Unknown [id number] 2.16.840.1.382767.3.579.2. 1244 1987 Unknown [id number] 2.16.840.1.522418.3.579.2. 4 1987 Unknown [id number] 2.16.840.1.873420.3.579.2. 1244 1987 Unknown [id number] 2.16.840.1.779805.3.579.2. 1244 1987 Unknown [id number] 2.16.840.1.652069.3.579.2. 1243 1987 Unknown [id number] 2.16.840.1.491996.3.579.2. 1243 1987 Unknown [id number] 2.16.840.1.922596.3.579.2. 1243 1987 Unknown [id number] 2.16.840.1.767408.3.579.2. 1286 1987 Unknown [id number] 2.840.1.990644.3.579.2. 1286 1987 Unknown [id number] 2.840.1.176255.3.579.2. 1258 1987 Unknown [id number] 2.840.1.845549.3.579.2. 9 1987 Unknown [id number] 2.840.1.688535.3.579.2. 1258 1987 Unknown [id number] 2.840.1.154511.3.579.2. 1259 1987 Unknown [id number] 2.840.1.883094.3.579.2. 1258 1987 Unknown [id number] 2.840.1.060706.3.579.2. 1259 1987 Unknown [id number] 2.840.1.200138.3.579.2. 1259 1987 Unknown [id number] 2.840.1.524228.3.579.2. 1259 1987 Unknown [id number] 2.840.1.061322.3.579.2. 1259 1987 Unknown [id number] 2.16840.1.277748.3.579.2. 9 1987 Unknown [id number] 2.840.1.074133.3.579.2. 1259 1987 Unknown [id number] 2.840.1.942374.3.579.2. 1259 1959 Unknown [id number] Unknown [id number] 2.16.840.1.649915.3.579.2. 531 Unknown [id number] 2.16.840.1.283874.3.579.2. 531 Social History Date Type Detail Facility Assertion Tobacco smoking consumption unknown (finding) [id number] Work Phone: Start: 12-03-2022 End: 08-09-2024 Non-smoker Non-smoker [facility] Start: 02-19-2023 End: 08-15-2024 Tobacco smoking status NHIS Never smoked tobacco [facility] Start: 10-17-2021 End: 09-01-2023 Alcohol intake Current drinker of alcohol (finding) [facility] Start: 05-14-2010 History SDOH Alcohol Comment occasional [facility] Start: 1987 Sex Assigned At Not on file C [facility] Start: 1987 Sex Assigned At Female F [facility] Start: 12-03-2022 End: 08-09-2024 Sex Assigned At [facility] Tobacco smoking stat NHIS Tobacco smoking consumption unknown [facility] Start: 12-09-2022 End: 01-05-2024 Exposure to SARS-CoV-2 (event) Not sure [facility] Start: 02-19-2023 End: 08-15-2024 Tobacco use and exposure Smokeless tobacco non-user [facility] Work Phone: Start: 02-19-2023 End: 01-05-2024 Alcohol intake Defer [facility] Work Phone: National Score (1-100), lower number is lower risk [address] Work Phone: Start: 01-09-2024 [facility] Start: 03-09-2024 End: 08-03-2024 Sex Female (finding) [facility] Start: 08-15-2024 Alcoholic beverage intake Ex-drinker (finding) [employer] Medical Equipment Procedure Code Equipment Code Equipment Origin al Text Equipment Identifier Dates 1 strip by In Vi tro route Daily Use in the morning prior to breakfast, 1 hour after each meal for a total of 4times daily. [id number] Start: 07-12-2024 End: 08-11-2024 1 each by In Vit ro route Daily Use to check FSBS four times daily [id number] Start: 07-12-2024 End: 08-11-2024 Use as instructed [id number] Start: 08-02-2024 Use to inject insulin once daily as prescribed. Use a new pen needle for each insulin pen injection. [id number] Start: 08-09-2024 Goals Date Patient Goal Desired Activity /State Personal health goal Functional Status Date Assessment Result Facility NEGATED: Highlighted row Functional performance Functional status health issues are not documented Disease [id number] Work Phone: Mental Status Date Assessment Result Facility NEGATED: Highlighted row Cognitive function [Interpretation] Cognitive status health issues are not documented Disease [id number] Work Phone: Clinical Notes 03-04-2012 to 08-17-2024 Telephone Encounter - Charlene Nguyen CMA - 08/17/2024 11:31 AM EDTTelephone Encounter - Charlene Nguyen CMA - 08/17/2024 11:31 AM Elfego Nixon LPN - 08/17/2024 11:00 AM EDTPatient Instructions Note Date & Type Note Facility 08-17-2024 Miscellaneous Notes LIVESTOCK EXHIBITOR CALLED PATIENT. NO ANSWER. LEFT VOICEMAIL ASKING THE PATIENT TO CALL US TO GET SCHEDULED FOR HER 1-2 WEEK FOLLOW UP WITH LUCRETIA VILLAFANA AT THE PROVIDER'S REQUEST. LEFT NUMBER [phone] AND INSTRUCTED HER TO SELECT OPTION 3 TO REACH ONE OF OUR SCHEDULERS TO GET SCHEDULED. documented in this encounter [facility] 08-17-2024 Telephone encounter Note LIVESTOCK EXHIBITOR CALLED PATIENT. NO ANSWER. LEFT VOICEMAIL ASKING THE PATIENT TO CALL US TO GET SCHEDULED FOR HER 1-2 WEEK FOLLOW UP WITH LUCRETIA VILLAFANA AT THE PROVIDER'S REQUEST. LEFT NUMBER [phone] AND INSTRUCTED HER TO SELECT OPTION 3 TO REACH ONE OF OUR SCHEDULERS TO GET SCHEDULED. [facility] 08-17-2024 History of Present illness Narrative Reason for Appointment: Patient ID: Michael Weller is a 38 y.o. female who presents for Routine Visit Patient presents today for Return OB appointment. MEDICATIONS Current Outpatient Medications Medication Instructions Alcohol Swabs (Alcohol Prep Pad) 70 % pads 1 Pad, Topical, Daily, Use four times daily to check FSBS. Blood Glucose Monitoring Suppl (Ayasdi Glucometer) w/Device kit 1 kit, Does not [...] nursing note reviewed. Exam conducted with a clinical project manager present. Vitals: Estimated body mass index is 40 kg/m as calculated from the following: Height [...] blood pressures and glucose control. Pt seeing MFM for glucose and insulin control. No orders of the defined types were placed in this encounter. Follow Up: Patient is to return to office in 2 week for routine OB appointment. Documented by Bisi Nixon LPN on behalf of: Matt Stapleton DO documented in this encounter [facility] 08-15-2024 History of Present illness Narrative Maternal- Medicine Consultation VIDEO Patient is present at work, provider present at [facility] HISTORY OF PRESENT ILLNESS: Michael Weller is a 38 y.o. female at [...] No chest pain, SOB. Had elevated BP of 140 at her NST Thursday, had pre-e labs drawn by her OB today and reports that her 24hr urine protein was 322, Plts were 148, Cr 0.4, AST [...] Rfl: pen needle, diabetic 32 gauge x 5/32 needle, Use to inject insulin once daily as prescribed. Use a new pen needle for each insulin pen injection., Disp: 100 each, Rfl: 1 polysaccharide iron complex 180 mg iron capsule, Take 1 tablet by mouth in the morning., Disp: , Rfl: promethazine (PHENERGAN) 12.5 mg tablet, Take 1 tablet (12.5 mg total) by mouth every 6 (six) hours as needed for nausea or vomiting., Disp: , [...] abdominal pain, nausea, vomiting, vaginal bleeding, and vaginal discharge PHYSICAL EXAMINATION: Gen: NAD DISCUSSION Gestational diabetes is a is a state of carbohydrate intolerance with subsequently insulin resistance and hyperglycemia. This is a malfunction or dysfunction of glucose sensors in the liver with inappropriate release of glucose followed by hyperinsulinemia followed by normal insulin secretion and then relatively deficiency in insulin secretion resulting in [...] predictive of increased fat mass in the women s offspring. Increased fat mass has been shown [...] signs/symptoms of hypoglycemia, and examples of treatment of hypoglycemia (15/15 rule). Discussed her current diet and her [...] which if diagnosed, would alter timing of delivery - Discuss delivery if estimated weight is [...] to 148 today. She is having LE edema, headaches, and spots in vision. Stressed importance she go to nearest OB triage - she said she would do so. Called patient's OB office - I left a voicemail Follow up with Maternal- Medicine pending patient's evaluation today I asked her to keep sending values to us weekly by e-mail to: [email or web address] or by fax to: [phone] Lucretia Villafana PA-C Maternal- Medicine Office phone: [phone] Lucretia Villafana PA-C 08/15/24 0905 [facility] History of Present illness Narrative Reason for Appointment: Patient ID: Michael Weller is a 38 y.o. female who presents for Routine Visit Patient presents today for Return OB appointment. MEDICATIONS Current Outpatient Medications Medication Instructions Alcohol Swabs (Alcohol Prep Pad) 70 % pads 1 Pad, Topical, Daily, Use four times daily to check FSBS. Blood Glucose Monitoring Suppl ([employer]le[employer]-Paytopia Glucometer) w/Device kit 1 kit, Does not [...] nursing note reviewed. Exam conducted with a clinical project manager present. Vitals: Estimated body mass index is [...] Matt Stapleton DO documented in this encounter [facility] 07-12-2024 History of Present illness Narrative Reason for Appointment: Patient ID: Michael Weller is a 38 y.o. female who presents for Routine Visit Patient presents today for Return OB appointment. MEDICATIONS Current Outpatient Medications Medication Instructions Alcohol Swabs (Alcohol Prep Pad) 70 % pads 1 Pad, Topical, Daily, Use four times daily to check FSBS. Blood Glucose Monitoring Suppl (D-Paytopia Glucometer) w/Device kit 1 kit, Does not [...] nursing note reviewed. Exam conducted with a clinical project manager present. Vitals: Estimated body mass index is [...] Matt Stapleton DO documented in this encounter [facility] 06-20-2024 History of Present illness Narrative Reason [...] nursing note reviewed. Exam conducted with a clinical project manager present. Vitals: Estimated body mass index is [...] of: ARIELLA Duran documented in this encounter [facility] 04-14-2024 History of Present illness Narrative Reason [...] nursing note reviewed. Exam conducted with a clinical project manager present. Vitals: Estimated body mass index is [...] obtained without difficulty and patient was given [facility] order to have obtained. Orders Placed [...] of: RAE Teixeira documented in this encounter [facility] 03-16-2024 History of Present illness Narrative Reason [...] nursing note reviewed. Exam conducted with a clinical project manager present. Vitals: Estimated body mass index is [...] and concerns were answered. Pt was offered MFM referral for AMA, pt considering. Orders Placed This Encounter Procedures POCT urinalysis dipstick manually resulted Follow Up: Patient is to return in 4 weeks for routine OB appointment. Documented by Bisi Nixon LPN on behalf of: Matt Stapleton DO documented in this encounter [facility] 02-16-2024 History of Present illness Narrative Reason [...] Cathy Dick LPN documented in this encounter [facility] 01-05-2024 History of Present illness [...] Ketones, Urine NEGATIVE NEGATIVE mg/dl POC Specific Powell, Urine 1.010 1.005 - 1.035 POC Blood, [...] pyelonephritis, Macrobid prescribed. She will take Azo [id number], acetaminophen, fluids, etc. Follow-up as needed. Patient [...] Davison 12:46 PM documented in this encounter [facility] Work Phone: 01-05-2024 Instructions Maryann Davison - 01/05/2024 11:45 AM EDT No signs of acute pyelonephritis, Macrobid prescribed. She will take Azo lmzf-juv-ppywvyr, acetaminophen, fluids, etc. Follow-up as needed. Patient declined urine culture after counseling. documented in this encounter [facility] Work Phone: 09-01-2023 Note HNO ID: [id number] Author: ROULA BLEDSOE APRN.[employer] Service: ? Author Type: Nurse Practitioner Type: [...] Past Histories independently gathered by the clinical respiratory support technician and the remaining scribed note accurately describes my personal service to the patient. Roula Bledsoe APRN.MARCELINA September 01, 2023 11:26 AM Medical Decision Making: Problems: Moderate: 2+ stable chronic illnesses Risk: Low: Low risk from testing/treatment Medical Decision Making Level: 3 - Low [facility] 09-01-2023 History of Present illness Narrative SKIN [...] Past Histories independently gathered by the clinical respiratory support technician and the remaining scribed note [...] 07/22/2023 3:01 PM documented in this encounter [facility] Work Phone: 04-27-2023 History of Present illness [...] 04/27/2023 4:18 PM documented in this encounter [facility] Work Phone: 03-04-2023 History of Present illness [...] Karolina Man DO documented in this encounter [facility] Work Phone: 02-19-2023 History of Present illness Narrative Michael Weller 37 y.o. SUBJECTIVE HPI Michael 37-year-old young lady who was seen today for evaluation of a possible attention deficit disorder difficulty at work at home. 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 Signatures Electronically signed by : Bisi Prabhakar PT DPT [facility]; Oct 16 2022 10:12AM EST (Author) 3LM 07-02-2022 Evaluation note Encounter Date Diagnosis Assessment [...] no improvement of pain. Given return precautions. 0-[employer]com Other 12-05-2022 Chief complaint Narrative - Reported* [...] visit to discuss anxiety follow up Jose Winkler Work Phone: 1(797) 921-279408-11-2022 History of Present illness Narrative* Roula Bledsoe, HOSPITALIST NOCTURNIST PHYSICIAN.[employer] - 10/17/2021 12:40 PM EDT SKIN EXAM [...] Past Histories independently gathered by the clinical respiratory support technician and the remaining scribed note accurately describes my personal service to the patient. Roula Bledsoe APRN.CNP October 17, 2021 1:05 PM I spent a total of 15 minutes on the date of the service which included preparing to see the patient, [id number]-[id number]-eiij patient care, completing clinical documentation, performing a [...] breast biopsy: right breast biopsy 2018 at [facility]- fibroepithelial lesion consistent with fibroadenoma * - breast surgery: no * - breast cancer:no * Menarche: 15 * AFLB: 22 * Menopause: no * HRT:no * Family history: both grandfathers with lung cancer * no history of breast or ovarian cancer Jori Laura Work Phone: 1(148) 838-265308-08-2022 History of Present illness Narrative* MICHAEL WELLER [...] breast biopsy: right breast biopsy 2018 at [facility]- fibroepithelial lesion consistent with fibroadenoma * - breast surgery: no * - breast cancer:no * Menarche: 15 * AFLB: 22 * Menopause: no * HRT:no * Family history: both grandfathers with lung cancer * no history of breast or ovarian cancer Jori Laura Work Phone: 1(388) 756-948908-02-2022 Chief complaint Narrative - Reported* An interactive [...] trazodone not helping Jose [address] Work Phone: 1(539) 618-781408-02-2022 Chief complaint Narrative - Reported* An interactive [...] visit to discuss insomnia, trazodone not helping [facility] Work Phone: 1([phone]) 660-466205-06-2022 [place]The [place], [place] NAME: MICHAEL WELLER DATE OF : MEDICAL REC#: [id number] MARKETING PROFESSOR: [id number] [facility], TRANSADMIT DATE: 07/12/2021 09:46:00 FIELD PIPE LINES SUPERVISOR DATE: 07/13/2021 21:00 DICTATING PHYSICIAN: MATT STAPLETON DICTATION DATE: 07/12/2021 12:00 OPERATIVE NOTE OPERATION DATE: 07/12/2021 PROCEDURE: Diagnostic laparoscopy. PREOPERATIVE DIAGNOSIS: Dyspareunia. POSTOPERATIVE DIAGNOSIS: Dyspareunia. ANESTHESIA: General. SURGEON: Matt Stapleton D.O. JAVA WEB ARCHITECT: CLIFF Durán URINE OUTPUT: Yellow and clear. [...] Approved by: DR MATT STAPLETON . 07/15/2021 15:07:00[facility]12-27-2012 History general Narrative - Reported* Type Description Date Medical History 03-04-12 Pathology Report [facility] Surgical History left hip surgery Surgical History tonsillectomy and adenoidectomy Surgical History cholecystectomy Surgical History wisdom teeth Surgical History tumor 0-6.com Other Evaluation note* Diagnosis Lentigines- Primary Other dyschromia Multiple benign nevi Benign neoplasm of skin, site unspecified Valles angioma Nevus, non-neoplastic Exposure to tanning bed, sequela Hx of malignant melanoma Personal history of malignant melanoma of skin Dermatofibroma Benign neoplasm of skin, site unspecified [facility]No assessment information available[facility] Work Phone: Evaluation note* Diagnosis Abnormal mammogram Abnormal mammogram, unspecified documented in this encounter [facility] Work Phone: Evaluation note* Diagnosis Lump in female breast Lump or mass in breast documented in this encounter [facility] Work Phone: Evaluation note* Diagnosis Encephalopathy- Primary Unspecified encephalopathy Anxiety Anxiety state, unspecified Attention deficit hyperactivity disorder (ADHD), predominantly inattentive type documented in this encounter [facility] Work Phone: Evaluation note* Diagnosis Anxiety Anxiety state, unspecified documented in this encounter [facility] Work Phone: Evaluation note* Diagnosis Encephalopathy- Primary Unspecified encephalopathy Attention deficit hyperactivity disorder (ADHD), 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, unspecified Anxiety Anxiety state, unspecified documented in this encounter [facility] Work Phone: Evaluation note* Diagnosis Dermatofibroma- Primary Benign neoplasm of skin, site unspecified Lentigines Other dyschromia Multiple benign nevi Benign neoplasm of skin, site unspecified Valles angioma Nevus, non-neoplastic Hx of malignant melanoma Personal history of malignant melanoma of skin [facility] Diagnosis Onset Date Resolution Status UTI (urinary tract infection) [facility] Work Phone: Evaluation note* Diagnosis Acute lower UTI- Primary Urinary tract infection, site not specified Urine frequency documented in this encounter [facility] Work Phone: Evaluation note* Diagnosis Missed menses , unspecified gestational age Encounter for supervision of normal first in first trimester documented in this encounter [facility]* Diagnosis First trimester state, incidental 11 weeks gestation of Antepartum multigravida of advanced maternal age documented in this encounter [facility] note* Diagnosis 15 weeks gestation of Second trimester state, incidental Well woman exam with routine gynecological exam Routine gynecological examination Screening, , for anatomic survey Encounter for anatomic survey Exposure to STD Vaginal discharge Leukorrhea, not specified as infective Nausea Nausea alone documented in this encounter [facility] HealthcareEvaluation note* Diagnosis Diabetes mellitus screening Screening for diabetes mellitus 25 weeks gestation of Second trimester state, incidental Antepartum multigravida of advanced maternal age documented in this encounter [facility] HealthcareEvaluation note* Diagnosis Third trimester state, incidental 28 weeks gestation of Multigravida of advanced maternal age in third trimester Gestational diabetes mellitus (GDM), antepartum, gestational diabetes method of control unspecified Elevated glucose tolerance test Impaired glucose tolerance test documented in this encounter [facility] Healthcare[facility]* Diagnosis 31 weeks gestation of Third trimester state, incidental Gestational diabetes mellitus (GDM), antepartum, gestational diabetes method of control unspecified documented in this encounter [facility] Healthcare[facility] note* Diagnosis Gestational diabetes requiring insulin- Primary Abnormal maternal glucose tolerance, complicating , childbirth, or the puerperium, unspecified as to episode of care documented in this encounter [facility]* Diagnosis Third trimester state, incidental 33 weeks gestation of documented in this encounter [facility] [...] area gets bumped. 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 No regular exercise. [id number] 200 Work Phone: History of Present illness [...] area gets bumped. 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 No regular exercise. [facility] Work Phone: History of Present illness [...] area gets bumped. 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 No regular exercise. [id number] 200 Work Phone: History of Present illness [...] discharge from lumps. 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 [id number] 200 Work Phone: History of Present illness [...] discharge from lumps. 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 [facility] Work Phone: History of Present illness [...] low [facility] Work Phone: History of Present illness Narrative* [...] urology for painful intercourse. Planning physical therapy. [id number] 200 Work Phone: History of Present illness [...] urology for painful intercourse. Planning physical therapy. [facility] Work Phone: History of Present illness [...] been able to have these done yet. [id number]-Dlhwnbsy 200 Work Phone: Instructions* Name Dates Details Instructions not documented WF-Sufnbkgtfksfzb-Qkwuwiis Work Phone: InstructionsNot on filedocumented in this encounter [facility] SystemInstructionsNot on filedocumented in this encounter [facility] SystemInstructionsNot on filedocumented in this encounter [facility] Family History No Family History Records FoundUnknown [...] [place] [address] [place] [address] Referral ID Status Reason Start Date Expiration Date Visits Requested Visits Authorized [id number] Pending Review Perform Procedure 3 06/17/2023 1 1 Additional Source Comments INFORMATION SOURCE (unrecogn ized section and content) DATE CREATED AUTHOR 07/19/2021 [facility] DATE CREATED AUTHOR AUTHOR'S ORGANIZ ATION 10/16/2021 [facility] DATE CREATED AUTHOR AUTHOR'S ORGANIZ ATION 03/02/2022 [facility] ical Center DATE CREATED AUTHOR AUTHOR'S ORGANIZ ATION 10/17/2022 [facility] DATE CREATED AUTHOR AUTHOR'S ORGANIZ ATION 12/11/2022 [facility] DATE CREATED AUTHOR AUTHOR'S ORGANIZ ATION 07/25/2023 [facility] DATE CREATED AUTHOR AUTHOR'S ORGANIZ ATION 09/03/2023 [facility] DATE CREATED AUTHOR AUTHOR'S ORGANIZ ATION 11/14/2023 [facility] DATE CREATED AUTHOR AUTHOR'S ORGANIZ ATION 01/06/2024 [facility] DATE CREATED AUTHOR AUTHOR'S ORGANIZ ATION 03/10/2024 [facility] DATE CREATED AUTHOR AUTHOR'S ORGANIZ ATION 08/16/2024 [facility] DATE CREATED AUTHOR AUTHOR'S ORGANIZ ATION 08/19/2024 [facility] d[facility] Specialists EPIC Reason for Visit (unrecogniz ed section and content) Reason Comments Full Body Skin Check Specialty Diagnoses / Procedures Referred By Contac t Referred To Contact Radiology Diagnoses Abnormal mammogram Procedures BI mammo bilateral diagnostic tomosynthesis [place] [address] [address] Referral ID Status Reason Start Date Expiration Date Visits Requested Visits Authorized [id number] Pending Review Perform Procedure 12/03/2022 06/01/2023 1 1 Specialty Diagnoses / Procedures Referred By Contac t Referred To Contact Radiology Diagnoses Lump in female breast Procedures BI [place] [address] [facility] [address] [place] [address] Referral ID Status Reason Start Date Expiration Date Visits Requested Visits Authorized [id number] Pending Review Perform Procedure 3 06/17/2023 1 1 Reason Comments New Patient Visit NPV- ADHD Specialty Diagnoses / Procedures Referred By Contac t Referred To Contact Neurology Diagnoses Anxiety Procedures NE OFFICE/OUTPATIENT NEW HIGH MDM 60-74 [place] [address] [address] Jhonny Issa MD [address] [facility], [facility] [address] [place] [address] Referral ID Status Reason Start Date Expiration Date Visits Requested Visits Authorized [id number] Pending Review Specialty Services Required 12/03/2022 06/01/2023 [...] Care Teams (unrecognized sec tion and content) Interior Decorator Relationship Specialty Start Date End Date Danielle Infante [address] [facility] [address] [place] [address] PCP - General Family Practice 06/10/16 Team Status: Inactive Member Role Status Dates Danielle Infante DO Primary Care Provider Active Kp Alvares DO [facility] Attending Provider Active Team Status: Active Member Role Status Dates Danielle Infante DO Primary Care Provider Active Team Status: Inactive Member Role Status Dates Dainelle Infante DO Primary Care Provider Active Bolivar Sherman NP-C Attending Provider Activ e Interior Decorator Relationship Specialty [place] [address] [facility] [address] [place] [address] PCP - General Family Medicine 10/29/22 Interior Decorator Relationship Specialty [place] [address] [facility] [address] [place] [address] PCP - General Family Medicine 10/29/22 Interior Decorator Relationship Specialty [place] [address] [facility] [address] [place] [address] PCP - General Family Medicine 10/29/22 Interior Decorator Relationship Specialty [place] [address] [address] PCP - General Family Medicine 10/29/22 Jhonny Issa MD [address] [facility], [address] [address] Consulting Physician Neurology 02/19/23 Interior Decorator Relationship Specialty Start [place] [address] [address] PCP - General Family Medicine 10/29/22 Jhonny Issa MD [address] [facility], [address] [address] Consulting Physician Neurology 02/19/23 Interior Decorator Relationship Specialty Start [place] [address] [address] PCP - General Family Medicine 10/29/22 [place] [address] [address] PCP - MMO ACO PCP 03/09/23 Jhonny Issa MD [address] [facility], [address] [address] Consulting Physician Neurology 02/19/23 Interior Decorator Relationship Specialty Start Date End Date Danielle Infante DO [address] [facility] [address] [place] [address] PCP - General Family Medicine 06/10/16 Team [...] September 05, 2023 End: September 05, 2023 Interior Decorator Relationship Specialty Start Date End Date Jhonny Issa MD [address] [facility], [facility] [address] [place] [address] Consulting Physician Neurology 02/19/23 Interior Decorator Relationship Specialty Start Date End Date Danielle Infante DO [address] [facility] [address] [place] [id number] PCP - General Family Medicine 07/15/22 Interior Decorator Relationship Specialty Start Date End Date Danielle Infante DO [address] [facility] [address] [place] [id number] PCP - General Family Medicine 07/15/22 Interior Decorator Relationship Specialty Start Date End Date Danielle Infante DO [address] [facility] [address] [place] [address] PCP - General Family Medicine 07/15/22 Interior Decorator Relationship Specialty Start Date End Date Danielle Infante DO [address] [facility] [address] [place] [address] PCP - General Family Medicine 07/15/22 Interior Decorator Relationship Specialty Start Date End Date Danielle Infante DO [address] [place] [address] PCP - General Family Medicine 07/15/22 Interior Decorator Relationship Specialty Start Date End Date Danielle Infante DO [address] [place] [address] PCP - General Family Medicine 07/15/22 Team Status: Inactive Member Role Status Dates Matt Stapleton DO Attending Provider Active Start : March 08, 2024 End: March 08, 2024 Interior Decorator Relationship Specialty Start Date End Date Danielle Infante DO [address] [place] [address] PCP - General Family Medicine 07/15/22 Interior Decorator Relationship Specialty Start Date End Date Danielle Infante DO [address] [place] [address] PCP - General Family Medicine 07/15/22 Interior Decorator Relationship Specialty Start Date End Date Danielle Infante DO [address] [place] [address] PCP - General Family Medicine 07/15/22 Interior Decorator Relationship Specialty Start Date End Date Danielle Infante DO [address] [place] [address] PCP - General Family Medicine 07/15/22 Interior Decorator Relationship Specialty Start Date End Date Danielle Infante DO [address] [place] [address] PCP - General Family Medicine 07/15/22 Interior Decorator Relationship Specialty Start Date End Date Danielle Infante DO [address] [place] [address] PCP - General Family Medicine 07/15/22 Interior Decorator Relationship Specialty Start Date End Date Danielle Infante, DO [address] [place] [address] PCP - General Family Medicine 07/15/22 Interior Decorator Relationship Specialty Start Date End Date Danielle Infante, DO [address] [place] [address] PCP - General Family Medicine 07/15/22 Interior Decorator Relationship Specialty Start Date End Date Danielle Infante, DO [address] [place] [address] PCP - General Family Medicine 07/15/22 Interior Decorator Relationship Specialty Start Date End Date Danielle Infante, DO [address] [place] [address] PCP - General Family Medicine 07/15/22 Interior Decorator Relationship Specialty Start Date End Date Danielle Infante, DO [address] [place] [address] PCP - General Family Medicine 07/15/22 Goals (unrecognized section and content) Goals may be documented in a n alternate sectionNo InformationGoals may be documented in an alternate sectionGoals may be documented in an alternate sectionGoals may be documented in an alternate sectionGoals may be documented in an alternate sectionNot on filedocumented as of this encounterNot on filedocumented as of this encounterNot on filedocumented as of this encounter FOR [...] BE BASED ON THE PRIMARY CLINICAL RECORDS. [facility] [employer] [facility]. provides no warranty or guarantee of the accuracy or completeness of information in this document.
[2024-08-22 10:29] VITALS: BP 129/66; PULSE 109
== END 2024-08-22 10:33 | disposition home or self-care (01) ==
LOC: FBCO 09:57 → FBC 10:04
PROVIDERS: Visit Provider Obstetrics & Gynecology
DX: O24.419 Gestational diabetes mellitus in pregnancy, unspecified control (principal)
CPT/HCPCS: 59025

== ENCOUNTER 2024-08-25 16:48 | Outpatient (OUT) | payer OTHER, SELFPAY ==
[2024-08-25 16:52] VITALS: BP 115/74; PULSE 113
--- OUTSIDE RECORDS SUMMARY | 2024-08-25 17:06 | XMS_ITS | CCD ---
Author Organization [facility] Care Team Providers Care Ship Liner Name Role Phone Rafaela Arguello [place] [address], [facility] Unavailable Unavailable Rafaela Arguello Unavailable Unavailable [...] DAYA, DR DRIVER Primary Care Unavailable Danielle Ifnante Primary Care Provider DO Danielle Infante Primary Care Provider DO Kp Alvares Attending Provider [phone] Hema, Ms. Rafaela Schultz Referring Aisha Arguello, Ms. Rafaela Schultz Primary Care Unavai labtaryn Arguello, Ms. Rafaela Schultz Attending Unavai lable Hema, MsJonathan Schultz Primary Care Unavai lable Hema, MsJonathan Schultz Attending Unavai lable Heam, Ms. Rafaela Schultz Referring Unavai lable Arguello, [...] Unavailable DO Danielle Infante Primary Care Provider [phone] SCOTT Sherman Attending Provider Karolina Man DO [...] Infante DO Primary Care Provid er ROULA BLEDOSE Attending Unavailable DANIELLE INFANTE Primary Care Azael kaye Andersen, LAYNE Avila Attending Provider KAROLINA MAN Referring Unavailable KAROLINA MAN Primary Care Unavailable KAROLINA MAN Referring Unavailable KAROLINA MAN Primary Care Unavailable MARYANN DAVISON Attending Unava ilDanielle Villalobos DO Primary Care Provider Matt Stapleton Attending Unavailable Matt Stapleton Admitting Unavailable NO FAMILY, PHYSICIAN Primary Care Unavailable Nathaly, Swetha M Attending Unavailable Swetha Andersen M Admitting Unavailable Daya DO, Matt Attending Provider [phone] Unavailable Primary Care Provider UnavailIGNACIA Quiñones Attending [...] (antibiotic) (1 source) loracarbef Drug Allergy [facility] Work Phone: Latex (1 source) natural latex rubber Substance Allergy [facility] Work Phone: NSAIDs (1 source) NSAIDs Drug Allergy [facility] Work Phone: (20 sources) loracarbef; Translations: [loracarbef] Drug Allergy 08-29-19 23 Unknown [id number] [facility] Work Phone: (20 sources) natural latex rubber; Translations: [LATEX] Allergy to substance (finding) 08-29-19 [facility] 3 Repository (20 sources) NSAIDs; Translations: [NSAIDs] Allergy to drug (finding) Unknown [id number] [facility] Work Phone: (20 sources) Animal dander - Cats Allergy to substance (finding) [id number] [facility] Work Phone: (2 sources) Latex Drug allergy (disorder) [facility] Repository (1 source) loracarbef Drug Allergy [facility] Repository (13 sources) NSAIDs; Translations: [NSAIDS (NON-STEROIDAL ANTI-INFLAMMATOR Y DRUG)] Drug allergy (disorder) 06-11-19 [facility] Repository (7 sources) Non-steroidal anti-inflammator y agent Propensity to adverse reactions to drug 06-11-19 Other: See Comments, Other [facility] (15 sources) Latex Propensity to adverse reactions 08-29-19 23 Unknown, Rash [facility] Other (20 sources) Cat Dander; Translations: [CAT DANDER] Allergy to substance 11-29-19 Unknown, Itching [facility] (4 sources) NSAIDS (Non-Steroidal Anti-Inflamma; Translations: [NSAIDS (Non-Steroidal Anti-Inflamma] Allergy to substance 09-05-[address] [facility] (3 sources) CAT HAIR STANDARDIZED ALLERGENIC EXTRACT; Translations: [CAT HAIR STANDARDIZED ALLERGENIC EXTRACT] Propensity to adverse reactions to drug (disorder) 11-29-19 Itching [facility] 2 Repository (20 sources) Latex Allergy to substance 08-29-19 Rash [facility] (20 sources) Non-steroidal anti-inflammator y agent Drug Allergy 06-11-19 Other, Unknown, Itching [facility] (5 sources) Cat Hair Extract Allergy to substance 11-29-19 Itching [facility] (1 source) Latex Drug allergy (disorder) 09-05-19 [facility] Repository Medications Current Medications Medication Drug Class(es) Dates Sig (Normalized) Sig (Original) Blood Glucose Monitoring Suppl (D-Care Glucometer) w/Device kit (14 sources) Start: 07-12-2024 End: 07-12-2025 Blood Glucose Monitoring Suppl (D-Care Glucometer) w/Device kit Indications: Gestational diabetes mellitus (GDM), antepartum, gestational diabetes method of control unspecified ([facility]) , Elevated glucose tolerance test 1 kit [...] Start: 09-05-2023 take 1 capsule by mo [facility] twice daily Cephalexin 500 mg [...] ml insulin glargine 100 unt/ml pen injector (8 sources) Insulin Analog Start: 08-09-2024 Lantus SoloStar [...] insulin isophane, human 100 unt/ml injectable suspension (14 sources) Start: 08-02-2024 End: 09-01-2024 inject 5 [IU] by subcutaneous injection in the morning insulin NPH, Isophane, (HumuLIN N,NovoLIN N) 100 UNIT/ML injection Indications: Gestational Diabetes Inject 5 Units under the skin in the morning and 5 Units in the evening. Inject before meals. 3 mL 08/02/2024 09/01/2024 Active End: 08-09-2024 inject 100 [IU] by subcutaneous injection at mealtime insulin NPH (HumuLIN N,NovoLIN N) 100 unit/mL injection Inject under the skin in the morning and in the evening. Inject with meals. 08/09/2024 Discontinued (Alternate therapy) insulin isophane, human 70 unt/ml / insulin, regular, human 30 unt/ml injectable suspension (15 sources) Insulin Start: 08-02-2024 End: 09-01-2024 inject 5 [IU] by subcutaneous injection in the morning insulin NPH-insulin regular (NovoLIN) (70-30) 100 UNIT/ML injection Indications: Gestational Diabetes Inject 5 Units under the skin in the morning and 5 Units in the evening. Inject before meals. 3 mL 08/02/2024 09/01/2024 Active End: 08-09-2024 insulin NPH and regular belkis n (HumuLIN 70-30,NovoLIN 70-30) 100 unit/mL (70-30) injection Inject under the skin in the morning and in the evening. Inject before meals. Stated not taking . 08/09/2024 Discontinued () isopropyl alcohol 0.7 ml/ml medicated pad (14 sources) Start: 07-12-2024 Alcohol Swabs (Alcohol Prep Pad) 70 % pads Indications: Gestational diabetes mellitus (GDM), antepartum, gestational diabetes method of control unspecified ([facility]) , Elevated glucose tolerance test Apply 1 [...] polysaccharide iron complex 391 mg oral capsule (20 sources) Start: 07-01-2024 End: 07-01-2025 take 1 [...] NEEDED FOR WHEEZING . Quantity: 1 Refills: Sirisha Rafaela Bridges Start : 16-May-2019 Active 30 [...] 0 Active metoclopramide 10 mg oral tablet (19 sources) Dopamine-2 Receptor Antagonist Start: 04-14-2024 End: [...] Start: 07-17-2017 take 1 tablet by didi once daily Multiple Vitamins Oral Tablet TAKE 1 TABLET DAILY. Refills: 0 Start : 17-Jul-2017 Active ondansetron 4 mg disintegrating oral tablet (16 sources) Serotonin-3 Receptor Antagonist Start: 02-12-2024 End: [...] tolerance complicating ; childbirth; or the puerperium (11 sources) Gestational diabetes mellitus; Translations: [Gestational diabetes [...] OB BPP W NON-STRESS on 08-19-[address] [address] Ultrasound Report Signed Patient: GRETCHENMICHAEL PHILLIP MR#: [id number] : 1985 Acct:[id number] Age/Sex: 38 / F ADM Date: 08/19/24 Loc: US Attending Dr: Matt Stapleton D.O. Ordering Physician: Matt Stapleton D.O. Date of Service: 08/19/24 Procedure(s): US OB BPP w non-stress Accession Number(s): [id number] cc: Matt Stapleton D.O.; Physician,Non-Staff [facility] [place] [address] Patient Name: MICHAEL WELLER MRN: [facility]:[id number] date: 1985 Sex: F Assigned Patient Location: [facility] Current Patient Location: Accession/Order Number: [id number] Exam Date: 08/19/2024 18:44 Report Date: 08/19/2024 [...] Villegas M.D. 08/19/2024 6:46 PM Dictation Location: [place] [address] Electronically authenticated by: [id number] Y Date: 08/19/2024 18:46 Dictated By: Roddy Villegas D.O. Signed By: 08/19/241848 DD/ 45 TD/TT: Radial Saw Operator: [facility] Radiology, Radiologist, MD - 08/19/2024 [place] [address] Ultrasound Report Signed Patient: MICHAEL WELLER MR#: [id number] : 1985 Acct:[id number] Age/Sex: 38 / F ADM Date: 08/19/24 Loc: US Attending Dr: Matt Stapleton D.O. Ordering Physician: Matt Stapleton D.O. Date of Service: 08/19/24 Procedure(s): US OB BPP w non-stress Accession Number(s): [id number] cc: Matt Stapleton D.O.; Physician,Non-Staff [facility] [address] Patient Name: MICHAEL WELLER MRN: [facility]:[id number] date: 1985 Sex: F Assigned Patient Location: [facility] Current Patient Location: Accession/Order Number: [id number] Exam Date: 08/19/2024 18:44 Report Date: 08/19/2024 [...] Villegas M.D. 08/19/2024 6:46 PM Dictation Location: [place] [address] Electronically authenticated by: [id number] Y Date: 08/19/2024 18:46 Dictated By: Roddy Villegas D.O. Signed By: 08/19/241848 DD/ 45 TD/TT: Radial Saw Operator: [facility] Radiology Study observation (narrative) [facility] US OB BPP W NON-STRESS Ordered By: Radiologist Radiology on 08-19-2024 [facility] Work Phone: [facility] UA (CLEAN/CATCH) SSIS ARCHITECT/TODD RO IF IND.on 08-15-2024 BILIRUBIN URINE Negative NEGATIVE [facility] BLOOD URINE Negative NEGATIVE [facility] Clarity (U) SL CLOUDY CLEAR [facility] Color (U) YELLOW YELLOW [facility] GLUCOSE URINE UA 100 mg/dL Abnormal NEGATIVE [facility] Interpretation and review of laboratory results Abnormal [facility] Ketones Ql (U) TRACE Abnormal NEGATIVE mg/dL [facility] Leukocyte esterase Test strip Ql (U) Negative NEGATIVE [facility] NITRITE URINE Negative NEGATIVE [facility] pH (U) 6.0 [pH] 5.0 - 9.0 [facility] PROTEIN URINE TRACE NEG/TRACE mg/dL [facility] SPECIFIC GRAVITY URINE >=1.030 Abnormal 1.005 - 1.025 [facility] URINE MICROSCOPIC INDICATED NO [facility] UROBILINOGEN URINE 1.0 EU/dL 0.2 - 1.0 EU/dL [facility] TBH TOTAL PROTEIN 24 HOUR UR INEon 08-14-2024 Interpretation and review of laboratory results Abnormal [facility] Protein (U) [Mass/Vol] 20.8 mg/dL High NINF - 11.9 mg/dL [facility] TBH TOTAL PROTEIN 24 HOUR URINE 322.4 High NINF [facility] TOTAL VOLUME 24 HOUR URINE 1550 mL/24hr [facility] START TIME:0754 END TIME:0745 TOTAL VOLUME:1550 [facility] ALL CBC WITH AUTO DIFFon BASOPHILS ABSOLUTE AUTO 0 [facility] Basophils/100 WBC (Bld) 0.2 % 0.2 - 2.0 % [facility] Eosinophils/100 WBC (Bld) 0.1 % Low 0.9 - 7.0 % [facility] Erythrocyte distribution width (RBC) [Ratio] 14.9 % 11.0 - 15.0 % [facility] Hematocrit (Bld) [Volume fraction] 32.6 % Low 36.0 - 48.0 % [facility] Hemoglobin (Bld) [Mass/Vol] 10.6 g/dL Low 12.0 - 16.0 g/dL [facility] IMMATURE GRANULOCYTES ABS AUTO 0.07 High [facility] Immature granulocytes/100 WBC (Bld) 0.8 % High 0.0 - 0.5 % [facility] Interpretation and review of laboratory results Abnormal [facility] LYMPHOCYTES ABSOLUTE AUTO 1.4 [facility] Lymphocytes/100 WBC (Bld) 16.3 % Low 20.5 - 60.0 % [facility] MCH (RBC) [Entitic mass] 27.1 pg 26.7 - 34.0 pg [facility] MCHC (RBC) [Mass/Vol] 32.5 g/dL 29.9 - 35.2 g/dL [facility] MCV (RBC) [Entitic vol] 83.4 fL 81.0 - 99.0 fL [facility] MONOCYTES ABSOLUTE AUTO 0.7 [facility] Monocytes/100 WBC (Bld) 7.9 % 1.7 - 12.0 % [facility] NEUTROPHILS ABSOLUTE AUTO 6.3 [facility] Neutrophils/100 WBC (Bld) 74.7 % 43.0 - 75.0 % [facility] Platelet mean volume (Bld) [Entitic vol] 12.1 fL 9.5 - 13.5 fL [facility] TBH EO # 0 [facility] TBH PLT 148 Low [facility] TB RBC 3.91 Low [facility] TB WBC 8.5 [facility] US OB BPP W NON-STRESS on 08-12-2024 [place] [address] Ultrasound Report Signed Patient: MICHAEL WELLER MR#: [id number] : 1985 Acct:[id number] Age/Sex: 38 / F ADM Date: 08/12/24 Loc: [facility] 254-[address]: Matt Stapleton D.O. Ordering Physician: Matt Stapleton D.O. Date of Service: 08/12/24 Procedure(s): US OB BPP w non-stress Accession Number(s): [id number] cc: Matt Stapleton D.O.; Physician,Non-Staff [facility] [place] [address] Patient Name: MICHAEL WELLER MRN: [facility]:[id number] date: 1985 Sex: F Assigned Patient Location: [facility] Current Patient Location: [facility] Accession/Order Number: [id number] Exam Date: 08/12/2024 16:37 Report Date: 08/12/2024 [...] Villegas M.D. 08/12/2024 4:38 PM Dictation [facility] Electronically authenticated by: [id number] Y Date: 08/12/2024 16:38 Dictated By: Roddy Villegas D.O. Signed By: 08/12/24 1641 DD/ 1638 TD/TT: Radial Saw Operator: [facility] Radiology, Radiologist, MD - 08/12/2024 [place] [address] Ultrasound Report Signed Patient: MICHAEL WELLER MR#: [id number] : 1985 Acct:[id number] Age/Sex: 38 / F ADM Date: 08/12/24 Loc: [facility] 254-[address]: Matt Stapleton D.O. Ordering Physician: Matt Stapleton D.O. Date of Service: 08/12/24 Procedure(s): US OB BPP w non-stress Accession Number(s): [id number] cc: Matt Stapleton D.O.; Physician,Non-Staff R[facility] The [place] [id number] Patient Name: MICHAEL WELLER MRN: [facility]:[id number] date: 1985 Sex: F Assigned Patient Location: [facility] Current Patient Location: [facility] Accession/Order Number: [id number] Exam Date: 08/12/2024 16:37 Report Date: 08/12/2024 [...] Villegas M.D. 08/12/2024 4:38 PM Dictation Location: [place] [address] Electronically authenticated by: [id number] Y Date: 08/12/2024 16:38 Dictated By: Roddy Villegas D.O. Signed By: 08/12/24 1641 DD/ 1638 TD/TT: Radial Saw Operator: [facility] Radiology Study observation (narrative) [facility] US OB BPP W NON-STRESS Ordered By: Radiologist Radiology on 08-12-2024 [facility] Work Phone: US OB FOLLOW UP TRANSABDOMIN [...] II, MD, PHD at 11-Aug-2024 08:51:27 AM [facility] Normal Not Available Comment on above: Order Comment: US OB SCAN FOR GROWTH Estimated Date of Delivery: 10/01/24 Gestational Age as of 07/12/2024: 28w3d US OB BPP W NON-STRESS on 08-06-2024 The [place] [id number] Ultrasound Report Signed Patient: MICHAEL WELLER MR#: [id number] : 1985 Acct:[id number] Age/Sex: 38 / F ADM Date: 08/05/24 Loc: US Attending Dr: Matt Stapleton D.O. Ordering Physician: Matt Stapleton D.O. Date of Service: 08/05/24 Procedure(s): US OB BPP w non-stress Accession Number(s): [id number] cc: Matt Stapleton D.O.; Physician,Non-Staff [facility] The [place] [id number] Patient Name: MICHAEL WELLER MRN: [facility]:[id number] date: 1985 Sex: F Assigned Patient Location: US Current Patient Location: Accession/Order Number: [id number] Exam Date: 08/06/2024 12:11 Report Date: 08/06/2024 [...] ultrasound biophysical profile Impression dictated by: Roddy Vilelgas M.D. 08/06/2024 12:12 PM Dictation Location: [place] [address] Electronically authenticated by: [id number] Y Date: 08/06/2024 12:12 Dictated By: Roddy Villegas D.O. Signed By: 08/06/24 1214 DD/ 1212 TD/TT: Radial Saw Operator: [facility] Radiology, Radiologist, - 08/06/[address] [address] Ultrasound Report Signed Patient: MICHAEL WELLER MR#: [id number] : 1985 Acct:[id number] Age/Sex: 38 / F ADM Date: 08/05/24 Loc: US Attending Dr: Matt Stapleton D.O. Ordering Physician: Matt Stapleton D.O. Date of Service: 08/05/24 Procedure(s): US OB BPP w non-stress Accession Number(s): [id number] cc: Matt Stapleton D.O.; Physician,Non-Staff [facility] The [place] [id number] Patient Name: MICHAEL WELLER MRN: [facility]:[id number] date: 1985 Sex: F Assigned Patient Location: US Current Patient Location: Accession/Order Number: [id number] Exam Date: 08/06/2024 12:11 Report Date: 08/06/2024 [...] Villegas M.D. 08/06/2024 12:12 PM Dictation Location: [place] [address] Electronically authenticated by: [id number] Y Date: 08/06/2024 12:12 Dictated By: Roddy Villegas D.O. Signed By: 08/06/24 1214 DD/ 1212 TD/TT: Radial Saw Operator: [facility] Radiology Study observation (narrative) [facility] US OB BPP W NON-STRESS Ordered By: Radiologist Radiology on 08-06-2024 [facility] Work Phone: Urinalysis macro (dipstick) panel (U)on 08-02-2024 Bilirubin, UA Negative Negative - 4(70) +++ mg/dL [facility] Blood, UA Negative Negative - 50 Shaun/mcL [facility] Clarity, UA Cloudy [facility] Color, UA Straw [facility] Glucose, UA Negative Negative - 1999(110) ++++ mg/dL [facility] Interpretation and review of laboratory results Abnormal [facility] Ketones, UA Positive Negative - 160(16) ++++ mg/dL [facility] Leukocytes, UA Negative Negative - 500+++ Denys/mcL [facility] Nitrite, UA Negative Negative - Positive [facility] pH, UA 6 5 - 9 [facility] Protein, UA Trace Negative - 1999(20) ++++ mg/dL [facility] Comment on above: 15 Spec Grav, UA 1.025 1 - 1.03 [facility] Urobilinogen, UA 0.2 0.2 - 12 mg/dL [facility] US OB FOLLOW UP TRANSABDOMIN AL [...] II, MD, PHD at 13-Jul-2024 08:42:46 AM [facility] Normal Not Available Comment on above: Order Comment: US OB SCAN FOR GROWTH Estimated Date of Delivery: 10/01/24 Gestational Age as of 06/20/2024: 25w2d Urinalysis macro (dipstick) panel (U)on 07-12-2024 Bilirubin, UA Negative Negative - 4(70) +++ mg/dL [facility] Blood, UA Negative Negative - 50 Shaun/mcL [facility] Clarity, UA Clear [facility] Color, UA Yellow [facility] Glucose, UA Positive Negative - 2000(110) ++++ mg/dL [facility] Comment on above: 100 Interpretation and review of laboratory results Abnormal [facility] Ketones, UA Negative Negative - 160(16) ++++ mg/dL [facility] Leukocytes, UA Positive Negative - 500+++ Denys/mcL [facility] Comment on above: small Nitrite, UA Negative Negative - Positive [facility] pH, UA 6 5 - 9 [facility] Protein, UA Positive Negative - 2000(20) ++++ mg/dL [facility] Comment on above: 30 Spec Grav, UA 1.03 1 - 1.03 [facility] Urobilinogen, UA 0.2 0.2 - 12 mg/dL [facility] ALL CBC WITH AUTO DIFFon BASOPHILS ABSOLUTE AUTO 0 [facility] Basophils/100 WBC (Bld) 0.2 % 0.2 - 2.0 % [facility] Eosinophils/100 WBC (Bld) 0 % Low 0.9 - 7.0 % [facility] Erythrocyte distribution width (RBC) [Ratio] 14.1 % 11.0 - 15.0 % [facility] Hematocrit (Bld) [Volume fraction] 32.1 % Low 36.0 - 48.0 % [facility] Hemoglobin (Bld) [Mass/Vol] 10.3 g/dL Low 12.0 - 16.0 g/dL [facility] IMMATURE GRANULOCYTES ABS AUTO 0.06 High [facility] Immature granulocytes/100 WBC (Bld) 0.7 % High 0.0 - 0.5 % [facility] Interpretation and review of laboratory results Abnormal [facility] LYMPHOCYTES ABSOLUTE AUTO 1.5 [facility] Lymphocytes/100 WBC (Bld) 16.1 % Low 20.5 - 60.0 % [facility] MCH (RBC) [Entitic mass] 27.8 pg 26.7 - 34.0 pg [facility] MCHC (RBC) [Mass/Vol] 32.1 g/dL 29.9 - 35.2 g/dL [facility] MCV (RBC) [Entitic vol] 86.5 fL 81.0 - 99.0 fL [facility] MONOCYTES ABSOLUTE AUTO 0.6 [facility] Monocytes/100 WBC (Bld) 6.2 % 1.7 - 12.0 % [facility] NEUTROPHILS ABSOLUTE AUTO 7.1 High [facility] Neutrophils/100 WBC (Bld) 76.8 % High 43.0 - 75.0 % [facility] Platelet mean volume (Bld) [Entitic vol] 12.2 fL 9.5 - 13.5 fL [facility] TBH EO # 0 [facility] TBH PLT 152 [facility] RBC 3.71 Low [facility] WBC 9.2 [facility] No Panel Informationon 06-30 [facility] Platelet counton 06-30-2024 Platelets (Bld) [#/Vol] 152 10*3/uL [facility] Urinalysis macro (dipstick) panel (U)on 06-20-2024 Bilirubin, UA Negative Negative - 4(70) +++ mg/dL [facility] Blood, UA Negative Negative - 50 Shaun/mcL [facility] Clarity, UA Clear [facility] Color, UA Yellow [facility] Glucose, UA Positive Negative - 1999(110) ++++ mg/dL [facility] Comment on above: 100mg/dL Interpretation and review of laboratory results Abnormal [facility] Ketones, UA Negative Negative - 160(16) ++++ mg/dL [facility] Leukocytes, UA Positive Negative - 500+++ Denys/mcL [facility] Comment on above: small Nitrite, UA Negative Negative - Positive [facility] pH, UA 6 5 - 9 [facility] Protein, UA Positive Negative - 1999(20) ++++ mg/dL [facility] Comment on above: 30mg/dL Spec Grav, UA 1.03 1 - 1.03 [facility] Urobilinogen, UA 0.2 0.2 - 12 mg/dL [facility] US OB 14+ WEEKS ANATOMY SCAN [...] II, MD, PHD at 24-May-2024 12:33:10 AM [facility] Normal Not Available Comment on above: Order Comment: US OB ANATOMY SINGLE W US OB CERVICAL LENGTH Estimated Date of Delivery: 10/01/24 Gestational Age as of 04/14/2024: 15w5d AFP, SERUM, OPEN SPINA BIFID Aon 05-06-2024 AFP MOM 1.80 . [facility] AFP VALUE 65.1 ng/mL . [facility] COMMENT: Comment . [facility] Comment on above: Annalee Akhtar , Ph.D., [facility] Director References: Available Upon Request. Multiples Of Median Cutoffs For AFP Elevations George 2.5 Black 2.8 IDD 2.0 Twins 4.5 Abbreviation Definitions IDD - Insulin Dep Diabetes OSBR - Open Spina Bifida Risk For further inquiries contact [employer] [employer] [facility] at [phone]. This test was developed and its performance characteristics determined by [employer]. It has not been cleared or approved by the Food and Drug Administration. Performed at: [facility] orthopaedics & sports medicine [address] [id number] [employer]: Yaneli Sandoval Formerly [facility], Phone: [phone] GEST. AGE ON COLLECTION DATE 18.4 . weeks [facility] GESTAT. AGE BASED ON Ultrasound . [facility] Comment on above: 15.7 on 04/14/2024 Recalculations are not recommended when gestational dating by LMP and ultrasound are within 10 days. INSULIN DEP DIABETES No . [facility] INTERPRETATION Comment . [facility] Comment on above: Interpretation: Scre en Negative [...] Customer Services to discuss available options. The [employer] recommends amniocentesis be offered to women age 35 and older. [age] [facility] MULTIPLE GESTATION No . [facility] OSBR RISK 1 IN 1278 . [facility] RACE . [facility] RESULTS Report . [facility] TEST RESULTS: Negative . [facility] WEIGHT 216 . lbs [facility] N N ULTRASOUND [id number] 5 15 N 1 216 N N N N N White/ [facility] Urinalysis macro (dipstick) panel (U)on 04-14-2024 Bilirubin, UA Negative Negative - 4(70) +++ mg/dL [facility] Blood, UA Positive Negative - 50 Shaun/mcL [facility] Comment on above: trace-intact Clarity, UA Clear [facility] Color, UA Yellow [facility] Glucose, UA Positive Negative - 1999(110) ++++ mg/dL [facility] Comment on above: 100 Interpretation and review of laboratory results Abnormal [facility] Ketones, UA Negative Negative - 160(16) ++++ mg/dL [facility] Leukocytes, UA Trace Negative - 500+++ Denys/mcL [facility] Nitrite, UA Negative Negative - Positive [facility] pH, UA 5.5 5 - 9 [facility] Protein, UA Negative Negative - 1999(20) ++++ mg/dL [facility] Spec Grav, UA 1.025 1 - 1.03 [facility] Urobilinogen, UA 0.2 0.2 - 12 mg/dL [facility] Urinalysis macro (dipstick) panel (U)on 03-16-2024 Bilirubin, UA Negative Negative - 4(70) +++ mg/dL [facility] Blood, UA Negative Negative - 50 Shaun/mcL [facility] Clarity, UA Clear [facility] Color, UA Yellow [facility] Glucose, UA Negative Negative - 1999(110) ++++ mg/dL [facility] Interpretation and review of laboratory results Normal [facility] Ketones, UA Negative Negative - 160(16) ++++ mg/dL [facility] Leukocytes, UA Negative Negative - 500+++ Denys/mcL [facility] Nitrite, UA Negative Negative - Positive [facility] pH, UA 5.5 5 - 9 [facility] Protein, UA Negative Negative - 1999(20) ++++ mg/dL [facility] Spec Grav, UA 1.025 1 - 1.03 [facility] Urobilinogen, UA 1.0 0.2 - 12 mg/dL [facility] CBC without diffon Hematocrit (Bld) [Volume fraction] 38.7 % [facility] Hemoglobin (Bld) [Mass/Vol] 12.6 g/dL [facility] Platelets (Bld) [#/Vol] 200 10*3/uL [facility] Rbc Mcv (Fl) By Automated Count 85.1 [facility] Drug Screen, Urineon 024 Amphetamine/Methamphe tamine Negative [facility] Barbiturates Negative [facility] Benzodiazepines Negative [facility] Cocaine Metabolite Negative [facility] Methadone Negative [facility] Opiates Negative [facility] Oxycodone Negative [facility] Phencyclidine Negative [facility] Thc Marijuana, Urine Negative [facility] HBV surface Ag IA Qlon 03-08 Hepatitis B Surface Antigen Negative [facility] HCV Ab IA Qlon 03-08-2024 HCV Ab Ql (S) Negative [facility] HIV 1+2 Ab+HIV1 p24 Ag IA Ql on 03-08-2024 HIV 1&2 AB/AG Non-Reactive [facility] MLR HEMOGLOBIN A1Con 024 Glucose [Mass/Vol] 105 mg/dL [facility] HbA1c (Bld) [Mass fraction] 5.3 % 4.5 - 6.2 % [facility] Comment on above: ADA RECOMMENDED LIMI T 4.0 - 6.0 ADA THERAPEUTIC TARGET < 7.0 ACTION SUGGESTED > 7.0 [facility] No Panel Informationon 03-08 [facility] Rubella IGG immune statuson 03-08-2024 Rubella immune IgG IMMUNE [facility] T. pallidum IgG+IgM IA Ql (S )on 03-08-2024 Syphilis Non-Reactive [facility] Type and screenon 03-08-2024 Abo/Rh(D) Positive [facility] Urine Cultureon 03-08-2024 Bacteria identified Cx Nom (U) 75,000 colonies/ml mixed bacterial skin contaminants 2 Days PERFORMED BY: [facility] [address] [place] [address] PATHOLOGIST BLIND HOOKER LASHONDA HARMON M.D. Normal [facility] Comment on above: Performed By: #### C UU #### [facility] [address] HCG ( test) Ql (U)o n 02-16-2024 Interpretation and review of laboratory results Abnormal [facility] Preg Test, Ur Positive Negative [facility] Urinalysis macro (dipstick) panel (U)on 02-16-2024 Bilirubin, UA Negative Negative - 4(70) +++ mg/dL [facility] Blood, UA Negative Negative - 50 Shaun/mcL [facility] Clarity, UA Clear [facility] Color, UA Yellow [facility] Glucose, UA Negative Negative - 1999(110) ++++ mg/dL [facility] Interpretation and review of laboratory results Normal [facility] Ketones, UA Negative Negative - 160(16) ++++ mg/dL [facility] Leukocytes, UA Negative Negative - 500+++ Denys/mcL [facility] Nitrite, UA Negative Negative - Positive [facility] pH, UA 6.5 5 - 9 [facility] Protein, UA Negative Negative - 1999(20) ++++ mg/dL [facility] Spec Grav, UA 1.02 1 - 1.03 [facility] Urobilinogen, UA 1.0 0.2 - 12 mg/dL [facility] PREG QUANT HCGon 024 HCG QUANTITATIVE 41268 mIU/mL [facility] Comment on above: 5-50 0.2-1 WEEK 50-500 1-2 WEEKS 100-5,000 2-3 WEEKS 500-10,000 3-4 WEEKS 1,000-50,000 4-5 WEEKS 10,000-100,000 5-6 WEEKS 15,000-200,000 6-8 WEEKS 10,000-100,000 2-[facility] HCGon 024 HCG QUANTITATIVE 5650 mIU/mL [facility] Comment on above: 5-50 0.2-1 WEEK 50-500 1-2 WEEKS 100-5,000 2-3 WEEKS 500-10,000 3-4 WEEKS 1,000-50,000 4-5 WEEKS 10,000-100,000 5-6 WEEKS 15,000-200,000 6-8 WEEKS 10,000-100,000 2-[facility] ( test) Ql (U)o n 01-05-2024 Interpretation and review of laboratory results Normal [facility] Work Phone: Preg Test, Ur Negative Negative [facility] Work Phone: [facility] Work Phone: POCT UA Automated manually r esultedon 01-05-2024 Appearance (U) Cloudy Abnormal Clear [facility] Work Phone: Glucose Test strip (U) [Mass/Vol] Negative NEGATIVE mg/dl [facility] Work Phone: Hemoglobin Ql (U) Negative NEGATIVE [facility] Work Phone: Interpretation and review of laboratory results Abnormal [facility] Work Phone: Leukocyte esterase Test strip Ql (U) SMALL (1+) Abnormal NEGATIVE [facility] Work Phone: Nitrite Ql (U) Positive Abnormal NEGATIVE [facility] Work Phone: pH (U) 7.5 [pH] No Reference Range Established [facility] Work Phone: POC Bilirubin, Urine Negative NEGATIVE [facility] Work Phone: POC Color, Urine Yellow Straw, [place] ow, Light-Yellow [facility] Work Phone: POC Ketones, Urine Negative NEGATIVE mg/dl [facility] Work Phone: POC Protein, Urine Negative NEGATIVE, 30 (1+) mg/dl [facility] Work Phone: POC Specific Dale, Urine 1.010 1.005 - 1.035 [facility] Work Phone: POC Urobilinogen, Urine 0.2 0.2, 1.0 EU/DL [facility] Work Phone: [facility] Work Phone: IGP,APTIMA HPV,AGE GDLNon AGE GDLN ACOG TESTING Note . [facility] Comment on above: TESTS RESULT FLAG UN ITS REF RANGE LAB Clinician Provided Cytology Information Source.............Cervix;Endocervix No. of containers..01 ThinPrep Vial Age Algo ACOG Katherin... FLAG LEGEND: L-Low Normal,H-High Normal,LL-Alert Low,HH-Alert High <-Panic Low,>-Panic High,A-Abnormal,AA-Critical Abnormal Performed at: 01 =G [address] [phone] Lacy Perez MD, HPV APTIMA Negative Negative [facility] Comment on above: This nucleic acid am plification test detects fourteen high- risk HPV types (16,18,31,33,35,39,45,51,52,56,58,59,66,68) without differentiation. Performed at: = - [address] [id number] [employer]: Lacy Perez MD, Phone: [phone] Performed at: - [address] [id number] [employer]: Lacy Perez MD, Phone: [phone] IGP, APTIMA HPV, RFX 16/18,45 Note . [facility] Comment on above: TESTS RESULT FLAG [facility] REF RANGE LAB DIAGNOSIS: 02 NEGATIVE FOR INTRAEPITHELIAL LESION OR MALIGNANCY. Specimen adequacy: 02 Satisfactory for evaluation. Endocervical and/or squamous metaplastic cells (endocervical component) are present. Performed by: 02 Maryse Tang, [employer] (ASCP) . 02 Note: Note 02 The [...] <-Panic Low,>-Panic High,A-Abnormal,AA-Critical Abnormal Performed at: [address] [address] Lacy Perez MD, BRUSH-SPATULA CERVIX ENDOCERVIX [facility] Urine Cultureon 09-05-2023 Bacteria identified Cx Nom (U) <9,000 colonies/ml mixed bacterial skin contaminants 2 Days PERFORMED BY: [facility] Gurinder MALLORIE CASTELLON[place] [address] PATHOLOGIST BLIND HOOKER DAVID CHILD M.D. Normal [facility] Comment on above: Performed By: #### C UU #### [facility] [address] [id number] [facility] Анна 09-01-2023 CNOV Office Visit (AMDERM ) MICHAEL WELLER ([id number]) 1985 F Date Time Provider Department 09/01/23 11:30 AM ROULA BLEDSOE [facility] During your visit today, we recorded the [...] Past Histories independently gathered by the clinical applications support specialist and the remaining scribed note accurately describes [...] Date Reviewed: 09/01/2023 Reviewed by: Roula Bledsoe APRN.HEALTH CENTER ASSOCIATE - Fully Assessed Reason for Visit: Full [...] - dexmethylphenidate (more content not included)... Normal [facility] Drugs of abuse screen W Refl ex confirm panel (U)on 02-19-2023 Amphetamines Screen Ql (U) Negative Normal Presumptive Negative [facility] Comment on above: Order [...] By: #### 8 7428-9 #### ALEJANDRO RAMOS ([id number]) [facility] ([facility]) [address] [place], [place] [phone] Barbiturates Screen Ql (U) Negative Normal Presumptive Negative [facility] Comment on above: Order [...] By: #### 8 7428-9 #### ALEJANDRO RAMOS ([id number]) [facility] ([facility]) [address] [place], [place] [phone] Benzodiazepines Ql (U) Negative Normal Presumptive Negative [facility] Comment on above: Order [...] By: #### 8 7428-9 #### ALEJANDRO RAMOS ([id number]) [facility] ([facility]) [address] [place] [address] Benzoylecgonine Screen Ql (U) Negative Normal Presumptive Negative [facility] Comment on above: Order [...] By: #### 8 7428-9 #### ALEJANDRO RAMOS ([id number]) [facility] ([facility]) [address] [place], [place] [phone] Cannabinoids Screen Ql (U) Negative Normal Presumptive Negative [facility] Comment on above: Order [...] By: #### 8 7428-9 #### ALEJANDRO RAMOS ([id number]) [facility] ([facility]) [address] [place] [address] fentaNYL+Norfentanyl Screen Ql (U) Negative Normal Presumptive Negative [facility] Comment on above: Order [...] By: #### 8 7428-9 #### ALEJANDRO RAMOS ([id number]) [facility] ([facility]) [address] [place] [address] Opiates Screen Ql (U) Negative Normal Presum ptive Negative [facility] Comment on above: Order [...] By: #### 8 7428-9 #### ALEJANDRO RAMOS ([id number]) [facility] ([facility]) [address] [place], [place] [phone] oxyCODONE+oxyMORphone Screen Ql (U) Negative Normal Presumptive Negative [facility] Comment on above: Order [...] By: #### 8 7428-9 #### ALEJANDRO RAMOS ([id number]) [facility] ([facility]) [address] [place] [address] Phencyclidine Ql (U) Negative Normal Presump tive Negative [facility] Comment on above: Order [...] By: #### 8 7428-9 #### ALEJANDRO RAMOS ([id number]) [facility] ([facility]) [address] [place], [place] [phone] BI MAMMO BILATERAL DIAGNOSTI C TOMOSYNTHESISon 12-19-2022 BI MAMMO BILATERAL DIAGNOSTIC TOMOSYNTHESIS Interpreted By: Mohan Romano and Avery Ross STUDY: BI MAMMO BILATERAL DIAGNOSTIC TOMOSYNTHESIS; BI US BREAST LIMITED LEFT; 12/19/2022 9:42 am; 12/19/2022 10:52 am ACCESSION NUMBER(S): [id number]; [id number] ORDERING CLINICIAN: KAROLINA MAN INDICATION: Annual screening [...] axillary abnormality was performed by a registered talent development specialist. No sonographic abnormalities are seen in the [...] any future breast imaging appointments, please call [phone] ([phone]). MACRO: None Signed by: Mohan Romano 12/19/2022 11:32 AM Dictation workstation: [id number] [facility] BI US BREAST LIMITED LEFTon 12-19-2022 BI US BREAST LIMITED LEFT Interpreted By: Mohan Romano and Avery Ross STUDY: BI MAMMO BILATERAL DIAGNOSTIC TOMOSYNTHESIS; BI US BREAST LIMITED LEFT; 12/19/2022 9:42 am; 12/19/2022 10:52 am ACCESSION NUMBER(S): [id number]; [id number] ORDERING CLINICIAN: KAROLINA MAN INDICATION: Annual screening [...] axillary abnormality was performed by a registered talent development specialist. No sonographic abnormalities are seen in the [...] any future breast imaging appointments, please call [phone] ([phone]). MACRO: None Signed by: Mohan Romano 12/19/2022 11:32 AM Dictation workstation: [id number] [facility] DBT Breast - bilateral diagn osticon 12-19-2022 Radiology Study observation (narrative) [facility] Work Phone: No Panel Informationon 12-19 [...] any future breast imaging appointments, please call [phone] ([phone]). MACRO: None Signed by: Mohan Romano 12/19/2022 11:32 AM Dictation workstation: [id number] [facility] Interpreted By: Mohan Romano, and Jakob Wei STUDY: BI MAMMO BILATERAL DIAGNOSTIC TOMOSYNTHESIS; BI US BREAST LIMITED LEFT; 12/19/2022 9:42 am; 12/19/2022 10:52 am ACCESSION NUMBER(S): [id number]; [id number] ORDERING CLINICIAN: KAROLINA MAN INDICATION: Annual screening [...] axillary abnormality was performed by a registered talent development specialist. No sonographic abnormalities are seen in the area of the patient's reported palpable lump or pain. 3 morphologically normal lymph nodes are incidentally seen. MMODAL No Panel InformationOrdered By: Mohan Romano on 12-19-2022 [facility] Work Phone: US Breast - left limitedon 1 Radiology Study observation (narrative) [facility] Work Phone: COMPREHENSIVE PANELon 2022 Albumin [Mass/Vol] 4.6 g/dL Normal 3.4 - 5.0 [facility] Comment on above: Performed By: #### C MP #### [facility] [address] [place] [address] ALP [Catalytic activity/Vol] 63 U/L Normal 33 - 110 [facility] Comment on above: Performed By: #### C MP #### [facility] [address] [place] [address] ALT [Catalytic activity/Vol] 23 U/L Normal 7 - 45 [facility] Comment on above: Result Comment: Lacie ents treated with Sulfasalazine may generate falsely decreased results for ALT. Performed By: #### C MP #### [facility] [address] [place] [address] Anion gap [Moles/Vol] 14 mmol/L Normal 10 - 20 [facility] Comment on above: Performed By: #### C MP #### [facility] [address] [place] [address] AST [Catalytic activity/Vol] 22 U/L Normal 9 - 39 [facility] Comment on above: Performed By: #### C MP #### [facility] [address] [place] [address] Bilirubin [Mass/Vol] 0.3 mg/dL Normal 0.0 - 1.2 [facility] Comment on above: Performed By: #### C MP #### [facility] [address] [place] [address] Calcium [Mass/Vol] 9.2 mg/dL Normal 8.6 - 10.6 [facility] Comment on above: Performed By: #### C MP #### [facility] [address] [place] [address] Chloride [Moles/Vol] 102 mmol/L Normal 98 - 107 [facility] Comment on above: Performed By: #### C MP #### [facility] [address] [place] [address] Creatinine [Mass/Vol] 0.66 mg/dL Normal 0.50 - 1.05 [facility] Comment on above: Performed By: #### C MP #### [facility] [address] [place] [address] eGFR FEMALE >90 Normal >90 [facility] Comment on above: Result Comment: CALC ULATIONS OF ESTIMATED GFR ARE PERFORMED USING THE 2020 CKD-EPI STUDY REFIT EQUATION WITHOUT THE RACE VARIABLE FOR THE IDMS-TRACEABLE CREATININE METHODS. https://jasn.asnjournals.org/content/early/ASN.040598 7557 Performed By: #### C MP #### [facility] [address] [place] [address] Glucose [Mass/Vol] 82 mg/dL Normal 74 - 99 [facility] Comment on above: Performed By: #### C MP #### [facility] [address] [place] [address] HCO3 (Bld) [Moles/Vol] 25 mmol/L Normal 21 - 32 [facility] Comment on above: Performed By: #### C MP #### [facility] [address] [place] [address] Potassium [Moles/Vol] 3.9 mmol/L Normal 3.5 - 5.3 [facility] Comment on above: Performed By: #### C MP #### [facility] [address] [place] [address] Protein [Mass/Vol] 7.2 g/dL Normal 6.4 - 8.2 [facility] Comment on above: Performed By: #### C MP #### [facility] [address] [place] [address] Sodium [Moles/Vol] 137 mmol/L Normal 136 - 145 [facility] Comment on above: Performed By: #### C MP #### [facility] [address] [place] [address] Urea nitrogen [Mass/Vol] 17 mg/dL Normal 6 - 23 [facility] Comment on above: Performed By: #### C MP #### [facility] [address] [place] [address] VITAMIN D, 25-HYDROXYon 09-2 8-2023 VITAMIN D, 25-HYDROXY 36 ng/mL Normal [facility] Comment on above: Result Comment: . DEFICIENCY: < 20 NG/ML INSUFFICIENCY: 20-29 NG/ML SUFFICIENCY: 30-100 NG/ML THIS ASSAY ACCURATELY QUANTIFIES THE SUM OF VITAMIN D3, 25-HYDROXY AND VIT D2,25-HYDROXY. Performed By: #### V TDOH #### [facility] [address] [place] [address] COMPREHENSIVE PANELon 2022 Lab Specimen Source Normal [facility] Comment on above: Performed By: #### C MP #### [facility] [address] [place], [place] Performed By: #### V TDOH #### [facility] [address] [place] [address] XR foot RT min 3V*on 023 XR foot RT min 3V* [facility] [employer] Other XR foot RT min 3V* [facility] [employer] Other XR foot RT min 3V* [address] [place] [address] [employer] Other XR foot RT min 3V* [place] [address] [employer] Other XR foot RT min 3V* XRay Report [employer] Other XR foot RT min 3V* Signed [employer] Other XR foot RT min 3V* Patient: Michael Weller MR#: [id number] [employer] Other XR foot RT min 3V* [id number] [employer] Other XR foot RT min 3V* : 1985 Acct:[id number] [employer] Other XR foot RT min 3V* Age/Sex: 36 / F ADM Date: 07/02/22 [employer] Other XR foot RT min 3V* Loc: [id number] Room: Type: [facility] [employer] Other XR foot RT min 3V* Attending Dr: Bolivar Sherman [employer] Other XR foot RT min 3V* Copies to: Bolivar Pereyra [facility] [employer] Other XR foot RT min 3V* Ordering Provider: Bolivar Pereyra [place] [facility] [employer] Other XR foot RT min 3V* Date of Service: 07/02/22 [employer] Other XR foot RT min 3V* XR/XR foot RT min 3V*: Right foot pain [employer] Other XR foot RT min 3V* 3 views RIGHT foot [employer] Other XR foot RT min 3V* COMPARISON:None N [facility] [employer] Other XR foot RT min 3V* HISTORY: RIGHT 5th metatarsal pain for one week [employer] Other XR foot RT min 3V* Acute findings: None [employer] Other XR foot RT min 3V* Degenerative change: Unremarkable [employer] Other XR foot RT min 3V* Soft tissue findings : Unremarkable [employer] Other XR foot RT min 3V* Joint effusion: None [employer] Other XR foot RT min 3V* Postop changes: None [employer] Other XR foot RT min 3V* XR/XR foot RT min 3V* [employer] Other XR foot RT min 3V* IMPRESSION:No acute findings [employer] Other XR foot RT min 3V* Impression dictated by: Roddy Villegas M.D.07/02/2022 1:27 PM [facility] [employer] Other XR foot RT min 3V* Dictation Location: [facility] [employer] Other XR foot RT min 3V* Transcribed By: PWS 07/02/22 1328 [facility] [employer] Other XR foot RT min 3V* Dictated By: Roddy Villegas DO 07/02/22 1320 [facility] [employer] Other XR foot RT min 3V* Signed By: [employer] Other XR foot RT min 3V* 07/02/22 1325 [facility] [employer] Other Office Visit (Primary Care F orms)on [...] Anxiety; YOEL = N; Verified Transmission to [id number]; Last Updated By: [employer]; 02/10/2022 3:45:08 PM Chief Complaint An interactive [...] Grandfather Famil (more content not included)... Normal [facility] ULTRASOUND LIMITED BREASTon 10-14-2021 ULTRASOUND LIMITED BREAST Patient Name: MICHAEL WELLER STUDY: BREAST ULTRASOUND; 10/14/2021 3:38 pm ACCESSION NUMBER(S): [id number] ORDERING CLINICIAN: GRAZYNA ROMANO INDICATION: Patient presents with right axillary painful palpable mass for the last 2 years. History of benign right breast mass with unknown pathology in right breast. COMPARISON: Mammogram 06/21/2021, 07/06/2018, 01/08/2018. Breast ultrasound 06/21/2021, 04/23/2020, 07/15/2019, 02/02/2019 FINDINGS: Targeted ultrasound was performed of the right axilla by a registered talent development specialist using elastography. Within the right axilla, no sonographic abnormality is present. The tissues are soft on elastography. Incidental note of normal appearing right axillary lymph node. IMPRESSION: No sonographic evidence of malignancy. Recommendation is clinical follow-up for patient's symptomatology. Screening mammogram in June 2022. BI-RADS CATEGORY: Category: 2 - Benign. Recommendation: Clinical follow-up for symptomatology. For any future breast imaging appointments, please call [phone]). I personally reviewed the images/study and I agree with the findings as stated by residential appraiser Brandt Camarillo MD. Electronically signed by: JAYME STEWART MD Normal [facility] Ultrasound Limited [place] 10-14-2021 MG Breast Screening Normal [facility] Work Phone: Albumin [Mass/volume] in Ser um or PlasmaOrdered By: Kp Alvares on 10-07-2021 Albumin [Mass/Vol] 3.9 g/dL 3.2-5.5 [facility] Basophils Auto (Bld) [#/Vol] Ordered By: Kp Alvares on 10-07-2021 Basophils (Bld) [#/Vol] 0.0 10*3/uL 0.0-0.2 [facility] Basophils/100 WBC Auto (Bld) Ordered By: Kp Alvares on 10-07-2021 Basophils/100 WBC (Bld) 0.6 % . [facility] Blood hemoglobin measurement (mass/volume)Ordered By: Kp Alvares on 10-07-2021 Hemoglobin (Bld) [Mass/Vol] 12.9 g/dL 11.8-15.4 [facility] Blood leukocytes automated c ount (number/volume)Ordered By: Kp Alvares on 10-07-2021 WBC (Bld) [#/Vol] 6.7 10*3/uL 4.5-11.0 [facility] Cholesterol [Mass/volume] in Serum or PlasmaOrdered By: Kp Alvares on 10-07-2021 Cholesterol [Mass/Vol] 192 mg/dL 140-200 [facility] Comment on above: Chol less than 200 m g/dl low risk Chol 201-239 mg/dl borderline risk Chol 240 mg/dl and greater high risk Cholesterol in LDL Calc [Mas s/Vol]Ordered By: Kp Alvares on 10-07-2021 Cholesterol in LDL [Mass/Vol] 104 mg/dL 0-100 [facility] Comment on above: LDL ATP III CLASSIFI CATION LDL less than 100 mg/dL Optimal LDL 100-129 mg/dL Near or above optimal LDL 130-159 mg/dL Borderline high LDL 160-189 mg/dL High LDL greater than 189 mg/dL Very high Cholesterol in VLDL Calc [Ma ss/Vol]Ordered By: Kp Alvares on 10-07-2021 Cholesterol in VLDL [Mass/Vol] 49 mg/dL [facility] Creatinine and Glomerular fi ltration rate.predicted panel (S/P/Bld)Ordered By: Kp Alvares on 10-07-2021 Creatinine [Mass/Vol] 0.60 mg/dL 0.44-1.03 [facility] Eosinophils Auto (Bld) [#/Vo l]Ordered By: Kp Alvares on 10-07-2021 Eosinophils (Bld) [#/Vol] 0.0 10*3/uL 0.0-0.45 [facility] Eosinophils/100 WBC Auto (Bl d)Ordered By: Kp Alvares on 10-07-2021 Eosinophils/100 WBC (Bld) 0.1 % . [facility] Erythrocyte distribution wid th Auto (RBC) [Ratio]Ordered By: Kp Alvares on 10-07-2021 Erythrocyte distribution width (RBC) [Ratio] 14.1 % 11.9-15.3 [facility] Estimated glomerular filtrat ion rate (GFR) non- AmericanOrdered By: Kp Alvares on 10-07-2021 GFR/1.73 sq M.predicted among non-blacks MDRD (S/P/Bld) [Vol rate/Area] > 60 mL/Min [facility] Globulin Calc (S) [Mass/Vol] Ordered By: Kp Alvares on 10-07-2021 Globulin (S) [Mass/Vol] 2.7 g/dL [facility] Hematocrit Auto (Bld) [Volum e fraction]Ordered By: Kp Alvares on 10-07-2021 Hematocrit (Bld) [Volume fraction] 39.2 % 34.0-46.4 [facility] Laboratory - Hematology and Cell countsOrdered By: Kp Alvares on 10-07-2021 Nucleated RBC/100 WBC (Bld) [Ratio] 0.0 % 0-0.5 [facility] Lymphocytes Auto (Bld) [#/Vo l]Ordered By: Kp Alvares on 10-07-2021 Lymphocytes (Bld) [#/Vol] 2.0 10*3/uL 1.00-4.8 [facility] Lymphocytes/100 WBC Auto (Bl d)Ordered By: Kp Alvares on 10-07-2021 Lymphocytes/100 WBC (Bld) 30.2 % . [facility] MCH Auto (RBC) [Entitic mass ]Ordered By: Kp Alvares on 10-07-2021 MCH (RBC) [Entitic mass] 28.2 pg 24.7-34.3 [facility] MCHC Auto (RBC) [Mass/Vol]Or dered By: Kp Alvares on 10-07-2021 MCHC (RBC) [Mass/Vol] 33.0 g/dL 32.0-35.0 [facility] MCV Auto (RBC) [Entitic vol] Ordered By: Kp Alvares on 10-07-2021 MCV (RBC) [Entitic vol] 85.5 fL 80-100 [facility] Monocytes Auto (Bld) [#/Vol] Ordered By: Kp Alvares on 10-07-2021 Monocytes (Bld) [#/Vol] 0.4 10*3/uL 0.0-0.8 [facility] Monocytes/100 WBC Auto (Bld) Ordered By: Kp Alvares on 10-07-2021 Monocytes/100 WBC (Bld) 5.4 % . [facility] Neutrophils Auto (Bld) [#/Vo l]Ordered By: Kp Alvares on 10-07-2021 Neutrophils (Bld) [#/Vol] 4.2 10*3/uL 1.8-7.7 [facility] Neutrophils/100 WBC Auto (Bl d)Ordered By: Kp Alvares on 10-07-2021 Neutrophils/100 WBC (Bld) 63.7 % . [facility] No Panel InformationOrdered By: Kp Alvares on 10-07-2021 Estimated GFR () > 60 mL/Min [facility] Comment on above: GFR estimated refere nce range: According to KDOQI guidelines, <60 ml/min/1.73m2 is sufficient to diagnose a patient with chronic kidney disease. Pharmacy Creatinine Clearance (Chem N/A [facility] Platelet mean volume Auto (B ld) [Entitic vol]Ordered By: Kp Alvares on 10-07-2021 Platelet mean volume (Bld) [Entitic vol] 11.4 fL 6.3-10.7 [facility] Platelets Auto (Bld) [#/Vol] Ordered By: Kp Alvares on 10-07-2021 Platelets (Bld) [#/Vol] 164 10*3/uL 150-450 [facility] Protein [Mass/volume] in Ser um or PlasmaOrdered By: Kp Alvares on 10-07-2021 Protein [Mass/Vol] 6.6 g/dL 6.1-7.9 [facility] RBC Auto (Bld) [#/Vol]Ordere d By: Kp Alvares on 10-07-2021 RBC (Bld) [#/Vol] 4.59 10*6/uL 3.60-5.00 [facility] Serum or plasma alanine bynum otransferase measurement without P-5'-P (enzymatic activiOrdered By: Kp Alvares on 10-07-2021 ALT No additional P-5'-P [Catalytic activity/Vol] 16 U/L 10-60 [facility] Serum or plasma albumin/glob ulin mass ratioOrdered By: Kp Alvares on 10-07-2021 Albumin/Globulin [Mass ratio] 1.4 {ratio} [facility] Serum or plasma alkaline jenn sphatase measurement (enzymatic activity/volume)Ordered By: Kp Alvares on 10-07-2021 ALP [Catalytic activity/Vol] 55 U/L 32-92 [facility] Serum or plasma aspartate am inotransferase measurement (enzymatic activity/volume)Ordered By: Kp Alvares on 10-07-2021 AST [Catalytic activity/Vol] 16 U/L 10-42 [facility] Serum or plasma calcium marlon urement (mass/volume)Ordered By: Kp Alvares on 10-07-2021 Calcium [Mass/Vol] 9.2 mg/dL 8.2-10.2 [facility] Serum or plasma chloride any surement (moles/volume)Ordered By: Kp Alvares on 10-07-2021 Chloride [Moles/Vol] 102 mmol/L 95-114 [facility] Serum or plasma glucose marlon urement (mass/volume)Ordered By: Kp Alvares on 10-07-2021 Glucose [Mass/Vol] 86 mg/dL 70-100 [facility] Comment on above: ADA recommended refe rence range Random Glucose Reference Range is dependent on time and content of last meal. Glucose of more than 200 mg/dL in a nonstressed, ambulatory subject supports the diagnosis of Diabetes Mellitus. Serum or plasma high density lipoprotein (HDL) cholesterol measurementOrdered By: Kp Alvares on 10-07-2021 Cholesterol in HDL [Mass/Vol] 39 mg/dL 35-85 [facility] Comment on above: HDL CHOL ATP-III CLA SSIFICATION Cardiovascular Risk HDL > or equal to 60 mg/dL LOW HDL < 40 mg/dL HIGH Serum or plasma potassium me asurement (moles/volume)Ordered By: Kp Alvares on 10-07-2021 Potassium [Moles/Vol] 4.1 mmol/L 3.5-5.1 [facility] Serum or plasma sodium measu rement (moles/volume)Ordered By: Kp Alvares on 10-07-2021 Sodium [Moles/Vol] 134 mmol/L 136-146 [facility] Serum or plasma total biliru bin measurement (mass/volume)Ordered By: Kp Alvares on 10-07-2021 Bilirubin [Mass/Vol] 0.6 mg/dL 0.3-1.2 [facility] Serum or plasma total carbon dioxide measurement (moles/volume)Ordered By: Kp Alvares on 10-07-2021 CO2 [Moles/Vol] 25.9 mmol/L 22.0-30.0 [facility] Serum or plasma total choles terol/high density lipoprotein (HDL) cholesterol mass ratOrdered By: Kp Alvares on 10-07-2021 Cholesterol.total/Cho lesterol in HDL [Mass ratio] 4.9 {ratio} <5.0 [facility] Serum or plasma urea nitroge n measurement (mass/volume)Ordered By: Kp Alvares on 10-07-2021 Urea nitrogen [Mass/Vol] 10 mg/dL 9-23 [facility] TSH DL <= 0.005 mIU/L QnOrde red By: Kp Alvares on 10-07-2021 TSH Qn 2.68 m[IU]/L 0.45-5.33 [facility] Triglyceride [Mass/volume] i n Serum or PlasmaOrdered By: Kp Alvares on 10-07-2021 Triglyceride [Mass/Vol] 246 mg/dL 35-149 [facility] Comment on above: TRIG ATP III CLASSIF ICATION TRIG less than 150 mg/dL Normal TRIG 150-199 mg/dL Borderline high TRIG 200-500 mg/dL High TRIG greater than 500 mg/dL Very high Standard traceable to the Center for Disease Conrtrol and Prevention (CDC) test method. CBC AUTO DIFFon 07-12-2021 BASO # 0.0 103/ul Normal 0.0-0.[address] [facility] Comment on above: Performed By: #### C BC #### [facility] [address] [address] [address] Kalyn Gutierrez Basophils/100 WBC (Bld) 0.4 % Normal 0.2-2.0 [facility] Comment on above: Performed By: #### C BC #### [facility] [address] [address] [address] Kalyn Gutierrez EO # 0.0 103/ul Normal 0.0-0.7 [facility] Comment on above: Performed By: #### C BC #### [facility] [address] [place] [address] Dr. Kalyn Gutierrez Eosinophils/100 WBC (Bld) 0.0 % Critically low 0.9-7.0 [facility] Comment on above: Performed By: #### C BC #### [facility] [address] [place] [address] Dr. Kalyn Gutierrez Erythrocyte distribution width (RBC) [Ratio] 12.8 % Normal 11.0-15.[address] [facility] Comment on above: Performed By: #### C BC #### [facility] [address] [place] [address] Dr. Kalyn Gutierrez Hematocrit (Bld) [Volume fraction] 38.8 % Normal 36.0-48.[address] [facility] Comment on above: Performed By: #### C BC #### [facility] [address] [place] [address] Dr. Kalyn Gutierrez Hemoglobin (Bld) [Mass/Vol] 12.4 g/dL Normal 12.0-16.[address] [facility] Comment on above: Performed By: #### C BC #### [facility] [address] [place] [address] Dr. Kalyn Gutierrez IG # 0.02 10e3/ul Normal 0.00-0.[address] [facility] Comment on above: Performed By: #### C BC #### [facility] [address] [place] [address] Dr. Kalyn Gutierrez IG % 0.3 % Normal 0.0-0.5 [facility] Comment on above: Performed By: #### C BC #### [facility] [address] [place] [address] Dr. Kalyn Gutierrez LYMPH # 1.8 103/ul Normal 1.2-3.8 [facility] Comment on above: Performed By: #### C BC #### [facility] [address] [place] [address] Dr. Kalyn Gutierrez Lymphocytes/100 WBC (Bld) 25.0 % Normal 20.5-60.0 [facility] Comment on above: Performed By: #### C BC #### [facility] [address] [place] [address] Dr. Kalyn Gutierrez MANUAL DIFF REQ NO Normal [facility] Comment on above: Performed By: #### C BC #### [facility] [address] [place] [address] Dr. Kalyn Gutierrez MCH (RBC) [Entitic mass] 28.2 pg Normal 26.7-34.[address] [facility] Comment on above: Performed By: #### C BC #### [facility] [address] [place] [address] Dr. Kalyn Gutierrez MCHC (RBC) [Mass/Vol] 32.0 g/dL Normal 29.9-35.[address] [facility] Comment on above: Performed By: #### C BC #### [facility] [address] [place] [address] Dr. Kalyn Gutierrez MCV (RBC) [Entitic vol] 88.4 fL Normal 81.0-99.[address] [facility] Comment on above: Performed By: #### C BC #### [facility] [address] [place] [address] Dr. Kalyn Gutierrez MONO # 0.6 103/ul Normal 0.3-0.[address] [facility] Comment on above: Performed By: #### C BC #### [facility] [address] [place] [address] Dr. Kalyn Gutierrez Monocytes/100 WBC (Bld) 8.7 % Normal 1.7-12.0 [facility] Comment on above: Performed By: #### C BC #### [facility] [address] [place] [address] Dr. Kalyn Gutierrez NEUT # 4.8 103/ul Normal 1.4-6.5 [facility] Comment on above: Performed By: #### C BC #### [facility] [address] [place] [address] Dr. Kalyn Gutierrez Neutrophils/100 WBC (Bld) 65.6 % Normal 43.0-75.0 [facility] Comment on above: Performed By: #### C BC #### [facility] [address] [place] [address] Dr. Kalyn Gutierrez Platelet mean volume (Bld) [Entitic vol] 12.3 fL Normal 9.5-13.[address] [facility] Comment on above: Performed By: #### C BC #### [facility] [address] [place] [address] Dr. Kalyn Gutierrez PLT 183 103/ul Normal 150-450 [facility] Comment on above: Performed By: #### C BC #### [facility] [address] [place] [address] Dr. Kalyn Gutierrez RBC 4.39 106/ul Normal 4.20-5.40 [facility] Comment on above: Performed By: #### C BC #### [facility] [address] [place] [address] Dr. Kalyn Gutierrez WBC 7.3 103/ul Normal 4.0-11.0 [facility] Comment on above: Performed By: #### C BC #### [facility] [address] [place] [address] Dr. Kalyn Gutierrez PREG QUANT HCGon 07-12-2021 HCG QUANT <1 Normal [facility] Comment on above: Performed By: #### P REGQNT #### [facility] [address] [place] [address] Dr. Kalyn Gutierrez HCG RANGE SEE BELOW Normal [facility] Comment on above: Result Comment: 5-50 0-1 WEEK 40-300 1-2 WEEKS 100-1,000 2-3 WEEKS 500-6,000 3-4 WEEKS 5,000-200,000 1-2 MONTHS 10,000-100,000 2-3 MONTHS 3,000-50,000 2ND TRIMESTER 1,000-50,000 3RD TRIMESTER Performed By: #### P REGQNT #### [facility] [address] [place] [address] Dr. Kalyn Gutierrez US PELVIS AND TRANSVAGon [...] by: NOEMI KRISHNA Date: 2021-06-22 09:[address] [facility] DIGITAL DIAG MAMM BILAT WITH TOMOon 06-21-2021 DIGITAL DIAG MAMM BILAT WITH SUSANA Patient Name: MICHAEL WELLER STUDY: DIGITAL DIAG MAMM BILAT WITH SUSANA; BREAST ULTRASOUND; 06/21/2021 3:05 pm; 06/21/2021 3:31 pm ACCESSION NUMBER(S): [id number]; [id number] ORDERING CLINICIAN: RAFAELA ARGUELLO INDICATION: Right breast [...] breast ultrasound was performed by a registered talent development specialist utilizing elastography. The irregular hypoechoic parallel mass [...] any future breast imaging appointments, please call [phone] ([phone]). Patient letter sent SAAPPR Electronically signed by: MOHAN ROMANO MD Normal [facility] IO UA (automated w/o microsc opy)on 06-21-2021 Protein (U) [Mass/Vol] Negative [facility] Work Phone: IO UA (automated w/o microscopy) Negative [facility] Work Phone: IO UA (automated w/o microscopy) Normal (0.2-1.0 mg/dl) [facility] Work Phone: IO UA (automated w/o microscopy) 6.5 1 [facility] Work Phone: IO UA (automated w/o microscopy) 1.025 1 [facility] Work Phone: IO UA (automated w/o microscopy) Clear [facility] Work Phone: IO UA (automated w/o microscopy) Yellow [facility] Work Phone: IO Ultrasound, measurement p ost-void resid urine and/or bl cap; no imagon 06-21-2021 IO Ultrasound, measurement post-void resid urine and/or bl cap; no imag 0 mL [facility] Work Phone: Radiologyon 06-21-2021 MG Breast Diagnostic Please click on the link to view the study images Normal [facility] Work Phone: MG Breast Diagnostic Normal MP-W SPC-Westla ke 200 Work Phone: Tobacco Screening.on 022 Fall risk assessment a) No falls within the last year [facility] Work Phone: Tobacco use status CPHS b) No [facility] Work Phone: ULTRASOUND LIMITED BREASTon 06-21-2021 ULTRASOUND LIMITED BREAST Patient Name: MICHAEL WELLER STUDY: DIGITAL DIAG MAMM BILAT WITH SUSANA; BREAST ULTRASOUND; 06/21/2021 3:05 pm; 06/21/2021 3:31 pm ACCESSION NUMBER(S): [id number]; [id number] ORDERING CLINICIAN: RFAAELA ARGUELLO INDICATION: Right breast palpable mass which [...] breast ultrasound was performed by a registered talent development specialist utilizing elastography. The irregular hypoechoic parallel mass [...] any future breast imaging appointments, please call [phone] ([phone]). Patient letter sent SAAPPR Electronically signed by: MOHAN ROMANO MD Normal [facility] Ultrasound Limited [place] 06-21-2021 MG Breast Screening Normal MP-WS PC-[facility]la [facility] [address] Work Phone: IO UA (automated w/o microsc opy)on 06-04-2021 Protein (U) [Mass/Vol] Negative QX-FMLI-Kibvnq ke 200 Work Phone: IO UA (automated w/o microscopy) Negative JI-AHDS-Tfynia ke 200 Work Phone: IO UA (automated w/o microscopy) Normal VW-YYXS-Ovyduq ke 200 Work Phone: IO UA (automated w/o microscopy) 7.0 1 FF-EAES-Rvomuq ke 200 Work Phone: IO UA (automated w/o microscopy) 1.020 1 EJ-KLNU-Bitxny ke 200 Work Phone: IO UA (automated w/o microscopy) Clear JS-RKYB-Jzeumo ke 200 Work Phone: IO UA (automated w/o microscopy) Yellow ZB-HTBG-Izceam ke 200 Work Phone: Tobacco Screening.on 022 Adult depression screening assessment No MP-WSPC-Luiz tla ke 200 Work Phone: Fall risk assessment a) No falls within the last year XL-XNZO-Ccpnxv ke 200 Work Phone: Last menstrual period start date 14May2021 YY-KDJG-Czcygy ke 200 Work Phone: Tobacco use status CPHS b) No FF-LEAX-Wusyta ke 200 Work Phone: PAP ACOG PANEL 2: 30 to 65on 03-28-2021 . . Normal [facility] Comment on above: Result Comment: Perf ormed at: WB Performed By: #### [id number] #### [facility] [address] [place] [address] Dr. Kalyn Gutierrez Age Gdln ACOG Testing 30-[address] [facility] Comment on above: Performed By: #### [id number] #### [facility] [address] [place] [address] Dr. Kalyn Gutierrez DIAGNOSIS: Comment Normal [facility] Comment on above: Result Comment: NEGA TIVE FOR INTRAEPITHELIAL LESION OR MALIGNANCY. Performed at: WB Performed By: #### [id number] #### [facility] [address] [place] [address] Dr. Kalyn Gutierrze HPV Aptima Negative Normal Negative [facility] Comment on above: Result Comment: This nucleic acid amplification test detects fourteen high-risk HPV types (16,18,31,33,35,39,45,51,52,56,58,59,66,68) without differentiation. Performed at: =G Performed By: #### [id number] #### [facility] [address] [place] [address] Dr. Kalyn Gutierrez Methodology: Comment Normal [facility] Comment on above: Result Comment: This liquid based ThinPrep(R) pap test was screened with the use of an image guided system. Performed at: WB Performed By: #### [id number] #### [facility] [address] [place] [address] Dr. Kalyn Gutierrez Note: Comment Normal [facility] Comment on above: Result Comment: The Pap smear is a screening test designed to aid in the detection of premalignant and malignant conditions of the uterine cervix. It is not a diagnostic procedure and should not be used as the sole means of detecting cervical cancer. Both false-positive and false-negative reports do occur. . Performed at: WB Performed By: #### [id number] #### [facility] [address] [place] [address] Dr. Kalyn Gutierrez Performed by: Comment Normal [facility] Comment on above: Result Comment: Tawnya Del Rio, [employer] (ASCP) Performed at: WB Performed By: #### [id number] #### [facility] [address] [place] [address] Dr. Kalyn Gutierrez Specimen adequacy: Comment Normal [facility] Comment on above: Result Comment: Sati sfactory for evaluation. Endocervical and/or squamous metaplastic cells (endocervical component) are present. Performed at: WB Performed By: #### [id number] #### [facility] [address] [address] [address] Kalyn Gutierrez Vital Signs Date Time Vital Sign Value Performing Clinician Facility 08-17-2024 11:20-0400 Body mass index (BMI) [Ratio] 40 kg/m2 Matt Daya DO Work Phone: [facility] 08-17-2024 11:20-0400 Body weight 109.05 kg Matt Daya DO Work Phone: [facility] 08-17-2024 11:20-0400 Diastolic blood pressure 76 mm[Hg] Matt Daya DO Work Phone: [facility] 08-17-2024 11:20-0400 Systolic blood pressure 116 mm[Hg] Matt Daya DO Work Phone: [facility] 08-09-2024 12:09-0400 Body weight 104.24 kg Noelle Johnston RN Work Phone: [facility] 08-02-2024 09:22-0400 Body mass index (BMI) [Ratio] 39.44 kg/m2 Matt Daya DO Work Phone: [facility] 08-02-2024 09:22-0400 Body weight 107.5 kg Matt Daya DO Work Phone: [facility] 08-02-2024 09:22-0400 Diastolic blood pressure 82 mm[Hg] Matt Daya DO Work Phone: [facility] 08-02-2024 09:22-0400 Systolic blood pressure 120 mm[Hg] Matt Daya DO Work Phone: [facility] 07-12-2024 11:14-0400 Body mass index (BMI) [Ratio] 39.61 kg/m2 Matt Daya DO Work Phone: [facility] 07-12-2024 11:14-0400 Body weight 107.96 kg Matt Daya DO Work Phone: [facility] 07-12-2024 11:14-0400 Diastolic blood pressure 74 mm[Hg] Matt Daya DO Work Phone: [facility] 07-12-2024 11:14-0400 Systolic blood pressure 122 mm[Hg] Matt Daya DO Work Phone: [facility] 06-20-2024 10:21-0400 Body mass index (BMI) [Ratio] 39.11 kg/m2 Matt Daya DO Work Phone: [facility] 06-20-2024 10:21-0400 Body weight 106.59 kg Matt Daya DO Work Phone: [facility] 06-20-2024 10:21-0400 Diastolic blood pressure 72 mm[Hg] Matt Daya DO Work Phone: [facility] 06-20-2024 10:21-0400 Systolic blood pressure 120 mm[Hg] Matt Daya DO Work Phone: [facility] 04-14-2024 15:19-0500 Body mass index (BMI) [Ratio] 35.91 kg/m2 Merary MCBRIDE Work Phone: [facility] 04-14-2024 15:19-0500 Body weight 97.89 kg Merary MCBRIDE Work Phone: [facility] 04-14-2024 15:19-0500 Diastolic blood pressure 70 mm[Hg] Merary MCBRIDE Work Phone: [facility] 04-14-2024 15:19-0500 Systolic blood pressure 110 mm[Hg] Merary MCBRIDE Work Phone: [facility] 03-16-2024 16:18-0500 Body mass index (BMI) [Ratio] 34.58 kg/m2 Matt Daya DO Work Phone: [facility] 03-16-2024 16:18-0500 Body weight 94.26 kg Matt Daya DO Work Phone: [facility] 03-16-2024 16:18-0500 Diastolic blood pressure 72 mm[Hg] Matt Daya DO Work Phone: [facility] 03-16-2024 16:18-0500 Systolic blood pressure 116 mm[Hg] Matt Daya DO Work Phone: [facility] 01-05-2024 11:51-0400 Body mass index (BMI) [Ratio] 30.45 kg/m2 Maryann Mic-Sachin Work Phone: [phone] [place] [address] 01-05-2024 11:51-0400 Body temperature 98.2 [degF] Maryann Mic-Baciliowicz Work Phone: [phone] [place] [address] 01-05-2024 11:51-0400 Body weight 83.01 kg Maryann Mic-Fletchersbelindawicz Work Phone: [phone] [place] [address] 01-05-2024 11:51-0400 Diastolic blood pressure 76 mm[Hg] Maryann Mic-Fletcherszkewicz Work Phone: [phone] [place] [address] 01-05-2024 11:51-0400 Heart rate 74 /min Maryann Mic-Lobocz Work Phone: [phone] [place] [address] 01-05-2024 11:51-0400 Respiratory rate 18 /min Maryann Mic-Fletcherszselinawicz Work Phone: [phone] [place] [address] 01-05-2024 11:51-0400 SaO2% (BldA) [Mass fraction] 98 % Maryann Mic-Fletcherszselinawicz Work Phone: [phone] [place] [address] 01-05-2024 11:51-0400 Systolic blood pressure 119 mm[Hg] Maryann Mic-Fletcherszselinawicz Work Phone: [phone] [place] [address] 09-05-2023 13:24-0400 Body height 165.1 cm [facility] 09-05-2023 13:24-0400 Body mass index (BMI) [Ratio] 29.2 kg/m2 [facility] 09-05-2023 13:24-0400 Body temperature 97.9 [degF] [facility] 09-05-2023 13:24-0400 Body weight 79.83 kg [facility] 09-05-2023 13:24-0400 Diastolic blood pressure 85 mm[Hg] [facility] 09-05-2023 13:24-0400 Heart rate 106 /min [facility] 09-05-2023 13:24-0400 Respiratory rate 18 /min [facility] 09-05-2023 13:24-0400 SaO2% (BldA) [Mass fraction] 96 % [facility] 09-05-2023 13:24-0400 Systolic blood pressure 120 mm[Hg] [facility] 07-22-2023 14:37-0400 Body height 165.1 cm Jhonny Issa MD Work Phone: [facility] 07-22-2023 14:37-0400 Body mass index (BMI) [Ratio] 30.72 kg/m2 Jhonny Issa MD Work Phone: [facility] 07-22-2023 14:37-0400 Body weight 83.73 kg Jhonny Issa MD Work Phone: [facility] 07-22-2023 14:37-0400 Diastolic blood pressure 78 mm[Hg] Jhonny Issa MD Work Phone: [facility] 07-22-2023 14:37-0400 Heart rate 111 /min Jhonny Issa MD Work Phone: [facility] 07-22-2023 14:37-0400 Systolic blood pressure 118 mm[Hg] Jhonny Issa MD Work Phone: [facility] 04-27-2023 15:40-0500 Body height 165.1 cm Jhonny Issa MD Work Phone: [facility] 04-27-2023 15:40-0500 Body mass index (BMI) [Ratio] 34.15 kg/m2 Jhonny Issa MD Work Phone: [facility] 04-27-2023 15:40-0500 Body weight 93.08 kg Jhonny Issa MD Work Phone: [facility] 04-27-2023 15:40-0500 Diastolic blood pressure 60 mm[Hg] Jhonny Issa MD Work Phone: [facility] 04-27-2023 15:40-0500 Heart rate 123 /min Jhonny Issa MD Work Phone: [facility] 04-27-2023 15:40-0500 Respiratory rate 14 /min Jhonny Issa MD Work Phone: [facility] 04-27-2023 15:40-0500 Systolic blood pressure 104 mm[Hg] Jhonny Issa MD Work Phone: [facility] 02-19-2023 10:39-0500 Body height 165.1 cm Jhonny Issa MD Work Phone: [facility] 02-19-2023 10:39-0500 Body mass index (BMI) [Ratio] 36.08 kg/m2 Jhonny Issa MD Work Phone: [facility] 02-19-2023 10:39-0500 Body weight 98.34 kg Jhonny Issa MD Work Phone: [facility] 02-19-2023 10:39-0500 Diastolic blood pressure 83 mm[Hg] Jhonny Issa MD Work Phone: [facility] 02-19-2023 10:39-0500 Heart rate 94 /min Jhonny Issa MD Work Phone: [facility] 02-19-2023 10:39-0500 Systolic blood pressure 117 mm[Hg] Jhonny Issa MD Work Phone: [facility] 07-02-2022 13:20-0400 Body height 165.1 cm Bolivar Sherman Other [employer] Other 07-02-2022 13:20-0400 Body mass index (BMI) [Ratio] 33.28 kg/m2 Bolivar Sherman Other [employer] Other 07-02-2022 13:20-0400 Body weight 90.72 kg Bolivar Sherman Other [employer] Other 07-02-2022 13:20-0400 Diastolic blood pressure 78 mm[Hg] Bolivar Sherman Other [employer] Other 07-02-2022 13:20-0400 Respiratory rate 18 /min Bolivar Sherman Other [employer] Other 07-02-2022 13:20-0400 SaO2% (BldA) [Mass fraction] 99 % Bolivar Sherman Other [employer] Other 07-02-2022 13:20-0400 Systolic blood pressure 117 mm[Hg] Bolivar Sherman Other [employer] Other 10-14-2021 15:07-0400 Diastolic blood pressure 98 mm[Hg] Rafaela Arguello Work Phone: [employer] Work Phone: 10-14-2021 15:07-0400 Heart rate 103 /min Rafaela Arguello Work Phone: [employer] Work Phone: 10-14-2021 15:07-0400 Systolic blood pressure 132 mm[Hg] Rafaela Silva Arguello Work Phone: [facility]TI[employer] CarterArmando Work Phone: 06-21-2021 08:13-0400 Body height 165.1 cm Rafaela Silva Arguello Work Phone: [facility] Work Phone: 06-21-2021 08:13-0400 Body mass index (BMI) [Ratio] 33.28 kg/m2 Rafaela Silva Hema Work Phone: [facility] Work Phone: 06-21-2021 08:13-0400 Body surface area Derived from formula 1.98 m2 Rafaela Arguello Work Phone: [facility] Work Phone: 06-21-2021 08:13-0400 Body temperature 97.2 [degF] Rafaela Arguello Work Phone: [facility] Work Phone: 06-21-2021 08:13-0400 Body weight 90.72 kg Rafaela Silva Hema Work Phone: [facility] Work Phone: 06-21-2021 08:13-0400 Diastolic blood pressure 82 mm[Hg] Rafaela Arguello Work Phone: [facility] Work Phone: 06-21-2021 08:13-0400 Heart rate 89 /min Rafaela Silva Arguello Work Phone: [facility] Work Phone: 06-21-2021 08:13-0400 Systolic blood pressure 115 mm[Hg] Rafaela Arguello Work Phone: [facility] Work Phone: 06-04-2021 13:05-0400 Body height 167.64 cm Rafaela Arguello Work Phone: CS-QEYE-Myywvksh 200 Work Phone: 06-04-2021 13:05-0400 Body mass index (BMI) [Ratio] 32.77 kg/m2 Rafaela Arguello Work Phone: WD-JYHD-Daexzyqm 200 Work Phone: 06-04-2021 13:05-0400 Body surface area Derived from formula 2.01 m2 Rafaela Arguello Work Phone: NG-GEFX-Gsrjpbtt 200 Work Phone: 06-04-2021 13:05-0400 Body temperature 98.2 [degF] Rafaela Arguello Work Phone: UO-RKCR-Tzkocahf 200 Work Phone: 06-04-2021 13:05-0400 Body weight 92.08 kg Rafaela Arguello Work Phone: QE-DFCH-Fmqbwvsb 200 Work Phone: 06-04-2021 13:05-0400 Diastolic blood pressure 76 mm[Hg] Rafaela Arguello Work Phone: HM-SVBZ-Ucpgrxzy 200 Work Phone: 06-04-2021 13:05-0400 Heart rate 80 /min Rafaela Arguello Work Phone: MM-GXZX-Xbbdlhom 200 Work Phone: 06-04-2021 13:05-0400 Respiratory rate 16 /min Rafaela Arguello Work Phone: AN-WLHB-Cfucgowk 200 Work Phone: 06-04-2021 13:05-0400 Systolic blood pressure 122 mm[Hg] Rafaela Arguello Work Phone: GG-USYA-Ebzlgzwo 200 Work Phone: 12-07-2019 11:03-0400 BMI (Body Mass Index) 31.95 kg/m2 Rafaela Arguello UT-YCVC-Fjylwbrv 200 Work Phone: 12-07-2019 11:03-0400 Body Temperature 98.3 [degF] Rafaela Arguello MP-WSPC-[place] 200 Work Phone: Comment on above: Method: Temporal 12-07-2019 11:03-0400 Body weight 87.77 kg Rafaela Arguello MP-WSPC-[place] 200 Work Phone: 12-07-2019 11:03-0400 BP Diastolic 74 mm[Hg] Rafaela Arguello QF-FLVG-Nmafheiy 200 Work Phone: 12-07-2019 11:03-0400 BP Systolic 118 mm[Hg] Rafaela Arguello MN-JEZO-Acbvaolk 200 Work Phone: 12-07-2019 11:03-0400 BSA (Body [...] 18:12-0400 BP Systolic 122 mm[Hg] Rafaela Arguello PV-IKJJ-Zxyl 253 [facility] Work Phone: 05-16-2019 18:12-0400 BSA (Body Surface Area) 1.98 m2 Rafaela Arguello WZ-KVHL-Ytpv [facility] [facility] Work Phone: 05-16-2019 18:12-0400 Pulse (Heart Rate) 88 /min Rafaela Arguello GM-NUDL-Fqkh [facility] [facility] Work Phone: 05-16-2019 18:12-0400 Pulse Oximetry 98 % Rafaela Arguello LA-LBXS-Kjhr 253 [address] [facility] Work Phone: 05-16-2019 18:12-0400 Respiratory Rate 18 /min Rafaela Arguello EF-HDLR-Znxm 25 [facility] Work Phone: Encounters [...] 08-17-2024 End: 08-17-2024 Telephone encounter Charlene Nguyen CMA [facility] Start: 08-17-2024 End: 08-17-2024 ambulatory MATT DAYA [...] End: 08-15-2024 Office outpatient visit 25 minutes [facility] Rubens HUERTAS Work Phone: [facility] Comment on above: Gestational diabetes requiring insulin (Primary Dx) Start: 08-15-2024 End: 08-15-2024 ambulatory [facility] Start: 08-14-2024 End: 08-14-2024 Clinisync Result Encounter [...] DAYA Not Available Start: 08-09-2024 End: 08-09-2024 Telephone encounter Noelle Johnston RN Work Phone: [facility] Comment on above: Insulin controlled g estational diabetes mellitus (GDM) in third trimester (Primary Dx) Start: 08-09-2024 End: 08-09-2024 ambulatory IGNACIA JOLIE [facility] Comment on above: Gestational diabetes mellitus (GDM) in third trimester, gestational diabetes method of control unspecified Start: 08-06-2024 End: 08-06-2024 Clinisync Result Encounter Matt Daya DO Work Phone: [facility] External Department Unsolicited Start: 08-06-2024 End: 08-06-2024 Clinisync Result Encounter Matt Daya DO Work Phone: [facility] External Department Unsolicited Start: 08-03-2024 End: 08-04-2024 Chart abstracting Scanning Provider External [facility] Start: 08-02-2024 End: 08-02-2024 Bamboo flowsheet Matt [...] Result Encounter Matt Daya DO Work Phone: [facility] External Department Unsolicited Start: 06-20-2024 End: 06-20-2024 Bamboo flowsheet Matt Daya DO Work Phone: [facility] Start: 06-20-2024 End: 06-20-2024 Bamboo flowsheet Matt Daya DO Work Phone: [facility] Start: 06-20-2024 End: 06-20-2024 ambulatory MATT DAYA Not Available Start: 06-20-2024 End: 06-20-2024 flow sheet Matt Daya DO Work Phone: [facility] Comment on above: Diabetes mellitus sc reening; 25 weeks gestation of ; Second trimester ; Antepartum multigravida of advanced maternal age Start: 05-23-2024 End: 05-23-2024 ambulatory MATT DAYA Not Available Start: 05-03-2024 End: 05-06-2024 Clinisync Result Encounter Merary MCBRIDE Work Phone: [facility] External Department Unsolicited Start: 05-03-2024 End: 05-06-2024 Clinisync Result Encounter Merary MCBRIDE Work Phone: [facility] External Department Unsolicited Start: 04-14-2024 End: 04-14-2024 ambulatory MERARY WILCOX Not Available Start: 04-14-2024 End: 04-14-2024 Patient encounter procedure Merary MCBRIDE Work Phone: [facility] Healthcare Start: 04-14-2024 End: 04-14-2024 Periodic preventive med est patient 18-39 yrs Merary MCBRIDE Work Phone: [facility] Comment on above: 15 weeks gestation o f ; Second trimester ; Well woman exam with routine gynecological exam; Screening, , for anatomic survey; Exposure to STD; Vaginal discharge; Nausea Start: 04-14-2024 End: 04-14-2024 Bamboo flowsheet Merary MCBRIDE Work Phone: [facility] Start: 04-14-2024 End: 04-14-2024 Bamboo [...] Start: 03-08-2024 End: 03-08-2024 ambulatory Matt Daya Facility:[facility] Start: 03-08-2024 End: 03-08-2024 Departed Referred Matt Daya DO Work Phone: [facility] Start: [...] minutes Maryann Davison Work Phone: [facility] Comment on above: Acute lower UTI (Adrianna eulogio Dx); Urine frequency Start: 10-20-2023 End: 10-26-2023 Clinisync Result Encounter Matt Daya DO Work Phone: [facility] External Department Unsolicited Start: 10-20-2023 End: 10-26-2023 Clinisync Result Encounter Matt Daya DO Work Phone: [facility] External Department Unsolicited Start: 10-20-2023 End: 10-20-2023 ambulatory MATT DAYA Not Available Start: 09-05-2023 End: 09-05-2023 Departed Referred [employer]OCIATE Swetha Andersen Work Phone: [facility] 250 Start: 09-05-2023 End: 09-05-2023 ambulatory PHYSICIAN NO [facility] Work Phone: Start: 09-05-2023 End: 09-05-2023 Patient encounter procedure [facility] Physician [facility] Work Phone: Start: 09-01-2023 End: 09-01-2023 ambulatory ROULA BLEDSOE Facility:[facility] Start: 09-01-2023 End: 09-01-2023 Patient encounter procedure Roula Bledsoe [employer] STORE ASSOCIATE.HEALTH CENTER ASSOCIATE Work Phone: [facility] [place] Comment on above: Dermatofibroma (Prim ottoniel Dx); Lentigines; Multiple benign nevi; Valles angioma; Hx of malignant melanoma Start: 07-22-2023 End: 07-22-2023 ambulatory [facility] Ambulatory Start: 07-22-2023 End: 07-22-2023 Office outpatient visit 25 minutes Jhonny Issa MD Work Phone: [facility] Comment on above: Encephalopathy (Prim ottoniel Dx); Attention deficit hyperactivity disorder (ADHD), predominantly inattentive type; Insomnia due to medical condition; Anxiety Start: 04-27-2023 End: 04-27-2023 ambulatory [facility] Ambulatory Start: 04-27-2023 End: 04-27-2023 Office outpatient visit 25 minutes Jhonny Issa MD Work Phone: [facility] Comment on above: Encephalopathy (Prim ottoniel Dx); Attention deficit hyperactivity disorder (ADHD), predominantly inattentive type; Insomnia due to medical condition; Anxiety Start: 03-04-2023 End: 03-04-2023 ambulatory [facility] Ambulatory Start: 03-04-2023 End: 03-04-2023 Office outpatient visit 15 minutes Karolina Man DO Work Phone: [facility] Comment on above: Anxiety Start: 02-19-2023 End: 02-19-2023 ambulatory [facility] Ambulatory Start: 02-19-2023 End: 02-19-2023 Office outpatient new 60 minutes Jhonny Issa MD Work Phone: [facility] Comment on above: Encephalopathy (Prim ottoniel Dx); Anxiety; Attention deficit hyperactivity disorder (ADHD), predominantly inattentive type Start: 12-19-2022 End: 12-19-2022 Subsequent hospital visit by physician Martha Breast Ultrasound 1 [facility] Comment on above: Lump in female breas t Start: 12-19-2022 End: 12-19-2022 ambulatory [facility] Start: 12-19-2022 End: 12-19-2022 ambulatory [facility] Start: 12-19-2022 End: 12-19-2022 Subsequent hospital visit by physician Martha Harris 1 [facility] Comment on above: Abnormal mammogram Start: 12-03-2022 End: 12-03-2022 ambulatory KAROLINA Cipriano [facility] Ambulatory Start: 10-16-[address] Work Phone: [facility] Work Phone: Start: 07-02-2022 Office outpatient vi sit [facility] [address] Start: 07-02-2022 End: 07-02-2022 ambulatory DO Danielle Infante Work Phone: [facility] Work Phone: Start: 07-02-2022 End: 07-02-2022 Patient encounter procedure DO Danielle Infante Work Phone: [facility] 250 Start: 04-14-2022 Rx Renewal [address] Work Phone: KM-UIAQ-Efhwmaxz 200 Work Phone: Start: 03-17-2022 Rx Renewal Rafaela Sanabria rd Work Phone: OB-TKEV-Ecjobwxu 200 Work Phone: Start: 02-10-2022 ambulatory Ms. Rafaela Arguello Facility:[id number] Start: 02-10-2022 Office outpatient vi sit 25 minutes Rafaela Arguello Work Phone: CT-NYOB-Mqjsqrdo 200 Work Phone: Start: 10-30-2021 Rx Renewal Rafaela Sanabria rd Work Phone: XT-JYGZ-Haitxioe 200 Work Phone: Start: 10-17-2021 End: 10-17-2021 Patient encounter procedure Roula Bledsoe APRN.HEALTH CENTER ASSOCIATE Work Phone: [facility] [place] Comment on above: Lentigines (Primary Dx); Multiple benign nevi; Valles angioma; Exposure to tanning bed, sequela; Hx of malignant melanoma; Dermatofibroma Start: 10-14-2021 Office consultation new/estab patient 60 min Rafaela Arguello Work Phone: [facility] Work Phone: Start: 10-14-2021 Patient encounter procedure Rafaela Arguello Work Phone: [facility] Work Phone: Start: 10-08-2021 Office outpatient vi sit 25 minutes Rafaela Arguello Work Phone: KW-SPSE-Mtpknlxe 200 Work Phone: Start: 10-08-2021 ambulatory Ms. Rafaela Norton edmar Arguello Facility:[id number] Start: 10-07-2021 End: 10-07-2021 Departed Referred DO Danielle Infante Work Phone: [facility] Start: 10-02-2021 Rx Renewal Rafaela Sanabria rd Work Phone: GX-FYQB-Resuifhr 200 Work Phone: Start: 09-06-2021 Patient encounter procedure Rafaela Arguello Work Phone: [facility] Work Phone: Start: 09-06-2021 ambulatory Ms. Russo Cierra edmar Arguello Facility:[id number] Start: 07-12-2021 End: 07-12-[address] ENCARNACION LISTED REQUEST Facility:H1 Start: 07-11-2021 Encounter for preprocedural cardiovascular examination DR MATT STAPLETON [facility] Start: 07-10-2021 End: 07-11-[address] MATT STAPLETON Facility:H1 Start: 07-10-2021 End: 07-11-2021 Encounter for preprocedural cardiovascular examination DR MATT STAPLETON Facility:H1 Start: 07-09-[address] MATT STAPLETON Facility :H1 Start: 07-01-[address] Work Phone: JD-VQIH-Qlmfxicd 200 Work Phone: Start: 06-28-2021 Chart Update Rafaela Kaytodd rd Work Phone: CX-ZXKF-Ymgdkuwg 200 Work Phone: Start: 06-27-2021 AUDIT Rafaela Kaytodd avalos Work Phone: NR-ZYXN-Kiurcsnn 200 Work Phone: Start: 06-21-2021 End: 06-22-[address] MATT STAPLETON Facility:H1 Start: 06-04-2021 Office outpatient vi sit 25 minutes Rafaela Arguello Work Phone: TO-FWWT-Hofxibef 200 Work Phone: Start: 06-04-2021 Patient encounter procedure Rafaela E Arguello Work Phone: NV-YMZR-Jbkgpzrh 200 Work Phone: Start: 06-04-2021 ambulatory Ms. Rafaela Arguello Facility:[id number] Start: 03-25-2021 End: 03-25-[address] MATT STAPLETON Facility:H1 Start: 12-07-2019 Patient encounter procedure Rafaela Arguello QD-MDNE-Slvwskhk 200 Work Phone: Start: 05-16-2019 Patient encounter procedure Rafaela Arguello SP-VRJK-Wllp [facility] Work Phone: Start: 09-27-2018 Patient encounter procedure Rafaela Arguello ZZ-NZVA-Oowt [facility] Work Phone: Start: 09-14-2018 Patient encounter procedure Rafaela Arguello LI-NLVD-Xesi [facility] Work Phone: Start: 07-17-2017 Patient encounter procedure Rafaela Arguello DR-GSES-Yhgv [facility] Work Phone: Procedures Date Procedure Procedure Detail Performing Clinician Start: 08-19-2024 US OB BPP W NON-STRESS Matt Stapleton DO Work Phone: Start: 08-15-2024 TBH UA (CLEAN/CATCH) SSIS ARCHITECT/MICRO IF IND. Matt Daya DO Work Phone: [...] f 2) Zoster Vaccines (1 of 2) [facility] Start: 10-19-2028 Screening for malignant neoplasm of cervix [facility] Start: 10-18-2027 Screening for malignant neoplasm of cervix [facility] Start: 10-19-2026 Screening for malignant neoplasm of cervix [facility] Start: 10-17-2025 Screening for malignant neoplasm of cervix [facility] Start: 04-23-2025 Lipid panel Lipid Panel [facility] Start: 11-07-2024 Influenza vaccination [facility] Start: 10-26-2024 End: 10-26-2024 Patient encounter procedure 10/26/2024 4:00 PM EDT Office Visit [facility] [address] [place] [phone] Matt Stapleton, DO [address] [place] [address] [facility] Start: 08-31-2024 End: 08-31-2024 Patient encounter procedure 08/31/2024 11:20 AM EDT Routine [facility] [address] [place] [phone] Matt Stapleton, DO [address] [place] [address] [facility] Start: 08-17-2024 End: 08-17-2024 Patient encounter procedure 08/17/2024 11:00 AM EDT Routine [facility] [address] [place] [phone] Matt Stapleton, DO [address] [place] [address] [facility] Start: 08-15-2024 End: 08-15-2024 Telemedicine consultation with patient 08/15/2024 1:30 PM EDT Telemedicine [facility] at [facility] [address] [place] [phone] Lucretia Villafana PA-C [address] [place] [address] [facility] Start: 08-09-2024 End: 08-09-2024 Professional / ancillary services management 08/09/2024 3:00 PM EDT Ancillary Procedure [facility] [address] [place] [phone] [facility] Start: 08-09-2024 End: 08-09-2024 ambulatory 08/09/2024 10:30 AM EDT Support Visit [facility] at [facility] [address] [place] [phone] Noelle Johnston RN [address] [facility] [place] [address] Ignacia Carvalho, LD [address] [facility] [place] [address] [facility] Start: 08-02-2024 End: 02-02-2025 US biophysical profile [...] [facility] [address] [place] [phone] Matt Stapleton DO [address] [place] [address] [facility] Start: 07-12-2024 End: 07-12-2024 Professional / ancillary services management 07/12/2024 10:30 AM EDT Ancillary Procedure [facility] [address] [facility] [place] [phone] [facility] Start: 06-20-2024 End: 06-20-2025 CBC panel - Blood by Automated count CBC Lab Routine Diabetes mellitus screening Expected: 06/20/2024 (Approximate), Expires: 06/20/2025 [facility] Work Phone: Comment on above: Expected: 06/20/2024 (Approximate), Expires: 06/20/2025 Start: 06-20-2024 End: 06-20-2025 Measurement of glucose 1 hour after glucose challenge for glucose tolerance test Glucose tolerance, 1 hour Lab Routine Diabetes mellitus screening Expected: 06/20/2024 (Approximate), Expires: 06/20/2025 [facility] Healthcare Comment on above: Expected: 06/20/2024 (Approximate), Expires: 06/20/2025 Start: 06-20-2024 End: 10-20-2024 US for US OB follow up transabdominal approach Imaging Routine Antepartum multigravida of advanced maternal age Expected: 06/20/2024, Expires: 10/20/2024 [facility] Healthcare Work Phone: Comment on above: Expected: 06/20/2024 , Expires: 10/20/2024 Start: 05-23-2024 End: 05-23-2024 Patient encounter procedure 05/23/2024 8:50 AM EDT Routine [facility] [address] [facility] [place] [phone] Matt Stapleton DO [address] [place] [address] [facility] Start: 05-23-2024 End: 05-23-2024 Professional / ancillary services management 05/23/2024 8:00 AM EDT Ancillary Procedure [facility] [address] [facility] [place] [phone] [facility] Start: 04-14-2024 End: 04-14-2024 Patient encounter procedure 04/14/2024 3:50 PM EST Routine [facility] [address] [facility] [place] [phone] Merary Wilcox PA [address] [facility] [place] [address] [facility] Start: 04-14-2024 End: 05-12-2024 Alpha fetoprotein, maternal Alpha fetoprotein, maternal Lab Routine 15 weeks gestation of Second trimester Expected: 04/14/2024 (Approximate), Expires: 05/12/2024 [facility] Healthcare Comment on above: Expected: 04/14/2024 (Approximate), Expires: 05/12/2024 Start: 04-14-2024 End: 04-14-2025 US for US OB 14+ weeks anatomy scan Imaging Routine Screening, , for anatomic survey Expected: 04/14/2024, Expires: 04/14/2025 [facility] Healthcare Comment on above: Expected: 04/14/2024 , Expires: 04/14/2025 Start: 03-25-2024 Screening for malignant neoplasm of cervix [facility] Start: 03-16-2024 End: 03-16-2024 Patient encounter procedure [facility] Comment on above: Arrived Start: 03-08-2024 Bacteria identified in Urine by Culture Urine Culture [facility] Start: 03-08-[address] [facility] Start: 02-16-2024 End: 02-15-2025 ABO/Rh ABO/Rh Lab Routine Missed menses , unspecified gestational age Expected: 02/16/2024 (Approximate), Expires: 02/15/2025 [facility] Healthcare Comment on above: Expected: 02/16/2024 (Approximate), [...] AM EST Initial [facility] [address] [facility] [place] [address] [facility] Start: 02-16-2024 End: 02-16-2024 Professional / ancillary services management 02/16/2024 8:00 AM EST Ancillary Procedure [facility] [address] [place] [address] [facility] Start: 11-08-2023 COVID-19 Vaccine ( season) COVID-19 Vaccine ( season) [facility] Start: 11-08-2023 Influenza vaccination [facility] Start: 10-14-2023 End: 10-14-2023 Patient encounter procedure 10/14/2023 3:15 PM EDT Office Visit [facility] [address] [place] [address] Jhonny Issa MD [address] [facility] [facility], [facility] [address] [facility], [place] [id number] [facility] Start: 09-05-2023 Bacteria identified in Urine by Culture [facility] Start: 07-22-2023 End: 07-22-2023 Patient encounter procedure 07/22/2023 3:15 PM EDT Office Visit [facility] [address] Cruz [address] [place] [address], [place] [phone] Jhonny Issa MD [address] [facility], [address], [place] [id number] [facility] Start: 04-27-2023 End: 04-27-2023 Patient encounter procedure 04/27/2023 3:15 PM EST Office Visit [facility] [address] Cruz [address] [place] [address], [place] [phone] Jhonny Issa MD [address] [facility], [address] [id number] [facility] Start: 03-09-2023 Behavioral Health Screening Behavioral Health Screening [facility] Start: 03-04-2023 End: 03-04-2023 Patient encounter procedure 03/04/2023 8:40 AM EST Office Visit [facility] [id number] [phone] [place] [address] [address] [facility] Start: 02-19-2023 End: 02-20-2024 Drugs of abuse screen W Reflex confirm panel - Urine [facility] Service Area Work Phone: Comment on above: Expected: 02/19/2023 (Approximate), Expires: 02/20/2024 Start: 02-19-2023 End: 02-19-2023 Patient encounter procedure 02/19/2023 10:15 AM EST Office Visit [facility] [address] [place]y [facility] [place] [phone] Jhonny Issa MD [address] [facility], [address] [address] [facility] Start: 11-07-2022 COVID-19 Vaccine ( season) COVID-19 Vaccine ( season) [facility] Start: 11-07-2022 Influenza vaccination Influenza Vacc ine (#1) [facility] Start: 01-21-2022 FUV, Provider: Luz Aguilar, Status: Pen, Time: 3:40 PM FUV, Provider: Luz Aguilar, Status: Pen, Time: 3:40 PM [id number] 200 Work Phone: Start: 01-20-2022 [id number], Provider: Bisi Prabhakar, Status: Pen, Time: 5:00 PM [id number], Provider: Bisi Prabhakar, Status: Pen, Time: 5:00 PM [facility] Work Phone: Start: 01-13-2022 [id number], Provider: Bisi Prabhakar, Status: Pen, Time: 5:00 PM [id number], Provider: Bisi Prabhakar, Status: Pen, Time: 5:00 PM [facility] Work Phone: Start: 01-08-2022 [id number], Provider: Bisi Prabhakar, Status: Pen, Time: 4:00 PM [id number], Provider: Bisi Prabhakar, Status: Pen, Time: 4:00 PM [facility] Work Phone: Start: 01-01-2022 [id number], Provider: Bisi Prabhakar, Status: Pen, Time: 4:00 PM [id number], Provider: Bisi Prabhakar, Status: Pen, Time: 4:00 PM [facility] Work Phone: Start: 12-25-2021 [id number], Provider: Bisi Prabhakar, Status: Pen, Time: 4:00 PM [id number], Provider: Bisi Prabhakar, Status: Pen, Time: 4:00 PM [facility] Work Phone: Start: 12-17-2021 [id number], Provider: Bisi Prabhakar, Status: Pen, Time: 5:00 PM [id number], Provider: Bisi Prabhakar, Status: Pen, Time: 5:00 PM [facility] Work Phone: Start: 11-07-2021 Influenza vaccination INFLUENZA (#1) [facility] Start: 10-16-2021 NPV, Provider: Nafisa Bermudez, Status: Pen, Time: 1:00 PM NPV, Provider: Nafisa Bermudez, Status: Pen, Time: 1:00 PM [id number] 200 Work Phone: Start: 10-08-2021 [id number], Provider : Rafaela Arguello, Status: Pen, Time: 11:40 AM VIRFUVHOME, Provider: Rafaela Arguello, Status: Pen, Time: 11:40 AM [id number] 200 Work Phone: Start: 09-30-2021 FUV, Provider: Luz Aguilar, Status: Pen, Time: 1:40 PM FUV, Provider: Luz Aguilar, Status: Pen, Time: 1:40 PM [facility] Work Phone: Start: 09-18-2021 [id number], Provider: Bisi Prabhakar, Status: Pen, Time: 10:00 AM [id number], Provider: Bisi Prabhakar, Status: Pen, Time: 10:00 AM [facility] Work Phone: Start: 09-06-2021 [id number], Provider: Bisi Prabhakar, Status: Pen, Time: 8:00 AM [id number], Provider: Bisi Prabhakar, Status: Pen, Time: 8:00 AM [facility] Work Phone: Start: 08-02-2021 FUV, Provider: Luz Aguilar, Status: Pen, Time: 8:20 AM FUV, Provider: Luz Aguilar, Status: Pen, Time: 8:20 AM [facility] Work Phone: Start: 06-21-2021 NPV, Provider: Luz Aguilar, Status: Jose, Time: 8:00 AM NPV, Provider: Luz Aguilar, Status: Pen, Time: 8:00 AM [facility] Work Phone: Start: 03-27-2021 COVID-19 VACCINE (3 - Booster for Pfizer series) COVID-19 VACCINE (3 - Booster for Pfizer series) [facility] Start: 12-20-2020 COVID-19 Vaccine (3 - Pfizer series) COVID-19 Vaccine (3 - Pfizer series) [facility] Start: 01-09-2020 FFD mammogram Breast screening Mamm - Ultrasound of Breast [facility] 200 Work Phone: Start: 10-26-2017 HPV TESTING HPV TESTING [facility] Start: 10-26-2009 DTaP/Tdap/Td Vaccine s (1 - Tdap) DTaP/Tdap/Td Vaccines (1 - Tdap) [facility] Start: 10-26-2008 PAP TESTING PAP TESTING [facility] Start: 10-26-2008 Screening for malignant neoplasm of cervix [facility] Start: 10-26-2006 DTaP,Tdap and Td Vaccines (1 - Tdap) DTaP,Tdap and Td Vaccines (1 - Tdap) [facility] Start: 10-26-2006 Hepatitis B Vaccine (1 of 3 - 19+ 3-dose series) Hepatitis B Vaccine (1 of 3 - 19+ 3-dose series) [facility] Start: 10-26-2006 Hepatitis B Vaccines (1 of 3 - 19+ 3-dose series) Hepatitis B Vaccines (1 of 3 - 19+ 3-dose series) [facility] Start: 10-26-2006 Urine microalbumin profile [facility] Start: 10-26-2005 Adult BMI Screening Adult BMI Screen ing [facility] Start: 10-26-2005 HEPATITIS C SCREENING HEPATITIS C [facility] Start: 10-26-2005 Hepatitis C screening Hepatitis C [facility] Start: 10-26-2005 HIV SCREENING HIV SCREENING [facility] Start: 10-26-2005 HIV screening HIV Screening [facility] Start: 10-26-2000 Varicella vaccination Varicell a Vaccines (1 of 2 - 13+ 2-dose series) [facility] Start: 1999 Adult depression screening assessment DEPRESSION SCREENING [facility] Start: 1999 Tobacco Screening Tobacco Screening [facility] Start: 10-26-1988 MMR Vaccines (1 of 1 - Standard series) MMR Vaccines (1 of 1 - Standard series) [facility] Start: 10-26-1988 Varicella vaccination Varicell a Vaccines (1 of 2 - 2-dose childhood series) [facility] Start: 1987 HEPATITIS B (1 of 3 - 3-dose series) HEPATITIS B (1 of 3 - 3-dose series) [facility] Start: 1987 Hepatitis B Vaccines (1 of 3 - 3-dose series) Hepatitis B Vaccines (1 of 3 - 3-dose series) [facility] Start: 1987 HIV screening HIV Screening [facility] Start: 1987 Yearly Adult Physical Yearly Adult P hysical [facility] Bacteria identified in Urine by Culture Urine culture Microbiology Routine Missed menses Ordered: 02/16/2024 [facility] Comment on above: Ordered: 02/16/2024 CBC W Auto Differential panel - Blood CBC and differential Lab Routine Missed menses , unspecified gestational age Ordered: 02/16/2024 [facility] Comment on above: Ordered: 02/16/2024 CHLAMYDIA TRACHOMATI S (GENITO/STI) CHLAMYDIA TRACHOMATIS (GENITO/STI) Lab Routine Exposure to STD Ordered: 04/14/2024 [facility] Comment on above: Ordered: 04/14/2024 Hemoglobin A1c/Hemoglobin.total in Blood Hemoglobin A1c Lab Routine Missed menses , unspecified gestational age Ordered: 02/16/2024 [facility] Comment on above: Ordered: 02/16/2024 End: 08-15-2025 [...] menses , unspecified gestational age Ordered: 02/16/2024 [facility] Comment on above: Ordered: 02/16/2024 Hepatitis C virus Ab [Presence] in Serum or Plasma by Immunoassay Hepatitis C antibody Lab Routine Missed menses , unspecified gestational age Ordered: 02/16/2024 [facility] Comment on above: Ordered: 02/16/2024 HIV-1/HIV-2 antigen/antibody combination immunoassay HIV-1 and HIV-2 antibodies Lab Routine Missed menses , unspecified gestational age Ordered: 02/16/2024 [facility] Comment on above: Ordered: 02/16/2024 Human papilloma viru s DNA [Presence] in Unspecified specimen by Probe with amplification HPV DNA probe, amplified Microbiology Routine Well woman exam with routine gynecological exam Ordered: 04/14/2024 [facility] Work Phone: Comment on above: Ordered: 04/14/2024 Neisseria gonorrhoea e DNA [Presence] in Unspecified specimen by GENTRY with probe detection Neisseria gonorrhea DNA probe, direct Lab Routine Exposure to STD Ordered: 04/14/2024 [facility] Comment on above: Ordered: 04/14/2024 Reagin Ab [Presence] in Serum by RPR RPR Lab Routine Missed menses , unspecified gestational age Ordered: 02/16/2024 [facility] Comment on above: Ordered: 02/16/2024 Rubella antibody, IgG Rubella an tibody, IgG Lab Routine Missed menses , unspecified gestational age Ordered: 02/16/2024 [facility] Comment on above: Ordered: 02/16/2024 SURESWAB(R) ADVANCED VAGINITIS PLUS, TMA SURESWAB(R) ADVANCED VAGINITIS PLUS, TMA Pathology and Cytology Routine Vaginal discharge Ordered: 04/14/2024 [facility] Comment on above: Ordered: 04/14/2024 [id number] e 200 Work Phone: NEGATED: Highlighted row has been ruled out! Planned Goals not documented [id number] 200 Work Phone: Immunizations Immunization Date Immunization Notes Care Provider Elina flores 10-25-2020 Pfizer-BioNTTripletPlus COVI D-19 Vacc 30 MCG/0.3ML Intramuscular Suspension Rafaela Arguello Work Phone: [id number] 200 Work Phone: 10-04-2020 Pfizer-BioNTech COVI D-19 Vacc 30 MCG/0.3ML Intramuscular Suspension Rafaela Arguello Work Phone: [id number]-[id number] 200 Work Phone: Payers Date Payer Category Payer Medicaid HMO [employer] [id number] 2024 Medicaid [id number] 2024 Commercial Managed C [facility] [employer] [id number] 2023 Medicaid [place]ICAID [place] [id number] 2023 Medicaid [id number] 2023 Self-pay [phone] [id number] 2022 Managed Care (Private) [facility] [id number] 2022 Private Health Insurance [id number]. [id number] 2020 Unknown 1987 Unknown [id number] 2.16840.1.001342.3.579.2. 593 1987 Unknown [id number] 2.16840.1.166886.3.579.2. 593 1987 Unknown [id number] 2.16.840.1.317174.3.579.2. 593 1987 Unknown [id number] 2.16.840.1.732815.3.579.2. 593 1987 Unknown [id number] 2.16.840.1.094254.3.579.2. 593 1987 Unknown [id number] 2.16.840.1.694625.3.579.2. 356 1987 Unknown [id number] 2.16.840.1.800732.3.579.2. 356 1987 Unknown [id number] 2.16.840.1.259796.3.579.2. 356 1987 Unknown [id number] 2.16.840.1.619147.3.579.2. 356 1987 Unknown [id number] 2.840.1.082111.3.579.2. 356 1987 Unknown [id number] 2.16.840.1.652391.3.579.2. 1244 1987 Unknown [id number] 2.840.1.196690.3.579.2. 4 1987 Unknown [id number] 2.840.1.026375.3.579.2. 4 1987 Unknown [id number] 2.0.1.568642.3.579.2. 1243 1987 Unknown [id number] 2.840.1.361779.3.579.2. 1244 1987 Unknown [id number] 2.840.1.566979.3.579.2. 3 1987 Unknown [id number] 2.840.1.755628.3.579.2. 1243 1987 Unknown [id number] 2.840.1.472288.3.579.2. 1243 1987 Unknown [id number] 2.16840.1.782021.3.579.2. 1286 1987 Unknown [id number] 2.16840.1.512894.3.579.2. 1286 1987 Unknown [id number] 2.16.840.1.176151.3.579.2. 1259 1987 Unknown [id number] 2.840.1.241095.3.579.2. 1259 1987 Unknown [id number] 2.16.840.1.076563.3.579.2. 9 1987 Unknown [id number] 2.16.840.1.017689.3.579.2. 1258 1987 Unknown [id number] 2.16.840.1.374450.3.579.2. 1258 1987 Unknown [id number] 2.16.840.1.714540.3.579.2. 1258 1987 Unknown [id number] 2.16.840.1.513696.3.579.2. 1258 1987 Unknown [id number] 2.16.840.1.723598.3.579.2. 1258 1987 Unknown [id number] 2.16.840.1.805533.3.579.2. 1258 1987 Unknown [id number] 2.16.840.1.928925.3.579.2. 1258 1987 Unknown [id number] 2.16.840.1.399444.3.579.2. 1258 1987 Unknown [id number] 2.16.840.1.418340.3.579.2. 1259 1959 Unknown [id number] Unknown [id number] 2.16.840.1.692882.3.579.2. 531 Unknown [id number] 2.16.840.1.777658.3.579.2. 531 Social History Date Type Detail Facility Assertion Tobacco smoking consumption unknown (finding) [id number] Work Phone: Start: 12-03-2022 End: 08-09-2024 Non-smoker Non-smoker [facility] Start: 02-19-2023 End: 08-15-2024 Tobacco smoking status NHIS Never smoked tobacco [facility] Start: 10-17-2021 End: 09-01-2023 Alcohol intake Current drinker of alcohol (finding) [facility] Start: 05-14-2010 History SDOH Alcohol Comment occasional [facility] Start: 1987 Sex Assigned At Not on file C [facility] Start: 1987 Sex Assigned At Female F [facility] Start: 12-03-2022 End: 08-09-2024 Sex Assigned At [facility] Tobacco smoking stat us NHIS Tobacco smoking consumption unknown [facility] Start: 12-09-2022 End: 01-05-2024 Exposure to SARS-CoV-2 (event) Not sure [facility] Start: 02-19-2023 End: 08-15-2024 Tobacco use and exposure Smokeless tobacco non-user [facility] Work Phone: Start: 02-19-2023 End: 01-05-2024 Alcohol intake Defer [facility] Work Phone: National Score (1-100), lower number is lower risk 52 [employer] Work Phone: Start: 01-09-2024 [facility] Start: 03-09-2024 End: 08-03-2024 Sex Female (finding) [facility] Start: 08-15-2024 Alcoholic beverage intake Ex-drinker (finding) [employer] [facility] Procedure Code Equipment Code Equipment Origin al Text Equipment Identifier Dates 1 strip by In Vi tro route Daily Use in the morning prior to breakfast, 1 hour after each meal for a total of 4times daily. [id number] Start: 07-12-2024 End: 08-11-2024 1 each by In Vit ro route Daily Use to check FSBS four times daily [id number] Start: 07-12-2024 End: 08-11-2024 Use as instructed [id number] Start: 08-02-2024 Use to inject insulin once daily as prescribed. Use a new pen needle for each insulin pen injection. [id number] Start: 08-09-2024 Goals Date Patient Goal Desired Activity /State Personal health goal Functional Status Date Assessment Result Facility NEGATED: Highlighted row Functional performance Functional status health issues are not documented Disease [id number] Work Phone: Mental Status Date Assessment Result Facility NEGATED: Highlighted row Cognitive function [Interpretation] Cognitive status health issues are not documented Disease [id number] [facility] Work Phone: Clinical Notes 03-04-2012 to 08-17-2024 Telephone Encounter - Charlene Nguyen CMA - 08/17/2024 11:31 AM EDTTelephone Encounter - Charlene Nguyen CMA - 08/17/2024 11:31 AM Elfego Nixon LPN - 08/17/2024 11:00 AM EDTPatient Instructions Note Date & Type Note Facility 08-17-2024 Miscellaneous Notes [employer] CALLED PATIENT. NO ANSWER. LEFT VOICEMAIL ASKING THE PATIENT TO CALL US TO GET SCHEDULED FOR HER 1-2 WEEK FOLLOW UP WITH LUCRETIA VILLAFANA AT THE PROVIDER'S REQUEST. LEFT NUMBER [phone] AND INSTRUCTED HER TO SELECT OPTION 3 TO REACH ONE OF OUR SCHEDULERS TO GET SCHEDULED. documented in this encounter [facility] 08-17-2024 Telephone encounter Note [facility] [employer] CALLED PATIENT. NO ANSWER. LEFT VOICEMAIL ASKING THE PATIENT TO CALL US TO GET SCHEDULED FOR HER 1-2 WEEK FOLLOW UP WITH LUCRETIA VILLAFANA AT THE PROVIDER'S REQUEST. LEFT NUMBER [phone] AND INSTRUCTED HER TO SELECT OPTION 3 TO REACH ONE OF OUR SCHEDULERS TO GET SCHEDULED. [facility] 08-17-2024 History of Present illness Narrative [...] nursing note reviewed. Exam conducted with a transmission systems operator present. Vitals: Estimated body mass index [...] Bisi Nixon LPN on behalf of: Matt Satpleton DO documented in this encounter [facility] 08-15-2024 History of Present illness Narrative Maternal- Medicine Consultation VIDEO Patient is present at work, provider present at [facility] HISTORY OF PRESENT ILLNESS: Michael Weller is [...] 2009 CYST REMOVAL 2011 BACK TONSILLECTOMY 1992 ALLERGIES: Allergies Allergen Reactions [...] values to us weekly by e-mail to: [email or web address] or by fax to: [phone] Lucretia Villafana PA-C Maternal- Medicine Office phone: [phone] Lucretia Villafana PA-C 08/15/24 [id number] documented in this encounter [facility] 08-09-2024 Miscellaneous Notes Summary: [facility] Blood Glucose Log & Insulin Dose Change Called and spoke with Michael regarding Bárbara Canas CNM reviewed BG log and changed insulin orders to Lantus insulin pen 10 Units in the evening daily. Verbalized understanding. documented in this encounter [facility] 08-09-2024 Telephone encounter Note Summary: [facility] Blood Glucose Log & Insulin Dose Change Called and spoke with Michael regarding Bárbara Canas CNM reviewed BG log and changed insulin orders to Lantus insulin pen 10 Units in the evening daily. Verbalized understanding. [facility] 08-09-2024 History of Present illness Narrative DIABETES AND ASSESSMENT Type of diabetes: GDM [...] care for you: OB Provider Family Doctor Gluer Machine Setup Operator Name: Dr. Matt Stapleton Name: No primary [...] and in the evening. Inject with meals. (Patient not taking: Reported on 08/09/2024) metoclopramide (REGLAN) 10 mg tablet Take 1 tablet (10 mg total) by mouth in the morning and 1 tablet (10 mg total) at noon and 1 tablet (10 mg total) in the evening and 1 tablet (10 mg total) before bedtime. (Patient not taking: Reported on 08/09/2024) ondansetron [...] demonstration Is there anything about your culture, anabaptist, or personal beliefs we need to know about to care for you: Other None Primary Language spoken: Andorran [22] Primary Language for learning: Andorran Are you currently in a relationship where you are physically hurt, threatened or made to fee afraid? [] Yes [] No Gis Consultant needed? [] Yes [] No Marital status/Living [...] where: Lower abdominal On thge following scale, [place] the number, which describes your current level [...] BG log from 08/04/24-08/09/24; noted 4 of 4 FBS and 3 of 6 PP elevated. Recently diagnosed with GDM; currently managed blood sugars with diet and physical activity. Prescribed insulin by Dr. Allen Stapleton; however, has not obtained insulin vials and syringes from pharmacy. Requesting insulin pen and pen needles in place of insulin vials and syringes. Reported family history of diabetes. Discussed complications for mom and baby related to GDM. Random BG 75 today 08/09/24. Reviewed rapid and long acting insulin action times and recommended administration sites, timing and site rotation. Demonstrated and reviewed insulin pen and vial and syringe administration steps. Able to demonstrate correct insulin pen administration steps. Referred to Diabetes Self-Management Support Plan in folder. Discussed plan to check blood sugar four times daily, fasting and 1 hour after meals including sending them to weekly on Thursday night/Thursday and being active 30 minutes most days of the week with logging this on BG log weekly. Noted will contact weekly regarding BG log being reviewed and instructions/recommendations. Face to face time 75 minutes. . Nutritional Assessment Form Date: 08/09/2024 AMALIA: Estimated [...] and in the evening. Inject with meals. (Patient not taking: Reported on 08/09/2024) metoclopramide (REGLAN) 10 mg tablet Take 1 tablet (10 mg total) by mouth in the morning and 1 tablet (10 mg total) at noon and 1 tablet (10 mg total) in the evening and 1 tablet (10 mg total) before bedtime. (Patient not taking: Reported on 08/09/2024) ondansetron [...] weekly Educational Level Masters Family issues stable Cultural/ethnic/nondenominational influences denies Exercise approved by MD? Yes Current Exercise program walking Who prepares the meal Spouse Who purchase food at your home? Both Equipment use for cooking/food storage Has everything Food Assistance(Ex.WIC, Food [place]) Declined Dining out Yes Lunch everyday during [...] 7:30 AM Noon 4 PM 6-7 PM Michael Weller presents for diet instruction per doctor order secondary to diagnosis of gestational diabetes insulin requiring. Food recall suggests patient typically consumes a lower carbohydrate diet and is not eating a lot of vegetables. Pt has gained 69.8 pounds to date reporting her pre weight as 160 pounds. Michael said that she had lost a lot of weight by eating healthier and exercising prior to getting . Based on patient's stated pre- weight, weight gain goal is 15-25 pounds. Nutrition diagnosis: inconsistent carbohydrate intake related to lack of nutrition knowledge as evidenced by patient's food recall. Instructed patient on a 1900 kcal meal plan of 3 meals and 3 snacks, carbohydrate counting, label reading, dining out, and portion control. Encouraged patient to measure food for 2 days and record two day's worth of food records. Pt expressed understanding with counting carbohydrates and agreed to send RD a 2 day food log. Please refer to health habits for other goals. Reviewed the Diabetes Self Management Support Plan, discussed using apps/websites to help manage her diabetes. Patient understands that we will follow up weekly with a phone call to review progress. Breakfast 7-9 AM 15-25 grams of CHO, Snack 10 AM 15-30 grams of CHO, Lunch Noon 45 grams of CHO, Snack 4 PM 15-30 grams of CHO, Dinner 6-7 PM 45 grams of CHO, HS Snack 8 PM 15-30 grams of CHO. Face to face time 50 minutes. documented in this encounter [facility] 08-09-2024 Instructions Noelle Johnston RN - 08/09/2024 10:30 AM [...] HOURS WHILE AWAKE documented in this encounter [employer] 08-02-2024 History of Present illness Narrative Reason for Appointment: Patient ID: Michael Weller is a 38 y.o. female who presents for Routine Visit Patient presents today for Return OB appointment. MEDICATIONS Current Outpatient Medications Medication Instructions Alcohol Swabs (Alcohol Prep Pad) 70 % pads 1 Pad, Topical, Daily, Use four times daily to check FSBS. Blood Glucose Monitoring Suppl ([employer] Glucometer) w/Device kit 1 kit, Does not [...] nursing note reviewed. Exam conducted with a transmission systems operator present. Vitals: Estimated body mass index [...] Matt Stapleton DO documented in this encounter [facility] 07-12-2024 History of Present illness Narrative Reason for Appointment: Patient ID: Michael Weller is a 38 y.o. female who presents for Routine Visit Patient presents today for Return OB appointment. MEDICATIONS Current Outpatient Medications Medication Instructions Alcohol Swabs (Alcohol Prep Pad) 70 % pads 1 Pad, Topical, Daily, Use four times daily to check FSBS. Blood Glucose Monitoring Suppl (D-[employer] Glucometer) w/Device kit 1 kit, Does not [...] nursing note reviewed. Exam conducted with a transmission systems operator present. Vitals: Estimated body mass index [...] Matt Stapleton DO documented in this encounter [facility] 06-20-2024 History of Present illness Narrative Reason [...] nursing note reviewed. Exam conducted with a transmission systems operator present. Vitals: Estimated body mass index [...] of: ARIELLA Duran documented in this encounter [facility] 04-14-2024 History of Present illness Narrative Reason [...] nursing note reviewed. Exam conducted with a transmission systems operator present. Vitals: Estimated body mass index [...] obtained without difficulty and patient was given [facility] order to have obtained. Orders Placed This [...] of: RAE Teixeira documented in this encounter [facility] 03-16-2024 History of Present illness Narrative Reason [...] nursing note reviewed. Exam conducted with a transmission systems operator present. Vitals: Estimated body mass index [...] or undercooked meat, and stay away from [facility]. Patient has been consulted regarding any further do's and don'ts of . Patient voiced understanding and all questions and concerns were answered. Pt was offered [facility] referral for AMA, pt considering. Orders Placed This Encounter Procedures POCT urinalysis dipstick manually resulted Follow Up: Patient is to return in 4 weeks for routine OB appointment. Documented by Bisi Nixon LPN on behalf of: Matt Stapleton DO documented in this encounter [facility] 02-16-2024 History of Present illness Narrative Reason [...] or undercooked meat, and stay away from [facility]. Patient has also been advised to not [...] Cathy Dick LPN documented in this encounter [facility] 01-05-2024 History of Present illness Narrative Subjective [...] Ketones, Urine NEGATIVE NEGATIVE mg/dl POC Specific Dale, Urine 1.010 1.005 - 1.035 POC Blood, [...] pyelonephritis, Macrobid prescribed. She will take Azo vrbh-sjo-arlxisa, acetaminophen, fluids, etc. Follow-up as needed. Patient [...] Davison 12:46 PM documented in this encounter [facility] Work Phone: 01-05-2024 Instructions Maryann Davison - 01/05/2024 11:45 AM EDT No signs of acute pyelonephritis, Macrobid prescribed. She will take Azo eztf-qij-wrysttr, acetaminophen, fluids, etc. Follow-up as needed. Patient declined urine culture after counseling. documented in this encounter [facility] Work Phone: 09-01-2023 Note HNO ID: [id number] Author: ROULA BLEDSOE APRN.HEALTH CENTER ASSOCIATE Service: ? Author Type: Nurse Practitioner Type: [...] Past Histories independently gathered by the clinical applications support specialist and the remaining scribed note accurately describes my personal service to the patient. Roula Bledsoe APRN.MARCELINA September 01, 2023 11:26 AM Medical Decision Making: Problems: Moderate: 2+ stable chronic illnesses Risk: Low: Low risk from testing/treatment Medical Decision Making Level: 3 - Low [facility] 09-01-2023 History of Present illness Narrative [...] Past Histories independently gathered by the clinical applications support specialist and the remaining scribed note accurately describes my personal service to the patient. Roula Bledsoe APRN.CNP September 01, 2023 11:26 AM Medical Decision Making: Problems: Moderate: 2+ stable chronic illnesses Risk: Low: Low risk from testing/treatment Medical Decision Making Level: 3 - Low documented in this encounter [facility] 07-22-2023 History of Present illness [...] 07/22/2023 3:01 PM documented in this encounter [facility] Work Phone: 04-27-2023 History of Present illness Narrative Michael Schroeder Bradkishoreelias 37 y.o. SUBJECTIVE HPI Michael is a [...] 04/27/2023 4:18 PM documented in this encounter [facility] Work Phone: 03-04-2023 History of Present [...] sooner with any questions or concerns Karolina aMn DO documented in this encounter [facility] Work Phone: 02-19-2023 History of Present illness Narrative Michael Fengmichaeljulia 37 y.o. SUBJECTIVE HPI Michael 37-year-old young lady who was seen today for evaluation of a possible attention deficit disorder difficulty at work at home. 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 Signatures Electronically signed by : Bisi Prabhakar PT T [facility]; Oct 16 2022 10:12AM EST (Author) [facility] 07-02-2022 Evaluation note Encounter Date Diagnosis Assessment [...] no improvement of pain. Given return precautions. Queue-it Other 12-05-2022 Chief complaint Narrative - Reported* [...] virtual visit to discuss anxiety follow up QJ-WMEO-Zqkbymsv 200 Work Phone: 1(607) 655-294108-11-2022 History of Present illness Narrative* Roula BledsoeLAYNE.HEALTH CENTER ASSOCIATE - 10/17/2021 12:40 PM EDT SKIN EXAM [...] Past Histories independently gathered by the clinical applications support specialist and the remaining scribed note accurately describes my personal service to the patient. Roula Bledsoe APRN.CNP October 17, 2021 1:05 PM I spent a total of 15 minutes on the date of the service which included preparing to see the patient, dslh-ir-icbj patient care, completing clinical documentation, performing a medically appropriate examination, and counseling and educating the patient/family/caregiver. [facility] History of Present illness Narrative* [...] right breast biopsy 2018 at [facility]- fibroepithelial lesion consistent with fibroadenoma * - breast surgery: no * - breast cancer:no * Menarche: 15 * AFLB: 20 * Menopause: no * HRT:no * Family history: both grandfathers with lung cancer * no history of breast or ovarian cancer [facility] Work Phone: 1(474) 631-347208-08-2022 History of Present illness Narrative* MICHAEL WELLER [...] right breast biopsy 2018 at [facility]- fibroepithelial lesion consistent with fibroadenoma * - breast surgery: no * - breast cancer:no * Menarche: 15 * AFLB: 20 * Menopause: no * HRT:no * Family history: both grandfathers with lung cancer * no history of breast or ovarian cancer [facility] Work Phone: 1(404) 644-891208-02-2022 Chief complaint Narrative - Reported* An interactive [...] to discuss insomnia, trazodone not helping [facility] Work Phone: 1(574) 715-851508-02-2022 Chief complaint Narrative - Reported* An interactive [...] visit to discuss insomnia, trazodone not helping [facility] Work Phone: 1(372) 946-546105-06-2022 [place]The [place], [place] NAME: MICHAEL WELLER DATE OF : MEDICAL REC#: [id number] MULTIMEDIA SPECIALIST: [id number] [facility], TRANSADMIT DATE: 07/12/2021 09:46:00 TOMBSTONE ERECTOR DATE: 07/13/2021 21:00 DICTATING PHYSICIAN: MATT STAPLETON DICTATION DATE: 07/12/2021 12:00 OPERATIVE NOTE OPERATION DATE: 07/12/2021 PROCEDURE: Diagnostic laparoscopy. PREOPERATIVE DIAGNOSIS: Dyspareunia. POSTOPERATIVE DIAGNOSIS: Dyspareunia. ANESTHESIA: General. SURGEON: Matt Stapleton D.O. ONLINE BANKING SPECIALIST: CLIFF Durán URINE OUTPUT: Yellow and clear. [...] Stapleton DO on 07/15/2021 03:07 PM EDT [facility] Signed and Approved by: DR MATT STPALETON . 07/15/2021 15:07:00[facility]12-27-2012 History general Narrative - Reported* Type Description Date Medical History 03-04-12 Pathology Report [facility] Surgical History left hip surgery Surgical History tonsillectomy and adenoidectomy Surgical History cholecystectomy Surgical History wisdom teeth Surgical History tumor Queue-it Other Evaluation note* Diagnosis Lentigines- Primary Other dyschromia Multiple benign nevi Benign neoplasm of skin, site unspecified Valles angioma Nevus, non-neoplastic Exposure to tanning bed, sequela Hx of malignant melanoma Personal history of malignant melanoma of skin Dermatofibroma Benign neoplasm of skin, site unspecified [facility] noteNo assessment information availableBl[facility] Work Phone: Evaluation note* Diagnosis Abnormal mammogram Abnormal mammogram, unspecified documented in this encounter [facility] Work Phone: Evaluation note* Diagnosis Lump in female breast Lump or mass in breast documented in this encounter [facility] Work Phone: Evaluation note* Diagnosis Encephalopathy- Primary Unspecified encephalopathy Anxiety Anxiety state, unspecified Attention deficit hyperactivity disorder (ADHD), predominantly inattentive type documented in this encounter [facility] Work Phone: Evaluation note* Diagnosis Anxiety Anxiety state, unspecified documented in this encounter [facility] Work Phone: Evaluation note* Diagnosis Encephalopathy- Primary Unspecified encephalopathy Attention deficit hyperactivity disorder (ADHD), 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, unspecified Anxiety Anxiety state, unspecified documented in this encounter [facility] Work Phone: Evaluation note* Diagnosis Dermatofibroma- Primary Benign neoplasm of skin, site unspecified Lentigines Other dyschromia Multiple benign nevi Benign neoplasm of skin, site unspecified Valles angioma Nevus, non-neoplastic Hx of malignant melanoma Personal history of malignant melanoma of skin [facility] Diagnosis Onset Date Resolution Status UTI (urinary tract infection) [facility] Work Phone: Evaluation note* Diagnosis Acute lower UTI- Primary Urinary tract infection, site not specified Urine frequency documented in this encounter [facility] Work Phone: Evaluation note* Diagnosis Missed menses , unspecified gestational age Encounter for supervision of normal first in first trimester documented in this encounter [facility]* Diagnosis First trimester state, incidental 11 weeks gestation of Antepartum multigravida of advanced maternal age documented in this encounter [facility]* Diagnosis 15 weeks gestation of Second trimester state, incidental Well woman exam with routine gynecological exam Routine gynecological examination Screening, , for anatomic survey Encounter for anatomic survey Exposure to STD Vaginal discharge Leukorrhea, not specified as infective Nausea Nausea alone documented in this encounter [facility]* Diagnosis Diabetes mellitus screening Screening for diabetes mellitus 25 weeks gestation of Second trimester state, incidental Antepartum multigravida of advanced maternal age documented in this encounter [facility]* Diagnosis Third trimester state, incidental 28 weeks gestation of Multigravida of advanced maternal age in third trimester Gestational diabetes mellitus (GDM), antepartum, gestational diabetes method of control unspecified Elevated glucose tolerance test Impaired glucose tolerance test documented in this encounter [facility]* Diagnosis 31 weeks gestation of Third trimester state, incidental Gestational diabetes mellitus (GDM), antepartum, gestational diabetes method of control unspecified documented in this encounter [facility]* Diagnosis Gestational diabetes requiring insulin- Primary Abnormal maternal glucose tolerance, complicating , childbirth, or the puerperium, unspecified as to episode of care [facility] Diagnosis Third trimester state, incidental 33 weeks gestation of documented in this encounter [facility]* Diagnosis Gestational diabetes mellitus (GDM) in third trimester, gestational diabetes method of control unspecified [facility] Diagnosis Insulin controlled gestational diabetes mellitus (GDM) in third trimester- Primary [facility] N[facility]* The last health [...] area gets bumped. * Sees OBGYN through [facility], who has ordered an ultrasound for [...] for walks, read books. No regular exercise. LD-SFNE-Owcnjard 200 Work Phone: History of Present illness [...] area gets bumped. * Sees OBGYN through [facility], who has ordered an ultrasound for [...] for walks, read books. No regular exercise. [facility] Work Phone: History of Present [...] area gets bumped. * Sees OBGYN through [facility], who has ordered an ultrasound for [...] for walks, read books. No regular exercise. KB-VVJI-Psfaqfsm 200 Work Phone: History of Present illness [...] discharge from lumps. * Sees OBGYN through [facility], who has ordered an ultrasound for [...] past, but this made her sleep worse. ON-WXFU-Dnkpzxjg 200 Work Phone: History of Present illness [...] discharge from lumps. * Sees OBGYN through [facility], who has ordered an ultrasound for [...] past, but this made her sleep worse. [facility] Work Phone: History of Present illness Narrative* Patient presents to clinic with complaints of pain during sex and mild Ricardo. Her assessment was significant for mild strength deficits and decreased movement of her pelvic floor. Patient will benefit from skilled PT to address these impairments. * Clinical Presentation: Stable and/or uncomplicated characteristics. * Level of Complexity: low [facility] Work Phone: History of Present illness Narrative* [...] urology for painful intercourse. Planning physical therapy. CK-TMDK-Vxakxmlr 200 Work Phone: History of Present illness [...] urology for painful intercourse. Planning physical therapy. [facility] Work Phone: History of Present [...] been able to have these done yet. CA-XOED-Ilojtebk 200 Work Phone: Instructions* Name Dates Details Instructions not documented LI-Bksxzmjkinoyeq-Pqmdwbbm Work Phone: InstructionsNot on filedocumented in this encounter [facility]ructionsNot [facility] filedocumented in this encounter [facility]InstructionsNot on filedocumented in this encounter [facility] Family History Unknown Family Member Name Dates Details No pertinent family history( V49.89, Z78.9) Comments:Other Status:Active Unknown Family Member Name Dates Details No pertinent family history( V49.89, Z78.9) Comments:Other Status:Active Grandfather Name Dates Details Family history of diabetes chitra ellmartínez(V18.0, Z83.3) Status:Active Unknown Family Member Name Dates [...] [place] [address] [place] [address] Referral ID Status Reason Start Date Expiration Date Visits Requested Visits Authorized [id number] Pending Review Perform Procedure 3 06/17/2023 1 1 Additional Source Comments INFORMATION SOURCE (unrecogn ized section and content) DATE CREATED AUTHOR 07/19/2021 [facility] DATE CREATED AUTHOR AUTHOR'S ORGANIZ ATION 10/16/2021 [facility] DATE CREATED AUTHOR AUTHOR'S ORGANIZ ATION 03/02/2022 [facility] DATE CREATED AUTHOR AUTHOR'S ORGANIZ ATION 10/17/2022 [facility] DATE CREATED AUTHOR AUTHOR'S ORGANIZ ATION 12/11/2022 [facility] DATE CREATED AUTHOR AUTHOR'S ORGANIZ ATION 07/25/2023 [facility] DATE CREATED AUTHOR AUTHOR'S ORGANIZ ATION 09/03/2023 [facility] DATE CREATED AUTHOR AUTHOR'S ORGANIZ ATION 11/14/2023 [facility] DATE CREATED AUTHOR AUTHOR'S ORGANIZ ATION 01/06/2024 [facility] DATE CREATED AUTHOR AUTHOR'S ORGANIZ ATION 03/10/2024 [facility] DATE CREATED AUTHOR AUTHOR'S ORGANIZ ATION 08/16/2024 [facility] DATE CREATED AUTHOR AUTHOR'S ORGANIZ ATION 08/19/2024 [facility] EPIC Reason for Visit (unrecogniz ed section and content) Reason Comments Full Body Skin Check Specialty Diagnoses / Procedures Referred By Contac t Referred To Contact Radiology Diagnoses Abnormal mammogram Procedures BI mammo bilateral diagnostic tomosynthesis BI [place] [address] [address] Referral ID Status Reason Start Date Expiration Date Visits Requested Visits Authorized [id number] Pending Review Perform Procedure 12/03/2022 06/01/2023 1 1 Specialty Diagnoses / Procedures Referred By Contac t Referred To Contact Radiology Diagnoses Lump in female breast Procedures BI [place] [address] [facility] [address] [place] [address] Referral ID Status Reason Start Date Expiration Date Visits Requested Visits Authorized [id number] Pending Review Perform Procedure 3 06/17/2023 1 1 Reason Comments New Patient Visit NPV- ADHD Specialty Diagnoses / Procedures Referred By Contac t Referred To Contact Neurology Diagnoses Anxiety Procedures MN OFFICE/OUTPATIENT NEW HIGH MDM 60-74 [place] [address] [facility] [address] [place] [address] Jhonny Issa MD [address] [facility], [address] [place] [address] Referral ID Status Reason Start Date Expiration Date Visits Requested Visits Authorized [id number] Pending Review Specialty Services Required 12/03/2022 06/01/2023 1 1 Reason Comments Follow-up 3 month FU. Reason Comments Encephalopathy FU. Reason Comments UTI 2 days Reason Comments Amenorrhea Reason Comments Routine Visit Reason Comments Gestational Diabetes Specialty Diagnoses / Procedures Referred By Kezia t Referred To Contact Maternal and Medicine Diagnoses Gestational diabetes mellitus (GDM) in third trimester, gestational diabetes method of control unspecified Matt Stapleton, DO [address] [facility] [place] [address] Phone: tel: fax: Maternal- Medicine at [facility] [address] [place] [address] Phone: tel: fax: Referral ID Status Reason Start Date Expiration Date Visits Requested Visits Authorized [id number] Pending Review Specialty Services Required 08/03/2024 08/03/2025 1 1 Source Comments (unrecognize d section and content) In the event this informatio n is protected by the Federal Confidentiality of Alcohol and Drug Abuse Patient Records regulations: The Federal rules restrict any use of the information to criminally investigate or prosecute any alcohol or drug abuse patient.[facility] the event this information is protected by the Federal Confidentiality of Alcohol and Drug Abuse Patient Records regulations: The Federal rules restrict any use of the information to criminally investigate or prosecute any alcohol or drug abuse patient.[facility] Care Teams (unrecognized sec tion and content) Ship Liner Relationship Specialty Start Date End Date Danielle Infante [address] [facility] [address] [place] [address] PCP - General Family Practice 06/10/16 Team Status: Inactive Member Role Status Dates Danielle Infante , Primary Care Provider Active Kp Alvares DO [facility] Attending Provider Active Team Status: Active Member Role Status Dates Danielle Infante , Primary Care Provider Active Team Status: Inactive Member Role Status Dates Danielle Infante , Primary Care Provider Active Bolivar Sherman , [employer] PROF[employer]OR [employer] Attending Provider Activ e Ship Liner Relationship Specialty [place] [address] [address] PCP - General Family Medicine 10/29/22 Ship Liner Relationship Specialty [place] [address] [address] PCP - General Family Medicine 10/29/22 Ship Liner Relationship Specialty [place] [address] [address] PCP - General Family Medicine 10/29/22 Ship Liner Relationship Specialty [place] [address] [facility] [address] [place] [address] PCP - General Family Medicine 10/29/22 Jhonny Issa MD [address] [facility] [address] [place] [address] Consulting Physician Neurology 02/19/23 Ship Liner Relationship Specialty [place] [address] [facility] [address] [place] [address] PCP - General Family Medicine 10/29/22 Jhonny Issa MD [address] [facility] [address] [place] [address] Consulting Physician Neurology 02/19/23 Ship Liner Relationship Specialty [place] [address] [facility] [address] [place] [address] PCP - General Family Medicine 10/29/22 [place] [address] [facility] [address] [place] [address] PCP - MMO ACO PCP 03/09/23 Jhonny Issa MD [address] [facility], [address] [address] Consulting Physician Neurology 02/19/23 Ship Liner Relationship Specialty Start Date End Date Danielle Infante DO [address] [facility] [address] [place] [address] PCP - General Family Medicine 06/10/16 Team Status: Inactive Member Role Status Dates Danielle Infante DO Primary Care Provider Active Start: September 05, 2023 End: September 05, 2023 Swetha Andresen APRN Attending Provider Active S tart: September 05, 2023 End: September 05, 2023 Team Status: Inactive Member Role Status Dates Swetha Andersen APRN Attending Provider Active S tart: September 05, 2023 End: September 05, 2023 Ship Liner Relationship Specialty Start Date End Date Jhonny Issa MD [address] [facility], [address] [place] [address] Consulting Physician Neurology 02/19/23 Ship Liner Relationship Specialty Start Date End Date Danielle Infante DO [address] [place] [address] PCP - General Family Medicine 07/15/22 Ship Liner Relationship Specialty Start Date End Date Danielle Infante, DO [address] [place] [address] PCP - General Family Medicine 07/15/22 Ship Liner Relationship Specialty Start Date End Date Danielle Infante DO [address] [place] [address] PCP - General Family Medicine 07/15/22 Ship Liner Relationship Specialty Start Date End Date Danielle Infante DO [address] [place] [address] PCP - General Family Medicine 07/15/22 Ship Liner Relationship Specialty Start Date End Date Danielle Infante DO [address] [place] [address] PCP - General Family Medicine 07/15/22 Ship Liner Relationship Specialty Start Date End Date Danielle Infante DO [address] [place] [address] PCP - General Family Medicine 07/15/22 Team Status: Inactive Member Role Status Dates Matt Stapleton DO Attending Provider Active Start : March 08, 2024 End: March 08, 2024 Ship Liner Relationship Specialty Start Date End Date Danielle Infante DO [address] [place] [address] PCP - General Family Medicine 07/15/22 Ship Liner Relationship Specialty Start Date End Date Danielle Infante, DO [address] [place] [address] PCP - General Family Medicine 07/15/22 Ship Liner Relationship Specialty Start Date End Date Danielle Infante, DO [address] [place] [address] PCP - General Family Medicine 07/15/22 Ship Liner Relationship Specialty Start Date End Date Danielle Infante, DO [address] [place] [address] PCP - General Family Medicine 07/15/22 Ship Liner Relationship Specialty Start Date End Date Danielle Infante, DO [address] [place] [address] PCP - General Family Medicine 07/15/22 Ship Liner Relationship Specialty Start Date End Date Danielle Infante, DO [address] [place] [address] PCP - General Family Medicine 07/15/22 Ship Liner Relationship Specialty Start Date End Date Danielle Infante, DO [address] [place] [address] PCP - General Family Medicine 07/15/22 Ship Liner Relationship Specialty Start Date End Date Danielle Infante, DO [address] [place] [address] PCP - General Family Medicine 07/15/22 Ship Liner Relationship Specialty Start Date End Date Danielle Infante, DO [address] [place] [address] [place] [address] PCP - General [facility] Medicine 07/15/22 Ship Liner Relationship Specialty Start Date End Date Danielle Infante, DO [address] [place] [address] PCP - General Family [facility] 07/15/22 Ship Liner Relationship Specialty Start Date End Date Danielle Infante, DO [address] [place] [address] PCP - General [facility] 07/15/22 Goals (unrecognized section and content) Goals [...] BE BASED ON THE PRIMARY CLINICAL RECORDS. [facility]. provides no warranty or guarantee of the accuracy or completeness of information in this document.
--- NOTE | 2024-08-25 17:23 | US_ITS ---
[place] [id number] Patient Name: MICHAEL ROQUE MRN: [id number] date: 1985 Sex: F Assigned Patient Location: Current Patient Location: Accession/Order Number: [id number] Exam Date: 08/25/2024 18:13 Report Date: 08/25/2024 18:15 At the request of: NEISHA PETERSON DO Procedure: US OB BPP w non-stress US OB BPP w non-stress 08/25/2024 5:51 PM SIGNS AND SYMPTOMS: ^10/01/2024 ^GESTATIONAL DIABTES MELLITUS O24.419 PROTOCOL: Transabdominal sonographic imaging of the gravid uterus COMPARISON: 08/19/2024 FINDINGS: Estimated gestational age is 34 weeks 5 days heart rate: 139 bpm Amniotic fluid index: 13.33 cm. The deepest vertical pocket measures 5.7 cm. Biophysical profile: movement: 2/2 tone: 2/2 breathing movements: 2/2 Amniotic fluid volume: 2/2 US/US OB BPP w non-stress IMPRESSION: Biophysical profile score: 8/8 Impression dictated by: Kennedy Tobar M.D. 08/25/2024 6:15 PM Dictation [facility] Electronically authenticated by: [id number] Y Date: 08/25/2024 18:15
== END 2024-08-25 17:50 | disposition home or self-care (01) ==
LOC: US 16:48 → FBC 16:50
PROVIDERS: Visit Provider Obstetrics & Gynecology
DX: O24.419 Gestational diabetes mellitus in pregnancy, unspecified control (principal); Z3A.34 34 weeks gestation of pregnancy
CPT/HCPCS: 76818

== ENCOUNTER 2024-08-30 09:58 | Outpatient (OUT) | payer OTHER, SELFPAY ==
[2024-08-30 10:52] VITALS: BP 110/76; PULSE 116
== END 2024-08-30 10:57 | disposition home or self-care (01) ==
LOC: FBCO 09:58 → FBC 10:15
PROVIDERS: Visit Provider Obstetrics & Gynecology
DX: O24.419 Gestational diabetes mellitus in pregnancy, unspecified control (principal); Z3A.35 35 weeks gestation of pregnancy
CPT/HCPCS: 59025

== ENCOUNTER 2024-09-02 15:53 | Outpatient (OUT) | payer OTHER, SELFPAY ==
--- NOTE | 2024-09-02 | US_ITS ---
The [address] [address] Patient Name: MICHAEL ROQUE MRN: [id number] date: 1985 Sex: F Assigned Patient Location: Current Patient Location: Accession/Order Number: [id number] Exam Date: 09/05/2024 08:14 Report Date: 09/05/2024 08:20 At the request of: NEISHA PETERSON DO Procedure: US OB growth ULTRASOUND OB GROWTH COMPARISON: 03/31/2024 CLINICAL DATA: weight and consistent with dates. There is a single live intrauterine gestation in cephalic presentation. The amniotic fluid index measures 12.7 cm which is in normal range. There is a posterior placenta. cardiac and somatic activity are present with heart rate of 171 bpm. The following measurements were obtained: Biparietal diameter 9.5 cm 38 weeks 5 days >97% Head circumference 33.4 cm 38 weeks 2 days 79% Abdominal circumference 36.1 cm 40 weeks 0 days >97% Femur length 6.9 cm 35 weeks 2 days 33% The composite ultrasound age based on these measurements is 38 weeks 1 day +/- 2 weeks 5 days. The estimated date of delivery is 09/15/2024. This is at the upper limits of expected interval growth. The estimated weight is 7 lbs. 14 oz. +/- 1 lb. 3 oz. (greater than 97%). US/US OB growth IMPRESSION: SINGLE LIVE INTRAUTERINE GESTATION WITH ULTRASOUND AGE OF 38 WEEKS 1 DAY. THIS IS AT THE UPPER LIMITS OF EXPECTED GROWTH BASED ON THE COMPARISON. Impression dictated by: Bisi Holden M.D. 09/05/2024 8:20 AM Dictation Location: [place] [address] Electronically authenticated by: [id number] Y Date: 09/05/2024 08:20
--- NOTE | 2024-09-02 16:03 | US_ITS ---
[place] [id number] Patient Name: MICHAEL ROQUE MRN: [id number] date: 1985 Sex: F Assigned Patient Location: [facility] Current Patient Location: Accession/Order Number: [id number] Exam Date: 09/03/2024 18:03 Report Date: 09/03/2024 18:07 At the request of: NEISHA PETERSON DO Procedure: US OB BPP w non-stress US OB BPP w non-stress 09/02/2024 4:51 PM SIGNS AND SYMPTOMS: ^GESTATIONAL DIABETES MELLITUS O24.419 COMPARISON: 08/25/2024 FINDINGS: heart rate: 171 bpm Amniotic fluid index: 12.7 cm Biophysical profile: movement: 2/2 tone: 2/2 breathing movements: 2/2 Amniotic fluid volume: 2/2 US/US OB BPP w non-stress IMPRESSION: Biophysical profile score: 8/8 Impression dictated by: Orlando Bhatia M.D. 09/03/2024 6:07 PM Dictation Location: [place] [address] Electronically authenticated by: [id number] Y Date: 09/03/2024 18:07
[2024-09-02 17:07] VITALS: BP 124/86; PULSE 88
== END 2024-09-02 17:09 | disposition home or self-care (01) ==
LOC: US 15:53 → FBC 15:54
PROVIDERS: Visit Provider Obstetrics & Gynecology
DX: O24.419 Gestational diabetes mellitus in pregnancy, unspecified control (principal); Z3A.38 38 weeks gestation of pregnancy
CPT/HCPCS: 76816; 76818

== ENCOUNTER 2024-09-05 10:11 | Outpatient (OUT) | payer OTHER, SELFPAY ==
--- OUTSIDE RECORDS SUMMARY | 2024-08-31 11:20 | XMS_ITS | Encounter Summary ---
Author Organization [facility] Address [address] [place] [address] Care Team Providers Care Marketing Community Liaison Name Role Phone Juaquin Rae DO Primary Care Provider +1- [phone] Reason for Visit * Reason Comments Routine Visit Encounter Details Date Type Department Care Team (Late st Contact Info) Description 08/31/2024 11:20 AM EDT Routine [facility] [address] [facility] [place] [phone] Matt Stapleton DO [address] [facility] [address], [facility]11 35 weeks gestation of ([facility]); Third trimester ([facility]); Excessive growth affecting management of , antepartum, single or unspecified fetus ([facility]); Multigravida of advanced maternal age in third trimester ([facility]); Insulin controlled gestational diabetes mellitus (GDM) in third trimester ([facility]) Social History Tobacco Use Types Packs/Day Years [...] to check FSBS. Blood Glucose Monitoring Suppl ([employer]rog[employer]s Glucometer) w/Device kit 1 kit, Does not [...] nursing note reviewed. Exam conducted with a manager document present. Vitals: Estimated body mass index is 40.17 kg/m?? as calculated from the following: Height as of 05/30/21: 5' 5 . Weight as of this encounter: 241 lb 6.4 oz. BP: 116/70 Patient's last menstrual period was 12/18/2023. ASSESSMENT & PLAN ICD-10-CM 1. 35 weeks gestation of ([facility]) Z3A.35 POCT urinalysis dipstick manually resulted 2. Third trimester ([facility]) Z34.93 POCT urinalysis dipstick manually resulted 3. Excessive growth affecting management of , antepartum, single or unspecified fetus ([facility]) O36.60X0 US OB follow up transabdominal approach 4. Multigravida of advanced maternal age in third trimester ([facility]) O09.523 5. Insulin controlled gestational diabetes mellitus (GDM) in third trimester ([facility]) O24.414 Return OB: Patient presents today for [...] Care Team (Late st Contact Info) Description 09/06/2024 9:30 AM EDT Routine [facility] [address] [place] [address] Matt Stapleton DO [address] [place] [address] 10/26/2024 4:00 PM EDT Office Visit [facility] [address] [place] [address] Matt Stapleton DO [address] [place] [address] Scheduled Orders Name Type Priority Associated Diagnoses Orde r Schedule US OB follow up transabdominal approach Imaging Routine Excessive growth affecting management of , antepartum, single or unspecified fetus ([facility]) Expected: 08/31/2024, Expires: 12/31/2024 documented as of this encounter Goals Goal Patient Goal Type Associated Problems Recent Progress Patient-Stated? Author Reminders Care Plan OB Reminders No Open Scheduling, Background documented as of this encounter Procedures Procedure Name Priority Date/Time Associated Diagnosis Comments POCT URINALYSIS DIPSTICK Routine 08/31/2024 11:49 AM EDT 35 weeks gestation of ([facility]) Third trimester ([facility]) documented in this encounter Results * (ABNORMAL) [...] Visit Diagnoses Diagnosis 35 weeks gestation of ([facility]) Third trimester ([facility]) state, incidental Excessive growth affecting management of , antepartum, single or unspecified fetus ([facility]) Multigravida of advanced maternal age in third trimester ([facility]) Insulin controlled gestational diabetes mellitus (GDM) in third trimester ([facility]) documented in this encounter Additional Health Concerns Active Problems Noted Date Diagnosed Date OB Reminders 04/14/2024 documented as of this encounter Care Teams Marketing Community Liaison Relationship Specialty Start Date End Date Juaquin Rae DO [address] [place] [address] PCP - General Family Medicine 07/15/22 documented as of this encounter
--- OUTSIDE RECORDS SUMMARY | 2024-09-05 10:13 | XMS_ITS | Encounter Summary ---
Author Organization [facility] Address [address] [place] [address] Care Team Providers Care Self Pay Representative Name Role Phone Juaquin Rae Primary Care Provid er Source Comments In the event this information is protected by the Federal Confidentiality of Alcohol and Drug AbusePatient Records regulations: The Federal rules restrict any use of the information to criminally investigate or prosecute any alcohol or drug abuse patient.[facility] Encounter Details Date Type Department Care Team (Late st Contact Info) Description 02/09/2018 Patient Msg Dermatology [address] [place], [place] [id number] Provider, Ccf Reschedule 02/09/2018 appointment Social History [...] on filedocumented in this encounter Care Teams Self Pay Representative Relationship Specialty Start Date End Date Juaquin Rae DO [address] [place] [id number] PCP - General Family Medicine 06/10/16 documented as of this encounter
--- OUTSIDE RECORDS SUMMARY | 2024-09-05 10:13 | XMS_ITS | Encounter Summary ---
Author Organization [facility] Address [address] [place] [address] Care Team Providers Care Medical Record Coder Name Role Phone Juaquin Rae Primary Care Provider +1- [phone] Encounter Details Date Type Department Care Team (Late st Contact Info) Description 2023 Orders Only [facility] OB [address] [place] [address] Susi Hurtado [address] [place] [address] Social History Tobacco Use Types Packs/Day Years [...] Description 09/06/2024 9:30 AM EDT Routine [facility] OB [address] [place] [address] Matt Stapleton DO [address] [place], [place] [address] 10/26/2024 4:00 PM EDT Office Visit [facility] OB [address] [place] [address] Matt Stapleton, [address] [place] [address] documented as of this encounter Procedures Procedure Name Priority Date/Time Associated Diagnosis Comments PAP SMEAR Routine 10/20/2023 12:00 AM EDT documented in this encounter Results * Pap Smear (10/20/2023 12:00 AM EDT) Swab Cervical swab / Unknown us Matt Stapleton DO LAB CYTOLOGY ORDERABLES Final Re sult EXTERNAL LAB documented in this encounter Visit Diagnoses Not on filedocumented in this encounter Care Teams Medical Record Coder Relationship Specialty Start Date End Date Juaquin Rae DO [address] [place] [address] PCP - General Family Medicine 07/15/22 documented as of this encounter
--- OUTSIDE RECORDS SUMMARY | 2024-09-05 10:13 | XMS_ITS | Encounter Summary ---
Author Organization [facility] Address [address] [place] [address] Care Team Providers Care Cpr Ambulance Driver Name Role Phone KeenanJuaquin pittman Amira SORIA Primary Care Provider +1- [phone] Encounter Details Date Type Department Care Team (Late st Contact Info) Description 02/16/2024 Abstract [facility] OB [address] [place] [phone] [facility] [address] [place], [place] [address] Social History Tobacco Use Types Packs/Day Years [...] Description 09/06/2024 9:30 AM EDT Routine [facility] OB [address] [place] [phone] Matt Stapleton DO [facility] [address] [place], [place] [phone] 10/26/2024 4:00 PM EDT Office Visit [place] [address] Matt Stapleton, [address] [place] [address] documented as of this encounter Visit Diagnoses Not on filedocumented in this encounter Care Teams Cpr Ambulance Driver Relationship Specialty Start Date End Date Juaquin Rae DO [address] [facility] [address] [place] [address] PCP - General Family Medicine 07/15/22 documented as of this encounter
--- OUTSIDE RECORDS SUMMARY | 2024-09-05 10:13 | XMS_ITS | Encounter Summary ---
Author Organization [facility] Address [address] [place] [address] Care Team Providers Care Forklift Supervisor Name Role Phone Juaquin Rae DO Primary Care Provid er Source Comments In the event this information is protected by the Federal Confidentiality of Alcohol and Drug AbusePatient Records regulations: The Federal rules restrict any use of the information to criminally investigate or prosecute any alcohol or drug abuse patient.[facility] Encounter Details Date Type Department Care Team (Late st Contact Info) Description 10/01/2017 Patient Msg Internal Medicine [facility] [place] [address] Renee Sawyer MD [address] [place] [address] RE: Appointment Cancellation Request Social [...] on filedocumented in this encounter Care Teams Forklift Supervisor Relationship Specialty Start Date End Date Juaquin Rae DO [address] [facility] [address] [place] [address] PCP - General Family Medicine 06/10/16 documented as of this encounter
--- OUTSIDE RECORDS SUMMARY | 2024-09-05 10:13 | XMS_ITS | Encounter Summary ---
Author Organization [facility] Address [address] [place] [address] Care Team Providers Care Historiography Teacher Name Role Phone Juaquin Rae DO Primary Care Provider +1- [phone] Encounter Details Date Type Department Care Team (Late st Contact Info) Description 04/05/2024 Abstract [facility] [address] [place] [address] [place] [phone] Juaquin Rae, DO [address] [place] [address] Social History Tobacco Use Types Packs/Day Years [...] Routine [facility] OB [address] [place] [phone] Matt Stapleton DO [address] [place] [address] 10/26/2024 4:00 PM EDT Office Visit [facility] OB [address] [place] [address] Matt Stapleton, [address] [facility] [place] [address] documented as of this encounter Visit Diagnoses Not on filedocumented in this encounter Care Teams Historiography Teacher Relationship Specialty Start Date End Date Juaquin Rae DO [address] [facility] [address] [place] [address] PCP - General Family Medicine 07/15/22 documented as of this encounter
--- OUTSIDE RECORDS SUMMARY | 2024-09-05 10:13 | XMS_ITS | Encounter Summary ---
Author Organization [facility] Address [address] [place] [address] Care Team Providers Care Biodiesel Production Associate Name Role Phone Juaquin Rae Primary Care Provider +1- [phone] Encounter Details Date Type Department Care Team (Late st Contact Info) Description 01/30/2024 Clinisync Result Encounter [facility] External Department Unsolicited Neisha Stapleton, DO [address] [place], [facility]11 Social History Tobacco Use Types Packs/Day [...] Routine [facility] [place] [address] [place] [address] Neisha Stapleton DO [address] [place], [place] [address] 10/26/2024 4:00 PM EDT Office Visit [facility] [place] [address] [place] [address] Neisha Stapleton, DO [address] [place] [address] documented as of this encounter Procedures Procedure Name Priority Date/Time Associated Diagnosis Comments US OB TRANSVAGINAL 01/30/2024 7: 28 AM EST documented in this encounter Results * US OB TRANSVAGINAL (01/30/2024 7:28 AM EST) Anatomical Region Laterality Modality Other 01/30/2024 7:28 AM EST Narrative 01/30/2024 7:31 AM EST The [address] [address] Ultrasound Report Signed Patient: MICHAEL ROQUE MR#: [id number] : 1985 Acct:[id number] Age/Sex: 38 / F ADM Date: 01/29/24 Loc: US Attending Dr: Neisha Stapleton D.O. Ordering Physician: Neisha Stapleton D.O. Date of Service: 01/29/24 Procedure(s): US OB transvaginal Accession Number(s): [id number] cc: Neisha Stapleton D.O.; Physician,Non-Staff M.Cristal The [address] [address] Patient Name: MICHAEL ROQUE MRN: [id number] date: 1985 Sex: F Assigned Patient Location: US Current Patient Location: Accession/Order Number: [id number] Exam Date: 01/29/2024 16:10 Report Date: 01/30/2024 [...] M.D. Signed By: 01/30/24730 DD/ 7 TD/TT: Cryptographer: Procedure Note Radiology, Radiologist, MD - 01/30/2024 [place] [address] Ultrasound Report Signed Patient: MICHAEL ROQUE RMR#: [id number] : 1985Acct:[id number] Age/Sex: 38 / FADM Date: 01/29/24 Loc: US Attending Dr: Neisha Stapleton D.O. Ordering Physician: Neisha Stapleton D.O. Date of Service: 01/29/24 Procedure(s): US OB transvaginal Accession Number(s): [id number] cc: Neisha Stapleton D.O.; Physician,Non-Staff Ramiro The [place] [id number] Patient Name: MICHAEL ROQUE MRN: [id number] date: 1985 Sex: F Assigned Patient Location: US Current Patient Location: Accession/Order Number: [id number] Exam Date: 01/29/2024 16:10 Report Date: 01/30/2024 [...] Wolff M.D. Signed By:01/30/24730 DD/ 7 TD/TT: Cryptographer: us Neisha Stapleton DO [facility] Final Result documented in this encounter Visit Diagnoses Not on filedocumented in this encounter Care Teams Biodiesel Production Associate Relationship Specialty Start Date End Date Juaquin Rae DO [address] [address] PCP - General Family Medicine 07/15/22 documented as of this encounter
--- OUTSIDE RECORDS SUMMARY | 2024-09-05 10:13 | XMS_ITS | Clinical Summary ---
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 Last address used for calculation [address] [...] 10/26/2006 Cervical Cancer Screening 10/26/2008 Covid-19 Vaccine ( - season) 2023, 10/04/2020 Influenza Vaccine (Season Ended) 2024 Insurance [facility] Member Subscriber Plan / Payer (Ef fective 2020-Present) Name:Jonna Weller Relation to Subscriber:Self Name:Jonna Weller Payer ID:Not on file Type:PPO Address: [place] [id number] Care Teams Cogeneration Operator Relationship Specialty Start Date End Date Juaquin Rae DO [address] [facility] [address] [place] [address] PCP - General Family Medicine 06/10/16
--- OUTSIDE RECORDS SUMMARY | 2024-09-05 10:13 | XMS_ITS | Encounter Summary ---
Author Organization [facility] Address [address] [place] [address] Care Team Providers Care Wine Steward Name Role Phone Juaquin Rae DO Primary Care Provid er Source Comments In the event this information is protected by the Federal Confidentiality of Alcohol and Drug AbusePatient Records regulations: The Federal rules restrict any use of the information to criminally investigate or prosecute any alcohol or drug abuse patient.[facility] Encounter Details Date Type Department Care Team (Late st Contact Info) Description 02/08/2018 Patient Msg Dermatology [address] [place] [address] Provider, Ccf Appointment tomorrow Social [...] on filedocumented in this encounter Care Teams Wine Steward Relationship Specialty Start Date End Date Juaquin Rae DO [address] [facility] [address] [place] [address] PCP - General Family Medicine 06/10/16 documented as of this encounter
--- OUTSIDE RECORDS SUMMARY | 2024-09-05 10:13 | XMS_ITS | Encounter Summary ---
Author Organization [facility] Address [address] [place] [address] Care Team Providers Care Bail Bonding Agent Name Role Phone KeenanJuaquin pittman Amira SORIA Primary Care Provider +1- [phone] Encounter Details Date Type Department Care Team (Late st Contact Info) Description 03/11/2024 Abstract [facility] OB [address] [place] [address] Matt Stapleton DO [facility] [address] [place], [place] [address] Social History Tobacco Use Types Packs/Day Years [...] Description 09/06/2024 9:30 AM EDT Routine [facility] OB [address] [place] [address] Matt Stapleton DO [facility] [address] [place], [place] [address] 10/26/2024 4:00 PM EDT Office Visit [facility] [address] Matt Stapleton, [address] [facility] [place] [address] documented as of this encounter Visit Diagnoses Not on filedocumented in this encounter Care Teams Bail Bonding Agent Relationship Specialty Start Date End Date Juaquin Rae DO [address] [facility] [address] [place] [address] PCP - General Family Medicine 07/15/22 documented as of this encounter
--- OUTSIDE RECORDS SUMMARY | 2024-09-05 10:13 | XMS_ITS | Encounter Summary ---
Author Organization [facility] Address [address] [place] [address] Care Team Providers Care High School Music Director Name Role Phone Juaquin Rae Amira SORIA Primary Care Provider +1- [phone] Encounter Details Date Type Department Care Team (Late st Contact Info) Description 02/09/2024 Clinisync Result Encounter [facility] External Department Unsolicited Neisha Stapleton, DO [address] [place] [place], [facility]11 Social History Tobacco Use Types Packs/Day [...] Routine [facility] BCP OB [address] [place] [address] Neisha Stapleton DO [address] [place], [place] [address] 10/26/2024 4:00 PM EDT Office Visit [facility] BCP OB [address] [place] [address] Neisha Stapleton, DO [address] [place] [address] [phone] (work) documented as of this encounter Procedures Procedure Name Priority Date/Time Associated Diagnosis Comments US OB TRANSVAGINAL 02/09/2024 10 :09 AM EST documented in this encounter Results * US OB TRANSVAGINAL (02/09/2024 10:09 AM EST) Anatomical Region Laterality Modality Other 02/09/2024 10:0 9 AM EST Narrative 02/09/2024 10:12 AM EST [address] [address] Ultrasound Report Signed Patient: MICHAEL WELLER MR#: [id number] : 1985 Acct:[id number] Age/Sex: 38 / F ADM Date: 02/09/24 Loc: NOMS Attending Dr: Neisha Stapleton D.O. Ordering Physician: Neisha Stapleton D.O. Date of Service: 02/09/24 Procedure(s): US OB transvaginal Accession Number(s): [id number] cc: Neisha Stapleton D.O.; Physician,Non-Staff M.Cristal [address] [address] Patient Name: MICHAEL WELLER MRN: [id number] date: 1985 Sex: F Assigned Patient Location: [facility] Current Patient Location: [facility] Accession/Order Number: [id number] Exam Date: 02/09/2024 09:06 Report Date: 02/09/2024 [...] Signed By: 02/09/24 1012 DD/ 1009 TD/TT: Body Make Up Artist: Procedure Note Radiology, Radiologist, MD - 02/09/2024 [place] [address] Ultrasound Report Signed Patient: MICHAEL WELLER RMR#: [id number] : 1985Acct:[id number] Age/Sex: 38 / FADM Date: 02/09/24 Loc: NOMS Attending Dr: Neisha Stapleton D.O. Ordering Physician: Neisha Stapleton D.O. Date of Service: 02/09/24 Procedure(s): US OB transvaginal Accession Number(s): [id number] cc: Neisha Stapleton D.O.; Physician,Non-Staff Ramiro The [address] [address] Patient Name: MICHAEL WELLER MRN: [id number] date: 1985 Sex: F Assigned Patient Location: [facility] Current Patient Location: [facility] Accession/Order Number: [id number] Exam Date: 02/09/2024 09:06 Report Date: 02/09/2024 [...] M.D. Signed By:02/09/24 1012 DD/ 1009 TD/TT: Body Make Up Artist: us Neisha Stapleton DO [facility] Final Result documented in this encounter Visit Diagnoses Not on filedocumented in this encounter Care Teams High School Music Director Relationship Specialty Start Date End Date Juaquin Rae DO [address] [place] [address] [place] [address] PCP - General Family Medicine 07/15/22 documented as of this encounter
--- OUTSIDE RECORDS SUMMARY | 2024-09-05 10:13 | XMS_ITS | Clinical Summary ---
Author Organization [facility] Address [id number] [address] [place] [address] Care Team Providers Care Member Of Congress Name Role Phone Unavailable Primary Care Provider [...] as needed for nausea or vomiting. Active pen needle, diabetic 32 gauge x needleIndications :Insulin controlled gestational diabetes mellitus (GDM) in third trimester Use to inject insulin once daily as prescribed. Use a new pen needle for each insulin pen injection. 100 each 1 08/10/19 25 Active insulin glargine (LANTUS SOLOSTAR U-100 INSULIN) 100 unit/mL (3 mL) insulin penIndications:In sulin controlled gestational diabetes mellitus (GDM) in third trimester Inject 17 units, subq, every evening. Prime with 2 units before each injection. 08/31/19 Active insulin lispro (HumaLOG KwikPen Insulin) 100 unit/mL insulin pen Inject 3 units before dinner. Prime with two units. 15 mL 3 08/31/19 25 Active insulin NPH (HumuLIN N,NovoLIN N) 100 unit/mL injection Inject under the skin in the morning and in the evening. Inject with meals. 025 Discontinued(A lternate therapy) insulin NPH and regular human (HumuLIN 70-30,NovoLIN 70-30) 100 unit/mL (70-30) injection Inject under the skin in the morning and in the evening. Inject before meals. 025 Discontinued(E rror) insulin NPH and regular human (HumuLIN 70-30,NovoLIN 70-30) 100 unit/mL (70-30) injection Inject under the skin in the morning and in the evening. Inject before meals. Stated not taking . 025 Discontinued(P regnancy) insulin glargine (LANTUS SOLOSTAR U-100 INSULIN) 100 unit/mL (3 mL) insulin penIndications:In sulin controlled gestational diabetes mellitus (GDM) in third trimester Inject 10 units, subq, every evening. Prime with 2 units before each injection. 15 mL 2 08/10/19 025 Discontinued insulin glargine (LANTUS SOLOSTAR U-100 INSULIN) 100 unit/mL (3 mL) insulin penIndications:In sulin controlled gestational diabetes mellitus (GDM) in third trimester Inject 14 units, subq, every evening. Prime with 2 units before each injection. 08/31/19 025 Discontinued Active Problems Problem Noted Date Diagnosed Date Gestational diabetes requiring insulin Estimated Date of Delivery Comme nts Yes 10/01/2024 Based on Ultraso und Encounters Date Type Department Care Team Description 09/02/2024 Telephone Maternal- Medicine at [facility] [address] [place] [address] Shira Ospina LD 08/30/2024 Telephone Maternal- Medicine at [facility] [address] [place] [address] Sherin Zaragoza RN 08/30/2024 Orders Only Maternal- Medicine at [place] [address] [place] [address] Lucretia Art, PA-C Insulin controlled gestational diabetes mellitus (GDM) in third trimester 08/30/2024 Orders Only Maternal- Medicine at [place] [address] [place] [address] Lucretia Art, PA-C Insulin controlled gestational diabetes mellitus (GDM) in third trimester 08/17/2024 Telephone Maternal- Medicine at [address] [address] Charlene Nguyen CMA 08/15/2024 1:30 PM EDT Telemedicine Maternal- Medicine at [place] [address] [place] [address] Lucretia Art, PA-C Gestational diabetes requiring insulin (Primary Dx) 08/15/2024 Travel 08/09/2024 10:30 AM EDT Support Visit Maternal- Medicine at [address] [address] Noelle Johnston, RN Ignacia Carvalho LD Gestational diabetes mellitus (GDM) in third trimester, gestational diabetes method of control unspecified 08/09/2024 Telephone Maternal- Medicine at [address] [address] Noelle Johnston, RN 08/09/2024 Orders Only Maternal- Medicine at [place] [address] [place] [address] Noelle Johnston, RN Insulin controlled gestational diabetes mellitus (GDM) in third trimester (Primary Dx) 08/09/2024 Orders Only Maternal- Medicine at [address] [place] [address] Bárbara Canas, BARN HAND-CNM Insulin controlled gestational diabetes mellitus (GDM) in third trimester (Primary Dx) 08/09/2024 Travel 08/04/2024 Orders Only Maternal- Medicine at [place] [address] [place] [address] Ref Prov, Not In System 08/03/2024 Orders Only Maternal- Medicine at [place] [address] [place] [address] Ref Prov, Not In System 08/03/2024 Abstract Maternal- Medicine at [place] [address] [place] [address] External, Scanning Provider from Last 3 Months [...] Last 3 Months Insurance [employer]
--- OUTSIDE RECORDS SUMMARY | 2024-09-05 10:13 | XMS_ITS | Encounter Summary ---
Author Organization [facility] tem Address [id number] [address] [place] [address] Care Team Providers Care Clinical Documentation Consultant Name Role Phone Unavailable Primary Care Provider Unavailabl e Encounter Details Date Type Department Care Team (Late st Contact Info) Description 08/04/2024 Orders Only Maternal- Medicine at [facility] [address] [place] [address] Ref Prov, [place] [address] Social History Tobacco Use Types Packs/Day Years [...]
--- OUTSIDE RECORDS SUMMARY | 2024-09-05 10:13 | XMS_ITS | Encounter Summary ---
Author Organization [facility] Address [address] [place] [address] Care Team Providers Care Electronics Manufacturer Name Role Phone KeeannJuaquin pittman Amira SORIA Primary Care Provider +1- [phone] Encounter Details Date Type Department Care Team (Late st Contact Info) Description 03/14/2024 Abstract [facility] OB [address] [place] [address] Matt Stapleton DO [facility] [address] [place], [place] [address] Social History Tobacco Use Types Packs/Day Years [...] Description 09/06/2024 9:30 AM EDT Routine [facility] OB [address] [place] [address] Matt Stapleton DO [facility] [address] [place], [place] [id number] 10/26/2024 4:00 PM EDT Office Visit [facility] [address] Matt Stapleton, [address] [facility] [place] [address] documented as of this encounter Visit Diagnoses Not on filedocumented in this encounter Care Teams Electronics Manufacturer Relationship Specialty Start Date End Date Juaquin Rae DO [address] [facility] [address] [place] [address] PCP - General Family Medicine 07/15/22 documented as of this encounter
--- OUTSIDE RECORDS SUMMARY | 2024-09-05 10:13 | XMS_ITS | Encounter Summary ---
Author Organization [facility] Address [address] [place] [address] Care Team Providers Care Vibration Engineer Name Role Phone Juaquin Rae Primary Care Provider +1- [phone] Encounter Details Date Type Department Care Team (Late st Contact Info) Description 11/21/2023 Clinisync Result Encounter NOM[facility] External Department Unsolicited Neisha Stapleton, DO [address] [place] [address] [place], [facility]11 Social History Tobacco Use Types Packs/Day Years [...] [place] [address] Neisha Stapleton DO [address] [place], [place] [address] 10/26/2024 4:00 PM EDT Office Visit [facility] BCP OB [address] [place] [address] Neisha Stapleton, DO [address] [place] [address] documented as of this encounter Procedures Procedure Name Priority Date/Time Associated Diagnosis Comments US PELVIS W/ TRANSVAGINAL 11/21/2023 9:17 AM EDT documented in this encounter Results * US PELVIS W/ TRANSVAGINAL (11/21/2023 9:17 AM EDT) Anatomical Region Laterality Modality Other 11/21/2023 9:17 AM EDT Narrative 11/21/2023 9:20 AM EDT [place] [id number] Ultrasound Report Signed Patient: MICHAEL WELLER MR#: [id number] : 1985 Acct:[id number] Age/Sex: 38 / F ADM Date: 11/21/23 Loc: US Attending Dr: Neisha Stapleton D.O. Ordering Physician: Neisha Stapleton D.O. Date of Service: 11/21/23 Procedure(s): US pelvis w/ transvaginal Accession Number(s): [id number] cc: Neisha Stapleton D.O.; Physician,Non-Staff M.DJonathan [address] [address] Patient Name: MICHAEL WELLER MRN: [id number] date: 1985 Sex: F Assigned Patient Location: US Current Patient Location: US Accession/Order Number: [id number] Exam Date: 11/21/2023 08:14 Report Date: 11/21/2023 [...] M.D. Signed By: 11/21/23919 DD/ 6 TD/TT: Crowning Inspector: Procedure Note Radiology, Radiologist, MD - 11/21/2023 [place] [address] Ultrasound Report Signed Patient: MICHAEL WELLER RMR#: [id number] : 1985Acct:[id number] Age/Sex: 38 / FADM Date: 11/21/23 Loc: US Attending Dr: Neisha Stapleton D.O. Ordering Physician: Neisha Stapleton D.O. Date of Service: 11/21/23 Procedure(s): US pelvis w/ transvaginal Accession Number(s): [id number] cc: Neisha Stapleton D.O.; Physician,Non-Staff Ramiro The [place] [id number] Patient Name: MICHAEL WELLER MRN: [id number] date: 1985 Sex: F Assigned Patient Location: US Current Patient Location: US Accession/Order Number: [id number] Exam Date: 11/21/2023 08:14 Report Date: 11/21/2023 [...] Wolff M.D. Signed By:11/21/23919 DD/ 6 TD/TT: Crowning Inspector: us Neisha Daya DO [facility] Final Result documented in this encounter Visit Diagnoses Not on filedocumented in this encounter Care Teams Vibration Engineer Relationship Specialty Start Date End Date Juaquin Rae DO [address] [facility] [address] [place] [address] PCP - General Family Medicine 07/15/22 documented as of this encounter
--- OUTSIDE RECORDS SUMMARY | 2024-09-05 10:13 | XMS_ITS | Encounter Summary ---
Author Organization [facility] tem Address [facility]08 [address] [place] [address] Care Team Providers Care Magician/Illusionist Name Role Phone Unavailable Primary Care Provider Unavailabl e Encounter Details Date Type Department Care Team (Late st Contact Info) Description 08/03/2024 Orders Only [facility]- [facility] at [facility] [address] [place] [address] Ref Prov, [place] [address] Social History Tobacco Use Types Packs/Day Years [...]
--- OUTSIDE RECORDS SUMMARY | 2024-09-05 10:14 | XMS_ITS | Encounter Summary ---
Author Organization [facility] Address [address] [place] [address] Care Team Providers Care Pigeon Fancier Name Role Phone Juaquin Rae DO Primary [...] (Late st Contact Info) Description 05/24/2024 Patient [facility] [place] [address] Sobeida Berrios RPh At your next appointment, choose [facility]. Social History Tobacco Use Types Packs/Day Years Used Date Smoking Tobacco: Never Alcohol Use Standard Drinks/Week Comments Yes 0 (1 standard drink = 0.6 oz pur e alcohol) occasional Area Deprivation Index Answer Date Renaldo rded National Score (1-100), lower number is lower ri sk 52 09/01/2023 State Score (1-10), lower number is lower risk 3 09/01/2023 Data from: https://www.neighborhoodatlas.medicine.[facility].edu/. Last address used for calculation [address] [...] on filedocumented in this encounter Care Teams Pigeon Fancier Relationship Specialty Start Date End Date Juaquin Rae DO [address] [facility] [address] [place] [address] PCP - General Family Medicine 06/10/16 documented as of this encounter
--- OUTSIDE RECORDS SUMMARY | 2024-09-05 10:14 | XMS_ITS | Encounter Summary ---
Author Organization [facility] Address [address] [place] [address] Care Team Providers Care Rivet Passer Name Role Phone Juaquin Rae Primary Care Provider [phone]- [phone] Encounter Details Date Type Department Care Team (Late st Contact Info) Description 09/05/2024 Clinisync Result Encounter [facility] External Department Unsolicited Neisha Stapleton [facility] [place], [place] [id number] Social History Tobacco Use Types Packs/Day Years [...] EDT Routine [facility] [address] [place] [address] Neisha Stapleton DO [facility] [address] [place], [place] [id number] 10/26/2024 4:00 PM EDT Office Visit [facility] [address] [place] [address] Neisha Stapleton DO [address] [facility] [place] [address] documented as of this encounter Goals Goal Patient Goal Type Associated Problems Recent Progress Patient-Stated? Author Reminders Care Plan OB Reminders No Open Scheduling, Background documented as of this encounter Procedures Procedure Name Priority Date/Time Associated Diagnosis Comments US OB GROWTH 09/05/2024 8:20 AM EDT documented in this encounter Results * US OB GROWTH (09/05/2024 8:20 AM EDT) Anatomical Region Laterality Modality Other 09/05/2024 8:20 AM EDT Narrative 09/05/2024 8:22 AM EDT [address] [address] Ultrasound Report Signed Patient: MICHAEL ROQUE MR#: [id number] : 1985 Acct:[id number] Age/Sex: 38 / F ADM Date: 09/02/24 Loc: US Attending Dr: Neisha Stapleton D.O. Ordering Physician: Neisha Stapleton D.O. Date of Service: 09/02/24 Procedure(s): US OB growth Accession Number(s): [id number] cc: Neisha Stapleton D.O.; Physician,Non-Staff M.DJonathan The [address] [address] Patient Name: MICHAEL ROQUE MRN: [id number] date: 1985 Sex: F Assigned Patient Location: US Current Patient Location: Accession/Order Number: [id number] Exam Date: 09/05/2024 08:14 Report Date: 09/05/2024 08:20 At the request of: NEISHA STAPLETON DO Procedure: US OB growth ULTRASOUND OB GROWTH COMPARISON: 03/31/2024 CLINICAL DATA: weight and consistent with dates. There is a single live intrauterine gestation in cephalic presentation. The amniotic fluid index measures 12.7 cm which is in normal range. There is a posterior placenta. cardiac and somatic activity are present with heart rate of 171 bpm. The following measurements were obtained: Biparietal diameter 9.5 cm 38 weeks 5 days >97% Head circumference 33.4 cm 38 weeks 2 days 79% Abdominal circumference 36.1 cm 40 weeks 0 days >97% Femur length 6.9 cm 35 weeks 2 days 33% The composite ultrasound age based on these measurements is 38 weeks 1 day +/- 2 weeks 5 days. The estimated date of delivery is 09/15/2024. This is at the upper limits of expected interval growth. The estimated weight is 7 lbs. 14 oz. +/- 1 lb. 3 oz. (greater than 97%). US/US OB growth IMPRESSION: SINGLE LIVE INTRAUTERINE GESTATION WITH ULTRASOUND AGE OF 38 WEEKS 1 DAY. THIS IS AT THE UPPER LIMITS OF EXPECTED GROWTH BASED ON THE COMPARISON. Impression dictated by: Bisi Holden M.D. 09/05/2024 8:20 AM Dictation Location: [place] [address] Electronically authenticated by: [id number] Y Date: 09/05/2024 08:20 Dictated By: Bisi Holden M.D. Signed By: 09/05/24821 DD/ 9 TD/TT: Quarrying Specialist: Procedure Note Radiology, Radiologist, MD - 09/05/2024 [place] [address] Ultrasound Report Signed Patient: MICHAEL ROQUE RMR#: [id number] : 1985Acct:[id number] Age/Sex: 38 / FADM Date: 09/02/24 Loc: US Attending Dr: Neisha Stapleton D.O. Ordering Physician: Neisha Stapleton D.O. Date of Service: 09/02/24 Procedure(s): US OB growth Accession Number(s): [id number] cc: Neisha Stapleton D.O.; Physician,Non-Staff Ramiro The [place] [id number] Patient Name: MICHAEL ROQUE MRN: [facility]:[id number] date: 1985 Sex: F Assigned Patient Location: Current Patient Location: Accession/Order Number: [id number] Exam Date: 09/05/2024 08:14 Report Date: 09/05/2024 08:20 At the request of: NEISHA STAPLETON DO Procedure: US OB growth ULTRASOUND OB GROWTH COMPARISON: 03/31/2024 CLINICAL DATA: weight and consistent with dates. There is a single live intrauterine gestation in cephalic presentation.The amniotic fluid index measures 12.7 cm which is in normal range. There hussain posterior placenta. cardiac and somatic activity are present withheart rate of 171 bpm. The following measurements were obtained: Biparietal diameter 9.5 cm 38 weeks 5 days >97% Head circumference 33.4 cm 38 weeks 2 days 79% Abdominal circumference 36.1 cm 40 weeks 0 days >97% Femur length 6.9 cm 35 weeks 2 days33% The composite ultrasound age based on these measurements is 38 weeks 1 day+/- 2 weeks 5 days. The estimated date of delivery is 09/15/2024. This is atthe upper limits of expected interval growth. The estimated weight is 7 lbs. 14 oz. +/- 1 lb. 3 oz. (greater than 97%). US/US OB growth IMPRESSION: SINGLE LIVE INTRAUTERINE GESTATION WITH ULTRASOUND AGE OF 38 WEEKS 1 DAY. THIS IS AT THE UPPER LIMITS OF EXPECTED GROWTH BASED ON THE COMPARISON. Impression dictated by: Bisi Holden M.D. 09/05/2024 8:20 AM Dictation Location: [place] [address] Electronically authenticated by: [id number] Y Date: 508:20 Dictated By: Bisi Holden M.D. Signed By:09/05/24821 DD/ 9 TD/TT: Quarrying Specialist: Neisha Stapleton DO [facility] Final Result documented in this encounter Visit Diagnoses Not on filedocumented in this encounter Additional Health Concerns Active Problems Noted Date Diagnosed Date OB Reminders 04/14/2024 documented as of this encounter Care Teams Rivet Passer Relationship Specialty Start Date End Date Juaquin Rae DO [address] [place] [address] PCP - General Family Medicine 07/15/22 documented as of this encounter
--- OUTSIDE RECORDS SUMMARY | 2024-09-05 10:14 | XMS_ITS | Encounter Summary ---
Author Organization [facility] Address [address] [place] [address] Care Team Providers Care [employer] Teacher Name Role Phone KeenanJuaquin pittman Amira SORIA Primary Care Provider +1- [phone] Encounter Details Date Type Department Care Team (Late st Contact Info) Description 08/02/2024 Abstract [facility] [address] [place] [phone] Matt Stapleton [facility] [address] [place], [place] [address] Social History Tobacco Use Types Packs/Day Years [...] Description 09/06/2024 9:30 AM EDT Routine [facility] [address] [place] [phone] Matt Stapleton DO [facility] [address] [place], [place] [id number] 10/26/2024 4:00 PM EDT Office Visit [facility] [address] Matt Stapleton, DO [address] [facility] [place] [address] documented as of this encounter Goals Goal Patient Goal Type Associated Problems Recent Progress Patient-Stated? Author Reminders Care Plan OB Reminders No Open Scheduling, Background documented as of this encounter Visit Diagnoses Not on filedocumented in this encounter Additional Health Concerns Active Problems Noted Date Diagnosed Date OB Reminders 04/14/2024 documented as of this encounter Care Teams [employer] Science Teacher Relationship Specialty Start Date End Date Juaquin Rae DO [address] [facility] [address] [place] [address] PCP - General Family Medicine 07/15/22 documented as of this encounter
--- OUTSIDE RECORDS SUMMARY | 2024-09-05 10:14 | XMS_ITS | Encounter Summary ---
Author Organization [facility] tem Address [id number] [address] [place] [address] Care Team Providers Care Barrel Coater Name Role Phone Unavailable Primary Care Provider Unavailabl e Encounter Details Date Type Department Care Team (Late st Contact Info) Description 09/02/2024 Telephone Maternal- Medicine at [facility] [address] [facility] [place] [address] Shira Ospina LD Social History Tobacco Use Types Packs/Day Years [...] encounter Miscellaneous Notes * Telephone Encounter - IVONNE Fitzgerald - 09/02/2024 3:35 PM EDT Tried to speak to patient to confirm that she received [employer]'s voicemail from 08/30/24 that detailedher insulin changes for this week. Had to leave a voicemail this time as well. Will also send a [employer] message re-iterating the contents of [employer]'s message. documented in this encounter Plan of Treatment Not on file documented as of this encounter Visit Diagnoses Not on filedocumented in this encounter
--- OUTSIDE RECORDS SUMMARY | 2024-09-05 10:14 | XMS_ITS | Encounter Summary ---
Author Organization [facility] tem Address [id number] [address] [place] [address] Care Team Providers Care Supervisor Process Testing Name Role Phone Unavailable Primary Care Provider Unavailabl e Encounter Details Date Type Department Care Team (Late st Contact Info) Description 08/30/2024 Orders Only Maternal- Medicine at [facility] [address] [place] [phone] Lucretia Art PA-C [address] [address] Insulin controlled gestational diabetes mellitus (GDM) in third trimester Social History Tobacco Use [...] gestational diabetes mellitus (GDM) in third trimester documented in this encounter
--- OUTSIDE RECORDS SUMMARY | 2024-09-05 10:14 | XMS_ITS | Clinical Summary ---
Author Organization [facility] Address [address] [place] [address] Care Team Providers Care Property Insurance Agent Name Role Phone Juaquin Rae Amira SORIA Primary Care Provider [phone]- [phone] Allergies Active Allergy Reactions Criticality Noted Date [...] Daily 30 capsule 11 025 2025 Active Alcohol Swabs (Alcohol Prep Pad) 70 % padsIndications:Ge stational diabetes mellitus (GDM), antepartum, gestational diabetes method of control unspecified (HHS-HCC),Elevated glucose tolerance test Apply 1 Pad topically Daily Use four times daily to check FSBS. 150 each 3 Active Blood Glucose Monitoring Suppl (D-Care Glucometer) w/Device kitIndications:Ges tational diabetes mellitus (GDM), antepartum, gestational diabetes method of control unspecified (HHS-HCC),Elevated glucose tolerance test 1 kit Daily Use four times daily to check FSBS. In the morning prior to breakfast & 1 hour after each meal for a total of 4times daily. 1 kit 2025 Active insulin syringe 29G X 1/2 0.5 mL miscIndications:Ge stational diabetes mellitus (GDM), antepartum, gestational diabetes method of control unspecified (HHS-HCC) Use as instructed 100 each 4 Active Lantus SoloStar 100 UNIT/ML pen Inject 17 Units under the skin at bedtime Active insulin lispro (HumaLOG) 100 UNIT/ML injection Inject 3 Units under the skin in the morning and 3 Units at noon and 3 Units in the evening. Inject with meals. Active promethazine (Phenergan) 12.5 MG tablet TAKE 1 TABLET (12.5 MG) BY MOUTH EVERY 6 HOURS IF NEEDED FOR NAUSEA OR VOMITING 025 2024 Discontinued Lancets Ultra Thin miscIndications:Ge stational diabetes mellitus (GDM), antepartum, gestational diabetes method of control unspecified (HHS-HCC),Elevated glucose tolerance test 1 each by In Vitro route Daily Use to check FSBS four times daily 150 each 3 025 2024 Glucose Blood (Blood Glucose Test) stripIndications:G estational diabetes mellitus (GDM), antepartum, gestational diabetes method of control unspecified (HHS-HCC),Elevated glucose tolerance test 1 strip by In Vitro route Daily Use in the morning prior to breakfast, 1 hour after each meal for a total of 4times daily. 150 strip 3 025 2024 insulin NPH-insulin regular (NovoLIN) (70-30) 100 UNIT/ML injectionIndicatio ns:Gestational Diabetes Inject 5 Units under the skin in the morning and 5 Units in the evening. Inject before meals. 3 mL 025 2024 Discontinued insulin NPH, Isophane, (HumuLIN N,NovoLIN N) 100 UNIT/ML injectionIndicatio ns:Gestational Diabetes Inject 5 Units under the skin in the morning and 5 Units in the evening. Inject before meals. 3 mL 025 2024 Discontinued Active Problems Problem Noted Date Diagnosed Date Chronic nasopharyngitis 08/28/2022 Reflux esophagitis 08/28/2022 Submandibular gland infection 08/28/2022 Estimated Date of Delivery Comme nts Yes 10/01/2024 Based on Ultraso und Encounters Date Type Department Care Team Description 09/05/2024 Clinisync Result Encounter [facility]OM[facility] External Department Unsolicited Neisha Stapleton, 09/03/2024 Clinisync Result Encounter NOMS External Department Unsolicited Neisha Stapleton, DO 08/31/2024 11:20 AM EDT Routine [facility] [address] [place] [address] Neisha Stapleton, DO 35 weeks gestation of ([facility]); Third trimester ([facility]); Excessive growth affecting management of , antepartum, single or unspecified fetus ([facility]); Multigravida of advanced maternal age in third trimester ([facility]); Insulin controlled gestational diabetes mellitus (GDM) in third trimester ([facility]) 08/31/2024 Bamboo flowsheet [facility] OB [address] [place] [address] [place] [address] Neisha Stapleton, DO 08/25/2024 Clinisync Result Encounter NOMS External Department Unsolicited Neisha Stapleton, DO 08/19/2024 Clinisync Result Encounter NOMS External Department Unsolicited Neisha Stapleton, DO 08/17/2024 11:00 AM EDT Routine [facility] OB [address] [place] [address] Neisha Stapleton, DO Third trimester ([facility]); 33 weeks gestation of ([facility]) 08/17/2024 Bamboo flowsheet [facility] OB [address] [facility] [place] [address] Neisha Stapleton, DO 08/15/2024 Clinisync Result Encounter NOMS External Department Unsolicited Neisha Stapleton, DO 08/14/2024 Clinisync Result Encounter [facility]S External Department Unsolicited Neisha Stapleton, DO 08/12/2024 Clinisync Result Encounter [facility]S External Department Unsolicited Neisha Stapleton, DO 08/12/2024 Clinisync Result Encounter [facility]OMS External Department Unsolicited Neisha Stapleton, DO 08/11/20[address] [address] [place] [address] Maria Victoria Zelaya LPN 08/09/2024 3:00 PM EDT Ancillary Procedure [facility] [address] [place] [address] 28 weeks gestation of ([facility]); Multigravida of advanced maternal age in third trimester ([facility]) 08/06/2024 Clinisync Result Encounter NOMS External Department Unsolicited Neisha Stapleton, DO 08/02/2024 9:10 AM EDT Routine [facility] [address] [place] [address] Neisha Stapleton, DO 31 weeks gestation of ([facility]); Third trimester ([facility]); Gestational diabetes mellitus (GDM), antepartum, gestational diabetes method of control unspecified ([facility]) 08/02/2024 Abstract [facility] [address] [place] [address] Neisha Stapleton, DO 08/02/2024 Abstract [facility] [address] [place] [address] Neisha Stapleton, DO 08/02/2024 Bamboo flowsheet [facility] [address] [place] [address] Neisha Stapleton, DO 07/12/2024 11:10 AM EDT Routine [facility] [address] [place] [address] Neisha Stapleton, DO Third trimester ([facility]); 28 weeks gestation of ([facility]); Multigravida of advanced maternal age in third trimester ([facility]); Gestational diabetes mellitus (GDM), antepartum, gestational diabetes method of control unspecified ([facility]); Elevated glucose tolerance test 07/12/2024 10:30 AM EDT Ancillary Procedure [facility] [address] [place] [address] Antepartum multigravida of advanced maternal age ([facility]) 07/01/2024 Results Follow-Up [facility] [address] [place] [address] Cathy Dick LPN 07/01/[address] [facility] [address] [place] [address] Cathy Dick LPN 06/30/2024 Clinisync Result Encounter NOMS External Department Unsolicited Neisha Stapleton DO 06/20/2024 9:40 AM EDT Routine [facility] [address] [place] [address] Neisha Stapleton DO Diabetes mellitus screening; 25 weeks gestation of ([facility]); Second trimester ([facility]); Antepartum multigravida of advanced maternal age ([facility]) 06/20/2024 Bamboo flowsheet [facility]OM[facility] [address] [place] [address] Neisha Stapleton DO 06/06/2024 Abstract [facility] [address] [place] [address] Maria Victoria Zelaya LPN from Last 3 Months Social History Tobacco [...] oz) 08/31/2024 11:42 A M EDT Height 165.1 cm (5' 5 ) 05/30/2021 12:00 PM EDT Body Mass Index 40.17 05/30/2021 12:00 PM EDT Plan of Treatment Upcoming Encounters Date Type Department Care Team (Late st Contact Info) Description 09/06/2024 9:30 AM EDT Routine [facility] OB [address] [facility] [place] [address] Neisha Stapleton, DO [address] [place], [place] [address] [place] [address] 10/26/2024 4:00 PM EDT Office Visit [facility] [address] [facility] [place] [phone] Neisha Stapleton, DO [address] [facility] [place] [address] Health Maintenance Due Date Last Done Comments Influenza Vaccine (Season Ended) 2024 Cervical Cancer Screening 10/19/2028 HPV/Cotest 10/19/2028 10/17/2022, 08/27/2017 Pap Smear 10/19/2028 10/20/2023, 10/07, 03/25/2021 Goals Goal Patient Goal Type Associated Problems Recent Progress Patient-Stated? Author Reminders Care Plan OB Reminders No Open Scheduling, Background Procedures Procedure Name Priority Date/Time Associated Diagnosis Comments US OB GROWTH 09/05/2024 8:20 AM EDT US OB BPP W NON-STRESS 09/03/2024 6:07 PM EDT POCT URINALYSIS DIPSTICK Routine 08/31/2024 11:49 AM EDT 35 weeks gestation of ([facility]) Third trimester ([facility]) US OB BPP W NON-STRESS 08/25/2024 6:15 PM EDT US OB BPP W NON-STRESS 08/19/2024 6:46 PM EDT [facility] UA (CLEAN/CATCH) PUBLIC RELATIONS COUNSELOR/MICRO IF IND. Routine 08/15/2024 4:25 PM EDT [...] 3:32 PM EDT 28 weeks gestation of ([facility]) Multigravida of advanced maternal age in third trimester ([facility]) US OB BPP W NON-STRESS 08/06/2024 12:12 PM EDT POCT URINALYSIS DIPSTICK Routine 08/02/2024 9:27 AM EDT 31 weeks gestation of ([facility]) Third trimester ([facility]) POCT URINALYSIS DIPSTICK Routine 07/12/2024 11:33 AM EDT Third trimester ([facility]) US OB FOLLOW UP TRANSABDOMINAL APPROACH Routine 07/12/2024 10:42 AM EDT Antepartum multigravida of advanced maternal age ([facility]) GLUCOSE 1 HOUR Routine 06/30/2024 10:26 AM EDT ALL CBC WITH AUTO DIFF Routine 10:26 AM EDT POCT URINALYSIS DIPSTICK Routine 06/20/2024 10:30 AM EDT 25 weeks gestation of ([facility]) PAP SMEAR Routine 10/20/2023 12:00 AM EDT THINPREP PAP AND HPV MRNA E6/E7 W/RFL HPV 16,18/45 Routine 10/17/2022 8:40 AM EDT Well woman exam with routine gynecological exam from Last 3 Months or Most Recently Relevant to Health Maintenance Results * US OB GROWTH (09/05/2024 8:20 AM EDT) Anatomical Region Laterality Modality Other 09/05/2024 8:20 AM EDT Narrative 09/05/2024 8:22 AM EDT [address] [address] Ultrasound Report Signed Patient: MICHAEL WELLER MR#: [id number] : 1985 Acct:[id number] Age/Sex: 38 / F ADM Date: 09/02/24 Loc: US Attending Dr: Neisha Stapleton D.O. Ordering Physician: Neisha Stapleton D.O. Date of Service: 09/02/24 Procedure(s): US OB growth Accession Number(s): [id number] cc: Neisha Stapleton D.O.; Physician,Non-Staff M.Cristal [address] [address] Patient Name: MICHAEL WELLER MRN: [facility]:[id number] date: 1985 Sex: F Assigned Patient Location: Current Patient Location: Accession/Order Number: [id number] Exam Date: 09/05/2024 08:14 Report Date: 09/05/2024 [...] Holden M.D. 09/05/2024 8:20 AM Dictation Location: [place] [address] Electronically authenticated by: [id number] Y Date: 09/05/2024 08:20 Dictated By: Bisi Holden M.D. Signed By: 09/05/2422 DD/ 9 TD/TT: Team Otr Truck Driver: Procedure Note Radiology, Radiologist, - 09/05/2024 [place] [address] Ultrasound Report Signed Patient: MICHAEL WELLER RMR#: [id number] : 1985Acct:[id number] Age/Sex: 38 / FADM Date: 09/02/24 Loc: US Attending Dr: Neisha Stapleton D.O. Ordering Physician: Neisha Stapleton D.O. Date of Service: 09/02/24 Procedure(s): US OB growth Accession Number(s): [id number] cc: Neisha Stapleton D.O.; Physician,Non-Staff [place] [address] Patient Name: MICHAEL WELLER MRN: [facility]:[id number] date: 1985 Sex: F Assigned Patient Location: Current Patient Location: Accession/Order Number: [id number] Exam Date: 09/05/2024 08:14 Report Date: 09/05/2024 [...] Holden M.D. 09/05/2024 8:20 AM Dictation Location: [place] [address] Electronically authenticated by: [id number] Y Date: 508:20 Dictated By: Bisi Holden M.D. Signed By:09/05/24821 DD/ 9 TD/TT: Team Otr Truck Driver: us Neisha Stapleton DO [facility] Final Result * US OB BPP W NON-STRESS (09/03/2024 6:07 PM EDT) Only the most recent of5 resultswithin the time period is included. Anatomical Region Laterality Modality Other 09/03/2024 6:07 PM EDT Narrative 09/03/2024 6:10 [place] [address] Ultrasound Report Signed Patient: MICHAEL WELLER MR#: [id number] : 1985 Acct:[id number] Age/Sex: 38 / F ADM Date: 09/02/24 Loc: US Attending Dr: Neisha Stapleton D.O. Ordering Physician: Neisha Stapleton D.O. Date of Service: 09/02/24 Procedure(s): US OB BPP w non-stress Accession Number(s): [id number] cc: Neisha Stapleton D.O.; Physician,Non-Staff M.Cristal [address] [address] Patient Name: MICHAEL WELLER MRN: [facility]:[id number] date: 1985 Sex: F Assigned Patient Location: [facility] Current Patient Location: Accession/Order Number: [id number] Exam Date: 09/03/2024 18:03 Report Date: 09/03/2024 18:07 At the request of: NEISHA STAPLETON DO Procedure: US OB BPP w non-stress US OB BPP w non-stress 09/02/2024 4:51 PM SIGNS AND SYMPTOMS: GESTATIONAL DIABETES MELLITUS O24.419 COMPARISON: 08/25/2024 FINDINGS: heart rate: 171 bpm Amniotic fluid index: 12.7 cm Biophysical profile: movement: 2/2 tone: 2/2 breathing movements: 2/2 Amniotic fluid volume: 2/2 US/US OB BPP w non-stress IMPRESSION: Biophysical profile score: 8/8 Impression dictated by: Orlando Bhatia M.D. 09/03/2024 6:07 PM Dictation Location: [place] [address] Electronically authenticated by: [id number] Y Date: 09/03/2024 18:07 Dictated By: Orlando Bhatia M.D. Signed By: 09/03/241809 DD/ 06 TD/TT: Team Otr Truck Driver: Procedure Note Radiology, Radiologist, MD - 09/03/2024 [place] [address] Ultrasound Report Signed Patient: MICHAEL WELLER RMR#: [id number] : 1985Acct:[id number] Age/Sex: 38 / FADM Date: 09/02/24 Loc: US Attending Dr: Neisha Stapleton D.O. Ordering Physician: Neisha Stapleton D.O. Date of Service: 09/02/24 Procedure(s): US OB BPP w non-stress Accession Number(s): [id number] cc: Neisha Stapleton D.O.; Physician,Non-Staff Ramiro The [address] [address] Patient Name: MICHAEL WELLER MRN: [facility]:[id number] date: 1985 Sex: F Assigned Patient Location: [facility] Current Patient Location: Accession/Order Number: [id number] Exam Date: 09/03/2024 18:03 Report Date: 09/03/2024 18:07 At the request of: NEISHA STAPLETON DO Procedure: US OB BPP w non-stress US OB BPP w non-stress 09/02/2024 4:51 PM SIGNS AND SYMPTOMS: GESTATIONAL DIABETES MELLITUS O24.419 COMPARISON: 08/25/2024 FINDINGS: heart rate: 171 bpm Amniotic fluid index: 12.7 cm Biophysical profile: movement: 2/2 tone: 2/2 breathing movements: 2/2 Amniotic fluid volume: 2/2 US/US OB BPP w non-stress IMPRESSION: Biophysical profile score: 8/8 Impression dictated by: Orlando Bhatia M.D. 09/03/2024 6:07 PM Dictation Location: [place] [address] Electronically authenticated by: [id number] Y Date: 8:07 Dictated By: Orlando Bhatia M.D. Signed By:09/03/241809 DD/ 06 TD/TT: Team Otr Truck Driver: [facility] Final Result * (ABNORMAL) POCT urinalysis dipstick manually resulted (08/31/2024 11:49 AM EDT) Only the most recent of4 resultswithin the time period is included. Color, UA Yellow Clarity, UA Clear Glucose, [...] Positive Urine 08/31/2024 11:4 9 AM EDT Enisha Daya DO POINT OF CARE TEST ENTER/EDIT OR DERABLES Final Result * (ABNORMAL) TBH UA (CLEAN/CATCH) PUBLIC RELATIONS COUNSELOR/MICRO IF IND. (08/15/2024 4:25 PM EDT) COLOR [...] Narrative [facility] - 08/15/2024 4:45 PM EDT Fusion-ioo DO [facility] Final Result Performing Organization Address [facility] Co de Phone Number SHAMIKA TB * (ABNORMAL) TBH TOTAL PROTEIN 24 HOUR URINE (08/14/2024 7:54 AM EDT) TOTAL PROTEIN URINE RANDOM 20.8(H) <=11.9 mg/dL TBH TOTAL VOLUME 24 HOUR URINE 1,550 mL/24hr TBH TBH TOTAL PROTEIN 24 HOUR URINE 322.4(H) <=149.1 mg/24hr TBH 08/14/2024 7:54 AM EDT 08/14/2024 1:02 PM EDT Narrative CLINISYNC - 08/14/2024 1:39 PM EDT START TIME:0754 END TIME:0745 TOTAL VOLUME:1550 BizArkzio DO CLINISYNC Final Result Performing Organization Address [facility] Co de Phone Number SHAMIKA TB * (ABNORMAL) TBH CREATININE (08/12/2024 3:40 PM EDT) CREATININE 0.40(L) 0.55 - 1.02 mg/dL TBH TBH EGFR-AF EGYPTIAN >60 >=60 mL/min/1.7 3m 2 TBH TBH EGFR-NON AF EGYPTIAN >60 >=60 mL/min/1.7 3m 2 [facility] 08/12/2024 3:40 PM EDT 08/12/2024 3:42 PM EDT Narrative CLINISYNC - 08/12/2024 4:47 PM EDT Neisha BRIGGS Final Result Performing Organization Address [facility] Co de Phone Number [facility] * SRMCOH PROTHROMBIN TIME INR W/O COUM (08/12/2024 3:40 PM EDT) PROTHROMBIN TIME 9.8 9.0 - 11.6 sec TB TB INR <0.93 TB Comment: DESIRED INR: 2.0-3.0 CONDITIONS NOT LISTED BELOW 2.5-3.5 FOR PROSTHETIC HEART VALVE REPLACEMENT 2.5-3.5 RECURRENT THROMBOSIS 08/12/2024 3:40 PM EDT 08/12/2024 3:42 PM EDT Narrative CLINISYNC - 08/12/2024 4:[address] [facility] Final Result Performing Organization Address [facility] Co de Phone Number [facility] * (ABNORMAL) [facility] AST (08/12/2024 3:40 PM EDT) ASPARTATE AMINO TRANSFERASE 13(L) 15 - 37 U/L TB 08/12/2024 3:40 PM EDT 08/12/2024 3:42 PM EDT Narrative CLINISYNC - 08/12/2024 4:[address] [facility] BRIGGS Final Result Performing Organization Address [facility] Co de Phone Number [facility] * [facility] APTT (08/12/2024 3:40 PM EDT) PARTIAL THROMBOPLASTIN TIME 27.1 22.3 - 36.2 sec TB 08/12/2024 3:40 PM EDT 08/12/2024 3:42 PM EDT Narrative CLINISYNC - 08/12/2024 4:20 PM EDT Neisha Daya DO CLINISYNC Final Result CLINISYME TB * ALL URIC ACID (08/12/2024 3:40 PM EDT) Pathologist [facility] URIC ACID 2.8 2.6 - 6.0 mg/dL TBH 08/12/2024 3:40 PM EDT 08/12/2024 3:42 PM EDT Narrative CLINISYNC - 08/12/2024 4:47 PM EDT Neisha Daya DO CLINISYNC Final Result Performing Organization Address City/[facility]/ZIP Co de Phone Number [facility] * ALL LDH (08/12/2024 3:40 PM EDT) Pathologist [facility] LACTATE DEHYDROGENASE 131 81 - 234 U/L TB 08/12/2024 3:40 PM EDT 08/12/2024 3:42 PM EDT Narrative CLINISYNC - 08/12/2024 4:47 PM EDT [facility] Daya DO CLINISYNC Final Result Performing Organization Address City/[facility]/ZIP Co de Phone Number [facility] * (ABNORMAL) ALL CBC WITH AUTO DIFF (08/12/2024 3:40 PM EDT) Only the most recent of2 resultswithin the time period is included. Pathologist [facility] TBH WBC 8.5 4.0 - 11.0 10 [...] DO CLINISYNC Final Result CLINISYNC TB * ALL BUN (08/12/2024 3:40 PM EDT) BLOOD UREA NITROGEN 10.0 7.0 - 18.0 mg/dL TBH 08/12/2024 3:40 PM EDT 08/12/2024 3:42 PM EDT Narrative CLINISYNC - 08/12/2024 4:47 PM EDT us Neisha Daya DO CLINISYNC Final Result CLINISYNC TB * US OB follow up transabdominal approach [...] II, MD, PHD at 11-Aug-2024 08:51:27 AM [facility] Procedure Note Bela Maria MD - [...] signed by BELA MARIA II, MD, PHD [id number] 08:51:27 AM [facility] us Neisha Daya DO IMG OB US PROCEDURES Final Resul t * (ABNORMAL) GLUCOSE 1 HOUR (06/30/2024 10:26 AM EDT) GLUCOSE 1 HOUR 160(H) <130 mg/dL TBH 06/30/2024 10:2 6 AM EDT 06/30/2024 10:30 AM EDT Narrative CLINISYNC - 06/30/2024 11:03 AM EDT us Neisha Daya DO LAB BLOOD ORDERABLES Final Resul t [facility] * Pap Smear (10/20/2023 12:00 AM EDT) Swab Cervical swab / Unknown us Neisha Daya DO LAB CYTOLOGY ORDERABLES Final Re sult EXTERNAL LAB * THINPREP PAP AND HPV MRNA E6/E7 W/RFL HPV 16,18/45 (10/17/2022 8:40 AM EDT) us Merary MCBRIDE LAB BLOOD ORDERABLES Final Resul t EXTERNAL LAB from Last 3 Months or Most Recently Relevant to Health Maintenance Additional Health Concerns Active Problems Noted Date Diagnosed Date OB Reminders 04/14/2024 [place] [address] [employer] Care Teams Property Insurance Agent Relationship Specialty Start Date End Date Juaquin Rae DO [address] [facility] [address] [place] [address] PCP - General Family Medicine 07/15/22
--- OUTSIDE RECORDS SUMMARY | 2024-09-05 10:14 | XMS_ITS | Encounter Summary ---
Author Organization [facility] Address [address] [place] [address] Care Team Providers Care Supervisor Particleboard Name Role Phone Juaquin Rae Amira SORIA Primary Care Provider [phone]- [phone] Encounter Details Date Type Department Care Team (Late st Contact Info) Description 08/31/2024 Bamboo flowsheet [facility] OB [address] [facility] [address] [place] [phone] Matt Stapleton [address] [place], [facility] Social History Tobacco Use [...] Description 09/06/2024 9:30 AM EDT Routine [facility] OB [address] [place] [phone] Matt Stapleton [facility] [address] [place], [place] [id number] 10/26/2024 4:00 PM EDT Office Visit [facility] [place] [address] [place] [address] aMtt Stapleton, DO [address] [facility] [place] [address] documented as of this encounter Goals Goal Patient Goal Type Associated Problems Recent Progress Patient-Stated? Author Reminders Care Plan OB Reminders No Open Scheduling, Background documented as of this encounter Visit Diagnoses Not on filedocumented in this encounter Additional Health Concerns Active Problems Noted Date Diagnosed Date OB Reminders 04/14/2024 documented as of this encounter Care Teams Supervisor Particleboard Relationship Specialty Start Date End Date Juaquin Rae DO [address] [place] [facility] [address] [place] [address] PCP - General Family Medicine 07/15/22 documented as of this encounter
--- OUTSIDE RECORDS SUMMARY | 2024-09-05 10:14 | XMS_ITS | Encounter Summary ---
Author Organization [facility] tem Address [id number] [address] [place] [address] Care Team Providers Care Lan Analyst Name Role Phone Unavailable Primary Care Provider Unavailabl e Encounter Details Date Type Department Care Team (Late st Contact Info) Description 08/30/2024 Orders Only Maternal- Medicine at [facility] [address] [place] [phone] Lucretia Art PA-C [address] [address] Insulin controlled gestational diabetes mellitus (GDM) in [...]
--- OUTSIDE RECORDS SUMMARY | 2024-09-05 10:14 | XMS_ITS | Encounter Summary ---
Author Organization [facility] tem Address [id number] [address] [place] [address] Care Team Providers Care Relationship Associate Name Role Phone Unavailable Primary Care Provider Unavailabl e Encounter Details Date Type Department Care Team (Late st Contact Info) Description 08/30/2024 Telephone Maternal- Medicine at [facility] [address] [facility] [place] [place] [address] Sherin Zaragoza, RN Social History Tobacco Use Types Packs/Day Years [...] encounter Miscellaneous Notes * Telephone Encounter - Sherin Zaragoza RN - 08/30/2024 6:21 PM EDT Called pt to discuss her insulin change and received voicemail. Left her a message that Lucretia Art reviewed her blood sugars and would like her to increase her lantus in the evening to 17 units. She would also like her to start humalog a short acting insulin before her supper. She will prime hernew pen the same and give it in her abdomen. She will give 3 units fifteen minutes before her supper. She will need to have a bedtime snack and do not skip it in the evening. Three hours after your humalog dose she is at a greater risk of a low blood sugar at that time so she needs to eat a bedtimesnack and do not skip this snack. Asked her to please call back and let us know that she received these new insulin changes for this week. documented in this encounter Plan of Treatment Not on file documented as of this encounter Visit Diagnoses Not on filedocumented in this encounter
--- OUTSIDE RECORDS SUMMARY | 2024-09-05 10:14 | XMS_ITS | Encounter Summary ---
Author Organization [facility] Address [address] [place] [address] Care Team Providers Care Bulk Sealer Operator Name Role Phone KeenanJuaquin pittman Amira SORIA Primary Care Provider [phone] Encounter Details Date Type Department Care Team (Late st Contact Info) Description 08/02/2024 Abstract [facility] [address] [place] [phone] Matt Stapleton [facility] [address] [place], [place] [address] Social History Tobacco Use Types Packs/Day Years [...] Description 09/06/2024 9:30 AM EDT Routine [facility] [address] [place] [phone] Matt Stapleton DO [facility] [address] [place], [place] [id number] 10/26/2024 4:00 PM EDT Office Visit [facility] [address] Matt Stapleton, DO [address] [facility] [place] [address] documented as of this encounter Goals Goal Patient Goal Type Associated Problems Recent Progress Patient-Stated? Author Reminders Care Plan OB Reminders No Open Scheduling, Background documented as of this encounter Visit Diagnoses Not on filedocumented in this encounter Additional Health Concerns Active Problems Noted Date Diagnosed Date OB Reminders 04/14/2024 documented as of this encounter Care Teams Bulk Sealer Operator Relationship Specialty Start Date End Date Juaquin Rae DO [address] [place] [address] PCP - General Family Medicine 07/15/22 documented as of this encounter
--- OUTSIDE RECORDS SUMMARY | 2024-09-05 10:14 | XMS_ITS | Encounter Summary ---
Author Organization [facility] Address [address] [place] [address] Phone Care Team Providers Care Managed Care Provider Name Role Phone Trever Lee MD Unavailable [phone] Encounter Details Date Type Department Care Team (Late st Contact Info) Description 11/11/2023 Patient Risk Score [facility] Care Management [address] [place] [phone] Social History Tobacco Use Types Packs/Day Years [...] documented as of this encounter Care Teams Managed Care Provider Relationship Specialty Start Date End Date Trever Lee MD [address] [facility], [address] [place] [address] Consulting Physician Neurology 02/19/23 documented as of this encounter
--- OUTSIDE RECORDS SUMMARY | 2024-09-05 10:14 | XMS_ITS | Encounter Summary ---
Author Organization [facility] Address [address] [place] [address] Phone Care Team Providers Care Agriculture Extension Specialist Name Role Phone Rafaela Garrido Primary Care Provider Unavailable Rafaela Garrido Unavailable Unava ilable Trever Lee MD Unavailable Gina Man DO Unavailable Encounter Details Date Type Department Care Team (Late st Contact Info) Description 10/09/2018 Orders Only [facility] [address] [place] [address] Conversion, Onbase Social History Tobacco Use Types [...] on filedocumented in this encounter Care Teams Agriculture Extension Specialist Relationship Specialty Start Date End Date Rafaela Garrido APRN-CNP PCP - General 07/06/18 10/28/22 Rafaela Garrido APRN-CNP Office Address Unavailable as of 08/07/2022 PCP - MMO ACO PCP 03/09/21 10/06/22 [place] [address] [facility] [address] [place] [address] PCP - MMO ACO PCP 03/09/23 10/07/23 Trever Lee MD [address] [facility], [address] [place] [address] Consulting Physician Neurology 02/19/23 documented as of this encounter
--- OUTSIDE RECORDS SUMMARY | 2024-09-05 10:14 | XMS_ITS | Encounter Summary ---
Author Organization [facility] Address [address] [place] [address] Phone Care Team Providers Care Retail Specialist Name Role Phone Rafaela Garrido APRN-FURNACE FIRER Primary Care Provider Unavailable Trever Lee MD Unavailable [phone] Gina Man DO Unavailable Encounter Details Date Type Department Care Team (Late st Contact Info) Description 10/16/2022 Scanned Document [facility] LE[facility] [address] [place] [address] Conversion, Onbase Social History Tobacco Use Types [...] on filedocumented in this encounter Care Teams Retail Specialist Relationship Specialty Start Date End Date Rafaela Garrido APRN-CNP PCP - General 07/06/18 10/28/22 [place] [address] [facility] [address] [place] [address] PCP - MMO ACO PCP 03/09/23 10/07/23 Trever Lee MD [address] [facility], [address] [place] [address] Consulting Physician Neurology 02/19/23 documented as of this encounter
--- OUTSIDE RECORDS SUMMARY | 2024-09-05 10:14 | XMS_ITS | Encounter Summary ---
Author Organization [facility] Address [address] [place] [address] Care Team Providers Care Bankruptcy Paralegal Name Role Phone Juaquin Rae DO Primary Care Provid er Source Comments In the event this information is protected by the Federal Confidentiality of Alcohol and Drug AbusePatient Records regulations: The Federal rules restrict any use of the information to criminally investigate or prosecute any alcohol or drug abuse patient.[facility] Encounter Details Date Type Department Care Team (Late st Contact Info) Description 02/21/2024 Patient Msg Dermatology [place] [address] [place] [address] Roula Hodge APRN.BIOTECH PRODUCTION SPECIALIST [address] [place] [address] Appointment Request Social History Tobacco Use Types Packs/Day Years Used Date Smoking Tobacco: Never Alcohol Use Standard Drinks/Week Comments Yes 0 (1 standard drink = 0.6 oz pur e alcohol) occasional Area Deprivation Index Answer Date Renaldo rded National Score (1-100), lower number is lower ri sk 52 09/01/2023 State Score (1-10), lower number is lower risk 3 09/01/2023 Data from: https://www.neighborhoodatlas.medicine.[facility] [...] on filedocumented in this encounter Care Teams Bankruptcy Paralegal Relationship Specialty Start Date End Date Juaquin Rae DO [address] [place] [address] PCP - General Family Medicine 06/10/16 documented as of this encounter
--- OUTSIDE RECORDS SUMMARY | 2024-09-05 10:14 | XMS_ITS | Encounter Summary ---
Author Organization [facility] Address [address] [place] [address] Care Team Providers Care International Sales Representative Name Role Phone Juaquin Rae Primary Care Provider [phone] Encounter Details Date Type Department Care Team (Late st Contact Info) Description 08/25/2024 Clinisync Result Encounter [facility] External Department Unsolicited Neisha Stapleton [facility] [address] [place], [place] [id number] Social History Tobacco Use Types Packs/Day Years [...] Routine [facility] BCP OB [address] [place] [address] Neisha Stapleton DO [facility] [address] [place], [place] [id number] 10/26/2024 4:00 PM EDT Office Visit [facility] B[facility] OB [address] [place] [address] Neisha Stapleton DO [address] [facility] [place] [address] documented as of this encounter Goals Goal Patient Goal Type Associated Problems Recent Progress Patient-Stated? Author Reminders Care Plan OB Reminders No Open Scheduling, Background documented as of this encounter Procedures Procedure Name Priority Date/Time Associated Diagnosis Comments US OB BPP W NON-STRESS 08/25/2024 6:15 PM EDT documented in this encounter Results * US OB BPP W NON-STRESS (08/25/2024 6:15 PM EDT) Anatomical Region Laterality Modality Other 08/25/2024 6:15 PM EDT Narrative 08/26/2024 9:02 AM EDT The [address] [address] Ultrasound Report Signed Patient: MICHAEL ROQUE MR#: [id number] : 1985 Acct:[id number] Age/Sex: 38 / F ADM Date: 08/25/24 Loc: US Attending Dr: Neisha Stapleton D.O. Ordering Physician: Neisha Stapleton D.O. Date of Service: 08/25/24 Procedure(s): US OB BPP w non-stress Accession Number(s): [id number] cc: Neisha Stapleton D.O.; Physician,Non-Staff M.DJonathan The [address] [address] Patient Name: MICHAEL ROQUE MRN: [id number] date: 1985 Sex: F Assigned Patient Location: US Current Patient Location: Accession/Order Number: [id number] Exam Date: 08/25/2024 18:13 Report Date: 08/25/2024 18:15 At the request of: NEISHA STAPLETON DO Procedure: US OB BPP w non-stress US OB BPP w non-stress 08/25/2024 5:51 PM SIGNS AND SYMPTOMS: 10/01/2024 GESTATIONAL DIABTES MELLITUS O24.419 PROTOCOL: Transabdominal sonographic imaging of the gravid uterus COMPARISON: 08/19/2024 FINDINGS: Estimated gestational age is 34 weeks 5 days heart rate: 139 bpm Amniotic fluid index: 13.33 cm. The deepest vertical pocket measures 5.7 cm. Biophysical profile: movement: 2/2 tone: 2/2 breathing movements: 2/2 Amniotic fluid volume: 2/2 US/US OB BPP w non-stress IMPRESSION: Biophysical profile score: 8/8 Impression dictated by: Kennedy Tobar M.D. 08/25/2024 6:15 PM Dictation Location: [place] [address] Electronically authenticated by: [id number] Y Date: 08/25/2024 18:15 Dictated By: Kennedy Tobar M.D. Signed By: 08/26/24901 DD/ 14 TD/TT: Fuel System Maintenance Worker: Procedure Note Radiology, Radiologist, MD - 08/26/2024 [place] [address] Ultrasound Report Signed Patient: MICHAEL ROQUE RMR#: [id number] : 1985Acct:[id number] Age/Sex: 38 / FADM Date: 08/25/24 Loc: US Attending Dr: Neisha Stapleton D.O. Ordering Physician: Neisha Stapleton D.O. Date of Service: 08/25/24 Procedure(s): US OB BPP w non-stress Accession Number(s): [id number] cc: Neisha Stapleton D.O.; Physician,Non-Staff Ramiro The [address] [address] Patient Name: MICHAEL ROQUE MRN: [facility]:[id number] date: 1985 Sex: F Assigned Patient Location: US Current Patient Location: Accession/Order Number: [id number] Exam Date: 08/25/2024 18:13 Report Date: 08/25/2024 18:15 At the request of: NEISHA KRISTEN DO Procedure: US OB BPP w non-stress US OB BPP w non-stress 08/25/2024 5:51 PM SIGNS AND SYMPTOMS: 10/01/2024 GESTATIONAL DIABTES MELLITUS O24.419 PROTOCOL: Transabdominal sonographic imaging of the gravid uterus COMPARISON: 08/19/2024 FINDINGS: Estimated gestational age is 34 weeks 5 days heart rate: 139 bpm Amniotic fluid index: 13.33 cm. The deepest vertical pocket measures 5.7cm. Biophysical profile: movement: 2/2 tone: 2/2 breathing movements: 2/2 Amniotic fluid volume: 2/2 US/US OB BPP w non-stress IMPRESSION: Biophysical profile score: 8/8 Impression dictated by: Kennedy Tobar M.D. 08/25/2024 6:15 PM Dictation Location: [facility] Electronically authenticated by: [id number] Y Date: 8:15 Dictated By: Kennedy Tobar M.D. Signed By:08/26/24 09 DD/ 14 TD/TT: Fuel System Maintenance Worker: us Neisha Stapleton DO [facility] Final Result documented in this encounter Visit Diagnoses Not on filedocumented in this encounter Additional Health Concerns Active Problems Noted Date Diagnosed Date OB Reminders 04/14/2024 documented as of this encounter Care Teams International Sales Representative Relationship Specialty Start Date End Date Juaquin Rae DO [address] [address] PCP - General Family Medicine 07/15/22 documented as of this encounter
--- OUTSIDE RECORDS SUMMARY | 2024-09-05 10:14 | XMS_ITS | Encounter Summary ---
Author Organization [facility] Address [address] [place] [address] Phone Care Team Providers Care Film Historian Name Role Phone Rafaela Garrido Primary Care Provider Unavailable Rafaela Garrido Unavailable Unava ilable Trever Lee MD Unavailable Gina Man DO Unavailable Encounter Details Date Type Department Care Team (Late st Contact Info) Description 09/08/2022 Patient Risk Score [facility] Care Management [address] [facility] [address] [place] [address] Social History Tobacco Use Types Packs/Day Years [...] on filedocumented in this encounter Care Teams Film Historian Relationship Specialty Start Date End Date Rafaela Garrido APRN-CNP PCP - General 07/06/18 10/28/22 Rafaela Garrido APRN-CNP Office Address Unavailable as of 08/07/2022 PCP - MMO ACO PCP 03/09/21 10/06/22 [place] [address] [place] [address] PCP - MMO ACO PCP 03/09/23 10/07/23 Trever Lee MD [address] [facility], [address] [place] [address] Consulting Physician Neurology 02/19/23 documented as of this encounter
--- OUTSIDE RECORDS SUMMARY | 2024-09-05 10:14 | XMS_ITS | Encounter Summary ---
Author Organization [facility] Address [address] [place] [address] Care Team Providers Care Registered Nurse Midwife Name Role Phone Juaquin Rae Primary Care Provider [phone] Encounter Details Date Type Department Care Team (Late st Contact Info) Description 09/03/2024 Clinisync Result Encounter [facility] External Department Unsolicited Neisha Stapleton [facility] [place] [address] [place], [place] [id number] Social History Tobacco Use Types Packs/Day Years [...] [place] [address] Neisha Stapleton DO [facility] [address] [place], [place] [address] 10/26/2024 4:00 PM EDT Office Visit [facility] BCP OB [address] [place] [address] Neisha Stapleton DO [address] [facility] [place] [address] documented as of this encounter Goals Goal Patient Goal Type Associated Problems Recent Progress Patient-Stated? Author Reminders Care Plan OB Reminders No Open Scheduling, Background documented as of this encounter Procedures Procedure Name Priority Date/Time Associated Diagnosis Comments US OB BPP W NON-STRESS 09/03/2024 6:07 PM EDT documented in this encounter Results * US OB BPP W NON-STRESS (09/03/2024 6:07 PM EDT) Anatomical Region Laterality Modality Other 09/03/2024 6:07 PM EDT Narrative 09/03/2024 6:10 PM EDT The [address] [address] Ultrasound Report Signed Patient: MICHAEL ROQUE MR#: [id number] : 1985 Acct:[id number] Age/Sex: 38 / F ADM Date: 09/02/24 Loc: US Attending Dr: Neisha Stapleton D.O. Ordering Physician: Neisha Stapleton D.O. Date of Service: 09/02/24 Procedure(s): US OB BPP w non-stress Accession Number(s): [id number] cc: Neisha Stapleton D.O.; Physician,Non-Staff M.DJonathan The [address] [address] Patient Name: MICHAEL ROQUE MRN: [id number] date: 1985 Sex: F Assigned Patient Location: [facility] Current Patient Location: Accession/Order Number: [id number] Exam Date: 09/03/2024 18:03 Report Date: 09/03/2024 [...] Bhatia M.D. 09/03/2024 6:07 PM Dictation Location: [place] [address] Electronically authenticated by: [id number] Y Date: 09/03/2024 18:07 Dictated By: Orlando Bhatia M.D. Signed By: 09/03/241809 DD/ 06 TD/TT: Deputy Sheriff Building Guard: Procedure Note Radiology, Radiologist, MD - 09/03/2024 [place] [address] Ultrasound Report Signed Patient: MICHAEL ROQUE RMR#: [id number] : 1985Acct:[id number] Age/Sex: 38 / FADM Date: 09/02/24 Loc: US Attending Dr: Neisha Stapleton D.O. Ordering Physician: Neisha Stapleton D.O. Date of Service: 09/02/24 Procedure(s): US OB BPP w non-stress Accession Number(s): [id number] cc: Neisha Stapleton D.O.; Physician,Non-Staff Ramiro The [place] [id number] Patient Name: MICHAEL ROQUE MRN: [id number] date: 1985 Sex: F Assigned Patient Location: [facility] Current Patient Location: Accession/Order Number: [id number] Exam Date: 09/03/2024 18:03 Report Date: 09/03/2024 [...] BPP w non-stress IMPRESSION: Biophysical profile score: 88 Impression dictated by: Orlando Bhatia M.D. 09/03/2024 6:07 PM Dictation Location: [place] [address] Electronically authenticated by: [id number] Y Date: 8:07 Dictated By: Orlando Bhatia M.D. Signed By:09/03/241809 DD/ 06 TD/TT: Deputy Sheriff Building Guard: us Neisha Daya DO [facility] Final Result documented in this encounter Visit Diagnoses Not on filedocumented in this encounter Additional Health Concerns Active Problems Noted Date Diagnosed Date OB Reminders 04/14/2024 documented as of this encounter Care Teams Registered Nurse Midwife Relationship Specialty Start Date End Date Juaquin Rae DO [address] [facility] [address] [place] [id number] PCP - General Family Medicine 07/15/22 documented as of this encounter
--- OUTSIDE RECORDS SUMMARY | 2024-09-05 10:14 | XMS_ITS | Encounter Summary ---
Author Organization [facility] Address [address] [place] [address] Phone Care Team Providers Care Paper Tube Machine Operator Name Role Phone Trever Lee MD Unavailable [phone] Gina Man DO Unavailable Encounter Details Date Type Department Care Team (Late st Contact Info) Description 06/11/2023 Patient Risk Score [facility] Care Management [address] [place] [address] Social History Tobacco Use Types [...] documented as of this encounter Care Teams Paper Tube Machine Operator Relationship Specialty [place] [address] [place] [address] PCP - MMO ACO PCP 03/09/23 10/07/23 Trever Lee MD [address] [facility], [address] [place], [place] [address] Consulting Physician Neurology 02/19/23 documented as of this encounter
--- OUTSIDE RECORDS SUMMARY | 2024-09-05 10:14 | XMS_ITS | Encounter Summary ---
Author Organization [facility] Address [address] [place] [address] Care Team Providers Care Screen Printing Loader Unloader Name Role Phone Juaquin Rae DO Primary Care Provid er Source Comments In the event this information is protected by the Federal Confidentiality of Alcohol and Drug AbusePatient Records regulations: The Federal rules restrict any use of the information to criminally investigate or prosecute any alcohol or drug abuse patient.[facility] Encounter Details Date Type Department Care Team (Late st Contact Info) Description 09/02/2021 Patient Msg Dermatology [place] [address] [place] [address] Roula Hodge APRN.CASING WRINGER OPERATOR [address] [place] [address] Appointment Request Social History Tobacco [...] N ot on file 02/13/2020 Data from: https://www.neighborhoodatlas.medicine.[facility].edu/. Last address used for calculation [...] on filedocumented in this encounter Care Teams Screen Printing Loader Unloader Relationship Specialty Start Date End Date Juaquin Rae DO [address] [place] [address] PCP - General Family Medicine 06/10/16 documented as of this encounter
--- OUTSIDE RECORDS SUMMARY | 2024-09-05 10:14 | XMS_ITS | Encounter Summary ---
Author Organization [facility] Address [address] [place] [address] Phone Care Team Providers Care Drawbench Operator Name Role Phone Trever Lee MD Unavailable [phone] Gina Man DO Unavailable Encounter Details Date Type Department Care Team (Late st Contact Info) Description 09/10/2023 Patient Risk Score [facility] Care Management [address] [place] [address] Social History Tobacco Use Types [...] documented as of this encounter Care Teams Drawbench Operator Relationship Specialty [place] [address] [place] [address] PCP - MMO ACO PCP 03/09/23 10/07/23 Trever Lee MD [address] [facility], [address] [place], [place] [phone] Consulting Physician Neurology 02/19/23 documented as of this encounter
--- OUTSIDE RECORDS SUMMARY | 2024-09-05 10:14 | XMS_ITS | Encounter Summary ---
Author Organization [facility] Address [address] [place] [address] Phone Care Team Providers Care It Security Consultant Name Role Phone Rafaela Garrido APRN-LOGGER DRIVING HORSES Primary Care Provider Unavailable Trever Lee MD Unavailable Gina Man DO Unavailable Encounter Details Date Type Department Care Team (Late st Contact Info) Description 10/09/2022 Patient Risk Score [facility] Care Management [address] [facility] [address] [place] [phone] Social History Tobacco Use Types Packs/Day Years [...] on filedocumented in this encounter Care Teams It Security Consultant Relationship Specialty Start Date End Date Rafaela Garrido APRN-CNP PCP - General 07/06/18 10/28/22 [place] [address] [facility] [address] [place] [address] PCP - MMO ACO PCP 03/09/23 10/07/23 Trever Lee MD [address] [facility], [address] [place] [address] Consulting Physician Neurology 02/19/23 documented as of this encounter
--- OUTSIDE RECORDS SUMMARY | 2024-09-05 10:14 | XMS_ITS | Clinical Summary ---
Author Organization [facility] Address [address] [place] [address] Phone Care Team Providers Care Chemical Tester Name Role Phone Trever Lee MD Unavailable [phone] Allergies Active Allergy Reactions Criticality Noted [...] Date Last Done Comments HIV Screening 1987 Skin Cancer Screening 1987 MMR Vaccines (1 of 1 - Standard series) 10/26/1988 Varicella Vaccines (1 of 2 - 13+ 2-dose series) 10/26/2000 Hepatitis C Screening 10/26/2005 Hepatitis B Vaccines (1 of 3 - 19+ 3-dose series) 10/26/2006 HPV/Cotest 10/26/2008 DTaP/Tdap/Td Vaccines (1 - Tdap) 10/26/2009 COVID-19 Vaccine (3 - season) 2023 10/25/2020, 10/04/2020 Yearly Adult Physical 10/20/2024 10/20/2023 , 09/01/2022, 09/01/2022, Additional history exists Influenza Vaccine (Season Ended) 2024 Lipid Panel 04/23/2025 04/23/2020 Cervical Cancer Screening 10/19/2026 Pap Smear 10/19/2026 10/20/2023, 10/07, 09/01/2022, Additional history exists Zoster Vaccines (1 of 2) 10/26/2037 HIB Vaccines Aged Out No longer eligi ble based on patient's age to complete this topic HPV Vaccines (No Doses Required) Completed Hepatitis A Vaccines Aged Out No long [...] EST) Cholesterol 135 0 - 199 mg/dL [facility] Comment: . AGE DESIRABLE BORDERLINE HIGH [...] prior to Metamizole dosing. HDL 34.0(A) mg/dL [facility] Comment: . AGE VERY LOW LOW NORMAL HIGH 0-19 Y < 35 < 40 40-45 ---- 20-24 Y ---- < 40 >45 ---- >24 Y ---- < 40 40-60 >60 . Cholesterol/HDL Ratio 4.0 [facility] Comment: REF VALUES DESIRABLE < 3.4 HIGH RISK > 5.0 LDL 70 0 - 99 mg/dL [facility] Comment: . NEAR BORD AGE DESIRABLE OPTIMAL HIGH HIGH VERY HIGH 0-19 Y 0 - 109 --- 110-129 >/= 130 ---- 20-24 Y 0 - 119 --- 120-159 >/= 160 ---- >24 Y 0 - 99 100-129 130-159 160-189 >/=190 . VLDL 31 0 - 40 mg/dL [facility] Triglycerides 154(H) 0 - 149 mg/dL [facility] Comment: . AGE DESIRABLE BORDERLINE HIGH [...] EST 04/23/2020 11:14 AM EST Rafaela Garrido SCIENTIFIC RESEARCH MANAGER-ASSURANCE ASSISTANT LAB BLOOD ORDERABLES F inal Result [facility] from Last 3 Months or Most Recently Relevant to Health Maintenance Insurance [facility] [place] [address] [facility] Care Teams Chemical Tester Relationship Specialty Start Date End Date Trever Lee MD [address] [facility], [address] [place], [place] [phone] Consulting Physician Neurology 02/19/23
--- OUTSIDE RECORDS SUMMARY | 2024-09-05 10:14 | XMS_ITS | Encounter Summary ---
Author Organization [facility] Address [address] [place] [address] Phone Care Team Providers Care Rotoformer Backtender Name Role Phone Trever Lee MD Unavailable Gina Man DO Unavailable Encounter Details Date Type Department Care Team (Late st Contact Info) Description 11/09/2022 Patient Risk Score [facility] Care Management [address] [facility] [address] [place] [address] Social History Tobacco Use Types [...] on filedocumented in this encounter Care Teams Rotoformer Backtender Relationship Specialty [place] [address] [facility] [address] [place] [address] PCP - MMO ACO PCP 03/09/23 10/07/23 Trever Lee MD [address] [facility], [address] [place], [place] [phone] Consulting Physician Neurology 02/19/23 documented as of this encounter
--- OUTSIDE RECORDS SUMMARY | 2024-09-05 10:14 | XMS_ITS | Encounter Summary ---
Author Organization [facility] Address [address] [place] [address] Phone Care Team Providers Care Share Holder Name Role Phone Trever Lee MD Unavailable Gina Man DO Unavailable Encounter Details Date Type Department Care Team (Late st Contact Info) Description 08/11/2023 Patient Risk Score [facility] Care Management [address] [place] [address] [place] [address] Social History Tobacco Use Types [...] documented as of this encounter Care Teams Share Holder Relationship Specialty [place] [address] [place] [address] PCP - MMO ACO PCP 03/09/23 10/07/23 Trever Lee MD [address] [facility], [address] [place] [address] Consulting Physician Neurology 02/19/23 documented as of this encounter
--- OUTSIDE RECORDS SUMMARY | 2024-09-05 10:14 | XMS_ITS | Encounter Summary ---
Author Organization [facility] Address [address] [place] [address] Care Team Providers Care Kiln Furniture Caster Name Role Phone Juaquin Rae DO Primary Care Provid er Source Comments In the event this information is protected by the Federal Confidentiality of Alcohol and Drug AbusePatient Records regulations: The Federal rules restrict any use of the information to criminally investigate or prosecute any alcohol or drug abuse patient.[facility] Encounter Details Date Type Department Care Team (Late st Contact Info) Description 08/13/2023 Patient Msg Dermatology [place] [address] [place] [address] Roula Hodge APRN.DRIFTMAN [address] [place] [address] Appointment Request Social History Tobacco [...] N ot on file 03/28/2022 Data from: https://www.neighborhoodatlas.medicine.[facility].edu/. Last address used for calculation Felix [...] on filedocumented in this encounter Care Teams Kiln Furniture Caster Relationship Specialty Start Date End Date Juaquin Rae DO [address] [facility] [address] [place] [phone] PCP - General Family Medicine 06/10/16 documented as of this encounter
--- OUTSIDE RECORDS SUMMARY | 2024-09-05 10:14 | XMS_ITS | Encounter Summary ---
Author Organization [facility] Address [address] [place] [address] Phone Care Team Providers Care Commission Specialist Name Role Phone Trever Lee MD Unavailable [phone] Encounter Details Date Type Department Care Team (Late st Contact Info) Description 10/11/2023 Patient Risk Score [facility] Care Management [address] [place] [id number] Social History Tobacco Use Types Packs/Day Years [...] documented as of this encounter Care Teams Commission Specialist Relationship Specialty Start Date End Date Trever Lee MD [address] [facility], [address] [place] [address] Consulting Physician Neurology 02/19/23 documented as of this encounter
--- OUTSIDE RECORDS SUMMARY | 2024-09-05 10:14 | XMS_ITS | Encounter Summary ---
Author Organization [facility] Address [address] [place] [address] Care Team Providers Care Worship Pastor Name Role Phone Juaquin Rae Amira SORIA Primary Care Provider [phone] Encounter Details Date Type Department Care Team (Late st Contact Info) Description 06/06/2024 Abstract [facility] [address] [place] [address] Maria Victoria Zelaya LPN Social History [...] Description 09/06/2024 9:30 AM EDT Routine [facility] [address] [place] [address] Matt Stapleton DO [address] [place], [facility] 10/26/2024 4:00 PM EDT Office Visit [facility] [address] [place] [address] Matt Stapleton, [address] [place] [address] documented as of this encounter Goals Goal Patient Goal Type Associated Problems Recent Progress Patient-Stated? Author Reminders Care Plan OB Reminders No Open Scheduling, Background documented as of this encounter Visit Diagnoses Not on filedocumented in this encounter Additional Health Concerns Active Problems Noted Date Diagnosed Date OB Reminders 04/14/2024 documented as of this encounter Care Teams Worship Pastor Relationship Specialty Start Date End Date Juaquin Rae DO [address] [place] [address] PCP - General Family Medicine 07/15/22 documented as of this encounter
--- OUTSIDE RECORDS SUMMARY | 2024-09-05 10:14 | XMS_ITS | Encounter Summary ---
Author Organization [facility] Address [address] [place] [address] Care Team Providers Care Emergency Registrar Name Role Phone KeenanJuaquin pittman Amira SORIA Primary Care Provider [phone] Encounter Details Date Type Department Care Team (Late st Contact Info) Description 04/14/2024 Abstract [facility] [address] [place] [id number] Matt Stapleton [facility] [address] [place], [place] [address] Social History Tobacco Use Types Packs/Day Years [...] Description 09/06/2024 9:30 AM EDT Routine [facility] [address] [place] [phone] Matt Stapleton DO [facility] [address] [place], [place] [id number] 10/26/2024 4:00 PM EDT Office Visit [facility] [place] [address] Matt Stapleton, DO [address] [facility] [place] [address] documented as of this encounter Goals Goal Patient Goal Type Associated Problems Recent Progress Patient-Stated? Author Reminders Care Plan OB Reminders No Open Scheduling, Background documented as of this encounter Visit Diagnoses Not on filedocumented in this encounter Additional Health Concerns Active Problems Noted Date Diagnosed Date OB Reminders 04/14/2024 documented as of this encounter Care Teams Emergency Registrar Relationship Specialty Start Date End Date Juaquin Rae DO [address] [facility] [address] [place] [address] PCP - General Family Medicine 07/15/22 documented as of this encounter
--- OUTSIDE RECORDS SUMMARY | 2024-09-05 10:14 | XMS_ITS | Encounter Summary ---
Author Organization [facility] Address [address] [place] [address] Care Team Providers Care Medication Tech Name Role Phone Juaquin Rae DO Primary Care Provid er Source Comments In the event this information is protected by the Federal Confidentiality of Alcohol and Drug AbusePatient Records regulations: The Federal rules restrict any use of the information to criminally investigate or prosecute any alcohol or drug abuse patient.[facility] Encounter Details Date Type Department Care Team (Late st Contact Info) Description 06/02/2020 Patient Msg Dermatology [place] [address] [place] [address] Roula Hodge, LAYNE.MANAGER UNIVERSAL [address] [address] RE: Request an Appointment Social [...] N ot on file 02/13/2020 Data from: https://www.neighborhoodatlas.medicine.[facility].edu/. Last address used for calculation Not [...] on filedocumented in this encounter Care Teams Medication Tech Relationship Specialty Start Date End Date Juaquin Rae DO [address] [place] [address] [place] [address] PCP - General Family Medicine 06/10/16 documented as of this encounter
--- OUTSIDE RECORDS SUMMARY | 2024-09-05 10:14 | XMS_ITS | Encounter Summary ---
Author Organization [facility] Address [address] [place] [address] Phone Care Team Providers Care Track Surfacing Machine Operator Name Role Phone Trever Lee MD Unavailable Gina Man DO Unavailable Encounter Details Date Type Department Care Team (Late st Contact Info) Description 07/11/2023 Patient Risk Score [facility] Care Management [address] [place] [address] Social [...] documented as of this encounter Care Teams Track Surfacing Machine Operator Relationship Specialty [place] [address] [place] [address] PCP - MMO ACO PCP 03/09/23 10/07/23 Trever Lee MD [address] [facility], [address] [place], [place] [address] Consulting Physician Neurology 02/19/23 documented as of this encounter
--- OUTSIDE RECORDS SUMMARY | 2024-09-05 10:14 | XMS_ITS | Encounter Summary ---
Author Organization [facility] Address [address] [place] [address] Care Team Providers Care Filenet Admin Name Role Phone Juaquin Rae DO Primary Care Provid er Source Comments In the event this information is protected by the Federal Confidentiality of Alcohol and Drug AbusePatient Records regulations: The Federal rules restrict any use of the information to criminally investigate or prosecute any alcohol or drug abuse patient.[facility] Encounter Details Date Type Department Care Team (Late st Contact Info) Description 08/13/2023 Patient Msg Dermatology [place] [address] [place] [address] Roula Hodge APRN.SAMPLE SAWYER [address] [place] [address] Appointment Request Social History Tobacco [...] on file 03/28/2022 Data from: https://www.neighborhoodatlas.medicine.[facility].edu/. Last address used for calculation [place] [...] on filedocumented in this encounter Care Teams Filenet Admin Relationship Specialty Start Date End Date Juaquin Rae DO [address] [facility] [address] [place] [phone] PCP - General Family Medicine 06/10/16 documented as of this encounter
--- OUTSIDE RECORDS SUMMARY | 2024-09-05 10:14 | XMS_ITS | Encounter Summary ---
Author Organization [facility] Address [address] [place] [address] Care Team Providers Care Credentialer Name Role Phone Juaquin Rae DO Primary Care Provid er Source Comments In the event this information is protected by the Federal Confidentiality of Alcohol and Drug AbusePatient Records regulations: The Federal rules restrict any use of the information to criminally investigate or prosecute any alcohol or drug abuse patient.[facility] Encounter Details Date Type Department Care Team (Late st Contact Info) Description 12/08/2022 Patient Msg Dermatology [place] [address] [place] [address] Roula Hodge APRN.CUSTOMS COMPLIANCE DIRECTOR [address] [place] [address] Appointment Request Social History Tobacco [...] N ot on file 03/28/2022 Data from: https://www.neighborhoodatlas.medicine.[facility].edu/. Last address used for calculation Felix Shepp[place] [...] on filedocumented in this encounter Care Teams Credentialer Relationship Specialty Start Date End Date Juaquin Rae DO [address] [facility] [address] [place] [phone] PCP - General Family Medicine 06/10/16 documented as of this encounter
--- OUTSIDE RECORDS SUMMARY | 2024-09-05 10:14 | XMS_ITS | Encounter Summary ---
Author Organization [facility] Address [address] [place] [address] Care Team Providers Care Wired Music Operator Name Role Phone Juaquin Rae DO Primary Care Provid er Source Comments In the event this information is protected by the Federal Confidentiality of Alcohol and Drug AbusePatient Records regulations: The Federal rules restrict any use of the information to criminally investigate or prosecute any alcohol or drug abuse patient.[facility] Encounter Details Date Type Department Care Team (Late st Contact Info) Description 04/20/2024 Patient Msg Dermatology [place] [address] [place] [address] Roula Hodge APRN.POWER SCREWDRIVER OPERATOR [address] [place] [address] Appointment Request Social History Tobacco Use Types Packs/Day Years Used Date Smoking Tobacco: Never Alcohol Use Standard Drinks/Week Comments Yes 0 (1 standard drink = 0.6 oz pur e alcohol) occasional Area Deprivation Index Answer Date Renaldo rded National Score (1-100), lower number is lower ri sk 52 09/01/2023 State Score (1-10), lower number is lower risk 3 09/01/2023 Data from: https://www.neighborhoodatlas.medicine.[facility].edu/. Last address used for [...] on filedocumented in this encounter Care Teams Wired Music Operator Relationship Specialty Start Date End Date Juaquin Rae DO [address] [place] [address] [place] [address] PCP - General Family Medicine 06/10/16 documented as of this encounter
--- OUTSIDE RECORDS SUMMARY | 2024-09-05 10:14 | XMS_ITS | Encounter Summary ---
Author Organization [facility] Address [address] [place] [address] Care Team Providers Care New Car Sales Manager Name Role Phone KeenanJuaquin pittman Amira SORIA Primary Care Provider [phone] Encounter Details Date Type Department Care Team (Late st Contact Info) Description 07/01/2024 Results Follow-Up [facility] [address] [facility] [place] [phone] Cathy Dick LPN [address] [place] [address] Social History Tobacco Use Types [...] AM EDT Routine [facility] [address] [facility] [place] [address] Matt Stapleton, DO [address] [facility] [place] [address] 10/26/2024 4:00 PM EDT Office Visit [facility] [address] [facility] [place] [address] Matt Stapleton, DO [address] [facility] [place] [address] documented as of this encounter Goals Goal Patient Goal Type Associated Problems Recent Progress Patient-Stated? Author Reminders Care Plan OB Reminders No Open Scheduling, Background documented as of this encounter Visit Diagnoses Not on filedocumented in this encounter Additional Health Concerns Active Problems Noted Date Diagnosed Date OB Reminders 04/14/2024 documented as of this encounter Care Teams New Car Sales Manager Relationship Specialty Start Date End Date Juaquin Rae DO [address] [facility] 230 [place] [address] PCP - General Family Medicine 07/15/22 documented as of this encounter
--- OUTSIDE RECORDS SUMMARY | 2024-09-05 10:14 | XMS_ITS | Encounter Summary ---
Author Organization [facility] Address [address] [place] [address] Phone Care Team Providers Care Guide Setter Name Role Phone Trever Lee MD Unavailable Gina Man DO Unavailable Encounter Details Date Type Department Care Team (Late st Contact Info) Description 02/20/2023 Scanned Document [facility] [address] [facility] [address] [place] [address] Trever Lee MD [address] [facility], [facility] [address] [place] [address] Social History Tobacco Use Types Packs/Day Years [...] documented as of this encounter Care Teams Guide Setter Relationship Specialty [place] [address] [facility] [address] [place], [place] [phone] PCP - MMO ACO PCP 03/09/23 10/07/23 Trever Lee MD [address] [facility], [address] [place] [address] Consulting Physician Neurology 02/19/23 documented as of this encounter
--- OUTSIDE RECORDS SUMMARY | 2024-09-05 10:14 | XMS_ITS | Encounter Summary ---
Author Organization [facility] Address [address] [place] [address] Phone Care Team Providers Care Flash Ranging Crewmember Name Role Phone Trever Lee MD Unavailable [phone] Gina Man DO Unavailable Encounter Details Date Type Department Care Team (Late st Contact Info) Description 02/20/2023 Scanned Document [facility] [address] [facility] [address] [place] [address] Trever Lee MD [address] [facility], [facility] [address] [place] [address] Social History Tobacco Use Types Packs/Day Years [...] documented as of this encounter Care Teams Flash Ranging Crewmember Relationship Specialty [place] [address] [facility] [address] [place], [place] [phone] PCP - MMO ACO PCP 03/09/23 10/07/23 Trever Lee MD [address] [facility], [address] [place] [address] Consulting Physician Neurology 02/19/23 documented as of this encounter
[2024-09-05 10:18] VITALS: BP 124/75; PULSE 113
== END 2024-09-05 10:40 | disposition home or self-care (01) ==
LOC: FBCO 10:11 → FBC 10:12
PROVIDERS: Visit Provider Obstetrics & Gynecology
DX: O24.419 Gestational diabetes mellitus in pregnancy, unspecified control (principal); Z3A.36 36 weeks gestation of pregnancy
CPT/HCPCS: 59025

== ENCOUNTER 2024-09-06 19:22 | Outpatient (REF) | payer OTHER, SELFPAY | END 2024-09-06 19:23 | disposition home or self-care (01) | LOC: LAB 19:22 | PROVIDERS: Visit Provider Obstetrics & Gynecology | DX: Z34.93 Encounter for supervision of normal pregnancy, unspecified, third trimester (principal) | CPT/HCPCS: 87081 ==

== ENCOUNTER 2024-09-08 15:55 | Outpatient (OUT) | payer OTHER, SELFPAY ==
--- NOTE | 2024-09-08 16:00 | US_ITS ---
[place] [id number] Patient Name: MICHAEL ROQUE MRN: [id number] date: 1985 Sex: F Assigned Patient Location: [facility] Current Patient Location: Accession/Order Number: [id number] Exam Date: 09/08/2024 19:24 Report Date: 09/08/2024 19:25 At the request of: NEISHA PETERSON DO Procedure: US OB BPP w non-stress Ultrasound biophysical profile HISTORY: Gestational diabetes Adequate breathing movement, gross body movement, tone and amniotic fluid volume for total score of 8 out of 8. The amniotic fluid index is 17.9cm within normal limits. The heart rate 152 bpm. US/US OB BPP w non-stress IMPRESSION: Adequate ultrasound biophysical profile Impression dictated by: Roddy Villegas M.D. 09/08/2024 7:25 PM Dictation Location[facility] Electronically authenticated by: [id number] Y Date: 09/08/2024 19:25
[2024-09-08 16:23] VITALS: BP 134/70; PULSE 118
== END 2024-09-08 16:42 | disposition home or self-care (01) ==
LOC: US 15:55 → FBC 15:59
PROVIDERS: Visit Provider Obstetrics & Gynecology
DX: O24.419 Gestational diabetes mellitus in pregnancy, unspecified control (principal); Z3A.36 36 weeks gestation of pregnancy
CPT/HCPCS: 76818

== ENCOUNTER 2024-09-13 10:10 | Outpatient (OUT) | payer OTHER, SELFPAY ==
--- OUTSIDE RECORDS SUMMARY | 2024-09-06 09:34 | XMS_ITS ---
Author Name Auto Generated Organization OHIP Support Name Relationship Address Phone ASTRID YOUNG Next of Kin [address] [place] [address] + ~([phone] BUENO RUPINDER Next of Kin [address] [place] [address] + ASTRID YOUNG Next of Kin [address] [place] [address] + ~(567 GIOVANNY RUPINDER Next of Kin [address] [place] [address] + ASTRID YOUNG Next of Kin [address] [place] [address] + ~(567 BUENO RUPINDER Next of Kin [address] [place] [place] [address] + ASTRID YOUNG Next of Kin Unknown Unavailable ASTRID YOUNG Next of Kin [address] [place] [address] + ~(567 BUENO RUPINDER Next of Kin [address] [facility] [place] [address] + ASTRID YOUNG Next of Kin Unknown Unavailable ASTRID YOUNG Next of Kin [address] [place] [address] + ~(567 GIOVANNY RUPINDER Next of Kin [address] [place] [address] + ASTRID YOUNG Next of Kin [address] [place] [address] + ~(567 PEARL BUENORA Next of Kin [address] [facility] [place] [address] + ASTRID YOUNG Next of Kin [address] [place] [address] + ~(567 BUENO, RUPINDER Next of Kin [address] [place] [address] + ASTRID YOUNG Next of Kin [address] [place] [address] + ~(567 BUENO, RUPINDER Next of Kin [address] [place] [address] + ASTRID YOUNG Next of Kin [address] [place] [address] + ~(567 BUENO, RUPINDER Next of Kin [address] [place] [address] + ASTRID YOUNG Next of Kin [address] [place] [address] + ~(567 BUENO, RUPINDER Next of Kin [address] [place] [address] + ASTRID YOUNG Next of Kin [address] [place] [address] + ~(567 BUENO, RUPINDER Next of Kin [address] [place] [address] + ASTRID YOUNG Next of Kin [address] [place] [address] + ~(567 BUENO, RUPINDER Next of Kin [address] [place] [address] + Carlos Weller Next of Kin [address] [place] [address] + Bueno, Rupinder Next of Kin [address] [place] [address] + BUENO, RUPINDER Next of Kin [address] [place] [address] + [facility] Next of Kin [address] [facility] [place] [address] Un[address] [facility] Next of Kin [address] [facility] [place] [address] Unavailable BUENO, RUPINDER Next of Kin [address] [place] [address] + Care Team Providers Care Scientist Electronics Name Role Phone PHILIPPE DAVISON Attending Unava ilable Daya, Neisha Attending Unavailable Daya, Neisha Admitting Unavailable JOLIEEDER Munoz Attending Unavailable DAYA, NEISHA R Referring Unavailable LEDY, HUMBLE Silva Attending Unavailable DAYA, NEISHA R Referring Unavailable NAKUL, BIRDIE Attending Unavailable NAKUL, BIRDIE Referring Unavailable DAYA, NEISHA Attending Unavailable DAYA, NEISHA Attending Unavailable JEF, BENTLEY Referring Unavailable DAYA, NEISHA Attending Unavailable DAYA, NEISHA Attending Unavailable DAYA, NEISHA Attending Unavailable DAYA, NEISHA Referring Unavailable DAYA, NEISHA Attending Unavailable DAYA, NEISHA Attending Unavailable DAYA, NEISHA Attending Unavailable DAYA, NEISHA Attending Unavailable PROBLEMS DATE TYPE CONDITION / CODE ATTENDING STATUS [facility] RCE 08/09/2024 Unknown Gestational diab etes mellitus in , unspecified control / O24.419(ICD-10) EDER DAVE [facility] 08/09/2024 Unknown Gestational Diab etes / FREETEXT(AOF) [facility] 01/05/2024 Unknown Urinary tract infection, site not specified / N39.0(ICD-10) PHILIPPE DAVISON [facility] 01/05/2024 Unknown Frequency of micturition / R35.0(ICD-10) PHILIPPE DAVISON Active [facility]gent [facility] PROCEDURES No Procedure Records Found RESULTS US OB FOLLOW UP TRANSABDOMINAL APPROACH Observed: 08/09/2024 2:51 PM Status: F Source: [facility] EPIC Order Comment: US OB [...] II, MD, PHD at 11-Aug-2024 08:51:27 AM [facility] US OB FOLLOW UP TRANSABDOMINAL APPROACH Observed: 07/12/2024 10:13 AM Status: F Source: [facility] EPIC Order Comment: US OB [...] II, MD, PHD at 13-Jul-2024 08:42:46 AM [facility] US OB 14+ WEEKS ANATOMY SCAN Observed: 0 05/23/2024 7:59 AM Status: F Source: [facility] EPIC Order Comment: US OB [...] II, MD, PHD at 24-May-2024 12:33:10 AM [facility] URINE CULTURE Observed: 03/08/2024 11:35 AM Status: F Source: [facility] 75,000 colonies/ml mixed bacterial skin contaminants 2 Days PERFORMED BY: [place] [address] PATHOLOGIST MEDICAL CLAIMS SPECIALIST LASHONDA HARMON M.D. Performed By: #### CUU #### [address] ALLERGIES DATE TYPE / CODE NAME / CODE REACTION SEVERITY SOURCE 08/03/2024 DRUG INGREDI/5720617 03(SNOMED CT) CAT DANDER [facility] 08/03/2024 DRUG INGREDI/1375958 03(SNOMED CT) LATEX [facility] 08/03/2024 DRUG INGREDI/1466494 03(SNOMED CT) LORACARBEF [facility] 08/03/2024 Drug Class/843734269 (SNOMED CT) NSAIDS (NON-STEROIDAL ANTI-INFLAMMATORY DRUG) [facility] 09/05/2023 Drug Allergy/7234281 02(SNOMED CT) latex/F615810467(RXNOR M) Rash Unknown [facility] 11/28/2022 DRUG INGREDI~Environ /788426619(SN ED CT) CAT DANDER Itching [facility] 11/28/2022 DRUG INGREDI/8099471 03(SNOMED CT) CAT HAIR STANDARDIZED ALLERGENIC EXTRACT Itching [facility] 08/28/2022 DRUG INGREDI~Environ /466967322(SNOM ED CT) LATEX Rash [facility] 08/28/2022 DRUG INGREDI/5613996 03(SNOMED CT) LORACARBEF Unknown [facility] 06/10/2016 Drug Class/101386278 (SNOMED CT) NSAIDS (NON-STEROIDAL ANTI-INFLAMMATORY DRUG) Other Low [facility] ENCOUNTERS ADMIT/DISCHARGE ACCOUNT NUMBER ADMITTING ENCOUNTER CLASS LOCATION SOURCE 09/06/2024/09/07/19 [id number] Ambulatory Building:[facility] EPIC 08/31/2024/09/01/19 [id number] Ambulatory Building:[facility] OB [facility] 08/17/2024/08/18/19 [id number] Ambulatory Building:[facility] OB [facility] 08/15/2024/08/16/19 [id number] Ambulatory Buildin 4 [facility] 08/09/2024/08/10/19 [id number] Ambulatory Building:[facility] OB [facility] 08/09/2024/08/10/19 25 [id number] Ambulatory Buildin 4 [facility] 08/02/2024/08/03/19 [id number] Ambulatory Building:[facility] OB [facility] 07/12/2024/07/13/19 25 [id number] Ambulatory Building:[facility] OB [facility] 07/12/2024/07/13/19 25 [id number] Ambulatory Building:[facility] OB [facility] 06/20/2024/06/21/19 25 [id number] Ambulatory Building:[facility] OB [facility] 05/23/2024/05/24/19 25 [id number] Ambulatory Building:[facility] EPIC 05/23/2024/05/24/19 25 [id number] Ambulatory Building:[facility] OB [facility] EPIC 04/14/2024/04/14/19 25 [id number] Ambulatory Building:[facility] OB [facility] 03/16/2024/03/16/19 25 [id number] Ambulatory Building:[facility] OB [facility] 03/08/2024/03/08/20 24 [id number] [facility]isha [facility]leton [facility] 02/16/2024/02/16/20 [id number] Ambulatory Building:[facility] EPIC 01/05/2024/01/05/20 [id number] Unknown Building:[facility] 10/20/2023/10/20/19 [id number] Ambulatory Building:[facility] EPIC PAYERS ENCOUNTER GUARANTOR PAYER SUBSCRIBER SOURCE 09/06/2024 MICHAEL CRUMB: [place] [address]Tbr: () Primary Insurance:MEDICAL MUTUALPolicy Number: [id number] Date:2022-08-07 MICHAEL WELLERDOB: [id number] [place] [address] [facility] 09/06/2024 Secondary Insurance:CARESOURCE MEDICAIDPolicy Number: [id number] Date:2024-08-07 MICHAEL WELLERDOB: [id number] [place] [address] [facility] 08/31/2024 MICHAEL WELLERDOB: [place] [address]Oyk: () Primary Insurance:MEDICAL MUTUALPolicy Number: [id number] Date:2022-08-07 MICHAEL WELLERDOB: [id number] [place] [address] [facility] 08/31/2024 Secondary Insurance:CARESOURCE MEDICAIDPolicy Number: [id number] Date:2024-08-07 MICHAEL WELLERDOB: [id number] [place] [address] [facility] 08/17/2024 MICHAEL R RICKENBAUGHDOB: [place] [address]Skm: (HP) Primary Insurance:MEDICAL MUTUALPolicy Number: [id number] Date:2022-08-07 MICHAEL R RICKDEBBIBAUGHDOB: [id number] [address] [facility] [place] [address] [facility] 08/17/2024 Secondary Insurance:CARESOURCE MEDICAIDPolicy Number: [id number] Date:2024-08-07 MICHAEL R RICKDEBBIBAUGHDOB: [id number] [address] [facility] [place] [address] [facility] 08/15/2024 MICHAEL LONGUGHDOB: [address] LONGORIABANNER BAYWOOD MEDICAL [place]ENTERJUL[place], [place] [address]Zwm: (HP) Primary Insurance:[facility] Number: [id number] Date:2024-03-09 MICHAEL HERNANDEZENBAUGHDOB: [id number] [address] [facility], [place] [address]Uqd: () [facility] 08/15/2024 Secondary Insurance:[facility] [place] Number: [id number] Date:2024-03-09 MICHAEL WELLERDOB: [id number] [address] [facility] [place] [address]Zwb: (HP) [facility] 08/15/2024 Tertiary Insurance:[employer] MEDICAID HMOPolicy Number: [id number] Date:2024-08-07 MICHAEL RICKDEBBIBAUGHDOB: [id number] [address] [place] [address]Nwt: (HP) () [facility] 08/09/2024 MICHAEL R RICKDEBBIBAUGHDOB: [place] [address]Wkb: (HP) Primary Insurance:MEDICAL MUTUALPolicy Number: [id number] Date:2022-08-07 MICHAEL GODINEZBAUGHDOB: [id number] [place] [address] [facility] 08/09/2024 Secondary Insurance:CARESOURCE MEDICAIDPolicy Number: [id number] Date:2024-08-07 MICHAEL Schroeder RICKDEBBIBAUGHDOB: [id number] [address] [facility] [place] [address] [facility] 08/09/2024 MICHAEL HERNANDEZMELLISSAUGHDOB: RED[address] LONGORIAYULIANAJOYHernánCOLUMBUS, [place] [address]Ulj: (HP) Primary Insurance:[facility] [place] Number: [id number] Date:2024-03-09 MICHAEL HERNANDEZDEBBIBAUGHDOB: [id number] [address] [facility] [place], [place] [address]Ybz: () [facility] 08/09/2024 Secondary Insurance:CARESOURCE MEDICAID HMOPolicy Number: [id number] Date:2024-08-07 MICHAEL WELLERDOB: [id number] [address] [place] [place], [place] [address]Hdz: (HP) () [facility] 08/02/2024 MICHAEL R RICKDEBBIBAUGHDOB: [address] [facility] [address]Fkq: (HP) Primary Insurance:MEDICAL MUTUALPolicy Number: [id number] Date:2022-08-07 MICHAEL R GRETCHENBAUGHDOB: [id number] [address] [facility] [place] [address] [facility] 07/12/2024 MICHAEL R RICKENBAUGHDOB: [place] [address]Aac: (HP) Primary Insurance:MEDICAL MUTUALPolicy Number: [id number] Date:2022-08-07 MICHAEL R RICKENBAUGHDOB: [id number] [place] [address] [facility] 07/12/2024 MICHAEL R RICKENBAUGHDOB: [place] [address]Jzu: (HP) Primary Insurance:MEDICAL MUTUALPolicy Number: [id number] Date:2022-08-07 MICHAEL R RICKENBAUGHDOB: [id number] [place] [address] [facility] 06/20/2024 MICHAEL R RICKENBAUGHDOB: [address] [place] [address]Rbj: (HP) Primary Insurance:MEDICAL MUTUALPolicy Number: [id number] Date:2022-08-07 MICHAEL R RICKENBAUGHDOB: [id number] [place] [address] [facility] 06/20/2024 Secondary Insurance:MEDICAID [place]Policy Number: [id number] Date:2023-12-08 MICHAEL R RICKENBAUGHDOB: [id number] [place] [address] [facility] 05/23/2024 MICHAEL R RICKENBAUGHDOB: [address] [place] [address]Azs: (HP) Primary Insurance:MEDICAL MUTUALPolicy Number: [id number] Date:2022-08-07 MICHAEL R RICKENBAUGHDOB: [id number] [place] [address] [facility] 05/23/2024 Secondary Insurance:MEDICAID [place]Policy Number: [id number] Date:2023-12-08 MICHAEL R RICKENBAUGHDOB: [id number] [place] [address] [facility] 05/23/2024 MICHAEL R RICKENBAUGHDOB: [place] [address]Uqc: (HP) Primary Insurance:MEDICAL MUTUALPolicy Number: [id number] Date:2022-08-07 MICHAEL R RICKENBAUGHDOB: [id number] [place] [place] [address] [facility] 05/23/2024 Secondary Insurance:MEDICAID [place]Policy Number: [id number] Date:2023-12-08 MICHAEL R RICKENBAUGHDOB: [id number] [place] [address] [facility] 04/14/2024 MICHAEL R RICKENBAUGHDOB: [place] [place] [address]Vlo: (HP) Primary Insurance:MEDICAL MUTUALPolicy Number: [id number] Date:2022-08-07 MICHAEL R RICKENBAUGHDOB: [id number] [place] [address] [facility] 03/16/2024 MICHAEL R RICKENBAUGHDOB: [place] [address]Rfi: (HP) Primary Insurance:MEDICAL MUTUALPolicy Number: [id number] Date:2022-08-07 MICHAEL R RICKENBAUGHDOB: [id number] [place] [address] [facility] 03/08/2024 Michael R [id number] [place] [address]Wfk: (HP) Primary Insurance:Self PayPolicy Number: Effective Date:2024-03-08 [facility]/16/2024 MICHAEL CRUMB: [place] [address]Urd: (HP) Primary Insurance:MEDICAL MUTUALPolicy Number: [id number] Date:2022-08-07 MICHAEL CRUMB: [id number] [place] [address] [facility] 01/05/2024 MICHAEL CRUMB: [place] [address]Ern: (HP) Primary Insurance:[facility]PITALPoly Number: [id number] Date:2022-08-07 MICHAEL CRUMB: [id number] [place] [place] [address]Oic: (HP) Urgent Care 10/20/2023 MICHAEL CRUMB: [place] [address]Ssi: (HP) Primary Insurance:MEDICAL MUTUALPolicy Number: [id number] Date:2022-08-07 MICHAEL CRUMB: [id number] [place] [address] [facility]
[2024-09-13 10:16] VITALS: BP 123/77; PULSE 125
[2024-09-13 10:36] VITALS: BP 131/83; PULSE 127
== END 2024-09-13 10:39 | disposition home or self-care (01) ==
LOC: FBCO 10:10 → FBC 10:11
PROVIDERS: Visit Provider Obstetrics & Gynecology
DX: O99.283 Endocrine, nutritional and metabolic diseases complicating pregnancy, third trimester (principal)
CPT/HCPCS: 59025

== ENCOUNTER 2024-09-14 05:12 | Inpatient (IN) | payer OTHER, SELFPAY ==
--- OUTSIDE RECORDS SUMMARY | 2024-08-31 11:20 | XMS_ITS | Encounter Summary ---
Author Organization [facility] Address [address] [place] [address] Care Team Providers Care Adjunct Mathematics Instructor Name Role Phone Juaquin Rae DO Primary Care Provider +1- [phone] Reason for Visit * Reason Comments Routine Visit Encounter Details Date Type Department Care Team (Late st Contact Info) Description 08/31/2024 11:20 AM EDT Routine [facility] [address] [facility] [phone] Matt Stapleton DO [address] [facility] [address] [place], [facility]11 35 weeks gestation of ([facility]); Third trimester ([facility]); Excessive growth affecting management of , antepartum, single or unspecified fetus ([facility]); Multigravida of advanced maternal age in third trimester ([facility]); Insulin controlled gestational diabetes mellitus (GDM) in third trimester ([facility]) Social History Tobacco Use Types Packs/Day [...] Sign Reading Time Taken Comments Blood Pressure 116/70 08/31/2024 11:42 AM EDT Pulse - - Temperature - - Respiratory Rate - - Oxygen Saturation - - Inhaled Oxygen Concentration - - Weight 109 kg (241 lb 6.4 oz) 08/31/2024 11:42 A M EDT Height - - Body Mass Index 40.17 05/30/2021 12:00 PM EDT documented in this encounter Progress Notes * Bisi NixonSUZY - 08/31/2024 11:20 AM EDT Reason for Appointment: Patient ID: Jonna Weller is a 38 y.o. female who presents for Routine Visit Patient presents today for Return OB appointment. MEDICATIONS Current Outpatient Medications Medication Instructions Alcohol Swabs (Alcohol Prep Pad) 70 % pads 1 Pad, Topical, Daily, Use four times daily to check FSBS. Blood Glucose Monitoring Suppl (TwentyFeet Glucometer) w/Device kit 1 kit, Does not apply, Daily, Use four times daily to check FSBS. In the morning prior to breakfast & 1 hour after each meal for a total of 4times daily. insulin lispro (HUMALOG) 3 Units, 3 times daily with meals insulin syringe 29G X 1/2 0.5 mL misc Use as instructed iron polysaccharides (PROFE) 391.3 mg, Oral, Daily Lantus SoloStar 17 Units, Nightly ALLERGIES Allergies Allergen Reactions Cat Dander Itching [...] nursing note reviewed. Exam conducted with a assembly leader present. Vitals: Estimated body mass index is 40.17 kg/m?? as calculated from the following: Height as of 05/30/21: 5' 5 . Weight as of this encounter: 241 lb 6.4 oz. BP: 116/70 Patient's last menstrual period was 12/18/2023. ASSESSMENT & PLAN ICD-10-CM 1. 35 weeks gestation of ([facility]) Z3A.35 POCT urinalysis dipstick manually resulted 2. Third trimester ([facility]) Z34.93 POCT urinalysis dipstick manually resulted 3. Excessive growth affecting management of , antepartum, single or unspecified fetus ([facility]) O36.60X0 US OB follow up transabdominal approach 4. Multigravida of advanced maternal age in third trimester ([facility]) O09.523 5. Insulin controlled gestational diabetes mellitus (GDM) in third trimester ([facility]) O24.414 Return OB: Patient presents today for a routine obstetrics appointment. Patient is currently 35w4d . Patient states she is doing well but has complaints of being tired due to current . Patient has verbalizes frequent movement. labor precautions was discussed/given and patient was instructed to perform kick counts three times a day. Pt continuing to call in sugars to MFM-recently increased insulin. Orders Placed This Encounter Procedures US OB follow up transabdominal approach POCT urinalysis dipstick manually resulted Follow Up: Patient is to return to office in 1 week for routine OB appointment. Documented by Bisi Nixon LPN on behalf of: Matt Stapleton DO documented in this encounter Plan of Treatment Upcoming Encounters Date Type Department Care Team (Late st Contact Info) Description 10/26/2024 4:00 PM EDT Office Visit [facility] [address] [place] [address] Matt Stapleton DO [address] [place] [address] Scheduled Orders Name Type Priority Associated Diagnoses Orde r Schedule US OB follow up transabdominal approach Imaging Routine Excessive growth affecting management of , antepartum, single or unspecified fetus ([facility]) Expected: 08/31/2024, Expires: 12/31/2024 documented as of this encounter Goals Goal Patient Goal Type Associated Problems Recent Progress Patient-Stated? Author Reminders Care Plan OB Reminders No Open Scheduling, Background documented as of this encounter Procedures Procedure Name Priority Date/Time Associated Diagnosis Comments POCT URINALYSIS DIPSTICK Routine 08/31/2024 11:49 AM EDT 35 weeks gestation of ([facility]) Third trimester ([facility]) documented in this encounter Results * (ABNORMAL) POCT urinalysis dipstick manually resulted (08/31/2024 11:49 AM EDT) Color, UA Yellow Clarity, UA Clear Glucose, UA Negative Negative - 2000(110) ++++ mg/dL Bilirubin, UA Negative Negative - 4(70) +++ mg/dL Ketones, UA Positive Negative - 160(16) ++++ mg/dL Comment:trace Spec Grav, UA 1.030 1 - 1.03 Blood, UA Negative Negative - 50 Shaun/mcL pH, UA 6.0 5 - 9 Protein, UA Trace Negative - 2000(20) ++++ mg/dL Urobilinogen, UA 0.2 0.2 - 12 mg/dL Leukocytes, UA Trace Negative - 500+++ Denys/mcL Nitrite, UA Negative Negative - Positive Urine 08/31/2024 11:4 9 AM EDT Matt Stapleton DO POINT OF CARE TEST ENTER/EDIT OR DERABLES Final Result documented in this encounter Visit Diagnoses Diagnosis 35 weeks gestation of ([facility]) Third trimester ([facility]) state, incidental Excessive growth affecting management of , antepartum, single or unspecified fetus ([facility]) Multigravida of advanced maternal age in third trimester ([facility]) Insulin controlled gestational diabetes mellitus (GDM) in third trimester ([facility]) documented in this encounter Additional Health Concerns Active Problems Noted Date Diagnosed Date OB Reminders 04/14/2024 documented as of this encounter Care Teams Adjunct Mathematics Instructor Relationship Specialty Start Date End Date Juaquin Rae DO [address] [facility] [address] [place] [address] PCP - General Family Medicine 07/15/22 documented as of this encounter
--- OUTSIDE RECORDS SUMMARY | 2024-09-06 09:30 | XMS_ITS | Encounter Summary ---
Author Organization [facility] Address [address] [place] [address] Care Team Providers Care Advanced Manufacturing Consultant Name Role Phone Juaquin Rae DO Primary Care Provider [phone] Reason for Visit * Reason Comments Routine Visit Encounter Details Date Type Department Care Team (Latest Contact Info) Description 09/06/2024 9:30 AM EDT Routine [facility] [address] [place] [phone] Matt Stapleton, [address] [place], [place] [id number] Third trimester ([facility]); 36 weeks gestation of ([facility]); Excessive growth affecting management of , antepartum, single or unspecified fetus ([facility]); Insulin controlled gestational diabetes mellitus (GDM) in third trimester ([facility]); Antepartum multigravida of advanced maternal age ([facility]) Social History Tobacco Use Types Packs/Day Years [...] Sign Reading Time Taken Comments Blood Pressure 110/70 09/06/2024 9:48 AM EDT Pulse - - Temperature - - Respiratory Rate - - Oxygen Saturation - - Inhaled Oxygen Concentration - - Weight 110 kg (243 lb 8 oz) 09/06/2024 9:48 AM E DT Height - - Body Mass Index 40.52 05/30/2021 12:00 PM EDT documented in this encounter Progress Notes * Bisi NixonSUZY - 09/06/2024 9:30 AM EDT Reason for Appointment: Patient ID: Jonna Weller is a 38 y.o. female who presents for Routine Visit Patient presents today for Return OB appointment. MEDICATIONS Current Outpatient Medications Medication Instructions Alcohol Swabs (Alcohol Prep Pad) 70 % pads 1 Pad, Topical, Daily, Use four times daily to check FSBS. Blood Glucose Monitoring Suppl (Kohort Glucometer) w/Device kit 1 kit, Does not [...] Constitutional: Appearance: Normal appearance. She is well-developed. Genitourinary: Vulva normal. Cardiovascular: Rate and Rhythm: Normal rate and [...] nursing note reviewed. Exam conducted with a chemical etching processor present. Vitals: Estimated body mass index is 40.52 kg/m?? as calculated from the following: Height as of 05/30/21: 5' 5 . Weight as of this encounter: 243 lb 8 oz. BP: 110/70 Patient's last menstrual period was 12/18/2023. ASSESSMENT & PLAN ICD-10-CM 1. Third trimester ([facility]) Z34.93 POCT urinalysis dipstick manually resulted CULTURE, GROUP B STREP WITH SUSCEPTIBLITY CULTURE, GROUP B STREP WITH SUSCEPTIBLITY 2. 36 weeks gestation of ([facility]) Z3A.36 3. Excessive growth affecting management of , antepartum, single or unspecified fetus ([facility]) O36.60X0 4. Insulin controlled gestational diabetes mellitus (GDM) in third trimester ([facility]) O24.414 5. Antepartum multigravida of advanced maternal age ([facility]) O09.529 Patient is doing well but has complaints of being tired and having maternal discomfort due to . Patient verbalized frequent movement and was instructed to perform kick counts three times per day. labor precautions were given, LARC consent was signed/declined, and GBS was obtained. Cervical check was performed and patient is 1cm dilated. Pt to be induced on 09/14/24 [id number]. Induction consents signed. Orders Placed This Encounter Procedures CULTURE, GROUP B STREP WITH SUSCEPTIBLITY POCT urinalysis dipstick manually resulted Follow Up: Patient is to return to office in 1 week for routine OB appointment Documented by Bisi Nixon LPN on behalf of: Matt Stapleton DO documented in this encounter Plan of Treatment Upcoming Encounters Date Type Department Care Team (Late st Contact Info) Description 10/26/2024 4:00 PM EDT Office Visit [facility] [address] [place] [phone] Matt Stapleton DO [address] [place] [address] Scheduled Orders Name Type Priority Associated Diagnoses Orde r Schedule CULTURE, GROUP B STREP WITH SUSCEPTIBLITY Lab Routine Third trimester ([facility]) Expected: 09/06/2024, Expires: 09/06/2025 documented as of this encounter Goals Goal Patient Goal Type Associated Problems Recent Progress Patient-Stated? Author Reminders Care Plan OB Reminders No Open Scheduling, Background documented as of this encounter Procedures Procedure Name Priority Date/Time Associated Diagnosis Comments POCT URINALYSIS DIPSTICK Routine 09/06/2024 9:52 AM EDT Third trimester ([facility]) documented in this encounter Results * (ABNORMAL) POCT urinalysis dipstick manually resulted (09/06/2024 9:52 AM EDT) Color, UA Yellow Clarity, UA Clear Glucose, UA Negative Negative - 2000(110) ++++ mg/dL Bilirubin, UA Negative Negative - 4(70) +++ mg/dL Ketones, UA Negative Negative - 160(16) ++++ mg/dL Spec Grav, UA 1.025 1 - 1.03 Blood, UA Negative Negative - 50 Shaun/mcL pH, UA 6.0 5 - 9 Protein, UA Negative Negative - 2000(20) ++++ mg/dL Urobilinogen, UA 0.2 0.2 - 12 mg/dL Leukocytes, UA Positive Negative - 500+++ Denys/mcL Comment:small Nitrite, UA Negative Negative - Positive Urine 09/06/2024 9:52 AM EDT Matt Stapleton DO POINT OF CARE TEST ENTER/EDIT OR DERABLES Final Result documented in this encounter Visit Diagnoses Diagnosis Third trimester ([facility]) state, incidental 36 weeks gestation of ([facility]) Excessive growth affecting management of , antepartum, single or unspecified fetus ([facility]) Insulin controlled gestational diabetes mellitus (GDM) in third trimester ([facility]) Antepartum multigravida of advanced maternal age ([facility]) documented in this encounter Additional Health Concerns Active Problems Noted Date Diagnosed Date OB Reminders 04/14/2024 documented as of this encounter Care Teams Advanced Manufacturing Consultant Relationship Specialty Start Date End Date Juaquin Rae DO [address] [place] [address] PCP - General Family Medicine 07/15/22 documented as of this encounter
--- OUTSIDE RECORDS SUMMARY | 2024-09-06 09:34 | XMS_ITS ---
Author Name Auto Generated Organization OHIP Support Name Relationship Address Phone ASTRID YOUNG Next of Kin [address] [facility] [place] [place] [address] + ~[phone] BUENO RUPINDER Next of Kin [address] [place] [address] + ASTRID YOUNG Next of Kin [address] [facility] [place] [place] [address] + ~([phone] GIOVANNY RUPINDER Next of Kin [address] [place] [address] + ASTRID YOUNG Next of Kin [address] [facility] [place] [place] [address] + ~([phone] BUENO RUPINDER Next of Kin [address] [place] [address] + ASTRID YOUNG Next of Kin Unknown Unavailable ASTRID YOUNG Next of Kin [address] [facility] [place] [place] [address] + ~([phone] BUENO RUPINDER Next of Kin [address] [place] [address] + ASTRID YOUNG Next of Kin Unknown Unavailable ASTRID YOUNG Next of Kin [address] [facility] [place] [place] [address] + ~([phone] GIOVANNY RUPINDER Next of Kin [address] [place] [address] + ASTRID YOUNG Next of Kin [address] [facility] [place] [place] [address] + ~([phone] PEARL BUENORA Next of Kin [address] [place] [address] + ASTRID YOUNG Next of Kin [address] [place] [address] + ~([phone] BUENO, RUPINDER Next of Kin [address] [place] [address] + ASTRID YOUNG Next of Kin [address] [place] [address] + ~([phone] BUENO, RUPINDER Next of Kin [address] [place] [address] + ASTRID YOUNG Next of Kin [address] [place] [address] + ~([phone] BUENO, RUPINDER Next of Kin [address] [place] [address] + ASTRID YOUNG Next of Kin [address] [place] [address] + ~(567 BUENO, RUPINDER Next of Kin [address] [place] [address] + ASTRID YOUNG Next of Kin [address] [place] [address] + ~(567 BUENO, RUPINDER Next of Kin [address] [place] [address] + ASTRID YOUNG Next of Kin [address] [place] [address] + ~([phone] BUENO, RUPINDER Next of Kin [address] [place] [address] + Carlos Weller Next of Kin [address] [place] [address] + Bueno, Rupinder Next of Kin [address] [place] [address] + BUENO, RUPINDER Next of [place] [address] [place] [address] + [facility] Next of Kin [address] [facility] [place] [address] Unavailable [facility] Next of Kin [address] [facility] [place] [address] Unavailable BUENO, RUPINDER Next of Kin [address] [place] [address] + Care Team Providers Care Chamber Worker Name Role Phone NAKUL, BIRDIE Attending Unavailable NAKUL, BIRDIE Referring Unavailable DAYA, NEISHA Attending Unavailable DAYA, NEISHA Attending Unavailable JEF, BENTLEY Referring Unavailable DAYA, NEISHA Attending Unavailable DAYA, NEISHA Attending Unavailable DAYA, NEISHA Attending Unavailable DAYA, NEISHA Referring Unavailable DAYA, NEISHA Attending Unavailable DAYA, NEISHA Attending Unavailable DAYA, NEISHA Attending Unavailable DAYA, NEISHA Attending Unavailable Daya, Neisha Attending Unavailable Daya, Neisha Admitting Unavailable JOLIE, EDER Attending Unavailable DAYA, NEISHA R Referring Unavailable HUMBLE VILLAFANA Attending Unavailable DAYA, NEISHA R Referring Unavailable PHILIPPE DAVISON Attending Unava ilable PROBLEMS DATE TYPE CONDITION / CODE ATTENDING STATUS [facility] 08/09/2024 Unknown Gestational diab etes mellitus in , unspecified control / O24.419(ICD-10) [facility] Unknown Gestational Diab etes / FREETEXT(AOF) [facility] 01/05/2024 Unknown Urinary tract infection, site not specified / N39.0(ICD-10) [facility] 01/05/2024 Unknown Frequency of micturition / R35.0(ICD-10) [facility] PROCEDURES No Procedure Records Found RESULTS US OB FOLLOW UP TRANSABDOMINAL APPROACH Observed: 08/09/2024 2:51 PM Status: F Source: [facility] EPIC Order Comment: US OB SCAN FO R GROWTH Estimated Date of Delivery: 10/01/24 Gestational Age as of 07/12/2024: 28w3d EXAM: US OB FOLLOW UP TRANSA BDOMINAL APPROACH HISTORY: AMA. COMPARISON: Ob ultrasound 07/12/2024. [...] II, MD, PHD at 11-Aug-2024 08:51:27 AM [facility] US OB FOLLOW UP TRANSABDOMINAL APPROACH Observed: 07/12/2024 10:13 AM Status: F Source: [facility] EPIC Order Comment: US OB SCAN FO R GROWTH Estimated Date of Delivery: 10/01/24 Gestational Age as of 06/20/2024: 25w2d EXAM: US OB FOLLOW UP TRANSA BDOMINAL APPROACH HISTORY: AMA. [place]AL[place] 10/01/2024. A2. COMPARISON: [...] II, MD, PHD at 13-Jul-2024 08:42:46 AM [facility] US OB 14+ WEEKS ANATOMY SCAN Observed: 0 05/23/2024 7:59 AM Status: F Source: [facility] EPIC Order Comment: US OB ANATOMY SINGLE W US OB CERVICAL LENGTH Estimated Date of Delivery: 10/01/24 Gestational Age as of 04/14/2024: 15w5d EXAM: US OB 14+ WEEKS ANATOM Y SCAN HISTORY: anatomy. COMPARISON: None available. TECHNIQUE: [...] II, MD, PHD at 24-May-2024 12:33:10 AM [facility] URINE CULTURE Observed: 03/08/2024 11:35 AM Status: F Source: [facility] 75,000 colonies/ml mixed bacterial skin contaminants 2 Days PERFORMED BY: [place] [address] PATHOLOGIST [employer]ICE MANAGER LASHONDA HARMON M.D. Performed By: #### CUU #### [address] ALLERGIES DATE TYPE / CODE NAME / CODE REACTION SEVERITY SOURCE 08/03/2024 DRUG INGREDI/7944267 03(SNOMED CT) CAT DANDER [facility] 08/03/2024 DRUG INGREDI/8212895 03(SNOMED CT) LATEX [facility] 08/03/2024 DRUG INGREDI/5268993 03(SNOMED CT) LORACARBEF [facility] 08/03/2024 Drug Class/030651998 (SNOMED CT) NSAIDS (NON-STEROIDAL ANTI-INFLAMMATORY DRUG) [facility] 09/05/2023 Drug Allergy/8707132 02(SNOMED CT) latex/P265662185(RXNOR M) Rash Unknown [facility] 11/28/2022 DRUG INGREDI~Environ /046220100(SN ED CT) CAT DANDER Itching [facility] 11/28/2022 DRUG INGREDI/3419423 03(SNOMED CT) CAT HAIR STANDARDIZED ALLERGENIC EXTRACT Itching [facility] 08/28/2022 DRUG INGREDI~Environ /157913080(SNOM ED CT) LATEX Rash [facility] 08/28/2022 DRUG INGREDI/3019204 03(SNOMED CT) LORACARBEF Unknown [facility] 06/10/2016 Drug Class/278414178 (SNOMED CT) NSAIDS (NON-STEROIDAL ANTI-INFLAMMATORY DRUG) Other [facility] ENCOUNTERS ADMIT/DISCHARGE ACCOUNT NUMBER ADMITTING ENCOUNTER CLASS LOCATION SOURCE 09/06/2024/09/07/19 [id number] Ambulatory Building:NOM S BCP OB [facility] EPIC 08/31/2024/09/01/19 [id number] Ambulatory Building:NOM S [facility] OB [facility] 08/17/2024/08/18/19 [id number] Ambulatory Building:NOM S [facility] OB [facility] 08/15/2024/08/16/19 [id number] Ambulatory Buildin 4 [facility] 08/09/2024/08/10/19 [id number] Ambulatory Building:NOM S [facility] OB [facility] 08/09/2024/08/10/19 25 [id number] Ambulatory Buildin 4 [facility] 08/02/2024/08/03/19 [id number] Ambulatory Building:NOM S [facility] OB [facility] 07/12/2024/07/13/19 25 [id number] Ambulatory Building:NOM S [facility] OB [facility] 07/12/2024/07/13/19 25 [id number] Ambulatory Building:NOM S [facility] OB [facility] 06/20/2024/06/21/19 25 [id number] Ambulatory Building:NOM S [facility] OB [facility] 05/23/2024/05/24/19 25 [id number] Ambulatory Building:NOM S BCP OB [facility] EPIC 05/23/2024/05/24/19 25 [id number] Ambulatory Building:NOM S [facility] OB [facility] EPIC 04/14/2024/04/14/19 25 [id number] Ambulatory Building:NOM S [facility] OB [facility] 03/16/2024/03/16/19 25 [id number] Ambulatory Building:NOM S [facility] OB [facility] 03/08/2024/03/08/20 24 [id number] Neisha [facility] 02/16/2024/02/16/20 [id number] Ambulatory Building:NOM S BCP OB [facility] EPIC 01/05/2024/01/05/20 [id number] Unknown Building:[facility] 10/20/2023/10/20/19 [id number] Ambulatory Building:NOM S BCP OB [facility] EPIC PAYERS ENCOUNTER GUARANTOR PAYER SUBSCRIBER SOURCE 09/06/2024 MICHAEL CRUMB: [place] [address]Aig: () Primary Insurance:MEDICAL MUTUALPolicy Number: [id number] Date:2022-08-07 MICHAEL WELLERDOB: [id number] [place] [address] [facility] 09/06/2024 Secondary Insurance:[employer]ESOURCE MEDICAIDPolicy Number: [id number] Date:2024-08-07 MICHAEL WELLERDOB: [id number] [place] [address] [facility] 08/31/2024 MICHAEL WELLERDOB: [place] [address]Fan: () Primary Insurance:MEDICAL MUTUALPolicy Number: [id number] Date:2022-08-07 MICHAEL WELLERDOB: [id number] [place] [address] [facility] 08/31/2024 Secondary Insurance:[employer]ESOURCE MEDICAIDPolicy Number: [id number] Date:2024-08-07 MICHAEL WELLERDOB: [id number] [place] [address] [facility] 08/17/2024 MICHAEL R RICKENBAUGHDOB: [place] [address]Fis: (HP) Primary Insurance:MEDICAL MUTUALPolicy Number: [id number] Date:2022-08-07 MICHAEL R RICKDEBBIBAUGHDOB: [id number] [address] [facility] [place] [address] [facility] 08/17/2024 Secondary Insurance:[employer]OURCE MEDICAIDPolicy Number: [id number] Date:2024-08-07 MICHAEL R RICKDEBBIBAUGHDOB: [id number] [address] [facility] [place] [address] [facility] 08/15/2024 MICHAEL LONGUGHDOB: [address] [facility]IAWEST[facility] MEDICAL CENTERJ[place], [place] [address]Xqt: (HP) Primary Insurance:[facility] SUPERMEDPolicy Number: [id number] Date:2024-03-09 MICHAEL HERNANDEZENBAUGHDOB: [id number] [address] [facility] [place] [address]Ljt: () [facility] 08/15/2024 Secondary Insurance:[facility] SUPERMEDPolicy Number: [id number] Date:2024-03-09 MICHAEL WELLERDOB: [id number] [address] [facility] [place] [address]Wyr: (HP) [facility] 08/15/2024 Tertiary Insurance:[employer] MEDICAID HMOPolicy Number: [id number] Date:2024-08-07 MICHAEL RICKDEBBIBAUGHDOB: [id number] [address] [place] [place] [address]Fax: (HP) () [facility] 08/09/2024 MICHAEL R RICKDEBBIBAUGHDOB: [place] [address]Khy: (HP) Primary Insurance:MEDICAL MUTUALPolicy Number: [id number] Date:2022-08-07 MICHAEL GODINEZBAUGHDOB: [id number] [place] [address] [facility] 08/09/2024 Secondary Insurance:[employer]OURCE MEDICAIDPolicy Number: [id number] Date:2024-08-07 MICHAEL Schroeder RICKDEBBIBAUGHDOB: [id number] [address] [facility] [place] [address] [facility] 08/09/2024 MICHAEL HERNANDEZMELLISSAUGHDOB: [address] LONGORIAYULIANAJOYHernánLEX[place], [place] [address]Voo: (HP) Primary Insurance:[facility] SUPERMEDPolicy Number: [id number] Date:2024-03-09 MICHAEL HERNANDEZDEBBIBAUGHDOB: [id number] [address] [facility] [place] [address]Mea: () [facility] 08/09/2024 Secondary Insurance:[employer] MEDICAID HMOPolicy Number: [id number] Date:2024-08-07 MICHAEL WELLERDOB: [id number] [address] [place], [place] [address]Xmw: (HP) () [facility] 08/02/2024 MICHAEL R RICKDEBBIBAUGHDOB: [address] [facility] [place] [address]Sxk: (HP) Primary Insurance:MEDICAL MUTUALPolicy Number: [id number] Date:2022-08-07 MICHAEL R GRETCHENBAUGHDOB: [id number] [address] [facility] [place] [address] [facility] 07/12/2024 MICHAEL R RICKENBAUGHDOB: [place] [address]Shm: (HP) Primary Insurance:MEDICAL MUTUALPolicy Number: [id number] Date:2022-08-07 MICHAEL R RICKENBAUGHDOB: [id number] [place] [address] [facility] EPIC 07/12/2024 MICHAEL R RICKENBAUGHDOB: [place] [address]Gdp: (HP) Primary Insurance:MEDICAL MUTUALPolicy Number: [id number] Date:2022-08-07 MICHAEL R RICKENBAUGHDOB: [id number] [place] [address] [facility] EP[facility] 06/20/2024 MICHAEL R RICKENBAUGHDOB: [address] [place] [address]Zsj: (HP) Primary Insurance:MEDICAL MUTUALPolicy Number: [id number] Date:2022-08-07 MICHAEL R RICKENBAUGHDOB: [id number] [place] [address] [facility] 06/20/2024 Secondary Insurance:MEDICAID [place] Number: [id number] Date:2023-12-08 MICHAEL R RICKENBAUGHDOB: [id number] [place] [address] [facility] EP[facility] 05/23/2024 MICHAEL R RICKENBAUGHDOB: [address] [place] [address]Xhs: (HP) Primary Insurance:MEDICAL MUTUALPolicy Number: [id number] Date:2022-08-07 MICHAEL R RICKENBAUGHDOB: [id number] [place] [address] [facility] 05/23/2024 Secondary Insurance:MEDICAID [place] Number: [id number] Date:2023-12-08 MICHAEL R RICKENBAUGHDOB: [id number] [place] [address] [facility] EP[facility] 05/23/2024 MICHAEL R RICKENBAUGHDOB: [place] [address]Jag: (HP) Primary Insurance:MEDICAL MUTUALPolicy Number: [id number] Date:2022-08-07 MICHAEL R RICKENBAUGHDOB: [id number] [place] [address] [facility] 05/23/2024 Secondary Insurance:MEDICAID [place] Number: [id number] Date:2023-12-08 MICHAEL R RICKENBAUGHDOB: [id number] [place] [address] [facility] 04/14/2024 MICHAEL R RICKENBAUGHDOB: [place] [address]Uog: (HP) Primary Insurance:MEDICAL MUTUALPolicy Number: [id number] Date:2022-08-07 MICHAEL R RICKENBAUGHDOB: [id number] [place] [address] [facility] 03/16/2024 MICHAEL R RICKENBAUGHDOB: [place] [address]Ftj: (HP) Primary Insurance:MEDICAL MUTUALPolicy Number: [id number] Date:2022-08-07 MICHAEL R RICKENBAUGHDOB: [id number] [place] [address] [facility] EP[facility] 03/08/2024 Michael R [id number] [place] [address]Ezt: (HP) Primary Insurance:Self PayPolicy Number: Effective Date:2024-03-08 [facility] MICHAEL CRUMB: [place] [address]Eia: (HP) Primary Insurance:MEDICAL MUTUALPolicy Number: [id number] Date:2022-08-07 MICHAEL CRUMB: [id number] [place] [address] [facility] 01/05/2024 MICHAEL CRUMB: [place] [address]Hpg: (HP) Primary Insurance:[facility]TONPoly Number: [id number] Date:2022-08-07 MICHAEL CRUMB: [id number] [address] [place], [place] [address]Avz: (HP) Urgent Care 10/20/2023 MICHAEL CRUMB: [place] [address]Ubn: (HP) Primary Insurance:MEDICAL MUTUALPolicy Number: [id number] Date:2022-08-07 MICHAEL CRUMB: [id number] [place] [address] [facility]
[2024-09-14] VITALS (55 sets, daily range): BP systolic 91–162; BP diastolic 50–126; PULSE 72–115; TEMP 36.4–37.1
--- OUTSIDE RECORDS SUMMARY | 2024-09-14 05:14 | XMS_ITS | Encounter Summary ---
Author Organization [facility] Address [address] [place] [address] Care Team Providers Care Tortilla Maker Name Role Phone Juaquin Rae Amira SORIA Primary Care Provider +1- [phone] Encounter Details Date Type Department Care Team (Late st Contact Info) Description 08/02/2024 Abstract [facility] OB [address] [place] [id number] Matt Stapleton DO [address] [place], [place] [address] Social History Tobacco Use Types Packs/Day Years [...] 10/26/2024 4:00 PM EDT Office Visit [facility] [place] [address] [place] [address] Matt Stapleton DO [address] [place], [place] [address] documented as of this encounter Goals Goal Patient Goal Type Associated Problems Recent Progress Patient-Stated? Author Reminders Care Plan OB Reminders No Open Scheduling, Background documented as of this encounter Visit Diagnoses Not on filedocumented in this encounter Additional Health Concerns Active Problems Noted Date Diagnosed Date OB Reminders 04/14/2024 documented as of this encounter Care Teams Tortilla Maker Relationship Specialty Start Date End Date Juaquin Rae DO [address] [place] [address] PCP - General Family Medicine 07/15/22 documented as of this encounter
--- OUTSIDE RECORDS SUMMARY | 2024-09-14 05:14 | XMS_ITS | Encounter Summary ---
Author Organization [facility] tem Address [id number] [address] [place] [address] Care Team Providers Care Steel Erecting Pusher Name Role Phone Unavailable Primary Care Provider Unavailabl e Encounter Details Date Type Department Care Team (Late st Contact Info) Description 08/04/2024 Orders Only Maternal- Medicine at [facility] [address] [place] [address] Ref Prov, [place] [address] Social History Tobacco Use Types Packs/Day Years [...]
--- OUTSIDE RECORDS SUMMARY | 2024-09-14 05:14 | XMS_ITS | Encounter Summary ---
Author Organization [facility] Address [address] [place] [address] Care Team Providers Care Police Lieutenant Patrol Name Role Phone Juaquin Rae Amira SORIA Primary Care Provider +1- [phone] Encounter Details Date Type Department Care Team (Late st Contact Info) Description 01/30/2024 Clinisync Result Encounter [facility] External Department Unsolicited Neisha Stapleton, DO [address] [place] [address] Social History Tobacco Use Types Packs/Day Years [...] EDT Office Visit [facility] [address] [facility] [place] [address] Neisha Stapleton DO [address] [place], [place] [address] documented as of this encounter Procedures Procedure Name Priority Date/Time Associated Diagnosis Comments US OB TRANSVAGINAL 01/30/2024 7: 28 AM EST documented in this encounter Results * US OB TRANSVAGINAL (01/30/2024 7:28 AM EST) Anatomical Region Laterality Modality Other 01/30/2024 7:28 AM EST Narrative 01/30/2024 7:31 AM EST [address] [address] Ultrasound Report Signed Patient: MICHAEL WELLER MR#: [id number] : 1985 Acct:[id number] Age/Sex: 38 / F ADM Date: 01/29/24 Loc: US Attending Dr: Neisha Stapleton D.O. Ordering Physician: Neisha Stapleton D.O. Date of Service: 01/29/24 Procedure(s): US OB transvaginal Accession Number(s): [id number] cc: Neisha Stapleton D.O.; Physician,Non-Staff Ramiro The [address] [address] Patient Name: MICHAEL WELLER MRN: [id number] date: 1985 Sex: F Assigned Patient Location: US Current Patient Location: Accession/Order Number: [id number] Exam Date: 01/29/2024 16:10 Report Date: 01/30/2024 [...] M.D. Signed By: 01/30/2431 DD/ 7 TD/TT: Direct Support Worker: Procedure Note Radiology, Radiologist, MD - 01/30/2024 [place] [address] Ultrasound Report Signed Patient: MICHAEL WELLER RMR#: [id number] : 1985Acct:[id number] Age/Sex: 38 / FADM Date: 01/29/24 Loc: US Attending Dr: Neisha Stapleton D.O. Ordering Physician: Neisha Stapleton D.O. Date of Service: 01/29/24 Procedure(s): US OB transvaginal Accession Number(s): [id number] cc: Neisha Stapleton D.O.; Physician,Non-Staff Ramiro The [place] [address] Patient Name: MICHAEL WELLER MRN: [id number] date: 1985 Sex: F Assigned Patient Location: US Current Patient Location: Accession/Order Number: [id number] Exam Date: 01/29/2024 16:10 Report Date: 01/30/2024 [...] Wolff M.D. Signed By:01/30/24730 DD/ 7 TD/TT: Direct Support Worker: us Neisha Daya DO [facility] Final Result documented in this encounter Visit Diagnoses Not on filedocumented in this encounter Care Teams Police Lieutenant Patrol Relationship Specialty Start Date End Date Juaquin Rae DO [address] [place] [address] PCP - General Family Medicine 07/15/22 documented as of this encounter
--- OUTSIDE RECORDS SUMMARY | 2024-09-14 05:14 | XMS_ITS | Encounter Summary ---
Author Organization [facility] Address [address] [place] [address] Care Team Providers Care Ct Technologist Name Role Phone Juaquin Rae Primary Care Provider +1- [phone] Encounter Details Date Type Department Care Team (Late st Contact Info) Description 2023 Orders Only [facility] OB [address] [place] [address] Susi Hurtado DC [address] [place] [address] Social History Tobacco Use Types Packs/Day Years [...] Visit [facility] OB [address] [place] [address] Matt Stapleton DO [address] [place], [place] [address] documented as of this encounter Procedures Procedure Name Priority Date/Time Associated Diagnosis Comments PAP SMEAR Routine 10/20/2023 12:00 AM EDT documented in this encounter Results * Pap Smear (10/20/2023 12:00 AM EDT) Swab Cervical swab / Unknown us Matt Stapleton DO LAB CYTOLOGY ORDERABLES Final Re sult EXTERNAL LAB documented in this encounter Visit Diagnoses Not on filedocumented in this encounter Care Teams Ct Technologist Relationship Specialty Start Date End Date Juaquin Rae DO [address] [place] [id number] PCP - General Family Medicine 07/15/22 documented as of this encounter
--- OUTSIDE RECORDS SUMMARY | 2024-09-14 05:14 | XMS_ITS | Clinical Summary ---
Author Organization [facility] Address [address] [place] [address] Care Team Providers Care Oracle Webcenter Consultant Name Role Phone Juaquin Rae DO [...] risk 3 09/01/2023 Data from: https://www.[email or web address].medicine.[email or web address]/. Last address used for calculation [address] [...] Vaccine (2023- season) 2023, 10/04/2020 Influenza Vaccine (#1) 2024 Insurance [facility] PPO Member Subscriber Plan / Payer (Ef fective 2020-Present) Name:Jonna Weller Relation to Subscriber:Self Name:Jonna Weller Payer ID:Not on file Type:PPO Address: [place] [phone] Care Teams Oracle Webcenter Consultant Relationship Specialty Start Date End Date Juaquin Rae DO [address] [facility] [address] [place] [address] PCP - General Family Medicine 06/10/16
--- OUTSIDE RECORDS SUMMARY | 2024-09-14 05:14 | XMS_ITS | Encounter Summary ---
Author Organization [facility] Address [address] [place] [address] Care Team Providers Care Sports Marketing Internship Name Role Phone Juaquin Rae Amira SORIA Primary Care Provider +1- [phone] Encounter Details Date Type Department Care Team (Late st Contact Info) Description 11/21/2023 Clinisync Result Encounter [facility] External Department Unsolicited Neisha Stapleton, DO [address] [place] [address] Social History Tobacco Use Types Packs/Day Years [...] EDT Office Visit [facility] [address] [facility] [place] [phone] Neisha Stapleton DO [address] [place], [place] [id number] documented as of this encounter Procedures Procedure Name Priority Date/Time Associated Diagnosis Comments US PELVIS W/ TRANSVAGINAL 11/21/2023 9:17 AM EDT documented in this encounter Results * US PELVIS W/ TRANSVAGINAL (11/21/2023 9:17 AM EDT) Anatomical Region Laterality Modality Other 11/21/2023 9:17 AM EDT Narrative 11/21/2023 9:20 [place] [address] Ultrasound Report Signed Patient: MICHAEL WELLER MR#: [id number] : 1985 Acct:[id number] Age/Sex: 38 / F ADM Date: 11/21/23 Loc: US Attending Dr: Neisha Stapleton D.O. Ordering Physician: Neisha Stapleton D.O. Date of Service: 11/21/23 Procedure(s): US pelvis w/ transvaginal Accession Number(s): [id number] cc: Neisha Stapleton D.O.; Physician,Non-Staff M.[place] [id number] Patient Name: MICHAEL WELLER MRN: [id number] date: 1985 Sex: F Assigned Patient Location: US Current Patient Location: US Accession/Order Number: [id number] Exam Date: 11/21/2023 08:14 Report Date: 11/21/2023 [...] M.D. Signed By: 11/21/23919 DD/ 6 TD/TT: Fertilizer Applicator: Procedure Note Radiology, Radiologist, MD - 11/21/2023 [place] [address] Ultrasound Report Signed Patient: MICHAEL WELLER RMR#: [id number] : 1985Acct:[id number] Age/Sex: 38 / FADM Date: 11/21/23 Loc: US Attending Dr: Neisha Stapleton D.O. Ordering Physician: Neisha Stapleton D.O. Date of Service: 11/21/23 Procedure(s): US pelvis w/ transvaginal Accession Number(s): [id number] cc: Neisha Stapleton D.O.; Physician,Non-Staff Ramiro [place] [id number] Patient Name: MICHAEL WELLER MRN: [id number] date: 1985 Sex: F Assigned Patient Location: US Current Patient Location: US Accession/Order Number: [id number] Exam Date: 11/21/2023 08:14 Report Date: 11/21/2023 [...] Wolff M.D. Signed By:11/21/23919 DD/ 6 TD/TT: Fertilizer Applicator: us Neisha Stapleton DO [facility] Final Result documented in this encounter Visit Diagnoses Not on filedocumented in this encounter Care Teams Sports Marketing Internship Relationship Specialty Start Date End Date Juaquin Rae DO [address] [place] [address] PCP - General Family Medicine 07/15/22 documented as of this encounter
--- OUTSIDE RECORDS SUMMARY | 2024-09-14 05:14 | XMS_ITS | Encounter Summary ---
Author Organization [facility] Address [address] [place] [address] Care Team Providers Care Kier Operator Name Role Phone Juaquin Rae DO Primary Care Provider +1- [phone] Encounter Details Date Type Department Care Team (Late Contact Info) Description 04/05/2024 Abstract [facility] [address] [place] [id number] Juaquin Rae, DO [address] [place] [address] Social History Tobacco Use Types Packs/Day Years [...] EDT Office Visit [facility] [address] [facility] [place] [address] Matt Stapleton, DO [address] [place] [address] documented as of this encounter Visit Diagnoses Not on filedocumented in this encounter Care Teams Kier Operator Relationship Specialty Start Date End Date Petznick, Juaquin C, DO [address] [facility] [address] [place] [phone] PCP - General Family Medicine 07/15/22 documented as of this encounter
--- OUTSIDE RECORDS SUMMARY | 2024-09-14 05:14 | XMS_ITS | Encounter Summary ---
Author Organization [facility] Address [address] [place] [address] Care Team Providers Care Criminalist Technician Name Role Phone KeenanJuaquin pittman Amira SORIA Primary Care Provider +1- [phone] Encounter Details Date Type Department Care Team (Late st Contact Info) Description 03/14/2024 Abstract [facility] [address] [place] [id number] Matt Stapleton DO [facility] [address] [place], [place] [address] Social History Tobacco Use Types Packs/Day Years [...] 10/26/2024 4:00 PM EDT Office Visit [facility] [address] [place] [address] Matt Stapleton DO [facility] [address] [place], [place] [phone] documented as of this encounter Visit Diagnoses Not on filedocumented in this encounter Care Teams Criminalist Technician Relationship Specialty Start Date End Date Juaquin Rae DO [address] [facility] [address] [place] [phone] PCP - General Family Medicine 07/15/22 documented as of this encounter
--- OUTSIDE RECORDS SUMMARY | 2024-09-14 05:14 | XMS_ITS | Encounter Summary ---
Author Organization [facility] Address [address] [place] [address] Care Team Providers Care Legal Manager Name Role Phone KeenanJuaquin pittman Amira SORIA Primary Care Provider +1- [phone] Encounter Details Date Type Department Care Team (Late st Contact Info) Description 03/11/2024 Abstract [facility] [address] [place] [phone] Matt Stapleton DO [facility] [address] [place], [place] [address] Social History Tobacco Use Types Packs/Day Years [...] 10/26/2024 4:00 PM EDT Office Visit [facility] [address] [place] [address] Matt Stapleton DO [facility] [address] [place], [place] [phone] documented as of this encounter Visit Diagnoses Not on filedocumented in this encounter Care Teams Legal Manager Relationship Specialty Start Date End Date Juaquin Rae DO [address] [facility] [address] [place] [phone] PCP - General Family Medicine 07/15/22 documented as of this encounter
--- OUTSIDE RECORDS SUMMARY | 2024-09-14 05:14 | XMS_ITS | Clinical Summary ---
Author Organization [facility] Address [address] [place] [address] Care Team Providers Care Mosaic Layer Name Role Phone Juaquin Rae Amira SORIA Primary Care Provider [phone] Allergies Active Allergy Reactions Criticality Noted Date [...] antepartum, gestational diabetes method of control unspecified ([facility]) Use as instructed 100 each 4 [...] FOR NAUSEA OR VOMITING 025 2024 Discontinued insulin NPH-insulin regular (NovoLIN) (70-30) 100 UNIT/ML [...] Encounters Date Type Department Care Team Description 09/08/2024 Clinisync Result Encounter [facility] External Department Unsolicited Neisha Stapleton DO 09/06/2024 9:30 AM EDT Routine [facility] OB [address] [place] [address] [place] [address] Neisha Stapleton DO Third trimester ([facility]); 36 weeks gestation of ([facility]); Excessive growth affecting management of , antepartum, single or unspecified fetus ([facility]); Insulin controlled gestational diabetes mellitus (GDM) in third trimester ([facility]); Antepartum multigravida of advanced maternal age ([facility]) 09/06/2024 Abstract [facility] OB [address] [place] [address] [place] [address] Neisha Stapleton, DO 09/06/2024 Bamboo flowsheet [facility] OB [address] [place] [address] [place] [address] Neisha Stapleton, DO 09/05/2024 Clinisync Result Encounter [facility] External Department Unsolicited Neisha Stapleton, DO 09/03/2024 Clinisync Result Encounter [facility] External Department Unsolicited Neisha Stapleton, DO 08/31/2024 11:20 AM EDT Routine [facility] OB [address] [place] [address] [place] [address] Neisha Stapleton, DO 35 weeks gestation of ([facility]); Third trimester ([facility]); Excessive growth affecting management of , antepartum, single or unspecified fetus ([facility]); Multigravida of advanced maternal age in third trimester ([facility]); Insulin controlled gestational diabetes mellitus (GDM) in third trimester ([facility]) 08/31/2024 Bamboo flowsheet [facility] [address] [place] [address] Neisha Stapleton, DO 08/25/2024 Clinisync Result Encounter [facility] External Department Unsolicited Neisha Stapleton, DO 08/19/2024 Clinisync Result Encounter [facility] External Department Unsolicited Neisha Stapleton, DO 08/17/2024 11:00 AM EDT Routine [facility] OB [address] [place] [address] [place] [address] Neisha Stapleton, DO Third trimester ([facility]); 33 weeks gestation of ([facility]) 08/17/2024 Bamboo flowsheet [facility] OB [address] [place] [address] [place] [address] Neisha Stapleton, DO 08/15/2024 Clinisync Result Encounter [facility] External Department Unsolicited Neisha Stapleton, DO 08/14/2024 Clinisync Result Encounter [facility] External Department Unsolicited Neisha Stapleton, DO 08/12/2024 Clinisync Result Encounter [facility] External Department Unsolicited Neisha Stapleton, DO 08/12/2024 Clinisync Result Encounter [facility] External Department Unsolicited Neisha Stapleton, DO 08/11/2024 Telephone [facility] [address] [facility] [place] [address] Maria Victoria Zelaya LPN 08/09/2024 3:00 PM EDT Ancillary Procedure [facility] OB [address] [place] [address] 28 weeks gestation of ([facility]); Multigravida of advanced maternal age in third trimester ([facility]) 08/06/2024 Clinisync Result Encounter [facility] External Department Unsolicited Neisha Stapleton, DO 08/02/2024 9:10 AM EDT Routine [facility] OB [address] [place] [address] Neisha Stapleton, DO 31 weeks gestation of ([facility]); Third trimester ([facility]); Gestational diabetes mellitus (GDM), antepartum, gestational diabetes method of control unspecified ([facility]) 08/02/2024 Abstract [facility] OB [address] [place] [address] Neisha Stapleton, DO 08/02/2024 Abstract [facility] OB [address] [place] [address] Neisha Stapleton, DO 08/02/2024 Bamboo flowsheet [facility] OB [address] [place] [address] Neisha Stapleton, DO 07/12/2024 11:10 AM EDT Routine [facility] [address] [place] [address] Neisha Stapleton DO Third trimester ([facility]); 28 weeks gestation of ([facility]); Multigravida of advanced maternal age in third trimester ([facility]); Gestational diabetes mellitus (GDM), antepartum, gestational diabetes method of control unspecified ([facility]); Elevated glucose tolerance test 07/12/2024 10:30 AM EDT Ancillary Procedure [facility] [address] [place] [address] Antepartum multigravida of advanced maternal age ([facility]) 07/01/2024 Results Follow-Up [facility] [address] [place] [address] Cathy Dick LPN 07/01/[address] [address] [place] [address] Cathy Dick LPN 06/30/2024 Clinisync Result Encounter [facility]OM[facility] External Department Unsolicited Neisha Stapleton DO 06/20/2024 9:40 AM EDT Routine [facility] [address] [place] [address] Neisha Stapleton DO Diabetes mellitus screening; 25 weeks gestation of ([facility]); Second trimester ([facility]); Antepartum multigravida of advanced maternal age ([facility]) 06/20/2024 Bamboo flowsheet [facility] [address] [place] [address] Neisha Stapleton DO from Last 3 Months Social History Tobacco [...] oz) 09/06/2024 9:48 AM E DT Height 165.1 cm (5' 5 ) 05/30/2021 12:00 PM EDT Body Mass Index 40.52 05/30/2021 12:00 PM EDT Plan of Treatment Upcoming Encounters Date Type Department Care Team (Late st Contact Info) Description 10/26/2024 4:00 PM EDT Office Visit [facility] [address] [facility] [place] [address] Neisha Stapleton, DO [address] [facility] [place] [address] Health Maintenance Due Date Last Done Comments Influenza Vaccine (#1) 2024 Cervical Cancer Screening 10/19/2028 HPV/Cotest 10/19/2028 10/17/2022, 08/27/2017 Pap Smear 10/19/2028 10/20/2023, 10/17/2022, 03/09 Goals Goal Patient Goal Type Associated Problems Recent Progress Patient-Stated? Author Reminders Care Plan OB Reminders No Open Scheduling, Background Procedures Procedure Name Priority Date/Time Associated Diagnosis Comments US OB BPP W NON-STRESS 09/08/2024 7:25 PM EDT POCT URINALYSIS DIPSTICK Routine 09/06/2024 9:52 AM EDT Third trimester ([facility]) US OB GROWTH 09/05/2024 8:20 AM EDT US OB BPP W NON-STRESS 09/03/2024 6:07 PM EDT POCT URINALYSIS DIPSTICK Routine 08/31/2024 11:49 AM EDT 35 weeks gestation of ([facility]) Third trimester ([facility]) US OB BPP W NON-STRESS 08/25/2024 6:15 PM EDT US OB BPP W NON-STRESS 08/19/2024 6:46 PM EDT [facility] UA (CLEAN/CATCH) SPECIAL CERTIFICATE DICTATOR/MICRO IF IND. Routine 08/15/2024 4:25 PM EDT [...] 3:32 PM EDT 28 weeks gestation of ([facility]) Multigravida of advanced maternal age in third trimester ([facility]) US OB BPP W NON-STRESS 08/06/2024 12:12 PM EDT POCT URINALYSIS DIPSTICK Routine 08/02/2024 9:27 AM EDT 31 weeks gestation of ([facility]) Third trimester ([facility]) POCT URINALYSIS DIPSTICK Routine 07/12/2024 11:33 AM EDT Third trimester ([facility]) US OB FOLLOW UP TRANSABDOMINAL APPROACH Routine 07/12/2024 10:42 AM EDT Antepartum multigravida of advanced maternal age ([facility]) GLUCOSE 1 HOUR Routine 06/30/2024 10:26 AM EDT ALL CBC WITH AUTO DIFF Routine 10:26 AM EDT POCT URINALYSIS DIPSTICK Routine 06/20/2024 10:30 AM EDT 25 weeks gestation of ([facility]) PAP SMEAR Routine 10/20/2023 12:00 AM EDT THINPREP PAP AND HPV MRNA E6/E7 W/RFL HPV 16,18/45 Routine 10/17/2022 8:40 AM EDT Well woman exam with routine gynecological exam from Last 3 Months or Most Recently Relevant to Health Maintenance Results * US OB BPP W NON-STRESS (09/08/2024 7:25 PM EDT) Only the most recent of6 resultswithin the time period is included. Anatomical Region Laterality Modality Other 09/08/2024 7:25 PM EDT Narrative 09/08/2024 7:27 [place] [address] Ultrasound Report Signed Patient: MICHAEL WELLER MR#: [id number] : 1985 Acct:[id number] Age/Sex: 38 / F ADM Date: 09/08/24 Loc: US Attending Dr: Neisha Stapleton D.O. Ordering Physician: Neisha Stapleton D.O. Date of Service: 09/08/24 Procedure(s): US OB BPP w non-stress Accession Number(s): [id number] cc: Daya,Neisha D.O.; Physician,Non-Staff MRajeev The [address] [address] Patient Name: MICHAEL WELLER MRN: [facility]:[id number] date: 1985 Sex: F Assigned Patient Location: [facility] Current Patient Location: Accession/Order Number: [id number] Exam Date: 09/08/2024 19:24 Report Date: 09/08/2024 19:25 At the request of: NEISHA STAPLETON DO Procedure: US OB BPP w non-stress Ultrasound biophysical profile HISTORY: Gestational diabetes Adequate breathing movement, gross body movement, tone and amniotic fluid volume for total score of 8 out of 8. The amniotic fluid index is 17.9cm within normal limits. The heart rate 152 bpm. US/US OB BPP w non-stress IMPRESSION: Adequate ultrasound biophysical profile Impression dictated by: Roddy Villegas M.D. 09/08/2024 7:25 PM [facility]ictation [facility] Electronically authenticated by: [id number] Y Date: 09/08/2024 19:25 Dictated By: Roddy Villegas D.O. Signed By: 09/08/241926 DD/ 24 TD/TT: Instrument Repair Supervisor: Procedure Note Radiology, Radiologist, MD - 09/08/2024 [place] [address] Ultrasound Report Signed Patient: MICHAEL WELLER RMR#: [id number] : 1985Acct:[id number] Age/Sex: 38 / FADM Date: 09/08/24 Loc: US Attending Dr: Neisha Stapleton D.O. Ordering Physician: Neisha Stapleton D.O. Date of Service: 09/08/24 Procedure(s): US OB BPP w non-stress Accession Number(s): [id number] cc: Neisha Stapleton D.O.; Physician,Non-Staff Ramiro The [address] [address] Patient Name: MICHAEL WELLER MRN: [id number] date: 1985 Sex: F Assigned Patient Location: [facility] Current Patient Location: Accession/Order Number: [id number] Exam Date: 09/08/2024 19:24 Report Date: 09/08/2024 19:25 At the request of: NEISHA STAPLETON DO Procedure: US OB BPP w non-stress Ultrasound biophysical profile HISTORY: Gestational diabetes Adequate breathing movement, gross body movement, tone and amniotic fluid volume for total score of 8 out of 8. The amniotic fluidindex is 17.9cm within normal limits. The heart rate 152 bpm. US/US OB BPP w non-stress IMPRESSION: Adequate ultrasound biophysical profile Impression dictated by: Roddy Villegas M.D. 09/08/2024 7:25 PM Dictation Location: [place] [address] Electronically authenticated by: [id number] Y Date: 9:25 Dictated By: Roddy Villegas D.O. Signed By:09/08/241926 DD/ 24 TD/TT: Instrument Repair Supervisor: us Neisha Stapleton DO [facility] Final Result * (ABNORMAL) POCT urinalysis dipstick manually resulted (09/06/2024 9:52 AM EDT) Only the most recent of5 resultswithin the time period is included. Color, UA Yellow Clarity, UA Clear Glucose, UA Negative Negative - 1999(110) ++++ mg/dL Bilirubin, UA Negative Negative - 4(70) +++ mg/dL Ketones, UA Negative Negative - 160(16) ++++ mg/dL Spec Grav, UA 1.025 1 - 1.03 Blood, UA Negative Negative - 50 Shaun/mcL pH, UA 6.0 5 - 9 Protein, UA Negative Negative - 1999(20) ++++ mg/dL Urobilinogen, UA 0.2 0.2 - 12 mg/dL Leukocytes, UA Positive Negative - 500+++ Denys/mcL Comment:small Nitrite, UA Negative Negative - Positive Urine 09/06/2024 9:52 AM EDT us Neisha Stapleton DO POINT OF CARE TEST ENTER/EDIT OR DERABLES Final Result * US OB GROWTH (09/05/2024 8:20 AM EDT) Anatomical Region Laterality Modality Other 09/05/2024 8:20 AM EDT Narrative 09/05/2024 8:22 [place] [address] Ultrasound Report Signed Patient: MICHAEL WELLER MR#: [id number] : 1985 Acct:[id number] Age/Sex: 38 / F ADM Date: 09/02/24 Loc: US Attending Dr: Neisha Stapleton D.O. Ordering Physician: Neisha Stapleton D.O. Date of Service: 09/02/24 Procedure(s): US OB growth Accession Number(s): [id number] cc: Neisha Stapleton D.O.; Physician,Non-Staff M.DJonathan The [place] [address] Patient Name: MICHAEL WELLER MRN: [id number] date: 1985 Sex: F Assigned Patient Location: Current Patient Location: Accession/Order Number: [id number] Exam Date: 09/05/2024 08:14 Report Date: 09/05/2024 [...] Holden M.D. 09/05/2024 8:20 AM Dictation Location: [place] [address] Electronically authenticated by: [id number] Y Date: 09/05/2024 08:20 Dictated By: Bisi Holden M.D. Signed By: 09/05/24821 DD/ 9 TD/TT: Instrument Repair Supervisor: Procedure Note Radiology, Radiologist, MD - 09/05/2024 [place] [address] Ultrasound Report Signed Patient: MICHAEL WELLER RMR#: [id number] : 1985Acct:[id number] Age/Sex: 38 / FADM Date: 09/02/24 Loc: US Attending Dr: Neisha Stapleton D.O. Ordering Physician: Neisha Stapleton D.O. Date of Service: 09/02/24 Procedure(s): US OB growth Accession Number(s): [id number] cc: Neisha Stapleton D.O.; Physician,Non-Staff Ramiro The [place] [address] Patient Name: MICHAEL WELLER MRN: [id number] date: 1985 Sex: F Assigned Patient Location: US Current Patient Location: Accession/Order Number: [id number] Exam Date: 09/05/2024 08:14 Report Date: 09/05/2024 [...] Holden M.D. 09/05/2024 8:20 AM Dictation Location: [place] [address] Electronically authenticated by: [id number] Y Date: 508:20 Dictated By: Bisi Holden M.D. Signed By:09/05/24821 DD/ 9 TD/TT: Instrument Repair Supervisor: us Neisha Daya DO [facility] Final Result * (ABNORMAL) [facility] UA (CLEAN/CATCH) SPECIAL CERTIFICATE DICTATOR/MICRO IF IND. (08/15/2024 4:25 PM EDT) COLOR [...] Narrative [facility] - 08/15/2024 4:45 PM EDT Neisha Daya DO [facility] Final Result Performing Organization Address [facility] Co de Phone Number [facility] * (ABNORMAL) [facility] TOTAL PROTEIN 24 HOUR URINE (08/14/2024 7:54 AM EDT) TOTAL PROTEIN URINE RANDOM 20.8(H) <=11.9 mg/dL [facility] TOTAL VOLUME 24 HOUR URINE 1,550 mL/24hr TBH TBH TOTAL PROTEIN 24 HOUR URINE 322.4(H) <=149.1 mg/24hr [facility] 08/14/2024 7:54 AM EDT 08/14/2024 1:02 PM EDT Narrative [facility] - 08/14/2024 1:39 PM EDT START TIME:0754 END TIME:0745 TOTAL VOLUME:1550 Neisha Daya DO [facility] Final Result Performing Organization Address [facility] de Phone Number [facility] TB * (ABNORMAL) [facility] CREATININE (08/12/2024 3:40 PM EDT) CREATININE 0.40(L) 0.55 - 1.02 mg/dL [facility]H TBH EGFR-AF MONGOLIAN >60 >=60 mL/min/1.7 3m 2 TBH TBH EGFR-NON AF MONGOLIAN >60 >=60 mL/min/1.7 3m 2 [facility] 08/12/2024 3:40 PM EDT 08/12/2024 3:42 PM EDT Narrative CLINISYNC - 08/12/2024 4:47 PM EDT Neisha Daya DO [facility] Final Result Performing Organization Address [facility] Co de Phone Number [facility] * SRMCOH PROTHROMBIN TIME INR W/O COUM [...] DO CLINISY[facility] Final Result Performing Organization Address [facility] Co de Phone Number [facility] * (ABNORMAL) [facility] AST (08/12/2024 3:40 PM EDT) ASPARTATE AMINO TRANSFERASE 13(L) 15 - 37 U/L TB 08/12/2024 3:40 PM EDT 08/12/2024 3:42 PM EDT Narrative CLINISYNC - 08/12/2024 4:47 PM EDT Neisha Gambinoo DO [facility] Final Result Performing Organization Address [facility]/ZIP Co de Phone Number [facility] * [facility] APTT (08/12/2024 3:40 PM EDT) PARTIAL THROMBOPLASTIN TIME 27.1 22.3 - 36.2 sec TB 08/12/2024 3:40 PM EDT 08/12/2024 3:42 PM EDT Narrative [facility]IN[facility] - 08/12/2024 4:20 PM EDT Neisha Daya DO [facility] Final Result Performing Organization Address [facility]/ZIP Co de Phone Number [facility] * ALL URIC ACID (08/12/2024 3:40 PM EDT) Pathologist [facility] URIC ACID 2.8 2.6 - 6.0 mg/dL TB 08/12/2024 3:40 PM EDT 08/12/2024 3:42 PM EDT Narrative CLINISYNC - 08/12/2024 4:47 PM EDT Neisha Daya DO [facility] Final Result Performing Organization Address City/[facility]/ZIP Co de Phone Number [facility] * ALL LDH (08/12/2024 3:40 PM EDT) Pathologist [facility] LACTATE DEHYDROGENASE 131 81 - 234 U/L TB 08/12/2024 3:40 PM EDT 08/12/2024 3:42 PM EDT Narrative CLINISYNC - 08/12/2024 4:47 PM EDT [facility] Daya DO CLIN[facility]NC Final Result Performing Organization Address [facility] de Phone Number [facility] * (ABNORMAL) ALL CBC WITH AUTO DIFF (08/12/2024 3:40 PM EDT) Only the most recent of2 resultswithin the time period is included. Pathologist [facility] TB WBC 8.5 4.0 - 11.0 10 3/uL TBH TBH RBC 3.91(L) 4.20 - 5.40 10 6/uL TBH TBH HGB 10.6(L) 12.0 - 16.0 g/dL TBH TB HCT 32.6(L) 36.0 - 48.0 % TBH [...] DO CLINISY[facility] Final Result Performing Organization Address City/[facility]/ZIP Co de Phone Number [facility] * ALL BUN (08/12/2024 3:40 PM EDT) Pathologist [facility] BLOOD UREA NITROGEN 10.0 7.0 - 18.0 mg/dL TBH 08/12/2024 3:40 PM EDT 08/12/2024 3:42 PM EDT Narrative CLIN[facility]NC - 08/12/2024 4:47 PM EDT us Neisha Daya DO [facility] Final Result Performing Organization Address City/[facility] Co de Phone Number [facility] * US OB follow up transabdominal approach [...] II, MD, PHD at 11-Aug-2024 08:51:27 AM [facility] Procedure Note Bela Maria MD - [...] signed by BELA MARIA II, MD, PHD [id number] 08:51:27 AM [facility] us Neisha Daya DO IMG OB US PROCEDURES Final Resul t * (ABNORMAL) GLUCOSE 1 HOUR (06/30/2024 10:26 AM EDT) GLUCOSE 1 HOUR 160(H) <130 mg/dL TBH 06/30/2024 10:2 6 AM EDT 06/30/2024 10:30 AM EDT Narrative [facility] - 06/30/2024 11:03 AM EDT us Neisha Daya DO LAB BLOOD ORDERABLES Final Resul t Performing Organization Address [facility] Co de Phone Number [facility] * Pap Smear (10/20/2023 12:00 AM EDT) Swab Cervical swab / Unknown us Neisha Daya DO LAB CYTOLOGY ORDERABLES Final Re sult EXTERNAL LAB * THINPREP PAP AND HPV MRNA E6/E7 W/RFL HPV 16,18/45 (10/17/2022 8:40 AM EDT) us Merayr [facility] LAB BLOOD ORDERABLES Final Resul t Performing Organization Address City/[facility]/ZIP Co de Phone Number EXTERNAL LAB from Last 3 Months or Most Recently Relevant to Health Maintenance Additional Health Concerns Active Problems Noted Date Diagnosed Date OB Reminders 04/14/2024 Insurance [employer] Care Teams Mosaic Layer Relationship Specialty Start Date End Date Juaquin Rae DO [address] [place] [address] PCP - General Family Medicine 07/15/22
--- OUTSIDE RECORDS SUMMARY | 2024-09-14 05:14 | XMS_ITS | Clinical Summary ---
Author Organization [employer] tem Address [id number] [address] [place] [address] Care Team Providers Care Pictures Editor Name Role Phone Unavailable Primary Care Provider [...] with two units. 15 mL 3 08/31/19 Active blood sugar diagnostic (glucose blood) stripIndications: Insulin controlled gestational diabetes mellitus (GDM) in third trimester Blood glucose strips per insurance preference. Use 1 strip 4 to 5 times per day. 100 strip 09/13/19 Active blood-glucose meter miscIndications:I nsulin controlled gestational diabetes mellitus (GDM) in third trimester Meter per insurance preference. Use to test blood sugars 4 to 5 times per day. 1 each 09/13/19 Active lancets 33 gauge miscIndications:I nsulin controlled gestational diabetes mellitus (GDM) in third trimester Lancets per insurance preference. Use one lancet 4 to 5 times per day. 100 each 09/13/19 Active insulin glargine (LANTUS SOLOSTAR U-100 INSULIN) 100 unit/mL (3 mL) insulin penIndications:In sulin controlled gestational diabetes mellitus (GDM) in third trimester Inject 10 units, subq, every evening. Prime with 2 units before each injection. 15 mL 2 08/10/19 25 025 Discontinued insulin glargine (LANTUS SOLOSTAR U-100 INSULIN) 100 unit/mL (3 mL) insulin penIndications:In sulin controlled gestational diabetes mellitus (GDM) in third trimester Inject 14 units, subq, every evening. Prime with 2 units before each injection. 08/31/19 25 025 Discontinued Active Problems Problem Noted Date Diagnosed Date Gestational diabetes requiring insulin Estimated Date of Delivery Comme nts Yes 10/01/2024 Based on Ultraso und Encounters Date Type Department Care Team Description 09/12/2024 Orders Only Maternal- Medicine at [facility] [address] [place] [phone] Shira Ospina LD Insulin controlled gestational diabetes mellitus (GDM) in third trimester (Primary Dx) 09/02/2024 Telephone Maternal- Medicine at [facility] [address] [place] [address] Shira Ospina LD 08/30/2024 Telephone Maternal- Medicine at [facility] [address] [place] [address] Sherin Zaragoza RN 08/30/2024 Orders Only Maternal- Medicine at [facility] [address] [place] [address] Lucretia Art, PA-C Insulin controlled gestational diabetes mellitus (GDM) in third trimester 08/30/2024 Orders Only Maternal- Medicine at [facility] [address] [place] [address] Lucretia Art, PA-C Insulin controlled gestational diabetes mellitus (GDM) in third trimester 08/17/2024 Telephone Maternal- Medicine at [facility] [address] [place] [address] Charlene Nguyen CMA 08/15/2024 1:30 PM EDT Telemedicine Maternal- Medicine at [facility] [address] [place] [address] Lucretia Art, PA-C Gestational diabetes requiring insulin (Primary Dx) 08/15/2024 Travel 08/09/2024 10:30 AM EDT Support Visit Maternal- Medicine at [facility] [address] [place] [address] Noelle Johnston RN Karl, Deborah, IVONNE Gestational diabetes mellitus (GDM) in third trimester, gestational diabetes method of control unspecified 08/09/2024 Telephone Maternal- Medicine at [facility] [address] [place] [address] Noelle Johnston RN 08/09/2024 Orders Only Maternal- Medicine at [facility] [address] [place] [address] Noelle Johnston, RN Insulin controlled gestational diabetes mellitus (GDM) in third trimester (Primary Dx) 08/09/2024 Orders Only Maternal- Medicine at [facility] [address] [place] [address] Bárbara Canas, FLOORING SALES MANAGER-CNM Insulin controlled gestational diabetes mellitus (GDM) in third trimester (Primary Dx) 08/09/2024 Travel 08/04/2024 Orders Only Maternal- Medicine at [place] [address] [place] [address] Ref Prov, Not In System 08/03/2024 Orders Only Maternal- Medicine at [place] [address] [place] [address] Ref Prov, Not In System 08/03/2024 Abstract Maternal- Medicine at [address] [address] External, Scanning Provider from Last 3 Months [...] ORDERABLES Melanie l Result Performing Organization Address City/[facility]/ZIP Co de Phone Number MANUALLY TRANSCRIBED RESULTS * Platelet count (06/30/2024) Platelets 152 MANUALLY TRANSCRIBED RESULTS Blood Venous blood / Unknown us Not In System Ref Prov LAB BLOOD ORDERABLES Melanie l Result Performing Organization Address [facility]UST Co de Phone Number MANUALLY TRANSCRIBED RESULTS from Last 3 Months Insurance [employer]
--- OUTSIDE RECORDS SUMMARY | 2024-09-14 05:14 | XMS_ITS | Encounter Summary ---
Author Organization [facility] tem Address [id number] [address] [place] [address] Care Team Providers Care Stewardess Supervisor Name Role Phone Unavailable Primary Care Provider Unavailabl e Encounter Details Date Type Department Care Team (Late st Contact Info) Description 08/03/2024 Orders Only Maternal- Medicine at [facility] [address] [place] [address] Ref Prov, [place] [address] Social History Tobacco Use Types Packs/Day Years [...]
--- OUTSIDE RECORDS SUMMARY | 2024-09-14 05:14 | XMS_ITS | Encounter Summary ---
Author Organization [facility] Address [address] [place] [address] Care Team Providers Care Radio Electrician Name Role Phone KeenanJuaquin pittman Amira SORIA Primary Care Provider +1- [phone] Encounter Details Date Type Department Care Team (Late st Contact Info) Description 02/16/2024 Abstract [facility] OB [address] [place] [phone] Matt Stapleton DO [address] [place], [place] [address] Social History Tobacco Use Types Packs/Day Years [...] 10/26/2024 4:00 PM EDT Office Visit [facility] OB [address] [place] [address] Matt Stapleton DO [facility] [address] [place], [place] [phone] documented as of this encounter Visit Diagnoses Not on filedocumented in this encounter Care Teams Radio Electrician Relationship Specialty Start Date End Date Juaquin Rae DO [address] [facility] [address] [place] [phone] PCP - General Family Medicine 07/15/22 documented as of this encounter
--- OUTSIDE RECORDS SUMMARY | 2024-09-14 05:14 | XMS_ITS | Encounter Summary ---
Author Organization [facility] Address [address] [place] [address] Care Team Providers Care Architectural Job Captain Name Role Phone Juaquin Rae DO Primary Care Provid er Source Comments In the event this information is protected by the Federal Confidentiality of Alcohol and Drug AbusePatient Records regulations: The Federal rules restrict any use of the information to criminally investigate or prosecute any alcohol or drug abuse patient.[facility] Encounter Details Date Type Department Care Team (Late st Contact Info) Description 02/08/2018 Patient Msg Dermatology [address] [place] [address] Provider, Ccf Appointment tomorrow Social [...] on filedocumented in this encounter Care Teams Architectural Job Captain Relationship Specialty Start Date End Date Juaquin Rae DO [address] [facility] [address] [place] [address] PCP - General Family Medicine 06/10/16 documented as of this encounter
--- OUTSIDE RECORDS SUMMARY | 2024-09-14 05:14 | XMS_ITS | Encounter Summary ---
Author Organization [facility] Address [address] [place] [address] Care Team Providers Care Windows Systems Admin Name Role Phone Juaquin Rae DO [...] Description 10/01/2017 Patient Msg Internal Medicine [facility] [place] [address] Renee Sawyer MD [address] [place] [address] RE: Appointment Cancellation Request Social [...] on filedocumented in this encounter Care Teams Windows Systems Admin Relationship Specialty Start Date End Date Juaquin Rae DO [address] [facility] [address] [place] [address] PCP - General Family Medicine 06/10/16 documented as of this encounter
--- OUTSIDE RECORDS SUMMARY | 2024-09-14 05:14 | XMS_ITS | Encounter Summary ---
Author Organization [facility] Address [address] [place] [address] Care Team Providers Care Window Trimmer Name Role Phone Juaquin Rae Amira SORIA Primary Care Provider +1- [phone] Encounter Details Date Type Department Care Team (Late st Contact Info) Description 08/02/2024 Abstract [facility] OB [address] [facility] [place] [phone] Matt Stapleton DO [address] [place], [place] [address] Social History Tobacco Use Types Packs/Day Years [...] 10/26/2024 4:00 PM EDT Office Visit [facility] [address] [place] [address] Matt Stapleton DO [address] [place], [place] [phone] documented as of this encounter Goals Goal Patient Goal Type Associated Problems Recent Progress Patient-Stated? Author Reminders Care Plan OB Reminders No Open Scheduling, Background documented as of this encounter Visit Diagnoses Not on filedocumented in this encounter Additional Health Concerns Active Problems Noted Date Diagnosed Date OB Reminders 04/14/2024 documented as of this encounter Care Teams Window Trimmer Relationship Specialty Start Date End Date Juaquin Rae DO [address] [place] [address] [place] [address] PCP - General Family Medicine 07/15/22 documented as of this encounter
--- OUTSIDE RECORDS SUMMARY | 2024-09-14 05:14 | XMS_ITS | Encounter Summary ---
Author Organization [facility] Address [address] [place] [address] Care Team Providers Care Cnc Operator Programmer Name Role Phone KeenanJuaquin pittman Amira SORIA Primary Care Provider +1- [phone] Encounter Details Date Type Department Care Team (Late st Contact Info) Description 07/01/2024 Results Follow-Up [facility] OB [address] [facility] [place] [phone] Cathy Dick LPN [address] [place] [address] Social History Tobacco Use Types [...] BCP OB [address] [place] [address] Matt Stapleton, DO [address] [facility] [place] [address] documented as of this encounter Goals Goal Patient Goal Type Associated Problems Recent Progress Patient-Stated? Author Reminders Care Plan OB Reminders No Open Scheduling, Background documented as of this encounter Visit Diagnoses Not on filedocumented in this encounter Additional Health Concerns Active Problems Noted Date Diagnosed Date OB Reminders 04/14/2024 documented as of this encounter Care Teams Cnc Operator Programmer Relationship Specialty Start Date End Date Juaquin Rae DO [address] [facility] [address] [place] [address] PCP - General Family Medicine 07/15/22 documented as of this encounter
--- OUTSIDE RECORDS SUMMARY | 2024-09-14 05:14 | XMS_ITS | Encounter Summary ---
Author Organization [facility] Address [address] [place] [address] Care Team Providers Care Twenty One Dealer Name Role Phone Juaquin Rae Amira SORIA Primary Care Provider +1- [phone] Encounter Details Date Type Department Care Team (Late st Contact Info) Description 02/09/2024 Clinisync Result Encounter [facility] External Department Unsolicited Neisha Stapleton, DO [address] [place] [address] Social History Tobacco Use Types Packs/Day Years [...] EDT Office Visit [facility] OB [address] [facility] [place] [address] Neisha Stapleton DO [address] [place], [place] [phone] documented as of this encounter Procedures Procedure Name Priority Date/Time Associated Diagnosis Comments US OB TRANSVAGINAL 02/09/2024 10 :09 AM EST documented in this encounter Results * US OB TRANSVAGINAL (02/09/2024 10:09 AM EST) Anatomical Region Laterality Modality Other 02/09/2024 10:0 9 AM EST Narrative 02/09/2024 10:12 AM EST [address] [address] Ultrasound Report Signed Patient: MICHAEL WELLER MR#: [id number] : 1985 Acct:[id number] Age/Sex: 38 / F ADM Date: 02/09/24 Loc: [facility] Attending Dr: Neisha Stapleton D.O. Ordering Physician: Neisha Stapleton D.O. Date of Service: 02/09/24 Procedure(s): US OB transvaginal Accession Number(s): [id number] cc: Neisha Stapleton D.O.; Physician,Non-Staff Ramiro The [address] [address] Patient Name: MICHAEL WELLER MRN: [id number] date: 1985 Sex: F Assigned Patient Location: [facility] Current Patient Location: [facility] Accession/Order Number: [id number] Exam Date: 02/09/2024 09:06 Report Date: 02/09/2024 [...] Signed By: 02/09/24 1012 DD/ 1009 TD/TT: Internet Marketing Consultant: Procedure Note Radiology, Radiologist, MD - 02/09/2024 The [place] [id number] Ultrasound Report Signed Patient: MICHAEL WELLER RMR#: [id number] : 1985Acct:[id number] Age/Sex: 38 / FADM Date: 02/09/24 Loc: [facility] Attending Dr: Neisha Stapleton D.O. Ordering Physician: Neisha Stapleton D.O. Date of Service: 02/09/24 Procedure(s): US OB transvaginal Accession Number(s): [id number] cc: Neisha Stapleton D.O.; Physician,Non-Staff Ramiro The [place] [id number] Patient Name: MICHAEL WELLER MRN: [id number] date: 1985 Sex: F Assigned Patient Location: [facility] Current Patient Location: [facility] Accession/Order Number: [id number] Exam Date: 02/09/2024 09:06 Report Date: 02/09/2024 [...] M.D. Signed By:02/09/24 1012 DD/ 1009 TD/TT: Internet Marketing Consultant: us Neisha Stapleton DO [facility] Final Result documented in this encounter Visit Diagnoses Not on filedocumented in this encounter Care Teams Twenty One Dealer Relationship Specialty Start Date End Date Juaquin Rae DO [address] [place] [address] PCP - General Family Medicine 07/15/22 documented as of this encounter
--- OUTSIDE RECORDS SUMMARY | 2024-09-14 05:15 | XMS_ITS | Encounter Summary ---
Author Organization [facility] Address [address] [place] [address] Care Team Providers Care Security Guard Dispatcher Name Role Phone Juaquin Rae DO Primary Care Provid er Source Comments In the event this information is protected by the Federal Confidentiality of Alcohol and Drug AbusePatient Records regulations: The Federal rules restrict any use of the information to criminally investigate or prosecute any alcohol or drug abuse patient.[facility] Encounter Details Date Type Department Care Team (Late st Contact Info) Description 12/08/2022 Patient Msg Dermatology [place] [address] [place] [address] Roula Hodge APRN.SHEAR TENDER [address] [place] [address] Appointment Request Social History Tobacco [...] N ot on file 03/28/2022 Data from: https://www.neighborhoodatlas.medicine.[facility].edu/. Last address used for calculation Felix [...] on filedocumented in this encounter Care Teams Security Guard Dispatcher Relationship Specialty Start Date End Date Juaquin Rae DO [address] [facility] [address] [place] [phone] PCP - General Family Medicine 06/10/16 documented as of this encounter
--- OUTSIDE RECORDS SUMMARY | 2024-09-14 05:15 | XMS_ITS | Encounter Summary ---
Author Organization [facility] Address [address] [place] [address] Care Team Providers Care Milk Tester Name Role Phone Juaquin Rae DO Primary Care Provid er Source Comments In the event this information is protected by the Federal Confidentiality of Alcohol and Drug AbusePatient Records regulations: The Federal rules restrict any use of the information to criminally investigate or prosecute any alcohol or drug abuse patient.[facility] Encounter Details Date Type Department Care Team (Late st Contact Info) Description 06/02/2020 Patient Msg Dermatology [place] [address] [place] [address] Roula Hodge, WHEEL OF FORTUNE DEALER.STATISTICAL MACHINE MECHANIC [address] [place] [address] RE: Request an Appointment Social [...] ot on file 02/13/2020 Data from: https://www.neighborhoodatlas.medicine.[facility].edu/. Last address used for calculation Not [...] on filedocumented in this encounter Care Teams Milk Tester Relationship Specialty Start Date End Date Juaquin Rae DO [address] [place] [address] [place] [address] PCP - General Family Medicine 06/10/16 documented as of this encounter
--- OUTSIDE RECORDS SUMMARY | 2024-09-14 05:15 | XMS_ITS | Encounter Summary ---
Author Organization [facility] Address [address] [place] [address] Phone Care Team Providers Care Cisco Network Architect Name Role Phone Rafaela Garrido APRN-MOTOR VEHICLE DISPATCHER Primary Care Provider Unavailable Trever Lee MD Unavailable Gina Man DO Unavailable Encounter Details Date Type Department Care Team (Late st Contact Info) Description 10/09/2022 Patient Risk Score [facility] [address] [facility] [address] [place] [address] Social History Tobacco Use Types Packs/Day Years [...] on filedocumented in this encounter Care Teams Cisco Network Architect Relationship Specialty Start Date End Date Rafaela Garrido APRN-CNP PCP - General 07/06/18 10/28/22 [place] [address] [facility] [address] [place] [address] PCP - MMO ACO PCP 03/09/23 10/07/23 Trever Lee MD [address] [facility], [address] [place] [address] Consulting Physician Neurology 02/19/23 documented as of this encounter
--- OUTSIDE RECORDS SUMMARY | 2024-09-14 05:15 | XMS_ITS | Encounter Summary ---
Author Organization [facility] tem Address [id number] [address] [place] [address] Care Team Providers Care Truck Rental Manager Name Role Phone Unavailable Primary Care Provider Unavailabl e Encounter Details Date Type Department Care Team (Late st Contact Info) Description 09/02/2024 Telephone Maternal- Medicine at [facility] [address] [facility] [place] [address] Shira Ospina LD Social History [...] to patient to confirm that she received [employer]'s voicemail from 08/30/24 that detailedher insulin changes for this week. Had to leave a voicemail this time as well. Will also send a [employer] message re-iterating the contents of [employer]'s message. documented in this encounter Plan of Treatment Not on file documented as of this encounter Visit Diagnoses Not on filedocumented in this encounter
--- OUTSIDE RECORDS SUMMARY | 2024-09-14 05:15 | XMS_ITS | Encounter Summary ---
Author Organization [facility] Address [address] [place] [address] Care Team Providers Care Information Security Analyst Name Role Phone Juaquin Rae DO Primary Care Provid er Source Comments In the event this information is protected by the Federal Confidentiality of Alcohol and Drug AbusePatient Records regulations: The Federal rules restrict any use of the information to criminally investigate or prosecute any alcohol or drug abuse patient.[facility] Encounter Details Date Type Department Care Team (Late st Contact Info) Description 04/20/2024 Patient Msg Dermatology [place] [address] [place] [address] Roula Hodge APRN.HEAD OF MUSIC [address] [place] [address] Appointment Request Social History Tobacco [...] risk 3 09/01/2023 Data from: https://www.neighborhoodatlas.medicine.[facility].edu/. Last address used for calculation [address] [...] on filedocumented in this encounter Care Teams Information Security Analyst Relationship Specialty Start Date End Date Juaquin Rae DO [address] [place] [address] [place] [address] PCP - General Family Medicine 06/10/16 documented as of this encounter
--- OUTSIDE RECORDS SUMMARY | 2024-09-14 05:15 | XMS_ITS | Encounter Summary ---
Author Organization [facility] Address [address] [place] [address] Care Team Providers Care Roof Tiler Name Role Phone Juaquin Rae Amira SORIA Primary Care Provider +1- [phone] Encounter Details Date Type Department Care Team (Late st Contact Info) Description 09/05/2024 Clinisync Result Encounter [facility] External Department Unsolicited Neisha Stapleton, [address] [place] [address] Social History Tobacco Use Types Packs/Day Years [...] Department Care Team (Late Contact Info) Description 10/26/2024 4:00 PM EDT Office Visit [facility] OB [address] [facility] [place] [address] Neisha Stapleton DO [facility] [address] [place], [place] [phone] documented as of this encounter Goals Goal [...] AM EDT Narrative 09/05/2024 8:22 [place] [address] Ultrasound Report Signed Patient: MICHAEL ROQUE MR#: [id number] : 1985 Acct:[id number] Age/Sex: 38 / F ADM Date: 09/02/24 Loc: US Attending Dr: Neisha Stapleton D.O. Ordering Physician: Neisha Stapleton D.O. Date of Service: 09/02/24 Procedure(s): US OB growth Accession Number(s): [id number] cc: Neisha Stapleton D.O.; Physician,Non-Staff M.DJonathan [address] [address] Patient Name: MICHAEL ORQUE MRN: [id number] date: 1985 Sex: F Assigned Patient Location: Current Patient Location: Accession/Order Number: [id number] Exam Date: 09/05/2024 08:14 Report Date: 09/05/2024 [...] Holden M.D. 09/05/2024 8:20 AM Dictation Location: [place] [address] Electronically authenticated by: [id number] Y Date: 09/05/2024 08:20 Dictated By: Bisi Holden M.D. Signed By: 09/05/24821 DD/ 9 TD/TT: Senior Mechanical Engineer: Procedure Note Radiology, Radiologist, MD - 09/05/2024 [place] [address] Ultrasound Report Signed Patient: MICHAEL ROQUE RMR#: [id number] : 1985Acct:[id number] Age/Sex: 38 / FADM Date: 09/02/24 Loc: US Attending Dr: Neisha Stapleton D.O. Ordering Physician: Neisha Stapleton D.O. Date of Service: 09/02/24 Procedure(s): US OB growth Accession Number(s): [id number] cc: Neisha Stapleton D.O.; Physician,Non-Staff Ramiro The [place] [address] Patient Name: MICHAEL ROQUE MRN: [id number] date: 1985 Sex: F Assigned Patient Location: US Current Patient Location: Accession/Order Number: [id number] Exam Date: 09/05/2024 08:14 Report Date: 09/05/2024 [...] Holden M.D. 09/05/2024 8:20 AM Dictation Location: [place] [address] Electronically authenticated by: [id number] Y Date: 508:20 Dictated By: Bisi Holden M.D. Signed By:09/05/24821 DD/ 9 TD/TT: Senior Mechanical Engineer: us Neisha Daya DO [facility] Final Result documented in this encounter Visit Diagnoses Not on filedocumented in this encounter Additional Health Concerns Active Problems Noted Date Diagnosed Date OB Reminders 04/14/2024 documented as of this encounter Care Teams Roof Tiler Relationship Specialty Start Date End Date Juaquin Rae DO [address] [facility] [address] [place] [address] PCP - General Family Medicine 07/15/22 documented as of this encounter
--- OUTSIDE RECORDS SUMMARY | 2024-09-14 05:15 | XMS_ITS | Encounter Summary ---
Author Organization [facility] Address [address] [place] [address] Phone Care Team Providers Care Digital Advertising Specialist Name Role Phone Rafaela Garrido Primary Care Provider Unavailable Rafaela Garrido Unavailable Unava ilable Trever Lee MD Unavailable [phone] Gina Man DO Unavailable Encounter Details Date Type Department Care Team (Late st Contact Info) Description 09/08/2022 Patient Risk Score ACO Care Management [address] [facility] [address] [place] [address] Social History Tobacco Use Types Packs/Day Years [...] on filedocumented in this encounter Care Teams Digital Advertising Specialist Relationship Specialty Start Date End Date Rafaela Garrido APRN-CNP PCP - General 07/06/18 10/28/22 Rafaela Garrido APRN-CNP Office Address Unavailable as of 08/07/2022 PCP - MMO ACO PCP 03/09/21 10/06/22 [place] [address] [place] [address] PCP - MMO ACO PCP 03/09/23 10/07/23 Trever Lee MD [address] [facility], [address] [place] [address] Consulting Physician Neurology 02/19/23 documented as of this encounter
--- OUTSIDE RECORDS SUMMARY | 2024-09-14 05:15 | XMS_ITS | Encounter Summary ---
Author Organization [facility] Address [address] [place] [address] Care Team Providers Care Tool Worker Name Role Phone Juaquin Rae DO Primary Care Provid er Source Comments In the event this information is protected by the Federal Confidentiality of Alcohol and Drug AbusePatient Records regulations: The Federal rules restrict any use of the information to criminally investigate or prosecute any alcohol or drug abuse patient.[facility] Encounter Details Date Type Department Care Team (Late st Contact Info) Description 08/13/2023 Patient Msg Dermatology [place] [address] [place] [address] Roula Hodge APRN.TECHNICAL SUPPORT COORDINATOR [address] [place] [address] Appointment Request Social History Tobacco [...] N ot on file 03/28/2022 Data from: https://www.neighborhoodatlas.medicine.[facility].edu/. Last address used for calculation [...] on filedocumented in this encounter Care Teams Tool Worker Relationship Specialty Start Date End Date Juaquin Rae DO [address] [facility] [address] [place] [id number] PCP - General Family Medicine 06/10/16 documented as of this encounter
--- OUTSIDE RECORDS SUMMARY | 2024-09-14 05:15 | XMS_ITS | Encounter Summary ---
Author Organization [facility] Address [address] [place] [address] Care Team Providers Care Grid Operator Name Role Phone Juaquin Rae DO Primary Care Provid er Source Comments In the event this information is protected by the Federal Confidentiality of Alcohol and Drug AbusePatient Records regulations: The Federal rules restrict any use of the information to criminally investigate or prosecute any alcohol or drug abuse patient.[facility] Encounter Details Date Type Department Care Team (Late st Contact Info) Description 02/21/2024 Patient Msg Dermatology [place] [address] [place] [address] Roula Hodge APRN.[employer] [address] [place] [address] Appointment Request Social History Tobacco Use Types Packs/Day Years Used Date Smoking Tobacco: Never Alcohol Use Standard Drinks/Week Comments Yes 0 (1 standard drink = 0.6 oz pur e alcohol) occasional Area Deprivation Index Answer Date Renaldo rded National Score (1-100), lower number is lower ri sk 52 09/01/2023 State Score (1-10), lower number is lower risk 3 09/01/2023 Data from: https://www.neighborhoodatlas.medicine.[facility].edu/. Last address used for calculation Felix [...] on filedocumented in this encounter Care Teams Grid Operator Relationship Specialty Start Date End Date Juaquin Rae DO [address] [place] [address] PCP - General Family Medicine 06/10/16 documented as of this encounter
--- OUTSIDE RECORDS SUMMARY | 2024-09-14 05:15 | XMS_ITS | Encounter Summary ---
Author Organization [facility] Address [address] [place] [address] Phone Care Team Providers Care Children'S Tutor Nursery Name Role Phone Rafaela Garrido Primary Care Provider Unavailable Rafaela Garrido Unavailable Unava ilable Trever Lee MD Unavailable [phone] Gina Man DO Unavailable Encounter Details Date Type Department Care Team (Late st Contact Info) Description 10/09/2018 Orders Only [facility] [address] [place] [address] Conversion, Onbase Social History Tobacco Use Types [...] on filedocumented in this encounter Care Teams Children'S Tutor Nursery Relationship Specialty Start Date End Date Rafaela Garrido APRN-CNP PCP - General 07/06/18 10/28/22 Rafaela Garrido APRN-CNP Office Address Unavailable as of 08/07/2022 PCP - MMO ACO PCP 03/09/21 10/06/22 [place] [address] [facility] [address] [place] [address] PCP - MMO ACO PCP 03/09/23 10/07/23 Trever Lee MD [address] [facility], [address] [place] [address] Consulting Physician Neurology 02/19/23 documented as of this encounter
--- OUTSIDE RECORDS SUMMARY | 2024-09-14 05:15 | XMS_ITS | Clinical Summary ---
Author Organization [facility] Address [address] [place] [address] Phone Care Team Providers Care Furnace Erector Name Role Phone Trever Lee MD Unavailable [phone] Allergies Active Allergy Reactions Criticality Noted [...] 09/01/2022, 09/01/2022, Additional history exists Influenza Vaccine (#1) 2024 Lipid Panel 04/23/2025 04/23/2020 Cervical Cancer [...] EST) Cholesterol 135 0 - 199 mg/dL [facility] Comment: . AGE DESIRABLE BORDERLINE [...] prior to Metamizole dosing. HDL 34.0(A) mg/dL [facility] Comment: . AGE VERY LOW LOW NORMAL HIGH 0-19 Y < 35 < 40 40-45 ---- 20-24 Y ---- < 40 >45 ---- >24 Y ---- < 40 40-60 >60 . Cholesterol/HDL Ratio 4.0 [facility] Comment: REF VALUES DESIRABLE < 3.4 HIGH RISK > 5.0 LDL 70 0 - 99 mg/dL [facility] Comment: . NEAR BORD AGE DESIRABLE OPTIMAL HIGH HIGH VERY HIGH 0-19 Y 0 - 109 --- 110-129 >/= 130 ---- 20-24 Y 0 - 119 --- 120-159 >/= 160 ---- >24 Y 0 - 99 100-129 130-159 160-189 >/=190 . VLDL 31 0 - 40 mg/dL [facility] Triglycerides 154(H) 0 - 149 mg/dL [facility] Comment: . AGE DESIRABLE BORDERLINE [...] EST 04/23/2020 11:14 AM EST Rafaela Garrido BOAT GARNISHER-CHEMICAL PACKAGER LAB BLOOD ORDERABLES F inal Result [facility] from Last 3 Months or Most Recently Relevant to Health Maintenance Insurance [facility] [place] [address] [facility] Care Teams Furnace Erector Relationship Specialty Start Date End Date Trever Lee MD [address] [facility], [address] [place], [place] [id number] Consulting Physician Neurology 02/19/23
--- OUTSIDE RECORDS SUMMARY | 2024-09-14 05:15 | XMS_ITS | Encounter Summary ---
Author Organization [facility] Address [address] [place] [address] Phone Care Team Providers Care County Health Officer Name Role Phone Trever Lee MD Unavailable Gina Man DO Unavailable Encounter Details Date Type Department Care Team (Late st Contact Info) Description 09/10/2023 Patient Risk Score [facility] [place] [address] [place] [address] Social History Tobacco Use Types [...] documented as of this encounter Care Teams County Health Officer Relationship Specialty [place] [address] [place] [address] PCP - MMO ACO PCP 03/09/23 10/07/23 rTever Lee MD [address] [facility], [address] [place], [place] [address] Consulting Physician Neurology 02/19/23 documented as of this encounter
--- OUTSIDE RECORDS SUMMARY | 2024-09-14 05:15 | XMS_ITS | Encounter Summary ---
Author Organization [facility] Address [address] [place] [address] Care Team Providers Care Transitional Care Liaison Name Role Phone Juaquin Rae Amira SORIA Primary Care Provider [phone] Encounter Details Date Type Department Care Team (Late st Contact Info) Description 09/03/2024 Clinisync Result Encounter [facility] External Department Unsolicited Neisha Stapleton, [address] [place] [address] Social History Tobacco Use Types Packs/Day Years [...] [facility] OB [address] [place] [address] Neisha Stapleton DO [facility] [address] [place], [place] [address] documented as of this encounter Goals Goal [...] PM EDT Narrative 09/03/2024 6:10 [place] [address] Ultrasound Report Signed Patient: MICHAEL ROQUE MR#: [id number] : 1985 Acct:[id number] Age/Sex: 38 / F ADM Date: 09/02/24 Loc: US Attending Dr: Neisha Stapleton D.O. Ordering Physician: Neisha Stapleton D.O. Date of Service: 09/02/24 Procedure(s): US OB BPP w non-stress Accession Number(s): [id number] cc: Neisha Stapleton D.O.; Physician,Non-Staff M.Cristal The [place] [id number] Patient Name: MICHAEL ROQUE MRN: [id number] date: 1985 Sex: F Assigned Patient Location: [facility] Current Patient Location: Accession/Order Number: [id number] Exam Date: 09/03/2024 18:03 Report Date: 09/03/2024 [...] Bhatia M.D. 09/03/2024 6:07 PM Dictation Location: [place] [address] Electronically authenticated by: [id number] Y Date: 09/03/2024 18:07 Dictated By: Orlando Bhatia M.D. Signed By: 09/03/24 181 DD/ 06 TD/TT: Tip Bander: Procedure Note Radiology, Radiologist, MD - 09/03/2024 [place] [address] Ultrasound Report Signed Patient: MICHAEL ROQUE RMR#: [id number] : 1985Acct:[id number] Age/Sex: 38 / FADM Date: 09/02/24 Loc: US Attending Dr: Neisha Stapleton D.O. Ordering Physician: Neisha Stapleton D.O. Date of Service: 09/02/24 Procedure(s): US OB BPP w non-stress Accession Number(s): [id number] cc: Neisha Stapleton D.O.; Physician,Non-Staff Ramiro The [place] [id number] Patient Name: MICHAEL ROQUE MRN: [facility]:[id number] date: 1985 Sex: F Assigned Patient Location: [facility] Current Patient Location: Accession/Order Number: [id number] Exam Date: 09/03/2024 18:03 Report Date: 09/03/2024 [...] Bhatia M.D. 09/03/2024 6:07 PM Dictation Location: [place] [address] Electronically authenticated by: [id number] Y Date: 8:07 Dictated By: Orlando Bhatia M.D. Signed By:09/03/241809 DD/ 06 TD/TT: Tip Bander: us Neisha Stapleton DO [facility] Final Result documented in this encounter Visit Diagnoses Not on filedocumented in this encounter Additional Health Concerns Active Problems Noted Date Diagnosed Date OB Reminders 04/14/2024 documented as of this encounter Care Teams Transitional Care Liaison Relationship Specialty Start Date End Date Juaquin Rae DO [address] [facility] [address] [place] [address] PCP - General Family Medicine 07/15/22 documented as of this encounter
--- OUTSIDE RECORDS SUMMARY | 2024-09-14 05:15 | XMS_ITS | Encounter Summary ---
Author Organization [facility] Address [address] [place] [address] Phone Care Team Providers Care Volleyball Commentator Name Role Phone Trever Lee MD Unavailable Gina Man DO Unavailable Encounter Details Date Type Department Care Team (Late st Contact Info) Description 06/11/2023 Patient Risk Score [facility] Care Management [address] [place] [address] Social History Tobacco Use Types [...] documented as of this encounter Care Teams Volleyball Commentator Relationship Specialty [place] [address] [place] [address] PCP - MMO ACO PCP 03/09/23 10/07/23 Trever Lee MD [address] [facility], [address] [place], [place] [address] Consulting Physician Neurology 02/19/23 documented as of this encounter
--- OUTSIDE RECORDS SUMMARY | 2024-09-14 05:15 | XMS_ITS | Encounter Summary ---
Author Organization [facility] Address [address] [place] [address] Phone Care Team Providers Care Chief General Pediatric Clinic Name Role Phone Trever Lee MD Unavailable Gina Man DO Unavailable Encounter Details Date Type Department Care Team (Late st Contact Info) Description 02/20/2023 Scanned Document [facility] [address] [facility] [address] [place] [address] Trever Lee MD [address] [facility], [facility] [address] [place] [address] Social History Tobacco Use Types Packs/Day Years [...] documented as of this encounter Care Teams Chief General Pediatric Clinic Relationship Specialty [place] [address] [facility] [address] [place], [place] [id number] PCP - MMO ACO PCP 03/09/23 10/07/23 Trever Lee MD [address] [facility], [address] [place] [address] Consulting Physician Neurology 02/19/23 documented as of this encounter
--- OUTSIDE RECORDS SUMMARY | 2024-09-14 05:15 | XMS_ITS | Encounter Summary ---
Author Organization [facility] Address [address] [place] [address] Care Team Providers Care Cutter Woodwind Reeds Name Role Phone Juaquin Rae Amira SORIA Primary Care Provider [phone] Encounter Details Date Type Department Care Team (Late st Contact Info) Description 09/08/2024 Clinisync Result Encounter [facility]OMS External Department Unsolicited Neisha Stapleton, [address] [place] [address] Social History Tobacco Use Types Packs/Day Years [...] EDT Office Visit [facility] OB [address] [facility] [place] [address] Neisha Stapleton DO [facility] [address] [place], [place] [address] documented as of this encounter Goals Goal Patient Goal Type Associated Problems Recent Progress Patient-Stated? Author Reminders Care Plan OB Reminders No Open Scheduling, Background documented as of this encounter Procedures Procedure Name Priority Date/Time Associated Diagnosis Comments US OB BPP W NON-STRESS 09/08/2024 7:25 PM EDT documented in this encounter Results * US OB BPP W NON-STRESS (09/08/2024 7:25 PM EDT) Anatomical Region Laterality Modality Other 09/08/2024 7:25 PM EDT Narrative 09/08/2024 7:27 [place] [address] Ultrasound Report Signed Patient: MICHAEL ROQUE MR#: [id number] : 1985 Acct:[id number] Age/Sex: 38 / F ADM Date: 09/08/24 Loc: US Attending Dr: Neisha Stapleton D.O. Ordering Physician: Neisha Stapleton D.O. Date of Service: 09/08/24 Procedure(s): US OB BPP w non-stress Accession Number(s): [id number] cc: Neisha Stapleton D.O.; Physician,Non-Staff Ramiro The [place] [id number] Patient Name: MICHAEL ROQUE MRN: [id number] date: 1985 Sex: F Assigned Patient Location: [facility] Current Patient Location: Accession/Order Number: [id number] Exam Date: 09/08/2024 19:24 Report Date: 09/08/2024 [...] Villegas M.D. 09/08/2024 7:25 PM Dictation Location: [facility]20 Electronically authenticated by: [id number] Y Date: 09/08/2024 19:25 Dictated By: Roddy Villegas D.O. Signed By: 09/08/241926 DD/ 24 TD/TT: Photoresist Contact Printer: Procedure Note Radiology, Radiologist, - 09/08/2024 [place] [address] Ultrasound Report Signed Patient: MICHAEL ROQUE RMR#: [id number] : 1985Acct:[id number] Age/Sex: 38 / FADM Date: 09/08/24 Loc: US Attending Dr: Neisha Stapleton D.O. Ordering Physician: Neisha Stapleton D.O. Date of Service: 09/08/24 Procedure(s): US OB BPP w non-stress Accession Number(s): [id number] cc: Neisha Stapleton D.O.; Physician,Non-Staff MRajeev The [place] [address] Patient Name: MICHAEL ROQUE MRN: [facility]:[id number] date: 1985 Sex: F Assigned Patient Location: [facility] Current Patient Location: Accession/Order Number: [id number] Exam Date: 09/08/2024 19:24 Report Date: 09/08/2024 [...] Villegas M.D. 09/08/2024 7:25 PM Dictation Location: [place] [address] Electronically authenticated by: [id number] Y Date: 9:25 Dictated By: Roddy Villegas D.O. Signed By:09/08/241926 DD/ 24 TD/TT: Photoresist Contact Printer: Neisha Stapleton DO [facility] Final Result documented in this encounter Visit Diagnoses Not on filedocumented in this encounter Additional Health Concerns Active Problems Noted Date Diagnosed Date OB Reminders 04/14/2024 documented as of this encounter Care Teams Cutter Woodwind Reeds Relationship Specialty Start Date End Date Juaquin Rae DO [address] [place] [address] PCP - General Family Medicine 07/15/22 documented as of this encounter
--- OUTSIDE RECORDS SUMMARY | 2024-09-14 05:15 | XMS_ITS | Encounter Summary ---
Author Organization [facility] Address [address] [place] [address] Phone Care Team Providers Care Net Repairer Name Role Phone Trever Lee MD Unavailable Gina Man DO Unavailable Encounter Details Date Type Department Care Team (Late st Contact Info) Description 08/11/2023 Patient Risk Score [facility] Care Management [address] [place] [address] Social History Tobacco Use Types [...] documented as of this encounter Care Teams Net Repairer Relationship Specialty [place] [address] [place] [address] PCP - MMO ACO PCP 03/09/23 10/07/23 Trever Lee MD [address] [facility], [address] [place] [address] Consulting Physician Neurology 02/19/23 documented as of this encounter
--- OUTSIDE RECORDS SUMMARY | 2024-09-14 05:15 | XMS_ITS | Encounter Summary ---
Author Organization [facility] Address [address] [place] [address] Phone Care Team Providers Care Fence Gate Assembler Name Role Phone Trever Lee MD Unavailable Gina Man DO Unavailable Encounter Details Date Type Department Care Team (Late st Contact Info) Description 07/11/2023 Patient Risk Score [facility] Care Management [address] [place] [address] Social History Tobacco Use Types [...] documented as of this encounter Care Teams Fence Gate Assembler Relationship Specialty [place] [address] [place] [address] PCP - MMO ACO PCP 03/09/23 10/07/23 Trever Lee MD [address] [facility], [address] [place], [place] [address] Consulting Physician Neurology 02/19/23 documented as of this encounter
--- OUTSIDE RECORDS SUMMARY | 2024-09-14 05:15 | XMS_ITS | Encounter Summary ---
Author Organization [facility] Address [address] [place] [address] Care Team Providers Care Editor Name Role Phone Juaquin Rae Amira SORIA Primary Care Provider [phone] Encounter Details Date Type Department Care Team (Late st Contact Info) Description 04/14/2024 Abstract [facility] OB [address] [place] [address] Matt Stapleton DO [address] [place], [place] [address] Social History Tobacco Use Types Packs/Day Years [...] 10/26/2024 4:00 PM EDT Office Visit [facility] OB [address] [place] [address] Matt Stapleton DO [address] [place], [place] [address] documented as of this encounter Goals Goal Patient Goal Type Associated Problems Recent Progress Patient-Stated? Author Reminders Care Plan OB Reminders No Open Scheduling, Background documented as of this encounter Visit Diagnoses Not on filedocumented in this encounter Additional Health Concerns Active Problems Noted Date Diagnosed Date OB Reminders 04/14/2024 documented as of this encounter Care Teams Editor Relationship Specialty Start Date End Date Juaquin Rae DO [address] [place] [address] PCP - General Family Medicine 07/15/22 documented as of this encounter
--- OUTSIDE RECORDS SUMMARY | 2024-09-14 05:15 | XMS_ITS | Encounter Summary ---
Author Organization [facility] Address [address] [place] [address] Care Team Providers Care Trim Setter Helper Name Role Phone Juaquin Rae DO [...] Contact Info) Description 09/02/2021 Patient Msg Dermatology [place] [address] [place] [address] Roula Hodge APRN.TWINE REELING MACHINE OPERATOR [address] [place] [address] Appointment Request Social History Tobacco [...] N ot on file 02/13/2020 Data from: https://www.neighborhoodatlas.medicine.[facility].edu/. Last address used for calculation Not [...] on filedocumented in this encounter Care Teams Trim Setter Helper Relationship Specialty Start Date End Date Juaquin Rae DO [address] [place] [address] PCP - General Family Medicine 06/10/16 documented as of this encounter
--- OUTSIDE RECORDS SUMMARY | 2024-09-14 05:15 | XMS_ITS | Encounter Summary ---
Author Organization [facility] Address [address] [place] [address] Care Team Providers Care Retail Greeting Card Merchandiser Name Role Phone Juaquin Rae Primary Care Provider [phone]- [phone] Encounter Details Date Type Department Care Team (Late st Contact Info) Description 09/06/2024 Bamboo flowsheet [facility] OB [address] [place] [address] Matt Stapleton DO [address] [place], [place] [address] Social History Tobacco Use Types Packs/Day Years [...] [address] Matt Stapleton DO [address] [place], [facility] documented as of this encounter Goals Goal Patient Goal Type Associated Problems Recent Progress Patient-Stated? Author Reminders Care Plan OB Reminders No Open Scheduling, Background documented as of this encounter Visit Diagnoses Not on filedocumented in this encounter Additional Health Concerns Active Problems Noted Date Diagnosed Date OB Reminders 04/14/2024 documented as of this encounter Care Teams Retail Greeting Card Merchandiser Relationship Specialty Start Date End Date Juaquin Rae DO [address] [facility] [address] [place] [address] PCP - General Family Medicine 07/15/22 documented as of this encounter
--- OUTSIDE RECORDS SUMMARY | 2024-09-14 05:15 | XMS_ITS | Encounter Summary ---
Author Organization [facility] Address [address] [place] [address] Care Team Providers Care Remedial Teacher Name Role Phone Juaquin Rae Amira SORIA Primary Care Provider +1- [phone] Encounter Details Date Type Department Care Team (Late st Contact Info) Description 06/06/2024 Abstract [facility] OB [address] [place] [place] [address] [place] [address] Maria Victoria Zelaya LPN Social History [...] 10/26/2024 4:00 PM EDT Office Visit [facility] OB [facility] [place] [address] Matt Stapleton DO [address] [place], [place] [address] [place], [place] [address] documented as of this encounter Goals Goal Patient Goal Type Associated Problems Recent Progress Patient-Stated? Author Reminders Care Plan OB Reminders No Open Scheduling, Background documented as of this encounter Visit Diagnoses Not on filedocumented in this encounter Additional Health Concerns Active Problems Noted Date Diagnosed Date OB Reminders 04/14/2024 documented as of this encounter Care Teams Remedial Teacher Relationship Specialty Start Date End Date Juaquin Rae DO [address] [facility] 230 [place] [address] PCP - General Family Medicine 07/15/22 documented as of this encounter
--- OUTSIDE RECORDS SUMMARY | 2024-09-14 05:15 | XMS_ITS | Encounter Summary ---
Author Organization [facility] tem Address [id number] [address] [place] [address] Care Team Providers Care Marketing Forecaster Name Role Phone Unavailable Primary Care Provider Unavailabl e Encounter Details Date Type Department Care Team (Late st Contact Info) Description 09/12/2024 Orders Only Maternal- Medicine at [facility] [address] [place] [id number] Shira Ospina LD Insulin controlled gestational diabetes [...]
--- OUTSIDE RECORDS SUMMARY | 2024-09-14 05:15 | XMS_ITS | Encounter Summary ---
Author Organization [facility] Address [address] [place] [address] Phone Care Team Providers Care Pocket Cutter Name Role Phone Trever Lee MD Unavailable [phone] Gina Man DO Unavailable Encounter Details Date Type Department Care Team (Late st Contact Info) Description 02/20/2023 Scanned Document [facility] [address] [facility] [address] [place] [address] Trever Lee MD [address] [facility], [facility] [address] [place] [address] Social History Tobacco Use Types Packs/Day Years [...] documented as of this encounter Care Teams Pocket Cutter Relationship Specialty [place] [address] [facility] [address] [place], [place] [id number] PCP - MMO ACO PCP 03/09/23 10/07/23 Trever Lee MD [address] [facility], [place] [address] [place] [address] Consulting Physician Neurology 02/19/23 documented as of this encounter
--- OUTSIDE RECORDS SUMMARY | 2024-09-14 05:15 | XMS_ITS | Encounter Summary ---
Author Organization [facility] Address [address] [place] [address] Care Team Providers Care Pumper Head Name Role Phone Juaquin Rae DO Primary Care Provid er Source Comments In the event this information is protected by the Federal Confidentiality of Alcohol and Drug AbusePatient Records regulations: The Federal rules restrict any use of the information to criminally investigate or prosecute any alcohol or drug abuse patient.[facility] Encounter Details Date Type Department Care Team (Late st Contact Info) Description 05/24/2024 Patient [facility] -[address] [place] [address] Sobeida Berrios RPh At your next appointment, choose [facility]. Social History Tobacco Use Types Packs/Day Years Used Date Smoking Tobacco: Never Alcohol Use Standard Drinks/Week Comments Yes 0 (1 standard drink = 0.6 oz pur e alcohol) occasional Area Deprivation Index Answer Date Renaldo rded National Score (1-100), lower number is lower ri sk 52 09/01/2023 State Score (1-10), lower number is lower risk 3 09/01/2023 Data from: https://www.neighborhoodatlas.medicine.[facility].edu/. Last address used for calculation [address] [...] on filedocumented in this encounter Care Teams Pumper Head Relationship Specialty Start Date End Date Juaquin Rae DO [address] [facility] [address] [place] [address] PCP - General Family Medicine 06/10/16 documented as of this encounter
--- OUTSIDE RECORDS SUMMARY | 2024-09-14 05:15 | XMS_ITS | Encounter Summary ---
Author Organization [facility] Address [address] [place] [address] Phone Care Team Providers Care Transfer Table Operator Helper Name Role Phone Trever Lee MD Unavailable [phone] Encounter Details Date Type Department Care Team (Late st Contact Info) Description 11/11/2023 Patient Risk Score [facility] Care Management [address] [place] [address] [place] [id number] Social History Tobacco Use Types Packs/Day Years [...] documented as of this encounter Care Teams Transfer Table Operator Helper Relationship Specialty Start Date End Date Trever Lee MD [address] [facility], [place] [address] [place] [address] Consulting Physician Neurology 02/19/23 documented as of this encounter
--- OUTSIDE RECORDS SUMMARY | 2024-09-14 05:15 | XMS_ITS | Encounter Summary ---
Author Organization [facility] Address [address] [place] [address] Care Team Providers Care Test Puller Name Role Phone Juaquin Rae Primary Care Provider [phone] Encounter Details Date Type Department Care Team (Late st Contact Info) Description 08/31/2024 Bamboo flowsheet [facility] [address] [place] [address] Matt Stapleton DO [address], [place] [address] Social History Tobacco Use Types Packs/Day Years [...] Visit [facility] [address] [place] [address] Matt Stapleton DO [address], [facility] documented as of this encounter Goals Goal Patient Goal Type Associated Problems Recent Progress Patient-Stated? Author Reminders Care Plan OB Reminders No Open Scheduling, Background documented as of this encounter Visit Diagnoses Not on filedocumented in this encounter Additional Health Concerns Active Problems Noted Date Diagnosed Date OB Reminders 04/14/2024 documented as of this encounter Care Teams Test Puller Relationship Specialty Start Date End Date Juaquin Rae DO [address] [facility] [address] [place] [address] PCP - General Family Medicine 07/15/22 documented as of this encounter
--- OUTSIDE RECORDS SUMMARY | 2024-09-14 05:15 | XMS_ITS | Encounter Summary ---
Author Organization [facility] Address [address] [place] [address] Phone Care Team Providers Care Requisition Approver Name Role Phone Trever Lee MD Unavailable [phone] Encounter Details Date Type Department Care Team (Late st Contact Info) Description 10/11/2023 Patient Risk Score [facility] Care Management [address] [place] [phone] Social History Tobacco Use Types Packs/Day Years [...] documented as of this encounter Care Teams Requisition Approver Relationship Specialty Start Date End Date Trever Lee MD [address] [facility], [address] [place] [address] Consulting Physician Neurology 02/19/23 documented as of this encounter
--- OUTSIDE RECORDS SUMMARY | 2024-09-14 05:15 | XMS_ITS | Encounter Summary ---
Author Organization [facility] Address [address] [place] [address] Care Team Providers Care Lace Weaver Name Role Phone Juaquin Rae Amira SORIA Primary Care Provider [phone] Encounter Details Date Type Department Care Team (Late st Contact Info) Description 09/06/2024 Abstract [facility] [address] [facility] [place] [phone] Matt Stapleton DO [address], [place] [address] Social History Tobacco Use Types Packs/Day Years [...] Visit [facility] [address] [place] [address] Matt Stapleton DO [address], [place] [id number] documented as of this encounter Goals Goal Patient Goal Type Associated Problems Recent Progress Patient-Stated? Author Reminders Care Plan OB Reminders No Open Scheduling, Background documented as of this encounter Visit Diagnoses Not on filedocumented in this encounter Additional Health Concerns Active Problems Noted Date Diagnosed Date OB Reminders 04/14/2024 documented as of this encounter Care Teams Lace [place] Relationship Specialty Start Date End Date Juaquin Rae DO [address] [place] [address] PCP - General Family Medicine 07/15/22 documented as of this encounter
--- OUTSIDE RECORDS SUMMARY | 2024-09-14 05:15 | XMS_ITS | Encounter Summary ---
Author Organization [facility] Address [address] [place] [address] Care Team Providers Care Photo Technologist Name Role Phone Juaquin Rae DO Primary Care Provid er Source Comments In the event this information is protected by the Federal Confidentiality of Alcohol and Drug AbusePatient Records regulations: The Federal rules restrict any use of the information to criminally investigate or prosecute any alcohol or drug abuse patient.[facility] Encounter Details Date Type Department Care Team (Late st Contact Info) Description 08/13/2023 Patient Msg Dermatology [place] [address] [place] [address] Roula Hodge APRN.SLUBBER RUNNER [address] [place] [address] Appointment Request Social History Tobacco [...] on file 03/28/2022 Data from: https://www.neighborhoodatlas.medicine.[facility].edu/. Last address used for calculation [...] on filedocumented in this encounter Care Teams Photo Technologist Relationship Specialty Start Date End Date Juaquin Rae DO [address] [facility] [address] [place] [id number] PCP - General Family Medicine 06/10/16 documented as of this encounter
--- OUTSIDE RECORDS SUMMARY | 2024-09-14 05:15 | XMS_ITS | Encounter Summary ---
Author Organization [facility] Address [address] [place] [address] Phone Care Team Providers Care Personal Shopper Name Role Phone Trever Lee MD Unavailable Gina Man DO Unavailable Encounter Details Date Type Department Care Team (Late st Contact Info) Description 11/09/2022 Patient Risk Score [facility] Care Management [address] [facility] [address] [place] [address] Social History Tobacco Use Types [...] filedocumented in this encounter Care Teams Personal Shopper Relationship Specialty [place] [address] [facility] [address] [place] [address] PCP - MMO ACO PCP 03/09/23 10/07/23 Trever Lee MD [address] [facility], [address] [place], [place] [phone] Consulting Physician Neurology 02/19/23 documented as of this encounter
--- OUTSIDE RECORDS SUMMARY | 2024-09-14 05:15 | XMS_ITS | Encounter Summary ---
Author Organization [facility] Address [address] [place] [address] Phone Care Team Providers Care Epic [facility] [employer] Name Role Phone Rafaela Garrido APRN-PATIENT INTAKE REPRESENTATIVE Primary Care Provider Unavailable Trever Lee MD Unavailable Gina Man DO Unavailable Encounter Details Date Type Department Care Team (Late st Contact Info) Description 10/16/2022 Scanned Document [facility] [address] [place] [address] Conversion, Onbase Social History Tobacco Use Types [...] on filedocumented in this encounter Care Teams Epic [facility] [employer] Relationship Specialty Start Date End Date Rafaela Garrido APRN-CNP PCP - General 07/06/18 10/28/22 [place] [address] [facility] [address] [place] [address] PCP - MMO ACO PCP 03/09/23 10/07/23 Trever Lee MD [address] [facility], [address] [place] [address] Consulting Physician Neurology 02/19/23 documented as of this encounter
[2024-09-14] MEDS: OXYTOCIN/0.9 % SODIUM CHLORIDE 10 UNITS/500 ML PLAST..BAG 6 UNIT IV (06:05)
[2024-09-14] MEDS: 0.9 % SODIUM CHLORIDE 1,000 ML 125 ML IV ×2 (06:08→13:04)
[2024-09-14 06:28] LABS: Hematocrit 33.5 % (36.0-48.0); Hemoglobin 10.9 g/dL (12.0-16.0); Mean Corpuscular HGB Conc 32.5 g/dL (29.9-35.2); Mean Corpuscular Hemoglobin 26.5 pg (26.7-34.0); Mean Corpuscular Volume 81.5 fL (81.0-99.0); Platelet Count 145 10^3/uL (150-450); Red Blood Count 4.11 10^6/uL (4.20-5.40); White Blood Count 8.0 10^3/uL (4.0-11.0)
[2024-09-14 06:36] LABS: Cannabinoid Screen Urine NEGATIVE (NEGATIVE); Methamphetamines Screen Urine NEGATIVE (NEGATIVE); Tricyclic Antidepressant Urine NEGATIVE (NEGATIVE)
[2024-09-14] MEDS: ROPIVACAINE HCL/PF 400 MG/200 ML PREMIX 9 MG EPIDURAL (15:28)
[2024-09-14] MEDS: 0.9 % SODIUM CHLORIDE 1,000 ML 1000 ML IV (15:29)
[2024-09-14] MEDS: OXYTOCIN/0.9 % SODIUM CHLORIDE 10 UNITS/500 ML PLAST..BAG 60 UNIT IV (18:37)
--- NOTE | 2024-09-14 19:13 | W.PC.ACHO ---
Registration Status: ADM IN Primary Language: Preferred Language: Irish Report given Eloy SHIELDS at 1900. Care relinquished. Active Medications Generic Name Dose Route Start Last Admin Trade Name Louis PRN Reason Stop Dose Admin Carboprost Tromethamine 250 mcg 09/14/24 05:18 Carboprost Tromethamine 250 Mcg/Ml 1 Ml Vial IM 09/16/24 05:18 Q15M PRN Bleeding Diphenhydramine HCl 25 mg 09/14/24 07:20 Diphenhydramine Hcl 50 Mg/Ml Vial IV 09/15/24 07:21 Q6H PRN Itching Ephedrine Sulfate 5 mg 09/14/24 07:20 Ephedrine Sulfate 50 Mg/Ml Vial IV 09/15/24 07:22 Q5M PRN Blood Pressure - Low Fentanyl Citrate 100 mcg 09/14/24 09:21 Fentanyl Citrate/Pf 100 Mcg/2 Ml Vial EPIDURAL ONCE PRN epidural Fentanyl Citrate 100 mcg 09/14/24 09:21 Fentanyl Citrate/Pf 100 Mcg/2 Ml Vial EPIDURAL ONCE PRN epidural Tranexamic Acid 1,000 mg/ 110 mls @ 440 mls/hr 09/14/24 05:18 Sodium Chloride IV 09/16/24 05:18 ONCE PRN Uterine Bleeding Sodium Chloride 1,000 mls @ 125 mls/hr 09/14/24 05:30 09/14/24 15:29 Sodium Chloride 0.9% 1,000 Ml IV Infused .Q8H ASTRID Infusion Oxytocin/Sodium Chloride 10 units in 500 mls @ 6 mls/hr 09/14/24 05:30 09/14/24 18:37 Pitocin 10 Unit/500 Ml-Ns IV 20 milliunit/min TITR ASTRID 60 mls/hr Protocol Administration 2 MILLIUNIT/MIN Oxytocin/Sodium Chloride 20 units in 1,000 mls @ 125 mls/hr 09/14/24 05:18 Pitocin 20 Unit/1,000 Ml-Ns IV Q8H PRN POST DELIVERY Ropivacaine/Sodium Chloride 400 mg in 200 mls @ 6 mls/hr 09/14/24 07:30 09/14/24 15:28 Naropin 0.2% 400 Mg/200 Ml Bag EPIDURAL 9 mls/hr Q24H ASTRID Administration Lidocaine 5 ml 09/14/24 05:18 Lidocaine Viscous 2% 15 Ml Solution TOPICAL 09/16/24 05:22 ONCE PRN Pain Lidocaine 1 ml 09/14/24 05:18 Lidocaine Hcl 1% 200 Mg/20 Ml Mdv INJ 09/16/24 05:22 ONCE PRN Pain Lidocaine 5 ml 09/14/24 07:20 Lidocaine Hcl 2% Pf 100 Mg/5 Ml Vial INJ 09/15/24 07:21 Q1H PRN Epidural Lidocaine 5 ml 09/14/24 09:21 Lidocaine Hcl 2% Pf 100 Mg/5 Ml Vial INJ 09/15/24 09:22 Q1H PRN Epidural Methylergonovine Maleate 0.2 mg 09/14/24 05:18 Methylergonovine Maleate 0.2 Mg/Ml Ampule IM 09/16/24 05:18 ONCE PRN Uterine Contractility/Contract Methylergonovine Maleate 0.2 mg 09/14/24 05:18 Methylergonovine Maleate 0.2 Mg Tablet PO 09/16/24 05:18 Q4H PRN Uterine Contractility/Contract Misoprostol 600 mcg 09/14/24 05:18 Misoprostol 100 Mcg Tablet PO 09/16/24 05:18 ONCE PRN Uterine Bleeding Misoprostol 800 mcg 09/14/24 05:18 Misoprostol 100 Mcg Tablet SL 09/16/24 05:18 ONCE PRN Uterine Bleeding Misoprostol 1,000 mcg 09/14/24 05:18 Misoprostol 100 Mcg Tablet IL 09/16/24 05:18 ONCE PRN Uterine Bleeding Nalbuphine HCl 10 mg 09/14/24 05:18 09/14/24 11:39 Nalbuphine Hcl 10 Mg/Ml Ampule IV 10 mg Q3H PRN Administration Pain Scale 4-6 Naloxone HCl 0.4 mg 09/14/24 07:20 Naloxone Hcl 0.4 Mg/Ml Vial IV 09/15/24 07:22 ONCE PRN Respiratory Distress Ondansetron HCl 4 mg 09/14/24 05:18 09/14/24 16:28 Ondansetron Pf 4 Mg/2 Ml Vial IV 4 mg Q6H PRN Administration Nausea And Vomiting Ondansetron HCl 4 mg 09/14/24 05:18 Ondansetron 4 Mg Rapdis Tablet SL Q6H PRN Nausea And Vomiting Oxytocin 10 unit 09/14/24 05:18 Oxytocin 10 Unit/Ml Vial IM 09/16/24 05:18 ONCE PRN Bleeding Diet Category Date Time Status Regular Consistency Diet Diet 09/14/24 05:21 Active IV Insertion/Site Date of IV Line Insertion [22g 09/14/24 right Hand] IV Insertion Time [22g right 05:45 Hand] Neurology Patient orientation (short person,place,time,situation list) Respiratory Oxygen Delivery Method Room Air
[2024-09-14] MEDS: OXYTOCIN/0.9 % SODIUM CHLORIDE 20 UNITS/1,000 ML PLAST..BAG 125 UNIT IV (20:26)
--- NOTE | 2024-09-14 20:28 | PM.OBPRCVD ---
Procedure Intrapartal events: None Induction method: per pitocin protocol Delivery augmentation: rupture of membranes and pitocin Delivery monitor: external FHT and external uterine Route of delivery: Episiotomy Description: none L&D Laceration Description: none Estimated blood loss (mL): 250 Anesthesia type: Epidural Infant Delivery date: 09/14/24 Gender: male presentation: vertex Placental delivery description: Spontaneous cord description: 3 Vessels and True Knot
[2024-09-14] MEDS: ACETAMINOPHEN 325 MG TABLET 650 MG PO (21:47)
[2024-09-15] MEDS: ACETAMINOPHEN 325 MG TABLET 650 MG PO ×3 (05:07→22:02)
--- NOTE | 2024-09-15 06:57 | P.OBPN_ITS ---
OB - PN: Subj Subjective Patient comments: no complaints and pain well controlled [place] status: doing well Exam Constitutional Vital Signs, click to edit/add: Last Vital Signs Temp 97.8 F 09/14/24 18:05 Pulse 96 H 09/14/24 22:30 Resp 16 09/14/24 08:01 BP 143/71 H 09/14/24 22:30 O2 Del Method Room Air 09/14/24 05:42 Documenting provider has reviewed patient's vital signs: yes Common normals: no apparent distress Respiratory Common normals: normal respiratory effort and clear to auscultation bilaterally Cardio Common normals: regular rate and regular rhythm GI Common normals: Normal to inspection, nondistended, normoactive bowel sounds present Extremity Common normals: no clubbing, cyanosis or edema OB - PN: A/P Plan - Vaginal Delivery day: 1 Plan: routine care Time Spent with Patient Time: Total time spent is greater than 50% in coordination of care (as documented) at patient's floor/unit and/or counseling patient: Total time spent with greater than 50% in coordination of care (as documented) at patient's floor/unit and/or counseling patient: less than 15 minutes
[2024-09-15 08:16] VITALS: BP 130/82; PULSE 101
[2024-09-15 08:25] VITALS: TEMP 36.3
[2024-09-15] MEDS: IBUPROFEN 600 MG TABLET PO ×2 (08:28→17:59)
[2024-09-15] MEDS: DOCUSATE SODIUM 100 MG CAPSULE PO ×2 (08:29→22:02)
[2024-09-15 12:33] VITALS: BP 128/75; PULSE 93
[2024-09-15 12:35] VITALS: TEMP 36.6
[2024-09-15 18:25] LABS: Hematocrit 32.2 % (36.0-48.0); Hemoglobin 10.3 g/dL (12.0-16.0); Immature Granulocytes Abs Auto 0.04 10^3/uL (0.00-0.03); Immature Granulocytes Pct Auto 0.5 % (0.0-0.5); Lymphocytes Absolute Auto 1.5 10^3/uL (1.2-3.8); Mean Corpuscular HGB Conc 32.0 g/dL (29.9-35.2); Mean Corpuscular Hemoglobin 26.9 pg (26.7-34.0); Mean Corpuscular Volume 84.1 fL (81.0-99.0); Platelet Count 151 10^3/uL (150-450); Red Blood Count 3.83 10^6/uL (4.20-5.40); White Blood Count 8.0 10^3/uL (4.0-11.0)
[2024-09-16] MEDS: IBUPROFEN 600 MG TABLET PO ×2 (01:01→10:15)
[2024-09-16 01:02] VITALS: BP 113/68; PULSE 86; TEMP 36.1
--- NOTE | 2024-09-16 08:47 | P.OBPN_ITS ---
OB - PN: Subj Subjective Patient comments: no complaints and pain well controlled [place] status: doing well Exam Constitutional Vital Signs, click to edit/add: Last Vital Signs Temp 97.0 F L 09/16/24 01:02 Pulse 86 09/16/24 01:02 Resp 16 09/16/24 01:02 BP 113/68 09/16/24 01:02 O2 Del Method Room Air 09/16/24 01:00 Documenting provider has reviewed patient's vital signs: yes Common normals: no apparent distress Respiratory Common normals: normal respiratory effort and clear to auscultation bilaterally Cardio Common normals: regular rate and regular rhythm GI Common normals: Normal to inspection, nondistended, normoactive bowel sounds present Extremity Common normals: no clubbing, cyanosis or edema and no calf tenderness Results Labs Labs: Short CBC 09/15/24 Range/Units 18:15 WBC 8.0 (4.0-11.0) 10^3/uL Hgb 10.3 L (12.0-16.0) g/dL Hct 32.2 L (36.0-48.0) % Plt Count 151 (150-450) 10^3/uL OB - PN: A/P Plan - Vaginal Delivery day: 2 Plan: routine care, discharge home and follow up 6 weeks Time Spent with Patient Time: Total time spent is greater than 50% in coordination of care (as documented) at patient's floor/unit and/or counseling patient: Total time spent with greater than 50% in coordination of care (as documented) at patient's floor/unit and/or counseling patient: less than 15 minutes
[2024-09-16 10:05] VITALS: TEMP 36.6
[2024-09-16 10:07] VITALS: BP 136/72; PULSE 100
[2024-09-16] MEDS: DOCUSATE SODIUM 100 MG CAPSULE PO (10:15)
== END 2024-09-16 14:25 | disposition home or self-care (01) | DRG 807 ==
PROVIDERS: Admitting Provider Obstetrics & Gynecology; Visit Provider Obstetrics & Gynecology
DX: O24.424 Gestational diabetes mellitus in childbirth, insulin controlled (principal); Z37.0 Single live birth; O69.2XX0 Labor and delivery complicated by other cord entanglement, with compression, not applicable or unspecified; Z3A.37 37 weeks gestation of pregnancy; Z90.49 Acquired absence of other specified parts of digestive tract; O99.214 Obesity complicating childbirth; E66.01 Morbid (severe) obesity due to excess calories
CPT/HCPCS: 36415; 59050; 59410; 80307; 82948; 85025; 85027; 86850; 86900; 86901; J2300; J2405; J2795

== ENCOUNTER 2024-11-28 21:16 | Outpatient (REF) | payer OTHER, SELFPAY ==
--- OUTSIDE RECORDS SUMMARY | 2024-11-28 13:40 | XMS_ITS | Encounter Summary ---
Author Organization [facility] Address [address] [place] [address] Care Team Providers Care Manager Of Construction Name Role Phone Marquita Kellogg MD Primary Care Provider [phone] Reason for Visit * Reason Comments Well Women Visit Encounter Details Date Type Department Care Team (Latest Contact Info) Description 11/28/2024 1:40 PM EDT Procedure Visit [facility] [address] [facility] [place] [phone] Matt Stapleton DO [address] [facility] [address] [place], [place] [id number] Well woman exam with routine gynecological exam Social History Tobacco Use Types Packs/Day Years Used Date Smoking Tobacco: Never Passive Smoke Exposure: Never Smokeless Tobacco: Never Alcohol Use Standard Drinks/Week Comments Never 0 (1 standard drink = 0.6 oz pur e alcohol) PHQ-2 Answer Date Recorded Patient Health Questionnaire-2 Score 0 11/01/2024 Comments No Sex and Gender Information Value Date Recorded Sex Assigned at Not on file Legal Sex Female 6:59 PM EDT Gender Identity Not on file Sexual Orientation Not on file documented as of this encounter Last Filed Vital Signs Vital Sign Reading Time Taken Comments Blood Pressure 120/82 11/28/2024 1:41 PM EDT Pulse - - Temperature - - Respiratory Rate - - Oxygen Saturation - - Inhaled Oxygen Concentration - - Weight 99.6 kg (219 lb 8 oz) 11/28/2024 1:41 PM EDT Height - - Body Mass Index 36.53 11/01/2024 10:54 AM EDT documented in this encounter Progress Notes * Keren SUZY Hopper - 11/28/2024 1:40 PM EDT Reason for Appointment: Patient ID: Jonna Weller is a 39 y.o. female who presents for Well Women Visit Patient presents today for Annual Exam. MEDICATIONS Current Outpatient Medications Medication Instructions buPROPion XL (WELLBUTRIN XL) 150 mg, Oral, Daily, Do not crush, chew, or split. dexmethylphenidate (FOCALIN) 10 mg, Oral, Daily dexmethylphenidate (FOCALIN) 5 mg, Oral, 2 times daily, At 3pm and 6pm etonogestrel-ethinyl estradiol (NuvaRing) 0.12-0.015 MG/24HR vaginal ring Insert vaginally and leave in place for 21 consecutive days (3 weeks), then remove. Wait for 7 days before inserting new ring. ALLERGIES Allergies Allergen Reactions Cat Dander Itching [...] bleeding Social History Tobacco Use Smoking status: Never Passive exposure: Never Smokeless tobacco: Never Substance Use Topics Alcohol use: Never Drug use: Never FAMILY HISTORY No family history on file. [...] note reviewed. Exam conducted with a manager knowledge present. Vitals: Estimated body mass index is 36.53 kg/m?? as calculated from the following: Height as of 11/01/24: 5' 5 . Weight as of this encounter: 219 lb 8 oz. BP: 120/82 Patient's last menstrual period was 11/08/2024. ASSESSMENT & PLAN ICD-10-CM 1. Well woman exam with routine gynecological exam Z01.419 Pap Smear HPV DNA probe, amplified Annual Exam: Patient presents today for an annual exam. Patient states she is doing well and has no complaints. Pap was obtained without difficulty. Orders Placed This Encounter Procedures HPV DNA probe, amplified Follow Up: Patient is to return in one year for annual unless needed otherwise. Documented by Keren Hopper LPN on behalf of: Matt Stapleton DO documented in this encounter Plan of Treatment Upcoming Encounters Date Type Department Care Team (Late st Contact Info) Description 01/03/2025 2:20 PM EDT Office Visit [facility] [place] [facility] [address] [place] [address] Ivet Tovar NP [address] [place] [address] 12/11/2025 4:00 PM EDT Procedure Visit [facility] [address] [place] [address] [place] [address] Matt Stapleton DO [address] [facility] [place] [address] Scheduled Orders Name Type Priority Associated Diagnoses Orde r Schedule Pap Smear Pathology and Cytology Routine Well woman exam with routine gynecological exam Ordered: 11/28/2024 HPV DNA probe, amplified Microbiology Routine Well woman exam with routine gynecological exam Ordered: 11/28/2024 documented as of this encounter Goals Goal Patient Goal Type Associated Problems Recent Progress Patient-Stated? Author Reminders Care Plan OB Reminders No Open Scheduling, Background documented as of this encounter Visit Diagnoses Diagnosis Well woman exam with routine gynecological exam Routine gynecological examination documented in this encounter Additional Health Concerns Active Problems Noted Date Diagnosed Date OB Reminders 04/14/2024 documented as of this encounter Care Teams Manager Of Construction Relationship Specialty Start Date End Date Marquita Kellogg MD [address] [place] [address] PCP - General Family Medicine 11/01/24 documented as of this encounter
--- OUTSIDE RECORDS SUMMARY | 2024-11-28 21:19 | XMS_ITS | Encounter Summary ---
Author Organization [facility] Address [address] [place] [address] Care Team Providers Care Grazing Aide Name Role Phone Juaquin Rae DO Primary Care Provider [phone]- [phone] Marquita Kellogg MD Primary Care Provider Encounter Details Date Type Department Care Team (Late st Contact Info) Description 02/16/2024 Abstract [facility] [address] [facility] [place] [address] Matt Stapleton DO [address] [address] [place], [place] [id number] Social History Tobacco Use Types Packs/Day Years Used Date Smoking Tobacco: Never Assessed Comments Yes Sex and Gender Information Value Date Recorded Sex Assigned at Not on file Legal Sex Female 6:59 PM EDT Gender Identity Not on file Sexual Orientation Not on file documented as of this encounter Plan of Treatment Upcoming Encounters Date Type Department Care Team (Late st Contact Info) Description 01/03/2025 2:20 PM EDT Office Visit [facility] [place] [facility] [address] [place] [address] Ivet Tovar NP [address] [place] [address] 12/11/2025 4:00 PM EDT Procedure Visit [facility] [address] [facility] [place] [address] Matt Stapleton DO [address] [place] [address] documented as of this encounter Visit Diagnoses Not on filedocumented in this encounter Care Teams Grazing Aide Relationship Specialty Start Date End Date Juaquin Rae DO [address] [place] [address] PCP - General Family Medicine 07/15/22 10/31/24 Marquita Kellogg MD [address] [place] [address] PCP - General Family Medicine 11/01/24 documented as of this encounter
--- OUTSIDE RECORDS SUMMARY | 2024-11-28 21:19 | XMS_ITS | Encounter Summary ---
Author Organization [facility] Address [address] [place] [address] Care Team Providers Care Ecommerce Merchandising Manager Name Role Phone Juaquin Rae DO Primary Care Provider +1- [phone] Marquita Kellogg MD Primary Care Provider [phone] Encounter Details Date Type Department Care Team (Late st Contact Info) Description 03/14/2024 Abstract [facility] [address] [facility] [place] [address] Matt Stapleton DO [address] [facility] [address] [place], [place] [id number] Social History Tobacco Use Types Packs/Day Years [...] [facility] [address] [place] [address] Ivet Tovar NP [address] [place] [address] 12/11/2025 4:00 PM EDT Procedure Visit [facility] [address] [facility] [place] [address] Matt Stapleton DO [address] [facility] [place] [address] documented as of this encounter Visit Diagnoses Not on filedocumented in this encounter Care Teams Ecommerce Merchandising Manager Relationship Specialty Start Date End Date Juaquin Rae DO [address] [place] [address] PCP - General Family Medicine 07/15/22 10/31/24 Marquita Kellogg MD [address] [place] [address] PCP - General Family Medicine 11/01/24 documented as of this encounter
--- OUTSIDE RECORDS SUMMARY | 2024-11-28 21:19 | XMS_ITS | Encounter Summary ---
Author Organization [facility] tem Address [id number] [address] [place] [address] Care Team Providers Care Teleprinter Installer Name Role Phone Unavailable Primary Care Provider Unavailabl e Encounter Details Date Type Department Care Team (Late st Contact Info) Description 08/03/2024 Orders Only Maternal- Medicine at [facility] [address] [place] [phone] Ref Prov, [place] [address] Social History Tobacco Use Types Packs/Day Years [...]
--- OUTSIDE RECORDS SUMMARY | 2024-11-28 21:19 | XMS_ITS | Encounter Summary ---
Author Organization [facility] tem Address [facility]-[id number] [address] [place] [address] Care Team Providers Care Oil Burner Journeyman Name Role Phone Unavailable Primary Care Provider Unavailabl e Encounter Details Date Type Department Care Team (Late st Contact Info) Description 08/04/2024 Orders Only Maternal- Medicine at [facility] [address] [place] [address] Ref Prov, [place] [address] Social History Tobacco Use Types Packs/Day Years [...]
--- OUTSIDE RECORDS SUMMARY | 2024-11-28 21:19 | XMS_ITS | Encounter Summary ---
Author Organization [facility] Address [address] [place] [address] Care Team Providers Care Project Reservoir Engineer Name Role Phone Juaquin Rae DO Primary Care Provider [phone]- [phone] Marquita Kellogg MD Primary Care Provider Encounter Details Date Type Department Care Team (Late st Contact Info) Description 08/02/2024 Abstract [facility] [address] [facility] [place] [address] Matt Stapleton DO [address] [facility] [address] [place], [place] [id number] Social History Tobacco Use Types Packs/Day Years [...] [facility] [address] [place] [address] Ivet Tovar NP [address] [place] [address] 12/11/2025 4:00 PM EDT Procedure Visit [facility] [address] [facility] [place] [address] Matt Stapleton DO [address] [facility] [place] [address] documented as of this encounter Goals Goal Patient Goal Type Associated Problems Recent Progress Patient-Stated? Author Reminders Care Plan OB Reminders No Open Scheduling, Background documented as of this encounter Visit Diagnoses Not on filedocumented in this encounter Additional Health Concerns Active Problems Noted Date Diagnosed Date OB Reminders 04/14/2024 documented as of this encounter Care Teams Project Reservoir Engineer Relationship Specialty Start Date End Date Juaquin Rae DO [address] [facility] [address] [place] [address] PCP - General Family Medicine 07/15/22 10/31/24 Marquita Kellogg MD [address] [place] [address] PCP - General Family Medicine 11/01/24 documented as of this encounter
--- OUTSIDE RECORDS SUMMARY | 2024-11-28 21:19 | XMS_ITS | Encounter Summary ---
Author Organization [facility] Address [address] [place] [address] Phone Care Team Providers Care Camera Control Operator Name Role Phone Trever Lee MD Unavailable [phone] Encounter Details Date Type Department Care Team (Late st Contact Info) Description 11/11/2023 Patient Risk Score [facility] [address] [place] [address] Social History Tobacco Use Types Packs/Day Years [...] documented as of this encounter Care Teams Camera Control Operator Relationship Specialty Start Date End Date Trever Lee MD [address] [facility], [address] [place] [address] Consulting Physician Neurology 02/19/23 documented as of this encounter
--- OUTSIDE RECORDS SUMMARY | 2024-11-28 21:19 | XMS_ITS | Encounter Summary ---
Author Organization [facility] Address [address] [place] [address] Care Team Providers Care Ergonomics Consultant Name Role Phone Juaquin Rae DO Primary Care Provider [phone]- [phone] Marquita Kellogg MD Primary Care Provider Encounter Details Date Type Department Care Team (Late st Contact Info) Description 04/05/2024 Abstract [facility] [address] [place] [address] Juaquin Rae, DO [address] [place] [address] Social History Tobacco Use Types Packs/Day Years [...] [facility] [address] [place] [address] Ivet Tovar NP [address] [place] [address] 12/11/2025 4:00 PM EDT Procedure Visit [facility] [address] [facility] [place] [address] Matt Stapleton DO [address] [facility] [place] [address] documented as of this encounter Visit Diagnoses Not on filedocumented in this encounter Care Teams Ergonomics Consultant Relationship Specialty Start Date End Date Juaquin Rae DO [address] [place] [address] PCP - General Family Medicine 07/15/22 10/31/24 Marquita Kellogg MD [address] [place] [address] PCP - General Family Medicine 11/01/24 documented as of this encounter
--- OUTSIDE RECORDS SUMMARY | 2024-11-28 21:19 | XMS_ITS | Encounter Summary ---
Author Organization [facility] Address [address] [place] [address] Phone Care Team Providers Care Fleet Manager Name Role Phone Rafaela Garrido Primary Care Provider Unavailable Rafaela Garrido Unavailable Unava Trever Peng MD Unavailable [phone] Gina Man DO Unavailable Encounter Details Date Type Department Care Team (Late st Contact Info) Description 10/09/2018 Orders Only [facility] [address] [place] [address] Conversion, Onbase Social History Tobacco Use Types [...] on filedocumented in this encounter Care Teams Fleet Manager Relationship Specialty Start Date End Date Rafaela Garrido APRN-CNP PCP - General 07/06/18 10/28/22 Rafaela Garrido APRN-CNP Office Address Unavailable as of 08/07/2022 PCP - MMO ACO PCP 03/09/21 10/06/22 [place] [address] [address] PCP - MMO ACO PCP 03/09/23 10/07/23 Trever Lee MD [address] [facility], [address] [place] [address] Consulting Physician Neurology 02/19/23 documented as of this encounter
--- OUTSIDE RECORDS SUMMARY | 2024-11-28 21:19 | XMS_ITS | Encounter Summary ---
Author Organization [facility] Address [address] [place] [address] Care Team Providers Care Ceramics Machine Operator Name Role Phone Juaquin Rae DO Primary Care Provider [phone] Marquita Kellogg MD Primary Care Provider Encounter Details Date Type Department Care Team (Late st Contact Info) Description 03/11/2024 Abstract [facility] [address] [facility] [place] [address] Matt Stapleton DO [address] [facility] [address] [place], [place] [phone] Social History Tobacco Use Types Packs/Day Years [...] Family [facility] [address] [place] [address] Ivet Tovar NP [address] [place] [address] 12/11/2025 4:00 PM EDT Procedure Visit [facility] [address] [facility] [place] [address] Matt Stapleton DO [address] [facility] [place] [address] documented as of this encounter Visit Diagnoses Not on filedocumented in this encounter Care Teams Ceramics Machine Operator Relationship Specialty Start Date End Date Juaquin Rae DO [address] [place] [address] PCP - General Family Medicine 07/15/22 10/31/24 Marquita Kellogg MD [address] [place] [address] PCP - General Family Medicine 11/01/24 documented as of this encounter
--- OUTSIDE RECORDS SUMMARY | 2024-11-28 21:19 | XMS_ITS | Encounter Summary ---
Author Organization [facility] Address [address] [place] [address] Care Team Providers Care Medical Supervisor Name Role Phone OsvaldoJuaquin dickey Amira SORIA Primary Care Provider [phone]- [phone] Marquita Kellogg MD Primary Care Provider [phone] Encounter Details Date Type Department Care Team (Late st Contact Info) Description 2023 Orders Only [facility] [address] [place] [address] Susi Hurtado MA [address] [place] [address] Social History Tobacco Use Types Packs/Day Years [...] Description 01/03/2025 2:20 PM EDT Office Visit [facility] [address] [place] [address] Ivet Tovar NP [address] [place] [address] 12/11/2025 4:00 PM EDT Procedure Visit [facility] [address] [employer] [place] [address] Matt Stapleton DO [address] [facility] [place] [address] documented as of this encounter Procedures Procedure [...] filedocumented in this encounter Care Teams Medical Supervisor Relationship Specialty Start Date End Date Juaquin Rae DO [address] [place] [address] PCP - General Family Medicine 07/15/22 10/31/24 Marquita Kellogg MD [address] [place] [address] PCP - General Family Medicine 11/01/24 documented as of this encounter
--- OUTSIDE RECORDS SUMMARY | 2024-11-28 21:19 | XMS_ITS | Continuity of Care Document ---
Author Organization Address [address] [place] [address] Insurance Providers Payer Plan Claims Address Claims Phone Policy Number Group Number Relation Employer Guarantor Name Guarantor Guarantor Address Guarantor Phone [employer] [address], [place] [id number] Self Jonna Rodriguez [address] [place] [address] [employer] [place] [address], [place] [address] [id number] Self Jonna Rodriguez 1985 [address] [place] [address] Problems Unknown Problems Results No Results Allergies, adverse reactions, alerts No known allergies and adverse reactions Medications No administered medications reported Vital Signs Date Vital Result Comment 11/30/2022 Body Height 1.613337388714 m Body Weight 92.936405541968 kg Body Mass Index 34.11 kg/m2 Social History No smoking Hx information available
--- OUTSIDE RECORDS SUMMARY | 2024-11-28 21:19 | XMS_ITS | Encounter Summary ---
Author Organization [facility] Address [address] [place] [address] Phone Care Team Providers Care Driller Portable Name Role Phone Trever Lee MD Unavailable [phone] Gina Man DO Unavailable Encounter Details Date Type Department Care Team (Late st Contact Info) Description 09/10/2023 Patient Risk Score [facility] Care Management [address] [place] [address] Social History Tobacco Use Types [...] documented as of this encounter Care Teams Driller Portable Relationship Specialty [place] [address] [facility] [address] [place] [address] PCP - MMO ACO PCP 03/09/23 10/07/23 Trever Lee MD [address] [facility], [address] [place] [address] Consulting Physician Neurology 02/19/23 documented as of this encounter
--- OUTSIDE RECORDS SUMMARY | 2024-11-28 21:19 | XMS_ITS | Encounter Summary ---
Author Organization [facility] Address [address] [place] [address] Care Team Providers Care Ground Operations Superintendent Name Role Phone Juaquin Rae DO Primary Care Provider [phone]- [phone] Marquita Kellogg MD Primary Care Provider Encounter Details Date Type Department Care Team (Late st Contact Info) Description 11/21/2023 Clinisync Result Encounter [facility] External Department Unsolicited Neisha Stapleton DO [address] [place], [place] [address] Social History Tobacco Use Types Packs/Day Years [...] [facility] [address] [place] [address] Ivet Tovar NP [address] [place] [address] 12/11/2025 4:00 PM EDT Procedure Visit [facility] [address] [address] Neisha Stapleton, DO [address] [facility] [place] [address] documented as of this encounter Procedures Procedure Name Priority Date/Time Associated Diagnosis Comments US PELVIS W/ TRANSVAGINAL 11/21/2023 9:17 AM EDT documented in this encounter Results * US PELVIS W/ TRANSVAGINAL (11/21/2023 9:17 AM EDT) Anatomical Region Laterality Modality Other 11/21/2023 9:17 AM EDT Narrative 11/21/2023 9:20 AM EDT [address] [address] Ultrasound Report Signed Patient: MICHAEL WELLER MR#: [id number] : 1985 Acct:[id number] Age/Sex: 38 / F ADM Date: 11/21/23 Loc: US Attending Dr: Neisha Stapleton D.O. Ordering Physician: Neisha Stapleton D.O. Date of Service: 11/21/23 Procedure(s): US pelvis w/ transvaginal Accession Number(s): [id number] cc: Neisha Stapleton D.O.; Physician,Non-Staff MRajeev The [address] [address] Patient Name: MICHAEL WELLER MRN: [id number] date: 1985 Sex: F Assigned Patient Location: US Current Patient Location: US Accession/Order Number: [id number] Exam Date: 11/21/2023 08:14 Report Date: 11/21/2023 [...] M.D. Signed By: 11/21/23919 DD/ 6 TD/TT: Morgue Librarian: Procedure Note Radiology, Radiologist, MD - 11/21/2023 [place] [address] Ultrasound Report Signed Patient: MICHAEL WELLER RMR#: [id number] : 1985Acct:[id number] Age/Sex: 38 / FADM Date: 11/21/23 Loc: US Attending Dr: Neisha Stapleton D.O. Ordering Physician: Neisha Stapleton D.O. Date of Service: 11/21/23 Procedure(s): US pelvis w/ transvaginal Accession Number(s): [id number] cc: Neisha Stapleton D.O.; Physician,Non-Staff Ramiro The [place] [id number] Patient Name: MICHAEL WELLER MRN: [id number] date: 1985 Sex: F Assigned Patient Location: Current Patient Location: US Accession/Order Number: [id number] Exam Date: 11/21/2023 08:14 Report Date: 11/21/2023 [...] Wolff M.D. Signed By:11/21/23919 DD/ 6 TD/TT: Morgue Librarian: us Neisha Stapleton DO [facility] Final Result documented in this encounter Visit Diagnoses Not on filedocumented in this encounter Care Teams Ground Operations Superintendent Relationship Specialty Start Date End Date Juaquin Rae DO [address] [place] [address] PCP - General Family Medicine 07/15/22 10/31/24 Marquita Kellogg MD [address] [place] [address] PCP - General Family Medicine 11/01/24 documented as of this encounter
--- OUTSIDE RECORDS SUMMARY | 2024-11-28 21:19 | XMS_ITS | Clinical Summary ---
Author Organization [facility] Address [address] [place] [address] Care Team Providers Care Print Traffic Manager Name Role Phone Marquita Kellogg MD Primary Care Provider [phone] Allergies Active Allergy Reactions Criticality Noted Date Comments Cat Dander Itching Low 11/28/2022 Latex Rash Low 08/28/2022 Loracarbef Unknown Low 08/28/2022 Other Reaction(s): Unknown Nsaids Itching,Other,Unknown Low 06/10/2016 Pt states adverse reaction of ulcers occurs advised not to take Other Reaction(s): Other Medications buPROPion XL (Wellbutrin XL) 150 MG 24 hr tabletIndications: Mood changes Take 1 tablet (150 mg) by mouth Daily Do not crush, chew, or split. 90 tablet 025 2024 Active dexmethylphenidate (Focalin) 10 MG tabletIndications: Mood changes Take 1 tablet (10 mg) by mouth Daily 90 tablet 025 Active dexmethylphenidate (Focalin) 5 MG tabletIndications: Mood changes Take 1 tablet (5 mg) by mouth 2 (two) times a day At 3pm and 6pm 180 tablet 025 Active etonogestrel-ethin yl estradiol (NuvaRing) 0.12-0.015 MG/24HR vaginal ringIndications:En counter for initial prescription of vaginal ring hormonal contraceptive Insert vaginally and leave in place for 21 consecutive days (3 weeks), then remove. Wait for 7 days before inserting new ring. 3 each 3 Active iron polysaccharides (ProFe) 391.3 (180 Fe) MG capsuleIndications :Low serum iron Take 1 capsule (391.3 mg) by mouth Daily 30 capsule 11 025 2024 Discontinued Alcohol Swabs (Alcohol Prep Pad) 70 % padsIndications:Ge stational diabetes mellitus (GDM), antepartum, gestational diabetes method of control unspecified (HHS-HCC),Elevated glucose tolerance test Apply 1 Pad topically Daily Use four times daily to check FSBS. 150 each 3 025 2024 Discontinued Blood Glucose Monitoring Suppl (D-hdtMEDIA Glucometer) w/Device kitIndications:Ges tational diabetes mellitus (GDM), antepartum, gestational diabetes method of control unspecified (HHS-HCC),Elevated glucose tolerance test 1 kit Daily Use four times daily to check FSBS. In the morning prior to breakfast & 1 hour after each meal for a total of 4times daily. 1 kit 025 2024 Discontinued insulin syringe 29G X 1/2 0.5 mL miscIndications:Ge stational diabetes mellitus (GDM), antepartum, gestational diabetes method of control unspecified (HHS-HCC) Use as instructed 100 each 4 025 2024 Discontinued Lantus SoloStar 100 UNIT/ML pen Inject 17 Units under the skin at bedtime 2024 Discontinued insulin lispro (HumaLOG) 100 UNIT/ML injection Inject 3 Units under the skin in the morning and 3 Units at noon and 3 Units in the evening. Inject with meals. 025 2024 Discontinued Hospital, Clinic, or Other Facility Administered Medication Ordered Dose Route Frequency Start Date End Date Status Levonorgestrel intrauterine device 52 mgIndications:Encounter for insertion of intrauterine contraceptive device (IUD),Encounter for insertion of Mirena IUD 52 mg IU Continuous 11/10/2024 11/09/2029 A ctive Active Problems Problem Noted Date Diagnosed Date Chronic nasopharyngitis 08/28/2022 Reflux esophagitis 08/28/2022 Submandibular gland infection 08/28/2022 Encounters Date Type Department Care Team Description 11/28/2024 1:40 PM EDT [place] [address] Neisha Stapleton DO Well woman exam with routine gynecological exam 11/28/2024 [place] [address] Neisha Stapleton, 11/10/2024 10:30 AM EDT Procedure [facility] [place] [address] Neisha Stapleton DO Encounter for insertion of intrauterine contraceptive device (IUD); Encounter for insertion of Mirena IUD; Encounter for initial prescription of vaginal ring hormonal contraceptive 11/01/2024 11:00 AM EDT Office Visit [facility] [place] [facility] [address] [place] [address] Ivet Tovar NP Encounter for medical examination to establish care (Primary Dx); History of heart murmur in childhood; Generalized anxiety disorder ; Attention deficit hyperactivity disorder (ADHD), predominantly inattentive type ; Screening for cholesterol level; Screening for heart disease; 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 [facility] [address] [place] [address] Ivet Tovar NP 11/01/2024 Travel 10/26/2024 4:00 PM ED[place] [address] Neisha Stapleton DO 6 weeks follow-up ([facility]) 10/26/2024 [place] [address] Neisha Stapleton DO 10/25/2024 Clinisync Result Encounter NOMS External Department Unsolicited Provider, Generic External Data 10/25/2024 Travel 10/12/2024 [place] [address] Jodie Ramos, LYNN Mood changes 09/20/2024 Patient Outreach [facility] [place] [address] Shea Waldron, [employer] 09/16/2024 [place] [phone] Neisha Stapleton, DO 09/15/2024 Clinisync Result Encounter NOMS External Department Unsolicited Neisha Stapleton, DO 09/15/2024 [place] [address] Jodie Ramos MA 09/14/2024 Clinisync Result Encounter NOMS External Department Unsolicited Neisha Stapleton, DO 09/08/2024 Clinisync Result Encounter NOMS External Department Unsolicited Neisha Stapleton, DO 09/06/2024 9:30 [place] [phone] Neisha Stapleton, DO Third trimester ([facility]); 36 weeks gestation of ([facility]); Excessive growth affecting management of , antepartum, single or unspecified fetus ([facility]); Insulin controlled gestational diabetes mellitus (GDM) in third trimester ([facility]); Antepartum multigravida of advanced maternal age ([facility]) 09/06/2024 [place] [address] Neisha Stapleton, DO 09/06/2024 [place] [phone] Neisha Stapleton, DO 09/05/2024 Clinisync Result Encounter NOMS External Department Unsolicited Neisha Stapleton, DO 09/03/2024 Clinisync Result Encounter NOMS External Department Unsolicited Neisha Stapleton DO 08/31/2024 11:20 AM EDT Routine [facility] [address] [place] [address] Neisha Stapleton DO 35 weeks gestation of ([facility]); Third trimester ([facility]); Excessive growth affecting management of , antepartum, single or unspecified fetus ([facility]); Multigravida of advanced maternal age in third trimester ([facility]); Insulin controlled gestational diabetes mellitus (GDM) in third trimester ([facility]) 08/31/2024 Bamboo flowsheet [facility] [place] [facility] [address] [place] [address] Neisha Stapleton DO from Last 3 Months [...] Pressure 120/82 11/28/2024 1:41 PM EDT Pulse 78 11/01/2024 10:54 AM EDT Temperature 36.9 C (98.4 F) 11/01/2024 10:54 AM EDT Respiratory Rate - - Oxygen Saturation 98% 11/01/2024 10:54 AM EDT Inhaled Oxygen Concentration - - Weight 99.6 kg (219 lb 8 oz) 11/28/2024 1:41 PM EDT Height 165.1 cm (5' 5 ) 11/01/2024 10:54 AM EDT Body Mass Index 36.53 11/01/2024 10:54 AM EDT Plan of Treatment Upcoming Encounters Date Type Department Care Team (Late st Contact Info) Description 01/03/2025 2:20 PM EDT Office Visit [facility] [place] [facility] [address] [place] [address] Ivet Tovar NP [address] [place] [address] 12/11/2025 4:00 PM EDT Procedure Visit [facility] [place] [facility] [address] [place] [phone] Neisha Stapleton, [address] [place] [address] Health Maintenance Due Date Last Done Comments Influenza Vaccine (#1) 2024 Cervical Cancer Screening 10/19/2028 HPV/Cotest 10/19/2028 10/17/2022, 08/27/2017 Pap Smear 10/19/2028 10/20/2023, 10/17/2022, 03/09 Goals Goal Patient Goal Type Associated Problems Recent Progress Patient-Stated? Author Reminders Care Plan OB Reminders No Open Scheduling, Background Procedures Procedure Name Priority Date/Time Associated Diagnosis Comments POCT , URINE Routine 11/10/2024 11:04 AM EDT Encounter for insertion of intrauterine contraceptive device (IUD) Encounter for insertion of Mirena IUD TISS PATH BX REPORT Routine 10/25/2024 2 :18 PM EDT ALL CBC WITH AUTO DIFF Routine 09/15/2024 6:15 PM EDT HP CBC WITH PLATELET NO DIFFERENTIAL Routine 09/14/2024 5:45 AM EDT TBH DRUG SCREEN RAPID (URINE) Routine 09/14/2024 5:30 AM EDT US OB BPP W NON-STRESS 09/08/2024 7:25 PM EDT POCT URINALYSIS DIPSTICK Routine 09/06/2024 9:52 AM EDT Third trimester (HHS-HCC) US OB GROWTH 09/05/2024 8:20 AM EDT US OB BPP W NON-STRESS 09/03/2024 6:07 PM EDT POCT URINALYSIS DIPSTICK Routine 08/31/2024 11:49 AM EDT 35 weeks gestation of ([facility]) Third trimester ([facility]) PAP SMEAR Routine 10/20/2023 12:00 AM EDT THINPREP PAP AND HPV MRNA E6/E7 W/RFL HPV 16,18/45 Routine 10/17/2022 8:40 AM EDT Well woman exam with routine gynecological exam from Last 3 Months or Most Recently Relevant to Health Maintenance Results * POCT , urine manually resulted (11/10/2024 11:04 AM EDT) Preg Test, Ur Negative Negative Urine 11/10/2024 11:0 4 AM EDT Neisha Daya DO POINT OF CARE TEST ENTER/EDIT OR DERABLES Final Result * TISS PATH BX REPORT (10/25/2024 2:18 PM EDT) [facility] CASE REPORT [facility] Comment: Surgical Pathology Report Case: [id number] Authorizing Provider: Tia Waddell APRN.IN SERVICE EDUCATION TEACHER Collected: 10/25/2024 02:18 PM Ordering Location: [facility] [place] Received: 10/26/2024 08:00 AM Pathologist: Florencia Osborn MD Specimen: Skin, Right 3rd Distal Dorsal Toe [facility] FINAL DIAGNOSIS [facility] Comment: A. Skin, right third distal dorsal toe, shave biopsy: - Acral compound nevus. SR/TN 2024 at 1819 EDT [facility] GROSS DESCRIPTION A. Skin [facility] Comment: Received in formalin is a 0.6 x 0.3 x 0.2 cm shave of skin. On the skin surface there is a 0.2 cm lamas-brown, slightly elevated area. The specimen is bisected. Totally submitted in one cassette. October 26, 2024 5:35 PM Gross examination performed at [facility], [address] [place] [address] [facility] CLINICAL HISTORY [facility] Comment: A) shave biopsy of 0.3 cm x 0.3 cm light to dark brown papule R/O ATN, history of MM [facility] FINAL PERFORMING LAB [facility] Comment: Diagnostic interpretation performed at: [facility], [address] [place] [address], [facility] [place] [address] CLIA# [id number] [employer] Social [employer] Teacher: Gennaro Lenz MD AP DISCLAIMER [facility] Comment: Laboratory Developed Test (LDT) Disclaimer: Performance characteristics of immunohistochemical, immunofluorescent, and chromogenic in-situ hybridization tests have been determined by the performing laboratory within [facility] Pathology and Laboratory Medicine Department ([facility], [facility], [facility], [facility], [facility], [facility], or [facility]) in a manner consistent with CLIA requirements. One or more of these tests may not have been cleared or approved by the FDA. [facility] is regulated under CLIA as qualified to perform high-complexity testing. These tests are used for clinical purposes. These should not be regarded as investigational or for research. Positive and negative controls stain appropriately. 10/25/2024 2:18 PM EDT 10/26/2024 4:18 PM EDT Narrative SHAMIKA - 2024 6:19 PM EDT Specimen Type: TISSUE SPECIMEN Ordering Facility: [facility] Address: [address] [place] [address] Original Ordering Provider: TIA WADDELL us Generic External Data Provider LAB BLOOD ORDERAB LES Final Result [facility] [place] [address] * (ABNORMAL) ALL CBC WITH AUTO DIFF (09/15/2024 6:15 PM EDT) Pathologist [facility] WBC 8.0 4.0 - 11.0 10 3/uL TBH TBH RBC 3.83(L) 4.20 - 5.40 10 6/uL TBH TBH HGB 10.3(L) 12.0 - 16.0 g/dL TBH TBH HCT 32.2(L) 36.0 - 48.0 % TBH TBH MCV 84.1 81.0 - 99.0 fL TBH TBH MCH 26.9 26.7 - 34.0 pg TBH TBH MCHC 32.0 29.9 - 35.2 g/dL TBH TBH RDW 15.4(H) 11.0 - 15.0 % TBH TBH PLT 151 150 - 450 10 3/uL TBH TBH MPV 12.4 9.5 - 13.5 fL TBH NEUTROPHILS PERCENT AUTO 72.7 43.0 - 75.0 % TBH LYMPHOCYTES PERCENT AUTO 18.2(L) 20.5 - 60.0 % TBH MONOCYTES PERCENT AUTO 8.2 1.7 - 12.0 % TBH TBH EO % 0.0(L) 0.9 - 7.0 % TBH BASOPHILS PERCENT AUTO 0.4 0.2 - 2.0 % TBH IMMATURE GRANULOCYTES PCT AUTO 0.5 0.0 - 0.5 % TBH NEUTROPHILS ABSOLUTE AUTO 5.8 1.4 - 6.5 10 3/uL TBH LYMPHOCYTES ABSOLUTE AUTO 1.5 1.2 - 3.8 10 3/uL TBH MONOCYTES ABSOLUTE AUTO 0.7 0.3 - 0.8 10 3/uL TBH TBH EO # 0.0 0.0 - 0.7 10 3/uL TBH BASOPHILS ABSOLUTE AUTO 0.0 0.0 - 0.1 10 3/uL TBH IMMATURE GRANULOCYTES ABS AUTO 0.04(H) 0.00 - 0.03 10 3/uL TBH 09/15/2024 6:15 PM EDT 09/15/2024 6:19 PM EDT Narrative CLINISYNC - 09/15/2024 6:26 PM EDT us Neisha Daya DO CLINIS[facility]NC Final [facility] * (ABNORMAL) HMHP CBC WITH PLATELET NO DIFFERENTIAL (09/14/2024 5:45 AM EDT) TBH WBC 8.0 4.0 - 11.0 10 3/uL TBH TBH RBC 4.11(L) 4.20 - 5.40 10 6/uL TBH TBH HGB 10.9(L) 12.0 - 16.0 g/dL TBH TBH HCT 33.5(L) 36.0 - 48.0 % TBH TBH MCV 81.5 81.0 - 99.0 fL TBH TBH MCH 26.5(L) 26.7 - 34.0 pg TBH TBH MCHC 32.5 29.9 - 35.2 g/dL TBH TBH RDW 15.1(H) 11.0 - 15.0 % TBH TBH PLT 145(L) 150 - 450 10 3/uL TBH TBH MPV 12.2 9.5 - 13.5 fL TBH 09/14/2024 5:45 AM EDT 09/14/2024 6:22 AM EDT Narrative CLINISYNC - 09/14/2024 6:29 AM EDT us Neisha Stapleton DO CLINISYNC Final Result [facility]NC [facility] * TB DRUG SCREEN RAPID (URINE) (09/14/2024 5:30 AM EDT) CANNABINOID SCREEN URINE NEGATIVE NEGATIVE TBH PHENCYCLIDINE SCREEN URINE NEGATIVE NEGATIVE TBH COCAINE SCREEN URINE NEGATIVE NEGATIVE TBH METHAMPHETAMINES SCREEN URINE NEGATIVE NEGATIVE TBH OPIATE SCREEN URINE NEGATIVE NEGATIVE TBH AMPHETAMINE SCREEN URINE NEGATIVE NEGATIVE TBH BENZODIAZEPINES SCREEN URINE NEGATIVE NEGATIVE TBH TRICYCLIC ANTIDEPRESSANT URINE NEGATIVE NEGATIVE TBH METHADONE SCREEN URINE NEGATIVE NEGATIVE TBH BARBITURATES SCREEN URINE NEGATIVE NEGATIVE TBH OXYCODONE SCREEN URINE NEGATIVE NEGATIVE TBH BUPRENORPHINE SCREEN URINE NEGATIVE NEGATIVE TBH Comment: DRUG CLASS TEST SYSTEM CUT-OFF CONCENTRATIONS ARE FOLLOWS: AMP (Amphetamine): 500 ng/mL BAR (Barbiturates): 200 ng/mL BZO (Benzodiazepines): 150 ng/mL BUP (Buprenorphine): 10 ng/mL LOU (Cocaine): 150 ng/mL mAMP (Methamphetamine): 500 ng/mL MTD (Methadone): 200 ng/mL OPI (Opiates): 100 ng/mL OXY (Oxycodone): 100 ng/mL PCP (Phencyclidine): 25 ng/mL THC (Cannabinoids): 50 ng/mL TCA (Trycyclic Antidepressants): 300 ng/mL 09/14/2024 5:30 AM EDT 09/14/2024 6:22 AM EDT Narrative CLINISYNC - 09/14/2024 6:36 AM EDT us Neisha Stapleton DO CLINISYTX Final Result [facility] * US OB BPP W NON-STRESS (09/08/2024 7:25 PM EDT) Only the most recent of2 resultswithin the time period is included. Anatomical Region Laterality Modality Other 09/08/2024 7:25 PM EDT Narrative 09/08/2024 7:27 [place] [address] Ultrasound Report Signed Patient: MICHAEL WELLER MR#: [id number] : 1985 Acct:[id number] Age/Sex: 38 / F ADM Date: 09/08/24 Loc: US Attending Dr: Neisha Stapleton D.O. Ordering Physician: Neisha Stapleton D.O. Date of Service: 09/08/24 Procedure(s): US OB BPP w non-stress Accession Number(s): [id number] cc: Neisha Stapleton D.O.; Physician,Non-Staff M.Cristal [address] [address] Patient Name: MICHAEL WELLER MRN: [id number] date: 1985 Sex: F Assigned Patient Location: [facility] Current Patient Location: Accession/Order Number: [id number] Exam Date: 09/08/2024 19:24 Report Date: 09/08/2024 [...] Villegas M.D. 09/08/2024 7:25 PM Dictation Location: [employer] Electronically authenticated by: [id number] Y Date: 09/08/2024 19:25 Dictated By: Roddy Villegas D.O. Signed By: 09/08/241926 DD/ 24 TD/TT: Fruit Sorter: Procedure Note Radiology, Radiologist, MD - 09/08/2024 [place] [address] Ultrasound Report Signed Patient: MICHAEL WELLER RMR#: [id number] : 1985Acct:[id number] Age/Sex: 38 / FADM Date: 09/08/24 Loc: US Attending Dr: Neisha Stapleton D.O. Ordering Physician: Neisha Stapleton D.O. Date of Service: 09/08/24 Procedure(s): US OB BPP w non-stress Accession Number(s): [id number] cc: Neisha Stapleton D.O.; Physician,Non-Staff Ramiro The [place] [id number] Patient Name: MICHAEL WELLER MRN: [id number] date: 1985 Sex: F Assigned Patient Location: [facility] Current Patient Location: Accession/Order Number: [id number] Exam Date: 09/08/2024 19:24 Report Date: 09/08/2024 [...] Villegas M.D. 09/08/2024 7:25 PM Dictation Location: [facility] Electronically authenticated by: [id number] Y Date: :25 Dictated By: Roddy Villegas D.O. Signed By:09/08/241926 DD/ 24 TD/TT: Fruit Sorter: us Neisha Daya DO CLINISYNC IMAGING Final Result * (ABNORMAL) POCT urinalysis dipstick manually resulted (09/06/2024 9:52 AM EDT) Only the most recent of2 resultswithin the time period is included. Color, [...] Urine 09/06/2024 9:52 AM EDT us Neisha Daya DO POINT OF CARE TEST ENTER/EDIT OR DERABLES Final Result * US OB GROWTH (09/05/2024 8:20 AM EDT) Anatomical Region Laterality Modality Other 09/05/2024 8:20 AM EDT Narrative 09/05/2024 8:22 AM EDT The [address] [address] Ultrasound Report Signed Patient: MICHAEL WELLER MR#: [id number] : 1985 Acct:[id number] Age/Sex: 38 / F ADM Date: 09/02/24 Loc: US Attending Dr: Neisha Stapleton D.O. Ordering Physician: Neisha Stapleton D.O. Date of Service: 09/02/24 Procedure(s): US OB growth Accession Number(s): [id number] cc: Neisha Stapleton D.O.; Physician,Non-Staff Ramiro The [address] [address] Patient Name: MICHAEL WELLER MRN: [id number] date: 1985 Sex: F Assigned Patient Location: US Current Patient Location: Accession/Order Number: [id number] Exam Date: 09/05/2024 08:14 Report Date: 09/05/2024 [...] Holden M.D. 09/05/2024 8:20 AM Dictation Location: [place] [address] Electronically authenticated by: [id number] Y Date: 09/05/2024 08:20 Dictated By: Bisi Holden M.D. Signed By: 09/05/24821 DD/ 9 TD/TT: Fruit Sorter: Procedure Note Radiology, Radiologist, MD - 09/05/2024 [place] [address] Ultrasound Report Signed Patient: MICHAEL WELLER RMR#: [id number] : 1985Acct:[id number] Age/Sex: 38 / FADM Date: 09/02/24 Loc: US Attending Dr: Neisha Stapleton D.O. Ordering Physician: Neisha Stapleton D.O. Date of Service: 09/02/24 Procedure(s): US OB growth Accession Number(s): [id number] cc: Neisha Stapleton D.O.; Physician,Non-Staff Ramiro The [place] [id number] Patient Name: MICHAEL WELLER MRN: [id number] date: 1985 Sex: F Assigned Patient Location: US Current Patient Location: Accession/Order Number: [id number] Exam Date: 09/05/2024 08:14 Report Date: 09/05/2024 [...] Holden M.D. 09/05/2024 8:20 AM Dictation Location: [place] [address] Electronically authenticated by: [id number] Y Date: 508:20 Dictated By: Bisi Holden M.D. Signed By:09/05/24821 DD/ 9 TD/TT: Fruit Sorter: Neisha Stapleton DO CLINISYNC IMAGING Final Result * Pap Smear (10/20/2023 12:00 AM EDT) Swab Cervical swab / Unknown Neisha Stapleton DO LAB CYTOLOGY ORDERABLES Final Re sult Performing Organization Address [facility]/ZIP Co de Phone Number EXTERNAL LAB * THINPREP PAP AND HPV MRNA E6/E7 W/RFL HPV 16,18/45 (10/17/2022 8:40 AM EDT) [facility] BLOOD ORDERABLES Final Resul t EXTERNAL LAB from Last 3 Months or Most Recently Relevant to Health Maintenance Additional Health Concerns Active Problems Noted Date Diagnosed Date OB Reminders 04/14/2024 [place] [address] [employer] Care Teams Print Traffic Manager Relationship Specialty Start Date End Date Marquita Kellogg MD [address] [place] [address] PCP - General Family Medicine 11/01/24
--- OUTSIDE RECORDS SUMMARY | 2024-11-28 21:19 | XMS_ITS | Encounter Summary ---
Author Organization [facility] Address [address] [place] [address] Care Team Providers Care Print Developer Automatic Name Role Phone Juaquin Rae DO Primary Care Provider [phone] Marquita Kellogg MD Primary Care Provider [phone] Encounter Details Date Type Department Care Team (Late st Contact Info) Description 01/30/2024 Clinisync Result Encounter [facility] External Department Unsolicited Neisha Stapleton DO [address] [place], [place] [id number] Social History Tobacco Use Types Packs/Day Years [...] [facility] [address] [place] [phone] Ivet Tovar NP [address] [place] [address] 12/11/2025 4:00 PM EDT Procedure Visit [facility] [place] [facility] [address] [place] [address] Neisha Stapleton, DO [address] [place] [address] [place] [address] documented as of this encounter Procedures Procedure Name Priority Date/Time Associated Diagnosis Comments US OB TRANSVAGINAL 01/30/2024 7: 28 AM EST documented in this encounter Results * US OB TRANSVAGINAL (01/30/2024 7:28 AM EST) Anatomical Region Laterality Modality Other 01/30/2024 7:28 AM EST Narrative 01/30/2024 7:31 AM EST [address] [address] Ultrasound Report Signed Patient: MICHAEL WELLER MR#: [id number] : 1985 Acct:[id number] Age/Sex: 38 / F ADM Date: 01/29/24 Loc: US Attending Dr: Neisha Stapleton D.O. Ordering Physician: Neisha Stapleton D.O. Date of Service: 01/29/24 Procedure(s): US OB transvaginal Accession Number(s): [id number] cc: Neisha Stapleton D.O.; Physician,Non-Staff MRajeev The [address] [address] Patient Name: MICHAEL WELLER MRN: [id number] date: 1985 Sex: F Assigned Patient Location: US Current Patient Location: Accession/Order Number: [id number] Exam Date: 01/29/2024 16:10 Report Date: 01/30/2024 [...] M.D. Signed By: 01/30/24730 DD/ 7 TD/TT: Condominium Property Manager: Procedure Note Radiology, Radiologist, MD - 01/30/2024 [place] [address] Ultrasound Report Signed Patient: MICHAEL WELLER RMR#: [id number] : 1985Acct:[id number] Age/Sex: 38 / FADM Date: 01/29/24 Loc: US Attending Dr: Neisha Stapleton D.O. Ordering Physician: Neisha Stapleton D.O. Date of Service: 01/29/24 Procedure(s): US OB transvaginal Accession Number(s): [id number] cc: Neisha Stapleton D.O.; Physician,Non-Staff MRajeev The [place] [address] Patient Name: MICHAEL WELLER MRN: [id number] date: 1985 Sex: F Assigned Patient Location: US Current Patient Location: Accession/Order Number: [id number] Exam Date: 01/29/2024 16:10 Report Date: 01/30/2024 [...] Wolff M.D. Signed By:01/30/24730 DD/ 7 TD/TT: Condominium Property Manager: us Neisha Daya DO CLINISYNC IMAGING Final Result documented in this encounter Visit Diagnoses Not on filedocumented in this encounter Care Teams Print Developer Automatic Relationship Specialty Start Date End Date Juaquin Rae DO [address] [facility] [address] [place] [address] PCP - General Family Medicine 07/15/22 10/31/24 Marquita Kellogg MD [address] [place] [address] PCP - General Family Medicine 11/01/24 documented as of this encounter
--- OUTSIDE RECORDS SUMMARY | 2024-11-28 21:19 | XMS_ITS | Encounter Summary ---
Author Organization [facility] Address [address] [place] [address] Care Team Providers Care Timber Framer Name Role Phone Juaquin Rae DO Primary Care Provider [phone]- [phone] Marquita Kellogg MD Primary Care Provider [phone] Encounter Details Date Type Department Care Team (Late st Contact Info) Description 06/06/2024 Abstract [facility] [address] [place] [address] Maria Victoria Zelaya LPN Social History [...] [facility] [address] [place] [address] Ivet Tovar NP [address] [place] [address] 12/11/2025 4:00 PM EDT Procedure Visit [facility] [address] [place] [address] Matt Stapleton DO [address] [facility] [place] [address] documented as of this encounter Goals Goal Patient Goal Type Associated Problems Recent Progress Patient-Stated? Author Reminders Care Plan OB Reminders No Open Scheduling, Background documented as of this encounter Visit Diagnoses Not on filedocumented in this encounter Additional Health Concerns Active Problems Noted Date Diagnosed Date OB Reminders 04/14/2024 documented as of this encounter Care Teams Timber Framer Relationship Specialty Start Date End Date Juaquin Rea DO [address] [place] [address] PCP - General Family Medicine 07/15/22 10/31/24 Marquita Kellogg MD [address] [place] [address] PCP - General Family Medicine 11/01/24 documented as of this encounter
--- OUTSIDE RECORDS SUMMARY | 2024-11-28 21:19 | XMS_ITS | Encounter Summary ---
Author Organization [facility] Address [address] [place] [address] Phone Care Team Providers Care Head Holder Name Role Phone Trever Lee MD Unavailable [phone] Encounter Details Date Type Department Care Team (Late st Contact Info) Description 10/11/2023 Patient Risk Score [facility] Care Management [address] [place] [address] Social History Tobacco Use Types Packs/Day Years [...] documented as of this encounter Care Teams Head Holder Relationship Specialty Start Date End Date Trever Lee MD [address] [facility], [address] [place] [address] Consulting Physician Neurology 02/19/23 documented as of this encounter
--- OUTSIDE RECORDS SUMMARY | 2024-11-28 21:19 | XMS_ITS | Encounter Summary ---
Author Organization [facility] Address [address] [place] [address] Care Team Providers Care Oncology Admin Name Role Phone Juaquin Rae DO Primary Care Provider [phone]- [phone] Marquita Kellogg MD Primary Care Provider Encounter Details Date Type Department Care Team (Late st Contact Info) Description 04/14/2024 Abstract [facility] [address] [facility] [place] [address] Matt Stapleton DO [address] [facility] [address] [place], [place] [id number] Social History Tobacco Use Types Packs/Day Years [...] [facility] [address] [place] [phone] Ivet Tovar NP [address] [place] [address] 12/11/2025 4:00 PM EDT Procedure Visit [facility] [address] [facility] [place] [address] Matt Stapleton DO [address] [facility] [place] [address] documented as of this encounter Goals Goal Patient Goal Type Associated Problems Recent Progress Patient-Stated? Author Reminders Care Plan OB Reminders No Open Scheduling, Background documented as of this encounter Visit Diagnoses Not on filedocumented in this encounter Additional Health Concerns Active Problems Noted Date Diagnosed Date OB Reminders 04/14/2024 documented as of this encounter Care Teams Oncology Admin Relationship Specialty Start Date End Date Juaquin Rae DO [address] [facility] [address] [place] [address] PCP - General Family Medicine 07/15/22 10/31/24 Marquita Kellogg MD [address] [place] [address] PCP - General Family Medicine 11/01/24 documented as of this encounter
--- OUTSIDE RECORDS SUMMARY | 2024-11-28 21:19 | XMS_ITS | Encounter Summary ---
Author Organization [facility] Address [address] [place] [address] Care Team Providers Care Geophysical Manager Name Role Phone Juaquin Rae DO Primary Care Provider [phone]- [phone] Marquita Kellogg MD Primary Care Provider [phone] Encounter Details Date Type Department Care Team (Late st Contact Info) Description 08/02/2024 Abstract [facility] [address] [facility] [place] [address] Matt Stapleton DO [address] [facility] [address] [place], [place] [id number] Social History Tobacco Use Types Packs/Day Years [...] [facility] [address] [place] [phone] Ivet Tovar NP [address] [place] [address] 12/11/2025 4:00 PM EDT Procedure Visit [facility] [address] [facility] [place] [address] Matt Stapleton DO [address] [facility] [place] [address] documented as of this encounter Goals Goal Patient Goal Type Associated Problems Recent Progress Patient-Stated? Author Reminders Care Plan OB Reminders No Open Scheduling, Background documented as of this encounter Visit Diagnoses Not on filedocumented in this encounter Additional Health Concerns Active Problems Noted Date Diagnosed Date OB Reminders 04/14/2024 documented as of this encounter Care Teams Geophysical Manager Relationship Specialty Start Date End Date Juaquin Rae DO [address] [facility] [address] [place] [address] PCP - General Family Medicine 07/15/22 10/31/24 Marquita Kellogg MD [address] [place] [address] PCP - General Family Medicine 11/01/24 documented as of this encounter
--- OUTSIDE RECORDS SUMMARY | 2024-11-28 21:19 | XMS_ITS | Encounter Summary ---
Author Organization [facility] Address [address] [place] [address] Care Team Providers Care Beater Dumper Name Role Phone Juaquin Rae DO Primary Care Provider [phone] Marquita Kellogg MD Primary Care Provider [phone] Encounter Details Date Type Department Care Team (Late st Contact Info) Description 07/01/2024 Results Follow-Up [facility] [address] [facility] [place] [address] Cathy Dick LPN [address] [place] [address] ALL CBC WITH AUTO DIFF, GLUCOSE 1 HOUR Social History Tobacco Use Types Packs/Day Years [...] [place] [facility] [address] [place] [address] Ivet Tovar NP [address] [place] [address] 12/11/2025 4:00 PM EDT Procedure Visit [facility] [place] [facility] [address] [facility] [address] Matt Stapleton DO [address] [facility] [place] [address] documented as of this encounter Goals Goal Patient Goal Type Associated Problems Recent Progress Patient-Stated? Author Reminders Care Plan OB Reminders No Open Scheduling, Background documented as of this encounter Visit Diagnoses Not on filedocumented in this encounter Additional Health Concerns Active Problems Noted Date Diagnosed Date OB Reminders 04/14/2024 documented as of this encounter Care Teams Beater Dumper Relationship Specialty Start Date End Date Juaquin Rae DO [address] [place] [address] PCP - General Family Medicine 07/15/22 10/31/24 Marquita Kellogg MD [address] [place] [address] PCP - General Family Medicine 11/01/24 documented as of this encounter
--- OUTSIDE RECORDS SUMMARY | 2024-11-28 21:19 | XMS_ITS | Encounter Summary ---
Author Organization [facility] Address [address] [place] [address] Care Team Providers Care Nylon Machine Operator Name Role Phone Juaquin Rae DO Primary Care Provider [phone] Marquita Kellogg MD Primary Care Provider [phone] Encounter Details Date Type Department Care Team (Late st Contact Info) Description 02/09/2024 Clinisync Result Encounter [facility] External Department Unsolicited Neisha Stapleton DO [address] [place], [place] [id number] Social History Tobacco Use Types Packs/Day Years [...] [facility] [address] [place] [address] Ivet Tovar NP [address] [place] [address] 12/11/2025 4:00 PM EDT Procedure Visit [facility] [address] [place] [address] Neisha Stapleton, DO [address] [place] [address] [place] [address] documented as of this encounter Procedures Procedure Name Priority Date/Time Associated Diagnosis Comments US OB TRANSVAGINAL 02/09/2024 10 :09 AM EST documented in this encounter Results * US OB TRANSVAGINAL (02/09/2024 10:09 AM EST) Anatomical Region Laterality Modality Other 02/09/2024 10:0 9 AM EST Narrative 02/09/2024 10:12 AM EST [address] [address] Ultrasound Report Signed Patient: MICHAEL WELLER MR#: [id number] : 1985 Acct:[id number] Age/Sex: 38 / F ADM Date: 02/09/24 Loc: [facility] Attending Dr: Neisha Stapleton D.O. Ordering Physician: Neisha Stapleton D.O. Date of Service: 02/09/24 Procedure(s): US OB transvaginal Accession Number(s): [id number] cc: Neisha Stapleton D.O.; Physician,Non-Staff Ramiro [address] [id number] Patient Name: MICHAEL WELLER MRN: [id number] date: 1985 Sex: F Assigned Patient Location: [facility] Current Patient Location: [facility] Accession/Order Number: [id number] Exam Date: 02/09/2024 09:06 Report Date: 02/09/2024 [...] Signed By: 02/09/24 1012 DD/ 1009 TD/TT: Chalk Tester: Procedure Note Radiology, Radiologist, MD - 02/09/2024 [place] [address] Ultrasound Report Signed Patient: MICHAEL WELLER RMR#: [id number] : 1985Acct:[id number] Age/Sex: 38 / FADM Date: 02/09/24 Loc: [facility] Attending Dr: Neisha Stapleton D.O. Ordering Physician: Neisha Stapleton D.O. Date of Service: 02/09/24 Procedure(s): US OB transvaginal Accession Number(s): [id number] cc: Neisha Stapleton D.O.; Physician,Non-Staff Ramiro The [address] [address] Patient Name: MICHAEL WELLER MRN: [facility]:[id number] date: 1985 Sex: F Assigned Patient Location: [facility] Current Patient Location: [facility] Accession/Order Number: [id number] Exam Date: 02/09/2024 09:06 Report Date: 02/09/2024 [...] M.D. Signed By:02/09/24 1012 DD/ 1009 TD/TT: Chalk Tester: us Neisha Daya DO [facility] Final Result documented in this encounter Visit Diagnoses Not on filedocumented in this encounter Care Teams Nylon Machine Operator Relationship Specialty Start Date End Date Juaquin Rae DO [address] [place] [address] PCP - General Family Medicine 07/15/22 10/31/24 Marquita Kellogg MD [address] [place] [address] PCP - General Family Medicine 11/01/24 documented as of this encounter
--- OUTSIDE RECORDS SUMMARY | 2024-11-28 21:20 | XMS_ITS | Encounter Summary ---
Author Organization [facility] Address [address] [place] [address] Care Team Providers Care Commercial Photographer Name Role Phone Juaquin Rae DO Primary Care Provider [phone] Marquita Kellogg MD Primary Care Provider [phone] Encounter Details Date Type Department Care Team (Late st Contact Info) Description 09/15/2024 Abstract [facility] [address] [facility] [place] [address] Jodie Ramos MA Social History Tobacco Use Types Packs/Day Years [...] [facility] [address] [place] [address] Ivet Tovar NP [address] [place] [address] 12/11/2025 4:00 PM EDT Procedure Visit [facility] [address] [place] [address] Matt Stapleton DO [address] [facility] [place] [address] documented as of this encounter Goals Goal Patient Goal Type Associated Problems Recent Progress Patient-Stated? Author Reminders Care Plan OB Reminders No Open Scheduling, Background documented as of this encounter Visit Diagnoses Not on filedocumented in this encounter Additional Health Concerns Active Problems Noted Date Diagnosed Date OB Reminders 04/14/2024 documented as of this encounter Care Teams Commercial Photographer Relationship Specialty Start Date End Date Juaquin Rae DO [address] [place] [address] PCP - General Family Medicine 07/15/22 10/31/24 Marquita Kellogg MD [address] [place] [address] PCP - General Family Medicine 11/01/24 documented as of this encounter
--- OUTSIDE RECORDS SUMMARY | 2024-11-28 21:20 | XMS_ITS | Encounter Summary ---
Author Organization [facility] Address [address] [place] [address] Phone Care Team Providers Care Global Product Manager Name Role Phone Trever Lee MD Unavailable Gina Man DO Unavailable Encounter Details Date Type Department Care Team (Late st Contact Info) Description 06/11/2023 Patient Risk Score [facility] Care Management [address] [place] [address] Social History Tobacco Use Types [...] documented as of this encounter Care Teams Global Product Manager Relationship Specialty [place] [address] [facility] [address] [place] [address] PCP - MMO ACO PCP 03/09/23 10/07/23 Trever Lee MD [address] [facility], [address] [place] [address] Consulting Physician Neurology 02/19/23 documented as of this encounter
--- OUTSIDE RECORDS SUMMARY | 2024-11-28 21:20 | XMS_ITS | Encounter Summary ---
Author Organization [facility] Address [address] [place] [address] Care Team Providers Care Money Manager Name Role Phone Juaquin Rae DO Primary Care Provider [phone]- [phone] Marquita Kellogg MD Primary Care Provider Encounter Details Date Type Department Care Team (Late st Contact Info) Description 09/16/2024 Abstract [facility] [address] [facility] [place] [address] Matt Stapleton DO [address] [facility] [address] [place] [place], [place] [id number] Social History Tobacco Use Types Packs/Day Years [...] [facility] [address] [place] [address] Ivet Tovar NP [address] [place] [address] 12/11/2025 4:00 PM EDT Procedure Visit [facility] [address] [facility] [place] [address] Matt Stapleton DO [address] [facility] [place] [place] [address] documented as of this encounter Goals Goal Patient Goal Type Associated Problems Recent Progress Patient-Stated? Author Reminders Care Plan OB Reminders No Open Scheduling, Background documented as of this encounter Visit Diagnoses Not on filedocumented in this encounter Additional Health Concerns Active Problems Noted Date Diagnosed Date OB Reminders 04/14/2024 documented as of this encounter Care Teams Money Manager Relationship Specialty Start Date End Date Juaquin Rae DO [address] [facility] [address] [place] [address] PCP - General Family Medicine 07/15/22 10/31/24 Marquita Kellogg MD [address] [place] [address] PCP - General Family Medicine 11/01/24 documented as of this encounter
--- OUTSIDE RECORDS SUMMARY | 2024-11-28 21:20 | XMS_ITS | Encounter Summary ---
Author Organization [facility] Address [address] [place] [address] Phone Care Team Providers Care Supercharger Mechanic Name Role Phone Trever Lee MD Unavailable [phone] Gina Man DO Unavailable Encounter Details Date Type Department Care Team (Late st Contact Info) Description 11/09/2022 Patient Risk Score [facility] [address] [facility] [address] [place] [address] Social History Tobacco Use Types Packs/Day Years [...] on filedocumented in this encounter Care Teams Supercharger Mechanic Relationship Specialty [place] [address] [facility] [address] [place] [address] PCP - MMO ACO PCP 03/09/23 10/07/23 Trever Lee MD [address] [facility], [address] [place], [place] [address] Consulting Physician Neurology 02/19/23 documented as of this encounter
--- OUTSIDE RECORDS SUMMARY | 2024-11-28 21:20 | XMS_ITS | Encounter Summary ---
Author Organization [facility] Address [address] [place] [address] Phone Care Team Providers Care Irrigationist Designer Name Role Phone Rafaela Garrido Primary Care Provider Unavailable Trever Lee MD Unavailable [phone] Gina Man DO Unavailable Encounter Details Date Type Department Care Team (Late st Contact Info) Description 10/09/2022 Patient Risk Score [facility] [address] [place] [address] Social History Tobacco Use Types [...] on filedocumented in this encounter Care Teams Irrigationist Designer Relationship Specialty Start Date End Date Rafaela Garrido APRN-CNP PCP - General 07/06/18 10/28/22 [place] [address] [place] [address] PCP - MMO ACO PCP 03/09/23 10/07/23 Trever Lee MD [address] [facility], [address] [place], [place] [address] Consulting Physician Neurology 02/19/23 documented as of this encounter
--- OUTSIDE RECORDS SUMMARY | 2024-11-28 21:20 | XMS_ITS | Encounter Summary ---
Author Organization [facility] Address [address] [place] [address] Phone Care Team Providers Care Soft Work Cigar Machine Operator Name Role Phone Trever Lee MD Unavailable Gina Man DO Unavailable Encounter Details Date Type Department Care Team (Late st Contact Info) Description 02/20/2023 Scanned Document [facility] [address] [facility] [address] [place] [address] Trever Lee MD [address] [facility], [facility] [address] [place], [place] [address] Social History Tobacco Use Types Packs/Day Years [...] documented as of this encounter Care Teams Soft Work Cigar Machine Operator Relationship Specialty [place] [address] [facility] [address] [place], [place] [phone] PCP - MMO ACO PCP 03/09/23 10/07/23 Trever Lee MD [address] [facility], [facility] [address] [place] [address] Consulting Physician Neurology 02/19/23 documented as of this encounter
--- OUTSIDE RECORDS SUMMARY | 2024-11-28 21:20 | XMS_ITS | CCD ---
Author Organization [facility] Care Team Providers Care Practice Billing Associate Name Role Phone Rafaela Arguello Unavailable Unavailable [id number], [facility] Unavailable Unavailable Rafaela Arguello Unavailable Unavailable Zackary Gomez Unavailable Unavailable Rafaela Arguello Unavailable Unavailable Rafaela Arguello Unavailable Unavailable Zackary Gomez Unavailable Unavailable Rafaela Arguello Unavailable Unavailable Unavailable DAYA, DR DRIVER Admitting Unavailable DAYA, DR DRIVER Primary Care Unavailable DAYA, DR DRIVER Attending Unavailable DAYA, DR DRIVER Consulting Unavailable Nardinliliana Noemi Consulting Unavailable DAYA, DR DRIVER Admitting Unavailable DAYA, DR DRIVER Attending Unavailable DAYA, DR RDIVER Consulting Unavailable REQUEST, DR NONE LISTED Primary [...] Attending Provider Hema, Ms. Rafaela Schultz Referring Aisah Arguello, Ms. Rafaela Schultz Primary Care Unavai kaye Arguello, Ms. Rafaela Schultz Attending Unavai labtaryn Arguello, MsJoanthan Schultz Primary Care Unavai lable Hema, MsJonathan Schultz Attending Unavai lable Hema, MsJonathan Schultz Referring Unavai lable Arguello, MsJonathan Schultz Referring Unavai labtaryn Arguello, Ms. Rafaela Schultz Primary Care Unavai labtaryn Arguello, MsJonathan Schultz Attending Azaeli kaye Arguello, MsJonathan Schultz Referring Unavai labtaryn Arguello, MsJonathan Schultz Primary Care Aisha Aguilar, Luz Coombs Attending Unavailable Hema, MsJonathan Schultz Primary Care Aisha Aguilar, Luz Coombs Attending Unavailable Lauren, Luz Coombs Referring Unavailable Bolivar Sherman Unavailable DO Danielle Infante Primary Care Provider [phone] SCOTT Sherman Attending Provider Karolina Man DO Primary Care Provider [phone] Jhonny Issa MD Unavailable [phone] Donovan SORIA, Karolina Cota Unavailable KAROLINA MAN Attending Unavailable KAROLINA MAN Primary Care Unavailable JHONNY ISSA Attending Unavailable KAROLINA MAN Referring Unavailable KAROLINA MAN Primary Care Unavailable KAROLINA MAN Attending Unavailable KAROLINA MAN Primary Care Unavailable JHONNY ISSA Attending Unavailable DONOVAN, KAROLINA Cota Primary Care Unavailable JHONNY ISSA Attending Unavailable KAROLINA MAN Primary Care Unavailable Danielle Infante DO Primary Care Provid er Nathaly, CULINARY ASSISTANT Swetha Avila Attending Provider KAROLINA MAN Referring Unavailable KAROLINA MAN Primary Care Unavailable KAROLINA MAN Referring Unavailable KAROLINA MAN Primary Care Unavailable MARYANN DAVISON Attending Unava ilable Danielle Infante DO Primary Care Provider Matt Stapleton Attending Unavailable Matt Stapleton Admitting Unavailable NO FAMILY, PHYSICIAN Primary Care Unavailable Nathaly, Swetha Avila Attending Unavailable Swetha Andersen Admitting Unavailable Daya DO, Matt Attending Provider [phone] Unavailable Primary Care Provider UnavailIGNACIA Quiñones Attending Unavailable DAYA, MATT R Referring Unavailable LUCRETIA VILLAFANA Attending Unavailable DAYA, MATT R Referring Unavailable KEYUR NARAYANAN Attending Unavailable SELF Referring Unavailable DANIELLE INFANTE Primary Care Aisha Kellogg MD, Marquita Avila Primary Care Provider Danielle Infante DO Primary Care Provider [phone] MERARY WILCOX Attending Unavailable MERARY WILCOX Referring Unavailable DAYA, MATT Attending Unavailable DAYA, MATT Attending Unavailable BENTLEY FUCHS Referring Unavailable DAYA, MATT Attending Unavailable DAYA, MATT Attending Unavailable DAYA, MATT Referring Unavailable DAYA, MATT Attending Unavailable DAYA, MATT Attending Unavailable DAYA, MATT Attending Unavailable DAYA, MATT Attending Unavailable ALEX CHENG Attending Unavailable DAYA, MATT Attending Unavailable DAYA, MATT Attending Unavailable Allergies Allergy Classification Reported Allergen(s) Allergy Type Date of Onset Reaction(s) Facility Cephalosporins (antibiotic) (1 source) loracarbef Drug Allergy [facility] Work Phone: Latex (1 source) natural latex rubber Substance Allergy [facility] Work Phone: NSAIDs (1 source) NSAIDs Drug Allergy [facility] Work Phone: (20 sources) loracarbef; Translations: [loracarbef] Drug Allergy 08-29-19 Unknown [id number] Work Phone: (20 sources) natural latex rubber; Translations: [LATEX] Allergy to substance (finding) 08-29-19 [facility] 3 Repository (20 sources) NSAIDs; Translations: [NSAIDs] Allergy to drug (finding) Unknown [id number] Work Phone: (20 sources) Animal dander - Cats Allergy to substance (finding) [id number] [facility] Work Phone: (2 sources) Latex Drug allergy (disorder) [facility] Repository (1 source) loracarbef Drug Allergy [facility] Repository (18 sources) NSAIDs; Translations: [NSAIDS (NON-STEROIDAL ANTI-INFLAMMATOR Y DRUG)] Drug allergy (disorder) 06-11-19 17 [facility] Repository (7 sources) Non-steroidal anti-inflammator y agent Propensity to adverse reactions to drug 06-11-19 Other: See Comments, Other [facility] (20 sources) Latex Propensity to adverse reactions 08-29-19 23 Unknown, Rash Oppex Other (20 sources) Cat Dander; Translations: [CAT DANDER] Allergy to substance 11-29-19 Unknown, Itching [facility] (4 sources) NSAIDS (Non-Steroidal Anti-Inflamma; Translations: [NSAIDS (Non-Steroidal Anti-Inflamma] Allergy to substance 09-05-19 Itching [facility] (3 sources) CAT HAIR STANDARDIZED ALLERGENIC EXTRACT; Translations: [CAT HAIR STANDARDIZED ALLERGENIC EXTRACT] Propensity to adverse reactions to drug (disorder) 11-29-19 Itching [place] [address] Repository (20 sources) Latex Allergy to substance 08-29-19 23 Rash [facility] (20 sources) Non-steroidal anti-inflammator y agent Drug Allergy 06-11-19 Other, Unknown, Itching, Other: See Comments [facility] (5 sources) Cat Hair Extract Allergy to substance 11-29-19 Itching [facility] (1 source) Latex Drug allergy (disorder) 09-05-19 [facility] Repository Medications Current Medications Medication Drug Class(es) Dates Sig (Normalized) Sig (Original) Blood Glucose Monitoring Suppl ([facility] Glucometer) w/Device kit (20 sources) Start: 07-12-2024 End: 11-01-2024 Blood Glucose Monitoring Suppl ([facility] Glucometer) w/Device kit Indications: Gestational diabetes mellitus (GDM), antepartum, gestational diabetes method of control unspecified ([facility]-HCC) , Elevated glucose tolerance test 1 kit Daily Use four times daily to check FSBS. In the morning prior to breakfast & 1 hour after each meal for a total of 4times daily. 1 kit 07/12/2024 11/01/2024 Discontinued Start: 07-12-2024 End: 07-12-[address] ([facility]Care Glucometer) w/Device kit Indications: Gestational diabetes mellitus (GDM), antepartum, gestational diabetes method of control unspecified ([facility]) , Elevated glucose tolerance test 1 kit [...] 4times daily. 1 kit 07/12/2024 07/12/2025 Active blood-glucose meter misc (1 source) Start: 09-12-2024 blood-glucose meter misc Indications: Insulin controlled gestational diabetes mellitus (GDM) in third trimester Meter per insurance preference. Use to test blood sugars 4 to 5 times per day. 1 each 09/12/2024 Active 24 hr buPROPion hydrochloride 150 mg extended release oral tablet (20 sources) Aminoketone Start: 10-13-2024 End: 01-11-2025 take 1 tablet by mouth once daily buPROPion XL (Wellbutrin XL) 150 MG 24 hr tablet Indications: Mood changes Take 1 tablet (150 mg) by mouth Daily Do not crush, chew, or split. 90 tablet 10/13/2024 01/11/2025 Active Start: 09-05-2023 take 1 tablet by didi every twenty-four hours Bupropion Hcl 150 mg [...] capsule Active 500 MG PO Twice daily 19 09September 04, 2023 11:00pm cholecalciferol 0.05 mg oral [...] FOR 7 DAYS 11/11/2023 Active dexmethylphenidate hydrochloride 10 mg oral tablet (20 sources) Central Nervous System Stimulant Start: 2024 take 1 tablet by mouth twice daily dexmethylphenidate (Focalin) 5 MG tablet Indications: Mood changes Take 1 tablet (5 mg) by mouth 2 (two) times a day At 3pm and 6pm 180 tablet 10/13/2024 Active Start: 10-13-2024 take 1 tablet by didi th once daily dexmethylphenidate (Focalin) 10 MG tablet Indications: Mood changes Take 1 tablet (10 mg) by mouth Daily 90 tablet 10/13/2024 Active Start: 09-05-2023 Dexmethylpheni date 10 mg capsule,ER biphasic 50-50 Active MG PO September 04, 2023 11:00pm Start: 02-19-2023 End: 10-20-2023 take 1 capsule by mouth once daily dexmethylphenidate XR (FOCALIN XR) 10 mg biphasic capsule TAKE 1 CAPSULE BY MOUTH EVERY DAY DO NOT CRUSH/CHEW/SPLIT 08/07/2023 Active Start: 02-19-2023 End: 10-20-2023 take [...] Active drospirenone / Ethinyl Estradiol / levomefolate (5 sources) Progestin, Estrogen Start: 07-18-2010 End: 03-04-2023 [...] 1 tablet by didi th once daily. 21 day ethinyl estradiol 0.985032 mg/hr / etonogestrel 0.005 mg/hr vaginal system (3 sources) Progestin, Estrogen Start: 11-10-2024 etonogestrel-ethinyl estradiol (NuvaRing) 0.12-0.015 MG/24HR vaginal ring Indications: Encounter for initial prescription of vaginal ring hormonal contraceptive Insert vaginally and leave in place for 21 consecutive days (3 weeks), then remove. Wait for 7 days before inserting new ring. 3 each 3 11/10/2024 Active 3 ml insulin glargine 100 unt/ml pen injector (20 sources) Insulin Analog Start: 08-30-2024 insulin glargine (LANTUS SOLOSTAR U-100 INSULIN) 100 unit/mL (3 mL) insulin pen Indications: Insulin controlled gestational diabetes mellitus (GDM) in third trimester Inject 17 units, subq, every evening. Prime with 2 units before each injection. 08/30/2024 Active Start: 08-30-2024 End: 08-30-2024 insulin glargine (LANTUS JAELYN OSTAR U-100 INSULIN) 100 unit/mL (3 mL) insulin pen Indications: Insulin controlled gestational diabetes mellitus (GDM) in third trimester Inject 14 units, subq, every evening. Prime with 2 units before each injection. 08/30/2024 08/30/2024 Discontinued Start: 08-09-2024 End: 11-01-2024 Lantus SoloStar 100 UNIT/ML pen Inject 17 Units under the skin at bedtime 08/09/2024 11/01/2024 Discontinued Start: 08-09-2024 Lantus SoloSta r 100 UNIT/ML pen Inject 14 Units under the skin 08/09/2024 Active Start: 08-09-2024 End: 08-30-2024 insulin glargine (LANTUS JAELYN OSTAR U-100 INSULIN) 100 unit/mL (3 mL) insulin pen Indications: Insulin controlled gestational diabetes mellitus (GDM) in third trimester Inject 10 units, subq, every evening. Prime with 2 units before each injection. 15 mL 2 08/09/2024 08/30/2024 Discontinued insulin isophane, human 100 unt/ml injectable suspension (18 sources) Start: 08-02-2024 End: 09-01-2024 inject 5 [IU] by subcutaneous injection in the morning insulin NPH, Isophane, (HumuLIN N,NovoLIN N) 100 UNIT/ML injection Indications: Gestational Diabetes Inject 5 Units under the skin in the morning and 5 Units in the evening. Inject before meals. 3 mL 08/02/2024 08/31/2024 Discontinued End: 08-09-2024 inject 100 [IU] by subcutaneous injection at mealtime insulin NPH (HumuLIN N,NovoLIN N) 100 unit/mL injection Inject under the skin in the morning and in the evening. Inject with meals. 08/09/2024 Discontinued (Alternate therapy) insulin isophane, human 70 unt/ml / insulin, regular, human 30 unt/ml injectable suspension (19 sources) Insulin Start: 08-02-2024 End: 09-01-2024 inject 5 [IU] by subcutaneous injection in the morning insulin NPH-insulin regular (NovoLIN) (70-30) 100 UNIT/ML injection Indications: Gestational Diabetes Inject 5 Units under the skin in the morning and 5 Units in the evening. Inject before meals. 3 mL 08/02/2024 08/31/2024 Discontinued End: 08-09-2024 insulin NPH and regular belkis n (HumuLIN 70-30,NovoLIN 70-30) 100 unit/mL (70-30) injection Inject under the skin in the morning and in the evening. Inject before meals. Stated not taking . 08/09/2024 Discontinued () 3 ml insulin lispro 100 unt/ml pen injector (20 sources) Insulin Analog Start: 08-30-2024 End: 11-01-2024 insulin lispro (HumaLOG) 100 UNIT/ML injection Inject 3 Units under the skin in the morning and 3 Units at noon and 3 Units in the evening. Inject with meals. 08/30/2024 11/01/2024 Discontinued Start: 08-30-2024 insulin lispro (HumaLOG KwikPen Insulin) 100 unit/mL insulin pen Inject 3 units before dinner. Prime with two units. 15 mL 3 08/30/2024 Active isopropyl alcohol 0.7 ml/ml medicated pad (20 sources) Start: 07-12-2024 End: 11-01-2024 Alcohol Swabs (Alcohol Prep Pad) 70 % pads Indications: Gestational diabetes mellitus (GDM), antepartum, gestational diabetes method of control unspecified ([facility]) , Elevated glucose tolerance test Apply 1 Pad topically Daily Use four times daily to check FSBS. 150 each 3 07/12/2024 11/01/2024 Discontinued levonorgestrel 0.772954 mg/hr intrauterine system (3 sources) Progestin, Progestin-containing Intrauterine Device Start: 11-10-2024 End: 11-09-2029 Levonorgestrel intrauterine device 52 mg MULTI-VITAMIN ORAL (3 sources) MULTI-VITAMIN OR AL Take by mouth. Active MULTI-VITAMIN OR AL Take by mouth. 0 [...] by mouth Daily 30 capsule 11 07/01/2024 11/01/2024 Discontinued take 1 tablet by mouth in the [...] oral tablet (20 sources) Phenothiazine Start: 05-26-2024 End: 08-31-2024 take 1 tablet by mouth every six hours for nausea promethazine (Phenergan) 12.5 MG tablet TAKE 1 TABLET (12.5 MG) BY MOUTH EVERY 6 HOURS IF NEEDED FOR NAUSEA OR VOMITING 05/26/2024 08/31/2024 Discontinued Start: 02-16-2024 End: 05-16-2024 take 1 tablet by mouth every six hours for nausea promethazine (Phenergan) 12.5 MG tablet Indications: Nausea and vomiting in Take 1 tablet (12.5 mg) by mouth every 6 (six) hours if needed for nausea or vomiting 180 tablet 1 02/16/2024 05/16/2024 Active traZODone hydrochloride 50 mg oral tablet (20 sources) Serotonin Reuptake Inhibitor Start: 06-04-2021 End: 02-16-2024 take 1 tablet by mouth every twenty-four hours as needed traZODone (DESYREL) 50 mg tablet Take 50 mg by mouth at bedtime as needed. 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] 11-01-2024 Episodic Anxiety disorders (20 sources) Anxiety; Translations: [Anxiety state, unspecified] Onset: 11-28-2022 11-28-2022 Chronic Attention-deficit, conduct, and disruptive behavior disorders (5 sources) Attention deficit hyperactivity disorder, predominantly inattentive type; Translations: [Attention-deficit hyperactivity disorder, predominantly inattentive type] 02-19-2023 Chronic Attention-deficit, conduct, and disruptive behavior disorders (2 sources) Attention-deficit hyperactivity disorder, predominantly inattentive type; Translations: [Attention-deficit hyperactivity disorder, predominantly inattentive type] Onset: 07-22-2023 Chronic Contraceptive and procreative management (3 sources) Patient encounter status; Translations: [Encounter for insertion of intrauterine contraceptive device] 11-10-2024 Episodic Diabetes mellitus without complication (2 sources) Abnormal glucose tolerance test; Translations: [Other abnormal glucose] 07-12-2024 Episodic Diabetes or abnormal glucose tolerance complicating ; childbirth; or the puerperium (20 sources) Gestational diabetes mellitus; Translations: [Gestational diabetes [...] (2 sources) Nausea; Translations: [Nausea] 04-14-2024 Episodic Neoplasms of unspecified nature or uncertain behavior (20 sources) 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; Translations: [Neoplasm of uncertain behavior of lip, oral cavity, and pharynx] Onset: 11-28-2022 11-28-2022 Episodic Nutritional deficiencies (20 sources) Vitamin D deficiency; Translations: [Unspecified vitamin D deficiency] Onset: 11-28-2022 11-28-2022 Chronic Other aftercare (1 source) Encounter for follow-up examination after completed treatment for malignant neoplasm; Translations: [Encounter for follow-up examination after completed treatment for malignant neoplasm] Onset: 10-25-2024 Episodic Other and unspecified benign neoplasm (7 sources) Fibroadenoma of breast; Translations: [Benign neoplasm of breast] Episodic Other and unspecified benign neoplasm (3 sources) Senile angioma; Translations: [Hemangioma of skin and subcutaneous tissue] Episodic Other and unspecified benign neoplasm (2 sources) Dermatofibroma; Translations: [Other benign neoplasm of skin, unspecified] Episodic Other and unspecified benign neoplasm (1 source) Lipoma (clinical); Translations: [Lipoma] Episodic Other and unspecified benign neoplasm (1 source) Benign neoplasm of skin; Translations: [Melanocytic nevi of unspecified upper limb, including shoulder] 10-25-2024 Episodic Other and unspecified benign neoplasm (1 source) Melanocytic nevi of unspecified upper limb, including shoulder; Translations: [Multiple benign nevi of upper extremity, lower extremity, and trunk] Onset: 10-25-2024 Episodic Other and unspecified benign neoplasm (1 source) Melanocytic nevi of trunk; Translations: [Multiple benign nevi of upper extremity, lower extremity, and trunk] Onset: 10-25-2024 Episodic Other and unspecified benign neoplasm (1 source) Melanocytic nevi of unspecified lower limb, including hip; Translations: [Multiple benign nevi of upper extremity, lower extremity, and trunk] Onset: 10-25-2024 Episodic Other and unspecified benign neoplasm (1 source) Hemangioma of skin and subcutaneous tissue; Translations: [Chirinos angioma] Onset: 10-25-2024 Episodic Other circulatory disease (7 sources) History of clinical finding in subject; Translations: [Personal history of other diseases of circulatory system] 11-01-2024 Episodic Other complications of (10 sources) Multigravida of advanced maternal age; Translations: [Supervision of elderly multigravida, unspecified trimester] 03-16-2024 Episodic Other complications of (4 sources) Excessive growth affecting management of mother; Translations: [Maternal care for excessive growth, unspecified trimester, not applicable or unspecified] 08-31-2024 Episodic Other connective tissue disease (1 source) [...] adult] Chronic Other and delivery including normal (20 sources) ; Translations: [Encounter for supervision of normal , unspecified, unspecified trimester] 02-16-2024 Episodic Other screening for suspected conditions (not mental disorders or infectious disease) (20 sources) Mammography abnormal; Translations: [Abnormal mammogram, unspecified] Onset: 03-25-2021 Episodic Other skin disorders (3 sources) Lentiginosis; Translations: [Other melanin hyperpigmentation] Episodic Other skin disorders (1 source) Seborrheic keratosis; Translations: [Other seborrheic keratosis] 10-25-2024 Episodic Other skin disorders (1 source) Other melanin hyperpigmentation; Translations: [Lentigines] Onset: 10-25-2024 Episodic Other skin disorders (1 source) Other seborrheic keratosis; Translations: [Seborrheic keratoses] Onset: 10-25-2024 Episodic Other upper respiratory disease (20 sources) [...] [33 weeks gestation of ] 08-17-2024 Episodic Residual codes; unclassified (2 sources) Gestation period, 35 weeks; Translations: [35 weeks gestation of ] 08-31-2024 Episodic Residual codes; unclassified (2 sources) Gestation period, 36 weeks; Translations: [36 weeks gestation of ] 09-06-2024 Episodic Spondylosis; intervertebral disc disorders; other back [...] Episodic E Codes: Other specified and classifiable (9 sources) Exposure to tanning bed, sequela; Translations: [Late effects of other accidents] Onset: 09-15-2019 Episodic Genitourinary symptoms and ill-defined conditions (20 sources) Increased frequency of urination; Translations: [Urinary frequency] Onset: 09-06-2021 11-28-2022 Episodic Melanomas of skin (17 sources) H/O Malignant melanoma; Translations: [Personal history of malignant melanoma of skin] Onset: 09-15-2019 Episodic Nonmalignant breast conditions (20 sources) Breast lump; Translations: [Lump or mass in breast] Onset: 11-28-2022 11-28-2022 Episodic Other and unspecified benign neoplasm (10 sources) Multiple benign melanocytic nevi ; Translations: [Melanocytic nevi, unspecified] Onset: 09-15-2019 Episodic Other and unspecified benign neoplasm (8 sources) Skin lesion; Translations: [Hemangioma of skin [...] Onset: 11-28-2022 11-28-2022 Episodic Other skin disorders (8 sources) Solar lentigo; Translations: [Other melanin hyperpigmentation] Onset: 09-15-2019 09-15-2019 Episodic Other skin disorders (8 sources) Skin tag; Translations: [Other hypertrophic disorders [...] Facility HCG ( test) Ql (U)o n 11-10-2024 Interpretation and review of laboratory results Normal [facility] Preg Test, Ur Negative Negative [facility] TISS PATH BX REPORTon 2024 AP DISCLAIMER [facility] Comment on above: Laboratory Developed Test (LDT) Disclaimer: Performance characteristics of immunohistochemical, immunofluorescent, and chromogenic in-situ hybridization tests have been determined by the performing laboratory within [facility]'s [place] [facility] Medicine Department ([facility], [facility], [facility], , [facility], [facility], or [facility]) in a manner consistent with CLIA requirements. One or more of these tests may not have been cleared or approved by the FDA. [facility] is regulated under CLIA as qualified to perform high-complexity testing. These tests are used for clinical purposes. These should not be regarded as investigational or for research. Positive and negative controls stain appropriately. CC CASE REPORT [facility] Comment on above: Surgical Pathology R eport Case: [id number] Authorizing Provider: Keyur Narayanan APRN.DISTRIBUTION CENTER MANAGER Collected: 10/25/2024 02:18 PM Ordering Location: [facility] [place] Received: 10/26/2024 08:00 AM Pathologist: Florencia Osborn MD Specimen: Skin, Right 3rd Distal Dorsal Toe [facility] CLINICAL HISTORY [facility] Comment on above: A) shave biopsy of 0 .3 cm x 0.3 cm light to dark brown papule R/O ATN, history of MM [facility] FINAL DIAGNOSIS [facility] Comment on above: A. Skin, right third distal dorsal toe, shave biopsy: - Acral compound nevus. SR/TN 2024 at 1819 EDT [facility] FINAL PERFORMING LAB [facility] Comment on above: Diagnostic interpret ation performed at: [facility], [address] [place] [address], [place] [address] CLIA# [id number] Display Coordinator: Gennaro Lenz MD [facility] GROSS DESCRIPTION A. Skin [facility] Comment on above: Received in formalin is a 0.6 x 0.3 x 0.2 cm shave of skin. On the skin surface there is a 0.2 cm lamas-brown, slightly elevated area. The specimen is bisected. Totally submitted in one cassette. October 26, 2024 5:35 PM Gross examination performed at [facility], [address] [place] [address] Specimen Type: TISSUE SPECIMEN Ordering Facility: [facility] Address: [address] [place] [address] Original Ordering Provider: KEYUR WICK [facility] e CNOVdaniel 10-25-2024 CNOV Office Visit (AMDERM) DAVIDMELLISSAMICHAEL PAYNE ([id number]) 1985 F Date Time Provider Department 10/25/24 2:00 PM KEYUR NARAYANAN AMDERM During your visit today, we recorded the following information about you: Keyur Narayanan APRN.DISTRIBUTION CENTER MANAGER 10/25/2024 4:02 PM Signed [place] [facility] ESTABLISHED PATIENT Last Visit to [facility]: 09/01/2023 Subjective CC: Full Body Skin Check HPI: Michael Weller is a 38 year old female presenting today for # Full Body Skin Exam (Skin Cancer Screening) # Lesion, skin Location: 3rd right toe Duration: noticed during (this Winter) gave 5 weeks ago Symptoms/Course: brown macule Current Treatment: none Past Treatment: none No other concerns today. Pertinent Dermatologic History: History of skin cancer: 08/2015 Melanoma: right lower leg from Derm in [facility] History of atypical nevi: No History of blistering sunburns / extensive sun exposure: Yes History of tanning bed use: Yes, Yes, excessive use during teenage years Pertinent Medical History: Organ Transplant / Immunosuppression: No Pacemaker / Defibrillator / Heart Valve Replacement: No / Planning / : No Pertinent Family History: Family history of skin cancer: No Objective (Electronically Updated / Obtained from [employer] EMR) Past Medical History Reviewed. Medications Reviewed. Allergies Reviewed. ROS: As per HPI. PHYSICAL EXAM: Robert Skin Type: II Pleasant female in no apparent distress. Alert and oriented x 3. Appears well developed, well nourished, and in otherwise good health. Appropriate mood and affect. A skin exam of the (full body) scalp, face, ears, neck, chest, abdomen, back, bilateral upper extremities, bilateral lower extremities, buttocks, hands, feet, and nails was performed, with pertinent findings as noted in the AANDP. Underwear was kept on per patient preference, excluding genitalia. Presence of nail ugandan. Generalized Multiple scattered pink papules with flaccid epidermis and small, symmetric lamas to brown macules with uniform pigmentation over the trunk and extremities. Generalized Densely scattered light lamas macules and small patches on all sun exposed areas Generalized Bright red, dome-shaped papules Generalized Stuck-on verrucous, variably pigmented papule(s) and plaque(s) throughout Right 3rd Distal Dorsal Toe A) shave biopsy of 0.3 cm x 0.3 cm light to dark brown papule R/O ATN, history of MM IMPRESSION Assessment AND Plan NEOPLASM OF SKIN Right 3rd Distal Dorsal Toe - SKIN / NAIL BIOPSY Type of biopsy: tangential Informed consent: discussed and consent obtained Timeout: patient name, date of , surgical site, and procedure verified Instrument used: DermaBlade Hemostasis achieved with: aluminum chloride Outcome: patient tolerated procedure well Post-procedure details: wound care instructions given Specimen A - Surgical Pathology A) shave biopsy of 0.3 cm x 0.3 cm light to dark brown papule R/O ATN, history of MM PERSONAL HISTORY OF MALIGNANT MELANOMA OF SKIN Generalized Recommend routine exams with appropriate specialties for continued melanoma surveillance. Recommend regular self-monitoring of skin lesions, looking for the ABCDEs (Asymmetry, Border, Color, Diameter, Evolving). Continue full body skin exam every 3 months for the first 2 years after diagnosis of melanoma, then every 6 months for the next 5 years, then yearly for life. She will look for original pathology and message us in Mychart MULTIPLE BENIGN NEVI OF UPPER EXTREMITY, LOWER EXTREMITY, AND TRUNK Generalized Observational course, monitor for growth and changes LENTIGINES Generalized Educated on benign nature. Observational course, monitor for changes CHIRINOS ANGIOMA Generalized Educated on benign nature. Observational course, monitor for changes SEBORRHEIC KERATOSES Generalized Educated on benign nature. Observational course, monitor for changes UNIVERSAL PROTOCOL / SAFETY CHECKLIST Procedure to be Performed: shave biopsy Sign In: A Moment of CARE was completed. Personnel directly involved with the procedure wore the appropriate PPE (Personal Protective Equipment). Patient/Surrogate Stated/Verified: PATIENT VERIFIED (optional for EMERGENT procedures): Patient name, Date of , Relevant allergies, and The intended procedure Time Out Communication: Intended patient and procedure match the source documents. Consent documented and matches the intended procedure. Relevant labs, photos, and/or imaging studies have been reviewed. Correct side/site marked and visible. Medications required for procedure verified. Sign Out: SIGN OUT (optional for EMERGENT procedures): All specimen containers correctly labeled. All instruments, equipment, possible retained fo (more content not included)... Normal [facility] Pathology biopsy report Omer (Tiss)on 10-25-2024 AP DISCLAIMER Normal [facility] Comment on above: Order Comment: Speci men Type: TISSUE SPECIMEN Ordering Facility: [facility] Address: [address] [place] [address] Result Comment: Efrain garcia Developed Test (LDT) Disclaimer: Performance characteristics of immunohistochemical, immunofluorescent, and chromogenic in-situ hybridization tests have been determined by the performing laboratory within [facility]'s [facility] Pathology and Laboratory Medicine Department ([facility], [facility], [facility], , [facility], [facility], or [facility]) in a manner consistent with CLIA requirements. One or more of these tests may not have been cleared or approved by the FDA. [facility] is regulated under CLIA as qualified to perform high-complexity testing. These tests are used for clinical purposes. These should not be regarded as investigational or for research. Positive and negative controls stain appropriately. Performed By: #### 6 6121-5 #### [facility] CLIA [id number] [address] [place] [address] [place] CASE REPORT Normal [facility] Comment on above: Order Comment: Speci men Type: TISSUE SPECIMEN Ordering Facility: [facility] Address: [address] [place] [address] Result Comment: Surg [facility] Pathology Report Case: [id number] Authorizing Provider: Keyur Narayanan APRN.[facility] C[facility] MANAGER Collected: 10/25/2024 02:18 PM Ordering Location: [facility] [place] Received: 10/26/2024 08:00 AM Pathologist: Florencia Osborn MD Specimen: Skin, Right 3rd Distal Dorsal Toe Performed By: #### 6 6121-5 #### [facility] CLIA [id number] [address] [place] [address] [place] CLINICAL HISTORY Normal [facility] Comment on above: Order Comment: Speci men Type: TISSUE SPECIMEN Ordering Facility: [facility] Address: [address] [place] [address] Result Comment: A) s have biopsy of 0.3 cm x 0.3 cm light to dark brown papule R/O ATN, history of MM Performed By: #### 6 6121-5 #### [facility] CLIA [id number] [address] [place] [address] [place] FINAL DIAGNOSIS Normal [facility] Comment on above: Order Comment: Speci men Type: TISSUE SPECIMEN Ordering Facility: [facility] Address: [address] [place] [address] Result Comment: A. S kin, right third distal dorsal toe, shave biopsy: - Acral compound nevus. SR/TN 2024 at 1819 EDT Performed By: #### 6 6121-5 #### [facility] CLIA [id number] [address] [place] [address] [place] FINAL PERFORMING LAB Normal [facility] Comment on above: Order Comment: Speci men Type: TISSUE SPECIMEN Ordering Facility: [facility] Address: [address] [place] [address] Result Comment: Diag nostic interpretation performed at: [facility], [address] [place], [place] [id number] CLIA# [id number] Display Coordinator: Gennaro Lenz MD Performed By: #### 6 6121-5 #### [facility] CLIA [id number] [address] [place] [address] [place] GROSS DESCRIPTION A. Skin Normal [facility] Comment on above: Order Comment: Speci men Type: TISSUE SPECIMEN Ordering Facility: [facility] Address: [address] [place] [address] Result Comment: Rece ived in formalin is a 0.6 x 0.3 x 0.2 cm shave of skin. On the skin surface there is a 0.2 cm lamas-brown, slightly elevated area. The specimen is bisected. Totally submitted in one cassette. October 26, 2024 5:35 PM Gross examination performed at [facility], [address] [place] [address] Performed By: #### 6 6121-5 #### [facility] CLIA [id number] [address] [place] [address] [place] [address] [place] SKIN / NAIL BIOPSYon 025 Type of biopsy: tangential Informed consent: discussed and consent obtained Timeout: patient name, date of , surgical site, and procedure verified Instrument used: DermaBlade Hemostasis achieved with: aluminum chloride Outcome: patient tolerated procedure well Post-procedure details: wound care instructions given [facility] ALL CBC WITH AUTO DIFFon BASOPHILS ABSOLUTE AUTO 0 [facility] Basophils/100 WBC (Bld) 0.4 % 0.2 - 2.0 % [facility] Eosinophils/100 WBC (Bld) 0 % Low 0.9 - 7.0 % [facility] Erythrocyte distribution width (RBC) [Ratio] 15.4 % High 11.0 - 15.0 % [facility] Hematocrit (Bld) [Volume fraction] 32.2 % Low 36.0 - 48.0 % [facility] Hemoglobin (Bld) [Mass/Vol] 10.3 g/dL Low 12.0 - 16.0 g/dL [facility] IMMATURE GRANULOCYTES ABS AUTO 0.04 High [facility] Immature granulocytes/100 WBC (Bld) 0.5 % 0.0 - 0.5 % [facility] Interpretation and review of laboratory results Abnormal [facility] LYMPHOCYTES ABSOLUTE AUTO 1.5 [facility] Lymphocytes/100 WBC (Bld) 18.2 % Low 20.5 - 60.0 % [facility] MCH (RBC) [Entitic mass] 26.9 pg 26.7 - 34.0 pg [facility] MCHC (RBC) [Mass/Vol] 32 g/dL 29.9 - 35.2 g/dL [facility] MCV (RBC) [Entitic vol] 84.1 fL 81.0 - 99.0 fL [facility] MONOCYTES ABSOLUTE AUTO 0.7 [facility] Monocytes/100 WBC (Bld) 8.2 % 1.7 - 12.0 % [facility] NEUTROPHILS ABSOLUTE AUTO 5.8 [facility] Neutrophils/100 WBC (Bld) 72.7 % 43.0 - 75.0 % [facility] Platelet mean volume (Bld) [Entitic vol] 12.4 fL 9.5 - 13.5 fL [facility] EO # 0 [facility] PLT 151 [facility] RBC 3.83 Low [facility] WBC 8 [facility] HMHP CBC WITH PLATELET NO DI FFERENTIALon 09-14-2024 Erythrocyte distribution width (RBC) [Ratio] 15.1 % High 11.0 - 15.0 % [facility] Hematocrit (Bld) [Volume fraction] 33.5 % Low 36.0 - 48.0 % [facility] Hemoglobin (Bld) [Mass/Vol] 10.9 g/dL Low 12.0 - 16.0 g/dL [facility] Interpretation and review of laboratory results Abnormal [facility] MCH (RBC) [Entitic mass] 26.5 pg Low 26.7 - 34.0 pg [facility] MCHC (RBC) [Mass/Vol] 32.5 g/dL 29.9 - 35.2 g/dL [facility] MCV (RBC) [Entitic vol] 81.5 fL 81.0 - 99.0 fL [facility] Platelet mean volume (Bld) [Entitic vol] 12.2 fL 9.5 - 13.5 fL [facility] PLT 145 Low [facility] RBC 4.11 Low [facility] WBC 8 [facility] US OB BPP W NON-STRESS on 09-08-[address] [address] Ultrasound Report Signed Patient: JUDEMICHAEL MR#: [id number] : 1985 Acct:[id number] Age/Sex: 38 / F ADM Date: 09/08/24 Loc: US Attending Dr: Matt Stapleton D.O. Ordering Physician: Matt Stapleton D.O. Date of Service: 09/08/24 Procedure(s): US OB BPP w non-stress Accession Number(s): [id number] cc: Matt Stapleton D.O.; Physician,Non-Staff [place]ami[place] The [place] [address] Patient Name: MICHAEL WELLER MRN: [facility]:[id number] date: 1985 Sex: F Assigned Patient Location: [facility] Current Patient Location: Accession/Order Number: [id number] Exam Date: 09/08/2024 19:24 Report Date: 09/08/2024 19:25 At the request of: MATT STAPLETON DO [...] Villegas M.D. 09/08/2024 7:25 PM Dictation Location: [place] [address] Electronically authenticated by: [id number] Y Date: 09/08/2024 19:25 Dictated By: Roddy Villegas D.O. Signed By: 09/08/241926 DD/ 24 TD/TT: Mold Sander: [facility] Radiology, Radiologist, - 09/08/2024 [place] [address] Ultrasound Report Signed Patient: MICHAEL WELLER MR#: [id number] : 1985 Acct:[id number] Age/Sex: 38 / F ADM Date: 09/08/24 Loc: US Attending Dr: Matt Stapleton D.O. Ordering Physician: Matt Stapleton D.O. Date of Service: 09/08/24 Procedure(s): US OB BPP w non-stress Accession Number(s): [id number] cc: Matt Stapleton D.O.; Physician,Non-Staff [place] [address] Patient Name: MICHAEL WELLER MRN: [facility]:[id number] date: 1985 Sex: F Assigned Patient Location: [facility] Current Patient Location: Accession/Order Number: [id number] Exam Date: 09/08/2024 19:24 Report Date: 09/08/2024 19:25 At the request of: MATT STAPLETON DO [...] Villegas M.D. 09/08/2024 7:25 PM Dictation Location: [place] [address] Electronically authenticated by: [id number] Y Date: 09/08/2024 19:25 Dictated By: Roddy Villegas D.O. Signed By: 09/08/241926 DD/ 24 TD/TT: Mold Sander: [facility] [employer] Radiology Study observation (narrative) [facility] [employer] US OB BPP W NON-STRESS Ordered By: Radiologist Radiology on 09-08-2024 [facility] [employer] Work Phone: Urinalysis macro (dipstick) panel (U)on 09-06-2024 Bilirubin, UA Negative Negative - 4(70) +++ mg/dL [facility] Blood, UA Negative Negative - 50 Shanu/mcL [facility] [employer] Clarity, UA Clear [facility] [employer] Color, UA Yellow [facility] Glucose, UA Negative Negative - 1999(110) ++++ mg/dL [facility] Interpretation and review of laboratory results Abnormal [facility] Ketones, UA Negative Negative - 160(16) ++++ mg/dL [facility] Leukocytes, UA Positive Negative - 500+++ Denys/mcL [facility] Comment on above: small Nitrite, UA Negative Negative - Positive [facility] pH, UA 6 5 - 9 [facility] Protein, UA Negative Negative - 1999(20) ++++ mg/dL [facility] Spec Grav, UA 1.025 1 - 1.03 [facility] care Urobilinogen, UA 0.2 0.2 - 12 mg/dL [facility] US OB GROWTHon 09-05-2024 [place] [address] Ultrasound Report Signed Patient: MICHAEL WELLER MR#: [id number] : 1985 Acct:[id number] Age/Sex: 38 / F ADM Date: 09/02/24 Loc: US Attending Dr: Matt Stapleton D.O. Ordering Physician: Matt Stapleton D.O. Date of Service: 09/02/24 Procedure(s): US OB growth Accession Number(s): [id number] cc: Matt Stapleton D.O.; Physician,Non-Staff [place]ami[place] [address] [address] Patient Name: MICHAEL WELLER MRN: [id number] date: 1985 Sex: F Assigned Patient Location: Current Patient Location: Accession/Order Number: [id number] Exam Date: 09/05/2024 08:14 Report Date: 09/05/2024 08:20 At the request of: MATT STAPLETON DO Procedure: US OB growth ULTRASOUND [...] Holden M.D. 09/05/2024 8:20 AM Dictation Location: [place] [address] Electronically authenticated by: [id number] Y Date: 09/05/2024 08:20 Dictated By: Bisi Holden M.D. Signed By: 09/05/24821 DD/ 9 TD/TT: Mold Sander: [facility] Radiology, Radiologist, MD - 09/05/2024 [place] [address] Ultrasound Report Signed Patient: MICHAEL WELLER MR#: [id number] : 1985 Acct:[id number] Age/Sex: 38 / F ADM Date: 09/02/24 Loc: US Attending Dr: Matt Stapleton D.O. Ordering Physician: Matt Stapleton D.O. Date of Service: 09/02/24 Procedure(s): US OB growth Accession Number(s): [id number] cc: Matt Stapleton D.O.; Physician,Non-Staff Ramiro The [address] [address] Patient Name: MICHAEL WELLER MRN: [facility]:[id number] date: 1985 Sex: F Assigned Patient Location: US Current Patient Location: Accession/Order Number: [id number] Exam Date: 09/05/2024 08:14 Report Date: 09/05/2024 08:20 At the request of: MATT STAPLETON DO Procedure: US OB growth ULTRASOUND [...] Holden M.D. 09/05/2024 8:20 AM Dictation Location: [place] [address] Electronically authenticated by: [id number] Y Date: 09/05/2024 08:20 Dictated By: Bisi Holden M.D. Signed By: 09/05/24821 DD/ 9 TD/TT: Mold Sander: [facility] [employer] Radiology Study observation (narrative) [facility] US OB GROWTHOrdered By: Nadira ologist Radiology on 09-05-2024 [facility] [employer] Work Phone: US OB BPP W NON-STRESS on 09-03-[address] [address] Ultrasound Report Signed Patient: MICHAEL WELLER MR#: [id number] : 1985 Acct:[id number] Age/Sex: 38 / F ADM Date: 09/02/24 Loc: US Attending Dr: Matt Stapleton D.O. Ordering Physician: Matt Stapleton D.O. Date of Service: 09/02/24 Procedure(s): US OB BPP w non-stress Accession Number(s): [id number] cc: Matt Stapleton D.O.; Physician,Non-Staff Ramiro The [place] [id number] Patient Name: MICHAEL WELLER MRN: [facility]:[id number] date: 1985 Sex: F Assigned Patient Location: [facility] Current Patient Location: Accession/Order Number: [id number] Exam Date: 09/03/2024 18:03 Report Date: 09/03/2024 18:07 At the request of: MATT STAPLETON DO [...] Bhatia M.D. 09/03/2024 6:07 PM Dictation Location: [place] [address] Electronically authenticated by: [id number] Y Date: 09/03/2024 18:07 Dictated By: Orlando Bhatia M.D. Signed By: 09/03/241809 DD/ 06 TD/TT: Mold Sander: [facility] Radiology, Radiologist, MD - 09/03/2024 The [place] [id number] Ultrasound Report Signed Patient: MICHAEL WELLER MR#: [id number] : 1985 Acct:[id number] Age/Sex: 38 / F ADM Date: 09/02/24 Loc: US Attending Dr: Matt Stapleton D.O. Ordering Physician: Matt Stapleton D.O. Date of Service: 09/02/24 Procedure(s): US OB BPP w non-stress Accession Number(s): [id number] cc: Matt Stapleton D.O.; Physician,Non-Staff MRajeev [place] [id number] Patient Name: MICHAEL WELLER MRN: [id number] date: 1985 Sex: F Assigned Patient Location: [facility] Current Patient Location: Accession/Order Number: [id number] Exam Date: 09/03/2024 18:03 Report Date: 09/03/2024 18:07 At the request of: MATT STAPLETON DO [...] Bhatia M.D. 09/03/2024 6:07 PM Dictation Location: [place] [address] Electronically authenticated by: [id number] Y Date: 09/03/2024 18:07 Dictated By: Orlando Bhatia M.D. Signed By: 09/03/241809 DD/ 06 TD/TT: Mold Sander: [facility] Radiology Study observation (narrative) [facility] US OB BPP W NON-STRESS Ordered By: Radiologist Radiology on 09-03-2024 [facility] [employer] Work Phone: Urinalysis macro (dipstick) panel (U)on 08-31-2024 Bilirubin, UA Negative Negative - 4(70) +++ mg/dL [facility] Blood, UA Negative Negative - 50 Shaun/mcL [facility] Clarity, UA Clear [facility] Color, UA Yellow [facility] Glucose, UA Negative Negative - 1999(110) ++++ mg/dL [facility] Interpretation and review of laboratory results Abnormal [facility] Ketones, UA Positive Negative - 160(16) ++++ mg/dL [facility] Comment on above: trace Leukocytes, UA Trace Negative - 500+++ Denys/mcL [facility] Nitrite, UA Negative Negative - Positive [facility] pH, UA 6 5 - 9 [facility] Protein, UA Trace Negative - 1999(20) ++++ mg/dL [facility] Spec Grav, UA 1.03 1 - 1.03 [facility] Urobilinogen, UA 0.2 0.2 - 12 mg/dL [facility] US OB BPP W NON-STRESS on 08-26-2024 [place] [address] Ultrasound Report Signed Patient: MICHAEL WELLER MR#: [id number] : 1985 Acct:[id number] Age/Sex: 38 / F ADM Date: 08/25/24 Loc: US Attending Dr: Matt Stapleton D.O. Ordering Physician: Matt Stapleton D.O. Date of Service: 08/25/24 Procedure(s): US OB BPP w non-stress Accession Number(s): [id number] cc: Matt Stapleton D.O.; Physician,Non-Staff M.DJonathan The [place] [id number] Patient Name: MICHAEL WELLER MRN: [id number]:[id number] date: 1985 Sex: F Assigned Patient Location: US Current Patient Location: Accession/Order Number: [id number] Exam Date: 08/25/2024 18:13 Report Date: 08/25/2024 18:15 At the request of: MATT STAPLETON DO [...] Tobar M.D. 08/25/2024 6:15 PM Dictation Location: [place] [address] Electronically authenticated by: [id number] Y Date: 08/25/2024 18:15 Dictated By: Kennedy Tobar M.D. Signed By: 08/26/24901 DD/ 14 TD/TT: Mold Sander: [facility] Radiology, Radiologist, MD - 08/26/2024 [place] [address] Ultrasound Report Signed Patient: MICHAEL WELLER MR#: [id number] : 1985 Acct:[id number] Age/Sex: 38 / F ADM Date: 08/25/24 Loc: US Attending Dr: Matt Stapleton D.O. Ordering Physician: Matt Stapleton D.O. Date of Service: 08/25/24 Procedure(s): US OB BPP w non-stress Accession Number(s): [id number] cc: Matt Stapleton D.O.; Physician,Non-Staff Ramiro The [address] [address] Patient Name: MICHAEL WELLER MRN: [facility]:[id number] date: 1985 Sex: F Assigned Patient Location: US Current Patient Location: Accession/Order Number: [id number] Exam Date: 08/25/2024 18:13 Report Date: 08/25/2024 18:15 At the request of: MATT STAPLETON DO [...] Tobar M.D. 08/25/2024 6:15 PM Dictation Location: [place] [address] Electronically authenticated by: [id number] Y Date: 08/25/2024 18:15 Dictated By: Kennedy Tobar M.D. Signed By: 08/26/24 09 DD/ 14 TD/TT: Mold Sander: [facility] [employer] US OB BPP W NON-STRESS Ordered By: Radiologist Radiology on 08-26-2024 [facility] [employer] Work Phone: US OB BPP W NON-STRESS on 08-25-2024 Radiology Study observation (narrative) [facility] US OB BPP W NON-STRESS on 08-19-2024 [place] [address] Ultrasound Report Signed Patient: MICHAEL WELLER MR#: [id number] : 1985 Acct:[id number] Age/Sex: 38 / F ADM Date: 08/19/24 Loc: US Attending Dr: Matt Stapleton D.O. Ordering Physician: Matt Stapleton D.O. Date of Service: 08/19/24 Procedure(s): US OB BPP w non-stress Accession Number(s): [id number] cc: Matt Stapleton D.O.; Physician,Non-Staff Rami[place] [address] [address] Patient Name: MICHAEL WELLER MRN: [facility]:[id number] date: 1985 Sex: F Assigned Patient Location: [facility] Current Patient Location: Accession/Order Number: [id number] Exam Date: 08/19/2024 18:44 Report Date: 08/19/2024 [...] Villegas M.D. 08/19/2024 6:46 PM Dictation Location: [place] [address] Electronically authenticated by: [id number] Y Date: 08/19/2024 18:46 Dictated By: Roddy Villegas D.O. Signed By: 08/19/241848 DD/ 45 TD/TT: Mold Sander: [facility] Radiology, Radiologist, MD - 08/19/2024 [place] [address] Ultrasound Report Signed Patient: MICHAEL WELLER MR#: [id number] : 1985 Acct:[id number] Age/Sex: 38 / F ADM Date: 08/19/24 Loc: US Attending Dr: Matt Stapleton D.O. Ordering Physician: Matt Stapleton D.O. Date of Service: 08/19/24 Procedure(s): US OB BPP w non-stress Accession Number(s): [id number] cc: Matt Stapleton D.O.; Physician,Non-Staff Ramiro The [address] [address] Patient Name: MICHAEL WELLER MRN: [facility]:[id number] date: 1985 Sex: F Assigned Patient Location: [facility] Current Patient Location: Accession/Order Number: [id number] Exam Date: 08/19/2024 18:44 Report Date: 08/19/2024 [...] Villegas M.D. 08/19/2024 6:46 PM Dictation Location: [place] [address] Electronically authenticated by: [id number] Y Date: 08/19/2024 18:46 Dictated By: Roddy Villegas D.O. Signed By: 08/19/241848 DD/ 45 TD/TT: Mold Sander: [facility] Radiology Study observation (narrative) [facility] US OB BPP W NON-STRESS Ordered By: Radiologist Radiology on 08-19-2024 [facility] e Work Phone: TB UA (CLEAN/CATCH) PROJECT DESIGNER/TODD RO IF IND.on 08-15-2024 BILIRUBIN URINE Negative NEGATIVE [facility] BLOOD URINE Negative NEGATIVE [facility] re Clarity (U) SL CLOUDY CLEAR [facility] Color (U) YELLOW YELLOW [facility] GLUCOSE URINE UA 100 mg/dL Abnormal NEGATIVE [facility] Interpretation and review of laboratory results Abnormal [facility] Ketones Ql (U) TRACE Abnormal NEGATIVE mg/dL [facility] Leukocyte esterase Test strip Ql (U) Negative NEGATIVE [facility] NITRITE URINE Negative NEGATIVE [facility] Health care pH (U) 6.0 [pH] 5.0 - 9.0 [facility] PROTEIN URINE TRACE NEG/TRACE mg/dL [facility] SPECIFIC GRAVITY URINE >=1.030 Abnormal 1.005 - 1.025 [facility] URINE MICROSCOPIC INDICATED NO [facility] UROBILINOGEN URINE 1.0 EU/dL 0.2 - 1.0 EU/dL [facility] Health[facility] e TBH TOTAL PROTEIN 24 HOUR UR INEon 08-14-2024 Interpretation and review of laboratory results Abnormal [facility] Protein (U) [Mass/Vol] 20.8 mg/dL High NINF - 11.9 mg/dL [facility] TBH TOTAL PROTEIN 24 HOUR URINE 322.4 High [employer] [facility] [employer] [facility] [facility] TOTAL VOLUME 24 HOUR URINE 1550 mL/24hr [facility] START TIME:075 END TIME:744 TOTAL VOLUME:1550 [facility] ALL CBC WITH AUTO DIFFon BASOPHILS ABSOLUTE AUTO 0 [facility] Basophils/100 WBC (Bld) 0.2 % 0.2 - 2.0 % [facility] Eosinophils/100 WBC (Bld) 0.1 % Low 0.9 - 7.0 % [facility] Erythrocyte distribution width (RBC) [Ratio] 14.9 % 11.0 - 15.0 % [facility] Hematocrit (Bld) [Volume fraction] 32.6 % Low 36.0 - 48.0 % [facility] Hemoglobin (Bld) [Mass/Vol] 10.6 g/dL Low 12.0 - 16.0 g/dL [facility] IMMATURE GRANULOCYTES ABS AUTO 0.07 High [facility] Immature granulocytes/100 WBC (Bld) 0.8 % High 0.0 - 0.5 % [facility] Interpretation and review of laboratory results Abnormal [facility] LYMPHOCYTES ABSOLUTE AUTO 1.4 [facility] Lymphocytes/100 WBC (Bld) 16.3 % Low 20.5 - 60.0 % [facility] MCH (RBC) [Entitic mass] 27.1 pg 26.7 - 34.0 pg [facility] MCHC (RBC) [Mass/Vol] 32.5 g/dL 29.9 - 35.2 g/dL [facility] MCV (RBC) [Entitic vol] 83.4 fL 81.0 - 99.0 fL [facility] MONOCYTES ABSOLUTE AUTO 0.7 [facility] Monocytes/100 WBC (Bld) 7.9 % 1.7 - 12.0 % [facility] NEUTROPHILS ABSOLUTE AUTO 6.3 [facility] Neutrophils/100 WBC (Bld) 74.7 % 43.0 - 75.0 % [facility] Platelet mean volume (Bld) [Entitic vol] 12.1 fL 9.5 - 13.5 fL [facility] TB[facility] EO # 0 [facility] TB[facility] PLT 148 Low [facility] TB[facility] RBC 3.91 Low [facility] TB[facility] WBC 8.5 [facility] US OB BPP W NON-STRESS on 08-12-2024 [place] [address] Ultrasound Report Signed Patient: MICHAEL WELLER MR#: [id number] : 1985 Acct:[id number] Age/Sex: 38 / F ADM Date: 08/12/24 Loc: [facility] 254-[address]: Matt Stapleton D.O. Ordering Physician: Matt Stapleton D.O. Date of Service: 08/12/24 Procedure(s): US OB BPP w non-stress Accession Number(s): [id number] cc: Matt Stapleton D.O.; Physician,Non-Staff [place] [address] Patient Name: MICHAEL WELLER MRN: [facility]:[id number] date: 1985 Sex: F Assigned Patient Location: [facility] Current Patient Location: [facility] Accession/Order Number: [id number] Exam Date: 08/12/2024 16:37 Report Date: 08/12/2024 [...] Villegas M.D. 08/12/2024 4:38 PM Dictation Location: [facility] Electronically authenticated by: [id number] Y Date: 08/12/2024 16:38 Dictated By: Roddy Villegas D.O. Signed By: 08/12/24 1641 DD/ 1638 TD/TT: Mold Sander: [facility] Radiology, Radiologist, - 08/12/2024 [place] [address] Ultrasound Report Signed Patient: MICHAEL WELLER MR#: [id number] : 1985 Acct:[id number] Age/Sex: 38 / F ADM Date: 08/12/24 Loc: [facility] 254-[address]: Matt Stapleton D.O. Ordering Physician: Matt Stapleton D.O. Date of Service: 08/12/24 Procedure(s): US OB BPP w non-stress Accession Number(s): [id number] cc: Matt Stapleton D.O.; Physician,Non-Staff [place] [address] Patient Name: MICHAEL WELLER MRN: [facility]:[id number] date: 1985 Sex: F Assigned Patient Location: [facility] Current Patient Location: [facility] Accession/Order Number: [id number] Exam Date: 08/12/2024 16:37 Report Date: 08/12/2024 [...] Villegas M.D. 08/12/2024 4:38 PM Dictation Location: [facility] Electronically authenticated by: [id number] Y Date: 08/12/2024 16:38 Dictated By: Roddy Villegas D.O. Signed By: 08/12/24 1641 DD/ 1638 TD/TT: Mold Sander: [facility] Radiology Study observation (narrative) [facility] US OB BPP W NON-STRESS Ordered By: Radiologist Radiology on 08-12-2024 [facility] Work Phone: US OB FOLLOW UP TRANSABDOMIN [...] II, MD, PHD at 11-Aug-2024 08:51:27 AM [facility] Normal Not Available Comment on above: Order Comment: US OB SCAN FOR GROWTH Estimated Date of Delivery: 10/01/24 Gestational Age as of 07/12/2024: 28w3d US OB BPP W NON-STRESS on 08-06-[address] [address] Ultrasound Report Signed Patient: MICHAEL WELLER MR#: [id number] : 1985 Acct:[id number] Age/Sex: 38 / F ADM Date: 08/05/24 Loc: US Attending Dr: Matt Stapleton D.O. Ordering Physician: Matt Stapleton D.O. Date of Service: 08/05/24 Procedure(s): US OB BPP w non-stress Accession Number(s): [id number] cc: Matt Stapleton D.O.; Physician,Non-Staff M.Cristal [place] [address] Patient Name: MICHAEL WELLER MRN: [facility]:[id number] date: 1985 Sex: F Assigned Patient Location: US Current Patient Location: Accession/Order Number: [id number] Exam Date: 08/06/2024 12:11 Report Date: 08/06/2024 [...] Villegas M.D. 08/06/2024 12:12 PM Dictation Location: [place] [address] Electronically authenticated by: [id number] Y Date: 08/06/2024 12:12 Dictated By: Roddy Villegas D.O. Signed By: 08/06/24 1214 DD/ 1212 TD/TT: Mold Sander: [facility] Radiology, Radiologist, MD - 08/06/2024 [place] [address] Ultrasound Report Signed Patient: MICHAEL WELLER MR#: [id number] : 1985 Acct:[id number] Age/Sex: 38 / F ADM Date: 08/05/24 Loc: US Attending Dr: Matt Stapleton D.O. Ordering Physician: Matt Stapleton D.O. Date of Service: 08/05/24 Procedure(s): US OB BPP w non-stress Accession Number(s): [id number] cc: Matt Stapleton D.O.; Physician,Non-Staff [place] [address] Patient Name: MICHAEL WELLER MRN: [id number] date: 1985 Sex: F Assigned Patient Location: US Current Patient Location: Accession/Order Number: [id number] Exam Date: 08/06/2024 12:11 Report Date: 08/06/2024 [...] Villegas M.D. 08/06/2024 12:12 PM Dictation Location: [place] [address] Electronically authenticated by: [id number] Y Date: 08/06/2024 12:12 Dictated By: Roddy Villegas D.O. Signed By: 08/06/24 1214 DD/ 1212 TD/TT: Mold Sander: [facility] [employer] Radiology Study observation (narrative) [facility] US OB BPP W NON-STRESS Ordered By: Radiologist Radiology on 08-06-2024 [facility] Work Phone: Urinalysis macro (dipstick) panel (U)on 08-02-2024 Bilirubin, UA Negative Negative - 4(70) +++ mg/dL [facility] Blood, UA Negative Negative - 50 Shaun/mcL [facility] Clarity, UA Cloudy [facility] Color, UA Straw [facility] Glucose, UA Negative Negative - 2000(110) ++++ mg/dL [facility] Interpretation and review of laboratory results Abnormal [facility] Ketones, UA Positive Negative - 160(16) ++++ mg/dL [facility] Leukocytes, UA Negative Negative - 500+++ Denys/mcL [facility] Nitrite, UA Negative Negative - Positive [facility] pH, UA 6 5 - 9 [facility] Health[facility] Protein, UA Trace Negative - 1999(20) ++++ mg/dL [facility] Comment on above: 15 Spec Grav, UA 1.025 1 - 1.03 [facility] Urobilinogen, UA 0.2 0.2 - 12 mg/dL [facility] US OB FOLLOW UP TRANSABDOMIN AL APPROACHon [...] II, MD, PHD at 13-Jul-2024 08:42:46 AM [facility] Normal Not Available Comment on above: Order Comment: US OB SCAN FOR GROWTH Estimated Date of Delivery: 10/01/24 Gestational Age as of 06/20/2024: 25w2d Urinalysis macro (dipstick) panel (U)on 07-12-2024 Bilirubin, UA Negative Negative - 4(70) +++ mg/dL [facility] Blood, UA Negative Negative - 50 Shaun/mcL [facility] Clarity, UA Clear [facility] re Color, UA Yellow [facility] Health[facility] Glucose, UA Positive Negative - 1999(110) ++++ mg/dL [facility] Comment on above: 100 Interpretation and review of laboratory results Abnormal [facility] Ketones, UA Negative Negative - 160(16) ++++ mg/dL [facility] Leukocytes, UA Positive Negative - 500+++ Denys/mcL [facility] Comment on above: small Nitrite, UA Negative Negative - Positive [facility] pH, UA 6 5 - 9 [facility] e Protein, UA Positive Negative - 1999(20) ++++ mg/dL [facility] Comment on above: 30 Spec Grav, UA 1.03 1 - 1.03 [facility] Urobilinogen, UA 0.2 0.2 - 12 mg/dL [facility] ALL CBC WITH AUTO DIFFon BASOPHILS ABSOLUTE AUTO 0 [facility] Basophils/100 WBC (Bld) 0.2 % 0.2 - 2.0 % [facility] Eosinophils/100 WBC (Bld) 0 % Low 0.9 - 7.0 % [facility] Erythrocyte distribution width (RBC) [Ratio] 14.1 % 11.0 - 15.0 % [facility] Hematocrit (Bld) [Volume fraction] 32.1 % Low 36.0 - 48.0 % [facility] Hemoglobin (Bld) [Mass/Vol] 10.3 g/dL Low 12.0 - 16.0 g/dL [facility] IMMATURE GRANULOCYTES ABS AUTO 0.06 High [facility] Immature granulocytes/100 WBC (Bld) 0.7 % High 0.0 - 0.5 % [facility] Interpretation and review of laboratory results Abnormal [facility] LYMPHOCYTES ABSOLUTE AUTO 1.5 [facility] Lymphocytes/100 WBC (Bld) 16.1 % Low 20.5 - 60.0 % [facility] MCH (RBC) [Entitic mass] 27.8 pg 26.7 - 34.0 pg [facility] MCHC (RBC) [Mass/Vol] 32.1 g/dL 29.9 - 35.2 g/dL [facility] MCV (RBC) [Entitic vol] 86.5 fL 81.0 - 99.0 fL [facility] MONOCYTES ABSOLUTE AUTO 0.6 [facility] Monocytes/100 WBC (Bld) 6.2 % 1.7 - 12.0 % [facility] NEUTROPHILS ABSOLUTE AUTO 7.1 High [facility] Neutrophils/100 WBC (Bld) 76.8 % High 43.0 - 75.0 % [facility] Platelet mean volume (Bld) [Entitic vol] 12.2 fL 9.5 - 13.5 fL [facility] EO # 0 [facility] TBH PLT 152 [facility] e TB RBC 3.71 Low [facility] e TB WBC 9.2 [facility] No Panel Informationon 06-30 [facility] Platelet counton 06-30-2024 Platelets (Bld) [#/Vol] 152 10*3/uL [facility] Urinalysis macro (dipstick) panel (U)on 06-20-2024 Bilirubin, UA Negative Negative - 4(70) +++ mg/dL [facility] Blood, UA Negative Negative - 50 Shaun/mcL [facility] Clarity, UA Clear [facility] re Color, UA Yellow [facility] e Glucose, UA Positive Negative - 1999(110) ++++ mg/dL [facility] Comment on above: 100mg/dL Interpretation and review of laboratory results Abnormal [facility] Ketones, UA Negative Negative - 160(16) ++++ mg/dL [facility] Leukocytes, UA Positive Negative - 500+++ Denys/mcL [facility] Comment on above: small Nitrite, UA Negative Negative - Positive [facility] pH, UA 6 5 - 9 [facility] e Protein, UA Positive Negative - 1999(20) ++++ mg/dL [facility] Comment on above: 30mg/dL Spec Grav, UA 1.03 1 - 1.03 [facility] Urobilinogen, UA 0.2 0.2 - 12 mg/dL [facility] US OB 14+ WEEKS ANATOMY SCAN on [...] 3. Unremarkable ultrasound of the anatomy. Electronically Signed:Cecily y signed by BELA MARIA II, MD, PHD at 24-May-2024 12:33:10 AM [facility] Normal Not Available Comment on above: Order Comment: US OB ANATOMY SINGLE W US OB CERVICAL LENGTH Estimated Date of Delivery: 10/01/24 Gestational Age as of 04/14/2024: 15w5d AFP, SERUM, OPEN SPINA BIFID Aon 05-06-2024 AFP MOM 1.80 . [facility] AFP VALUE 65.1 ng/mL . [facility] COMMENT: Comment . [facility] Comment on above: Annalee Akhtar , Ph.D., [facility] Director References: Available Upon Request. Multiples Of Median Cutoffs For AFP Elevations George 2.5 Black 2.8 IDD 2.0 Twins 4.5 Abbreviation Definitions IDD - Insulin Dep Diabetes OSBR - Open Spina Bifida Risk For further inquiries contact [employer] at [phone]. This test was developed and its performance characteristics determined by [employer]. It has not been cleared or approved by the Food and Drug Administration. Performed at: [facility] [address] [place], [place] [id number] Note Taker: Yaneli Sandoval [facility], Phone: [phone] GEST. AGE ON COLLECTION DATE 18.4 . weeks [facility] GESTAT. AGE BASED ON Ultrasound . [facility] Comment on above: 15.7 on 04/14/2024 Recalculations are not recommended when gestational dating by LMP and ultrasound are within 10 days. INSULIN DEP DIABETES No . [facility] INTERPRETATION Comment . [facility] Comment on above: Interpretation: Scre en Negative [...] Customer Services to discuss available options. [employer] recommends amniocentesis be offered to women age 35 and older. [age]ALIA [age] [facility] MULTIPLE GESTATION No . [facility] H [facility]althcare OSBR RISK 1 [place] 1278 . [facility] RACE . [facility] RESULTS Report . [facility] TEST RESULTS: Negative . [facility] care WEIGHT 216 . lbs [facility] Health[facility] e N N ULTRASOUND [id number] 15 N 1 216 N N N N N White/ [facility] Healthcar e Urinalysis macro (dipstick) panel (U)on 04-14-2024 Bilirubin, UA Negative Negative - 4(70) +++ mg/dL [facility] Blood, UA Positive Negative - 50 Shaun/mcL [facility] Healthcare Comment on above: trace-intact Clarity, UA Clear [facility] Color, UA Yellow [facility] Glucose, UA Positive Negative - 1999(110) ++++ mg/dL [facility] Comment on above: 100 Interpretation and review of laboratory results Abnormal [facility] Ketones, UA Negative Negative - 160(16) ++++ mg/dL [facility] Leukocytes, UA Trace Negative - 500+++ Denys/mcL [facility] Healthcare Nitrite, UA Negative Negative - Positive [facility] pH, UA 5.5 5 - 9 [facility] Health[facility] e Protein, UA Negative Negative - 1999(20) ++++ mg/dL [facility] Spec Grav, UA 1.025 1 - 1.03 [facility] Urobilinogen, UA 0.2 0.2 - 12 mg/dL [facility] Urinalysis macro (dipstick) panel (U)on 03-16-2024 Bilirubin, UA Negative Negative - 4(70) +++ mg/dL [facility] Blood, UA Negative Negative - 50 Shaun/mcL [facility] Clarity, UA Clear [facility] Healthca re Color, UA Yellow [facility] Healthcar e Glucose, UA Negative Negative - 1999(110) ++++ mg/dL [facility] Interpretation and review of laboratory results Normal [facility] Ketones, UA Negative Negative - 160(16) ++++ mg/dL [facility] Leukocytes, UA Negative Negative - 500+++ Denys/mcL [facility] Healthcare Nitrite, UA Negative Negative - Positive [facility] pH, UA 5.5 5 - 9 [facility] Protein, UA Negative Negative - 1999(20) ++++ mg/dL [facility] Spec Grav, UA 1.025 1 - 1.03 [facility] Urobilinogen, UA 1.0 0.2 - 12 mg/dL [facility] CBC without diffon Hematocrit (Bld) [Volume fraction] 38.7 % [facility] Hemoglobin (Bld) [Mass/Vol] 12.6 g/dL [facility] Platelets (Bld) [#/Vol] 200 10*3/uL [facility] Rbc Mcv (Fl) By Automated Count 85.1 [facility] Drug Screen, Urineon 024 Amphetamine/Methamphe tamine Negative [facility] Barbiturates Negative [facility] Benzodiazepines Negative [facility] Cocaine Metabolite Negative [facility] Methadone Negative [facility] Opiates Negative [facility] Oxycodone Negative [facility] Phencyclidine Negative [facility] Thc Marijuana, Urine Negative [facility] HBV surface Ag IA Qlon 03-08 Hepatitis B Surface Antigen Negative [facility] HCV Ab IA Qlon 03-08-2024 HCV Ab Ql (S) Negative [facility] HIV 1+2 Ab+HIV1 p24 Ag IA Ql on 03-08-2024 HIV 1&2 AB/AG Non-Reactive [facility] MLR HEMOGLOBIN A1Con 024 Glucose [Mass/Vol] 105 mg/dL [facility] HbA1c (Bld) [Mass fraction] 5.3 % 4.5 - 6.2 % [facility] Comment on above: ADA RECOMMENDED LIMI T 4.0 - 6.0 ADA THERAPEUTIC TARGET < 7.0 ACTION SUGGESTED > 7.0 [facility] No Panel Informationon 03-08 [facility] Rubella IGG immune statuson 03-08-2024 Rubella immune IgG IMMUNE [facility] T. pallidum IgG+IgM IA Ql (S )on 03-08-2024 Syphilis Non-Reactive [facility] Type and screenon 03-08-2024 Abo/Rh(D) Positive [facility] Urine Cultureon 03-08-2024 Bacteria identified Cx Nom (U) 75,000 colonies/ml mixed bacterial skin contaminants 2 Days PERFORMED BY: [facility] [address] [place] [address] PATHOLOGIST [employer] LASHONDA HARMON M.D. Normal [facility] Comment on above: Performed By: #### C UU #### [facility] [address] [place] [id number] [facility] HCG ( test) Ql (U)o n 02-16-2024 Interpretation and review of laboratory results Abnormal [facility] Preg Test, Ur Positive Negative [facility] care [facility] Urinalysis macro (dipstick) panel (U)on 02-16-2024 Bilirubin, UA Negative Negative - 4(70) +++ mg/dL [facility] Blood, UA Negative Negative - 50 Shaun/mcL [facility] Clarity, UA Clear [facility] re Color, UA Yellow [facility] e Glucose, UA Negative Negative - 1999(110) ++++ mg/dL [facility] Interpretation and review of laboratory results Normal [facility] Ketones, UA Negative Negative - 160(16) ++++ mg/dL [facility] Leukocytes, UA Negative Negative - 500+++ Denys/mcL [facility] Nitrite, UA Negative Negative - Positive [facility] pH, UA 6.5 5 - 9 [facility] Protein, UA Negative Negative - 1999(20) ++++ mg/dL [facility] Spec Grav, UA 1.02 1 - 1.03 [facility] Urobilinogen, UA 1.0 0.2 - 12 mg/dL [facility] TBH PREG QUANT HCGon 01-27- 024 HCG QUANTITATIVE 29619 mIU/mL [facility] Comment on above: 5-50 0.2-1 WEEK 50-500 1-2 WEEKS 100-5,000 2-3 WEEKS 500-10,000 3-4 WEEKS 1,000-50,000 4-5 WEEKS 10,000-100,000 5-6 WEEKS 15,000-200,000 6-8 WEEKS 10,000-100,000 2-3 MONTHS [facility] TBH PREG QUANT HCGon 01-25- 024 HCG QUANTITATIVE 5650 mIU/mL [facility] Comment on above: 5-50 0.2-1 WEEK 50-500 1-2 WEEKS 100-5,000 2-3 WEEKS 500-10,000 3-4 WEEKS 1,000-50,000 4-5 WEEKS 10,000-100,000 5-6 WEEKS 15,000-200,000 6-8 WEEKS 10,000-100,000 2-3 MONTHS [facility]IN[facility] HCG ( test) Ql (U)o n 01-05-2024 Interpretation and review of laboratory results Normal [facility] Work Phone: Preg Test, Ur Negative Negative [facility] Work Phone: [facility] Work Phone: POCT UA Automated manually r esultedon 01-05-2024 Appearance (U) Cloudy Abnormal Clear [facility] Work Phone: Glucose Test strip (U) [Mass/Vol] Negative NEGATIVE mg/dl [facility] Work Phone: Hemoglobin Ql (U) Negative NEGATIVE [facility] Work Phone: Interpretation and review of laboratory results Abnormal [facility] Work Phone: Leukocyte esterase Test strip Ql (U) SMALL (1+) Abnormal NEGATIVE [facility] Work Phone: Nitrite Ql (U) Positive Abnormal NEGATIVE [facility] Work Phone: pH (U) 7.5 [pH] No Reference Range Established [facility] Work Phone: POC Bilirubin, Urine Negative NEGATIVE [facility] Work Phone: POC Color, Urine Yellow Straw, [place] ow, Light-Yellow [facility] Work Phone: POC Ketones, Urine Negative NEGATIVE mg/dl [facility] Work Phone: POC Protein, Urine Negative NEGATIVE, 30 (1+) mg/dl [facility] Work Phone: POC Specific [place], Urine 1.010 1.005 - 1.[address] [facility] Work Phone: POC Urobilinogen, Urine 0.2 0.2, 1.0 EU/DL [facility] Work Phone: [facility] Work Phone: IGP,APTIMA HPV,AGE GDLNon AGE GDLN ACOG TESTING Note . [facility] Comment on above: TESTS RESULT FLAG UN ITS REF RANGE LAB Clinician Provided Cytology Information Source.............Cervix;Endocervix No. of containers..01 ThinPrep Vial Age Algo ACOG Katherin... FLAG LEGEND: L-Low Normal,H-High Normal,LL-Alert Low,HH-Alert High <-Panic Low,>-Panic High,A-Abnormal,AA-Critical Abnormal Performed at: 01 =G [address] [place] [address] Lacy Perez MD, HPV APTIMA Negative Negative [facility] Comment on above: This nucleic acid am plification test detects fourteen high- risk HPV types (16,18,31,33,35,39,45,51,52,56,58,59,66,68) without differentiation. Performed at: =[address] [id number] Note Taker: Lacy Perez MD, Phone: [phone] Performed at: [address] [id number] Note Taker: Lacy Perez MD, Phone: [phone] IGP, APTIMA HPV, RFX 16/18,45 Note . [facility] Comment on above: TESTS RESULT FLAG UN ITS REF RANGE LAB DIAGNOSIS: 02 NEGATIVE FOR INTRAEPITHELIAL LESION OR MALIGNANCY. Specimen adequacy: 02 Satisfactory for evaluation. Endocervical and/or squamous metaplastic cells (endocervical component) are present. Performed by: 02 Maryse Tang, Recycling Director (ASCP) . 02 Note: Note 02 The [...] Low,>-Panic High,A-Abnormal,AA-Critical Abnormal Performed at: [address] [place] [address] Lacy Perez MD, BRUSH-SPATULA CERVIX [facility]OC[facility]IX [facility] Healthcar e Urine Cultureon 09-05-2023 Bacteria identified Cx Nom (U) <9,000 colonies/ml mixed bacterial skin contaminants 2 Days PERFORMED BY: [facility] [address] [id number] PATHOLOGIST STEEL HANDLER DAVID CHILD M.D. Normal [facility] Comment on above: Performed By: #### C UU #### [facility] [address] [id number] [facility] Drugs of abuse screen W Refl ex confirm panel (U)on 02-19-2023 Amphetamines Screen Ql (U) Negative Normal Presumptive Negative [facility] Comment on above: Order Comment: [...] By: #### 8 7428-9 #### ALEJANDRO RAMOS ([id number]) [facility] ([facility]) [address] [place] [address] Barbiturates Screen Ql (U) Negative Normal Presumptive Negative [facility] Comment on above: Order Comment: [...] 8 7428-9 #### ALEJANDRO SUERO RIO REN ([id number]) [facility] ([facility] [address] [place] [address] Benzodiazepines Ql (U) Negative Normal Presumptive Negative [facility] Comment on above: Order Comment: [...] By: #### 8 7428-9 #### ALEJANDRO RAMOS ([id number]) [facility] ([facility]) [address] [place] [address] Benzoylecgonine Screen Ql (U) Negative Normal Presumptive Negative [facility] Comment on above: Order Comment: [...] 8 7428-9 #### ALEJANDRO SUERO RIO REN ([id number]) [facility] ([facility]) [address] [place] [address] Cannabinoids Screen Ql (U) Negative Normal Presumptive Negative [facility] Comment on above: Order Comment: [...] By: #### 8 7428-9 #### ALEJANDRO RAMOS ([id number]) [facility] ([facility]) [address] [place] [address] fentaNYL+Norfentanyl Screen Ql (U) Negative Normal Presumptive Negative [facility] Comment on above: Order Comment: [...] By: #### 8 7428-9 #### ALEJANDRO RAMOS ([id number]) [facility] ([facility]) [address] [place] [address] Opiates Screen Ql (U) Negative Normal Presum ptive Negative [facility] Comment on above: Order Comment: [...] By: #### 8 7428-9 #### ALEJANDRO RAMOS ([id number]) [facility] ([facility]) [address] [place] [address] oxyCODONE+oxyMORphone Screen Ql (U) Negative Normal Presumptive Negative [facility] Comment on above: Order Comment: [...] By: #### 8 7428-9 #### ALEJANDRO RAMOS ([id number]) [facility] ([facility]) [address] [place] [address] Phencyclidine Ql (U) Negative Normal Presump tive Negative [facility] Comment on above: Order Comment: [...] By: #### 8 7428-9 #### ALEJANDRO RAMOS ([id number]) [facility] ([facility]) [address] [place] [address] BI MAMMO BILATERAL DIAGNOSTI C TOMOSYNTHESISon 12-19-2022 BI MAMMO BILATERAL DIAGNOSTIC TOMOSYNTHESIS Interpreted By: Mohan Romano and Avery Ross STUDY: BI MAMMO BILATERAL DIAGNOSTIC TOMOSYNTHESIS; BI US BREAST LIMITED LEFT; 12/19/2022 9:42 am; 12/19/2022 10:52 am ACCESSION NUMBER(S): [id number]; [id number] ORDERING CLINICIAN: KAROLINA MAN INDICATION: Annual screening [...] axillary abnormality was performed by a registered auto self service station attendant. No sonographic abnormalities are seen in the [...] any future breast imaging appointments, please call [phone] ([phone]). MACRO: None Signed by: Mohan Romano 12/19/2022 11:32 AM Dictation workstation: [id number] [facility] BI US BREAST LIMITED LEFTon 12-19-2022 BI US BREAST LIMITED LEFT Interpreted By: Mohan Romano, Jenn Wei STUDY: BI MAMMO BILATERAL DIAGNOSTIC TOMOSYNTHESIS; BI US BREAST LIMITED LEFT; 12/19/2022 9:42 am; 12/19/2022 10:52 am ACCESSION NUMBER(S): [id number]; [id number] ORDERING CLINICIAN: KAROLINA MAN INDICATION: Annual screening [...] axillary abnormality was performed by a registered auto self service station attendant. No sonographic abnormalities are seen in the [...] any future breast imaging appointments, please call [phone] ([phone]). MACRO: None Signed by: Mohan Romano 12/19/2022 11:32 AM Dictation workstation: [id number] [facility] DBT Breast - bilateral diagn osticon 12-19-2022 Radiology Study observation (narrative) [facility] Work Phone: No Panel Informationon 12-19 1. No mammographic or targeted sonographic abnormality [...] any future breast imaging appointments, please call [phone] ([phone]). MACRO: None Signed by: Mohan Romano 12/19/2022 11:32 AM Dictation workstation: [id number] MMODAL Interpreted By: Mohan Romano, and Jakob Wei STUDY: BI MAMMO BILATERAL DIAGNOSTIC TOMOSYNTHESIS; BI US BREAST LIMITED LEFT; 12/19/2022 9:42 am; 12/19/2022 10:52 am ACCESSION NUMBER(S): [id number]; [id number] ORDERING CLINICIAN: KAROLINA MAN INDICATION: Annual screening [...] axillary abnormality was performed by a registered auto self service station attendant. No sonographic abnormalities are seen in the area of the patient's reported palpable lump or pain. 3 morphologically normal lymph nodes are incidentally seen. MMODAL No Panel InformationOrdered By: Mohan Romano on 12-19-[address] [facility] Work Phone: US Breast - left limitedon 1 Radiology Study observation (narrative) [facility] Work Phone: COMPREHENSIVE PANELon 2022 Albumin [Mass/Vol] 4.6 g/dL Normal 3.4 - 5.0 [facility] Comment on above: Performed By: #### C MP #### [facility] [address] [place] [address] ALP [Catalytic activity/Vol] 63 U/L Normal 33 - 110 [facility] Comment on above: Performed By: #### C MP #### [facility] [address] [place] [address] ALT [Catalytic activity/Vol] 23 U/L Normal 7 - 45 [facility] Comment on above: Result Comment: Lacie ents treated with Sulfasalazine may generate falsely decreased results for ALT. Performed By: #### C MP #### [facility] [address] [place] [address] Anion gap [Moles/Vol] 14 mmol/L Normal 10 - 20 [facility] Comment on above: Performed By: #### C MP #### [facility] [address] [place] [address] AST [Catalytic activity/Vol] 22 U/L Normal 9 - 39 [facility] Comment on above: Performed By: #### C MP #### [facility] [address] [place] [address] Bilirubin [Mass/Vol] 0.3 mg/dL Normal 0.0 - 1.2 [facility] Comment on above: Performed By: #### C MP #### [facility] [address] [place] [address] Calcium [Mass/Vol] 9.2 mg/dL Normal 8.6 - 10.6 [facility] Comment on above: Performed By: #### C MP #### [facility] [address] [place] [address] Chloride [Moles/Vol] 102 mmol/L Normal 98 - 107 [facility] Comment on above: Performed By: #### C MP #### [facility] [address] [place] [address] Creatinine [Mass/Vol] 0.66 mg/dL Normal 0.50 - 1.05 [facility] Comment on above: Performed By: #### C MP #### [facility] [address] [place] [address] eGFR FEMALE >90 Normal >90 [facility] Comment on above: Result Comment: CALC ULATIONS OF ESTIMATED GFR ARE PERFORMED USING THE 2020 CKD-EPI STUDY REFIT EQUATION WITHOUT THE RACE VARIABLE FOR THE IDMS-TRACEABLE CREATININE METHODS. https://jasn.asnjournals.org/content/early//ASN.711035 1120 Performed By: #### C MP #### [facility] [address] [place] [address] Glucose [Mass/Vol] 82 mg/dL Normal 74 - 99 [facility] Comment on above: Performed By: #### C MP #### [facility] [address] [place] [address] HCO3 (Bld) [Moles/Vol] 25 mmol/L Normal 21 - 32 [facility] Comment on above: Performed By: #### C MP #### [facility] [address] [place] [address] Potassium [Moles/Vol] 3.9 mmol/L Normal 3.5 - 5.3 [facility] Comment on above: Performed By: #### C MP #### [facility] [address] [place] [address] Protein [Mass/Vol] 7.2 g/dL Normal 6.4 - 8.2 [facility] Comment on above: Performed By: #### C MP #### [facility] [address] [place] [address] Sodium [Moles/Vol] 137 mmol/L Normal 136 - 145 [facility] Comment on above: Performed By: #### C MP #### [facility] [address] [place] [address] Urea nitrogen [Mass/Vol] 17 mg/dL Normal 6 - 23 [facility] Comment on above: Performed By: #### C MP #### [facility] [address] [place] [address] VITAMIN D, 25-HYDROXYon 11-08 VITAMIN D, 25-HYDROXY 36 ng/mL Normal [facility] Comment on above: Result Comment: . DEFICIENCY: < 20 NG/ML INSUFFICIENCY: 20-29 NG/ML SUFFICIENCY: 30-100 NG/ML THIS ASSAY ACCURATELY QUANTIFIES THE SUM OF VITAMIN D3, 25-HYDROXY AND VIT D2,25-HYDROXY. Performed By: #### V TDOH #### [facility] [address] [place] [address] COMPREHENSIVE PANELon 2022 Lab Specimen Source Normal [facility] Comment on above: Performed By: #### C MP #### [facility] [address] [place] [address] Performed By: #### V TDOH #### [facility] [address] [place] [address] XR foot RT min 3V*on 023 XR foot RT min 3V* [facility] [employer] Other XR foot RT min 3V* [facility] [employer] Other XR foot RT min 3V* [address] [place] [address] [employer] Other XR foot RT min 3V* [place] [address] [employer] Other XR foot RT min 3V* XRay Report [employer] Other XR foot RT min 3V* Signed [employer] Other XR foot RT min 3V* Patient: Michael Weller MR#: [id number] [employer] Other XR foot RT min 3V* [id number] [employer] Other XR foot RT min 3V* : 1985 Acct:[id number] [employer] Other XR foot RT min 3V* Age/Sex: 36 / F ADM Date: 07/02/22 [employer] Other XR foot RT min 3V* Loc: [id number] Room: Type: [facility] [employer] Other XR foot RT min 3V* Attending Dr: Bolivar Sherman [facility] [employer] Other XR foot RT min 3V* Copies to: Bolivar Sherman [email or web address] [employer] Other XR foot RT min 3V* Ordering Provider: Bolivar Sherman [email or web address] [employer] Other XR foot RT min 3V* Date of Service: 07/02/22 [employer] Other XR foot RT min 3V* XR/XR foot RT min 3V*: Right foot pain [facility] [employer] Other XR foot RT min 3V* 3 views RIGHT foot [facility] [employer] Other XR foot RT min 3V* COMPARISON:None N [facility] [employer] Other XR foot RT min 3V* HISTORY: RIGHT 5th metatarsal pain for one week [facility] [employer] Other XR foot RT min 3V* Acute findings: None [employer] Other XR foot RT min 3V* Degenerative change: Unremarkable [employer] Other XR foot RT min 3V* Soft tissue findings: Unremarkable [employer] Other XR foot RT min 3V* Joint effusion: None [employer] Other XR foot RT min 3V* Postop changes: None [employer] Other XR foot RT min 3V* XR/XR foot RT min 3V* [employer] Other XR foot RT min 3V* IMPRESSION:No acute findings [employer] Other XR foot RT min 3V* Impression dictated by: Roddy Villegas M.D.07/02/2022 1:27 PM [facility] [employer] Other XR foot RT min 3V* Dictation Location: [address] [address] [employer] Other XR foot RT min 3V* Transcribed By: PWS 07/02/[address] [place] [address] [employer] Other XR foot RT min 3V* Dictated By: Roddy Villegas DO 07/02/[address] [place] [address] [employer] Other XR foot RT min 3V* Signed By: [employer] Other XR foot RT min 3V* 07/02/[address] [place] [address] [employer] Other Office Visit (Primary Care F orms)on [...] Anxiety; YOEL = N; Verified Transmission to [id number]; Last Updated By: System, [employer]; 02/10/2022 3:45:08 PM Chief Complaint An interactive [...] no weight change and no temperature intolerance. Hematologic/Lymphati c: no easy bruising and no swollen glands. [...] BREAST ULTRASOUND; 10/14/2021 3:38 pm ACCESSION NUMBER(S): [id number] ORDERING CLINICIAN: GRAZYNA ROMANO INDICATION: Patient presents with right axillary painful palpable mass for the last 2 years. History of benign right breast mass with unknown pathology in right breast. COMPARISON: Mammogram 06/21/2021, 07/06/2018, 01/08/2018. Breast ultrasound 06/21/2021, 04/23/2020, 07/15/2019, 02/02/2019 FINDINGS: Targeted ultrasound was performed of the right axilla by a registered auto self service station attendant using elastography. Within the right axilla, no sonographic abnormality is present. The tissues are soft on elastography. Incidental note of normal appearing right axillary lymph node. IMPRESSION: No sonographic evidence of malignancy. Recommendation is clinical follow-up for patient's symptomatology. Screening mammogram in June 2022. BI-RADS CATEGORY: Category: 2 - Benign. Recommendation: Clinical follow-up for symptomatology. For any future breast imaging appointments, please call [phone] ([phone]). I personally reviewed the images/study and I agree with the findings as stated by president and chief commercial officer Brandt Camarillo MD. Electronically signed by: JAYME STEWART MD Normal [facility] [place] 10-14-2021 MG Breast Screening Normal [facility] Work Phone: Albumin [Mass/volume] in Ser um or PlasmaOrdered By: Kp Alvares on 10-07-2021 Albumin [Mass/Vol] 3.9 g/dL 3.2-5.5 [facility] Basophils Auto (Bld) [#/Vol] Ordered By: Kp Alvares on 10-07-2021 Basophils (Bld) [#/Vol] 0.0 10*3/uL 0.0-0.2 [facility] Basophils/100 WBC Auto (Bld) Ordered By: Kp Alvares on 10-07-2021 Basophils/100 WBC (Bld) 0.6 % . [facility] Blood hemoglobin measurement (mass/volume)Ordered By: Kp Alvares on 10-07-2021 Hemoglobin (Bld) [Mass/Vol] 12.9 g/dL 11.8-15.4 [facility] Blood leukocytes automated c ount (number/volume)Ordered By: Kp Alvares on 10-07-2021 WBC (Bld) [#/Vol] 6.7 10*3/uL 4.5-11.0 [facility] Cholesterol [Mass/volume] in Serum or PlasmaOrdered By: Kp Alvares on 10-07-2021 Cholesterol [Mass/Vol] 192 mg/dL 140-200 [facility] Comment on above: Chol less than 200 m g/dl low risk Chol 201-239 mg/dl borderline risk Chol 240 mg/dl and greater high risk Cholesterol in LDL Calc [Mas s/Vol]Ordered By: Kp Alvares on 10-07-2021 Cholesterol in LDL [Mass/Vol] 104 mg/dL 0-100 [facility] Comment on above: LDL ATP III CLASSIFI CATION LDL less than 100 mg/dL Optimal LDL 100-129 mg/dL Near or above optimal LDL 130-159 mg/dL Borderline high LDL 160-189 mg/dL High LDL greater than 189 mg/dL Very high Cholesterol in VLDL Calc [Ma ss/Vol]Ordered By: Kp Alvares on 10-07-2021 Cholesterol in VLDL [Mass/Vol] 49 mg/dL [facility] Creatinine and Glomerular fi ltration rate.predicted panel (S/P/Bld)Ordered By: Kp Alvares on 10-07-2021 Creatinine [Mass/Vol] 0.60 mg/dL 0.44-1.03 [facility] Eosinophils Auto (Bld) [#/Vo l]Ordered By: Kp Alvares on 10-07-2021 Eosinophils (Bld) [#/Vol] 0.0 10*3/uL 0.0-0.45 [facility] Eosinophils/100 WBC Auto (Bl d)Ordered By: Kp Alvares on 10-07-2021 Eosinophils/100 WBC (Bld) 0.1 % . [facility] Erythrocyte distribution wid th Auto (RBC) [Ratio]Ordered By: Kp Alvares on 10-07-2021 Erythrocyte distribution width (RBC) [Ratio] 14.1 % 11.9-15.3 [facility] Estimated glomerular filtrat ion rate (GFR) non- AmericanOrdered By: Kp Alvares on 10-07-2021 GFR/1.73 sq M.predicted among non-blacks MDRD (S/P/Bld) [Vol rate/Area] > 60 mL/Min [facility] Globulin Calc (S) [Mass/Vol] Ordered By: Kp Alvares on 10-07-2021 Globulin (S) [Mass/Vol] 2.7 g/dL [facility] Hematocrit Auto (Bld) [Volum e fraction]Ordered By: Kp Alvares on 10-07-2021 Hematocrit (Bld) [Volume fraction] 39.2 % 34.0-46.4 [facility] Laboratory - Hematology and Cell countsOrdered By: Kp Alvares on 10-07-2021 Nucleated RBC/100 WBC (Bld) [Ratio] 0.0 % 0-0.5 [facility] Lymphocytes Auto (Bld) [#/Vo l]Ordered By: Kp Alvares on 10-07-2021 Lymphocytes (Bld) [#/Vol] 2.0 10*3/uL 1.00-4.8 [facility] Lymphocytes/100 WBC Auto (Bl d)Ordered By: Kp Alvares on 10-07-2021 Lymphocytes/100 WBC (Bld) 30.2 % . [facility] MCH Auto (RBC) [Entitic mass ]Ordered By: Kp Alvares on 10-07-2021 MCH (RBC) [Entitic mass] 28.2 pg 24.7-34.3 [facility] MCHC Auto (RBC) [Mass/Vol]Or dered By: Kp Alvares on 10-07-2021 MCHC (RBC) [Mass/Vol] 33.0 g/dL 32.0-35.0 [facility] MCV Auto (RBC) [Entitic vol] Ordered By: Kp Alvares on 10-07-2021 MCV (RBC) [Entitic vol] 85.5 fL 80-100 [facility] Monocytes Auto (Bld) [#/Vol] Ordered By: Kp Alvares on 10-07-2021 Monocytes (Bld) [#/Vol] 0.4 10*3/uL 0.0-0.8 [facility] Monocytes/100 WBC Auto (Bld) Ordered By: Kp Alvares on 10-07-2021 Monocytes/100 WBC (Bld) 5.4 % . [facility] Neutrophils Auto (Bld) [#/Vo l]Ordered By: Kp Alvares on 10-07-2021 Neutrophils (Bld) [#/Vol] 4.2 10*3/uL 1.8-7.7 [facility] Neutrophils/100 WBC Auto (Bl d)Ordered By: Kp Alvares on 10-07-2021 Neutrophils/100 WBC (Bld) 63.7 % . [facility] No Panel InformationOrdered By: Kp Alvares on 10-07-2021 Estimated GFR () > 60 mL/Min [facility] Comment on above: GFR estimated refere nce range: According to KDOQI guidelines, <60 ml/min/1.73m2 is sufficient to diagnose a patient with chronic kidney disease. Pharmacy Creatinine Clearance (Chem N/A [facility] Platelet mean volume Auto (B ld) [Entitic vol]Ordered By: Kp Alvares on 10-07-2021 Platelet mean volume (Bld) [Entitic vol] 11.4 fL 6.3-10.7 [facility] Platelets Auto (Bld) [#/Vol] Ordered By: Kp Alvares on 10-07-2021 Platelets (Bld) [#/Vol] 164 10*3/uL 150-450 [facility] Protein [Mass/volume] in Ser um or PlasmaOrdered By: Kp Alvares on 10-07-2021 Protein [Mass/Vol] 6.6 g/dL 6.1-7.9 [facility] RBC Auto (Bld) [#/Vol]Ordere d By: Kp Alvares on 10-07-2021 RBC (Bld) [#/Vol] 4.59 10*6/uL 3.60-5.00 [facility] Serum or plasma alanine bynum otransferase measurement without P-5'-P (enzymatic activiOrdered By: Kp Alvares on 10-07-2021 ALT No additional P-5'-P [Catalytic activity/Vol] 16 U/L 10-60 [facility] Serum or plasma albumin/glob ulin mass ratioOrdered By: Kp Alvares on 10-07-2021 Albumin/Globulin [Mass ratio] 1.4 {ratio} [facility] Serum or plasma alkaline jenn sphatase measurement (enzymatic activity/volume)Ordered By: Kp Alvares on 10-07-2021 ALP [Catalytic activity/Vol] 55 U/L 32-92 [facility] Serum or plasma aspartate am inotransferase measurement (enzymatic activity/volume)Ordered By: Kp Alvares on 10-07-2021 AST [Catalytic activity/Vol] 16 U/L 10-42 [facility] Serum or plasma calcium marlon urement (mass/volume)Ordered By: Kp Alvares on 10-07-2021 Calcium [Mass/Vol] 9.2 mg/dL 8.2-10.2 [facility] Serum or plasma chloride any surement (moles/volume)Ordered By: Kp Alvares on 10-07-2021 Chloride [Moles/Vol] 102 mmol/L 95-114 [facility] Serum or plasma glucose marlon urement (mass/volume)Ordered By: Kp Alvares on 10-07-2021 Glucose [Mass/Vol] 86 mg/dL 70-100 [facility] Comment on above: ADA recommended refe rence range Random Glucose Reference Range is dependent on time and content of last meal. Glucose of more than 200 mg/dL in a nonstressed, ambulatory subject supports the diagnosis of Diabetes Mellitus. Serum or plasma high density lipoprotein (HDL) cholesterol measurementOrdered By: Kp Alvares on 10-07-2021 Cholesterol in HDL [Mass/Vol] 39 mg/dL 35-85 [facility] Comment on above: HDL CHOL ATP-III CLA SSIFICATION Cardiovascular Risk HDL > or equal to 60 mg/dL LOW HDL < 40 mg/dL HIGH Serum or plasma potassium me asurement (moles/volume)Ordered By: Kp Alvares on 10-07-2021 Potassium [Moles/Vol] 4.1 mmol/L 3.5-5.1 [facility] Serum or plasma sodium measu rement (moles/volume)Ordered By: Kp Alvares on 10-07-2021 Sodium [Moles/Vol] 134 mmol/L 136-146 [facility] Serum or plasma total biliru bin measurement (mass/volume)Ordered By: Kp Alvares on 10-07-2021 Bilirubin [Mass/Vol] 0.6 mg/dL 0.3-1.2 [facility] Serum or plasma total carbon dioxide measurement (moles/volume)Ordered By: Kp Alvares on 10-07-2021 CO2 [Moles/Vol] 25.9 mmol/L 22.0-30.0 [facility] Serum or plasma total choles terol/high density lipoprotein (HDL) cholesterol mass ratOrdered By: Kp Alvares on 10-07-2021 Cholesterol.total/Cho lesterol in HDL [Mass ratio] 4.9 {ratio} <5.0 [facility] Serum or plasma urea nitroge n measurement (mass/volume)Ordered By: Kp Alvares on 10-07-2021 Urea nitrogen [Mass/Vol] 10 mg/dL 9-23 [facility] TSH DL <= 0.005 mIU/L QnOrde red By: Kp Alvares on 10-07-2021 TSH Qn 2.68 m[IU]/L 0.45-5.33 [facility] Triglyceride [Mass/volume] i n Serum or PlasmaOrdered By: Kp Alvares on 10-07-2021 Triglyceride [Mass/Vol] 246 mg/dL 35-149 [facility] Comment on above: TRIG ATP III CLASSIF ICATION TRIG less than 150 mg/dL Normal TRIG 150-199 mg/dL Borderline high TRIG 200-500 mg/dL High TRIG greater than 500 mg/dL Very high Standard traceable to the Center for Disease Conrtrol and Prevention (CDC) test method. CBC AUTO DIFFon 07-12-2021 BASO # 0.0 103/ul Normal 0.0-0.1 [facility] Comment on above: Performed By: #### C BC #### [facility] [address] [place] [address] Dr. Kalyn Gutierrez Basophils/100 WBC (Bld) 0.4 % Normal 0.2-2.0 [facility] Comment on above: Performed By: #### C BC #### [facility] [address] [address] [address] Kalyn Gutierrez EO # 0.0 103/ul Normal 0.0-0.7 [facility] Comment on above: Performed By: #### C BC #### [facility] [address] [place] [address] Dr. Kalyn Gutierrez Eosinophils/100 WBC (Bld) 0.0 % Critically low 0.9-7.0 [facility] Comment on above: Performed By: #### C BC #### [facility] [address] [place] [address] Dr. Kalyn Gutierrez Erythrocyte distribution width (RBC) [Ratio] 12.8 % Normal 11.0-15.0 [facility] Comment on above: Performed By: #### C BC #### [facility] [address] [place] [address] Dr. Kalyn Gutierrez Hematocrit (Bld) [Volume fraction] 38.8 % Normal 36.0-48.0 [facility] Comment on above: Performed By: #### C BC #### [facility] [address] [place] [address] Dr. Kalyn Gutierrez Hemoglobin (Bld) [Mass/Vol] 12.4 g/dL Normal 12.0-16.0 [facility] Comment on above: Performed By: #### C BC #### [facility] [address] [place] [address] Dr. Kalyn Gutierrez IG # 0.02 10e3/ul Normal 0.00-0.03 [facility] Comment on above: Performed By: #### C BC #### [facility] [address] [place] [address] Dr. Kalyn Gutierrez IG % 0.3 % Normal 0.0-0.5 [facility] Comment on above: Performed By: #### C BC #### [facility] [address] [place] [address] Dr. Kalyn Gutierrez LYMPH # 1.8 103/ul Normal 1.2-3.8 [facility] Comment on above: Performed By: #### C BC #### [facility] [address] [place] [address] Dr. Kalyn Gutierrez Lymphocytes/100 WBC (Bld) 25.0 % Normal 20.5-60.0 [facility] Comment on above: Performed By: #### C BC #### [facility] [address] [place] [address] Dr. Kalyn Gutierrez MANUAL DIFF REQ NO Normal [facility] Comment on above: Performed By: #### C BC #### [facility] [address] [place] [address] Dr. Kalyn Gutierrez MCH (RBC) [Entitic mass] 28.2 pg Normal 26.7-34.0 [facility] Comment on above: Performed By: #### C BC #### [facility] [address] [place] [address] Dr. Kalyn Gutierrez MCHC (RBC) [Mass/Vol] 32.0 g/dL Normal 29.9-35.2 [facility] Comment on above: Performed By: #### C BC #### [facility] [address] [place] [address] Dr. Kalyn Gutierrez MCV (RBC) [Entitic vol] 88.4 fL Normal 81.0-99.0 [facility] Comment on above: Performed By: #### C BC #### [facility] [address] [place] [address] Dr. Kalyn Gutierrez MONO # 0.6 103/ul Normal 0.3-0.8 [facility] Comment on above: Performed By: #### C BC #### [facility] [address] [place] [address] Dr. Kalyn Gutierrez Monocytes/100 WBC (Bld) 8.7 % Normal 1.7-12.0 [facility] Comment on above: Performed By: #### C BC #### [facility] [address] [place] [address] Dr. Kalyn Gutierrez NEUT # 4.8 103/ul Normal 1.4-6.5 [facility] Comment on above: Performed By: #### C BC #### [facility] [address] [place] [address] Dr. Kalyn Gutierrez Neutrophils/100 WBC (Bld) 65.6 % Normal 43.0-75.0 [facility] Comment on above: Performed By: #### C BC #### [facility] [address] [place] [address] Dr. Kalyn Gutierrez Platelet mean volume (Bld) [Entitic vol] 12.3 fL Normal 9.5-13.5 [facility] Comment on above: Performed By: #### C BC #### [facility] [address] [place] [address] Dr. Kalyn Gutierrez PLT 183 103/ul Normal 150-450 [facility] Comment on above: Performed By: #### C BC #### [facility] [address] [place] [address] Dr. Kalyn Gutierrez RBC 4.39 106/ul Normal 4.20-5.40 [facility] Comment on above: Performed By: #### C BC #### [facility] [address] [place] [address] Dr. Kalyn Gutierrez WBC 7.3 103/ul Normal 4.0-11.0 [facility] Comment on above: Performed By: #### C BC #### [facility] [address] [address] [address] Kalyn Gutierrez PREG QUANT HCGon 07-12-2021 HCG QUANT <1 Normal [facility] Comment on above: Performed By: #### P REGQNT #### [facility] [address] [address] [address] Kalyn Gutierrez HCG RANGE SEE BELOW Normal [facility] Comment on above: Result Comment: 5-50 0-1 WEEK 40-300 1-2 WEEKS 100-1,000 2-3 WEEKS 500-6,000 3-4 WEEKS 5,000-200,000 1-2 MONTHS 10,000-100,000 2-3 MONTHS 3,000-50,000 2ND TRIMESTER 1,000-50,000 3RD TRIMESTER Performed By: #### P REGQNT #### [facility] [address] [place] [address] Dr. Kalyn Gutierrez US PELVIS AND TRANSVAGon [...] NOEMI KRISHNA Date: 2021-06-22 09:10 Normal [facility] DIGITAL DIAG MAMM BILAT WITH TOMOon 06-21-2021 DIGITAL DIAG MAMM BILAT WITH SUSANA Patient Name: MICHAEL WELLER STUDY: DIGITAL DIAG MAMM BILAT WITH SUSANA; BREAST ULTRASOUND; 06/21/2021 3:05 pm; 06/21/2021 3:31 pm ACCESSION NUMBER(S): [id number]; [id number] ORDERING CLINICIAN: RAFAELA ARGUELLO INDICATION: Right breast [...] breast ultrasound was performed by a registered auto self service station attendant utilizing elastography. The irregular hypoechoic parallel mass [...] any future breast imaging appointments, please call [phone] ([phone]). Patient letter sent SAAPPR Electronically signed by: MOHAN ROMANO MD [facility] [place]O POSADAS (automated w/o microsc opy)on 06-21-2021 Protein (U) [Mass/Vol] Negative [facility] Work Phone: IO UA (automated w/o microscopy) Negative [facility] Work Phone: IO UA (automated w/o microscopy) Normal (0.2-1.0 mg/dl) [facility] Work Phone: IO UA (automated w/o microscopy) 6.5 1 [facility] Work Phone: IO UA (automated w/o microscopy) 1.025 1 [facility] Work Phone: IO UA (automated w/o microscopy) Clear [facility] Work Phone: IO UA (automated w/o microscopy) Yellow [facility] Work Phone: IO Ultrasound, measurement p ost-void resid urine and/or bl cap; no imagon 06-21-2021 IO Ultrasound, measurement post-void resid urine and/or bl cap; no imag 0 mL [facility] Work Phone: Radiologyon 06-21-2021 MG Breast Diagnostic Please click on the link to view the study images Normal [facility] Work Phone: MG Breast Diagnostic Normal MP-W SPC-[place] [facility] 200 Work Phone: Tobacco Screening.on 022 Fall risk assessment a) No falls within the last year [facility] Work Phone: Tobacco use status CPHS b) No [facility] Work Phone: ULTRASOUND LIMITED BREASTon 06-21-2021 ULTRASOUND LIMITED BREAST Patient Name: MICHAEL WELLER STUDY: DIGITAL DIAG MAMM BILAT WITH SUSANA; BREAST ULTRASOUND; 06/21/2021 3:05 pm; 06/21/2021 3:31 pm ACCESSION NUMBER(S): [id number]; [id number] ORDERING CLINICIAN: RAFAELA ARGUELLO INDICATION: Right breast [...] breast ultrasound was performed by a registered auto self service station attendant utilizing elastography. The irregular hypoechoic parallel mass [...] any future breast imaging appointments, please call [phone] ([phone]). Patient letter sent SAAPPR Electronically signed by: MOHAN ROMANO MD Normal [facility]ound Limited [place]aston 06-21-2021 MG Breast Screening Normal MP-WS [facility] 200 Work Phone: IO UA (automated w/o microsc opy)on 06-04-2021 Protein (U) [Mass/Vol] Negative WA-DZAC-Opggvhc e 200 Work Phone: IO UA (automated w/o microscopy) Negative GX-RSVU-Antqtsh e 200 Work Phone: IO UA (automated w/o microscopy) Normal JC-DCNB-Cojrtdq e 200 Work Phone: IO UA (automated w/o microscopy) 7.0 1 MX-EWAO-Fctthps e 200 Work Phone: IO UA (automated w/o microscopy) 1.020 1 FK-DHJN-Uqkmsvi e 200 Work Phone: IO UA (automated w/o microscopy) Clear RW-GRPQ-Hmsfnlw e 200 Work Phone: IO UA (automated w/o microscopy) Yellow TS-RBNT-Obwsmsw e 200 Work Phone: Tobacco Screening.on Adult depression screening assessment No MP-WSPC-Luiz tlak e 200 Work Phone: Fall risk assessment a) No falls within the last year AK-MMFN-Ahlatzm e 200 Work Phone: Last menstrual period start date 14May2021 ZD-LOLK-Ezdcbln e 200 Work Phone: Tobacco use status CPHS b) No MQ-JJBI-Qjniqei e 200 Work Phone: PAP ACOG PANEL 2: 30 to 65on 03-28-2021 . . Normal [facility] Comment on above: Result Comment: Perf ormed at: WB Performed By: #### [id number] #### [facility] [address] [place] [address] Dr. Kalyn Gutierrez Age Gdln ACOG Testing 30-65 Normal [facility] Comment on above: Performed By: #### [id number] #### [facility] [address] [address] [address] Kalyn Gutierrez DIAGNOSIS: Comment Normal [facility] Comment on above: Result Comment: NEGA TIVE FOR INTRAEPITHELIAL LESION OR MALIGNANCY. Performed at: WB Performed By: #### [id number] #### [facility] [address] [id number] Kalyn Gutierrez HPV Aptima Negative Normal Negative [facility] Comment on above: Result Comment: This nucleic acid amplification test detects fourteen high-risk HPV types (16,18,31,33,35,39,45,51,52,56,58,59,66,68) without differentiation. Performed at: =G Performed By: #### [id number] #### [facility] [address] [place] [address] Dr. Kalyn Gutierrez Methodology: Comment Normal [facility] Comment on above: Result Comment: This liquid based ThinPrep(R) pap test was screened with the use of an image guided system. Performed at: WB Performed By: #### [id number] #### [facility] [address] [place] [address] Dr. Kalyn Gutierrez Note: Comment Normal [facility] Comment on above: Result Comment: The Pap smear is a screening test designed to aid in the detection of premalignant and malignant conditions of the uterine cervix. It is not a diagnostic procedure and should not be used as the sole means of detecting cervical cancer. Both false-positive and false-negative reports do occur. . Performed at: WB Performed By: #### [id number] #### [facility] [address] [place] [address] Dr. Kalyn Gutierrez Performed by: Comment Normal [facility] Comment on above: Result Comment: Tawnya Del Rio, Recycling Director (ASCP) Performed at: WB Performed By: #### [id number] #### [facility] [address] [place] [address] Dr. Kalyn Gutierrez Specimen adequacy: Comment Normal [facility] Comment on above: Result Comment: Sati sfactory for evaluation. Endocervical and/or squamous metaplastic cells (endocervical component) are present. Performed at: WB Performed By: #### [id number] #### [facility] [address] [place] [address] Dr. Kalyn Gutierrez Vital Signs Date Time Vital Sign Value Performing Clinician Facility 11-28-2024 13:41-0400 Body mass index (BMI) [Ratio] 36.53 kg/m2 [facility] Work Phone: [facility] 11-28-2024 13:41-0400 Body weight 99.56 kg [facility] Work Phone: [facility] 11-28-2024 13:41-0400 Diastolic blood pressure 82 mm[Hg] Matt Daya DO Work Phone: [facility] 11-28-2024 13:41-0400 Systolic blood pressure 120 mm[Hg] Matt Daya DO Work Phone: [facility] 11-10-2024 10:59-0400 Body mass index (BMI) [Ratio] 36.28 kg/m2 Matt Daya DO Work Phone: [facility] 11-10-2024 10:59-0400 Body weight 98.88 kg Matt Daya DO Work Phone: [facility] 11-10-2024 10:59-0400 Diastolic blood pressure 70 mm[Hg] Matt Daya DO Work Phone: [facility] 11-10-2024 10:59-0400 Systolic blood pressure 110 mm[Hg] Matt Daya DO Work Phone: [facility] 11-01-2024 10:54-0400 Body height 165.1 cm Alex Cheng WA[employer] PLEATER Work Phone: [facility] 11-01-2024 10:54-0400 Body mass index (BMI) [Ratio] 36.54 kg/m2 Alex Cheng WA[employer] P[employer] Work Phone: [facility] 11-01-2024 10:54-0400 Body temperature 98.4 [degF] Alex Cheng WAIST PLEATER Work Phone: [facility] 11-01-2024 10:54-0400 Body weight 99.61 kg Alex Cheng WAIST PLEATER Work Phone: [facility] 11-01-2024 10:54-0400 Diastolic blood pressure 66 mm[Hg] Alex Cheng WAIST PLEATER Work Phone: [facility] 11-01-2024 10:54-0400 Heart rate 78 /min Alex Cheng WAIST PLEATER Work Phone: [facility] 11-01-2024 10:54-0400 SaO2% (BldA) [Mass fraction] 98 % Alex Cheng WAIST PLEATER Work Phone: [facility] 11-01-2024 10:54-0400 Systolic blood pressure 110 mm[Hg] Alex Cheng WAIST PLEATER Work Phone: [facility] 10-26-2024 16:07-0400 Body mass index (BMI) [Ratio] 36.78 kg/m2 Matt Daya DO Work Phone: [facility] 10-26-2024 16:07-0400 Body weight 100.25 kg Matt Daya DO Work Phone: [facility] 10-26-2024 16:07-0400 Diastolic blood pressure 70 mm[Hg] Matt Daya DO Work Phone: [facility] 10-26-2024 16:07-0400 Systolic blood pressure 108 mm[Hg] Matt Daya DO Work Phone: [facility] 09-06-2024 09:48-0400 Body mass index (BMI) [Ratio] 40.52 kg/m2 Matt Daya DO Work Phone: [facility] 09-06-2024 09:48-0400 Body weight 110.45 kg Matt Daya DO Work Phone: [facility] 09-06-2024 09:48-0400 Diastolic blood pressure 70 mm[Hg] Matt Daya DO Work Phone: [facility] 09-06-2024 09:48-0400 Systolic blood pressure 110 mm[Hg] Matt Daya DO Work Phone: [facility] 08-31-2024 11:42-0400 Body mass index (BMI) [Ratio] 40.17 kg/m2 Matt Daya DO Work Phone: [facility] 08-31-2024 11:42-0400 Body weight 109.5 kg Matt Daya DO Work Phone: [facility] 08-31-2024 11:42-0400 Diastolic blood pressure 70 mm[Hg] Matt Daya DO Work Phone: [facility] 08-31-2024 11:42-0400 Systolic blood pressure 116 mm[Hg] Matt Daya DO Work Phone: [facility] 08-17-2024 11:20-0400 Body mass index (BMI) [Ratio] 40 kg/m2 Matt Daya DO Work Phone: [facility] 08-17-2024 11:20-0400 Body weight 109.05 kg Matt Daya DO Work Phone: [facility] 08-17-2024 11:20-0400 Diastolic blood pressure 76 mm[Hg] Matt Daya DO Work Phone: [facility] 08-17-2024 11:20-0400 Systolic blood pressure 116 mm[Hg] Matt Daya DO Work Phone: [facility] 08-09-2024 12:09-0400 Body weight 104.24 kg Noelle Johnston RN Work Phone: [facility] 08-02-2024 09:22-0400 Body mass index (BMI) [Ratio] 39.44 kg/m2 Mtat Daya DO Work Phone: [facility] 08-02-2024 09:22-0400 Body weight 107.5 kg Matt Daya DO Work Phone: [facility] 08-02-2024 09:22-0400 Diastolic blood pressure 82 mm[Hg] Matt Daya DO Work Phone: [facility] 08-02-2024 09:22-0400 Systolic blood pressure 120 mm[Hg] Matt Daya DO Work Phone: [facility] 07-12-2024 11:14-0400 Body mass index (BMI) [Ratio] 39.61 kg/m2 Matt Daya DO Work Phone: [facility] 07-12-2024 11:14-0400 Body weight 107.96 kg Matt Daya DO Work Phone: [facility] 07-12-2024 11:14-0400 Diastolic blood pressure 74 mm[Hg] Matt Daya DO Work Phone: [facility] 07-12-2024 11:14-0400 Systolic blood pressure 122 mm[Hg] Matt Daya DO Work Phone: [facility] 06-20-2024 10:21-0400 Body mass index (BMI) [Ratio] 39.11 kg/m2 Matt Daya DO Work Phone: [facility] 06-20-2024 10:21-0400 Body weight 106.59 kg Matt Daya DO Work Phone: [facility] 06-20-2024 10:21-0400 Diastolic blood pressure 72 mm[Hg] Matt Daya DO Work Phone: [facility] 06-20-2024 10:21-0400 Systolic blood pressure 120 mm[Hg] Matt Daya DO Work Phone: [facility] 04-14-2024 15:19-0500 Body mass index (BMI) [Ratio] 35.91 kg/m2 Merary MCBRIDE Work Phone: [facility] 04-14-2024 15:19-0500 Body weight 97.89 kg Merary MCBRIDE Work Phone: [facility] 04-14-2024 15:19-0500 Diastolic blood pressure 70 mm[Hg] Merary MCBRIDE Work Phone: [facility] 04-14-2024 15:19-0500 Systolic blood pressure 110 mm[Hg] Merary Wilcox PA Work Phone: [facility] 03-16-2024 16:18-0500 Body mass index (BMI) [Ratio] 34.58 kg/m2 Matt Daya DO Work Phone: [facility] 03-16-2024 16:18-0500 Body weight 94.26 kg Matt Daya DO Work Phone: [facility] 03-16-2024 16:18-0500 Diastolic blood pressure 72 mm[Hg] Matt Daya DO Work Phone: [facility] 03-16-2024 16:18-0500 Systolic blood pressure 116 mm[Hg] Matt Daya DO Work Phone: [facility] 01-05-2024 11:51-0400 Body mass index (BMI) [Ratio] 30.45 kg/m2 Maryann Mic-Baciliowipedro luis Work Phone: 7(409)466-669453 [place] [address] 01-05-2024 11:51-0400 Body temperature 98.2 [degF] Maryann Mic-Lobocz Work Phone: 3(280)876-337553 [place] [address] 01-05-2024 11:51-0400 Body weight 83.01 kg Maryann Mic-Sachin Work Phone: 9(181)919-320353 [place] [address] 01-05-2024 11:51-0400 Diastolic blood pressure 76 mm[Hg] Maryann Mic-Fletchersbelindawicz Work Phone: 5(881)402-525253 [place] [address] 01-05-2024 11:51-0400 Heart rate 74 /min Maryann Mic-Lobocz Work Phone: 9(206)311-429853 [place] [address] 01-05-2024 11:51-0400 Respiratory rate 18 /min Maryann Mic-Sachin Work Phone: 7(019)661-173053 [place] [address] 01-05-2024 11:51-0400 SaO2% (BldA) [Mass fraction] 98 % Maryann Mic-Lobocz Work Phone: 4(915)638-886153 [place] [address] 01-05-2024 11:51-0400 Systolic blood pressure 119 mm[Hg] Maryann Mic-Lobocz Work Phone: 7(987)597-123953 [place] [address] 09-05-2023 13:24-0400 Body height 165.1 cm [facility] 09-05-2023 13:24-0400 Body mass index (BMI) [Ratio] 29.2 kg/m2 [facility] 09-05-2023 13:24-0400 Body temperature 97.9 [degF] [facility] 09-05-2023 13:24-0400 Body weight 79.83 kg [facility] 09-05-2023 13:24-0400 Diastolic blood pressure 85 mm[Hg] [facility] 09-05-2023 13:24-0400 Heart rate 106 /min [facility] 09-05-2023 13:24-0400 Respiratory rate 18 /min [facility] 09-05-2023 13:24-0400 SaO2% (BldA) [Mass fraction] 96 % [facility] 09-05-2023 13:24-0400 Systolic blood pressure 120 mm[Hg] [facility] 07-22-2023 14:37-0400 Body height 165.1 cm Jhonny Issa MD Work Phone: [facility] 07-22-2023 14:37-0400 Body mass index (BMI) [Ratio] 30.72 kg/m2 Jhonny Isas MD Work Phone: [facility] 07-22-2023 14:37-0400 Body weight 83.73 kg Jhonny Issa MD Work Phone: [facility] 07-22-2023 14:37-0400 Diastolic blood pressure 78 mm[Hg] Jhonny Issa MD Work Phone: [facility] 07-22-2023 14:37-0400 Heart rate 111 /min Jhonny Issa MD Work Phone: [facility] 07-22-2023 14:37-0400 Systolic blood pressure 118 mm[Hg] Jhonny Issa MD Work Phone: [facility] 04-27-2023 15:40-0500 Body height 165.1 cm Jhonny Issa MD Work Phone: [facility] 04-27-2023 15:40-0500 Body mass index (BMI) [Ratio] 34.15 kg/m2 Jhonny Issa MD Work Phone: [facility] 04-27-2023 15:40-0500 Body weight 93.08 kg Jhonny Issa MD Work Phone: [facility] 04-27-2023 15:40-0500 Diastolic blood pressure 60 mm[Hg] Jhonny Issa MD Work Phone: [facility] 04-27-2023 15:40-0500 Heart rate 123 /min Jhonny Issa MD Work Phone: [facility] 04-27-2023 15:40-0500 Respiratory rate 14 /min Jhonny Issa MD Work Phone: [facility] 04-27-2023 15:40-0500 Systolic blood pressure 104 mm[Hg] Jhonny Issa MD Work Phone: [facility] 02-19-2023 10:39-0500 Body height 165.1 cm Jhonny Issa MD Work Phone: [facility] 02-19-2023 10:39-0500 Body mass index (BMI) [Ratio] 36.08 kg/m2 Jhonny Issa MD Work Phone: [facility] 02-19-2023 10:39-0500 Body weight 98.34 kg Jhonny Issa MD Work Phone: [facility] 02-19-2023 10:39-0500 Diastolic blood pressure 83 mm[Hg] Jhonny Issa MD Work Phone: [facility] 02-19-2023 10:39-0500 Heart rate 94 /min Jhonny Issa MD Work Phone: [facility] 02-19-2023 10:39-0500 Systolic blood pressure 117 mm[Hg] Jhonny Issa MD Work Phone: [facility] 07-02-2022 13:20-0400 Body height 165.1 cm [employer] Sherman Other [employer] Other 07-02-2022 13:20-0400 Body mass index (BMI) [Ratio] 33.28 kg/m2 Bolivar Sherman Other [employer] Other 07-02-2022 13:20-0400 Body weight 90.72 kg Bolivar Sherman Other [employer] Other 07-02-2022 13:20-0400 Diastolic blood pressure 78 mm[Hg] Bolivar Sherman Other [employer] Other 07-02-2022 13:20-0400 Respiratory rate 18 /min Bolivar Sherman Other [employer] Other 07-02-2022 13:20-0400 SaO2% (BldA) [Mass fraction] 99 % Bolivar Sherman Other [employer] Other 07-02-2022 13:20-0400 Systolic blood pressure 117 mm[Hg] Bolivar Sherman Other [employer] Other 10-14-2021 15:07-0400 Diastolic blood pressure 98 mm[Hg] Rafaela Arguello Work Phone: [facility] Work Phone: 10-14-2021 15:07-0400 Heart rate 103 /min Rafaela Arguello Work Phone: [facility] Work Phone: 10-14-2021 15:07-0400 Systolic blood pressure 132 mm[Hg] Rafaela Arguello Work Phone: [facility] Work Phone: 06-21-2021 08:13-0400 Body height 165.1 cm Rafaela Silva Arguello Work Phone: [facility] Work Phone: 06-21-2021 08:13-0400 Body mass index (BMI) [Ratio] 33.28 kg/m2 Rafaela Arguello Work Phone: [facility] Work Phone: 06-21-2021 08:13-0400 Body surface area Derived from formula 1.98 m2 Rafaela Arguello Work Phone: [facility] Work Phone: 06-21-2021 08:13-0400 Body temperature 97.2 [degF] Rafaela Arguello Work Phone: [facility] Work Phone: 06-21-2021 08:13-0400 Body weight 90.72 kg Rafaela Arguello Work Phone: [facility] Work Phone: 06-21-2021 08:13-0400 Diastolic blood pressure 82 mm[Hg] Rafaela Arguello Work Phone: [facility] Work Phone: 06-21-2021 08:13-0400 Heart rate 89 /min Rafaela Arguello Work Phone: [facility] Work Phone: 06-21-2021 08:13-0400 Systolic blood pressure 115 mm[Hg] Rafaela Arguello Work Phone: [facility] Work Phone: 06-04-2021 13:05-0400 Body height 167.64 cm Rafaela Arguello Work Phone: [facility] 200 Work Phone: 06-04-2021 13:05-0400 Body mass index (BMI) [Ratio] 32.77 kg/m2 Rafaela Arguello Work Phone: [facility] 200 Work Phone: 06-04-2021 13:05-0400 Body surface area Derived from formula 2.01 m2 Rafaela Arguello Work Phone: SB-CZZN-Sizbdzxu 200 Work Phone: 06-04-2021 13:05-0400 Body temperature 98.2 [degF] Rafaela Arguello Work Phone: [facility]-GZIC-Pvcjogdb 200 Work Phone: 06-04-2021 13:05-0400 Body weight 92.08 kg Rafaela Arguello Work Phone: AA-XPPV-Tzpyqflp 200 Work Phone: 06-04-2021 13:05-0400 Diastolic blood pressure 76 mm[Hg] Rafaela Arguello Work Phone: FK-KGUO-Ynwpxipg 200 Work Phone: 06-04-2021 13:05-0400 Heart rate 80 /min Rafaela Arguello Work Phone: WX-LNCL-Guiesevb 200 Work Phone: 06-04-2021 13:05-0400 Respiratory rate 16 /min Rafaela Arguello Work Phone: EO-MVLY-Wnioixnh 200 Work Phone: 06-04-2021 13:05-0400 Systolic blood pressure 122 mm[Hg] Rafaela Arguello Work Phone: KB-TFUV-Ougdffga 200 Work Phone: 12-07-2019 11:03-0400 BMI (Body Mass Index) 31.95 kg/m2 Rafaela Arguello UR-TIUV-Xpxujuvh 200 Work Phone: 12-07-2019 11:03-0400 Body Temperature 98.3 [degF] Rafaela Arguello PV-EZJO-Amwrfnt e 200 Work Phone: Comment on above: Method: Temporal 12-07-2019 11:03-0400 Body weight 87.77 kg Rafaela Arguello NZ-EWYW-Bywzpuvz 200 Work Phone: 12-07-2019 11:03-0400 BP Diastolic 74 mm[Hg] Rafaela Arguello ZV-GTLM-Qognzity 200 Work Phone: 12-07-2019 11:03-0400 BP Systolic 118 mm[Hg] Rafaela Arguello AL-FFTU-Xvuatqrc 200 Work Phone: 12-07-2019 11:03-0400 BSA (Body Surface Area) 1.96 m2 Rafaela Arguello TN-LWSD-Xhvevypd 200 Work Phone: 12-07-2019 11:03-0400 Height 165.74 cm Rafaela Arguello VH-AGXI-Gqpjsdrc 200 Work Phone: 12-07-2019 11:03-0400 Pulse (Heart Rate) 84 /min Rafaela Arguello YO-XIHX-Fopng mayur 200 Work Phone: 12-07-2019 11:03-0400 Respiratory Rate 16 /min Rafaela Arguello JV-GCPN-Smxhyes e 200 Work Phone: 05-16-2019 18:12-0400 BMI (Body Mass Index) 33.45 kg/m2 Rafaela Arguello MP-[facility] [facility] [facility] Work Phone: 05-16-2019 18:12-0400 Body Temperature 98.3 [degF] Rafaela Arguello MP-[facility] [address] [facility] Work Phone: 05-16-2019 18:12-0400 Body weight 91.17 kg Rafaela Arguello AD-LAVO-Mcgg 253 [facility] Work Phone: 05-16-2019 [...] Date Encounter Type Care Provider Facility Start: 11-28-2024 End: 11-28-2024 Bamboo flowsheet Matt Daya DO Work Phone: [facility] Start: 11-28-2024 End: 11-28-2024 Bamboo flowsheet Matt Daya DO Work Phone: [facility] Start: 11-28-2024 End: 11-28-2024 Patient encounter procedure Matt Daya DO Work Phone: [facility] Start: 11-28-2024 End: 11-28-2024 Periodic preventive med est patient 18-39 yrs Matt Daya DO Work Phone: [facility] Comment on above: Well woman exam with routine gynecological exam Start: 11-10-2024 End: 11-10-2024 Office outpatient visit 15 minutes Matt Daya DO Work Phone: [facility] Comment on above: Encounter for insert ion of intrauterine contraceptive device (IUD); Encounter for insertion of Mirena IUD; Encounter for initial prescription of vaginal ring hormonal contraceptive Start: 11-10-2024 End: 11-10-2024 ambulatory MATT DAYA Not Available Start: 11-01-2024 End: 11-01-2024 Bamboo flowsheet Alex Cheng WAIST PLEATER Work Phone: [facility] Start: 11-01-2024 End: 11-01-2024 Bamboo flowsheet Alex Cheng WAIST PLEATER Work Phone: [facility] Start: 11-01-2024 End: 11-01-2024 Office outpatient new 45 minutes Alex Cheng WAIST PLEATER Work Phone: [facility] Comment on above: Encounter for medica l examination to establish care (Primary Dx); History of heart murmur in childhood; Generalized anxiety disorder ; Attention deficit hyperactivity disorder (ADHD), predominantly inattentive type ; Screening for cholesterol level; Screening for heart disease; Renal papillary necrosis Start: 11-01-2024 End: 11-01-2024 Patient encounter status Alex Cheng WAIST PLEATER Work Phone: [facility] Start: 11-01-2024 End: 11-01-2024 ambulatory ALEX CHENG Not Available Start: 10-26-2024 End: 10-26-2024 Periodic preventive med est patient 18-39 yrs Matt Daya DO Work Phone: [facility] Comment on above: 6 weeks f ollow-up ([facility]) Start: 10-26-2024 End: 10-26-2024 ambulatory MATT DAYA Not Available Start: 10-26-2024 End: 10-26-2024 Bamboo flowsheet Matt Daya DO Work Phone: [facility] Start: 10-26-2024 End: 10-26-2024 Bamboo flowsheet Matt Daya DO Work Phone: [facility] Start: 10-25-2024 End: 2024 Clinisync Result Encounter Generic External Data Provider [facility] External Department Unsolicited Start: 10-25-2024 End: 2024 Clinisync Result Encounter Generic External Data Provider [facility] External Department Unsolicited Start: 10-25-2024 End: 10-25-2024 Patient encounter procedure Keyur Narayanan 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 Work Phone: [facility] [place] Comment on above: Neoplasm of skin (Pr imary Dx); Personal history of malignant melanoma of skin; Multiple benign nevi of upper extremity, lower extremity, and trunk; Lentigines; Chirinos angioma; Seborrheic keratoses Start: 10-25-2024 End: 10-25-2024 ambulatory KEYUR NARAYANAN Facility:[facility] Start: 09-15-2024 End: 09-15-2024 Clinisync Result Encounter Matt Daya DO Work Phone: [facility] External Department Unsolicited Start: 09-15-2024 End: 09-15-2024 Clinisync Result Encounter Matt Daya DO Work Phone: [facility] External Department Unsolicited Start: 09-14-2024 End: 09-14-2024 Clinisync Result Encounter Matt Daya DO Work Phone: [facility] External Department Unsolicited Start: 09-14-2024 End: 09-14-2024 Clinisync Result Encounter Matt Daya DO Work Phone: [facility] External Department Unsolicited Start: 09-12-2024 End: 09-12-2024 Orders Only Shira CORONADO [facility] Comment on above: Insulin controlled g estational diabetes mellitus (GDM) in third trimester (Primary Dx) Start: 09-08-2024 End: 09-08-2024 Clinisync Result Encounter Matt Daya DO Work Phone: [facility] External Department Unsolicited Start: 09-08-2024 End: 09-08-2024 Clinisync Result Encounter Matt Daya DO Work Phone: [facility] External Department Unsolicited Start: 09-06-2024 End: 09-06-2024 Bamboo flowsheet Matt Daya DO Work Phone: [facility] Start: 09-06-2024 End: 09-06-2024 Bamboo flowsheet Matt Daya DO Work Phone: [facility] Start: 09-06-2024 End: 09-06-2024 ambulatory MATT DAYA Not Available Start: 09-06-2024 End: 09-06-2024 flow sheet Matt Daya DO Work Phone: [facility] Comment on above: Third trimester preg isabella ([facility]); 36 weeks gestation of ([facility]); Excessive growth affecting management of , antepartum, single or unspecified fetus ([facility]); Insulin controlled gestational diabetes mellitus (GDM) in third trimester ([facility]); Antepartum multigravida of advanced maternal age ([facility]) Start: 09-05-2024 End: 09-05-2024 Clinisync Result Encounter Matt Daya DO Work Phone: [facility] External Department Unsolicited Start: 09-05-2024 End: 09-05-2024 Clinisync Result Encounter Matt Daya DO Work Phone: [facility] External Department Unsolicited Start: 09-03-2024 End: 09-03-2024 Clinisync Result Encounter Matt Daya DO Work Phone: [facility] External Department Unsolicited Start: 09-03-2024 End: 09-03-2024 Clinisync Result Encounter Matt Daya DO Work Phone: [facility] External Department Unsolicited Start: 09-02-2024 End: 09-02-2024 Telephone encounter Shira CORONADO [facility] Start: 08-31-2024 End: 08-31-2024 Bamboo flowsheet Matt Daya DO Work Phone: [facility] Start: 08-31-2024 End: 08-31-2024 Bamboo flowsheet Matt Daya DO Work Phone: [facility] Start: 08-31-2024 End: 08-31-2024 ambulatory MATT DAYA Not Available Start: 08-31-2024 End: 08-31-2024 flow sheet Matt Daya DO Work Phone: [facility] Comment on above: 35 weeks gestation o f ([facility]); Third trimester ([facility]); Excessive growth affecting management of , antepartum, single or unspecified fetus ([facility]); Multigravida of advanced maternal age in third trimester ([facility]); Insulin controlled gestational diabetes mellitus (GDM) in third trimester ([facility]) Start: 08-30-2024 End: 08-30-2024 Orders Only Lucretia Villafana PA-C Work Phone: [facility] Comment on above: Insulin controlled g estational diabetes mellitus (GDM) in third trimester Start: 08-25-2024 End: 08-26-2024 Clinisync Result Encounter Matt Daya DO Work Phone: [facility] External Department Unsolicited Start: 08-25-2024 End: 08-26-2024 Clinisync Result Encounter Matt Daya DO Work [...] encounter Charlene Nguyen CMA [facility] Start: 08-17-2024 End: 08-17-2024 ambulatory MATT DAYA [...] Villafana PA-C Work Phone: [facility] Comment on above: Gestational diabetes requiring insulin (Primary Dx) Start: 08-15-2024 End: 08-15-2024 ambulatory LUCRETIA VILLAFANA [facility] Start: 08-14-2024 End: 08-14-2024 Clinisync Result Encounter [...] Johnston RN Work Phone: [facility] Comment on above: Insulin controlled g estational diabetes mellitus (GDM) in third trimester (Primary Dx) Start: 08-09-2024 End: 08-09-2024 [facility] Comment on above: Gestational diabetes mellitus (GDM) in third trimester, gestational diabetes method of control unspecified Start: 08-06-2024 End: 08-06-2024 Clinisync Result Encounter Matt Daya DO Work Phone: [facility] External Department Unsolicited Start: 08-06-2024 End: 08-06-2024 Clinisync Result Encounter Matt Daya DO Work Phone: [facility] External Department Unsolicited Start: 08-03-2024 End: 08-04-2024 Chart abstracting Scanning Provider External [facility] Start: 08-02-2024 End: 08-02-2024 Bamboo flowsheet Matt [...] Phone: [facility] Comment on above: Diabetes mellitus sc reening; 25 weeks gestation of ; Second trimester ; Antepartum multigravida of advanced maternal age Start: 05-23-2024 End: 05-23-2024 ambulatory MATT DAYA Not Available Start: 05-03-2024 End: 05-06-2024 Clinisync Result Encounter Merary MCBRIDE Work Phone: [facility] External Department Unsolicited Start: 05-03-2024 End: 05-06-2024 Clinisync Result Encounter Merary MCBRIDE Work Phone: [facility] External Department Unsolicited Start: 04-14-2024 End: 04-14-2024 ambulatory MERARY WILCOX Not Available Start: 04-14-2024 End: 04-14-2024 Patient encounter procedure Merary MCBRIDE Work Phone: [facility] Start: 04-14-2024 End: 04-14-2024 Periodic preventive [...] 04-14-2024 Bamboo flowsheet Merary MCBRIDE Work Phone: [facility] Start: 03-16-2024 End: 03-16-2024 flow sheet Matt Daya DO Work Phone: [facility] Comment on above: First trimester preg isabella; 11 weeks gestation of ; Antepartum multigravida of advanced maternal age Start: 03-16-2024 End: 03-16-2024 ambulatory MATT DAYA Not Available Start: 03-16-2024 End: 03-16-2024 Bamboo flowsheet Matt Daya DO Work Phone: [facility] Start: 03-16-2024 End: 03-16-2024 Bamboo flowsheet Matt Daya DO Work Phone: [facility] Start: 03-08-2024 End: 03-08-2024 Clinisync Result Encounter Matt Daya DO Work Phone: [facility] External Department Unsolicited Start: 03-08-2024 End: 03-08-2024 Clinisync Result Encounter Matt Daya DO Work Phone: [facility] External Department Unsolicited Start: 03-08-2024 End: 03-08-2024 ambulatory Matt Daya Facility:[facility] Start: 03-08-2024 End: 03-08-2024 Departed Referred Matt Daya DO Work Phone: [facility] Start: 02-16-2024 End: 02-16-2024 Office outpatient visit [facility] Day[facility] Nurse [facility] Comment on above: GA: 7w3d [...] minutes Maryann Davison Work Phone: [facility] Comment on above: Acute lower UTI (Adrianna eulogio Dx); Urine frequency Start: 10-20-2023 End: 10-26-2023 Clinisync Result Encounter Matt Daya DO Work Phone: [facility] External Department Unsolicited Start: 10-20-2023 End: 10-26-2023 Clinisync Result Encounter Matt Daya DO Work Phone: [facility] External Department Unsolicited Start: 09-05-2023 End: 09-05-2023 Departed Referred CULINARY ASSISTANT Swetha Andersen Work Phone: [facility] 250 Start: 09-05-2023 End: 09-05-2023 ambulatory PHYSICIAN NO [facility] Work Phone: Start: 09-05-2023 End: 09-05-2023 Patient encounter procedure [facility] Work Phone: Start: 09-01-2023 End: 09-01-2023 Patient encounter procedure Roula Hodge 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 Work Phone: [facility] [place] Comment on above: Dermatofibroma (Prim ottoniel Dx); Lentigines; Multiple benign nevi; Chirinos angioma; Hx of malignant melanoma Start: 07-22-2023 End: 07-22-2023 ambulatory [facility] Ambulatory Start: 07-22-2023 End: 07-22-2023 Office outpatient visit 25 minutes Jhonny Issa MD Work Phone: [facility] Comment on above: Encephalopathy (Prim ottoniel Dx); Attention deficit hyperactivity disorder (ADHD), predominantly inattentive type; Insomnia due to medical condition; Anxiety Start: 04-27-2023 End: 04-27-2023 ambulatory [facility] Start: 04-27-2023 End: 04-27-2023 Office outpatient visit 25 minutes Jhonny Issa MD Work Phone: [facility] Comment on above: Encephalopathy (Prim ottoniel Dx); Attention deficit hyperactivity disorder (ADHD), predominantly inattentive type; Insomnia due to medical condition; Anxiety Start: 03-04-2023 End: 03-04-2023 ambulatory [facility] Start: 03-04-2023 End: 03-04-2023 Office outpatient visit 15 minutes Karolina Man DO Work Phone: [facility] Comment on above: Anxiety Start: 02-19-2023 End: 02-19-2023 ambulatory [facility] Amb[facility] Start: 02-19-2023 End: 02-19-2023 Office outpatient new 60 minutes Jhonny Issa MD Work Phone: [facility] Comment on above: Encephalopathy (Prim ottoniel Dx); Anxiety; Attention deficit hyperactivity disorder (ADHD), predominantly inattentive type Start: 12-19-2022 End: 12-19-2022 Subsequent hospital visit by physician Martha Breast Ultrasound 1 [facility] Comment on above: Lump in female breas t Start: 12-19-2022 End: 12-19-2022 ambulatory KAROLINA [facility] Start: 12-19-2022 End: 12-19-2022 ambulatory KAROLINA [facility] Start: 12-19-2022 End: 12-19-2022 Subsequent hospital visit by physician Martha Harris 1 [facility] Comment on above: Abnormal mammogram Start: 12-03-2022 End: 12-03-2022 ambulatory KAROLINA [facility]ipriano [facility] Ambulatory Start: 10-16-[address] Work Phone: [facility] Work Phone: Start: 07-02-2022 Office outpatient vi sit 25 minutes Bolivar Sherman [facility] Urgent [facility] Start: 07-02-2022 End: 07-02-2022 ambulatory DO Danielle Infante Work Phone: [facility] Work Phone: Start: 07-02-2022 End: 07-02-2022 Patient encounter procedure DO Danielle Infante Work Phone: [facility] 250 Start: 04-14-20[address] Rx Renew[address] Work Phone: TC-FYHZ-Sszmmahj 200 Work Phone: Start: 03-17-2022 Rx Renewal Rafaela Sanabria rd Work Phone: WW-DHRP-Pqkyhizy 200 Work Phone: Start: 02-10-2022 ambulatory Ms. Rafaela Arguello Facility:[id number] Start: 02-10-2022 Office outpatient vi sit 25 minutes Rafaela Arguello Work Phone: HX-VTNJ-Ghqjnrma 200 Work Phone: Start: 10-30-2021 Rx Renewal Rafaela Sanabria rd Work Phone: YD-MXPJ-Vkqdgdrw 200 Work Phone: Start: 10-17-2021 End: 10-17-2021 Patient encounter procedure Roula Hodge APRN.DISTRIBUTION CENTER MANAGER Work Phone: [facility] [place] Comment on above: Lentigines (Primary Dx); Multiple benign nevi; Chirinos angioma; Exposure to tanning bed, sequela; Hx of malignant melanoma; Dermatofibroma Start: 10-14-2021 Office consultation new/estab patient 60 min Rafaela Arguello Work Phone: [facility] Work Phone: Start: 10-14-2021 Patient encounter procedure Rafaela Arguello Work Phone: [facility] Work Phone: Start: 10-08-2021 Office outpatient vi sit 25 minutes Rafaela Arguello Work Phone: [id number]-NDSB-Ccjkprdp 200 Work Phone: Start: 10-08-2021 ambulatory Ms. Rafaela Norton edmar Arguello Facility:[id number] Start: 10-07-2021 End: 10-07-2021 Departed Referred DO Danielle Infante Work Phone: [facility] Start: 10-02-2021 Rx Renewal Rafaela Sanabria rd Work Phone: QW-ITJB-Bhlshpav 200 Work Phone: Start: 09-06-2021 Patient encounter procedure Rafaela Arguello Work Phone: [facility] Work Phone: Start: 09-06-2021 ambulatory Ms. Rafaela Newmanbrandee Arguello Facility:[id number] Start: 07-12-2021 End: 07-12-[address] ENCARNACION LISTED REQUEST Facility:H1 Start: 07-11-2021 Encounter for preprocedural cardiovascular examination DR MATT STAPLETON [facility] Start: 07-10-2021 End: 07-11-[address] MATT STAPLETON Facility:H1 Start: 07-10-2021 End: 07-11-2021 Encounter for preprocedural cardiovascular examination DR MATT STAPLETON Facility:H1 Start: 07-09-[address] MATT STAPLETON Facility :H1 Start: 07-01-[address] Work Phone: [id number]-Oaibynqj 200 Work Phone: Start: 06-28-2021 Chart Update Rafaela E Elly avalos Work Phone: RN-SDHL-Mhngrwsl 200 Work Phone: Start: 06-27-2021 AUDIT Rafaela Silva Elly avalos Work Phone: JB-SRGQ-Llmdhnwo 200 Work Phone: Start: 06-21-2021 End: 06-22-[address] MATT STAPLETON Facility:H1 Start: 06-04-2021 Office outpatient vi sit 25 minutes Rafaela Arguello Work Phone: MZ-FLRB-Lcgxnafk 200 Work Phone: Start: 06-04-2021 Patient encounter procedure Rafaela E Hema Work Phone: VY-AXIL-Ypnbbgne 200 Work Phone: Start: 06-04-2021 ambulatory Ms. Rafaela hyatt Hema Facility:[id number] Start: 03-25-2021 End: 03-25-[address] MATT STAPLETON Facility:H1 Start: 12-07-2019 Patient encounter procedure Rafaela Arguello IK-GRAK-Dxwcimwx 200 Work Phone: Start: 05-16-2019 Patient encounter procedure Rafaela Arguello MP-[facility] [facility] Work Phone: Start: 09-27-2018 Patient encounter procedure Rafaela Arguello CB-HUMQ-Sezg [facility] Work Phone: Start: 09-14-2018 Patient encounter procedure Rafaela Arguello YA-DLLW-Ffcd [facility] Work Phone: Start: 07-17-2017 Patient encounter procedure Rafaela Arguello JV-CVHK-Bdty [facility] Work Phone: Procedures Date Procedure Procedure Detail Performing Clinician Start: 11-10-2024 Urine test visual color cmprsn meths Matt Stapleton DO Work Phone: Start: 10-25-2024 SKIN / NAIL BIOPSY Morrahul isaiah Nadira 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 Work Phone: Start: 10-25-2024 TISS PATH BX REPORT Gen aida External Data Provider Start: 09-15-2024 ALL CBC WITH AUTO DIFF Matt Daya DO Work Phone: Start: 09-14-2024 HMHP CBC WITH PLATEL ET NO DIFFERENTIAL Matt Daya DO Work Phone: Start: 09-08-2024 US OB BPP W NON-STRESS Matt Daya DO Work Phone: Start: 09-06-2024 Urnls dip stick/tabl et rgnt non-auto w/o micrscp Matt Daya DO Work Phone: Start: 09-05-2024 US OB GROWTH Matt Fazi o DO Work Phone: Start: 09-03-2024 US OB BPP W NON-STRESS Matt Daya DO Work Phone: Start: 08-31-2024 Urnls dip stick/tabl et rgnt non-auto w/o micrscp Matt Daya DO Work Phone: Start: 08-25-2024 US OB BPP W NON-STRESS Matt Daya DO Work Phone: Start: 08-19-2024 US OB BPP W NON-STRESS Matt Daya DO Work Phone: Start: 08-15-2024 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 Matt Daya DO Work Phone: [...] Rafaela Arguello Start: 12-07-2019 Lipid panel Rafaela Rahul chavira Start: 12-07-2019 TSH WITH REFLEX TO F REE T4 IF ABNORMAL Rafaela Arguello Adenoidectomy withou t tonsillectomy Rafaela Arguello History of [place] Surgery Rafaela Arguello Hyperlipidemia screening Tho francesca [place] Other Procedure on back Rafaela Silva Ingrid croft Work Phone: Removal of suture Bolivar For anabell Other Tonsillectomy Rafaela Arguello Total replacement of hip Keaton Arguello Plan of Treatment Date Care Activity Detail Author Start: 10-26-2037 Zoster Vaccines (1 o f 2) Zoster Vaccines (1 of 2) [facility] Start: 10-19-2028 Screening for malignant neoplasm of cervix [facility] Start: 10-18-2027 Screening for malignant neoplasm of cervix [facility] Start: 10-19-2026 Screening for malignant neoplasm of cervix [facility] Start: 12-11-2025 End: 12-11-2025 Patient encounter procedure 12/11/2025 4:00 PM EDT Procedure Visit [facility] MED[facility] [address] [place] [address] Matt Stapleton DO [address] [place], [place] [id number] [facility] Start: 10-30-2025 End: 10-30-2025 Patient encounter procedure 10/30/2025 11:15 AM EDT Office Visit [facility] [place] [address] [place] [id number] Keyur Narayanan, 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 [address] [facility] [address] 1 year (around 10/25/2025) for full body skin check. [facility] [place] Comment on above: 1 year (around 2025) for full body skin check. Start: 10-17-2025 Screening for malignant neoplasm of cervix [facility] Start: 04-23-2025 Lipid panel Lipid Panel [facility] Start: 01-03-2025 End: 01-03-2025 Patient encounter procedure 01/03/2025 2:20 PM EDT Office Visit [facility] [place] [facility] [address] [place] [address] Alex Cheng NP [address] [place] [address] [facility] [place] [facility] Start: 11-28-2024 End: 11-28-2024 Patient encounter procedure [facility] Comment on above: Arrived Start: 11-10-2024 End: 11-10-2024 Patient encounter procedure 11/10/2024 10:30 AM EDT Procedure Visit [facility] MEDRANO [address] [place] [phone] Matt Stapleton DO [address] [place] [address] [facility] Start: 11-07-2024 Influenza vaccination [facility] Start: 11-01-2024 End: 11-01-2024 Patient encounter procedure [facility] [place] [facility] Comment on above: Arrived Start: 10-26-2024 End: 10-26-2024 Patient encounter procedure [facility] Comment on above: Arrived Start: 09-06-2024 End: 09-06-2025 CULTURE, GROUP B STREP WITH SUSCEPTIBLITY CULTURE, GROUP B STREP WITH SUSCEPTIBLITY Lab Routine Third trimester ([facility]) Expected: 09/06/2024, Expires: 09/06/2025 [facility] Work Phone: Comment on above: Expected: 09/06/2024 , Expires: 09/06/2025 Start: 09-06-2024 End: 09-06-2024 Patient encounter procedure 09/06/2024 9:30 AM EDT Routine [facility] [address] [place] [phone] Matt Stapleton, DO [address] [place], [place] [id number] [facility] Start: 08-31-2024 End: 12-31-2024 US for US OB follow up transabdominal approach Imaging Routine Excessive growth affecting management of , antepartum, single or unspecified fetus ([facility]) Expected: 08/31/2024, Expires: 12/31/2024 [facility] Work Phone: Comment on above: Expected: 08/31/2024 , Expires: 12/31/2024 Start: 08-31-2024 End: 08-31-2024 Patient encounter procedure 08/31/2024 11:20 AM EDT Routine [facility] [address] [place] [phone] Matt Stapleton, DO [address] [place] [address] [facility] Start: 08-17-2024 End: 08-17-2024 Patient encounter procedure 08/17/2024 11:00 AM EDT Routine [facility] [address] [place] [phone] Matt Stapleton, DO [address] [place] [address] [facility] Start: 08-15-2024 End: 08-15-2024 Telemedicine consultation with patient 08/15/2024 1:30 PM EDT Telemedicine [facility] [address] [place] [address] Lucretia Villafana PA-C [address] [address] [facility] Start: 08-09-2024 End: 08-09-2024 Professional / ancillary services management 08/09/2024 3:00 PM EDT Ancillary Procedure [facility] [address] [place] [address] [place] [phone] [facility] Start: 08-09-2024 End: 08-09-2024 ambulatory 08/09/2024 10:30 AM EDT Support Visit [facility] [address] [facility] [id number] Noelle Johnston RN [address] [facility], [address] [place] [id number] Ignacia Carvalho, LD [address] [place] [address] [facility] Start: 08-02-2024 End: 02-02-2025 US biophysical profile [...] third trimester Expected: 07/12/2024 (Approximate), Expires: 11/12/2024 [facility] Work Phone: Comment on above: Expected: 07/12/2024 (Approximate), Expires: 11/12/2024 Start: 07-12-2024 End: 07-12-2024 Patient encounter procedure 07/12/2024 11:10 AM EDT Routine [facility] [address] [place] [address] Matt Stapleton, DO [address] [place] [address] [facility] Start: 07-12-2024 End: 07-12-2024 Professional / ancillary services management 07/12/2024 10:30 AM EDT Ancillary Procedure [facility] [address] [place] [address] [facility] Start: 06-20-2024 End: 06-20-2025 CBC panel - Blood by Automated count CBC Lab Routine Diabetes mellitus screening Expected: 06/20/2024 (Approximate), Expires: 06/20/2025 [facility] [employer] Work Phone: Comment on above: Expected: 06/20/2024 (Approximate), Expires: 06/20/2025 Start: 06-20-2024 End: 06-20-2025 Measurement of glucose 1 hour after glucose challenge for glucose tolerance test Glucose tolerance, 1 hour Lab Routine Diabetes mellitus screening Expected: 06/20/2024 (Approximate), Expires: 06/20/2025 [facility] Comment on above: Expected: 06/20/2024 (Approximate), Expires: 06/20/2025 Start: 06-20-2024 End: 10-20-2024 US for US OB follow up transabdominal approach Imaging Routine Antepartum multigravida of advanced maternal age Expected: 06/20/2024, Expires: 10/20/2024 [facility] Work Phone: Comment on above: Expected: 06/20/2024 , Expires: 10/20/2024 Start: 05-23-2024 End: 05-23-2024 Patient encounter procedure 05/23/2024 8:50 AM EDT Routine [facility] [address] [place] [id number] Matt Stapleton DO [address] [facility] [address] [place] [address] [facility] Start: 05-23-2024 End: 05-23-2024 Professional / ancillary services management 05/23/2024 8:00 AM EDT Ancillary Procedure [facility] [address] [place] [phone] [facility] Start: 04-14-2024 End: 04-14-2024 Patient encounter procedure 04/14/2024 3:50 PM EST Routine [facility] [address] [place] [address] Merary Wilcox PA [address] [place] [address] [facility] Start: 04-14-2024 End: 05-12-2024 Alpha fetoprotein, maternal Alpha fetoprotein, maternal Lab Routine 15 weeks gestation of Second trimester Expected: 04/14/2024 (Approximate), Expires: 05/12/2024 [facility] Comment on above: Expected: 04/14/2024 (Approximate), Expires: 05/12/2024 Start: 04-14-2024 End: 04-14-2025 US for US OB 14+ weeks anatomy scan Imaging Routine Screening, , for anatomic survey Expected: 04/14/2024, Expires: 04/14/2025 [facility] Healthcare Comment on above: Expected: 04/14/2024 , Expires: 04/14/2025 Start: 03-25-2024 Screening for malignant neoplasm of cervix [facility] Start: 03-16-2024 End: 03-16-2024 Patient encounter procedure [facility] Comment on above: Arrived Start: 03-08-2024 Bacteria identified in Urine by Culture Urine Culture [facility] Start: 03-08-2024 Urine culture [facility] Start: 02-16-2024 End: 02-15-2025 ABO/Rh ABO/Rh Lab Routine Missed menses , unspecified gestational age Expected: 02/16/2024 (Approximate), Expires: 02/15/2025 [facility] Comment on above: Expected: 02/16/2024 (Approximate), Expires: 02/15/2025 Start: 02-16-2024 End: 02-15-2025 Blood type and Indirect antibody screen panel - Blood Type and screen Lab Routine Missed menses , unspecified gestational age Expected: 02/16/2024 (Approximate), Expires: 02/15/2025 [facility] Work Phone: Comment on above: Expected: 02/16/2024 (Approximate), Expires: 02/15/2025 Start: 02-16-2024 End: 02-15-2025 Drugs of abuse panel - Urine by Screen method Rapid drug screen, urine Lab Routine , unspecified gestational age Encounter for supervision of normal first in first trimester Expected: 02/16/2024 (Approximate), Expires: 02/15/2025 [facility] Comment on above: Expected: 02/16/2024 (Approximate), Expires: 02/15/2025 Start: 02-16-2024 End: 02-16-2024 ambulatory 02/16/2024 8:30 AM EST Initial [facility] [address] [place] [address] [facility] Start: 02-16-2024 End: 02-16-2024 Professional / ancillary services management 02/16/2024 8:00 AM EST Ancillary Procedure [facility] [address] [place] [address] [facility] Start: 11-08-2023 COVID-19 Vaccine ( season) COVID-19 Vaccine ( season) [facility] Start: 11-08-2023 Influenza vaccination [facility] Start: 10-14-2023 End: 10-14-2023 Patient encounter procedure 10/14/2023 3:15 PM EDT Office Visit [facility] [address] [place] [address], [place] [phone] Jhonny Issa MD [address] [facility], [facility] [address] [place] [address] [facility] Start: 09-05-2023 Bacteria identified in Urine by Culture [facility] Start: 07-22-2023 End: 07-22-2023 Patient encounter procedure 07/22/2023 3:15 PM EDT Office Visit [facility] [address] [place] [address], [place] [phone] Jhonny Issa MD [address] [facility], [address] [address] [facility] Start: 04-27-2023 End: 04-27-2023 Patient encounter procedure 04/27/2023 3:15 PM EST Office Visit [facility] [address] [place] [address], [place] [phone] Jhonny Issa MD [address] [facility], [address] [place] [address] [facility] Start: 03-09-2023 Behavioral Health Screening Behavioral Health Screening [facility] Start: 03-04-2023 End: 03-04-2023 Patient encounter procedure 03/04/2023 8:40 AM EST Office Visit [facility] [address] [address] [place] [address] [address] [facility] Start: 02-19-2023 End: 02-20-2024 Drugs of abuse screen W Reflex confirm panel - Urine [email or web address] Service Area Work Phone: Comment on above: Expected: 02/19/2023 (Approximate), Expires: 02/20/2024 Start: 02-19-2023 End: 02-19-2023 Patient encounter procedure 02/19/2023 10:15 AM EST Office Visit [facility] [address] [facility] [address] [place] [address] Jhonny Issa MD [address] [facility], [facility] [address] [place] [address] [facility] Start: 11-07-2022 COVID-19 Vaccine ( season) COVID-19 Vaccine ( season) [facility] Start: 11-07-2022 Influenza vaccination Influenza Vacc ine (#1) [facility] Start: 01-21-2022 FUV, Provider: Luz Aguliar, Status: Pen, Time: 3:40 PM FUV, Provider: Luz Aguilar, Status: Pen, Time: 3:40 PM [id number] 200 Work Phone: Start: 01-20-2022 [id number], Provider: Bisi Prabhakar, Status: Pen, Time: 5:00 PM [id number], Provider: Bisi Prabhakar, Status: Pen, Time: 5:00 PM [facility] Work Phone: Start: 01-13-2022 [id number], Provider: Bisi Prabhakar, Status: Pen, Time: 5:00 PM [id number], Provider: Bisi Prabhakar, Status: Pen, Time: 5:00 PM [facility] Work Phone: Start: 01-08-2022 [id number], Provider: Bisi Prabhakar, Status: Pen, Time: 4:00 PM [id number], Provider: Bisi Prabhakar, Status: Pen, Time: 4:00 PM [facility] Work Phone: Start: 01-01-2022 [id number], Provider: Bisi Prabhakar, Status: Pen, Time: 4:00 PM [id number], Provider: Bisi Prabhakar, Status: Pen, Time: 4:00 PM [facility] Work Phone: Start: 12-25-2021 [id number], Provider: Bisi Prabhakar, Status: Pen, Time: 4:00 PM [id number], Provider: Bisi Prabhakar, Status: Pen, Time: 4:00 PM [facility] Work Phone: Start: 12-17-2021 [id number], Provider: Bisi Prabhakar, Status: Pen, Time: 5:00 PM [id number], Provider: Bisi Prabhakar, Status: Pen, Time: 5:00 PM [facility] Work Phone: Start: 11-07-2021 Influenza vaccination INFLUENZA (#1) [facility] Start: 10-16-2021 NPV, Provider: Nafisa Bermudez, Status: Pen, Time: 1:00 PM NPV, Provider: Nafisa Bermudez, Status: Pen, Time: 1:00 PM [id number] 200 Work Phone: Start: 10-08-2021 [id number], Provider : Rafaela Arguello, Status: Pen, Time: 11:40 AM VIRFUVHOME, Provider: Rafaela Arguello, Status: Pen, Time: 11:40 AM [id number]-[id number] 200 Work Phone: Start: 09-30-2021 FUV, Provider: Luz Aguilar, Status: Pen, Time: 1:40 PM FUV, Provider: Luz Aguilar, Status: Pen, Time: 1:40 PM [facility] Work Phone: Start: 09-18-2021 [id number], Provider: Bisi Prabhakar, Status: Pen, Time: 10:00 AM [id number], Provider: Bisi Prabhakar, Status: Pen, Time: 10:00 AM [facility] Work [facility]: Start: 09-06-2021 [id number], Provider: Bisi Prabhakar, Status: Pen, Time: 8:00 AM [id number], Provider: Bisi Prabhakar, Status: Pen, Time: 8:00 AM [facility] Work Phone: Start: 08-02-2021 FUV, Provider: Luz Aguilar, Status: Pen, Time: 8:20 AM FUV, Provider: Luz Aguilar, Status: Pen, Time: 8:20 AM [facility] Work Phone: Start: 06-21-2021 NPV, Provider: Luz Aguilar, Status: Pen, Time: 8:00 AM NPV, Provider: Luz Aguilar, Status: Pen, Time: 8:00 AM [facility] Work Phone: Start: 03-27-2021 COVID-19 VACCINE (3 - Booster for Pfizer series) COVID-19 VACCINE (3 - Booster for Pfizer series) [facility] Start: 12-20-2020 COVID-19 Vaccine (3 - Pfizer series) COVID-19 Vaccine (3 - Pfizer series) [facility] Start: 01-09-2020 FFD mammogram Breast screening Mamm - Ultrasound of Breast [place] [address] Work Phone: Start: 10-26-2017 HPV TESTING HPV TESTING [facility] Start: 10-26-2014 HPV Vaccine (1 - 3-dose SCDM series) HPV Vaccine (1 - 3-dose SCDM series) [facility] Start: 10-26-2009 DTaP/Tdap/Td Vaccine s (1 - Tdap) DTaP/Tdap/Td Vaccines (1 - Tdap) [facility] Start: 10-26-2008 PAP TESTING PAP TESTING [facility] Start: 10-26-2008 Screening for malignant neoplasm of cervix [facility] Start: 10-26-2006 DTaP,Tdap and Td Vaccines (1 - Tdap) DTaP,Tdap and Td Vaccines (1 - Tdap) [employer] [facility] Start: 10-26-2006 Hepatitis B Vaccine (1 of 3 - 19+ 3-dose series) Hepatitis B Vaccine (1 of 3 - 19+ 3-dose series) [facility] Start: 10-26-2006 Hepatitis B Vaccines (1 of 3 - 19+ 3-dose series) Hepatitis B Vaccines (1 of 3 - 19+ 3-dose series) [facility] Start: 10-26-2006 Urine microalbumin profile [facility] Start: 10-26-2005 Adult BMI Screening Adult BMI Screen ing [facility] Start: 10-26-2005 Anxiety Screening Anxiety Screening [facility] Start: 10-26-2005 Depression Screening Depression Scre ening [facility] Start: 10-26-2005 HEPATITIS C SCREENING HEPATITIS C [facility] Start: 10-26-2005 Hepatitis C screening Hepatitis C [facility] Start: 10-26-2005 HIV SCREENING HIV SCREENING [facility] Start: 10-26-2005 HIV screening HIV Screening [facility] Start: 10-26-2000 Varicella vaccination Varicell a Vaccines (1 of 2 - 13+ 2-dose series) [facility] Start: 1999 Adult depression screening assessment DEPRESSION SCREENING [facility] Start: 1999 Tobacco Screening Tobacco Screening [facility] Start: 10-26-1988 MMR Vaccines (1 of 1 - Standard series) MMR Vaccines (1 of 1 - Standard series) [facility] Start: 10-26-1988 Varicella vaccination Varicell a Vaccines (1 of 2 - 2-dose childhood series) [facility] Start: 1987 HEPATITIS B (1 of 3 - 3-dose series) HEPATITIS B (1 of 3 - 3-dose series) [facility] Start: 1987 Hepatitis B Vaccines (1 of 3 - 3-dose series) Hepatitis B Vaccines (1 of 3 - 3-dose series) [facility] Start: 1987 HIV screening HIV Screening [facility] Start: 1987 Yearly Adult Physical [facility]ly [facility] Bacteria identified in Urine by Culture Urine culture Microbiology Routine Missed menses Ordered: 02/16/2024 [facility] Comment on above: Ordered: 02/16/2024 CBC W Auto Differential panel - Blood CBC and differential Lab Routine Missed menses , unspecified gestational age Ordered: 02/16/2024 [facility] Comment on above: Ordered: 02/16/2024 CHLAMYDIA TRACHOMATI S (GENITO/STI) CHLAMYDIA TRACHOMATIS (GENITO/STI) Lab Routine Exposure to STD Ordered: 04/14/2024 [facility] [employer] Comment on above: Ordered: 04/14/2024 Comprehensive metabolic 2000 panel - Serum or Plasma Comprehensive metabolic panel Lab Routine Generalized anxiety disorder Encounter for medical examination to establish care Screening for cholesterol level Screening for heart disease Ordered: 11/01/2024 [facility] [employer] Work Phone: Comment on above: Ordered: 11/01/2024 Cytology Cervical or vaginal smear or scraping study Pap Smear Pathology and Cytology Routine Well woman exam with routine gynecological exam Ordered: 11/28/2024 [facility] [employer] Work Phone: Comment on above: Ordered: 11/28/2024 Hemoglobin A1c/Hemoglobin.total in Blood Hemoglobin A1c Lab Routine Missed menses , unspecified gestational age Ordered: 02/16/2024 [facility] [employer] Comment on above: Ordered: 02/16/2024 End: 08-15-2025 [...] menses , unspecified gestational age Ordered: 02/16/2024 [facility] Comment on above: Ordered: 02/16/2024 Hepatitis C virus Ab [Presence] in Serum or Plasma by Immunoassay Hepatitis C antibody Lab Routine Missed menses , unspecified gestational age Ordered: 02/16/2024 [facility] Comment on above: Ordered: 02/16/2024 HIV-1/HIV-2 antigen/antibody combination immunoassay HIV-1 and HIV-2 antibodies Lab Routine Missed menses , unspecified gestational age Ordered: 02/16/2024 [facility] Comment on above: Ordered: 02/16/2024 Human papilloma viru s DNA [Presence] in Unspecified specimen by Probe with amplification HPV DNA probe, amplified Microbiology Routine Well woman exam with routine gynecological exam Ordered: 04/14/2024 [facility] Work Phone: Comment on above: Ordered: 04/14/2024 Human papilloma viru s DNA [Presence] in Unspecified specimen by Probe with amplification HPV DNA probe, amplified Microbiology Routine Well woman exam with routine gynecological exam Ordered: 11/28/2024 [facility] Comment on above: Ordered: 11/28/2024 Lipid 1996 panel - Serum or Plasma Lipid panel Lab Routine Generalized anxiety disorder Encounter for medical examination to establish care Screening for cholesterol level Screening for heart disease Ordered: 11/01/2024 [facility] Comment on above: Ordered: 11/01/2024 Neisseria gonorrhoea e DNA [Presence] in Unspecified specimen by GENTRY with probe detection Neisseria gonorrhea DNA probe, direct Lab Routine Exposure to STD Ordered: 04/14/2024 [facility] Comment on above: Ordered: 04/14/2024 Reagin Ab [Presence] in Serum by RPR RPR Lab Routine Missed menses , unspecified gestational age Ordered: 02/16/2024 [facility] Comment on above: Ordered: 02/16/2024 Rubella antibody, IgG Rubella an tibody, IgG Lab Routine Missed menses , unspecified gestational age Ordered: 02/16/2024 [facility] Comment on above: Ordered: 02/16/2024 SURESWAB(R) ADVANCED VAGINITIS PLUS, TMA SURESWAB(R) ADVANCED VAGINITIS PLUS, TMA Pathology and Cytology Routine Vaginal discharge Ordered: 04/14/2024 [facility] Comment on above: Ordered: 04/14/2024 Tissue Pathology biopsy report SURGICAL PATHOLOGY Lab Routine Neoplasm of skin Release Upon Ordering for 1 Occurrences starting 10/25/2024 [facility] Work Phone: Comment on above: Release Upon Orderin g for 1 Occurrences starting 10/25/2024 [id number] 200 Work Phone: NEGATED: Highlighted row has been ruled out! Planned Goals not documented [id number] 200 Work Phone: Immunizations Immunization Date Immunization Notes Care Provider Elina flores 10-25-2020 Pfizer-BioNTech COVI D-19 Vacc 30 MCG/0.3ML Intramuscular Suspension Rafaela Arguello Work Phone: [id number] 200 Work Phone: 10-04-2020 Pfizer-BioNTech COVI D-19 Vacc 30 MCG/0.3ML Intramuscular Suspension Rafaela Arguello Work Phone: [id number] 200 Work Phone: Payers Date Payer Category Payer Medicaid HMO [employer] [id number] 2024 Medicaid [id number] 2024 Commercial Managed C [facility] [employer] [id number] 2023 Medicaid [id number]. [id number] 2023 Medicaid [id number] 2023 Self-pay [id number] 2022 Managed Care (Private) [employer] [id number] 2020 Private Health Insurance [id number]. [id number] 2020 Unknown 1987 Unknown [id number] 2.0.1.954527.3.579.2. 593 1987 Unknown [id number] 2.0.1.920511.3.579.2. 593 1987 Unknown [id number] 2.840.1.811738.3.579.2. 593 1987 Unknown [id number] 2.840.1.844534.3.579.2. 593 1987 Unknown [id number] 2.840.1.609048.3.579.2. 593 1987 Unknown [id number] .0.1.309932.3.579.2. 356 1987 Unknown [id number] 2.840.1.555315.3.579.2. 356 1987 Unknown [id number] 2.840.1.868109.3.579.2. 356 1987 Unknown [id number] 2.840.1.846550.3.579.2. 356 1987 Unknown [id number] 2.840.1.172336.3.579.2. 356 1987 Unknown [id number] 2.16.840.1.065987.3.579.2. 1244 1987 Unknown [id number] 2.16.840.1.237657.3.579.2. 1244 1987 Unknown [id number] 2.16.840.1.152667.3.579.2. 1244 1987 Unknown [id number] 2.16.840.1.860565.3.579.2. 1244 1987 Unknown [id number] 2.16.840.1.000922.3.579.2. 1244 1987 Unknown [id number] 2.16840.1.406139.3.579.2. 1242 1987 Unknown [id number] 2.16.840.1.791944.3.579.2. 3 1987 Unknown [id number] 2.840.1.109750.3.579.2. 124 1987 Unknown [id number] 2.16.840.1.181460.3.579.2. 1286 1987 Unknown [id number] 2.16840.1.861247.3.579.2. 1286 1987 Unknown [id number] 2.16.840.1.251280.3.579.2. 9 1987 Unknown [id number] 2.840.1.787556.3.579.2. 9 1987 Unknown [id number] 2.16.840.1.850210.3.579.2. 1259 1987 Unknown [id number] 2.16.840.1.554611.3.579.2. 9 1987 Unknown [id number] 2.16.840.1.711303.3.579.2. 1259 1987 Unknown [id number] 2.16.840.1.839658.3.579.2. 1259 1987 Unknown [id number] 2.16.840.1.565497.3.579.2. 9 1987 Unknown [id number] 2.16.840.1.776032.3.579.2. 1258 1987 Unknown [id number] 2.16.840.1.020590.3.579.2. 1258 1987 Unknown [id number] 2.16.840.1.625228.3.579.2. 1258 1987 Unknown [id number] 2.16.840.1.327283.3.579.2. 1258 1987 Unknown [id number] 2.16.840.1.317524.3.579.2. 1258 1987 Unknown [id number] 2.16.840.1.444769.3.579.2. 1258 1987 Unknown [id number] 2.16.840.1.474210.3.579.2. 1258 1987 Unknown [id number] 2.16.840.1.022566.3.579.2. 1258 1987 Unknown [id number] 2.16.840.1.702571.3.579.2. 1259 1959 Unknown [id number] Unknown [id number] 2.16.840.1.364797.3.579.2. 531 Unknown [id number] 2.16.840.1.185588.3.579.2. 531 Social History Date Type Detail Facility Assertion Tobacco smoking consumption unknown (finding) [id number] Work Phone: Start: 12-03-2022 End: 11-01-2024 Non-smoker Non-smoker [facility] Start: 02-19-2023 End: 11-01-2024 Tobacco smoking status NHIS Never smoked tobacco [facility] Start: 10-17-2021 End: 09-01-2023 Alcohol intake Current drinker of alcohol (finding) [facility] Start: 05-14-2010 History SDOH Alcohol Comment occasional [facility] Start: 1985 Sex Assigned At Not on file [facility] Start: 1985 Sex Assigned At Female [facility] Start: 12-03-2022 End: 11-01-2024 Sex Assigned At [facility] Tobacco smoking status NHIS Tobacco smoking consumption unknown [facility] Start: 12-09-2022 End: 01-05-2024 Exposure to SARS-CoV-2 (event) Not sure [facility] Start: 02-19-2023 End: 11-01-2024 Tobacco use and exposure Smokeless tobacco non-user [facility] Work Phone: Start: 02-19-2023 End: 01-05-2024 Alcohol intake Defer [facility] Work Phone: Start: 02-08-2012 National Score (1-100), lower number is lower risk 52 [facility] [employer] Work Phone: Start: 01-09-2024 [facility] Start: 03-09-2024 End: 08-03-2024 Sex Female (finding) [facility] Start: 08-15-2024 Alcoholic beverage intake Ex-drinker (finding) [facility] Start: 11-01-2024 End: 11-10-2024 Alcoholic beverage intake Lifetime non-drinker (finding) [facility] NEGATED: Highlighted rowStart: NINF History of tobacco use Passive smoker [facility] Medical Equipment Procedure Code Equipment Code Equipment Origin al Text Equipment Identifier Dates 1 strip by In Vi tro route Daily Use in the morning prior to breakfast, 1 hour after each meal for a total of 4times daily. [id number] Start: 07-12-2024 End: 08-11-2024 1 each by In Vit ro route Daily Use to check FSBS four times daily [id number] Start: 07-12-2024 End: 08-11-2024 Use as instructed [id number] Start: 08-02-2024 End: 11-01-2024 Use to inject insulin once daily as prescribed. Use a new pen needle for each insulin pen injection. [id number] Start: 08-09-[address] rips per insurance preference. Use 1 strip 4 to 5 times per day. [id number] Start: 09-12-2024 Lancets per insurance preference. Use one lancet 4 to 5 times per day. [id number] Start: 09-12-2024 Goals Date Patient Goal Desired Activity /State Personal health goal Functional Status Date Assessment Result Facility 11-01-2024 Patient Health Questionnaire 2 item (PHQ-2) [Reported] [facility] NEGATED: Highlighted row Functional performance Functional status health issues are not documented Disease [id number] [facility] Work Phone: Mental Status Date Assessment Result Facility NEGATED: Highlighted row Cognitive function [Interpretation] Cognitive status health issues are not documented Disease [id number] [facility] Work Phone: Clinical Notes 03-04-2012 to 11-28-2024 Keren Hopper, [facility] - 11/28/2024 1:40 PM Gerardo Zelaya, [facility] - 11/10/2024 10:30 AM Aurelio Cheng, WAIST PLEATER - 11/01/2024 11:00 AM Elfego Nixon, KEY ACCOUNT MANAGER - 10/26/2024 4:00 PM EDTPatient Instructions Note Date & Type Note Facility 11-28-2024 History of Present illness Narrative Reason for Appointment: Patient ID: Michael Weller is a 39 y.o. female who [...] nursing note reviewed. Exam conducted with a stripper and printer present. Vitals: Estimated body mass index is 36.53 kg/m as calculated from the following: Height [...] Matt Stapleton DO documented in this encounter [place] [facility] History of Present illness Narrative Reason for Appointment: Patient ID: Michael Weller is a 39 y.o. female who presents for Contraception Patient presents today for Mirena IUD insertion. MEDICATIONS Current Outpatient Medications Medication Instructions buPROPion [...] nursing note reviewed. Exam conducted with a stripper and printer present. Vitals: Estimated body mass index is 36.28 kg/m as calculated from the following: Height as of 11/01/24: 5' 5 . Weight as of this encounter: 218 lb. BP: 110/70 Patient's last menstrual period was 11/08/2024. ASSESSMENT & PLAN ICD-10-CM 1. Encounter for insertion of intrauterine contraceptive device (IUD) Z30.430 Levonorgestrel intrauterine device 52 mg POCT , urine manually resulted 2. Encounter for insertion of Mirena IUD Z30.430 Levonorgestrel intrauterine device 52 mg POCT , urine manually resulted 3. Encounter for initial prescription of vaginal ring hormonal contraceptive Z30.015 etonogestrel-ethinyl estradiol (NuvaRing) 0.12-0.015 MG/24HR vaginal ring Patient presented for Mirena IUD insertion, but it was a failed procedure. . Patient is having a Mirena placed and written consent was obtained. Patient was placed in the dorsal lithotomy position with feet in stirrups. A sterile speculum was placed into the vagina and the cervix was visualized. Cervix was cleansed with betadine and the anterior lip was grasped with single-tooth tenaculum. Uterus was then gently sounded. New IUD device was gently advanced through the endocervix, toward the uterine fundus. The IUD was then deployed as device was gently removed from the uterus. Prior to trimming strings of IUD, the IUD had expelled from uterus. All instruments were removed from the vagina. Discussed other control options with patient and NuvaRing will be sent to pharmacy. Patient is scheduled for annual appointment in 2 weeks and at that time can follow up with any concerns in regards to NuvaRing. All of patients questions were answered and she expressed understanding. Advised to call interim with any questions or concerns. Follow Up: Patient is to return to the office routine scheduled annual appointment. Documented by Maria Victoria Zelaya LPN on behalf of: Matt Stapleton DO documented in this encounter [facility] 11-01-2024 History of Present illness Narrative Images from the original note were not included. Michael Weller is a 39 y.o. female presents with chief complaint of Med Refill HPI: History of Present Illness The patient is a 39-year-old female who presents to [facility]. She has a history of gestational diabetes and recently gave on 09/14/2024. Her was complicated, but the delivery was normal. She is not currently . She reports no constipation, diarrhea, chest pain, or shortness of breath. She has started exercising again. She is currently on Wellbutrin 150 mg for anxiety, which is well-managed at this dose. An attempt to increase the dosage to 300 mg was unsuccessful. She also takes Focalin for ADHD, diagnosed by a neurologist at [facility]. She is predominantly inattentive and experiences difficulty concentrating and completing tasks. She began taking Focalin in 2022 but discontinued it during her . She resumed the medication post-delivery, taking 10 mg in the morning and 5 mg at 3:00 PM and 6:00 PM, totaling 20 mg daily. She reports no difference between the extended-release and immediate-release formulations. She also experienced insomnia due to racing thoughts, but this has improved with medication. She had a heart murmur when she was young. Around 7 years old, she stopped being able to walk due to significant pain in her left hip. Despite attempts to culture bacteria the cause remained undetermined. She underwent hip surgery at that time. Approximately 9 months ago, she had a fatty tumor removed from her right back side. She has had her tonsils and gallbladder removed. In 2015, she discovered a mole that was diagnosed as melanoma, which was caught early and treated without further complications. 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 She was under the care of a electromechanical assembly technician and urologist. The recurrent UTIs caused some damage to her kidneys, leading to a temporary avoidance of NSAIDs to allow her kidneys to heal. She did not experience renal failure but had recurrent UTIs. An imaging test in 2020 revealed some damage to the papillae in her kidneys. 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 dexmethylphenidate (FOCALIN) 10 mg, Oral, Daily dexmethylphenidate (FOCALIN) 5 mg, Oral, 2 times daily, At 3pm and 6pm ALLERGIES: Allergies Allergen Reactions Cat Dander Itching Latex Rash Loracarbef Unknown Other Reaction(s): Unknown Nsaids Itching, Other and Unknown Pt states adverse reaction of ulcers occurs advised not to take Other Reaction(s): Other Review of Systems Medical, Surgical, Family, and Social History reviewed. General: Denies fever, chills, fatigue, RAMÍREZ or weight loss/gain CV: Denies CP, palpitations or swelling in legs Resp: denies cough, SOB or wheezing GI: Denies abd pain/n/v/c/d Skin: Denies rash Neuro: Denies LH or dizziness OBJECTIVE: Visit Vitals BP 110/66 (BP Location: Left arm, Patient Position: Sitting, BP Cuff Size: Large adult) Pulse 78 Temp 98.4 F (Temporal) Ht 5' 5 Wt 219 lb 9.6 oz SpO2 98% No BMI 36.54 kg/m OB Status Recent Smoking Status Never BSA 2.14 m BP Readings from Last 3 Encounters: 11/01/24 110/66 10/26/24 108/70 09/06/24 110/70 Wt Readings from Last 3 Encounters: 11/01/24 219 lb 9.6 oz 10/26/24 221 lb 09/06/24 243 lb 8 oz Physical Exam Physical Exam Ears: Both ears are clear. Respiratory: Clear to auscultation, no wheezing, rales or rhonchi Cardiovascular: Regular rate and rhythm, no murmurs, rubs, or gallops Gastrointestinal: Soft, no tenderness, no distention, no masses General: alert & oriented, NAD Head: NC/AT Oral Cavity: MMM Skin: warm, dry Musculoskeletal: normal gait Extremities: no clubbing, cyanosis or edema Neurological: nonfocal Psych: mood/affect full range Results ASSESSMENT AND PLAN: Assessment & Plan 1. Anxiety: - Wellbutrin 150 mg is effectively controlling anxiety symptoms. - A previous attempt to increase the dosage to 300 mg was not well-tolerated, so she reverted to 150 mg. 2. Attention deficit hyperactivity disorder (ADHD): - Symptoms are managed effectively with the current regimen of Focalin XR 10 mg in the morning and Focalin IR 5 mg at 3:00 PM and 6:00 PM. - Prescription for Focalin XR 10 mg once daily and Focalin IR 5 mg at 3:00 PM and 6:00 PM will be provided. She will call when she needs a refill. 3. Health maintenance: - A lipid panel will be ordered to assess cholesterol levels. A comprehensive metabolic panel (CMP) will be conducted to evaluate kidney and liver function. - She is advised to maintain hydration and abstain from alcohol consumption for approximately one week prior to the blood draw. Follow-up: The patient will follow up in 2 months. For refill ok to dose out focalin xr 10mg once a day and focalin IR- 5MG AT 3:00 AND 6:00PM Assessment/Plan Diagnoses and all orders for this visit: Encounter for medical examination to establish care - Comprehensive metabolic panel - Lipid panel History of heart murmur in childhood Generalized anxiety disorder - Comprehensive metabolic panel - Lipid panel Attention deficit hyperactivity disorder (ADHD), predominantly inattentive type Screening for cholesterol level - Comprehensive metabolic panel - Lipid panel Screening for heart disease - Comprehensive metabolic panel - Lipid panel Renal papillary necrosis Health Maintenance Due Topic Date Due Influenza Vaccine (1) 11/07/2024 documented in this encounter [facility] 10-26-2024 History of Present illness Narrative Reason for Appointment: Patient ID: Michael Weller is a 39 y.o. female who presents for Care Patient presents today for Post Follow Up appointment. MEDICATIONS Current Outpatient Medications Medication Instructions Alcohol Swabs (Alcohol Prep Pad) 70 % pads 1 Pad, Topical, Daily, Use four times daily to check FSBS. Blood Glucose Monitoring Suppl ([employer]New Era Portfolio Glucometer) w/Device kit 1 kit, Does not apply, Daily, Use four times daily to check FSBS. In the morning prior to breakfast & 1 hour after each meal for a total of 4times daily. buPROPion XL (WELLBUTRIN XL) 150 mg, Oral, Daily, Do not crush, chew, or split. dexmethylphenidate (FOCALIN) 10 mg, Oral, Daily dexmethylphenidate (FOCALIN) 5 mg, Oral, 2 times daily, At 3pm and 6pm insulin lispro (HUMALOG) 3 Units, 3 times [...] nursing note reviewed. Exam conducted with a stripper and printer present. Vitals: Estimated body mass index is 36.78 kg/m as calculated from the following: Height as of 05/30/21: 5' 5 . Weight as of this encounter: 221 lb. BP: 108/70 Patient's last menstrual period was 12/18/2023. ASSESSMENT & PLAN ICD-10-CM 1. 6 weeks follow-up ([facility]) Z39.2 Post Follow Up: Patient is doing well but has complaints of none. Patient presents today for 6 week visit. Patient is s/p Vaginal delivery. Patient states depression but denies suicidal and homicidal ideations. All options were discussed with the patient regarding control and patient desires IUD. Pt to return in a couple weeks for Mirena placement. Follow Up: Patient is to return for annual unless needed otherwise. Documented by Bisi Nixon LPN on behalf of: Matt Stapleton DO documented in this encounter [facility] 10-25-2024 Instructions Chery Bentley LPN - 10/25/2024 2:03 PM EDT Images from the original note were not included. Over the counter products you can purchase on your own: Sunscreen Information In general, sunscreens that are physical sunscreens (meaning they contain zinc oxide +/- titanium dioxide). Chemical sunscreens (those that contain avobenzone, oxybenxone, etc). Be sure to wear sunscreen with SPF 30 or higher every day (including in the winter) and SPF 50 or higher on days you know you will be spending a lot of time outside. Sunscreen should be applied every 2 hours when outside. Wear broad brimmed hats and stay in shade whenever possible. Sun protective clothing is another great option to protect your skin from the sun. For Dry skin Vanicream Broad Spectrum SPF 50+ (mineral)- Best for sensitive skin. Makeup may not set well when applying over this product. [place] Posay Toleriane Double Repair Face Moisturizer UV (chemical) solarsciences tinted mineral (mineral)- we have here at [facility] Vanicream face moisturizer with mineral sunscreen SPF 30 For Normal/ Oily Cetaphil Sheer Mineral Face Sunscreen La Ely-Posay Anthelios RAMÍREZ Mineral Julio Cesarta UV Clear Maelove The Sun Protector (SPF 30)- can also work as a primer under makeup For More Richly Pigmented Skin Types La Ely Posay tinted mineral (mineral) Neutrogena UV tint (comes in 4 tint levels)- Mineral Black Girl Sunscreen (Chemical) Sunscreens that are a little easier to put on kids Vanicream Broad spectrum SPF 50- See above. Just rubs in very easily and is good for sensitive skin Neutrogena Sheer Zinc Mineral Sunscreen Stick Scalp Sunscreen - Color Science [place] on mineral sunscreen SPF 50 Reapplication during the day over makeup - [employer] [place] on Mineral sunscreen SPF 50 Below is a list of some sunscreens (these are over the counter meaning you purchase them on your own): Non-Tinted: [place] Posay Antihelios Mineral, Cerave AM sunscreen, EltaMD UV Clear, Skin Better Tone Smart Tinted (have color to help match skin tone): Neutrogena UV Tint, [place] Posay Antihelios Mineral Tinted Sunscreen, Cerave Hydrating Mineral Sunscreen Face Sheer Tint, EltaMD UV Clear Tinted, Sente Even Tone Sun protective Clothing - [email or web address] - [email or web address]/ CARE OF BIOPSY SITE 1. Wash your hands with soap and water. 2. Cleanse the biopsy site with gentle soap. 3. Thoroughly dry the area and apply a small amount of Vaseline or Aquaphor to keep area greasy at all times (this prevents a scab from forming). 4. PLEASE DO NOT use polysporin, Bacitracin, triple antibiotic or similar ointments. 5. Place a small dressing or band-aid over the wound until the wound is healed. (Studies show that wounds heal better when covered with ointment and a dressing). documented in this encounter [facility] 10-25-2024 Note HNO ID: [id number] Author: KEYUR NARAYANAN APRN.DISTRIBUTION CENTER MANAGER Service: ? Author Type: Nurse Practitioner Type: Progress Notes Filed: 10/25/2024 16:02 Note Text: [place] [facility] ESTABLISHED PATIENT Last Visit to [facility]: 09/01/2023 Subjective CC: Full Body Skin Check HPI: Michael Weller is a 38 year old female presenting today for # Full Body Skin Exam (Skin Cancer Screening) # Lesion, skin Location: 3rd right toe Duration: noticed during (this Winter) gave 5 weeks ago Symptoms/Course: brown macule Current Treatment: none Past Treatment: none No other concerns today. Pertinent Dermatologic History: History of skin cancer: 08/2015 Melanoma: right lower leg from Derm in [facility] building History of atypical nevi: No History of blistering sunburns / extensive sun exposure: Yes History of tanning bed use: Yes, Yes, excessive use during teenage years Pertinent Medical History: Organ Transplant / Immunosuppression: No Pacemaker / Defibrillator / Heart Valve Replacement: No / Planning / : No Pertinent Family History: Family history of skin cancer: No Objective (Electronically Updated / Obtained from [employer] E[employer]) Past Medical History Reviewed. Medications Reviewed. Allergies Reviewed. ROS: As per HPI. PHYSICAL EXAM: Robert Skin Type: II Pleasant female in no apparent distress. Alert and oriented x 3. Appears well developed, well nourished, and in otherwise good health. Appropriate mood and affect. A skin exam of the (full body) scalp, face, ears, neck, chest, abdomen, back, bilateral upper extremities, bilateral lower extremities, buttocks, hands, feet, and nails was performed, with pertinent findings as noted in the AANDP. Underwear was kept on per patient preference, excluding genitalia. Presence of nail ugandan. Generalized Multiple scattered pink papules with flaccid epidermis and small, symmetric lamas to brown macules with uniform pigmentation over the trunk and extremities. Generalized Densely scattered light lamas macules and small patches on all sun exposed areas Generalized Bright red, dome-shaped papules Generalized Stuck-on verrucous, variably pigmented papule(s) and plaque(s) throughout Right 3rd Distal Dorsal Toe A) shave biopsy of 0.3 cm x 0.3 cm light to dark brown papule R/O ATN, history of MM IMPRESSION Assessment AND Plan NEOPLASM OF SKIN Right 3rd Distal Dorsal Toe - SKIN / NAIL BIOPSY Type of biopsy: tangential Informed consent: discussed and consent obtained Timeout: patient name, date of , surgical site, and procedure verified Instrument used: DermaBlade Hemostasis achieved with: aluminum chloride Outcome: patient tolerated procedure well Post-procedure details: wound care instructions given Specimen A - Surgical Pathology A) shave biopsy of 0.3 cm x 0.3 cm light to dark brown papule R/O ATN, history of MM PERSONAL HISTORY OF MALIGNANT MELANOMA OF SKIN Generalized Recommend routine exams with appropriate specialties for continued melanoma surveillance. Recommend regular self-monitoring of skin lesions, looking for the ABCDEs (Asymmetry, Border, Color, Diameter, Evolving). Continue full body skin exam every 3 months for the first 2 years after diagnosis of melanoma, then every 6 months for the next 5 years, then yearly for life. She will look for original pathology and message us in [employer] MULTIPLE BENIGN NEVI OF UPPER EXTREMITY, LOWER EXTREMITY, AND TRUNK Generalized Observational course, monitor for growth and changes LENTIGINES Generalized Educated on benign nature. Observational course, monitor for changes CHIRINOS ANGIOMA Generalized Educated on benign nature. Observational course, monitor for changes SEBORRHEIC KERATOSES Generalized Educated on benign nature. Observational course, monitor for changes UNIVERSAL PROTOCOL / SAFETY CHECKLIST Procedure to be Performed: shave biopsy Sign In: A Moment of CARE was completed. Personnel directly involved with the procedure wore the appropriate PPE (Personal Protective Equipment). Patient/Surrogate Stated/Verified: PATIENT VERIFIED (optional for EMERGENT procedures): Patient name, Date of , Relevant allergies, and The intended procedure Time Out Communication: Intended patient and procedure match the source documents. Consent documented and matches the intended procedure. Relevant labs, photos, and/or imaging studies have been reviewed. Correct side/site marked and visible. Medications required for procedure verified. Sign Out: SIGN OUT (optional for EMERGENT procedures): All specimen containers correctly labeled. All instruments, equipment, possible retained foreign bodies accounted for. Post-procedure follow-up management communicated and Plan of Care Visit completed when applicable. Keyur Narayanan DISTRIBUTION CENTER MANAGER Return in about 1 year (around 10/07 (more content not included)... [facility] 10-25-2024 History of Present illness Narrative Images from the original note were not included. [place] [facility] ESTABLISHED PATIENT Last Visit to [facility] Dermatology: 09/01/2023 Subjective CC: Full Body Skin Check HPI: Michael Weller is a 38 year old female presenting today for # Full Body Skin Exam (Skin Cancer Screening) # Lesion, skin Location: 3rd right toe Duration: noticed during (this Winter) gave 5 weeks ago Symptoms/Course: brown macule Current Treatment: none Past Treatment: none No other concerns today. Pertinent Dermatologic History: History of skin cancer: 08/2015 Melanoma: right lower leg from Derm in [facility] building History of atypical nevi: No History of blistering sunburns / extensive sun exposure: Yes History of tanning bed use: Yes, Yes, excessive use during teenage years Pertinent Medical History: Organ Transplant / Immunosuppression: No Pacemaker / Defibrillator / Heart Valve Replacement: No / Planning / : No Pertinent Family History: Family history of skin cancer: No Objective (Electronically Updated / Obtained from [employer] E[employer]) Past Medical History Reviewed. Medications Reviewed. Allergies Reviewed. ROS: As per HPI. PHYSICAL EXAM: Robert Skin Type: II Pleasant female in no apparent distress. Alert and oriented x 3. Appears well developed, well nourished, and in otherwise good health. Appropriate mood and affect. A skin exam of the (full body) scalp, face, ears, neck, chest, abdomen, back, bilateral upper extremities, bilateral lower extremities, buttocks, hands, feet, and nails was performed, with pertinent findings as noted in the A&P. Underwear was kept on per patient preference, excluding genitalia. Presence of nail ugandan. Generalized Multiple scattered pink papules with flaccid epidermis and small, symmetric lamas to brown macules with uniform pigmentation over the trunk and extremities. Generalized Densely scattered light lamas macules and small patches on all sun exposed areas Generalized Bright red, dome-shaped papules Generalized Stuck-on verrucous, variably pigmented papule(s) and plaque(s) throughout Right 3rd Distal Dorsal Toe A) shave biopsy of 0.3 cm x 0.3 cm light to dark brown papule R/O ATN, history of MM IMPRESSION Assessment & Plan NEOPLASM OF SKIN Right 3rd Distal Dorsal Toe - SKIN / NAIL BIOPSY Type of biopsy: tangential Informed consent: discussed and consent obtained Timeout: patient name, date of , surgical site, and procedure verified Instrument used: DermaBlade Hemostasis achieved with: aluminum chloride Outcome: patient tolerated procedure well Post-procedure details: wound care instructions given Specimen A - Surgical Pathology A) shave biopsy of 0.3 cm x 0.3 cm light to dark brown papule R/O ATN, history of MM PERSONAL HISTORY OF MALIGNANT MELANOMA OF SKIN Generalized Recommend routine exams with appropriate specialties for continued melanoma surveillance. Recommend regular self-monitoring of skin lesions, looking for the ABCDEs (Asymmetry, Border, Color, Diameter, Evolving). Continue full body skin exam every 3 months for the first 2 years after diagnosis of melanoma, then every 6 months for the next 5 years, then yearly for life. She will look for original pathology and message us in My[facility] MULTIPLE BENIGN NEVI OF UPPER EXTREMITY, LOWER EXTREMITY, AND TRUNK Generalized Observational course, monitor for growth and changes LENTIGINES Generalized Educated on benign nature. Observational course, monitor for changes CHIRINOS ANGIOMA Generalized Educated on benign nature. Observational course, monitor for changes SEBORRHEIC KERATOSES Generalized Educated on benign nature. Observational course, monitor for changes UNIVERSAL PROTOCOL / SAFETY CHECKLIST Procedure to be Performed: shave biopsy Sign In: A Moment of CARE was completed. Personnel directly involved with the procedure wore the appropriate PPE (Personal Protective Equipment). Patient/Surrogate Stated/Verified: PATIENT VERIFIED (optional for EMERGENT procedures): Patient name, Date of , Relevant allergies, and The intended procedure Time Out Communication: Intended patient and procedure match the source documents. Consent documented and matches the intended procedure. Relevant labs, photos, and/or imaging studies have been reviewed. Correct side/site marked and visible. Medications required for procedure verified. Sign Out: SIGN OUT (optional for EMERGENT procedures): All specimen containers correctly labeled. All instruments, equipment, possible retained foreign bodies accounted for. Post-procedure follow-up management communicated and Plan of Care Visit completed when applicable. Keyur Narayanan CNP Return in about 1 year (around 10/25/2025), or if symptoms worsen or fail to improve, for full body skin check. Follow up as noted above and in Assessment & Plan; otherwise, PRN / sooner for questions and concerns. Attestation The documentation for this note was completed by Chery Bentley LPN acting as scribe for Keyur Narayanan APRN.CNP. Electronically Signed: Chery Bentley LPN on October 25, 2024 2:02 PM. I agree with the Chief Complaint, ROS, and Past Histories independently gathered by the clinical administrative support manager and the remaining scribed note accurately describes my personal service to the patient. Electronically Signed: Keyur Narayanan APRN.CNP on October 25, 2024 2:41 PM. Keyur Narayanan APRN.CNP Dermatology Medical Decision Making: Problems: Low: 2+ self-limited or minor problems Risk: Moderate: Drug management Medical Decision Making Level: 3 - Low documented in this encounter [facility] 09-06-2024 History of Present illness Narrative Reason for Appointment: Patient ID: Michael Weller is a 38 y.o. female who presents for Routine Visit Patient presents today for Return OB appointment. MEDICATIONS Current Outpatient Medications Medication Instructions Alcohol Swabs (Alcohol Prep Pad) 70 % pads 1 Pad, Topical, Daily, Use four times daily to check FSBS. Blood Glucose Monitoring Suppl ([employer] Portfolio Glucometer) w/Device kit 1 kit, Does not [...] nursing note reviewed. Exam conducted with a stripper and printer present. Vitals: Estimated body mass index is 40.52 kg/m as calculated from the following: Height as of 05/30/21: 5' 5 . Weight as of this encounter: 243 lb 8 oz. BP: 110/70 Patient's last menstrual period was 12/18/2023. ASSESSMENT & PLAN ICD-10-CM 1. Third trimester ([facility]) Z34.93 POCT urinalysis dipstick manually resulted CULTURE, GROUP B STREP WITH SUSCEPTIBLITY CULTURE, GROUP B STREP WITH SUSCEPTIBLITY 2. 36 weeks gestation of ([facility]) Z3A.36 3. Excessive growth affecting management of , antepartum, single or unspecified fetus ([facility]) O36.60X0 4. Insulin controlled gestational diabetes mellitus (GDM) in third trimester ([facility]) O24.414 5. Antepartum multigravida of advanced maternal age ([facility]) O09.529 Patient is doing well but has complaints of being tired and having maternal discomfort due to . Patient verbalized frequent movement and was instructed to perform kick counts three times per day. labor precautions were given, LARC consent was signed/declined, and GBS was obtained. Cervical check was performed and patient is 1cm dilated. Pt to be induced on 09/14/24 at 0500. Induction consents signed. Orders Placed This Encounter Procedures CULTURE, GROUP B STREP WITH SUSCEPTIBLITY POCT urinalysis dipstick manually resulted Follow Up: Patient is to return to office in 1 week for routine OB appointment Documented by Bisi Nixon LPN on behalf of: Matt Stapleton DO documented in this encounter [facility] 09-02-2024 Miscellaneous Notes Tried to speak to patient to confirm that she received Sherin's voicemail from 08/30/24 that detailed her insulin changes for this week. Had to leave a voicemail this time as well. Will also send a [employer] message re-iterating the contents of Sherin's message. documented in this encounter [facility] [employer] 09-02-2024 Telephone encounter Note Tried to speak to patient to confirm that she received Sherin's voicemail from 08/30/24 that detailed her insulin changes for this week. Had to leave a voicemail this time as well. Will also send a [employer] message re-iterating the contents of Sher[facility]'s message. [facility] History of Present illness Narrative Reason for [...] nursing note reviewed. Exam conducted with a stripper and printer present. Vitals: Estimated body mass index is 40.17 kg/m as calculated from the following: Height as of 05/30/21: 5' 5 . Weight as of this encounter: 241 lb 6.4 oz. BP: 116/70 Patient's last menstrual period was 12/18/2023. ASSESSMENT & PLAN ICD-10-CM 1. 35 weeks gestation of ([facility]) Z3A.35 POCT urinalysis dipstick manually resulted 2. Third trimester ([facility]) Z34.93 POCT urinalysis dipstick manually resulted 3. Excessive growth affecting management of , antepartum, single or unspecified fetus ([facility]) O36.60X0 US OB follow up transabdominal approach 4. Multigravida of advanced maternal age in third trimester ([facility]) O09.523 5. Insulin controlled gestational diabetes mellitus (GDM) in third trimester ([facility]) O24.414 Return OB: Patient presents today for a routine obstetrics appointment. Patient is currently 35w4d . Patient states she is doing well but has complaints of being tired due to current . Patient has verbalizes frequent movement. labor precautions was discussed/given and patient was instructed to perform kick counts three times a day. Pt continuing to call in sugars to MFM- recently increased insulin. Orders Placed This Encounter Procedures US OB follow up transabdominal approach POCT urinalysis dipstick manually resulted Follow Up: Patient is to return to office in 1 week for routine OB appointment. Documented by Bisi Nixon LPN on behalf of: Matt Stapleton DO documented in this encounter [facility] 08-30-2024 Miscellaneous Notes Called pt to discuss her insulin change and received voicemail. Left her a message that Lucretia Villafana reviewed her blood sugars and would like her to increase her lantus in the evening to 17 units. She would also like her to start humalog a short acting insulin before her supper. She will prime her new pen the same and give it in her abdomen. She will give 3 units fifteen minutes before her supper. She will need to have a bedtime snack and do not skip it in the evening. Three hours after your humalog dose she is at a greater risk of a low blood sugar at that time so she needs to eat a bedtime snack and do not skip this snack. Asked her to please call back and let us know that she received these new insulin changes for this week. documented in this encounter [facility] 08-30-2024 Telephone encounter Note Called pt to discuss her insulin change and received voicemail. Left her a message that Lucretia Villafana reviewed her blood sugars and would like her to increase her lantus in the evening to 17 units. She would also like her to start humalog a short acting insulin before her supper. She will prime her new pen the same and give it in her abdomen. She will give 3 units fifteen minutes before her supper. She will need to have a bedtime snack and do not skip it in the evening. Three hours after your humalog dose she is at a greater risk of a low blood sugar at that time so she needs to eat a bedtime snack and do not skip this snack. Asked her to please call back and let us know that she received these new insulin changes for this week. [facility] 08-17-2024 Miscellaneous Notes [employer] CALLED PATIENT. NO ANSWER. LEFT VOICEMAIL ASKING THE PATIENT TO CALL US TO GET SCHEDULED FOR HER 1-2 WEEK FOLLOW UP WITH LUCRETIA VILLAFANA AT THE PROVIDER'S REQUEST. LEFT NUMBER [phone] AND INSTRUCTED HER TO SELECT OPTION 3 TO REACH ONE OF OUR SCHEDULERS TO GET SCHEDULED. documented in this encounter [facility] 08-17-2024 Telephone encounter Note [employer] CALLED PATIENT. NO ANSWER. LEFT VOICEMAIL ASKING THE PATIENT TO CALL US TO GET SCHEDULED FOR HER 1-2 WEEK FOLLOW UP WITH LUCRETIA VILLAFANA AT THE PROVIDER'S REQUEST. LEFT NUMBER [phone] AND INSTRUCTED HER TO SELECT OPTION 3 TO REACH ONE OF OUR SCHEDULERS TO GET SCHEDULED. [facility] 08-17-2024 History of Present illness Narrative Reason for Appointment: Patient ID: Michael Weller is a 38 y.o. female who presents for Routine Visit Patient presents today for Return OB appointment. MEDICATIONS Current Outpatient Medications Medication Instructions Alcohol Swabs (Alcohol Prep Pad) 70 % pads 1 Pad, Topical, Daily, Use four times daily to check FSBS. Blood Glucose Monitoring Suppl ([employer] Glucometer) w/Device kit 1 kit, Does not [...] nursing note reviewed. Exam conducted with a stripper and printer present. Vitals: Estimated body mass index is [...] Matt Stapleton DO documented in this encounter [facility] 08-15-2024 History of Present illness Narrative Maternal- Medicine Consultation VIDEO Patient is present at work, provider present at [facility] HISTORY OF PRESENT ILLNESS: Michael [...] values to us weekly by e-mail to: [email or web address] or by fax to: [phone] Lucretia Villafana PA-C Maternal- Medicine Office phone: [phone] Lucretia Villafana PA-C 08/15/24 [id number] documented in this encounter [facility] 08-09-2024 Miscellaneous Notes Summary: M Blood Glucose Log & Insulin Dose Change Called and spoke with Michael regarding Bárbara Canas CNM reviewed BG log and changed insulin orders to Lantus insulin pen 10 Units in the evening daily. Verbalized understanding. documented in this encounter [facility] 08-09-2024 Telephone encounter Note Summary: MFM Blood Glucose Log & Insulin Dose Change Called and spoke with Michael regarding Bárbara Canas CNM reviewed BG log and changed insulin orders to Lantus insulin pen 10 Units in the evening daily. Verbalized understanding. [facility] 08-09-2024 History of Present illness Narrative [...] care for you: OB Provider Family Doctor Footwear Sales Coordinator Name: Dr. Matt Stapleton Name: No primary [...] 2009 CYST REMOVAL 2012 BACK TONSILLECTOMY 1992 Personal diabetes history: Gestational [...] demonstration Is there anything about your culture, latter day, or personal beliefs we need to know about to care for you: Other None Primary Language spoken: Vietnamese [22] Primary Language for learning: Vietnamese Are you currently in a relationship where you are physically hurt, threatened or made to fee afraid? [] Yes [] No Bleach Tester needed? [] Yes [] No Marital status/Living [...] where: Lower abdominal On thge following scale, [place] the number, which describes your current level [...] weekly Educational Level Masters Family issues stable Cultural/ethnic/orthodoxy influences denies Exercise approved by MD? Yes Current Exercise program walking Who prepares the meal Spouse Who purchase food at your home? Both Equipment use for cooking/food storage Has everything Food Assistance(Ex.WIC, [employer] [place]) Declined Dining out Yes Lunch everyday during [...] time 50 minutes. [facility] Instructions Noelle Johnston RN - 08/09/2024 [...] HOURS WHILE AWAKE [facility] History of Present illness Narrative Reason [...] nursing note reviewed. Exam conducted with a stripper and printer present. Vitals: Estimated body mass index is [...] times a day. [facility]. Pt to start 5units NPH and regular in am and pm. Pt given NST/BPP. Orders Placed This Encounter Procedures POCT urinalysis dipstick manually resulted Follow Up: Patient is to return to office in 2 week for routine OB appointment. Documented by Bisi Nixon LPN on behalf of: Matt Stapleton DO documented in this encounter [facility] 07-12-2024 History of Present illness Narrative Reason for Appointment: Patient ID: Michael Weller is a 38 y.o. female who presents for Routine Visit Patient presents today for Return OB appointment. MEDICATIONS Current Outpatient Medications Medication Instructions Alcohol Swabs (Alcohol Prep Pad) 70 % pads 1 Pad, Topical, Daily, Use four times daily to check FSBS. Blood Glucose Monitoring Suppl ([facility] Glucometer) w/Device kit 1 kit, Does not [...] nursing note reviewed. Exam conducted with a stripper and printer present. Vitals: Estimated body mass index is [...] Matt Stapleton DO documented in this encounter [facility] 06-20-2024 History of Present illness [...] nursing note reviewed. Exam conducted with a stripper and printer present. Vitals: Estimated body mass index is [...] of: ARIELLA Duran documented in this encounter [facility] 04-14-2024 History of Present illness [...] nursing note reviewed. Exam conducted with a stripper and printer present. Vitals: Estimated body mass index is [...] obtained without difficulty and [facility]. Orders Placed This [...] of: RAE Teixeira documented in this encounter [facility] 03-16-2024 History of Present illness [...] nursing note reviewed. Exam conducted with a stripper and printer present. Vitals: Estimated body mass index is [...] or undercooked meat, and stay away from [facility]. Patient has been consulted regarding any [...] Matt Stapleton DO documented in this encounter [facility] 02-16-2024 History of Present illness [...] or undercooked meat, and stay away from [facility]. Patient has also been advised to [...] Cathy Dick LPN documented in this encounter [facility] 01-05-2024 History of Present [...] Ketones, Urine NEGATIVE NEGATIVE mg/dl POC Specific [place], Urine 1.010 1.005 - 1.035 POC Blood, [...] pyelonephritis, Macrobid prescribed. She will take Azo [id number], acetaminophen, fluids, etc. Follow-up as needed. Patient [...] Davison 12:46 PM documented in this encounter [facility] Work Phone: 01-05-2024 Instructions Maryann Davison - 01/05/2024 11:45 AM EDT No signs of acute pyelonephritis, Macrobid prescribed. She will take Azo [id number], acetaminophen, fluids, etc. Follow-up as needed. Patient declined urine culture after counseling. documented in this encounter [facility] Work Phone: 09-01-2023 History of Present illness Narrative SKIN [...] symmetric hyperpigmented macules and papules throughout Small chirinos red papules throughout A/P: (D23.9) Dermatofibroma - [...] patient is seen and examined by Roula Hodge CNP and the following reflects his/her service. Scribed by Karolina Alcantara LPN /Gini Hanna MA I agree with the Chief Complaint, ROS, and Past Histories independently gathered by the clinical administrative support manager and the remaining scribed note accurately describes my personal service to the patient. Roula Hodge APRN.CNP September 01, 2023 11:26 AM Medical Decision Making: Problems: Moderate: 2+ stable chronic illnesses Risk: Low: Low risk from testing/treatment Medical Decision Making Level: 3 - Low documented in this encounter [facility] 07-22-2023 History of Present illness Narrative [...] 07/22/2023 3:01 PM documented in this encounter [facility] Work Phone: 04-27-2023 History of Present [...] 04/27/2023 4:18 PM documented in this encounter [facility] Work Phone: 03-04-2023 History of Present [...] Karolina Man DO documented in this encounter [facility] Work Phone: 02-19-2023 History of Present illness Narrative Michael Weller 37 y.o. SUBJECTIVE HPI Michael 37-year-old young lady who was seen today for evaluation of a possible attention deficit disorder difficulty at work at home. She has been having the symptoms since countersinker but was never diagnosed completely she is [...] 02/19/2023 11:36 AM documented in this encounter [facility] Work Phone: 10-16-2022 Note Discharge Summary PHYSICAL THERAPY Referral/Discharge Information: Date of Discharge: 10-16-22 Date of Last Visit: 09-06-21 Date of Evaluation: 09-06-21 Reason for Discharge: Failed to schedule and/or to keep follow-up appointment(s). Signatures Electronically signed by : Bisi Prabhakar PT [facility]; Oct 16 2022 10:12AM EST (Author) [facility] 07-02-2022 Evaluation note Encounter Date Diagnosis Assessment [...] no improvement of pain. Given return precautions. [facility] Other 12-05-2022 Chief complaint Narrative - Reported* [...] virtual visit to discuss anxiety follow up [id number] Work Phone: 1(826) 415-561008-11-2022 History of Present illness Narrative* Roual Hodge APRN.DISTRIBUTION CENTER MANAGER - 10/17/2021 12:40 PM EDT SKIN [...] symmetric hyperpigmented macules and papules throughout Small chirinos red papules throughout Left medial knee and [...] patient is seen and examined by Roula Hodge CNP and the following reflects his/her service. Scribed by Gini Hanna MA I agree with the Chief Complaint, ROS, and Past Histories independently gathered by the clinical administrative support manager and the remaining scribed note accurately describes my personal service to the patient. Roula Hodge APRN.CNP October 17, 2021 1:05 PM I spent a total of 15 minutes on the date of the service which included preparing to see the patient, [id number] patient care, completing clinical documentation, performing a medically appropriate examination, and counseling and educating the patient/family/caregiver. [facility] History of Present illness Narrative* MICHAEL [...] breast biopsy: right breast biopsy 2018 at [facility]- fibroepithelial lesion consistent with fibroadenoma * - breast surgery: no * - breast cancer:no * Menarche: 15 * AFLB: 20 * Menopause: no * HRT:no * Family history: both grandfathers with lung cancer * no history of breast or ovarian cancer [facility] Work Phone: 1(273) 122-192808-08-2022 History of Present illness Narrative* MICHAEL WELLER [...] breast biopsy: right breast biopsy 2018 at [facility]- fibroepithelial lesion consistent with fibroadenoma * - breast surgery: no * - breast cancer:no * Menarche: 15 * AFLB: 22 * Menopause: no * HRT:no * Family history: both grandfathers with lung cancer * no history of breast or ovarian cancer [facility] CarterStapleton Work Phone: 1(840) 207-825308-02-2022 Chief complaint Narrative - Reported* An interactive [...] visit to discuss insomnia, trazodone not helping [id number] Work Phone: 1(100) 338-305208-02-2022 Chief complaint Narrative - Reported* An interactive [...] to discuss insomnia, trazodone not helping [facility] Work Phone: 1(286) 377-589305-06-2022 [place], [place] NAME: MICHAEL WELLER DATE OF : MEDICAL REC#: [id number] CLAM DREDGE BOAT CAPTAIN: [id number] [facility], TRANSADMIT DATE: 07/12/2021 09:46:00 FLIGHT LINE SERVICE ATTENDANT DATE: 07/13/2021 21:00 DICTATING PHYSICIAN: MATT STAPLETON DICTATION DATE: 07/12/2021 12:00 OPERATIVE NOTE OPERATION DATE: 07/12/2021 PROCEDURE: Diagnostic laparoscopy. PREOPERATIVE DIAGNOSIS: Dyspareunia. POSTOPERATIVE DIAGNOSIS: Dyspareunia. ANESTHESIA: General. SURGEON: Matt Stapleton D.O. MATERIALS TECH: CLIFF Durán URINE OUTPUT: Yellow and clear. [...] Stapleton DO on 07/15/2021 03:07 PM EDT IFC Signed and Approved by: DR MATT STAPLETON . 07/15/2021 15:07:00[facility]12-27-2012 History general Narrative - Reported* Type Description Date Medical History 03-04-12 Pathology Report [facility] [place] History left hip surgery Surgical History tonsillectomy and adenoidectomy Surgical History cholecystectomy Surgical History wisdom teeth Surgical History tumor [facility] Other Evaluation note* Diagnosis Lentigines- Primary Other dyschromia Multiple benign nevi Benign neoplasm of skin, site unspecified Chirinos angioma Nevus, non-neoplastic Exposure to tanning bed, sequela Hx of malignant melanoma Personal history of malignant melanoma of skin Dermatofibroma Benign neoplasm of skin, site unspecified [facility] noteNo assessment information [facility]Detw[facility] Work Phone: Evaluation note* Diagnosis Abnormal mammogram Abnormal mammogram, unspecified documented in this encounter [facility] Work Phone: Evaluation note* Diagnosis Lump in female breast Lump or mass in breast documented in this encounter [facility] Work Phone: Evaluation note* Diagnosis Encephalopathy- Primary Unspecified encephalopathy Anxiety Anxiety state, unspecified Attention deficit hyperactivity disorder (ADHD), predominantly inattentive type documented in this encounter [facility] Work Phone: Evaluation note* Diagnosis Anxiety Anxiety state, unspecified documented in this encounter 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 Work Phone: Evaluation note* Diagnosis Dermatofibroma- Primary Benign neoplasm of skin, site unspecified Lentigines Other dyschromia Multiple benign nevi Benign neoplasm of skin, site unspecified Chirinos angioma Nevus, non-neoplastic Hx of malignant melanoma Personal history of malignant melanoma of skin documented in this encounter [facility] note* Diagnosis Onset Date Resolution Status UTI (urinary tract infection) acute [facility] Work Phone: Evaluation note* Diagnosis Acute lower UTI- Primary Urinary tract infection, site not specified Urine frequency documented in this encounter [facility] Work Phone: Evaluation note* Diagnosis Missed menses , unspecified gestational age Encounter for supervision of normal first in first trimester documented in this encounter [facility]* Diagnosis First trimester state, incidental [...] Nausea Nausea alone documented in this encounter [facility]* Diagnosis Diabetes mellitus screening Screening for diabetes mellitus 25 weeks gestation of Second trimester state, incidental Antepartum multigravida of advanced maternal age documented in this encounter [facility]* Diagnosis Third trimester state, incidental 28 weeks gestation of Multigravida of advanced maternal age in third trimester Gestational diabetes mellitus (GDM), antepartum, gestational diabetes method of control unspecified Elevated glucose tolerance test Impaired glucose tolerance test documented in this encounter [facility]* Diagnosis 31 weeks gestation of Third trimester state, incidental Gestational diabetes mellitus (GDM), antepartum, gestational diabetes method of control unspecified documented in this encounter [facility]* Diagnosis Gestational diabetes requiring insulin- Primary Abnormal maternal glucose tolerance, complicating , childbirth, or the puerperium, unspecified as to episode of care [facility]* Diagnosis Third trimester state, incidental 33 weeks gestation of documented in this encounter [facility]* Diagnosis Gestational diabetes mellitus (GDM) in third trimester, gestational diabetes method of control unspecified [facility] Diagnosis Insulin controlled gestational diabetes mellitus (GDM) in third trimester- Primary [facility] Diagnosis Insulin controlled gestational diabetes mellitus (GDM) in third trimester [facility]* Diagnosis Insulin controlled gestational diabetes mellitus (GDM) in third trimester documented [facility]* Diagnosis 35 weeks gestation of ([facility]) Third trimester ([facility]) state, incidental Excessive growth affecting management of , antepartum, single or unspecified fetus ([facility]) Multigravida of advanced maternal age in third trimester ([facility]) Insulin controlled gestational diabetes mellitus (GDM) in third trimester ([facility]) documented in this encounter [facility]* Diagnosis Third trimester ([facility]) state, incidental 36 weeks gestation of ([facility]) Excessive growth affecting management of , antepartum, single or unspecified fetus ([facility]) Insulin controlled gestational diabetes mellitus (GDM) in third trimester ([facility]) Antepartum multigravida of advanced maternal age ([facility]) documented in this encounter [facility]* Diagnosis Insulin controlled gestational diabetes mellitus (GDM) in third trimester- Primary documented [facility]* Diagnosis Neoplasm of skin- Primary Neoplasm of unspecified nature of bone, soft tissue, and skin Personal history of malignant melanoma of skin Multiple benign nevi of upper extremity, lower extremity, and trunk Lentigines Other dyschromia Chirinos angioma Nevus, non-neoplastic Seborrheic keratoses Other seborrheic keratosis documented [facility] encounter [facility] Diagnosis 6 weeks follow-up ([facility]) documented in this encounter [facility]* Diagnosis Encounter for medical examination to establish care- Primary History of heart murmur in childhood Generalized anxiety disorder Generalized anxiety disorder Attention deficit hyperactivity disorder (ADHD), predominantly inattentive type Screening for cholesterol level Screening for heart disease Screening for other and unspecified cardiovascular conditions Renal papillary necrosis Unspecified pyelonephritis documented in this encounter [facility] Healthcare[facility] note* Diagnosis Encounter for insertion of intrauterine contraceptive device (IUD) Encounter for insertion of Mirena IUD Encounter for initial prescription of vaginal ring hormonal contraceptive documented in this encounter [facility] Healthcare[facility] note* Diagnosis Well woman exam with routine gynecological exam Routine gynecological examination documented in this encounter [facility] HealthcareHistory of Present illness Narrative* The last [...] area gets bumped. 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 [...] for walks, read books. No regular exercise. [employer] 200 Work Phone: History of Present illness [...] screening reviewed and current. * Breast cancer screening:2019. * Metabolic screening: lipid profile performed within [...] area gets bumped. 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 [...] walks, read books. No regular exercise. [facility] Work Phone: History of Present illness [...] area gets bumped. 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 [...] for walks, read books. No regular exercise. [id number] 200 Work Phone: History of Present illness [...] discharge from lumps. 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 [...] past, but this made her sleep worse. [id number] 200 Work Phone: History of Present illness [...] discharge from lumps. 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 [...] but this made her sleep worse. [facility] Work Phone: History of Present illness [...] urology for painful intercourse. Planning physical therapy. JE[facility][id number][facility]Bxiewvif 200 Work Phone: History of Present illness [...] for painful intercourse. Planning physical therapy. [facility] Work Phone: History of Present illness [...] been able to have these done yet. [id number]-[id number] 200 Work Phone: Instructions* Name Dates Details Instructions not documented FE-[id number]-Pzkcybof Work Phone: InstructionsNot on filedocumented in this encounter [facility] filed[facility] in this [facility] filedocumented in this [facility]ed in [facility] filed[facility]ed in [facility] Family History Unknown Family Member Name [...] [place] [address] [facility] [address] [place] [address] Referral ID Status Reason Start Date Expiration Date Visits Requested Visits Authorized [id number] Pending Review Perform Procedure 3 06/17/2023 1 1 Additional Source Comments INFORMATION SOURCE (unrecogn ized section and content) DATE CREATED AUTHOR 07/19/2021 [facility] DATE CREATED AUTHOR AUTHOR'S ORGANIZ ATION 10/16/2021 [facility] DATE CREATED AUTHOR AUTHOR'S ORGANIZ ATION 03/02/2022 [facility] DATE CREATED AUTHOR AUTHOR'S ORGANIZ ATION 10/17/2022 [facility] DATE CREATED AUTHOR AUTHOR'S ORGANIZ ATION 12/11/2022 [facility] DATE CREATED AUTHOR AUTHOR'S ORGANIZ ATION 07/25/2023 [facility] DATE CREATED AUTHOR AUTHOR'S ORGANIZ ATION 11/14/2023 [facility] DATE CREATED AUTHOR AUTHOR'S ORGANIZ ATION 01/06/2024 Urgent Care DATE CREATED AUTHOR AUTHOR'S ORGANIZ ATION 03/10/2024 [facility] DATE CREATED AUTHOR AUTHOR'S ORGANIZ ATION 08/16/2024 [facility] DATE CREATED AUTHOR AUTHOR'S ORGANIZ ATION 10/29/2024 [facility] DATE CREATED AUTHOR AUTHOR'S ORGANIZ ATION 11/12/2024 [facility] EPIC Reason for Visit (unrecogniz ed section and content) Reason Comments Full Body Skin Check Specialty Diagnoses / Procedures Referred By Kezia gooden Referred To Contact Radiology Diagnoses Abnormal mammogram Procedures BI mammo bilateral diagnostic tomosynthesis [place] [address] [facility] [address] [place] [address] Referral ID Status Reason Start Date Expiration Date Visits Requested Visits Authorized [id number] Pending Review Perform Procedure 12/03/2022 06/01/2023 1 1 Specialty Diagnoses / Procedures Referred By Contac t Referred To Contact Radiology Diagnoses Lump in female breast Procedures BI [place] [address] [facility] [address] [place] [address] Referral ID Status Reason Start Date Expiration Date Visits Requested Visits Authorized [id number] Pending Review Perform Procedure 3 06/17/2023 1 1 Reason Comments New Patient Visit NPV- ADHD Specialty Diagnoses / Procedures Referred By Contac t Referred To Contact Neurology Diagnoses Anxiety Procedures DE OFFICE/OUTPATIENT NEW HIGH MDM 60-74 [place] [address] [facility] [address] [place] [address] Jhonny Issa MD [address] [facility], [address] [place] [address] Referral ID Status Reason Start Date Expiration Date Visits Requested Visits Authorized [id number] Pending Review Specialty Services Required 12/03/2022 06/01/2023 1 1 Reason Comments Follow-up 3 month FU. Reason Comments Encephalopathy FU. Reason Comments UTI 2 days Reason Comments Amenorrhea Reason Comments Routine Visit Reason Comments Gestational Diabetes Specialty Diagnoses / Procedures Referred By Contac t Referred To Contact Maternal and Medicine Diagnoses Gestational diabetes mellitus (GDM) in third trimester, gestational diabetes method of control unspecified Matt Stapleton, DO [address] [place] [address] [place] [address] Phone: tel: fax: Maternal- Medicine at [facility] [address] [place] [address] Phone: tel: fax: Referral ID Status Reason Start Date Expiration Date Visits Requested Visits Authorized [id number] Pending Review Specialty Services Required 08/03/2024 08/03/2025 1 1 Reason Comments Care Reason Comments Med Refill Reason Comments Contraception Reason Comments Well Women Visit Source Comments (unrecognize d section and content) In the event this informatio n is protected by the Federal Confidentiality of Alcohol and Drug Abuse Patient Records regulations: The Federal rules restrict any use of the information to criminally investigate or prosecute any alcohol or drug abuse patient.[facility] the event this information is protected by the Federal Confidentiality of Alcohol and Drug Abuse Patient Records regulations: The Federal rules restrict any use of the information to criminally investigate or prosecute any alcohol or drug abuse patient.[facility] Hospital[facility] the event this information is protected by the Federal Confidentiality of Alcohol and Drug Abuse Patient Records regulations: The Federal rules restrict any use of the information to criminally investigate or prosecute any alcohol or drug abuse patient.[facility] Care Teams (unrecognized sec tion and content) Practice Billing Associate Relationship Specialty Start Date End Date Danielle Infante [address] [place] [address] PCP - General Family Practice 06/10/16 Team Status: Inactive Member Role Status Dates Danielle Infante DO Primary Care Provider Active Kp Alvares , DO [facility] Attending Provider Active Team Status: Active Member Role Status Dates Danielle Infante DO Primary Care Provider Active Team Status: Inactive Member Role Status Dates Danielle Infante , Primary Care Provider Active Bolivar Sherman , [employer] Attending Provider Activ e Practice Billing Associate Relationship Specialty Start [place] [address] [address] PCP - General Family Medicine 10/29/22 Practice Billing Associate Relationship Specialty [place] [address] [address] PCP - General Family Medicine 10/29/22 Practice Billing Associate Relationship Specialty Start [place] [address] [address] PCP - General Family Medicine 10/29/22 Practice Billing Associate Relationship Specialty [place] [address] [address] PCP - General Family Medicine 10/29/22 Jhonny Issa MD [address] [facility], [address] [address] Consulting Physician Neurology 02/19/23 Practice Billing Associate Relationship Specialty [place] [address] [address] PCP - General Family Medicine 10/29/22 Jhonny Issa MD [address] [facility], [address] [address] Consulting Physician Neurology 02/19/23 Practice Billing Associate Relationship Specialty [place] [address] [address] PCP - General Family Medicine 10/29/22 [place] [address] [address] PCP - MMO ACO PCP 03/09/23 Jhonny Issa MD [address] [facility], [address] [address] Consulting Physician Neurology 02/19/23 Practice Billing Associate Relationship Specialty Start Date End Date Danielle Infante DO [address] [address] PCP - General Family Medicine 06/10/16 Team [...] September 05, 2023 End: September 05, 2023 Practice Billing Associate Relationship Specialty Start Date End Date Jhonny Issa MD [address] [facility], [address] [address] Consulting Physician Neurology 02/19/23 Practice Billing Associate Relationship Specialty Start Date End Date Danielle Infante DO [address] [place] [address] PCP - General Family Medicine 07/15/22 Practice Billing Associate Relationship Specialty Start Date End Date Danielle Infante DO [address] [place] [address] PCP - General Family Medicine 07/15/22 Practice Billing Associate Relationship Specialty Start Date End Date Danielle Infante, DO [address] [place] [address] PCP - General Family Medicine 07/15/22 Practice Billing Associate Relationship Specialty Start Date End Date Danielle Infante DO [address] [place] [address] PCP - General Family Medicine 07/15/22 Practice Billing Associate Relationship Specialty Start Date End Date Danielle Infante DO [address] [place] [address] PCP - General Family Medicine 07/15/22 Practice Billing Associate Relationship Specialty Start Date End Date Danielle Infante DO [address] [place] [address] PCP - General Family Medicine 07/15/22 Team Status: Inactive Member Role Status Dates Matt Stapleton DO Attending Provider Active Start : March 08, 2024 End: March 08, 2024 Practice Billing Associate Relationship Specialty Start Date End Date Danielle Infante DO [address] [place] [address] PCP - General Family Medicine 07/15/22 Practice Billing Associate Relationship Specialty Start Date End Date Danielle Infante DO [address] [place] [address] PCP - General Family Medicine 07/15/22 Practice Billing Associate Relationship Specialty Start Date End Date Danielle Infante, DO [address] [place] [address] PCP - General Family Medicine 07/15/22 Practice Billing Associate Relationship Specialty Start Date End Date Danielle Infante, DO [address] [place] [address] PCP - General Family Medicine 07/15/22 Practice Billing Associate Relationship Specialty Start Date End Date Danielle Infante, DO [address] [place] [address] PCP - General Family Medicine 07/15/22 Practice Billing Associate Relationship Specialty Start Date End Date Danielle Infante, DO [address] [place] [address] PCP - General Family Medicine 07/15/22 Practice Billing Associate Relationship Specialty Start Date End Date Danielle Infante, DO [address] [place] [address] PCP - General Family Medicine 07/15/22 Practice Billing Associate Relationship Specialty Start Date End Date Danielle Infante, DO [address] [place] [address] PCP - General Family Medicine 07/15/22 Practice Billing Associate Relationship Specialty Start Date End Date Danielle Infante, DO [address] [place] [address] PCP - General Family Medicine 07/15/22 Practice Billing Associate Relationship Specialty Start Date End Date Butch Danielle Collier, DO [address] [place] [address] PCP - General Family Medicine 07/15/22 Practice Billing Associate Relationship Specialty Start Date End Date OsvaldonobleDanielle DO [address] [place] [address] PCP - General Family Medicine 07/15/22 Practice Billing Associate Relationship Specialty Start Date End Date Danielle Infante, DO [address] [place] [address] PCP - General Family Medicine 07/15/22 Practice Billing Associate Relationship Specialty Start Date End Date Danielle Infante, DO [address] [place] [address] PCP - General Family Medicine 07/15/22 Practice Billing Associate Relationship Specialty Start Date End Date Danielle Infante, DO [address] [place] [address] PCP - General Family Medicine 07/15/22 Practice Billing Associate Relationship Specialty Start Date End Date Danielle Infante, DO [address] [place] [address] PCP - General Family Medicine 06/10/16 Practice Billing Associate Relationship Specialty Start Date End Date Danielle Infante, DO [address] [place] [address] PCP - General Family Medicine 07/15/22 Practice Billing Associate Relationship Specialty Start Date End Date Danielle Infante, DO [address] [place] [address] PCP - General Family Medicine 07/15/22 Practice Billing Associate Relationship Specialty Start Date End Date Marquita Kellogg MD [address] [place] [address] PCP - General Family Medicine 11/01/24 Practice Billing Associate Relationship Specialty Start Date End Date Danielle Infante DO [address] [place] [address] PCP - General Family Medicine 07/15/22 10/31/24 Practice Billing Associate Relationship Specialty Start Date End Date Marquita Kellogg MD [address] [place] [address] PCP - General Family Medicine 11/01/24 Practice Billing Associate Relationship Specialty Start Date End Date Marquita Kellogg MD [address] [place] [address] PCP - General Family Medicine 11/01/24 Practice Billing Associate Relationship Specialty Start Date End Date Marquita Kellogg MD [address] [place] [address] PCP - General Family Medicine 11/01/24 Goals (unrecognized section and content) Goals may [...] ON THE PRIMARY CLINICAL RECORDS. [facility] [employer] [facility]. provides no warranty or guarantee of the accuracy or completeness of information in this document.
--- OUTSIDE RECORDS SUMMARY | 2024-11-28 21:20 | XMS_ITS | Encounter Summary ---
Author Organization [facility] Address [address] [place] [address] Care Team Providers Care Manufacturing Plant Technician Name Role Phone Juaquin Rae DO Primary Care Provider [phone] Marquita Kellogg MD Primary Care Provider Encounter Details Date Type Department Care Team (Late st Contact Info) Description 09/06/2024 Abstract [facility] [address] [place] [id number] Matt Stapleton DO [address] [place], [place] [id number] Social History Tobacco Use Types Packs/Day Years [...] Family Medicine [address] [place] [id number] Ivet Tovar NP [address] [place] [address] 12/11/2025 4:00 PM EDT Procedure Visit [facility] [address] [place] [address] Matt Stapleton DO [address] [place] [address] documented as of this encounter Goals Goal Patient Goal Type Associated Problems Recent Progress Patient-Stated? Author Reminders Care Plan OB Reminders No Open Scheduling, Background documented as of this encounter Visit Diagnoses Not on filedocumented in this encounter Additional Health Concerns Active Problems Noted Date Diagnosed Date OB Reminders 04/14/2024 documented as of this encounter Care Teams Manufacturing Plant Technician Relationship Specialty Start Date End Date Juaquin Rae DO [address] [facility] [address] [place] [address] PCP - General Family Medicine 07/15/22 10/31/24 Marquita Kellogg MD [address] [place] [address] PCP - General Family Medicine 11/01/24 documented as of this encounter
--- OUTSIDE RECORDS SUMMARY | 2024-11-28 21:20 | XMS_ITS | Clinical Summary ---
Author Organization [facility] Address [address] [place] [address] Phone Care Team Providers Care Metal Mockup Maker Name Role Phone Trever Lee MD Unavailable [phone] Allergies Active Allergy Reactions Criticality Noted Date [...] (1 of 1 - Standard series) 10/26/1988 Hepatitis C Screening 10/26/2005 Hepatitis B Vaccines (1 of 3 - 19+ 3-dose series) 10/26/2006 HPV/Cotest 10/26/2008 DTaP/Tdap/Td Vaccines (1 - Tdap) 10/26/2009 HPV Vaccines (1 - 3-dose standard series) 10/26/2014 Yearly Adult Physical 10/20/2024 10/20/2023 , 09/01/2022, 09/01/2022, Additional history exists COVID-19 Vaccine ( season) 2024 10/25/2020, 10/04/2020 Influenza Vaccine (#1) 2024 Lipid Panel 04/23/2025 [...] EST) Cholesterol 135 0 - 199 mg/dL [facility] Comment: . AGE DESIRABLE BORDERLINE HIGH [...] prior to Metamizole dosing. HDL 34.0(A) mg/dL [facility] Comment: . AGE VERY LOW LOW NORMAL HIGH 0-19 Y < 35 < 40 40-45 ---- 20-24 Y ---- < 40 >45 ---- >24 Y ---- < 40 40-60 >60 . Cholesterol/HDL Ratio 4.0 [facility] Comment: REF VALUES DESIRABLE < 3.4 HIGH RISK > 5.0 LDL 70 0 - 99 mg/dL [facility] Comment: . NEAR BORD AGE DESIRABLE OPTIMAL HIGH HIGH VERY HIGH 0-19 Y 0 - 109 --- 110-129 >/= 130 ---- 20-24 Y 0 - 119 --- 120-159 >/= 160 ---- >24 Y 0 - 99 100-129 130-159 160-189 >/=190 . VLDL 31 0 - 40 mg/dL [facility] Triglycerides 154(H) 0 - 149 mg/dL [facility] Comment: . AGE DESIRABLE BORDERLINE HIGH [...] EST 04/23/2020 11:14 AM EST Rafaela Garrido MUSEUM DIRECTOR-KAI [facility] LAB BLOOD ORDERABLES F inal Result [facility] from Last 3 Months or Most Recently Relevant to Health Maintenance Insurance [facility] Care Teams Metal Mockup Maker Relationship Specialty Start Date End Date Trever Lee MD [address] [facility], [address] [place] [address] Consulting Physician Neurology 02/19/23
--- OUTSIDE RECORDS SUMMARY | 2024-11-28 21:20 | XMS_ITS | Encounter Summary ---
Author Organization [facility] Address [address] [place] [address] Phone Care Team Providers Care Forming Fixer Name Role Phone Trever Lee MD Unavailable [phone] Gina Man DO Unavailable Encounter Details Date Type Department Care Team (Late st Contact Info) Description 08/11/2023 Patient Risk Score ACO Care Management [address] [place] [address] Social History Tobacco Use Types [...] documented as of this encounter Care Teams Forming Fixer Relationship Specialty [place] [address] [place], [place] [id number] PCP - MMO ACO PCP 03/09/23 10/07/23 Trever Lee MD [address] [facility], [address] [place] [address] Consulting Physician Neurology 02/19/23 documented as of this encounter
--- OUTSIDE RECORDS SUMMARY | 2024-11-28 21:20 | XMS_ITS | Clinical Summary ---
Author Organization [facility] Address [id number] [address] [place] [address] Care Team Providers Care Basket Hand Weaver Name Role Phone Unavailable Primary Care Provider [...] pen injection. 100 each 1 Active insulin glargine (LANTUS SOLOSTAR U-100 INSULIN) 100 unit/mL (3 mL) insulin penIndications:Ins ulin controlled gestational diabetes mellitus (GDM) in third trimester Inject 17 units, subq, every evening. Prime with 2 units before each injection. 5 Active insulin lispro (HumaLOG KwikPen Insulin) 100 unit/mL insulin pen Inject 3 units before dinner. Prime with two units. 15 mL 3 5 Active blood sugar diagnostic (glucose blood) stripIndications:I nsulin controlled gestational diabetes mellitus (GDM) in third trimester Blood glucose strips per insurance preference. Use 1 strip 4 to 5 times per day. 100 strip 5 Active blood-glucose meter miscIndications:In sulin controlled gestational diabetes mellitus (GDM) in third trimester Meter per insurance preference. Use to test blood sugars 4 to 5 times per day. 1 each 5 Active lancets 33 gauge miscIndications:In sulin controlled gestational diabetes mellitus (GDM) in third trimester Lancets per insurance preference. Use one lancet 4 to 5 times per day. 100 each 5 Active Active Problems Problem Noted Date Diagnosed Date Gestational diabetes requiring insulin 5 Estimated Date of Delivery Comme nts Yes 10/01/2024 Based on Ultraso und Encounters Date Type Department Care Team Description 09/12/2024 Orders Only Maternal- Medicine at [facility] [address] [place] [phone] Shira Ospina, IVONNE Insulin controlled gestational diabetes mellitus (GDM) in third trimester (Primary Dx) 09/02/2024 Telephone Maternal- Medicine at [facility] [address] [place] [address] Shira Ospina LD 08/30/2024 Telephone Maternal- Medicine at [facility] [address] [place] [address] Sherin Zaragoza RN 08/30/2024 Orders Only Maternal- Medicine at [facility] [address] [place] [address] Lucretia Art, KIYA Insulin controlled gestational diabetes mellitus (GDM) in third trimester 08/30/2024 Orders Only Maternal- Medicine at [facility] [address] [place] [address] Lucretia Art PA-C Insulin controlled gestational diabetes mellitus (GDM) in third trimester from Last 3 Months Family History Medical [...] - Tdap) 10/26/2006 COVID-19 Vaccine ( season) 2024, 10/04/2020 Influenza Vaccine 11/07/2024 Pap Smear 10/19/2026 10/20/2023 Medical Devices Not on file Insurance [employer] Member Subscriber Plan / Payer (Ef fective 2024-Present) Name:Jonna Weller Relation to Subscriber:Self Name:Jonna Weller Payer ID:Not on file Type:Not on file Address: [address] [place] [id number] [employer]
--- OUTSIDE RECORDS SUMMARY | 2024-11-28 21:20 | XMS_ITS | Encounter Summary ---
Author Organization [facility] Address [address] [place] [address] Phone Care Team Providers Care Bus Driver/Monitor Name Role Phone Trever Lee MD Unavailable [phone] Gina Man DO Unavailable Encounter Details Date Type Department Care Team (Late st Contact Info) Description 07/11/2023 [place] [facility] [place] [address] [place] [address] [place] [address] Social History Tobacco Use Types [...] documented as of this encounter Care Teams Bus Driver/Monitor Relationship Specialty [place] [address] [facility] [address] [place] [address] PCP - MMO ACO PCP 03/09/23 10/07/23 Trever Lee MD [address] [facility], [address] [place] [address] Consulting Physician Neurology 02/19/23 documented as of this encounter
--- OUTSIDE RECORDS SUMMARY | 2024-11-28 21:20 | XMS_ITS | Encounter Summary ---
Author Organization [facility] Address [address] [place] [address] Care Team Providers Care Adobe Cq Developer Name Role Phone Marquita Kellogg MD Primary Care Provider [phone] Encounter Details Date Type Department Care Team (Late Contact Info) Description 11/28/2024 Bamboo flowsheet [facility] [address] [place] [phone] Matt Stapleton DO [address] [place], [place] [id number] Social History Tobacco Use Types Packs/Day Years [...] Department Care Team (Late Contact Info) Description 01/03/2025 2:20 PM EDT Office Visit [facility] [place] [facility] [address] [place] [phone] Ivet Tovar NP [address] [place] [address] 12/11/2025 4:00 PM EDT Procedure Visit [facility] [address] [place] [phone] Matt Stapleton DO [address] [facility] [place] [address] documented as of this encounter Goals Goal Patient Goal Type Associated Problems Recent Progress Patient-Stated? Author Reminders Care Plan OB Reminders No Open Scheduling, Background documented as of this encounter Visit Diagnoses Not on filedocumented in this encounter Additional Health Concerns Active Problems Noted Date Diagnosed Date OB Reminders 04/14/2024 documented as of this encounter Care Teams Adobe Cq Developer Relationship Specialty Start Date End Date Marquita Kellogg MD [address] [place] [address] PCP - General Family Medicine 11/01/24 documented as of this encounter
--- OUTSIDE RECORDS SUMMARY | 2024-11-28 21:20 | XMS_ITS | Encounter Summary ---
Author Organization [facility] Address [address] [place] [address] Phone Care Team Providers Care Pest Controller Name Role Phone Rafaela Garrido Primary Care Provider Unavailable Trever Lee MD Unavailable Gina Man DO Unavailable Encounter Details Date Type Department Care Team (Late st Contact Info) Description 10/16/2022 Scanned Document [facility] [address] [place] [address] Conversion, Onbase Social History Tobacco Use Types [...] on filedocumented in this encounter Care Teams Pest Controller Relationship Specialty Start Date End Date Rafaela Garrido APRN-CNP PCP - General 07/06/18 10/28/22 [place] [address] [facility] [address] [place] [address] PCP - MMO ACO PCP 03/09/23 10/07/23 Trever Lee MD [address] [facility], [address] [place] [address] Consulting Physician Neurology 02/19/23 documented as of this encounter
--- OUTSIDE RECORDS SUMMARY | 2024-11-28 21:20 | XMS_ITS | Encounter Summary ---
Author Organization [facility] Address [address] [place] [address] Phone Care Team Providers Care Services Executive Name Role Phone Rafaela Garrido Primary Care Provider Unavailable Rafaela Garrido Unavailable Unava ilable Trever Lee MD Unavailable Gina Man DO Unavailable Encounter Details Date Type Department Care Team (Late st Contact Info) Description 09/08/2022 Patient Risk Score [facility] [address] [place] [phone] Social History Tobacco Use Types Packs/Day Years [...] on filedocumented in this encounter Care Teams Services Executive Relationship Specialty Start Date End Date Rafaela Garrido APRN-CNP PCP - General 07/06/18 10/28/22 Rafaela Garrido APRN-CNP Office Address Unavailable as of 08/07/2022 PCP - MMO ACO PCP 03/09/21 10/06/22 [place] [address] [place] [address] PCP - MMO ACO PCP 03/09/23 10/07/23 Trever Lee MD [address] [facility], [address] [place] [address] Consulting Physician Neurology 02/19/23 documented as of this encounter
--- OUTSIDE RECORDS SUMMARY | 2024-11-28 21:20 | XMS_ITS | Encounter Summary ---
Author Organization [facility] Address [address] [place] [address] Phone Care Team Providers Care Electrical/Instrument Technician Name Role Phone Trever Lee MD Unavailable Gina Man DO Unavailable Encounter Details Date Type Department Care Team (Late st Contact Info) Description 02/20/2023 Scanned Document [facility] [address] [facility] [address] [place] [address] Trever Lee MD [address] [facility], [facility] [address] [place], [place] [phone] Social History Tobacco Use Types Packs/Day Years [...] documented as of this encounter Care Teams Electrical/Instrument Technician Relationship Specialty [place] [address] [facility] [address] [place], [place] [id number] PCP - MMO ACO PCP 03/09/23 10/07/23 Trever Lee MD [address] [facility], [facility] [address] [place] [address] Consulting Physician Neurology 02/19/23 documented as of this encounter
[2024-12-02 16:09] LABS: Age Gdln ACOG Testing Note (.); IGP, Aptima HPV, rfx 16/18,45 Note (.)
== END 2024-11-28 21:17 | disposition home or self-care (01) ==
LOC: LAB 21:16
PROVIDERS: Visit Provider Obstetrics & Gynecology
DX: Z01.419 Encounter for gynecological examination (general) (routine) without abnormal findings (principal)
CPT/HCPCS: 87624; 88175